=== PATIENT | male | born 1950 | race Caucasian/White ===

== ENCOUNTER 2017-07-16 15:14 | Inpatient (IN) | payer SELFPAY ==
[2017-07-16 15:39] VITALS: BMI 25.5
[2017-07-16] MEDS ORDERED: FOLIC ACID INJECTION - 1 MG, THIAMINE HCL 100 MG, MULTIVIT INJECTION ADULT 10 ML in SOD... IVPB ONE (16:18)
--- NOTE | 2017-07-16 16:27 | PDOC ---
History of Present Illness - General Chief Complaint: Substance Abuse Stated Complaint: INTOX Time Seen by Provider: 07/16/17 15:19 History Source: Patient, EMS Exam Limitations: No Limitations - History of Present Illness Initial Comments: 07/16/17 16:23 66-year-old male who denies past medical history except for alcohol abuse presents to the ED for evaluation of facial and head injury. Patient states has been drinking sleeping in a nearby park when he woke up this morning bleeding from his chin and his left side of his face. Patient states does not recall the incident and states unsure of his last tetanus. Patient states does not take any blood thinners and denies any headache, dizziness nausea, visual changes, or chest pain presently. Timing/Duration: unsure Severity: moderate Associated Symptoms: reports: denies symptoms Past History - Travel Traveled outside of the country in the last 30 days: No Close contact w/someone who was outside of country & ill: No - Past Medical History Allergies/Adverse Reactions: Allergies Allergy/AdvReac Type Severity Reaction Status Date / Time No Known Allergies Allergy Verified 07/16/17 15:34 Home Medications: Ambulatory Orders Unobtainable [Unobtainable] 07/16/17 Cardiac Disorders: Yes (cardiomegaly) HTN: Yes - Psycho/Social/Smoking Cessation Hx Suicidal Ideation: No Smoking History: Former smoker Have you smoked in the past 12 months: No Information on smoking cessation initiated: No Hx Alcohol Use: Yes Drug/Substance Use Hx: Yes (etoh) Substance Use Type: Alcohol Patient Lives Alone: Yes Lives with/in: lives alone Review of Systems - Review of Systems Able to Perform ROS?: Yes Constitutional: No: Symptoms Reported HEENTM: No: Symptoms Reported Respiratory: No: Symptoms reported Cardiac (ROS): No: Symptoms Reported ABD/GI: No: Symptoms Reported : No: Symptoms Reported Musculoskeletal: No: Symptoms Reported Integumentary: Yes: Other (cut to chin) Neurological: No: Symptoms reported Endocrine: No: Symptoms Reported Hematologic/Lymphatic: No: Symptoms Reported *Physical Exam - Vital Signs Last Vital Signs Temp Pulse Resp BP Pulse Ox 97.9 F 95 H 19 157/92 98 07/16/17 15:25 07/16/17 15:25 07/16/17 15:25 07/16/17 15:25 07/16/17 15:25 - Physical Exam General Appearance: Yes: Disheveled, Alcohol on Breath, Intoxicated. No: Apparent Distress HEENT: positive: EOMI, JESSICA, TMs Normal, Pharynx Normal (dry) Neck: positive: Supple Respiratory/Chest: positive: Lungs Clear, Normal Breath Sounds. negative: Respiratory Distress, Accessory Muscle Use Cardiovascular: positive: Regular Rhythm, Regular Rate. negative: Murmur Gastrointestinal/Abdominal: positive: Soft. negative: Tenderness Musculoskeletal: negative: Vertebral Tenderness Extremity: positive: Normal Capillary Refill, Normal Range of Motion. negative : Normal Inspection (abrasion to bilateral knees), Tender Integumentary: positive: Swelling, Ecchymosis (to anterior aspects of bi patellas. no deformity, Lrom, or crepitus), Other (noted 3cm linear laceration under chin. Noted superficial laceration to lateral aspect of left eye. No crepitus or deformity. No entrapment.) Neurologic: positive: Fully Oriented, Alert, Motor Strength 5/5 Deep Tendon Reflexes: Knee (L): 2+, Knee (R): 2+ Procedures - Laceration/Wound Repair Face Wound Length: to 2.5 cm Wound Explored: clean Wound's Depth, Shape: superficial, linear Irrigated w/ Saline: Yes Betadine Prep: Yes Anesthesia: 1% Lidocaine Amount of Anesthetic (ccs): 2 Wound Repaired With: Sutures Suture Size/Type: 4:0 Number of Sutures: 4 (absorbable) Layer Closure: No ED Treatment Course - LABORATORY CBC & Chemistry Diagram: 07/19/17 06:15 07/19/17 06:15 - RADIOLOGY Radiology Studies Ordered: Category Date Time Status CERVICAL SPINE CT W/O CONTR [CT] Stat CT Scan 07/16/17 16:[address] W/O CONTRAST [CT] Stat CT Scan 07/16/17 16:[address] WITHOUT CONTRAST [CT] Stat CT Scan 07/16/17 16:17 Ordered CHEST X-RAY PORTABLE* [RAD] Stat Radiology 07/16/17 16:18 Ordered Medical Decision Making - Medical Decision Making 07/16/17 16:38 Intoxicated patient with no previous visit denies medical history presenting with facial and extremity injury which patient is unable to recall. Patient on exam is disheveled intoxicated and has no neuro changes. Patient was ordered for head, cervical, facial CT along with CBC, comp, magnesium, urinalysis urine drug toxicology, banana bag and tetanus. 07/16/17 18:04 Laboratory Tests 07/16/17 07/16/17 07/16/17 16:22 16:22 16:22 WBC 6.1 Hgb 13.5 Hct 39.3 Plt Count 90 L Neutrophils % 83.6 H Sodium 137 Potassium 4.4 Chloride 101 Carbon Dioxide 26 BUN 5 L Creatinine 0.9 Random Glucose 133 H Calcium 8.2 L AST 67 H ALT 41 Creatine Kinase 202 CK-MB (CK-2) 3.783 H Troponin I < 0.02 Urine Blood 2+ H Ur Leukocyte Esterase Negative Urine RBC <1 Urine WBC 1 Opiates Screen Methadone Screen Barbiturate Screen Phencyclidine Screen Ur Amphetamines Screen MDMA (Ecstasy) Screen Benzodiazepines Screen Cocaine Screen U Marijuana (THC) Screen 07/16/17 16:22 WBC Hgb Hct Plt Count Neutrophils % Sodium Potassium Chloride Carbon Dioxide BUN Creatinine Random Glucose Calcium AST ALT Creatine Kinase CK-MB (CK-2) Troponin I Urine Blood Ur Leukocyte Esterase Urine RBC Urine WBC Opiates Screen Negative Methadone Screen Negative Barbiturate Screen Negative Phencyclidine Screen Negative Ur Amphetamines Screen Negative MDMA (Ecstasy) Screen Negative Benzodiazepines Screen Negative Cocaine Screen Negative U Marijuana (THC) Screen Negative Chest x-ray shows no acute findings. Pt states normally goes to [facility] and was in a rehab for etoh a few months ago. 07/16/17 19:08 Lac repair done with Medical student without difficulty, Steve Navarrete. After completion of repair pt states pain to bilateral rib region. On exam tender from 3-5th ribs suzy anterior of MAL. Pt ordered for rib xray. Pt endorsed to PATTI Schaeffer to review CT reports. *DC/Admit/Observation/Transfer Diagnosis at time of Disposition: Abuse, drug or alcohol, Thrombocytopenia Withdrawal symptoms, alcohol Qualifiers: Complication of substance-induced condition: uncomplicated Qualified Code(s): F10.230 - Alcohol dependence with withdrawal, uncomplicated Head trauma Qualifiers: Encounter type: initial encounter Qualified Code(s): S09.90XA - Unspecified injury of head, initial encounter
[2017-07-16 16:36] LABS: BASOPHIL 0.2 % (0-2.0); EOSINOPHIL 0.1 % (0-4.5); MCHC 34.2 g/dl (32.0-35.9); MEAN CELL VOLUME 93.4 fl (80-96); MEAN PLT VOLUME 6.2 fl (7.5-11.1); NEUTROPHILS 83.6 % (42.8-82.8); PLATELET COUNT 90 K/MM3 (134-434); RDW 15.5 % (11.9-15.9); WHITE BLOOD COUNT 6.1 K/mm3 (4.0-10.0)
[2017-07-16 16:40] LABS: URINE APPEARANCE CLEAR; URINE BILIRUBIN NEGATIVE (NEGATIVE); URINE BLOOD 2+ (NEGATIVE); URINE COLOR STRAW; URINE GLUCOSE (UA) NEGATIVE (NEGATIVE); URINE KETONE NEGATIVE (NEGATIVE); URINE LEUK ESTERASE NEGATIVE (NEGATIVE); URINE NITRITE NEGATIVE (NEGATIVE); URINE PROTEIN NEGATIVE (NEGATIVE); URINE UROBILINOGEN NEGATIVE mg/dL (0.2-1.0)
[2017-07-16 16:59] LABS: URINE MARIJUANA THC NEGATIVE ng/ml (CUTOFF=50)
[2017-07-16 17:11] LABS: ALBUMIN 3.2 g/dl (3.4-5.0); ANION GAP 10 (8-16); CALCIUM 8.2 mg/dL (8.5-10.1); CO2 26 mmol/L (21-32); CREATININE 0.9 mg/dL (0.7-1.3); GLUCOSE,RANDOM 133 mg/dL (74-106); MAGNESIUM 2.2 mg/dL (1.8-2.4); SGOT/AST 67 U/L (15-37); SGPT/ALT 41 U/L (12-78)
[2017-07-16 17:16] LABS: ALK PHOS 66 U/L (45-117); BILIRUBIN,TOTAL 0.6 mg/dL (0.2-1.0); CPK 202 IU/L (39-308); TOT PROT 7.3 g/dl (6.4-8.2); TROPONIN I < 0.02 ng/ml (0.00-0.05)
[2017-07-16 17:56] LABS: URINE MUCUS RARE; URINE RBC <1 /hpf (0-3); URINE WBC 1 /hpf (3-5)
[2017-07-16] MEDS ORDERED: LORazepam 2 MG/ML SDV VIAL ONE (18:40)
[2017-07-16] MEDS ORDERED: chlordiazePOXIDE HCL 25 MG CAPSULE PO ONE (19:56)
[2017-07-16] MEDS ORDERED: chlordiazePOXIDE HCL 25 MG CAPSULE ONE (20:17)
--- NOTE | 2017-07-16 20:28 | PDOC ---
*Physical Exam - Vital Signs Last Vital Signs Temp Pulse Resp BP Pulse Ox 97.9 F 98 H 18 149/87 98 07/16/17 15:25 07/16/17 19:41 07/16/17 19:41 07/16/17 19:41 07/16/17 19:41 - Physical Exam General Appearance: Yes: Other (facial trauma) Respiratory/Chest: positive: Lungs Clear, Normal Breath Sounds Cardiovascular: positive: Regular Rhythm, Regular Rate Extremity: positive: Normal Capillary Refill, Normal Inspection, Normal Range of Motion, Other (abrasion to right knee) Neurologic: positive: Alert, Normal Mood/Affect, Other (breath smelling of alcohol) ED Treatment Course - LABORATORY CBC & Chemistry Diagram: 07/16/17 16:22 07/16/17 16:22 - ADDITIONAL ORDERS Additional order review: Laboratory Results 07/16/17 07/16/17 07/16/17 16:22 16:22 16:22 Sodium 137 Potassium 4.4 Chloride 101 Carbon Dioxide 26 Anion Gap 10 BUN 5 L Creatinine 0.9 Creat Clearance w eGFR > 60 Random Glucose 133 H Calcium 8.2 L Magnesium 2.2 Total Bilirubin 0.6 AST 67 H ALT 41 Alkaline Phosphatase 66 Creatine Kinase 202 Creatine Kinase Index 1.8 CK-MB (CK-2) 3.783 H Troponin I < 0.02 Total Protein 7.3 Albumin 3.2 L Urine Color Straw Urine Appearance Clear Urine pH 5.0 Ur Specific [place] <= 1.005 Urine Protein Negative Urine Glucose (UA) Negative Urine Ketones Negative Urine Blood 2+ H Urine Nitrite Negative Urine Bilirubin Negative Urine Urobilinogen Negative Ur Leukocyte Esterase Negative Urine RBC <1 Urine WBC 1 Urine Mucus Rare Opiates Screen Negative Methadone Screen Negative Barbiturate Screen Negative Phencyclidine Screen Negative Ur Amphetamines Screen Negative MDMA (Ecstasy) Screen Negative Benzodiazepines Screen Negative Cocaine Screen Negative U Marijuana (THC) Screen Negative 07/16/17 16:22 RBC 4.21 MCV 93.4 MCHC 34.2 RDW 15.5 MPV 6.2 L Neutrophils % 83.6 H Lymphocytes % 7.2 L Monocytes % 8.9 Eosinophils % 0.1 Basophils % 0.2 - Medications Given in the ED: ED Medications Discontinued Medications Generic Name Dose Route Start Last Admin Trade Name Freq PRN Reason Stop Dose Admin Chlordiazepoxide HCl 50 mg 07/16/17 19:56 07/16/17 20:20 Librium - PO 07/16/17 19:57 50 mg ONCE ONE Administration Lorazepam 1 mg 07/16/17 19:13 07/16/17 18:41 Ativan Injection - IVPUSH 07/16/17 19:14 1 mg ONCE ONE Administration Progress Note - Progress Note Progress Note: A: ETOH abuse; head trauma, thrombocytopenia P: cbc cmp troponin Medical Decision Making - Medical Decision Making 07/16/17 21:47 CT head : chronic subdural hematoma with midline changes discussed with Dr. Hoff. recommends no acute neurosurgical intervention at this time. 07/16/17 21:49 alcohol: 366: patient with "shakes" given librium 07/16/17 21:51 patient to be admitted for further management of care. 07/16/17 22:46 ribs : multiple left rib fractures 07/17/17 02:47 x- ray findings : fracture left 3rd through 6th ribs . there is a small left pneumothorax with basilar opacity which represent constusion or small effusion. there maybe a nondisplaced *DC/Admit/Observation/Transfer Diagnosis at time of Disposition: Abuse, drug or alcohol, Thrombocytopenia Withdrawal symptoms, alcohol Qualifiers: Complication of substance-induced condition: uncomplicated Qualified Code(s): F10.230 - Alcohol dependence with withdrawal, uncomplicated Head trauma Qualifiers: Encounter type: initial encounter Qualified Code(s): S09.90XA - Unspecified injury of head, initial encounter - Discharge Dispostion Admit: Yes
[2017-07-16] MEDS ORDERED: TETANUS AND DIPHTHERIA TOXOID 0.5 ML DISP.SYRIN IM ONE (22:05)
--- NOTE | 2017-07-16 22:07 | PN ---
Teaching Attending Note Name of Resident: Carlos Arzola ATTENDING PHYSICIAN STATEMENT I saw and evaluated the patient. I reviewed the resident's note and discussed the case with the resident. I agree with the resident's findings and plan as documented. SUBJECTIVE: 66 Yo M with pmhx of ETOH abuse who presents with facial and head injury. He had been asleep in a park overnight, when he woke up bleeding from his chin and L. face. He does not recall what happened. OBJECTIVE: Physical: VS: Vital Signs Period Temp Pulse Resp BP Sys/Jeff Pulse Ox Last 24 Hr 97.9 F 95-98 18-19 149-157/87-92 98-98 GEN:Dishevled male resting in bed, in NAD HEENT: L. Lower chin lac 2cm linear, L. eye sutured,, throat without erythema or exudates CARD: RRR S1, S2 RESP: CTAB, Tender to palpation L. Ribs ABD: BSX4, NTD to palpation EXT: - C/C/E CBCD WBC 6.1 K/mm3 (4.0-10.0) 07/16/17 16:22 RBC 4.21 M/mm3 (4.00-5.60) 07/16/17 16:22 Hgb 13.5 GM/dL (11.7-16.9) 07/16/17 16:22 Hct 39.3 % (35.4-49) 07/16/17 16:22 MCV 93.4 fl (80-96) 07/16/17 16:22 MCHC 34.2 g/dl (32.0-35.9) 07/16/17 16:22 RDW 15.5 % (11.9-15.9) 07/16/17 16:22 Plt Count 90 K/MM3 (134-434) L 07/16/17 16:22 MPV 6.2 fl (7.5-11.1) L 07/16/17 16:22 CMP Sodium 137 mmol/L (136-145) 07/16/17 16:22 Potassium 4.4 mmol/L (3.5-5.1) 07/16/17 16:22 Chloride 101 mmol/L (98-107) 07/16/17 16:22 Carbon Dioxide 26 mmol/L (21-32) 08/29/17 16:22 Anion Gap 10 (8-16) 07/16/17 16:22 BUN 5 mg/dL (7-18) L 07/16/17 16:22 Creatinine 0.9 mg/dL (0.7-1.3) 07/16/17 16:22 Creat Clearance w eGFR > 60 (>60) 07/16/17 16:22 Random Glucose 133 mg/dL (74-106) H 07/16/17 16:22 Calcium 8.2 mg/dL (8.5-10.1) L 07/16/17 16:22 Total Bilirubin 0.6 mg/dL (0.2-1.0) 07/16/17 16:22 AST 67 U/L (15-37) H 07/16/17 16:22 ALT 41 U/L (12-78) 07/16/17 16:22 Alkaline Phosphatase 66 U/L (45-117) 07/16/17 16:22 Total Protein 7.3 g/dl (6.4-8.2) 07/16/17 16:22 Albumin 3.2 g/dl (3.4-5.0) L 07/16/17 16:22 CARDIAC ENZYMES Creatine Kinase 202 IU/L (39-308) 07/16/17 16:22 Troponin I < 0.02 ng/ml (0.00-0.05) 07/16/17 16:22 CT HEAD- Small- Moderate Right Chronic Subdural Hematoma with midline changes C-Spine CT- No definate acute fracture, mild multifocal sinus mucosal thickening is seen more prominently within L. Maxillary Sinus, Facial Bones CT: No Acute Fracture CXR- Multiple L. Rib Fx and small l. pnuemo ASSESSMENT AND PLAN: 66 yo M with hx. of etoh abuse presented with facial lac and head injury, found to be intoxicated and to have chronic subdural hematoma 1.) ETOH Intoxication - Banana Bag - Thiamine/Folic Acid - Librium/CIWA protocol - Replete lytes - Detox Consult 2.) Chronic Subdural Hematoma - No Neurosx. Intervention as per ED discussion with Neurosx. 3.) Thrombocytopenia - Most likely from liver dz. - Trend 4.) Small Pneumothorax - Prelim read, with no shift - 02 and repeat CXR 5.) Dvt Ppx - Low Risk - SCD Place in [facility]
[2017-07-16 22:15] LABS: PLATELET ESTIMATE DECREASED (NORMAL)
[2017-07-16] MEDS ORDERED: DIPHTH,PERTUSS(ACELL),TET 0.5 ML DISP.SYRIN IM ONE (22:31)
[2017-07-16] MEDS ORDERED: HYDROmorphone HCL CARPU-JECT 1 MG/1 ML DISP.SYRIN IVPUSH ONE (23:50)
--- NOTE | 2017-07-17 00:20 | HP ---
CHIEF COMPLAINT: Generalized Pain PCP: Unknown HISTORY OF PRESENT ILLNESS: 66 year old M with PMH of ETOH abuse and HTN presented to the ED with generalized pain s/p facial injury and possible fall. Patient is a poor historian. Patient states he was unsure where he was, but he had been drinking heavily and was brought in to the ED via ambulance. He can not recall any events prior to coming to the ED. ER course was notable for: (1) Cbc- plts of 90, CMP- AST- 67, CK-MB- 3.783 (2) UA- 2+ blood, Utox- Alcohol-366.1 (3) Cervical CT- chronic c7-t1 fx, CT Head- Chronic subdural hematoma and mild midline shift Recent Travel: unsure PAST MEDICAL HISTORY: HTN PAST SURGICAL HISTORY: Eye surgery in 1991 for puncturing eye with screwdriver Social History: Smoking: Former smoker Alcohol: 8 16 oz beers/day Drugs: Denies Allergies No Known Allergies Allergy (Verified 07/16/17 15:34) HOME MEDICATIONS: Home Medications Medication Instructions Recorded Unobtainable [Unobtainable] 07/16/17 REVIEW OF SYSTEMS CONSTITUTIONAL: Absent: fever, chills, diaphoresis, generalized weakness, malaise, loss of appetite, weight change HEENT: Absent: rhinorrhea, nasal congestion, throat pain, throat swelling, difficulty swallowing, mouth swelling, ear pain, eye pain, visual changes CARDIOVASCULAR: Absent: chest pain, syncope, palpitations, irregular heart rate, lightheadedness , peripheral edema RESPIRATORY: Absent: cough, shortness of breath, dyspnea with exertion, orthopnea, wheezing, stridor, hemoptysis GASTROINTESTINAL: Absent: abdominal pain, abdominal distension, nausea, vomiting, diarrhea, constipation, melena, hematochezia GENITOURINARY: Absent: dysuria, frequency, urgency, hesitancy, hematuria, flank pain, genital pain MUSCULOSKELETAL: Absent: myalgia, arthralgia, joint swelling, back pain, neck pain SKIN: Absent: rash, itching, pallor HEMATOLOGIC/IMMUNOLOGIC: Absent: easy bleeding, easy bruising, lymphadenopathy, frequent infections ENDOCRINE: Absent: unexplained weight gain, unexplained weight loss, heat intolerance, cold intolerance NEUROLOGIC: Absent: headache, focal weakness or paresthesias, dizziness, unsteady gait, seizure, mental status changes, bladder or bowel incontinence PSYCHIATRIC: Absent: anxiety, depression, suicidal or homicidal ideation, hallucinations. PHYSICAL EXAMINATION Vital Signs - 24 hr 07/16/17 22:40 Pulse Rate [ 92 H Apical] Respiratory 18 Rate Blood Pressure 136/76 [Right Arm] O2 Sat by Pulse 97 Oximetry (%) GENERAL: Patient appears disheveled, in bed laying uncomfortably. Awake, alert, and oriented x2. HEAD: Normal with abrasions to face and chin EYES: Extraocular movements intact, sclera anicteric, conjunctiva clear. No lid lag. Ecchymosis over left eye EARS, NOSE, THROAT: Ears normal, nares patent, oropharynx clear without exudates. NECK: Normal range of motion, supple without lymphadenopathy, JVD, or masses. LUNGS: Breath sounds equal, clear to auscultation bilaterally. No wheezes, and no crackles. No accessory muscle use. HEART: Regular rate and rhythm, normal S1 and S2 without murmur, rub or gallop. MUSCULOSKELETAL: Normal range of motion at all joints. No bony deformities or tenderness. No CVA tenderness. UPPER EXTREMITIES: 2+ pulses, warm, well-perfused. No cyanosis. No clubbing. No peripheral edema. LOWER EXTREMITIES: 2+ pulses, warm, well-perfused. No calf tenderness. No peripheral edema. right knee abrasion. Feet covered in mud and toenails missing. NEUROLOGICAL: Cranial nerves II-XII intact. Normal speech. Normal gait. PSYCHIATRIC: Cooperative. Good eye contact. Patient's breath smells of alcohol SKIN: Warm, dry, normal turgor, no rashes or lesions noted, normal capillary refill. Laboratory Last Values WBC 6.1 K/mm3 (4.0-10.0) 07/16/17 16:22 RBC 4.21 M/mm3 (4.00-5.60) 07/16/17 16:22 Hgb 13.5 GM/dL (11.7-16.9) 07/16/17 16:22 Hct 39.3 % (35.4-49) 07/16/17 16:22 MCV 93.4 fl (80-96) 07/16/17 16:22 MCH 32.0 pg (25.7-33.7) 07/16/17 16:22 MCHC 34.2 g/dl (32.0-35.9) 07/16/17 16:22 RDW 15.5 % (11.9-15.9) 07/16/17 16:22 Plt Count 90 K/MM3 (134-434) L 07/16/17 16:22 MPV 6.2 fl (7.5-11.1) L 07/16/17 16:22 Neutrophils % 83.6 % (42.8-82.8) H 07/16/17 16:22 Lymphocytes % 7.2 % (8-40) L 07/16/17 16:22 Monocytes % 8.9 % (3.8-10.2) 07/16/17 16:22 Eosinophils % 0.1 % (0-4.5) 07/16/17 16:22 Basophils % 0.2 % (0-2.0) 07/16/17 16:22 Platelet Estimate Decreased (NORMAL) 07/16/17 16:22 RBC Morphology Appears normal 07/16/17 16:22 Sodium 137 mmol/L (136-145) 07/16/17 16:22 Potassium 4.4 mmol/L (3.5-5.1) 07/16/17 16:22 Chloride 101 mmol/L (98-107) 07/16/17 16:22 Carbon Dioxide 26 mmol/L (21-32) 07/16/17 16:22 Anion Gap 10 (8-16) 07/16/17 16:22 BUN 5 mg/dL (7-18) L 07/16/17 16:22 Creatinine 0.9 mg/dL (0.7-1.3) 07/16/17 16:22 Creat Clearance w eGFR > 60 (>60) 07/16/17 16:22 Random Glucose 133 mg/dL (74-106) H 07/16/17 16:22 Calcium 8.2 mg/dL (8.5-10.1) L 07/16/17 16:22 Magnesium 2.2 mg/dL (1.8-2.4) 07/16/17 16:22 Total Bilirubin 0.6 mg/dL (0.2-1.0) 07/16/17 16:22 AST 67 U/L (15-37) H 07/16/17 16:22 ALT 41 U/L (12-78) 07/16/17 16:22 Alkaline Phosphatase 66 U/L (45-117) 07/16/17 16:22 Creatine Kinase 202 IU/L (39-308) 07/16/17 16:22 Creatine Kinase Index 1.8 % (0.0-5.0) 07/16/17 16:22 CK-MB (CK-2) 3.783 ng/mL (0.5-3.6) H 07/16/17 16:22 Troponin I < 0.02 ng/ml (0.00-0.05) 07/16/17 16:22 Total Protein 7.3 g/dl (6.4-8.2) 07/16/17 16:22 Albumin 3.2 g/dl (3.4-5.0) L 07/16/17 16:22 Urine Color Straw 07/16/17 16:22 Urine Appearance Clear 07/16/17 16:22 Urine pH 5.0 (5.0-8.0) 07/16/17 16:22 Ur Specific [place] <= 1.005 (1.005-1.025) 07/16/17 16:22 Urine Protein Negative (NEGATIVE) 07/16/17 16:22 Urine Glucose (UA) Negative (NEGATIVE) 07/16/17 16:22 Urine Ketones Negative (NEGATIVE) 07/16/17 16:22 Urine Blood 2+ (NEGATIVE) H 07/16/17 16:22 Urine Nitrite Negative (NEGATIVE) 07/16/17 16:22 Urine Bilirubin Negative (NEGATIVE) 07/16/17 16:22 Urine Urobilinogen Negative mg/dL (0.2-1.0) 07/16/17 16:22 Ur Leukocyte Esterase Negative (NEGATIVE) 07/16/17 16:22 Urine RBC <1 /hpf (0-3) 07/16/17 16:22 Urine WBC 1 /hpf (3-5) 07/16/17 16:22 Urine Mucus Rare 07/16/17 16:22 Opiates Screen Negative ng/ml (HEUHUF=257) 07/16/17 16:22 Methadone Screen Negative ng/ml (GKDQRP=564) 07/16/17 16:22 Barbiturate Screen Negative ng/ml (UMLYDW=207) 07/16/17 16:22 Phencyclidine Screen Negative ng/ml (CUTOFF=25) 07/16/17 16:22 Ur Amphetamines Screen Negative ng/ml (HCRFUR=747) 07/16/17 16:22 MDMA (Ecstasy) Screen Negative ng/ml (FHNFWH=910) 07/16/17 16:22 Benzodiazepines Screen Negative ng/ml (EXUAXI=066) 07/16/17 16:22 Cocaine Screen Negative ng/ml (VMKXNH=153) 07/16/17 16:22 U Marijuana (THC) Screen Negative ng/ml (CUTOFF=50) 07/16/17 16:22 Alcohol, Quantitative 366.1 mg/dl (0-5) H* 07/16/17 19:14 ASSESSMENT/PLAN: 66 y.o. M with pmh of ETOH abuse and HTN presenting with generalized pain, facial injury, and chest injury admitted for acute alcohol intoxication. #Acute alcohol intoxication -Patient received banana bag -Continue Thiamine/Folic acid from tomorrow -CIWA- 14, Start Librium protocol tomorrow @11:00 -[place] [facility] Consult, Dr. Krzysztof Recio -Monitor electrolytes and glucose #Chronic subdural hematoma with mild midline shift -Found on CT -Neurosurgery consulted, no intervention recommended per ED #Acute Rib Fractures with small pneumothorax -Rib X-ray reveals multiple fx with small pneumothorax -Repeat CXR in the AM -Pain control, 0.5 mg iv dilaudid and IV tylenol 1000 mg -Continue to monitor -2L O2 NC, maintain O2% >92 #FEN/GI -No fluids -wnl -Sodium controlled diet #PPx -Dvt- scds -GI- none Visit type - Emergency Visit Emergency Visit: Yes ED Registration Date: 07/16/17 Care time: The patient presented to the Emergency Department on the above date and was hospitalized for further evaluation of their emergent condition. - New Patient This patient is new to me today: Yes Date on this admission: 07/18/17 - Critical Care Critical Care patient: No
[2017-07-17] MEDS ORDERED: HYDROmorphone HCL CARPU-JECT 1 MG/1 ML DISP.SYRIN ONE (01:15)
[2017-07-17] MEDS ORDERED: ACETAMINOPHEN 1000 MG/100 ML VIAL (NON FORMULARY) IVPB ONE (02:14)
--- NOTE | 2017-07-17 05:42 | MSN ---
Admitting History and Physical - Admission Chief Complaint: Generalized Pain History of Present Illness: Pt is a 66 year old male with a PMH of EtOH abuse and HTN who was brought to the ED by ambulance after being found on the ground. Pt is a poor historian. He endorses chest pain and diffuse abdominal pain, but cannot remember if he fell. Pt was drinking before he was found. History Source: Patient Limitations to Obtaining History: Intoxication, Poor Historian - Past Medical History Cardiovascular: Yes: HTN - Past Surgical History Additional Past Surgical History: Pt states he had eye surgery in 1991 after puncturing his eye with a screwdriver - Smoking History Smoking history: Former smoker Have you smoked in the past 12 months: No - Alcohol/Substance Use Hx Alcohol Use: Yes Number of Drinks Daily: 8 (He states he drinks about 8 16oz drinks per day) - Social History Usual Living Arrangement: Yes: Alone ADL: Independent Home Medications - Allergies Allergies/Adverse Reactions: Allergies Allergy/AdvReac Type Severity Reaction Status Date / Time No Known Allergies Allergy Verified 07/16/17 15:34 - Home Medications Home Medications: Ambulatory Orders Unobtainable [Unobtainable] 07/16/17 Family Disease History - Family Disease History Family History: Unable to Obtain Review of Systems - Review of Systems Constitutional: denies: Chills, Diaphoresis, Fever HENT: denies: Difficult Swallowing Cardiovascular: reports: Chest Pain. denies: Edema Respiratory: denies: Cough, Orthopnea, SOB, SOB on Exertion, Wheezing Gastrointestinal: reports: Abdominal Pain Physical Examination Vital Signs: Vital Signs Temperature 98.5 F 07/17/17 02:38 Pulse Rate 97 H 07/17/17 02:38 Respiratory Rate 18 07/17/17 02:38 Blood Pressure 116/67 07/17/17 02:38 O2 Sat by Pulse Oximetry (%) 98 07/17/17 02:38 Constitutional: Yes: Mild Distress, Poor Hygeine Eyes: Yes: Conjunctiva Clear, EOM Intact. No: Sclera Icterus HENT: Yes: Normocephalic, Other (injuries to the face and chin) Neck: Yes: WNL Cardiovascular: Yes: Regular Rate and Rhythm, S1, S2. No: Gallop, Murmur, Rub Respiratory: Yes: Regular, CTA Bilaterally (Listened to patient anteriorly. Could not have the patient sit up to listen to his lungs posteriorly) Gastrointestinal: Yes: Normal Bowel Sounds, Soft ...Rectal Exam: Yes: Deferred Renal/: No: CVA Tenderness - Left, CVA Tenderness - Right Musculoskeletal: No: Muscle Pain, Muscle Weakness Edema: No Peripheral Pulses WNL: Yes Peripheral Pulses: Left Radial: 2+, Right Radial: 2+, Left Doralis Pedis: 2+, Right Dorsalis Pedis: 2+ Integumentary: Yes: Other (Several lacerations to the face) Neurological: Yes: Alert, Oriented (Oriented to person and place (he knew he was in a hospital but did not know which one), did not know the date.), Tremors (most noticeable in R arm when trying to hold his arms up) ...Motor Strength: WNL Psychiatric: Yes: Alert, Oriented (Oriented to person and place (he knew he was in a hospital but did not know which one), did not know the date.) Labs: Laboratory Last Values WBC 6.1 K/mm3 (4.0-10.0) 07/16/17 16:22 RBC 4.21 M/mm3 (4.00-5.60) 07/16/17 16:22 Hgb 13.5 GM/dL (11.7-16.9) 07/16/17 16:22 Hct 39.3 % (35.4-49) 07/16/17 16:22 MCV 93.4 fl (80-96) 07/16/17 16:22 MCH 32.0 pg (25.7-33.7) 07/16/17 16:22 MCHC 34.2 g/dl (32.0-35.9) 07/16/17 16:22 RDW 15.5 % (11.9-15.9) 07/16/17 16:22 Plt Count 90 K/MM3 (134-434) L 07/16/17 16:22 MPV 6.2 fl (7.5-11.1) L 07/16/17 16:22 Neutrophils % 83.6 % (42.8-82.8) H 07/16/17 16:22 Lymphocytes % 7.2 % (8-40) L 07/16/17 16:22 Monocytes % 8.9 % (3.8-10.2) 07/16/17 16:22 Eosinophils % 0.1 % (0-4.5) 07/16/17 16:22 Basophils % 0.2 % (0-2.0) 07/16/17 16:22 Platelet Estimate Decreased (NORMAL) 07/16/17 16:22 RBC Morphology Appears normal 07/16/17 16:22 Sodium 137 mmol/L (136-145) 07/16/17 16:22 Potassium 4.4 mmol/L (3.5-5.1) 07/16/17 16:22 Chloride 101 mmol/L (98-107) 07/16/17 16:22 Carbon Dioxide 26 mmol/L (21-32) 07/16/17 16:22 Anion Gap 10 (8-16) 07/16/17 16:22 BUN 5 mg/dL (7-18) L 07/16/17 16:22 Creatinine 0.9 mg/dL (0.7-1.3) 07/16/17 16:22 Creat Clearance w eGFR > 60 (>60) 07/16/17 16:22 Random Glucose 133 mg/dL (74-106) H 07/16/17 16:22 Calcium 8.2 mg/dL (8.5-10.1) L 07/16/17 16:22 Magnesium 2.2 mg/dL (1.8-2.4) 07/16/17 16:22 Total Bilirubin 0.6 mg/dL (0.2-1.0) 07/16/17 16:22 AST 67 U/L (15-37) H 07/16/17 16:22 ALT 41 U/L (12-78) 07/16/17 16:22 Alkaline Phosphatase 66 U/L (45-117) 07/16/17 16:22 Creatine Kinase 202 IU/L (39-308) 07/16/17 16:22 Creatine Kinase Index 1.8 % (0.0-5.0) 07/16/17 16:22 CK-MB (CK-2) 3.783 ng/mL (0.5-3.6) H 07/16/17 16:22 Troponin I < 0.02 ng/ml (0.00-0.05) 07/16/17 16:22 Total Protein 7.3 g/dl (6.4-8.2) 07/16/17 16:22 Albumin 3.2 g/dl (3.4-5.0) L 07/16/17 16:22 Urine Color Straw 07/16/17 16:22 Urine Appearance Clear 07/16/17 16:22 Urine pH 5.0 (5.0-8.0) 07/16/17 16:22 Ur Specific [place] <= 1.005 (1.005-1.025) 07/16/17 16:22 Urine Protein Negative (NEGATIVE) 07/16/17 16:22 Urine Glucose (UA) Negative (NEGATIVE) 07/16/17 16:22 Urine Ketones Negative (NEGATIVE) 07/16/17 16:22 Urine Blood 2+ (NEGATIVE) H 07/16/17 16:22 Urine Nitrite Negative (NEGATIVE) 07/16/17 16:22 Urine Bilirubin Negative (NEGATIVE) 07/16/17 16:22 Urine Urobilinogen Negative mg/dL (0.2-1.0) 07/16/17 16:22 Ur Leukocyte Esterase Negative (NEGATIVE) 07/16/17 16:22 Urine RBC <1 /hpf (0-3) 07/16/17 16:22 Urine WBC 1 /hpf (3-5) 07/16/17 16:22 Urine Mucus Rare 07/16/17 16:22 Opiates Screen Negative ng/ml (GEPDYD=868) 07/16/17 16:22 Methadone Screen Negative ng/ml (TGYNUQ=344) 07/16/17 16:22 Barbiturate Screen Negative ng/ml (TAXHOU=849) 07/16/17 16:22 Phencyclidine Screen Negative ng/ml (CUTOFF=25) 07/16/17 16:22 Ur Amphetamines Screen Negative ng/ml (RATUFI=396) 07/16/17 16:22 MDMA (Ecstasy) Screen Negative ng/ml (ICJWDC=934) 07/16/17 16:22 Benzodiazepines Screen Negative ng/ml (PXKYXZ=804) 07/16/17 16:22 Cocaine Screen Negative ng/ml (QYVIZV=728) 07/16/17 16:22 U Marijuana (THC) Screen Negative ng/ml (CUTOFF=50) 07/16/17 16:22 Alcohol, Quantitative 366.1 mg/dl (0-5) H* 07/16/17 19:14 Imaging - Results Chest X-ray: Image Reviewed Cat Scan: Report Reviewed Assessment/Plan Pt is a 66 year old male with a PMH of EtOH abuse and HTN who presented after a night of heavy drinking with facial wounds and generalized pain. 1) Acute EtOH intoxication * CIWA score 14 * Start Thiamin, multivitamin, folate (banana bag) * Start Librium protocol in the morning * Consult Detox * Monitor electrolytes and glucose 2) Multiple acute rib fractures on the left * Pain control with 0.5mg IV diluadid and 1000mg IV tylenol * Repeat CXR in the AM * Continue to monitor * 2L O2 NC, maintain O2%>92 3) Chronic C7-T1 fracture * Found on CT- not symptomatic * Consult neurology 4) Chronic subdural hematoma with mild midline shift * Found on CT- not symptomatic * Consulted neurosurgery, no intervention recommended per ED 5) HTN * Hx self reported * When pts mental status improves will ask about home meds and pharmacy again * Continue to monitor 5) FEN * Fluids: None * Electrolytes: WNL * Nutrition: Sodium controlled diet 6)Prophylaxis * DVT: SCDs * GI: none indicated at this time * Deconditioning: consider PT when no longer intoxicated 7) Dispo * Admit to med-surg * F/u CXR in AM
--- NOTE | 2017-07-17 07:33 | PN ---
Physical Exam: SUBJECTIVE: Patient seen and examined at bed side. He was admitted over night for alcohol intoxication , s/p facial injury possible fall. He is AAO x 3 compare to AA x2 last night. he complains of left chest pain due to rib fracture. he reports sever tremors in his hands. He denies headache,fever, chills, N/V/D/C OBJECTIVE: Vital Signs Period Temp Pulse Resp BP Sys/Jeff Pulse Ox Last 24 Hr 97.9 F-98.5 F 86-97 18-20 107-136/62-76 97-98 GENERAL: The patient is awake, alert, and fully oriented, in mild distress. HEAD: Normal with no signs of trauma. EYES: PERRL, extraocular movements intact, sclera anicteric, conjunctiva clear. No ptosis. Horizontal Nystagmus. ENT: moist mucous membranes. NECK: Trachea midline, full range of motion, supple. LUNGS: Breath sounds equal, clear to auscultation bilaterally, no wheezes, no crackles, no accessory muscle use.very sensitive to palpation on left side due to rib fracture. HEART: Regular rate and rhythm, S1, S2 without murmur, rub or gallop. ABDOMEN: Soft, nontender, nondistended, normoactive bowel sounds, no guarding, no rebound, no hepatosplenomegaly, no masses. EXTREMITIES: 2+ pulses, warm, well-perfused, no edema. NEUROLOGICAL: Cranial nerves II through XII grossly intact. Normal speech, gait not observed. Alcohol withdrawal tremor B/L hands. PSYCH: Normal mood, normal affect. SKIN: Warm, dry, normal turgor, no rashes or lesions noted Active Medications Generic Name Dose Route Start Last Admin Trade Name Freq PRN Reason Stop Dose Admin Chlordiazepoxide HCl 25 mg 07/16/17 23:48 Librium - PO 07/19/17 23:47 Q4H PRN WITHDRAWAL(CONT SUBST) Chlordiazepoxide HCl 50 mg 07/17/17 11:00 Librium - PO 07/18/17 05:01 [id number] KINGS Chlordiazepoxide HCl 25 mg 07/18/17 11:00 Librium - PO 07/19/17 05:01 [id number] KINGS Chlordiazepoxide HCl 15 mg 07/19/17 11:00 Librium - PO 07/20/17 05:01 [id number] KINGS Folic Acid 1 mg 07/17/17 10:00 Folic Acid - PO DAILY KINGS Thiamine HCl 100 mg 07/17/17 10:00 Vitamin B1 - PO DAILY KINGS CT HEAD- Small- Moderate Right Chronic Subdural Hematoma with midline changes C-Spine CT- No definate acute fracture, mild multifocal sinus mucosal thickening is seen more prominently within L. Maxillary Sinus, Facial Bones CT: No Acute Fracture CXR- Multiple L. Rib Fx and small l. pnuemo ASSESSMENT/PLAN: 66 yo M with hx. of Alcohol abuse and HTN presented with facial lac and head injury, chest injury, found to be intoxicated and to have chronic subdural hematoma 1.) ETOH Intoxication * Etoh level 366.1 * Banana Bag * Thiamine 100 mg Po daily/Folic Acid 1mg PO daily * Librium/CIWA 14 protocol * Replete lytes * Detox Consult- rehab ,Dr. Krzysztof Recio * F/U cbc, CMP * * 2.) Chronic Subdural Hematoma with mild midline shift * No Neuro sx. * No Intervention is needed at this time per Neurosx. 3.) Thrombocytopenia liley 2/2 liver disease * Plt 90 * F/U cbc 4.) Small Pneumothorax 2/2 rib fracture * Prelim read, with no shift * 02 NC with o2 sat > 92 % * repeat CXR * Pain control: 10 mg oxycodone IV Q4hr PRN 5) H/O HTN * BP 134/77 * Monitor BP * Verify home meds 6) Dvt Ppx * Low Risk, SCD * GI : Protonix 40 mg Daily 7)FEN * No fluids * WNL * Sodium controlled diet
[2017-07-17] MEDS ORDERED: chlordiazePOXIDE HCL 25 MG CAPSULE PO ONE (07:50)
[2017-07-17 07:52] LABS: BASOPHIL 0.2 % (0-2.0); EOSINOPHIL 0.1 % (0-4.5); MCH 31.9 pg (25.7-33.7); MCHC 34.2 g/dl (32.0-35.9); MEAN CELL VOLUME 93.3 fl (80-96); MEAN PLT VOLUME 6.5 fl (7.5-11.1); NEUTROPHILS 82.5 % (42.8-82.8); PLATELET COUNT 72 K/MM3 (134-434); RDW 15.6 % (11.9-15.9); WHITE BLOOD COUNT 6.3 K/mm3 (4.0-10.0)
[2017-07-17] MEDS ORDERED: ACETAMINOPHEN 325 MG TABLET (FP) PO PRN (08:10)
[2017-07-17] MEDS ORDERED: oxyCODONE HCL 5 MG TABLET PO PRN (08:10)
[2017-07-17] MEDS ORDERED: oxyCODONE HCL 5 MG TABLET PO ONE ×2 (08:15→20:59)
[2017-07-17] MEDS ORDERED: ACETAMINOPHEN 325 MG TABLET (FP) PO ONE (08:15)
[2017-07-17 08:37] LABS: ALBUMIN 2.9 g/dl (3.4-5.0); ALK PHOS 60 U/L (45-117); ANION GAP 13 (8-16); CALCIUM 7.9 mg/dL (8.5-10.1); CO2 22 mmol/L (21-32); CREATININE 0.8 mg/dL (0.7-1.3); GLUCOSE,RANDOM 128 mg/dL (74-106); MAGNESIUM 1.9 mg/dL (1.8-2.4); SGOT/AST 40 U/L (15-37); SGPT/ALT 32 U/L (12-78); TOT PROT 6.5 g/dl (6.4-8.2)
[2017-07-17] MEDS: chlordiazePOXIDE HCL 25 MG CAPSULE PO PRN ×3 (09:38→20:08)
[2017-07-17] MEDS: FOLIC ACID 1 MG TABLET (FP) PO SCH (10:20)
[2017-07-17] MEDS: THIAMINE HCL 100 MG TABLET (FP) PO SCH (10:20)
[2017-07-17] MEDS: chlordiazePOXIDE HCL 25 MG CAPSULE PO SCH ×3 (11:00→22:35)
--- NOTE | 2017-07-17 11:54 | EKG ---
Test Reason : Blood Pressure : / mmHG Vent. Rate : 077 BPM Atrial Rate : 077 BPM P-R Int : 172 ms QRS Dur : 090 ms QT Int : 394 ms P-R-T Axes : 043 -23 -02 degrees QTc Int : 445 ms NORMAL SINUS RHYTHM NORMAL ECG NO PREVIOUS ECGS AVAILABLE Confirmed by JOSUE EMERY, LAISHA ([id number]) on 07/17/2017 11:53:44 AM Referred By: Confirmed By:LAISHA SALAS MD
--- NOTE | 2017-07-17 12:20 | PN ---
Teaching Attending Note Name of Resident: Dominick Kasper ATTENDING PHYSICIAN STATEMENT I saw and evaluated the patient. I reviewed the resident's note and discussed the case with the resident. I agree with the resident's findings and plan as documented. SUBJECTIVE: Patient is tremulous. He complains of left rib pain. OBJECTIVE: Vital Signs Period Temp Pulse Resp BP Sys/Jeff Pulse Ox Last 24 Hr 97.9 F-98.5 F 86-100 18-20 107-157/62-92 96-98 HEART: S1S2, tachycardic LUNGS: Clear ABDOMEN: Soft, non-tender, non-distended, normal BS EXTREMITIES: No edema NEUROLOGICAL: Alert, oriented, tremulous, no focal deficits Current Medications Generic Name Dose Route Start Last Admin Trade Name Freq PRN Reason Stop Dose Admin Chlordiazepoxide HCl 25 mg 07/16/17 23:48 07/17/17 13:42 Librium - PO 07/19/17 23:47 25 mg Q4H PRN Administration WITHDRAWAL(CONT SUBST) Chlordiazepoxide HCl 50 mg 07/17/17 11:00 07/17/17 17:15 Librium - PO 07/18/17 05:01 50 mg [id number] KINGS Administration Chlordiazepoxide HCl 25 mg 07/18/17 11:00 Librium - PO 07/19/17 05:01 [id number] KINGS Chlordiazepoxide HCl 15 mg 07/19/17 11:00 Librium - PO 07/20/17 05:01 [id number] KINGS Folic Acid 1 mg 07/17/17 10:00 07/17/17 10:20 Folic Acid - PO 1 mg DAILY KINGS Administration Oxycodone HCl 5 mg 07/17/17 17:33 Roxicodone - PO Q4H PRN PAIN 6-10 Pantoprazole Sodium 40 mg 07/17/17 13:45 07/17/17 14:48 Protonix - PO 40 mg DAILY KINGS Administration Thiamine HCl 100 mg 07/17/17 10:00 07/17/17 10:20 Vitamin B1 - PO 100 mg DAILY KINGS Administration ASSESSMENT AND PLAN: This is a 66 year old man with a history of alcohol abuse, HTN who presented to the ER with generalized pain. 1. Acute alcohol intoxication 2. Alcohol withdrawal, uncomplicated - Continue Librium detox 3. Continuous alcohol dependence - Continue thiamine, folic acid - Patient interested in rehab 4. Chronic right subdural hematoma - Neurosurgery consult appreciated - No neurosurgical intervention indicated 5. Multiple left rib fractures with small pneumothorax - Pain control - Incentive spirometer - Follow-up CXR 6. HTN - On no medication 7. Facial laceration - Sutured in ER 8. Thrombocytopenia - Secondary to alcohol use
--- NOTE | 2017-07-17 13:48 | CONSULT ---
Consult - text type - Consultation Consultation Note: Asked to see this 66 year old patient who sustained a fall with injuries yesterday. CT head reveals a chronic Right SDH without any suggestion of acute or subacute blood. Patient has mild mass effect, however, has substantial atrophy which mitigates the pressure exerted upon the brain. Patient is awake and interactive and I discussed the nature of this chronic finding and explained that it may become symptomatic in the future. At this point, no acute Neurosurgical intervention is indicated and no routine follow-up is planned.
[2017-07-17] MEDS: PANTOPRAZOLE 40 MG TABLET (FP) PO SCH (14:48)
--- NOTE | 2017-07-17 17:52 | CONSULT ---
Consult Detox [facility] Reason for Current Admission/Consult: pt with longstanding h/o chronic alcoholism requiring detox. - History History of Present Illness: 66 y/o m pt with h/o chronic alcoholism fell and sustained multiple injuries to head, face and left ribs. Pt requiring hospitalization . - History Source History Provided By: Patient Limitations to Obtaining History: No Limitations - Alcohol/Substance Use Hx Alcohol Use: Yes (beer; Tequila ) Hx Substance Use: Yes (cannabis ) [facility] - Current Drug/Alcohol Use Alcohol Route: Oral Frequency: Daily Amount used: beer 8-10 cans /d ;tequila 1/2 pt few times /week Age of first use: 11 Date of Last Use: 07/16/17 - Past Medical History Cardio/Vascular: Yes: HTN Musculoskeletal: Yes: Other (left rib pain ) Additional Medical History: chronic alcoholism with multiple detox and rehabs in the past.most recent at [facility] x 12 months - states he began drinking immediately after d/c . - Significant Medical Findings: 66 y/o m pt lying in bed with nasal cannula in nad , AOX2 , (recalls month year but not date) cooperative . skin anicteric, moist left facial sutures eyes anicteric , perrl, eom intact oral moist , teeth in poor repair mild tremor no hallucinations CIWA Score - CIWA Score Nausea/Vomitin-Mild Nausea/No Vomiting Muscle Tremors: 3 Anxiety: 1-Mildly Anxious Agitation: 1-Slight > Activity Paroxysmal Sweats: 2 Orientation: 0-Oriented Tacttile Disturbances: 2-Mild Itch/Numbness/Burn Auditory Disturbances: 0-None Visual Disturbances: 0-None Headache: 0-None Present CIWA-Ar Total Score: 10 Assessment Plan - Plan Plan: DX: chronic alcoholism requiring detox with librium protocol- alcohol level in ED 366.1 on admission. multiple injuries thrombocytopenia plan: detox with librium protocol prn librium for sign sx's of detox Pt states he will go to [facility] once he is detoxed and d/c'ed continue thiamine 100mg /d continue folic acid 1mg /d - Medication Detox Regimen/Protocol: Librium
[2017-07-17] MEDS: oxyCODONE HCL 5 MG TABLET PO PRN ×2 (18:32→22:34)
[2017-07-18] MEDS: chlordiazePOXIDE HCL 25 MG CAPSULE PO SCH ×4 (06:00→23:54)
[2017-07-18] MEDS: oxyCODONE HCL 5 MG TABLET PO PRN ×4 (06:24→18:58)
--- NOTE | 2017-07-18 08:10 | PN ---
Physical Exam: SUBJECTIVE: Patient seen and examined at bed side. No acute events over night. He had some confusion but he is full oriented today morning. He still complain of left chest pain due to rib fracture but improved compare to yesterday . Hand tremor is better today. He denies Headache , blurry vision, N/V/D/C. OBJECTIVE: Vital Signs Period Temp Pulse Resp BP Sys/Jeff Pulse Ox Last 24 Hr 97.9 F-98.8 F 90-114 16-20 134-157/77-86 96-96 GENERAL: The patient is awake, alert, and fully oriented, in no acute distress. HEAD: Normal with no signs of trauma. EYES: PERRL, extraocular movements intact, sclera anicteric, conjunctiva clear. No ptosis. ENT: Ears normal, nares patent, oropharynx clear without exudates, moist mucous membranes. NECK: Trachea midline, full range of motion, supple. LUNGS: Breath sounds equal, clear to auscultation bilaterally, no wheezes, no crackles, no accessory muscle use. HEART: Regular rate and rhythm, S1, S2 without murmur, rub or gallop. ABDOMEN: Soft, nontender, nondistended, normoactive bowel sounds, no guarding, no rebound, no hepatosplenomegaly, no masses. EXTREMITIES: 2+ pulses, warm, well-perfused, no edema. NEUROLOGICAL: Cranial nerves II through XII grossly intact. Normal speech, gait not observed. PSYCH: Normal mood, normal affect. SKIN: Warm, dry, normal turgor, no rashes or lesions noted Laboratory Results - last 24 hr 07/17/17 07:40 Sodium 139 Potassium 3.9 Chloride 104 Carbon Dioxide 22 Anion Gap 13 BUN 6 L Creatinine 0.8 Creat Clearance w eGFR > 60 Random Glucose 128 H Calcium 7.9 L Phosphorus 3.0 Magnesium 1.9 Total Bilirubin 1.0 D AST 40 H D ALT 32 D Alkaline Phosphatase 60 Total Protein 6.5 Albumin 2.9 L Active Medications Generic Name Dose Route Start Last Admin Trade Name Freq PRN Reason Stop Dose Admin Chlordiazepoxide HCl 25 mg 07/16/17 23:48 07/17/17 20:08 Librium - PO 07/19/17 23:47 25 mg Q4H PRN Administration WITHDRAWAL(CONT SUBST) Chlordiazepoxide HCl 25 mg 07/18/17 11:00 Librium - PO 07/19/17 05:01 [id number] KINGS Chlordiazepoxide HCl 15 mg 07/19/17 11:00 Librium - PO 07/20/17 05:01 [id number] KINGS Chlordiazepoxide HCl 10 mg 07/20/17 11:00 Librium - PO 07/21/17 00:01 [id number] KINGS Folic Acid 1 mg 07/17/17 10:00 07/17/17 10:20 Folic Acid - PO 1 mg DAILY KINGS Administration Oxycodone HCl 5 mg 07/17/17 17:33 07/18/17 06:24 Roxicodone - PO 5 mg Q4H PRN Administration PAIN 6-10 Pantoprazole Sodium 40 mg 07/17/17 13:45 07/17/17 14:48 Protonix - PO 40 mg DAILY KINGS Administration Thiamine HCl 100 mg 07/17/17 10:00 07/17/17 10:20 Vitamin B1 - PO 100 mg DAILY KINGS Administration ASSESSMENT/PLAN: 66 yo M with hx. of Alcohol abuse and HTN presented with facial lac and head injury, chest injury, found to be intoxicated and to have chronic subdural hematoma 1.) ETOH Intoxication, resolved/ Alcohol withdrawal , uncomplicated * Etoh level 366.1 * Banana Bag * continue Thiamine 100 mg Po daily/Folic Acid 1mg PO daily * continue Librium/CIWA 14 protocol * Replete lytes * Detox Consult- rehab ,Dr. Krzysztof Recio * F/U cbc, CMP * 2)Transaminitis * AST/ALT increased significantly from admission from 67 and 41 to 278 and 138 , respectively. TBili up as well. * Trend LFTs. Check lipase. * Check PT/INR. * US Abdomen * 2.) Chronic Subdural Hematoma with mild midline shift * No Neuro sx. * No Intervention is needed at this time per Neurosx. 3.) Thrombocytopenia liley 2/2 liver disease due to Alcohol abuse * Plt 72 * F/U cbc 4.) Small Pneumothorax 2/2 rib fracture * Prelim read, with no shift * 02 NC with o2 sat > 92 % * repeat CXR * Pain control: 5 mg oxycodone IV Q4hr PRN * Incentive spirometer * * 5) H/O HTN * BP 134/77 * Monitor BP * Verify home meds 6) Dvt Ppx * Low Risk, SCD * GI : Protonix 40 mg Daily 7)FEN * No fluids * WNL * Sodium controlled diet 8)Facial laceration * Dressing clean dry and intact. Dominick Kasper MD PGY 1 Visit type - Emergency Visit Emergency Visit: Yes ED Registration Date: 07/16/17 Care time: The patient presented to the Emergency Department on the above date and was hospitalized for further evaluation of their emergent condition. - New Patient This patient is new to me today: No - Critical Care Critical Care patient: No
[2017-07-18] MEDS: FOLIC ACID 1 MG TABLET (FP) PO SCH (09:33)
[2017-07-18] MEDS: PANTOPRAZOLE 40 MG TABLET (FP) PO SCH (09:33)
[2017-07-18] MEDS: THIAMINE HCL 100 MG TABLET (FP) PO SCH (09:33)
[2017-07-18 09:38] LABS: MEAN CELL VOLUME 94.3 fl (80-96); MEAN PLT VOLUME 6.9 fl (7.5-11.1); PLATELET COUNT 58 K/MM3 (134-434); WHITE BLOOD COUNT 6.5 K/mm3 (4.0-10.0)
[2017-07-18 10:37] LABS: ALBUMIN 2.8 g/dl (3.4-5.0); ALK PHOS 101 U/L (45-117); ANION GAP 10 (8-16); BILIRUBIN,TOTAL 2.5 mg/dL (0.2-1.0); CALCIUM 8.8 mg/dL (8.5-10.1); CO2 27 mmol/L (21-32); CREATININE 0.9 mg/dL (0.7-1.3); GLUCOSE,RANDOM 114 mg/dL (74-106); SGOT/AST 278 U/L (15-37); SGPT/ALT 138 U/L (12-78); TOT PROT 6.5 g/dl (6.4-8.2)
--- NOTE | 2017-07-18 13:07 | MSN ---
Progress Note (SOAP) - Subjective Chief Complaint: L sided rib pain History of Present Illness: Overnight, pt had a short episode of confusion. Since then he has not been confused or agitated. He states that he is still experiencing pain of his L chest wall, chin, back, and both knees. He states that he feels anxious but better than yesterday and that he is still tremulous but that has improved as well. He has not experienced any shortness of breath, nausea, vomiting, diarrhea , dizziness, lightheadedness, or any other complaints. - Current Medications Current Medications: Active Medications Chlordiazepoxide HCl (Librium -) 25 mg PO Q4H PRN PRN Reason: WITHDRAWAL(CONT SUBST) Stop: 07/19/17 23:47 Last Admin: 07/17/17 20:08 Dose: 25 mg Chlordiazepoxide HCl (Librium -) 25 mg PO [id number]-WBF [facility] Stop: 07/19/17 05:01 Last Admin: 07/18/17 11:54 Dose: 25 mg Chlordiazepoxide HCl (Librium -) 15 mg PO [id number] [facility] Stop: 07/20/17 05:01 Chlordiazepoxide HCl (Librium -) 10 mg PO Q6HPO KINGS Stop: 07/21/17 00:01 Folic Acid (Folic Acid -) 1 mg PO DAILY [facility] Last Admin: 07/18/17 09:33 Dose: 1 mg Oxycodone HCl (Roxicodone -) 5 mg PO Q4H PRN PRN Reason: PAIN 6-10 Last Admin: 07/18/17 10:58 Dose: 5 mg Pantoprazole Sodium (Protonix -) 40 mg PO DAILY [facility] Last Admin: 07/18/17 09:33 Dose: 40 mg Thiamine HCl (Vitamin B1 -) 100 mg PO DAILY [facility] Last Admin: 07/18/17 09:33 Dose: 100 mg - Objective Vital Signs: Vital Signs Temperature 99.8 F H 07/18/17 10:00 Pulse Rate 96 H 07/18/17 10:00 Respiratory Rate 20 07/18/17 10:00 Blood Pressure 137/85 07/18/17 10:00 O2 Sat by Pulse Oximetry (%) 96 07/17/17 20:46 Constitutional: Yes: Anxious, Mild Distress, Poor Hygeine Eyes: Yes: WNL, Conjunctiva Clear, EOM Intact HENT: Yes: Normocephalic, Other (Chin laceration, healing) Neck: Yes: WNL, Supple, Trachea Midline Cardiovascular: Yes: WNL, Regular Rate and Rhythm Respiratory: Yes: WNL, Regular, CTA Bilaterally Gastrointestinal: Yes: WNL, Normal Bowel Sounds, Soft. No: Ascites, Tenderness , Vomiting ...Rectal Exam: Yes: Deferred Musculoskeletal: Yes: Back Pain, Other (L sided chest wall exquisitely tender) Extremities: Yes: Other (Abrasions on bilateral knees) Peripheral Pulses WNL: Yes Wound/Incision: Yes: Dressing Dry and Intact Neurological: Yes: Alert, Oriented, Tremors. No: Aphasia, Asterixis, Confusion , Facial Droop, Seizure Labs Lab Results: CBC, BMP 07/18/17 09:00 07/18/17 09:00 Imaging - Results Chest X-ray: Report Reviewed, Image Reviewed Cat Scan: Report Reviewed, Image Reviewed Assessment/Plan #Acute alcohol intoxication - Resolved #Alcohol withdrawal, uncomplicated - Symptoms improving, stop librium tomorrow if improvement continues. - Electrolytes repleted, repeat CMP. #Transaminitis - AST/ALT increased significantly from admission from 67 and 41 to 278 and 138, respectively. TBili up as well. - Trend LFTs. Check lipase. Check PT/INR. Consider US RUQ. #Continuous alcohol dependence - Continue thiamine, folic acid - Patient interested in rehab. shared services and outsourcing manager following. #Chronic right subdural hematoma - Neurosurgery consult appreciated - No neurosurgical intervention indicated #Multiple left rib fractures with small pneumothorax - Follow up CXR shows unable to visualize previous pneumothorax. - Pain control. Incentive spirometer #HTN - On no medication. Discharge patient on low-dose thiazide, plan for outpatient follow-up. #Facial laceration - Dressing clean dry and intact. #Thrombocytopenia - Secondary to alcohol use, trend CBC's.
--- NOTE | 2017-07-18 15:03 | PN ---
Teaching Attending Note Name of Resident: Dominick Kasper ATTENDING PHYSICIAN STATEMENT I saw and evaluated the patient. I reviewed the resident's note and discussed the case with the resident. I agree with the resident's findings and plan as documented. SUBJECTIVE: Patient complains of left rib pain. Less tremulous. OBJECTIVE: Vital Signs Period Temp Pulse Resp BP Sys/Jeff Pulse Ox Last 24 Hr 97.9 F-99.8 F 90-114 16-20 137-157/77-85 96-98 HEART: S1S2, tachycardic LUNGS: Clear ABDOMEN: Soft, non-tender, non-distended, normal BS EXTREMITIES: No edema NEUROLOGICAL: Alert, oriented, tremulous, no focal deficits ASSESSMENT AND PLAN: This is a 66 year old man with a history of alcohol abuse, HTN who presented to the ER with generalized pain. 1. Acute alcohol intoxication 2. Alcohol withdrawal, uncomplicated - Continue Librium detox 3. Continuous alcohol dependence - Continue thiamine, folic acid - Patient interested in rehab 4. Chronic right subdural hematoma - No neurosurgical intervention indicated 5. Multiple left rib fractures with small pneumothorax - Pain control - Incentive spirometer 6. HTN - On no medication 7. Chin laceration - Sutured in ER 8. Thrombocytopenia - Secondary to alcohol use
[2017-07-18] MEDS: chlordiazePOXIDE HCL 25 MG CAPSULE PO PRN (20:54)
[2017-07-18] MEDS ORDERED: oxyCODONE HCL 5 MG TABLET PO PRN (21:32)
[2017-07-19] MEDS: oxyCODONE HCL 5 MG TABLET PO PRN ×4 (02:14→20:35)
[2017-07-19] MEDS: chlordiazePOXIDE HCL 25 MG CAPSULE PO SCH (06:12)
[2017-07-19 07:32] LABS: MCH 31.7 pg (25.7-33.7); MCHC 33.6 g/dl (32.0-35.9); MEAN CELL VOLUME 94.4 fl (80-96); MEAN PLT VOLUME 8.1 fl (7.5-11.1); PLATELET COUNT 71 K/MM3 (134-434); RDW 15.5 % (11.9-15.9); WHITE BLOOD COUNT 5.3 K/mm3 (4.0-10.0)
[2017-07-19 07:55] LABS: ALBUMIN 2.7 g/dl (3.4-5.0); ALK PHOS 93 U/L (45-117); ANION GAP 10 (8-16); BILIRUBIN,TOTAL 1.3 mg/dL (0.2-1.0); CALCIUM 8.5 mg/dL (8.5-10.1); CO2 28 mmol/L (21-32); CREATININE 0.9 mg/dL (0.7-1.3); GLUCOSE,RANDOM 106 mg/dL (74-106); SGOT/AST 219 U/L (15-37); SGPT/ALT 161 U/L (12-78); TOT PROT 6.3 g/dl (6.4-8.2)
[2017-07-19 08:00] LABS: INR 1.07 (0.82-1.09); PROTHROMBIN TIME (PATIENT) 11.8 SEC (9.98-11.88)
[2017-07-19] MEDS: THIAMINE HCL 100 MG TABLET (FP) PO SCH (09:42)
[2017-07-19] MEDS: FOLIC ACID 1 MG TABLET (FP) PO SCH (09:42)
[2017-07-19] MEDS: PANTOPRAZOLE 40 MG TABLET (FP) PO SCH (09:42)
[2017-07-19] MEDS: chlordiazePOXIDE 5 MG CAPSULE PO SCH ×3 (12:08→22:41)
--- NOTE | 2017-07-19 12:52 | PN ---
Teaching Attending Note Name of Resident: Dominick Kasper ATTENDING PHYSICIAN STATEMENT I saw and evaluated the patient. I reviewed the resident's note and discussed the case with the resident. I agree with the resident's findings and plan as documented. SUBJECTIVE: Patient complains of left rib pain. OBJECTIVE: Vital Signs Period Temp Pulse Resp BP Sys/Jeff Pulse Ox Last 24 Hr 98.3 F-99.8 F 87-121 18-22 109-132/60-88 96-99 HEART: S1S2, RRR LUNGS: Clear ABDOMEN: Soft, non-tender, non-distended, normal BS EXTREMITIES: No edema NEUROLOGICAL: Alert, oriented, tremulous, no focal deficits ASSESSMENT AND PLAN: This is a 66 year old man with a history of alcohol abuse, HTN who presented to the ER with generalized pain. 1. Acute alcohol intoxication - Resolved 2. Alcohol withdrawal, uncomplicated - Continue Librium detox 3. Continuous alcohol dependence - Continue thiamine, folic acid - Patient interested in rehab - Awaiting detox consult 4. Chronic right subdural hematoma - No neurosurgical intervention indicated 5. Multiple left rib fractures with small pneumothorax - Pain control - Incentive spirometer 6. HTN - On no medication 7. Chin laceration - Sutured in ER 8. Thrombocytopenia - Secondary to alcohol use - Platelets stable 9. Hepatic transaminitis secondary to alcohol - US shows mild hepatomegaly, fatty infiltration vs hepatocelular disease, overdistended gallbladder 10. Physical therapy
--- NOTE | 2017-07-19 15:53 | PN ---
Physical Exam: SUBJECTIVE: Patient seen and examined sat bed side. Hand tremor is better, still complaining of left chest pain. He denies any N/V/D/C. OBJECTIVE: Vital Signs Period Temp Pulse Resp BP Sys/Jeff Pulse Ox Last 24 Hr 98.3 F-99.8 F 87-100 18-20 109-132/60-88 96-99 GENERAL: The patient is awake, alert, and fully oriented, in no acute distress. HEAD: Normal with no signs of trauma. EYES: PERRL, extraocular movements intact, sclera anicteric, conjunctiva clear. No ptosis. ENT: Ears normal, nares patent, oropharynx clear without exudates, moist mucous membranes. NECK: Trachea midline, full range of motion, supple. LUNGS: Breath sounds equal, clear to auscultation bilaterally, no wheezes, no crackles, no accessory muscle use. HEART: Regular rate and rhythm, S1, S2 without murmur, rub or gallop. ABDOMEN: Soft, nontender, nondistended, normoactive bowel sounds, no guarding, no rebound, no hepatosplenomegaly, no masses. EXTREMITIES: 2+ pulses, warm, well-perfused, no edema. NEUROLOGICAL: Cranial nerves II through XII grossly intact. Normal speech, gait not observed. PSYCH: Normal mood, normal affect. SKIN: Warm, dry, normal turgor, no rashes or lesions noted Laboratory Results - last 24 hr 07/18/17 07/19/17 07/19/17 14:45 06:15 06:15 WBC 5.3 RBC 3.54 L Hgb 11.2 L Hct 33.4 L MCV 94.4 MCH 31.7 MCHC 33.6 RDW 15.5 Plt Count 71 L D MPV 8.1 D INR Sodium 137 Potassium 3.6 Chloride 99 Carbon Dioxide 28 Anion Gap 10 BUN 11 D Creatinine 0.9 Creat Clearance w eGFR > 60 Random Glucose 106 Calcium 8.5 Total Bilirubin 1.3 H D AST 219 H D ALT 161 H Alkaline Phosphatase 93 Total Protein 6.3 L Albumin 2.7 L Total Amylase 42 Lipase 173 07/19/17 06:15 WBC RBC Hgb Hct MCV MCH MCHC RDW Plt Count MPV INR 1.07 Sodium Potassium Chloride Carbon Dioxide Anion Gap BUN Creatinine Creat Clearance w eGFR Random Glucose Calcium Total Bilirubin AST ALT Alkaline Phosphatase Total Protein Albumin Total Amylase Lipase Active Medications Generic Name Dose Route Start Last Admin Trade Name Freq PRN Reason Stop Dose Admin Chlordiazepoxide HCl 25 mg 07/16/17 23:48 07/18/17 20:54 Librium - PO 07/19/17 23:47 25 mg Q4H PRN Administration WITHDRAWAL(CONT SUBST) Chlordiazepoxide HCl 15 mg 07/19/17 11:00 07/19/17 12:08 Librium - PO 07/20/17 05:01 15 mg [id number] KINGS Administration Chlordiazepoxide HCl 10 mg 07/20/17 11:00 Librium - PO 07/21/17 00:01 Q6HPO KINGS Folic Acid 1 mg 07/17/17 10:00 07/19/17 09:42 Folic Acid - PO 1 mg DAILY KINGS Administration Oxycodone HCl 5 mg 07/18/17 21:34 07/19/17 15:17 Roxicodone - PO 5 mg Q4H PRN Administration PAIN Pantoprazole Sodium 40 mg 07/17/17 13:45 07/19/17 09:42 Protonix - PO 40 mg DAILY KINGS Administration Thiamine HCl 100 mg 07/17/17 10:00 07/19/17 09:42 Vitamin B1 - PO 100 mg DAILY KINGS Administration ASSESSMENT/PLAN: 66 yo M with hx. of Alcohol abuse and HTN presented with facial lac and head injury, chest injury, found to be intoxicated and to have chronic subdural hematoma 1.) ETOH Intoxication, resolved/ Alcohol withdrawal , uncomplicated * Etoh level 366.1 * Banana Bag * continue Thiamine 100 mg Po daily/Folic Acid 1mg PO daily * continue Librium/CIWA 14 protocol * Replete lytes * Detox Consult- rehab ,Dr. Krzysztof Recio * F/U cbc, CMP * 2)Transaminitis * AST/ALT increased significantly from admission from 67 and 41 to 278 and 138 , respectively. TBili up as well. * Trend LFTs. Check lipase. * Check PT/INR. * US Abdomen * 2.) Chronic Subdural Hematoma with mild midline shift * No Neuro sx. * No Intervention is needed at this time per Neurosx. 3.) Thrombocytopenia liley 2/2 liver disease due to Alcohol abuse * Plt 71 * F/U cbc 4.) Small Pneumothorax 2/2 rib fracture * Prelim read, with no shift * 02 NC with o2 sat > 92 % * repeat CXR * Pain control: 5 mg oxycodone IV Q4hr PRN * Incentive spirometer * * 5) H/O HTN * BP 145/73 * Monitor BP * Verify home meds 6) Dvt Ppx * Low Risk, SCD * GI : Protonix 40 mg Daily 7)FEN * No fluids * WNL * Sodium controlled diet 8)Facial laceration * Dressing clean dry and intact. Dominick Kasper MD PGY 1 Visit type - Emergency Visit Emergency Visit: Yes ED Registration Date: 07/16/17 Care time: The patient presented to the Emergency Department on the above date and was hospitalized for further evaluation of their emergent condition. - New Patient This patient is new to me today: No - Critical Care Critical Care patient: No
[2017-07-20] MEDS: chlordiazePOXIDE 5 MG CAPSULE PO SCH ×4 (05:50→18:31)
[2017-07-20] MEDS: oxyCODONE HCL 5 MG TABLET PO PRN ×3 (05:51→18:31)
[2017-07-20 07:52] LABS: MCH 32.3 pg (25.7-33.7); MCHC 34.3 g/dl (32.0-35.9); MEAN CELL VOLUME 94.4 fl (80-96); MEAN PLT VOLUME 7.2 fl (7.5-11.1); PLATELET COUNT 98 K/MM3 (134-434); RDW 15.5 % (11.9-15.9); WHITE BLOOD COUNT 5.9 K/mm3 (4.0-10.0)
[2017-07-20 08:20] LABS: ALBUMIN 2.6 g/dl (3.4-5.0); ANION GAP 10 (8-16); CALCIUM 8.7 mg/dL (8.5-10.1); CO2 28 mmol/L (21-32); GLUCOSE,RANDOM 113 mg/dL (74-106); SGOT/AST 105 U/L (15-37); SGPT/ALT 117 U/L (12-78)
[2017-07-20 08:24] LABS: ALK PHOS 86 U/L (45-117); CREATININE 0.9 mg/dL (0.7-1.3); TOT PROT 6.2 g/dl (6.4-8.2)
[2017-07-20 08:43] LABS: INR 1.04 (0.82-1.09); PROTHROMBIN TIME (PATIENT) 11.5 SEC (9.98-11.88)
--- NOTE | 2017-07-20 09:50 | PN ---
Physical Exam: SUBJECTIVE: Patient seen and examined at bed side. He is feeling better, tremor is better. he still complains of left side rib pain, will increase his pain meds dose. He denies N/V/D/C. OBJECTIVE: Vital Signs Period Temp Pulse Resp BP Sys/Jeff Pulse Ox Last 24 Hr 98.1 F-98.6 F 89-97 18-20 99-145/62-75 97-99 GENERAL: The patient is awake, alert, and fully oriented, in no acute distress. HEAD: Normal with no signs of trauma. EYES: PERRL, extraocular movements intact, sclera anicteric, conjunctiva clear. No ptosis. ENT: Ears normal, nares patent, oropharynx clear without exudates, moist mucous membranes. NECK: Trachea midline, full range of motion, supple. LUNGS: Breath sounds equal, clear to auscultation bilaterally, no wheezes, no crackles, no accessory muscle use. HEART: Regular rate and rhythm, S1, S2 without murmur, rub or gallop. ABDOMEN: Soft, nontender, nondistended, normoactive bowel sounds, no guarding, no rebound, no hepatosplenomegaly, no masses. EXTREMITIES: 2+ pulses, warm, well-perfused, no edema. NEUROLOGICAL: Cranial nerves II through XII grossly intact. Normal speech, gait not observed. PSYCH: Normal mood, normal affect. SKIN: Warm, dry, normal turgor, no rashes or lesions noted Laboratory Results - last 24 hr 07/20/17 07/20/17 07/20/17 07:00 07:00 07:00 WBC 5.9 RBC 3.41 L Hgb 11.0 L Hct 32.2 L MCV 94.4 MCH 32.3 MCHC 34.3 RDW 15.5 Plt Count 98 L D MPV 7.2 L D INR 1.04 Sodium 137 Potassium 3.7 Chloride 99 Carbon Dioxide 28 Anion Gap 10 BUN 10 Creatinine 0.9 Creat Clearance w eGFR > 60 Random Glucose 113 H Calcium 8.7 Total Bilirubin 1.0 D AST 105 H D ALT 117 H D Alkaline Phosphatase 86 Total Protein 6.2 L Albumin 2.6 L Active Medications Generic Name Dose Route Start Last Admin Trade Name Freq PRN Reason Stop Dose Admin Chlordiazepoxide HCl 10 mg 07/20/17 11:00 Librium - PO 07/21/17 00:01 Q6HPO KINGS Folic Acid 1 mg 07/17/17 10:00 07/19/17 09:42 Folic Acid - PO 1 mg DAILY KINGS Administration Oxycodone HCl 10 mg 07/20/17 09:42 Roxicodone - PO Q6H PRN PAIN Pantoprazole Sodium 40 mg 07/17/17 13:45 07/19/17 09:42 Protonix - PO 40 mg DAILY KINGS Administration Thiamine HCl 100 mg 07/17/17 10:00 07/19/17 09:42 Vitamin B1 - PO 100 mg DAILY KINGS Administration ASSESSMENT/PLAN: 66 yo M with hx. of Alcohol abuse and HTN presented with facial lac and head injury, chest injury, found to be intoxicated and to have chronic subdural hematoma 1.) ETOH Intoxication, resolved/ Alcohol withdrawal , uncomplicated * Etoh level 366.1 * Banana Bag * continue Thiamine 100 mg Po daily/Folic Acid 1mg PO daily * continue Librium/CIWA 14 protocol * Replete lytes * Detox Consult- rehab ,Dr. Krzysztof Recio * F/U cbc, CMP * 2)Transaminitis likely 2/2 Alcohol abuse * AST/ALT increased significantly from admission from 67 and 41 to 278 and 138 , respectively. trending down to 105/117 respectively. * Trend LFTs. * Check PT/INR. * US Abdomen shows mildly enlarged liver with fatty infiltrate likely 2/2 Alcoholic hepatitis * 2.) Chronic Subdural Hematoma with mild midline shift * No Neuro sx. * No Intervention is needed at this time per Neurosx. 3.) Thrombocytopenia liley 2/2 liver disease due to Alcohol abuse * Plt 72 improved today to 98 * F/U cbc 4.) Small Pneumothorax 2/2 rib fracture , improved * Prelim read, with no shift * 02 NC with o2 sat > 92 % * repeat CXR * Pain control: increase to 10 mg oxycodone IV Q6hr PRN * Incentive spirometer * * 5) H/O HTN,controlled * BP 134/77 * Monitor BP * on no meds 6) Dvt Ppx * Low Risk, SCD * GI : Protonix 40 mg Daily 7)FEN * No fluids * WNL * Sodium controlled diet 8)Facial laceration * Dressing clean dry and intact. Dominick Kasper MD PGY 1 Visit type - Emergency Visit Emergency Visit: Yes ED Registration Date: 07/16/17 Care time: The patient presented to the Emergency Department on the above date and was hospitalized for further evaluation of their emergent condition. - New Patient This patient is new to me today: No - Critical Care Critical Care patient: No
[2017-07-20] MEDS: PANTOPRAZOLE 40 MG TABLET (FP) PO SCH (10:00)
[2017-07-20] MEDS: THIAMINE HCL 100 MG TABLET (FP) PO SCH (10:01)
[2017-07-20] MEDS: FOLIC ACID 1 MG TABLET (FP) PO SCH (10:01)
--- NOTE | 2017-07-20 14:27 | PN ---
Teaching Attending Note Name of Resident: Dominick Kasper ATTENDING PHYSICIAN STATEMENT I saw and evaluated the patient. I reviewed the resident's note and discussed the case with the resident. I agree with the resident's findings and plan as documented. SUBJECTIVE: Patient continues to complain of left rib pain. OBJECTIVE: Vital Signs Period Temp Pulse Resp BP Sys/Jeff Pulse Ox Last 24 Hr 98.1 F-98.4 F 89-96 18-18 99-145/62-75 97 Current Medications Generic Name Dose Route Start Last Admin Trade Name Freq PRN Reason Stop Dose Admin Chlordiazepoxide HCl 10 mg 07/20/17 11:00 07/20/17 12:29 Librium - PO 07/21/17 00:01 10 mg Q6HPO KINGS Administration Folic Acid 1 mg 07/17/17 10:00 07/20/17 10:01 Folic Acid - PO 1 mg DAILY KINGS Administration Oxycodone HCl 10 mg 07/20/17 09:42 07/20/17 12:30 Roxicodone - PO 10 mg Q6H PRN Administration PAIN Pantoprazole Sodium 40 mg 07/17/17 13:45 07/20/17 10:00 Protonix - PO 40 mg DAILY KINGS Administration Thiamine HCl 100 mg 07/17/17 10:00 07/20/17 10:01 Vitamin B1 - PO 100 mg DAILY KINGS Administration HEART: S1S2, RRR LUNGS: Clear ABDOMEN: Soft, non-tender, non-distended, normal BS EXTREMITIES: No edema NEUROLOGICAL: Alert, oriented, tremulous, no focal deficits ASSESSMENT AND PLAN: This is a 66 year old man with a history of alcohol abuse, HTN who presented to the ER with generalized pain. 1. Acute alcohol intoxication - Resolved 2. Alcohol withdrawal, uncomplicated - Completes Librium detox tonight 3. Continuous alcohol dependence - Continue thiamine, folic acid - Plan for rehab after detox complete 4. Chronic right subdural hematoma - No neurosurgical intervention indicated 5. Multiple left rib fractures with small pneumothorax - Pain control - Incentive spirometer - CXR 07/19 limited but shows no large pneumothorax 6. HTN - On no medication 7. Chin laceration - Sutured in ER 8. Thrombocytopenia - Secondary to alcohol use - Platelets improving 9. Hepatic transaminitis secondary to alcohol - Improving - US shows mild hepatomegaly, fatty infiltration vs hepatocelular disease, overdistended gallbladder 10. Continue physical therapy
[2017-07-21] MEDS: chlordiazePOXIDE 5 MG CAPSULE PO SCH (00:38)
[2017-07-21] MEDS: oxyCODONE HCL 5 MG TABLET PO PRN ×3 (03:18→21:43)
[2017-07-21 08:27] LABS: MCHC 33.8 g/dl (32.0-35.9); MEAN CELL VOLUME 94.8 fl (80-96); MEAN PLT VOLUME 6.9 fl (7.5-11.1); PLATELET COUNT 128 K/MM3 (134-434); RDW 15.7 % (11.9-15.9); WHITE BLOOD COUNT 6.7 K/mm3 (4.0-10.0)
[2017-07-21 08:47] LABS: ALBUMIN 2.6 g/dl (3.4-5.0); ANION GAP 11 (8-16); CALCIUM 8.5 mg/dL (8.5-10.1); CO2 27 mmol/L (21-32); GLUCOSE,RANDOM 117 mg/dL (74-106)
[2017-07-21 08:50] LABS: ALK PHOS 98 U/L (45-117); BILIRUBIN,DIRECT 0.4 mg/dL (0.0-0.2); BILIRUBIN,TOTAL 0.9 mg/dL (0.2-1.0); CREATININE 1.1 mg/dL (0.7-1.3); SGOT/AST 72 U/L (15-37); SGPT/ALT 93 U/L (12-78); TOT PROT 6.3 g/dl (6.4-8.2)
[2017-07-21] MEDS: PANTOPRAZOLE 40 MG TABLET (FP) PO SCH (09:39)
[2017-07-21] MEDS: THIAMINE HCL 100 MG TABLET (FP) PO SCH (09:39)
[2017-07-21] MEDS: FOLIC ACID 1 MG TABLET (FP) PO SCH (09:39)
--- NOTE | 2017-07-21 11:31 | PN ---
Physical Exam: SUBJECTIVE: Patient seen and examined. Left rib pain is less severe. Ambulated 5 feet with PT yesterday. OBJECTIVE: Vital Signs Period Temp Pulse Resp BP Sys/Jeff Pulse Ox Last 24 Hr 98.2 F-99.4 F 85-93 18-20 105-122/69-80 96 GENERAL: The patient is awake, alert, and fully oriented. Mildly tremulous. LUNGS: Breath sounds equal, clear to auscultation bilaterally, no wheezes, no crackles, no accessory muscle use. HEART: Regular rate and rhythm, S1, S2 without murmur, rub or gallop. ABDOMEN: Soft, nontender, nondistended, normoactive bowel sounds, no guarding, no rebound, no hepatosplenomegaly, no masses. EXTREMITIES: 2+ pulses, warm, well-perfused, no edema. Laboratory Results - last 24 hr 07/21/17 07/21/17 07:38 07:38 WBC 6.7 RBC 3.47 L Hgb 11.1 L Hct 32.9 L MCV 94.8 MCH 32.0 MCHC 33.8 RDW 15.7 Plt Count 128 L D MPV 6.9 L Sodium 137 Potassium 3.6 Chloride 99 Carbon Dioxide 27 Anion Gap 11 BUN 11 Creatinine 1.1 D Random Glucose 117 H Calcium 8.5 Total Bilirubin 0.9 Direct Bilirubin 0.4 H AST 72 H D ALT 93 H D Alkaline Phosphatase 98 Total Protein 6.3 L Albumin 2.6 L Active Medications Generic Name Dose Route Start Last Admin Trade Name Freq PRN Reason Stop Dose Admin Folic Acid 1 mg 07/17/17 10:00 07/21/17 09:39 Folic Acid - PO 1 mg DAILY KINGS Administration Oxycodone HCl 10 mg 07/20/17 09:42 07/21/17 03:18 Roxicodone - PO 10 mg Q6H PRN Administration PAIN Pantoprazole Sodium 40 mg 07/17/17 13:45 07/21/17 09:39 Protonix - PO 40 mg DAILY KINGS Administration Thiamine HCl 100 mg 07/17/17 10:00 07/21/17 09:39 Vitamin B1 - PO 100 mg DAILY KINGS Administration ASSESSMENT/PLAN: This is a 66 year old man with a history of alcohol abuse, HTN who presented to the ER with generalized pain. 1. Acute alcohol intoxication - Resolved 2. Alcohol withdrawal, uncomplicated - Completed Librium detox 3. Continuous alcohol dependence - Continue thiamine, folic acid - Plan for rehab after detox complete 4. Chronic right subdural hematoma - No neurosurgical intervention indicated 5. Multiple left rib fractures with small pneumothorax - Pain control - Incentive spirometer - CXR 07/20 shows multiple left rib fractures, no infiltrates, no pneumothorax 6. HTN - On no medication 7. Chin laceration - Sutured in ER 8. Thrombocytopenia - Secondary to alcohol use - Platelets improving 9. Hepatic transaminitis secondary to alcohol - Improving - US shows mild hepatomegaly, fatty infiltration vs hepatocelular disease, overdistended gallbladder 10. Continue physical therapy. May need subacute rehab. Visit type - Emergency Visit Emergency Visit: Yes ED Registration Date: 07/16/17 Care time: The patient presented to the Emergency Department on the above date and was hospitalized for further evaluation of their emergent condition. - New Patient This patient is new to me today: No - Critical Care Critical Care patient: No - Discharge Referral Referred to [facility] Med P.C.: No
[2017-07-22] MEDS: oxyCODONE HCL 5 MG TABLET PO PRN ×2 (02:00→21:40)
[2017-07-22 08:29] LABS: MCH 31.9 pg (25.7-33.7); MCHC 33.7 g/dl (32.0-35.9); MEAN CELL VOLUME 94.8 fl (80-96); MEAN PLT VOLUME 6.7 fl (7.5-11.1); PLATELET COUNT 141 K/MM3 (134-434); RDW 15.4 % (11.9-15.9)
[2017-07-22 08:54] LABS: ALBUMIN 2.5 g/dl (3.4-5.0); ALK PHOS 108 U/L (45-117); ANION GAP 7 (8-16); BILIRUBIN,DIRECT 0.3 mg/dL (0.0-0.2); CALCIUM 8.3 mg/dL (8.5-10.1); CO2 30 mmol/L (21-32); GLUCOSE,RANDOM 97 mg/dL (74-106); SGOT/AST 52 U/L (15-37); SGPT/ALT 76 U/L (12-78)
[2017-07-22] MEDS: FOLIC ACID 1 MG TABLET (FP) PO SCH (09:10)
[2017-07-22] MEDS: THIAMINE HCL 100 MG TABLET (FP) PO SCH (09:10)
[2017-07-22] MEDS: PANTOPRAZOLE 40 MG TABLET (FP) PO SCH (09:10)
--- NOTE | 2017-07-22 11:18 | PN ---
Physical Exam: SUBJECTIVE: Patient seen and examined. He is sitting at the side of the bed eating breakfast. Rib pain is improving. OBJECTIVE: Vital Signs Period Temp Pulse Resp BP Sys/Jeff Pulse Ox Last 24 Hr 98.5 F-100.4 F 77-101 18-22 106-131/64-78 97-98 GENERAL: The patient is awake, alert, and fully oriented. LUNGS: Breath sounds equal, clear to auscultation bilaterally, no wheezes, no crackles, no accessory muscle use. HEART: Regular rate and rhythm, S1, S2 without murmur, rub or gallop. ABDOMEN: Soft, nontender, nondistended, normoactive bowel sounds, no guarding, no rebound, no hepatosplenomegaly, no masses. EXTREMITIES: 2+ pulses, warm, well-perfused, no edema. Laboratory Results - last 24 hr 07/22/17 07/22/17 07:25 07:25 WBC 6.0 RBC 3.21 L Hgb 10.2 L Hct 30.4 L MCV 94.8 MCH 31.9 MCHC 33.7 RDW 15.4 Plt Count 141 MPV 6.7 L Sodium 136 Potassium 3.7 Chloride 99 Carbon Dioxide 30 Anion Gap 7 L BUN 11 Creatinine 1.0 Random Glucose 97 Calcium 8.3 L Total Bilirubin 1.0 Direct Bilirubin 0.3 H D AST 52 H D ALT 76 Alkaline Phosphatase 108 Total Protein 6.0 L Albumin 2.5 L Active Medications Generic Name Dose Route Start Last Admin Trade Name Freq PRN Reason Stop Dose Admin Folic Acid 1 mg 07/17/17 10:00 07/22/17 09:10 Folic Acid - PO 1 mg DAILY KINGS Administration Oxycodone HCl 10 mg 07/20/17 09:42 07/22/17 02:00 Roxicodone - PO 10 mg Q6H PRN Administration PAIN Pantoprazole Sodium 40 mg 07/17/17 13:45 07/22/17 09:10 Protonix - PO 40 mg DAILY KINGS Administration Thiamine HCl 100 mg 07/17/17 10:00 07/22/17 09:10 Vitamin B1 - PO 100 mg DAILY KINGS Administration ASSESSMENT/PLAN: This is a 66 year old man with a history of alcohol abuse, HTN who presented to the ER with generalized pain. 1. Acute alcohol intoxication - Resolved 2. Alcohol withdrawal, uncomplicated - Completed Librium detox 3. Continuous alcohol dependence - Continue thiamine, folic acid - Interested in alcohol rehab 4. Chronic right subdural hematoma - No neurosurgical intervention indicated 5. Multiple left rib fractures with small pneumothorax - Pain control - Incentive spirometer - CXR 07/20 shows multiple left rib fractures, no infiltrates, no pneumothorax 6. HTN - On no medication 7. Chin laceration - Sutured in ER 8. Anemia, likely secondary to alcohol use and nutritional deficiency - Check iron studies, TSH, B12, folic acid, stool occult blood 9. Thrombocytopenia secondary to alcohol use - Improved 10. Hepatic transaminitis secondary to alcohol - Improving - US shows mild hepatomegaly, fatty infiltration vs hepatocelular disease, overdistended gallbladder 11. Disposition - Continue physical therapy - walked 5 feet on 07/20 - Will likely need subacute rehab Visit type - Emergency Visit Emergency Visit: Yes ED Registration Date: 07/16/17 Care time: The patient presented to the Emergency Department on the above date and was hospitalized for further evaluation of their emergent condition. - New Patient This patient is new to me today: No - Critical Care Critical Care patient: No - Discharge Referral Referred to [facility] Med P.C.: No
[2017-07-23] MEDS: oxyCODONE HCL 5 MG TABLET PO PRN (06:40)
[2017-07-23 08:26] LABS: MCH 32.3 pg (25.7-33.7); PLATELET COUNT 182 K/MM3 (134-434); RDW 14.9 % (11.9-15.9); WHITE BLOOD COUNT 5.8 K/mm3 (4.0-10.0)
[2017-07-23] MEDS: FOLIC ACID 1 MG TABLET (FP) PO SCH (11:30)
[2017-07-23] MEDS: PANTOPRAZOLE 40 MG TABLET (FP) PO SCH (11:31)
[2017-07-23] MEDS: THIAMINE HCL 100 MG TABLET (FP) PO SCH (11:31)
[2017-07-23] MEDS ORDERED: oxyCODONE HCL 5 MG TABLET ONE (14:57)
--- NOTE | 2017-07-23 17:22 | PN ---
Teaching Attending Note Name of Resident: Dominick Kasper ATTENDING PHYSICIAN STATEMENT I saw and evaluated the patient. I reviewed the resident's note and discussed the case with the resident. I agree with the resident's findings and plan as documented. SUBJECTIVE:continues to have L chest wall discomfort worse on deep inspiration. denies CP, SOB,fever, chills, N/V/C/D OBJECTIVE: Last Vital Signs Temp Pulse Resp BP Pulse Ox 97.9 F 88 20 121/69 97 07/23/17 16:15 07/23/17 16:15 07/23/17 16:15 07/23/17 16:15 07/22/17 21:00 General NAD CV S1 S2 RRR no murmur/rub/gallop point tenderness left midxillary line 5-7 ribs lungs CTA B/L poor inspiratory effort ASSESSMENT AND PLAN: 66 yo M with PMH continuous alcohol abuse, HTN who presented to the ER with generalized pain. 1. Multiple rib fracures with small PTX- PTX has now resolved. saturating well on RA. ambulated with PT >50 feet. pt refusing CAREY. will set up for home PT 2. Alcohol ETOH withdrawal- CIWA 0. completed librium detox. counseled on importance of ETOH cessation and detrimental risks assoc with continued drinking. cont thiamine/folate/MVI 3. Chronic right subdural hematoma- stable. no intervention per neurosurgery 4. HTN- diet controlled. not on medications. 5. Anemia- hgb stable. no signs of active bleeding. 6. Thrombocytopenia secondary to alcohol use- stable 7. Hepatic transaminitis secondary to alcohol. improving. 8. d/c home as pt refusing CAERY. will set up home PT.
[2017-07-23 19:49] VITALS: BP 146/57; PULSE 98; TEMP 100
[2017-07-24 06:11] LABS: SERUM IRON 36 ug/dL (38-169); TOTAL IRON BINDING CAPACITY 258 ug/dL (250-450); UIBC 222 ug/dL (111-343)
[2017-07-25 07:45] LABS: FERRITIN 355.548 ng/ml (16.4-293.9); THYROID STIMULATING HORMONE 2.07 uIU/ml (0.358-3.74)
== END 2017-07-23 20:03 | disposition home or self-care (01) | DRG 775 ==
LOC: JER 15:14 → JERBED 22:12 → J5S 07-17 01:57
PROVIDERS: ADMIT Internal Medicine; ATTEND Internal Medicine
PROC: 0HQ1XZZ Repair Face Skin, External Approach (ICD-10-PCS; principal; 2017-07-16)
DX: F10.220 Alcohol dependence with intoxication, uncomplicated (principal); F10.230 Alcohol dependence with withdrawal, uncomplicated; I62.03 Nontraumatic chronic subdural hemorrhage; D69.6 Thrombocytopenia, unspecified; J93.9 Pneumothorax, unspecified; S09.90XA Unspecified injury of head, initial encounter; S22.42XA Multiple fractures of ribs, left side, initial encounter for closed fracture; Z87.891 Personal history of nicotine dependence; S01.81XA Laceration without foreign body of other part of head, initial encounter; R74.0 Nonspecific elevation of levels of transaminase and lactic acid dehydrogenase [LDH]; I10 Essential (primary) hypertension; W18.39XA Other fall on same level, initial encounter; Y99.8 Other external cause status; Y93.89 Activity, other specified; Y92.89 Other specified places as the place of occurrence of the external cause
CPT/HCPCS: 36415; 70450-TC; 70486-TC; 71010-TC; 71111-TC; 72125-TC; 76705-TC; 80048; 80053; 80076; 80307; 81003; 81015; 82150; 82553; 82607; 82728; 82746; 83540; 83550; 83690; 83735; 84100; 84443; 84484; 85025; 85027; 85610; 90715; 93005; 93010; 94010; 97116-GP; 97161-GP; 99285-25

== ENCOUNTER 2017-08-31 12:35 | Inpatient (IN) | payer BC, OTHER ==
--- NOTE | 2017-08-31 12:47 | PDOC ---
History of Present Illness <Luis Avendano - Last Filed: 08/31/17 18:34> <Alessia Stewart - Last Filed: 09/02/17 07:54> - General Chief Complaint: Shortness of Breath Stated Complaint: SOB Time Seen by Provider: 08/31/17 12:46 - History of Present Illness Initial Comments: 08/31/17 17:17 66M with pmh of multiple rib fractures with a small pneumothorax (07/16/17), ETOH abuse, and HTN, who presents to the emergency room BIB complaining of 1 and a half weeks of SOB and left sided rib pain. The patient is not ambulatory. As per EMS the patient was found on the floor amidst vast amounts of feces and empty beer cans everywhere. Patient states that his last alcoholic drink was 2 days ago. In the patient's own words he is "withdrawing" 08/31/17 17:21 (Luis Avendano) Past History - Past Medical History Cardiac Disorders: Yes (cardiomegaly) HTN: Yes - Suicide/Smoking/Psychosocial Hx Smoking History: Former smoker Have you smoked in the past 12 months: No Hx Alcohol Use: Yes Drug/Substance Use Hx: Yes (etoh) Substance Use Type: Alcohol Hx [facility] 4 months [facility]) <Luis Avendano - Last Filed: 08/31/17 18:34> <Alessia Stewart - Last Filed: 09/02/17 07:54> - Past Medical History Allergies/Adverse Reactions: Allergies Allergy/AdvReac Type Severity Reaction Status Date / Time No Known Allergies Allergy Verified 07/16/17 15:34 Home Medications: Ambulatory Orders Unobtainable [Unobtainable] 08/31/17 Review of Systems - Review of Systems Able to Perform ROS?: No (intoxicated) <Luis Avendano - Last Filed: 08/31/17 18:34> *Physical Exam <Luis Avendano - Last Filed: 08/31/17 18:34> <Alessia Stewart - Last Filed: 09/02/17 07:54> - Vital Signs Last Vital Signs Temp Pulse Resp BP Pulse Ox 97.6 F 85 30 H 90/68 100 09/02/17 02:32 09/02/17 05:58 09/02/17 05:59 09/02/17 05:58 09/02/17 03:00 - Physical Exam Comments: 08/31/17 17:44 GENERAL: Awake, alert, and fully oriented. Tachypneic. Appears uncomfortable. Poor hygiene HEAD: No signs of trauma EYES: PERRLA, EOMI, sclera anicteric, conjunctiva clear ENT: Auricles normal inspection, hearing grossly normal, nares patent, oropharynx clear without exudates. Moist mucosa NECK: Normal ROM, supple, no lymphadenopathy, JVD, or masses LUNGS: Breath sounds decreased on L compared to R, however, with air movement B/ L. No wheezes, and no crackles. +Tenderness to L lateral chest wall. HEART: Tachycardic with regular rhythm, normal S1 and S2, no murmurs, rubs or gallops ABDOMEN: Soft, nontender, normoactive bowel sounds. No guarding, no rebound. No masses EXTREMITIES: +Coarse tremors to the hands B/L. Normal range of motion, no edema. No clubbing or cyanosis. No cords, erythema, or tenderness NEUROLOGICAL: Cranial nerves II through XII grossly intact. Normal speech. Motor and sensation intact. SKIN: Warm, Dry, normal turgor, no rashes or lesions noted. (Luis Avendano) ED Treatment Course - LABORATORY CBC & Chemistry Diagram: 08/31/17 13:40 08/31/17 13:40 <Luis Avendano - Last Filed: 08/31/17 18:34> - LABORATORY CBC & Chemistry Diagram: 09/02/17 05:00 09/02/17 05:00 <Alessia Stewart - Last Filed: 09/02/17 07:54> - ADDITIONAL ORDERS Additional order review: 08/31/17 08/31/17 13:40 13:22 RBC 4.32 D MCV 92.4 MCHC 33.7 RDW 14.6 MPV 8.5 D Neutrophils % 83.4 H Lymphocytes % 1.9 L D Monocytes % 14.6 H Eosinophils % 0.0 D Basophils % 0.1 POC Glucometer [id number] - RADIOLOGY Radiology Studies Ordered: Category Date Time Status CHEST X-RAY PORTABLE* [RAD] Stat Radiology 08/31/17 12:59 Completed - Medications Given in the ED: ED Medications Discontinued Medications Generic Name Dose Route Start Last Admin Trade Name Ramo PRN Reason Stop Dose Admin Bacitracin 1 applic 09/01/17 12:30 09/01/17 13:45 Bacitracin - TP 1 applic DAILY KINGS Administration Chlordiazepoxide HCl 50 mg 08/31/17 15:07 08/31/17 15:18 Librium - PO 08/31/17 15:08 50 mg ONCE ONE Administration Chlordiazepoxide HCl 50 mg 09/01/17 11:00 09/02/17 05:56 Librium - PO 09/02/17 05:01 50 mg [id number] KINGS Administration Diazepam 10 mg 08/31/17 23:33 09/01/17 00:40 Valium Injection - IVPUSH 08/31/17 23:34 Not Given ONCE ONE Fentanyl 100 mcg 09/02/17 00:11 09/02/17 00:30 Sublimaze Injection - IVPUSH 09/02/17 00:12 100 mcg ONCE ONE Administration Heparin Sodium (Porcine) 5,000 unit 08/31/17 22:00 09/01/17 09:28 Heparin - SQ 5,000 unit BID KINGS Administration Heparin Sodium (Porcine) 5,000 unit 09/01/17 22:00 09/01/17 22:07 Heparin - SQ 5,000 unit TID KINGS Administration Sodium Chloride 1,000 mls @ 1,000 mls/hr 08/31/17 15:01 08/31/17 15:08 Normal Saline - IV 08/31/17 16:00 1,000 mls/hr ASDIR STA Administration Potassium Chloride 100 mls @ 100 mls/hr 08/31/17 17:30 08/31/17 20:33 Potassium Chloride 10 Meq Premix Ivpb - IVPB 08/31/17 20:29 100 mls/hr Q60M KINGS Administration Folic Acid 1 mg/ Thiamine HCl 1,000 mls @ 125 mls/hr 08/31/17 19:35 08/31/17 21 :28 100 mg/ Multivitamins/Minerals IVPB 09/01/17 03:34 125 mls/hr 10 ml/ Sodium Chloride ONCE ONE Administration Potassium Chloride 100 mls @ 100 mls/hr 08/31/17 22:30 08/31/17 23:02 Potassium Chloride 10 Meq Premix Ivpb - IVPB 08/31/17 23:29 Not Given Q60M KINGS Sodium Chloride 1,000 mls @ 83 mls/hr 08/31/17 22:45 09/01/17 06:31 Normal Saline - IV 83 mls/hr ASDIR KINGS Administration Vancomycin HCl 250 mls @ 166.667 mls/hr 09/01/17 02:00 09/01/17 02:27 Vancomycin (Pre-Docked) IVPB 09/01/17 03:29 166.667 mls/hr ONCE ONE Administration Protocol Potassium Chloride 100 mls @ 100 mls/hr 09/01/17 03:30 09/01/17 06:11 Potassium Chloride 10 Meq Premix Ivpb - IVPB 09/01/17 05:29 100 mls/hr Q60M KINGS Administration Ceftriaxone Sodium 2 gm/ 100 mls @ 200 mls/hr 09/01/17 12:15 09/01/17 15:21 Dextrose IVPB 200 mls/hr DAILY KINGS Administration Vancomycin HCl 1,000 mg/ 250 mls @ 200 mls/hr 09/01/17 15:19 09/01/17 16:50 Dextrose IVPB 09/01/17 16:33 200 mls/hr ONCE ONE Administration Sodium Chloride 1,000 mls @ 1,000 mls/hr 09/01/17 17:52 09/01/17 18:26 Normal Saline - IV 09/01/17 18:51 1,000 mls/hr ASDIR STA Administration Vancomycin HCl 1,250 mg/ 250 mls @ 250 mls/hr 09/01/17 17:59 09/01/17 18:37 Dextrose IVPB 09/01/17 18:58 Not Given ONCE ONE Protocol Sodium Chloride 1,000 mls @ 100 mls/hr 09/01/17 19:08 09/01/17 19:05 Normal Saline - IV 100 mls/hr ASDIR KINGS Administration Phenylephrine HCl 20,000 mcg/ 250 mls @ 75 mls/hr 09/02/17 00:15 09/02/17 02:30 Sodium Chloride IVPB 37.5 mls/hr TITR IKNGS Administration Protocol 100 MCG/MIN Propofol 100 mls @ 5.269 mls/hr 09/02/17 00:15 09/02/17 02:00 Diprivan - IVPUSH 20 mcg/kg/min TITR KINGS Titration Protocol 10 MCG/KG/MIN Ibuprofen 800 mg 08/31/17 23:09 09/01/17 10:32 Caldolor Injection - IVPB 800 mg Q6H PRN Administration FEVER Lorazepam 2 mg 08/31/17 12:54 08/31/17 13:12 Ativan Injection - IVPUSH 08/31/17 12:55 2 mg ONCE ONE Administration Lorazepam 2 mg 08/31/17 14:13 08/31/17 14:25 Ativan Injection - IVPUSH 08/31/17 14:14 2 mg ONCE ONE Administration Lorazepam 2 mg 08/31/17 15:46 08/31/17 16:00 Ativan Injection - IVPUSH 08/31/17 15:47 2 mg ONCE ONE Administration Lorazepam 2 mg 09/01/17 00:27 09/01/17 00:37 Ativan Injection - IVPUSH 09/01/17 00:28 2 mg ONCE ONE Administration Lorazepam 2 mg 09/01/17 06:00 09/01/17 06:37 Ativan Injection - IVPUSH Not Given Q6HPO KINGS Lorazepam 2 mg 09/01/17 06:08 09/01/17 23:43 Ativan Injection - IVPUSH 2 mg Q2H PRN Administration ANXIETY Lorazepam 2 mg 09/01/17 06:09 09/01/17 18:33 Ativan Injection - IVPUSH Not Given Q6HPO KINGS Magnesium Sulfate 2 gm 08/31/17 19:28 08/31/17 20:14 Magnesium Sulfate IVPB 08/31/17 19:29 2 gm ONCE ONE Administration Midazolam HCl 2 mg 09/02/17 00:11 09/02/17 00:30 Versed - IVPUSH 09/02/17 00:12 2 mg ONCE ONE Administration Morphine Sulfate 4 mg 08/31/17 15:00 08/31/17 15:05 Morphine Injection - IVPUSH 08/31/17 15:01 4 mg ONCE ONE Administration Morphine Sulfate 4 mg 08/31/17 16:35 08/31/17 16:52 Morphine Injection - IVPUSH 08/31/17 16:36 4 mg ONCE ONE Administration Piperacillin/Tazobactam/Dextrose 3.375 gm 09/01/17 01:41 09/01/17 02:12 Zosyn 3.375gm Ivpb (Premix) IVPB 09/01/17 01:42 3.375 gm ONCE ONE Administration Potassium Chloride 40 meq 08/31/17 15:00 08/31/17 15:18 K-Dur - PO 08/31/17 15:01 40 meq ONCE ONE Administration Potassium Chloride 40 meq 09/01/17 14:00 09/01/17 13:48 K-Dur - PO 09/01/17 14:01 40 meq ONCE ONE Administration Propofol 40,000 mcg 09/02/17 00:12 09/02/17 00:30 Diprivan - IVPUSH 09/02/17 00:13 40,000 mcg ONCE ONE Administration Rocuronium Celestine 100 mg 09/02/17 00:13 09/02/17 00:50 Zemuron - IV 09/02/17 00:14 50 mg ONCE ONE Administration Sodium Chloride 1,000 ml 09/01/17 02:11 09/01/17 02:19 Normal Saline - IV 09/01/17 02:12 1,000 ml ONCE ONE Administration Medical Decision Making <Luis Avendano - Last Filed: 08/31/17 18:34> - Critical Care Time Total Critical Care Time (minutes): 45 Critical Care Statement: The care of this patient involved high complexity decision making to prevent further life threatening deterioration of the patient 's condition and/or to evaluate & treat vital organ system(s) failure or risk of failure. <Alessia Stewart - Last Filed: 09/02/17 07:54> - Medical Decision Making 08/31/17 18:33 Pt with history of EtOH abuse, recent fractured ribs complicated by ptx. Presenting with SOB, reportedly did not want to call EMS (as per EMS, the landlord called). Patient has been unable to walk around his apartment. He lives in a basement apartment, reportedly with beer cans all over the floor, and with feces everywhere. Patient has not had any drinks in 2 days, actively in withdrawal. I suspect he has not been eating based on lab findings as well. Will treat for withdrawal. CXR suspicious for ptx. Will obtain CTA to evaluate for size. Anticipate admission to hospital. (Luis Avendano) *DC/Admit/Observation/Transfer - Discharge Dispostion Admit: Yes <Luis Avendano - Last Filed: 08/31/17 18:34> <Alessia Stewart Filed: 09/02/17 07:54> Diagnosis at time of Disposition: Hypokalemia, Hyponatremia, Withdrawal symptoms, alcohol
--- NOTE | 2017-08-31 12:56 | PDOC ---
Attending Attestation - HPI HPI: 08/31/17 13:03 66 year old male, with significant past medical history of multiple rib fractures with a small pneumothorax (07/16/17), ETOH abuse, and HTN, who presents to the emergency room [facility] complaining of 1 and a half weeks of SOB and left sided rib pain. As per EMS, the patient did not want to come into the ED, but his landlord was able to convince him. The patient is not ambulatory, and EMS states that the patient was defecating all over his apartment and there were multiple empty beer cans everywhere. Patient states that his last alcoholic drink was 2 days ago. Allergies: NKDA <Shreya Batista - Last Filed: 08/31/17 13:03> - Resident Resident Name: Luis Avendano - ED Attending Attestation I have performed the following: I have examined & evaluated the patient, The case was reviewed & discussed with the resident, I agree w/resident's findings & plan, Exceptions are as noted - Physicial Exam PE: GENERAL: Awake, alert, and fully oriented. Tachypneic. Appears uncomfortable. Poor hygiene HEAD: No signs of trauma EYES: PERRLA, EOMI, sclera anicteric, conjunctiva clear ENT: Auricles normal inspection, hearing grossly normal, nares patent, oropharynx clear without exudates. Moist mucosa NECK: Normal ROM, supple, no lymphadenopathy, JVD, or masses LUNGS: Breath sounds decreased on L compared to R, however, with air movement B/ L. No wheezes, and no crackles. +Tenderness to L lateral chest wall. HEART: Tachycardic with regular rhythm, normal S1 and S2, no murmurs, rubs or gallops ABDOMEN: Soft, nontender, normoactive bowel sounds. No guarding, no rebound. No masses EXTREMITIES: +Coarse tremors to the hands B/L. Normal range of motion, no edema. No clubbing or cyanosis. No cords, erythema, or tenderness NEUROLOGICAL: Cranial nerves II through XII grossly intact. Normal speech. Motor and sensation intact. SKIN: Warm, Dry, normal turgor, no rashes or lesions noted. - Medical Decision Making Pt with history of EtOH abuse, recent fractured ribs complicated by ptx. Presenting with SOB, reportedly did not want to call EMS (as per EMS, the landlord called). Patient has been unable to walk around his apartment. He lives in a basement apartment, reportedly with beer cans all over the floor, and with feces everywhere. Patient has not had any drinks in 2 days, actively in withdrawal. I suspect he has not been eating based on lab findings as well. Will treat for withdrawal. CXR suspicious for ptx. Will obtain CTA to evaluate for size. Anticipate admission to hospital. <Alessia Stewart - Last Filed: 08/31/17 15:25> Heart Score/ECG Review - ECG Impressions Comment:: EKG read 13:00- Sinus tach 111 bpm, no acute ST/T changes. <Alessia Stewart - Last Filed: 08/31/17 15:25>
[2017-08-31] MEDS ORDERED: LORazepam 2 MG/ML SDV VIAL ONE (13:03)
[2017-08-31 13:50] LABS: BASOPHIL 0.1 % (0-2.0); MCH 31.1 pg (25.7-33.7); MCHC 33.7 g/dl (32.0-35.9); MEAN CELL VOLUME 92.4 fl (80-96); MEAN PLT VOLUME 8.5 fl (7.5-11.1); NEUTROPHILS 83.4 % (42.8-82.8); PLATELET COUNT 101 K/MM3 (134-434); RDW 14.6 % (11.9-15.9); WHITE BLOOD COUNT 11.3 K/mm3 (4.0-10.0)
[2017-08-31 14:13] LABS: INR 1.07 (0.82-1.09); PROTHROMBIN TIME (PATIENT) 12.1 SEC (9.98-11.88)
[2017-08-31 14:18] LABS: ALBUMIN 2.5 g/dl (3.4-5.0); ANION GAP 17 (8-16); BILIRUBIN,TOTAL 1.1 mg/dL (0.2-1.0); CALCIUM 8.3 mg/dL (8.5-10.1); CO2 23 mmol/L (21-32); CREATININE 1.4 mg/dL (0.7-1.3); GLUCOSE,RANDOM 121 mg/dL (74-106); SGOT/AST 149 U/L (15-37); SGPT/ALT 164 U/L (12-78); TOT PROT 7.2 g/dl (6.4-8.2)
[2017-08-31 14:21] LABS: ALK PHOS 75 U/L (45-117); CPK 846 IU/L (39-308); TROPONIN I 0.03 ng/ml (0.00-0.05)
[2017-08-31] MEDS ORDERED: morphine CARPU-JECT 4 MG/1 ML DISP.SYRIN IVPUSH ONE ×2 (15:00→16:35)
[2017-08-31] MEDS ORDERED: POTASSIUM CHLORIDE TABS 20 MEQ TABLET.ER (FP) PO ONE ×2 (15:00→15:10)
[2017-08-31] MEDS ORDERED: SODIUM CHLORIDE 1,000 ML IV STA (15:01)
[2017-08-31] MEDS ORDERED: morphine CARPU-JECT 2 MG/1 ML DISP.SYRIN ONE ×2 (15:03→16:37)
[2017-08-31] MEDS ORDERED: chlordiazePOXIDE HCL 25 MG CAPSULE PO ONE (15:07)
[2017-08-31] MEDS ORDERED: chlordiazePOXIDE HCL 25 MG CAPSULE ONE (15:10)
[2017-08-31] MEDS ORDERED: KCL 10 MEQ IVPB 200 ML IVPB ONE (17:41)
[2017-08-31] MEDS: KCL 10 MEQ IVPB 100 ML IVPB SCH ×3 (18:05→20:33)
[2017-08-31] MEDS ORDERED: MAGNESIUM SULF 50% (8.12 MEQ/2 ML-1 GM VIAL) IVPB ONE (19:28)
[2017-08-31] MEDS ORDERED: KCL 10 MEQ IVPB 100 ML IVPB ONE (19:29)
[2017-08-31] MEDS ORDERED: FOLIC ACID INJECTION - 1 MG, THIAMINE HCL 100 MG, MULTIVIT INJECTION ADULT 10 ML in SOD... IVPB ONE (19:35)
[2017-08-31] MEDS ORDERED: MAGNESIUM SULF 50% (8.12 MEQ/2 ML-1 GM VIAL) ONE (20:05)
[2017-08-31 20:28] LABS: MAGNESIUM 1.9 mg/dL (1.8-2.4); PHOSPHOROUS 2.6 mg/dL (2.5-4.9)
[2017-08-31 20:29] LABS: ALBUMIN 2.1 g/dl (3.4-5.0); ANION GAP 10 (8-16); BILIRUBIN,TOTAL 0.8 mg/dL (0.2-1.0); CALCIUM 7.5 mg/dL (8.5-10.1); CO2 26 mmol/L (21-32); CREATININE 1.3 mg/dL (0.7-1.3); GLUCOSE,RANDOM 110 mg/dL (74-106); SGOT/AST 111 U/L (15-37); SGPT/ALT 120 U/L (12-78)
[2017-08-31 20:30] LABS: ALK PHOS 63 U/L (45-117)
[2017-08-31] MEDS ORDERED: KCL 10 MEQ IVPB 100 ML IVPB SCH (22:30)
--- NOTE | 2017-08-31 22:34 | HP ---
CHIEF COMPLAINT: SOB PCP: HISTORY OF PRESENT ILLNESS: History was taken from medical records, the pt is lethargic and doesn't answer questions. He is 66 year old male, with significant past medical history of multiple rib fractures with a small pneumothorax (07/16/17), discharged from [facility] 07/23/17, ETOH abuse, and HTN, who presents to the emergency room [facility] complaining of 1 and a half weeks of SOB and left sided rib pain. As per EMS, the patient did not want to come into the ED, but his landlord was able to convince him. The patient is not ambulatory, and EMS states that the patient was defecating all over his apartment and there were multiple empty beer cans everywhere. Patient states that his last alcoholic drink was 2 days ago. When I assessed the pt he was oriented x3 but not able to answer any questions, very somnolent and lethargic. He was complaining of abdominal pain. ER course was notable for: (1)HR 111, 87/56 RR 32 (2)WBC 11.3 (3)k 2.6 Recent Travel:N/A PAST MEDICAL HISTORY: PAST SURGICAL HISTORY: Social History: Smoking:n/a Alcohol:n/a Drugs: n/a Family History: n/a Allergies No Known Allergies Allergy (Verified 07/16/17 15:34) HOME MEDICATIONS: Home Medications Medication Instructions Recorded Unobtainable [Unobtainable] 08/31/17 REVIEW OF SYSTEMS n/a PHYSICAL EXAMINATION Vital Signs - 24 hr 08/31/17 08/31/17 19:30 21:28 Pulse Rate [ 103 H Apical] Respiratory 24 Rate Blood Pressure 121/72 Blood Pressure 119/79 [Right Arm] O2 Sat by Pulse 100 Oximetry (%) GENERAL: Awake, alert x3, lethargic, on venti mask. HEAD: Normal with no signs of trauma. EYES: Pupils equal, round and reactive to light, extraocular movements intact, sclera anicteric, conjunctiva clear. EARS, NOSE, THROAT: Ears normal, nares patent, oropharynx clear without exudates. Moist mucous membranes, missing teeth. NECK: Normal range of motion, supple without lymphadenopathy, JVD, or masses. LUNGS: Breath sounds equal, clear to auscultation bilaterally. No wheezes, and no crackles. No accessory muscle use. HEART: Regular rate and rhythm, normal S1 and S2 without murmur, rub or gallop. ABDOMEN: Soft, tender on left side, distended, normoactive bowel sounds, no guarding, no rebound, no masses. MUSCULOSKELETAL: Normal range of motion at all joints. No bony deformities or tenderness. No CVA tenderness. UPPER EXTREMITIES: 2+ pulses, warm, well-perfused. No cyanosis. No clubbing. No peripheral edema. LOWER EXTREMITIES: 2+ pulses, warm, well-perfused. No calf tenderness. No peripheral edema. NEUROLOGICAL: Somnolent, following some commands, tremor. PSYCHIATRIC: Cooperative. Good eye contact. Appropriate mood and affect. SKIN: Warm, dry, normal turgor, multiple abrasions in lower extremities. Laboratory Results - last 24 hr 08/31/17 08/31/17 08/31/17 19:50 19:50 21:45 Sodium 128 L Potassium 3.1 L Chloride 92 L Carbon Dioxide 26 Anion Gap 10 BUN 27 H Creatinine 1.3 Creat Clearance w eGFR 55.06 Random Glucose 110 H Lactic Acid 1.1 Calcium 7.5 L Phosphorus 2.6 Magnesium 1.9 Total Bilirubin 0.8 D AST 111 H D ALT 120 H D Alkaline Phosphatase 63 Total Protein 6.0 L Albumin 2.1 L ASSESSMENT/PLAN: He is 66 year old male, with significant past medical history of multiple rib fractures with a small pneumothorax (07/16/17), discharged from [facility] 07/23/17 , ETOH abuse, and HTN, who presents to the emergency room [facility] complaining of 1 and a half weeks of SOB and left sided rib pain. He is admitted for alcohol withdrawal and hypokalemia. Acute alcohol withdrawal: the pt is tachy, fever, tremulous -Ativan 2 mg IVx 5 changed to Ativan 2 mg Q2h PRN and Ativan 2 mg Q6h KINGS -cont fluids NS boluses -banana bag -fall risk and one to one recommended Hypokalemia: -2.6 repleated to 3.1, will follow in Am -no acute ekg changes, old inferior infarct, RBBB, no preet/std, will f/u ECHO -telemetry monitoring -replete potassium and monitor -banana bag ALEXANDRA: -elevated Cr 1.4 and BUN 27, probably due to volume depletion -avoid nephrotoxic substances -cont fluids -urine ema and osmolarity, US Fever 105 rectally: -blood cultures and urine cultures ordered -Vanco plus Zosyn -ID zconsulted -CXR ordered to r/o aspiration Leukocytosis; -WBC 11.3, neur 83 -will follow in AM Transaminitis: -AST 149, ALT 164 -will trend -abdominal US ordered Thrombocytopenia; -101, on last admission low, stable h/o of pneumothorax: -stable, no signs on CT F/E/N; NS/low K,/NPO PPX: DVT-scds and Heparin SQ Disposition: telemetry, possible upgrade to ICU Problem List - Problem (1) Hypokalemia Code(s): E87.6 - HYPOKALEMIA (2) Hyponatremia Code(s): E87.1 - HYPO-OSMOLALITY AND HYPONATREMIA (3) Withdrawal symptoms, alcohol Code(s): F10.239 - ALCOHOL DEPENDENCE WITH WITHDRAWAL, UNSPECIFIED (4) Abuse, drug or alcohol Code(s): F19.10 - OTHER PSYCHOACTIVE SUBSTANCE ABUSE, UNCOMPLICATED (5) Thrombocytopenia Code(s): D69.6 - THROMBOCYTOPENIA, UNSPECIFIED Visit type - Emergency Visit Emergency Visit: Yes ED Registration Date: 08/31/17 Care time: The patient presented to the Emergency Department on the above date and was hospitalized for further evaluation of their emergent condition. - New Patient This patient is new to me today: Yes Date on this admission: 09/01/17 - Critical Care Critical Care patient: No
[2017-08-31] MEDS ORDERED: HEPARIN NA (PORCINE) 5,000 UNITS/ML 1ML VIAL ONE (22:37)
[2017-08-31] MEDS: HEPARIN NA (PORCINE) 5,000 UNITS/ML 1ML VIAL SQ SCH (22:40)
[2017-08-31] MEDS ORDERED: ACETAMINOPHEN INJECTION 100 ML IVPB ONE (23:08)
[2017-08-31] MEDS ORDERED: IBUPROFEN 800 MG/8 ML IJ IVPB ONE (23:10)
[2017-08-31] MEDS: IBUPROFEN 800 MG/8 ML IJ IVPB PRN (23:16)
[2017-08-31 23:30] LABS: URINE APPEARANCE SLCLOUDY; URINE BILIRUBIN NEGATIVE (NEGATIVE); URINE BLOOD 3+ (NEGATIVE); URINE COLOR YELLOW; URINE GLUCOSE (UA) NEGATIVE (NEGATIVE); URINE KETONE NEGATIVE (NEGATIVE); URINE NITRITE NEGATIVE (NEGATIVE); URINE UROBILINOGEN NEGATIVE mg/dL (0.2-1.0)
[2017-08-31 23:31] LABS: URINE PROTEIN 2+ (NEGATIVE)
[2017-08-31 23:33] LABS: URINE HYALINE CAST 6 /lpf; URINE MUCUS RARE; URINE RBC 1 /hpf (0-3); URINE WBC 4 /hpf (3-5)
[2017-08-31] MEDS ORDERED: diazePAM CARPU-JECT 10 MG/2 ML DISP.SYRIN IVPUSH ONE (23:33)
[2017-09-01] MEDS: SODIUM CHLORIDE 1,000 ML IV SCH ×2 (00:14→06:31)
--- NOTE | 2017-09-01 00:14 | PN ---
Teaching Attending Note Name of Resident: Karlee Bradford ATTENDING PHYSICIAN STATEMENT I saw and evaluated the patient. Chart, data, imaging reviewed. I reviewed the resident's note and discussed the case with the resident. I agree with the resident's findings and plan as documented with modifications in note below. SUBJECTIVE: History obtained from EMR as patient is sedated 66 year old male, with significant past medical history of multiple rib fractures with a small pneumothorax (07/16/17), ETOH abuse, and HTN, who presented to the emergency room BIB complaining of 1 and a half weeks of SOB and left sided rib pain. As per EMS, the patient did not want to come into the ED, but his landlord was able to convince him. The patient is not ambulatory, and EMS states that the patient was defecating all over his apartment and there were multiple empty beer cans everywhere. Patient states that his last alcoholic drink was 2 days ago. OBJECTIVE: Last Vital Signs Temp Pulse Resp BP Pulse Ox 105.3 F H 105 H 32 H 91/61 97 08/31/17 23:07 09/01/17 00:09 08/31/17 22:58 09/01/17 00:09 09/01/17 00:09 General -disheveled, malodorous, drowsy HEENT- no sinus tenderness Neck - supple, no masses noted CV -s1+s2+ RRR CHest - CTA b/l Abdomen- soft, nontender, BS+ Ext- no rashes Abnormal Lab Results 08/31/17 08/31/17 08/31/17 13:40 13:40 13:40 WBC 11.3 H D Plt Count 101 L D Neutrophils % 83.4 H Lymphocytes % 1.9 L D Monocytes % 14.6 H PT with INR 12.10 H Sodium 125 L Potassium 2.6 L* D Chloride 85 L D Anion Gap 17 H BUN 27 H D Creatinine 1.4 H D Random Glucose 121 H D Calcium 8.3 L Total Bilirubin 1.1 H AST 149 H D ALT 164 H D Creatine Kinase 846 H CK-MB (CK-2) 4.023 H Total Protein Albumin 2.5 L Urine Protein Urine Blood 08/31/17 08/31/17 19:50 23:22 WBC Plt Count Neutrophils % Lymphocytes % Monocytes % PT with INR Sodium 128 L Potassium 3.1 L Chloride 92 L Anion Gap BUN 27 H Creatinine Random Glucose 110 H Calcium 7.5 L Total Bilirubin AST 111 H D ALT 120 H D Creatine Kinase CK-MB (CK-2) Total Protein 6.0 L Albumin 2.1 L Urine Protein 2+ H Urine Blood 3+ H EKG - no acute ST- T wave changes CT chest seen with report- loss of left lung volume with atelectasis. Emphysema like changes. ASSESSMENT AND PLAN: #Acute alcohol withdrawal -pt is hyperthermic, tachycardic, tachypneic, and tremulous -admit to telemtry -CIWA protocol -IVF hydration with NS -banana bag -lorazepam 2mg IV q6hrs standings -lorazepam 2mg IV 2hrs PRN if agitation -fall precautions -one to one for safety # High fevers (of up to 105F rectally)-likely 2/2 etoh withdrawal. No active source of infection identified -ibuprofen PRN -avoid tylenol because of liver injury -blood cx, urine cx -consider LP if persistent high fevers and AMS #Electrolyes disturbances -hyponatremia, hypokalemia, hypochloremia - may be 2/ 2 to chronic alcoholism- beer potomania. R/o diarrhea, SIADH. No EKG changes found. -send urine lytes -send serum osmolality -send urine osmolalty -urine cr -TSH -replace electrolytes prn -telemtry for hypokalemia #ALEXANDRA - may be prerenal -avoid nephrotoxic meds -repeat UA -renal US -trend renal function #diet -npo #DVT ppx -SCDs
[2017-09-01] MEDS ORDERED: LORazepam 2 MG/ML SDV VIAL ONE (00:35)
[2017-09-01] MEDS ORDERED: PIPERACIL/TAZOB 3.375 GM 3.375 GM/50 ML PREMIX IVPB ONE (01:41)
[2017-09-01] MEDS ORDERED: VANCOMYCIN 1,000 MG in DEXTROSE 5%-WATER - 250 ML IVPB SCH (01:45)
[2017-09-01] MEDS ORDERED: VANCOMYCIN 1 GRAM (PRE-DOCKED) 250 ML IVPB ONE ×2 (02:00→02:21)
[2017-09-01] MEDS ORDERED: PIPERACILLIN/TAZOB 3.375 GM 50 ML IVPB ONE (02:05)
[2017-09-01] MEDS ORDERED: SODIUM CHLORIDE 0.9% 1000 ML INFUS.BAG IV ONE (02:11)
[2017-09-01 02:51] LABS: MCH 31.4 pg (25.7-33.7); MCHC 33.8 g/dl (32.0-35.9); MEAN CELL VOLUME 93.1 fl (80-96); MEAN PLT VOLUME 8.5 fl (7.5-11.1); PLATELET COUNT 79 K/MM3 (134-434); RDW 14.8 % (11.9-15.9); WHITE BLOOD COUNT 8.7 K/mm3 (4.0-10.0)
[2017-09-01 03:08] LABS: INR 1.06 (0.82-1.09)
[2017-09-01 03:10] LABS: ACTIVATED PTT 26.4 SECONDS (26.9-34.4)
[2017-09-01 03:18] LABS: ALBUMIN 1.8 g/dl (3.4-5.0); ANION GAP 11 (8-16); BILIRUBIN,TOTAL 0.8 mg/dL (0.2-1.0); CALCIUM 7.2 mg/dL (8.5-10.1); CO2 22 mmol/L (21-32); CREATININE 1.2 mg/dL (0.7-1.3); GLUCOSE,RANDOM 101 mg/dL (74-106); SGOT/AST 84 U/L (15-37); SGPT/ALT 91 U/L (12-78); TOT PROT 5.1 g/dl (6.4-8.2)
[2017-09-01 03:19] LABS: ALK PHOS 55 U/L (45-117)
[2017-09-01] MEDS: KCL 10 MEQ IVPB 100 ML IVPB SCH ×2 (05:01→06:11)
[2017-09-01 06:01] VITALS: BMI 29.4
[2017-09-01] MEDS: LORazepam 2 MG/ML SDV VIAL IVPUSH SCH ×3 (06:30→18:33)
[2017-09-01 07:08] LABS: PLATELET ESTIMATE MOD DECREASED (NORMAL)
[2017-09-01 07:09] LABS: MYELOCYTE 1 % (0-2); TOTAL CELLS COUNTED 100
[2017-09-01 07:10] LABS: ANISOCYTOSIS 1+; MICROCYTOSIS 1+
[2017-09-01 08:27] LABS: ARTERIAL BLD GAS O2 SATURATION 98.2 % (90-98.9); ARTERIAL BLOOD GAS HCO3 18.8 meq/L (22-26); ARTERIAL BLOOD GAS pH 7.38 (7.35-7.45)
[2017-09-01 08:32] LABS: ALLENS TEST POSITIVE; ART PUNCT SITE RIGHT RADIAL; LPM/O2% 50%; PT. ON O2? YES
[2017-09-01 08:33] LABS: TYPE OF O2 VENTIMASK
[2017-09-01 09:18] LABS: MCH 30.9 pg (25.7-33.7); MCHC 33.6 g/dl (32.0-35.9); MEAN PLT VOLUME 8.4 fl (7.5-11.1); PLATELET COUNT 82 K/MM3 (134-434); RDW 14.6 % (11.9-15.9); WHITE BLOOD COUNT 8.8 K/mm3 (4.0-10.0)
[2017-09-01 09:25] LABS: URINE APPEARANCE CLOUDY; URINE BILIRUBIN NEGATIVE (NEGATIVE); URINE BLOOD 2+ (NEGATIVE); URINE COLOR DKYELLOW; URINE GLUCOSE (UA) NEGATIVE (NEGATIVE); URINE KETONE NEGATIVE (NEGATIVE); URINE NITRITE NEGATIVE (NEGATIVE); URINE UROBILINOGEN NEGATIVE mg/dL (0.2-1.0)
[2017-09-01] MEDS: HEPARIN NA (PORCINE) 5,000 UNITS/ML 1ML VIAL SQ SCH (09:28)
[2017-09-01 09:35] LABS: URINE PROTEIN 2+ (NEGATIVE)
[2017-09-01 09:36] LABS: INR 0.96 (0.82-1.09); PROTHROMBIN TIME (PATIENT) 10.9 SEC (9.98-11.88)
[2017-09-01 09:38] LABS: GRANULAR CASTS 17 /lpf; URINE MUCUS RARE; URINE RBC 3 /hpf (0-3); URINE WBC 7 /hpf (3-5)
[2017-09-01 09:39] LABS: ACTIVATED PTT 27.1 SECONDS (26.9-34.4)
[2017-09-01 09:42] LABS: ANION GAP 11 (8-16); CALCIUM 7.4 mg/dL (8.5-10.1); CHOLESTEROL 90 mg/dL (50-200); CO2 20 mmol/L (21-32); CREATININE 1.1 mg/dL (0.7-1.3); GLUCOSE,RANDOM 88 mg/dL (74-106); MAGNESIUM 2.2 mg/dL (1.8-2.4); PHOSPHOROUS 2.4 mg/dL (2.5-4.9)
[2017-09-01 09:44] LABS: ALBUMIN 1.7 g/dl (3.4-5.0); ALK PHOS 68 U/L (45-117); ANION GAP 10 (8-16); BILIRUBIN,TOTAL 0.9 mg/dL (0.2-1.0); CALCIUM 7.5 mg/dL (8.5-10.1); CO2 20 mmol/L (21-32); CREATININE 1.2 mg/dL (0.7-1.3); GLUCOSE,RANDOM 88 mg/dL (74-106); SGOT/AST 100 U/L (15-37); TOT PROT 5.4 g/dl (6.4-8.2)
[2017-09-01 09:47] LABS: SGPT/ALT 91 U/L (12-78)
[2017-09-01] MEDS ORDERED: LORazepam 1 MG TABLET PO SCH (10:00)
[2017-09-01 10:04] LABS: PLATELET ESTIMATE DECREASED (NORMAL)
[2017-09-01 10:05] LABS: TOTAL CELLS COUNTED 100
[2017-09-01] MEDS: IBUPROFEN 800 MG/8 ML IJ IVPB PRN (10:32)
--- NOTE | 2017-09-01 11:04 | EKG ---
Test Reason : Blood Pressure : / mmHG Vent. Rate : 105 BPM Atrial Rate : 105 BPM P-R Int : 170 ms QRS Dur : 090 ms QT Int : 340 ms P-R-T Axes : 018 -01 -01 degrees QTc Int : 449 ms SINUS TACHYCARDIA INFERIOR INFARCT , AGE UNDETERMINED ABNORMAL ECG WHEN COMPARED WITH ECG OF 31-AUG-2017 12:57, PREMATURE ATRIAL COMPLEXES ARE NO LONGER PRESENT Confirmed by JONNIE ADAM MD ([id number]) on 09/01/2017 11:03:38 AM Referred By: Confirmed By:JONNIE ADAM MD
--- NOTE | 2017-09-01 11:05 | EKG ---
Test Reason : Blood Pressure : / mmHG Vent. Rate : 111 BPM Atrial Rate : 111 BPM P-R Int : 162 ms QRS Dur : 090 ms QT Int : 348 ms P-R-T Axes : 035 009 010 degrees QTc Int : 473 ms SINUS TACHYCARDIA WITH PREMATURE ATRIAL COMPLEXES POSSIBLE ANTERIOR INFARCT , AGE UNDETERMINED ABNORMAL ECG WHEN COMPARED WITH ECG OF 16-JUL-2017 16:41, PREMATURE ATRIAL COMPLEXES ARE NOW PRESENT Confirmed by JONNIE ADAM MD ([id number]) on 09/01/2017 11:05:08 AM Referred By: Confirmed By:JONNIE ADAM MD
[2017-09-01] MEDS ORDERED: FLU VACCINE QUAD 60 MCG/0.5 ML (MDV 17-18) IM ONE (12:00)
[2017-09-01 12:01] LABS: URINE LEUK ESTERASE Negative (NEGATIVE)
[2017-09-01] MEDS ORDERED: chlordiazePOXIDE HCL 25 MG CAPSULE PO PRN (12:12)
[2017-09-01] MEDS ORDERED: CEFTRIAXONE 2 GM in DEXTROSE 5%-WATER - 100 ML IVPB SCH (12:15)
--- NOTE | 2017-09-01 12:18 | PN ---
Progress Note (short form) - Note Progress Note: ID Consult dictated High grade fever in this 66 year old alcoholic male found on floor at home. Fever secondary to ETOH withdrawal v. aspiration Thrombocytopenia ETOH abuse Await c/s Empiric ceftriaxone HIV testing
[2017-09-01] MEDS ORDERED: BACITRACIN 15 GM TUBE TOPICAL OINTMENT TP SCH (12:30)
--- NOTE | 2017-09-01 12:44 | PN ---
Physical Exam: SUBJECTIVE: Patient seen and examined. He denies chills, cough, SOB. OBJECTIVE: Vital Signs Period Temp Pulse Resp BP Sys/Jeff Pulse Ox Last 24 Hr 98.3 F-105.3 F 94-115 24-36 85-121/61-86 97-100 GENERAL: The patient is awake, alert, and fully oriented, tremulous. LUNGS: Breath sounds equal, clear to auscultation bilaterally, no wheezes, no crackles, no accessory muscle use. HEART: Irregularly irregular, tachycardic. ABDOMEN: Soft, nontender, nondistended, normoactive bowel sounds, no guarding, no rebound, no masses. EXTREMITIES: 2+ pulses, warm, well-perfused, no edema. Multiple abrasions to both legs. Laboratory Results - last 24 hr 08/31/17 08/31/17 08/31/17 19:50 19:50 21:45 WBC RBC Hgb Hct MCV MCH MCHC RDW Plt Count MPV Total Counted Neutrophils % Neutrophils % (Manual) Band Neuts % (Manual) Lymphocytes % Lymphocytes % (Manual) Monocytes % Monocytes % (Manual) Eosinophils % (Manual) Myelocytes % (Man) Platelet Estimate Platelet Comment Anisocytosis Microcytosis PT with INR INR PTT (Actin FS) Puncture Site ABG pH ABG pCO2 at Pt Temp ABG pO2 at Pt Temp ABG HCO3 ABG O2 Sat (Measured) ABG O2 Content ABG Base Excess Anoop Test O2 Delivery Device Oxygen Flow Rate PEEP Sodium 128 L Potassium 3.1 L Chloride 92 L Carbon Dioxide 26 Anion Gap 10 BUN 27 H Creatinine 1.3 Creat Clearance w eGFR 55.06 Random Glucose 110 H Lactic Acid 1.1 Calcium 7.5 L Phosphorus 2.6 Magnesium 1.9 Total Bilirubin 0.8 D AST 111 H D ALT 120 H D Alkaline Phosphatase 63 Total Protein 6.0 L Albumin 2.1 L Triglycerides Cholesterol Total LDL Cholesterol HDL Cholesterol Urine Color Urine Appearance Urine pH Ur Specific [place] Urine Protein Urine Glucose (UA) Urine Ketones Urine Blood Urine Nitrite Urine Bilirubin Urine Urobilinogen Ur Leukocyte Esterase Urine RBC Urine WBC Hyaline Casts Granular Casts Urine Mucus Urine Osmolality Ur Random Sodium 08/31/17 09/01/17 09/01/17 23:22 02:11 02:11 WBC 8.7 RBC 3.45 L D Hgb 10.8 L D Hct 32.1 L D MCV 93.1 MCH 31.4 MCHC 33.8 RDW 14.8 Plt Count 79 L D MPV 8.5 Total Counted 100 Neutrophils % 67.0 Neutrophils % (Manual) Band Neuts % (Manual) Lymphocytes % 11.0 D Lymphocytes % (Manual) Monocytes % 21.0 H Monocytes % (Manual) Eosinophils % (Manual) Myelocytes % (Man) 1 Platelet Estimate Mod decreased Platelet Comment No clumping noted Anisocytosis 1+ Microcytosis 1+ PT with INR 12.00 H INR 1.06 PTT (Actin FS) 26.4 L Puncture Site ABG pH ABG pCO2 at Pt Temp ABG pO2 at Pt Temp ABG HCO3 ABG O2 Sat (Measured) ABG O2 Content ABG Base Excess Anoop Test O2 Delivery Device Oxygen Flow Rate PEEP Sodium Potassium Chloride Carbon Dioxide Anion Gap BUN Creatinine Creat Clearance w eGFR Random Glucose Lactic Acid Calcium Phosphorus Magnesium Total Bilirubin AST ALT Alkaline Phosphatase Total Protein Albumin Triglycerides Cholesterol Total LDL Cholesterol HDL Cholesterol Urine Color Yellow Urine Appearance Slcloudy Urine pH 6.0 Ur Specific [place] 1.025 Urine Protein 2+ H Urine Glucose (UA) Negative Urine Ketones Negative Urine Blood 3+ H Urine Nitrite Negative Urine Bilirubin Negative Urine Urobilinogen Negative Ur Leukocyte Esterase Negative Urine RBC 1 Urine WBC 4 Hyaline Casts 6 Granular Casts Urine Mucus Rare Urine Osmolality Ur Random Sodium 09/01/17 09/01/17 09/01/17 02:11 02:11 05:30 WBC RBC Hgb Hct MCV MCH MCHC RDW Plt Count MPV Total Counted Neutrophils % Neutrophils % (Manual) Band Neuts % (Manual) Lymphocytes % Lymphocytes % (Manual) Monocytes % Monocytes % (Manual) Eosinophils % (Manual) Myelocytes % (Man) Platelet Estimate Platelet Comment Anisocytosis Microcytosis PT with INR INR PTT (Actin FS) Puncture Site ABG pH ABG pCO2 at Pt Temp ABG pO2 at Pt Temp ABG HCO3 ABG O2 Sat (Measured) ABG O2 Content ABG Base Excess Anoop Test O2 Delivery Device Oxygen Flow Rate PEEP Sodium 133 L Potassium 2.8 L* Chloride 100 Carbon Dioxide 22 Anion Gap 11 BUN 24 H Creatinine 1.2 Creat Clearance w eGFR > 60 Random Glucose 101 Lactic Acid 1.2 Calcium 7.2 L Phosphorus Magnesium Total Bilirubin 0.8 AST 84 H D ALT 91 H D Alkaline Phosphatase 55 Total Protein 5.1 L Albumin 1.8 L Triglycerides Cholesterol Total LDL Cholesterol HDL Cholesterol Urine Color Urine Appearance Urine pH Ur Specific [place] Urine Protein Urine Glucose (UA) Urine Ketones Urine Blood Urine Nitrite Urine Bilirubin Urine Urobilinogen Ur Leukocyte Esterase Urine RBC Urine WBC Hyaline Casts Granular Casts Urine Mucus Urine Osmolality Ur Random Sodium 7 09/01/17 09/01/17 09/01/17 05:30 08:10 09:05 WBC 8.8 RBC 3.67 L Hgb 11.4 L Hct 33.8 L MCV 92.0 MCH 30.9 MCHC 33.6 RDW 14.6 Plt Count 82 L MPV 8.4 Total Counted 100 Neutrophils % No Result Required. Neutrophils % (Manual) 82 Band Neuts % (Manual) 3 Lymphocytes % No Result Required. Lymphocytes % (Manual) 2 L Monocytes % Monocytes % (Manual) 12 H Eosinophils % (Manual) 1 Myelocytes % (Man) Platelet Estimate Decreased Platelet Comment No clumping noted Anisocytosis Microcytosis PT with INR INR PTT (Actin FS) Puncture Site Right radial ABG pH 7.38 ABG pCO2 at Pt Temp 32.4 L ABG pO2 at Pt Temp 102.0 H ABG HCO3 18.8 L ABG O2 Sat (Measured) 98.2 ABG O2 Content 15.7 ABG Base Excess -5.0 L Anoop Test Positive O2 Delivery Device Ventimask Oxygen Flow Rate 50% PEEP 0.0 Sodium Potassium Chloride Carbon Dioxide Anion Gap BUN Creatinine Creat Clearance w eGFR Random Glucose Lactic Acid Calcium Phosphorus Magnesium Total Bilirubin AST ALT Alkaline Phosphatase Total Protein Albumin Triglycerides Cholesterol Total LDL Cholesterol HDL Cholesterol Urine Color Dkyellow Urine Appearance Cloudy Urine pH 5.0 Ur Specific [place] Urine Protein 2+ H Urine Glucose (UA) Negative Urine Ketones Negative Urine Blood 2+ H Urine Nitrite Negative Urine Bilirubin Negative Urine Urobilinogen Negative Ur Leukocyte Esterase Urine RBC 3 Urine WBC 7 Hyaline Casts Granular Casts 17 Urine Mucus Rare Urine Osmolality Ur Random Sodium 09/01/17 09/01/17 09/01/17 09:05 09:05 09:05 WBC RBC Hgb Hct MCV MCH MCHC RDW Plt Count MPV Total Counted Neutrophils % Neutrophils % (Manual) Band Neuts % (Manual) Lymphocytes % Lymphocytes % (Manual) Monocytes % Monocytes % (Manual) Eosinophils % (Manual) Myelocytes % (Man) Platelet Estimate Platelet Comment Anisocytosis Microcytosis PT with INR 10.90 INR 0.96 PTT (Actin FS) 27.1 Puncture Site ABG pH ABG pCO2 at Pt Temp ABG pO2 at Pt Temp ABG HCO3 ABG O2 Sat (Measured) ABG O2 Content ABG Base Excess Anoop Test O2 Delivery Device Oxygen Flow Rate PEEP Sodium 133 L Potassium 3.4 L D Chloride 102 Carbon Dioxide 20 L Anion Gap 11 BUN 25 H Creatinine 1.1 Creat Clearance w eGFR Random Glucose 88 Lactic Acid 1.4 Calcium 7.4 L Phosphorus 2.4 L Magnesium 2.2 Total Bilirubin AST ALT Alkaline Phosphatase Total Protein Albumin Triglycerides 181 H Cholesterol 90 Total LDL Cholesterol 15 HDL Cholesterol 19 L Urine Color Urine Appearance Urine pH Ur Specific [place] Urine Protein Urine Glucose (UA) Urine Ketones Urine Blood Urine Nitrite Urine Bilirubin Urine Urobilinogen Ur Leukocyte Esterase Urine RBC Urine WBC Hyaline Casts Granular Casts Urine Mucus Urine Osmolality Ur Random Sodium 09/01/17 09/01/17 09:05 12:00 WBC RBC Hgb Hct MCV MCH MCHC RDW Plt Count MPV Total Counted Neutrophils % Neutrophils % (Manual) Band Neuts % (Manual) Lymphocytes % Lymphocytes % (Manual) Monocytes % Monocytes % (Manual) Eosinophils % (Manual) Myelocytes % (Man) Platelet Estimate Platelet Comment Anisocytosis Microcytosis PT with INR INR PTT (Actin FS) Puncture Site ABG pH ABG pCO2 at Pt Temp ABG pO2 at Pt Temp ABG HCO3 ABG O2 Sat (Measured) ABG O2 Content ABG Base Excess Anoop Test O2 Delivery Device Oxygen Flow Rate PEEP Sodium 131 L Potassium 3.4 L Chloride 101 Carbon Dioxide 20 L Anion Gap 10 BUN 24 H Creatinine 1.2 Creat Clearance w eGFR > 60 Random Glucose 88 Lactic Acid Calcium 7.5 L Phosphorus Magnesium Total Bilirubin 0.9 AST 100 H ALT 91 H Alkaline Phosphatase 68 D Total Protein 5.4 L Albumin 1.7 L Triglycerides Cholesterol Total LDL Cholesterol HDL Cholesterol Urine Color Urine Appearance Urine pH Ur Specific [place] Urine Protein Urine Glucose (UA) Urine Ketones Urine Blood Urine Nitrite Urine Bilirubin Urine Urobilinogen Ur Leukocyte Esterase Urine RBC Urine WBC Hyaline Casts Granular Casts Urine Mucus Urine Osmolality 511 Ur Random Sodium Active Medications Generic Name Dose Route Start Last Admin Trade Name Freq PRN Reason Stop Dose Admin Bacitracin 1 applic 09/01/17 12:30 Bacitracin - TP DAILY KINGS Chlordiazepoxide HCl 50 mg 09/01/17 11:00 Librium - PO 09/02/17 05:01 [id number] KINGS Chlordiazepoxide HCl 25 mg 09/01/17 12:12 Librium - PO 09/04/17 12:11 Q4H PRN WITHDRAWAL(CONT SUBST) Chlordiazepoxide HCl 25 mg 09/02/17 11:00 Librium - PO 09/03/17 05:01 [id number] KINGS Chlordiazepoxide HCl 15 mg 09/03/17 11:00 Librium - PO 09/04/17 05:01 [id number] KINGS Heparin Sodium (Porcine) 5,000 unit 08/31/17 22:00 09/01/17 09:28 Heparin - SQ 5,000 unit BID KINGS Administration Sodium Chloride 1,000 mls @ 83 mls/hr 08/31/17 22:45 09/01/17 06:31 Normal Saline - IV 83 mls/hr ASDIR KINGS Administration Ceftriaxone Sodium 2 gm/ 100 mls @ 200 mls/hr 09/01/17 12:15 Dextrose IVPB DAILY KINGS Ibuprofen 800 mg 08/31/17 23:09 09/01/17 10:32 Caldolor Injection - IVPB 800 mg Q6H PRN Administration FEVER Lorazepam 2 mg 09/01/17 06:08 Ativan Injection - IVPUSH Q2H PRN ANXIETY Lorazepam 2 mg 09/01/17 06:09 09/01/17 06:30 Ativan Injection - IVPUSH 2 mg Q6HPO KINGS Administration Potassium Chloride 40 meq 09/01/17 12:13 K-Dur - PO 09/01/17 12:14 ONCE ONE ASSESSMENT/PLAN: This is a 66 year old man with a history of alcohol abuse, HTN who presented to the ER after being found on the floor. 1. SIRS secondary to alcohol withdrawal, possible sepsis secondary to pneumonia - Continue Librium detox - Contiue IV fluid - Continue Rocephin - Follow up blood cultures 2. Hypokalemia - Replete potassium 3. Hyponatremia - Improving with IV fluid 4. Dehydration - Continue IV fluid 5. Hepatic transaminitis - Likely secondary to alcohol - Monitor LFTs - US shows hepatosplenomegaly and fatty infiltration of liver 6. Thrombocytopenia - Secondary to alcohol, splenomegaly - Stable 7. HTN - On no medication 8. Chronic right subdural hematoma 9. Continuous alcohol dependence - Start thiamine, folic acid, multivitamin Visit type - Emergency Visit Emergency Visit: Yes ED Registration Date: 08/31/17 Care time: The patient presented to the Emergency Department on the above date and was hospitalized for further evaluation of their emergent condition. - New Patient This patient is new to me today: Yes Date on this admission: 09/01/17 - Critical Care Critical Care patient: No - Discharge Referral Referred to [facility] No
--- NOTE | 2017-09-01 13:03 | CONS ---
DATE OF CONSULTATION: DATE OF DICTATION: 09/01/2017 HISTORY OF PRESENT ILLNESS: The patient is a 66-year-old alcoholic male who was evaluated for a high-grade fever. History was obtained from the chart. He was found on the floor by EMS at his residence covered in feces and with many empty beer cans around him. He was brought to the emergency room where he complained of shortness of breath and left-sided rib pain for 1 week. His course was complicated by high grade fever, tachycardia, and tremor. He was treated for acute alcohol withdrawal. He was admitted to the telemetry unit where his course has been complicated by persistent fever. He is presently awake and responsive. He complains of left rib pain. He was recently hospitalized at [facility] from July 16, 2017 through July 23, 2017 for alcohol withdrawal syndrome. He is awake and alert. At present he denies any chest pain or shortness of breath. He appears mildly dyspneic on VentiMask. He denies any cough or sputum production, no vomiting, or diarrhea, no dysuria or hematuria. PAST MEDICAL HISTORY: Positive for hypertension and alcohol abuse. ALLERGIES: No known allergies. MEDICATIONS: Folic acid, multivitamins, and thiamine. SOCIAL HISTORY: Former smoker. He is an active alcohol user and has been admitted for detox in the past. SYSTEMS REVIEW: Neurologic: No seizure activity or focal weakness. Cardiac: Negative chest pain or palpitations. Respiratory: As per HPI. Gastrointestinal: Negative vomiting or diarrhea. Genitourinary: Negative for urinary tract infection. LABORATORY DATA: White count 8.8, hematocrit 33.8, and platelet count 82. BUN 24, creatinine 1.2. Alcohol level less than 5. Urinalysis: 7 white cells. Total bilirubin 0.9, alkaline phosphatase 68, AST 100, and ALT 91. Chest x -ray shows no focal infiltrate. PHYSICAL EXAMINATION: General: He is awake and alert. He is in no acute distress. Vital Signs: Temperature 103.4, blood pressure 108/86, pulse 115 and regular, and respirations 30 per minute. HEENT: Sclerae anicteric. Heart: Sounds S1, S2. Tachycardic. Lungs: Clear breath sounds bilaterally. Abdomen: Soft. No tenderness elicited. No masses, rebound or rigidity. Extremities: Negative for edema. Healed abrasions noted in the lower extremities bilaterally. IMPRESSION: 1. High grade fever in a 66-year-old alcoholic male found on the floor at home. 2. Fever secondary to alcohol withdrawal syndrome versus aspiration. 3. History of ethyl alcohol abuse. 4. Thrombocytopenia. 5. Multiple left rib fractures. RECOMMENDATIONS: Await culture results and empiric antibiotic coverage for aspiration with ceftriaxone 2 mg IV piggyback daily. Alcohol withdrawal protocol. HIV testing (the patient gives oral consent). Will follow. Thank you for the kind referral. JONNIE MILLS M.D. [id number]
[2017-09-01] MEDS: chlordiazePOXIDE HCL 25 MG CAPSULE PO SCH ×3 (13:44→22:08)
[2017-09-01] MEDS ORDERED: POTASSIUM CHLORIDE TABS 20 MEQ TABLET.ER (FP) PO ONE (14:00)
[2017-09-01 15:09] LABS: URINE LEUK ESTERASE Negative (NEGATIVE)
[2017-09-01] MEDS ORDERED: VANCOMYCIN 1,000 MG in DEXTROSE 5%-WATER - 250 ML IVPB ONE (15:19)
[2017-09-01] MEDS ORDERED: SODIUM CHLORIDE 1,000 ML IV STA (17:52)
[2017-09-01] MEDS ORDERED: VANCOMYCIN 1,250 MG in DEXTROSE 5%-WATER - 250 ML IVPB ONE (17:59)
[2017-09-01 18:03] LABS: ARTERIAL BLD GAS O2 SATURATION 97.6 % (90-98.9); ARTERIAL BLOOD GAS BASE EXCESS -5.9 meq/l (-2-2); ARTERIAL BLOOD GAS HCO3 17.7 meq/L (22-26); ARTERIAL BLOOD GAS pH 7.38 (7.35-7.45)
[2017-09-01 18:09] LABS: ALLENS TEST POSITIVE; ART PUNCT SITE LEFT RADIAL; LPM/O2% 50%; PT. ON O2? YES; TYPE OF O2 VENT/MASK
[2017-09-01] MEDS: LORazepam 2 MG/ML SDV VIAL IVPUSH PRN ×2 (18:25→23:43)
--- NOTE | 2017-09-01 18:46 | HOSP ---
Subjective - Review of Symptoms Events since last encounter: Was called by nurse because patient's BP wasn't increasing after a bolus of Normal saline. On my arrival patient had labored breathing, O2 sat was 80% on a ventimask 50% fiO2. Stat Chest Xray and ABG was ordered with 2L Bolus of NS. BP was 70/40 and respiratory rate was in the 40's. Patient improved after fluid administration and with venti-mask. Blood cultures positive for gram + cocci with vancomycin added. Physical Examination Vital Signs: Vital Signs Temperature 98 F 09/01/17 15:00 Pulse Rate 98 H 09/01/17 16:59 Respiratory Rate 30 H 09/01/17 16:59 Blood Pressure 80/65 09/01/17 16:59 O2 Sat by Pulse Oximetry (%) 95 09/01/17 09:00 Labs: CBC, BMP 09/01/17 09:05 09/01/17 09:05 Visit type - Emergency Visit Emergency Visit: Yes ED Registration Date: 08/31/17 Care time: The patient presented to the Emergency Department on the above date and was hospitalized for further evaluation of their emergent condition. - New Patient This patient is new to me today: Yes Date on this admission: 09/01/17 - Critical Care Critical Care patient: No
[2017-09-01] MEDS ORDERED: SODIUM CHLORIDE 1,000 ML IV SCH (19:08)
[2017-09-01] MEDS ORDERED: HEPARIN NA (PORCINE) 5,000 UNITS/ML 1ML VIAL SQ SCH (22:00)
--- NOTE | 2017-09-01 23:49 | HOSP ---
Subjective - Review of Symptoms Subjective: Saw pt. at bedside for inc. RR Pt. able to speak fulls sentences in mild distess Physical: VS: Vital Signs Period Temp Pulse Resp BP Sys/Jeff Pulse Ox Last 24 Hr 98 F-103.4 F 94-115 24-36 76-108/50-86 95-98 GEN: Mild distess, Resting in bed, able to speak full sentences CARD: RRR S1, S2 RESP: Coarse breath sounds all merchant CBCD WBC 8.8 K/mm3 (4.0-10.0) 09/01/17 09:05 RBC 3.67 M/mm3 (4.00-5.60) L 09/01/17 09:05 Hgb 11.4 GM/dL (11.7-16.9) L 09/01/17 09:05 Hct 33.8 % (35.4-49) L 09/01/17 09:05 MCV 92.0 fl (80-96) 09/01/17 09:05 MCHC 33.6 g/dl (32.0-35.9) 09/01/17 09:05 RDW 14.6 % (11.9-15.9) 09/01/17 09:05 Plt Count 82 K/MM3 (134-434) L 09/01/17 09:05 MPV 8.4 fl (7.5-11.1) 09/01/17 09:05 CMP Sodium 131 mmol/L (136-145) L 09/01/17 09:05 Potassium 3.4 mmol/L (3.5-5.1) L 09/01/17 09:05 Chloride 101 mmol/L (98-107) 09/01/17 09:05 Carbon Dioxide 20 mmol/L (21-32) L 09/01/17 09:05 Anion Gap 10 (8-16) 09/01/17 09:05 BUN 24 mg/dL (7-18) H 09/01/17 09:05 Creatinine 1.2 mg/dL (0.7-1.3) 09/01/17 09:05 Creat Clearance w eGFR > 60 (>60) 09/01/17 09:05 Random Glucose 88 mg/dL (74-106) 09/01/17 09:05 Calcium 7.5 mg/dL (8.5-10.1) L 09/01/17 09:05 Total Bilirubin 0.9 mg/dL (0.2-1.0) 09/01/17 09:05 AST 100 U/L (15-37) H 09/01/17 09:05 ALT 91 U/L (12-78) H 09/01/17 09:05 Alkaline Phosphatase 68 U/L (45-117) D 09/01/17 09:05 Total Protein 5.4 g/dl (6.4-8.2) L 09/01/17 09:05 Albumin 1.7 g/dl (3.4-5.0) L 09/01/17 09:05 CARDIAC ENZYMES Creatine Kinase 846 IU/L (39-308) H 08/31/17 13:40 Troponin I 0.03 ng/ml (0.00-0.05) D 08/31/17 13:40 SEPSIS due to PNA, (asp),/Withdrawl Ativan administered - ABG if no improvement in RR - Will have LOW threshold for intubation - Repeat CXR CC time: 15 minutes Physical Examination Vital Signs: Vital Signs Temperature 100.0 F H 09/01/17 18:15 Pulse Rate 103 H 09/01/17 18:15 Respiratory Rate 30 H 09/01/17 18:15 Blood Pressure 86/52 09/01/17 18:15 O2 Sat by Pulse Oximetry (%) 95 09/01/17 09:00 Labs: CBC, BMP 09/01/17 09:05 09/01/17 09:05
[2017-09-02] MEDS ORDERED: MIDAZOLAM HCL 2 MG/2 ML SINGLE DOSE VIAL IVPUSH ONE (00:11)
[2017-09-02] MEDS ORDERED: PROPOFOL 200 MG/20 ML VIAL IVPUSH ONE (00:12)
[2017-09-02] MEDS ORDERED: ROCURONIUM BROMIDE 50 MG/5 ML VIAL IV ONE (00:13)
[2017-09-02] MEDS ORDERED: MIDAZOLAM HCL 2 MG/2 ML SINGLE DOSE VIAL ONE (00:14)
[2017-09-02] MEDS ORDERED: PHENYLEPHRINE HCL 20,000 MCG in SODIUM CHLORIDE 248 ML IVPB SCH (00:15)
[2017-09-02] MEDS ORDERED: PROPOFOL 100 ML IVPUSH SCH (00:15)
[2017-09-02] MEDS ORDERED: PHENYLEPHRINE HCL 10 MG/1 ML SINGLE DOSE VIAL ONE ×5 (00:20→22:16)
--- NOTE | 2017-09-02 00:37 | PROC ---
Intubation - Intubation Reason for Intubation: Respiratory Failure Time of Intubation: 00:20 Intubation Method: orotracheal Blade used: Mac (4.0) Tube Size (cm): 8.0 Tube position @ lip (cm): 22 Tube position confirmed by: Direct visualization, CO2 detector, Breath sounds Breath Sounds after Intubation: equal Post Intubation Xray: Yes (pENDING) Remarks: Grade one view easy intubation Meds: versed: 2mg, Fentanyl 100mcg, Propofol 40mg, phenylephrine: 160mcg, Rocuronium 50mg Patient tolerated procedure well w/o complication Boerem ACNP Pulm/CCM
--- NOTE | 2017-09-02 00:42 | CONSULT ---
Consult Consult Specialty:: Pulm/CCM Reason for Consultation:: Resp failure - History of Present Illness Chief Complaint: SOB, dyspnea History of Present Illness: This is a 66yo man with EtOH abuse presented after being found altered by landlord. In ED patient reported last drink 2 days [employer]. Normal EtOH intake 8, 16oz beers per day. He has undergone unsuccessfully detox in past. In ED patient found to have fractured rib and small left sided pneumothorax. Patient with high fevers felt most likely related to withdrawal but also concerning for aspiration pneumonia given hypoxia, increased RR and retrocardiac opacity. Blood cultures positive for GPC x2 sets. ID was consulted and patient staqred on ceftriaxone and vanco. PAtient admitted to telemetry where he cont to have fevers. He was started on librium and ativan for EtOH withdrawal. Patient with progressive hypoxia and increased WOB. I was called to evaluate the patient for RR 40-50, coarse breath sounds with ineffective cough.Patient stated he was having difficulty breathing and was getting tired. Patient was intubated w/o complication. Sputum culture sent (thick pale yellow). - History Source History Provided By: Family Member, Medical Record Limitations to Obtaining History: Poor Historian - Past Medical History Cardio/Vascular: Yes: HTN Musculoskeletal: Yes: Other (left rib pain ) Additional Medical History: chronic alcoholism with multiple detox and rehabs in the past.most recent at [facility] x 12 months - states he began drinking immediately after d/c . - Alcohol/Substance Use Hx Alcohol Use: Yes Number of Drinks Daily: 8 (He states he drinks about 8 16oz drinks per day) - Smoking History Smoking history: Former smoker Have you smoked in the past 12 months: No If you are a former smoker, when did you quit?: 42 years ago - Social History ADL: Independent Home Medications - Allergies Allergies/Adverse Reactions: Allergies Allergy/AdvReac Type Severity Reaction Status Date / Time No Known Allergies Allergy Verified 07/16/17 15:34 - Home Medications Home Medications: Ambulatory Orders Unobtainable [Unobtainable] 08/31/17 Family Disease History - Family Disease History Family History: Unremarkable Review of Systems Unable to obtain ROS, reason: mental status Physical Exam Vital Signs: Vital Signs Temperature 99.8 F H 09/01/17 22:00 Pulse Rate 102 H 09/01/17 22:00 Respiratory Rate 36 H 09/01/17 22:00 Blood Pressure 100/75 09/01/17 22:00 O2 Sat by Pulse Oximetry (%) 95 09/01/17 09:00 Constitutional: Yes: Moderate Distress Eyes: Yes: PERRL Cardiovascular: Yes: Tachycardia, S1, S2 Respiratory: Yes: Rhonchi, SOB Gastrointestinal: Yes: Normal Bowel Sounds, Soft, Abdomen, Obese Edema: No Neurological: Yes: Confusion, Tremors Labs: CBC, BMP 09/01/17 09:05 09/01/17 09:05 Imaging - Results Chest X-ray: Report Reviewed, Image Reviewed Problem List - Problems (1) Respiratory failure with hypoxia Code(s): J96.91 - RESPIRATORY FAILURE, UNSPECIFIED WITH HYPOXIA (2) Pneumonia Code(s): J18.9 - PNEUMONIA, UNSPECIFIED ORGANISM (3) Abuse, drug or alcohol Code(s): F19.10 - OTHER PSYCHOACTIVE SUBSTANCE ABUSE, UNCOMPLICATED Assessment/Plan A/P: 66 yo man active EtOH withdrawal, fx rib c/b pneumothorax, hypoxic respiratory failure likely related to aspiration pneumonia -mechanical ventilation, low tidal volumes -titrate fio2 for Sat >90% -CXR pending, watch pneumothorax -Send sputum cultures -Cont ABX per ID -Propofol for vent synchrony and EtOH withdrawal. -daily awakenings and SBT once stable -feeding tube placement -cont librium to help facilitate propofol wean -GI/DVT prophylaxis Boejason ACNP Pulm/CCM CCT: 45m
[2017-09-02 01:17] LABS: ALLENS TEST POSITIVE; ART PUNCT SITE LEFT RADIAL; ARTERIAL BLD GAS O2 SATURATION 98.8 % (90-98.9); ARTERIAL BLOOD GAS HCO3 18.3 meq/L (22-26); ARTERIAL BLOOD GAS pH 7.31 (7.35-7.45); LPM/O2% 100%; MECH. VENT. Y; PT. ON O2? YES; TYPE OF O2 VENT; VENT RATE 20; VT/PRESS 450
[2017-09-02] MEDS ORDERED: VANCOMYCIN 1,000 MG in DEXTROSE 5%-WATER - 250 ML IVPB SCH (05:00)
[2017-09-02] MEDS ORDERED: chlordiazePOXIDE HCL 25 MG CAPSULE PO PRN (05:17)
[2017-09-02] MEDS ORDERED: LORazepam 2 MG/ML SDV VIAL IVPUSH PRN (05:17)
[2017-09-02] MEDS: chlordiazePOXIDE HCL 25 MG CAPSULE PO SCH ×3 (05:56→18:33)
[2017-09-02] MEDS: PROPOFOL 100 ML IVPUSH SCH ×2 (05:57→22:00)
[2017-09-02] MEDS: PHENYLEPHRINE HCL 20,000 MCG in SODIUM CHLORIDE 248 ML IVPB SCH ×3 (05:58→22:12)
[2017-09-02] MEDS: SODIUM CHLORIDE 1,000 ML IV SCH ×2 (05:59→22:01)
[2017-09-02 06:00] LABS: BASOPHIL 0.3 % (0-2.0); EOSINOPHIL 0.3 % (0-4.5); MCH 31.3 pg (25.7-33.7); MCHC 33.2 g/dl (32.0-35.9); MEAN CELL VOLUME 94.3 fl (80-96); MEAN PLT VOLUME 9.6 fl (7.5-11.1); NEUTROPHILS 85.9 % (42.8-82.8); PLATELET COUNT 164 K/MM3 (134-434); WHITE BLOOD COUNT 16.9 K/mm3 (4.0-10.0)
[2017-09-02] MEDS: HEPARIN NA (PORCINE) 5,000 UNITS/ML 1ML VIAL SQ SCH ×3 (06:00→22:09)
[2017-09-02 06:38] LABS: ALBUMIN 1.6 g/dl (3.4-5.0); ANION GAP 13 (8-16); CALCIUM 7.4 mg/dL (8.5-10.1); CO2 19 mmol/L (21-32); GLUCOSE,RANDOM 98 mg/dL (74-106); MAGNESIUM 2.1 mg/dL (1.8-2.4)
[2017-09-02 06:42] LABS: ALK PHOS 72 U/L (45-117); BILIRUBIN,DIRECT 0.4 mg/dL (0.0-0.2); BILIRUBIN,TOTAL 0.6 mg/dL (0.2-1.0); CREATININE 1.2 mg/dL (0.7-1.3); PHOSPHOROUS 2.5 mg/dL (2.5-4.9); SGOT/AST 102 U/L (15-37); SGPT/ALT 80 U/L (12-78); TOT PROT 5.3 g/dl (6.4-8.2)
[2017-09-02] MEDS ORDERED: VANCOMYCIN 1 GRAM (PRE-DOCKED) 1,000 MG/250 ML BAG IVPB ONE (06:49)
[2017-09-02 07:13] LABS: HIV 1 & 2 AB NEGATIVE; HIV 1 AGp24 NEGATIVE
[2017-09-02 07:26] LABS: ARTERIAL BLD GAS O2 SATURATION 99.9 % (90-98.9); ARTERIAL BLOOD GAS BASE EXCESS -6.3 meq/l (-2-2); ARTERIAL BLOOD GAS HCO3 17.5 meq/L (22-26); ARTERIAL BLOOD GAS pH 7.38 (7.35-7.45)
[2017-09-02 07:28] LABS: ALLENS TEST POSITIVE; ART PUNCT SITE RIGHT RADIAL; LPM/O2% 80; MECH. VENT. YES; PT. ON O2? YES; TYPE OF O2 VENT; VT/PRESS 450
[2017-09-02 07:29] LABS: VENT RATE 25
--- NOTE | 2017-09-02 07:48 | PN ---
Progress Note, Physician Chief Complaint: ID Marcelao Ceftriaxone Intubated - Current Medication List Current Medications: Active Medications Bacitracin (Bacitracin -) 1 applic TP DAILY [facility] Chlordiazepoxide HCl (Librium -) 25 mg PO Q4H PRN PRN Reason: WITHDRAWAL(CONT SUBST) Stop: 09/04/17 12:11 Chlordiazepoxide HCl (Librium -) 25 mg PO [id number] [facility] Stop: 09/03/17 05:01 Chlordiazepoxide HCl (Librium -) 15 mg PO [id number] [facility] Stop: 09/04/17 05:01 Folic Acid (Folic Acid -) 1 mg PO DAILY [facility] Heparin Sodium (Porcine) (Heparin -) 5,000 unit SQ TID [facility] Last Admin: 09/02/17 06:00 Dose: 5,000 unit Ceftriaxone Sodium 2 gm/ (Dextrose) 100 mls @ 200 mls/hr IVPB DAILY [facility] Famotidine/Sodium Chloride (Pepcid 20 Mg Premixed Ivpb -) 50 mls @ 100 mls/hr IVPB BID [facility] Phenylephrine HCl 20,000 mcg/ (Sodium Chloride) 250 mls @ 75 mls/hr IVPB TITR KINGS; 100 MCG/MIN PRN Reason: Protocol Last Admin: 09/02/17 05:58 Dose: 37.5 mls/hr Propofol (Diprivan -) 100 mls @ 5.269 mls/hr IVPUSH TITR KINGS; 10 MCG/KG/MIN PRN Reason: Protocol Last Admin: 09/02/17 05:57 Dose: 10.538 mls/hr Sodium Chloride (Normal Saline -) 1,000 mls @ 100 mls/hr IV ASDIR [facility] Last Admin: 09/02/17 05:59 Dose: 100 mls/hr Vancomycin HCl 1,000 mg/ (Dextrose) 250 mls @ 166.667 mls/hr IVPB BID@0500, 1700 KINGS Ibuprofen (Caldolor Injection -) 800 mg IVPB Q6H PRN PRN Reason: FEVER Lorazepam (Ativan Injection -) 2 mg IVPUSH Q2H PRN PRN Reason: ANXIETY Multivitamins/Minerals (Theragran-M) 1 each PO DAILY [facility] Thiamine HCl (Vitamin B1 -) 100 mg PO DAILY [facility] - Objective Vital Signs: Vital Signs Temperature 97.6 F 09/02/17 02:32 Pulse Rate 85 10/16/17 05:58 Respiratory Rate 30 H 09/02/17 05:59 Blood Pressure 90/68 09/02/17 05:58 O2 Sat by Pulse Oximetry (%) 100 09/02/17 03:00 Constitutional: Yes: Well Nourished Cardiovascular: Yes: Regular Rate and Rhythm, S1, S2. No: Murmur Respiratory: Yes: WNL, Regular, CTA Bilaterally, Rhonchi Gastrointestinal: Yes: Soft. No: Tenderness Edema: No Labs: CBC, BMP 09/02/17 05:00 09/02/17 05:00 INR, PTT INR 0.96 (0.82-1.09) 09/01/17 09:05 Assessment/Plan Microbiology 09/01/17 05:00 Blood - Peripheral Venous Blood Culture - Preliminary Pending Organism 09/01/17 00:01 Blood - Peripheral Venous Blood Culture - Preliminary Pending Organism Laboratory Tests 09/02/17 09/02/17 09/02/17 05:00 05:00 05:00 WBC 16.9 H D Hgb 10.8 L Hct 32.6 L Plt Count 164 D BUN 23 H Creatinine 1.2 AST 102 H ALT 80 H Alkaline Phosphatase 72 HIV 1&2 Antibody Screen Negative HIV P24 Antigen Negative Assessment Sepsis syndrome with gram positive bacteremia ? source Respiratory failure Chronic alcoholism Plan Continue current antibiotics pending final c/s ECHO ESR CRP Repeat blood cultures Vanco trough Sputum c/s Esau EMERY
[2017-09-02] MEDS ORDERED: NAPH,MB-DB/K PH,MBDB POWDER PACKET PO ONE (09:15)
[2017-09-02] MEDS ORDERED: PT OWN MED DRAWER 7, Y5N ONE ×2 (09:57→17:30)
[2017-09-02] MEDS ORDERED: FAMOTIDINE 20 MG/50 ML IVPB 50 ML IVPB SCH (10:00)
[2017-09-02] MEDS ORDERED: THIAMINE HCL 100 MG TABLET (FP) PO SCH (10:00)
[2017-09-02] MEDS ORDERED: FOLIC ACID 1 MG TABLET (FP) PO SCH (10:00)
[2017-09-02] MEDS ORDERED: MULTIVITAMINS THER W-MINERALS COMBO TABLET (FP) PO SCH (10:00)
[2017-09-02] MEDS: FOLIC ACID 1 MG TABLET (FP) PO SCH (10:04)
[2017-09-02] MEDS: FAMOTIDINE 20 MG/50 ML IVPB 50 ML IVPB SCH ×2 (10:04→22:09)
[2017-09-02] MEDS: THIAMINE HCL 100 MG TABLET (FP) PO SCH (10:04)
[2017-09-02] MEDS: MULTIVITAMINS THER W-MINERALS COMBO TABLET (FP) PO SCH (10:04)
[2017-09-02] MEDS: CEFTRIAXONE 2 GM in DEXTROSE 5%-WATER - 100 ML IVPB SCH (10:30)
[2017-09-02] MEDS ORDERED: chlordiazePOXIDE HCL 25 MG CAPSULE PO SCH (11:00)
--- NOTE | 2017-09-02 11:57 | PN ---
Physical Exam: SUBJECTIVE: This is a 66yo man with EtOH abuse presented after being found altered by landlord. 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 Normal EtOH intake 8, 16oz beers per day. He has undergone unsuccessfully detox in past. In ED patient found to have fractured rib and small left sided pneumothorax. Patient with high fevers felt most likely related to withdrawal but also concerning for aspiration pneumonia given hypoxia, increased RR and retrocardiac opacity. Blood cultures positive for GPC x2 sets. ID was consulted and patient staqred on ceftriaxone and vanco. Patient admitted to telemetry where he cont to have fevers. He was started on librium and ativan for EtOH withdrawal. Patient with progressive hypoxia and increased WOB. Pt was transferred to ICU for RR 40-50, coarse breath sounds with ineffective cough.Patient stated he was having difficulty breathing and was getting tired. Patient was intubated w/o complication. Sputum culture sent (thick pale yellow). Patient with progressive hypoxia and increased respiratory effort w/labored breathing on venti mask and respirations of 50's. Intubated (09/02) and transferred to ICU for respiratory failure. Patient remains intubated and sedated. Hemodynamically stable on phenylephrine pressor support. Patient with kussmaul respirations on physical encounter. OBJECTIVE: Vital Signs Period Temp Pulse Resp BP Sys/Jeff Pulse Ox Last 24 Hr 97.6 F-102 F 85-121 16-46 76-138/35-90 100-100 GENERAL: The patient is intubated and sedated, in no acute distress. HEAD: Normal with no signs of trauma. ENT: Ears normal, nares patent, oropharynx clear without exudates, moist mucous membranes. NECK: Trachea midline, full range of motion, supple. LUNGS: Coarse breath sounds bilaterally, + Kussmaul respirations. Endotracheal tube in place. HEART: Regular rate and rhythm, S1, S2 without murmur, rub or gallop. ABDOMEN: Soft, nontender, nondistended, normoactive bowel sounds, no guarding, no rebound, no hepatosplenomegaly, no masses. EXTREMITIES: 2+ pulses, warm, well-perfused, no edema. SKIN: Warm, dry, normal turgor, no rashes or lesions noted Laboratory Results - last 24 hr 08/31/17 09/01/17 09/01/17 23:22 05:30 12:00 WBC RBC Hgb Hct MCV MCH MCHC RDW Plt Count MPV Neutrophils % Lymphocytes % Monocytes % Eosinophils % Basophils % Anticoagulation Therapy Puncture Site ABG pH ABG pCO2 at Pt Temp ABG pO2 at Pt Temp ABG HCO3 ABG O2 Sat (Measured) ABG O2 Content ABG Base Excess Anoop Test O2 Delivery Device Oxygen Flow Rate Vent Mode Vent Rate Mechanical Rate PEEP Pressure Support Vent Sodium Potassium Chloride Carbon Dioxide Anion Gap BUN Creatinine Random Glucose Calcium Phosphorus Magnesium Total Bilirubin Direct Bilirubin AST ALT Alkaline Phosphatase Total Protein Albumin Urine Color Yellow Dkyellow Urine Appearance Slcloudy Cloudy Urine pH 6.0 5.0 Ur Specific [place] 1.025 1.020 Urine Protein 2+ H 2+ H Urine Glucose (UA) Negative Negative Urine Ketones Negative Negative Urine Blood 3+ H 2+ H Urine Nitrite Negative Negative Urine Bilirubin Negative Negative Urine Urobilinogen Negative Negative Ur Leukocyte Esterase Negative Negative Urine RBC 1 3 Urine WBC 4 7 Hyaline Casts 6 Granular Casts 17 Urine Mucus Rare Rare Urine Osmolality 511 HIV 1&2 Antibody Screen HIV P24 Antigen 09/01/17 09/02/17 09/02/17 17:49 01:10 05:00 WBC RBC Hgb Hct MCV MCH MCHC RDW Plt Count MPV Neutrophils % Lymphocytes % Monocytes % Eosinophils % Basophils % Anticoagulation Therapy Y Puncture Site Left radial Left radial ABG pH 7.38 7.31 L ABG pCO2 at Pt Temp 30.4 L 37.8 D ABG pO2 at Pt Temp 95.0 136.0 H D ABG HCO3 17.7 L 18.3 L ABG O2 Sat (Measured) 97.6 98.8 ABG O2 Content 16.3 15.5 ABG Base Excess -5.9 L -7.0 L Anoop Test Positive Positive O2 Delivery Device Vent/mask Vent Oxygen Flow Rate 50% 100% Vent Mode Ac Vent Rate 20 Mechanical Rate Y PEEP 0.0 5.0 Pressure Support Vent 450 Sodium Potassium Chloride Carbon Dioxide Anion Gap BUN Creatinine Random Glucose Calcium Phosphorus Magnesium Total Bilirubin Direct Bilirubin AST ALT Alkaline Phosphatase Total Protein Albumin Urine Color Urine Appearance Urine pH Ur Specific [place] Urine Protein Urine Glucose (UA) Urine Ketones Urine Blood Urine Nitrite Urine Bilirubin Urine Urobilinogen Ur Leukocyte Esterase Urine RBC Urine WBC Hyaline Casts Granular Casts Urine Mucus Urine Osmolality HIV 1&2 Antibody Screen Negative HIV P24 Antigen Negative 09/02/17 09/02/1709/02/17 05:00 05:00 07:10 WBC 16.9 H D RBC 3.46 L Hgb 10.8 L Hct 32.6 L MCV 94.3 MCH 31.3 MCHC 33.2 RDW 15.0 Plt Count 164 D MPV 9.6 D Neutrophils % 85.9 H D Lymphocytes % 2.3 L D Monocytes % 11.2 H Eosinophils % 0.3 D Basophils % 0.3 Anticoagulation Therapy Puncture Site Right radial ABG pH 7.38 ABG pCO2 at Pt Temp 30.6 L ABG pO2 at Pt Temp 225.0 H* ABG HCO3 17.5 L ABG O2 Sat (Measured) 99.9 H* ABG O2 Content 17.4 ABG Base Excess -6.3 L Anoop Test Positive O2 Delivery Device Vent Oxygen Flow Rate 80 Vent Mode A/c Vent Rate 25 Mechanical Rate Yes PEEP 8.0 Pressure Support Vent 450 Sodium 135 L Potassium 3.5 Chloride 103 Carbon Dioxide 19 L Anion Gap 13 BUN 23 H Creatinine 1.2 Random Glucose 98 Calcium 7.4 L Phosphorus 2.5 Magnesium 2.1 Total Bilirubin 0.6 D Direct Bilirubin 0.4 H D AST 102 H ALT 80 H Alkaline Phosphatase 72 Total Protein 5.3 L Albumin 1.6 L Urine Color Urine Appearance Urine pH Ur Specific [place] Urine Protein Urine Glucose (UA) Urine Ketones Urine Blood Urine Nitrite Urine Bilirubin Urine Urobilinogen Ur Leukocyte Esterase Urine RBC Urine WBC Hyaline Casts Granular Casts Urine Mucus Urine Osmolality HIV 1&2 Antibody Screen HIV P24 Antigen Active Medications Generic Name Dose Route Start Last Admin Trade Name Freq PRN Reason Stop Dose Admin Bacitracin 1 applic 09/02/17 10:00 Bacitracin - TP DAILY KINGS Chlordiazepoxide HCl 25 mg 09/02/17 05:17 Librium - PO 09/04/17 12:11 Q4H PRN WITHDRAWAL(CONT SUBST) Chlordiazepoxide HCl 25 mg 09/02/17 11:00 Librium - PO 09/03/17 05:01 [id number] KINGS Chlordiazepoxide HCl 15 mg 09/03/17 11:00 Librium - PO 09/04/17 05:01 [id number] KINGS Folic Acid 1 mg 09/02/17 10:00 09/02/17 10:04 Folic Acid - PO 1 mg DAILY KINGS Administration Heparin Sodium (Porcine) 5,000 unit 09/02/17 06:00 09/02/17 06:00 Heparin - SQ 5,000 unit TID KINGS Administration Ceftriaxone Sodium 2 gm/ 100 mls @ 200 mls/hr 09/02/17 10:00 09/02/17 10:30 Dextrose IVPB 200 mls/hr DAILY KINGS Administration Famotidine/Sodium Chloride 50 mls @ 100 mls/hr 09/02/17 10:00 09/02/17 10:04 Pepcid 20 Mg Premixed Ivpb - IVPB 100 mls/hr BID KINGS Administration Phenylephrine HCl 20,000 mcg/ 250 mls @ 75 mls/hr 09/02/17 05:17 09/02/17 05:58 Sodium Chloride IVPB 37.5 mls/hr TITR KINGS Administration Protocol 100 MCG/MIN Propofol 100 mls @ 5.269 mls/hr 09/02/17 05:17 09/02/17 05:57 Diprivan - IVPUSH 10.538 mls/hr TITR KINGS Administration Protocol 10 MCG/KG/MIN Sodium Chloride 1,000 mls @ 100 mls/hr 09/02/17 05:17 09/02/17 05:59 Normal Saline - IV 100 mls/hr ASDIR KINGS Administration Vancomycin HCl 1,000 mg/ 250 mls @ 166.667 mls/hr 09/02/17 17:00 Dextrose IVPB BID@0500,1700 KINGS Ibuprofen 800 mg 09/02/17 05:17 Caldolor Injection - IVPB Q6H PRN FEVER Lorazepam 2 mg 09/02/17 05:17 Ativan Injection - IVPUSH Q2H PRN ANXIETY Multivitamins/Minerals 1 each 09/02/17 10:00 09/02/17 10:04 Theragran-M PO 1 each DAILY KINGS Administration Thiamine HCl 100 mg 09/02/17 10:00 09/02/17 10:04 Vitamin B1 - PO 100 mg DAILY KINGS Administration CBC, BMP 09/02/17 15:55 09/02/17 05:00 Microbiology 09/02/17 00:00 Sputum - Endotracheal Suction W/O Vent Gram Stain - Final 09/01/17 15:50 Blood - Peripheral Venous Blood Culture - Preliminary Pending Organism 09/01/17 15:55 Blood - Peripheral Venous Blood Culture - Preliminary Pending Organism 08/31/17 23:22 Urine - Urine Clean Catch Urine Culture - Final Contaminated: Please Repeat 09/01/17 00:01 Blood - Peripheral Venous Blood Culture - Preliminary Presumptive Mssa (Pbp2a Neg) 09/01/17 05:00 Blood - Peripheral Venous Blood Culture - Preliminary Presumptive Mssa (Pbp2a Neg) CT Chest : seen with report- loss of left lung volume with atelectasis. Emphysema like changes. ASSESSMENT/PLAN: 66 yo man with h/o EtOH abuse, and HTN who presents to the ICU in respiratory distress 2/2 aspiration pneumonitis and sepsis. Psych: Alcohol Withdrawal Pt. 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 Not on medication - EKG with no acute ST- T wave changes - Echo Pending GI: U/s depicts hepatosplenomegaly and fatty infiltration of liver : ALEXANDRA: Most likely prerenal - Renal U/s - Trend Cr/BUN Pulmonary: Aspiration pneumonitis vs. aspiration pneumonia. Presented to ED (08/31) tachycardic, tachypnic and hyperthermic. CT chest: chronic volume loss of left lung and atelectasis of left lung with no acute cardiopulm pathology. CXR~ atelectasis at left lung base Day 1 s/p intubation following resp. distress Plan: - Wean Propofol gtt Infectious Disease: Aspiration Pneumonia: Presented to ED tachycardic, tachypnic, and hyperthermic. blood cultures +MSSA D/c'd Zosyn Cont IV NS Cont Vanc 1000 mg IV NS Heme/onc: Thrombocytopenia ( stable ) 2/2 to alcohol + Splenomegaly FEN: IVF, Lytes PRN, NG tube PPx: Heparin 5000 U TID Dispo: Cont ICU Monitoring Visit type - Emergency Visit Emergency Visit: Yes ED Registration Date: 08/31/17 Care time: The patient presented to the Emergency Department on the above date and was hospitalized for further evaluation of their emergent condition. - New Patient This patient is new to me today: No - Critical Care Critical Care patient: Yes Total Critical Care Time (in minutes): 40 Critical Care Statement: The care of this patient involved high complexity decision making to prevent further life threatening deterioration of the patient 's condition and/or to evaluate & treat vital organ system(s) failure or risk of failure.
--- NOTE | 2017-09-02 13:57 | PN ---
Physical Exam: SUBJECTIVE: 66 yo man with h/o EtOH abuse, and HTN who initially presented to ED after being found altered and on the floor by landlord in his apartment (08/31) . In ED he reported last drink 2 days prior to arrival. Has h/o unsuccessful detox attempts in past. ED CXR revealed left sided small pneumothorax and L side rib frx. Sepsis protocol initiated in ED as patient had elevated temps, tachypnic, and tachycardic. Blood cultures positive for MSSA x 2. Pt. was started on Ceftriaxone and Vancomycin. Admitted to tele and and started on Ativan and Librium for alcohol withdrawal. Patient with progressive hypoxia and increased respiratory effort w/labored breathing on venti mask and respirations of 50's. Intubated (09/02) and transferred to ICU for respiratory failure. Patient remains intubated and sedated. Hemodynamically stable on phenylephrine pressor support. Patient with kussmaul respirations on physical encounter. OBJECTIVE: Vital Signs Period Temp Pulse Resp BP Sys/Jeff Pulse Ox Last 24 Hr 97.6 F-100.0 F 85-121 16-46 76-138/35-90 100-100 GENERAL: The patient is intubated and sedated, in no acute distress. HEAD: Normal with no signs of trauma. ENT: Ears normal, nares patent, oropharynx clear without exudates, moist mucous membranes. NECK: Trachea midline, full range of motion, supple. LUNGS: Coarse breath sounds bilaterally, + Kussmaul respirations. Endotracheal tube in place. HEART: Regular rate and rhythm, S1, S2 without murmur, rub or gallop. ABDOMEN: Soft, nontender, nondistended, normoactive bowel sounds, no guarding, no rebound, no hepatosplenomegaly, no masses. EXTREMITIES: 2+ pulses, warm, well-perfused, no edema. SKIN: Warm, dry, normal turgor, no rashes or lesions noted Laboratory Results - last 24 hr 09/01/17 09/01/17 09/02/17 05:30 17:49 01:10 WBC RBC Hgb Hct MCV MCH MCHC RDW Plt Count MPV Neutrophils % Lymphocytes % Monocytes % Eosinophils % Basophils % Anticoagulation Therapy Y Puncture Site Left radial Left radial ABG pH 7.38 7.31 L ABG pCO2 at Pt Temp 30.4 L 37.8 D ABG pO2 at Pt Temp 95.0 136.0 H D ABG HCO3 17.7 L 18.3 L ABG O2 Sat (Measured) 97.6 98.8 ABG O2 Content 16.3 15.5 ABG Base Excess -5.9 L -7.0 L Anoop Test Positive Positive O2 Delivery Device Vent/mask Vent Oxygen Flow Rate 50% 100% Vent Mode Ac Vent Rate 20 Mechanical Rate Y PEEP 0.0 5.0 Pressure Support Vent 450 Sodium Potassium Chloride Carbon Dioxide Anion Gap BUN Creatinine Random Glucose Calcium Phosphorus Magnesium Total Bilirubin Direct Bilirubin AST ALT Alkaline Phosphatase Total Protein Albumin Urine Color Dkyellow Urine Appearance Cloudy Urine pH 5.0 Ur Specific [place] 1.020 Urine Protein 2+ H Urine Glucose (UA) Negative Urine Ketones Negative Urine Blood 2+ H Urine Nitrite Negative Urine Bilirubin Negative Urine Urobilinogen Negative Ur Leukocyte Esterase Negative Urine RBC 3 Urine WBC 7 Granular Casts 17 Urine Mucus Rare HIV 1&2 Antibody Screen HIV P24 Antigen 09/02/17 09/02/17 09/02/17 05:00 05:00 05:00 WBC 16.9 H D RBC 3.46 L Hgb 10.8 L Hct 32.6 L MCV 94.3 MCH 31.3 MCHC 33.2 RDW 15.0 Plt Count 164 D MPV 9.6 D Neutrophils % 85.9 H D Lymphocytes % 2.3 L D Monocytes % 11.2 H Eosinophils % 0.3 D Basophils % 0.3 Anticoagulation Therapy Puncture Site ABG pH ABG pCO2 at Pt Temp ABG pO2 at Pt Temp ABG HCO3 ABG O2 Sat (Measured) ABG O2 Content ABG Base Excess Anoop Test O2 Delivery Device Oxygen Flow Rate Vent Mode Vent Rate Mechanical Rate PEEP Pressure Support Vent Sodium 135 L Potassium 3.5 Chloride 103 Carbon Dioxide 19 L Anion Gap 13 BUN 23 H Creatinine 1.2 Random Glucose 98 Calcium 7.4 L Phosphorus 2.5 Magnesium 2.1 Total Bilirubin 0.6 D Direct Bilirubin 0.4 H D AST 102 H ALT 80 H Alkaline Phosphatase 72 Total Protein 5.3 L Albumin 1.6 L Urine Color Urine Appearance Urine pH Ur Specific [place] Urine Protein Urine Glucose (UA) Urine Ketones Urine Blood Urine Nitrite Urine Bilirubin Urine Urobilinogen Ur Leukocyte Esterase Urine RBC Urine WBC Granular Casts Urine Mucus HIV 1&2 Antibody Screen Negative HIV P24 Antigen Negative 09/02/17 07:10 WBC RBC Hgb Hct MCV MCH MCHC RDW Plt Count MPV Neutrophils % Lymphocytes % Monocytes % Eosinophils % Basophils % Anticoagulation Therapy Puncture Site Right radial ABG pH 7.38 ABG pCO2 at Pt Temp 30.6 L ABG pO2 at Pt Temp 225.0 H* ABG HCO3 17.5 L ABG O2 Sat (Measured) 99.9 H* ABG O2 Content 17.4 ABG Base Excess -6.3 L Anoop Test Positive O2 Delivery Device Vent Oxygen Flow Rate 80 Vent Mode A/c Vent Rate 25 Mechanical Rate Yes PEEP 8.0 Pressure Support Vent 450 Sodium Potassium Chloride Carbon Dioxide Anion Gap BUN Creatinine Random Glucose Calcium Phosphorus Magnesium Total Bilirubin Direct Bilirubin AST ALT Alkaline Phosphatase Total Protein Albumin Urine Color Urine Appearance Urine pH Ur Specific [place] Urine Protein Urine Glucose (UA) Urine Ketones Urine Blood Urine Nitrite Urine Bilirubin Urine Urobilinogen Ur Leukocyte Esterase Urine RBC Urine WBC Granular Casts Urine Mucus HIV 1&2 Antibody Screen HIV P24 Antigen Active Medications Generic Name Dose Route Start Last Admin Trade Name Freq PRN Reason Stop Dose Admin Bacitracin 1 applic 09/02/17 10:00 Bacitracin - TP DAILY KINGS Chlordiazepoxide HCl 25 mg 09/02/17 05:17 Librium - PO 09/04/17 12:11 Q4H PRN WITHDRAWAL(CONT SUBST) Chlordiazepoxide HCl 25 mg 09/02/17 11:00 09/02/17 13:00 Librium - PO 09/03/17 05:01 25 mg [id number] KINGS Administration Chlordiazepoxide HCl 15 mg 09/03/17 11:00 Librium - PO 09/04/17 05:01 [id number] KINGS Folic Acid 1 mg 09/02/17 10:00 09/02/17 10:04 Folic Acid - PO 1 mg DAILY KINGS Administration Heparin Sodium (Porcine) 5,000 unit 09/02/17 06:00 09/02/17 06:00 Heparin - SQ 5,000 unit TID KINGS Administration Ceftriaxone Sodium 2 gm/ 100 mls @ 200 mls/hr 09/02/17 10:00 09/02/17 10:30 Dextrose IVPB 200 mls/hr DAILY KINGS Administration Famotidine/Sodium Chloride 50 mls @ 100 mls/hr 09/02/17 10:00 09/02/17 10:04 Pepcid 20 Mg Premixed Ivpb - IVPB 100 mls/hr BID KINGS Administration Phenylephrine HCl 20,000 mcg/ 250 mls @ 75 mls/hr 09/02/17 05:17 09/02/17 05:58 Sodium Chloride IVPB 37.5 mls/hr TITR KINGS Administration Protocol 100 MCG/MIN Propofol 100 mls @ 5.269 mls/hr 09/02/17 05:17 09/02/17 05:57 Diprivan - IVPUSH 10.538 mls/hr TITR KINGS Administration Protocol 10 MCG/KG/MIN Sodium Chloride 1,000 mls @ 100 mls/hr 09/02/17 05:17 09/02/17 05:59 Normal Saline - IV 100 mls/hr ASDIR KINGS Administration Vancomycin HCl 1,000 mg/ 250 mls @ 166.667 mls/hr 09/02/17 17:00 Dextrose IVPB BID@0500,1700 KINGS Ibuprofen 800 mg 09/02/17 05:17 Caldolor Injection - IVPB Q6H PRN FEVER Lorazepam 2 mg 09/02/17 05:17 Ativan Injection - IVPUSH Q2H PRN ANXIETY Multivitamins/Minerals 1 each 09/02/17 10:00 09/02/17 10:04 Theragran-M PO 1 each DAILY KINGS Administration Thiamine HCl 100 mg 09/02/17 10:00 09/02/17 10:04 Vitamin B1 - PO 100 mg DAILY KINGS Administration ASSESSMENT/PLAN: CT chest seen with report- loss of left lung volume with atelectasis. Emphysema like changes. 66 yo man with h/o EtOH abuse, and HTN who presents to the ICU in respiratory distress 2/2 aspiration pneumonitis and sepsis. Psych: Alcohol Withdrawal Pt. 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 Not on medication - EKG with no acute ST- T wave changes - Echo Pending GI: U/s depicts hepatosplenomegaly and fatty infiltration of liver : ALEXANDRA: Most likely prerenal - Renal U/s - Trend Cr/BUN Pulmonary: Aspiration pneumonitis vs. aspiration pneumonia. Presented to ED (08/31) tachycardic, tachypnic and hyperthermic. CT chest~ chronic volume loss of left lung and atelectasis of left lung with no acute cardiopulm pathology. CXR~ atelectasis at left lung base Day 1 s/p intubation following resp. distress Plan: - Wean Propofol gtt Infectious Disease: Aspiration Pneumonia: Presented to ED tachycardic, tachypnic, and hyperthermic. blood cultures +MSSA D/c'd Zosyn Cont IV NS Cont Vanc 1000 mg IV NS Heme/onc: Thrombocytopenia ( stable ) 2/2 to alcohol + Splenomegaly FEN: IVF, Lytes PRN, NG tube PPx: Heparin 5000 U TID Dispo: Cont ICU Monitoring Visit type - Emergency Visit Emergency Visit: Yes ED Registration Date: 08/31/17 Care time: The patient presented to the Emergency Department on the above date and was hospitalized for further evaluation of their emergent condition. - New Patient This patient is new to me today: Yes Date on this admission: 09/02/17 - Critical Care Critical Care patient: Yes Total Critical Care Time (in minutes): 35 Critical Care Statement: The care of this patient involved high complexity decision making to prevent further life threatening deterioration of the patient 's condition and/or to evaluate & treat vital organ system(s) failure or risk of failure.
--- NOTE | 2017-09-02 13:58 | PN ---
Teaching Attending Note Name of Resident: Feliciano Archuleta ATTENDING PHYSICIAN STATEMENT I saw and evaluated the patient. I reviewed the resident's note and discussed the case with the resident. I agree with the resident's findings and plan as documented. SUBJECTIVE: Patient seen and examined in the ICU. Remains intubated and sedated. Low does phenylephrine for hemodynamic support. AC Mode of vent. Intake & Output 08/30/17 08/31/17 09/01/17 09/02/17 23:59 23:59 23:59 23:59 Intake Total 3760 1068.9 Output Total 1125 250 Balance 2635 818.9 Weight 170 lb 193 lb 9.6 oz 197 lb 9.6 oz Last Vital Signs Temp Pulse Resp BP Pulse Ox 98.1 F 111 H 36 H 107/85 100 09/02/17 10:00 09/02/17 13:00 09/02/17 13:17 09/02/17 12:00 09/02/17 09:42 Active Medications Bacitracin (Bacitracin -) 1 applic TP DAILY [facility] Chlordiazepoxide HCl (Librium -) 25 mg PO Q4H PRN PRN Reason: WITHDRAWAL(CONT SUBST) Stop: 09/04/17 12:11 Chlordiazepoxide HCl (Librium -) 25 mg PO [id number] [facility] Stop: 09/03/17 05:01 Last Admin: 09/02/17 13:00 Dose: 25 mg Chlordiazepoxide HCl (Librium -) 15 mg PO [id number] [facility] Stop: 09/04/17 05:01 Folic Acid (Folic Acid -) 1 mg PO DAILY [facility] Last Admin: 09/02/17 10:04 Dose: 1 mg Heparin Sodium (Porcine) (Heparin -) 5,000 unit SQ TID [facility] Last Admin: 09/02/17 06:00 Dose: 5,000 unit Ceftriaxone Sodium 2 gm/ (Dextrose) 100 mls @ 200 mls/hr IVPB DAILY [facility] Last Admin: 09/02/17 10:30 Dose: 200 mls/hr Famotidine/Sodium Chloride (Pepcid 20 Mg Premixed Ivpb -) 50 mls @ 100 mls/hr IVPB BID [facility] Last Admin: 09/02/17 10:04 Dose: 100 mls/hr Phenylephrine HCl 20,000 mcg/ (Sodium Chloride) 250 mls @ 75 mls/hr IVPB TITR IKNGS; 100 MCG/MIN PRN Reason: Protocol Last Admin: 09/02/17 05:58 Dose: 37.5 mls/hr Propofol (Diprivan -) 100 mls @ 5.269 mls/hr IVPUSH TITR KINGS; 10 MCG/KG/MIN PRN Reason: Protocol Last Admin: 09/02/17 05:57 Dose: 10.538 mls/hr Sodium Chloride (Normal Saline -) 1,000 mls @ 100 mls/hr IV ASDIR [facility] Last Admin: 09/02/17 05:59 Dose: 100 mls/hr Vancomycin HCl 1,000 mg/ (Dextrose) 250 mls @ 166.667 mls/hr IVPB BID@0500, 1700 [facility] Ibuprofen (Caldolor Injection -) 800 mg IVPB Q6H PRN PRN Reason: FEVER Lorazepam (Ativan Injection -) 2 mg IVPUSH Q2H PRN PRN Reason: ANXIETY Multivitamins/Minerals (Theragran-M) 1 each PO DAILY [facility] Last Admin: 09/02/17 10:04 Dose: 1 each Thiamine HCl (Vitamin B1 -) 100 mg PO DAILY [facility] Last Admin: 09/02/17 10:04 Dose: 100 mg Constitutional: Yes: Intubated and sedative Eyes: Yes: PERRL Cardiovascular: Yes: S1, S2 Respiratory: Yes: Mechanically intubated, bilateral coarse Rhonchi Gastrointestinal: Yes: Normal Bowel Sounds, Soft, Abdomen, Obese Edema: No Neurological: Yes: Confusion, Tremors Labs: Laboratory Results - last 24 hr 08/31/17 09/01/17 09/01/17 13:22 05:30 17:49 WBC RBC Hgb Hct MCV MCH MCHC RDW Plt Count MPV Neutrophils % Lymphocytes % Monocytes % Eosinophils % Basophils % Anticoagulation Therapy Puncture Site Left radial ABG pH 7.38 ABG pCO2 at Pt Temp 30.4 L ABG pO2 at Pt Temp 95.0 ABG HCO3 17.7 L ABG O2 Sat (Measured) 97.6 ABG O2 Content 16.3 ABG Base Excess -5.9 L Anoop Test Positive O2 Delivery Device Vent/mask Oxygen Flow Rate 50% Vent Mode Vent Rate Mechanical Rate PEEP 0.0 Pressure Support Vent Sodium Potassium Chloride Carbon Dioxide Anion Gap BUN Creatinine POC Glucometer [id number] Random Glucose Calcium Phosphorus Magnesium Total Bilirubin Direct Bilirubin AST ALT Alkaline Phosphatase Total Protein Albumin Urine Color Dkyellow Urine Appearance Cloudy Urine pH 5.0 Ur Specific [place] 1.020 Urine Protein 2+ H Urine Glucose (UA) Negative Urine Ketones Negative Urine Blood 2+ H Urine Nitrite Negative Urine Bilirubin Negative Urine Urobilinogen Negative Ur Leukocyte Esterase Negative Urine RBC 3 Urine WBC 7 Granular Casts 17 Urine Mucus Rare HIV 1&2 Antibody Screen HIV P24 Antigen 09/02/17 09/02/17 09/02/17 01:10 05:00 05:00 WBC 16.9 H D RBC 3.46 L Hgb 10.8 L Hct 32.6 L MCV 94.3 MCH 31.3 MCHC 33.2 RDW 15.0 Plt Count 164 D MPV 9.6 D Neutrophils % 85.9 H D Lymphocytes % 2.3 L D Monocytes % 11.2 H Eosinophils % 0.3 D Basophils % 0.3 Anticoagulation Therapy Y Puncture Site Left radial ABG pH 7.31 L ABG pCO2 at Pt Temp 37.8 D ABG pO2 at Pt Temp 136.0 H D ABG HCO3 18.3 L ABG O2 Sat (Measured) 98.8 ABG O2 Content 15.5 ABG Base Excess -7.0 L Anoop Test Positive O2 Delivery Device Vent Oxygen Flow Rate 100% Vent Mode Ac Vent Rate 20 Mechanical Rate Y PEEP 5.0 Pressure Support Vent 450 Sodium Potassium Chloride Carbon Dioxide Anion Gap BUN Creatinine POC Glucometer Random Glucose Calcium Phosphorus Magnesium Total Bilirubin Direct Bilirubin AST ALT Alkaline Phosphatase Total Protein Albumin Urine Color Urine Appearance Urine pH Ur Specific [place] Urine Protein Urine Glucose (UA) Urine Ketones Urine Blood Urine Nitrite Urine Bilirubin Urine Urobilinogen Ur Leukocyte Esterase Urine RBC Urine WBC Granular Casts Urine Mucus HIV 1&2 Antibody Screen Negative HIV P24 Antigen Negative 09/02/17 09/02/17 05:00 07:10 WBC RBC Hgb Hct MCV MCH MCHC RDW Plt Count MPV Neutrophils % Lymphocytes % Monocytes % Eosinophils % Basophils % Anticoagulation Therapy Puncture Site Right radial ABG pH 7.38 ABG pCO2 at Pt Temp 30.6 L ABG pO2 at Pt Temp 225.0 H* ABG HCO3 17.5 L ABG O2 Sat (Measured) 99.9 H* ABG O2 Content 17.4 ABG Base Excess -6.3 L Anoop Test Positive O2 Delivery Device Vent Oxygen Flow Rate 80 Vent Mode A/c Vent Rate 25 Mechanical Rate Yes PEEP 8.0 Pressure Support Vent 450 Sodium 135 L Potassium 3.5 Chloride 103 Carbon Dioxide 19 L Anion Gap 13 BUN 23 H Creatinine 1.2 POC Glucometer Random Glucose 98 Calcium 7.4 L Phosphorus 2.5 Magnesium 2.1 Total Bilirubin 0.6 D Direct Bilirubin 0.4 H D AST 102 H ALT 80 H Alkaline Phosphatase 72 Total Protein 5.3 L Albumin 1.6 L Urine Color Urine Appearance Urine pH Ur Specific [place] Urine Protein Urine Glucose (UA) Urine Ketones Urine Blood Urine Nitrite Urine Bilirubin Urine Urobilinogen Ur Leukocyte Esterase Urine RBC Urine WBC Granular Casts Urine Mucus HIV 1&2 Antibody Screen HIV P24 Antigen Problem List - Problems (1) Respiratory failure with hypoxia Code(s): J96.91 - RESPIRATORY FAILURE, UNSPECIFIED WITH HYPOXIA (2) Pneumonia Code(s): J18.9 - PNEUMONIA, UNSPECIFIED ORGANISM (3) Abuse, drug or alcohol Code(s): F19.10 - OTHER PSYCHOACTIVE SUBSTANCE ABUSE, UNCOMPLICATED Assessment/Plan AC Mode of vent ABX per ID VTE prophylaxis Follow cultures Sedation vacation BZ as needed Enteral feeds IVF Dr Griffin Critical care time spent in reviewing chart, evaluating patient and formulating plan - 35 minutes
[2017-09-02] MEDS ORDERED: MIDAZOLAM 100 MG in SODIUM CHLORIDE 100 ML IVPB SCH (14:30)
[2017-09-02] MEDS ORDERED: ACETAMINOPHEN 1000 MG/100 ML VIAL (NON FORMULARY) IVPB ONE (14:52)
[2017-09-02 16:33] LABS: MCH 31.8 pg (25.7-33.7); MCHC 34.1 g/dl (32.0-35.9); MEAN CELL VOLUME 93.2 fl (80-96); MEAN PLT VOLUME 9.3 fl (7.5-11.1); PLATELET COUNT 209 K/MM3 (134-434); RDW 15.4 % (11.9-15.9)
[2017-09-02] MEDS: VANCOMYCIN 1,000 MG in DEXTROSE 5%-WATER - 250 ML IVPB SCH (17:30)
--- NOTE | 2017-09-02 18:22 | PN ---
Teaching Attending Note Name of Resident: Dominick Kasper ATTENDING PHYSICIAN STATEMENT I saw and evaluated the patient. I reviewed the resident's note and discussed the case with the resident. I agree with the resident's findings and plan as documented. SUBJECTIVE: OBJECTIVE: Vital Signs Period Temp Pulse Resp BP Sys/Jeff Pulse Ox Last 24 Hr 97.6 F-102.2 F 85-124 16-46 82-138/35-90 100-100 Current Medications Generic Name Dose Route Start Last Admin Trade Name Freq PRN Reason Stop Dose Admin Bacitracin 1 applic 09/02/17 10:00 Bacitracin - TP DAILY [facility] Chlordiazepoxide HCl 25 mg 09/02/17 05:17 Librium - PO 09/04/17 12:11 Q4H PRN WITHDRAWAL(CONT SUBST) Chlordiazepoxide HCl 25 mg 09/02/17 11:00 09/02/17 13:00 Librium - PO 09/03/17 05:01 25 mg [id number] [facility] Administration Chlordiazepoxide HCl 15 mg 09/03/17 11:00 Librium - PO 09/04/17 05:01 [id number] [facility] Folic Acid 1 mg 09/02/17 10:00 09/02/17 10:04 Folic Acid - PO 1 mg DAILY [facility] Administration Heparin Sodium (Porcine) 5,000 unit 09/02/17 06:00 09/02/17 06:00 Heparin - SQ 5,000 unit TID [facility] Administration Ceftriaxone Sodium 2 gm/ 100 mls @ 200 mls/hr 09/02/17 10:00 09/02/17 10:30 Dextrose IVPB 200 mls/hr DAILY [facility] Administration Famotidine/Sodium Chloride 50 mls @ 100 mls/hr 09/02/17 10:00 09/02/17 10:04 Pepcid 20 Mg Premixed Ivpb - IVPB 100 mls/hr BID [facility] Administration Phenylephrine HCl 20,000 mcg/ 250 mls @ 75 mls/hr 09/02/17 05:17 09/02/17 15:41 Sodium Chloride IVPB 37.5 mls/hr TITR [facility] Administration Protocol 100 MCG/MIN Propofol 100 mls @ 5.269 mls/hr 09/02/17 05:17 09/02/17 05:57 Diprivan - IVPUSH 10.538 mls/hr TITR [facility] Administration Protocol 10 MCG/KG/MIN Sodium Chloride 1,000 mls @ 100 mls/hr 09/02/17 05:17 09/02/17 05:59 Normal Saline - IV 100 mls/hr ASDIR [facility] Administration Vancomycin HCl 1,000 mg/ 250 mls @ 166.667 mls/hr 09/02/17 17:00 Dextrose IVPB BID@0500,1700 [facility] Midazolam HCl 100 mg/ Sodium 100 mls @ 1 mls/hr 09/02/17 14:30 09/02/17 15:41 Chloride IVPB 09/03/17 14:29 1 mls/hr TITR [facility] Administration Protocol 1 MG/HR Ibuprofen 800 mg 09/02/17 05:17 Caldolor Injection - IVPB Q6H PRN FEVER Lorazepam 2 mg 09/02/17 05:17 Ativan Injection - IVPUSH Q2H PRN ANXIETY Multivitamins/Minerals 1 each 09/02/17 10:00 09/02/17 10:04 Theragran-M PO 1 each DAILY [facility] Administration Thiamine HCl 100 mg 09/02/17 10:00 09/02/17 10:04 Vitamin B1 - PO 100 mg DAILY [facility] Administration ASSESSMENT AND PLAN:
[2017-09-02 19:36] LABS: PLATELET COMMENT2 NO CLOTTING DETECTED; PLATELET ESTIMATE ADEQUATE (NORMAL)
[2017-09-02 19:37] LABS: TOTAL CELLS COUNTED 100
[2017-09-02] MEDS: IBUPROFEN 800 MG/8 ML IJ IVPB PRN (22:41)
[2017-09-03] MEDS: chlordiazePOXIDE HCL 25 MG CAPSULE PO SCH ×2 (00:21→05:26)
[2017-09-03] MEDS: PROPOFOL 100 ML IVPUSH SCH ×5 (01:23→21:05)
[2017-09-03] MEDS ORDERED: PT OWN MED DRAWER 7, Y5N ONE ×2 (01:37→20:53)
[2017-09-03] MEDS: VANCOMYCIN 1,000 MG in DEXTROSE 5%-WATER - 250 ML IVPB SCH (05:27)
[2017-09-03] MEDS: HEPARIN NA (PORCINE) 5,000 UNITS/ML 1ML VIAL SQ SCH ×3 (06:00→21:04)
--- NOTE | 2017-09-03 06:42 | PN ---
Physical Exam: SUBJECTIVE: Patient seen and examined at bedside. Remains intubated and sedated. on low does phenylephrine for hemodynamic support. OBJECTIVE: Vital Signs Period Temp Pulse Resp BP Sys/Jeff Pulse Ox Last 24 Hr 98.3 F-102.2 F 85-124 22-36 87-120/70-91 100-100 Intake & Output 08/31/17 09/01/17 09/02/17 09/03/17 23:59 23:59 23:59 23:59 Intake Total 3760 5596.9 3815 Output Total 1125 1000 1135 Balance 2635 4596.9 2680 Weight 77.111 kg 87.815 kg 89.63 kg 91.824 kg GENERAL: intubated , sedated HEAD: Normal with no signs of trauma. EYES: PERRL, conjunctiva clear. ENT: dry mucous membranes. LUNGS: Intubated B/L coarse crackles, accessory muscle use. HEART: S1, S2 without murmur, rub or gallop. ABDOMEN: Obese,soft, nontender, nondistended, normoactive bowel sounds, no guarding, no rebound, EXTREMITIES: 1+ pitting edema. NEUROLOGICAL: sedated SKIN: Warm, dry, no rashes or lesions noted Laboratory Results - last 24 hr 09/01/17 09/02/17 09/02/17 09:05 05:00 05:00 WBC RBC Hgb Hct MCV MCH MCHC RDW Plt Count MPV Total Counted Neutrophils % Neutrophils % (Manual) Band Neuts % (Manual) Lymphocytes % Lymphocytes % (Manual) Monocytes % (Manual) Platelet Estimate Platelet Comment Puncture Site ABG pH ABG pCO2 at Pt Temp ABG pO2 at Pt Temp ABG HCO3 ABG O2 Sat (Measured) ABG O2 Content ABG Base Excess Anoop Test O2 Delivery Device Oxygen Flow Rate Vent Mode Vent Rate Mechanical Rate PEEP Pressure Support Vent Sodium 135 L Potassium 3.5 Chloride 103 Carbon Dioxide 19 L Anion Gap 13 BUN 23 H Creatinine 1.2 Random Glucose 98 Calcium 7.4 L Phosphorus 2.5 Magnesium 2.1 Total Bilirubin 0.6 D Direct Bilirubin 0.4 H D AST 102 H ALT 80 H Alkaline Phosphatase 72 C-Reactive Protein Total Protein 5.3 L Albumin 1.6 L Vancomycin Pre-Dose Hepatitis A IgM Ab Negative Hep Bs Antigen Negative Hep B Core IgM Ab Negative Hepatitis C Ab (EIA) <0.1 HIV 1&2 Antibody Screen Negative HIV P24 Antigen Negative 09/02/17 09/02/17 09/02/17 07:10 15:55 15:55 WBC 13.0 H RBC 3.50 L Hgb 11.1 L Hct 32.7 L MCV 93.2 MCH 31.8 MCHC 34.1 RDW 15.4 Plt Count 209 D MPV 9.3 Total Counted 100 Neutrophils % No Result Required. Neutrophils % (Manual) 76 Band Neuts % (Manual) 10 D Lymphocytes % No Result Required. Lymphocytes % (Manual) 5 L D Monocytes % (Manual) 9 Platelet Estimate Adequate Platelet Comment No clotting detected Puncture Site Right radial ABG pH 7.38 ABG pCO2 at Pt Temp 30.6 L ABG pO2 at Pt Temp 225.0 H* ABG HCO3 17.5 L ABG O2 Sat (Measured) 99.9 H* ABG O2 Content 17.4 ABG Base Excess -6.3 L Anoop Test Positive O2 Delivery Device Vent Oxygen Flow Rate 80 Vent Mode A/c Vent Rate 25 Mechanical Rate Yes PEEP 8.0 Pressure Support Vent 450 Sodium Potassium Chloride Carbon Dioxide Anion Gap BUN Creatinine Random Glucose Calcium Phosphorus Magnesium Total Bilirubin Direct Bilirubin AST ALT Alkaline Phosphatase C-Reactive Protein Total Protein Albumin Vancomycin Pre-Dose 15.190 H* Hepatitis A IgM Ab Hep Bs Antigen Hep B Core IgM Ab Hepatitis C Ab (EIA) HIV 1&2 Antibody Screen HIV P24 Antigen 09/03/17 05:00 WBC RBC Hgb Hct MCV MCH MCHC RDW Plt Count MPV Total Counted Neutrophils % Neutrophils % (Manual) Band Neuts % (Manual) Lymphocytes % Lymphocytes % (Manual) Monocytes % (Manual) Platelet Estimate Platelet Comment Puncture Site ABG pH ABG pCO2 at Pt Temp ABG pO2 at Pt Temp ABG HCO3 ABG O2 Sat (Measured) ABG O2 Content ABG Base Excess Anoop Test O2 Delivery Device Oxygen Flow Rate Vent Mode Vent Rate Mechanical Rate PEEP Pressure Support Vent Sodium Potassium Chloride Carbon Dioxide Anion Gap BUN Creatinine Random Glucose Calcium Phosphorus Magnesium Total Bilirubin Direct Bilirubin AST ALT Alkaline Phosphatase C-Reactive Protein 16.9 H Total Protein Albumin Vancomycin Pre-Dose Hepatitis A IgM Ab Hep Bs Antigen Hep B Core IgM Ab Hepatitis C Ab (EIA) HIV 1&2 Antibody Screen HIV P24 Antigen Active Medications Generic Name Dose Route Start Last Admin Trade Name Freq PRN Reason Stop Dose Admin Bacitracin 1 applic 09/02/17 10:00 Bacitracin - TP DAILY [facility] Chlordiazepoxide HCl 25 mg 09/02/17 05:17 Librium - PO 09/04/17 12:11 Q4H PRN WITHDRAWAL(CONT SUBST) Chlordiazepoxide HCl 15 mg 09/03/17 11:00 Librium - PO 09/04/17 05:01 [id number] [facility] Folic Acid 1 mg 09/02/17 10:00 09/02/17 10:04 Folic Acid - PO 1 mg DAILY [facility] Administration Heparin Sodium (Porcine) 5,000 unit 09/02/17 06:00 09/02/17 22:09 Heparin - SQ 5,000 unit TID [facility] Administration Ceftriaxone Sodium 2 gm/ 100 mls @ 200 mls/hr 09/02/17 10:00 09/02/17 10:30 Dextrose IVPB 200 mls/hr DAILY [facility] Administration Famotidine/Sodium Chloride 50 mls @ 100 mls/hr 09/02/17 10:00 09/02/17 22:09 Pepcid 20 Mg Premixed Ivpb - IVPB 100 mls/hr BID [facility] Administration Phenylephrine HCl 20,000 mcg/ 250 mls @ 75 mls/hr 09/02/17 05:17 09/02/17 22:12 Sodium Chloride IVPB 37.5 mls/hr TITR [facility]INGS Administration Protocol 100 MCG/MIN Propofol 100 mls @ 5.269 mls/hr 09/02/17 05:17 09/03/17 01:29 Diprivan - IVPUSH 15.807 mls/hr TITR [facility]INGS Administration Protocol 10 MCG/KG/MIN Sodium Chloride 1,000 mls @ 100 mls/hr 09/02/17 05:17 09/02/17 22:01 Normal Saline - IV 100 mls/hr ASDIR [facility] Administration Vancomycin HCl 1,000 mg/ 250 mls @ 166.667 mls/hr 09/02/17 17:00 09/03/17 05:27 Dextrose IVPB 166.667 mls/hr BID@0500,1700 [facility] Administration Midazolam HCl 100 mg/ Sodium 100 mls @ 1 mls/hr 09/02/17 14:30 09/02/17 16:00 Chloride IVPB 09/03/17 14:29 5 mg/hr TITR KINGS Titration Protocol 1 MG/HR Ibuprofen 800 mg 09/02/17 05:17 09/02/17 22:41 Caldolor Injection - IVPB 800 mg Q6H PRN Administration FEVER Lorazepam 2 mg 09/02/17 05:17 Ativan Injection - IVPUSH Q2H PRN ANXIETY Multivitamins/Minerals 1 each 09/02/17 10:00 09/02/17 10:04 Theragran-M PO 1 each DAILY [facility] Administration Thiamine HCl 100 mg 09/02/17 10:00 09/02/17 10:04 Vitamin B1 - PO 100 mg DAILY [facility] Administration CBC, BMP 09/03/17 08:00 09/03/17 08:00 09/02/17 00:00 Sputum - Endotracheal Suction W/O Vent Gram Stain - Final 09/01/17 15:50 Blood - Peripheral Venous Blood Culture - Preliminary Pending Organism 09/01/17 15:55 Blood - Peripheral Venous Blood Culture - Preliminary Pending Organism 08/31/17 23:22 Urine - Urine Clean Catch Urine Culture - Final Contaminated: Please Repeat 09/01/17 00:01 Blood - Peripheral Venous Blood Culture - Preliminary Presumptive Mssa (Pbp2a Neg) 09/01/17 05:00 Blood - Peripheral Venous Blood Culture - Preliminary Presumptive Mssa (Pbp2a Neg) CT Chest : loss of left lung volume with atelectasis. Emphysema like changes. ASSESSMENT/PLAN: 66 yo man with h/o EtOH abuse, and HTN who presents to the ICU in respiratory distress 2/2 aspiration peritonitis and sepsis. # Sepsis due to aspiration pneumonia vs skin source vs unknown source * Presented to ED tachycardic, tachypnic, and hyperthermic with oral temp 105.3 (08/31) * blood cultures +MSSA bacteremia * Urine Cx pending * Sputum cx contaminated * WBC 11.3 trend to 15.6 * Cont IV NS * D/c'd Zosyn , D/c Vanc 1000 mg , * Switch Nafcillin 2gm q4h per ID * Consider ALISA per ID due to staph bacterimia * Repeat Urine Cx, Blood cx # Acute Etoh withdrawal * Pt. presented to ED with tremors, tachycardic, and tachypneic * H/o failed detox attempts and rehabilitation * Last alcoholic beverage 2 days [employer] * Hold Chlordiazepoxide * Thiamine, Folic acid * CIWA protocol * continue IV NS * Hold Lorazepam * on versed ggt * can bolus versed as needed for worsening tachycardia. # H/o HTN. * Not on medication * EKG with no acute ST- T wave changes * Echo shows preserved LV systolic function,RV systolic function seems diminished,No pericardial effusion,No AR, No MR, No TR * Currently on pressor #Acute transaminitis, improving * likely due to hypotension and ETOH. * Abdominal U/s shows hepatosplenomegaly and fatty infiltration of liver * monitor AST, ALT #ALEXANDRA * Most likely pre-renal * Renal U/s * Trend Cr/BUN * # Aspiration Pneumonia vs aspiration peritonitis * Presented to ED hyperthermic, tachypnic, tachcardic * blood cultures +MSSA bacterimia * D/c'd Zosyn * Cont IV NS * Cont Vanc 1000 mg * IV NS * Wean Propofol gtt # Thrombocytopenia, improved * likely 2/2 to alcohol * + Splenomegaly * Plt 246 today * No signs of active bleeding * repeat CBC # Normocytic Anemia * likely 2/2 Alcohol abuse * H/H 11.5/35.1 * No acute bleeding * transfuse if Hgb< 8 * Monitor CBC # Chronic right subdural hematoma, stable #FEN: * IVF, * Lytes : Hypokalemia- KCl IV, Hyponatremia-resolved * NG tube #PPx: Heparin 5000 U TID, scds #Dispo: Cont ICU Monitoring Visit type - Emergency Visit Emergency Visit: Yes ED Registration Date: 08/31/17 Care time: The patient presented to the Emergency Department on the above date and was hospitalized for further evaluation of their emergent condition. - New Patient This patient is new to me today: No - Critical Care Critical Care patient: Yes Total Critical Care Time (in minutes): 40 Critical Care Statement: The care of this patient involved high complexity decision making to prevent further life threatening deterioration of the patient 's condition and/or to evaluate & treat vital organ system(s) failure or risk of failure.
[2017-09-03 08:23] LABS: BASOPHIL 0.3 % (0-2.0); EOSINOPHIL 0.8 % (0-4.5); MCH 31.1 pg (25.7-33.7); MCHC 32.7 g/dl (32.0-35.9); MEAN CELL VOLUME 95.1 fl (80-96); MEAN PLT VOLUME 9.2 fl (7.5-11.1); NEUTROPHILS 80.9 % (42.8-82.8); PLATELET COUNT 246 K/MM3 (134-434); RDW 15.6 % (11.9-15.9); WHITE BLOOD COUNT 15.6 K/mm3 (4.0-10.0)
[2017-09-03 09:12] LABS: ALBUMIN 1.4 g/dl (3.4-5.0); ANION GAP 11 (8-16); BILIRUBIN,TOTAL 0.7 mg/dL (0.2-1.0); CALCIUM 7.8 mg/dL (8.5-10.1); CO2 20 mmol/L (21-32); GLUCOSE,RANDOM 90 mg/dL (74-106); PHOSPHOROUS 2.4 mg/dL (2.5-4.9); SGOT/AST 127 U/L (15-37); SGPT/ALT 74 U/L (12-78); TOT PROT 5.1 g/dl (6.4-8.2)
[2017-09-03 09:13] LABS: ALK PHOS 96 U/L (45-117)
[2017-09-03] MEDS: CEFTRIAXONE 2 GM in DEXTROSE 5%-WATER - 100 ML IVPB SCH (10:00)
[2017-09-03] MEDS: FOLIC ACID 1 MG TABLET (FP) PO SCH (10:00)
[2017-09-03] MEDS: THIAMINE HCL 100 MG TABLET (FP) PO SCH (10:15)
[2017-09-03] MEDS ORDERED: chlordiazePOXIDE 5 MG CAPSULE PO SCH ×2 (11:00)
[2017-09-03] MEDS: FAMOTIDINE 20 MG/50 ML IVPB 50 ML IVPB SCH ×2 (11:15→21:04)
[2017-09-03] MEDS: BACITRACIN 15 GM TUBE TOPICAL OINTMENT TP SCH ×2 (11:16→19:44)
[2017-09-03] MEDS: MULTIVITAMINS THER W-MINERALS COMBO TABLET (FP) PO SCH (11:39)
[2017-09-03] MEDS ORDERED: PHENYLEPHRINE HCL 10 MG/1 ML SINGLE DOSE VIAL ONE ×2 (13:49→19:30)
--- NOTE | 2017-09-03 13:49 | PN ---
Progress Note, Physician History of Present Illness: Sedated on ventilator Afebrile BC + MSSA - Current Medication List Current Medications: Active Medications Bacitracin (Bacitracin -) 1 applic TP DAILY [facility] Last Admin: 09/03/17 11:16 Dose: 1 applic Chlordiazepoxide HCl (Librium -) 25 mg PO Q4H PRN PRN Reason: WITHDRAWAL(CONT SUBST) Stop: 09/04/17 12:11 Chlordiazepoxide HCl (Librium -) 15 mg PO [id number] [facility] Stop: 09/04/17 05:01 Last Admin: 09/03/17 11:16 Dose: Not Given Folic Acid (Folic Acid -) 1 mg PO DAILY [facility] Last Admin: 09/03/17 10:00 Dose: 1 mg Heparin Sodium (Porcine) (Heparin -) 5,000 unit SQ TID [facility] Last Admin: 09/02/17 22:09 Dose: 5,000 unit Ceftriaxone Sodium 2 gm/ (Dextrose) 100 mls @ 200 mls/hr IVPB DAILY [facility] Last Admin: 09/03/17 10:00 Dose: 200 mls/hr Famotidine/Sodium Chloride (Pepcid 20 Mg Premixed Ivpb -) 50 mls @ 100 mls/hr IVPB BID [facility] Last Admin: 09/03/17 11:15 Dose: 100 mls/hr Phenylephrine HCl 20,000 mcg/ (Sodium Chloride) 250 mls @ 75 mls/hr IVPB TITR KINGS; 100 MCG/MIN PRN Reason: Protocol Last Admin: 09/02/17 22:12 Dose: 37.5 mls/hr Propofol (Diprivan -) 100 mls @ 5.269 mls/hr IVPUSH TITR [facility]INGS; 10 MCG/KG/MIN PRN Reason: Protocol Last Admin: 09/03/17 08:10 Dose: 15.807 mls/hr Sodium Chloride (Normal Saline -) 1,000 mls @ 100 mls/hr IV ASDIR [facility] Last Admin: 09/02/17 22:01 Dose: 100 mls/hr Midazolam HCl 100 mg/ Sodium (Chloride) 100 mls @ 1 mls/hr IVPB TITR KINGS; 1 MG/ HR PRN Reason: Protocol Stop: 09/03/17 14:29 Last Titration: 09/02/17 16:00 Dose: 5 mg/hr Nafcillin Sodium 2 gm/ (Dextrose) 100 mls @ 100 mls/hr IVPB Q4H-IV [facility] PRN Reason: Protocol Ibuprofen (Caldolor Injection -) 800 mg IVPB Q6H PRN PRN Reason: FEVER Last Admin: 09/02/17 22:41 Dose: 800 mg Lorazepam (Ativan Injection -) 2 mg IVPUSH Q2H PRN PRN Reason: ANXIETY Multivitamins/Minerals (Theragran-M) 1 each PO DAILY [facility] Last Admin: 09/03/17 11:39 Dose: 1 each Thiamine HCl (Vitamin B1 -) 100 mg PO DAILY [facility] Last Admin: 09/03/17 10:15 Dose: 100 mg - Objective Vital Signs: Vital Signs Temperature 98.4 F 09/03/17 13:29 Pulse Rate 104 H 09/03/17 13:29 Respiratory Rate 25 H 09/03/17 13:00 Blood Pressure 107/79 09/03/17 13:00 O2 Sat by Pulse Oximetry (%) 99 09/03/17 09:30 Constitutional: Yes: No Distress Cardiovascular: Yes: Regular Rate and Rhythm, S1, S2. No: Murmur Respiratory: Yes: Mechanically Ventilated Gastrointestinal: Yes: Normal Bowel Sounds, Soft. No: Tenderness Edema: Yes Edema: LLE: 1+, RLE: 1+ Integumentary: Yes: Other (abrasions, LE) Labs: CBC, BMP 09/03/17 08:00 09/03/17 08:00 INR, PTT INR 0.96 (0.82-1.09) 09/01/17 09:05 Assessment/Plan MSSA bacteremia, likely skin source Resp failure Possible aspiration pneumonia Hx ETOH abuse Switch to nafcillin 2gm q4h Repeat BC Ventilatory support
[2017-09-03] MEDS: PHENYLEPHRINE HCL 20,000 MCG in SODIUM CHLORIDE 248 ML IVPB SCH ×2 (14:00→23:10)
[2017-09-03] MEDS ORDERED: NAFCILLIN - 2 GM in DEXTROSE 5%-WATER - 100 ML IVPB SCH (14:00)
--- NOTE | 2017-09-03 14:57 | PN ---
Teaching Attending Note Name of Resident: Feliciano Archuleta ATTENDING PHYSICIAN STATEMENT I saw and evaluated the patient. I reviewed the resident's note and discussed the case with the resident. I agree with the resident's findings and plan as documented. SUBJECTIVE: Patient seen and examined in the ICU. Remains intubated and sedated. Low does phenylephrine for hemodynamic support. AC Mode of vent. Intake & Output 08/31/17 09/01/17 09/02/17 09/03/17 23:59 23:59 23:59 23:59 Intake Total 3760 5596.9 1808 Output Total 1125 1000 635 Balance 2635 4596.9 1173 Weight 170 lb 193 lb 9.6 oz 197 lb 9.6 oz 202 lb 7 oz Last Vital Signs Temp Pulse Resp BP Pulse Ox 98.4 F 108 H 25 H 110/73 99 09/03/17 13:29 09/03/17 14:00 09/03/17 14:01 09/03/17 14:00 09/03/17 09:30 Active Medications Bacitracin (Bacitracin -) 1 applic TP DAILY [facility] Last Admin: 09/03/17 11:16 Dose: 1 applic Chlordiazepoxide HCl (Librium -) 25 mg PO Q4H PRN PRN Reason: WITHDRAWAL(CONT SUBST) Stop: 09/04/17 12:11 Chlordiazepoxide HCl (Librium -) 15 mg PO [id number] [facility] Stop: 09/04/17 05:01 Last Admin: 09/03/17 11:16 Dose: Not Given Folic Acid (Folic Acid -) 1 mg PO DAILY [facility] Last Admin: 09/03/17 10:00 Dose: 1 mg Heparin Sodium (Porcine) (Heparin -) 5,000 unit SQ TID [facility] Last Admin: 09/02/17 22:09 Dose: 5,000 unit Ceftriaxone Sodium 2 gm/ (Dextrose) 100 mls @ 200 mls/hr IVPB DAILY [facility] Last Admin: 09/03/17 10:00 Dose: 200 mls/hr Famotidine/Sodium Chloride (Pepcid 20 Mg Premixed Ivpb -) 50 mls @ 100 mls/hr IVPB BID [facility] Last Admin: 09/03/17 11:15 Dose: 100 mls/hr Phenylephrine HCl 20,000 mcg/ (Sodium Chloride) 250 mls @ 75 mls/hr IVPB TITR [facility]INGS; 100 MCG/MIN PRN Reason: Protocol Last Admin: 09/02/17 22:12 Dose: 37.5 mls/hr Propofol (Diprivan -) 100 mls @ 5.269 mls/hr IVPUSH TITR KNIGS; 10 MCG/KG/MIN PRN Reason: Protocol Last Admin: 09/03/17 08:10 Dose: 15.807 mls/hr Sodium Chloride (Normal Saline -) 1,000 mls @ 100 mls/hr IV ASDIR [facility] Last Admin: 09/02/17 22:01 Dose: 100 mls/hr Nafcillin Sodium 2 gm/ (Dextrose) 100 mls @ 100 mls/hr IVPB Q4H-IV [facility] PRN Reason: Protocol Ibuprofen (Caldolor Injection -) 800 mg IVPB Q6H PRN PRN Reason: FEVER Last Admin: 09/02/17 22:41 Dose: 800 mg Lorazepam (Ativan Injection -) 2 mg IVPUSH Q2H PRN PRN Reason: ANXIETY Multivitamins/Minerals (Theragran-M) 1 each PO DAILY [facility] Last Admin: 09/03/17 11:39 Dose: 1 each Thiamine HCl (Vitamin B1 -) 100 mg PO DAILY [facility] Last Admin: 09/03/17 10:15 Dose: 100 mg Constitutional: Yes: Intubated and sedated Eyes: Yes: PERRL Cardiovascular: Yes: S1, S2 Respiratory: Yes: Intubated, bilateral coarse Rhonchi Gastrointestinal: Yes: Normal Bowel Sounds, Soft, Abdomen, Obese Edema: No Neurological: Yes: Sedated Labs: Laboratory Results - last 24 hr 09/02/17 09/02/17 09/03/17 15:55 15:55 05:00 WBC 13.0 H RBC 3.50 L Hgb 11.1 L Hct 32.7 L MCV 93.2 MCH 31.8 MCHC 34.1 RDW 15.4 Plt Count 209 D MPV 9.3 Total Counted 100 Neutrophils % No Result Required. Neutrophils % (Manual) 76 Band Neuts % (Manual) 10 D Lymphocytes % No Result Required. Lymphocytes % (Manual) 5 L D Monocytes % Monocytes % (Manual) 9 Eosinophils % Basophils % Platelet Estimate Adequate Platelet Comment No clotting detected ESR Sodium Potassium Chloride Carbon Dioxide Anion Gap BUN Creatinine Creat Clearance w eGFR Random Glucose Calcium Phosphorus Magnesium Total Bilirubin AST ALT Alkaline Phosphatase C-Reactive Protein 16.9 H Total Protein Albumin Vancomycin Pre-Dose 15.190 H* 09/03/17 09/03/17 09/03/17 05:00 08:00 08:00 WBC 15.6 H RBC 3.69 L Hgb 11.5 L Hct 35.1 L MCV 95.1 MCH 31.1 MCHC 32.7 RDW 15.6 Plt Count 246 MPV 9.2 Total Counted Neutrophils % 80.9 Neutrophils % (Manual) Band Neuts % (Manual) Lymphocytes % 7.0 L D Lymphocytes % (Manual) Monocytes % 11.0 H Monocytes % (Manual) Eosinophils % 0.8 D Basophils % 0.3 Platelet Estimate Platelet Comment ESR 105 H Sodium 139 Potassium 3.3 L Chloride 108 H Carbon Dioxide 20 L Anion Gap 11 BUN 24 H Creatinine 1.0 Creat Clearance w eGFR > 60 Random Glucose 90 Calcium 7.8 L Phosphorus 2.4 L Magnesium 2.0 Total Bilirubin 0.7 AST 127 H D ALT 74 Alkaline Phosphatase 96 D C-Reactive Protein Total Protein 5.1 L Albumin 1.4 L Vancomycin Pre-Dose Problem List - Problems (1) Respiratory failure with hypoxia Code(s): J96.91 - RESPIRATORY FAILURE, UNSPECIFIED WITH HYPOXIA (2) Pneumonia Code(s): J18.9 - PNEUMONIA, UNSPECIFIED ORGANISM (3) Abuse, drug or alcohol Code(s): F19.10 - OTHER PSYCHOACTIVE SUBSTANCE ABUSE, UNCOMPLICATED Assessment/Plan AC Mode of vent ABX per ID VTE prophylaxis Follow cultures Sedation vacation BZ as needed Enteral feeds IVF Dr Griffin Critical care time spent in reviewing chart, evaluating patient and formulating plan - 35 minutes
--- NOTE | 2017-09-03 15:42 | PN ---
Physical Exam: SUBJECTIVE: 66 yo man with h/o EtOH abuse, and HTN who initially presented to ED after being found altered and on the floor by landlord in his apartment (08/31) . In ED he reported last drink 2 days prior to arrival. Has h/o unsuccessful detox attempts in past. ED CXR revealed left sided small pneumothorax and L side rib frx. Sepsis protocol initiated in ED as patient had elevated temps, tachypnic, and tachycardic. Blood cultures positive for MSSA x 2. Pt. was started on Ceftriaxone and Vancomycin. Admitted to tele and and started on Ativan and Librium for alcohol withdrawal. Patient with progressive hypoxia and increased respiratory effort w/labored breathing on venti mask and respirations of 50's. Intubated (09/02) and transferred to ICU for respiratory failure. Overnight no acute events. Patient remains intubated and sedated.On AC vent settings FiO2 50/ PEEP 8 / TV 450 / R 25 Hemodynamically stable on 40 mcg phenylephrine pressor support. Patient with kussmaul respirations on physical encounter. HR and RR improved with Midazolam. OBJECTIVE: Vital Signs Period Temp Pulse Resp BP Sys/Jeff Pulse Ox Last 24 Hr 98.3 F-101.2 F 95-124 22-29 87-120/57-91 99-100 GENERAL: The patient is intubated and sedated, in no acute distress. HEAD: Normal with no signs of trauma. ENT: Ears normal, nares patent, oropharynx clear without exudates, moist mucous membranes. NECK: Trachea midline, full range of motion, supple. LUNGS: Coarse breath sounds bilaterally, + Kussmaul respirations. Endotracheal tube in place. HEART: Regular rate and rhythm, S1, S2 without murmur, rub or gallop. ABDOMEN: Soft, nontender, nondistended, normoactive bowel sounds, no guarding, no rebound, no hepatosplenomegaly, no masses. EXTREMITIES: 2+ pulses, warm, well-perfused, no edema. SCD's in place with no evidence of skin breakdown. SKIN: Warm, dry, normal turgor, no rashes or lesions noted Laboratory Results - last 24 hr 09/02/17 09/02/17 09/03/17 15:55 15:55 05:00 WBC 13.0 H RBC 3.50 L Hgb 11.1 L Hct 32.7 L MCV 93.2 MCH 31.8 MCHC 34.1 RDW 15.4 Plt Count 209 D MPV 9.3 Total Counted 100 Neutrophils % No Result Required. Neutrophils % (Manual) 76 Band Neuts % (Manual) 10 D Lymphocytes % No Result Required. Lymphocytes % (Manual) 5 L D Monocytes % Monocytes % (Manual) 9 Eosinophils % Basophils % Platelet Estimate Adequate Platelet Comment No clotting detected ESR Sodium Potassium Chloride Carbon Dioxide Anion Gap BUN Creatinine Creat Clearance w eGFR Random Glucose Calcium Phosphorus Magnesium Total Bilirubin AST ALT Alkaline Phosphatase C-Reactive Protein 16.9 H Total Protein Albumin Vancomycin Pre-Dose 15.190 H* 09/03/17 09/03/17 09/03/17 05:00 08:00 08:00 WBC 15.6 H RBC 3.69 L Hgb 11.5 L Hct 35.1 L MCV 95.1 MCH 31.1 MCHC 32.7 RDW 15.6 Plt Count 246 MPV 9.2 Total Counted Neutrophils % 80.9 Neutrophils % (Manual) Band Neuts % (Manual) Lymphocytes % 7.0 L D Lymphocytes % (Manual) Monocytes % 11.0 H Monocytes % (Manual) Eosinophils % 0.8 D Basophils % 0.3 Platelet Estimate Platelet Comment ESR 105 H Sodium 139 Potassium 3.3 L Chloride 108 H Carbon Dioxide 20 L Anion Gap 11 BUN 24 H Creatinine 1.0 Creat Clearance w eGFR > 60 Random Glucose 90 Calcium 7.8 L Phosphorus 2.4 L Magnesium 2.0 Total Bilirubin 0.7 AST 127 H D ALT 74 Alkaline Phosphatase 96 D C-Reactive Protein Total Protein 5.1 L Albumin 1.4 L Vancomycin Pre-Dose Active Medications Generic Name Dose Route Start Last Admin Trade Name Freq PRN Reason Stop Dose Admin Bacitracin 1 applic 09/02/17 10:00 09/03/17 11:16 Bacitracin - TP 1 applic DAILY [facility] Administration Chlordiazepoxide HCl 25 mg 09/02/17 05:17 Librium - PO 09/04/17 12:11 Q4H PRN WITHDRAWAL(CONT SUBST) Chlordiazepoxide HCl 15 mg 09/03/17 11:00 09/03/17 11:16 Librium - PO 09/04/17 05:01 Not Given [id number] [facility] Folic Acid 1 mg 09/02/17 10:00 09/03/17 10:00 Folic Acid - PO 1 mg DAILY [facility] Administration Heparin Sodium (Porcine) 5,000 unit 09/02/17 06:00 09/02/17 22:09 Heparin - SQ 5,000 unit TID [facility] Administration Ceftriaxone Sodium 2 gm/ 100 mls @ 200 mls/hr 09/02/17 10:00 09/03/17 10:00 Dextrose IVPB 200 mls/hr DAILY [facility] Administration Famotidine/Sodium Chloride 50 mls @ 100 mls/hr 09/02/17 10:00 09/03/17 11:15 Pepcid 20 Mg Premixed Ivpb - IVPB 100 mls/hr BID [facility] Administration Phenylephrine HCl 20,000 mcg/ 250 mls @ 75 mls/hr 09/02/17 05:17 09/02/17 22:12 Sodium Chloride IVPB 37.5 mls/hr TITR [facility] Administration Protocol 100 MCG/MIN Propofol 100 mls @ 5.269 mls/hr 09/02/17 05:17 09/03/17 08:10 Diprivan - IVPUSH 15.807 mls/hr TITR [facility] Administration Protocol 10 MCG/KG/MIN Sodium Chloride 1,000 mls @ 100 mls/hr 09/02/17 05:17 09/02/17 22:01 Normal Saline - IV 100 mls/hr ASDIR [facility] Administration Nafcillin Sodium 2 gm/ 100 mls @ 100 mls/hr 09/03/17 15:30 Dextrose IVPB Q4H-IV [facility] Protocol Ibuprofen 800 mg 09/02/17 05:17 09/02/17 22:41 Caldolor Injection - IVPB 800 mg Q6H PRN Administration FEVER Lorazepam 2 mg 09/02/17 05:17 Ativan Injection - IVPUSH Q2H PRN ANXIETY Multivitamins/Minerals 1 each 09/02/17 10:00 09/03/17 11:39 Theragran-M PO 1 each DAILY [facility] Administration Thiamine HCl 100 mg 09/02/17 10:00 09/03/17 10:15 Vitamin B1 - PO 100 mg DAILY [facility] Administration ASSESSMENT/PLAN: 66 yo man with h/o EtOH abuse, and HTN who presents to the ICU in respiratory distress 2/2 aspiration pneumonitis and sepsis. Psych: Alcohol Withdrawal Pt. 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 Not on medication EKG with no acute ST- T wave changes CT chest: emphysematous changes and loss of left lung volume with atelectasis. Echo (09/02) mild mitral annular calcification and decreased RV function. Abesnt pericaridal effusion. Exam limited. Plan: - Consider ALISA in setting of limited echo and MSSA bacteremia with unidentified source. Pulmonary: Aspiration pneumonitis vs. aspiration pneumonia. Presented to ED (08/31) tachycardic, tachypnic and hyperthermic. CT chest~ chronic volume loss of left lung and atelectasis of left lung with no acute cardiopulm pathology. CXR~ atelectasis at left lung base Day 1 s/p intubation following resp. distress Plan: - Wean Propofol gtt GI: U/s depicts hepatosplenomegaly and fatty infiltration of liver : ALEXANDRA: Most likely prerenal Renal U/s Cr/BUN 1.4/-->1.0/ Plan: - Trend Cr/BUN Infectious Disease: Sepsis: Source unidentified Presented to ED tachycardic, tachypnic, and hyperthermic with oral temp 105.3 ( 08/31) . blood cultures +MSSA D/c'd Zosyn Urine Cx pending Sputum cx contaminated WBC 11.3--> 15.6 Plan: - Cont IV NS - D/c Vanc 1000 mg - Switch Nafcillin 2gm q4h - Consider ALISA - Repeat Urine Cx Heme/Onc: Thrombocytopenia ( stable ) 2/2 to alcohol + Splenomegaly PLT 79 (09/01) --> 246 Plan: - CBC QD FEN: IVF, Lytes PRN, NG tube enteral feeds PPx: Heparin 5000 U TID Dispo: Cont ICU Monitoring Visit type - Emergency Visit Emergency Visit: Yes ED Registration Date: 08/31/17 Care time: The patient presented to the Emergency Department on the above date and was hospitalized for further evaluation of their emergent condition. - New Patient This patient is new to me today: No - Critical Care Critical Care patient: Yes Total Critical Care Time (in minutes): 35 Critical Care Statement: The care of this patient involved high complexity decision making to prevent further life threatening deterioration of the patient 's condition and/or to evaluate & treat vital organ system(s) failure or risk of failure.
[2017-09-03] MEDS: NAFCILLIN - 2 GM in DEXTROSE 5%-WATER - 100 ML IVPB SCH ×3 (15:55→22:57)
--- NOTE | 2017-09-03 17:26 | PN ---
Teaching Attending Note Name of Resident: Dominick Kasper ATTENDING PHYSICIAN STATEMENT I saw and evaluated the patient. I reviewed the resident's note and discussed the case with the resident. I agree with the resident's findings and plan as documented. SUBJECTIVE:intubated/sedated OBJECTIVE: Last Vital Signs Temp Pulse Resp BP Pulse Ox 98.4 F 114 H 25 H 113/72 99 09/03/17 13:29 09/03/17 16:00 09/03/17 16:00 09/03/17 16:00 09/03/17 09:30 Intake & Output 08/31/17 09/01/17 09/02/17 09/03/17 23:59 23:59 23:59 23:59 Intake Total 3760 5596.9 1808 Output Total 1125 1000 635 Balance 2635 4596.9 1173 Weight 170 lb 193 lb 9.6 oz 197 lb 9.6 oz 202 lb 7 oz General sedated CV S1 S2 RRR no murmur/rub/gallop Lungs coarse breath sounds anteriorly Abdomen soft NT/ND Extremities 1+ pitting edema Neuro PERRL, +gag ASSESSMENT AND PLAN: 66 yo M with PMH of alcohol abuse, HTN who presented to the ER after being found on the floor. 1. Hypotension- due to sepsis due to Bacteremia and possible aspiration PNA-Tm 102.2 and tachycardic. on 40mcg of phenylephrine. cont IVF, on Ceftriaxone/ Vacno day 2. f/u Cx reports. ID on board. echo negative for vegetations. 2. Acute Hypoxic respiratory failure- s/p intubated on 09/02 after admitted due to tachypnea and hypoxic (not documented with low O2 sat but was on steadily increasing oxygen supplementation RA>NC>[id number]) now on full vent support. titrate down support as tolerated. on propofol and versed. vent management per ICU team 3. Acute transaminitis- likely due to hypotension and ETOH. now improving, cont to monitor 4. Acute ETOH withdrawal- remains tachycardic despite sedation. on versed ggt. will d/c librium at this time as on ggt. can bolus versed as needed for worsening tachycardia. on thiamine/folate/MVI 5. Hypokalemia- KCl IV 6. Hyponatremia-resolved 7. Thrombocytopenia- Secondary to alcohol, splenomegaly. now resolved. no signs of active bleeding 8. HTN-currently on pressors 9. Chronic right subdural hematoma 10. DVT ppx- hep sq 11. MICU monoitoring The care of this patient involved high complexity decision making to prevent further life threatening deterioration of the patient's condition and/or to evaluate & treat vital organ system(s) failure or risk of failure. 45 mins
[2017-09-03] MEDS: SODIUM CHLORIDE 1,000 ML IV SCH (21:02)
[2017-09-03] MEDS: IBUPROFEN 800 MG/8 ML IJ IVPB PRN (21:06)
[2017-09-04] MEDS: NAFCILLIN - 2 GM in DEXTROSE 5%-WATER - 100 ML IVPB SCH ×3 (02:09→09:40)
[2017-09-04] MEDS: PROPOFOL 100 ML IVPUSH SCH ×3 (02:15→15:16)
[2017-09-04] MEDS ORDERED: PT OWN MED DRAWER 7, Y5N ONE ×3 (03:56→21:02)
[2017-09-04] MEDS: PHENYLEPHRINE HCL 20,000 MCG in SODIUM CHLORIDE 248 ML IVPB SCH (06:13)
[2017-09-04] MEDS: HEPARIN NA (PORCINE) 5,000 UNITS/ML 1ML VIAL SQ SCH ×3 (06:15→21:47)
[2017-09-04] MEDS: SODIUM CHLORIDE 1,000 ML IV SCH (06:15)
[2017-09-04] MEDS ORDERED: INSULIN (NOVOLOG MIX 70/30) 100 UNITS/ML MDV SQ ONE (06:26)
--- NOTE | 2017-09-04 06:44 | PN ---
Physical Exam: SUBJECTIVE: Patient seen and examined at bedside. itubated and sedated. had a fever 101.3 over night and was given ibuprofen. OBJECTIVE: Vital Signs Period Temp Pulse Resp BP Sys/Jeff Pulse Ox Last 24 Hr 98.3 F-101 F 61-128 22-28 93-120/57-98 99-100 GENERAL: intubated , sedated HEAD: Normal with no signs of trauma. EYES: PERRL, conjunctiva clear. ENT: dry mucous membranes. LUNGS: Intubated B/L coarse crackles, accessory muscle use. HEART: S1, S2 without murmur, rub or gallop. ABDOMEN: Obese,soft, nontender, nondistended, normoactive bowel sounds, no guarding, no rebound, EXTREMITIES: 1+ pitting edema. NEUROLOGICAL: sedated SKIN: Warm, dry, no rashes or lesions noted Laboratory Results - last 24 hr 09/03/17 09/03/17 09/03/17 05:00 08:00 08:00 WBC 15.6 H RBC 3.69 L Hgb 11.5 L Hct 35.1 L MCV 95.1 MCH 31.1 MCHC 32.7 RDW 15.6 Plt Count 246 MPV 9.2 Neutrophils % 80.9 Lymphocytes % 7.0 L D Monocytes % 11.0 H Eosinophils % 0.8 D Basophils % 0.3 ESR 105 H Sodium 139 Potassium 3.3 L Chloride 108 H Carbon Dioxide 20 L Anion Gap 11 BUN 24 H Creatinine 1.0 Creat Clearance w eGFR > 60 Random Glucose 90 Calcium 7.8 L Phosphorus 2.4 L Magnesium 2.0 Total Bilirubin 0.7 AST 127 H D ALT 74 Alkaline Phosphatase 96 D Total Protein 5.1 L Albumin 1.4 L Active Medications Generic Name Dose Route Start Last Admin Trade Name Freq PRN Reason Stop Dose Admin Bacitracin 1 applic 09/02/17 10:00 09/03/17 19:44 Bacitracin - TP Not Given DAILY [facility] Folic Acid 1 mg 09/02/17 10:00 09/03/17 10:00 Folic Acid - PO 1 mg DAILY [facility] Administration Heparin Sodium (Porcine) 5,000 unit 09/02/17 06:00 09/04/17 06:15 Heparin - SQ 5,000 unit TID [facility] Administration Ceftriaxone Sodium 2 gm/ 100 mls @ 200 mls/hr 09/02/17 10:00 09/03/17 10:00 Dextrose IVPB 200 mls/hr DAILY [facility] Administration Famotidine/Sodium Chloride 50 mls @ 100 mls/hr 09/02/17 10:00 09/03/17 21:04 Pepcid 20 Mg Premixed Ivpb - IVPB 100 mls/hr BID [facility] Administration Phenylephrine HCl 20,000 mcg/ 250 mls @ 75 mls/hr 09/02/17 05:17 09/04/17 06:13 Sodium Chloride IVPB 30 mls/hr TITR [facility] Administration Protocol 100 MCG/MIN Propofol 100 mls @ 5.269 mls/hr 09/02/17 05:17 09/04/17 06:13 Diprivan - IVPUSH 15.807 mls/hr TITR [facility] Administration Protocol 10 MCG/KG/MIN Sodium Chloride 1,000 mls @ 100 mls/hr 09/02/17 05:17 09/04/17 06:15 Normal Saline - IV 100 mls/hr ASDIR [facility] Administration Nafcillin Sodium 2 gm/ 100 mls @ 100 mls/hr 09/03/17 15:30 09/04/17 06:16 Dextrose IVPB 100 mls/hr Q4H-IV [facility] Administration Protocol Ibuprofen 800 mg 09/02/17 05:17 09/03/17 21:06 Caldolor Injection - IVPB 800 mg Q6H PRN Administration FEVER Lorazepam 2 mg 09/02/17 05:17 Ativan Injection - IVPUSH Q2H PRN ANXIETY Multivitamins/Minerals 1 each 09/02/17 10:00 09/03/17 11:39 Theragran-M PO 1 each DAILY [facility] Administration Thiamine HCl 100 mg 09/02/17 10:00 09/03/17 10:15 Vitamin B1 - PO 100 mg DAILY [facility] Administration 09/02/17 00:00 Sputum - Endotracheal Suction W/O Vent Gram Stain - Final 09/01/17 15:50 Blood - Peripheral Venous Blood Culture - Preliminary Pending Organism 09/01/17 15:55 Blood - Peripheral Venous Blood Culture - Preliminary Pending Organism 08/31/17 23:22 Urine - Urine Clean Catch Urine Culture - Final Contaminated: Please Repeat 09/01/17 00:01 Blood - Peripheral Venous Blood Culture - Preliminary Presumptive Mssa (Pbp2a Neg) 09/01/17 05:00 Blood - Peripheral Venous Blood Culture - Preliminary Presumptive Mssa (Pbp2a Neg) CT Chest : loss of left lung volume with atelectasis. Emphysema like changes. CBC, BMP 09/04/17 08:00 09/04/17 08:00 ASSESSMENT/PLAN: 66 yo man with h/o EtOH abuse, and HTN who presents to the ICU in respiratory distress 2/2 aspiration peritonitis and sepsis. # Sepsis due to aspiration pneumonia vs skin source vs unknown source * Presented to ED tachycardic, tachypnic, and hyperthermic with oral temp 105.3 (08/31) * blood cultures +MSSA bacteremia * Urine Cx pending * Sputum cx contaminated * WBC 11.3 trend to 15.6 * Cont IV NS * D/c'd Zosyn , D/c Vanc 1000 mg , * Switch Nafcillin 2gm q4h per ID * Consider ALISA per ID due to staph bacterimia * Repeat Urine Cx, Blood cx # Acute Etoh withdrawal * Pt. presented to ED with tremors, tachycardic, and tachypneic * H/o failed detox attempts and rehabilitation * Last alcoholic beverage 2 days [employer] * Hold Chlordiazepoxide * Thiamine, Folic acid * CIWA protocol * continue IV NS * Hold Lorazepam * on versed ggt * can bolus versed as needed for worsening tachycardia. # H/o HTN. * Not on medication * EKG with no acute ST- T wave changes * Echo shows preserved LV systolic function,RV systolic function seems diminished,No pericardial effusion,No AR, No MR, No TR * Currently on pressor #Acute transaminitis, improving * likely due to hypotension and ETOH. * Abdominal U/s shows hepatosplenomegaly and fatty infiltration of liver * monitor AST, ALT #ALEXANDRA * Most likely pre-renal * Renal U/s * Trend Cr/BUN * # Aspiration Pneumonia vs aspiration peritonitis * Presented to ED hyperthermic, tachypnic, tachcardic * blood cultures +MSSA bacterimia * D/c'd Zosyn * Cont IV NS * Cont Vanc 1000 mg * IV NS * Wean Propofol gtt # Thrombocytopenia, improved * likely 2/2 to alcohol * + Splenomegaly * Plt 246 today * No signs of active bleeding * repeat CBC # Normocytic Anemia * likely 2/2 Alcohol abuse * H/H 11.5/35.1 * No acute bleeding * transfuse if Hgb< 8 * Monitor CBC # Chronic right subdural hematoma, stable #FEN: * IVF, * Lytes : Hypokalemia- KCl IV, Hyponatremia-resolved * NG tube #PPx: Heparin 5000 U TID, scds #Dispo: Cont ICU Monitoring Visit type - Emergency Visit Emergency Visit: Yes ED Registration Date: 08/31/17 Care time: The patient presented to the Emergency Department on the above date and was hospitalized for further evaluation of their emergent condition. - New Patient This patient is new to me today: No - Critical Care Critical Care patient: Yes Total Critical Care Time (in minutes): 40 Critical Care Statement: The care of this patient involved high complexity decision making to prevent further life threatening deterioration of the patient 's condition and/or to evaluate & treat vital organ system(s) failure or risk of failure.
--- NOTE | 2017-09-04 07:46 | PN ---
Progress Note, Physician Chief Complaint: ID Temps down today Remains intubated Dr Valadez has pt on Nafcillin - Current Medication List Current Medications: Active Medications Bacitracin (Bacitracin -) 1 applic TP DAILY [facility] Last Admin: 09/03/17 19:44 Dose: Not Given Folic Acid (Folic Acid -) 1 mg PO DAILY [facility] Last Admin: 09/03/17 10:00 Dose: 1 mg Heparin Sodium (Porcine) (Heparin -) 5,000 unit SQ TID [facility] Last Admin: 09/04/17 06:15 Dose: 5,000 unit Ceftriaxone Sodium 2 gm/ (Dextrose) 100 mls @ 200 mls/hr IVPB DAILY [facility] Last Admin: 09/03/17 10:00 Dose: 200 mls/hr Famotidine/Sodium Chloride (Pepcid 20 Mg Premixed Ivpb -) 50 mls @ 100 mls/hr IVPB BID [facility] Last Admin: 09/03/17 21:04 Dose: 100 mls/hr Phenylephrine HCl 20,000 mcg/ (Sodium Chloride) 250 mls @ 75 mls/hr IVPB TITR [facility]; 100 MCG/MIN PRN Reason: Protocol Last Admin: 09/04/17 06:13 Dose: 30 mls/hr Propofol (Diprivan -) 100 mls @ 5.269 mls/hr IVPUSH TITR [facility]; 10 MCG/KG/MIN PRN Reason: Protocol Last Admin: 09/04/17 06:13 Dose: 15.807 mls/hr Sodium Chloride (Normal Saline -) 1,000 mls @ 100 mls/hr IV ASDIR [facility] Last Admin: 09/04/17 06:15 Dose: 100 mls/hr Nafcillin Sodium 2 gm/ (Dextrose) 100 mls @ 100 mls/hr IVPB Q4H-IV [facility] PRN Reason: Protocol Last Admin: 09/04/17 06:16 Dose: 100 mls/hr Ibuprofen (Caldolor Injection -) 800 mg IVPB Q6H PRN PRN Reason: FEVER Last Admin: 09/03/17 21:06 Dose: 800 mg Lorazepam (Ativan Injection -) 2 mg IVPUSH Q2H PRN PRN Reason: ANXIETY Multivitamins/Minerals (Theragran-M) 1 each PO DAILY [facility] Last Admin: 09/03/17 11:39 Dose: 1 each Thiamine HCl (Vitamin B1 -) 100 mg PO DAILY [facility] Last Admin: 09/03/17 10:15 Dose: 100 mg - Objective Vital Signs: Vital Signs Temperature 98.3 F 09/04/17 06:00 Pulse Rate 66 09/04/17 06:59 Respiratory Rate 25 H 09/04/17 07:03 Blood Pressure 103/67 09/04/17 06:59 O2 Sat by Pulse Oximetry (%) 100 09/03/17 22:00 Constitutional: Yes: Other (INtubated) Neck: Yes: WNL, Supple Cardiovascular: Yes: Regular Rate and Rhythm, S1, S2. No: Murmur, Rub Respiratory: Yes: WNL, Regular, CTA Bilaterally, Other (Cource rhonchi bialterally) Gastrointestinal: Yes: WNL, Normal Bowel Sounds, Soft. No: Splenomegaly, Tenderness Edema: No Labs: CBC, BMP 09/03/17 08:00 09/03/17 08:00 INR, PTT INR 0.96 (0.82-1.09) 09/01/17 09:05 Problem List - Problems (1) Pneumonia Code(s): J18.9 - PNEUMONIA, UNSPECIFIED ORGANISM (2) Respiratory failure with hypoxia Code(s): J96.91 - RESPIRATORY FAILURE, UNSPECIFIED WITH HYPOXIA (3) Staphylococcus aureus bacteremia Code(s): R78.81 - BACTEREMIA Assessment/Plan Microbiology 09/02/17 00:00 Sputum - Endotracheal Suction W/O Vent Gram Stain - Final 09/01/17 15:55 Blood - Peripheral Venous Blood Culture - Final Staphylococcus Aureus 09/01/17 15:50 Blood - Peripheral Venous Blood Culture - Final Staphylococcus Aureus 09/01/17 05:00 Blood - Peripheral Venous Blood Culture - Final Staphylococcus Aureus 09/01/17 00:01 Blood - Peripheral Venous Blood Culture - Final Staphylococcus Aureus 08/31/17 23:22 Urine - Urine Clean Catch Urine Culture - Final Contaminated: Please Repeat 09/02/17 00:00 Sputum - Endotracheal Suction W/O Vent Sputum Culture - Preliminary Yeast Like Organism Laboratory Tests 09/02/17 09/03/17 09/03/17 07:10 05:00 05:00 WBC Hgb Hct Plt Count Neutrophils % Lymphocytes % Monocytes % ESR 105 H ABG pH 7.38 ABG pCO2 at Pt Temp 30.6 L ABG pO2 at Pt Temp 225.0 H* BUN Creatinine Creat Clearance w eGFR C-Reactive Protein 16.9 H 09/03/17 09/03/17 08:00 08:00 WBC 15.6 H Hgb 11.5 L Hct 35.1 L Plt Count 246 Neutrophils % 80.9 Lymphocytes % 7.0 L D Monocytes % 11.0 H ESR ABG pH ABG pCO2 at Pt Temp ABG pO2 at Pt Temp BUN 24 H Creatinine 1.0 Creat Clearance w eGFR > 60 C-Reactive Protein Assessment Sepsis syndrome MSSA bacteremia Respiratory failure Chronic alcoholism Pneumonia could all be hematogenous etiology from staph Plan Repeat blood culture ? sterile now If bacteremia persistant favor ALISA ( NO veg seen 2D) Esau EMERY
[2017-09-04 07:58] LABS: ARTERIAL BLD GAS O2 SATURATION 98.5 % (90-98.9); ARTERIAL BLOOD GAS BASE EXCESS -4.5 meq/l (-2-2); ARTERIAL BLOOD GAS HCO3 19.3 meq/L (22-26); ARTERIAL BLOOD GAS pH 7.38 (7.35-7.45)
[2017-09-04 07:59] LABS: ALLENS TEST POSITIVE; ART PUNCT SITE LEFT RADIAL; LPM/O2% 45%; MECH. VENT. YES; PT. ON O2? YES; TYPE OF O2 VENT; VENT RATE 25; VT/PRESS 450
[2017-09-04 08:36] LABS: BASOPHIL 0.3 % (0-2.0); EOSINOPHIL 0.9 % (0-4.5); MCH 31.3 pg (25.7-33.7); MCHC 33.1 g/dl (32.0-35.9); MEAN CELL VOLUME 94.7 fl (80-96); MEAN PLT VOLUME 7.8 fl (7.5-11.1); NEUTROPHILS 82.4 % (42.8-82.8); PLATELET COUNT 326 K/MM3 (134-434); RDW 15.2 % (11.9-15.9)
[2017-09-04 09:15] LABS: ALBUMIN 1.2 g/dl (3.4-5.0); ANION GAP 7 (8-16); BILIRUBIN,TOTAL 3.5 mg/dL (0.2-1.0); CALCIUM 7.6 mg/dL (8.5-10.1); CO2 23 mmol/L (21-32); CREATININE 1.3 mg/dL (0.7-1.3); GLUCOSE,RANDOM 117 mg/dL (74-106); SGOT/AST 100 U/L (15-37); SGPT/ALT 60 U/L (12-78); TOT PROT 5.2 g/dl (6.4-8.2)
[2017-09-04 09:16] LABS: ALK PHOS 186 U/L (45-117)
[2017-09-04 09:29] LABS: PHOSPHOROUS 2.6 mg/dL (2.5-4.9)
[2017-09-04] MEDS: FAMOTIDINE 20 MG/50 ML IVPB 50 ML IVPB SCH ×2 (09:42→21:46)
--- NOTE | 2017-09-04 10:12 | CON.CARD ---
Consult Consult Specialty:: Cardiology Referred by:: Hospitalist Medicine Reason for Consultation:: MSSA Bacteremia, r/o endocarditis - History of Present Illness Chief Complaint: Dyspnea History of Present Illness: This is a 66yo man with EtOH abuse unsuccessful detox in past admitted with altered mental status, fractured rib and small left sided pneumothorax, high fevers felt most likely related to withdrawal but also concerning for aspiration pneumonia given hypoxia, increased RR and retrocardiac opacity, MSSA bacteremia intubated for progressive respiratory failure, currently on Diprivan and Jamie gtt. - History Source History Provided By: Medical Record Limitations to Obtaining History: Poor Historian - Past Medical History Cardio/Vascular: Yes: HTN Musculoskeletal: Yes: Other (left rib pain ) Additional Medical History: chronic alcoholism with multiple detox and rehabs in the past.most recent at [facility] x 12 months - states he began drinking immediately after d/c . - Alcohol/Substance Use Hx Alcohol Use: Yes Number of Drinks Daily: 8 (He states he drinks about 8 16oz drinks per day) - Smoking History Smoking history: Former smoker Have you smoked in the past 12 months: No If you are a former smoker, when did you quit?: 42 years ago - Social History ADL: Independent Home Medications - Allergies Allergies/Adverse Reactions: Allergies Allergy/AdvReac Type Severity Reaction Status Date / Time No Known Allergies Allergy Verified 07/16/17 15:34 - Home Medications Home Medications: Ambulatory Orders Unobtainable [Unobtainable] 08/31/17 Review of Systems Unable to obtain ROS, reason: Intubated Vital Signs: Vital Signs Temperature 99 F 09/04/17 09:00 Pulse Rate 74 09/04/17 09:00 Respiratory Rate 27 H 09/04/17 09:00 Blood Pressure 130/84 09/04/17 09:00 O2 Sat by Pulse Oximetry (%) 100 09/03/17 22:00 Respiratory: Yes: Intubated, Mechanically Ventilated, Rhonchi Gastrointestinal: Yes: Normal Bowel Sounds, Soft Cardiovascular: Yes: Regular Rate and Rhythm JVD: No Carotid Bruit: No Heart Sounds: Yes: S1, S2 Murmur: Yes: Systolic Murmur, Grade 1 Edema: No - Other Data Labs, Other Data: CBC, BMP 09/04/17 08:00 09/04/17 08:00 INR, PTT INR 0.96 (0.82-1.09) 09/01/17 09:05 ST @ 105 inferior Qs Imaging - Results Chest X-ray: Report Reviewed (Bilateral effusions, left retrocardiac ATX) Problem List - Problems (1) Hypokalemia Code(s): E87.6 - HYPOKALEMIA (2) Pneumonia Code(s): J18.9 - PNEUMONIA, UNSPECIFIED ORGANISM Qualifiers: Pneumonia type: aspiration pneumonia (3) Respiratory failure with hypoxia Code(s): J96.91 - RESPIRATORY FAILURE, UNSPECIFIED WITH HYPOXIA Qualifiers: Chronicity: acute Qualified Code(s): J96.01 - Acute respiratory failure with hypoxia; J96.01 - Acute respiratory failure with hypoxia; J96.01 - Acute respiratory failure with hypoxia (4) Staphylococcus aureus bacteremia Code(s): R78.81 - BACTEREMIA (5) Withdrawal symptoms, alcohol Code(s): F10.239 - ALCOHOL DEPENDENCE WITH WITHDRAWAL, UNSPECIFIED Qualifiers : Complication of substance-induced condition: uncomplicated Qualified Code(s): F10.230 - Alcohol dependence with withdrawal, uncomplicated; F10.230 - Alcohol dependence with withdrawal, uncomplicated; F10.230 - Alcohol dependence with withdrawal, uncomplicated Assessment/Plan Echo: 09/02/2017 Technical difficult study, prob preserved LV fxn, but can't r/ o RWMA 1. Acute hypoxic respiratory failure 2. Pneumonia, MSSA bacteremia, septic shock r/o endocarditis 3. Alcohol dependence P:1. Follow surveillance cultures to monitor clearance on appropriate abx coverage. Will consider ALISA if bacteremia persists once hemodynamics stabilize, ideally with vent support 2. Wean phenylephrine gtt for MAP>65 mmHg 3. Enteral feeds, DVT and GI prophylaxis, librium taper, sedation holiday, replete K 4. Thank you for consultative opportunity
[2017-09-04] MEDS: KCL 10 MEQ IVPB 100 ML IVPB SCH ×2 (10:23→11:50)
[2017-09-04 10:32] LABS: URINE APPEARANCE SLCLOUDY; URINE BILIRUBIN NEGATIVE (NEGATIVE); URINE BLOOD 2+ (NEGATIVE); URINE COLOR AMBER; URINE GLUCOSE (UA) NEGATIVE (NEGATIVE); URINE KETONE NEGATIVE (NEGATIVE); URINE NITRITE NEGATIVE (NEGATIVE); URINE PROTEIN NEGATIVE (NEGATIVE)
[2017-09-04 10:52] LABS: GRANULAR CASTS 3 /lpf; URINE BACTERIA RARE /hpf (NONE SEEN); URINE HYALINE CAST 1 /lpf; URINE MUCUS RARE; URINE RBC 40 /hpf (0-3); URINE WBC 16 /hpf (3-5)
--- NOTE | 2017-09-04 11:42 | PN ---
Teaching Attending Note Name of Resident: Radha Sterling ATTENDING PHYSICIAN STATEMENT I saw and evaluated the patient. I reviewed the resident's note and discussed the case with the resident. I agree with the resident's findings and plan as documented. SUBJECTIVE: Pt seen and examined in the ICU. Remains intubated, sedated on phenylephrine gtt. No fevers recorded. Vented on volume assist control with 45% FiO2, PEEP 5. OBJECTIVE: Last Vital Signs Temp Pulse Resp BP Pulse Ox 99 F 71 29 H 108/71 100 09/04/17 10:00 09/04/17 10:35 09/04/17 10:35 09/04/17 10:00 09/04/17 10:35 Intake & Output 09/01/17 09/02/17 09/03/17 09/04/17 23:59 23:59 23:59 23:59 Intake Total 3760 5596.9 3815 2274.6 Output Total 1125 1000 1635 200 Balance 2635 4596.9 2180 2074.6 Weight 193 lb 9.6 oz 197 lb 9.6 oz 202 lb 7 oz 207 lb 8 oz Gen: intubated, sedated Heart: RRR Lung: scattered rhonchi Abd: soft, nontender Ext: + edema CBC, BMP 09/04/17 08:00 09/04/17 08:00 Active Medications Bacitracin (Bacitracin -) 1 applic TP DAILY [facility] Last Admin: 09/03/17 19:44 Dose: Not Given Folic Acid (Folic Acid -) 1 mg PO DAILY [facility] Last Admin: 09/03/17 10:00 Dose: 1 mg Heparin Sodium (Porcine) (Heparin -) 5,000 unit SQ TID [facility] Last Admin: 09/04/17 06:15 Dose: 5,000 unit Ceftriaxone Sodium 2 gm/ (Dextrose) 100 mls @ 200 mls/hr IVPB DAILY [facility] Last Admin: 09/03/17 10:00 Dose: 200 mls/hr Famotidine/Sodium Chloride (Pepcid 20 Mg Premixed Ivpb -) 50 mls @ 100 mls/hr IVPB BID [facility] Last Admin: 09/04/17 09:42 Dose: 100 mls/hr Phenylephrine HCl 20,000 mcg/ (Sodium Chloride) 250 mls @ 75 mls/hr IVPB TITR [facility]; 100 MCG/MIN PRN Reason: Protocol Last Admin: 09/04/17 06:13 Dose: 30 mls/hr Propofol (Diprivan -) 100 mls @ 5.269 mls/hr IVPUSH TITR [facility]; 10 MCG/KG/MIN PRN Reason: Protocol Last Admin: 09/04/17 06:13 Dose: 15.807 mls/hr Sodium Chloride (Normal Saline -) 1,000 mls @ 100 mls/hr IV ASDIR [facility] Last Admin: 09/04/17 06:15 Dose: 100 mls/hr Potassium Chloride (Potassium Chloride 10 Meq Premix Ivpb -) 100 mls @ 100 mls/ hr IVPB Q60M [facility] Stop: 09/04/17 11:59 Last Admin: 09/04/17 10:23 Dose: 100 mls/hr Cefazolin Sodium 2 gm/ (Dextrose) 50 mls @ 100 mls/hr IVPB DAILY [facility] Ibuprofen (Caldolor Injection -) 800 mg IVPB Q6H PRN PRN Reason: FEVER Last Admin: 09/03/17 21:06 Dose: 800 mg Lorazepam (Ativan Injection -) 2 mg IVPUSH Q2H PRN PRN Reason: ANXIETY Multivitamins/Minerals (Theragran-M) 1 each PO DAILY [facility] Last Admin: 09/03/17 11:39 Dose: 1 each Thiamine HCl (Vitamin B1 -) 100 mg PO DAILY [facility] Last Admin: 09/03/17 10:15 Dose: 100 mg ASSESSMENT AND PLAN: Acute Hypoxic Respiratory Failure Pneumonia MSSA Bacteremia Septic Shock Alcohol Dependence - continue antibiotics per ID - f/u repeat blood cultures - if persistently bacteremic, may need ALISA - taper off phenylephrine gtt - taper FiO2 to keep SpO2 >90% - lighten sedation in AM to assess mental status - spontaneous breathing trials as tolerated when mental status improved - enteral feeds if unable to extubate - DVT/GI prophylaxis critical care time spent in reviewing chart, evaluating patient and formulating plan 35 min
[2017-09-04] MEDS: CEFTRIAXONE 2 GM in DEXTROSE 5%-WATER - 100 ML IVPB SCH (11:47)
[2017-09-04] MEDS: MULTIVITAMINS THER W-MINERALS COMBO TABLET (FP) PO SCH (11:55)
[2017-09-04] MEDS: THIAMINE HCL 100 MG TABLET (FP) PO SCH (11:55)
[2017-09-04] MEDS: FOLIC ACID 1 MG TABLET (FP) PO SCH (11:55)
[2017-09-04] MEDS: BACITRACIN 15 GM TUBE TOPICAL OINTMENT TP SCH (11:56)
[2017-09-04] MEDS ORDERED: CEFAZOLIN 2 GM/D5W 50 ML IVPB SCH (12:15)
--- NOTE | 2017-09-04 14:26 | PN ---
Teaching Attending Note Name of Resident: Dominick Kasper ATTENDING PHYSICIAN STATEMENT I saw and evaluated the patient. I reviewed the resident's note and discussed the case with the resident. I agree with the resident's findings and plan as documented. SUBJECTIVE:sedated/intubated OBJECTIVE: Last Vital Signs Temp Pulse Resp BP Pulse Ox 99.1 F 81 26 H 115/72 100 09/04/17 13:30 09/04/17 13:30 09/04/17 13:30 09/04/17 13:30 09/04/17 10:35 Intake & Output 09/01/17 09/02/17 09/03/17 09/04/17 23:59 23:59 23:59 23:59 Intake Total 3760 5596.9 3815 2274.6 Output Total 1125 1000 1635 200 Balance 2635 4596.9 2180 2074.6 Weight 193 lb 9.6 oz 197 lb 9.6 oz 202 lb 7 oz 207 lb 8 oz General sedated CV S1 S2 RRR no murmur/rub/gallop Lungs coarse breath sounds Abdomen soft NT/ND Extremities 1+ pitting edema ASSESSMENT AND PLAN: 66 yo M with PMH of alcohol abuse, HTN who presented to the ER after being found on the floor. 1. Hypotension- due to sepsis due to Bacteremia and possible aspiration PNA-Tm 101. still on phenylephrine. titrate down as tolerated. BCX +MSSA. abx switched to Ceftriaxone and Nafcillin. repeat BCx sent today. if remains persistent bacteremic will need to consider ALISA as TTE was negative but poor study. pt is currently not hemodynamically stable for ALISA and is not emergent. 2. Acute Hypoxic respiratory failure- s/p intubated on 09/02 after admitted due to tachypnea and hypoxic (not documented with low O2 sat but was on steadily increasing oxygen supplementation RA>[id number]>[id number]) now on full vent support. titrate down support as tolerated. on propofol and versed. vent management per ICU team 3. Acute transaminitis- likely due to hypotension and ETOH. now improving, cont to monitor 4. Acute ETOH withdrawal- on versed ggt. on thiamine/folate/MVI 5. Hypokalemia- KCl IV 6. Hyponatremia-resolved 7. Thrombocytopenia- Secondary to alcohol, splenomegaly. now resolved. no signs of active bleeding 8. HTN-currently on pressors 9. Chronic right subdural hematoma 10. DVT ppx- hep sq 11. MICU monoitoring The care of this patient involved high complexity decision making to prevent further life threatening deterioration of the patient's condition and/or to evaluate & treat vital organ system(s) failure or risk of failure. 40 mins
[2017-09-04] MEDS: SODIUM CHLORIDE 0.9%/KCL 1,000 ML IV SCH (14:45)
[2017-09-04] MEDS: CEFAZOLIN 2 GM/D5W 50 ML IVPB SCH ×2 (14:45→19:26)
--- NOTE | 2017-09-04 15:07 | PN ---
Physical Exam: SUBJECTIVE: Patient seen and examined Patient resting in bed NAD, intubated, sedated. Low grade fever 101 last night, now afebrile, hemodynamically stable, still on Neosynephrine @ 40. Vent 25/450/ 45%/03/27 OBJECTIVE: Vital Signs Period Temp Pulse Resp BP Sys/Jeff Pulse Ox Last 24 Hr 98.3 F-101 F 61-128 25-29 93-130/60-98 99-100 ENERAL: intubated and sedated, in no acute distress. HEAD: Normal with no signs of trauma. ENT: moist mucous membranes. NECK: supple. LUNGS: Coarse breath sounds bilaterally, Endotracheal tube in place. HEART: Regular rate and rhythm, S1, S2 without murmur, rub or gallop. ABDOMEN: Soft, nontender, nondistended, normoactive bowel sounds, no guarding, no rebound, no hepatosplenomegaly, no masses. EXTREMITIES: warm, well-perfused, no edema. SCD's in place with no evidence of skin breakdown. SKIN: Warm, dry Laboratory Results - last 24 hr 09/04/17 09/04/17 09/04/17 07:25 08:00 08:00 WBC 14.0 H RBC 3.57 L Hgb 11.2 L Hct 33.9 L MCV 94.7 MCH 31.3 MCHC 33.1 RDW 15.2 Plt Count 326 D MPV 7.8 D Neutrophils % 82.4 Lymphocytes % 7.8 L Monocytes % 8.6 Eosinophils % 0.9 Basophils % 0.3 Puncture Site Left radial ABG pH 7.38 ABG pCO2 at Pt Temp 33.2 L ABG pO2 at Pt Temp 107.0 H D ABG HCO3 19.3 L ABG O2 Sat (Measured) 98.5 ABG O2 Content 14.8 L ABG Base Excess -4.5 L Anoop Test Positive O2 Delivery Device Vent Oxygen Flow Rate 45% Vent Mode A/c Vent Rate 25 Mechanical Rate Yes PEEP 5.0 Pressure Support Vent 450 Sodium Potassium Chloride Carbon Dioxide Anion Gap BUN Creatinine Creat Clearance w eGFR Random Glucose Calcium Phosphorus Magnesium Total Bilirubin AST ALT Alkaline Phosphatase Total Protein Albumin Urine Color Urine Appearance Urine pH Urine Protein Urine Glucose (UA) Urine Ketones Urine Blood Urine Nitrite Urine Bilirubin Urine Urobilinogen Urine RBC Urine WBC Ur Epithelial Cells Urine Bacteria Hyaline Casts Granular Casts Urine Mucus Random Vancomycin 7.530 10/18/17 10/18/17 10/18/17 08:00 08:00 09:00 WBC RBC Hgb Hct MCV MCH MCHC RDW Plt Count MPV Neutrophils % Lymphocytes % Monocytes % Eosinophils % Basophils % Puncture Site ABG pH ABG pCO2 at Pt Temp ABG pO2 at Pt Temp ABG HCO3 ABG O2 Sat (Measured) ABG O2 Content ABG Base Excess Anoop Test O2 Delivery Device Oxygen Flow Rate Vent Mode Vent Rate Mechanical Rate PEEP Pressure Support Vent Sodium 139 Potassium 3.2 L Chloride 109 H Carbon Dioxide 23 Anion Gap 7 L BUN 26 H Creatinine 1.3 D Creat Clearance w eGFR 55.06 Random Glucose 117 H D Calcium 7.6 L Phosphorus 2.6 Cancelled Magnesium 2.0 Cancelled Total Bilirubin 3.5 H D AST 100 H D ALT 60 Alkaline Phosphatase 186 H D Total Protein 5.2 L Albumin 1.2 L Urine Color Brie Urine Appearance Slcloudy Urine pH 5.0 Urine Protein Negative Urine Glucose (UA) Negative Urine Ketones Negative Urine Blood 2+ H Urine Nitrite Negative Urine Bilirubin Negative Urine Urobilinogen 2.0 Urine RBC 40 Urine WBC 16 Ur Epithelial Cells Rare Urine Bacteria Rare Hyaline Casts 1 Granular Casts 3 Urine Mucus Rare Random Vancomycin Active Medications Generic Name Dose Route Start Last Admin Trade Name Freq PRN Reason Stop Dose Admin Bacitracin 1 applic 09/02/17 10:00 09/04/17 11:56 Bacitracin - TP 1 applic DAILY [facility] Administration Folic Acid 1 mg 09/02/17 10:00 09/04/17 11:55 Folic Acid - PO 1 mg DAILY [facility] Administration Heparin Sodium (Porcine) 5,000 unit 09/02/17 06:00 09/04/17 14:45 Heparin - SQ 5,000 unit TID [facility] Administration Famotidine/Sodium Chloride 50 mls @ 100 mls/hr 09/02/17 10:00 09/04/17 09:42 Pepcid 20 Mg Premixed Ivpb - IVPB 100 mls/hr BID [facility] Administration Phenylephrine HCl 20,000 mcg/ 250 mls @ 75 mls/hr 09/02/17 05:17 09/04/17 12:14 Sodium Chloride IVPB 25.06 mcg/min TITR [facility] Titration Protocol 100 MCG/MIN Propofol 100 mls @ 5.269 mls/hr 09/02/17 05:17 09/04/17 12:15 Diprivan - IVPUSH 25.05 mcg/kg/min TITR [facility] Titration Protocol 10 MCG/KG/MIN Cefazolin Sodium/Dextrose 50 mls @ 100 mls/hr 09/04/17 12:30 09/04/17 14:45 Ancef 2 Gm Premixed Ivpb - IVPB 100 mls/hr Q8H-IV [facility] Administration Potassium Chloride/Sodium Chloride 1,000 mls @ 100 mls/hr 09/04/17 14:27 14:45 Ns+20 Meq Kcl - IV 100 mls/hr ASDIR [facility] Administration Ibuprofen 800 mg 09/02/17 05:17 09/03/17 21:06 Caldolor Injection - IVPB 800 mg Q6H PRN Administration FEVER Lorazepam 2 mg 09/02/17 05:17 Ativan Injection - IVPUSH Q2H PRN ANXIETY Multivitamins/Minerals 1 each 09/02/17 10:00 09/04/17 11:55 Theragran-M PO 1 each DAILY [facility] Administration Thiamine HCl 100 mg 09/02/17 10:00 09/04/17 11:55 Vitamin B1 - PO 100 mg DAILY [facility] Administration ASSESSMENT/PLAN: 66 yo man with h/o EtOH abuse, and HTN who presents to the ICU in respiratory distress 2/2 aspiration pneumonitis and sepsis. ID *septic shock -unknown source: pulm vs Cardiac -MSSA blood cultures + x 2; repeat cultures p/d -urine clear -leukocytosis improving -cefazolin Neuro -sedated; daily sedation vacation. *EtOH dependance -rehab consult once stable -librium sedation PRN Pulm *Acute Hypoxic Respiratory Failure -daily weaning trials off vent (day2) -FiO2 SpO2 >90% *Aspiration pneumonitis vs. aspiration pneumonia -possible source of MSSA bacteremia -coverage with cefazolin -Daily cxr *Emphysema/copd -CT chest: emphysematous changes and loss of left lung volume with atelectasis. CV *suspected vegetation as source of MSSA bacteremia not seen on TTE -consider ALISA if bacteremia does not clear on next blood culture *Hypotension due to septic shock -wean off phenylephrine gtt *h/o HTN MSSA Bacteremia Septic Shock Alcohol Dependence GI *hyperbilirubinemia -t bili 3.5 acutely, likley due to abx cholestatis, previous abd us no gb sones or duct pathology; abx switched *ALEXANDRA resolved FEN: IVF, Lytes PRN, NG tube enteral feeds PPx: Heparin 5000 U TID, PPI Dispo: Cont ICU Monitoring Problem List - Problems (1) Abuse, drug or alcohol Code(s): F19.10 - OTHER PSYCHOACTIVE SUBSTANCE ABUSE, UNCOMPLICATED (2) Pneumonia Code(s): J18.9 - PNEUMONIA, UNSPECIFIED ORGANISM Qualifiers: Pneumonia type: aspiration pneumonia (3) Respiratory failure with hypoxia Code(s): J96.91 - RESPIRATORY FAILURE, UNSPECIFIED WITH HYPOXIA Qualifiers: Chronicity: acute Qualified Code(s): J96.01 - Acute respiratory failure with hypoxia; J96.01 - Acute respiratory failure with hypoxia; J96.01 - Acute respiratory failure with hypoxia (4) Staphylococcus aureus bacteremia Code(s): R78.81 - BACTEREMIA (5) Thrombocytopenia Code(s): D69.6 - THROMBOCYTOPENIA, UNSPECIFIED (6) Withdrawal symptoms, alcohol Code(s): F10.239 - ALCOHOL DEPENDENCE WITH WITHDRAWAL, UNSPECIFIED Qualifiers : Complication of substance-induced condition: uncomplicated Qualified Code(s): F10.230 - Alcohol dependence with withdrawal, uncomplicated; F10.230 - Alcohol dependence with withdrawal, uncomplicated; F10.230 - Alcohol dependence with withdrawal, uncomplicated Visit type - Emergency Visit Emergency Visit: Yes ED Registration Date: 08/31/17 Care time: The patient presented to the Emergency Department on the above date and was hospitalized for further evaluation of their emergent condition. - New Patient This patient is new to me today: Yes Date on this admission: 09/04/17 - Critical Care Critical Care patient: Yes Total Critical Care Time (in minutes): 35 Critical Care Statement: The care of this patient involved high complexity decision making to prevent further life threatening deterioration of the patient 's condition and/or to evaluate & treat vital organ system(s) failure or risk of failure. - Discharge Referral Referred to [facility] Med [facility] No
[2017-09-04 16:45] LABS: URINE LEUK ESTERASE Negative (NEGATIVE)
[2017-09-05] MEDS: IBUPROFEN 800 MG/8 ML IJ IVPB PRN ×3 (01:40→21:41)
[2017-09-05] MEDS: PROPOFOL 100 ML IVPUSH SCH ×2 (02:00→21:00)
[2017-09-05 06:25] LABS: MCHC 34.1 g/dl (32.0-35.9); MEAN CELL VOLUME 93.7 fl (80-96); MEAN PLT VOLUME 7.9 fl (7.5-11.1); PLATELET COUNT 349 K/MM3 (134-434); RDW 15.7 % (11.9-15.9); WHITE BLOOD COUNT 8.3 K/mm3 (4.0-10.0)
[2017-09-05] MEDS: HEPARIN NA (PORCINE) 5,000 UNITS/ML 1ML VIAL SQ SCH ×3 (06:48→21:17)
[2017-09-05] MEDS: CEFAZOLIN 2 GM/D5W 50 ML IVPB SCH ×3 (06:50→17:02)
[2017-09-05] MEDS: PHENYLEPHRINE HCL 20,000 MCG in SODIUM CHLORIDE 248 ML IVPB SCH (06:51)
[2017-09-05 06:56] LABS: ALBUMIN 1.1 g/dl (3.4-5.0); ANION GAP 10 (8-16); CO2 20 mmol/L (21-32); GLUCOSE,RANDOM 130 mg/dL (74-106); MAGNESIUM 1.9 mg/dL (1.8-2.4)
--- NOTE | 2017-09-05 06:59 | PN ---
Physical Exam: SUBJECTIVE: Patient seen and examined at bedside. sedated and intubated, no acute events over night. OBJECTIVE: Vital Signs Period Temp Pulse Resp BP Sys/Jeff Pulse Ox Last 24 Hr 98.7 F-101.1 F 66-101 23-30 99-130/67-84 100-100 GENERAL: intubated , sedated HEAD: Normal with no signs of trauma. EYES: PERRL, conjunctiva clear. ENT: dry mucous membranes. LUNGS: Intubated B/L coarse crackles, accessory muscle use. HEART: S1, S2 without murmur, rub or gallop. ABDOMEN: Obese,soft, nontender, nondistended, normoactive bowel sounds, no guarding, no rebound, EXTREMITIES: 1+ pitting edema. NEUROLOGICAL: sedated SKIN: Warm, dry, no rashes or lesions noted Laboratory Results - last 24 hr 09/04/17 09/04/17 09/04/17 07:25 08:00 08:00 WBC 14.0 H RBC 3.57 L Hgb 11.2 L Hct 33.9 L MCV 94.7 MCH 31.3 MCHC 33.1 RDW 15.2 Plt Count 326 D MPV 7.8 D Neutrophils % 82.4 Lymphocytes % 7.8 L Monocytes % 8.6 Eosinophils % 0.9 Basophils % 0.3 Puncture Site Left radial ABG pH 7.38 ABG pCO2 at Pt Temp 33.2 L ABG pO2 at Pt Temp 107.0 H D ABG HCO3 19.3 L ABG O2 Sat (Measured) 98.5 ABG O2 Content 14.8 L ABG Base Excess -4.5 L Anoop Test Positive O2 Delivery Device Vent Oxygen Flow Rate 45% Vent Mode A/c Vent Rate 25 Mechanical Rate Yes PEEP 5.0 Pressure Support Vent 450 Sodium Potassium Chloride Carbon Dioxide Anion Gap BUN Creatinine Creat Clearance w eGFR Random Glucose Calcium Phosphorus Magnesium Total Bilirubin AST ALT Alkaline Phosphatase C-Reactive Protein Total Protein Albumin Urine Color Urine Appearance Urine pH Ur Specific [place] Urine Protein Urine Glucose (UA) Urine Ketones Urine Blood Urine Nitrite Urine Bilirubin Urine Urobilinogen Ur Leukocyte Esterase Urine RBC Urine WBC Ur Epithelial Cells Urine Bacteria Hyaline Casts Granular Casts Urine Mucus Random Vancomycin 7.530 09/04/17 09/04/17 09/04/17 08:00 08:00 08:00 WBC RBC Hgb Hct MCV MCH MCHC RDW Plt Count MPV Neutrophils % Lymphocytes % Monocytes % Eosinophils % Basophils % Puncture Site ABG pH ABG pCO2 at Pt Temp ABG pO2 at Pt Temp ABG HCO3 ABG O2 Sat (Measured) ABG O2 Content ABG Base Excess Anoop Test O2 Delivery Device Oxygen Flow Rate Vent Mode Vent Rate Mechanical Rate PEEP Pressure Support Vent Sodium 139 Potassium 3.2 L Chloride 109 H Carbon Dioxide 23 Anion Gap 7 L BUN 26 H Creatinine 1.3 D Creat Clearance w eGFR 55.06 Random Glucose 117 H D Calcium 7.6 L Phosphorus 2.6 Cancelled Magnesium 2.0 Cancelled Total Bilirubin 3.5 H D AST 100 H D ALT 60 Alkaline Phosphatase 186 H D C-Reactive Protein 15.0 H D Total Protein 5.2 L Albumin 1.2 L Urine Color Urine Appearance Urine pH Ur Specific [place] Urine Protein Urine Glucose (UA) Urine Ketones Urine Blood Urine Nitrite Urine Bilirubin Urine Urobilinogen Ur Leukocyte Esterase Urine RBC Urine WBC Ur Epithelial Cells Urine Bacteria Hyaline Casts Granular Casts Urine Mucus Random Vancomycin 09/04/17 09/05/17 09:00 05:10 WBC 8.3 D RBC 3.14 L Hgb 10.0 L D Hct 29.4 L MCV 93.7 MCH 32.0 MCHC 34.1 RDW 15.7 Plt Count 349 MPV 7.9 Neutrophils % No Result Required. Lymphocytes % No Result Required. Monocytes % Eosinophils % Basophils % Puncture Site ABG pH ABG pCO2 at Pt Temp ABG pO2 at Pt Temp ABG HCO3 ABG O2 Sat (Measured) ABG O2 Content ABG Base Excess Anoop Test O2 Delivery Device Oxygen Flow Rate Vent Mode Vent Rate Mechanical Rate PEEP Pressure Support Vent Sodium Potassium Chloride Carbon Dioxide Anion Gap BUN Creatinine Creat Clearance w eGFR Random Glucose Calcium Phosphorus Magnesium Total Bilirubin AST ALT Alkaline Phosphatase C-Reactive Protein Total Protein Albumin Urine Color [place] Urine Appearance Slcloudy Urine pH 5.0 Ur Specific [place] 1.015 Urine Protein Negative Urine Glucose (UA) Negative Urine Ketones Negative Urine Blood 2+ H Urine Nitrite Negative Urine Bilirubin Negative Urine Urobilinogen 2.0 Ur Leukocyte Esterase Negative Urine RBC 40 Urine WBC 16 Ur Epithelial Cells Rare Urine Bacteria Rare Hyaline Casts 1 Granular Casts 3 Urine Mucus Rare Random Vancomycin Active Medications Generic Name Dose Route Start Last Admin Trade Name Freq PRN Reason Stop Dose Admin Bacitracin 1 applic 09/02/17 10:00 09/04/17 11:56 Bacitracin - TP 1 applic DAILY [facility] Administration Folic Acid 1 mg 09/02/17 10:00 09/04/17 11:55 Folic Acid - PO 1 mg DAILY [facility] Administration Heparin Sodium (Porcine) 5,000 unit 09/02/17 06:00 09/05/17 06:48 Heparin - SQ 5,000 unit TID [facility] Administration Famotidine/Sodium Chloride 50 mls @ 100 mls/hr 09/02/17 10:00 09/04/17 21:46 Pepcid 20 Mg Premixed Ivpb - IVPB 100 mls/hr BID [facility] Administration Phenylephrine HCl 20,000 mcg/ 250 mls @ 75 mls/hr 09/02/17 05:17 09/05/17 06:51 Sodium Chloride IVPB Not Given TITR [facility] Protocol 100 MCG/MIN Propofol 100 mls @ 5.269 mls/hr 09/02/17 05:17 09/05/17 02:00 Diprivan - IVPUSH 18.441 mls/hr TITR [facility] Administration Protocol 10 MCG/KG/MIN Cefazolin Sodium/Dextrose 50 mls @ 100 mls/hr 09/04/17 12:30 09/05/17 06:50 Ancef 2 Gm Premixed Ivpb - IVPB 100 mls/hr Q8H-IV [facility] Administration Potassium Chloride/Sodium Chloride 1,000 mls @ 100 mls/hr 09/04/17 14:27 14:45 Ns+20 Meq Kcl - IV 100 mls/hr ASDIR [facility] Administration Ibuprofen 800 mg 09/02/17 05:17 09/05/17 01:40 Caldolor Injection - IVPB 800 mg Q6H PRN Administration FEVER Lorazepam 2 mg 09/02/17 05:17 Ativan Injection - IVPUSH Q2H PRN ANXIETY Multivitamins/Minerals 1 each 09/02/17 10:00 09/04/17 11:55 Theragran-M PO 1 each DAILY [facility] Administration Thiamine HCl 100 mg 09/02/17 10:00 09/04/17 11:55 Vitamin B1 - PO 100 mg DAILY [facility] Administration ASSESSMENT/PLAN: 66 yo man with h/o EtOH abuse, and HTN who presents to the ICU in respiratory distress 2/2 aspiration peritonitis and sepsis. # Sepsis due to aspiration pneumonia vs skin source vs unknown source * Presented to ED tachycardic, tachypnic, and hyperthermic with oral temp 105.3 (08/31) * blood cultures +MSSA bacteremia * Urine Cx pending * Sputum cx contaminated * WBC 11.3 trend to 15.6 * Cont IV NS * D/c'd Zosyn , D/c Vanc 1000 mg , * Switch Nafcillin 2gm q4h per ID * Consider ALISA per ID due to staph bacterimia * Repeat Urine Cx, Blood cx # Acute Etoh withdrawal * Pt. presented to ED with tremors, tachycardic, and tachypneic * H/o failed detox attempts and rehabilitation * Last alcoholic beverage 2 days [employer] * Hold Chlordiazepoxide * Thiamine, Folic acid * CIWA protocol * continue IV NS * Hold Lorazepam * on versed ggt * can bolus versed as needed for worsening tachycardia. # H/o HTN. * Not on medication * EKG with no acute ST- T wave changes * Echo shows preserved LV systolic function,RV systolic function seems diminished,No pericardial effusion,No AR, No MR, No TR * Currently on pressor #Acute transaminitis, improving * likely due to hypotension and ETOH. * Abdominal U/s shows hepatosplenomegaly and fatty infiltration of liver * monitor AST, ALT #ALEXANDRA * Most likely pre-renal * Renal U/s * Trend Cr/BUN * # Aspiration Pneumonia vs aspiration peritonitis * Presented to ED hyperthermic, tachypnic, tachcardic * blood cultures +MSSA bacterimia * D/c'd Zosyn * Cont IV NS * Cont Vanc 1000 mg * IV NS * Wean Propofol gtt # Thrombocytopenia, improved * likely 2/2 to alcohol * + Splenomegaly * Plt 246 today * No signs of active bleeding * repeat CBC # Normocytic Anemia * likely 2/2 Alcohol abuse * H/H 11.5/35.1 * No acute bleeding * transfuse if Hgb< 8 * Monitor CBC # Chronic right subdural hematoma, stable #FEN: * IVF, * Lytes : Hypokalemia- KCl IV, Hyponatremia-resolved * NG tube #PPx: Heparin 5000 U TID, scds #Dispo: Cont ICU Monitoring Visit type - Emergency Visit Emergency Visit: Yes ED Registration Date: 08/31/17 Care time: The patient presented to the Emergency Department on the above date and was hospitalized for further evaluation of their emergent condition. - New Patient This patient is new to me today: No - Critical Care Critical Care patient: Yes Total Critical Care Time (in minutes): 40 Critical Care Statement: The care of this patient involved high complexity decision making to prevent further life threatening deterioration of the patient 's condition and/or to evaluate & treat vital organ system(s) failure or risk of failure.
[2017-09-05 07:00] LABS: ALK PHOS 133 U/L (45-117); BILIRUBIN,TOTAL 1.1 mg/dL (0.2-1.0); CREATININE 1.1 mg/dL (0.7-1.3); PHOSPHOROUS 2.7 mg/dL (2.5-4.9); SGOT/AST 52 U/L (15-37); SGPT/ALT 34 U/L (12-78); TOT PROT 4.7 g/dl (6.4-8.2)
[2017-09-05 07:10] LABS: BASOPHIL 0.7 % (0-2.0); EOSINOPHIL 0.6 % (0-4.5); NEUTROPHILS 76.9 % (42.8-82.8); PLATELET ESTIMATE ADEQUATE (NORMAL)
--- NOTE | 2017-09-05 07:53 | PN ---
Progress Note, Physician Chief Complaint: ID Currently on Cefazolin for MSSA bacteremia with PNA Source most likely secondary skin - Current Medication List Current Medications: Active Medications Bacitracin (Bacitracin -) 1 applic TP DAILY [facility] Last Admin: 09/04/17 11:56 Dose: 1 applic Folic Acid (Folic Acid -) 1 mg PO DAILY [facility] Last Admin: 09/04/17 11:55 Dose: 1 mg Heparin Sodium (Porcine) (Heparin -) 5,000 unit SQ TID [facility] Last Admin: 09/05/17 06:48 Dose: 5,000 unit Famotidine/Sodium Chloride (Pepcid 20 Mg Premixed Ivpb -) 50 mls @ 100 mls/hr IVPB BID [facility] Last Admin: 09/04/17 21:46 Dose: 100 mls/hr Phenylephrine HCl 20,000 mcg/ (Sodium Chloride) 250 mls @ 75 mls/hr IVPB TITR [facility]; 100 MCG/MIN PRN Reason: Protocol Last Admin: 09/05/17 06:51 Dose: Not Given Propofol (Diprivan -) 100 mls @ 5.269 mls/hr IVPUSH TITR [facility]; 10 MCG/KG/MIN PRN Reason: Protocol Last Admin: 09/05/17 02:00 Dose: 18.441 mls/hr Cefazolin Sodium/Dextrose (Ancef 2 Gm Premixed Ivpb -) 50 mls @ 100 mls/hr IVPB Q8H-IV [facility] Last Admin: 09/05/17 06:50 Dose: 100 mls/hr Potassium Chloride/Sodium Chloride (Ns+20 Meq Kcl -) 1,000 mls @ 100 mls/hr IV ASDIR [facility] Last Admin: 09/04/17 14:45 Dose: 100 mls/hr Ibuprofen (Caldolor Injection -) 800 mg IVPB Q6H PRN PRN Reason: FEVER Last Admin: 09/05/17 01:40 Dose: 800 mg Lorazepam (Ativan Injection -) 2 mg IVPUSH Q2H PRN PRN Reason: ANXIETY Multivitamins/Minerals (Theragran-M) 1 each PO DAILY [facility] Last Admin: 09/04/17 11:55 Dose: 1 each Thiamine HCl (Vitamin B1 -) 100 mg PO DAILY [facility] Last Admin: 09/04/17 11:55 Dose: 100 mg - Objective Vital Signs: Vital Signs Temperature 98.7 F 09/05/17 05:00 Pulse Rate 74 09/05/17 06:51 Respiratory Rate 27 H 09/05/17 06:37 Blood Pressure 113/75 09/05/17 06:51 O2 Sat by Pulse Oximetry (%) 100 09/04/17 20:30 Constitutional: Yes: Well Nourished, Other (INtubated) Cardiovascular: Yes: Regular Rate and Rhythm, S1, S2. No: Murmur Respiratory: Yes: WNL, Regular, CTA Bilaterally. No: Rhonchi Gastrointestinal: Yes: Soft. No: Tenderness Edema: Yes Labs: CBC, BMP 09/05/17 05:10 09/05/17 05:10 INR, PTT INR 0.96 (0.82-1.09) 09/01/17 09:05 Problem List - Problems (1) Pneumonia Code(s): J18.9 - PNEUMONIA, UNSPECIFIED ORGANISM Qualifiers: Pneumonia type: aspiration pneumonia (2) Respiratory failure with hypoxia Code(s): J96.91 - RESPIRATORY FAILURE, UNSPECIFIED WITH HYPOXIA Qualifiers: Chronicity: acute Qualified Code(s): J96.01 - Acute respiratory failure with hypoxia; J96.01 - Acute respiratory failure with hypoxia; J96.01 - Acute respiratory failure with hypoxia (3) Staphylococcus aureus bacteremia Code(s): R78.81 - BACTEREMIA Assessment/Plan Microbiology 09/02/17 00:00 Sputum - Endotracheal Suction W/O Vent Gram Stain - Final 09/02/17 00:00 Sputum - Endotracheal Suction W/O Vent Sputum Culture - Final Yeast Like Organism 09/01/17 15:55 Blood - Peripheral Venous Blood Culture - Final Staphylococcus Aureus 09/01/17 15:50 Blood - Peripheral Venous Blood Culture - Final Staphylococcus Aureus 09/01/17 05:00 Blood - Peripheral Venous Blood Culture - Final Staphylococcus Aureus 09/01/17 00:01 Blood - Peripheral Venous Blood Culture - Final Staphylococcus Aureus Laboratory Tests 09/02/17 09/04/17 09/05/17 05:00 08:00 05:10 WBC 8.3 D Hgb 10.0 L D Hct 29.4 L Plt Count 349 Neutrophils % 76.9 Lymphocytes % 9.8 D Monocytes % 12.0 H BUN Creatinine Creat Clearance w eGFR Total Bilirubin AST ALT Alkaline Phosphatase C-Reactive Protein 15.0 H D HIV 1&2 Antibody Screen Negative HIV P24 Antigen Negative 09/05/17 05:10 WBC Hgb Hct Plt Count Neutrophils % Lymphocytes % Monocytes % BUN 25 H Creatinine 1.1 Creat Clearance w eGFR > 60 Total Bilirubin 1.1 H D AST 52 H D ALT 34 D Alkaline Phosphatase 133 H D C-Reactive Protein HIV 1&2 Antibody Screen HIV P24 Antigen Assessment MSSA bacteremia skin source on Cefazolin as he elevated his LFTs on Nafcillin PNA Endocarditis cannot be rule out Alcohol dependency Plan Continue current antibiotics Would advise ALISA if has persistant bacteremia Follow CRP Sputum c/s Esau EMERY
[2017-09-05 08:07] LABS: QUANT MITOGEN VALUE 0.11 IU/mL (.); QUANTIFERON GOLD Indeterminate (Negative)
[2017-09-05 08:50] LABS: ARTERIAL BLD GAS O2 SATURATION 98.2 % (90-98.9); ARTERIAL BLOOD GAS BASE EXCESS -4.5 meq/l (-2-2); ARTERIAL BLOOD GAS PO2 99.1 mmHg (80-100)
[2017-09-05 08:51] LABS: ALLENS TEST POSITIVE; ART PUNCT SITE RIGHT RADIAL; LPM/O2% 40%; MECH. VENT. YES; PT. ON O2? YES; TYPE OF O2 VENT; VENT RATE 25; VT/PRESS 450
[2017-09-05] MEDS ORDERED: MAGNESIUM SULF 50% (8.12 MEQ/2 ML-1 GM VIAL) IVPB ONE (09:00)
[2017-09-05] MEDS: FAMOTIDINE 20 MG/50 ML IVPB 50 ML IVPB SCH ×2 (09:26→21:17)
--- NOTE | 2017-09-05 09:28 | PN ---
Progress Note, Physician History of Present Illness: Sedated on vent, fever spike earlier in AM, weaned off phenylephrine gtt. - Current Medication List Current Medications: Active Medications Bacitracin (Bacitracin -) 1 applic TP DAILY [facility] Last Admin: 09/04/17 11:56 Dose: 1 applic Folic Acid (Folic Acid -) 1 mg PO DAILY [facility] Last Admin: 09/04/17 11:55 Dose: 1 mg Heparin Sodium (Porcine) (Heparin -) 5,000 unit SQ TID [facility] Last Admin: 09/05/17 06:48 Dose: 5,000 unit Famotidine/Sodium Chloride (Pepcid 20 Mg Premixed Ivpb -) 50 mls @ 100 mls/hr IVPB BID [facility] Last Admin: 09/04/17 21:46 Dose: 100 mls/hr Phenylephrine HCl 20,000 mcg/ (Sodium Chloride) 250 mls @ 75 mls/hr IVPB TITR [facility]; 100 MCG/MIN PRN Reason: Protocol Last Admin: 09/05/17 06:51 Dose: Not Given Propofol (Diprivan -) 100 mls @ 5.269 mls/hr IVPUSH TITR [facility]; 10 MCG/KG/MIN PRN Reason: Protocol Last Admin: 09/05/17 02:00 Dose: 18.441 mls/hr Cefazolin Sodium/Dextrose (Ancef 2 Gm Premixed Ivpb -) 50 mls @ 100 mls/hr IVPB Q8H-IV [facility] Last Admin: 09/05/17 06:50 Dose: 100 mls/hr Potassium Chloride/Sodium Chloride (Ns+20 Meq Kcl -) 1,000 mls @ 100 mls/hr IV ASDIR [facility] Last Admin: 09/04/17 14:45 Dose: 100 mls/hr Potassium Phosphate 30 mm/ (Sodium Chloride) 260 mls @ 52 mls/hr IVPB ONCE ONE Stop: 09/05/17 14:59 Ibuprofen (Caldolor Injection -) 800 mg IVPB Q6H PRN PRN Reason: FEVER Last Admin: 09/05/17 01:40 Dose: 800 mg Lorazepam (Ativan Injection -) 2 mg IVPUSH Q2H PRN PRN Reason: ANXIETY Multivitamins/Minerals (Theragran-M) 1 each PO DAILY [facility] Last Admin: 09/04/17 11:55 Dose: 1 each Thiamine HCl (Vitamin B1 -) 100 mg PO DAILY [facility] Last Admin: 09/04/17 11:55 Dose: 100 mg - Objective Vital Signs: Vital Signs Temperature 98.7 F 09/05/17 05:00 Pulse Rate 74 09/05/17 08:00 Respiratory Rate 24 09/05/17 08:00 Blood Pressure 128/80 09/05/17 08:00 O2 Sat by Pulse Oximetry (%) 100 09/04/17 20:30 Constitutional: Yes: Other (Sedated) Cardiovascular: Yes: Regular Rate and Rhythm Respiratory: Yes: Intubated, Mechanically Ventilated, Rhonchi Gastrointestinal: Yes: Normal Bowel Sounds, Soft Edema: Yes Edema: LLE: Trace, RLE: Trace Labs: CBC, BMP 09/05/17 05:10 09/05/17 05:10 INR, PTT INR 0.96 (0.82-1.09) 09/01/17 09:05 - ....Imaging Chest X-ray: Report Reviewed (Rt base ATX) EKG: Report Reviewed (Tele: NSR) Problem List - Problems (1) Hypokalemia Code(s): E87.6 - HYPOKALEMIA (2) Pneumonia Code(s): J18.9 - PNEUMONIA, UNSPECIFIED ORGANISM Qualifiers: Pneumonia type: aspiration pneumonia (3) Respiratory failure with hypoxia Code(s): J96.91 - RESPIRATORY FAILURE, UNSPECIFIED WITH HYPOXIA Qualifiers: Chronicity: acute Qualified Code(s): J96.01 - Acute respiratory failure with hypoxia; J96.01 - Acute respiratory failure with hypoxia; J96.01 - Acute respiratory failure with hypoxia (4) Staphylococcus aureus bacteremia Code(s): R78.81 - BACTEREMIA (5) Withdrawal symptoms, alcohol Code(s): F10.239 - ALCOHOL DEPENDENCE WITH WITHDRAWAL, UNSPECIFIED Qualifiers : Complication of substance-induced condition: uncomplicated Qualified Code(s): F10.230 - Alcohol dependence with withdrawal, uncomplicated; F10.230 - Alcohol dependence with withdrawal, uncomplicated; F10.230 - Alcohol dependence with withdrawal, uncomplicated Assessment/Plan Echo: 09/02/2017 Technical difficult study, prob preserved LV fxn, but can't r/ o RWMA 1. Acute hypoxic respiratory failure 2. Pneumonia, MSSA bacteremia, septic shock r/o endocarditis 3. Alcohol dependence P:1. Follow surveillance cultures to monitor clearance on appropriate abx coverage, NGTD so far. Will consider ALISA if bacteremia persists once hemodynamics stabilize, ideally with vent support 2. Weaned off phenylephrine gtt 3. Enteral feeds, DVT and GI prophylaxis, librium taper, sedation holiday, replete K
[2017-09-05] MEDS: FOLIC ACID 1 MG TABLET (FP) PO SCH (09:29)
[2017-09-05] MEDS: THIAMINE HCL 100 MG TABLET (FP) PO SCH (09:29)
[2017-09-05] MEDS: MULTIVITAMINS THER W-MINERALS COMBO TABLET (FP) PO SCH (09:30)
[2017-09-05] MEDS ORDERED: POTASSIUM PHOSPHATE 30 MM in SODIUM CHLORIDE 250 ML IVPB ONE (10:00)
[2017-09-05] MEDS: FERROUS SO4 325 MG TABLET (FP) PO SCH (12:11)
[2017-09-05] MEDS: BACITRACIN 15 GM TUBE TOPICAL OINTMENT TP SCH (12:11)
[2017-09-05] MEDS: SODIUM CHLORIDE 0.9%/KCL 1,000 ML IV SCH (14:37)
--- NOTE | 2017-09-05 16:10 | PN ---
Physical Exam: SUBJECTIVE: Overnight no acute events. Patient remains intubated and sedated. On AC vent settings FiO2 40/ PEEP 5 / TV 450 / R 25. Recent D/C phenylephrine pressor support. Patient hemodynamically stable. Patient Afebrile. OBJECTIVE: Vital Signs Period Temp Pulse Resp BP Sys/Jeff Pulse Ox Last 24 Hr 98.7 F-101.1 F 72-101 23-30 99-141/67-81 100-100 GENERAL: The patient is intibated and sedated , in no acute distress. NG tube in place and receiving tube feeds. HEAD: Normal with no signs of trauma. EYES: PERRL, extraocular movements intact, sclera anicteric, conjunctiva clear. No ptosis. ENT: Ears normal, nares patent, oropharynx clear without exudates, moist mucous membranes. NECK: Trachea midline, full range of motion, supple. LUNGS: BL coarse breath sounds, clear to auscultation bilaterally, no wheezes, no crackles, no accessory muscle use. HEART: Regular rate and rhythm, S1, S2 without murmur, rub or gallop. ABDOMEN: Soft, nontender, nondistended, normoactive bowel sounds, no guarding, no rebound, no hepatosplenomegaly, no masses. EXTREMITIES: 2+ pulses, warm, well-perfused, no edema. No lesions noted in lower extremities with no evidence of skin breakdown. Laboratory Results - last 24 hr 09/04/17 09/04/17 09/05/17 08:00 09:00 05:10 WBC 8.3 D RBC 3.14 L Hgb 10.0 L D Hct 29.4 L MCV 93.7 MCH 32.0 MCHC 34.1 RDW 15.7 Plt Count 349 MPV 7.9 Neutrophils % 76.9 Lymphocytes % 9.8 D Monocytes % 12.0 H Eosinophils % 0.6 Basophils % 0.7 Platelet Estimate Adequate Puncture Site ABG pH ABG pCO2 at Pt Temp ABG pO2 at Pt Temp ABG HCO3 ABG O2 Sat (Measured) ABG O2 Content ABG Base Excess Anoop Test O2 Delivery Device Oxygen Flow Rate Vent Mode Vent Rate Mechanical Rate PEEP Pressure Support Vent Sodium Potassium Chloride Carbon Dioxide Anion Gap BUN Creatinine Creat Clearance w eGFR Random Glucose Calcium Phosphorus Magnesium Total Bilirubin AST ALT Alkaline Phosphatase C-Reactive Protein 15.0 H D Total Protein Albumin Urine Color [place] Urine Appearance Slcloudy Urine pH 5.0 Ur Specific [place] 1.015 Urine Protein Negative Urine Glucose (UA) Negative Urine Ketones Negative Urine Blood 2+ H Urine Nitrite Negative Urine Bilirubin Negative Urine Urobilinogen 2.0 Ur Leukocyte Esterase Negative Urine RBC 40 Urine WBC 16 Ur Epithelial Cells Rare Urine Bacteria Rare Hyaline Casts 1 Granular Casts 3 Urine Mucus Rare 09/05/17 09/05/17 05:10 08:40 WBC RBC Hgb Hct MCV MCH MCHC RDW Plt Count MPV Neutrophils % Lymphocytes % Monocytes % Eosinophils % Basophils % Platelet Estimate Puncture Site Right radial ABG pH 7.40 ABG pCO2 at Pt Temp 31.4 L ABG pO2 at Pt Temp 99.1 ABG HCO3 19.0 L ABG O2 Sat (Measured) 98.2 ABG O2 Content 14.0 L ABG Base Excess -4.5 L Anoop Test Positive O2 Delivery Device Vent Oxygen Flow Rate 40% Vent Mode A/c Vent Rate 25 Mechanical Rate Yes PEEP 5.0 Pressure Support Vent 450 Sodium 141 Potassium 3.2 L Chloride 111 H Carbon Dioxide 20 L Anion Gap 10 BUN 25 H Creatinine 1.1 Creat Clearance w eGFR > 60 Random Glucose 130 H Calcium 7.0 L Phosphorus 2.7 Magnesium 1.9 Total Bilirubin 1.1 H D AST 52 H D ALT 34 D Alkaline Phosphatase 133 H D C-Reactive Protein Total Protein 4.7 L Albumin 1.1 L Urine Color Urine Appearance Urine pH Ur Specific [place] Urine Protein Urine Glucose (UA) Urine Ketones Urine Blood Urine Nitrite Urine Bilirubin Urine Urobilinogen Ur Leukocyte Esterase Urine RBC Urine WBC Ur Epithelial Cells Urine Bacteria Hyaline Casts Granular Casts Urine Mucus Active Medications Generic Name Dose Route Start Last Admin Trade Name Ramo PRN Reason Stop Dose Admin Bacitracin 1 applic 09/02/17 10:00 09/05/17 12:11 Bacitracin - TP 1 applic DAILY [facility] Administration Ferrous Sulfate 325 mg 09/05/17 12:00 09/05/17 12:11 Feosol - PO 325 mg DAILY [facility] Administration Folic Acid 1 mg 09/02/17 10:00 09/05/17 09:29 Folic Acid - PO 1 mg DAILY [facility] Administration Heparin Sodium (Porcine) 5,000 unit 09/02/17 06:00 09/05/17 14:18 Heparin - SQ 5,000 unit TID [facility] Administration Famotidine/Sodium Chloride 50 mls @ 100 mls/hr 09/02/17 10:00 09/05/17 09:26 Pepcid 20 Mg Premixed Ivpb - IVPB 100 mls/hr BID [facility] Administration Propofol 100 mls @ 5.269 mls/hr 09/02/17 05:17 09/05/17 02:00 Diprivan - IVPUSH 18.441 mls/hr TITR [facility] Administration Protocol 10 MCG/KG/MIN Cefazolin Sodium/Dextrose 50 mls @ 100 mls/hr 09/04/17 12:30 09/05/17 09:26 Ancef 2 Gm Premixed Ivpb - IVPB 100 mls/hr Q8H-IV [facility] Administration Potassium Chloride/Sodium Chloride 1,000 mls @ 100 mls/hr 09/04/17 14:27 14:37 Ns+20 Meq Kcl - IV 100 mls/hr ASDIR [facility] Administration Ibuprofen 800 mg 09/02/17 05:17 09/05/17 14:36 Caldolor Injection - IVPB 800 mg Q6H PRN Administration FEVER Lorazepam 2 mg 09/02/17 05:17 Ativan Injection - IVPUSH Q2H PRN ANXIETY Multivitamins/Minerals 1 each 09/02/17 10:00 09/05/17 09:30 Theragran-M PO 1 each DAILY [facility] Administration Thiamine HCl 100 mg 09/02/17 10:00 09/05/17 09:29 Vitamin B1 - PO 100 mg DAILY [facility] Administration ASSESSMENT/PLAN: 66 yo man with h/o EtOH abuse, and HTN who presents to the ICU in respiratory distress 2/2 aspiration pneumonitis and sepsis. Psych: Alcohol Withdrawal Pt. 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 Not on medication EKG with no acute ST- T wave changes CT chest: emphysematous changes and loss of left lung volume with atelectasis. Echo (09/02) mild mitral annular calcification and decreased RV function. Abesnt pericaridal effusion. Exam limited. Possible vegetation as source of bacteremia. Plan: - Consider ALISA in setting of limited echo and MSSA bacteremia with unidentified source. Pulmonary: Aspiration pneumonitis vs. aspiration pneumonia. s/p intubation following resp. distress Presented to ED (08/31) tachycardic, tachypnic and hyperthermic. Spo2 over 90% CT chest~ chronic volume loss of left lung and atelectasis of left lung with no acute cardiopulm pathology. CXR~ atelectasis at left lung base Plan: - Wean Propofol gtt - Continue Cefazolin - weaning trial followed by extubation GI: U/s depicts hepatosplenomegaly and fatty infiltration of liver hyperbilirubinemia (3.5) 09/04-->1.1 Switced Naficillin to Cefazolin : ALEXANDRA: Most likely prerenal (Resolved) Renal U/s Cr/BUN 1.03/14-->1.1 Plan: - Trend Cr/BUN Infectious Disease: Sepsis: Source unidentified Presented to ED in septic shock with tachycardic, tachypnic, and hyperthermic with oral temp 105.3 (08/31) . SBP <90. Initial blood cultures x 2 + MSSA. Repeat blood cultures negative. D/c'd Vanc, Zosyn Urine Cx Negative Sputum cx contaminated WBC 11.3--> 15.6-->8.3 Switched Nafcillin 2gm q4h to Cefazolin d/t cholestasis. Plan: - Cont IV NS - Consider ALISA for unknown source of initial bacteremia. Heme/Onc: Thrombocytopenia ( stable ) 2/2 to alcohol + Splenomegaly PLT 79 (09/01) --> 349 Plan: - CBC QD FEN: IVF, Lytes PRN, NG tube enteral feeds PPx: Heparin 5000 U TID Dispo: Cont ICU Monitoring Visit type - Emergency Visit Emergency Visit: Yes ED Registration Date: 08/31/17 Care time: The patient presented to the Emergency Department on the above date and was hospitalized for further evaluation of their emergent condition. - New Patient This patient is new to me today: No - Critical Care Critical Care patient: Yes Total Critical Care Time (in minutes): 35 Critical Care Statement: The care of this patient involved high complexity decision making to prevent further life threatening deterioration of the patient 's condition and/or to evaluate & treat vital organ system(s) failure or risk of failure.
--- NOTE | 2017-09-05 16:17 | PN ---
Teaching Attending Note Name of Resident: Feliciano Archuleta ATTENDING PHYSICIAN STATEMENT I saw and evaluated the patient. I reviewed the resident's note and discussed the case with the resident. I agree with the resident's findings and plan as documented. SUBJECTIVE: Patient seen and examined in the ICU. Remains intubated and sedated. No fever. AC Mode of vent. Intake & Output 09/02/17 09/03/17 09/04/17 09/05/17 23:59 23:59 23:59 23:59 Intake Total 5596.9 3815 4209.6 2008.6 Output Total 1000 3701 343 6219 Balance 4596.9 2180 3659.6 608.6 Weight 197 lb 9.6 oz 202 lb 7 oz 207 lb 8 oz 213 lb 6.519 oz Last Vital Signs Temp Pulse Resp BP Pulse Ox 98.7 F 87 30 H 141/81 100 09/05/17 10:00 09/05/17 13:00 09/05/17 14:37 09/05/17 13:00 09/05/17 10:38 Active Medications Bacitracin (Bacitracin -) 1 applic TP DAILY [facility] Last Admin: 09/05/17 12:11 Dose: 1 applic Ferrous Sulfate (Feosol -) 325 mg PO DAILY [facility] Last Admin: 09/05/17 12:11 Dose: 325 mg Folic Acid (Folic Acid -) 1 mg PO DAILY [facility] Last Admin: 09/05/17 09:29 Dose: 1 mg Heparin Sodium (Porcine) (Heparin -) 5,000 unit SQ TID [facility] Last Admin: 09/05/17 14:18 Dose: 5,000 unit Famotidine/Sodium Chloride (Pepcid 20 Mg Premixed Ivpb -) 50 mls @ 100 mls/hr IVPB BID [facility] Last Admin: 09/05/17 09:26 Dose: 100 mls/hr Propofol (Diprivan -) 100 mls @ 5.269 mls/hr IVPUSH TITR [facility]; 10 MCG/KG/MIN PRN Reason: Protocol Last Admin: 09/05/17 02:00 Dose: 18.441 mls/hr Cefazolin Sodium/Dextrose (Ancef 2 Gm Premixed Ivpb -) 50 mls @ 100 mls/hr IVPB Q8H-IV [facility] Last Admin: 09/05/17 09:26 Dose: 100 mls/hr Potassium Chloride/Sodium Chloride (Ns+20 Meq Kcl -) 1,000 mls @ 100 mls/hr IV [facility] Last Admin: 09/05/17 14:37 Dose: 100 mls/hr Ibuprofen (Caldolor Injection -) 800 mg IVPB Q6H PRN PRN Reason: FEVER Last Admin: 09/05/17 14:36 Dose: 800 mg Lorazepam (Ativan Injection -) 2 mg IVPUSH Q2H PRN PRN Reason: ANXIETY Multivitamins/Minerals (Theragran-M) 1 each PO DAILY [facility] Last Admin: 09/05/17 09:30 Dose: 1 each Thiamine HCl (Vitamin B1 -) 100 mg PO DAILY [facility] Last Admin: 09/05/17 09:29 Dose: 100 mg Gen: Intubated and sedated Heart: RRR Lung: scattered rhonchi Abd: soft, nontender Ext: + edema Laboratory Results - last 24 hr 08/31/17 09/04/17 09/04/17 13:05 08:00 09:00 WBC RBC Hgb Hct MCV MCH MCHC RDW Plt Count MPV Neutrophils % Lymphocytes % Monocytes % Eosinophils % Basophils % Platelet Estimate Puncture Site ABG pH ABG pCO2 at Pt Temp ABG pO2 at Pt Temp ABG HCO3 ABG O2 Sat (Measured) ABG O2 Content ABG Base Excess Anoop Test O2 Delivery Device Oxygen Flow Rate Vent Mode Vent Rate Mechanical Rate PEEP Pressure Support Vent Sodium Potassium Chloride Carbon Dioxide Anion Gap BUN Creatinine Creat Clearance w eGFR Random Glucose Calcium Phosphorus Magnesium Total Bilirubin AST ALT Alkaline Phosphatase C-Reactive Protein 15.0 H D Total Protein Albumin Urine Color Brie Urine Appearance Slcloudy Urine pH 5.0 Ur Specific Kim 1.015 Urine Protein Negative Urine Glucose (UA) Negative Urine Ketones Negative Urine Blood 2+ H Urine Nitrite Negative Urine Bilirubin Negative Urine Urobilinogen 2.0 Ur Leukocyte Esterase Negative Urine RBC 40 Urine WBC 16 Ur Epithelial Cells Rare Urine Bacteria Rare Hyaline Casts 1 Granular Casts 3 Urine Mucus Rare TB Test (QFT) Indeterminate 09/05/17 09/05/17 09/05/17 05:10 05:10 08:40 WBC 8.3 D RBC 3.14 L Hgb 10.0 L D Hct 29.4 L MCV 93.7 MCH 32.0 MCHC 34.1 RDW 15.7 Plt Count 349 MPV 7.9 Neutrophils % 76.9 Lymphocytes % 9.8 D Monocytes % 12.0 H Eosinophils % 0.6 Basophils % 0.7 Platelet Estimate Adequate Puncture Site Right radial ABG pH 7.40 ABG pCO2 at Pt Temp 31.4 L ABG pO2 at Pt Temp 99.1 ABG HCO3 19.0 L ABG O2 Sat (Measured) 98.2 ABG O2 Content 14.0 L ABG Base Excess -4.5 L Anoop Test Positive O2 Delivery Device Vent Oxygen Flow Rate 40% Vent Mode A/c Vent Rate 25 Mechanical Rate Yes PEEP 5.0 Pressure Support Vent 450 Sodium 141 Potassium 3.2 L Chloride 111 H Carbon Dioxide 20 L Anion Gap 10 BUN 25 H Creatinine 1.1 Creat Clearance w eGFR > 60 Random Glucose 130 H Calcium 7.0 L Phosphorus 2.7 Magnesium 1.9 Total Bilirubin 1.1 H D AST 52 H D ALT 34 D Alkaline Phosphatase 133 H D C-Reactive Protein Total Protein 4.7 L Albumin 1.1 L Urine Color Urine Appearance Urine pH Ur Specific Kim Urine Protein Urine Glucose (UA) Urine Ketones Urine Blood Urine Nitrite Urine Bilirubin Urine Urobilinogen Ur Leukocyte Esterase Urine RBC Urine WBC Ur Epithelial Cells Urine Bacteria Hyaline Casts Granular Casts Urine Mucus TB Test (QFT) ASSESSMENT AND PLAN: Acute Hypoxic Respiratory Failure Pneumonia MSSA Bacteremia Septic Shock Alcohol Dependence - continue antibiotics per ID - f/u repeat blood cultures - If persistently bacteremic, may need ALISA - taper FiO2 to keep SpO2 >90% - Sedation vacation - spontaneous breathing trials as tolerated - Enteral feeds - DVT/GI prophylaxis Dr Griffin critical care time spent in reviewing chart, evaluating patient and formulating plan 35 min
--- NOTE | 2017-09-05 16:55 | PN ---
Teaching Attending Note Name of Resident: Dominick Kasper ATTENDING PHYSICIAN STATEMENT I saw and evaluated the patient. I reviewed the resident's note and discussed the case with the resident. I agree with the resident's findings and plan as documented. SUBJECTIVE:minimally responsive OBJECTIVE: Last Vital Signs Temp Pulse Resp BP Pulse Ox 98.7 F 93 H 30 H 135/82 100 09/05/17 10:00 09/05/17 16:00 09/05/17 16:00 09/05/17 16:00 09/05/17 10:38 Intake & Output 09/02/17 09/03/17 09/04/17 09/05/17 23:59 23:59 23:59 23:59 Intake Total 5596.9 3815 4209.6 2008.6 Output Total 1000 5510 726 4383 Balance 4596.9 2180 3659.6 608.6 Weight 197 lb 9.6 oz 202 lb 7 oz 207 lb 8 oz 213 lb 6.519 oz General +gag +PERRL, withdraws to pain, breathing over the vent CV S1 S2 RRR no murmur/rub/gallop Lungs coarse breath sounds Abdomen soft NT/ND Extremities 1+ pitting edema ASSESSMENT AND PLAN: 66 yo M with PMH of alcohol abuse, HTN who presented to the ER after being found on the floor. 1. Hypotension- due to sepsis due to Bacteremia and possible aspiration PNA-Tm 101.1. off pressors since last night. repeat BCx are NGTD. on Cefazolin. ALISA on hold at this time. 2. Acute Hypoxic respiratory failure- s/p intubated on 09/02 after admitted due to tachypnea and hypoxic (not documented with low O2 sat but was on steadily increasing oxygen supplementation RA>NC>NRB) now on full vent support. titrate down support as tolerated. sedation vacation currently with minimal responsiveness\. vent management per ICU team 3. Acute transaminitis- likely due to hypotension and ETOH. now improving, cont to monitor 4. Acute ETOH withdrawal- off versed ggt. ativan prn signs of withdrawal. on thiamine/folate/MVI 5. Hypokalemia- KCl IV added to IVF 6. Hyponatremia-resolved 7. Normocytic anemia- slight trend down. iron studies from last admission is noted. signs of iron def anemia and anemia of chronic disease. will start iron supplementation. no signs of obvious bleeding. trend HgB, txn for Hgb <7 8. Thrombocytopenia- Secondary to alcohol, splenomegaly. now resolved. no signs of active bleeding 9. HTN-currently normotensive off pressors. cont to monitor., 10. Chronic right subdural hematoma 11. DVT ppx- hep sq 12. MICU monitoring The care of this patient involved high complexity decision making to prevent further life threatening deterioration of the patient's condition and/or to evaluate & treat vital organ system(s) failure or risk of failure. 42 mins
[2017-09-05] MEDS ORDERED: SODIUM CHLORIDE 0.9%/KCL 1,000 ML IV SCH (20:16)
[2017-09-05 22:28] LABS: ANION GAP 10 (8-16); CALCIUM 7.5 mg/dL (8.5-10.1); CO2 21 mmol/L (21-32); CREATININE 1.2 mg/dL (0.7-1.3); GLUCOSE,RANDOM 128 mg/dL (74-106); MAGNESIUM 2.2 mg/dL (1.8-2.4); PHOSPHOROUS 4.2 mg/dL (2.5-4.9)
[2017-09-06] MEDS: CEFAZOLIN 2 GM/D5W 50 ML IVPB SCH ×3 (03:00→17:38)
[2017-09-06] MEDS ORDERED: POTASSIUM CHLORIDE ORAL LIQUID 20 MEQ/15 ML NGT ONE (05:45)
[2017-09-06] MEDS ORDERED: FUROSEMIDE 40 MG/4 ML INJECTABLE VIAL IVPUSH ONE ×2 (05:47→12:15)
[2017-09-06 05:58] LABS: BASOPHIL 0.1 % (0-2.0); EOSINOPHIL 0.7 % (0-4.5); MCH 31.7 pg (25.7-33.7); MCHC 33.8 g/dl (32.0-35.9); MEAN CELL VOLUME 93.8 fl (80-96); MEAN PLT VOLUME 7.4 fl (7.5-11.1); NEUTROPHILS 82.7 % (42.8-82.8); PLATELET COUNT 339 K/MM3 (134-434); RDW 15.8 % (11.9-15.9); WHITE BLOOD COUNT 8.7 K/mm3 (4.0-10.0)
[2017-09-06] MEDS: HEPARIN NA (PORCINE) 5,000 UNITS/ML 1ML VIAL SQ SCH ×3 (06:16→22:03)
[2017-09-06] MEDS ORDERED: PT OWN MED DRAWER 7, Y5N ONE (06:26)
[2017-09-06 06:55] LABS: ALBUMIN 1.1 g/dl (3.4-5.0); ALK PHOS 121 U/L (45-117); ANION GAP 10 (8-16); BILIRUBIN,TOTAL 0.8 mg/dL (0.2-1.0); CALCIUM 7.1 mg/dL (8.5-10.1); CO2 20 mmol/L (21-32); CREATININE 1.2 mg/dL (0.7-1.3); GLUCOSE,RANDOM 97 mg/dL (74-106); MAGNESIUM 2.1 mg/dL (1.8-2.4); PHOSPHOROUS 3.8 mg/dL (2.5-4.9); SGOT/AST 40 U/L (15-37); SGPT/ALT 16 U/L (12-78)
[2017-09-06 07:47] LABS: ARTERIAL BLD GAS O2 SATURATION 97.7 % (90-98.9); ARTERIAL BLOOD GAS BASE EXCESS -4.1 meq/l (-2-2); ARTERIAL BLOOD GAS PO2 90.7 mmHg (80-100); ARTERIAL BLOOD GAS pH 7.43 (7.35-7.45)
[2017-09-06 07:48] LABS: ALLENS TEST POSITIVE; ART PUNCT SITE LEFT RADIAL; ARTERIAL BLOOD GAS HCO3 18.9 meq/L (22-26)
[2017-09-06 07:49] LABS: LPM/O2% 40%; MECH. VENT. ESPRIT; PT. ON O2? YES; TYPE OF O2 MEC.VENT
[2017-09-06] MEDS ORDERED: POTASSIUM CHLORIDE ORAL LIQUID 20 MEQ/15 ML PO ONE (07:49)
[2017-09-06 07:50] LABS: VENT RATE 25; VT/PRESS 450
[2017-09-06] MEDS ORDERED: BISACODYL 10 MG SUPP.RECT RC ONE (09:00)
[2017-09-06] MEDS: THIAMINE HCL 100 MG TABLET (FP) PO SCH (09:03)
[2017-09-06] MEDS: MULTIVITAMINS THER W-MINERALS COMBO TABLET (FP) PO SCH (09:03)
[2017-09-06] MEDS: FAMOTIDINE 20 MG/50 ML IVPB 50 ML IVPB SCH ×2 (09:03→22:03)
[2017-09-06] MEDS: FOLIC ACID 1 MG TABLET (FP) PO SCH (09:04)
[2017-09-06] MEDS: FERROUS SO4 325 MG TABLET (FP) PO SCH (09:04)
[2017-09-06] MEDS: BACITRACIN 15 GM TUBE TOPICAL OINTMENT TP SCH (09:04)
--- NOTE | 2017-09-06 09:16 | PN ---
Progress Note (short form) - Note Progress Note: remains intubated and sedated Vital Signs Period Temp Pulse Resp BP Sys/Jeff Pulse Ox Last 24 Hr 98.7 F-101.2 F 76-95 24-30 112-148/66-93 100-100 cor-rrr lungs decreased bs at bases abd soft,nt ext no edema CBC, BMP 09/06/17 05:00 09/06/17 05:00 Microbiology 09/04/17 08:15 Blood - Peripheral Venous Blood Culture - Preliminary NO GROWTH OBTAINED AFTER 48 HOURS, INCUBATION TO CONTINUE FOR 3 DAYS. 09/04/17 08:00 Blood - Peripheral Venous Blood Culture - Preliminary NO GROWTH OBTAINED AFTER 48 HOURS, INCUBATION TO CONTINUE FOR 3 DAYS. 09/02/17 00:00 Sputum - Endotracheal Suction W/O Vent Gram Stain - Final 09/02/17 00:00 Sputum - Endotracheal Suction W/O Vent Sputum Culture - Final Yeast Like Organism 09/03/17 12:15 Urine - Urine - Catheterized Urine Culture - Final NO GROWTH OBTAINED 09/01/17 05:00 Blood - Peripheral Venous Blood Culture - Final Staphylococcus Aureus 09/01/17 00:01 Blood - Peripheral Venous Blood Culture - Final Staphylococcus Aureus 09/01/17 15:50 Blood - Peripheral Venous Blood Culture - Final Staphylococcus Aureus 09/01/17 15:55 Blood - Peripheral Venous Blood Culture - Final Staphylococcus Aureus 08/31/17 23:22 Urine - Urine Clean Catch Urine Culture - Final Contaminated: Please Repeat a/p MSSA bacteremia Pneumonia blood cultures 09/04 negative will repeat continue cefazolin resp failure- weaning per pulmonary/ICU f/u crp
--- NOTE | 2017-09-06 10:50 | PN ---
Progress Note, Physician History of Present Illness: Remains on vent off sedation, low grade fever, hemodynamically stable. - Current Medication List Current Medications: Active Medications Bacitracin (Bacitracin -) 1 applic TP DAILY [facility] Last Admin: 09/06/17 09:04 Dose: 1 applic Ferrous Sulfate (Feosol -) 325 mg PO DAILY [facility] Last Admin: 09/06/17 09:04 Dose: 325 mg Folic Acid (Folic Acid -) 1 mg PO DAILY [facility] Last Admin: 09/06/17 09:04 Dose: 1 mg Heparin Sodium (Porcine) (Heparin -) 5,000 unit SQ TID [facility] Last Admin: 09/06/17 06:16 Dose: 5,000 unit Famotidine/Sodium Chloride (Pepcid 20 Mg Premixed Ivpb -) 50 mls @ 100 mls/hr IVPB BID [facility] Last Admin: 09/06/17 09:03 Dose: 100 mls/hr Propofol (Diprivan -) 100 mls @ 5.269 mls/hr IVPUSH TITR [facility]; 10 MCG/KG/MIN PRN Reason: Protocol Last Admin: 09/05/17 21:00 Dose: 15.807 mls/hr Cefazolin Sodium/Dextrose (Ancef 2 Gm Premixed Ivpb -) 50 mls @ 100 mls/hr IVPB Q8H-IV [facility] Last Admin: 09/06/17 09:03 Dose: 100 mls/hr Ibuprofen (Caldolor Injection -) 800 mg IVPB Q6H PRN PRN Reason: FEVER Last Admin: 09/05/17 21:41 Dose: 800 mg Lorazepam (Ativan Injection -) 2 mg IVPUSH Q2H PRN PRN Reason: ANXIETY Multivitamins/Minerals (Theragran-M) 1 each PO DAILY [facility] Last Admin: 09/06/17 09:03 Dose: 1 each Thiamine HCl (Vitamin B1 -) 100 mg PO DAILY [facility] Last Admin: 09/06/17 09:03 Dose: 100 mg - Objective Vital Signs: Vital Signs Temperature 100.8 F H 09/06/17 06:00 Pulse Rate 104 H 09/06/17 09:25 Respiratory Rate 35 H 09/06/17 09:25 Blood Pressure 137/80 09/06/17 06:00 O2 Sat by Pulse Oximetry (%) 100 09/06/17 10:35 Cardiovascular: Yes: Regular Rate and Rhythm Respiratory: Yes: Intubated, Mechanically Ventilated, Rhonchi Gastrointestinal: Yes: Normal Bowel Sounds, Soft Edema: No Labs: CBC, BMP 09/06/17 05:00 09/06/17 05:00 INR, PTT INR 0.96 (0.82-1.09) 09/01/17 09:05 - ....Imaging Chest X-ray: Report Reviewed (Bilateral effusions, compressive ATX) EKG: Report Reviewed (Tele: SR) Problem List - Problems (1) Hypokalemia Code(s): E87.6 - HYPOKALEMIA (2) Pneumonia Code(s): J18.9 - PNEUMONIA, UNSPECIFIED ORGANISM Qualifiers: Pneumonia type: aspiration pneumonia (3) Respiratory failure with hypoxia Code(s): J96.91 - RESPIRATORY FAILURE, UNSPECIFIED WITH HYPOXIA Qualifiers: Chronicity: acute Qualified Code(s): J96.01 - Acute respiratory failure with hypoxia; J96.01 - Acute respiratory failure with hypoxia; J96.01 - Acute respiratory failure with hypoxia (4) Staphylococcus aureus bacteremia Code(s): R78.81 - BACTEREMIA (5) Withdrawal symptoms, alcohol Code(s): F10.239 - ALCOHOL DEPENDENCE WITH WITHDRAWAL, UNSPECIFIED Qualifiers : Complication of substance-induced condition: uncomplicated Qualified Code(s): F10.230 - Alcohol dependence with withdrawal, uncomplicated; F10.230 - Alcohol dependence with withdrawal, uncomplicated; F10.230 - Alcohol dependence with withdrawal, uncomplicated Assessment/Plan Echo: 09/02/2017 Technical difficult study, prob preserved LV fxn, but can't r/ o RWMA 1. Acute hypoxic respiratory failure 2. Pneumonia, MSSA bacteremia, septic shock r/o endocarditis 3. Alcohol dependence P:1. Surveillance cultures are NGTD thus far. Will consider ALISA if bacteremia persists, ideally with vent support 2. Remains off phenylephrine gtt 3. Enteral feeds, DVT and GI prophylaxis, librium taper, sedation holiday, vent wean as tolerated
--- NOTE | 2017-09-06 11:30 | PN ---
Teaching Attending Note Name of Resident: Feliciano Archuleta ATTENDING PHYSICIAN STATEMENT I saw and evaluated the patient. I reviewed the resident's note and discussed the case with the resident. I agree with the resident's findings and plan as documented. SUBJECTIVE: Patient seen and examined in the ICU. Remains intubated and sedated. Low grade temps persist. Off pressors. AC Mode of vent. Intake & Output 09/03/17 09/04/17 09/05/17 09/06/17 23:59 23:59 23:59 23:59 Intake Total 3815 4209.6 4553.4 1260 Output Total 6599 482 5999 360 Balance 2180 3659.6 3153.4 900 Weight 202 lb 7 oz 207 lb 8 oz 213 lb 6.519 oz 217 lb 9.54 oz Last Vital Signs Temp Pulse Resp BP Pulse Ox 100.8 F H 104 H 35 H 137/80 100 09/06/17 06:00 09/06/17 09:25 09/06/17 09:25 09/06/17 06:00 09/06/17 10:35 Active Medications Bacitracin (Bacitracin -) 1 applic TP DAILY [facility] Last Admin: 09/06/17 09:04 Dose: 1 applic Ferrous Sulfate (Feosol -) 325 mg PO DAILY [facility] Last Admin: 09/06/17 09:04 Dose: 325 mg Folic Acid (Folic Acid -) 1 mg PO DAILY [facility] Last Admin: 09/06/17 09:04 Dose: 1 mg Furosemide (Lasix Injection -) 20 mg IVPUSH ONCE ONE Stop: 09/06/17 11:17 Heparin Sodium (Porcine) (Heparin -) 5,000 unit SQ TID [facility] Last Admin: 09/06/17 06:16 Dose: 5,000 unit Famotidine/Sodium Chloride (Pepcid 20 Mg Premixed Ivpb -) 50 mls @ 100 mls/hr IVPB BID [facility] Last Admin: 09/06/17 09:03 Dose: 100 mls/hr Propofol (Diprivan -) 100 mls @ 5.269 mls/hr IVPUSH TITR [facility]; 10 MCG/KG/MIN PRN Reason: Protocol Last Admin: 09/05/17 21:00 Dose: 15.807 mls/hr Cefazolin Sodium/Dextrose (Ancef 2 Gm Premixed Ivpb -) 50 mls @ 100 mls/hr IVPB Q8H-IV [facility] Last Admin: 09/06/17 09:03 Dose: 100 mls/hr Ibuprofen (Caldolor Injection -) 800 mg IVPB Q6H PRN PRN Reason: FEVER Last Admin: 09/05/17 21:41 Dose: 800 mg Lorazepam (Ativan Injection -) 2 mg IVPUSH Q2H PRN PRN Reason: ANXIETY Multivitamins/Minerals (Theragran-M) 1 each PO DAILY [facility] Last Admin: 09/06/17 09:03 Dose: 1 each Thiamine HCl (Vitamin B1 -) 100 mg PO DAILY [facility] Last Admin: 09/06/17 09:03 Dose: 100 mg Gen: Intubated and sedated Heart: RRR Lung: scattered rhonchi Abd: soft, nontender Ext: + edema Laboratory Results - last 24 hr 08/31/17 09/05/17 09/06/17 13:05 21:30 05:00 WBC 8.7 RBC 3.10 L Hgb 9.8 L Hct 29.1 L MCV 93.8 MCH 31.7 MCHC 33.8 RDW 15.8 Plt Count 339 MPV 7.4 L Neutrophils % 82.7 Lymphocytes % 8.3 Monocytes % 8.2 Eosinophils % 0.7 Basophils % 0.1 Anticoagulation Therapy Puncture Site ABG pH ABG pCO2 at Pt Temp ABG pO2 at Pt Temp ABG HCO3 ABG O2 Sat (Measured) ABG O2 Content ABG Base Excess Anoop Test O2 Delivery Device Oxygen Flow Rate Vent Mode Vent Rate Mechanical Rate PEEP Pressure Support Vent Sodium 141 Potassium 3.5 Chloride 110 H Carbon Dioxide 21 Anion Gap 10 BUN 24 H Creatinine 1.2 Creat Clearance w eGFR Random Glucose 128 H Calcium 7.5 L Phosphorus 4.2 D Magnesium 2.2 Total Bilirubin AST ALT Alkaline Phosphatase Total Protein Albumin TB Test (QFT) Indeterminate 09/06/17 09/06/17 05:00 07:35 WBC RBC Hgb Hct MCV MCH MCHC RDW Plt Count MPV Neutrophils % Lymphocytes % Monocytes % Eosinophils % Basophils % Anticoagulation Therapy Y Puncture Site Left radial ABG pH 7.43 ABG pCO2 at Pt Temp 29.1 L ABG pO2 at Pt Temp 90.7 ABG HCO3 18.9 L ABG O2 Sat (Measured) 97.7 ABG O2 Content 14.1 L ABG Base Excess -4.1 L Anoop Test Positive O2 Delivery Device Mec.vent Oxygen Flow Rate 40% Vent Mode A/c Vent Rate 25 Mechanical Rate Esprit PEEP 5.0 Pressure Support Vent 450 Sodium 143 Potassium 3.6 Chloride 113 H Carbon Dioxide 20 L Anion Gap 10 BUN 23 H Creatinine 1.2 Creat Clearance w eGFR > 60 Random Glucose 97 D Calcium 7.1 L Phosphorus 3.8 Magnesium 2.1 Total Bilirubin 0.8 D AST 40 H D ALT 16 D Alkaline Phosphatase 121 H Total Protein 5.0 L Albumin 1.1 L TB Test (QFT) ASSESSMENT AND PLAN: Acute Hypoxic Respiratory Failure Pneumonia MSSA Bacteremia Septic Shock Alcohol Dependence - ABX per ID - taper FiO2 to keep SpO2 >90% - Sedation vacation - spontaneous breathing trials as tolerated with hopes of extubation today/ tomorrow - Enteral feeds - DVT/GI prophylaxis - D/C IVF - Lasix Dr Griffin Critical care time spent in reviewing chart, evaluating patient and formulating plan 35 min
--- NOTE | 2017-09-06 11:52 | PN ---
Physical Exam: SUBJECTIVE: Patient seen and examined sedated and intubated. had a fever of 102 over night and one episode of diarrhea this morning. OBJECTIVE: Vital Signs Period Temp Pulse Resp BP Sys/Jeff Pulse Ox Last 24 Hr 100.1 F-101.2 F 77-104 24-37 112-148/66-93 100-100 GENERAL: intubated , sedated HEAD: Normal with no signs of trauma. EYES: conjunctiva clear. ENT: dry mucous membranes. LUNGS: Intubated B/L coarse crackles, accessory muscle use. HEART: S1, S2 without murmur, rub or gallop. ABDOMEN: Obese,soft, nontender, nondistended, normoactive bowel sounds, no guarding, no rebound tenderness, EXTREMITIES: 1+ pitting edema. NEUROLOGICAL: sedated SKIN: Warm, dry, no rashes or lesions noted Laboratory Results - last 24 hr 09/05/17 09/06/17 09/06/17 21:30 05:00 05:00 WBC 8.7 RBC 3.10 L Hgb 9.8 L Hct 29.1 L MCV 93.8 MCH 31.7 MCHC 33.8 RDW 15.8 Plt Count 339 MPV 7.4 L Neutrophils % 82.7 Lymphocytes % 8.3 Monocytes % 8.2 Eosinophils % 0.7 Basophils % 0.1 Anticoagulation Therapy Puncture Site ABG pH ABG pCO2 at Pt Temp ABG pO2 at Pt Temp ABG HCO3 ABG O2 Sat (Measured) ABG O2 Content ABG Base Excess Anoop Test O2 Delivery Device Oxygen Flow Rate Vent Mode Vent Rate Mechanical Rate PEEP Pressure Support Vent Sodium 141 143 Potassium 3.5 3.6 Chloride 110 H 113 H Carbon Dioxide 21 20 L Anion Gap 10 10 BUN 24 H 23 H Creatinine 1.2 1.2 Creat Clearance w eGFR > 60 Random Glucose 128 H 97 D Calcium 7.5 L 7.1 L Phosphorus 4.2 D 3.8 Magnesium 2.2 2.1 Total Bilirubin 0.8 D AST 40 H D ALT 16 D Alkaline Phosphatase 121 H Total Protein 5.0 L Albumin 1.1 L 09/06/17 07:35 WBC RBC Hgb Hct MCV MCH MCHC RDW Plt Count MPV Neutrophils % Lymphocytes % Monocytes % Eosinophils % Basophils % Anticoagulation Therapy Y Puncture Site Left radial ABG pH 7.43 ABG pCO2 at Pt Temp 29.1 L ABG pO2 at Pt Temp 90.7 ABG HCO3 18.9 L ABG O2 Sat (Measured) 97.7 ABG O2 Content 14.1 L ABG Base Excess -4.1 L Anoop Test Positive O2 Delivery Device Mec.vent Oxygen Flow Rate 40% Vent Mode A/c Vent Rate 25 Mechanical Rate Esprit PEEP 5.0 Pressure Support Vent 450 Sodium Potassium Chloride Carbon Dioxide Anion Gap BUN Creatinine Creat Clearance w eGFR Random Glucose Calcium Phosphorus Magnesium Total Bilirubin AST ALT Alkaline Phosphatase Total Protein Albumin Active Medications Generic Name Dose Route Start Last Admin Trade Name Freq PRN Reason Stop Dose Admin Bacitracin 1 applic 09/02/17 10:00 09/06/17 09:04 Bacitracin - TP 1 applic DAILY [facility] Administration Ferrous Sulfate 325 mg 09/05/17 12:00 09/06/17 09:04 Feosol - PO 325 mg DAILY [facility] Administration Folic Acid 1 mg 09/02/17 10:00 09/06/17 09:04 Folic Acid - PO 1 mg DAILY [facility] Administration Furosemide 20 mg 09/06/17 12:15 09/06/17 11:45 Lasix Injection - IVPUSH 09/06/17 12:16 20 mg ONCE ONE Administration Heparin Sodium (Porcine) 5,000 unit 09/02/17 06:00 09/06/17 06:16 Heparin - SQ 5,000 unit TID [facility] Administration Famotidine/Sodium Chloride 50 mls @ 100 mls/hr 09/02/17 10:00 09/06/17 09:03 Pepcid 20 Mg Premixed Ivpb - IVPB 100 mls/hr BID [facility] Administration Propofol 100 mls @ 5.269 mls/hr 09/02/17 05:17 09/05/17 21:00 Diprivan - IVPUSH 15.807 mls/hr TITR [facility] Administration Protocol 10 MCG/KG/MIN Cefazolin Sodium/Dextrose 50 mls @ 100 mls/hr 09/04/17 12:30 09/06/17 09:03 Ancef 2 Gm Premixed Ivpb - IVPB 100 mls/hr Q8H-IV [facility] Administration Ibuprofen 800 mg 09/05/17 21:12 09/05/17 21:41 Caldolor Injection - IVPB 800 mg Q6H PRN Administration FEVER Lorazepam 2 mg 09/02/17 05:17 Ativan Injection - IVPUSH Q2H PRN ANXIETY Multivitamins/Minerals 1 each 09/02/17 10:00 09/06/17 09:03 Theragran-M PO 1 each DAILY [facility] Administration Thiamine HCl 100 mg 09/02/17 10:00 09/06/17 09:03 Vitamin B1 - PO 100 mg DAILY [facility] Administration CBC, BMP 09/06/17 05:00 09/06/17 05:00 ASSESSMENT/PLAN: 66 yo man with h/o EtOH abuse, and HTN who presents to the ICU in respiratory distress 2/2 aspiration peritonitis and sepsis. # Sepsis due to MSSA bacterimia * Presented to ED tachycardic, tachypnic, and hyperthermic with oral temp 105.3 (08/31) * blood cultures +MSSA bacteremia * Urine Cx pending * Sputum cx contaminated * WBC 11.3 trend to 15.6 * DC IV NS * D/c'd Zosyn , D/c Vanc 1000 mg , * Switch to Nafcillin 2gm q4h per ID day 3 * Consider ALISA per ID due to staph bacterimia * Repeat Urine Cx, Blood cx * episode of diarrhea and C.diff toxin and assay was sent # Acute Etoh withdrawal * Pt. presented to ED with tremors, tachycardic, and tachypneic * H/o failed detox attempts and rehabilitation * Last alcoholic beverage 2 days [employer] * Hold Chlordiazepoxide * Thiamine, Folic acid * CIWA protocol * continue IV NS * Hold Lorazepam * on versed ggt * can bolus versed as needed for worsening tachycardia. # H/o HTN. * Not on medication * EKG with no acute ST- T wave changes * Echo shows preserved LV systolic function,RV systolic function seems diminished,No pericardial effusion,No AR, No MR, No TR * Currently on pressor #Acute transaminitis, improving * likely due to hypotension and ETOH. * Abdominal U/s shows hepatosplenomegaly and fatty infiltration of liver * monitor AST, ALT #ALEXANDRA * Most likely pre-renal * Renal U/s * Trend Cr/BUN * # Aspiration Pneumonia vs aspiration peritonitis * Presented to ED hyperthermic, tachypnic, tachcardic * blood cultures +MSSA bacterimia * D/c'd Zosyn * Cont IV NS * Cont Vanc 1000 mg * IV NS * Wean Propofol gtt # Thrombocytopenia, improved * likely 2/2 to alcohol * + Splenomegaly * Plt 246 today * No signs of active bleeding * repeat CBC # Normocytic Anemia * likely 2/2 Alcohol abuse * H/H 9.8/29.1 trending down slowly * No signs of acute bleeding * transfuse if Hgb< 8 * Monitor CBC # Chronic right subdural hematoma, stable #FEN: * IVF, * Lytes : Hypokalemia- KCl IV, Hyponatremia-resolved * NG tube #PPx: Heparin 5000 U TID, scds #Dispo: Cont ICU Monitoring Visit type - Emergency Visit Emergency Visit: Yes ED Registration Date: 08/31/17 Care time: The patient presented to the Emergency Department on the above date and was hospitalized for further evaluation of their emergent condition. - New Patient This patient is new to me today: No - Critical Care Critical Care patient: Yes Total Critical Care Time (in minutes): 40 Critical Care Statement: The care of this patient involved high complexity decision making to prevent further life threatening deterioration of the patient 's condition and/or to evaluate & treat vital organ system(s) failure or risk of failure.
--- NOTE | 2017-09-06 12:14 | PN ---
Physical Exam: SUBJECTIVE: Overnight pt. with s/s of fluid overload vs. third spacing. Given 20 mg IV Fureosomide and IVF decreased from 100-75 ml/hr. Patient remains intubated and sedated. On AC vent settings FiO2 40/ PEEP 5 / TV 450 / R 25. . Patient hemodynamically stable. Patient Febrile at 100.8. OBJECTIVE: Vital Signs Period Temp Pulse Resp BP Sys/Jeff Pulse Ox Last 24 Hr 100.1 F-101.2 F 77-113 22-37 112-183/66-93 100-100 GENERAL: The patient is intubated and sedated , in no acute distress. NG tube in place and receiving tube feeds. HEAD: Normal with no signs of trauma. EYES: PERRL, extraocular movements intact, sclera anicteric, conjunctiva clear. No ptosis. ENT: Ears normal, nares patent, oropharynx clear without exudates, moist mucous membranes. NECK: Trachea midline, full range of motion, supple. LUNGS: BL coarse breath sounds, Decreased lung sounds at bases. No wheezes, no crackles, no accessory muscle use. HEART: Regular rate and rhythm, S1, S2 without murmur, rub or gallop. ABDOMEN: Soft, nontender, nondistended, normoactive bowel sounds, no guarding, no rebound, no hepatosplenomegaly, no masses. EXTREMITIES: 2+ pulses, warm, well-perfused, no edema. No lesions noted in lower extremities with no evidence of skin breakdown. Laboratory Results - last 24 hr 09/05/17 09/06/17 09/06/17 21:30 05:00 05:00 WBC 8.7 RBC 3.10 L Hgb 9.8 L Hct 29.1 L MCV 93.8 MCH 31.7 MCHC 33.8 RDW 15.8 Plt Count 339 MPV 7.4 L Neutrophils % 82.7 Lymphocytes % 8.3 Monocytes % 8.2 Eosinophils % 0.7 Basophils % 0.1 Anticoagulation Therapy Puncture Site ABG pH ABG pCO2 at Pt Temp ABG pO2 at Pt Temp ABG HCO3 ABG O2 Sat (Measured) ABG O2 Content ABG Base Excess Anoop Test O2 Delivery Device Oxygen Flow Rate Vent Mode Vent Rate Mechanical Rate PEEP Pressure Support Vent Sodium 141 143 Potassium 3.5 3.6 Chloride 110 H 113 H Carbon Dioxide 21 20 L Anion Gap 10 10 BUN 24 H 23 H Creatinine 1.2 1.2 Creat Clearance w eGFR > 60 Random Glucose 128 H 97 D Calcium 7.5 L 7.1 L Phosphorus 4.2 D 3.8 Magnesium 2.2 2.1 Total Bilirubin 0.8 D AST 40 H D ALT 16 D Alkaline Phosphatase 121 H Total Protein 5.0 L Albumin 1.1 L 09/06/17 07:35 WBC RBC Hgb Hct MCV MCH MCHC RDW Plt Count MPV Neutrophils % Lymphocytes % Monocytes % Eosinophils % Basophils % Anticoagulation Therapy Y Puncture Site Left radial ABG pH 7.43 ABG pCO2 at Pt Temp 29.1 L ABG pO2 at Pt Temp 90.7 ABG HCO3 18.9 L ABG O2 Sat (Measured) 97.7 ABG O2 Content 14.1 L ABG Base Excess -4.1 L Anoop Test Positive O2 Delivery Device Mec.vent Oxygen Flow Rate 40% Vent Mode A/c Vent Rate 25 Mechanical Rate Esprit PEEP 5.0 Pressure Support Vent 450 Sodium Potassium Chloride Carbon Dioxide Anion Gap BUN Creatinine Creat Clearance w eGFR Random Glucose Calcium Phosphorus Magnesium Total Bilirubin AST ALT Alkaline Phosphatase Total Protein Albumin Active Medications Generic Name Dose Route Start Last Admin Trade Name Freq PRN Reason Stop Dose Admin Bacitracin 1 applic 09/02/17 10:00 09/06/17 09:04 Bacitracin - TP 1 applic DAILY KINGS Administration Ferrous Sulfate 325 mg 09/05/17 12:00 09/06/17 09:04 Feosol - PO 325 mg DAILY KINGS Administration Folic Acid 1 mg 09/02/17 10:00 09/06/17 09:04 Folic Acid - PO 1 mg DAILY KINGS Administration Furosemide 20 mg 09/06/17 12:15 09/06/17 11:45 Lasix Injection - IVPUSH 09/06/17 12:16 20 mg ONCE ONE Administration Heparin Sodium (Porcine) 5,000 unit 09/02/17 06:00 09/06/17 06:16 Heparin - SQ 5,000 unit TID KINGS Administration Famotidine/Sodium Chloride 50 mls @ 100 mls/hr 09/02/17 10:00 09/06/17 09:03 Pepcid 20 Mg Premixed Ivpb - IVPB 100 mls/hr BID KINGS Administration Propofol 100 mls @ 5.269 mls/hr 09/02/17 05:17 09/05/17 21:00 Diprivan - IVPUSH 15.807 mls/hr TITR KINGS Administration Protocol 10 MCG/KG/MIN Cefazolin Sodium/Dextrose 50 mls @ 100 mls/hr 09/04/17 12:30 09/06/17 09:03 Ancef 2 Gm Premixed Ivpb - IVPB 100 mls/hr Q8H-IV KINGS Administration Ibuprofen 800 mg 09/05/17 21:12 09/05/17 21:41 Caldolor Injection - IVPB 800 mg Q6H PRN Administration FEVER Lorazepam 2 mg 09/02/17 05:17 Ativan Injection - IVPUSH Q2H PRN ANXIETY Multivitamins/Minerals 1 each 09/02/17 10:00 09/06/17 09:03 Theragran-M PO 1 each DAILY KINGS Administration Thiamine HCl 100 mg 09/02/17 10:00 09/06/17 09:03 Vitamin B1 - PO 100 mg DAILY KINGS Administration ASSESSMENT/PLAN: 66 yo man with h/o EtOH abuse, and HTN who presents to the ICU in respiratory distress 2/2 aspiration pneumonitis and sepsis. Psych: Alcohol Withdrawal Pt. 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 Not on medication EKG with no acute ST- T wave changes CT chest: emphysematous changes and loss of left lung volume with atelectasis. Echo (09/02) mild mitral annular calcification and decreased RV function. Absent pericardial effusion. Exam limited. Possible vegetation as source of bacteremia. Plan: - Consider ALISA in setting of limited echo and MSSA bacteremia with unidentified source. Pulmonary: Aspiration pneumonitis vs. aspiration pneumonia. s/p intubation following resp. distress Presented to ED (08/31) tachycardic, tachypnic and hyperthermic. Spo2 over 90% CT chest~ chronic volume loss of left lung and atelectasis of left lung with no acute cardiopulm pathology. CXR~ atelectasis at left lung base This AM (09/06) Patient presents with s/s of fluid overload vs. third spacing. Plan: - Wean Propofol gtt - weaning trial followed by extubation preferably today or tomorrow - Fureosomide 20 mg IV x 2 - Continue Cefazolin GI: U/s depicts hepatosplenomegaly and fatty infiltration of liver hyperbilirubinemia (3.5) 09/04-->1.1 Switced Naficillin to Cefazolin : ALEXANDRA: Most likely prerenal (Resolved) Renal U/s Cr/BUN 1.4-->1.1 (09/05) -->1.2 Plan: - Trend Cr/BUN Infectious Disease: Sepsis: Source unidentified Presented to ED in septic shock with tachycardic, tachypnic, and hyperthermic with oral temp 105.3 (08/31) . SBP <90. Initial blood cultures x 2 + MSSA. Repeat blood cultures negative. D/c'd Vanc, Zosyn Urine Cx Negative Sputum cx contaminated WBC 11.3--> 15.6-->8.7 Switched Nafcillin 2gm q4h to Cefazolin d/t cholestasis. Plan: - D/c IV NS d/t fluid overload - Consider ALISA for unknown source of initial bacteremia. - C. diff Heme/Onc: Thrombocytopenia ( stable ) 2/2 to alcohol + Splenomegaly PLT 79 (09/01) --> 339 Plan: - CBC QD FEN: IVF, Lytes PRN, NG tube enteral feeds PPx: Heparin 5000 U TID Dispo: Cont ICU Monitoring Visit type - Emergency Visit Emergency Visit: Yes ED Registration Date: 08/31/17 Care time: The patient presented to the Emergency Department on the above date and was hospitalized for further evaluation of their emergent condition. - New Patient This patient is new to me today: No - Critical Care Critical Care patient: Yes Total Critical Care Time (in minutes): 35 Critical Care Statement: The care of this patient involved high complexity decision making to prevent further life threatening deterioration of the patient 's condition and/or to evaluate & treat vital organ system(s) failure or risk of failure.
--- NOTE | 2017-09-06 14:09 | PN ---
Teaching Attending Note Name of Resident: Dominick Kasper ATTENDING PHYSICIAN STATEMENT I saw and evaluated the patient. I reviewed the resident's note and discussed the case with the resident. I agree with the resident's findings and plan as documented. SUBJECTIVE:intubated currently off sedation. OBJECTIVE: Last Vital Signs Temp Pulse Resp BP Pulse Ox 102 F H 104 H 37 H 183/93 100 09/06/17 12:40 09/06/17 12:40 09/06/17 13:59 09/06/17 12:40 09/06/17 10:35 Intake & Output 09/03/17 09/04/17 09/05/17 09/06/17 23:59 23:59 23:59 23:59 Intake Total 3815 4209.6 4553.4 1260 Output Total 1705 073 6044 360 Balance 2180 3659.6 3153.4 900 Weight 202 lb 7 oz 207 lb 8 oz 213 lb 6.519 oz 217 lb 9.54 oz General +gag +PERRL, opens eyes to verbal stimuli, breathing over the vent, no withdraw to pain CV S1 S2 RRR no murmur/rub/gallop Lungs coarse breath sounds Abdomen soft NT/ND Extremities 1+ pitting edema B/L UE ASSESSMENT AND PLAN: 66 yo M with PMH of alcohol abuse, HTN who presented to the ER after being found on the floor. 1. Hypotension- due to sepsis due to Bacteremia and possible aspiration PNA-Tm 101.1. continues to have multiple temp spikes. off pressors >24H. repeat BCx sent. will need to consider alternative source if continues to have temp. cont IVF due to fevers. on Cefazolin. ALISA on hold at this time. 2. Acute Hypoxic respiratory failure- s/p intubated on 09/02 after admitted due to tachypnea and hypoxic (not documented with low O2 sat but was on steadily increasing oxygen supplementation RA>NC>NRB) now on full vent support. titrate down support as tolerated. cont sedation vacation. vent management per ICU team 3. Acute transaminitis- likely due to hypotension and ETOH. now improving, cont to monitor 4. Acute ETOH withdrawal- off versed ggt. ativan prn signs of withdrawal. on thiamine/folate/MVI 5. Hypokalemia- resolved 6. Hyponatremia-resolved 7. Normocytic anemia- slight trend down. iron studies from last admission is noted. signs of iron def anemia and anemia of chronic disease. on iron supplementation. no signs of obvious bleeding. trend HgB, txn for Hgb <7 8. Thrombocytopenia- Secondary to alcohol, splenomegaly. now resolved. no signs of active bleeding 9. HTN-currently normotensive off pressors. cont to monitor., 10. Chronic right subdural hematoma 11. DVT ppx- hep sq 12. MICU monitoring The care of this patient involved high complexity decision making to prevent further life threatening deterioration of the patient's condition and/or to evaluate & treat vital organ system(s) failure or risk of failure. 48 mins
[2017-09-06] MEDS: IBUPROFEN 800 MG/8 ML IJ IVPB PRN (20:22)
[2017-09-06] MEDS: PROPOFOL 100 ML IVPUSH SCH (20:27)
[2017-09-07] MEDS: CEFAZOLIN 2 GM/D5W 50 ML IVPB SCH (01:07)
[2017-09-07] MEDS: PROPOFOL 100 ML IVPUSH SCH ×3 (02:00→07:00)
[2017-09-07] MEDS: HEPARIN NA (PORCINE) 5,000 UNITS/ML 1ML VIAL SQ SCH ×3 (05:56→21:33)
[2017-09-07 05:58] LABS: BASOPHIL 0.4 % (0-2.0); EOSINOPHIL 0.8 % (0-4.5); MCH 31.4 pg (25.7-33.7); MCHC 33.6 g/dl (32.0-35.9); MEAN CELL VOLUME 93.5 fl (80-96); MEAN PLT VOLUME 7.3 fl (7.5-11.1); NEUTROPHILS 80.5 % (42.8-82.8); PLATELET COUNT 315 K/MM3 (134-434); RDW 15.7 % (11.9-15.9); WHITE BLOOD COUNT 9.4 K/mm3 (4.0-10.0)
[2017-09-07] MEDS: ACETAMINOPHEN 325 MG TABLET (FP) NR PRN ×2 (06:19→14:18)
[2017-09-07 06:26] LABS: ALBUMIN 1.1 g/dl (3.4-5.0); ALK PHOS 126 U/L (45-117); ANION GAP 10 (8-16); BILIRUBIN,TOTAL 0.6 mg/dL (0.2-1.0); C-REACTIVE PROTEIN 15.2 MG/DL (0.00-0.3); CALCIUM 7.1 mg/dL (8.5-10.1); CO2 23 mmol/L (21-32); CREATININE 1.2 mg/dL (0.7-1.3); GLUCOSE,RANDOM 132 mg/dL (74-106); PHOSPHOROUS 3.1 mg/dL (2.5-4.9); SGOT/AST 32 U/L (15-37); SGPT/ALT 9 U/L (12-78); TOT PROT 5.3 g/dl (6.4-8.2)
--- NOTE | 2017-09-07 07:11 | PN ---
Progress Note (short form) - Note Progress Note: Chief Compliant: Events noted, notes reviewed, remains intubated and sedated, febrile History of Present Illness: Seen and examined in the ICU. Events noted, notes reviewed, remains intubated and sedated, febrile Echocardiography dated 09/02/2017 revealed probable preserved LV function, but can't R/O regional wall motion abnormality Chest x-ray noted worsening infiltrates, possible volume overload - Current Medication List Current Medications Acetaminophen (Tylenol -) 650 mg NR Q6H PRN PRN Reason: FEVER OR PAIN Last Admin: 09/07/17 06:19 Dose: 650 mg Bacitracin (Bacitracin -) 1 applic TP DAILY KINGS Last Admin: 09/06/17 09:04 Dose: 1 applic Ferrous Sulfate (Feosol -) 325 mg PO DAILY KIGNS Last Admin: 09/06/17 09:04 Dose: 325 mg Folic Acid (Folic Acid -) 1 mg PO DAILY KINGS Last Admin: 09/06/17 09:04 Dose: 1 mg Heparin Sodium (Porcine) (Heparin -) 5,000 unit SQ TID KINGS Last Admin: 09/07/17 05:56 Dose: 5,000 unit Famotidine/Sodium Chloride (Pepcid 20 Mg Premixed Ivpb -) 50 mls @ 100 mls/hr IVPB BID KINGS Last Admin: 09/06/17 22:03 Dose: 100 mls/hr Cefazolin Sodium/Dextrose (Ancef 2 Gm Premixed Ivpb -) 50 mls @ 100 mls/hr IVPB Q8H-IV KINGS Last Admin: 09/07/17 01:07 Dose: 100 mls/hr Propofol (Diprivan -) 100 mls @ 5.898 mls/hr IVPUSH TITR KINGS; 10 MCG/KG/MIN PRN Reason: Protocol Ibuprofen (Caldolor Injection -) 800 mg IVPB Q6H PRN PRN Reason: FEVER Last Admin: 09/06/17 20:22 Dose: 800 mg Lorazepam (Ativan Injection -) 2 mg IVPUSH Q2H PRN PRN Reason: ANXIETY Multivitamins/Minerals (Theragran-M) 1 each PO DAILY KINGS Last Admin: 09/06/17 09:03 Dose: 1 each Thiamine HCl (Vitamin B1 -) 100 mg PO DAILY KINGS Last Admin: 09/06/17 09:03 Dose: 100 mg Review of systems: Unable to obtain - Objective Vital Signs: Last Vital Signs Temp Pulse Resp BP Pulse Ox 101.5 F H 93 H 28 H 156/77 100 09/07/17 06:00 09/07/17 06:00 09/07/17 06:00 09/07/17 06:00 09/06/17 23:21 Intake & Output 09/04/17 09/05/17 09/06/17 09/07/17 23:59 23:59 23:59 23:59 Intake Total 4209.6 4553.4 1560 1068 Output Total 550 1400 360 100 Balance 3659.6 3153.4 1200 968 Weight 207 lb 8 oz 213 lb 6.519 oz 217 lb 9.54 oz 216 lb 11.43 oz Neck: Supple Negative JVD Cardiovascular: S1 S2 Regular Rate and Rhythm No Murmurs Respiratory: Bilateral Scattered Rhonchi Gastrointestinal: Soft Benign Normal Bowel Sounds Ext: No Edema Labs: CBC, BMP 09/07/17 05:45 09/07/17 05:45 Assessment/Plan ASSESSMENT: 1. Acute hypoxic respiratory failure, remains intubated/sedated 2. Pneumonia worsening infiltrates, MSSA bacteremia, post septic shock R/O endocarditis (ALISA on hold) 3. History of alcohol dependence 4. Acute renal insufficiency 5. Anemia PLAN: 1. ALISA to be considered if bacteremia persists, provided that there is no evidence of chronic liver disease with possible varices 2. Ventilator management as per the critical care team 3. Antibiotics as per ID service 4. consider repeat CT of the chest for further evaluation 5. May require diuretics valentin Blackwell M.D.
--- NOTE | 2017-09-07 07:28 | PN ---
Progress Note, Physician Chief Complaint: ID Cefazolin continues for MSSA in the blood culture on admission Has had intermittent fevers since admission 09/01 despite antibiotic for blood culture treatment. 35 % FIO2 - Current Medication List Current Medications: Active Medications Acetaminophen (Tylenol -) 650 mg NR Q6H PRN PRN Reason: FEVER OR PAIN Last Admin: 09/07/17 06:19 Dose: 650 mg Bacitracin (Bacitracin -) 1 applic TP DAILY [facility] Last Admin: 09/06/17 09:04 Dose: 1 applic Ferrous Sulfate (Feosol -) 325 mg PO DAILY KINGS Last Admin: 09/06/17 09:04 Dose: 325 mg Folic Acid (Folic Acid -) 1 mg PO DAILY [facility] Last Admin: 09/06/17 09:04 Dose: 1 mg Heparin Sodium (Porcine) (Heparin -) 5,000 unit SQ TID [facility] Last Admin: 09/07/17 05:56 Dose: 5,000 unit Famotidine/Sodium Chloride (Pepcid 20 Mg Premixed Ivpb -) 50 mls @ 100 mls/hr IVPB BID [facility] Last Admin: 09/06/17 22:03 Dose: 100 mls/hr Cefazolin Sodium/Dextrose (Ancef 2 Gm Premixed Ivpb -) 50 mls @ 100 mls/hr IVPB Q8H-IV KINGS Last Admin: 09/07/17 01:07 Dose: 100 mls/hr Propofol (Diprivan -) 100 mls @ 5.898 mls/hr IVPUSH TITR KINGS; 10 MCG/KG/MIN PRN Reason: Protocol Ibuprofen (Caldolor Injection -) 800 mg IVPB Q6H PRN PRN Reason: FEVER Last Admin: 09/06/17 20:22 Dose: 800 mg Lorazepam (Ativan Injection -) 2 mg IVPUSH Q2H PRN PRN Reason: ANXIETY Multivitamins/Minerals (Theragran-M) 1 each PO DAILY [facility] Last Admin: 09/06/17 09:03 Dose: 1 each Thiamine HCl (Vitamin B1 -) 100 mg PO DAILY [facility] Last Admin: 09/06/17 09:03 Dose: 100 mg - Objective Vital Signs: Vital Signs Temperature 101.5 F H 09/07/17 06:00 Pulse Rate 93 H 09/07/17 06:00 Respiratory Rate 28 H 09/07/17 06:00 Blood Pressure 156/77 10/21/17 06:00 O2 Sat by Pulse Oximetry (%) 100 09/06/17 23:21 Constitutional: Yes: Other (INtubated) Neck: Yes: WNL, Supple Cardiovascular: Yes: Regular Rate and Rhythm, S1, S2. No: Murmur, Rub Respiratory: Yes: WNL, Regular, CTA Bilaterally, Diminished. No: Rales, Rhonchi Gastrointestinal: Yes: WNL, Normal Bowel Sounds, Soft. No: Splenomegaly, Tenderness, Tenderness, Rebound Extremities: No: Cold, Cool, Cyanosis Edema: Yes Labs: CBC, BMP 09/07/17 05:45 09/07/17 05:45 INR, PTT INR 0.96 (0.82-1.09) 09/01/17 09:05 Problem List - Problems (1) Pneumonia Code(s): J18.9 - PNEUMONIA, UNSPECIFIED ORGANISM (2) Respiratory failure with hypoxia Code(s): J96.91 - RESPIRATORY FAILURE, UNSPECIFIED WITH HYPOXIA Qualifiers: Qualified Code(s): J96.01 - Acute respiratory failure with hypoxia; J96.01 - Acute respiratory failure with hypoxia; J96.01 - Acute respiratory failure with hypoxia (3) Staphylococcus aureus bacteremia Code(s): R78.81 - BACTEREMIA Assessment/Plan Microbiology 09/06/17 10:20 Stool Clostridium difficile Antigen (KHRIS) - Final 09/06/17 10:20 Stool Clostridium difficile Toxin Assay - Final 09/05/17 21:00 Sputum - Endotrachea Suction/Ventilator Gram Stain - Final 09/04/17 08:15 Blood - Peripheral Venous Blood Culture - Preliminary NO GROWTH OBTAINED AFTER 48 HOURS, INCUBATION TO CONTINUE FOR 3 DAYS. 09/04/17 08:00 Blood - Peripheral Venous Blood Culture - Preliminary NO GROWTH OBTAINED AFTER 48 HOURS, INCUBATION TO CONTINUE FOR 3 DAYS. Laboratory Tests 09/01/17 09/03/17 09/04/17 09:05 05:00 09:00 WBC Hgb Hct Plt Count Neutrophils % Lymphocytes % Monocytes % Eosinophils % Basophils % ESR 105 H INR 0.96 Creat Clearance w eGFR Total Bilirubin AST ALT Alkaline Phosphatase Albumin Urine RBC 40 Urine WBC 16 09/07/17 09/07/17 05:45 05:45 WBC 9.4 Hgb 9.6 L Hct 28.5 L Plt Count 315 Neutrophils % 80.5 Lymphocytes % 8.0 Monocytes % 10.3 H Eosinophils % 0.8 Basophils % 0.4 D ESR INR Creat Clearance w eGFR > 60 Total Bilirubin 0.6 D AST 32 ALT 9 L D Alkaline Phosphatase 126 H Albumin 1.1 L Urine RBC Urine WBC Assessment Staph aureus bacteremia MSSA assume skin source Persistant fever ? pneumonia related Respiratory failure Chronic alcoholism Possibility of endocarditis considered MSSA Plan In view of persistant fever will have to revisit the possibility that his pneumonia may be unreslted to MSSA and braoden coverage Will get CT scan of the lung for possible cavitations which would suggest Staph related At the same time obtain CT of abd for "fever workup" Moniter CRP levels Check sputum No further blood cultures for now Vancomycin and Zosyn empiric for now Discussed with cardiology re 3rd spacing on chest xray low albumin? Esau EMERY Critical care time spent 38 minutes Esau Cifuentes MD
--- NOTE | 2017-09-07 07:30 | PN ---
Progress Note (short form) - Note Progress Note: intubated/sedated Current Medications Generic Name Dose Route Start Last Admin Trade Name Freq PRN Reason Stop Dose Admin Acetaminophen 650 mg 09/07/17 05:53 09/07/17 06:19 Tylenol - NR 650 mg Q6H PRN Administration FEVER OR PAIN Bacitracin 1 applic 09/02/17 10:00 09/06/17 09:04 Bacitracin - TP 1 applic DAILY KINGS Administration Ferrous Sulfate 325 mg 09/05/17 12:00 09/06/17 09:04 Feosol - PO 325 mg DAILY KINGS Administration Folic Acid 1 mg 09/02/17 10:00 09/06/17 09:04 Folic Acid - PO 1 mg DAILY KINGS Administration Heparin Sodium (Porcine) 5,000 unit 09/02/17 06:00 09/07/17 05:56 Heparin - SQ 5,000 unit TID KINGS Administration Famotidine/Sodium Chloride 50 mls @ 100 mls/hr 09/02/17 10:00 09/06/17 22:03 Pepcid 20 Mg Premixed Ivpb - IVPB 100 mls/hr BID KINGS Administration Cefazolin Sodium/Dextrose 50 mls @ 100 mls/hr 09/04/17 12:30 09/07/17 01:07 Ancef 2 Gm Premixed Ivpb - IVPB 100 mls/hr Q8H-IV KINGS Administration Propofol 100 mls @ 5.898 mls/hr 09/07/17 07:30 Diprivan - IVPUSH TITR KINGS Protocol 10 MCG/KG/MIN Ibuprofen 800 mg 09/05/17 21:12 09/06/17 20:22 Caldolor Injection - IVPB 800 mg Q6H PRN Administration FEVER Lorazepam 2 mg 09/02/17 05:17 Ativan Injection - IVPUSH Q2H PRN ANXIETY Multivitamins/Minerals 1 each 09/02/17 10:00 09/06/17 09:03 Theragran-M PO 1 each DAILY KINGS Administration Thiamine HCl 100 mg 09/02/17 10:00 09/06/17 09:03 Vitamin B1 - PO 100 mg DAILY KINGS Administration Last Vital Signs Temp Pulse Resp BP Pulse Ox 101.5 F H 93 H 28 H 156/77 100 09/07/17 06:00 09/07/17 06:00 09/07/17 06:00 09/07/17 06:00 09/06/17 23:21 Intake & Output 09/04/17 09/05/17 09/06/17 09/07/17 23:59 23:59 23:59 23:59 Intake Total 4209.6 4553.4 1560 1068 Output Total 550 1400 360 100 Balance 3659.6 3153.4 1200 968 Weight 207 lb 8 oz 213 lb 6.519 oz 217 lb 9.54 oz 216 lb 11.43 oz General sedated CV S1 S2 RRR no murmur/rub/gallop Lungs coarse breath sounds anteriorly Abdomen soft NT/ND Extremities 1+ pitting edema B/L UE CBCD WBC 9.4 K/mm3 (4.0-10.0) 09/07/17 05:45 RBC 3.05 M/mm3 (4.00-5.60) L 09/07/17 05:45 Hgb 9.6 GM/dL (11.7-16.9) L 09/07/17 05:45 Hct 28.5 % (35.4-49) L 09/07/17 05:45 MCV 93.5 fl (80-96) 09/07/17 05:45 MCHC 33.6 g/dl (32.0-35.9) 09/07/17 05:45 RDW 15.7 % (11.9-15.9) 09/07/17 05:45 Plt Count 315 K/MM3 (134-434) 09/07/17 05:45 MPV 7.3 fl (7.5-11.1) L 09/07/17 05:45 CMP Sodium 145 mmol/L (136-145) 09/07/17 05:45 Potassium 3.5 mmol/L (3.5-5.1) 09/07/17 05:45 Chloride 112 mmol/L (98-107) H 09/07/17 05:45 Carbon Dioxide 23 mmol/L (21-32) 09/07/17 05:45 Anion Gap 10 (8-16) 09/07/17 05:45 BUN 26 mg/dL (7-18) H 09/07/17 05:45 Creatinine 1.2 mg/dL (0.7-1.3) 09/07/17 05:45 Creat Clearance w eGFR > 60 (>60) 09/07/17 05:45 Calcium 7.1 mg/dL (8.5-10.1) L 09/07/17 05:45 Total Bilirubin 0.6 mg/dL (0.2-1.0) D 09/07/17 05:45 AST 32 U/L (15-37) 09/07/17 05:45 ALT 9 U/L (12-78) L D 09/07/17 05:45 Alkaline Phosphatase 126 U/L (45-117) H 09/07/17 05:45 Total Protein 5.3 g/dl (6.4-8.2) L 09/07/17 05:45 Albumin 1.1 g/dl (3.4-5.0) L 09/07/17 05:45 Microbiology 09/05/17 21:00 Gram Stain - Final Sputum - Endotrachea Suction/Ventilator 09/06/17 10:20 Clostridium difficile Antigen (KHRIS) - Final Stool Clostridium difficile Toxin Assay - Final 09/04/17 08:15 Blood Culture - Preliminary Blood - Peripheral Venous NO GROWTH OBTAINED AFTER 48 HOURS, INCUBATION TO CONTINUE FOR 3 DAYS. 09/04/17 08:00 Blood Culture - Preliminary Blood - Peripheral Venous NO GROWTH OBTAINED AFTER 48 HOURS, INCUBATION TO CONTINUE FOR 3 DAYS. ASSESSMENT AND PLAN: 66 yo M with PMH of alcohol abuse, HTN who presented to the ER after being found on the floor. 1. Hypotension- due to sepsis due to Bacteremia and possible aspiration PNA-Tm 102.1. continues to have multiple temp spikes. off pressors >48H. re-cultured. will need to consider alternative source if continues to have temp. was having multiple loose BM which have now resolved. cdiff negative. cont IVF due to fevers. on Cefazolin. ALISA on hold at this time. 2. Acute Hypoxic respiratory failure- s/p intubated on 09/02 after admitted due to tachypnea and hypoxic (not documented with low O2 sat but was on steadily increasing oxygen supplementation RA>NC>NRB) now on full vent support. titrate down support as tolerated. cont sedation vacation. vent management per ICU team 3. Acute transaminitis- likely due to hypotension and ETOH. now improving, cont to monitor 4. Acute ETOH withdrawal- off versed ggt. ativan prn signs of withdrawal. on thiamine/folate/MVI 5. Hypokalemia- resolved 6. Hyponatremia-resolved 7. Normocytic anemia- slight trend down. iron studies from last admission is noted. signs of iron def anemia and anemia of chronic disease. on iron supplementation. no signs of obvious bleeding. trend HgB, txn for Hgb <7 8. Thrombocytopenia- Secondary to alcohol, splenomegaly. now resolved. no signs of active bleeding 9. HTN-currently normotensive off pressors. cont to monitor., 10. Chronic right subdural hematoma 11. DVT ppx- hep sq 12. MICU monitoring The care of this patient involved high complexity decision making to prevent further life threatening deterioration of the patient's condition and/or to evaluate & treat vital organ system(s) failure or risk of failure. 50 mins Visit type - Emergency Visit Emergency Visit: Yes ED Registration Date: 08/31/17 Care time: The patient presented to the Emergency Department on the above date and was hospitalized for further evaluation of their emergent condition. - New Patient This patient is new to me today: No - Critical Care Critical Care patient: Yes Total Critical Care Time (in minutes): 50 Critical Care Statement: The care of this patient involved high complexity decision making to prevent further life threatening deterioration of the patient 's condition and/or to evaluate & treat vital organ system(s) failure or risk of failure. - Discharge Referral Referred to [facility] No
[2017-09-07] MEDS: FAMOTIDINE 20 MG/50 ML IVPB 50 ML IVPB SCH (09:07)
[2017-09-07] MEDS: FERROUS SO4 325 MG TABLET (FP) PO SCH (09:33)
[2017-09-07] MEDS: THIAMINE HCL 100 MG TABLET (FP) PO SCH (09:33)
[2017-09-07] MEDS: VANCOMYCIN 1,250 MG in DEXTROSE 5%-WATER - 250 ML IVPB SCH ×2 (09:33→21:54)
[2017-09-07] MEDS: MULTIVITAMINS THER W-MINERALS COMBO TABLET (FP) PO SCH (09:33)
[2017-09-07] MEDS: FOLIC ACID 1 MG TABLET (FP) PO SCH (09:33)
--- NOTE | 2017-09-07 09:46 | PN ---
Progress Note (short form) - Note Progress Note: Seen and examined in ICU Remains intubated, failed SBT this AM due to RR >40, Tv <150 Cont fevers Decreased u/o but has no hines Current Medications Acetaminophen (Tylenol -) 650 mg NR Q6H PRN PRN Reason: FEVER OR PAIN Last Admin: 09/07/17 06:19 Dose: 650 mg Bacitracin (Bacitracin -) 1 applic TP DAILY [facility] Last Admin: 09/06/17 09:04 Dose: 1 applic Ferrous Sulfate (Feosol -) 325 mg PO DAILY [facility] Last Admin: 09/07/17 09:33 Dose: 325 mg Folic Acid (Folic Acid -) 1 mg PO DAILY [facility] Last Admin: 09/07/17 09:33 Dose: 1 mg Heparin Sodium (Porcine) (Heparin -) 5,000 unit SQ TID [facility] Last Admin: 09/07/17 05:56 Dose: 5,000 unit Famotidine/Sodium Chloride (Pepcid 20 Mg Premixed Ivpb -) 50 mls @ 100 mls/hr IVPB BID [facility] Last Admin: 09/07/17 09:07 Dose: 100 mls/hr Propofol (Diprivan -) 100 mls @ 5.898 mls/hr IVPUSH TITR [facility]; 10 MCG/KG/MIN PRN Reason: Protocol Vancomycin HCl 1,250 mg/ (Dextrose) 250 mls @ 250 mls/hr IVPB BID [facility] PRN Reason: Protocol Last Admin: 09/07/17 09:33 Dose: 250 mls/hr Piperacillin/Tazobactam/Dextrose (Zosyn 4.5gm Ivpb (Premix)) 100 mls @ 200 mls/ hr IVPB Q8H-IV [facility] PRN Reason: Protocol Ibuprofen (Caldolor Injection -) 800 mg IVPB Q6H PRN PRN Reason: FEVER Last Admin: 09/06/17 20:22 Dose: 800 mg Lorazepam (Ativan Injection -) 2 mg IVPUSH Q2H PRN PRN Reason: ANXIETY Multivitamins/Minerals (Theragran-M) 1 each PO DAILY [facility] Last Admin: 09/07/17 09:33 Dose: 1 each Thiamine HCl (Vitamin B1 -) 100 mg PO DAILY [facility] Last Admin: 09/07/17 09:33 Dose: 100 mg Vital Signs Period Temp Pulse Resp BP Sys/Jeff Pulse Ox Last 24 Hr 100.5 F-102.1 F 81-113 20-37 108-183/68-93 100-100 Intake & Output 09/04/17 09/05/17 09/06/17 09/07/17 23:59 23:59 23:59 23:59 Intake Total 4209.6 4553.4 1560 1068 Output Total 550 1400 360 100 Balance 3659.6 3153.4 1200 968 Weight 94.12 kg 96.8 kg 98.7 kg 98.3 kg Exam: intubated, HEENT: PERRL, no JVD CV: tachy Pulm: crackles, diminished in bases Abd: obese, SNTND, +BS Ext: warm, +2 pulses, +1 edema Neuro: RASS -2/3 CBCD WBC 9.4 K/mm3 (4.0-10.0) 09/07/17 05:45 RBC 3.05 M/mm3 (4.00-5.60) L 09/07/17 05:45 Hgb 9.6 GM/dL (11.7-16.9) L 09/07/17 05:45 Hct 28.5 % (35.4-49) L 09/07/17 05:45 MCV 93.5 fl (80-96) 09/07/17 05:45 MCHC 33.6 g/dl (32.0-35.9) 09/07/17 05:45 RDW 15.7 % (11.9-15.9) 09/07/17 05:45 Plt Count 315 K/MM3 (134-434) 09/07/17 05:45 MPV 7.3 fl (7.5-11.1) L 09/07/17 05:45 CMP Sodium 145 mmol/L (136-145) 09/07/17 05:45 Potassium 3.5 mmol/L (3.5-5.1) 09/07/17 05:45 Chloride 112 mmol/L (98-107) H 09/07/17 05:45 Carbon Dioxide 23 mmol/L (21-32) 09/07/17 05:45 Anion Gap 10 (8-16) 09/07/17 05:45 BUN 26 mg/dL (7-18) H 09/07/17 05:45 Creatinine 1.2 mg/dL (0.7-1.3) 09/07/17 05:45 Creat Clearance w eGFR > 60 (>60) 09/07/17 05:45 Random Glucose 132 mg/dL (74-106) H D 09/07/17 05:45 Calcium 7.1 mg/dL (8.5-10.1) L 09/07/17 05:45 Total Bilirubin 0.6 mg/dL (0.2-1.0) D 09/07/17 05:45 AST 32 U/L (15-37) 09/07/17 05:45 ALT 9 U/L (12-78) L D 09/07/17 05:45 Alkaline Phosphatase 126 U/L (45-117) H 09/07/17 05:45 Total Protein 5.3 g/dl (6.4-8.2) L 09/07/17 05:45 Albumin 1.1 g/dl (3.4-5.0) L 09/07/17 05:45 CARDIAC ENZYMES Creatine Kinase 846 IU/L (39-308) H 08/31/17 13:40 Troponin I 0.03 ng/ml (0.00-0.05) D 08/31/17 13:40 CXR: ETT in good position. bilateral pulm vasc congestion plus effusion vs consolidation Microbiology 09/04/17 08:15 Blood - Peripheral Venous Blood Culture - Preliminary NO GROWTH OBTAINED AFTER 72 HOURS, INCUBATION TO CONTINUE FOR 2 DAYS. 09/04/17 08:00 Blood - Peripheral Venous Blood Culture - Preliminary NO GROWTH OBTAINED AFTER 72 HOURS, INCUBATION TO CONTINUE FOR 2 DAYS. 09/05/17 21:00 Sputum - Endotrachea Suction/Ventilator Gram Stain - Final 09/06/17 10:20 Stool Clostridium difficile Antigen (KHRIS) - Final 09/06/17 10:20 Stool Clostridium difficile Toxin Assay - Final 09/02/17 00:00 Sputum - Endotracheal Suction W/O Vent Gram Stain - Final 09/02/17 00:00 Sputum - Endotracheal Suction W/O Vent Sputum Culture - Final Yeast Like Organism 09/03/17 12:15 Urine - Urine - Catheterized Urine Culture - Final NO GROWTH OBTAINED 09/01/17 05:00 Blood - Peripheral Venous Blood Culture - Final Staphylococcus Aureus 09/01/17 00:01 Blood - Peripheral Venous Blood Culture - Final Staphylococcus Aureus 09/01/17 15:50 Blood - Peripheral Venous Blood Culture - Final Staphylococcus Aureus 09/01/17 15:55 Blood - Peripheral Venous Blood Culture - Final Staphylococcus Aureus 08/31/17 23:22 Urine - Urine Clean Catch Urine Culture - Final Contaminated: Please Repeat ASSESSMENT AND PLAN: Acute Hypoxic Respiratory Failure Pneumonia MSSA Bacteremia Septic Shock Alcohol Dependence - ABX per ID - taper FiO2 to keep SpO2 >90% - Oral care, HOB >30 - Sedation vacation - SBT: failed wean this AM (RR >40, TV <150) - diuresis, place hines for strict I&O's - Enteral feeds - Agree with CT chest, abd/pelvis given cont fevers Boerem ACNP Pulm/CCM CCT: 35m Problem List - Problems (1) Respiratory failure with hypoxia Code(s): J96.91 - RESPIRATORY FAILURE, UNSPECIFIED WITH HYPOXIA Qualifiers: Chronicity: acute Qualified Code(s): J96.01 - Acute respiratory failure with hypoxia; J96.01 - Acute respiratory failure with hypoxia; J96.01 - Acute respiratory failure with hypoxia (2) Pneumonia Code(s): J18.9 - PNEUMONIA, UNSPECIFIED ORGANISM Qualifiers: Pneumonia type: aspiration pneumonia (3) Abuse, drug or alcohol Code(s): F19.10 - OTHER PSYCHOACTIVE SUBSTANCE ABUSE, UNCOMPLICATED
[2017-09-07] MEDS ORDERED: POTASSIUM CHLORIDE ORAL LIQUID 20 MEQ/15 ML PO ONE (10:30)
[2017-09-07] MEDS: BACITRACIN 15 GM TUBE TOPICAL OINTMENT TP SCH (10:36)
[2017-09-07] MEDS: FUROSEMIDE 40 MG/4 ML INJECTABLE VIAL IVPUSH SCH ×2 (10:40→14:18)
[2017-09-07] MEDS: PIPERACILLIN/TAZOB 4.5 GM 100 ML IVPB SCH ×2 (10:46→17:34)
[2017-09-07] MEDS ORDERED: PT OWN MED DRAWER 7, Y5N ONE ×2 (11:50→16:12)
[2017-09-08] MEDS: PIPERACILLIN/TAZOB 4.5 GM 100 ML IVPB SCH (01:15)
[2017-09-08] MEDS: HEPARIN NA (PORCINE) 5,000 UNITS/ML 1ML VIAL SQ SCH ×3 (05:20→21:08)
[2017-09-08] MEDS: FUROSEMIDE 40 MG/4 ML INJECTABLE VIAL IVPUSH SCH ×2 (05:20→13:29)
[2017-09-08 05:58] LABS: MCH 31.6 pg (25.7-33.7); MCHC 34.1 g/dl (32.0-35.9); MEAN CELL VOLUME 92.9 fl (80-96); MEAN PLT VOLUME 7.4 fl (7.5-11.1); PLATELET COUNT 314 K/MM3 (134-434); RDW 16.1 % (11.9-15.9); WHITE BLOOD COUNT 12.2 K/mm3 (4.0-10.0)
[2017-09-08 06:23] LABS: ALBUMIN 1.3 g/dl (3.4-5.0); AMYLASE 41 U/L (25-115); ANION GAP 11 (8-16); CALCIUM 7.6 mg/dL (8.5-10.1); CO2 25 mmol/L (21-32); CREATININE 1.3 mg/dL (0.7-1.3); GLUCOSE,RANDOM 137 mg/dL (74-106); MAGNESIUM 1.9 mg/dL (1.8-2.4); SGOT/AST 54 U/L (15-37); SGPT/ALT 15 U/L (12-78)
[2017-09-08 06:28] LABS: ALK PHOS 164 U/L (45-117); BILIRUBIN,DIRECT 0.7 mg/dL (0.0-0.2); PHOSPHOROUS 3.6 mg/dL (2.5-4.9)
--- NOTE | 2017-09-08 07:17 | PN ---
Progress Note (short form) - Note Progress Note: Chief Compliant: Events noted, notes reviewed, remains intubated and sedated, and remains febrile History of Present Illness: Seen and examined in the ICU. Events noted, notes reviewed, remains intubated and sedated, and remains febrile Echocardiography dated 09/02/2017 revealed probable preserved LV function, but can't R/O regional wall motion abnormality Chest x-ray noted improving infiltrates persistent pleural effusions - Current Medication List Current Medications Acetaminophen (Tylenol -) 650 mg NR Q6H PRN PRN Reason: FEVER OR PAIN Last Admin: 09/07/17 14:18 Dose: 650 mg Bacitracin (Bacitracin -) 1 applic TP DAILY [facility] Last Admin: 09/07/17 10:36 Dose: 1 applic Ferrous Sulfate (Feosol -) 325 mg PO DAILY [facility] Last Admin: 09/07/17 09:33 Dose: 325 mg Folic Acid (Folic Acid -) 1 mg PO DAILY [facility] Last Admin: 09/07/17 09:33 Dose: 1 mg Furosemide (Lasix Injection -) 40 mg IVPUSH BID@0600,1400 [facility] Last Admin: 09/08/17 05:20 Dose: 40 mg Heparin Sodium (Porcine) (Heparin -) 5,000 unit SQ TID [facility] Last Admin: 09/08/17 05:20 Dose: 5,000 unit Propofol (Diprivan -) 100 mls @ 5.898 mls/hr IVPUSH TITR [facility]; 10 MCG/KG/MIN PRN Reason: Protocol Last Titration: 09/08/17 02:00 Dose: 30 mcg/kg/min Vancomycin HCl 1,250 mg/ (Dextrose) 250 mls @ 250 mls/hr IVPB BID [facility] PRN Reason: Protocol Last Admin: 09/07/17 21:54 Dose: 250 mls/hr Piperacillin/Tazobactam/Dextrose (Zosyn 4.5gm Ivpb (Premix)) 100 mls @ 200 mls/ hr IVPB Q8H-IV [facility] PRN Reason: Protocol Last Admin: 09/08/17 01:15 Dose: 200 mls/hr Ibuprofen (Caldolor Injection -) 800 mg IVPB Q6H PRN PRN Reason: FEVER Last Admin: 09/06/17 20:22 Dose: 800 mg Lorazepam (Ativan Injection -) 2 mg IVPUSH Q2H PRN PRN Reason: ANXIETY Multivitamins/Minerals (Theragran-M) 1 each PO DAILY [facility] Last Admin: 09/07/17 09:33 Dose: 1 each Thiamine HCl (Vitamin B1 -) 100 mg PO DAILY [facility] Last Admin: 09/07/17 09:33 Dose: 100 mg Review of systems: Unable to obtain - Objective Vital Signs: Last Vital Signs Temp Pulse Resp BP Pulse Ox 100.7 F H 84 25 H 136/86 99 09/08/17 06:00 09/08/17 06:00 09/08/17 06:30 09/08/17 06:00 09/07/17 20:15 Intake & Output 09/05/17 09/06/17 09/07/17 09/08/17 23:59 23:59 23:59 23:59 Intake Total 4553.4 1560 2468 1304 Output Total 7759 379 4692 1100 Balance 3153.4 1200 -1632 204 Weight 213 lb 6.519 oz 217 lb 9.54 oz 216 lb 11.43 oz 214 lb 6 oz Neck: Supple Negative JVD Cardiovascular: S1 S2 Regular Rate and Rhythm No Murmurs Respiratory: Bilateral Scattered Rhonchi Gastrointestinal: Soft Benign Normal Bowel Sounds Ext: Extensive Edema Labs: CBC, BMP 09/08/17 05:45 09/08/17 05:45 Hepatic Panel Total Bilirubin 1.0 mg/dL (0.2-1.0) D 09/08/17 05:45 Direct Bilirubin 0.7 mg/dL (0.0-0.2) H D 09/08/17 05:45 AST 54 U/L (15-37) H D 09/08/17 05:45 ALT 15 U/L (12-78) D 09/08/17 05:45 Alkaline Phosphatase 164 U/L (45-117) H D 09/08/17 05:45 Albumin 1.3 g/dl (3.4-5.0) L 09/08/17 05:45 INR, PTT INR 0.96 (0.82-1.09) 09/01/17 09:05 Assessment/Plan ASSESSMENT: 1. Acute hypoxic respiratory failure, remains intubated/sedated, pulmonary infiltrates/pulmonary edema improving 2. Pneumonia, MSSA bacteremia, post septic shock R/O endocarditis (ALISA on hold) 3. Probable diastolic LV dysfunction with congestive heart failure, volume overload, resolving 4. History of alcohol dependence 5. Acute renal insufficiency 6. Anemia PLAN: 1. As outlined in prior notes ALISA to be considered if bacteremia persists, provided that there is no evidence of chronic liver disease with possible varices 2. Continue diuretics with close monitoring of renal function 3. Ventilator management as per the critical care team 4. Antibiotics as per ID service 5. Consider repeat CT of the chest for further evaluation as recommended by ID service Chang Blackwell M.D.
--- NOTE | 2017-09-08 07:55 | PN ---
Progress Note (short form) - Note Progress Note: Progress Note (short form) - Note Progress Note: Seen and examined in ICU no acute events overnight blood cxl remain positive still febrile CT chest with possible septic emboli Current Medications Acetaminophen (Tylenol -) 650 mg NR Q6H PRN PRN Reason: FEVER OR PAIN Last Admin: 09/07/17 14:18 Dose: 650 mg Bacitracin (Bacitracin -) 1 applic TP DAILY [facility] Last Admin: 09/07/17 10:36 Dose: 1 applic Ferrous Sulfate (Feosol -) 325 mg PO DAILY [facility] Last Admin: 09/07/17 09:33 Dose: 325 mg Folic Acid (Folic Acid -) 1 mg PO DAILY [facility] Last Admin: 09/07/17 09:33 Dose: 1 mg Furosemide (Lasix Injection -) 40 mg IVPUSH BID@0600,1400 [facility] Last Admin: 09/08/17 05:20 Dose: 40 mg Heparin Sodium (Porcine) (Heparin -) 5,000 unit SQ TID [facility] Last Admin: 09/08/17 05:20 Dose: 5,000 unit Propofol (Diprivan -) 100 mls @ 5.898 mls/hr IVPUSH TITR [facility]; 10 MCG/KG/MIN PRN Reason: Protocol Last Titration: 09/08/17 02:00 Dose: 30 mcg/kg/min Vancomycin HCl 1,250 mg/ (Dextrose) 250 mls @ 250 mls/hr IVPB BID [facility] PRN Reason: Protocol Last Admin: 09/07/17 21:54 Dose: 250 mls/hr Piperacillin/Tazobactam/Dextrose (Zosyn 4.5gm Ivpb (Premix)) 100 mls @ 200 mls/ hr IVPB Q8H-IV [facility] PRN Reason: Protocol Last Admin: 09/08/17 01:15 Dose: 200 mls/hr Ibuprofen (Caldolor Injection -) 800 mg IVPB Q6H PRN PRN Reason: FEVER Last Admin: 09/06/17 20:22 Dose: 800 mg Lorazepam (Ativan Injection -) 2 mg IVPUSH Q2H PRN PRN Reason: ANXIETY Multivitamins/Minerals (Theragran-M) 1 each PO DAILY [facility] Last Admin: 09/07/17 09:33 Dose: 1 each Thiamine HCl (Vitamin B1 -) 100 mg PO DAILY [facility] Last Admin: 09/07/17 09:33 Dose: 100 mg Vital Signs Temp 100.7 F H 09/08/17 06:00 Pulse 84 09/08/17 06:00 Resp 25 H 09/08/17 06:30 BP 136/86 09/08/17 06:00 Pulse Ox 99 09/07/17 20:15 Intake & Output 09/07/17 09/07/17 09/08/17 11:59 23:59 11:59 Intake Total 1068 1400 1304 Output Total 300 3800 1100 Balance 768 -2400 204 Weight 98.3 kg 97.239 kg Intake: IV 216 204 Diprivan - 100 ml @ 10 216 MCG/KG/MIN 5.269 mls/hr IVPUSH TITR [facility] Rx#: [id number] Diprivan - 100 ml @ 10 204 MCG/KG/MIN 5.898 mls/hr IVPUSH TITR [facility] Rx#: [id number] IVPB 500 200 Tube Feeding 540 270 540 Tube Irrigant 312 630 360 Output: Urine 300 3800 1100 Freeman 300 3800 1100 Other: Voiding Method Diaper Indwelling Catheter # Unmeasured Voids Freeman 3 1 Bowel Movement Yes # Bowel Movements 1 Weight Measurement Method Built in [facility] Built in [facility] Exam: intubated, sedated, febrile HEENT: PERRL, no JVD CV: tachy, unable to appreciate m/r/g Pulm: crackles, diminished in bases Abd: obese, SNTND, +BS Ext: warm, +2 pulses, +1 edema Neuro: RASS -2/3, on sedation CBCD WBC 12.2 K/mm3 (4.0-10.0) H 09/08/17 05:45 RBC 3.20 M/mm3 (4.00-5.60) L 09/08/17 05:45 Hgb 10.1 GM/dL (11.7-16.9) L 09/08/17 05:45 Hct 29.7 % (35.4-49) L 09/08/17 05:45 MCV 92.9 fl (80-96) 09/08/17 05:45 MCHC 34.1 g/dl (32.0-35.9) 09/08/17 05:45 RDW 16.1 % (11.9-15.9) H 09/08/17 05:45 Plt Count 314 K/MM3 (134-434) 09/08/17 05:45 MPV 7.4 fl (7.5-11.1) L 09/08/17 05:45 CMP Sodium 141 mmol/L (136-145) 09/08/17 05:45 Potassium 3.5 mmol/L (3.5-5.1) 09/08/17 05:45 Chloride 105 mmol/L (98-107) 09/08/17 05:45 Carbon Dioxide 25 mmol/L (21-32) 09/08/17 05:45 Anion Gap 11 (8-16) 09/08/17 05:45 BUN 30 mg/dL (7-18) H 09/08/17 05:45 Creatinine 1.3 mg/dL (0.7-1.3) 09/08/17 05:45 Creat Clearance w eGFR > 60 (>60) 09/07/17 05:45 Calcium 7.6 mg/dL (8.5-10.1) L 09/08/17 05:45 Total Bilirubin 1.0 mg/dL (0.2-1.0) D 09/08/17 05:45 AST 54 U/L (15-37) H D 09/08/17 05:45 ALT 15 U/L (12-78) D 09/08/17 05:45 Alkaline Phosphatase 164 U/L (45-117) H D 09/08/17 05:45 Total Protein 6.0 g/dl (6.4-8.2) L 09/08/17 05:45 Albumin 1.3 g/dl (3.4-5.0) L 09/08/17 05:45 CXR: ETT in satisfactory position, L effusion remains, slightly improved multifocal infiltrate Microbiology 09/06/17 11:02 Blood - Peripheral Venous Blood Culture - Final Pending Organism 09/05/17 21:00 Sputum - Endotrachea Suction/Ventilator Gram Stain - Final 09/05/17 21:00 Sputum - Endotrachea Suction/Ventilator Sputum Culture - Preliminary Yeast Like Organism 09/06/17 11:02 Blood - Peripheral Venous Blood Culture - Preliminary NO GROWTH OBTAINED AFTER 24 HOURS, INCUBATION TO CONTINUE FOR 4 DAYS. 09/04/17 08:15 Blood - Peripheral Venous Blood Culture - Preliminary NO GROWTH OBTAINED AFTER 72 HOURS, INCUBATION TO CONTINUE FOR 2 DAYS. 09/04/17 08:00 Blood - Peripheral Venous Blood Culture - Preliminary NO GROWTH OBTAINED AFTER 72 HOURS, INCUBATION TO CONTINUE FOR 2 DAYS. 09/06/17 10:20 Stool Clostridium difficile Antigen (KHRIS) - Final 09/06/17 10:20 Stool Clostridium difficile Toxin Assay - Final 09/02/17 00:00 Sputum - Endotracheal Suction W/O Vent Gram Stain - Final 09/02/17 00:00 Sputum - Endotracheal Suction W/O Vent Sputum Culture - Final Yeast Like Organism 09/03/17 12:15 Urine - Urine - Catheterized Urine Culture - Final NO GROWTH OBTAINED 09/01/17 05:00 Blood - Peripheral Venous Blood Culture - Final Staphylococcus Aureus 09/01/17 00:01 Blood - Peripheral Venous Blood Culture - Final Staphylococcus Aureus 09/01/17 15:50 Blood - Peripheral Venous Blood Culture - Final Staphylococcus Aureus 09/01/17 15:55 Blood - Peripheral Venous Blood Culture - Final Staphylococcus Aureus 08/31/17 23:22 Urine - Urine Clean Catch Urine Culture - Final Contaminated: Please Repeat t ASSESSMENT AND PLAN: Acute Hypoxic Respiratory Failure Pneumonia MSSA Bacteremia Septic Shock Alcohol Dependence - ABX per ID, consider P/T to nafcillin given persitent BC, however had increase LFT last challenge - persistent positive blood cxl and appearance of septic emboli c/f endocarditis +/- abcess - discussed timing of EGD---> ALISA with cardiology - taper FiO2 to keep SpO2 >90% - Oral care, HOB >30 - Sedation vacation, if remains altered needs CT head - daily SBT - agresssive diuresis, strict I&O's - Enteral feeds - GI and DVT elmer Silva ACNP Pulm/CCM CCT: 35m Problem List - Problems (1) Respiratory failure with hypoxia Code(s): J96.91 - RESPIRATORY FAILURE, UNSPECIFIED WITH HYPOXIA Qualifiers: Chronicity: acute Qualified Code(s): J96.01 - Acute respiratory failure with hypoxia; J96.01 - Acute respiratory failure with hypoxia; J96.01 - Acute respiratory failure with hypoxia (2) Pneumonia Code(s): J18.9 - PNEUMONIA, UNSPECIFIED ORGANISM Qualifiers: Pneumonia type: aspiration pneumonia (3) Abuse, drug or alcohol Code(s): F19.10 - OTHER PSYCHOACTIVE SUBSTANCE ABUSE, UNCOMPLICATED
[2017-09-08] MEDS: PROPOFOL 100 ML IVPUSH SCH (08:34)
--- NOTE | 2017-09-08 08:38 | PN ---
Progress Note, Physician Chief Complaint: ID Persistant fevers despite antibiotics. We know know he has cavitary lung lesions with large pleural effusions. I suspect all embolic with empyema possible. Blood cultures persistently postive Intubated - Current Medication List Current Medications: Active Medications Acetaminophen (Tylenol -) 650 mg NR Q6H PRN PRN Reason: FEVER OR PAIN Last Admin: 09/07/17 14:18 Dose: 650 mg Bacitracin (Bacitracin -) 1 applic TP DAILY [facility] Last Admin: 09/07/17 10:36 Dose: 1 applic Ferrous Sulfate (Feosol -) 325 mg PO DAILY [facility] Last Admin: 09/07/17 09:33 Dose: 325 mg Folic Acid (Folic Acid -) 1 mg PO DAILY [facility] Last Admin: 09/07/17 09:33 Dose: 1 mg Furosemide (Lasix Injection -) 40 mg IVPUSH BID@0600,1400 [facility] Last Admin: 09/08/17 05:20 Dose: 40 mg Heparin Sodium (Porcine) (Heparin -) 5,000 unit SQ TID [facility] Last Admin: 09/08/17 05:20 Dose: 5,000 unit Propofol (Diprivan -) 100 mls @ 5.898 mls/hr IVPUSH TITR [facility]; 10 MCG/KG/MIN PRN Reason: Protocol Last Titration: 09/08/17 02:00 Dose: 30 mcg/kg/min Vancomycin HCl 1,250 mg/ (Dextrose) 250 mls @ 250 mls/hr IVPB BID [facility] PRN Reason: Protocol Last Admin: 09/07/17 21:54 Dose: 250 mls/hr Piperacillin/Tazobactam/Dextrose (Zosyn 4.5gm Ivpb (Premix)) 100 mls @ 200 mls/ hr IVPB Q8H-IV [facility] PRN Reason: Protocol Last Admin: 09/08/17 01:15 Dose: 200 mls/hr Ibuprofen (Caldolor Injection -) 800 mg IVPB Q6H PRN PRN Reason: FEVER Last Admin: 09/06/17 20:22 Dose: 800 mg Lorazepam (Ativan Injection -) 2 mg IVPUSH Q2H PRN PRN Reason: ANXIETY Multivitamins/Minerals (Theragran-M) 1 each PO DAILY [facility] Last Admin: 09/07/17 09:33 Dose: 1 each Thiamine HCl (Vitamin B1 -) 100 mg PO DAILY [facility] Last Admin: 09/07/17 09:33 Dose: 100 mg - Objective Vital Signs: Vital Signs Temperature 100.7 F H 09/08/17 06:00 Pulse Rate 84 09/08/17 06:00 Respiratory Rate 25 H 09/08/17 06:30 Blood Pressure 136/86 09/08/17 06:00 O2 Sat by Pulse Oximetry (%) 99 09/07/17 20:15 Constitutional: Yes: Other (Intubated) Eyes: No: Conjunctiva Clear, Sclera Icterus HENT: Yes: WNL, Atraumatic Neck: Yes: WNL, Supple Cardiovascular: Yes: Regular Rate and Rhythm, S1, S2. No: Murmur Respiratory: Yes: WNL, Regular, CTA Bilaterally, Mechanically Ventilated. No: Rhonchi Gastrointestinal: Yes: WNL, Normal Bowel Sounds, Soft. No: Palpable Mass, Splenomegaly, Tenderness, Epigastrium Extremities: No: Calf Tenderness, Cold, Cool Edema: No Labs: CBC, BMP 09/08/17 05:45 09/08/17 05:45 INR, PTT INR 0.96 (0.82-1.09) 09/01/17 09:05 Problem List - Problems (1) Pneumonia Code(s): J18.9 - PNEUMONIA, UNSPECIFIED ORGANISM Qualifiers: Pneumonia type: aspiration pneumonia (2) Respiratory failure with hypoxia Code(s): J96.91 - RESPIRATORY FAILURE, UNSPECIFIED WITH HYPOXIA Qualifiers: Chronicity: acute Qualified Code(s): J96.01 - Acute respiratory failure with hypoxia; J96.01 - Acute respiratory failure with hypoxia; J96.01 - Acute respiratory failure with hypoxia (3) Staphylococcus aureus bacteremia Code(s): R78.81 - BACTEREMIA (5) Endocarditis due to Staphylococcus Code(s): I33.0 - ACUTE AND SUBACUTE INFECTIVE ENDOCARDITIS B95.8 - UNSP STAPHYLOCOCCUS THE CAUSE OF DISEASES [facility] Assessment/Plan Microbiology 09/01/17 15:55 Blood - Peripheral Venous Blood Culture - Final Staphylococcus Aureus 09/01/17 15:50 Blood - Peripheral Venous Blood Culture - Final Staphylococcus Aureus 09/01/17 05:00 Blood - Peripheral Venous Blood Culture - Final Staphylococcus Aureus 09/01/17 00:01 Blood - Peripheral Venous Blood Culture - Final Staphylococcus Aureus 08/31/17 23:22 Urine - Urine Clean Catch Urine Culture - Final Contaminated: Please Repeat 09/06/17 11:02 Blood - Peripheral Venous Blood Culture - Preliminary Presumptive Mssa (Pbp2a Neg) Laboratory Tests 09/08/17 09/08/17 05:45 05:45 WBC 12.2 H Hgb 10.1 L Hct 29.7 L Plt Count 314 Anion Gap 11 BUN 30 H Creatinine 1.3 Total Bilirubin 1.0 D Direct Bilirubin 0.7 H D AST 54 H D ALT 15 D Alkaline Phosphatase 164 H D Assessment 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 empyema Reparatory failure Pneumonia with effusions Chronic alcoholism Plan Comfortable now this all staphylococcal disease as originally suspected Attempt thoracentesis ? need for chest tube Substitute Nafcillin and watch LFTs Discussed with ICU staff and cardiology ree possible ALISA and attempt thoracentesis Esau EMERY
--- NOTE | 2017-09-08 09:02 | PN ---
Progress Note (short form) - Note Progress Note: intubated/sedated 1 loose BM yesterday Current Medications Generic Name Dose Route Start Last Admin Trade Name Freq PRN Reason Stop Dose Admin Acetaminophen 650 mg 09/07/17 05:53 09/07/17 14:18 Tylenol - NR 650 mg Q6H PRN Administration FEVER OR PAIN Bacitracin 1 applic 09/02/17 10:00 09/07/17 10:36 Bacitracin - TP 1 applic DAILY KINGS Administration Ferrous Sulfate 325 mg 09/05/17 12:00 09/07/17 09:33 Feosol - PO 325 mg DAILY KINGS Administration Folic Acid 1 mg 09/02/17 10:00 09/07/17 09:33 Folic Acid - PO 1 mg DAILY KINGS Administration Furosemide 40 mg 09/07/17 10:00 09/08/17 05:20 Lasix Injection - IVPUSH 40 mg BID@0600,1400 KINGS Administration Heparin Sodium (Porcine) 5,000 unit 09/02/17 06:00 09/08/17 05:20 Heparin - SQ 5,000 unit TID KINGS Administration Propofol 100 mls @ 5.898 mls/hr 09/07/17 07:30 09/08/17 08:34 Diprivan - IVPUSH Not Given TITR KINGS Protocol 10 MCG/KG/MIN Nafcillin Sodium 2 gm/ 100 mls @ 100 mls/hr 09/08/17 10:00 Dextrose IVPB Q4H-IV KINGS Protocol Ibuprofen 800 mg 09/05/17 21:12 09/06/17 20:22 Caldolor Injection - IVPB 800 mg Q6H PRN Administration FEVER Lorazepam 2 mg 09/02/17 05:17 Ativan Injection - IVPUSH Q2H PRN ANXIETY Multivitamins/Minerals 1 each 09/02/17 10:00 09/07/17 09:33 Theragran-M PO 1 each DAILY KINGS Administration Thiamine HCl 100 mg 09/02/17 10:00 09/07/17 09:33 Vitamin B1 - PO 100 mg DAILY KINGS Administration Last Vital Signs Temp Pulse Resp BP Pulse Ox 100.7 F H 86 25 H 150/88 99 09/08/17 06:00 09/08/17 08:00 09/08/17 08:00 09/08/17 08:00 09/07/17 20:15 General sedated CV S1 S2 RRR no murmur/rub/gallop Lungs coarse breath sounds anteriorly Abdomen soft NT/ND Extremities 1+ pitting edema B/L UE CBCD WBC 12.2 K/mm3 (4.0-10.0) H 09/08/17 05:45 RBC 3.20 M/mm3 (4.00-5.60) L 09/08/17 05:45 Hgb 10.1 GM/dL (11.7-16.9) L 09/08/17 05:45 Hct 29.7 % (35.4-49) L 09/08/17 05:45 MCV 92.9 fl (80-96) 09/08/17 05:45 MCHC 34.1 g/dl (32.0-35.9) 09/08/17 05:45 RDW 16.1 % (11.9-15.9) H 09/08/17 05:45 Plt Count 314 K/MM3 (134-434) 09/08/17 05:45 MPV 7.4 fl (7.5-11.1) L 09/08/17 05:45 CMP Sodium 141 mmol/L (136-145) 09/08/17 05:45 Potassium 3.5 mmol/L (3.5-5.1) 09/08/17 05:45 Chloride 105 mmol/L (98-107) 09/08/17 05:45 Carbon Dioxide 25 mmol/L (21-32) 09/08/17 05:45 Anion Gap 11 (8-16) 09/08/17 05:45 BUN 30 mg/dL (7-18) H 09/08/17 05:45 Creatinine 1.3 mg/dL (0.7-1.3) 09/08/17 05:45 Creat Clearance w eGFR > 60 (>60) 09/07/17 05:45 Calcium 7.6 mg/dL (8.5-10.1) L 09/08/17 05:45 Total Bilirubin 1.0 mg/dL (0.2-1.0) D 09/08/17 05:45 AST 54 U/L (15-37) H D 09/08/17 05:45 ALT 15 U/L (12-78) D 09/08/17 05:45 Alkaline Phosphatase 164 U/L (45-117) H D 09/08/17 05:45 Total Protein 6.0 g/dl (6.4-8.2) L 09/08/17 05:45 Albumin 1.3 g/dl (3.4-5.0) L 09/08/17 05:45 Microbiology 09/04/17 08:15 Blood Culture - Preliminary Blood - Peripheral Venous NO GROWTH OBTAINED AFTER 96 HOURS, INCUBATION TO CONTINUE FOR 1 DAYS. 09/04/17 08:00 Blood Culture - Preliminary Blood - Peripheral Venous NO GROWTH OBTAINED AFTER 96 HOURS, INCUBATION TO CONTINUE FOR 1 DAYS. 09/06/17 11:02 Blood Culture - Preliminary Blood - Peripheral Venous Presumptive Mssa (Pbp2a Neg) 09/05/17 21:00 Gram Stain - Final Sputum - Endotrachea Suction/Ventilator Sputum Culture - Preliminary Yeast Like Organism 09/06/17 11:02 Blood Culture - Preliminary Blood - Peripheral Venous NO GROWTH OBTAINED AFTER 24 HOURS, INCUBATION TO CONTINUE FOR 4 DAYS. ASSESSMENT AND PLAN: 66 yo M with PMH of alcohol abuse, HTN who presented to the ER after being found on the floor. 1. Hypotension- due to sepsis due to Bacteremia and possible aspiration PNA-Tm 102.1. continues to have multiple temp spikes. CT chest and abdomen showing loculated pleural effusion. may need chest tube placement and Cx. BCx now showing GPC in clusters. concern for persistent bactermia. may need to r/o endocarditis. abx switched to vanco and zosyn and now back on Nafcillin. cont abx per ID. 2. Acute Hypoxic respiratory failure- s/p intubated on 09/02 after admitted due to tachypnea and hypoxic (not documented with low O2 sat but was on steadily increasing oxygen supplementation RA>NC>[id number]) now on full vent support. titrate down support as tolerated. did not tolearte cpap trial yesterday due to tachypnea. cont sedation vacation. vent management per ICU team 3. Acute transaminitis- likely due to hypotension and ETOH. now improving, cont to monitor 4. Acute ETOH withdrawal- off versed ggt. ativan prn signs of withdrawal. on thiamine/folate/MVI 5. Hypokalemia- resolved 6. Hyponatremia-resolved 7. Normocytic anemia- slight trend down. iron studies from last admission is noted. signs of iron def anemia and anemia of chronic disease. on iron supplementation. no signs of obvious bleeding. trend HgB, txn for Hgb <7 8. Thrombocytopenia- Secondary to alcohol, splenomegaly. now resolved. no signs of active bleeding 9. HTN-currently normotensive off pressors. cont to monitor., 10. Chronic right subdural hematoma 11. DVT ppx- hep sq 12. MICU monitoring The care of this patient involved high complexity decision making to prevent further life threatening deterioration of the patient's condition and/or to evaluate & treat vital organ system(s) failure or risk of failure. 45 mins Visit type - Emergency Visit Emergency Visit: Yes ED Registration Date: 08/31/17 Care time: The patient presented to the Emergency Department on the above date and was hospitalized for further evaluation of their emergent condition. - New Patient This patient is new to me today: No - Critical Care Critical Care patient: Yes Total Critical Care Time (in minutes): 45 Critical Care Statement: The care of this patient involved high complexity decision making to prevent further life threatening deterioration of the patient 's condition and/or to evaluate & treat vital organ system(s) failure or risk of failure. - Discharge Referral Referred to [facility] Med [facility] No
[2017-09-08 09:31] LABS: ALLENS TEST POSITIVE; ART PUNCT SITE RIGHT RADIAL; ARTERIAL BLD GAS O2 SATURATION 97.5 % (90-98.9); ARTERIAL BLOOD GAS PO2 84.2 mmHg (80-100); ARTERIAL BLOOD GAS pH 7.47 (7.35-7.45); PT. ON O2? YES
[2017-09-08 09:32] LABS: LPM/O2% 35; TYPE OF O2 MECH VENT
[2017-09-08 09:33] LABS: MECH. VENT. YES; VENT RATE 25; VT/PRESS 450
[2017-09-08] MEDS: THIAMINE HCL 100 MG TABLET (FP) PO SCH (10:08)
[2017-09-08] MEDS: FERROUS SO4 325 MG TABLET (FP) PO SCH (10:08)
[2017-09-08] MEDS: MULTIVITAMINS THER W-MINERALS COMBO TABLET (FP) PO SCH (10:08)
[2017-09-08] MEDS: NAFCILLIN - 2 GM in DEXTROSE 5%-WATER - 100 ML IVPB SCH ×4 (10:08→21:16)
[2017-09-08] MEDS: FOLIC ACID 1 MG TABLET (FP) PO SCH (10:08)
[2017-09-08] MEDS: BACITRACIN 15 GM TUBE TOPICAL OINTMENT TP SCH (10:09)
[2017-09-08] MEDS: CHLORHEXIDINE GLUCONATE 0.12% 15ML CUP MM SCH ×2 (13:26→21:08)
[2017-09-08] MEDS ORDERED: SODIUM BICARBONATE 8.4% 50 MEQ/50 ML VIAL IV ONE (17:12)
[2017-09-08] MEDS ORDERED: SUCCINYLCHOLINE CHLORIDE 200 MG/10 ML VIAL IVPUSH ONE (17:14)
[2017-09-08] MEDS ORDERED: MIDAZOLAM HCL 5 MG/1 ML Single Dose Vial IVPUSH ONE ×2 (17:14→17:15)
--- NOTE | 2017-09-08 18:21 | PROC ---
Procedure Note Procedure: Procedure Note: Thoracentesis: Consent from daughter placed in chart. R chest prepped and drapped in sterile fashion local anesthesia with 2% lidocaine 20 ga needle introduced into pleural space, 5th intercostal mid axillary line 40cc of clear yellow fluid removed and sent for analysis no blood loss chest x ray ordered. Shun Silva [id number]
[2017-09-08] MEDS ORDERED: PT OWN MED DRAWER 7, Y5N ONE (18:36)
[2017-09-08 19:23] LABS: PLEURAL FLUID APPEARANCE CLOUDY; PLEURAL FLUID COLOR Y
[2017-09-08 19:35] LABS: TOTAL PROTEIN,PLEURAL FLUID 2.828
[2017-09-08 20:43] LABS: PLEURAL FLUID NEUTROPHIL 45 %
[2017-09-08 20:44] LABS: PLEURAL FLUID MACROPHAGES 39 %
[2017-09-08 21:03] LABS: PLEURAL FLUID SOURCE PLEURAL
[2017-09-08] MEDS: IBUPROFEN 800 MG/8 ML IJ IVPB PRN (22:30)
[2017-09-09] MEDS: NAFCILLIN - 2 GM in DEXTROSE 5%-WATER - 100 ML IVPB SCH ×2 (01:46→06:24)
[2017-09-09 05:53] LABS: MCH 31.8 pg (25.7-33.7); MCHC 34.6 g/dl (32.0-35.9); MEAN PLT VOLUME 7.6 fl (7.5-11.1); PLATELET COUNT 249 K/MM3 (134-434); RDW 15.8 % (11.9-15.9); WHITE BLOOD COUNT 10.6 K/mm3 (4.0-10.0)
[2017-09-09 06:09] LABS: ALBUMIN 1.2 g/dl (3.4-5.0); ANION GAP 14 (8-16); CALCIUM 7.4 mg/dL (8.5-10.1); CO2 24 mmol/L (21-32)
[2017-09-09 06:14] LABS: ALK PHOS 147 U/L (45-117); BILIRUBIN,DIRECT 1.8 mg/dL (0.0-0.2); BILIRUBIN,TOTAL 2.9 mg/dL (0.2-1.0); CREATININE 1.5 mg/dL (0.7-1.3); GLUCOSE,RANDOM 118 mg/dL (74-106); LDH 182 U/L (87-241); PHOSPHOROUS 4.9 mg/dL (2.5-4.9); SGOT/AST 42 U/L (15-37); SGPT/ALT 15 U/L (12-78); TOT PROT 5.7 g/dl (6.4-8.2)
[2017-09-09] MEDS: FUROSEMIDE 40 MG/4 ML INJECTABLE VIAL IVPUSH SCH ×2 (06:24→15:11)
[2017-09-09] MEDS: HEPARIN NA (PORCINE) 5,000 UNITS/ML 1ML VIAL SQ SCH ×3 (06:24→21:11)
--- NOTE | 2017-09-09 07:20 | CONSULT ---
Consultation: REQUESTING PROVIDER: CONSULT REQUEST: We have been asked to medically evaluate this patient for sepsis. HISTORY OF PRESENT ILLNESS: Patient has been examined and evaluated at bedside. he is still intubated and sedated. continue to have fever despite antibiotics. has cavitary lung lesions with large pleural effusions. thoracocentesis was done . REVIEW OF SYSTEMS: CONSTITUTIONAL: Absent: fever, chills, diaphoresis, generalized weakness, malaise, loss of appetite, weight change HEENT: Absent: rhinorrhea, nasal congestion, throat pain, throat swelling, difficulty swallowing, mouth swelling, ear pain, eye pain, visual changes CARDIOVASCULAR: Absent: chest pain, syncope, palpitations, irregular heart rate, lightheadedness , peripheral edema RESPIRATORY: Absent: cough, shortness of breath, dyspnea with exertion, orthopnea, wheezing, stridor, hemoptysis GASTROINTESTINAL: Absent: abdominal pain, abdominal distension, nausea, vomiting, diarrhea, constipation, melena, hematochezia GENITOURINARY: Absent: dysuria, frequency, urgency, hesitancy, hematuria, flank pain, genital pain MUSCULOSKELETAL: Absent: myalgia, arthralgia, joint swelling, back pain, neck pain SKIN: Absent: rash, itching, pallor HEMATOLOGIC/IMMUNOLOGIC: Absent: easy bleeding, easy bruising, lymphadenopathy, frequent infections ENDOCRINE: Absent: unexplained weight gain, unexplained weight loss, heat intolerance, cold intolerance NEUROLOGIC: Absent: headache, focal weakness or paresthesias, dizziness, unsteady gait, seizure, mental status changes, bladder or bowel incontinence PSYCHIATRIC: Absent: anxiety, depression, suicidal or homicidal ideation, hallucinations. PHYSICAL EXAMINATION Vital Signs - 24 hr 09/08/17 09/08/17 09/08/17 08:00 09:40 10:00 Temperature 100.6 F H Pulse Rate 86 100 H 88 Respiratory 25 H 30 H 25 H Rate Blood Pressure 150/88 150/86 O2 Sat by Pulse 100 Oximetry (%) 09/08/17 09/08/17 09/08/17 10:41 11:00 11:44 Temperature Pulse Rate Respiratory 30 H 29 H Rate Blood Pressure O2 Sat by Pulse 100 100 Oximetry (%) 09/08/17 09/08/17 09/08/17 12:00 14:00 14:18 Temperature 100.5 F H Pulse Rate 86 89 Respiratory 25 H 28 H 28 H Rate Blood Pressure 143/90 138/78 O2 Sat by Pulse Oximetry (%) 09/08/17 09/08/17 09/08/17 16:00 17:21 18:00 Temperature 101.5 F H 101.8 F H Pulse Rate 93 H 94 H Respiratory 27 H 25 H Rate Blood Pressure 143/77 119/57 O2 Sat by Pulse Oximetry (%) 09/08/17 09/08/17 09/08/17 19:36 20:00 20:26 Temperature Pulse Rate 98 H Respiratory 26 H 30 H 30 H Rate Blood Pressure 152/83 O2 Sat by Pulse Oximetry (%) 09/08/17 09/08/17 09/08/17 20:38 21:38 22:00 Temperature 101.6 F H Pulse Rate 102 H Respiratory 30 H 30 H 26 H Rate Blood Pressure 152/87 O2 Sat by Pulse 100 Oximetry (%) 09/09/17 09/09/17 09/09/17 00:00 00:11 02:00 Temperature 98.9 F 97.6 F Pulse Rate 79 78 Respiratory 25 H 25 H 25 H Rate Blood Pressure 105/59 134/77 O2 Sat by Pulse Oximetry (%) 09/09/17 09/09/17 09/09/17 03:10 04:00 06:00 Temperature 96 F L 96.6 F L Pulse Rate 65 68 Respiratory 28 H 25 H 25 H Rate Blood Pressure 115/73 137/81 O2 Sat by Pulse Oximetry (%) 09/09/17 06:33 Temperature Pulse Rate Respiratory 25 H Rate Blood Pressure O2 Sat by Pulse Oximetry (%) GENERAL: intubated sedated HEAD: Normal with no signs of trauma. EYES: sclera anicteric, conjunctiva clear. No lid lag. EARS, NOSE, THROAT: dry mucous membranes. LUNGS: Bibasilar crackles HEART: irregular rate and rhythm, normal S1 and S2 without murmur, rub or gallop. ABDOMEN: Soft,obese , nontender, not distended, normoactive bowel sounds, no guarding, UPPER EXTREMITIES: 2+ pulses, warm, well-perfused. No cyanosis.+2 peripheral edema. LOWER EXTREMITIES: 2+ pulses, warm, well-perfused. +2 peripheral edema. NEUROLOGICAL: sedated , responds to verbal stimuli SKIN: Warm, dry, no lesions Laboratory Results - last 24 hr 09/08/17 09/08/17 09/09/17 09:30 18:00 05:00 WBC 10.6 H RBC 2.70 L Hgb 8.6 L D Hct 24.8 L D MCV 92.0 MCH 31.8 MCHC 34.6 RDW 15.8 Plt Count 249 D MPV 7.6 Puncture Site Right radial ABG pH 7.47 H ABG pCO2 at Pt Temp 34.6 L ABG pO2 at Pt Temp 84.2 ABG HCO3 25.0 ABG O2 Sat (Measured) 97.5 ABG O2 Content 13.8 L ABG Base Excess 2.0 Anoop Test Positive O2 Delivery Device Mech vent Oxygen Flow Rate 35 Vent Mode A/c Vent Rate 25 Mechanical Rate Yes PEEP 5.0 Pressure Support Vent 450 Sodium Potassium Chloride Carbon Dioxide Anion Gap BUN Creatinine Random Glucose Calcium Phosphorus Magnesium Total Bilirubin Direct Bilirubin AST ALT Alkaline Phosphatase LD Total Total Protein Albumin Pleural Fluid Source Pleural Pleural Color Y Pleural Appearance Cloudy Pleural WBC 2774 Pleural RBC 3644 Pleural Neutrophils 45 Pleural Eosinophils 4 Pleural Macrophages 39 Pleural Mesothelial 12 Pleural Diff Comment Y Pleural Total Protein 2.828 Pleural LDH 299.335 Pleural Glucose 145.310 09/09/17 05:00 WBC RBC Hgb Hct MCV MCH MCHC RDW Plt Count MPV Puncture Site ABG pH ABG pCO2 at Pt Temp ABG pO2 at Pt Temp ABG HCO3 ABG O2 Sat (Measured) ABG O2 Content ABG Base Excess Anoop Test O2 Delivery Device Oxygen Flow Rate Vent Mode Vent Rate Mechanical Rate PEEP Pressure Support Vent Sodium 141 Potassium 3.0 L Chloride 103 Carbon Dioxide 24 Anion Gap 14 BUN 40 H D Creatinine 1.5 H Random Glucose 118 H Calcium 7.4 L Phosphorus 4.9 D Magnesium 2.0 Total Bilirubin 2.9 H D Direct Bilirubin 1.8 H D AST 42 H D ALT 15 Alkaline Phosphatase 147 H LD Total 182 Total Protein 5.7 L Albumin 1.2 L Pleural Fluid Source Pleural Color Pleural Appearance Pleural WBC Pleural RBC Pleural Neutrophils Pleural Eosinophils Pleural Macrophages Pleural Mesothelial Pleural Diff Comment Pleural Total Protein Pleural LDH Pleural Glucose Active Medications Generic Name Dose Route Start Last Admin Trade Name Freq PRN Reason Stop Dose Admin Acetaminophen 650 mg 09/07/17 05:53 09/07/17 14:18 Tylenol - NR 650 mg Q6H PRN Administration FEVER OR PAIN Bacitracin 1 applic 09/02/17 10:00 09/08/17 10:09 Bacitracin - TP 1 applic DAILY KINGS Administration Chlorhexidine Gluconate 15 ml 09/08/17 12:30 09/08/17 21:08 Peridex - MM 15 ml BID KINGS Administration Ferrous Sulfate 325 mg 09/05/17 12:00 09/08/17 10:08 Feosol - PO 325 mg DAILY KINGS Administration Folic Acid 1 mg 09/02/17 10:00 09/08/17 10:08 Folic Acid - PO 1 mg DAILY KINGS Administration Furosemide 40 mg 09/07/17 10:00 09/09/17 06:24 Lasix Injection - IVPUSH 40 mg BID@0600,1400 KINGS Administration Heparin Sodium (Porcine) 5,000 unit 09/02/17 06:00 09/09/17 06:24 Heparin - SQ 5,000 unit TID KINGS Administration Propofol 100 mls @ 5.898 mls/hr 09/07/17 07:30 09/09/17 06:24 Diprivan - IVPUSH 30 mcg/kg/min TITR KINGS Titration Protocol 10 MCG/KG/MIN Nafcillin Sodium 2 gm/ 100 mls @ 100 mls/hr 09/08/17 10:00 09/09/17 06:24 Dextrose IVPB 100 mls/hr Q4H-IV KINGS Administration Protocol Ibuprofen 800 mg 09/05/17 21:12 09/08/17 22:30 Caldolor Injection - IVPB 800 mg Q6H PRN Administration FEVER Lorazepam 2 mg 09/02/17 05:17 Ativan Injection - IVPUSH Q2H PRN ANXIETY Multivitamins/Minerals 1 each 09/02/17 10:00 09/08/17 10:08 Theragran-M PO 1 each DAILY KINGS Administration Thiamine HCl 100 mg 09/02/17 10:00 09/08/17 10:08 Vitamin B1 - PO 100 mg DAILY KINGS Administration ASSESSMENT/PLAN: On Naficiline for MSSA with possible Right side endocarditis LFTs elevated due to Naficline will switch back to Cefazolin Dispo: We will continue to follow the patient. Thank you for this consultative opportunity. Visit type - Emergency Visit Emergency Visit: No - New Patient This patient is new to me today: No - Critical Care Critical Care patient: No Total Critical Care Time (in minutes): 40 Critical Care Statement: The care of this patient involved high complexity decision making to prevent further life threatening deterioration of the patient 's condition and/or to evaluate & treat vital organ system(s) failure or risk of failure.
--- NOTE | 2017-09-09 07:26 | PN ---
Teaching Attending Note Name of Resident: Dominick Kasper ATTENDING PHYSICIAN STATEMENT I saw and evaluated the patient. I reviewed the resident's note and discussed the case with the resident. I agree with the resident's findings and plan as documented. SUBJECTIVE:Remains intubated Now on Nafcillin OBJECTIVE: ASSESSMENT AND PLAN: Selected Entries 09/09/17 09/09/17 06:00 06:33 Temperature 96.6 F L Pulse Rate 68 Respiratory 25 H Rate Blood Pressure 137/81 Weight 210 lb Microbiology 09/01/17 05:00 Blood - Peripheral Venous Blood Culture - Final Staphylococcus Aureus 09/01/17 00:01 Blood - Peripheral Venous Blood Culture - Final Staphylococcus Aureus 09/06/17 11:02 Blood - Peripheral Venous Blood Culture - Preliminary Presumptive Mssa (Pbp2a Neg) Laboratory Tests 09/08/17 09/09/17 09/09/17 18:00 05:00 05:00 WBC 10.6 H RBC 2.70 L Hgb 8.6 L D Plt Count 249 D Total Bilirubin 2.9 H D Direct Bilirubin 1.8 H D AST 42 H D ALT 15 Alkaline Phosphatase 147 H Pleural WBC 2774 Pleural RBC 3644 Pleural Eosinophils 4 Pleural Mesothelial 12 Pleural Total Protein 2.828 Pleural LDH 299.335 Assessment MSSA bacteremia with cavitary PNA effusions whcih does not look like empyema (Clear yellow) On Nafcillin less then 24 hours and already Bili back up again 2.9 Plan Await yesterdays blood cultures Substitute Cefazolin 2 q 8H ALISA discussed wit cardiology Pleural fluid cultures sent Esau EMERY Problem List - Problems (1) Pneumonia Code(s): J18.9 - PNEUMONIA, UNSPECIFIED ORGANISM Qualifiers: Pneumonia type: aspiration pneumonia (2) Respiratory failure with hypoxia Code(s): J96.91 - RESPIRATORY FAILURE, UNSPECIFIED WITH HYPOXIA Qualifiers: Chronicity: acute Qualified Code(s): J96.01 - Acute respiratory failure with hypoxia; J96.01 - Acute respiratory failure with hypoxia; J96.01 - Acute respiratory failure with hypoxia (3) Staphylococcus aureus bacteremia Code(s): R78.81 - BACTEREMIA (5) Endocarditis due to Staphylococcus Code(s): I33.0 - ACUTE AND SUBACUTE INFECTIVE ENDOCARDITIS B95.8 - UNSP STAPHYLOCOCCUS THE CAUSE OF DISEASES CLASSD ELSR
--- NOTE | 2017-09-09 07:29 | PN ---
Physical Exam: 24H Events: yesterday - thoracentesis drained 40cc clear yellow, pleural fluid labs exudative (elevated LDH), Tmax 101.8 ON - no acute events AM - Nafcillin switched to Ancef due to elevated bilirubin s/p 1xdose, Hgb decreased 10.1 --> 8.6 SUBJECTIVE: Patient seen and examined in ICU. Remains on vent, sedated. Off pressors. OBJECTIVE: Vital Signs Period Temp Pulse Resp BP Sys/Jeff Pulse Ox Last 24 Hr 96 F-101.8 F 65-102 25-30 105-152/57-90 100-100 Intake & Output 09/06/17 09/07/17 09/08/17 09/09/17 23:59 23:59 23:59 23:59 Intake Total 1560 2468 2784 Output Total 360 4100 4300 1100 Balance 1200 -1632 -1516 -1100 Weight 98.7 kg 98.3 kg 97.239 kg 95.254 kg GENERAL: intubated, mildly sedated, following verbal commands ENT: moist mucous membranes, ETT, NGT LUNGS: mechanical breath sounds, B/L scattered rhonchi HEART: RRR, normal S1/S2, without murmur, rub, gallop. ABDOMEN: Soft, ntnd, normoactive bowel sounds EXTREMITIES: wwp, UE/LE 1+ edema : hines CBC, BMP 09/09/17 15:40 09/09/17 05:00 Hepatic Panel Total Bilirubin 2.9 mg/dL (0.2-1.0) H D 09/09/17 05:00 Direct Bilirubin 1.8 mg/dL (0.0-0.2) H D 09/09/17 05:00 AST 42 U/L (15-37) H D 09/09/17 05:00 ALT 15 U/L (12-78) 09/09/17 05:00 Alkaline Phosphatase 147 U/L (45-117) H 09/09/17 05:00 Albumin 1.2 g/dl (3.4-5.0) L 09/09/17 05:00 Ca - 7.4 (corrected 9.6) Phos - 4.9 Mg - 2.0 09/08/17 09/09/17 18:00 05:00 LD Total 182 Pleural Fluid Source Pleural Pleural Color Y Pleural Appearance Cloudy Pleural WBC 2774 Pleural RBC 3644 Pleural Neutrophils 45 Pleural Eosinophils 4 Pleural Macrophages 39 Pleural Mesothelial 12 Pleural Diff Comment Y Pleural Total Protein 2.828 Pleural LDH 299.335 Pleural Glucose 145.310 HIV neg Hep A, B, C neg TB quantiferon --> Indeterminate Microbiology 09/06/17 11:02 Blood - Peripheral Venous Blood Culture - Preliminary Staphylococcus Aureus 09/06/17 11:02 Blood - Peripheral Venous Blood Culture - Preliminary NO GROWTH OBTAINED AFTER 72 HOURS, INCUBATION TO CONTINUE FOR 2 DAYS. 09/08/17 18:00 Pleural Fluid AFB Smear Concentration - Preliminary 09/08/17 18:00 Pleural Fluid Mycobacterial Culture - Preliminary 09/04/17 08:15 Blood - Peripheral Venous Blood Culture - Final NO GROWTH AFTER 5 DAYS INCUBATION 09/04/17 08:00 Blood - Peripheral Venous Blood Culture - Final NO GROWTH AFTER 5 DAYS INCUBATION 09/08/17 05:45 Blood - Peripheral Venous Blood Culture - Preliminary NO GROWTH OBTAINED AFTER 24 HOURS, INCUBATION TO CONTINUE FOR 4 DAYS. 09/08/17 05:45 Blood - Peripheral Venous Blood Culture - Preliminary NO GROWTH OBTAINED AFTER 24 HOURS, INCUBATION TO CONTINUE FOR 4 DAYS. 09/05/17 21:00 Sputum - Endotrachea Suction/Ventilator Gram Stain - Final 09/05/17 21:00 Sputum - Endotrachea Suction/Ventilator Sputum Culture - Final Yeast Like Organism 09/06/17 10:20 Stool Clostridium difficile Antigen (KHRIS) - Final 09/06/17 10:20 Stool Clostridium difficile Toxin Assay - Final 09/02/17 00:00 Sputum - Endotracheal Suction W/O Vent Gram Stain - Final 09/02/17 00:00 Sputum - Endotracheal Suction W/O Vent Sputum Culture - Final Yeast Like Organism 09/03/17 12:15 Urine - Urine - Catheterized Urine Culture - Final NO GROWTH OBTAINED 09/01/17 05:00 Blood - Peripheral Venous Blood Culture - Final Staphylococcus Aureus 09/01/17 00:01 Blood - Peripheral Venous Blood Culture - Final Staphylococcus Aureus 09/01/17 15:50 Blood - Peripheral Venous Blood Culture - Final Staphylococcus Aureus 09/01/17 15:55 Blood - Peripheral Venous Blood Culture - Final Staphylococcus Aureus 08/31/17 23:22 Urine - Urine Clean Catch Urine Culture - Final Contaminated: Please Repeat IMAGING: CXR 09/09/17: ETT, NGT in place. stable LLL consolidation, B/L atelectasis and small pleural effusions Current Medications Acetaminophen (Tylenol -) 650 mg NR Q6H PRN PRN Reason: FEVER OR PAIN Last Admin: 09/07/17 14:18 Dose: 650 mg Bacitracin (Bacitracin -) 1 applic TP DAILY [facility] Last Admin: 09/09/17 09:31 Dose: 1 applic Chlorhexidine Gluconate (Peridex -) 15 ml MM BID [facility] Last Admin: 09/09/17 09:30 Dose: 15 ml Ferrous Sulfate (Feosol -) 325 mg PO DAILY [facility] Last Admin: 09/09/17 09:29 Dose: 325 mg Folic Acid (Folic Acid -) 1 mg PO DAILY [facility] Last Admin: 09/09/17 09:28 Dose: 1 mg Furosemide (Lasix Injection -) 40 mg IVPUSH BID@0600,1400 [facility] Last Admin: 09/09/17 15:11 Dose: 40 mg Heparin Sodium (Porcine) (Heparin -) 5,000 unit SQ TID [facility] Last Admin: 09/09/17 15:11 Dose: 5,000 unit Propofol (Diprivan -) 100 mls @ 5.898 mls/hr IVPUSH TITR KINGS; 10 MCG/KG/MIN PRN Reason: Protocol Last Admin: 09/09/17 17:58 Dose: 23.592 mls/hr Cefazolin Sodium/Dextrose (Ancef 2 Gm Premixed Ivpb -) 50 mls @ 100 mls/hr IVPB Q8H-IV KINGS Last Admin: 09/09/17 17:59 Dose: 100 mls/hr Ibuprofen (Caldolor Injection -) 800 mg IVPB Q6H PRN PRN Reason: FEVER Last Admin: 09/09/17 11:32 Dose: 800 mg Lorazepam (Ativan Injection -) 2 mg IVPUSH Q2H PRN PRN Reason: ANXIETY Multivitamins/Minerals (Theragran-M) 1 each PO DAILY [facility] Last Admin: 09/09/17 09:26 Dose: 1 each Thiamine HCl (Vitamin B1 -) 100 mg PO DAILY [facility] Last Admin: 09/09/17 09:26 Dose: 100 mg ASSESSMENT/PLAN: 66yo man with PMH of EtOH abuse and HTN who is admitted for acute hypoxic respiratory failure requiring mechanical ventilation (09/02) and sepsis 2/2 cavitary PNA and MSSA bacteremia. Pt continues to have fever spikes despite antibiotics. There is suspicion for septic emboli with R sided endocarditis. Cardiology considering ALISA to r/o, however would prefer EGD to be performed prior to exclude esophageal varices. #acute hypoxic respiratory failure -Vent management per ICU -SBTs as tolerated -wean sedation as tolerated #sepsis 2/2 cavitary PNA, MSSA bacteremia, A: off pressors, continues to have fever spikes -Abx per ID -Abx switched from Nafcillin --> Cefazolin 500mg IV daily (day 1) -f/u blood cultures -f/u pleural cultures #r/o endocarditis -Cardiology consulted, considering ALISA -GI consulted for EGD to assess for esophageal varices #normotcytic anemia A: Iron studies neg, likely 2/2 acute blood loss from thoracentesis yesterday -Trend H&H -Cont Ferrous Sulfate 325 mg PO DAILY KINGS -f/u evening CBC -Transfuse hgb<7 #ALEXANDRA -Strict I&Os, hines -Avoid nephrotoxic agents #EtOH abuse -Monitor for signs of EtOH withdrawal -Ativan 2mg IV q2h PRN -MVI, thiamine 100mg PO qd, folic acid 1mg PO daily #FEN -Hold IVF -HypoK repleted KCl 40 mEq, f/u BMP pending, replete as needed -Enteral feeds #PPX -DVT - heparin 5000U SQ TID -GI - Pantoprazole 40mg IV daily #Dispo: continue ICU monitoring FULL code d/w Dr. Zakia Salter MD PGY-1 Visit type - Emergency Visit Emergency Visit: No - New Patient This patient is new to me today: Yes Date on this admission: 09/09/17 - Critical Care Critical Care patient: Yes Total Critical Care Time (in minutes): 40 Critical Care Statement: The care of this patient involved high complexity decision making to prevent further life threatening deterioration of the patient 's condition and/or to evaluate & treat vital organ system(s) failure or risk of failure.
[2017-09-09] MEDS: CEFAZOLIN 2 GM/D5W 50 ML IVPB SCH ×2 (09:25→17:59)
[2017-09-09] MEDS: MULTIVITAMINS THER W-MINERALS COMBO TABLET (FP) PO SCH (09:26)
[2017-09-09] MEDS: THIAMINE HCL 100 MG TABLET (FP) PO SCH (09:26)
[2017-09-09] MEDS: FOLIC ACID 1 MG TABLET (FP) PO SCH (09:28)
[2017-09-09] MEDS: FERROUS SO4 325 MG TABLET (FP) PO SCH (09:29)
[2017-09-09] MEDS: CHLORHEXIDINE GLUCONATE 0.12% 15ML CUP MM SCH ×2 (09:30→21:11)
[2017-09-09] MEDS: BACITRACIN 15 GM TUBE TOPICAL OINTMENT TP SCH (09:31)
[2017-09-09 10:41] LABS: ARTERIAL BLD GAS O2 SATURATION 95.7 % (90-98.9); ARTERIAL BLOOD GAS BASE EXCESS 3.2 meq/l (-2-2); ARTERIAL BLOOD GAS HCO3 25.9 meq/L (22-26); ARTERIAL BLOOD GAS PO2 70.4 mmHg (80-100)
[2017-09-09 10:42] LABS: ALLENS TEST POSITIVE; ART PUNCT SITE RIGHT RADIAL; LPM/O2% 30%; MECH. VENT. Y; PT. ON O2? YES; TYPE OF O2 VENT; VENT RATE 25; VT/PRESS 450
--- NOTE | 2017-09-09 11:19 | PN ---
Progress Note, Physician History of Present Illness: Remains on vent off sedation, low grade fever, hemodynamically stable. - Current Medication List Current Medications: Active Medications Acetaminophen (Tylenol -) 650 mg NR Q6H PRN PRN Reason: FEVER OR PAIN Last Admin: 09/07/17 14:18 Dose: 650 mg Bacitracin (Bacitracin -) 1 applic TP DAILY [facility] Last Admin: 09/09/17 09:31 Dose: 1 applic Chlorhexidine Gluconate (Peridex -) 15 ml MM BID [facility] Last Admin: 09/09/17 09:30 Dose: 15 ml Ferrous Sulfate (Feosol -) 325 mg PO DAILY [facility] Last Admin: 09/09/17 09:29 Dose: 325 mg Folic Acid (Folic Acid -) 1 mg PO DAILY [facility] Last Admin: 09/09/17 09:28 Dose: 1 mg Furosemide (Lasix Injection -) 40 mg IVPUSH BID@0600,1400 [facility] Last Admin: 09/09/17 06:24 Dose: 40 mg Heparin Sodium (Porcine) (Heparin -) 5,000 unit SQ TID [facility] Last Admin: 09/09/17 06:24 Dose: 5,000 unit Propofol (Diprivan -) 100 mls @ 5.898 mls/hr IVPUSH TITR [facility]; 10 MCG/KG/MIN PRN Reason: Protocol Last Titration: 09/09/17 06:24 Dose: 30 mcg/kg/min Cefazolin Sodium/Dextrose (Ancef 2 Gm Premixed Ivpb -) 50 mls @ 100 mls/hr IVPB Q8H-IV [facility] Last Admin: 09/09/17 09:25 Dose: 100 mls/hr Ibuprofen (Caldolor Injection -) 800 mg IVPB Q6H PRN PRN Reason: FEVER Last Admin: 09/08/17 22:30 Dose: 800 mg Lorazepam (Ativan Injection -) 2 mg IVPUSH Q2H PRN PRN Reason: ANXIETY Multivitamins/Minerals (Theragran-M) 1 each PO DAILY [facility] Last Admin: 09/09/17 09:26 Dose: 1 each Thiamine HCl (Vitamin B1 -) 100 mg PO DAILY [facility] Last Admin: 09/09/17 09:26 Dose: 100 mg - Objective Vital Signs: Vital Signs Temperature 96.6 F L 09/09/17 06:00 Pulse Rate 88 09/09/17 09:44 Respiratory Rate 31 H 09/09/17 11:07 Blood Pressure 137/81 09/09/17 06:00 O2 Sat by Pulse Oximetry (%) 99 09/09/17 09:45 Cardiovascular: Yes: Regular Rate and Rhythm Respiratory: Yes: Intubated, Mechanically Ventilated, Rhonchi Gastrointestinal: Yes: Abdomen, Obese, Hypoactive Bowel Sounds Edema: No Labs: CBC, BMP 09/09/17 05:00 09/09/17 05:00 INR, PTT INR 0.96 (0.82-1.09) 09/01/17 09:05 - ....Imaging Chest X-ray: Report Reviewed (Stable) Problem List - Problems (1) Hypokalemia Code(s): E87.6 - HYPOKALEMIA (2) Pneumonia Code(s): J18.9 - PNEUMONIA, UNSPECIFIED ORGANISM Qualifiers: Pneumonia type: aspiration pneumonia (3) Respiratory failure with hypoxia Code(s): J96.91 - RESPIRATORY FAILURE, UNSPECIFIED WITH HYPOXIA Qualifiers: Chronicity: acute Qualified Code(s): J96.01 - Acute respiratory failure with hypoxia; J96.01 - Acute respiratory failure with hypoxia; J96.01 - Acute respiratory failure with hypoxia (4) Staphylococcus aureus bacteremia Code(s): R78.81 - BACTEREMIA (5) Withdrawal symptoms, alcohol Code(s): F10.239 - ALCOHOL DEPENDENCE WITH WITHDRAWAL, UNSPECIFIED Qualifiers : Complication of substance-induced condition: uncomplicated Qualified Code(s): F10.230 - Alcohol dependence with withdrawal, uncomplicated; F10.230 - Alcohol dependence with withdrawal, uncomplicated; F10.230 - Alcohol dependence with withdrawal, uncomplicated Assessment/Plan Echo: 09/02/2017 Technical difficult study, prob preserved LV fxn, but can't r/ o RWMA 1. Acute hypoxic respiratory failure, remains intubated/sedated, pulmonary infiltrates/pulmonary edema improving 2. Cavitary pneumonia, MSSA bacteremia suspect septic emboli, post septic shock R/O endocarditis plan for ALISA after EGD to exclude varices 3. Probable diastolic LV dysfunction with congestive heart failure, volume overload, resolving 4. History of alcohol dependence 5. Acute renal insufficiency 6. Anemia PLAN: 1. As outlined in prior notes ALISA to be considered as bacteremia persists, provided that there is no evidence of chronic liver disease with possible varices 2. Continue Lasix 40 bid with close monitoring of renal function, electrolytes and diuretic response 3. Ventilator management as per the critical care team 4. Antibiotics as per ID service, f/u surveillance cultures for clearance including pleural fluid 5. Enteral feeds, DVT and GI prophylaxis, librium taper, sedation holiday, vent wean as tolerated
[2017-09-09] MEDS: IBUPROFEN 800 MG/8 ML IJ IVPB PRN ×2 (11:32→22:05)
--- NOTE | 2017-09-09 12:36 | PN ---
Teaching Attending Note Name of Resident: Lydia Salter ATTENDING PHYSICIAN STATEMENT I saw and evaluated the patient. I reviewed the resident's note and discussed the case with the resident. I agree with the resident's findings and plan as documented. SUBJECTIVE:intubated. resting comfortable OBJECTIVE: Last Vital Signs Temp Pulse Resp BP Pulse Ox 100.8 F H 96 H 31 H 147/75 99 09/09/17 08:00 09/09/17 10:00 09/09/17 11:07 09/09/17 10:00 09/09/17 09:45 Intake & Output 09/06/17 09/07/17 09/08/17 09/09/17 23:59 23:59 23:59 23:59 Intake Total 1560 2468 2784 Output Total 360 4100 4300 Balance 1200 -1632 -1516 Weight 217 lb 9.54 oz 216 lb 11.43 oz 214 lb 6 oz 210 lb General opens eyes to verbal stimuli CV S1 S2 RRR no murmur/rub/gallop Lungs coarse breath sounds anteriorly Abdomen soft NT/ND +BS Extremities 1+ pitting edema B/L UE ASSESSMENT AND PLAN: 66 yo M with PMH of alcohol abuse, HTN who presented to the ER after being found on the floor. 1. Hypotension- due to sepsis due to Bacteremia and possible aspiration PNA-Tm 101.8. continues to have multiple temp spikes. CT chest and abdomen showing loculated pleural effusion. s/p thoracentesis which appears to be exudative in nature consistent with PNA. intermittent BCx with +staph. can likely be suggestive of endocarditis. GI consult to exclude varices so that can proceed with ALISA. abx switched from Naficillin to Cefazolin due to transaminits. cont abx per ID. 2. Acute Hypoxic respiratory failure- s/p intubated on 09/02 after admitted due to tachypnea and hypoxic (not documented with low O2 sat but was on steadily increasing oxygen supplementation RA>NC>NRB) now on full vent support. titrate down support as tolerated. cont sedation vacation. vent management per ICU team 3. Acute transaminitis- likely due to hypotension and ETOH. slightly worse possible due to abx. cont to monitor 4. Acute ETOH withdrawal- off versed ggt. ativan prn signs of withdrawal. on thiamine/folate/MVI 5. Hypokalemia- resolved 6. Hyponatremia-resolved 7. Normocytic anemia- slight trend down. likely due to procedure, now bleeding noted now on exam. will repeat CBC. on iron supplementation. no signs of obvious bleeding. trend HgB, txn for Hgb <7 8. Thrombocytopenia- Secondary to alcohol, splenomegaly. now resolved. no signs of active bleeding 9. HTN-currently normotensive off pressors. cont to monitor., 10. Chronic right subdural hematoma 11. DVT ppx- hep sq 12. MICU monitoring The care of this patient involved high complexity decision making to prevent further life threatening deterioration of the patient's condition and/or to evaluate & treat vital organ system(s) failure or risk of failure. 48 mins
--- NOTE | 2017-09-09 12:49 | PN ---
Teaching Attending Note Name of Resident: Yonathan Lorenzo ATTENDING PHYSICIAN STATEMENT I saw and evaluated the patient. I reviewed the resident's note and discussed the case with the resident. I agree with the resident's findings and plan as documented. SUBJECTIVE: Patient seen and examined in the ICU. Remains intubated and lightly sedated. Able to follow some simple commands. No pressors. Thoracentesis noted: MIxed picture, likely parapneumonic Intake & Output 09/06/17 09/07/17 09/08/17 09/09/17 23:59 23:59 23:59 23:59 Intake Total 1560 2468 2784 Output Total 360 4100 4300 Balance 1200 -1632 -1516 Weight 217 lb 9.54 oz 216 lb 11.43 oz 214 lb 6 oz 210 lb Last Vital Signs Temp Pulse Resp BP Pulse Ox 100.8 F H 96 H 31 H 147/75 99 09/09/17 08:00 09/09/17 10:00 09/09/17 11:07 09/09/17 10:00 09/09/17 09:45 Active Medications Acetaminophen (Tylenol -) 650 mg NR Q6H PRN PRN Reason: FEVER OR PAIN Last Admin: 09/07/17 14:18 Dose: 650 mg Bacitracin (Bacitracin -) 1 applic TP DAILY [facility] Last Admin: 09/09/17 09:31 Dose: 1 applic Chlorhexidine Gluconate (Peridex -) 15 ml MM BID [facility] Last Admin: 09/09/17 09:30 Dose: 15 ml Ferrous Sulfate (Feosol -) 325 mg PO DAILY [facility] Last Admin: 09/09/17 09:29 Dose: 325 mg Folic Acid (Folic Acid -) 1 mg PO DAILY [facility] Last Admin: 09/09/17 09:28 Dose: 1 mg Furosemide (Lasix Injection -) 40 mg IVPUSH BID@0600,1400 [facility] Last Admin: 09/09/17 06:24 Dose: 40 mg Heparin Sodium (Porcine) (Heparin -) 5,000 unit SQ TID [facility] Last Admin: 09/09/17 06:24 Dose: 5,000 unit Propofol (Diprivan -) 100 mls @ 5.898 mls/hr IVPUSH TITR [facility]; 10 MCG/KG/MIN PRN Reason: Protocol Last Titration: 09/09/17 06:24 Dose: 30 mcg/kg/min Cefazolin Sodium/Dextrose (Ancef 2 Gm Premixed Ivpb -) 50 mls @ 100 mls/hr IVPB Q8H-IV [facility] Last Admin: 09/09/17 09:25 Dose: 100 mls/hr Ibuprofen (Caldolor Injection -) 800 mg IVPB Q6H PRN PRN Reason: FEVER Last Admin: 09/09/17 11:32 Dose: 800 mg Lorazepam (Ativan Injection -) 2 mg IVPUSH Q2H PRN PRN Reason: ANXIETY Multivitamins/Minerals (Theragran-M) 1 each PO DAILY [facility] Last Admin: 09/09/17 09:26 Dose: 1 each Thiamine HCl (Vitamin B1 -) 100 mg PO DAILY [facility] Last Admin: 09/09/17 09:26 Dose: 100 mg Gen: Intubated and lightly sedated, able to follow commands Heart: RRR Lung: scattered rhonchi Abd: soft, nontender Ext: + edema Laboratory Results - last 24 hr 09/08/17 09/09/17 09/09/17 18:00 05:00 05:00 WBC 10.6 H RBC 2.70 L Hgb 8.6 L D Hct 24.8 L D MCV 92.0 MCH 31.8 MCHC 34.6 RDW 15.8 Plt Count 249 D MPV 7.6 Puncture Site ABG pH ABG pCO2 at Pt Temp ABG pO2 at Pt Temp ABG HCO3 ABG O2 Sat (Measured) ABG O2 Content ABG Base Excess Anoop Test O2 Delivery Device Oxygen Flow Rate Vent Mode Vent Rate Mechanical Rate PEEP Pressure Support Vent Sodium 141 Potassium 3.0 L Chloride 103 Carbon Dioxide 24 Anion Gap 14 BUN 40 H D Creatinine 1.5 H Random Glucose 118 H Calcium 7.4 L Phosphorus 4.9 D Magnesium 2.0 Total Bilirubin 2.9 H D Direct Bilirubin 1.8 H D AST 42 H D ALT 15 Alkaline Phosphatase 147 H LD Total 182 Total Protein 5.7 L Albumin 1.2 L Pleural Fluid Source Pleural Pleural Color Y Pleural Appearance Cloudy Pleural WBC 2774 Pleural RBC 3644 Pleural Neutrophils 45 Pleural Eosinophils 4 Pleural Macrophages 39 Pleural Mesothelial 12 Pleural Diff Comment Y Pleural Total Protein 2.828 Pleural LDH 299.335 Pleural Glucose 145.310 09/09/17 10:38 WBC RBC Hgb Hct MCV MCH MCHC RDW Plt Count MPV Puncture Site Right radial ABG pH 7.50 H ABG pCO2 at Pt Temp 33.3 L ABG pO2 at Pt Temp 70.4 L ABG HCO3 25.9 ABG O2 Sat (Measured) 95.7 ABG O2 Content 13.0 L ABG Base Excess 3.2 H Anoop Test Positive O2 Delivery Device Vent Oxygen Flow Rate 30% Vent Mode A/c Vent Rate 25 Mechanical Rate Y PEEP 5.0 Pressure Support Vent 450 Sodium Potassium Chloride Carbon Dioxide Anion Gap BUN Creatinine Random Glucose Calcium Phosphorus Magnesium Total Bilirubin Direct Bilirubin AST ALT Alkaline Phosphatase LD Total Total Protein Albumin Pleural Fluid Source Pleural Color Pleural Appearance Pleural WBC Pleural RBC Pleural Neutrophils Pleural Eosinophils Pleural Macrophages Pleural Mesothelial Pleural Diff Comment Pleural Total Protein Pleural LDH Pleural Glucose ASSESSMENT AND PLAN: Acute Hypoxic Respiratory Failure Pneumonia MSSA Bacteremia Septic Shock Alcohol Dependence - ABX per ID - Will hold on further pleural procedures for now - O2 to keep SpO2 >90% - Full sedation vacation: - Spontaneous breathing trials as tolerated - GI evaluation for possible Endoscopy prior to possible ALISA - Enteral feeds - DVT/GI prophylaxis - Lasix as needed Dr Griffin Critical care time spent in reviewing chart, evaluating patient and formulating plan 35 min
[2017-09-09] MEDS ORDERED: POTASSIUM CHLORIDE ORAL LIQUID 20 MEQ/15 ML PO ONE (13:00)
[2017-09-09] MEDS ORDERED: ACETAMINOPHEN 1000 MG/100 ML VIAL (NON FORMULARY) IVPB ONE (15:42)
[2017-09-09 16:13] LABS: MCH 31.3 pg (25.7-33.7); MCHC 34.4 g/dl (32.0-35.9); MEAN PLT VOLUME 7.3 fl (7.5-11.1); PLATELET COUNT 307 K/MM3 (134-434); RDW 15.6 % (11.9-15.9); WHITE BLOOD COUNT 15.8 K/mm3 (4.0-10.0)
[2017-09-09] MEDS: PROPOFOL 100 ML IVPUSH SCH (17:58)
[2017-09-09 19:28] LABS: ANION GAP 12 (8-16); CALCIUM 7.1 mg/dL (8.5-10.1); CO2 24 mmol/L (21-32); CREATININE 1.8 mg/dL (0.7-1.3); GLUCOSE,RANDOM 131 mg/dL (74-106)
[2017-09-09] MEDS ORDERED: POTASSIUM CHLORIDE ORAL LIQUID 20 MEQ/15 ML NGT ONE (20:04)
[2017-09-09] MEDS: PANTOPRAZOLE SODIUM 40 MG VIAL IVPUSH SCH (20:26)
[2017-09-10] MEDS: CEFAZOLIN 2 GM/D5W 50 ML IVPB SCH ×2 (01:04→09:09)
[2017-09-10] MEDS: IBUPROFEN 800 MG/8 ML IJ IVPB PRN (04:56)
[2017-09-10] MEDS: HEPARIN NA (PORCINE) 5,000 UNITS/ML 1ML VIAL SQ SCH ×3 (05:35→21:49)
[2017-09-10] MEDS: FUROSEMIDE 40 MG/4 ML INJECTABLE VIAL IVPUSH SCH ×2 (05:35→13:25)
[2017-09-10 05:41] LABS: MCH 30.8 pg (25.7-33.7); MCHC 33.9 g/dl (32.0-35.9); MEAN CELL VOLUME 90.9 fl (80-96); MEAN PLT VOLUME 7.2 fl (7.5-11.1); PLATELET COUNT 309 K/MM3 (134-434); RDW 15.7 % (11.9-15.9)
[2017-09-10 06:05] LABS: ALBUMIN 1.2 g/dl (3.4-5.0); ALK PHOS 151 U/L (45-117); ANION GAP 16 (8-16); CO2 22 mmol/L (21-32); CREATININE 1.9 mg/dL (0.7-1.3); GLUCOSE,RANDOM 145 mg/dL (74-106); MAGNESIUM 1.8 mg/dL (1.8-2.4); PHOSPHOROUS 4.3 mg/dL (2.5-4.9); SGOT/AST 31 U/L (15-37); SGPT/ALT 9 U/L (12-78)
--- NOTE | 2017-09-10 06:31 | PN ---
Physical Exam: 24H Events: AM - Episode of rapid Afib, HR in 160's, given Cardizem 5mg IVP, converted back to NSR SUBJECTIVE: Patient seen and examined. Patient seen and examined in ICU. Remains on vent, sedated. Off pressors. OBJECTIVE: Vital Signs Period Temp Pulse Resp BP Sys/Jeff Pulse Ox Last 24 Hr 99.8 F-102.2 F 72-129 15-35 103-164/56-88 96-99 Intake & Output 09/07/17 09/08/17 09/09/17 09/10/17 23:59 23:59 23:59 23:59 Intake Total 2468 2784 1726 Output Total 4100 4300 1700 400 Balance -1632 -1516 -1700 1326 Weight 98.3 kg 97.239 kg 95.254 kg 94.665 kg GENERAL: intubated, mildly sedated, following verbal commands ENT: moist mucous membranes, ETT, NGT LUNGS: mechanical breath sounds, B/L scattered rhonchi HEART: RRR, normal S1/S2, without murmur, rub, gallop. ABDOMEN: Soft, ntnd, normoactive bowel sounds EXTREMITIES: wwp, UE/LE 1+ edema : hines, rectal tube CBC, BMP 09/10/17 05:00 09/10/17 05:00 Hepatic Panel Total Bilirubin 1.0 mg/dL (0.2-1.0) D 09/10/17 05:00 Direct Bilirubin 1.8 mg/dL (0.0-0.2) H D 09/09/17 05:00 AST 31 U/L (15-37) D 09/10/17 05:00 ALT 9 U/L (12-78) L D 09/10/17 05:00 Alkaline Phosphatase 151 U/L (45-117) H 09/10/17 05:00 Albumin 1.2 g/dl (3.4-5.0) L 09/10/17 05:00 Ca- 7 (corrected 9.2) Phos - 4.3 Mg - 1.8 Microbiology 09/08/17 18:00 Pleural Fluid MAGI Preparation - pending 09/08/17 18:00 Pleural Fluid Fungal Culture - pending 09/08/17 18:00 Pleural Fluid AFB Smear Concentration - pending 09/08/17 18:00 Pleural Fluid Mycobacterial Culture - pending 09/08/17 18:07 Pleural Fluid Gram Stain - Final - - NEG 09/08/17 18:07 Pleural Fluid Body Fluid Culture - Preliminary NO AEROBIC GROWTH, 24 HRS 09/08/17 05:45 Blood - Peripheral Venous Blood Culture - Preliminary NO GROWTH OBTAINED AFTER 48 HOURS, INCUBATION TO CONTINUE FOR 3 DAYS. 09/08/17 05:45 Blood - Peripheral Venous Blood Culture - Preliminary NO GROWTH OBTAINED AFTER 48 HOURS, INCUBATION TO CONTINUE FOR 3 DAYS. 09/05/17 21:00 Sputum - Endotrachea Suction/Ventilator Sputum Culture - Final Yeast Like Organism 09/06/17 10:20 Stool Clostridium difficile Antigen (KHRIS) - Final - NEG 09/06/17 10:20 Stool Clostridium difficile Toxin Assay - Final - NEG 09/02/17 00:00 Sputum - Endotracheal Suction W/O Vent Sputum Culture - Yeast Like Organism 09/03/17 12:15 Urine - Urine - Catheterized Urine Culture - Final NO GROWTH OBTAINED 09/01/17 05:00 Blood - Peripheral Venous Blood Culture - Final Staphylococcus Aureus 09/01/17 00:01 Blood - Peripheral Venous Blood Culture - Staphylococcus Aureus IMAGING: CXR 09/10/17: ETT, NGT in place. stable LLL consolidation, B/L atelectasis and small pleural effusions Active Medications Acetaminophen (Tylenol -) 650 mg NR Q6H PRN PRN Reason: FEVER OR PAIN Last Admin: 09/10/17 09:07 Dose: 650 mg Bacitracin (Bacitracin -) 1 applic TP DAILY [facility] Last Admin: 09/10/17 09:08 Dose: 1 applic Chlorhexidine Gluconate (Peridex -) 15 ml MM BID [facility] Last Admin: 09/10/17 09:06 Dose: 15 ml Ferrous Sulfate (Feosol -) 325 mg PO DAILY [facility] Last Admin: 09/10/17 09:08 Dose: 325 mg Folic Acid (Folic Acid -) 1 mg PO DAILY [facility] Last Admin: 09/10/17 09:07 Dose: 1 mg Furosemide (Lasix Injection -) 40 mg IVPUSH BID@0600,1400 [facility] Last Admin: 09/10/17 13:25 Dose: 40 mg Heparin Sodium (Porcine) (Heparin -) 5,000 unit SQ TID [facility] Last Admin: 09/10/17 13:25 Dose: 5,000 unit Propofol (Diprivan -) 100 mls @ 5.898 mls/hr IVPUSH TITR [facility]; 10 MCG/KG/MIN PRN Reason: Protocol Last Admin: 09/10/17 13:25 Dose: 13.565 mls/hr Cefazolin Sodium/Dextrose (Ancef 2 Gm Premixed Ivpb -) 50 mls @ 100 mls/hr IVPB Q8H-IV [facility] Last Admin: 09/10/17 09:09 Dose: 100 mls/hr Lorazepam (Ativan Injection -) 2 mg IVPUSH Q2H PRN PRN Reason: ANXIETY Multivitamins/Minerals (Theragran-M) 1 each PO DAILY [facility] Last Admin: 09/10/17 09:07 Dose: 1 each Pantoprazole Sodium (Protonix Iv) 40 mg IVPUSH DAILY [facility] Last Admin: 09/10/17 09:07 Dose: 40 mg Thiamine HCl (Vitamin B1 -) 100 mg PO DAILY [facility] Last Admin: 09/10/17 09:07 Dose: 100 mg ASSESSMENT/PLAN: 66yo man with PMH of EtOH abuse and HTN who is admitted (08/31) for acute hypoxic respiratory failure requiring mechanical ventilation (09/02) and sepsis 2/2 cavitary PNA and MSSA bacteremia. Pt continues to have fever spikes despite antibiotics. Now with multiple loose stools, C dif pending. ICU team reviewed TTE with Cards, and there is high suspicion for endocarditis. EGD (to exclude esophageal varices) and ALISA planned for tomorrow. #acute hypoxic respiratory failure -Vent management per ICU -Daily SBTs as tolerated -wean sedation as tolerated #sepsis 2/2 cavitary PNA, MSSA bacteremia, A: off pressors, continues to have fever spikes -Abx per ID -Abx switched from Nafcillin --> Cefazolin 500mg IV daily (day 2) -f/u blood cultures ([id number]) -f/u pleural cultures (NGTD x24h), AFB/MAGI pending #r/o endocarditis -Cardiology and GI consulted -Plan for EGD and ALISA tomorrow -NPO after midnight #loose stools -f/u C diff Ag and toxin #normotcytic anemia -Trend H&H -Cont Ferrous Sulfate 325 mg PO DAILY [facility] -Transfuse hgb<7 #ALEXANDRA -Strict I&Os, hines #EtOH abuse -Monitor for signs of EtOH withdrawal -Ativan 2mg IV q2h PRN -MVI, thiamine 100mg PO qd, folic acid 1mg PO daily #FEN -Hold IVF -Replete K and Mg -Cont enteral feeds, NPO at midnight #PPX -DVT - heparin 5000U SQ TID -GI - Pantoprazole 40mg IV daily #Dispo: continue ICU monitoring FULL code d/w Dr. Zakia Salter MD PGY-1 Visit type - Emergency Visit Emergency Visit: No - New Patient This patient is new to me today: No - Critical Care Critical Care patient: Yes Total Critical Care Time (in minutes): 40 Critical Care Statement: The care of this patient involved high complexity decision making to prevent further life threatening deterioration of the patient 's condition and/or to evaluate & treat vital organ system(s) failure or risk of failure.
--- NOTE | 2017-09-10 07:38 | CONSULT ---
Consultation: REQUESTING PROVIDER: CONSULT REQUEST: We have been asked to medically evaluate this patient for possible endocarditis. HISTORY OF PRESENT ILLNESS: Patient seen and examined at bedside. sedated intubated. PHYSICAL EXAMINATION Vital Signs - 24 hr 09/09/17 09/09/17 09/09/17 08:00 09:00 09:44 Temperature 100.8 F H Pulse Rate 72 88 Respiratory 15 31 H 32 H Rate Blood Pressure 141/56 O2 Sat by Pulse 99 Oximetry (%) 09/09/17 09/09/17 09/09/17 09:45 10:00 11:07 Temperature Pulse Rate 96 H Respiratory 35 H 28 H 31 H Rate Blood Pressure 147/75 O2 Sat by Pulse 99 Oximetry (%) 09/09/17 09/09/17 09/09/17 12:00 13:30 14:00 Temperature 101.6 F H Pulse Rate 108 H 120 H Respiratory 27 H 33 H 35 H Rate Blood Pressure 164/85 126/76 O2 Sat by Pulse Oximetry (%) 09/09/17 09/09/17 09/09/17 14:55 16:00 17:50 Temperature Pulse Rate 113 H Respiratory 34 H 35 H 33 H Rate Blood Pressure 122/65 O2 Sat by Pulse Oximetry (%) 09/09/17 09/09/17 09/09/17 18:00 19:16 19:45 Temperature 100.6 F H Pulse Rate 103 H Respiratory 33 H 30 H 34 H Rate Blood Pressure 113/65 O2 Sat by Pulse 96 Oximetry (%) 09/09/17 09/09/17 09/09/17 20:00 20:11 21:00 Temperature 101.2 F H 102.2 F H Pulse Rate 95 H Respiratory 25 H 34 H Rate Blood Pressure 140/77 O2 Sat by Pulse 96 Oximetry (%) 09/09/17 09/09/17 09/09/17 21:30 22:00 23:12 Temperature 99.8 F H 100 F H Pulse Rate 104 H Respiratory 32 H 25 H Rate Blood Pressure 154/88 O2 Sat by Pulse Oximetry (%) 09/10/17 09/10/17 09/10/17 00:00 00:05 02:00 Temperature 100.3 F H Pulse Rate 128 H 117 H Respiratory 26 H 29 H 30 H Rate Blood Pressure 103/57 143/78 O2 Sat by Pulse Oximetry (%) 09/10/17 09/10/17 09/10/17 03:00 04:00 05:00 Temperature 101.5 F H Pulse Rate 127 H Respiratory 32 H 28 H 30 H Rate Blood Pressure 122/67 O2 Sat by Pulse Oximetry (%) 09/10/17 09/10/17 06:00 07:05 Temperature 102 F H Pulse Rate 129 H Respiratory 33 H 32 H Rate Blood Pressure 146/81 O2 Sat by Pulse Oximetry (%) GENERAL: intubated , sedated HEAD: Normal with no signs of trauma. EYES: conjunctiva clear. ENT: mois mucous membranes. LUNGS: Intubated B/L coarse crackles, no accessory muscle use. HEART: S1, S2 without murmur, rub or gallop. ABDOMEN: Obese,soft, nontender, nondistended, normoactive bowel sounds, no guarding, no rebound tenderness, EXTREMITIES: 2+ pitting edema. NEUROLOGICAL: sedated SKIN: Warm, dry, no rashes or lesions noted Laboratory Results - last 24 hr 09/09/17 09/09/17 09/09/17 06:15 10:38 15:40 WBC 15.8 H D RBC 3.12 L Hgb 9.8 L D Hct 28.4 L MCV 91.0 MCH 31.3 MCHC 34.4 RDW 15.6 Plt Count 307 D MPV 7.3 L Puncture Site Right radial ABG pH 7.50 H ABG pCO2 at Pt Temp 33.3 L ABG pO2 at Pt Temp 70.4 L ABG HCO3 25.9 ABG O2 Sat (Measured) 95.7 ABG O2 Content 13.0 L ABG Base Excess 3.2 H Anoop Test Positive O2 Delivery Device Vent Oxygen Flow Rate 30% Vent Mode A/c Vent Rate 25 Mechanical Rate Y PEEP 5.0 Pressure Support Vent 450 Sodium 139 Potassium 3.2 L Chloride 103 Carbon Dioxide 24 Anion Gap 12 BUN 45 H Creatinine 1.8 H Creat Clearance w eGFR Random Glucose 131 H Calcium 7.1 L Phosphorus Magnesium Total Bilirubin AST ALT Alkaline Phosphatase Total Protein Albumin 09/10/17 09/10/17 05:00 05:00 WBC 17.0 H RBC 2.92 L Hgb 9.0 L Hct 26.6 L MCV 90.9 MCH 30.8 MCHC 33.9 RDW 15.7 Plt Count 309 MPV 7.2 L Puncture Site ABG pH ABG pCO2 at Pt Temp ABG pO2 at Pt Temp ABG HCO3 ABG O2 Sat (Measured) ABG O2 Content ABG Base Excess Anoop Test O2 Delivery Device Oxygen Flow Rate Vent Mode Vent Rate Mechanical Rate PEEP Pressure Support Vent Sodium 140 Potassium 3.4 L Chloride 102 Carbon Dioxide 22 Anion Gap 16 BUN 48 H Creatinine 1.9 H Creat Clearance w eGFR 35.54 Random Glucose 145 H Calcium 7.0 L Phosphorus 4.3 Magnesium 1.8 Total Bilirubin 1.0 D AST 31 D ALT 9 L D Alkaline Phosphatase 151 H Total Protein 6.0 L Albumin 1.2 L Active Medications Generic Name Dose Route Start Last Admin Trade Name Freq PRN Reason Stop Dose Admin Acetaminophen 650 mg 09/07/17 05:53 09/07/17 14:18 Tylenol - NR 650 mg Q6H PRN Administration FEVER OR PAIN Bacitracin 1 applic 09/02/17 10:00 09/09/17 09:31 Bacitracin - TP 1 applic DAILY [facility] Administration Chlorhexidine Gluconate 15 ml 09/08/17 12:30 09/09/17 21:11 Peridex - MM 15 ml BID [facility] Administration Ferrous Sulfate 325 mg 09/05/17 12:00 09/09/17 09:29 Feosol - PO 325 mg DAILY [facility] Administration Folic Acid 1 mg 09/02/17 10:00 09/09/17 09:28 Folic Acid - PO 1 mg DAILY [facility] Administration Furosemide 40 mg 09/07/17 10:00 09/10/17 05:35 Lasix Injection - IVPUSH 40 mg BID@0600,1400 [facility] Administration Heparin Sodium (Porcine) 5,000 unit 09/02/17 06:00 09/10/17 05:35 Heparin - SQ 5,000 unit TID [facility] Administration Propofol 100 mls @ 5.898 mls/hr 09/07/17 07:30 09/10/17 05:57 Diprivan - IVPUSH 38.99 mcg/kg/min TITR [facility] Titration Protocol 10 MCG/KG/MIN Cefazolin Sodium/Dextrose 50 mls @ 100 mls/hr 09/09/17 10:00 09/10/17 01:04 Ancef 2 Gm Premixed Ivpb - IVPB 100 mls/hr Q8H-IV [facility] Administration Ibuprofen 800 mg 09/05/17 21:12 09/10/17 04:56 Caldolor Injection - IVPB 800 mg Q6H PRN Administration FEVER Lorazepam 2 mg 09/02/17 05:17 Ativan Injection - IVPUSH Q2H PRN ANXIETY Multivitamins/Minerals 1 each 09/02/17 10:00 09/09/17 09:26 Theragran-M PO 1 each DAILY [facility] Administration Pantoprazole Sodium 40 mg 09/09/17 18:45 09/09/17 20:26 Protonix Iv IVPUSH 40 mg DAILY [facility] Administration Thiamine HCl 100 mg 09/02/17 10:00 09/09/17 09:26 Vitamin B1 - PO 100 mg DAILY [facility] Administration Microbiology 09/08/17 18:07 Pleural Fluid Gram Stain - Final 09/08/17 05:45 Blood - Peripheral Venous Blood Culture - Preliminary NO GROWTH OBTAINED AFTER 48 HOURS, INCUBATION TO CONTINUE FOR 3 DAYS. 09/08/17 05:45 Blood - Peripheral Venous Blood Culture - Preliminary NO GROWTH OBTAINED AFTER 48 HOURS, INCUBATION TO CONTINUE FOR 3 DAYS. 09/06/17 11:02 Blood - Peripheral Venous Blood Culture - Preliminary Staphylococcus Aureus 09/06/17 11:02 Blood - Peripheral Venous Blood Culture - Preliminary NO GROWTH OBTAINED AFTER 72 HOURS, INCUBATION TO CONTINUE FOR 2 DAYS. 09/08/17 18:00 Pleural Fluid AFB Smear Concentration - Preliminary 09/08/17 18:00 Pleural Fluid Mycobacterial Culture - Preliminary 09/04/17 08:15 Blood - Peripheral Venous Blood Culture - Final NO GROWTH AFTER 5 DAYS INCUBATION 09/04/17 08:00 Blood - Peripheral Venous Blood Culture - Final NO GROWTH AFTER 5 DAYS INCUBATION ASSESSMENT AND PLAN: persistent MSSA bacteremia- endocarditis continue cefazolin check stool cdiff f/u cultures will d/w pulmonary-?drain effusions consider thoracic evaluation ALISA repeat blood cultures today Respiratory failure- fiO2 unchanged new Afib history ETOH use Dispo: We will continue to follow the patient. Thank you for this consultative opportunity. Visit type - Emergency Visit Emergency Visit: Yes ED Registration Date: 08/31/17 Care time: The patient presented to the Emergency Department on the above date and was hospitalized for further evaluation of their emergent condition. - New Patient This patient is new to me today: No - Critical Care Critical Care patient: Yes Total Critical Care Time (in minutes): 40 Critical Care Statement: The care of this patient involved high complexity decision making to prevent further life threatening deterioration of the patient 's condition and/or to evaluate & treat vital organ system(s) failure or risk of failure.
[2017-09-10] MEDS ORDERED: METOPROLOL TARTRATE 5 MG/5 ML VIAL IVPUSH ONE (07:53)
[2017-09-10] MEDS ORDERED: dilTIAZem HCL 125 MG/25 ML - 25 ML VIAL ONE (08:29)
[2017-09-10] MEDS: CHLORHEXIDINE GLUCONATE 0.12% 15ML CUP MM SCH ×2 (09:06→21:50)
[2017-09-10] MEDS: PROPOFOL 100 ML IVPUSH SCH ×3 (09:06→18:22)
[2017-09-10] MEDS ORDERED: dilTIAZem HCL 50 MG/10 ML - 10 ML VIAL IVPUSH ONE (09:07)
[2017-09-10] MEDS: MULTIVITAMINS THER W-MINERALS COMBO TABLET (FP) PO SCH (09:07)
[2017-09-10] MEDS: ACETAMINOPHEN 325 MG TABLET (FP) NR PRN ×2 (09:07→21:50)
[2017-09-10] MEDS: FOLIC ACID 1 MG TABLET (FP) PO SCH (09:07)
[2017-09-10] MEDS: THIAMINE HCL 100 MG TABLET (FP) PO SCH (09:07)
[2017-09-10] MEDS: PANTOPRAZOLE SODIUM 40 MG VIAL IVPUSH SCH (09:07)
[2017-09-10] MEDS: FERROUS SO4 325 MG TABLET (FP) PO SCH (09:08)
[2017-09-10] MEDS: BACITRACIN 15 GM TUBE TOPICAL OINTMENT TP SCH (09:08)
--- NOTE | 2017-09-10 09:33 | PN ---
Teaching Attending Note Name of Resident: Dominick Kasper ATTENDING PHYSICIAN STATEMENT I saw and evaluated the patient. I reviewed the resident's note and discussed the case with the resident. I agree with the resident's findings and plan as documented. SUBJECTIVE: nurse reports diarrhea overnight now with rectal tube persistent fevers afib earlier today no central lines no pressors intubated sedated OBJECTIVE: Vital Signs Period Temp Pulse Resp BP Sys/Jeff Pulse Ox Last 24 Hr 99.8 F-102.2 F 88-168 25-35 103-164/57-88 96-99 cor-rrr lungs decreased bs at bases abd soft, decreased bs +scrotal edema no sacral ulcers ext +edema CBC, BMP 09/10/17 05:00 09/10/17 05:00 Microbiology 09/08/17 18:07 Pleural Fluid Gram Stain - Final 09/08/17 05:45 Blood - Peripheral Venous Blood Culture - Preliminary NO GROWTH OBTAINED AFTER 48 HOURS, INCUBATION TO CONTINUE FOR 3 DAYS. 09/08/17 05:45 Blood - Peripheral Venous Blood Culture - Preliminary NO GROWTH OBTAINED AFTER 48 HOURS, INCUBATION TO CONTINUE FOR 3 DAYS. 09/06/17 11:02 Blood - Peripheral Venous Blood Culture - Preliminary Staphylococcus Aureus 09/06/17 11:02 Blood - Peripheral Venous Blood Culture - Preliminary NO GROWTH OBTAINED AFTER 72 HOURS, INCUBATION TO CONTINUE FOR 2 DAYS. 09/08/17 18:00 Pleural Fluid AFB Smear Concentration - Preliminary 09/08/17 18:00 Pleural Fluid Mycobacterial Culture - Preliminary 09/04/17 08:15 Blood - Peripheral Venous Blood Culture - Final NO GROWTH AFTER 5 DAYS INCUBATION 09/04/17 08:00 Blood - Peripheral Venous Blood Culture - Final NO GROWTH AFTER 5 DAYS INCUBATION ASSESSMENT AND PLAN: persistent MSSA bacteremia- endocarditis continue cefazolin check stool cdiff f/u cultures will d/w pulmonary-?drain effusions consider thoracic evaluation ALISA repeat blood cultures today Respiratory failure- fiO2 unchanged new Afib history ETOH use chart reviewd d/w teaching medicine and ICU team overall 40 minutes spent in reviewing the chart/formulating care for this critically ill ICU patient
--- NOTE | 2017-09-10 10:14 | PN ---
Progress Note, Physician Chief Complaint: Events noted Episode of AF with RVR early this am and was given IV Cardizem - now converted to sinus tachycardia, but hypotensive Remains intubated on vent support History of Present Illness: Discussed with Aerodynamics Teacher regarding current critical clinical status Febrile Echocardiography is to be repeated today - Current Medication List Current Medications: Active Medications Acetaminophen (Tylenol -) 650 mg NR Q6H PRN PRN Reason: FEVER OR PAIN Last Admin: 09/10/17 09:07 Dose: 650 mg Bacitracin (Bacitracin -) 1 applic TP DAILY [facility] Last Admin: 09/10/17 09:08 Dose: 1 applic Chlorhexidine Gluconate (Peridex -) 15 ml MM BID [facility] Last Admin: 09/10/17 09:06 Dose: 15 ml Ferrous Sulfate (Feosol -) 325 mg PO DAILY [facility] Last Admin: 09/10/17 09:08 Dose: 325 mg Folic Acid (Folic Acid -) 1 mg PO DAILY [facility] Last Admin: 09/10/17 09:07 Dose: 1 mg Furosemide (Lasix Injection -) 40 mg IVPUSH BID@0600,1400 [facility] Last Admin: 09/10/17 05:35 Dose: 40 mg Heparin Sodium (Porcine) (Heparin -) 5,000 unit SQ TID [facility] Last Admin: 09/10/17 05:35 Dose: 5,000 unit Propofol (Diprivan -) 100 mls @ 5.898 mls/hr IVPUSH TITR [facility]; 10 MCG/KG/MIN PRN Reason: Protocol Last Admin: 09/10/17 09:06 Dose: 13.565 mls/hr Cefazolin Sodium/Dextrose (Ancef 2 Gm Premixed Ivpb -) 50 mls @ 100 mls/hr IVPB Q8H-IV [facility] Last Admin: 09/10/17 09:09 Dose: 100 mls/hr Ibuprofen (Caldolor Injection -) 800 mg IVPB Q6H PRN PRN Reason: FEVER Last Admin: 09/10/17 04:56 Dose: 800 mg Lorazepam (Ativan Injection -) 2 mg IVPUSH Q2H PRN PRN Reason: ANXIETY Multivitamins/Minerals (Theragran-M) 1 each PO DAILY [facility] Last Admin: 09/10/17 09:07 Dose: 1 each Pantoprazole Sodium (Protonix Iv) 40 mg IVPUSH DAILY [facility] Last Admin: 09/10/17 09:07 Dose: 40 mg Thiamine HCl (Vitamin B1 -) 100 mg PO DAILY [facility] Last Admin: 09/10/17 09:07 Dose: 100 mg - Objective Vital Signs: Vital Signs Temperature 102 F H 09/10/17 06:00 Pulse Rate 164 H 09/10/17 08:25 Respiratory Rate 34 H 09/10/17 07:30 Blood Pressure 132/60 09/10/17 07:30 O2 Sat by Pulse Oximetry (%) 96 09/09/17 20:11 Currently heart rate 102 bpm BP 90/56 mmHg to 119/65 mmHg Cardiovascular: Yes: Regular Rate and Rhythm, Tachycardia, S1, S2 Respiratory: Yes: Diminished, Mechanically Ventilated, Rhonchi Gastrointestinal: Yes: Normal Bowel Sounds, Soft. No: Tenderness Edema: No Labs: CBC, BMP 09/10/17 05:00 09/10/17 05:00 Laboratory Results - last 24 hr 09/09/17 09/09/17 09/10/17 06:15 15:40 05:00 WBC 15.8 H D 17.0 H RBC 3.12 L 2.92 L Hgb 9.8 L D 9.0 L Hct 28.4 L 26.6 L MCV 91.0 90.9 MCH 31.3 30.8 MCHC 34.4 33.9 RDW 15.6 15.7 Plt Count 307 D 309 MPV 7.3 L 7.2 L Sodium 139 Potassium 3.2 L Chloride 103 Carbon Dioxide 24 Anion Gap 12 BUN 45 H Creatinine 1.8 H Creat Clearance w eGFR Random Glucose 131 H Calcium 7.1 L Phosphorus Magnesium Total Bilirubin AST ALT Alkaline Phosphatase Total Protein Albumin 09/10/17 05:00 WBC RBC Hgb Hct MCV MCH MCHC RDW Plt Count MPV Sodium 140 Potassium 3.4 L Chloride 102 Carbon Dioxide 22 Anion Gap 16 BUN 48 H Creatinine 1.9 H Creat Clearance w eGFR 35.54 Random Glucose 145 H Calcium 7.0 L Phosphorus 4.3 Magnesium 1.8 Total Bilirubin 1.0 D AST 31 D ALT 9 L D Alkaline Phosphatase 151 H Total Protein 6.0 L Albumin 1.2 L Assessment/Plan 1. Acute hypoxic respiratory failure, remains intubated/sedated, pulmonary infiltrates/pulmonary edema improving 2. Cavitary pneumonia, MSSA bacteremia suspect septic emboli, post septic shock , suspect endocarditis plan for ALISA after EGD to exclude varices 3. Probable diastolic LV dysfunction with congestive heart failure, volume overload, resolving 4. History of alcohol dependence 5. Acute renal insufficiency 6. Anemia PLAN: 1. As outlined in prior notes ALISA to be considered as bacteremia persists. Evidence of chronic liver disease with possible varices is to be ruled out prior to ALISA. IN the interim, transthoracic echocardiography is to be repeated ( previous study was suboptimal and valves could not be adequately visualized) GI evaluation to follow. 2. Continue Lasix 40 bid with close monitoring of renal function and electrolytes 3. Ventilator management as per the critical care team 4. Antibiotics as per ID service 5. Enteral feeds, DVT and GI prophylaxis and librium taper as tolerated Critical Further plans are to follow Jordon Gtz MD
--- NOTE | 2017-09-10 11:55 | PN ---
Teaching Attending Note Name of Resident: Tejal Ortiz ATTENDING PHYSICIAN STATEMENT I saw and evaluated the patient. I reviewed the resident's note and discussed the case with the resident. I agree with the resident's findings and plan as documented. SUBJECTIVE: Patient seen and examined in the ICU. Remains intubated and sedated. 102 fever. No pressors. AC Mode of vent 30% FiO2. Intake & Output 09/07/17 09/08/17 09/09/17 09/10/17 23:59 23:59 23:59 23:59 Intake Total 2468 2784 1726 Output Total 4100 4300 1700 400 Balance -1632 -1516 -1700 1326 Weight 216 lb 11.43 oz 214 lb 6 oz 210 lb 208 lb 11.2 oz Last Vital Signs Temp Pulse Resp BP Pulse Ox 101.2 F H 105 H 34 H 88/52 99 09/10/17 10:00 09/10/17 10:00 09/10/17 10:00 09/10/17 10:00 09/10/17 09:35 Active Medications Acetaminophen (Tylenol -) 650 mg NR Q6H PRN PRN Reason: FEVER OR PAIN Last Admin: 09/10/17 09:07 Dose: 650 mg Bacitracin (Bacitracin -) 1 applic TP DAILY [facility] Last Admin: 09/10/17 09:08 Dose: 1 applic Chlorhexidine Gluconate (Peridex -) 15 ml MM BID [facility] Last Admin: 09/10/17 09:06 Dose: 15 ml Ferrous Sulfate (Feosol -) 325 mg PO DAILY [facility] Last Admin: 09/10/17 09:08 Dose: 325 mg Folic Acid (Folic Acid -) 1 mg PO DAILY [facility] Last Admin: 09/10/17 09:07 Dose: 1 mg Furosemide (Lasix Injection -) 40 mg IVPUSH BID@0600,1400 [facility] Last Admin: 09/10/17 05:35 Dose: 40 mg Heparin Sodium (Porcine) (Heparin -) 5,000 unit SQ TID [facility] Last Admin: 09/10/17 05:35 Dose: 5,000 unit Propofol (Diprivan -) 100 mls @ 5.898 mls/hr IVPUSH TITR [facility]; 10 MCG/KG/MIN PRN Reason: Protocol Last Admin: 09/10/17 09:06 Dose: 13.565 mls/hr Cefazolin Sodium/Dextrose (Ancef 2 Gm Premixed Ivpb -) 50 mls @ 100 mls/hr IVPB Q8H-IV [facility] Last Admin: 09/10/17 09:09 Dose: 100 mls/hr Lorazepam (Ativan Injection -) 2 mg IVPUSH Q2H PRN PRN Reason: ANXIETY Multivitamins/Minerals (Theragran-M) 1 each PO DAILY [facility] Last Admin: 09/10/17 09:07 Dose: 1 each Pantoprazole Sodium (Protonix Iv) 40 mg IVPUSH DAILY [facility] Last Admin: 09/10/17 09:07 Dose: 40 mg Thiamine HCl (Vitamin B1 -) 100 mg PO DAILY [facility] Last Admin: 09/10/17 09:07 Dose: 100 mg Gen: Intubated and sedated Heart: RRR Lung: bilateral scattered rhonchi Abd: soft, nontender Ext: + edema Laboratory Results - last 24 hr 09/09/17 09/09/17 09/10/17 06:15 15:40 05:00 WBC 15.8 H D 17.0 H RBC 3.12 L 2.92 L Hgb 9.8 L D 9.0 L Hct 28.4 L 26.6 L MCV 91.0 90.9 MCH 31.3 30.8 MCHC 34.4 33.9 RDW 15.6 15.7 Plt Count 307 D 309 MPV 7.3 L 7.2 L Sodium 139 Potassium 3.2 L Chloride 103 Carbon Dioxide 24 Anion Gap 12 BUN 45 H Creatinine 1.8 H Creat Clearance w eGFR Random Glucose 131 H Calcium 7.1 L Phosphorus Magnesium Total Bilirubin AST ALT Alkaline Phosphatase Total Protein Albumin 09/10/17 05:00 WBC RBC Hgb Hct MCV MCH MCHC RDW Plt Count MPV Sodium 140 Potassium 3.4 L Chloride 102 Carbon Dioxide 22 Anion Gap 16 BUN 48 H Creatinine 1.9 H Creat Clearance w eGFR 35.54 Random Glucose 145 H Calcium 7.0 L Phosphorus 4.3 Magnesium 1.8 Total Bilirubin 1.0 D AST 31 D ALT 9 L D Alkaline Phosphatase 151 H Total Protein 6.0 L Albumin 1.2 L ASSESSMENT AND PLAN: Acute Hypoxic Respiratory Failure Pneumonia MSSA Bacteremia Septic Shock Alcohol Dependence - ABX per ID - Repeat TTE - O2 to keep SpO2 >90% - Sedation vacations - Spontaneous breathing trials as tolerated when awake - GI evaluation for possible Endoscopy prior to possible ALISA - Enteral feeds - DVT/GI prophylaxis - Lasix as needed - May need to transfer to tertiary care Dr Griffin Critical care time spent in reviewing chart, evaluating patient and formulating plan 35 min
--- NOTE | 2017-09-10 12:05 | HP ---
CHIEF COMPLAINT: PCP: HISTORY OF PRESENT ILLNESS: ER course was notable for: (1) (2) (3) Recent Travel: PAST MEDICAL HISTORY: PAST SURGICAL HISTORY: Social History: Smoking: Alcohol: Drugs: Family History: Allergies No Known Allergies Allergy (Verified 07/16/17 15:34) HOME MEDICATIONS: Home Medications Medication Instructions Recorded Unobtainable [Unobtainable] 08/31/17 REVIEW OF SYSTEMS CONSTITUTIONAL: Absent: fever, chills, diaphoresis, generalized weakness, malaise, loss of appetite, weight change HEENT: Absent: rhinorrhea, nasal congestion, throat pain, throat swelling, difficulty swallowing, mouth swelling, ear pain, eye pain, visual changes CARDIOVASCULAR: Absent: chest pain, syncope, palpitations, irregular heart rate, lightheadedness , peripheral edema RESPIRATORY: Absent: cough, shortness of breath, dyspnea with exertion, orthopnea, wheezing, stridor, hemoptysis GASTROINTESTINAL: Absent: abdominal pain, abdominal distension, nausea, vomiting, diarrhea, constipation, melena, hematochezia GENITOURINARY: Absent: dysuria, frequency, urgency, hesitancy, hematuria, flank pain, genital pain MUSCULOSKELETAL: Absent: myalgia, arthralgia, joint swelling, back pain, neck pain SKIN: Absent: rash, itching, pallor HEMATOLOGIC/IMMUNOLOGIC: Absent: easy bleeding, easy bruising, lymphadenopathy, frequent infections ENDOCRINE: Absent: unexplained weight gain, unexplained weight loss, heat intolerance, cold intolerance NEUROLOGIC: Absent: headache, focal weakness or paresthesias, dizziness, unsteady gait, seizure, mental status changes, bladder or bowel incontinence PSYCHIATRIC: Absent: anxiety, depression, suicidal or homicidal ideation, hallucinations. PHYSICAL EXAMINATION Vital Signs - 24 hr 09/09/17 09/09/17 09/09/17 13:30 14:00 14:55 Temperature 101.6 F H Pulse Rate 120 H Respiratory 33 H 35 H 34 H Rate Blood Pressure 126/76 O2 Sat by Pulse Oximetry (%) 09/09/17 09/09/17 09/09/17 16:00 17:50 18:00 Temperature 100.6 F H Pulse Rate 113 H 103 H Respiratory 35 H 33 H 33 H Rate Blood Pressure 122/65 113/65 O2 Sat by Pulse Oximetry (%) 09/09/17 09/09/17 09/09/17 19:16 19:45 20:00 Temperature 101.2 F H Pulse Rate 95 H Respiratory 30 H 34 H 25 H Rate Blood Pressure 140/77 O2 Sat by Pulse 96 Oximetry (%) 09/09/17 09/09/17 09/09/17 20:11 21:00 21:30 Temperature 102.2 F H Pulse Rate Respiratory 34 H 32 H Rate Blood Pressure O2 Sat by Pulse 96 Oximetry (%) 09/09/17 09/09/17 09/10/17 22:00 23:12 00:00 Temperature 99.8 F H 100 F H Pulse Rate 104 H 128 H Respiratory 25 H 26 H Rate Blood Pressure 154/88 103/57 O2 Sat by Pulse Oximetry (%) 09/10/17 09/10/17 09/10/17 00:05 02:00 03:00 Temperature 100.3 F H Pulse Rate 117 H Respiratory 29 H 30 H 32 H Rate Blood Pressure 143/78 O2 Sat by Pulse Oximetry (%) 09/10/17 09/10/17 09/10/17 04:00 05:00 06:00 Temperature 101.5 F H 102 F H Pulse Rate 127 H 129 H Respiratory 28 H 30 H 33 H Rate Blood Pressure 122/67 146/81 O2 Sat by Pulse Oximetry (%) 09/10/17 09/10/17 09/10/17 07:05 07:30 08:25 Temperature Pulse Rate 168 H 164 H Respiratory 32 H 34 H Rate Blood Pressure 132/60 O2 Sat by Pulse Oximetry (%) 09/10/17 09/10/17 09/10/17 09:00 09:25 09:35 Temperature Pulse Rate Respiratory 36 H Rate Blood Pressure O2 Sat by Pulse 100 99 Oximetry (%) 09/10/17 09/10/17 10:00 11:55 Temperature 101.2 F H Pulse Rate 105 H Respiratory 34 H 28 H Rate Blood Pressure 88/52 O2 Sat by Pulse Oximetry (%) GENERAL: Awake, alert, and fully oriented, in no acute distress. HEAD: Normal with no signs of trauma. EYES: Pupils equal, round and reactive to light, extraocular movements intact, sclera anicteric, conjunctiva clear. No lid lag. EARS, NOSE, THROAT: Ears normal, nares patent, oropharynx clear without exudates. Moist mucous membranes. NECK: Normal range of motion, supple without lymphadenopathy, JVD, or masses. LUNGS: Breath sounds equal, clear to auscultation bilaterally. No wheezes, and no crackles. No accessory muscle use. HEART: Regular rate and rhythm, normal S1 and S2 without murmur, rub or gallop. ABDOMEN: Soft, nontender, not distended, normoactive bowel sounds, no guarding, no rebound, no masses. No hepatomegaly or splenomegaly. MUSCULOSKELETAL: Normal range of motion at all joints. No bony deformities or tenderness. No CVA tenderness. UPPER EXTREMITIES: 2+ pulses, warm, well-perfused. No cyanosis. No clubbing. No peripheral edema. LOWER EXTREMITIES: 2+ pulses, warm, well-perfused. No calf tenderness. No peripheral edema. NEUROLOGICAL: Cranial nerves II-XII intact. Normal speech. Normal gait. PSYCHIATRIC: Cooperative. Good eye contact. Appropriate mood and affect. SKIN: Warm, dry, normal turgor, no rashes or lesions noted, normal capillary refill. Laboratory Results - last 24 hr 09/09/17 09/09/17 09/10/17 06:15 15:40 05:00 WBC 15.8 H D 17.0 H RBC 3.12 L 2.92 L Hgb 9.8 L D 9.0 L Hct 28.4 L 26.6 L MCV 91.0 90.9 MCH 31.3 30.8 MCHC 34.4 33.9 RDW 15.6 15.7 Plt Count 307 D 309 MPV 7.3 L 7.2 L Sodium 139 Potassium 3.2 L Chloride 103 Carbon Dioxide 24 Anion Gap 12 BUN 45 H Creatinine 1.8 H Creat Clearance w eGFR Random Glucose 131 H Calcium 7.1 L Phosphorus Magnesium Total Bilirubin AST ALT Alkaline Phosphatase Total Protein Albumin 09/10/17 05:00 WBC RBC Hgb Hct MCV MCH MCHC RDW Plt Count MPV Sodium 140 Potassium 3.4 L Chloride 102 Carbon Dioxide 22 Anion Gap 16 BUN 48 H Creatinine 1.9 H Creat Clearance w eGFR 35.54 Random Glucose 145 H Calcium 7.0 L Phosphorus 4.3 Magnesium 1.8 Total Bilirubin 1.0 D AST 31 D ALT 9 L D Alkaline Phosphatase 151 H Total Protein 6.0 L Albumin 1.2 L ASSESSMENT/PLAN:
--- NOTE | 2017-09-10 12:08 | CON.GI ---
Consult Consult Specialty:: GI Referred by:: Service Reason for Consultation:: suspected esophageal varices - History of Present Illness History of Present Illness: Chart reviewed. GI was asked to evaluate for possible EV prior to ALISA to r/o bacterial endocarditis in a continuously febrile patient. The patient is on ventilator, sedated and not on vasopressors. Fed via NGT. As per records there is history of alcohol abuse and rehab. A recent CT abdomen and pelvis w/o contrast showed liver and spleen to be an upper limit of normal . Liver chemistry, ALP and bilirubin during this admission have been fluctuating ranging from normal to mild elevation. Platelet count, PT/INR have been normal. - History Source History Provided By: Medical Record Limitations to Obtaining History: Clinical Condition - Past Medical History Cardio/Vascular: Yes: HTN Musculoskeletal: Yes: Other (left rib pain ) Additional Medical History: chronic alcoholism with multiple detox and rehabs in the past.most recent at [facility] x 12 months - states he began drinking immediately after d/c . - Alcohol/Substance Use Hx Alcohol Use: Yes Number of Drinks Daily: 8 (He states he drinks about 8 16oz drinks per day) - Smoking History Smoking history: Former smoker Have you smoked in the past 12 months: No If you are a former smoker, when did you quit?: 42 years ago - Social History ADL: Independent Home Medications - Allergies Allergies/Adverse Reactions: Allergies Allergy/AdvReac Type Severity Reaction Status Date / Time No Known Allergies Allergy Verified 07/16/17 15:34 - Home Medications Home Medications: Ambulatory Orders Unobtainable [Unobtainable] 08/31/17 Review of Systems Unable to obtain ROS, reason: please see H&P. Physical Exam-GI Vital Signs: Vital Signs Temperature 101.2 F H 09/10/17 10:00 Pulse Rate 105 H 09/10/17 10:00 Respiratory Rate 28 H 09/10/17 11:55 Blood Pressure 88/52 09/10/17 10:00 O2 Sat by Pulse Oximetry (%) 99 09/10/17 09:35 Vital Signs (72 hours) 09/07/17 09/07/17 09/07/17 13:56 14:16 16:00 Temperature 101.6 F H Pulse Rate 87 85 Respiratory 30 H 32 H 30 H Rate Blood Pressure 147/87 148/69 O2 Sat by Pulse Oximetry (%) 09/07/17 09/07/17 09/07/17 17:42 18:00 19:25 Temperature 101.2 F H Pulse Rate 89 Respiratory 29 H 30 H 32 H Rate Blood Pressure 160/80 O2 Sat by Pulse Oximetry (%) 09/07/17 09/07/17 09/07/17 20:00 20:09 20:15 Temperature 101.5 F H Pulse Rate 95 H Respiratory 25 H 5 L 26 H Rate Blood Pressure 144/82 O2 Sat by Pulse 99 99 Oximetry (%) 09/07/17 09/07/17 09/08/17 22:00 22:19 00:00 Temperature 102 F H 101.2 F H Pulse Rate 95 H 83 Respiratory 25 H 26 H 27 H Rate Blood Pressure 122/74 130/69 O2 Sat by Pulse Oximetry (%) 09/08/17 09/08/17 09/08/17 00:04 02:00 03:25 Temperature 100.8 F H Pulse Rate 80 Respiratory 25 H 26 H 26 H Rate Blood Pressure 143/80 O2 Sat by Pulse Oximetry (%) 09/08/17 09/08/17 09/08/17 04:00 06:00 06:30 Temperature 101 F H 100.7 F H Pulse Rate 81 84 Respiratory 26 H 25 H 25 H Rate Blood Pressure 151/85 136/86 O2 Sat by Pulse Oximetry (%) 09/08/17 09/08/17 09/08/17 07:00 08:00 09:40 Temperature Pulse Rate 86 100 H Respiratory 30 H 25 H 30 H Rate Blood Pressure 150/88 O2 Sat by Pulse 100 100 Oximetry (%) 09/08/17 09/08/17 09/08/17 10:00 10:41 11:00 Temperature 100.6 F H Pulse Rate 88 Respiratory 25 H 30 H Rate Blood Pressure 150/86 O2 Sat by Pulse 100 100 Oximetry (%) 09/08/17 09/08/17 09/08/17 11:44 12:00 14:00 Temperature 100.5 F H Pulse Rate 86 89 Respiratory 29 H 25 H 28 H Rate Blood Pressure 143/90 138/78 O2 Sat by Pulse Oximetry (%) 09/08/17 09/08/17 09/08/17 14:18 16:00 17:21 Temperature 101.5 F H Pulse Rate 93 H Respiratory 28 H 27 H Rate Blood Pressure 143/77 O2 Sat by Pulse Oximetry (%) 09/08/17 09/08/17 09/08/17 18:00 19:36 20:00 Temperature 101.8 F H Pulse Rate 94 H 98 H Respiratory 25 H 26 H 30 H Rate Blood Pressure 119/57 152/83 O2 Sat by Pulse Oximetry (%) 09/08/17 09/08/17 09/08/17 20:26 20:38 21:38 Temperature Pulse Rate Respiratory 30 H 30 H 30 H Rate Blood Pressure O2 Sat by Pulse 100 Oximetry (%) 09/08/17 09/09/17 09/09/17 22:00 00:00 00:11 Temperature 101.6 F H 98.9 F Pulse Rate 102 H 79 Respiratory 26 H 25 H 25 H Rate Blood Pressure 152/87 105/59 O2 Sat by Pulse Oximetry (%) 09/09/17 09/09/17 09/09/17 02:00 03:10 04:00 Temperature 97.6 F 96 F L Pulse Rate 78 65 Respiratory 25 H 28 H 25 H Rate Blood Pressure 134/77 115/73 O2 Sat by Pulse Oximetry (%) 09/09/17 09/09/17 09/09/17 06:00 06:33 08:00 Temperature 96.6 F L 100.8 F H Pulse Rate 68 72 Respiratory 25 H 25 H 15 Rate Blood Pressure 137/81 141/56 O2 Sat by Pulse Oximetry (%) 09/09/17 09/09/17 09/09/17 09:00 09:44 09:45 Temperature Pulse Rate 88 Respiratory 31 H 32 H 35 H Rate Blood Pressure O2 Sat by Pulse 99 99 Oximetry (%) 09/09/17 09/09/17 09/09/17 10:00 11:07 12:00 Temperature Pulse Rate 96 H 108 H Respiratory 28 H 31 H 27 H Rate Blood Pressure 147/75 164/85 O2 Sat by Pulse Oximetry (%) 09/09/17 09/09/17 09/09/17 13:30 14:00 14:55 Temperature 101.6 F H Pulse Rate 120 H Respiratory 33 H 35 H 34 H Rate Blood Pressure 126/76 O2 Sat by Pulse Oximetry (%) 09/09/17 09/09/17 09/09/17 16:00 17:50 18:00 Temperature 100.6 F H Pulse Rate 113 H 103 H Respiratory 35 H 33 H 33 H Rate Blood Pressure 122/65 113/65 O2 Sat by Pulse Oximetry (%) 09/09/17 09/09/17 09/09/17 19:16 19:45 20:00 Temperature 101.2 F H Pulse Rate 95 H Respiratory 30 H 34 H 25 H Rate Blood Pressure 140/77 O2 Sat by Pulse 96 Oximetry (%) 09/09/17 09/09/17 09/09/17 20:11 21:00 21:30 Temperature 102.2 F H Pulse Rate Respiratory 34 H 32 H Rate Blood Pressure O2 Sat by Pulse 96 Oximetry (%) 09/09/17 09/09/17 09/10/17 22:00 23:12 00:00 Temperature 99.8 F H 100 F H Pulse Rate 104 H 128 H Respiratory 25 H 26 H Rate Blood Pressure 154/88 103/57 O2 Sat by Pulse Oximetry (%) 09/10/17 09/10/17 09/10/17 00:05 02:00 03:00 Temperature 100.3 F H Pulse Rate 117 H Respiratory 29 H 30 H 32 H Rate Blood Pressure 143/78 O2 Sat by Pulse Oximetry (%) 09/10/17 09/10/17 09/10/17 04:00 05:00 06:00 Temperature 101.5 F H 102 F H Pulse Rate 127 H 129 H Respiratory 28 H 30 H 33 H Rate Blood Pressure 122/67 146/81 O2 Sat by Pulse Oximetry (%) 09/10/17 09/10/17 09/10/17 07:05 07:30 08:25 Temperature Pulse Rate 168 H 164 H Respiratory 32 H 34 H Rate Blood Pressure 132/60 O2 Sat by Pulse Oximetry (%) 09/10/17 09/10/17 09/10/17 09:00 09:25 09:35 Temperature Pulse Rate Respiratory 36 H Rate Blood Pressure O2 Sat by Pulse 100 99 Oximetry (%) 09/10/17 09/10/17 10:00 11:55 Temperature 101.2 F H Pulse Rate 105 H Respiratory 34 H 28 H Rate Blood Pressure 88/52 O2 Sat by Pulse Oximetry (%) Gastrointestinal Inspection: Yes: Distention. No: Ascites ...Auscultate: Yes: Hyperactive Bowel Sounds ...Palpate: Yes: Soft. No: Firm/Rigid, Mass, Pulsatile Mass Neurological: Yes: Other (sedated) Labs: CBC, BMP 09/10/17 05:00 09/10/17 05:00 INR, PTT INR 0.96 (0.82-1.09) 09/01/17 09:05 Laboratory Tests 08/31/17 08/31/17 08/31/17 12:59 13:05 13:22 WBC RBC Hgb Hct MCV MCH MCHC RDW Plt Count MPV Total Counted Neutrophils % Neutrophils % (Manual) Band Neuts % (Manual) Lymphocytes % Lymphocytes % (Manual) Monocytes % Monocytes % (Manual) Eosinophils % Eosinophils % (Manual) Basophils % Myelocytes % (Man) Platelet Estimate Platelet Comment Anisocytosis Microcytosis ESR PT with INR INR PTT (Actin FS) Anticoagulation Therapy Puncture Site ABG pH ABG pCO2 at Pt Temp ABG pO2 at Pt Temp ABG HCO3 ABG O2 Sat (Measured) ABG O2 Content ABG Base Excess Anoop Test O2 Delivery Device Oxygen Flow Rate Vent Mode Vent Rate Mechanical Rate PEEP Pressure Support Vent Sodium Potassium Chloride Carbon Dioxide Anion Gap BUN Creatinine Creat Clearance w eGFR POC Glucometer [id number] Random Glucose Lactic Acid Calcium Phosphorus Magnesium Total Bilirubin Direct Bilirubin AST ALT Alkaline Phosphatase LD Total Creatine Kinase Creatine Kinase Index CK-MB (CK-2) Troponin I C-Reactive Protein Total Protein Albumin Triglycerides Cholesterol Total LDL Cholesterol HDL Cholesterol Total Amylase Lipase Urine Color Urine Appearance Urine pH Ur Specific [place] Urine Protein Urine Glucose (UA) Urine Ketones Urine Blood Urine Nitrite Urine Bilirubin Urine Urobilinogen Ur Leukocyte Esterase Urine RBC Urine WBC Ur Epithelial Cells Urine Bacteria Hyaline Casts Granular Casts Urine Mucus Urine Osmolality Ur Random Sodium Pleural Fluid Source Pleural Color Pleural Appearance Pleural WBC Pleural RBC Pleural Neutrophils Pleural Eosinophils Pleural Macrophages Pleural Mesothelial Pleural Diff Comment Pleural Total Protein Pleural LDH Pleural Glucose Random Vancomycin Vancomycin Pre-Dose Alcohol, Quantitative Hepatitis A IgM Ab Hep Bs Antigen Hep B Core IgM Ab Hepatitis C Ab (EIA) HIV 1&2 Antibody Screen HIV P24 Antigen TB Test (QFT) Indeterminate Blood Type O NEGATIVE Antibody Screen Negative 08/31/17 08/31/17 08/31/17 13:40 13:40 13:40 WBC 11.3 H D RBC 4.32 D Hgb 13.5 D Hct 39.9 D MCV 92.4 MCH 31.1 MCHC 33.7 RDW 14.6 Plt Count 101 L D MPV 8.5 D Total Counted Neutrophils % 83.4 H Neutrophils % (Manual) Band Neuts % (Manual) Lymphocytes % 1.9 L D Lymphocytes % (Manual) Monocytes % 14.6 H Monocytes % (Manual) Eosinophils % 0.0 D Eosinophils % (Manual) Basophils % 0.1 Myelocytes % (Man) Platelet Estimate Platelet Comment Anisocytosis Microcytosis ESR PT with INR 12.10 H INR 1.07 PTT (Actin FS) Anticoagulation Therapy Puncture Site ABG pH ABG pCO2 at Pt Temp ABG pO2 at Pt Temp ABG HCO3 ABG O2 Sat (Measured) ABG O2 Content ABG Base Excess Anoop Test O2 Delivery Device Oxygen Flow Rate Vent Mode Vent Rate Mechanical Rate PEEP Pressure Support Vent Sodium 125 L Potassium 2.6 L* D Chloride 85 L D Carbon Dioxide 23 D Anion Gap 17 H BUN 27 H D Creatinine 1.4 H D Creat Clearance w eGFR 50.55 POC Glucometer Random Glucose 121 H D Lactic Acid Calcium 8.3 L Phosphorus Magnesium Total Bilirubin 1.1 H Direct Bilirubin AST 149 H D ALT 164 H D Alkaline Phosphatase 75 D LD Total Creatine Kinase 846 H Creatine Kinase Index 0.4 CK-MB (CK-2) 4.023 H Troponin I 0.03 D C-Reactive Protein Total Protein 7.2 Albumin 2.5 L Triglycerides Cholesterol Total LDL Cholesterol HDL Cholesterol Total Amylase Lipase 200 Urine Color Urine Appearance Urine pH Ur Specific [place] Urine Protein Urine Glucose (UA) Urine Ketones Urine Blood Urine Nitrite Urine Bilirubin Urine Urobilinogen Ur Leukocyte Esterase Urine RBC Urine WBC Ur Epithelial Cells Urine Bacteria Hyaline Casts Granular Casts Urine Mucus Urine Osmolality Ur Random Sodium Pleural Fluid Source Pleural Color Pleural Appearance Pleural WBC Pleural RBC Pleural Neutrophils Pleural Eosinophils Pleural Macrophages Pleural Mesothelial Pleural Diff Comment Pleural Total Protein Pleural LDH Pleural Glucose Random Vancomycin Vancomycin Pre-Dose Alcohol, Quantitative Hepatitis A IgM Ab Hep Bs Antigen Hep B Core IgM Ab Hepatitis C Ab (EIA) HIV 1&2 Antibody Screen HIV P24 Antigen TB Test (QFT) Blood Type Antibody Screen 08/31/17 08/31/17 08/31/17 13:40 19:50 19:50 WBC RBC Hgb Hct MCV MCH MCHC RDW Plt Count MPV Total Counted Neutrophils % Neutrophils % (Manual) Band Neuts % (Manual) Lymphocytes % Lymphocytes % (Manual) Monocytes % Monocytes % (Manual) Eosinophils % Eosinophils % (Manual) Basophils % Myelocytes % (Man) Platelet Estimate Platelet Comment Anisocytosis Microcytosis ESR PT with INR INR PTT (Actin FS) Anticoagulation Therapy Puncture Site ABG pH ABG pCO2 at Pt Temp ABG pO2 at Pt Temp ABG HCO3 ABG O2 Sat (Measured) ABG O2 Content ABG Base Excess Anoop Test O2 Delivery Device Oxygen Flow Rate Vent Mode Vent Rate Mechanical Rate PEEP Pressure Support Vent Sodium 128 L Potassium 3.1 L Chloride 92 L Carbon Dioxide 26 Anion Gap 10 BUN 27 H Creatinine 1.3 Creat Clearance w eGFR 55.06 POC Glucometer Random Glucose 110 H Lactic Acid Calcium 7.5 L Phosphorus 2.6 Magnesium 1.9 Total Bilirubin 0.8 D Direct Bilirubin AST 111 H D ALT 120 H D Alkaline Phosphatase 63 LD Total Creatine Kinase Creatine Kinase Index CK-MB (CK-2) Troponin I C-Reactive Protein Total Protein 6.0 L Albumin 2.1 L Triglycerides Cholesterol Total LDL Cholesterol HDL Cholesterol Total Amylase Lipase Urine Color Urine Appearance Urine pH Ur Specific [place] Urine Protein Urine Glucose (UA) Urine Ketones Urine Blood Urine Nitrite Urine Bilirubin Urine Urobilinogen Ur Leukocyte Esterase Urine RBC Urine WBC Ur Epithelial Cells Urine Bacteria Hyaline Casts Granular Casts Urine Mucus Urine Osmolality Ur Random Sodium Pleural Fluid Source Pleural Color Pleural Appearance Pleural WBC Pleural RBC Pleural Neutrophils Pleural Eosinophils Pleural Macrophages Pleural Mesothelial Pleural Diff Comment Pleural Total Protein Pleural LDH Pleural Glucose Random Vancomycin Vancomycin Pre-Dose Alcohol, Quantitative < 5.0 Hepatitis A IgM Ab Hep Bs Antigen Hep B Core IgM Ab Hepatitis C Ab (EIA) HIV 1&2 Antibody Screen HIV P24 Antigen TB Test (QFT) Blood Type Antibody Screen 08/31/17 08/31/17 09/01/17 21:45 23:22 02:11 WBC 8.7 RBC 3.45 L D Hgb 10.8 L D Hct 32.1 L D MCV 93.1 MCH 31.4 MCHC 33.8 RDW 14.8 Plt Count 79 L D MPV 8.5 Total Counted 100 Neutrophils % 67.0 Neutrophils % (Manual) Band Neuts % (Manual) Lymphocytes % 11.0 D Lymphocytes % (Manual) Monocytes % 21.0 H Monocytes % (Manual) Eosinophils % Eosinophils % (Manual) Basophils % Myelocytes % (Man) 1 Platelet Estimate Mod decreased Platelet Comment No clumping noted Anisocytosis 1+ Microcytosis 1+ ESR PT with INR INR PTT (Actin FS) Anticoagulation Therapy Puncture Site ABG pH ABG pCO2 at Pt Temp ABG pO2 at Pt Temp ABG HCO3 ABG O2 Sat (Measured) ABG O2 Content ABG Base Excess Anoop Test O2 Delivery Device Oxygen Flow Rate Vent Mode Vent Rate Mechanical Rate PEEP Pressure Support Vent Sodium Potassium Chloride Carbon Dioxide Anion Gap BUN Creatinine Creat Clearance w eGFR POC Glucometer Random Glucose Lactic Acid 1.1 Calcium Phosphorus Magnesium Total Bilirubin Direct Bilirubin AST ALT Alkaline Phosphatase LD Total Creatine Kinase Creatine Kinase Index CK-MB (CK-2) Troponin I C-Reactive Protein Total Protein Albumin Triglycerides Cholesterol Total LDL Cholesterol HDL Cholesterol Total Amylase Lipase Urine Color Yellow Urine Appearance Slcloudy Urine pH 6.0 Ur Specific [place] 1.025 Urine Protein 2+ H Urine Glucose (UA) Negative Urine Ketones Negative Urine Blood 3+ H Urine Nitrite Negative Urine Bilirubin Negative Urine Urobilinogen Negative Ur Leukocyte Esterase Negative Urine RBC 1 Urine WBC 4 Ur Epithelial Cells Urine Bacteria Hyaline Casts 6 Granular Casts Urine Mucus Rare Urine Osmolality Ur Random Sodium Pleural Fluid Source Pleural Color Pleural Appearance Pleural WBC Pleural RBC Pleural Neutrophils Pleural Eosinophils Pleural Macrophages Pleural Mesothelial Pleural Diff Comment Pleural Total Protein Pleural LDH Pleural Glucose Random Vancomycin Vancomycin Pre-Dose Alcohol, Quantitative Hepatitis A IgM Ab Hep Bs Antigen Hep B Core IgM Ab Hepatitis C Ab (EIA) HIV 1&2 Antibody Screen HIV P24 Antigen TB Test (QFT) Blood Type Antibody Screen 09/01/17 09/01/17 09/01/17 02:11 02:11 02:11 WBC RBC Hgb Hct MCV MCH MCHC RDW Plt Count MPV Total Counted Neutrophils % Neutrophils % (Manual) Band Neuts % (Manual) Lymphocytes % Lymphocytes % (Manual) Monocytes % Monocytes % (Manual) Eosinophils % Eosinophils % (Manual) Basophils % Myelocytes % (Man) Platelet Estimate Platelet Comment Anisocytosis Microcytosis ESR PT with INR 12.00 H INR 1.06 PTT (Actin FS) 26.4 L Anticoagulation Therapy Puncture Site ABG pH ABG pCO2 at Pt Temp ABG pO2 at Pt Temp ABG HCO3 ABG O2 Sat (Measured) ABG O2 Content ABG Base Excess Anoop Test O2 Delivery Device Oxygen Flow Rate Vent Mode Vent Rate Mechanical Rate PEEP Pressure Support Vent Sodium 133 L Potassium 2.8 L* Chloride 100 Carbon Dioxide 22 Anion Gap 11 BUN 24 H Creatinine 1.2 Creat Clearance w eGFR > 60 POC Glucometer Random Glucose 101 Lactic Acid 1.2 Calcium 7.2 L Phosphorus Magnesium Total Bilirubin 0.8 Direct Bilirubin AST 84 H D ALT 91 H D Alkaline Phosphatase 55 LD Total Creatine Kinase Creatine Kinase Index CK-MB (CK-2) Troponin I C-Reactive Protein Total Protein 5.1 L Albumin 1.8 L Triglycerides Cholesterol Total LDL Cholesterol HDL Cholesterol Total Amylase Lipase Urine Color Urine Appearance Urine pH Ur Specific [place] Urine Protein Urine Glucose (UA) Urine Ketones Urine Blood Urine Nitrite Urine Bilirubin Urine Urobilinogen Ur Leukocyte Esterase Urine RBC Urine WBC Ur Epithelial Cells Urine Bacteria Hyaline Casts Granular Casts Urine Mucus Urine Osmolality Ur Random Sodium Pleural Fluid Source Pleural Color Pleural Appearance Pleural WBC Pleural RBC Pleural Neutrophils Pleural Eosinophils Pleural Macrophages Pleural Mesothelial Pleural Diff Comment Pleural Total Protein Pleural LDH Pleural Glucose Random Vancomycin Vancomycin Pre-Dose Alcohol, Quantitative Hepatitis A IgM Ab Hep Bs Antigen Hep B Core IgM Ab Hepatitis C Ab (EIA) HIV 1&2 Antibody Screen HIV P24 Antigen TB Test (QFT) Blood Type Antibody Screen 09/01/17 09/01/17 09/01/17 05:30 05:30 08:10 WBC RBC Hgb Hct MCV MCH MCHC RDW Plt Count MPV Total Counted Neutrophils % Neutrophils % (Manual) Band Neuts % (Manual) Lymphocytes % Lymphocytes % (Manual) Monocytes % Monocytes % (Manual) Eosinophils % Eosinophils % (Manual) Basophils % Myelocytes % (Man) Platelet Estimate Platelet Comment Anisocytosis Microcytosis ESR PT with INR INR PTT (Actin FS) Anticoagulation Therapy Puncture Site Right radial ABG pH 7.38 ABG pCO2 at Pt Temp 32.4 L ABG pO2 at Pt Temp 102.0 H ABG HCO3 18.8 L ABG O2 Sat (Measured) 98.2 ABG O2 Content 15.7 ABG Base Excess -5.0 L Anoop Test Positive O2 Delivery Device Ventimask Oxygen Flow Rate 50% Vent Mode Vent Rate Mechanical Rate PEEP 0.0 Pressure Support Vent Sodium Potassium Chloride Carbon Dioxide Anion Gap BUN Creatinine Creat Clearance w eGFR POC Glucometer Random Glucose Lactic Acid Calcium Phosphorus Magnesium Total Bilirubin Direct Bilirubin AST ALT Alkaline Phosphatase LD Total Creatine Kinase Creatine Kinase Index CK-MB (CK-2) Troponin I C-Reactive Protein Total Protein Albumin Triglycerides Cholesterol Total LDL Cholesterol HDL Cholesterol Total Amylase Lipase Urine Color Dkyellow Urine Appearance Cloudy Urine pH 5.0 Ur Specific [place] 1.020 Urine Protein 2+ H Urine Glucose (UA) Negative Urine Ketones Negative Urine Blood 2+ H Urine Nitrite Negative Urine Bilirubin Negative Urine Urobilinogen Negative Ur Leukocyte Esterase Negative Urine RBC 3 Urine WBC 7 Ur Epithelial Cells Urine Bacteria Hyaline Casts Granular Casts 17 Urine Mucus Rare Urine Osmolality Ur Random Sodium 7 Pleural Fluid Source Pleural Color Pleural Appearance Pleural WBC Pleural RBC Pleural Neutrophils Pleural Eosinophils Pleural Macrophages Pleural Mesothelial Pleural Diff Comment Pleural Total Protein Pleural LDH Pleural Glucose Random Vancomycin Vancomycin Pre-Dose Alcohol, Quantitative Hepatitis A IgM Ab Hep Bs Antigen Hep B Core IgM Ab Hepatitis C Ab (EIA) HIV 1&2 Antibody Screen HIV P24 Antigen TB Test (QFT) Blood Type Antibody Screen 09/01/17 09/01/17 09/01/17 09:05 09:05 09:05 WBC 8.8 RBC 3.67 L Hgb 11.4 L Hct 33.8 L MCV 92.0 MCH 30.9 MCHC 33.6 RDW 14.6 Plt Count 82 L MPV 8.4 Total Counted 100 Neutrophils % No Result Required. Neutrophils % (Manual) 82 Band Neuts % (Manual) 3 Lymphocytes % No Result Required. Lymphocytes % (Manual) 2 L Monocytes % Monocytes % (Manual) 12 H Eosinophils % Eosinophils % (Manual) 1 Basophils % Myelocytes % (Man) Platelet Estimate Decreased Platelet Comment No clumping noted Anisocytosis Microcytosis ESR PT with INR 10.90 INR 0.96 PTT (Actin FS) 27.1 Anticoagulation Therapy Puncture Site ABG pH ABG pCO2 at Pt Temp ABG pO2 at Pt Temp ABG HCO3 ABG O2 Sat (Measured) ABG O2 Content ABG Base Excess Anoop Test O2 Delivery Device Oxygen Flow Rate Vent Mode Vent Rate Mechanical Rate PEEP Pressure Support Vent Sodium 133 L Potassium 3.4 L D Chloride 102 Carbon Dioxide 20 L Anion Gap 11 BUN 25 H Creatinine 1.1 Creat Clearance w eGFR POC Glucometer Random Glucose 88 Lactic Acid Calcium 7.4 L Phosphorus 2.4 L Magnesium 2.2 Total Bilirubin Direct Bilirubin AST ALT Alkaline Phosphatase LD Total Creatine Kinase Creatine Kinase Index CK-MB (CK-2) Troponin I C-Reactive Protein Total Protein Albumin Triglycerides 181 H Cholesterol 90 Total LDL Cholesterol 15 HDL Cholesterol 19 L Total Amylase Lipase Urine Color Urine Appearance Urine pH Ur Specific [place] Urine Protein Urine Glucose (UA) Urine Ketones Urine Blood Urine Nitrite Urine Bilirubin Urine Urobilinogen Ur Leukocyte Esterase Urine RBC Urine WBC Ur Epithelial Cells Urine Bacteria Hyaline Casts Granular Casts Urine Mucus Urine Osmolality Ur Random Sodium Pleural Fluid Source Pleural Color Pleural Appearance Pleural WBC Pleural RBC Pleural Neutrophils Pleural Eosinophils Pleural Macrophages Pleural Mesothelial Pleural Diff Comment Pleural Total Protein Pleural LDH Pleural Glucose Random Vancomycin Vancomycin Pre-Dose Alcohol, Quantitative Hepatitis A IgM Ab Hep Bs Antigen Hep B Core IgM Ab Hepatitis C Ab (EIA) HIV 1&2 Antibody Screen HIV P24 Antigen TB Test (QFT) Blood Type Antibody Screen 09/01/17 09/01/17 09/01/17 09:05 09:05 09:05 WBC RBC Hgb Hct MCV MCH MCHC RDW Plt Count MPV Total Counted Neutrophils % Neutrophils % (Manual) Band Neuts % (Manual) Lymphocytes % Lymphocytes % (Manual) Monocytes % Monocytes % (Manual) Eosinophils % Eosinophils % (Manual) Basophils % Myelocytes % (Man) Platelet Estimate Platelet Comment Anisocytosis Microcytosis ESR PT with INR INR PTT (Actin FS) Anticoagulation Therapy Puncture Site ABG pH ABG pCO2 at Pt Temp ABG pO2 at Pt Temp ABG HCO3 ABG O2 Sat (Measured) ABG O2 Content ABG Base Excess Anoop Test O2 Delivery Device Oxygen Flow Rate Vent Mode Vent Rate Mechanical Rate PEEP Pressure Support Vent Sodium 131 L Potassium 3.4 L Chloride 101 Carbon Dioxide 20 L Anion Gap 10 BUN 24 H Creatinine 1.2 Creat Clearance w eGFR > 60 POC Glucometer Random Glucose 88 Lactic Acid 1.4 Calcium 7.5 L Phosphorus Magnesium Total Bilirubin 0.9 Direct Bilirubin AST 100 H ALT 91 H Alkaline Phosphatase 68 D LD Total Creatine Kinase Creatine Kinase Index CK-MB (CK-2) Troponin I C-Reactive Protein Total Protein 5.4 L Albumin 1.7 L Triglycerides Cholesterol Total LDL Cholesterol HDL Cholesterol Total Amylase Lipase Urine Color Urine Appearance Urine pH Ur Specific [place] Urine Protein Urine Glucose (UA) Urine Ketones Urine Blood Urine Nitrite Urine Bilirubin Urine Urobilinogen Ur Leukocyte Esterase Urine RBC Urine WBC Ur Epithelial Cells Urine Bacteria Hyaline Casts Granular Casts Urine Mucus Urine Osmolality Ur Random Sodium Pleural Fluid Source Pleural Color Pleural Appearance Pleural WBC Pleural RBC Pleural Neutrophils Pleural Eosinophils Pleural Macrophages Pleural Mesothelial Pleural Diff Comment Pleural Total Protein Pleural LDH Pleural Glucose Random Vancomycin Vancomycin Pre-Dose Alcohol, Quantitative Hepatitis A IgM Ab Negative Hep Bs Antigen Negative Hep B Core IgM Ab Negative Hepatitis C Ab (EIA) <0.1 HIV 1&2 Antibody Screen HIV P24 Antigen TB Test (QFT) Blood Type Antibody Screen 09/01/17 09/01/17 09/02/17 12:00 17:49 01:10 WBC RBC Hgb Hct MCV MCH MCHC RDW Plt Count MPV Total Counted Neutrophils % Neutrophils % (Manual) Band Neuts % (Manual) Lymphocytes % Lymphocytes % (Manual) Monocytes % Monocytes % (Manual) Eosinophils % Eosinophils % (Manual) Basophils % Myelocytes % (Man) Platelet Estimate Platelet Comment Anisocytosis Microcytosis ESR PT with INR INR PTT (Actin FS) Anticoagulation Therapy Y Puncture Site Left radial Left radial ABG pH 7.38 7.31 L ABG pCO2 at Pt Temp 30.4 L 37.8 D ABG pO2 at Pt Temp 95.0 136.0 H D ABG HCO3 17.7 L 18.3 L ABG O2 Sat (Measured) 97.6 98.8 ABG O2 Content 16.3 15.5 ABG Base Excess -5.9 L -7.0 L Anoop Test Positive Positive O2 Delivery Device Vent/mask Vent Oxygen Flow Rate 50% 100% Vent Mode Ac Vent Rate 20 Mechanical Rate Y PEEP 0.0 5.0 Pressure Support Vent 450 Sodium Potassium Chloride Carbon Dioxide Anion Gap BUN Creatinine Creat Clearance w eGFR POC Glucometer Random Glucose Lactic Acid Calcium Phosphorus Magnesium Total Bilirubin Direct Bilirubin AST ALT Alkaline Phosphatase LD Total Creatine Kinase Creatine Kinase Index CK-MB (CK-2) Troponin I C-Reactive Protein Total Protein Albumin Triglycerides Cholesterol Total LDL Cholesterol HDL Cholesterol Total Amylase Lipase Urine Color Urine Appearance Urine pH Ur Specific [place] Urine Protein Urine Glucose (UA) Urine Ketones Urine Blood Urine Nitrite Urine Bilirubin Urine Urobilinogen Ur Leukocyte Esterase Urine RBC Urine WBC Ur Epithelial Cells Urine Bacteria Hyaline Casts Granular Casts Urine Mucus Urine Osmolality 511 Ur Random Sodium Pleural Fluid Source Pleural Color Pleural Appearance Pleural WBC Pleural RBC Pleural Neutrophils Pleural Eosinophils Pleural Macrophages Pleural Mesothelial Pleural Diff Comment Pleural Total Protein Pleural LDH Pleural Glucose Random Vancomycin Vancomycin Pre-Dose Alcohol, Quantitative Hepatitis A IgM Ab Hep Bs Antigen Hep B Core IgM Ab Hepatitis C Ab (EIA) HIV 1&2 Antibody Screen HIV P24 Antigen TB Test (QFT) Blood Type Antibody Screen 09/02/17 09/02/17 09/02/17 05:00 05:00 05:00 WBC 16.9 H D RBC 3.46 L Hgb 10.8 L Hct 32.6 L MCV 94.3 MCH 31.3 MCHC 33.2 RDW 15.0 Plt Count 164 D MPV 9.6 D Total Counted Neutrophils % 85.9 H D Neutrophils % (Manual) Band Neuts % (Manual) Lymphocytes % 2.3 L D Lymphocytes % (Manual) Monocytes % 11.2 H Monocytes % (Manual) Eosinophils % 0.3 D Eosinophils % (Manual) Basophils % 0.3 Myelocytes % (Man) Platelet Estimate Platelet Comment Anisocytosis Microcytosis ESR PT with INR INR PTT (Actin FS) Anticoagulation Therapy Puncture Site ABG pH ABG pCO2 at Pt Temp ABG pO2 at Pt Temp ABG HCO3 ABG O2 Sat (Measured) ABG O2 Content ABG Base Excess Anoop Test O2 Delivery Device Oxygen Flow Rate Vent Mode Vent Rate Mechanical Rate PEEP Pressure Support Vent Sodium 135 L Potassium 3.5 Chloride 103 Carbon Dioxide 19 L Anion Gap 13 BUN 23 H Creatinine 1.2 Creat Clearance w eGFR POC Glucometer Random Glucose 98 Lactic Acid Calcium 7.4 L Phosphorus 2.5 Magnesium 2.1 Total Bilirubin 0.6 D Direct Bilirubin 0.4 H D AST 102 H ALT 80 H Alkaline Phosphatase 72 LD Total Creatine Kinase Creatine Kinase Index CK-MB (CK-2) Troponin I C-Reactive Protein Total Protein 5.3 L Albumin 1.6 L Triglycerides Cholesterol Total LDL Cholesterol HDL Cholesterol Total Amylase Lipase Urine Color Urine Appearance Urine pH Ur Specific [place] Urine Protein Urine Glucose (UA) Urine Ketones Urine Blood Urine Nitrite Urine Bilirubin Urine Urobilinogen Ur Leukocyte Esterase Urine RBC Urine WBC Ur Epithelial Cells Urine Bacteria Hyaline Casts Granular Casts Urine Mucus Urine Osmolality Ur Random Sodium Pleural Fluid Source Pleural Color Pleural Appearance Pleural WBC Pleural RBC Pleural Neutrophils Pleural Eosinophils Pleural Macrophages Pleural Mesothelial Pleural Diff Comment Pleural Total Protein Pleural LDH Pleural Glucose Random Vancomycin Vancomycin Pre-Dose Alcohol, Quantitative Hepatitis A IgM Ab Hep Bs Antigen Hep B Core IgM Ab Hepatitis C Ab (EIA) HIV 1&2 Antibody Screen Negative HIV P24 Antigen Negative TB Test (QFT) Blood Type Antibody Screen 09/02/17 09/02/17 09/02/17 07:10 15:55 15:55 WBC 13.0 H RBC 3.50 L Hgb 11.1 L Hct 32.7 L MCV 93.2 MCH 31.8 MCHC 34.1 RDW 15.4 Plt Count 209 D MPV 9.3 Total Counted 100 Neutrophils % No Result Required. Neutrophils % (Manual) 76 Band Neuts % (Manual) 10 D Lymphocytes % No Result Required. Lymphocytes % (Manual) 5 L D Monocytes % Monocytes % (Manual) 9 Eosinophils % Eosinophils % (Manual) Basophils % Myelocytes % (Man) Platelet Estimate Adequate Platelet Comment No clotting detected Anisocytosis Microcytosis ESR PT with INR INR PTT (Actin FS) Anticoagulation Therapy Puncture Site Right radial ABG pH 7.38 ABG pCO2 at Pt Temp 30.6 L ABG pO2 at Pt Temp 225.0 H* ABG HCO3 17.5 L ABG O2 Sat (Measured) 99.9 H* ABG O2 Content 17.4 ABG Base Excess -6.3 L Anoop Test Positive O2 Delivery Device Vent Oxygen Flow Rate 80 Vent Mode A/c Vent Rate 25 Mechanical Rate Yes PEEP 8.0 Pressure Support Vent 450 Sodium Potassium Chloride Carbon Dioxide Anion Gap BUN Creatinine Creat Clearance w eGFR POC Glucometer Random Glucose Lactic Acid Calcium Phosphorus Magnesium Total Bilirubin Direct Bilirubin AST ALT Alkaline Phosphatase LD Total Creatine Kinase Creatine Kinase Index CK-MB (CK-2) Troponin I C-Reactive Protein Total Protein Albumin Triglycerides Cholesterol Total LDL Cholesterol HDL Cholesterol Total Amylase Lipase Urine Color Urine Appearance Urine pH Ur Specific [place] Urine Protein Urine Glucose (UA) Urine Ketones Urine Blood Urine Nitrite Urine Bilirubin Urine Urobilinogen Ur Leukocyte Esterase Urine RBC Urine WBC Ur Epithelial Cells Urine Bacteria Hyaline Casts Granular Casts Urine Mucus Urine Osmolality Ur Random Sodium Pleural Fluid Source Pleural Color Pleural Appearance Pleural WBC Pleural RBC Pleural Neutrophils Pleural Eosinophils Pleural Macrophages Pleural Mesothelial Pleural Diff Comment Pleural Total Protein Pleural LDH Pleural Glucose Random Vancomycin Vancomycin Pre-Dose 15.190 H* Alcohol, Quantitative Hepatitis A IgM Ab Hep Bs Antigen Hep B Core IgM Ab Hepatitis C Ab (EIA) HIV 1&2 Antibody Screen HIV P24 Antigen TB Test (QFT) Blood Type Antibody Screen 09/03/17 09/03/17 09/03/17 05:00 05:00 08:00 WBC RBC Hgb Hct MCV MCH MCHC RDW Plt Count MPV Total Counted Neutrophils % Neutrophils % (Manual) Band Neuts % (Manual) Lymphocytes % Lymphocytes % (Manual) Monocytes % Monocytes % (Manual) Eosinophils % Eosinophils % (Manual) Basophils % Myelocytes % (Man) Platelet Estimate Platelet Comment Anisocytosis Microcytosis ESR 105 H PT with INR INR PTT (Actin FS) Anticoagulation Therapy Puncture Site ABG pH ABG pCO2 at Pt Temp ABG pO2 at Pt Temp ABG HCO3 ABG O2 Sat (Measured) ABG O2 Content ABG Base Excess Anoop Test O2 Delivery Device Oxygen Flow Rate Vent Mode Vent Rate Mechanical Rate PEEP Pressure Support Vent Sodium 139 Potassium 3.3 L Chloride 108 H Carbon Dioxide 20 L Anion Gap 11 BUN 24 H Creatinine 1.0 Creat Clearance w eGFR > 60 POC Glucometer Random Glucose 90 Lactic Acid Calcium 7.8 L Phosphorus 2.4 L Magnesium 2.0 Total Bilirubin 0.7 Direct Bilirubin AST 127 H D ALT 74 Alkaline Phosphatase 96 D LD Total Creatine Kinase Creatine Kinase Index CK-MB (CK-2) Troponin I C-Reactive Protein 16.9 H Total Protein 5.1 L Albumin 1.4 L Triglycerides Cholesterol Total LDL Cholesterol HDL Cholesterol Total Amylase Lipase Urine Color Urine Appearance Urine pH Ur Specific [place] Urine Protein Urine Glucose (UA) Urine Ketones Urine Blood Urine Nitrite Urine Bilirubin Urine Urobilinogen Ur Leukocyte Esterase Urine RBC Urine WBC Ur Epithelial Cells Urine Bacteria Hyaline Casts Granular Casts Urine Mucus Urine Osmolality Ur Random Sodium Pleural Fluid Source Pleural Color Pleural Appearance Pleural WBC Pleural RBC Pleural Neutrophils Pleural Eosinophils Pleural Macrophages Pleural Mesothelial Pleural Diff Comment Pleural Total Protein Pleural LDH Pleural Glucose Random Vancomycin Vancomycin Pre-Dose Alcohol, Quantitative Hepatitis A IgM Ab Hep Bs Antigen Hep B Core IgM Ab Hepatitis C Ab (EIA) HIV 1&2 Antibody Screen HIV P24 Antigen TB Test (QFT) Blood Type Antibody Screen 09/03/17 09/04/17 09/04/17 08:00 07:25 08:00 WBC 15.6 H RBC 3.69 L Hgb 11.5 L Hct 35.1 L MCV 95.1 MCH 31.1 MCHC 32.7 RDW 15.6 Plt Count 246 MPV 9.2 Total Counted Neutrophils % 80.9 Neutrophils % (Manual) Band Neuts % (Manual) Lymphocytes % 7.0 L D Lymphocytes % (Manual) Monocytes % 11.0 H Monocytes % (Manual) Eosinophils % 0.8 D Eosinophils % (Manual) Basophils % 0.3 Myelocytes % (Man) Platelet Estimate Platelet Comment Anisocytosis Microcytosis ESR PT with INR INR PTT (Actin FS) Anticoagulation Therapy Puncture Site Left radial ABG pH 7.38 ABG pCO2 at Pt Temp 33.2 L ABG pO2 at Pt Temp 107.0 H D ABG HCO3 19.3 L ABG O2 Sat (Measured) 98.5 ABG O2 Content 14.8 L ABG Base Excess -4.5 L Anoop Test Positive O2 Delivery Device Vent Oxygen Flow Rate 45% Vent Mode A/c Vent Rate 25 Mechanical Rate Yes PEEP 5.0 Pressure Support Vent 450 Sodium Potassium Chloride Carbon Dioxide Anion Gap BUN Creatinine Creat Clearance w eGFR POC Glucometer Random Glucose Lactic Acid Calcium Phosphorus Magnesium Total Bilirubin Direct Bilirubin AST ALT Alkaline Phosphatase LD Total Creatine Kinase Creatine Kinase Index CK-MB (CK-2) Troponin I C-Reactive Protein Total Protein Albumin Triglycerides Cholesterol Total LDL Cholesterol HDL Cholesterol Total Amylase Lipase Urine Color Urine Appearance Urine pH Ur Specific [place] Urine Protein Urine Glucose (UA) Urine Ketones Urine Blood Urine Nitrite Urine Bilirubin Urine Urobilinogen Ur Leukocyte Esterase Urine RBC Urine WBC Ur Epithelial Cells Urine Bacteria Hyaline Casts Granular Casts Urine Mucus Urine Osmolality Ur Random Sodium Pleural Fluid Source Pleural Color Pleural Appearance Pleural WBC Pleural RBC Pleural Neutrophils Pleural Eosinophils Pleural Macrophages Pleural Mesothelial Pleural Diff Comment Pleural Total Protein Pleural LDH Pleural Glucose Random Vancomycin 7.530 Vancomycin Pre-Dose Alcohol, Quantitative Hepatitis A IgM Ab Hep Bs Antigen Hep B Core IgM Ab Hepatitis C Ab (EIA) HIV 1&2 Antibody Screen HIV P24 Antigen TB Test (QFT) Blood Type Antibody Screen 09/04/17 09/04/17 09/04/17 08:00 08:00 08:00 WBC 14.0 H RBC 3.57 L Hgb 11.2 L Hct 33.9 L MCV 94.7 MCH 31.3 MCHC 33.1 RDW 15.2 Plt Count 326 D MPV 7.8 D Total Counted Neutrophils % 82.4 Neutrophils % (Manual) Band Neuts % (Manual) Lymphocytes % 7.8 L Lymphocytes % (Manual) Monocytes % 8.6 Monocytes % (Manual) Eosinophils % 0.9 Eosinophils % (Manual) Basophils % 0.3 Myelocytes % (Man) Platelet Estimate Platelet Comment Anisocytosis Microcytosis ESR PT with INR INR PTT (Actin FS) Anticoagulation Therapy Puncture Site ABG pH ABG pCO2 at Pt Temp ABG pO2 at Pt Temp ABG HCO3 ABG O2 Sat (Measured) ABG O2 Content ABG Base Excess Anoop Test O2 Delivery Device Oxygen Flow Rate Vent Mode Vent Rate Mechanical Rate PEEP Pressure Support Vent Sodium 139 Potassium 3.2 L Chloride 109 H Carbon Dioxide 23 Anion Gap 7 L BUN 26 H Creatinine 1.3 D Creat Clearance w eGFR 55.06 POC Glucometer Random Glucose 117 H D Lactic Acid Calcium 7.6 L Phosphorus 2.6 Cancelled Magnesium 2.0 Cancelled Total Bilirubin 3.5 H D Direct Bilirubin AST 100 H D ALT 60 Alkaline Phosphatase 186 H D LD Total Creatine Kinase Creatine Kinase Index CK-MB (CK-2) Troponin I C-Reactive Protein Total Protein 5.2 L Albumin 1.2 L Triglycerides Cholesterol Total LDL Cholesterol HDL Cholesterol Total Amylase Lipase Urine Color Urine Appearance Urine pH Ur Specific [place] Urine Protein Urine Glucose (UA) Urine Ketones Urine Blood Urine Nitrite Urine Bilirubin Urine Urobilinogen Ur Leukocyte Esterase Urine RBC Urine WBC Ur Epithelial Cells Urine Bacteria Hyaline Casts Granular Casts Urine Mucus Urine Osmolality Ur Random Sodium Pleural Fluid Source Pleural Color Pleural Appearance Pleural WBC Pleural RBC Pleural Neutrophils Pleural Eosinophils Pleural Macrophages Pleural Mesothelial Pleural Diff Comment Pleural Total Protein Pleural LDH Pleural Glucose Random Vancomycin Vancomycin Pre-Dose Alcohol, Quantitative Hepatitis A IgM Ab Hep Bs Antigen Hep B Core IgM Ab Hepatitis C Ab (EIA) HIV 1&2 Antibody Screen HIV P24 Antigen TB Test (QFT) Blood Type Antibody Screen 09/04/17 09/04/17 09/05/17 08:00 09:00 05:10 WBC 8.3 D RBC 3.14 L Hgb 10.0 L D Hct 29.4 L MCV 93.7 MCH 32.0 MCHC 34.1 RDW 15.7 Plt Count 349 MPV 7.9 Total Counted Neutrophils % 76.9 Neutrophils % (Manual) Band Neuts % (Manual) Lymphocytes % 9.8 D Lymphocytes % (Manual) Monocytes % 12.0 H Monocytes % (Manual) Eosinophils % 0.6 Eosinophils % (Manual) Basophils % 0.7 Myelocytes % (Man) Platelet Estimate Adequate Platelet Comment Anisocytosis Microcytosis ESR PT with INR INR PTT (Actin FS) Anticoagulation Therapy Puncture Site ABG pH ABG pCO2 at Pt Temp ABG pO2 at Pt Temp ABG HCO3 ABG O2 Sat (Measured) ABG O2 Content ABG Base Excess Anoop Test O2 Delivery Device Oxygen Flow Rate Vent Mode Vent Rate Mechanical Rate PEEP Pressure Support Vent Sodium Potassium Chloride Carbon Dioxide Anion Gap BUN Creatinine Creat Clearance w eGFR POC Glucometer Random Glucose Lactic Acid Calcium Phosphorus Magnesium Total Bilirubin Direct Bilirubin AST ALT Alkaline Phosphatase LD Total Creatine Kinase Creatine Kinase Index CK-MB (CK-2) Troponin I C-Reactive Protein 15.0 H D Total Protein Albumin Triglycerides Cholesterol Total LDL Cholesterol HDL Cholesterol Total Amylase Lipase Urine Color [place] Urine Appearance Slcloudy Urine pH 5.0 Ur Specific [place] 1.015 Urine Protein Negative Urine Glucose (UA) Negative Urine Ketones Negative Urine Blood 2+ H Urine Nitrite Negative Urine Bilirubin Negative Urine Urobilinogen 2.0 Ur Leukocyte Esterase Negative Urine RBC 40 Urine WBC 16 Ur Epithelial Cells Rare Urine Bacteria Rare Hyaline Casts 1 Granular Casts 3 Urine Mucus Rare Urine Osmolality Ur Random Sodium Pleural Fluid Source Pleural Color Pleural Appearance Pleural WBC Pleural RBC Pleural Neutrophils Pleural Eosinophils Pleural Macrophages Pleural Mesothelial Pleural Diff Comment Pleural Total Protein Pleural LDH Pleural Glucose Random Vancomycin Vancomycin Pre-Dose Alcohol, Quantitative Hepatitis A IgM Ab Hep Bs Antigen Hep B Core IgM Ab Hepatitis C Ab (EIA) HIV 1&2 Antibody Screen HIV P24 Antigen TB Test (QFT) Blood Type Antibody Screen 09/05/17 09/05/17 09/05/17 05:10 08:40 21:30 WBC RBC Hgb Hct MCV MCH MCHC RDW Plt Count MPV Total Counted Neutrophils % Neutrophils % (Manual) Band Neuts % (Manual) Lymphocytes % Lymphocytes % (Manual) Monocytes % Monocytes % (Manual) Eosinophils % Eosinophils % (Manual) Basophils % Myelocytes % (Man) Platelet Estimate Platelet Comment Anisocytosis Microcytosis ESR PT with INR INR PTT (Actin FS) Anticoagulation Therapy Puncture Site Right radial ABG pH 7.40 ABG pCO2 at Pt Temp 31.4 L ABG pO2 at Pt Temp 99.1 ABG HCO3 19.0 L ABG O2 Sat (Measured) 98.2 ABG O2 Content 14.0 L ABG Base Excess -4.5 L Anoop Test Positive O2 Delivery Device Vent Oxygen Flow Rate 40% Vent Mode A/c Vent Rate 25 Mechanical Rate Yes PEEP 5.0 Pressure Support Vent 450 Sodium 141 141 Potassium 3.2 L 3.5 Chloride 111 H 110 H Carbon Dioxide 20 L 21 Anion Gap 10 10 BUN 25 H 24 H Creatinine 1.1 1.2 Creat Clearance w eGFR > 60 POC Glucometer Random Glucose 130 H 128 H Lactic Acid Calcium 7.0 L 7.5 L Phosphorus 2.7 4.2 D Magnesium 1.9 2.2 Total Bilirubin 1.1 H D Direct Bilirubin AST 52 H D ALT 34 D Alkaline Phosphatase 133 H D LD Total Creatine Kinase Creatine Kinase Index CK-MB (CK-2) Troponin I C-Reactive Protein Total Protein 4.7 L Albumin 1.1 L Triglycerides Cholesterol Total LDL Cholesterol HDL Cholesterol Total Amylase Lipase Urine Color Urine Appearance Urine pH Ur Specific [place] Urine Protein Urine Glucose (UA) Urine Ketones Urine Blood Urine Nitrite Urine Bilirubin Urine Urobilinogen Ur Leukocyte Esterase Urine RBC Urine WBC Ur Epithelial Cells Urine Bacteria Hyaline Casts Granular Casts Urine Mucus Urine Osmolality Ur Random Sodium Pleural Fluid Source Pleural Color Pleural Appearance Pleural WBC Pleural RBC Pleural Neutrophils Pleural Eosinophils Pleural Macrophages Pleural Mesothelial Pleural Diff Comment Pleural Total Protein Pleural LDH Pleural Glucose Random Vancomycin Vancomycin Pre-Dose Alcohol, Quantitative Hepatitis A IgM Ab Hep Bs Antigen Hep B Core IgM Ab Hepatitis C Ab (EIA) HIV 1&2 Antibody Screen HIV P24 Antigen TB Test (QFT) Blood Type Antibody Screen 09/06/17 09/06/17 09/06/17 05:00 05:00 07:35 WBC 8.7 RBC 3.10 L Hgb 9.8 L Hct 29.1 L MCV 93.8 MCH 31.7 MCHC 33.8 RDW 15.8 Plt Count 339 MPV 7.4 L Total Counted Neutrophils % 82.7 Neutrophils % (Manual) Band Neuts % (Manual) Lymphocytes % 8.3 Lymphocytes % (Manual) Monocytes % 8.2 Monocytes % (Manual) Eosinophils % 0.7 Eosinophils % (Manual) Basophils % 0.1 Myelocytes % (Man) Platelet Estimate Platelet Comment Anisocytosis Microcytosis ESR PT with INR INR PTT (Actin FS) Anticoagulation Therapy Y Puncture Site Left radial ABG pH 7.43 ABG pCO2 at Pt Temp 29.1 L ABG pO2 at Pt Temp 90.7 ABG HCO3 18.9 L ABG O2 Sat (Measured) 97.7 ABG O2 Content 14.1 L ABG Base Excess -4.1 L Anoop Test Positive O2 Delivery Device Mec.vent Oxygen Flow Rate 40% Vent Mode A/c Vent Rate 25 Mechanical Rate Esprit PEEP 5.0 Pressure Support Vent 450 Sodium 143 Potassium 3.6 Chloride 113 H Carbon Dioxide 20 L Anion Gap 10 BUN 23 H Creatinine 1.2 Creat Clearance w eGFR > 60 POC Glucometer Random Glucose 97 D Lactic Acid Calcium 7.1 L Phosphorus 3.8 Magnesium 2.1 Total Bilirubin 0.8 D Direct Bilirubin AST 40 H D ALT 16 D Alkaline Phosphatase 121 H LD Total Creatine Kinase Creatine Kinase Index CK-MB (CK-2) Troponin I C-Reactive Protein Total Protein 5.0 L Albumin 1.1 L Triglycerides Cholesterol Total LDL Cholesterol HDL Cholesterol Total Amylase Lipase Urine Color Urine Appearance Urine pH Ur Specific [place] Urine Protein Urine Glucose (UA) Urine Ketones Urine Blood Urine Nitrite Urine Bilirubin Urine Urobilinogen Ur Leukocyte Esterase Urine RBC Urine WBC Ur Epithelial Cells Urine Bacteria Hyaline Casts Granular Casts Urine Mucus Urine Osmolality Ur Random Sodium Pleural Fluid Source Pleural Color Pleural Appearance Pleural WBC Pleural RBC Pleural Neutrophils Pleural Eosinophils Pleural Macrophages Pleural Mesothelial Pleural Diff Comment Pleural Total Protein Pleural LDH Pleural Glucose Random Vancomycin Vancomycin Pre-Dose Alcohol, Quantitative Hepatitis A IgM Ab Hep Bs Antigen Hep B Core IgM Ab Hepatitis C Ab (EIA) HIV 1&2 Antibody Screen HIV P24 Antigen TB Test (QFT) Blood Type Antibody Screen 09/07/17 09/07/17 09/07/17 05:45 05:45 20:08 WBC 9.4 RBC 3.05 L Hgb 9.6 L Hct 28.5 L MCV 93.5 MCH 31.4 MCHC 33.6 RDW 15.7 Plt Count 315 MPV 7.3 L Total Counted Neutrophils % 80.5 Neutrophils % (Manual) Band Neuts % (Manual) Lymphocytes % 8.0 Lymphocytes % (Manual) Monocytes % 10.3 H Monocytes % (Manual) Eosinophils % 0.8 Eosinophils % (Manual) Basophils % 0.4 D Myelocytes % (Man) Platelet Estimate Platelet Comment Anisocytosis Microcytosis ESR PT with INR INR PTT (Actin FS) Anticoagulation Therapy Puncture Site ABG pH ABG pCO2 at Pt Temp ABG pO2 at Pt Temp ABG HCO3 ABG O2 Sat (Measured) ABG O2 Content ABG Base Excess Anoop Test O2 Delivery Device Oxygen Flow Rate Vent Mode Vent Rate Mechanical Rate PEEP Pressure Support Vent Sodium 145 Potassium 3.5 Chloride 112 H Carbon Dioxide 23 Anion Gap 10 BUN 26 H Creatinine 1.2 Creat Clearance w eGFR > 60 POC Glucometer Random Glucose 132 H D Lactic Acid Calcium 7.1 L Phosphorus 3.1 Magnesium 2.0 Total Bilirubin 0.6 D Direct Bilirubin AST 32 ALT 9 L D Alkaline Phosphatase 126 H LD Total Creatine Kinase Creatine Kinase Index CK-MB (CK-2) Troponin I C-Reactive Protein 15.2 H D Total Protein 5.3 L Albumin 1.1 L Triglycerides Cholesterol Total LDL Cholesterol HDL Cholesterol Total Amylase Lipase Urine Color Urine Appearance Urine pH Ur Specific [place] Urine Protein Urine Glucose (UA) Urine Ketones Urine Blood Urine Nitrite Urine Bilirubin Urine Urobilinogen Ur Leukocyte Esterase Urine RBC Urine WBC Ur Epithelial Cells Urine Bacteria Hyaline Casts Granular Casts Urine Mucus Urine Osmolality Ur Random Sodium Pleural Fluid Source Pleural Color Pleural Appearance Pleural WBC Pleural RBC Pleural Neutrophils Pleural Eosinophils Pleural Macrophages Pleural Mesothelial Pleural Diff Comment Pleural Total Protein Pleural LDH Pleural Glucose Random Vancomycin Vancomycin Pre-Dose 12.025 H D Alcohol, Quantitative Hepatitis A IgM Ab Hep Bs Antigen Hep B Core IgM Ab Hepatitis C Ab (EIA) HIV 1&2 Antibody Screen HIV P24 Antigen TB Test (QFT) Blood Type Antibody Screen 09/08/17 09/08/17 09/08/17 05:45 05:45 05:45 WBC 12.2 H RBC 3.20 L Hgb 10.1 L Hct 29.7 L MCV 92.9 MCH 31.6 MCHC 34.1 RDW 16.1 H Plt Count 314 MPV 7.4 L Total Counted Neutrophils % Neutrophils % (Manual) Band Neuts % (Manual) Lymphocytes % Lymphocytes % (Manual) Monocytes % Monocytes % (Manual) Eosinophils % Eosinophils % (Manual) Basophils % Myelocytes % (Man) Platelet Estimate Platelet Comment Anisocytosis Microcytosis ESR PT with INR INR PTT (Actin FS) 37.0 H D Anticoagulation Therapy Puncture Site ABG pH ABG pCO2 at Pt Temp ABG pO2 at Pt Temp ABG HCO3 ABG O2 Sat (Measured) ABG O2 Content ABG Base Excess Anoop Test O2 Delivery Device Oxygen Flow Rate Vent Mode Vent Rate Mechanical Rate PEEP Pressure Support Vent Sodium 141 Potassium 3.5 Chloride 105 Carbon Dioxide 25 Anion Gap 11 BUN 30 H Creatinine 1.3 Creat Clearance w eGFR POC Glucometer Random Glucose 137 H Lactic Acid Calcium 7.6 L Phosphorus 3.6 Magnesium 1.9 Total Bilirubin 1.0 D Direct Bilirubin 0.7 H D AST 54 H D ALT 15 D Alkaline Phosphatase 164 H D LD Total Creatine Kinase Creatine Kinase Index CK-MB (CK-2) Troponin I C-Reactive Protein Total Protein 6.0 L Albumin 1.3 L Triglycerides Cholesterol Total LDL Cholesterol HDL Cholesterol Total Amylase 41 Lipase Urine Color Urine Appearance Urine pH Ur Specific [place] Urine Protein Urine Glucose (UA) Urine Ketones Urine Blood Urine Nitrite Urine Bilirubin Urine Urobilinogen Ur Leukocyte Esterase Urine RBC Urine WBC Ur Epithelial Cells Urine Bacteria Hyaline Casts Granular Casts Urine Mucus Urine Osmolality Ur Random Sodium Pleural Fluid Source Pleural Color Pleural Appearance Pleural WBC Pleural RBC Pleural Neutrophils Pleural Eosinophils Pleural Macrophages Pleural Mesothelial Pleural Diff Comment Pleural Total Protein Pleural LDH Pleural Glucose Random Vancomycin Vancomycin Pre-Dose Alcohol, Quantitative Hepatitis A IgM Ab Hep Bs Antigen Hep B Core IgM Ab Hepatitis C Ab (EIA) HIV 1&2 Antibody Screen HIV P24 Antigen TB Test (QFT) Blood Type Antibody Screen 09/08/17 09/08/17 09/09/17 09:30 18:00 05:00 WBC 10.6 H RBC 2.70 L Hgb 8.6 L D Hct 24.8 L D MCV 92.0 MCH 31.8 MCHC 34.6 RDW 15.8 Plt Count 249 D MPV 7.6 Total Counted Neutrophils % Neutrophils % (Manual) Band Neuts % (Manual) Lymphocytes % Lymphocytes % (Manual) Monocytes % Monocytes % (Manual) Eosinophils % Eosinophils % (Manual) Basophils % Myelocytes % (Man) Platelet Estimate Platelet Comment Anisocytosis Microcytosis ESR PT with INR INR PTT (Actin FS) Anticoagulation Therapy Puncture Site Right radial ABG pH 7.47 H ABG pCO2 at Pt Temp 34.6 L ABG pO2 at Pt Temp 84.2 ABG HCO3 25.0 ABG O2 Sat (Measured) 97.5 ABG O2 Content 13.8 L ABG Base Excess 2.0 Anoop Test Positive O2 Delivery Device Mech vent Oxygen Flow Rate 35 Vent Mode A/c Vent Rate 25 Mechanical Rate Yes PEEP 5.0 Pressure Support Vent 450 Sodium Potassium Chloride Carbon Dioxide Anion Gap BUN Creatinine Creat Clearance w eGFR POC Glucometer Random Glucose Lactic Acid Calcium Phosphorus Magnesium Total Bilirubin Direct Bilirubin AST ALT Alkaline Phosphatase LD Total Creatine Kinase Creatine Kinase Index CK-MB (CK-2) Troponin I C-Reactive Protein Total Protein Albumin Triglycerides Cholesterol Total LDL Cholesterol HDL Cholesterol Total Amylase Lipase Urine Color Urine Appearance Urine pH Ur Specific [place] Urine Protein Urine Glucose (UA) Urine Ketones Urine Blood Urine Nitrite Urine Bilirubin Urine Urobilinogen Ur Leukocyte Esterase Urine RBC Urine WBC Ur Epithelial Cells Urine Bacteria Hyaline Casts Granular Casts Urine Mucus Urine Osmolality Ur Random Sodium Pleural Fluid Source Pleural Pleural Color Y Pleural Appearance Cloudy Pleural WBC 2774 Pleural RBC 3644 Pleural Neutrophils 45 Pleural Eosinophils 4 Pleural Macrophages 39 Pleural Mesothelial 12 Pleural Diff Comment Y Pleural Total Protein 2.828 Pleural LDH 299.335 Pleural Glucose 145.310 Random Vancomycin Vancomycin Pre-Dose Alcohol, Quantitative Hepatitis A IgM Ab Hep Bs Antigen Hep B Core IgM Ab Hepatitis C Ab (EIA) HIV 1&2 Antibody Screen HIV P24 Antigen TB Test (QFT) Blood Type Antibody Screen 09/09/17 09/09/17 09/09/17 05:00 06:15 10:38 WBC RBC Hgb Hct MCV MCH MCHC RDW Plt Count MPV Total Counted Neutrophils % Neutrophils % (Manual) Band Neuts % (Manual) Lymphocytes % Lymphocytes % (Manual) Monocytes % Monocytes % (Manual) Eosinophils % Eosinophils % (Manual) Basophils % Myelocytes % (Man) Platelet Estimate Platelet Comment Anisocytosis Microcytosis ESR PT with INR INR PTT (Actin FS) Anticoagulation Therapy Puncture Site Right radial ABG pH 7.50 H ABG pCO2 at Pt Temp 33.3 L ABG pO2 at Pt Temp 70.4 L ABG HCO3 25.9 ABG O2 Sat (Measured) 95.7 ABG O2 Content 13.0 L ABG Base Excess 3.2 H Anoop Test Positive O2 Delivery Device Vent Oxygen Flow Rate 30% Vent Mode A/c Vent Rate 25 Mechanical Rate Y PEEP 5.0 Pressure Support Vent 450 Sodium 141 139 Potassium 3.0 L 3.2 L Chloride 103 103 Carbon Dioxide 24 24 Anion Gap 14 12 BUN 40 H D 45 H Creatinine 1.5 H 1.8 H Creat Clearance w eGFR POC Glucometer Random Glucose 118 H 131 H Lactic Acid Calcium 7.4 L 7.1 L Phosphorus 4.9 D Magnesium 2.0 Total Bilirubin 2.9 H D Direct Bilirubin 1.8 H D AST 42 H D ALT 15 Alkaline Phosphatase 147 H LD Total 182 Creatine Kinase Creatine Kinase Index CK-MB (CK-2) Troponin I C-Reactive Protein Total Protein 5.7 L Albumin 1.2 L Triglycerides Cholesterol Total LDL Cholesterol HDL Cholesterol Total Amylase Lipase Urine Color Urine Appearance Urine pH Ur Specific Peever Urine Protein Urine Glucose (UA) Urine Ketones Urine Blood Urine Nitrite Urine Bilirubin Urine Urobilinogen Ur Leukocyte Esterase Urine RBC Urine WBC Ur Epithelial Cells Urine Bacteria Hyaline Casts Granular Casts Urine Mucus Urine Osmolality Ur Random Sodium Pleural Fluid Source Pleural Color Pleural Appearance Pleural WBC Pleural RBC Pleural Neutrophils Pleural Eosinophils Pleural Macrophages Pleural Mesothelial Pleural Diff Comment Pleural Total Protein Pleural LDH Pleural Glucose Random Vancomycin Vancomycin Pre-Dose Alcohol, Quantitative Hepatitis A IgM Ab Hep Bs Antigen Hep B Core IgM Ab Hepatitis C Ab (EIA) HIV 1&2 Antibody Screen HIV P24 Antigen TB Test (QFT) Blood Type Antibody Screen 09/09/17 09/10/17 09/10/17 15:40 05:00 05:00 WBC 15.8 H D 17.0 H RBC 3.12 L 2.92 L Hgb 9.8 L D 9.0 L Hct 28.4 L 26.6 L MCV 91.0 90.9 MCH 31.3 30.8 MCHC 34.4 33.9 RDW 15.6 15.7 Plt Count 307 D 309 MPV 7.3 L 7.2 L Total Counted Neutrophils % Neutrophils % (Manual) Band Neuts % (Manual) Lymphocytes % Lymphocytes % (Manual) Monocytes % Monocytes % (Manual) Eosinophils % Eosinophils % (Manual) Basophils % Myelocytes % (Man) Platelet Estimate Platelet Comment Anisocytosis Microcytosis ESR PT with INR INR PTT (Actin FS) Anticoagulation Therapy Puncture Site ABG pH ABG pCO2 at Pt Temp ABG pO2 at Pt Temp ABG HCO3 ABG O2 Sat (Measured) ABG O2 Content ABG Base Excess Anoop Test O2 Delivery Device Oxygen Flow Rate Vent Mode Vent Rate Mechanical Rate PEEP Pressure Support Vent Sodium 140 Potassium 3.4 L Chloride 102 Carbon Dioxide 22 Anion Gap 16 BUN 48 H Creatinine 1.9 H Creat Clearance w eGFR 35.54 POC Glucometer Random Glucose 145 H Lactic Acid Calcium 7.0 L Phosphorus 4.3 Magnesium 1.8 Total Bilirubin 1.0 D Direct Bilirubin AST 31 D ALT 9 L D Alkaline Phosphatase 151 H LD Total Creatine Kinase Creatine Kinase Index CK-MB (CK-2) Troponin I C-Reactive Protein Total Protein 6.0 L Albumin 1.2 L Triglycerides Cholesterol Total LDL Cholesterol HDL Cholesterol Total Amylase Lipase Urine Color Urine Appearance Urine pH Ur Specific [place] Urine Protein Urine Glucose (UA) Urine Ketones Urine Blood Urine Nitrite Urine Bilirubin Urine Urobilinogen Ur Leukocyte Esterase Urine RBC Urine WBC Ur Epithelial Cells Urine Bacteria Hyaline Casts Granular Casts Urine Mucus Urine Osmolality Ur Random Sodium Pleural Fluid Source Pleural Color Pleural Appearance Pleural WBC Pleural RBC Pleural Neutrophils Pleural Eosinophils Pleural Macrophages Pleural Mesothelial Pleural Diff Comment Pleural Total Protein Pleural LDH Pleural Glucose Random Vancomycin Vancomycin Pre-Dose Alcohol, Quantitative Hepatitis A IgM Ab Hep Bs Antigen Hep B Core IgM Ab Hepatitis C Ab (EIA) HIV 1&2 Antibody Screen HIV P24 Antigen TB Test (QFT) Blood Type Antibody Screen Imaging - Results X-ray: Report Reviewed Cat Scan: Report Reviewed Problem List - Problems (1) History of alcohol abuse Code(s): Z87.898 - PERSONAL HISTORY OF OTHER SPECIFIED CONDITIONS (2) Respiratory failure with hypoxia Code(s): J96.91 - RESPIRATORY FAILURE, UNSPECIFIED WITH HYPOXIA Qualifiers: Chronicity: acute Qualified Code(s): J96.01 - Acute respiratory failure with hypoxia; J96.01 - Acute respiratory failure with hypoxia; J96.01 - Acute respiratory failure with hypoxia (3) Staphylococcus aureus bacteremia Code(s): R78.81 - BACTEREMIA Assessment/Plan The history is significant for alcohol abuse and detox. Laboratory and imaging are not conclusive of advanced liver disease. Plan EGD to evaluate for esophageal varices prior to ALISA NPO after midnight Obtain consent from family
--- NOTE | 2017-09-10 13:51 | PN ---
Physical Exam: SUBJECTIVE: Patient seen and examined intubated and sedated ; off pressers; propofol restarted last night. This morning patient went in to rapid atrial fibrillation; HR 160s; he was given cardizem 5mg IVP, converted to sinus rhythm. Spiked temp 102 this am. Rectal tube placed last night due to loose stools. OBJECTIVE: Vital Signs Period Temp Pulse Resp BP Sys/Jeff Pulse Ox Last 24 Hr 99.6 F-102.2 F 95-168 25-36 88-154/52-88 96-100 GENERAL: The patient intubated, and sedated; HEAD: Normal with no signs of trauma. EYES: PERRL, extraocular movements intact, sclera anicteric, conjunctiva clear. No ptosis. ENT:ET tube in place; NECK: Trachea midline, full range of motion, supple. LUNGS: course breath sounds HEART: irregular rhythm, tachycardic , S1, S2 without murmur, rub or gallop. ABDOMEN: distended, BS + EXTREMITIES: 2+ pulses, warm, well-perfused,Bilateral UE and LE edema NEUROLOGICAL: intubated and sedated; does not follow commands; eye opening;' pupils reactive; SKIN: Warm, dry, normal turgor, no rashes or lesions noted CBC, BMP 09/10/17 05:00 09/10/17 05:00 Active Medications Generic Name Dose Route Start Last Admin Trade Name Freq PRN Reason Stop Dose Admin Acetaminophen 650 mg 09/07/17 05:53 09/10/17 09:07 Tylenol - NR 650 mg Q6H PRN Administration FEVER OR PAIN Bacitracin 1 applic 09/02/17 10:00 09/10/17 09:08 Bacitracin - TP 1 applic DAILY [facility] Administration Chlorhexidine Gluconate 15 ml 09/08/17 12:30 09/10/17 09:06 Peridex - MM 15 ml BID [facility] Administration Ferrous Sulfate 325 mg 09/05/17 12:00 09/10/17 09:08 Feosol - PO 325 mg DAILY [facility] Administration Folic Acid 1 mg 09/02/17 10:00 09/10/17 09:07 Folic Acid - PO 1 mg DAILY [facility] Administration Furosemide 40 mg 09/07/17 10:00 09/10/17 13:25 Lasix Injection - IVPUSH 40 mg BID@0600,1400 [facility] Administration Heparin Sodium (Porcine) 5,000 unit 09/02/17 06:00 09/10/17 13:25 Heparin - SQ 5,000 unit TID [facility] Administration Propofol 100 mls @ 5.898 mls/hr 09/07/17 07:30 09/10/17 13:25 Diprivan - IVPUSH 13.565 mls/hr TITR [facility] Administration Protocol 10 MCG/KG/MIN Cefazolin Sodium/Dextrose 50 mls @ 100 mls/hr 09/09/17 10:00 09/10/17 09:09 Ancef 2 Gm Premixed Ivpb - IVPB 100 mls/hr Q8H-IV [facility] Administration Lorazepam 2 mg 09/02/17 05:17 Ativan Injection - IVPUSH Q2H PRN ANXIETY Multivitamins/Minerals 1 each 09/02/17 10:00 09/10/17 09:07 Theragran-M PO 1 each DAILY [facility] Administration Pantoprazole Sodium 40 mg 09/09/17 18:45 09/10/17 09:07 Protonix Iv IVPUSH 40 mg DAILY [facility] Administration Thiamine HCl 100 mg 09/02/17 10:00 09/10/17 09:07 Vitamin B1 - PO 100 mg DAILY [facility] Administration ASSESSMENT/PLAN: 66 male with a past medical EtOH abuse and HTN who is admitted (08/31) for acute hypoxic respiratory failure requiring mechanical ventilation (09/02) and sepsis 2/2 cavitary PNA and MSSA bacteremia. Pt continues to have fever spikes despite antibiotics. ALISA pending; r/o endocarditis, need EGD prior to rule out esophageal varices. #acute hypoxic respiratory failure secondary to sepsis 2/2 cavitary PNA, MSSA bacteremia, -Vent management per ICU -Daily SBTs as tolerated -wean sedation as tolerate -off pressors, continues to have fever spikes -Abx per ID -Abx switched from Nafcillin --> Cefazolin 500mg IV daily (day 2) -f/u bolivar cultures today -f/u pleural cultures (NGTD x24h), AFB/MAGI pending #paroxysmal atrial fib w rvr -converted to NSR after cardizem IVP #r/o endocarditis -Cardiology and GI consulted -Plan for EGD tomorrow r/o varices -NPO after midnight -hold a/c #loose stools -C diff Ag and toxin negative #normotcytic anemia: stable -Trend H&H -Cont Ferrous Sulfate 325 mg PO DAILY [facility]INGS -Transfuse hgb<7 #ALEXANDRA -Strict I&Os, hines #EtOH abuse -Monitor for signs of EtOH withdrawal -Ativan 2mg IV q2h PRN -MVI, thiamine 100mg PO qd, folic acid 1mg PO daily #hypokalemia: -replace/recl #hypomagnesiemia: -replace/lan #FEN -Hold IVF -Replete K and Mg -Cont enteral feeds, NPO at midnight #PPX -DVT - heparin 5000U SQ TID; hold for procedure -GI - Pantoprazole 40mg IV daily Problem List - Problems (1) Endocarditis due to Staphylococcus Code(s): I33.0 - ACUTE AND SUBACUTE INFECTIVE ENDOCARDITIS B95.8 - UNSP STAPHYLOCOCCUS THE CAUSE OF DISEASES CLASSD ELSWHR (2) History of alcohol abuse Code(s): Z87.898 - PERSONAL HISTORY OF OTHER SPECIFIED CONDITIONS (3) Hypokalemia Code(s): E87.6 - HYPOKALEMIA (4) Hyponatremia Code(s): E87.1 - HYPO-OSMOLALITY AND HYPONATREMIA (5) Pneumonia Code(s): J18.9 - PNEUMONIA, UNSPECIFIED ORGANISM Qualifiers: Pneumonia type: aspiration pneumonia (6) Respiratory failure with hypoxia Code(s): J96.91 - RESPIRATORY FAILURE, UNSPECIFIED WITH HYPOXIA Qualifiers: Chronicity: acute Qualified Code(s): J96.01 - Acute respiratory failure with hypoxia; J96.01 - Acute respiratory failure with hypoxia; J96.01 - Acute respiratory failure with hypoxia (8) Staphylococcus aureus bacteremia Code(s): R78.81 - BACTEREMIA Visit type - Emergency Visit Emergency Visit: Yes ED Registration Date: 08/31/17 Care time: The patient presented to the Emergency Department on the above date and was hospitalized for further evaluation of their emergent condition. - New Patient This patient is new to me today: Yes Date on this admission: 09/10/17 - Critical Care Critical Care patient: Yes Total Critical Care Time (in minutes): 36 Critical Care Statement: The care of this patient involved high complexity decision making to prevent further life threatening deterioration of the patient 's condition and/or to evaluate & treat vital organ system(s) failure or risk of failure.
[2017-09-10] MEDS ORDERED: POTASSIUM CHLORIDE 20 MEQ PREMIX IVPB 100 ML IVPB ONE ×2 (15:39→16:09)
[2017-09-10] MEDS ORDERED: MAGNESIUM SULF 50% (8.12 MEQ/2 ML-1 GM VIAL) IVPB ONE ×2 (15:41→16:09)
--- NOTE | 2017-09-10 16:08 | PN ---
Teaching Attending Note Name of Resident: Lydia Salter ATTENDING PHYSICIAN STATEMENT I saw and evaluated the patient. I reviewed the resident's note and discussed the case with the resident. I agree with the resident's findings and plan as documented. SUBJECTIVE:intubated OBJECTIVE: Last Vital Signs Temp Pulse Resp BP Pulse Ox 100.1 F H 103 H 26 H 87/47 99 09/10/17 14:00 09/10/17 16:00 09/10/17 16:00 09/10/17 16:00 09/10/17 09:35 Intake & Output 09/07/17 09/08/17 09/09/17 09/10/17 23:59 23:59 23:59 23:59 Intake Total 2468 2784 1876 Output Total 4100 4300 1700 700 Balance -1632 -1516 -1700 1176 Weight 216 lb 11.43 oz 214 lb 6 oz 210 lb 208 lb 11.2 oz General opens eyes to verbal stimuli, +gag CV S1 S2 RRR no murmur/rub/gallop Lungs coarse breath sounds anteriorly Abdomen soft NT/ND +BS Extremities 1+ pitting edema B/L UE ASSESSMENT AND PLAN: 66 yo M with PMH of alcohol abuse, HTN who presented to the ER after being found on the floor. 1. Hypotension- due to sepsis due to Bacteremia and possible aspiration PNA-Tm 102. continues to have multiple temp spikes. CT chest and abdomen showing loculated pleural effusion. s/p thoracentesis which appears to be exudative in nature consistent with PNA with likely septic emboli. intermittent BCx with + staph. can likely be suggestive of endocarditis. Plan for EGD then ALISA to r/o endocarditis. on Cefazolin. cont abx per ID. 2. Acute Hypoxic respiratory failure- s/p intubated on 09/02 after admitted due to tachypnea and hypoxic (not documented with low O2 sat but was on steadily increasing oxygen supplementation RA>NC>NRB) now on full vent support. titrate down support as tolerated. cont sedation vacation. vent management per ICU team 3. Acute transaminitis- likely due to hypotension and ETOH. slightly worse possible due to abx. cont to monitor 4. Acute ETOH withdrawal- off versed ggt. ativan prn signs of withdrawal. on thiamine/folate/MVI 5. Hypokalemia- resolved 6. Hyponatremia-resolved 7. Normocytic anemia- slight trend down. likely due to procedure, now Hgb stable. on iron supplementation. no signs of obvious bleeding. trend HgB, txn for Hgb <7 8. Thrombocytopenia- Secondary to alcohol, splenomegaly. now resolved. no signs of active bleeding 9. HTN-currently normotensive off pressors. cont to monitor., 10. Chronic right subdural hematoma 11. DVT ppx- hep sq 12. MICU monitoring. pt may benefit from transfer to tertiary care center if endocarditis diagnosis is confirmed. The care of this patient involved high complexity decision making to prevent further life threatening deterioration of the patient's condition and/or to evaluate & treat vital organ system(s) failure or risk of failure. 50 mins
[2017-09-10] MEDS ORDERED: POTASSIUM CHLORIDE ORAL LIQUID 20 MEQ/15 ML NGT ONE (16:12)
[2017-09-10] MEDS ORDERED: PT OWN MED DRAWER 7, Y5N ONE (16:15)
--- NOTE | 2017-09-10 17:31 | PN ---
Progress Note (short form) - Note Progress Note: remains febrile with low bp, rising WBC cxray with enlarging right hilar process cultures sent-blood, urine, sputum cdiff is negative will broaden antibiotics to cover both MSSA bacteremia and HAP vanco/cefepime
[2017-09-10] MEDS ORDERED: VANCOMYCIN 1,250 MG in DEXTROSE 5%-WATER - 250 ML IVPB ONE (17:33)
[2017-09-10] MEDS ORDERED: CEFEPIME HCL 2 GM VIAL (RESTRICTED TO ID) IVPB SCH (18:00)
[2017-09-10] MEDS: VANCOMYCIN 1,250 MG in DEXTROSE 5%-WATER - 250 ML IVPB SCH (18:00)
--- NOTE | 2017-09-10 20:07 | EKG ---
Test Reason : Blood Pressure : / mmHG Vent. Rate : 138 BPM Atrial Rate : 109 BPM P-R Int : 000 ms QRS Dur : 074 ms QT Int : 312 ms P-R-T Axes : 000 015 017 degrees QTc Int : 472 ms ATRIAL FIBRILLATION WITH RAPID VENTRICULAR RESPONSE NONSPECIFIC ST ABNORMALITY ABNORMAL ECG WHEN COMPARED WITH ECG OF 31-AUG-2017 20:26, ATRIAL FIBRILLATION HAS REPLACED SINUS RHYTHM CRITERIA FOR INFERIOR INFARCT ARE NO LONGER PRESENT NONSPECIFIC T WAVE ABNORMALITY HAS REPLACED INVERTED T WAVES IN INFERIOR LEADS REPEAT EKG IF CLINICALLY INDICATED Confirmed by CONNIE REEVES MD ([id number]) on 09/10/2017 8:07:27 PM Referred By: JAYE STANLEY DR Confirmed By:CONNIE REEVES MD
[2017-09-11] MEDS: PROPOFOL 100 ML IVPUSH SCH ×6 (00:05→22:30)
[2017-09-11] MEDS: CEFEPIME 2 GM/100 ML BAG PRE-DOCKED IVPB SCH (02:07)
[2017-09-11] MEDS ORDERED: PROPOFOL 100 ML ONE (02:11)
[2017-09-11] MEDS: ACETAMINOPHEN 325 MG TABLET (FP) NR PRN (04:55)
[2017-09-11] MEDS: FUROSEMIDE 40 MG/4 ML INJECTABLE VIAL IVPUSH SCH (05:06)
[2017-09-11 06:08] LABS: BASOPHIL 0.7 % (0-2.0); EOSINOPHIL 1.1 % (0-4.5); MCH 31.4 pg (25.7-33.7); MCHC 34.6 g/dl (32.0-35.9); MEAN CELL VOLUME 90.7 fl (80-96); MEAN PLT VOLUME 7.5 fl (7.5-11.1); NEUTROPHILS 83.9 % (42.8-82.8); PLATELET COUNT 258 K/MM3 (134-434); RDW 15.8 % (11.9-15.9); WHITE BLOOD COUNT 13.6 K/mm3 (4.0-10.0)
--- NOTE | 2017-09-11 06:40 | PN ---
Physical Exam: SUBJECTIVE: Patient seen and examined in ICU. Remains on vent, sedated on propofol. Off pressors. OBJECTIVE: Vital Signs Period Temp Pulse Resp BP Sys/Jeff Pulse Ox Last 24 Hr 99.2 F-102.2 F 81-168 24-36 84-132/47-65 99-100 Intake & Output 09/08/17 09/09/17 09/10/17 09/11/17 23:59 23:59 23:59 23:59 Intake Total 2784 3877 1459.5 Output Total 4300 1700 700 800 Balance -1516 -1700 3177 659.5 Weight 97.239 kg 95.254 kg 94.665 kg 96.275 kg GENERAL: intubated, sedated ENT: moist mucous membranes, ETT, NGT LUNGS: mechanical breathe sounds, B/L scattered rhonchi HEART: RRR, normal S1/S2, without murmur, rub, gallop. ABDOMEN: Soft, mildly distended, normoactive bowel sounds EXTREMITIES: wwp, UE/LE 1+ edema : hines, rectal tube CBC, BMP 09/11/17 05:00 09/11/17 05:00 Ca - 7 Phos - 5.7 Mg - 2.5 Hepatic Panel Total Bilirubin 0.7 mg/dL (0.2-1.0) D 09/11/17 05:00 Direct Bilirubin 1.8 mg/dL (0.0-0.2) H D 09/09/17 05:00 AST 27 U/L (15-37) 09/11/17 05:00 ALT < 6 U/L (12-78) L D 09/11/17 05:00 Alkaline Phosphatase 113 U/L (45-117) D 09/11/17 05:00 Albumin 1.1 g/dl (3.4-5.0) L 09/11/17 05:00 Microbiology 09/08/17 18:07 Pleural Fluid Gram Stain - Final 09/08/17 18:07 Pleural Fluid Body Fluid Culture - Final NO GROWTH OF AEROBIC ORGANISMS AFTER 48 HOURS INCUBATION 09/08/17 18:07 Pleural Fluid Anaerobic Culture - Final NO ANAEROBES WERE ISOLATED 09/10/17 09:35 Sputum - Endotrachea Suction/Ventilator Gram Stain - Final 09/10/17 09:35 Sputum - Endotrachea Suction/Ventilator Sputum Culture - Preliminary Yeast Like Organism 09/10/17 09:35 Urine - Urine Hines Urine Culture - Final NO GROWTH OBTAINED 09/06/17 11:02 Blood - Peripheral Venous Blood Culture - Final NO GROWTH AFTER 5 DAYS INCUBATION 09/10/17 10:00 Blood - Peripheral Venous Blood Culture - Preliminary NO GROWTH OBTAINED AFTER 24 HOURS, INCUBATION TO CONTINUE FOR 4 DAYS. 09/10/17 10:00 Blood - Peripheral Venous Blood Culture - Preliminary NO GROWTH OBTAINED AFTER 24 HOURS, INCUBATION TO CONTINUE FOR 4 DAYS. 09/08/17 05:45 Blood - Peripheral Venous Blood Culture - Preliminary NO GROWTH OBTAINED AFTER 72 HOURS, INCUBATION TO CONTINUE FOR 2 DAYS. 09/08/17 05:45 Blood - Peripheral Venous Blood Culture - Preliminary NO GROWTH OBTAINED AFTER 72 HOURS, INCUBATION TO CONTINUE FOR 2 DAYS. 09/10/17 09:05 Stool Clostridium difficile Antigen (KHRIS) - Final 09/10/17 09:05 Stool Clostridium difficile Toxin Assay - Final 09/08/17 18:00 Pleural Fluid AFB Smear Concentration - Final 09/08/17 18:00 Pleural Fluid Mycobacterial Culture - Preliminary 09/06/17 11:02 Blood - Peripheral Venous Blood Culture - Final Staphylococcus Aureus 09/08/17 18:00 Pleural Fluid MAGI Preparation - Preliminary 09/08/17 18:00 Pleural Fluid Fungal Culture - Preliminary Active Medications Acetaminophen (Tylenol -) 650 mg NR Q6H PRN PRN Reason: FEVER OR PAIN Last Admin: 09/11/17 04:55 Dose: 650 mg Bacitracin (Bacitracin -) 1 applic TP DAILY [facility] Last Admin: 09/11/17 10:33 Dose: 1 applic Chlorhexidine Gluconate (Peridex -) 15 ml MM BID [facility] Last Admin: 09/11/17 10:33 Dose: 15 ml Ferrous Sulfate (Feosol -) 325 mg PO DAILY [facility] Last Admin: 09/11/17 15:22 Dose: 325 mg Folic Acid (Folic Acid -) 1 mg PO DAILY [facility] Last Admin: 09/11/17 15:23 Dose: 1 mg Heparin Sodium (Porcine) (Heparin -) 5,000 unit SQ TID [facility] Last Admin: 09/11/17 14:19 Dose: 5,000 unit Propofol (Diprivan -) 100 mls @ 5.898 mls/hr IVPUSH TITR [facility]; 10 MCG/KG/MIN PRN Reason: Protocol Last Admin: 09/11/17 18:18 Dose: 23 mls/hr Cefepime HCl 0.5 gm/ Dextrose 100 mls @ 100 mls/hr IVPB DAILY [facility] Last Admin: 09/11/17 10:33 Dose: 100 mls/hr Vancomycin HCl 1,250 mg/ (Dextrose) 250 mls @ 166.667 mls/hr IVPB ONCE ONE PRN Reason: Protocol Stop: 09/11/17 18:28 Lorazepam (Ativan Injection -) 2 mg IVPUSH Q2H PRN PRN Reason: ANXIETY Multivitamins/Minerals (Theragran-M) 1 each PO DAILY [facility] Last Admin: 09/11/17 15:23 Dose: 1 each Pantoprazole Sodium (Protonix Iv) 40 mg IVPUSH DAILY [facility] Last Admin: 09/11/17 10:33 Dose: 40 mg Thiamine HCl (Vitamin B1 -) 100 mg PO DAILY [facility] Last Admin: 09/11/17 15:24 Dose: 100 mg ASSESSMENT/PLAN: 66yo man with PMH of EtOH abuse and HTN who is admitted (08/31) for acute hypoxic respiratory failure requiring mechanical ventilation (09/02) and sepsis 2/2 cavitary PNA and MSSA bacteremia. Pt continues to have fever spikes despite antibiotics. EGD completed, no e/o esophageal varices, cleared for ALISA by Cardiology. #acute hypoxic respiratory failure -Vent management per ICU -Daily SBTs as tolerated -wean sedation as tolerated #sepsis 2/2 cavitary PNA, MSSA bacteremia A: off pressors, continues to have fever spikes -Abx per ID -Cefepime (D2) and Vanco (D2) (renal dosed) -f/u serial blood cultures -f/u pleural cultures (NGTD x24h), AFB/MAGI pending #r/o endocarditis -Cardiology consulted, planning ALISA tomorrow -NPO after midnight, held Heparin SQ (on SCD's) #loose stools -C diff Ag and toxin neg -rectal tube #normotcytic anemia -Trend H&H -Cont Ferrous Sulfate 325 mg PO DAILY [facility] -Transfuse hgb<7 #ALEXANDRA -Strict I&Os, hines -consider renal consult if worsens -Renal dose for meds #EtOH abuse -Monitor for signs of EtOH withdrawal -Ativan 2mg IV q2h PRN -MVI, thiamine 100mg PO qd, folic acid 1mg PO daily #GI ulcer (1 cm white-based, round ulcer with raised borders) -f/u biopsy pathology -avoid NSAIDs #FEN -Hold IVF -lytes wnl -enteral feeds, NPO at midnight #PPX -DVT - scd's -GI - Pantoprazole 40mg IV daily #Dispo: continue ICU monitoring FULL code d/w Dr. Akbar Salter MD PGY-1 Visit type - Emergency Visit Emergency Visit: No - New Patient This patient is new to me today: No - Critical Care Critical Care patient: Yes Total Critical Care Time (in minutes): 45 Critical Care Statement: The care of this patient involved high complexity decision making to prevent further life threatening deterioration of the patient 's condition and/or to evaluate & treat vital organ system(s) failure or risk of failure.
[2017-09-11 06:52] LABS: ALBUMIN 1.1 g/dl (3.4-5.0); ALK PHOS 113 U/L (45-117); ANION GAP 14 (8-16); BILIRUBIN,TOTAL 0.7 mg/dL (0.2-1.0); CO2 23 mmol/L (21-32); CREATININE 2.8 mg/dL (0.7-1.3); GLUCOSE,RANDOM 101 mg/dL (74-106); MAGNESIUM 2.5 mg/dL (1.8-2.4); PHOSPHOROUS 5.7 mg/dL (2.5-4.9); SGOT/AST 27 U/L (15-37); SGPT/ALT < 6 U/L (12-78); TOT PROT 5.6 g/dl (6.4-8.2)
--- NOTE | 2017-09-11 07:00 | PN ---
Physical Exam: SUBJECTIVE: Patient seen and examined at bedside. He is still sedated and intubated. had a fever of 102 over night on Tylenol q 6 hours. OBJECTIVE: Vital Signs Period Temp Pulse Resp BP Sys/Jeff Pulse Ox Last 24 Hr 99.2 F-102.2 F 81-168 24-36 84-132/47-65 99-100 GENERAL: intubated , sedated HEAD: Normal with no signs of trauma. EYES: conjunctiva clear. ENT: moist mucous membranes. LUNGS: Intubated B/L coarse crackles, no accessory muscle use. HEART: S1, S2 without murmur, rub or gallop. ABDOMEN: Obese,soft, nontender, nondistended, normoactive bowel sounds, no guarding, no rebound tenderness, EXTREMITIES: 2+ pitting edema. NEUROLOGICAL: sedated SKIN: Warm, dry, no rashes or lesions noted Laboratory Results - last 24 hr 09/11/17 05:00 WBC 13.6 H RBC 2.51 L Hgb 7.9 L D Hct 22.8 L MCV 90.7 MCH 31.4 MCHC 34.6 RDW 15.8 Plt Count 258 MPV 7.5 Neutrophils % 83.9 H Lymphocytes % 7.7 L Monocytes % 6.6 Eosinophils % 1.1 Basophils % 0.7 Active Medications Generic Name Dose Route Start Last Admin Trade Name Freq PRN Reason Stop Dose Admin Acetaminophen 650 mg 09/07/17 05:53 09/11/17 04:55 Tylenol - NR 650 mg Q6H PRN Administration FEVER OR PAIN Bacitracin 1 applic 09/02/17 10:00 09/10/17 09:08 Bacitracin - TP 1 applic DAILY [facility] Administration Cefepime HCl 2 gm 09/10/17 18:00 09/11/17 02:07 Maxipime 2gm Ivpb (Pre-Docked) IVPB 2 gm Q8H-IV [facility] Administration Chlorhexidine Gluconate 15 ml 09/08/17 12:30 09/10/17 21:50 Peridex - MM 15 ml BID [facility] Administration Ferrous Sulfate 325 mg 09/05/17 12:00 09/10/17 09:08 Feosol - PO 325 mg DAILY [facility] Administration Folic Acid 1 mg 09/02/17 10:00 09/10/17 09:07 Folic Acid - PO 1 mg DAILY [facility] Administration Furosemide 40 mg 09/07/17 10:00 09/11/17 05:06 Lasix Injection - IVPUSH 40 mg BID@0600,1400 [facility] Administration Heparin Sodium (Porcine) 5,000 unit 09/02/17 06:00 09/10/17 21:49 Heparin - SQ 5,000 unit TID [facility] Administration Propofol 100 mls @ 5.898 mls/hr 09/07/17 07:30 09/11/17 04:54 Diprivan - IVPUSH 23.592 mls/hr TITR [facility] Administration Protocol 10 MCG/KG/MIN Lorazepam 2 mg 09/02/17 05:17 Ativan Injection - IVPUSH Q2H PRN ANXIETY Multivitamins/Minerals 1 each 09/02/17 10:00 09/10/17 09:07 Theragran-M PO 1 each DAILY [facility] Administration Pantoprazole Sodium 40 mg 09/09/17 18:45 09/10/17 09:07 Protonix Iv IVPUSH 40 mg DAILY [facility] Administration Thiamine HCl 100 mg 09/02/17 10:00 09/10/17 09:07 Vitamin B1 - PO 100 mg DAILY [facility] Administration CBC, BMP 09/11/17 05:00 09/11/17 05:00 ASSESSMENT/PLAN: sepsis respiratory failure worsening kidney function plan continue to be febrile despite abx F/U cultures (blood, sputum, urine) Continue vanco/cefepim cefepim has been decreased to 0.5 Q24 hour patient must have occult source of infection EGD today to clear him for ALISA Vanco troph today random Visit type - Emergency Visit Emergency Visit: Yes ED Registration Date: 08/31/17 Care time: The patient presented to the Emergency Department on the above date and was hospitalized for further evaluation of their emergent condition. - New Patient This patient is new to me today: No - Critical Care Critical Care patient: Yes Total Critical Care Time (in minutes): 40 Critical Care Statement: The care of this patient involved high complexity decision making to prevent further life threatening deterioration of the patient 's condition and/or to evaluate & treat vital organ system(s) failure or risk of failure.
--- NOTE | 2017-09-11 07:41 | PN ---
Teaching Attending Note Name of Resident: Dominick Kasper ATTENDING PHYSICIAN STATEMENT I saw and evaluated the patient. I reviewed the resident's note and discussed the case with the resident. I agree with the resident's findings and plan as documented. SUBJECTIVE:Persistant fevers despite antibiotics Suspect this is not secondary infection but all Staph aureus realted OBJECTIVE: ASSESSMENT AND PLAN: Selected Entries 09/11/17 09/11/17 06:00 07:09 Temperature 99.2 F Pulse Rate 81 Respiratory 28 H Rate Blood Pressure 94/55 Laboratory Tests 09/04/17 09/11/17 09/11/17 09:00 05:00 05:00 WBC 13.6 H Hgb 7.9 L D Hct 22.8 L Plt Count 258 Neutrophils % 83.9 H Lymphocytes % 7.7 L Monocytes % 6.6 Eosinophils % 1.1 BUN 64 H D Creatinine 2.8 H D Creat Clearance w eGFR 22.72 Urine RBC 40 Urine WBC 16 Microbiology 09/10/17 09:35 Sputum - Endotrachea Suction/Ventilator Gram Stain - Final 09/10/17 09:05 Stool Clostridium difficile Antigen (KHRIS) - Final 09/10/17 09:05 Stool Clostridium difficile Toxin Assay - Final Assessment MSSA sepsis with cavitary PNA and suspected endocarditis Worsening renal function Respiratory failure Hematuria ( has hines) ? Glomerulonephritis secondary IE Plan Check vanco level this am Cefepime 500mg daily BLood cultures Esau EMERY Decresase Cefepime dose 500mg q24 Problem List - Problems (1) Pneumonia Code(s): J18.9 - PNEUMONIA, UNSPECIFIED ORGANISM Qualifiers: Pneumonia type: aspiration pneumonia (2) Respiratory failure with hypoxia Code(s): J96.91 - RESPIRATORY FAILURE, UNSPECIFIED WITH HYPOXIA Qualifiers: Chronicity: acute Qualified Code(s): J96.01 - Acute respiratory failure with hypoxia; J96.01 - Acute respiratory failure with hypoxia; J96.01 - Acute respiratory failure with hypoxia (3) Staphylococcus aureus bacteremia Code(s): R78.81 - BACTEREMIA (5) Endocarditis due to Staphylococcus Code(s): I33.0 - ACUTE AND SUBACUTE INFECTIVE ENDOCARDITIS B95.8 - UNSP STAPHYLOCOCCUS THE CAUSE OF DISEASES CLASSD ELSWHR
[2017-09-11] MEDS ORDERED: CEFEPIME HCL 2 GM VIAL (RESTRICTED TO ID) IVPB SCH (07:45)
[2017-09-11] MEDS ORDERED: CEFEPIME 0.5 GM in DEXTROSE 5%-WATER - 50 ML IVPB SCH (10:00)
[2017-09-11] MEDS: CEFEPIME 0.5 GM in DEXTROSE 5%-WATER - 100 ML IVPB SCH (10:33)
[2017-09-11] MEDS: BACITRACIN 15 GM TUBE TOPICAL OINTMENT TP SCH (10:33)
[2017-09-11] MEDS: FOLIC ACID 1 MG TABLET (FP) PO SCH ×2 (10:33→15:23)
[2017-09-11] MEDS: FERROUS SO4 325 MG TABLET (FP) PO SCH ×2 (10:33→15:22)
[2017-09-11] MEDS: PANTOPRAZOLE SODIUM 40 MG VIAL IVPUSH SCH (10:33)
[2017-09-11] MEDS: CHLORHEXIDINE GLUCONATE 0.12% 15ML CUP MM SCH ×2 (10:33→22:40)
[2017-09-11] MEDS: THIAMINE HCL 100 MG TABLET (FP) PO SCH ×2 (10:34→15:24)
[2017-09-11] MEDS: MULTIVITAMINS THER W-MINERALS COMBO TABLET (FP) PO SCH ×2 (10:34→15:23)
[2017-09-11] MEDS ORDERED: LIDOCAINE HCL 2% (20ML MULTI-DOSE VIAL) NR ONE (12:12)
[2017-09-11] MEDS ORDERED: PROPOFOL 20 ML ONE ×2 (12:13)
--- NOTE | 2017-09-11 12:22 | PN ---
Progress Note, Physician History of Present Illness: Remains on vent off sedation, low grade fever, hemodynamically stable. - Current Medication List Current Medications: Active Medications Acetaminophen (Tylenol -) 650 mg NR Q6H PRN PRN Reason: FEVER OR PAIN Last Admin: 09/11/17 04:55 Dose: 650 mg Bacitracin (Bacitracin -) 1 applic TP DAILY [facility] Last Admin: 09/11/17 10:33 Dose: 1 applic Chlorhexidine Gluconate (Peridex -) 15 ml MM BID [facility] Last Admin: 09/11/17 10:33 Dose: 15 ml Ferrous Sulfate (Feosol -) 325 mg PO DAILY [facility] Last Admin: 09/11/17 10:33 Dose: Not Given Folic Acid (Folic Acid -) 1 mg PO DAILY [facility] Last Admin: 09/11/17 10:33 Dose: Not Given Heparin Sodium (Porcine) (Heparin -) 5,000 unit SQ TID [facility] Last Admin: 09/10/17 21:49 Dose: 5,000 unit Propofol (Diprivan -) 100 mls @ 5.898 mls/hr IVPUSH TITR [facility]; 10 MCG/KG/MIN PRN Reason: Protocol Last Titration: 09/11/17 09:46 Dose: 38.99 mcg/kg/min Cefepime HCl 0.5 gm/ Dextrose 100 mls @ 100 mls/hr IVPB DAILY [facility] Last Admin: 09/11/17 10:33 Dose: 100 mls/hr Lorazepam (Ativan Injection -) 2 mg IVPUSH Q2H PRN PRN Reason: ANXIETY Multivitamins/Minerals (Theragran-M) 1 each PO DAILY [facility] Last Admin: 09/11/17 10:34 Dose: Not Given Pantoprazole Sodium (Protonix Iv) 40 mg IVPUSH DAILY [facility] Last Admin: 09/11/17 10:33 Dose: 40 mg Thiamine HCl (Vitamin B1 -) 100 mg PO DAILY [facility] Last Admin: 09/11/17 10:34 Dose: Not Given - Objective Vital Signs: Vital Signs Temperature 97.2 F L 09/11/17 12:00 Pulse Rate 78 09/11/17 12:00 Respiratory Rate 25 H 09/11/17 12:00 Blood Pressure 108/63 09/11/17 12:00 O2 Sat by Pulse Oximetry (%) 100 09/11/17 10:00 Cardiovascular: Yes: Regular Rate and Rhythm Respiratory: Yes: Intubated, Mechanically Ventilated, Rhonchi Gastrointestinal: Yes: Normal Bowel Sounds, Soft Edema: Yes Edema: LLE: Trace, RLE: Trace Labs: CBC, BMP 09/11/17 05:00 09/11/17 05:00 INR, PTT INR 0.96 (0.82-1.09) 09/01/17 09:05 Problem List - Problems (1) Pneumonia Code(s): J18.9 - PNEUMONIA, UNSPECIFIED ORGANISM Qualifiers: Pneumonia type: aspiration pneumonia (2) Respiratory failure with hypoxia Code(s): J96.91 - RESPIRATORY FAILURE, UNSPECIFIED WITH HYPOXIA Qualifiers: Chronicity: acute Qualified Code(s): J96.01 - Acute respiratory failure with hypoxia; J96.01 - Acute respiratory failure with hypoxia; J96.01 - Acute respiratory failure with hypoxia (3) Staphylococcus aureus bacteremia Code(s): R78.81 - BACTEREMIA (4) Acute kidney injury Code(s): N17.9 - ACUTE KIDNEY FAILURE, UNSPECIFIED (6) Acute diastolic heart failure Code(s): I50.31 - ACUTE DIASTOLIC (CONGESTIVE) HEART FAILURE (7) History of alcohol abuse Code(s): Z87.898 - PERSONAL HISTORY OF OTHER SPECIFIED CONDITIONS (8) Anemia Code(s): D64.9 - ANEMIA, UNSPECIFIED Qualifiers: Anemia type: unspecified type Qualified Code(s): D64.9 - Anemia, unspecified; D64.9 - Anemia, unspecified Assessment/Plan Echo: 09/02/2017 Technical difficult study, prob preserved LV fxn, but can't r/ o RWMA 1. Acute hypoxic respiratory failure, remains intubated/sedated, pulmonary infiltrates/pulmonary edema 2. Cavitary pneumonia, MSSA bacteremia suspect septic emboli, post septic shock , suspect endocarditis plan for ALISA after EGD to exclude varices 3. Acute LV diastolic failure recurring 4. History of alcohol dependence 5. Acute renal insufficiency 6. Anemia PLAN: 1. As outlined in prior notes ALISA to be considered as bacteremia persists. Evidence of chronic liver disease with possible varices is to be ruled out prior to ALISA. IN the interim, transthoracic echocardiography is to be repeated ( previous study was suboptimal and valves could not be adequately visualized) GI evaluation appreciated 2. Diuretics held pending renal fxn stabilization 3. Ventilator management as per the critical care team 4. Antibiotics as per ID service, surveillance cx to document clearance 5. Enteral feeds, DVT and GI prophylaxis
--- NOTE | 2017-09-11 13:14 | PROC ---
Endoscopy Procedure Endoscopy procedure completed. Please see scanned procedure report. No evidence of esophageal varices. No stigmata of portal hypertension noted on the exam. A 1 cm, white-based, round ulcer with raised borders was found and biopsied. No stigmata of recent, or impending bleeding. Avoid NSAIDs. Continue PPI and monitor for melena, bleeding. Follow biopsies.
--- NOTE | 2017-09-11 13:41 | PN ---
Physical Exam: SUBJECTIVE: Patient seen and examined intubated and sedated on mechanical ventilation. No fever spikes today. WBS count trending down. For EGD today. OBJECTIVE: Vital Signs Period Temp Pulse Resp BP Sys/Jeff Pulse Ox Last 24 Hr 97.2 F-102.2 F 70-106 24-35 84-120/47-68 99-100 GENERAL: intubated and sedated LUNGS: scattered ronchi HEART: Regular rate and rhythm, S1, S2 without murmur, rub or gallop. ABDOMEN: obese Soft, nontender, nondistended, normoactive bowel sounds, EXTREMITIES: 2+ pulses, warm, well-perfused, b/l UE and LE edema NEUROLOGICAL: non responsive to verbal or tactile stimuli or friction rub; intermittently on sedation Laboratory Results - last 24 hr 09/11/17 09/11/17 09/11/17 05:00 05:00 05:00 WBC 13.6 H RBC 2.51 L Hgb 7.9 L D Hct 22.8 L MCV 90.7 MCH 31.4 MCHC 34.6 RDW 15.8 Plt Count 258 MPV 7.5 Neutrophils % 83.9 H Lymphocytes % 7.7 L Monocytes % 6.6 Eosinophils % 1.1 Basophils % 0.7 Sodium 139 Potassium 3.9 Chloride 102 Carbon Dioxide 23 Anion Gap 14 BUN 64 H D Creatinine 2.8 H D Creat Clearance w eGFR 22.72 Random Glucose 101 D Calcium 7.0 L Phosphorus 5.7 H D Magnesium 2.5 H D Total Bilirubin 0.7 D AST 27 ALT < 6 L D Alkaline Phosphatase 113 D Total Protein 5.6 L Albumin 1.1 L Random Vancomycin 22.324 Vancomycin Pre-Dose 09/11/17 09:00 WBC RBC Hgb Hct MCV MCH MCHC RDW Plt Count MPV Neutrophils % Lymphocytes % Monocytes % Eosinophils % Basophils % Sodium Potassium Chloride Carbon Dioxide Anion Gap BUN Creatinine Creat Clearance w eGFR Random Glucose Calcium Phosphorus Magnesium Total Bilirubin AST ALT Alkaline Phosphatase Total Protein Albumin Random Vancomycin Vancomycin Pre-Dose 13.208 H D Active Medications Generic Name Dose Route Start Last Admin Trade Name Freq PRN Reason Stop Dose Admin Acetaminophen 650 mg 09/07/17 05:53 09/11/17 04:55 Tylenol - NR 650 mg Q6H PRN Administration FEVER OR PAIN Bacitracin 1 applic 09/02/17 10:00 09/11/17 10:33 Bacitracin - TP 1 applic DAILY [facility] Administration Chlorhexidine Gluconate 15 ml 09/08/17 12:30 09/11/17 10:33 Peridex - MM 15 ml BID [facility] Administration Ferrous Sulfate 325 mg 09/05/17 12:00 09/11/17 10:33 Feosol - PO Not Given DAILY [facility] Folic Acid 1 mg 09/02/17 10:00 09/11/17 10:33 Folic Acid - PO Not Given DAILY [facility] Heparin Sodium (Porcine) 5,000 unit 09/02/17 06:00 09/10/17 21:49 Heparin - SQ 5,000 unit TID [facility] Administration Propofol 100 mls @ 5.898 mls/hr 09/07/17 07:30 09/11/17 09:46 Diprivan - IVPUSH 38.99 mcg/kg/min TITR [facility] Titration Protocol 10 MCG/KG/MIN Cefepime HCl 0.5 gm/ Dextrose 100 mls @ 100 mls/hr 09/11/17 10:00 09/11/17 10: 33 IVPB 100 mls/hr DAILY [facility] Administration Lorazepam 2 mg 09/02/17 05:17 Ativan Injection - IVPUSH Q2H PRN ANXIETY Multivitamins/Minerals 1 each 09/02/17 10:00 09/11/17 10:34 Theragran-M PO Not Given DAILY [facility] Pantoprazole Sodium 40 mg 09/09/17 18:45 09/11/17 10:33 Protonix Iv IVPUSH 40 mg DAILY [facility] Administration Thiamine HCl 100 mg 09/02/17 10:00 09/11/17 10:34 Vitamin B1 - PO Not Given DAILY [facility] ASSESSMENT/PLAN: 66 male with a past medical EtOH abuse and HTN who is admitted (08/31) for acute hypoxic respiratory failure requiring mechanical ventilation (09/02) and sepsis 2/2 cavitary PNA and MSSA bacteremia. Pt continues to have fever spikes despite antibiotics. ALISA pending; r/o endocarditis, need EGD prior to rule out esophageal varices. #acute hypoxic respiratory failure secondary to sepsis 2/2 cavitary PNA with MSSA bacteremia, -Mech Vent AC -Daily SBTs as tolerated -wean sedation as tolerate -off pressers -cont IV Cefepime; -sputum cx + for yeast like organism -prelim blood cx negative; still f/u -AFB/MAGI pending #paroxysmal atrial fib w rvr ; resolved -converted to NSR after 5mg cardizem IVP #r/o endocarditis -egd done today' no varices -will proceed with TTE tomorrow -hold tube feeds; hold AC for procedure -Cardiology and GI consulted #loose stools-rectal tube -most lieky due to tube ffed; bulk feeds; banana flakes -C diff Ag and toxin negative #normotcytic anemia: stable -Trend H&H -Cont Ferrous Sulfate 325 mg PO DAILY [facility] -Transfuse hgb<7 #ALEXANDRA most likely due to hypotension -Strict I&Os, hines -trend cr -avoid nephrotoxic agents -d/c lasix for now #EtOH abuse -MVI, thiamine 100mg PO qd, folic acid 1mg PO daily #hypokalemia:resolved -replace/recl #hypomagnesiemia: -replace/lan #FEN -Hold IVF -Replete K and Mg -Cont enteral feeds, NPO at midnight #PPX -DVT - heparin 5000U SQ TID; hold for procedure -GI - Pantoprazole 40mg IV daily Disposition: IVC monitoring Problem List - Problems (1) Endocarditis due to Staphylococcus Code(s): I33.0 - ACUTE AND SUBACUTE INFECTIVE ENDOCARDITIS B95.8 - UNSP STAPHYLOCOCCUS THE CAUSE OF DISEASES CLASSD ELSWHR (2) History of alcohol abuse Code(s): Z87.898 - PERSONAL HISTORY OF OTHER SPECIFIED CONDITIONS (3) Hypokalemia Code(s): E87.6 - HYPOKALEMIA (4) Hyponatremia Code(s): E87.1 - HYPO-OSMOLALITY AND HYPONATREMIA (5) Pneumonia Code(s): J18.9 - PNEUMONIA, UNSPECIFIED ORGANISM Qualifiers: Pneumonia type: aspiration pneumonia (6) Respiratory failure with hypoxia Code(s): J96.91 - RESPIRATORY FAILURE, UNSPECIFIED WITH HYPOXIA Qualifiers: Chronicity: acute Qualified Code(s): J96.01 - Acute respiratory failure with hypoxia; J96.01 - Acute respiratory failure with hypoxia; J96.01 - Acute respiratory failure with hypoxia (8) Staphylococcus aureus bacteremia Code(s): R78.81 - BACTEREMIA Visit type - Emergency Visit Emergency Visit: Yes ED Registration Date: 08/31/17 Care time: The patient presented to the Emergency Department on the above date and was hospitalized for further evaluation of their emergent condition. - New Patient This patient is new to me today: Yes Date on this admission: 09/11/17 - Critical Care Critical Care patient: Yes Total Critical Care Time (in minutes): 38 Critical Care Statement: The care of this patient involved high complexity decision making to prevent further life threatening deterioration of the patient 's condition and/or to evaluate & treat vital organ system(s) failure or risk of failure.
[2017-09-11] MEDS: HEPARIN NA (PORCINE) 5,000 UNITS/ML 1ML VIAL SQ SCH ×2 (14:19→22:39)
--- NOTE | 2017-09-11 16:28 | PN ---
Teaching Attending Note Name of Resident: Tejal Ortiz ATTENDING PHYSICIAN STATEMENT I saw and evaluated the patient. I reviewed the resident's note and discussed the case with the resident. I agree with the resident's findings and plan as documented. SUBJECTIVE: Patient seen and examined in the ICU. Remains intubated and sedated. Fever better. For EGD today. No pressors. AC Mode of vent 30% FiO2. Intake & Output 09/08/17 09/09/17 09/10/17 09/11/17 23:59 23:59 23:59 23:59 Intake Total 2784 3877 676 Output Total 4300 1700 700 800 Balance -1516 -1700 3177 -124 Weight 214 lb 6 oz 210 lb 208 lb 11.2 oz 212 lb 4 oz Last Vital Signs Temp Pulse Resp BP Pulse Ox 98.7 F 78 21 123/69 100 09/11/17 16:00 09/11/17 16:00 09/11/17 16:00 09/11/17 16:00 09/11/17 10:00 Active Medications Acetaminophen (Tylenol -) 650 mg NR Q6H PRN PRN Reason: FEVER OR PAIN Last Admin: 09/11/17 04:55 Dose: 650 mg Bacitracin (Bacitracin -) 1 applic TP DAILY [facility] Last Admin: 09/11/17 10:33 Dose: 1 applic Chlorhexidine Gluconate (Peridex -) 15 ml MM BID [facility] Last Admin: 09/11/17 10:33 Dose: 15 ml Ferrous Sulfate (Feosol -) 325 mg PO DAILY [facility] Last Admin: 09/11/17 15:22 Dose: 325 mg Folic Acid (Folic Acid -) 1 mg PO DAILY [facility] Last Admin: 09/11/17 15:23 Dose: 1 mg Heparin Sodium (Porcine) (Heparin -) 5,000 unit SQ TID [facility] Last Admin: 09/11/17 14:19 Dose: 5,000 unit Propofol (Diprivan -) 100 mls @ 5.898 mls/hr IVPUSH TITR [facility]; 10 MCG/KG/MIN PRN Reason: Protocol Last Admin: 09/11/17 14:03 Dose: 23 mls/hr Cefepime HCl 0.5 gm/ Dextrose 100 mls @ 100 mls/hr IVPB DAILY [facility] Last Admin: 09/11/17 10:33 Dose: 100 mls/hr Lorazepam (Ativan Injection -) 2 mg IVPUSH Q2H PRN PRN Reason: ANXIETY Multivitamins/Minerals (Theragran-M) 1 each PO DAILY [facility] Last Admin: 09/11/17 15:23 Dose: 1 each Pantoprazole Sodium (Protonix Iv) 40 mg IVPUSH DAILY [facility] Last Admin: 09/11/17 10:33 Dose: 40 mg Thiamine HCl (Vitamin B1 -) 100 mg PO DAILY [facility] Last Admin: 09/11/17 15:24 Dose: 100 mg Gen: Intubated and sedated Heart: RRR Lung: bilateral scattered rhonchi Abd: soft, nontender Ext: + edema Laboratory Results - last 24 hr 09/11/17 09/11/17 09/11/17 05:00 05:00 05:00 WBC 13.6 H RBC 2.51 L Hgb 7.9 L D Hct 22.8 L MCV 90.7 MCH 31.4 MCHC 34.6 RDW 15.8 Plt Count 258 MPV 7.5 Neutrophils % 83.9 H Lymphocytes % 7.7 L Monocytes % 6.6 Eosinophils % 1.1 Basophils % 0.7 Sodium 139 Potassium 3.9 Chloride 102 Carbon Dioxide 23 Anion Gap 14 BUN 64 H D Creatinine 2.8 H D Creat Clearance w eGFR 22.72 Random Glucose 101 D Calcium 7.0 L Phosphorus 5.7 H D Magnesium 2.5 H D Total Bilirubin 0.7 D AST 27 ALT < 6 L D Alkaline Phosphatase 113 D Total Protein 5.6 L Albumin 1.1 L Random Vancomycin 22.324 Vancomycin Pre-Dose 09/11/17 09:00 WBC RBC Hgb Hct MCV MCH MCHC RDW Plt Count MPV Neutrophils % Lymphocytes % Monocytes % Eosinophils % Basophils % Sodium Potassium Chloride Carbon Dioxide Anion Gap BUN Creatinine Creat Clearance w eGFR Random Glucose Calcium Phosphorus Magnesium Total Bilirubin AST ALT Alkaline Phosphatase Total Protein Albumin Random Vancomycin Vancomycin Pre-Dose 13.208 H D ASSESSMENT AND PLAN: Acute Hypoxic Respiratory Failure Pneumonia MSSA Bacteremia Septic Shock Alcohol Dependence - For EGD - ABX per ID - For possible ALISA - O2 to keep SpO2 >90% - Sedation vacations - Spontaneous breathing trials as tolerated when awake - Enteral feeds - DVT/GI prophylaxis - Hold Lasix - May need to transfer to tertiary care Dr Griffin Critical care time spent in reviewing chart, evaluating patient and formulating plan 35 min
[2017-09-11] MEDS ORDERED: VANCOMYCIN 1,250 MG in DEXTROSE 5%-WATER - 250 ML IVPB ONE (16:59)
--- NOTE | 2017-09-11 18:31 | PN ---
Teaching Attending Note Name of Resident: Lydia aSlter ATTENDING PHYSICIAN STATEMENT I saw and evaluated the patient. I reviewed the resident's note and discussed the case with the resident. I agree with the resident's findings and plan as documented. SUBJECTIVE: patient seen and examined. Intubated, sedated for EGD today, unable to assess for ROS. OBJECTIVE: Vital Signs Period Temp Pulse Resp BP Sys/Jeff Pulse Ox Last 24 Hr 97.2 F-102.2 F 70-106 21-35 84-123/51-69 99-100 general - intubated sedated, in no acute distress CVS-S1s2 regular chest - limited exam, unable to appreciate rales or wheezing on anterior exam abdomen - soft, distended, positive bowel sounds extr - trace edema Neuro sedated, withdraws to pain, no verbal response Current Medications Generic Name Dose Route Start Last Admin Trade Name Freq PRN Reason Stop Dose Admin Acetaminophen 650 mg 09/07/17 05:53 09/11/17 04:55 Tylenol - NR 650 mg Q6H PRN Administration FEVER OR PAIN Bacitracin 1 applic 09/02/17 10:00 09/11/17 10:33 Bacitracin - TP 1 applic DAILY [facility] Administration Chlorhexidine Gluconate 15 ml 09/08/17 12:30 09/11/17 10:33 Peridex - MM 15 ml BID [facility] Administration Ferrous Sulfate 325 mg 09/05/17 12:00 09/11/17 15:22 Feosol - PO 325 mg DAILY [facility] Administration Folic Acid 1 mg 09/02/17 10:00 09/11/17 15:23 Folic Acid - PO 1 mg DAILY [facility] Administration Heparin Sodium (Porcine) 5,000 unit 09/02/17 06:00 09/11/17 14:19 Heparin - SQ 5,000 unit TID [facility] Administration Propofol 100 mls @ 5.898 mls/hr 09/07/17 07:30 09/11/17 18:18 Diprivan - IVPUSH 23 mls/hr TITR [facility] Administration Protocol 10 MCG/KG/MIN Cefepime HCl 0.5 gm/ Dextrose 100 mls @ 100 mls/hr 09/11/17 10:00 09/11/17 10: 33 IVPB 100 mls/hr DAILY [facility] Administration Lorazepam 2 mg 09/02/17 05:17 Ativan Injection - IVPUSH Q2H PRN ANXIETY Multivitamins/Minerals 1 each 09/02/17 10:00 09/11/17 15:23 Theragran-M PO 1 each DAILY [facility] Administration Pantoprazole Sodium 40 mg 09/09/17 18:45 09/11/17 10:33 Protonix Iv IVPUSH 40 mg DAILY [facility] Administration Thiamine HCl 100 mg 09/02/17 10:00 09/11/17 15:24 Vitamin B1 - PO 100 mg DAILY [facility] Administration Laboratory Results - last 24 hr 09/11/17 09/11/17 09/11/17 05:00 05:00 05:00 WBC 13.6 H RBC 2.51 L Hgb 7.9 L D Hct 22.8 L MCV 90.7 MCH 31.4 MCHC 34.6 RDW 15.8 Plt Count 258 MPV 7.5 Neutrophils % 83.9 H Lymphocytes % 7.7 L Monocytes % 6.6 Eosinophils % 1.1 Basophils % 0.7 Sodium 139 Potassium 3.9 Chloride 102 Carbon Dioxide 23 Anion Gap 14 BUN 64 H D Creatinine 2.8 H D Creat Clearance w eGFR 22.72 Random Glucose 101 D Calcium 7.0 L Phosphorus 5.7 H D Magnesium 2.5 H D Total Bilirubin 0.7 D AST 27 ALT < 6 L D Alkaline Phosphatase 113 D Total Protein 5.6 L Albumin 1.1 L Random Vancomycin 22.324 Vancomycin Pre-Dose 09/11/17 09:00 WBC RBC Hgb Hct MCV MCH MCHC RDW Plt Count MPV Neutrophils % Lymphocytes % Monocytes % Eosinophils % Basophils % Sodium Potassium Chloride Carbon Dioxide Anion Gap BUN Creatinine Creat Clearance w eGFR Random Glucose Calcium Phosphorus Magnesium Total Bilirubin AST ALT Alkaline Phosphatase Total Protein Albumin Random Vancomycin Vancomycin Pre-Dose 13.208 H D Echo results noted ASSESSMENT AND PLAN: 66 yo M with PMH of alcohol abuse, HTN who presented to the ER after being found on the floor. 1. Hypotension- due to sepsis due to Bacteremia and possible aspiration PNA-Tm 102. continues to have multiple temp spikes. CT chest and abdomen showing loculated pleural effusion. s/p thoracentesis which appears to be exudative in nature consistent with PNA with likely septic emboli. intermittent BCx with + staph. can likely be suggestive of endocarditis. EGD results noted, Protonix. Echo reviewed, will discuss with cardiology. Worsening berny-hilar infiltrate, antibiotics changed to Cefepime day 2, vanco day 2, vanco renal dosing, monitor levels. 2. Acute Hypoxic respiratory failure- s/p intubated on 09/02 after admitted due to tachypnea and hypoxic (not documented with low O2 sat but was on steadily increasing oxygen supplementation RA>NC>NRB) now on full vent support. titrate down support as tolerated. cont sedation vacation. vent management per ICU team 3. Acute transaminitis- likely due to hypotension and ETOH. slightly worse possible due to abx. cont to monitor 4. Acute ETOH withdrawal- off versed ggt. ativan prn signs of withdrawal. on thiamine/folate/MVI 5. Hypokalemia- resolved 6. Hyponatremia-resolved 7. Normocytic anemia- slight trend down. likely due to procedure, now Hgb stable. on iron supplementation. no signs of obvious bleeding. trend HgB, txn for Hgb <7 8. Thrombocytopenia- Secondary to alcohol, splenomegaly. now resolved. no signs of active bleeding 9. HTN-currently normotensive off pressors. cont to monitor., 10. Chronic right subdural hematoma 11. ARF - worsening renal function, suspect from sepsis/diuresis, monitor I/Os, renal input if fails to improve. Renal dosing of meds. Avoid nephrotoxins. 12. DVT ppx- hep sq 13. MICU monitoring. pt may benefit from transfer to tertiary care center if endocarditis diagnosis is confirmed. The care of this patient involved high complexity decision making to prevent further life threatening deterioration of the patient's condition and/or to evaluate & treat vital organ system(s) failure or risk of failure. 45 mins
[2017-09-12] MEDS: PROPOFOL 100 ML IVPUSH SCH ×5 (02:00→12:58)
[2017-09-12] MEDS ORDERED: PROPOFOL 100 ML ONE (02:06)
--- NOTE | 2017-09-12 06:12 | PN ---
Physical Exam: SUBJECTIVE: Patient seen and examined at bedside. Sedated and intubated. Not febrile over 24 hour, last Tylenol 5 am yesterday.had EGD yesterday, possible ALISA today at bedside.. OBJECTIVE: Vital Signs Period Temp Pulse Resp BP Sys/Jeff Pulse Ox Last 24 Hr 97.2 F-99.4 F 70-88 21-35 104-133/59-71 97-100 GENERAL: intubated , sedated HEAD: Normal with no signs of trauma. EYES: conjunctiva clear. ENT: mois mucous membranes. LUNGS: Intubated B/L coarse crackles, no accessory muscle use. HEART: S1, S2 without murmur, rub or gallop. ABDOMEN: Obese,soft, nontender, nondistended, normoactive bowel sounds, no guarding, no rebound tenderness, EXTREMITIES: 2+ pitting edema. NEUROLOGICAL: sedated SKIN: Warm, dry, no rashes or lesions noted Laboratory Results - last 24 hr 09/11/17 09/11/17 09/11/17 05:00 05:00 05:00 WBC 13.6 H RBC 2.51 L Hgb 7.9 L D Hct 22.8 L MCV 90.7 MCH 31.4 MCHC 34.6 RDW 15.8 Plt Count 258 MPV 7.5 Neutrophils % 83.9 H Lymphocytes % 7.7 L Monocytes % 6.6 Eosinophils % 1.1 Basophils % 0.7 Sodium 139 Potassium 3.9 Chloride 102 Carbon Dioxide 23 Anion Gap 14 BUN 64 H D Creatinine 2.8 H D Creat Clearance w eGFR 22.72 Random Glucose 101 D Calcium 7.0 L Phosphorus 5.7 H D Magnesium 2.5 H D Total Bilirubin 0.7 D AST 27 ALT < 6 L D Alkaline Phosphatase 113 D Total Protein 5.6 L Albumin 1.1 L Random Vancomycin 22.324 Vancomycin Pre-Dose 09/11/17 09:00 WBC RBC Hgb Hct MCV MCH MCHC RDW Plt Count MPV Neutrophils % Lymphocytes % Monocytes % Eosinophils % Basophils % Sodium Potassium Chloride Carbon Dioxide Anion Gap BUN Creatinine Creat Clearance w eGFR Random Glucose Calcium Phosphorus Magnesium Total Bilirubin AST ALT Alkaline Phosphatase Total Protein Albumin Random Vancomycin Vancomycin Pre-Dose 13.208 H D Active Medications Generic Name Dose Route Start Last Admin Trade Name Freq PRN Reason Stop Dose Admin Acetaminophen 650 mg 09/07/17 05:53 09/11/17 04:55 Tylenol - NR 650 mg Q6H PRN Administration FEVER OR PAIN Bacitracin 1 applic 09/02/17 10:00 09/11/17 10:33 Bacitracin - TP 1 applic DAILY KINGS Administration Chlorhexidine Gluconate 15 ml 09/08/17 12:30 09/11/17 22:40 Peridex - MM 15 ml BID KINGS Administration Ferrous Sulfate 325 mg 09/05/17 12:00 09/11/17 15:22 Feosol - PO 325 mg DAILY KINGS Administration Folic Acid 1 mg 09/02/17 10:00 09/11/17 15:23 Folic Acid - PO 1 mg DAILY [facility]INGS Administration Heparin Sodium (Porcine) 5,000 unit 09/02/17 06:00 09/11/17 22:39 Heparin - SQ 5,000 unit TID KINGS Administration Propofol 100 mls @ 5.898 mls/hr 09/07/17 07:30 09/12/17 05:59 Diprivan - IVPUSH 23 mls/hr TITR [facility]INGS Administration Protocol 10 MCG/KG/MIN Cefepime HCl 0.5 gm/ Dextrose 100 mls @ 100 mls/hr 09/11/17 10:00 09/11/17 10: 33 IVPB 100 mls/hr DAILY [facility]INGS Administration Lorazepam 2 mg 09/02/17 05:17 Ativan Injection - IVPUSH Q2H PRN ANXIETY Multivitamins/Minerals 1 each 09/02/17 10:00 09/11/17 15:23 Theragran-M PO 1 each DAILY [facility] Administration Pantoprazole Sodium 40 mg 09/09/17 18:45 09/11/17 10:33 Protonix Iv IVPUSH 40 mg DAILY [facility]INGS Administration Thiamine HCl 100 mg 09/02/17 10:00 09/11/17 15:24 Vitamin B1 - PO 100 mg DAILY [facility]INGS Administration CBC, BMP 09/12/17 05:00 09/12/17 05:00 Microbiology 09/08/17 05:45 Blood - Peripheral Venous Blood Culture - Preliminary NO GROWTH OBTAINED AFTER 96 HOURS, INCUBATION TO CONTINUE FOR 1 DAYS. 09/08/17 05:45 Blood - Peripheral Venous Blood Culture - Preliminary NO GROWTH OBTAINED AFTER 96 HOURS, INCUBATION TO CONTINUE FOR 1 DAYS. 09/08/17 18:07 Pleural Fluid Gram Stain - Final 09/08/17 18:07 Pleural Fluid Body Fluid Culture - Final NO GROWTH OF AEROBIC ORGANISMS AFTER 48 HOURS INCUBATION 09/08/17 18:07 Pleural Fluid Anaerobic Culture - Final NO ANAEROBES WERE ISOLATED 09/10/17 09:35 Sputum - Endotrachea Suction/Ventilator Gram Stain - Final 09/10/17 09:35 Sputum - Endotrachea Suction/Ventilator Sputum Culture - Preliminary Yeast Like Organism 09/10/17 09:35 Urine - Urine Freeman Urine Culture - Final NO GROWTH OBTAINED 09/06/17 11:02 Blood - Peripheral Venous Blood Culture - Final NO GROWTH AFTER 5 DAYS INCUBATION 09/10/17 10:00 Blood - Peripheral Venous Blood Culture - Preliminary NO GROWTH OBTAINED AFTER 24 HOURS, INCUBATION TO CONTINUE FOR 4 DAYS. 09/10/17 10:00 Blood - Peripheral Venous Blood Culture - Preliminary NO GROWTH OBTAINED AFTER 24 HOURS, INCUBATION TO CONTINUE FOR 4 DAYS. 09/10/17 09:05 Stool Clostridium difficile Antigen (KHRIS) - Final 09/10/17 09:05 Stool Clostridium difficile Toxin Assay - Final 09/08/17 18:00 Pleural Fluid AFB Smear Concentration - Final 09/08/17 18:00 Pleural Fluid Mycobacterial Culture - Preliminary 09/06/17 11:02 Blood - Peripheral Venous Blood Culture - Final Staphylococcus Aureus 09/08/17 18:00 Pleural Fluid MAGI Preparation - Preliminary 09/08/17 18:00 Pleural Fluid Fungal Culture - Preliminary 09/04/17 08:15 Blood - Peripheral Venous Blood Culture - Final NO GROWTH AFTER 5 DAYS INCUBATION 09/04/17 08:00 Blood - Peripheral Venous Blood Culture - Final NO GROWTH AFTER 5 DAYS INCUBATION 09/05/17 21:00 Sputum - Endotrachea Suction/Ventilator Gram Stain - Final 09/05/17 21:00 Sputum - Endotrachea Suction/Ventilator Sputum Culture - Final Yeast Like Organism 09/06/17 10:20 Stool Clostridium difficile Antigen (KHRIS) - Final 09/06/17 10:20 Stool Clostridium difficile Toxin Assay - Final 09/02/17 00:00 Sputum - Endotracheal Suction W/O Vent Gram Stain - Final 09/02/17 00:00 Sputum - Endotracheal Suction W/O Vent Sputum Culture - Final Yeast Like Organism 09/03/17 12:15 Urine - Urine - Catheterized Urine Culture - Final NO GROWTH OBTAINED 09/01/17 05:00 Blood - Peripheral Venous Blood Culture - Final Staphylococcus Aureus 09/01/17 00:01 Blood - Peripheral Venous Blood Culture - Final Staphylococcus Aureus 09/01/17 15:50 Blood - Peripheral Venous Blood Culture - Final Staphylococcus Aureus 09/01/17 15:55 Blood - Peripheral Venous Blood Culture - Final Staphylococcus Aureus 08/31/17 23:22 Urine - Urine Clean Catch Urine Culture - Final Contaminated: Please Repeat ASSESSMENT/PLAN: # MSSA bactermia with possible right side endocarditis Sepsis #Respiratory failure #Worsening kidney function ALEXANDRA secondary to sepsis vs medication SE: consult nephrology plan * afebrile over 24 hour, * F/U cultures (blood, sputum, urine) * Continue vanco/cefepim * cefepim has been decreased to 0.5 Q24 hour * patient must have occult source of infection * EGD yesterday ,shows no esophageal varices * possible bed side ALISA today * Vanco troph random yesterday 13.1 , another dose of vanco was given yesterday * repeat vanco troph today , another dose of vanco given. * sputum culture shows yeast like organism * repeat blood culture * Diflucan 400 mg then 100mg daily Critical care time spent today 38 minutes ( See resident attending full note)_ Visit type - Emergency Visit Emergency Visit: Yes ED Registration Date: 08/31/17 Care time: The patient presented to the Emergency Department on the above date and was hospitalized for further evaluation of their emergent condition. - New Patient This patient is new to me today: No - Critical Care Critical Care patient: Yes Total Critical Care Time (in minutes): 40 Critical Care Statement: The care of this patient involved high complexity decision making to prevent further life threatening deterioration of the patient 's condition and/or to evaluate & treat vital organ system(s) failure or risk of failure.
[2017-09-12 06:15] LABS: BASOPHIL 0.6 % (0-2.0); EOSINOPHIL 1.5 % (0-4.5); MCH 31.1 pg (25.7-33.7); MCHC 34.1 g/dl (32.0-35.9); MEAN CELL VOLUME 91.3 fl (80-96); MEAN PLT VOLUME 7.6 fl (7.5-11.1); NEUTROPHILS 83.1 % (42.8-82.8); PLATELET COUNT 339 K/MM3 (134-434); RDW 15.8 % (11.9-15.9); WHITE BLOOD COUNT 12.6 K/mm3 (4.0-10.0)
[2017-09-12 06:35] LABS: ANION GAP 13 (8-16); CALCIUM 7.1 mg/dL (8.5-10.1); CO2 22 mmol/L (21-32); CREATININE 3.1 mg/dL (0.7-1.3); GLUCOSE,RANDOM 103 mg/dL (74-106); MAGNESIUM 2.4 mg/dL (1.8-2.4); PHOSPHOROUS 6.7 mg/dL (2.5-4.9)
--- NOTE | 2017-09-12 07:28 | PN ---
Teaching Attending Note Name of Resident: Dominick Kasper ATTENDING PHYSICIAN STATEMENT I saw and evaluated the patient. I reviewed the resident's note and discussed the case with the resident. I agree with the resident's findings and plan as documented. SUBJECTIVE:Temps down for the moment Vancomycin and Cefepime Also again yeast in the sputum significance ? OBJECTIVE:Remains intubated ASSESSMENT AND PLAN: Selected Entries 09/12/17 06:00 Temperature 99 F Pulse Rate 85 Respiratory 33 H Rate Blood Pressure 128/71 Laboratory Tests 09/11/17 09/12/17 09/12/17 05:00 05:00 05:00 WBC 12.6 H Hgb 7.9 L Hct 23.1 L Plt Count 339 D BUN 75 H Creatinine 3.1 H AST 27 Microbiology 09/10/17 10:00 Blood - Peripheral Venous Blood Culture - Preliminary NO GROWTH OBTAINED AFTER 24 HOURS, INCUBATION TO CONTINUE FOR 4 DAYS. 09/10/17 10:00 Blood - Peripheral Venous Blood Culture - Preliminary NO GROWTH OBTAINED AFTER 24 HOURS, INCUBATION TO CONTINUE FOR 4 DAYS. Laboratory Tests 09/11/17 09:00 Vancomycin Pre-Dose 13.208 H D Assessment MSSA bacteremia with possible right sided endocarditis FEVER ? NO varices seen so ALISA to be done today Yeast in respiratory cultures Ill enough to warrant antifungal therapy. Acute renal failure consider sepsis related ? Glomerulonephritis secondary endocarditis Plan Vanco level today Get nephrology evaluation Repeat blood cultures Diflucan 400 mg then 100mg daily Esau EMERY Critical care time spent today 38 minutes ( See resident attending full note)_ Problem List - Problems (1) Pneumonia Code(s): J18.9 - PNEUMONIA, UNSPECIFIED ORGANISM Qualifiers: Pneumonia type: aspiration pneumonia (2) Respiratory failure with hypoxia Code(s): J96.91 - RESPIRATORY FAILURE, UNSPECIFIED WITH HYPOXIA Qualifiers: Chronicity: acute Qualified Code(s): J96.01 - Acute respiratory failure with hypoxia; J96.01 - Acute respiratory failure with hypoxia; J96.01 - Acute respiratory failure with hypoxia (3) Staphylococcus aureus bacteremia Code(s): R78.81 - BACTEREMIA (5) Endocarditis due to Staphylococcus Code(s): I33.0 - ACUTE AND SUBACUTE INFECTIVE ENDOCARDITIS B95.8 - UNSP STAPHYLOCOCCUS THE CAUSE OF DISEASES CLASSD ELSWHR
--- NOTE | 2017-09-12 07:52 | PN ---
Physical Exam: SUBJECTIVE: Patient seen and examined OBJECTIVE: Vital Signs Period Temp Pulse Resp BP Sys/Jeff Pulse Ox Last 24 Hr 97.2 F-99.4 F 70-88 21-35 104-133/59-71 97-100 Intake & Output 09/09/17 09/10/17 09/11/17 09/12/17 23:59 23:59 23:59 23:59 Intake Total 3877 1851.5 184 Output Total 1603 757 0167 300 Balance -1700 3177 751.5 -116 Weight 95.254 kg 94.665 kg 96.275 kg 96.298 kg GENERAL: The patient is awake, alert, and fully oriented, in no acute distress. HEAD: Normal with no signs of trauma. EYES: PERRL, extraocular movements intact, sclera anicteric, conjunctiva clear. No ptosis. ENT: Ears normal, nares patent, oropharynx clear without exudates, moist mucous membranes. NECK: Trachea midline, full range of motion, supple. LUNGS: Breath sounds equal, clear to auscultation bilaterally, no wheezes, no crackles, no accessory muscle use. HEART: Regular rate and rhythm, S1, S2 without murmur, rub or gallop. ABDOMEN: Soft, nontender, nondistended, normoactive bowel sounds, no guarding, no rebound, no hepatosplenomegaly, no masses. EXTREMITIES: 2+ pulses, warm, well-perfused, no edema. NEUROLOGICAL: Cranial nerves II through XII grossly intact. Normal speech, gait not observed. PSYCH: Normal mood, normal affect. SKIN: Warm, dry, normal turgor, no rashes or lesions noted Laboratory Results - last 24 hr 09/11/17 09/12/17 09/12/17 09:00 05:00 05:00 WBC 12.6 H RBC 2.53 L Hgb 7.9 L Hct 23.1 L MCV 91.3 MCH 31.1 MCHC 34.1 RDW 15.8 Plt Count 339 D MPV 7.6 Neutrophils % 83.1 H Lymphocytes % 8.1 Monocytes % 6.7 Eosinophils % 1.5 Basophils % 0.6 Sodium 136 Potassium 3.5 Chloride 101 Carbon Dioxide 22 Anion Gap 13 BUN 75 H Creatinine 3.1 H Random Glucose 103 Calcium 7.1 L Phosphorus 6.7 H Magnesium 2.4 Vancomycin Pre-Dose 13.208 H D Active Medications Generic Name Dose Route Start Last Admin Trade Name Ramo PRN Reason Stop Dose Admin Acetaminophen 650 mg 09/07/17 05:53 09/11/17 04:55 Tylenol - NR 650 mg Q6H PRN Administration FEVER OR PAIN Bacitracin 1 applic 09/02/17 10:00 09/11/17 10:33 Bacitracin - TP 1 applic DAILY KINGS Administration Chlorhexidine Gluconate 15 ml 09/08/17 12:30 09/11/17 22:40 Peridex - MM 15 ml BID KINGS Administration Ferrous Sulfate 325 mg 09/05/17 12:00 09/11/17 15:22 Feosol - PO 325 mg DAILY KINGS Administration Folic Acid 1 mg 09/02/17 10:00 09/11/17 15:23 Folic Acid - PO 1 mg DAILY KINGS Administration Heparin Sodium (Porcine) 5,000 unit 09/02/17 06:00 09/11/17 22:39 Heparin - SQ 5,000 unit TID KINGS Administration Propofol 100 mls @ 5.898 mls/hr 09/07/17 07:30 09/12/17 05:59 Diprivan - IVPUSH 23 mls/hr TITR KINGS Administration Protocol 10 MCG/KG/MIN Cefepime HCl 0.5 gm/ Dextrose 100 mls @ 100 mls/hr 09/11/17 10:00 09/11/17 10: 33 IVPB 100 mls/hr DAILY KINGS Administration Fluconazole 200 mls @ 200 mls/hr 09/12/17 07:33 Diflucan 400 Mg/Ns Premixed Ivpb - IVPB 09/12/17 08:32 ONCE ONE Multivitamins/Minerals 1 each 09/02/17 10:00 09/11/17 15:23 Theragran-M PO 1 each DAILY KINGS Administration Pantoprazole Sodium 40 mg 09/09/17 18:45 09/11/17 10:33 Protonix Iv IVPUSH 40 mg DAILY KINGS Administration Thiamine HCl 100 mg 09/02/17 10:00 09/11/17 15:24 Vitamin B1 - PO 100 mg DAILY KINGS Administration ASSESSMENT/PLAN:
[2017-09-12] MEDS ORDERED: FLUCONAZOLE 400 MG/NS 200 ML IVPB ONE (09:00)
[2017-09-12] MEDS: BACITRACIN 15 GM TUBE TOPICAL OINTMENT TP SCH (09:27)
[2017-09-12] MEDS: FERROUS SO4 325 MG TABLET (FP) PO SCH ×2 (09:28→17:13)
[2017-09-12] MEDS: PANTOPRAZOLE SODIUM 40 MG VIAL IVPUSH SCH (09:28)
[2017-09-12] MEDS: FOLIC ACID 1 MG TABLET (FP) PO SCH ×2 (09:28→17:13)
[2017-09-12] MEDS: MULTIVITAMINS THER W-MINERALS COMBO TABLET (FP) PO SCH ×2 (09:28→17:13)
[2017-09-12] MEDS: CEFEPIME 0.5 GM in DEXTROSE 5%-WATER - 100 ML IVPB SCH (09:28)
[2017-09-12] MEDS: CHLORHEXIDINE GLUCONATE 0.12% 15ML CUP MM SCH ×2 (09:28→22:28)
[2017-09-12] MEDS: THIAMINE HCL 100 MG TABLET (FP) PO SCH ×2 (09:29→17:13)
--- NOTE | 2017-09-12 10:44 | PN ---
Progress Note, Physician History of Present Illness: s/p EGD at bedside. No events overnight - Current Medication List Current Medications: Active Medications Acetaminophen (Tylenol -) 650 mg NR Q6H PRN PRN Reason: FEVER OR PAIN Last Admin: 09/11/17 04:55 Dose: 650 mg Bacitracin (Bacitracin -) 1 applic TP DAILY [facility] Last Admin: 09/12/17 09:27 Dose: 1 applic Chlorhexidine Gluconate (Peridex -) 15 ml MM BID [facility] Last Admin: 09/12/17 09:28 Dose: 15 ml Ferrous Sulfate (Feosol -) 325 mg PO DAILY [facility] Last Admin: 09/12/17 09:28 Dose: Not Given Folic Acid (Folic Acid -) 1 mg PO DAILY [facility] Last Admin: 09/12/17 09:28 Dose: Not Given Heparin Sodium (Porcine) (Heparin -) 5,000 unit SQ TID [facility] Last Admin: 09/11/17 22:39 Dose: 5,000 unit Propofol (Diprivan -) 100 mls @ 5.898 mls/hr IVPUSH TITR [facility]; 10 MCG/KG/MIN PRN Reason: Protocol Last Admin: 09/12/17 09:59 Dose: 23 mls/hr Cefepime HCl 0.5 gm/ Dextrose 100 mls @ 100 mls/hr IVPB DAILY [facility] Last Admin: 09/12/17 09:28 Dose: 100 mls/hr Multivitamins/Minerals (Theragran-M) 1 each PO DAILY [facility] Last Admin: 09/12/17 09:28 Dose: Not Given Pantoprazole Sodium (Protonix Iv) 40 mg IVPUSH DAILY [facility] Last Admin: 09/12/17 09:28 Dose: 40 mg Thiamine HCl (Vitamin B1 -) 100 mg PO DAILY [facility] Last Admin: 09/12/17 09:29 Dose: Not Given - Objective Vital Signs: Vital Signs Temperature 98.9 F 09/12/17 08:00 Pulse Rate 75 09/12/17 10:05 Respiratory Rate 25 H 09/12/17 10:36 Blood Pressure 124/66 09/12/17 08:00 O2 Sat by Pulse Oximetry (%) 94 L 09/12/17 10:36 Gastrointestinal: Yes: Normal Bowel Sounds, Soft, Distention. No: Hematemesis, Melena, Rectal Bleeding Neurological: Yes: Other (sedated) Labs: CBC, BMP 09/12/17 05:00 09/12/17 05:00 INR, PTT INR 0.96 (0.82-1.09) 09/01/17 09:05 Problem List - Problems (1) Gastric ulcer Code(s): K25.9 - GASTRIC ULCER, UNSP ACUTE OR CHRONIC, W/O HEMOR OR PERF (2) History of alcohol abuse Code(s): Z87.898 - PERSONAL HISTORY OF OTHER SPECIFIED CONDITIONS (3) Respiratory failure with hypoxia Code(s): J96.91 - RESPIRATORY FAILURE, UNSPECIFIED WITH HYPOXIA Qualifiers: Chronicity: acute Qualified Code(s): J96.01 - Acute respiratory failure with hypoxia; J96.01 - Acute respiratory failure with hypoxia; J96.01 - Acute respiratory failure with hypoxia (4) Staphylococcus aureus bacteremia Code(s): R78.81 - BACTEREMIA Assessment/Plan A non-bleeding gastric ulcer was found, otherwise negative EGD. No stigmata of portal hypertension noted. Restart previous tube feeding Continue PPI Avoid NSAIDs Please reconsult if needed. Repeat EGD in 3 months as OP
[2017-09-12] MEDS ORDERED: TETRACAINE/BENZOCAINE/BUTAMBEN 20 GM SPR TP ONE (11:15)
[2017-09-12] MEDS ORDERED: LIDOCAINE VISCOUS 2% ORAL/TOP 100 ML BOTTLE MM ONE (11:15)
--- NOTE | 2017-09-12 11:27 | PN ---
Physical Exam: SUBJECTIVE: Patient seen and examined intubated, mechanically ventilated, off pressers, sedation with propofol, not arousable. No fevers overnight. WBC trending down. Plan for ALISA at bedside today. OBJECTIVE: Vital Signs Period Temp Pulse Resp BP Sys/Jeff Pulse Ox Last 24 Hr 97.2 F-99.4 F 75-88 21-35 106-133/59-71 94-100 GENERAL: Intubated and sedated LUNGS: coarse breath sounds; scattered rhonchi HEART: Regular rate and rhythm, S1, S2 without murmur, rub or gallop. ABDOMEN: Soft, nontender, nondistended, normoactive bowel sounds, no guarding, no rebound, no hepatosplenomegaly, no masses. EXTREMITIES: 2+ pulses, warm, well-perfused,b/l UE and LE edema Laboratory Results - last 24 hr 09/12/17 09/12/17 09/12/17 05:00 05:00 09:15 WBC 12.6 H RBC 2.53 L Hgb 7.9 L Hct 23.1 L MCV 91.3 MCH 31.1 MCHC 34.1 RDW 15.8 Plt Count 339 D MPV 7.6 Neutrophils % 83.1 H Lymphocytes % 8.1 Monocytes % 6.7 Eosinophils % 1.5 Basophils % 0.6 Sodium 136 Potassium 3.5 Chloride 101 Carbon Dioxide 22 Anion Gap 13 BUN 75 H Creatinine 3.1 H Random Glucose 103 Calcium 7.1 L Phosphorus 6.7 H Magnesium 2.4 Vancomycin Pre-Dose 24.903 H* D Active Medications Generic Name Dose Route Start Last Admin Trade Name Freq PRN Reason Stop Dose Admin Acetaminophen 650 mg 09/07/17 05:53 09/11/17 04:55 Tylenol - NR 650 mg Q6H PRN Administration FEVER OR PAIN Bacitracin 1 applic 09/02/17 10:00 09/12/17 09:27 Bacitracin - TP 1 applic DAILY KINGS Administration Chlorhexidine Gluconate 15 ml 09/08/17 12:30 09/12/17 09:28 Peridex - MM 15 ml BID KINGS Administration Ferrous Sulfate 325 mg 09/05/17 12:00 09/12/17 09:28 Feosol - PO Not Given DAILY KINGS Folic Acid 1 mg 09/02/17 10:00 09/12/17 09:28 Folic Acid - PO Not Given DAILY [facility]INGS Heparin Sodium (Porcine) 5,000 unit 09/02/17 06:00 09/11/17 22:39 Heparin - SQ 5,000 unit TID KINGS Administration Propofol 100 mls @ 5.898 mls/hr 09/07/17 07:30 09/12/17 09:59 Diprivan - IVPUSH 23 mls/hr TITR KINGS Administration Protocol 10 MCG/KG/MIN Cefepime HCl 0.5 gm/ Dextrose 100 mls @ 100 mls/hr 09/11/17 10:00 09/12/17 09: 28 IVPB 100 mls/hr DAILY KINGS Administration Multivitamins/Minerals 1 each 09/02/17 10:00 09/12/17 09:28 Theragran-M PO Not Given DAILY KINGS Pantoprazole Sodium 40 mg 09/09/17 18:45 09/12/17 09:28 Protonix Iv IVPUSH 40 mg DAILY KINGS Administration Thiamine HCl 100 mg 09/02/17 10:00 09/12/17 09:29 Vitamin B1 - PO Not Given DAILY [facility] ASSESSMENT/PLAN: 66 male with a past medical EtOH abuse and HTN who is admitted (08/31) for acute hypoxic respiratory failure requiring mechanical ventilation (09/02) and sepsis 2/2 cavitary PNA and MSSA bacteremia. Pt continues to have fever spikes despite antibiotics. ALISA pending; r/o endocarditis, need EGD prior to rule out esophageal varices. #acute hypoxic respiratory failure secondary to sepsis 2/2 cavitary PNA with MSSA bacteremia, -sedation vacation; wean trial -off pressers -cont IV Cefepime; and vanco; dose vanco according to levels -sputum cx + for yeast like organism; diflucan started -prelim blood cx negative; -AFB/MAGI pending -cxr; showing small increased LLL fluid -repeat cxr #paroxysmal atrial fib w rvr ; resolved -converted to NSR after 5mg cardizem IVP #r/o endocarditis; getting ALISA today -egd done today' no varices -hold tube feeds; hold AC for procedure -Cardiology and GI consulted #loose stools-rectal tube -most likely due to tube ffed; bulk feeds; banana flakes -C diff Ag and toxin negative #normotcytic anemia: stable -Trend H&H -Cont Ferrous Sulfate 325 mg PO DAILY KINGS -Transfuse hgb<7 #ALEXANDRA most likely due to hypotension from sepsis; worsening today -Strict I&Os, hines -trend cr -avoid nephrotoxic agents -d/c lasix for now -urine lytes #EtOH abuse -MVI, thiamine 100mg PO qd, folic acid 1mg PO daily #hypokalemia:resolved -replace/recl #hypomagnesiemia: -replace/lan #hyperphosphatemia: most lieky sec to kidney injury -start phoslo' lan #FEN -Hold IVF -Replete K and Mg -hold feeds for ALISA #PPX -DVT - heparin 5000U SQ TID; hold for procedure -GI - Pantoprazole 40mg IV daily Disposition: IVC monitoring Problem List - Problems (1) Endocarditis due to Staphylococcus Code(s): I33.0 - ACUTE AND SUBACUTE INFECTIVE ENDOCARDITIS B95.8 - UNSP STAPHYLOCOCCUS THE CAUSE OF DISEASES CLASSD ELSWHR (2) History of alcohol abuse Code(s): Z87.898 - PERSONAL HISTORY OF OTHER SPECIFIED CONDITIONS (3) Hypokalemia Code(s): E87.6 - HYPOKALEMIA (4) Hyponatremia Code(s): E87.1 - HYPO-OSMOLALITY AND HYPONATREMIA (5) Pneumonia Code(s): J18.9 - PNEUMONIA, UNSPECIFIED ORGANISM Qualifiers: Pneumonia type: aspiration pneumonia (6) Respiratory failure with hypoxia Code(s): J96.91 - RESPIRATORY FAILURE, UNSPECIFIED WITH HYPOXIA Qualifiers: Chronicity: acute Qualified Code(s): J96.01 - Acute respiratory failure with hypoxia; J96.01 - Acute respiratory failure with hypoxia; J96.01 - Acute respiratory failure with hypoxia (8) Staphylococcus aureus bacteremia Code(s): R78.81 - BACTEREMIA Visit type - Emergency Visit Emergency Visit: Yes ED Registration Date: 08/31/17 Care time: The patient presented to the Emergency Department on the above date and was hospitalized for further evaluation of their emergent condition. - New Patient This patient is new to me today: No - Critical Care Critical Care patient: Yes Total Critical Care Time (in minutes): 36 Critical Care Statement: The care of this patient involved high complexity decision making to prevent further life threatening deterioration of the patient 's condition and/or to evaluate & treat vital organ system(s) failure or risk of failure.
[2017-09-12 11:37] LABS: URINE CREATININE 63.2 mg/dL (20-370)
--- NOTE | 2017-09-12 12:22 | PN ---
Physical Exam: SUBJECTIVE: Patient seen and examined in ICU. Remains intubated, sedated on propofol gtt. OBJECTIVE: Vital Signs Period Temp Pulse Resp BP Sys/Jeff Pulse Ox Last 24 Hr 98.7 F-99.4 F 75-88 21-35 106-133/59-71 94-100 Intake & Output 09/09/17 09/10/17 09/11/17 09/12/17 23:59 23:59 23:59 23:59 Intake Total 3877 1851.5 184 Output Total 1928 797 8654 300 Balance -1700 3177 751.5 -116 Weight 95.254 kg 94.665 kg 96.275 kg 96.298 kg GENERAL: intubated, sedated ENT: moist mucous membranes, ETT, NGT LUNGS: mechanical breathe sounds HEART: RRR, normal S1/S2, without murmur, rub, gallop. ABDOMEN: Soft, mildly distended, normoactive bowel sounds EXTREMITIES: anasarca : hines, rectal tube Laboratory Results - last 24 hr CBC, BMP 09/12/17 05:00 09/12/17 05:00 Hepatic Panel Total Bilirubin 0.7 mg/dL (0.2-1.0) D 09/11/17 05:00 Direct Bilirubin 1.8 mg/dL (0.0-0.2) H D 09/09/17 05:00 AST 27 U/L (15-37) 09/11/17 05:00 ALT < 6 U/L (12-78) L D 09/11/17 05:00 Alkaline Phosphatase 113 U/L (45-117) D 09/11/17 05:00 Albumin 1.1 g/dl (3.4-5.0) L 09/11/17 05:00 Ca - 7.1 Phos - 6.7 Mg - 2.4 Microbiology 09/10/17 09:35 Sputum - Endotrachea Suction/Ventilator Sputum Culture - Yeast Like Organism 09/10/17 10:00 Blood - Peripheral Venous Blood Culture - Preliminary NO GROWTH OBTAINED AFTER 48 HOURS, INCUBATION TO CONTINUE FOR 3 DAYS. 09/10/17 10:00 Blood - Peripheral Venous Blood Culture - Preliminary NO GROWTH OBTAINED AFTER 48 HOURS, INCUBATION TO CONTINUE FOR 3 DAYS. 09/08/17 05:45 Blood - Peripheral Venous Blood Culture - Preliminary NO GROWTH OBTAINED AFTER 96 HOURS, INCUBATION TO CONTINUE FOR 1 DAYS. 09/08/17 05:45 Blood - Peripheral Venous Blood Culture - Preliminary NO GROWTH OBTAINED AFTER 96 HOURS, INCUBATION TO CONTINUE FOR 1 DAYS. 09/08/17 18:07 Pleural Fluid Gram Stain - Final 09/08/17 18:07 Pleural Fluid Body Fluid Culture - Final NO GROWTH OF AEROBIC ORGANISMS AFTER 48 HOURS INCUBATION 09/08/17 18:07 Pleural Fluid Anaerobic Culture - Final NO ANAEROBES WERE ISOLATED 09/10/17 09:35 Urine - Urine Hines Urine Culture - Final NO GROWTH OBTAINED 09/06/17 11:02 Blood - Peripheral Venous Blood Culture - Final NO GROWTH AFTER 5 DAYS INCUBATION 09/10/17 09:05 Stool Clostridium difficile Antigen (KHRIS) - Final 09/10/17 09:05 Stool Clostridium difficile Toxin Assay - Final 09/08/17 18:00 Pleural Fluid AFB Smear Concentration - Final 09/08/17 18:00 Pleural Fluid Mycobacterial Culture - Preliminary 09/06/17 11:02 Blood - Peripheral Venous Blood Culture - Final Staphylococcus Aureus 09/08/17 18:00 Pleural Fluid MAGI Preparation - Preliminary 09/08/17 18:00 Pleural Fluid Fungal Culture - Preliminary 09/04/17 08:15 Blood - Peripheral Venous Blood Culture - Final NO GROWTH AFTER 5 DAYS INCUBATION 09/04/17 08:00 Blood - Peripheral Venous Blood Culture - Final NO GROWTH AFTER 5 DAYS INCUBATION 09/05/17 21:00 Sputum - Endotrachea Suction/Ventilator Gram Stain - Final 09/05/17 21:00 Sputum - Endotrachea Suction/Ventilator Sputum Culture - Final Yeast Like Organism Active Medications Acetaminophen (Tylenol -) 650 mg NR Q6H PRN PRN Reason: FEVER OR PAIN Last Admin: 09/11/17 04:55 Dose: 650 mg Bacitracin (Bacitracin -) 1 applic TP DAILY [facility] Last Admin: 09/12/17 09:27 Dose: 1 applic Chlorhexidine Gluconate (Peridex -) 15 ml MM BID [facility] Last Admin: 09/12/17 09:28 Dose: 15 ml Ferrous Sulfate (Feosol -) 325 mg PO DAILY [facility] Last Admin: 09/12/17 09:28 Dose: Not Given Folic Acid (Folic Acid -) 1 mg PO DAILY [facility] Last Admin: 09/12/17 09:28 Dose: Not Given Heparin Sodium (Porcine) (Heparin -) 5,000 unit SQ TID [facility] Last Admin: 09/11/17 22:39 Dose: 5,000 unit Propofol (Diprivan -) 100 mls @ 5.898 mls/hr IVPUSH TITR [facility]; 10 MCG/KG/MIN PRN Reason: Protocol Last Admin: 09/12/17 09:59 Dose: 23 mls/hr Cefepime HCl 0.5 gm/ Dextrose 100 mls @ 100 mls/hr IVPB DAILY [facility] Last Admin: 09/12/17 09:28 Dose: 100 mls/hr Multivitamins/Minerals (Theragran-M) 1 each PO DAILY [facility] Last Admin: 09/12/17 09:28 Dose: Not Given Pantoprazole Sodium (Protonix Iv) 40 mg IVPUSH DAILY [facility] Last Admin: 09/12/17 09:28 Dose: 40 mg Thiamine HCl (Vitamin B1 -) 100 mg PO DAILY [facility] Last Admin: 09/12/17 09:29 Dose: Not Given ASSESSMENT/PLAN: 66yo man with PMH of EtOH abuse and HTN who is admitted (08/31) for acute hypoxic respiratory failure requiring mechanical ventilation (09/02) and sepsis 2/2 cavitary PNA and MSSA bacteremia, and now worsening renal function. Afebrile in the past 24H, however pt has had intermittent fever spikes despite antibiotics. Sputum culture growing yeast-like organism. #acute hypoxic respiratory failure -Vent management per ICU -Daily SBTs as tolerated -wean sedation as tolerated #sepsis 2/2 cavitary PNA, MSSA bacteremia -Abx per ID -Cefepime (D2) and Vanco (D3) (renal dosage) -Diflucan 400mg PO daily intial dose then 100mg daily for yeast in sputum cx -f/u serial blood cultures -f/u pleural cultures (NGTD x48h), no fungus #r/o endocarditis -Cardiology consulted, planning ALISA #ALEXANDRA -Nephrology consulted, input appreciated -f/u Urine studies -Strict I&Os, hines -Renal dose for meds #loose stools -C diff Ag and toxin neg -rectal tube #normotcytic anemia -Trend H&H -Cont Ferrous Sulfate 325 mg PO DAILY [facility] -Transfuse hgb<7 #EtOH abuse -Monitor for signs of EtOH withdrawal -Ativan 2mg IV q2h PRN -MVI, thiamine 100mg PO qd, folic acid 1mg PO daily #GI ulcer (1 cm white-based, round ulcer with raised borders, bx 09/10, Dr. Archie Pablo) -f/u biopsy pathology -avoid NSAIDs #FEN -Hold IVF -hyperphosphatemia noted -Resume enteral feeds after ALISA #PPX -DVT - scd's, resume Hep SQ TID after ALISA -GI - Pantoprazole 40mg IV daily #Dispo: continue ICU monitoring FULL code d/w Dr. Akbar Salter MD PGY-1 Visit type - Emergency Visit Emergency Visit: No - New Patient This patient is new to me today: No - Critical Care Critical Care patient: Yes Total Critical Care Time (in minutes): 40 Critical Care Statement: The care of this patient involved high complexity decision making to prevent further life threatening deterioration of the patient 's condition and/or to evaluate & treat vital organ system(s) failure or risk of failure.
[2017-09-12] MEDS ORDERED: NAPH,MB-DB/K PH,MBDB POWDER PACKET PO SCH (14:00)
--- NOTE | 2017-09-12 14:31 | PN ---
Teaching Attending Note Name of Resident: Lydia Salter ATTENDING PHYSICIAN STATEMENT I saw and evaluated the patient. I reviewed the resident's note and discussed the case with the resident. I agree with the resident's findings and plan as documented. SUBJECTIVE: patient seen and examined, intubated and sedated, unable to do ROS. OBJECTIVE: Vital Signs Period Temp Pulse Resp BP Sys/Jeff Pulse Ox Last 24 Hr 98.6 F-99.4 F 75-88 21-33 106-133/59-77 94-100 Intake & Output 09/09/17 09/10/17 09/11/17 09/12/17 23:59 23:59 23:59 23:59 Intake Total 3877 1851.5 184 Output Total 1234 257 5906 300 Balance -1700 3177 751.5 -116 Weight 210 lb 208 lb 11.2 oz 212 lb 4 oz 212 lb 4.8 oz general intubated sedated, anasarca CVS -S1S2 regular chest - limited exam Abdomen soft, obese Extremities anasarca Current Medications Acetaminophen (Tylenol -) 650 mg NR Q6H PRN PRN Reason: FEVER OR PAIN Last Admin: 09/11/17 04:55 Dose: 650 mg Bacitracin (Bacitracin -) 1 applic TP DAILY [facility] Last Admin: 09/12/17 09:27 Dose: 1 applic Chlorhexidine Gluconate (Peridex -) 15 ml MM BID [facility] Last Admin: 09/12/17 09:28 Dose: 15 ml Ferrous Sulfate (Feosol -) 325 mg PO DAILY [facility] Last Admin: 09/12/17 09:28 Dose: Not Given Folic Acid (Folic Acid -) 1 mg PO DAILY [facility] Last Admin: 09/12/17 09:28 Dose: Not Given Heparin Sodium (Porcine) (Heparin -) 5,000 unit SQ TID [facility] Last Admin: 09/11/17 22:39 Dose: 5,000 unit Propofol (Diprivan -) 100 mls @ 5.898 mls/hr IVPUSH TITR [facility]; 10 MCG/KG/MIN PRN Reason: Protocol Last Admin: 09/12/17 12:58 Dose: 23 mls/hr Cefepime HCl 0.5 gm/ Dextrose 100 mls @ 100 mls/hr IVPB DAILY [facility] Last Admin: 09/12/17 09:28 Dose: 100 mls/hr Multivitamins/Minerals (Theragran-M) 1 each PO DAILY [facility] Last Admin: 09/12/17 09:28 Dose: Not Given Pantoprazole Sodium (Protonix Iv) 40 mg IVPUSH DAILY [facility] Last Admin: 09/12/17 09:28 Dose: 40 mg Potassium Phos/Sodium Phos (Phos-Nak Packet -) 1 packet PO TID [facility] Thiamine HCl (Vitamin B1 -) 100 mg PO DAILY [facility] Last Admin: 09/12/17 09:29 Dose: Not Given Laboratory Results - last 24 hr 09/12/17 09/12/17 09/12/17 05:00 05:00 05:00 WBC 12.6 H RBC 2.53 L Hgb 7.9 L Hct 23.1 L MCV 91.3 MCH 31.1 MCHC 34.1 RDW 15.8 Plt Count 339 D MPV 7.6 Neutrophils % 83.1 H Lymphocytes % 8.1 Monocytes % 6.7 Eosinophils % 1.5 Basophils % 0.6 Sodium 136 Potassium 3.5 Chloride 101 Carbon Dioxide 22 Anion Gap 13 BUN 75 H Creatinine 3.1 H Random Glucose 103 Serum Osmolality 305 Calcium 7.1 L Phosphorus 6.7 H Magnesium 2.4 Urine Osmolality Ur Random Sodium Ur Random Potassium Ur Random Chloride Urine Creatinine Vancomycin Pre-Dose 09/12/17 09/12/17 09/12/17 08:00 08:00 08:00 WBC RBC Hgb Hct MCV MCH MCHC RDW Plt Count MPV Neutrophils % Lymphocytes % Monocytes % Eosinophils % Basophils % Sodium Potassium Chloride Carbon Dioxide Anion Gap BUN Creatinine Random Glucose Serum Osmolality Calcium Phosphorus Magnesium Urine Osmolality 302 D Ur Random Sodium Cancelled 17 Ur Random Potassium 37.0 Ur Random Chloride 10 Urine Creatinine 63.2 Vancomycin Pre-Dose 09/12/17 09:15 WBC RBC Hgb Hct MCV MCH MCHC RDW Plt Count MPV Neutrophils % Lymphocytes % Monocytes % Eosinophils % Basophils % Sodium Potassium Chloride Carbon Dioxide Anion Gap BUN Creatinine Random Glucose Serum Osmolality Calcium Phosphorus Magnesium Urine Osmolality Ur Random Sodium Ur Random Potassium Ur Random Chloride Urine Creatinine Vancomycin Pre-Dose 24.903 H* D Sputum cultures with yeast ALISA pending ASSESSMENT AND PLAN: -Acute hypoxic respiratory failure -Severe sepsis due to cavitary PNA, MSSA bacteremia, possible Infective endocarditis, now with worsening perihilar infiltrate -ARF, from sepsis vs medication related -AFib with RVR resolved -Hypokalemia/hypomagnesemia -Hyperphosphatemia -Alcohol abuse -Normocytic anemia -Acute transaminitis -Chronic right subdural hematoma PLan: For LAISA today, will follow up. Cefepime/vanco. Diflucan added, follow up ID recs. Vent support, daily wean trial per ICU nephrology consulted, renal dosing of meds, replete lytes prn. Trend LFTs. Patient critical with ongoing multiorgan dsyfunction. May need transfer to tertiary care facility pending ALISA findings. total critical care time spent 45 min.
--- NOTE | 2017-09-12 15:13 | CONSULT ---
Consult Consult Specialty:: Nephrology Reason for Consultation:: ALEXANDRA - History of Present Illness Chief Complaint: called to evaluate for ALEXANDRA History of Present Illness: Pt is a 66 year old male who initially came in with shortness of breath and rib pain. He was intubated for respiratory failure. He has history of etoh abuse, htn and pneumothorax. He is intubated and not able to give much history. I was called to evaluate him for alexandra. He has been having fevers and is being worked up for endocarditis. Chart reviewed and case discussed with ICU team. - History Source History Provided By: Medical Record - Past Medical History Cardio/Vascular: Yes: HTN Musculoskeletal: Yes: Other (left rib pain ) Additional Medical History: chronic alcoholism with multiple detox and rehabs in the past.most recent at [facility] x 12 months - states he began drinking immediately after d/c . - Alcohol/Substance Use Hx Alcohol Use: Yes Number of Drinks Daily: 8 (He states he drinks about 8 16oz drinks per day) - Smoking History Smoking history: Former smoker Have you smoked in the past 12 months: No If you are a former smoker, when did you quit?: 42 years ago - Social History ADL: Independent Home Medications - Allergies Allergies/Adverse Reactions: Allergies Allergy/AdvReac Type Severity Reaction Status Date / Time No Known Allergies Allergy Verified 07/16/17 15:34 - Home Medications Home Medications: Ambulatory Orders Unobtainable [Unobtainable] 08/31/17 Family Disease History - Family Disease History Family History: Unable to Obtain Review of Systems Unable to obtain ROS, reason: pt intubated Physical Exam Vital Signs: Vital Signs Temperature 98.1 F 09/12/17 14:00 Pulse Rate 75 09/12/17 14:00 Respiratory Rate 26 H 09/12/17 14:09 Blood Pressure 139/73 09/12/17 14:00 O2 Sat by Pulse Oximetry (%) 96 09/12/17 13:15 Constitutional: Yes: Calm Eyes: Yes: Conjunctiva Clear HENT: Yes: Atraumatic Cardiovascular: Yes: JVD, S1, S2 Respiratory: Yes: Mechanically Ventilated, Rhonchi Gastrointestinal: Yes: Soft Renal/: Yes: Freeman Present Musculoskeletal: Yes: Muscle Weakness Edema: Yes Edema: LLE: 2+, RLE: 2+ Neurological: Yes: Lethargy Labs: CBC, BMP 09/12/17 05:00 10/26/17 05:00 Laboratory Tests 09/01/17 09/02/17 09/09/17 09:05 05:00 05:00 WBC Hgb Sodium Potassium Chloride Carbon Dioxide Anion Gap BUN Creatinine 1.5 H Calcium Hepatitis A IgM Ab Negative Hep Bs Antigen Negative Hep B Core IgM Ab Negative Hepatitis C Ab (EIA) <0.1 HIV 1&2 Antibody Screen Negative HIV P24 Antigen Negative 09/09/17 09/10/17 09/10/17 06:15 05:00 05:00 WBC Hgb 9.0 L Sodium Potassium Chloride Carbon Dioxide Anion Gap BUN Creatinine 1.8 H 1.9 H Calcium Hepatitis A IgM Ab Hep Bs Antigen Hep B Core IgM Ab Hepatitis C Ab (EIA) HIV 1&2 Antibody Screen HIV P24 Antigen 09/11/17 09/11/17 09/12/17 05:00 05:00 05:00 WBC 12.6 H Hgb 7.9 L D 7.9 L Sodium Potassium Chloride Carbon Dioxide Anion Gap BUN 64 H D Creatinine 2.8 H D Calcium Hepatitis A IgM Ab Hep Bs Antigen Hep B Core IgM Ab Hepatitis C Ab (EIA) HIV 1&2 Antibody Screen HIV P24 Antigen 09/12/17 05:00 WBC Hgb Sodium 136 Potassium 3.5 Chloride 101 Carbon Dioxide 22 Anion Gap 13 BUN 75 H Creatinine 3.1 H Calcium 7.1 L Hepatitis A IgM Ab Hep Bs Antigen Hep B Core IgM Ab Hepatitis C Ab (EIA) HIV 1&2 Antibody Screen HIV P24 Antigen Imaging - Results Chest X-ray: Report Reviewed Assessment/Plan Current Medications Generic Name Dose Route Start Last Admin Trade Name Freq PRN Reason Stop Dose Admin Acetaminophen 650 mg 09/07/17 05:53 09/11/17 04:55 Tylenol - NR 650 mg Q6H PRN Administration FEVER OR PAIN Albumin Human 12.5 gm 09/12/17 22:00 Albumin Human 25% IVPB 09/15/17 10:01 BID [facility] Bacitracin 1 applic 09/02/17 10:00 09/12/17 09:27 Bacitracin - TP 1 applic DAILY [facility] Administration Chlorhexidine Gluconate 15 ml 09/08/17 12:30 09/12/17 09:28 Peridex - MM 15 ml BID [facility] Administration Ferrous Sulfate 325 mg 09/05/17 12:00 09/12/17 09:28 Feosol - PO Not Given DAILY [facility] Folic Acid 1 mg 09/02/17 10:00 09/12/17 09:28 Folic Acid - PO Not Given DAILY [facility] Furosemide 40 mg 09/13/17 06:00 Lasix Injection - IVPUSH BID@0600,1400 [facility] Heparin Sodium (Porcine) 5,000 unit 09/02/17 06:00 09/11/17 22:39 Heparin - SQ 5,000 unit TID [facility] Administration Propofol 100 mls @ 5.898 mls/hr 09/07/17 07:30 09/12/17 12:58 Diprivan - IVPUSH 23 mls/hr TITR [facility] Administration Protocol 10 MCG/KG/MIN Cefepime HCl 0.5 gm/ Dextrose 100 mls @ 100 mls/hr 09/11/17 10:00 09/12/17 09: 28 IVPB 100 mls/hr DAILY [facility] Administration Multivitamins/Minerals 1 each 09/02/17 10:00 09/12/17 09:28 Theragran-M PO Not Given DAILY [facility] Pantoprazole Sodium 40 mg 09/09/17 18:45 09/12/17 09:28 Protonix Iv IVPUSH 40 mg DAILY [facility] Administration Sevelamer Carbonate 800 mg 09/12/17 17:30 Renvela - PO TIDCM [facility] Thiamine HCl 100 mg 09/02/17 10:00 09/12/17 09:29 Vitamin B1 - PO Not Given DAILY [facility] Impression 1. ALEXANDRA 2. fluid overload 3. hypoalbuminemia 4. respiratory failure requiring intubation 5. anemia 6. etoh abuse 7. fevers Plan - will order renal workup - pt appears fluid overloaded and will need to be diuresed - will require albumin with lasix - monitor urine output - check ua and prt to [employer] supervisor ratio - check compliment levels - check jeanie - r/o immune involvement - follow up ALISA report - discussed with medical team - vent support - will comment more on etiology of ALEXANDRA after more data is gathered - will follow Dr Peres
--- NOTE | 2017-09-12 15:34 | PN ---
Teaching Attending Note Name of Resident: Tejal Ortiz ATTENDING PHYSICIAN STATEMENT I saw and evaluated the patient. I reviewed the resident's note and discussed the case with the resident. I agree with the resident's findings and plan as documented. SUBJECTIVE: Patient seen and examined in the ICU. Remains intubated and sedated. Fever better. ALISA did not reveal endocarditis. No pressors. AC Mode of vent. CXR : Rotated/minimal change/possible mild improvement in right effusion Intake & Output 09/09/17 09/10/17 09/11/17 09/12/17 23:59 23:59 23:59 23:59 Intake Total 3877 1851.5 184 Output Total 9080 257 0707 300 Balance -1700 3177 751.5 -116 Weight 210 lb 208 lb 11.2 oz 212 lb 4 oz 212 lb 4.8 oz Last Vital Signs Temp Pulse Resp BP Pulse Ox 98.1 F 75 39 H 139/73 96 09/12/17 14:00 09/12/17 14:00 09/12/17 15:31 09/12/17 14:00 09/12/17 13:15 Active Medications Acetaminophen (Tylenol -) 650 mg NR Q6H PRN PRN Reason: FEVER OR PAIN Last Admin: 09/11/17 04:55 Dose: 650 mg Albumin Human (Albumin Human 25%) 25 gm IVPB BID [facility] Stop: 09/14/17 22:01 Bacitracin (Bacitracin -) 1 applic TP DAILY [facility] Last Admin: 09/12/17 09:27 Dose: 1 applic Chlorhexidine Gluconate (Peridex -) 15 ml MM BID [facility] Last Admin: 09/12/17 09:28 Dose: 15 ml Ferrous Sulfate (Feosol -) 325 mg PO DAILY [facility] Last Admin: 09/12/17 09:28 Dose: Not Given Folic Acid (Folic Acid -) 1 mg PO DAILY [facility] Last Admin: 09/12/17 09:28 Dose: Not Given Furosemide (Lasix Injection -) 40 mg IVPUSH BID@0600,1400 [facility] Heparin Sodium (Porcine) (Heparin -) 5,000 unit SQ TID [facility] Last Admin: 09/11/17 22:39 Dose: 5,000 unit Propofol (Diprivan -) 100 mls @ 5.898 mls/hr IVPUSH TITR [facility]; 10 MCG/KG/MIN PRN Reason: Protocol Last Admin: 09/12/17 12:58 Dose: 23 mls/hr Cefepime HCl 0.5 gm/ Dextrose 100 mls @ 100 mls/hr IVPB DAILY [facility] Last Admin: 09/12/17 09:28 Dose: 100 mls/hr Multivitamins/Minerals (Theragran-M) 1 each PO DAILY [facility] Last Admin: 09/12/17 09:28 Dose: Not Given Pantoprazole Sodium (Protonix Iv) 40 mg IVPUSH DAILY [facility] Last Admin: 09/12/17 09:28 Dose: 40 mg Sevelamer Carbonate (Renvela -) 800 mg PO TIDCM [facility] Thiamine HCl (Vitamin B1 -) 100 mg PO DAILY [facility] Last Admin: 09/12/17 09:29 Dose: Not Given Gen: Intubated and sedated Heart: RRR Lung: bilateral scattered rhonchi Abd: soft, nontender Ext: + edema Laboratory Results - last 24 hr 09/12/17 09/12/17 09/12/17 05:00 05:00 05:00 WBC 12.6 H RBC 2.53 L Hgb 7.9 L Hct 23.1 L MCV 91.3 MCH 31.1 MCHC 34.1 RDW 15.8 Plt Count 339 D MPV 7.6 Neutrophils % 83.1 H Lymphocytes % 8.1 Monocytes % 6.7 Eosinophils % 1.5 Basophils % 0.6 Sodium 136 Potassium 3.5 Chloride 101 Carbon Dioxide 22 Anion Gap 13 BUN 75 H Creatinine 3.1 H Random Glucose 103 Serum Osmolality 305 Calcium 7.1 L Phosphorus 6.7 H Magnesium 2.4 Urine Osmolality Ur Random Sodium Ur Random Potassium Ur Random Chloride Urine Creatinine Vancomycin Pre-Dose 09/12/17 09/12/17 09/12/17 08:00 08:00 08:00 WBC RBC Hgb Hct MCV MCH MCHC RDW Plt Count MPV Neutrophils % Lymphocytes % Monocytes % Eosinophils % Basophils % Sodium Potassium Chloride Carbon Dioxide Anion Gap BUN Creatinine Random Glucose Serum Osmolality Calcium Phosphorus Magnesium Urine Osmolality 302 D Ur Random Sodium Cancelled 17 Ur Random Potassium 37.0 Ur Random Chloride 10 Urine Creatinine 63.2 Vancomycin Pre-Dose 09/12/17 09:15 WBC RBC Hgb Hct MCV MCH MCHC RDW Plt Count MPV Neutrophils % Lymphocytes % Monocytes % Eosinophils % Basophils % Sodium Potassium Chloride Carbon Dioxide Anion Gap BUN Creatinine Random Glucose Serum Osmolality Calcium Phosphorus Magnesium Urine Osmolality Ur Random Sodium Ur Random Potassium Ur Random Chloride Urine Creatinine Vancomycin Pre-Dose 24.903 H* D ASSESSMENT AND PLAN: Acute Hypoxic Respiratory Failure Staph Pneumonia MSSA Bacteremia -> Endocarditis ruled out Septic Shock Alcohol Dependence ARF - ABX per ID - O2 to keep SpO2 >90% - Sedation vacation - Spontaneous breathing trials with hopes of extubation in the next 1 to 2 days - Enteral feeds - DVT/GI prophylaxis - Renal evaluation noted Dr Griffin Critical care time spent in reviewing chart, evaluating patient and formulating plan 35 min
[2017-09-12] MEDS: FUROSEMIDE 40 MG/4 ML INJECTABLE VIAL IVPUSH SCH (17:02)
[2017-09-12] MEDS: ALBUMIN HUMAN 25% 12.5 GM/50 ML VIAL IVPB SCH (17:11)
[2017-09-12] MEDS: SEVELAMER CARBONATE 800 MG TAB (FP) PO SCH (17:12)
[2017-09-12 17:29] LABS: URINE CREATININE 39.5 mg/dL (20-370)
--- NOTE | 2017-09-12 19:02 | PN ---
Progress Note, Physician Chief Complaint: Events noted Remains on mechanical ventilation History of Present Illness: For ALISA today Normaotensive and afebrile - Current Medication List Current Medications: Active Medications Acetaminophen (Tylenol -) 650 mg NR Q6H PRN PRN Reason: FEVER OR PAIN Last Admin: 09/11/17 04:55 Dose: 650 mg Albumin Human (Albumin Human 25%) 25 gm IVPB BID@0600,1800 [facility] Stop: 09/15/17 06:01 Last Admin: 09/12/17 17:11 Dose: 25 gm Bacitracin (Bacitracin -) 1 applic TP DAILY [facility] Last Admin: 09/12/17 09:27 Dose: 1 applic Chlorhexidine Gluconate (Peridex -) 15 ml MM BID [facility] Last Admin: 09/12/17 09:28 Dose: 15 ml Ferrous Sulfate (Feosol -) 325 mg PO DAILY [facility] Last Admin: 09/12/17 17:13 Dose: 325 mg Folic Acid (Folic Acid -) 1 mg PO DAILY [facility] Last Admin: 09/12/17 17:13 Dose: 1 mg Furosemide (Lasix Injection -) 40 mg IVPUSH BID@06,18 [facility] Stop: 09/15/17 06:01 Last Admin: 09/12/17 17:02 Dose: 40 mg Heparin Sodium (Porcine) (Heparin -) 5,000 unit SQ TID [facility] Last Admin: 09/11/17 22:39 Dose: 5,000 unit Propofol (Diprivan -) 100 mls @ 5.898 mls/hr IVPUSH TITR [facility]; 10 MCG/KG/MIN PRN Reason: Protocol Last Titration: 09/12/17 13:45 Dose: 0 mcg/kg/min Cefepime HCl 0.5 gm/ Dextrose 100 mls @ 100 mls/hr IVPB DAILY [facility] Last Admin: 09/12/17 09:28 Dose: 100 mls/hr Multivitamins/Minerals (Theragran-M) 1 each PO DAILY [facility] Last Admin: 09/12/17 17:13 Dose: 1 each Pantoprazole Sodium (Protonix Iv) 40 mg IVPUSH DAILY [facility] Last Admin: 09/12/17 09:28 Dose: 40 mg Sevelamer Carbonate (Renvela -) 800 mg PO TIDCM [facility] Last Admin: 09/12/17 17:12 Dose: 800 mg Thiamine HCl (Vitamin B1 -) 100 mg PO DAILY [facility] Last Admin: 09/12/17 17:13 Dose: 100 mg - Objective Vital Signs: Vital Signs Temperature 98.9 F 09/12/17 18:00 Pulse Rate 81 09/12/17 18:00 Respiratory Rate 27 H 09/12/17 18:03 Blood Pressure 114/55 09/12/17 18:00 O2 Sat by Pulse Oximetry (%) 96 09/12/17 13:15 Cardiovascular: Yes: Regular Rate and Rhythm, S1, S2 Respiratory: Yes: Diminished, Mechanically Ventilated, Rhonchi Gastrointestinal: Yes: Normal Bowel Sounds, Soft. No: Tenderness Edema: Yes Edema: LLE: Trace, RLE: Trace Labs: CBC, BMP 09/12/17 05:00 09/12/17 05:00 Problem List - Problems (1) Acute diastolic heart failure Code(s): I50.31 - ACUTE DIASTOLIC (CONGESTIVE) HEART FAILURE (2) Anemia Code(s): D64.9 - ANEMIA, UNSPECIFIED Qualifiers: Anemia type: unspecified type Qualified Code(s): D64.9 - Anemia, unspecified; D64.9 - Anemia, unspecified (3) History of alcohol abuse Code(s): Z87.898 - PERSONAL HISTORY OF OTHER SPECIFIED CONDITIONS (4) Pneumonia Code(s): J18.9 - PNEUMONIA, UNSPECIFIED ORGANISM Qualifiers: Pneumonia type: aspiration pneumonia (5) Respiratory failure with hypoxia Code(s): J96.91 - RESPIRATORY FAILURE, UNSPECIFIED WITH HYPOXIA Qualifiers: Chronicity: acute Qualified Code(s): J96.01 - Acute respiratory failure with hypoxia; J96.01 - Acute respiratory failure with hypoxia; J96.01 - Acute respiratory failure with hypoxia (7) Abuse, drug or alcohol Code(s): F19.10 - OTHER PSYCHOACTIVE SUBSTANCE ABUSE, UNCOMPLICATED Assessment/Plan 1. Acute hypoxic respiratory failure, remains intubated/sedated, pulmonary infiltrates/pulmonary edema improving 2. Cavitary pneumonia, MSSA bacteremia suspect septic emboli, post septic shock , suspect endocarditis plan for ALISA 3. Probable diastolic LV dysfunction with congestive heart failure, volume overload, resolving 4. History of alcohol dependence 5. Acute renal insufficiency 6. Anemia PLAN: 1. ALISA performed today by bedside in ICU. Patient already sedated on Propofol drip. Consent was obtained. Preliminary result reveals no evidence of valvular vegetations. There is a filamentous linear echodensity likely represents strand on aortic valve, but not evidence of vegetations. There is not evidence of abscess. Mild MR, no evidence of thrombus in LA appendage and no intracardiac shunt. No pericardial effusion, but presence of pleural effusion. LV function could not be accurately assessed. Official report is to follow. 2. Continue Lasix 40 3. Ventilator management as per the critical care team 4. Antibiotics as per ID service 5. Enteral feeds, DVT and GI prophylaxis and librium taper as tolerated Critical Further plans are to follow.Notified critical care team Jordon Gtz MD
[2017-09-12] MEDS ORDERED: ALBUMIN HUMAN 25% 12.5 GM/50 ML VIAL IVPB SCH (22:00)
[2017-09-12] MEDS: HEPARIN NA (PORCINE) 5,000 UNITS/ML 1ML VIAL SQ SCH (22:28)
[2017-09-13] MEDS: ALBUMIN HUMAN 25% 12.5 GM/50 ML VIAL IVPB SCH ×2 (05:47→18:10)
[2017-09-13] MEDS: HEPARIN NA (PORCINE) 5,000 UNITS/ML 1ML VIAL SQ SCH ×3 (05:48→21:38)
[2017-09-13] MEDS: FUROSEMIDE 40 MG/4 ML INJECTABLE VIAL IVPUSH SCH ×2 (05:49→18:09)
[2017-09-13] MEDS ORDERED: FUROSEMIDE 40 MG/4 ML INJECTABLE VIAL IVPUSH SCH (06:00)
[2017-09-13 06:49] LABS: BASOPHIL 0.9 % (0-2.0); EOSINOPHIL 1.8 % (0-4.5); MCH 31.7 pg (25.7-33.7); MCHC 34.8 g/dl (32.0-35.9); MEAN CELL VOLUME 90.9 fl (80-96); MEAN PLT VOLUME 7.3 fl (7.5-11.1); NEUTROPHILS 79.2 % (42.8-82.8); PLATELET COUNT 437 K/MM3 (134-434); RDW 15.9 % (11.9-15.9); WHITE BLOOD COUNT 10.4 K/mm3 (4.0-10.0)
[2017-09-13 07:11] LABS: ALBUMIN 1.2 g/dl (3.4-5.0); ANION GAP 14 (8-16); CALCIUM 7.1 mg/dL (8.5-10.1); CO2 20 mmol/L (21-32); GLUCOSE,RANDOM 103 mg/dL (74-106); MAGNESIUM 2.5 mg/dL (1.8-2.4)
[2017-09-13 07:15] LABS: ALK PHOS 123 U/L (45-117); BILIRUBIN,TOTAL 0.7 mg/dL (0.2-1.0); CREATININE 3.3 mg/dL (0.7-1.3); PHOSPHOROUS 7.2 mg/dL (2.5-4.9); SGOT/AST 39 U/L (15-37); SGPT/ALT 7 U/L (12-78)
--- NOTE | 2017-09-13 07:15 | PN ---
Physical Exam: SUBJECTIVE: Patient seen and examined at bedside. h eis still sedated and intubated. No acute events over night , afebrile for 48 hours . open his eyes and follow some commands. OBJECTIVE: Vital Signs Period Temp Pulse Resp BP Sys/Jeff Pulse Ox Last 24 Hr 98.1 F-99.2 F 75-94 24-39 114-154/55-77 94-100 GENERAL: intubated , sedated HEAD: Normal with no signs of trauma. EYES: conjunctiva clear. ENT: mois mucous membranes. LUNGS: Intubated B/L coarse crackles, no accessory muscle use. HEART: S1, S2 without murmur, rub or gallop. ABDOMEN: Obese,soft, nontender, nondistended, normoactive bowel sounds, no guarding, no rebound tenderness, EXTREMITIES: 2+ pitting edema. NEUROLOGICAL: sedated SKIN: Warm, dry, no rashes or lesions noted Laboratory Results - last 24 hr 09/12/17 09/12/17 09/12/17 05:00 08:00 08:00 Serum Osmolality 305 Urine Osmolality 302 D U Random Total Protein Ur Random Sodium Cancelled Ur Random Potassium Ur Random Chloride Urine Creatinine Protein/Creatinin Ratio Vancomycin Pre-Dose 09/12/17 09/12/17 09/12/17 08:00 09:15 15:30 Serum Osmolality Urine Osmolality U Random Total Protein 135 H Ur Random Sodium 17 Ur Random Potassium 37.0 Ur Random Chloride 10 Urine Creatinine 63.2 39.5 Protein/Creatinin Ratio 3.4 Vancomycin Pre-Dose 24.903 H* D Active Medications Generic Name Dose Route Start Last Admin Trade Name Freq PRN Reason Stop Dose Admin Acetaminophen 650 mg 09/07/17 05:53 09/11/17 04:55 Tylenol - NR 650 mg Q6H PRN Administration FEVER OR PAIN Albumin Human 25 gm 09/12/17 18:00 09/13/17 05:47 Albumin Human 25% IVPB 09/15/17 06:01 25 gm BID@0600,1800 [facility] Administration Bacitracin 1 applic 09/02/17 10:00 09/12/17 09:27 Bacitracin - TP 1 applic DAILY [facility] Administration Chlorhexidine Gluconate 15 ml 09/08/17 12:30 09/12/17 22:28 Peridex - MM 15 ml BID [facility] Administration Ferrous Sulfate 325 mg 09/05/17 12:00 09/12/17 17:13 Feosol - PO 325 mg DAILY [facility] Administration Folic Acid 1 mg 09/02/17 10:00 09/12/17 17:13 Folic Acid - PO 1 mg DAILY [facility] Administration Furosemide 40 mg 09/12/17 18:00 09/13/17 05:49 Lasix Injection - IVPUSH 09/15/17 06:01 40 mg BID@06,18 [facility] Administration Heparin Sodium (Porcine) 5,000 unit 09/02/17 06:00 09/13/17 05:48 Heparin - SQ 5,000 unit TID [facility] Administration Propofol 100 mls @ 5.898 mls/hr 09/07/17 07:30 09/12/17 13:45 Diprivan - IVPUSH 0 mcg/kg/min TITR [facility] Titration Protocol 10 MCG/KG/MIN Cefepime HCl 0.5 gm/ Dextrose 100 mls @ 100 mls/hr 09/11/17 10:00 09/12/17 09: 28 IVPB 100 mls/hr DAILY [facility] Administration Multivitamins/Minerals 1 each 09/02/17 10:00 09/12/17 17:13 Theragran-M PO 1 each DAILY [facility] Administration Pantoprazole Sodium 40 mg 09/09/17 18:45 09/12/17 09:28 Protonix Iv IVPUSH 40 mg DAILY [facility] Administration Sevelamer Carbonate 800 mg 09/12/17 17:30 09/12/17 17:12 Renvela - PO 800 mg TIDCM [facility] Administration Thiamine HCl 100 mg 09/02/17 10:00 09/12/17 17:13 Vitamin B1 - PO 100 mg DAILY [facility] Administration Microbiology 09/08/17 05:45 Blood - Peripheral Venous Blood Culture - Final NO GROWTH AFTER 5 DAYS INCUBATION 09/08/17 05:45 Blood - Peripheral Venous Blood Culture - Final NO GROWTH AFTER 5 DAYS INCUBATION 09/10/17 09:35 Sputum - Endotrachea Suction/Ventilator Gram Stain - Final 09/10/17 09:35 Sputum - Endotrachea Suction/Ventilator Sputum Culture - Final Yeast Like Organism 09/10/17 10:00 Blood - Peripheral Venous Blood Culture - Preliminary NO GROWTH OBTAINED AFTER 48 HOURS, INCUBATION TO CONTINUE FOR 3 DAYS. 09/10/17 10:00 Blood - Peripheral Venous Blood Culture - Preliminary NO GROWTH OBTAINED AFTER 48 HOURS, INCUBATION TO CONTINUE FOR 3 DAYS. 09/08/17 18:07 Pleural Fluid Gram Stain - Final 09/08/17 18:07 Pleural Fluid Body Fluid Culture - Final NO GROWTH OF AEROBIC ORGANISMS AFTER 48 HOURS INCUBATION 09/08/17 18:07 Pleural Fluid Anaerobic Culture - Final NO ANAEROBES WERE ISOLATED 09/10/17 09:35 Urine - Urine Freeman Urine Culture - Final NO GROWTH OBTAINED 09/06/17 11:02 Blood - Peripheral Venous Blood Culture - Final NO GROWTH AFTER 5 DAYS INCUBATION 09/10/17 09:05 Stool Clostridium difficile Antigen (KHRIS) - Final 09/10/17 09:05 Stool Clostridium difficile Toxin Assay - Final 09/08/17 18:00 Pleural Fluid AFB Smear Concentration - Final 09/08/17 18:00 Pleural Fluid Mycobacterial Culture - Preliminary 09/06/17 11:02 Blood - Peripheral Venous Blood Culture - Final Staphylococcus Aureus 09/08/17 18:00 Pleural Fluid MAGI Preparation - Preliminary 09/08/17 18:00 Pleural Fluid Fungal Culture - Preliminary 09/04/17 08:15 Blood - Peripheral Venous Blood Culture - Final NO GROWTH AFTER 5 DAYS INCUBATION 09/04/17 08:00 Blood - Peripheral Venous Blood Culture - Final NO GROWTH AFTER 5 DAYS INCUBATION 09/05/17 21:00 Sputum - Endotrachea Suction/Ventilator Gram Stain - Final 09/05/17 21:00 Sputum - Endotrachea Suction/Ventilator Sputum Culture - Final Yeast Like Organism 09/06/17 10:20 Stool Clostridium difficile Antigen (KHRIS) - Final 09/06/17 10:20 Stool Clostridium difficile Toxin Assay - Final 09/02/17 00:00 Sputum - Endotracheal Suction W/O Vent Gram Stain - Final 09/02/17 00:00 Sputum - Endotracheal Suction W/O Vent Sputum Culture - Final Yeast Like Organism 09/03/17 12:15 Urine - Urine - Catheterized Urine Culture - Final NO GROWTH OBTAINED 09/01/17 05:00 Blood - Peripheral Venous Blood Culture - Final Staphylococcus Aureus 09/01/17 00:01 Blood - Peripheral Venous Blood Culture - Final Staphylococcus Aureus 09/01/17 15:50 Blood - Peripheral Venous Blood Culture - Final Staphylococcus Aureus 09/01/17 15:55 Blood - Peripheral Venous Blood Culture - Final Staphylococcus Aureus 08/31/17 23:22 Urine - Urine Clean Catch Urine Culture - Final Contaminated: Please Repeat ASSESSMENT/PLAN: # MSSA bactermia with possible right side endocarditis Sepsis #Respiratory failure #Worsening kidney function ALEXANDRA secondary to sepsis vs medication SE: consult nephrology plan * afebrile over 48 hour, * F/U cultures (blood, sputum, urine) * Continue vanco/cefepim * cefepim has been decreased to 0.5 Q24 hour * patient must have occult source of infection * EGD yesterday ,shows no esophageal varices * bed side ALISA yesterday did show any vegetation * Vanco troph random yesterday 13.1 , another dose of vanco was given yesterday * sputum culture shows yeast like organism * repeat blood culture * Diflucan 400 mg then 100mg daily * vanco troph yesterday 24.9 will hold on vanco for now Critical care time spent today 38 minutes ( See resident attending full note)_ Visit type - Emergency Visit Emergency Visit: Yes ED Registration Date: 08/31/17 Care time: The patient presented to the Emergency Department on the above date and was hospitalized for further evaluation of their emergent condition. - New Patient This patient is new to me today: No - Critical Care Critical Care patient: Yes Total Critical Care Time (in minutes): 40 Critical Care Statement: The care of this patient involved high complexity decision making to prevent further life threatening deterioration of the patient 's condition and/or to evaluate & treat vital organ system(s) failure or risk of failure.
--- NOTE | 2017-09-13 07:26 | PN ---
Teaching Attending Note Name of Resident: Dominick Kasper ATTENDING PHYSICIAN STATEMENT I saw and evaluated the patient. I reviewed the resident's note and discussed the case with the resident. I agree with the resident's findings and plan as documented. SUBJECTIVE:Remains intubated on 30 % FIO2 Vancomycin and Cefepime Fevers have come down ALISA noted OBJECTIVE: ASSESSMENT AND PLAN: Microbiology 09/10/17 09:35 Sputum - Endotrachea Suction/Ventilator Gram Stain - Final 09/10/17 09:35 Sputum - Endotrachea Suction/Ventilator Sputum Culture - Final Yeast Like Organism 09/10/17 10:00 Blood - Peripheral Venous Blood Culture - Preliminary NO GROWTH OBTAINED AFTER 48 HOURS, INCUBATION TO CONTINUE FOR 3 DAYS. 09/10/17 10:00 Blood - Peripheral Venous Blood Culture - Preliminary NO GROWTH OBTAINED AFTER 48 HOURS, INCUBATION TO CONTINUE FOR 3 DAYS. Laboratory Tests 09/12/17 09/12/17 09/13/17 05:00 05:00 06:20 WBC 12.6 H Pending Hgb 7.9 L Pending Hct 23.1 L Pending Plt Count 339 D Pending BUN 75 H Creatinine 3.1 H PROSPER Screen c-ANCA Proteinase 3 (PR3) p-ANCA Atypical p-ANCA Myeloperoxidase Ab Double Strand DNA Ab Glomerular Base Memb Ab 09/13/17 09/13/17 06:20 06:20 WBC Hgb Hct Plt Count BUN Pending Creatinine Pending PROSPER Screen Pending c-ANCA Pending Proteinase 3 (PR3) Pending p-ANCA Pending Atypical p-ANCA Pending Myeloperoxidase Ab Pending Double Strand DNA Ab Pending Glomerular Base Memb Ab Pending Assessment MSSA bacteremia Sepsis syndrome Cavitary staph PNA Fevers persistant now down not sure why ALEXANDRA Fluid overload Plan Vancomycin on hold for today will check level tomorrow Cefepime would continue given possible fever response once started Diflucan 100mg daily 2 sputums yeast Renal work up ALEXANDRA CRP Problem List - Problems (1) Pneumonia Code(s): J18.9 - PNEUMONIA, UNSPECIFIED ORGANISM Qualifiers: Pneumonia type: aspiration pneumonia (2) Respiratory failure with hypoxia Code(s): J96.91 - RESPIRATORY FAILURE, UNSPECIFIED WITH HYPOXIA Qualifiers: Chronicity: acute Qualified Code(s): J96.01 - Acute respiratory failure with hypoxia; J96.01 - Acute respiratory failure with hypoxia; J96.01 - Acute respiratory failure with hypoxia (3) Staphylococcus aureus bacteremia Code(s): R78.81 - BACTEREMIA (5) Endocarditis due to Staphylococcus Code(s): I33.0 - ACUTE AND SUBACUTE INFECTIVE ENDOCARDITIS B95.8 - UNSP STAPHYLOCOCCUS THE CAUSE OF DISEASES CLASSD [id number]
[2017-09-13] MEDS: PROPOFOL 100 ML IVPUSH SCH ×3 (08:38→19:20)
[2017-09-13] MEDS: SEVELAMER CARBONATE 800 MG TAB (FP) PO SCH ×3 (08:39→16:40)
[2017-09-13] MEDS: PANTOPRAZOLE SODIUM 40 MG VIAL IVPUSH SCH (09:34)
[2017-09-13] MEDS: FOLIC ACID 1 MG TABLET (FP) PO SCH (09:34)
[2017-09-13] MEDS: MULTIVITAMINS THER W-MINERALS COMBO TABLET (FP) PO SCH (09:34)
[2017-09-13] MEDS: CHLORHEXIDINE GLUCONATE 0.12% 15ML CUP MM SCH ×2 (09:35→21:38)
[2017-09-13] MEDS: BACITRACIN 15 GM TUBE TOPICAL OINTMENT TP SCH (09:35)
[2017-09-13] MEDS: FERROUS SO4 325 MG TABLET (FP) PO SCH (09:35)
[2017-09-13] MEDS ORDERED: PT OWN MED DRAWER 7, Y5N ONE (09:36)
[2017-09-13] MEDS: THIAMINE HCL 100 MG TABLET (FP) PO SCH (09:36)
[2017-09-13] MEDS: FLUCONAZOLE 100 MG/NS 50 ML IVPB SCH (09:45)
[2017-09-13] MEDS: CEFEPIME 0.5 GM in DEXTROSE 5%-WATER - 100 ML IVPB SCH (09:45)
--- NOTE | 2017-09-13 10:25 | PN ---
Progress Note, Physician History of Present Illness: Awake on vent off sedation, low grade fever, hemodynamically stable. - Current Medication List Current Medications: Active Medications Acetaminophen (Tylenol -) 650 mg NR Q6H PRN PRN Reason: FEVER OR PAIN Last Admin: 09/11/17 04:55 Dose: 650 mg Albumin Human (Albumin Human 25%) 25 gm IVPB BID@0600,1800 [facility] Stop: 09/15/17 06:01 Last Admin: 09/13/17 05:47 Dose: 25 gm Bacitracin (Bacitracin -) 1 applic TP DAILY [facility] Last Admin: 09/13/17 09:35 Dose: 1 applic Chlorhexidine Gluconate (Peridex -) 15 ml MM BID [facility] Last Admin: 09/13/17 09:35 Dose: 15 ml Ferrous Sulfate (Feosol -) 325 mg PO DAILY [facility] Last Admin: 09/13/17 09:35 Dose: 325 mg Folic Acid (Folic Acid -) 1 mg PO DAILY [facility] Last Admin: 09/13/17 09:34 Dose: 1 mg Furosemide (Lasix Injection -) 40 mg IVPUSH BID@06,18 [facility] Stop: 09/15/17 06:01 Last Admin: 09/13/17 05:49 Dose: 40 mg Heparin Sodium (Porcine) (Heparin -) 5,000 unit SQ TID [facility] Last Admin: 09/13/17 05:48 Dose: 5,000 unit Propofol (Diprivan -) 100 mls @ 5.898 mls/hr IVPUSH TITR [facility]; 10 MCG/KG/MIN PRN Reason: Protocol Last Admin: 09/13/17 08:38 Dose: 23 mls/hr Cefepime HCl 0.5 gm/ Dextrose 100 mls @ 100 mls/hr IVPB DAILY [facility] Last Admin: 09/13/17 09:45 Dose: 100 mls/hr Fluconazole (Diflucan 100 Mg/Ns Premixed Ivpb -) 50 mls @ 50 mls/hr IVPB DAILY [facility] Last Admin: 09/13/17 09:45 Dose: 50 mls/hr Multivitamins/Minerals (Theragran-M) 1 each PO DAILY [facility] Last Admin: 09/13/17 09:34 Dose: 1 each Pantoprazole Sodium (Protonix Iv) 40 mg IVPUSH DAILY [facility] Last Admin: 09/13/17 09:34 Dose: 40 mg Sevelamer Carbonate (Renvela -) 800 mg PO TIDCM [facility] Last Admin: 09/13/17 08:39 Dose: 800 mg Thiamine HCl (Vitamin B1 -) 100 mg PO DAILY [facility] Last Admin: 09/13/17 09:36 Dose: 100 mg - Objective Vital Signs: Vital Signs Temperature 99.6 F 09/13/17 08:00 Pulse Rate 84 09/13/17 08:00 Respiratory Rate 27 H 09/13/17 08:00 Blood Pressure 132/66 09/13/17 08:00 O2 Sat by Pulse Oximetry (%) 95 09/12/17 22:00 Constitutional: Yes: No Distress, Calm Neck: Yes: Supple Cardiovascular: Yes: Regular Rate and Rhythm Respiratory: Yes: Intubated, Mechanically Ventilated, Rhonchi Gastrointestinal: Yes: Normal Bowel Sounds, Soft Edema: No Labs: CBC, BMP 09/13/17 06:20 09/13/17 06:20 INR, PTT INR 0.96 (0.82-1.09) 09/01/17 09:05 Problem List - Problems (1) Pneumonia Code(s): J18.9 - PNEUMONIA, UNSPECIFIED ORGANISM Qualifiers: Pneumonia type: aspiration pneumonia (2) Respiratory failure with hypoxia Code(s): J96.91 - RESPIRATORY FAILURE, UNSPECIFIED WITH HYPOXIA Qualifiers: Chronicity: acute Qualified Code(s): J96.01 - Acute respiratory failure with hypoxia; J96.01 - Acute respiratory failure with hypoxia; J96.01 - Acute respiratory failure with hypoxia (3) Staphylococcus aureus bacteremia Code(s): R78.81 - BACTEREMIA (4) Acute kidney injury Code(s): N17.9 - ACUTE KIDNEY FAILURE, UNSPECIFIED (6) Acute diastolic heart failure Code(s): I50.31 - ACUTE DIASTOLIC (CONGESTIVE) HEART FAILURE (7) History of alcohol abuse Code(s): Z87.898 - PERSONAL HISTORY OF OTHER SPECIFIED CONDITIONS (8) Anemia Code(s): D64.9 - ANEMIA, UNSPECIFIED Qualifiers: Anemia type: unspecified type Qualified Code(s): D64.9 - Anemia, unspecified; D64.9 - Anemia, unspecified Assessment/Plan Echo: 09/02/2017 Technical difficult study, prob preserved LV fxn, but can't r/ o RWMA 1. Acute hypoxic respiratory failure, remains intubated/sedated, pulmonary infiltrates/pulmonary edema 2. Cavitary pneumonia, MSSA bacteremia post septic shock, ALISA negative for endocarditis 3. Acute LV diastolic failure recurring 4. History of alcohol dependence 5. Acute kidney injury 6. Anemia PLAN: 1. Abx and antifungal course per ID, surveillance cx to document clearance 2. IV diuretics with f/u renal fxn, electrolyte and diuretic response, renal input appreciated 3. SBT per critical care team, transfuse to maintain Hgb>8.0 4. Enteral feeds, DVT and GI prophylaxis
--- NOTE | 2017-09-13 11:25 | PN ---
Physical Exam: SUBJECTIVE: Patient seen and examined; off pressers; intubated; turned off sedation this am. Afebrile, white count trending down. Repeat blood cultures pending. Wean trial this am, off sedation patient got tachypneic RR 40s; and hypoxic. OBJECTIVE: Vital Signs Period Temp Pulse Resp BP Sys/Jeff Pulse Ox Last 24 Hr 98.1 F-99.6 F 75-94 24-39 114-154/55-77 94-97 GENERAL: The intubated and sedated, eye opening LUNGS: coarse breath sounds HEART: Regular rate and rhythm, S1, S2 without murmur, rub or gallop. ABDOMEN: Soft, nontender, nondistended, normoactive bowel sounds, no guarding, no rebound, no hepatosplenomegaly, no masses. EXTREMITIES: 2+ pulses, warm, well-perfused, b/l UE edema NEUROLOGICAL: sedated; pupils reactive; eye opening; unable to follow commands Active Medications Generic Name Dose Route Start Last Admin Trade Name Freq PRN Reason Stop Dose Admin Acetaminophen 650 mg 09/07/17 05:53 09/11/17 04:55 Tylenol - NR 650 mg Q6H PRN Administration FEVER OR PAIN Albumin Human 25 gm 09/12/17 18:00 09/13/17 05:47 Albumin Human 25% IVPB 09/15/17 06:01 25 gm BID@0600,1800 [facility] Administration Bacitracin 1 applic 09/02/17 10:00 09/13/17 09:35 Bacitracin - TP 1 applic DAILY [facility] Administration Chlorhexidine Gluconate 15 ml 09/08/17 12:30 09/13/17 09:35 Peridex - MM 15 ml BID [facility] Administration Ferrous Sulfate 325 mg 09/05/17 12:00 09/13/17 09:35 Feosol - PO 325 mg DAILY [facility] Administration Folic Acid 1 mg 09/02/17 10:00 09/13/17 09:34 Folic Acid - PO 1 mg DAILY [facility] Administration Furosemide 40 mg 09/12/17 18:00 09/13/17 05:49 Lasix Injection - IVPUSH 09/15/17 06:01 40 mg BID@06,18 [facility] Administration Heparin Sodium (Porcine) 5,000 unit 09/02/17 06:00 09/13/17 05:48 Heparin - SQ 5,000 unit TID [facility] Administration Propofol 100 mls @ 5.898 mls/hr 09/07/17 07:30 09/13/17 08:38 Diprivan - IVPUSH 23 mls/hr TITR [facility] Administration Protocol 10 MCG/KG/MIN Cefepime HCl 0.5 gm/ Dextrose 100 mls @ 100 mls/hr 09/11/17 10:00 09/13/17 09: 45 IVPB 100 mls/hr DAILY [facility] Administration Fluconazole 50 mls @ 50 mls/hr 09/13/17 10:00 09/13/17 09:45 Diflucan 100 Mg/Ns Premixed Ivpb - IVPB 50 mls/hr DAILY [facility] Administration Multivitamins/Minerals 1 each 09/02/17 10:00 09/13/17 09:34 Theragran-M PO 1 each DAILY [facility] Administration Pantoprazole Sodium 40 mg 09/09/17 18:45 09/13/17 09:34 Protonix Iv IVPUSH 40 mg DAILY [facility] Administration Sevelamer Carbonate 800 mg 09/12/17 17:30 09/13/17 08:39 Renvela - PO 800 mg TIDCM [facility] Administration Thiamine HCl 100 mg 09/02/17 10:00 09/13/17 09:36 Vitamin B1 - PO 100 mg DAILY [facility] Administration ASSESSMENT/PLAN: 66 male with a past medical EtOH abuse and HTN who is admitted (08/31) for acute hypoxic respiratory failure requiring mechanical ventilation (09/02) and sepsis 2/2 cavitary PNA and MSSA bacteremia. Pt continues to have fever spikes despite antibiotics. ALISA pending; r/o endocarditis, need EGD prior to rule out esophageal varices. #acute hypoxic respiratory failure secondary to sepsis 2/2 cavitary PNA with MSSA bacteremia, -sedation vacation; wean trial -off pressers -cont IV Cefepime; and vanco; dose vanco according to levels -sputum cx + for yeast like organism; diflucan started -prelim blood cx negative; repeat cultures pending -AFB/MAGI pending -cxr;no gross changes -cont lasix 40mg bid -repeat cxr -ID consulted #paroxysmal atrial fib w rvr ; resolved -converted to NSR after 5mg cardizem IVP #r/o endocarditis; ALISA negative #Gastric ulcer found on EGD -non bleeding -path pending #loose stools-rectal tube -most likely due to tube feed; bulk feeds; banana flakes -C diff Ag and toxin negative #normotcytic anemia: stable -Trend H&H -Cont Ferrous Sulfate 325 mg PO DAILY [facility] -Transfuse hgb<7 #ALEXANDRA possibly from initial hypotension from sepsis, although is not improving -Strict I&Os, hines -trend cr -renal work up; -urine lytes -renal consult #EtOH abuse -MVI, thiamine 100mg PO qd, folic acid 1mg PO daily #hypokalemia:resolved #hypomagnesiemia:resolved #hyperphosphatemia: most likely sec to kidney injury -sevelemir TIB -change tube feeds to nepro #FEN -Hold IVF -Replete K and Mg -hold feeds for ALISA #PPX -DVT - heparin 5000U SQ TID; hold for procedure -GI - Pantoprazole 40mg IV daily Problem List - Problems (1) Endocarditis due to Staphylococcus Code(s): I33.0 - ACUTE AND SUBACUTE INFECTIVE ENDOCARDITIS B95.8 - UNSP STAPHYLOCOCCUS THE CAUSE OF DISEASES CLASSD ELSWHR (2) History of alcohol abuse Code(s): Z87.898 - PERSONAL HISTORY OF OTHER SPECIFIED CONDITIONS (3) Hypokalemia Code(s): E87.6 - HYPOKALEMIA (4) Hyponatremia Code(s): E87.1 - HYPO-OSMOLALITY AND HYPONATREMIA (5) Pneumonia Code(s): J18.9 - PNEUMONIA, UNSPECIFIED ORGANISM Qualifiers: Pneumonia type: aspiration pneumonia (6) Respiratory failure with hypoxia Code(s): J96.91 - RESPIRATORY FAILURE, UNSPECIFIED WITH HYPOXIA Qualifiers: Chronicity: acute Qualified Code(s): J96.01 - Acute respiratory failure with hypoxia; J96.01 - Acute respiratory failure with hypoxia; J96.01 - Acute respiratory failure with hypoxia (8) Staphylococcus aureus bacteremia Code(s): R78.81 - BACTEREMIA Visit type - Emergency Visit Emergency Visit: Yes ED Registration Date: 08/31/17 Care time: The patient presented to the Emergency Department on the above date and was hospitalized for further evaluation of their emergent condition. - New Patient This patient is new to me today: Yes Date on this admission: 09/13/17 - Critical Care Critical Care patient: Yes Total Critical Care Time (in minutes): 36 Critical Care Statement: The care of this patient involved high complexity decision making to prevent further life threatening deterioration of the patient 's condition and/or to evaluate & treat vital organ system(s) failure or risk of failure.
[2017-09-13 12:04] LABS: URINE APPEARANCE SLCLOUDY; URINE BILIRUBIN NEGATIVE (NEGATIVE); URINE BLOOD 2+ (NEGATIVE); URINE COLOR YELLOW; URINE GLUCOSE (UA) NEGATIVE (NEGATIVE); URINE KETONE NEGATIVE (NEGATIVE); URINE NITRITE NEGATIVE (NEGATIVE); URINE UROBILINOGEN NEGATIVE mg/dL (0.2-1.0)
--- NOTE | 2017-09-13 12:05 | PN ---
Teaching Attending Note Name of Resident: Tejal Ortiz ATTENDING PHYSICIAN STATEMENT I saw and evaluated the patient. I reviewed the resident's note and discussed the case with the resident. I agree with the resident's findings and plan as documented. SUBJECTIVE: Patient seen and examined in the ICU. Became very tachypneic to the 40's with desaturation to the low 90's while on wean trial with high pressure support. Changed back to AC mode of vent. No pressors. CXR: No gross change. Intake & Output 09/10/17 09/11/17 09/12/17 09/13/17 23:59 23:59 23:59 23:59 Intake Total 3877 1851.5 918 684 Output Total 700 1100 1700 450 Balance 3177 751.5 -782 234 Weight 208 lb 11.2 oz 212 lb 4 oz 212 lb 4.8 oz 210 lb 9.6 oz Last Vital Signs Temp Pulse Resp BP Pulse Ox 99.6 F 93 H 30 H 136/72 97 09/13/17 08:00 09/13/17 11:01 09/13/17 11:01 09/13/17 11:01 09/13/17 10:45 Active Medications Acetaminophen (Tylenol -) 650 mg NR Q6H PRN PRN Reason: FEVER OR PAIN Last Admin: 09/11/17 04:55 Dose: 650 mg Albumin Human (Albumin Human 25%) 25 gm IVPB BID@0600,1800 [facility] Stop: 09/15/17 06:01 Last Admin: 09/13/17 05:47 Dose: 25 gm Bacitracin (Bacitracin -) 1 applic TP DAILY [facility] Last Admin: 09/13/17 09:35 Dose: 1 applic Chlorhexidine Gluconate (Peridex -) 15 ml MM BID [facility] Last Admin: 09/13/17 09:35 Dose: 15 ml Ferrous Sulfate (Feosol -) 325 mg PO DAILY [facility] Last Admin: 09/13/17 09:35 Dose: 325 mg Folic Acid (Folic Acid -) 1 mg PO DAILY [facility] Last Admin: 09/13/17 09:34 Dose: 1 mg Furosemide (Lasix Injection -) 40 mg IVPUSH BID@06,18 [facility] Stop: 09/15/17 06:01 Last Admin: 09/13/17 05:49 Dose: 40 mg Heparin Sodium (Porcine) (Heparin -) 5,000 unit SQ TID [facility] Last Admin: 09/13/17 05:48 Dose: 5,000 unit Propofol (Diprivan -) 100 mls @ 5.898 mls/hr IVPUSH TITR [facility]; 10 MCG/KG/MIN PRN Reason: Protocol Last Admin: 09/13/17 08:38 Dose: 23 mls/hr Cefepime HCl 0.5 gm/ Dextrose 100 mls @ 100 mls/hr IVPB DAILY [facility] Last Admin: 09/13/17 09:45 Dose: 100 mls/hr Fluconazole (Diflucan 100 Mg/Ns Premixed Ivpb -) 50 mls @ 50 mls/hr IVPB DAILY [facility] Last Admin: 09/13/17 09:45 Dose: 50 mls/hr Multivitamins/Minerals (Theragran-M) 1 each PO DAILY [facility] Last Admin: 09/13/17 09:34 Dose: 1 each Pantoprazole Sodium (Protonix Iv) 40 mg IVPUSH DAILY [facility] Last Admin: 09/13/17 09:34 Dose: 40 mg Sevelamer Carbonate (Renvela -) 800 mg PO TIDCM [facility] Last Admin: 09/13/17 08:39 Dose: 800 mg Thiamine HCl (Vitamin B1 -) 100 mg PO DAILY [facility] Last Admin: 09/13/17 09:36 Dose: 100 mg Gen: Intubated and sedated Heart: RRR Lung: bilateral coarse rhonchi Abd: soft, nontender Ext: + edema Laboratory Results - last 24 hr 09/12/17 09/12/17 09/12/17 05:00 08:00 15:30 WBC RBC Hgb Hct MCV MCH MCHC RDW Plt Count MPV Neutrophils % Lymphocytes % Monocytes % Eosinophils % Basophils % Sodium Potassium Chloride Carbon Dioxide Anion Gap BUN Creatinine Creat Clearance w eGFR Random Glucose Serum Osmolality 305 Calcium Phosphorus Magnesium Total Bilirubin AST ALT Alkaline Phosphatase C-Reactive Protein Total Protein Albumin Urine Osmolality 302 D U Random Total Protein 135 H Urine Creatinine 39.5 Protein/Creatinin Ratio 3.4 09/13/17 09/13/17 09/13/17 06:20 06:20 06:20 WBC 10.4 H RBC 2.25 L Hgb 7.1 L D Hct 20.5 L MCV 90.9 MCH 31.7 MCHC 34.8 RDW 15.9 Plt Count 437 H D MPV 7.3 L Neutrophils % 79.2 Lymphocytes % 10.1 D Monocytes % 8.0 Eosinophils % 1.8 Basophils % 0.9 Sodium 135 L Potassium 3.5 Chloride 101 Carbon Dioxide 20 L Anion Gap 14 BUN 80 H Creatinine 3.3 H Creat Clearance w eGFR 18.79 Random Glucose 103 Serum Osmolality Calcium 7.1 L Phosphorus 7.2 H Magnesium 2.5 H Total Bilirubin 0.7 AST 39 H D ALT 7 L Alkaline Phosphatase 123 H C-Reactive Protein Cancelled Total Protein 6.0 L Albumin 1.2 L Urine Osmolality U Random Total Protein Urine Creatinine Protein/Creatinin Ratio ASSESSMENT AND PLAN: Acute Hypoxic Respiratory Failure Staph Pneumonia MSSA Bacteremia -> Endocarditis ruled out Septic Shock Alcohol Dependence ARF - Continue diuresis - Will attempt SBTs again later today - ABX per ID - O2 to keep SpO2 >90% - Sedation vacation - Enteral feeds - DVT/GI prophylaxis Dr Griffin Critical care time spent in reviewing chart, evaluating patient and formulating plan 35 min
[2017-09-13 12:06] LABS: URINE PROTEIN 1+ (NEGATIVE)
[2017-09-13 12:42] LABS: GRANULAR CASTS 5 /lpf; URINE BACTERIA RARE /hpf (NONE SEEN); URINE HYALINE CAST 1 /lpf; URINE MUCUS RARE; URINE RBC 16 /hpf (0-3); URINE WBC 5 /hpf (3-5)
[2017-09-13 12:49] LABS: C-REACTIVE PROTEIN 13.2 MG/DL (0.00-0.3)
--- NOTE | 2017-09-13 15:20 | PATH ---
Surgical Pathology Report Patient Name: KELLI ROBERTSON [facility]. Rec. 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 Specimen(s) Received A: BX GASTRIC ULCER B: BX ANTRUM AND BODY Clinical History Rule out varices Gastric ulcer Final Diagnosis A. STOMACH, GASTRIC ULCER, BIOPSY: GASTRIC BODY MUCOSA WITH MODERATE ACUTE AND CHRONIC INFLAMMATION, CONGESTION, AND REACTIVE CHANGES. IMMUNOHISTOCHEMICAL STAIN FOR H. PYLORI IS NEGATIVE. B. STOMACH, ANTRUM AND BODY, BIOPSY: GASTRIC BODY MUCOSA WITH MILD CHRONIC ACTIVE GASTRITIS. IMMUNOHISTOCHEMICAL STAIN FOR H. PYLORI IS NEGATIVE. Electronically Signed Katie Mitchell M.D. Gross Description A. Received in formalin, labeled "biopsy gastric ulcer" are 2 herrera, irregular portions of soft tissue measuring 0.1 and 0.2 cm. in greatest dimension. The specimens are submitted in toto in one cassette. B. Received in formalin, labeled "biopsy antrum and body" are 4 herrera, irregular portions of soft tissue ranging from 0.1-0.4 cm. in greatest dimension. The specimens are submitted in toto in one cassette. 09/12/2017 saudi09/12/2017
--- NOTE | 2017-09-13 15:53 | PN ---
Progress Note, Physician History of Present Illness: Pt seen and examined at bedside. He remains in the ICU intubated. - Current Medication List Current Medications: Active Medications Acetaminophen (Tylenol -) 650 mg NR Q6H PRN PRN Reason: FEVER OR PAIN Last Admin: 09/11/17 04:55 Dose: 650 mg Albumin Human (Albumin Human 25%) 25 gm IVPB BID@0600,1800 [facility] Stop: 09/15/17 06:01 Last Admin: 09/13/17 05:47 Dose: 25 gm Bacitracin (Bacitracin -) 1 applic TP DAILY [facility] Last Admin: 09/13/17 09:35 Dose: 1 applic Chlorhexidine Gluconate (Peridex -) 15 ml MM BID [facility] Last Admin: 09/13/17 09:35 Dose: 15 ml Ferrous Sulfate (Feosol -) 325 mg PO DAILY [facility] Last Admin: 09/13/17 09:35 Dose: 325 mg Folic Acid (Folic Acid -) 1 mg PO DAILY [facility] Last Admin: 09/13/17 09:34 Dose: 1 mg Furosemide (Lasix Injection -) 40 mg IVPUSH BID@06,18 [facility] Stop: 09/15/17 06:01 Last Admin: 09/13/17 05:49 Dose: 40 mg Heparin Sodium (Porcine) (Heparin -) 5,000 unit SQ TID [facility] Last Admin: 09/13/17 13:22 Dose: 5,000 unit Propofol (Diprivan -) 100 mls @ 5.898 mls/hr IVPUSH TITR [facility]; 10 MCG/KG/MIN PRN Reason: Protocol Last Admin: 09/13/17 08:38 Dose: 23 mls/hr Cefepime HCl 0.5 gm/ Dextrose 100 mls @ 100 mls/hr IVPB DAILY [facility] Last Admin: 09/13/17 09:45 Dose: 100 mls/hr Fluconazole (Diflucan 100 Mg/Ns Premixed Ivpb -) 50 mls @ 50 mls/hr IVPB DAILY [facility] Last Admin: 09/13/17 09:45 Dose: 50 mls/hr Multivitamins/Minerals (Theragran-M) 1 each PO DAILY [facility] Last Admin: 09/13/17 09:34 Dose: 1 each Pantoprazole Sodium (Protonix Iv) 40 mg IVPUSH DAILY [facility] Last Admin: 09/13/17 09:34 Dose: 40 mg Sevelamer Carbonate (Renvela -) 800 mg PO TIDCM [facility] Last Admin: 09/13/17 13:22 Dose: 800 mg Thiamine HCl (Vitamin B1 -) 100 mg PO DAILY [facility] Last Admin: 09/13/17 09:36 Dose: 100 mg - Objective Vital Signs: Vital Signs Temperature 100.6 F H 09/13/17 14:52 Pulse Rate 96 H 09/13/17 14:52 Respiratory Rate 20 09/13/17 14:52 Blood Pressure 120/73 09/13/17 14:52 O2 Sat by Pulse Oximetry (%) 97 09/13/17 12:16 Constitutional: Yes: Calm Eyes: Yes: Conjunctiva Clear HENT: Yes: Atraumatic Neck: Yes: Supple Cardiovascular: Yes: S1, S2 Respiratory: Yes: Mechanically Ventilated Gastrointestinal: Yes: Soft Genitourinary: Yes: Freeman Present Musculoskeletal: Yes: Muscle Weakness Edema: Yes Edema: LLE: 1+, RLE: 1+ Neurological: Yes: Lethargy Labs: CBC, BMP 09/13/17 06:20 09/13/17 06:20 INR, PTT INR 0.96 (0.82-1.09) 09/01/17 09:05 - ....Imaging Chest X-ray: Report Reviewed Problem List - Problems (1) Acute kidney injury Code(s): N17.9 - ACUTE KIDNEY FAILURE, UNSPECIFIED (2) Anemia Code(s): D64.9 - ANEMIA, UNSPECIFIED Qualifiers: Anemia type: unspecified type Qualified Code(s): D64.9 - Anemia, unspecified; D64.9 - Anemia, unspecified (3) Hyponatremia Code(s): E87.1 - HYPO-OSMOLALITY AND HYPONATREMIA (4) Respiratory failure with hypoxia Code(s): J96.91 - RESPIRATORY FAILURE, UNSPECIFIED WITH HYPOXIA Qualifiers: Chronicity: acute Qualified Code(s): J96.01 - Acute respiratory failure with hypoxia; J96.01 - Acute respiratory failure with hypoxia; J96.01 - Acute respiratory failure with hypoxia (5) Staphylococcus aureus bacteremia Code(s): R78.81 - BACTEREMIA (6) Withdrawal symptoms, alcohol Code(s): F10.239 - ALCOHOL DEPENDENCE WITH WITHDRAWAL, UNSPECIFIED Qualifiers : Complication of substance-induced condition: uncomplicated Qualified Code(s): F10.230 - Alcohol dependence with withdrawal, uncomplicated; F10.230 - Alcohol dependence with withdrawal, uncomplicated; F10.230 - Alcohol dependence with withdrawal, uncomplicated (7) Abuse, drug or alcohol Code(s): F19.10 - OTHER PSYCHOACTIVE SUBSTANCE ABUSE, UNCOMPLICATED Assessment/Plan Current Medications Generic Name Dose Route Start Last Admin Trade Name Freq PRN Reason Stop Dose Admin Acetaminophen 650 mg 09/07/17 05:53 09/11/17 04:55 Tylenol - NR 650 mg Q6H PRN Administration FEVER OR PAIN Albumin Human 25 gm 09/12/17 18:00 09/13/17 05:47 Albumin Human 25% IVPB 09/15/17 06:01 25 gm BID@0600,1800 [facility] Administration Bacitracin 1 applic 09/02/17 10:00 09/13/17 09:35 Bacitracin - TP 1 applic DAILY [facility] Administration Chlorhexidine Gluconate 15 ml 09/08/17 12:30 09/13/17 09:35 Peridex - MM 15 ml BID [facility] Administration Ferrous Sulfate 325 mg 09/05/17 12:00 09/13/17 09:35 Feosol - PO 325 mg DAILY [facility] Administration Folic Acid 1 mg 09/02/17 10:00 09/13/17 09:34 Folic Acid - PO 1 mg DAILY [facility] Administration Furosemide 40 mg 09/12/17 18:00 09/13/17 05:49 Lasix Injection - IVPUSH 09/15/17 06:01 40 mg BID@06,18 [facility] Administration Heparin Sodium (Porcine) 5,000 unit 09/02/17 06:00 09/13/17 13:22 Heparin - SQ 5,000 unit TID [facility] Administration Propofol 100 mls @ 5.898 mls/hr 09/07/17 07:30 09/13/17 08:38 Diprivan - IVPUSH 23 mls/hr TITR [facility] Administration Protocol 10 MCG/KG/MIN Cefepime HCl 0.5 gm/ Dextrose 100 mls @ 100 mls/hr 09/11/17 10:00 09/13/17 09: 45 IVPB 100 mls/hr DAILY [facility] Administration Fluconazole 50 mls @ 50 mls/hr 09/13/17 10:00 09/13/17 09:45 Diflucan 100 Mg/Ns Premixed Ivpb - IVPB 50 mls/hr DAILY [facility] Administration Multivitamins/Minerals 1 each 09/02/17 10:00 09/13/17 09:34 Theragran-M PO 1 each DAILY [facility] Administration Pantoprazole Sodium 40 mg 09/09/17 18:45 09/13/17 09:34 Protonix Iv IVPUSH 40 mg DAILY [facility] Administration Sevelamer Carbonate 800 mg 09/12/17 17:30 09/13/17 13:22 Renvela - PO 800 mg TIDCM [facility] Administration Thiamine HCl 100 mg 09/02/17 10:00 09/13/17 09:36 Vitamin B1 - PO 100 mg DAILY [facility] Administration Laboratory Tests 09/13/17 06:20 PROSPER Screen Pending c-ANCA Pending Proteinase 3 (PR3) Pending p-ANCA Pending Atypical p-ANCA Pending Myeloperoxidase Ab Pending Double Strand DNA Ab Pending Glomerular Base Memb Ab Pending Laboratory Tests 09/12/17 09/13/17 15:30 11:39 Urine Protein 1+ H Urine Blood 2+ H Protein/Creatinin Ratio 3.4 Impression 1. ALEXANDRA 2. fluid overload 3. hypoalbuminemia 4. respiratory failure requiring intubation 5. anemia 6. etoh abuse 7. fevers Plan - renal workup is in progress - pt responded to lasix this morning, he put out about 900 cc after the dose - volume status is improving - will redose lasix in am - renal workup is in progress, serologic workup is pending - check c3 and c4 levels, spoke to medical team - pt does have an active sediment - r/o immune involvement - discussed with medical team - vent support - will follow Dr Peres
[2017-09-13] MEDS: ACETAMINOPHEN 325 MG TABLET (FP) NR PRN (16:40)
[2017-09-13 16:54] LABS: URINE LEUK ESTERASE Negative (NEGATIVE)
--- NOTE | 2017-09-13 17:19 | PN ---
Teaching Attending Note Name of Resident: Lydia Salter ATTENDING PHYSICIAN STATEMENT I saw and evaluated the patient. I reviewed the resident's note and discussed the case with the resident. I agree with the resident's findings and plan as documented. SUBJECTIVE: Patient seen and examined. intubated, opens eyes, follows simple commands. Unable to assess for ROS. OBJECTIVE: Vital Signs Period Temp Pulse Resp BP Sys/Jeff Pulse Ox Last 24 Hr 98.9 F-100.6 F 80-96 20-36 114-139/55-75 94-97 Intake & Output 09/10/17 09/11/17 09/12/17 09/13/17 23:59 23:59 23:59 23:59 Intake Total 3877 1851.5 918 684 Output Total 700 1100 1700 1750 Balance 3177 751.5 -782 -1066 Weight 208 lb 11.2 oz 212 lb 4 oz 212 lb 4.8 oz 210 lb 9.6 oz General: intubated, opens eyes when called CVS -S1s2 regular Chest limited exam, positive air entry Abdomen soft, obese, Non tender, positive bowel sounds extremities - anasarca Neuro Opens eyes to name, follows simple command as 'wiggling toes' and grasping with hands Current Medications Acetaminophen (Tylenol -) 650 mg NR Q6H PRN PRN Reason: FEVER OR PAIN Last Admin: 09/13/17 16:40 Dose: 650 mg Albumin Human (Albumin Human 25%) 25 gm IVPB BID@0600,1800 [facility] Stop: 09/15/17 06:01 Last Admin: 09/13/17 05:47 Dose: 25 gm Bacitracin (Bacitracin -) 1 applic TP DAILY [facility] Last Admin: 09/13/17 09:35 Dose: 1 applic Chlorhexidine Gluconate (Peridex -) 15 ml MM BID [facility] Last Admin: 09/13/17 09:35 Dose: 15 ml Ferrous Sulfate (Feosol -) 325 mg PO DAILY [facility] Last Admin: 09/13/17 09:35 Dose: 325 mg Folic Acid (Folic Acid -) 1 mg PO DAILY [facility] Last Admin: 09/13/17 09:34 Dose: 1 mg Furosemide (Lasix Injection -) 40 mg IVPUSH BID@06,18 [facility] Stop: 09/15/17 06:01 Last Admin: 09/13/17 05:49 Dose: 40 mg Heparin Sodium (Porcine) (Heparin -) 5,000 unit SQ TID [facility] Last Admin: 09/13/17 13:22 Dose: 5,000 unit Propofol (Diprivan -) 100 mls @ 5.898 mls/hr IVPUSH TITR [facility]; 10 MCG/KG/MIN PRN Reason: Protocol Last Admin: 09/13/17 16:41 Dose: 17.694 mls/hr Cefepime HCl 0.5 gm/ Dextrose 100 mls @ 100 mls/hr IVPB DAILY [facility] Last Admin: 09/13/17 09:45 Dose: 100 mls/hr Fluconazole (Diflucan 100 Mg/Ns Premixed Ivpb -) 50 mls @ 50 mls/hr IVPB DAILY [facility] Last Admin: 09/13/17 09:45 Dose: 50 mls/hr Multivitamins/Minerals (Theragran-M) 1 each PO DAILY [facility] Last Admin: 09/13/17 09:34 Dose: 1 each Pantoprazole Sodium (Protonix Iv) 40 mg IVPUSH DAILY [facility] Last Admin: 09/13/17 09:34 Dose: 40 mg Sevelamer Carbonate (Renvela -) 800 mg PO TIDCM [facility] Last Admin: 09/13/17 16:40 Dose: 800 mg Thiamine HCl (Vitamin B1 -) 100 mg PO DAILY [facility] Last Admin: 09/13/17 09:36 Dose: 100 mg Laboratory Results - last 24 hr 09/12/17 09/13/17 09/13/17 15:30 06:20 06:20 WBC 10.4 H RBC 2.25 L Hgb 7.1 L D Hct 20.5 L MCV 90.9 MCH 31.7 MCHC 34.8 RDW 15.9 Plt Count 437 H D MPV 7.3 L Neutrophils % 79.2 Lymphocytes % 10.1 D Monocytes % 8.0 Eosinophils % 1.8 Basophils % 0.9 Sodium 135 L Potassium 3.5 Chloride 101 Carbon Dioxide 20 L Anion Gap 14 BUN 80 H Creatinine 3.3 H Creat Clearance w eGFR 18.79 Random Glucose 103 Calcium 7.1 L Phosphorus 7.2 H Magnesium 2.5 H Total Bilirubin 0.7 AST 39 H D ALT 7 L Alkaline Phosphatase 123 H C-Reactive Protein 13.2 H D Total Protein 6.0 L Albumin 1.2 L Urine Color Urine Appearance Urine pH Ur Specific Joaquin Urine Protein Urine Glucose (UA) Urine Ketones Urine Blood Urine Nitrite Urine Bilirubin Urine Urobilinogen Ur Leukocyte Esterase Urine RBC Urine WBC Ur Epithelial Cells Urine Bacteria Hyaline Casts Granular Casts Urine Mucus U Random Total Protein 135 H Urine Creatinine 39.5 Protein/Creatinin Ratio 3.4 09/13/17 09/13/17 06:20 11:39 WBC RBC Hgb Hct MCV MCH MCHC RDW Plt Count MPV Neutrophils % Lymphocytes % Monocytes % Eosinophils % Basophils % Sodium Potassium Chloride Carbon Dioxide Anion Gap BUN Creatinine Creat Clearance w eGFR Random Glucose Calcium Phosphorus Magnesium Total Bilirubin AST ALT Alkaline Phosphatase C-Reactive Protein Cancelled Total Protein Albumin Urine Color Yellow Urine Appearance Slcloudy Urine pH 5.0 Ur Specific Joaquin 1.010 Urine Protein 1+ H Urine Glucose (UA) Negative Urine Ketones Negative Urine Blood 2+ H Urine Nitrite Negative Urine Bilirubin Negative Urine Urobilinogen Negative Ur Leukocyte Esterase Negative Urine RBC 16 Urine WBC 5 Ur Epithelial Cells Rare Urine Bacteria Rare Hyaline Casts 1 Granular Casts 5 Urine Mucus Rare U Random Total Protein Urine Creatinine Protein/Creatinin Ratio ASSESSMENT AND PLAN: -Acute hypoxic respiratory failure -Severe sepsis due to cavitary PNA, MSSA bacteremia, ALISA neg for vegetation -ARF, from sepsis vs medication related -AFib with RVR resolved -Hypokalemia/hypomagnesemia -Hyperphosphatemia -Alcohol abuse -Normocytic anemia -Acute transaminitis -Chronic right subdural hematoma PLan: ALISA negative for vegetation. Presentation likely from sepsis from cavitary PNA/ MSSA bacteremia. Cefepime/vanco/Diflucan, follow up ID recs. Vent support, daily wean trial per ICU, failed yesterday, anticipate needs improvement in infectious process and volume status beforehand. Nephrology input noted, albumin with lasix, responding well, daily labs, follow up serology/complement function. replete lytes prn. Trend LFTs. Patient critical with ongoing multiorgan dsyfunction. total critical care time spent 45 min.
--- NOTE | 2017-09-13 17:22 | PN ---
Physical Exam: 24H Events: yesterday - endocarditis r/o by ALISA ON - no events AM - failed SBT 2/2 to tachypnea to 40's and desaturation to low 90's. SUBJECTIVE: Patient seen and examined in ICU. Ventilated, mildly sedated on propofol gtt OBJECTIVE: Vital Signs Period Temp Pulse Resp BP Sys/Jeff Pulse Ox Last 24 Hr 98.9 F-100.6 F 80-96 20-36 114-139/55-75 94-97 Intake & Output 09/10/17 09/11/17 09/12/17 09/13/17 23:59 23:59 23:59 23:59 Intake Total 3877 1851.5 918 684 Output Total 700 1100 1700 1750 Balance 3177 751.5 -782 -1066 Weight 94.665 kg 96.275 kg 96.298 kg 95.527 kg GENERAL: vented, mildly sedated, responsive to verbal commands ENT: moist mucous membranes, ETT, NGT LUNGS: mechanical breathe sounds HEART: RRR, normal S1/S2, without murmur, rub, gallop. ABDOMEN: Soft, mildly distended, normoactive bowel sounds EXTREMITIES: anasarca : hines, rectal tube CBC, BMP 09/13/17 06:20 09/13/17 06:20 Hepatic Panel Total Bilirubin 0.7 mg/dL (0.2-1.0) 09/13/17 06:20 Direct Bilirubin 1.8 mg/dL (0.0-0.2) H D 09/09/17 05:00 AST 39 U/L (15-37) H D 09/13/17 06:20 ALT 7 U/L (12-78) L 09/13/17 06:20 Alkaline Phosphatase 123 U/L (45-117) H 09/13/17 06:20 Albumin 1.2 g/dl (3.4-5.0) L 09/13/17 06:20 Ca - 7.1 Phos - 7.2 Mg - 2.5 Microbiology 09/10/17 10:00 Blood - Peripheral Venous Blood Culture - Preliminary NO GROWTH OBTAINED AFTER 72 HOURS, INCUBATION TO CONTINUE FOR 2 DAYS. 09/10/17 10:00 Blood - Peripheral Venous Blood Culture - Preliminary NO GROWTH OBTAINED AFTER 72 HOURS, INCUBATION TO CONTINUE FOR 2 DAYS. 09/12/17 09:20 Blood - Peripheral Venous Blood Culture - Preliminary NO GROWTH OBTAINED AFTER 24 HOURS, INCUBATION TO CONTINUE FOR 4 DAYS. 09/12/17 09:15 Blood - Peripheral Venous Blood Culture - Preliminary NO GROWTH OBTAINED AFTER 24 HOURS, INCUBATION TO CONTINUE FOR 4 DAYS. 09/08/17 05:45 Blood - Peripheral Venous Blood Culture - Final NO GROWTH AFTER 5 DAYS INCUBATION 09/08/17 05:45 Blood - Peripheral Venous Blood Culture - Final NO GROWTH AFTER 5 DAYS INCUBATION 09/10/17 09:35 Sputum - Endotrachea Suction/Ventilator Gram Stain - Final 09/10/17 09:35 Sputum - Endotrachea Suction/Ventilator Sputum Culture - Final Yeast Like Organism 09/08/17 18:07 Pleural Fluid Gram Stain - Final 09/08/17 18:07 Pleural Fluid Body Fluid Culture - Final NO GROWTH OF AEROBIC ORGANISMS AFTER 48 HOURS INCUBATION 09/08/17 18:07 Pleural Fluid Anaerobic Culture - Final NO ANAEROBES WERE ISOLATED 09/10/17 09:35 Urine - Urine Hines Urine Culture - Final NO GROWTH OBTAINED 09/06/17 11:02 Blood - Peripheral Venous Blood Culture - Final NO GROWTH AFTER 5 DAYS INCUBATION 09/10/17 09:05 Stool Clostridium difficile Antigen (KHRIS) - Final 09/10/17 09:05 Stool Clostridium difficile Toxin Assay - Final 09/08/17 18:00 Pleural Fluid AFB Smear Concentration - Final 09/08/17 18:00 Pleural Fluid Mycobacterial Culture - Preliminary 09/06/17 11:02 Blood - Peripheral Venous Blood Culture - Final Staphylococcus Aureus Active Medications Acetaminophen (Tylenol -) 650 mg NR Q6H PRN PRN Reason: FEVER OR PAIN Last Admin: 09/13/17 16:40 Dose: 650 mg Albumin Human (Albumin Human 25%) 25 gm IVPB BID@0600,1800 [facility] Stop: 09/15/17 06:01 Last Admin: 09/13/17 05:47 Dose: 25 gm Bacitracin (Bacitracin -) 1 applic TP DAILY [facility] Last Admin: 09/13/17 09:35 Dose: 1 applic Chlorhexidine Gluconate (Peridex -) 15 ml MM BID [facility] Last Admin: 09/13/17 09:35 Dose: 15 ml Ferrous Sulfate (Feosol -) 325 mg PO DAILY [facility] Last Admin: 09/13/17 09:35 Dose: 325 mg Folic Acid (Folic Acid -) 1 mg PO DAILY [facility] Last Admin: 09/13/17 09:34 Dose: 1 mg Furosemide (Lasix Injection -) 40 mg IVPUSH BID@,18 [facility] Stop: 09/15/17 06:01 Last Admin: 09/13/17 05:49 Dose: 40 mg Heparin Sodium (Porcine) (Heparin -) 5,000 unit SQ TID [facility] Last Admin: 09/13/17 13:22 Dose: 5,000 unit Propofol (Diprivan -) 100 mls @ 5.898 mls/hr IVPUSH TITR [facility]; 10 MCG/KG/MIN PRN Reason: Protocol Last Admin: 09/13/17 16:41 Dose: 17.694 mls/hr Cefepime HCl 0.5 gm/ Dextrose 100 mls @ 100 mls/hr IVPB DAILY [facility] Last Admin: 09/13/17 09:45 Dose: 100 mls/hr Fluconazole (Diflucan 100 Mg/Ns Premixed Ivpb -) 50 mls @ 50 mls/hr IVPB DAILY [facility] Last Admin: 09/13/17 09:45 Dose: 50 mls/hr Multivitamins/Minerals (Theragran-M) 1 each PO DAILY [facility] Last Admin: 09/13/17 09:34 Dose: 1 each Pantoprazole Sodium (Protonix Iv) 40 mg IVPUSH DAILY [facility] Last Admin: 09/13/17 09:34 Dose: 40 mg Sevelamer Carbonate (Renvela -) 800 mg PO TIDCM [facility] Last Admin: 09/13/17 16:40 Dose: 800 mg Thiamine HCl (Vitamin B1 -) 100 mg PO DAILY [facility] Last Admin: 09/13/17 09:36 Dose: 100 mg ASSESSMENT/PLAN: 66yo man with PMH of EtOH abuse and HTN who is admitted (08/31) for acute hypoxic respiratory failure requiring mechanical ventilation (09/02) and sepsis 2/2 cavitary PNA and MSSA bacteremia. ALISA (09/13) r/o endocarditis. Afebrile in the past 48H, however, pt has had intermittent fever spikes despite antibiotics. Serial blood cultures (09/10 and 09/12) NGTD, although sputum culture growing yeast-like organism. Renal function is worsening; nephrology following. #acute hypoxic respiratory failure -Vent management per ICU -Daily SBTs as tolerated -sedation holidays #sepsis 2/2 cavitary PNA, MSSA bacteremia -Abx per ID: continue Cefepime (D3) and Vanco (D3), and diflucan (D2) -f/u serial blood cultures #ALEXANDRA -Nephrology consulted -f/u serology and c3/c4 levels -Strict I&Os, hines -Renal dose for meds #loose stools -C diff Ag and toxin neg -rectal tube #normotcytic anemia -Trend H&H -Cont Ferrous Sulfate 325 mg PO DAILY [facility] -Transfuse hgb<7 #EtOH abuse -Monitor for signs of EtOH withdrawal -Ativan 2mg IV q2h PRN -MVI, thiamine 100mg PO qd, folic acid 1mg PO daily #GI ulcer (1 cm white-based, round ulcer with raised borders, bx 09/10, Dr. Archie Pablo) -f/u biopsy pathology -avoid NSAIDs #FEN -Hold IVF -hyperphosphatemia noted -Enteral feeds #PPX -DVT - Hep SQ TID -GI - Pantoprazole 40mg IV daily #Dispo: continue ICU monitoring FULL code d/w Dr. Akbar Salter MD PGY-1 Visit type - Emergency Visit Emergency Visit: No - New Patient This patient is new to me today: No - Critical Care Critical Care patient: Yes Total Critical Care Time (in minutes): 45 Critical Care Statement: The care of this patient involved high complexity decision making to prevent further life threatening deterioration of the patient 's condition and/or to evaluate & treat vital organ system(s) failure or risk of failure.
[2017-09-13] MEDS ORDERED: PROPOFOL 100 ML ONE (19:17)
[2017-09-13] MEDS: CEFEPIME 2 GM/100 ML BAG PRE-DOCKED IVPB SCH (19:39)
[2017-09-14] MEDS ORDERED: PROPOFOL 100 ML ONE (05:18)
[2017-09-14] MEDS: ALBUMIN HUMAN 25% 12.5 GM/50 ML VIAL IVPB SCH ×2 (05:23→17:26)
[2017-09-14] MEDS: PROPOFOL 100 ML IVPUSH SCH ×5 (05:24→22:57)
[2017-09-14] MEDS: HEPARIN NA (PORCINE) 5,000 UNITS/ML 1ML VIAL SQ SCH ×3 (05:25→22:47)
[2017-09-14] MEDS: FUROSEMIDE 40 MG/4 ML INJECTABLE VIAL IVPUSH SCH ×2 (05:25→17:00)
[2017-09-14 06:17] LABS: BASOPHIL 0.7 % (0-2.0); EOSINOPHIL 2.4 % (0-4.5); MCH 30.6 pg (25.7-33.7); MCHC 34.3 g/dl (32.0-35.9); MEAN CELL VOLUME 89.4 fl (80-96); MEAN PLT VOLUME 6.7 fl (7.5-11.1); NEUTROPHILS 76.2 % (42.8-82.8); PLATELET COUNT 442 K/MM3 (134-434); RDW 15.6 % (11.9-15.9); WHITE BLOOD COUNT 8.2 K/mm3 (4.0-10.0)
[2017-09-14 06:32] LABS: ALBUMIN 1.8 g/dl (3.4-5.0); ALK PHOS 121 U/L (45-117); ANION GAP 14 (8-16); BILIRUBIN,TOTAL 0.5 mg/dL (0.2-1.0); CALCIUM 7.6 mg/dL (8.5-10.1); CO2 21 mmol/L (21-32); CREATININE 3.2 mg/dL (0.7-1.3); GLUCOSE,RANDOM 118 mg/dL (74-106); MAGNESIUM 2.5 mg/dL (1.8-2.4); PHOSPHOROUS 6.5 mg/dL (2.5-4.9); SGOT/AST 33 U/L (15-37); SGPT/ALT 7 U/L (12-78); TOT PROT 6.3 g/dl (6.4-8.2)
[2017-09-14] MEDS ORDERED: POTASSIUM CHLORIDE ORAL LIQUID 20 MEQ/15 ML PO ONE (06:47)
[2017-09-14] MEDS ORDERED: PT OWN MED DRAWER 7, Y5N ONE ×2 (08:14→13:23)
[2017-09-14] MEDS: KCL 10 MEQ IVPB 100 ML IVPB SCH ×2 (08:17→09:40)
[2017-09-14] MEDS: SEVELAMER CARBONATE 800 MG TAB (FP) PO SCH ×3 (08:27→16:30)
[2017-09-14] MEDS: ACETAMINOPHEN 325 MG TABLET (FP) NR PRN ×2 (09:16→22:48)
[2017-09-14] MEDS: FERROUS SO4 325 MG TABLET (FP) PO SCH (09:45)
[2017-09-14] MEDS: CHLORHEXIDINE GLUCONATE 0.12% 15ML CUP MM SCH ×2 (09:46→22:47)
[2017-09-14] MEDS: FOLIC ACID 1 MG TABLET (FP) PO SCH (09:46)
[2017-09-14] MEDS: CEFEPIME 0.5 GM in DEXTROSE 5%-WATER - 100 ML IVPB SCH (09:47)
[2017-09-14] MEDS: FLUCONAZOLE 100 MG/NS 50 ML IVPB SCH (09:47)
[2017-09-14] MEDS: PANTOPRAZOLE SODIUM 40 MG VIAL IVPUSH SCH (09:47)
[2017-09-14] MEDS: THIAMINE HCL 100 MG TABLET (FP) PO SCH (09:48)
[2017-09-14] MEDS: MULTIVITAMINS THER W-MINERALS COMBO TABLET (FP) PO SCH (09:48)
[2017-09-14] MEDS: BACITRACIN 15 GM TUBE TOPICAL OINTMENT TP SCH (09:50)
--- NOTE | 2017-09-14 09:59 | PN ---
Progress Note (short form) - Note Progress Note: Patient seen and examined in the ICU. Low grade temps. No pressors. Remains on AC Mode of vent 30% FiO2. Fall in H&H noted. No occult bleeding noted. CXR: No gross change in bilateral infiltrates Right > Left. Intake & Output 09/11/17 09/12/17 09/13/17 09/14/17 23:59 23:59 23:59 23:59 Intake Total 1851.5 918 1634 Output Total 1100 1700 3300 350 Balance 751.5 -782 -1666 -350 Weight 212 lb 4 oz 212 lb 4.8 oz 210 lb 9.6 oz 206 lb 9.6 oz Last Vital Signs Temp Pulse Resp BP Pulse Ox 100.4 F H 106 H 35 H 165/86 98 09/14/17 09:39 09/14/17 09:39 09/14/17 09:39 09/14/17 09:39 09/14/17 08:03 Active Medications Acetaminophen (Tylenol -) 650 mg NR Q6H PRN PRN Reason: FEVER OR PAIN Last Admin: 09/14/17 09:16 Dose: 650 mg Albumin Human (Albumin Human 25%) 25 gm IVPB BID@0600,1800 [facility] Stop: 09/15/17 06:01 Last Admin: 09/14/17 05:23 Dose: 25 gm Bacitracin (Bacitracin -) 1 applic TP DAILY [facility] Last Admin: 09/14/17 09:50 Dose: 1 applic Chlorhexidine Gluconate (Peridex -) 15 ml MM BID [facility] Last Admin: 09/14/17 09:46 Dose: 15 ml Ferrous Sulfate (Feosol -) 325 mg PO DAILY [facility] Last Admin: 09/14/17 09:45 Dose: 325 mg Folic Acid (Folic Acid -) 1 mg PO DAILY [facility] Last Admin: 09/14/17 09:46 Dose: 1 mg Furosemide (Lasix Injection -) 40 mg IVPUSH BID@06,18 [facility] Stop: 09/15/17 06:01 Last Admin: 09/14/17 05:25 Dose: 40 mg Heparin Sodium (Porcine) (Heparin -) 5,000 unit SQ TID [facility] Last Admin: 09/14/17 05:25 Dose: 5,000 unit Propofol (Diprivan -) 100 mls @ 5.898 mls/hr IVPUSH TITR [facility]; 10 MCG/KG/MIN PRN Reason: Protocol Last Admin: 09/14/17 09:20 Dose: 23.592 mls/hr Cefepime HCl 0.5 gm/ Dextrose 100 mls @ 100 mls/hr IVPB DAILY [facility] Last Admin: 09/14/17 09:47 Dose: 100 mls/hr Fluconazole (Diflucan 100 Mg/Ns Premixed Ivpb -) 50 mls @ 50 mls/hr IVPB DAILY [facility] Last Admin: 09/14/17 09:47 Dose: 50 mls/hr Potassium Chloride (Potassium Chloride 10 Meq Premix Ivpb -) 100 mls @ 100 mls/ hr IVPB Q60M [facility] Stop: 09/14/17 09:59 Last Admin: 09/14/17 09:40 Dose: 100 mls/hr Multivitamins/Minerals (Theragran-M) 1 each PO DAILY [facility] Last Admin: 09/14/17 09:48 Dose: 1 each Pantoprazole Sodium (Protonix Iv) 40 mg IVPUSH DAILY [facility] Last Admin: 09/14/17 09:47 Dose: 40 mg Sevelamer Carbonate (Renvela -) 800 mg PO TIDCM [facility] Last Admin: 09/14/17 08:27 Dose: 800 mg Thiamine HCl (Vitamin B1 -) 100 mg PO DAILY [facility] Last Admin: 09/14/17 09:48 Dose: 100 mg Gen: Intubated and sedated Heart: RRR Lung: bilateral coarse rhonchi Abd: soft, nontender Ext: + edema Laboratory Results - last 24 hr 09/13/17 09/13/17 09/14/17 06:20 11:39 05:40 WBC RBC Hgb Hct MCV MCH MCHC RDW Plt Count MPV Neutrophils % Lymphocytes % Monocytes % Eosinophils % Basophils % Sodium 135 L Potassium 3.5 Chloride 101 Carbon Dioxide 20 L Anion Gap 14 BUN 80 H Creatinine 3.3 H Creat Clearance w eGFR 18.79 Random Glucose 103 Calcium 7.1 L Phosphorus 7.2 H Magnesium 2.5 H Total Bilirubin 0.7 AST 39 H D ALT 7 L Alkaline Phosphatase 123 H C-Reactive Protein 13.2 H D Total Protein 6.0 L Albumin 1.2 L Urine Color Yellow Urine Appearance Slcloudy Urine pH 5.0 Ur Specific [place] 1.010 Urine Protein 1+ H Urine Glucose (UA) Negative Urine Ketones Negative Urine Blood 2+ H Urine Nitrite Negative Urine Bilirubin Negative Urine Urobilinogen Negative Ur Leukocyte Esterase Negative Urine RBC 16 Urine WBC 5 Ur Epithelial Cells Rare Urine Bacteria Rare Hyaline Casts 1 Granular Casts 5 Urine Mucus Rare Random Vancomycin 19.384 Blood Type Antibody Screen Crossmatch 09/14/17 09/14/17 09/14/17 05:40 05:40 08:00 WBC 8.2 RBC 2.05 L Hgb 6.3 L* D Hct 18.4 L MCV 89.4 MCH 30.6 MCHC 34.3 RDW 15.6 Plt Count 442 H MPV 6.7 L Neutrophils % 76.2 Lymphocytes % 11.7 Monocytes % 9.0 Eosinophils % 2.4 Basophils % 0.7 Sodium 139 Potassium 2.8 L* Chloride 104 Carbon Dioxide 21 Anion Gap 14 BUN 80 H Creatinine 3.2 H Creat Clearance w eGFR 19.47 Random Glucose 118 H Calcium 7.6 L Phosphorus 6.5 H Magnesium 2.5 H Total Bilirubin 0.5 D AST 33 ALT 7 L Alkaline Phosphatase 121 H C-Reactive Protein Total Protein 6.3 L Albumin 1.8 L D Urine Color Urine Appearance Urine pH Ur Specific [place] Urine Protein Urine Glucose (UA) Urine Ketones Urine Blood Urine Nitrite Urine Bilirubin Urine Urobilinogen Ur Leukocyte Esterase Urine RBC Urine WBC Ur Epithelial Cells Urine Bacteria Hyaline Casts Granular Casts Urine Mucus Random Vancomycin Blood Type O NEGATIVE Antibody Screen Negative Crossmatch See Detail ASSESSMENT AND PLAN: Acute Hypoxic Respiratory Failure / component of ARDS physiology likely Staph Pneumonia MSSA Bacteremia -> Endocarditis ruled out Septic Shock Alcohol Dependence ARF - Cautious diuresis - Will attempt SBTs again later today - ABX per ID - O2 to keep SpO2 >90% - Sedation vacation - Enteral feeds - DVT/GI prophylaxis - If fevers worsens may need additional imaging Dr Griffin Critical care time spent in reviewing chart, evaluating patient and formulating plan 35 min
--- NOTE | 2017-09-14 11:45 | PN ---
Progress Note (short form) - Note Progress Note: awake on the vent following commands no pain fi02 30% no pressors receiving blood transfusion Vital Signs Period Temp Pulse Resp BP Sys/Jeff Pulse Ox Last 24 Hr 99.2 F-101 F 83-106 16-36 110-167/61-87 97-99 cor-rrr lungs decreased bs abd soft,nt ext +edema hines clear urine CBC, BMP 09/14/17 05:40 09/14/17 05:40 Laboratory Tests 09/14/17 05:40 Random Vancomycin 19.384 Microbiology 09/10/17 10:00 Blood - Peripheral Venous Blood Culture - Preliminary NO GROWTH OBTAINED AFTER 96 HOURS, INCUBATION TO CONTINUE FOR 1 DAYS. 09/10/17 10:00 Blood - Peripheral Venous Blood Culture - Preliminary NO GROWTH OBTAINED AFTER 96 HOURS, INCUBATION TO CONTINUE FOR 1 DAYS. 09/12/17 09:20 Blood - Peripheral Venous Blood Culture - Preliminary NO GROWTH OBTAINED AFTER 48 HOURS, INCUBATION TO CONTINUE FOR 3 DAYS. 09/12/17 09:15 Blood - Peripheral Venous Blood Culture - Preliminary NO GROWTH OBTAINED AFTER 48 HOURS, INCUBATION TO CONTINUE FOR 3 DAYS. cxray unchanged meds reviewed a/p MSSA sepsis ?nosocomial pneumonia continue vanco by levels cefepime diflucan just added ARF anemia- transfusion today ALISA negative
--- NOTE | 2017-09-14 13:43 | PN ---
Teaching Attending Note Name of Resident: Sadaf Webber SUBJECTIVE: Patient seen and examined. Intubated and sedated. unable to perform review of systems. OBJECTIVE: Vital Signs Period Temp Pulse Resp BP Sys/Jeff Pulse Ox Last 24 Hr 99.2 F-101 F 83-106 16-35 110-167/61-87 96-99 Intake & Output 09/11/17 09/12/17 09/13/17 09/14/17 23:59 23:59 23:59 23:59 Intake Total 1851.5 918 1634 1920 Output Total 1100 1700 3300 1350 Balance 751.5 -769 -2711 570 Weight 212 lb 4 oz 212 lb 4.8 oz 210 lb 9.6 oz 206 lb 9.6 oz General: intubated, sedated in bed, CVS S1S2 regular Chest limited exam Abdomen soft, obese, no grimacing on deep palpation Extremities anasarca Current Medications Acetaminophen (Tylenol -) 650 mg NR Q6H PRN PRN Reason: FEVER OR PAIN Last Admin: 09/14/17 09:16 Dose: 650 mg Albumin Human (Albumin Human 25%) 25 gm IVPB BID@0600,1800 [facility] Stop: 09/15/17 06:01 Last Admin: 09/14/17 05:23 Dose: 25 gm Bacitracin (Bacitracin -) 1 applic TP DAILY [facility] Last Admin: 09/14/17 09:50 Dose: 1 applic Chlorhexidine Gluconate (Peridex -) 15 ml MM BID [facility] Last Admin: 09/14/17 09:46 Dose: 15 ml Ferrous Sulfate (Feosol -) 325 mg PO DAILY [facility] Last Admin: 09/14/17 09:45 Dose: 325 mg Folic Acid (Folic Acid -) 1 mg PO DAILY [facility] Last Admin: 09/14/17 09:46 Dose: 1 mg Furosemide (Lasix Injection -) 40 mg IVPUSH BID@06,18 [facility] Stop: 09/15/17 06:01 Last Admin: 09/14/17 05:25 Dose: 40 mg Heparin Sodium (Porcine) (Heparin -) 5,000 unit SQ TID [facility] Last Admin: 09/14/17 05:25 Dose: 5,000 unit Propofol (Diprivan -) 100 mls @ 5.898 mls/hr IVPUSH TITR [facility]; 10 MCG/KG/MIN PRN Reason: Protocol Last Admin: 09/14/17 09:20 Dose: 23.592 mls/hr Cefepime HCl 0.5 gm/ Dextrose 100 mls @ 100 mls/hr IVPB DAILY [facility] Last Admin: 09/14/17 09:47 Dose: 100 mls/hr Fluconazole (Diflucan 100 Mg/Ns Premixed Ivpb -) 50 mls @ 50 mls/hr IVPB DAILY [facility] Last Admin: 09/14/17 09:47 Dose: 50 mls/hr Multivitamins/Minerals (Theragran-M) 1 each PO DAILY [facility] Last Admin: 09/14/17 09:48 Dose: 1 each Pantoprazole Sodium (Protonix Iv) 40 mg IVPUSH DAILY [facility] Last Admin: 09/14/17 09:47 Dose: 40 mg Sevelamer Carbonate (Renvela -) 800 mg PO TIDCM [facility] Last Admin: 09/14/17 12:05 Dose: 800 mg Thiamine HCl (Vitamin B1 -) 100 mg PO DAILY [facility] Last Admin: 09/14/17 09:48 Dose: 100 mg Laboratory Results - last 24 hr 09/13/17 09/14/17 09/14/17 11:39 05:40 05:40 WBC 8.2 RBC 2.05 L Hgb 6.3 L* D Hct 18.4 L MCV 89.4 MCH 30.6 MCHC 34.3 RDW 15.6 Plt Count 442 H MPV 6.7 L Neutrophils % 76.2 Lymphocytes % 11.7 Monocytes % 9.0 Eosinophils % 2.4 Basophils % 0.7 Sodium Potassium Chloride Carbon Dioxide Anion Gap BUN Creatinine Creat Clearance w eGFR Random Glucose Calcium Phosphorus Magnesium Total Bilirubin AST ALT Alkaline Phosphatase Total Protein Albumin Urine Color Yellow Urine Appearance Slcloudy Urine pH 5.0 Ur Specific [place] 1.010 Urine Protein 1+ H Urine Glucose (UA) Negative Urine Ketones Negative Urine Blood 2+ H Urine Nitrite Negative Urine Bilirubin Negative Urine Urobilinogen Negative Ur Leukocyte Esterase Negative Urine RBC 16 Urine WBC 5 Ur Epithelial Cells Rare Urine Bacteria Rare Hyaline Casts 1 Granular Casts 5 Urine Mucus Rare Random Vancomycin 19.384 Blood Type Antibody Screen Crossmatch 09/14/17 09/14/17 05:40 08:00 WBC RBC Hgb Hct MCV MCH MCHC RDW Plt Count MPV Neutrophils % Lymphocytes % Monocytes % Eosinophils % Basophils % Sodium 139 Potassium 2.8 L* Chloride 104 Carbon Dioxide 21 Anion Gap 14 BUN 80 H Creatinine 3.2 H Creat Clearance w eGFR 19.47 Random Glucose 118 H Calcium 7.6 L Phosphorus 6.5 H Magnesium 2.5 H Total Bilirubin 0.5 D AST 33 ALT 7 L Alkaline Phosphatase 121 H Total Protein 6.3 L Albumin 1.8 L D Urine Color Urine Appearance Urine pH Ur Specific [place] Urine Protein Urine Glucose (UA) Urine Ketones Urine Blood Urine Nitrite Urine Bilirubin Urine Urobilinogen Ur Leukocyte Esterase Urine RBC Urine WBC Ur Epithelial Cells Urine Bacteria Hyaline Casts Granular Casts Urine Mucus Random Vancomycin Blood Type O NEGATIVE Antibody Screen Negative Crossmatch See Detail ASSESSMENT AND PLAN: -Acute hypoxic respiratory failure -Severe sepsis due to cavitary PNA, MSSA bacteremia, ALISA neg for vegetation -ARF, from sepsis vs medication related -Acute on chronic anemia, -AFib with RVR resolved -Hypokalemia/hypomagnesemia -Hyperphosphatemia -Alcohol abuse -Normocytic anemia -Acute transaminitis -Chronic right subdural hematoma PLan: ALISA negative for vegetation. Presentation likely from sepsis from cavitary PNA/ MSSA bacteremia. Cefepime/vanco/Diflucan, Recurrent fevers follow up ID recs. Transfuse 1 unit PRBC, follow up H/h, monitor for bleed, no gross evidence, recent EGD. Continue protonix. Stool occult. Vent support, daily wean trial per ICU, failed yesterday, anticipate needs improvement in infectious process and volume status beforehand. Nephrology input noted, albumin with lasix, responding well, daily labs, follow up serology/complement function. replete lytes prn. Trend LFTs. Patient critical with ongoing multiorgan dsyfunction. total critical care time spent 45 min.
--- NOTE | 2017-09-14 14:13 | PN ---
Progress Note (short form) - Note Progress Note: nephrology f/u in icu situation reviewed 1. ALEXANDRA 2. fluid overload 3. hypoalbuminemia 4. respiratory failure requiring intubation 5. anemia 6. etoh abuse 7. fevers Current Medications Acetaminophen (Tylenol -) 650 mg NR Q6H PRN PRN Reason: FEVER OR PAIN Last Admin: 09/14/17 22:48 Dose: 650 mg Albumin Human (Albumin Human 25%) 25 gm IVPB BID@0600,1800 [facility] Stop: 09/15/17 06:01 Last Admin: 09/14/17 17:26 Dose: 25 gm Bacitracin (Bacitracin -) 1 applic TP DAILY [facility] Last Admin: 09/14/17 09:50 Dose: 1 applic Chlorhexidine Gluconate (Peridex -) 15 ml MM BID [facility] Last Admin: 09/14/17 22:47 Dose: 15 ml Ferrous Sulfate (Feosol -) 325 mg PO DAILY [facility] Last Admin: 09/14/17 09:45 Dose: 325 mg Folic Acid (Folic Acid -) 1 mg PO DAILY [facility] Last Admin: 09/14/17 09:46 Dose: 1 mg Furosemide (Lasix Injection -) 40 mg IVPUSH BID@06,18 [facility] Stop: 09/15/17 06:01 Last Admin: 09/14/17 17:00 Dose: 40 mg Heparin Sodium (Porcine) (Heparin -) 5,000 unit SQ TID [facility] Last Admin: 09/14/17 22:47 Dose: 5,000 unit Propofol (Diprivan -) 100 mls @ 5.898 mls/hr IVPUSH TITR [facility]; 10 MCG/KG/MIN PRN Reason: Protocol Last Admin: 09/14/17 18:50 Dose: 23.592 mls/hr Cefepime HCl 0.5 gm/ Dextrose 100 mls @ 100 mls/hr IVPB DAILY [facility] Last Admin: 09/14/17 09:47 Dose: 100 mls/hr Fluconazole (Diflucan 100 Mg/Ns Premixed Ivpb -) 50 mls @ 50 mls/hr IVPB DAILY [facility] Last Admin: 09/14/17 09:47 Dose: 50 mls/hr Multivitamins/Minerals (Theragran-M) 1 each PO DAILY [facility] Last Admin: 09/14/17 09:48 Dose: 1 each Pantoprazole Sodium (Protonix Iv) 40 mg IVPUSH DAILY [facility] Last Admin: 09/14/17 09:47 Dose: 40 mg Sevelamer Carbonate (Renvela -) 800 mg PO TIDCM [facility] Last Admin: 09/14/17 16:30 Dose: 800 mg Thiamine HCl (Vitamin B1 -) 100 mg PO DAILY [facility] Last Admin: 09/14/17 09:48 Dose: 100 mg Last Vital Signs Temp Pulse Resp BP Pulse Ox 100.1 F H 97 H 33 H 145/83 96 09/14/17 20:00 09/14/17 20:00 09/14/17 21:13 09/14/17 20:00 09/14/17 12:00 unresponsive on vent sedated with propofol Lungs clear vented sounds, Heart soft sounds Abd edematous abd wall ext edema CBC, BMP 09/14/17 18:50 09/14/17 18:50 renal function relatively same non oliguric being diuresed severe anemia prbc ordered hypokalemia may be partly corrected with transfusion of prbcs continue k replacements
[2017-09-14 19:26] LABS: BASOPHIL 0.9 % (0-2.0); EOSINOPHIL 2.3 % (0-4.5); MCHC 34.2 g/dl (32.0-35.9); MEAN CELL VOLUME 87.8 fl (80-96); MEAN PLT VOLUME 6.2 fl (7.5-11.1); NEUTROPHILS 79.1 % (42.8-82.8); PLATELET COUNT 466 K/MM3 (134-434); RDW 17.4 % (11.9-15.9); WHITE BLOOD COUNT 10.3 K/mm3 (4.0-10.0)
[2017-09-14 19:46] LABS: ANION GAP 12 (8-16); CO2 22 mmol/L (21-32); CREATININE 3.3 mg/dL (0.7-1.3); GLUCOSE,RANDOM 127 mg/dL (74-106)
--- NOTE | 2017-09-14 20:19 | PN ---
Progress Note, Physician History of Present Illness: Remains on vent after failing SBT earlier, low grade fever, hemodynamically stable. - Current Medication List Current Medications: Active Medications Acetaminophen (Tylenol -) 650 mg NR Q6H PRN PRN Reason: FEVER OR PAIN Last Admin: 09/14/17 09:16 Dose: 650 mg Albumin Human (Albumin Human 25%) 25 gm IVPB BID@0600,1800 [facility] Stop: 09/15/17 06:01 Last Admin: 09/14/17 17:26 Dose: 25 gm Bacitracin (Bacitracin -) 1 applic TP DAILY [facility] Last Admin: 09/14/17 09:50 Dose: 1 applic Chlorhexidine Gluconate (Peridex -) 15 ml MM BID [facility] Last Admin: 09/14/17 09:46 Dose: 15 ml Ferrous Sulfate (Feosol -) 325 mg PO DAILY [facility] Last Admin: 09/14/17 09:45 Dose: 325 mg Folic Acid (Folic Acid -) 1 mg PO DAILY [facility] Last Admin: 09/14/17 09:46 Dose: 1 mg Furosemide (Lasix Injection -) 40 mg IVPUSH BID@06,18 [facility] Stop: 09/15/17 06:01 Last Admin: 09/14/17 17:00 Dose: 40 mg Heparin Sodium (Porcine) (Heparin -) 5,000 unit SQ TID [facility] Last Admin: 09/14/17 14:27 Dose: 5,000 unit Propofol (Diprivan -) 100 mls @ 5.898 mls/hr IVPUSH TITR [facility]; 10 MCG/KG/MIN PRN Reason: Protocol Last Admin: 09/14/17 18:50 Dose: 23.592 mls/hr Cefepime HCl 0.5 gm/ Dextrose 100 mls @ 100 mls/hr IVPB DAILY [facility] Last Admin: 09/14/17 09:47 Dose: 100 mls/hr Fluconazole (Diflucan 100 Mg/Ns Premixed Ivpb -) 50 mls @ 50 mls/hr IVPB DAILY [facility] Last Admin: 09/14/17 09:47 Dose: 50 mls/hr Multivitamins/Minerals (Theragran-M) 1 each PO DAILY [facility] Last Admin: 09/14/17 09:48 Dose: 1 each Pantoprazole Sodium (Protonix Iv) 40 mg IVPUSH DAILY [facility] Last Admin: 09/14/17 09:47 Dose: 40 mg Sevelamer Carbonate (Renvela -) 800 mg PO TIDCM [facility] Last Admin: 09/14/17 16:30 Dose: 800 mg Thiamine HCl (Vitamin B1 -) 100 mg PO DAILY [facility] Last Admin: 09/14/17 09:48 Dose: 100 mg - Objective Vital Signs: Vital Signs Temperature 99.6 F 09/14/17 17:03 Pulse Rate 90 09/14/17 18:00 Respiratory Rate 30 H 09/14/17 18:00 Blood Pressure 148/78 09/14/17 18:00 O2 Sat by Pulse Oximetry (%) 96 09/14/17 12:00 Constitutional: Yes: No Distress, Calm Neck: Yes: Supple Cardiovascular: Yes: Regular Rate and Rhythm Respiratory: Yes: Intubated, Mechanically Ventilated, Rhonchi Gastrointestinal: Yes: Normal Bowel Sounds, Soft Edema: Yes Edema: LLE: Trace, RLE: Trace Labs: CBC, BMP 09/14/17 18:50 09/14/17 18:50 INR, PTT INR 0.96 (0.82-1.09) 09/01/17 09:05 - ....Imaging Chest X-ray: Report Reviewed (Stable changes) Problem List - Problems (1) Pneumonia Code(s): J18.9 - PNEUMONIA, UNSPECIFIED ORGANISM Qualifiers: Pneumonia type: aspiration pneumonia (2) Respiratory failure with hypoxia Code(s): J96.91 - RESPIRATORY FAILURE, UNSPECIFIED WITH HYPOXIA Qualifiers: Chronicity: acute Qualified Code(s): J96.01 - Acute respiratory failure with hypoxia; J96.01 - Acute respiratory failure with hypoxia; J96.01 - Acute respiratory failure with hypoxia (3) Staphylococcus aureus bacteremia Code(s): R78.81 - BACTEREMIA (4) Acute kidney injury Code(s): N17.9 - ACUTE KIDNEY FAILURE, UNSPECIFIED (6) Acute diastolic heart failure Code(s): I50.31 - ACUTE DIASTOLIC (CONGESTIVE) HEART FAILURE (7) History of alcohol abuse Code(s): Z87.898 - PERSONAL HISTORY OF OTHER SPECIFIED CONDITIONS (8) Anemia Code(s): D64.9 - ANEMIA, UNSPECIFIED Qualifiers: Anemia type: unspecified type Qualified Code(s): D64.9 - Anemia, unspecified; D64.9 - Anemia, unspecified Assessment/Plan Echo: 09/02/2017 Technical difficult study, prob preserved LV fxn, but can't r/ o RWMA 1. Acute hypoxic respiratory failure, remains intubated/sedated, pulmonary infiltrates/pulmonary edema 2. Cavitary pneumonia, MSSA bacteremia post septic shock, ALISA negative for endocarditis 3. Acute LV diastolic failure recurring 4. History of alcohol dependence 5. Acute kidney injury 6. Anemia PLAN: 1. Abx and antifungal course per ID, surveillance cx to document clearance 2. IV diuretics with f/u renal fxn, electrolyte and diuretic response, renal input appreciated 3. SBT per critical care team, transfuse to maintain Hgb>8.0 4. Enteral feeds, DVT and GI prophylaxis
[2017-09-15] MEDS: PROPOFOL 100 ML IVPUSH SCH ×4 (02:30→21:00)
[2017-09-15] MEDS: FUROSEMIDE 40 MG/4 ML INJECTABLE VIAL IVPUSH SCH (05:42)
[2017-09-15] MEDS: ALBUMIN HUMAN 25% 12.5 GM/50 ML VIAL IVPB SCH (05:42)
[2017-09-15] MEDS: HEPARIN NA (PORCINE) 5,000 UNITS/ML 1ML VIAL SQ SCH ×3 (05:42→21:28)
[2017-09-15 06:29] LABS: BASOPHIL 0.8 % (0-2.0); EOSINOPHIL 2.9 % (0-4.5); MCH 30.4 pg (25.7-33.7); MCHC 34.5 g/dl (32.0-35.9); MEAN CELL VOLUME 88.1 fl (80-96); MEAN PLT VOLUME 6.6 fl (7.5-11.1); NEUTROPHILS 78.3 % (42.8-82.8); PLATELET COUNT 507 K/MM3 (134-434); RDW 18.1 % (11.9-15.9); WHITE BLOOD COUNT 10.3 K/mm3 (4.0-10.0)
[2017-09-15 08:06] LABS: COMPLEMENT C3 142 mg/dL (82-167); COMPLEMENT C4 14 mg/dL (14-44)
[2017-09-15] MEDS ORDERED: PT OWN MED DRAWER 7, Y5N ONE (08:38)
[2017-09-15] MEDS: BACITRACIN 15 GM TUBE TOPICAL OINTMENT TP SCH (09:05)
[2017-09-15] MEDS: SEVELAMER CARBONATE 800 MG TAB (FP) PO SCH ×3 (09:05→16:49)
[2017-09-15] MEDS: CHLORHEXIDINE GLUCONATE 0.12% 15ML CUP MM SCH ×2 (09:06→21:28)
[2017-09-15] MEDS: FOLIC ACID 1 MG TABLET (FP) PO SCH (09:06)
[2017-09-15] MEDS: FERROUS SO4 325 MG TABLET (FP) PO SCH (09:06)
[2017-09-15] MEDS: MULTIVITAMINS THER W-MINERALS COMBO TABLET (FP) PO SCH (09:07)
[2017-09-15] MEDS: ACETAMINOPHEN 325 MG TABLET (FP) NR PRN (09:07)
[2017-09-15] MEDS: THIAMINE HCL 100 MG TABLET (FP) PO SCH (09:07)
[2017-09-15] MEDS: PANTOPRAZOLE SODIUM 40 MG VIAL IVPUSH SCH (09:07)
[2017-09-15 09:20] LABS: ALK PHOS 137 U/L (45-117); ANION GAP 12 (8-16); BILIRUBIN,TOTAL 0.5 mg/dL (0.2-1.0); CALCIUM 8.1 mg/dL (8.5-10.1); CO2 22 mmol/L (21-32); CREATININE 3.4 mg/dL (0.7-1.3); GLUCOSE,RANDOM 120 mg/dL (74-106); SGOT/AST 29 U/L (15-37); SGPT/ALT 13 U/L (12-78); TOT PROT 6.5 g/dl (6.4-8.2)
[2017-09-15] MEDS: FLUCONAZOLE 100 MG/NS 50 ML IVPB SCH (09:53)
[2017-09-15] MEDS: CEFEPIME 0.5 GM in DEXTROSE 5%-WATER - 100 ML IVPB SCH (09:53)
--- NOTE | 2017-09-15 10:06 | PN ---
Progress Note (short form) - Note Progress Note: Patient seen and examined in the ICU. Low grade temps. Remains on AC Mode of vent 30% FiO2. Slow fall in H&H noted. No occult bleeding noted. pRBCs infusing. CXR: Pending Intake & Output 09/12/17 09/13/17 09/14/17 09/15/17 23:59 23:59 23:59 23:59 Intake Total 918 1634 2426 1300 Output Total 1700 3300 2850 900 Balance -782 -1666 -424 400 Weight 212 lb 4.8 oz 210 lb 9.6 oz 206 lb 9.6 oz 204 lb 8 oz Last Vital Signs Temp Pulse Resp BP Pulse Ox 99.4 F 86 28 H 147/85 96 09/15/17 10:03 09/15/17 10:03 09/15/17 10:03 09/15/17 10:03 09/15/17 07:32 Active Medications Acetaminophen (Tylenol -) 650 mg NR Q6H PRN PRN Reason: FEVER OR PAIN Last Admin: 09/15/17 09:07 Dose: 650 mg Bacitracin (Bacitracin -) 1 applic TP DAILY [facility] Last Admin: 09/15/17 09:05 Dose: 1 applic Chlorhexidine Gluconate (Peridex -) 15 ml MM BID [facility] Last Admin: 09/15/17 09:06 Dose: 15 ml Ferrous Sulfate (Feosol -) 325 mg PO DAILY [facility] Last Admin: 09/15/17 09:06 Dose: 325 mg Folic Acid (Folic Acid -) 1 mg PO DAILY [facility] Last Admin: 09/15/17 09:06 Dose: 1 mg Heparin Sodium (Porcine) (Heparin -) 5,000 unit SQ TID [facility] Last Admin: 09/15/17 05:42 Dose: 5,000 unit Propofol (Diprivan -) 100 mls @ 5.898 mls/hr IVPUSH [facility]; 10 MCG/KG/MIN PRN Reason: Protocol Last Admin: 09/15/17 09:11 Dose: 28 mls/hr Cefepime HCl 0.5 gm/ Dextrose 100 mls @ 100 mls/hr IVPB DAILY [facility] Last Admin: 09/15/17 09:53 Dose: 100 mls/hr Fluconazole (Diflucan 100 Mg/Ns Premixed Ivpb -) 50 mls @ 50 mls/hr IVPB DAILY [facility] Last Admin: 09/15/17 09:53 Dose: 50 mls/hr Multivitamins/Minerals (Theragran-M) 1 each PO DAILY [facility] Last Admin: 09/15/17 09:07 Dose: 1 each Pantoprazole Sodium (Protonix Iv) 40 mg IVPUSH DAILY [facility] Last Admin: 09/15/17 09:07 Dose: 40 mg Sevelamer Carbonate (Renvela -) 800 mg PO T[facility]CM [facility] Last Admin: 09/15/17 09:05 Dose: 800 mg Thiamine HCl (Vitamin B1 -) 100 mg PO DAILY [facility] Last Admin: 09/15/17 09:07 Dose: 100 mg Gen: Intubated and sedated Heart: RRR Lung: bilateral coarse rhonchi Abd: soft, nontender Ext: + edema Laboratory Results - last 24 hr 09/13/17 09/13/17 09/14/17 06:20 18:30 08:00 WBC RBC Hgb Hct MCV MCH MCHC RDW Plt Count MPV Neutrophils % Lymphocytes % Monocytes % Eosinophils % Basophils % Sodium Potassium Chloride Carbon Dioxide Anion Gap BUN Creatinine Creat Clearance w eGFR Random Glucose Calcium Total Bilirubin AST ALT Alkaline Phosphatase Total Protein Albumin Random Vancomycin PROSPER Screen Positive H PROSPER Homogeneous Pattern TNP PROSPER Nucleolar Pattern 1:80 PROSPER Speckled Pattern TNP PROSPER Centromere Pattern TNP Double Strand DNA Ab 1 Complement C3 142 Complement C4 14 Blood Type O NEGATIVE Antibody Screen Negative Crossmatch See Detail 09/14/17 09/14/17 09/15/17 18:50 18:50 05:05 WBC 10.3 H RBC 2.40 L Hgb 7.2 L D Hct 21.1 L MCV 87.8 MCH 30.0 MCHC 34.2 RDW 17.4 H D Plt Count 466 H MPV 6.2 L Neutrophils % 79.1 Lymphocytes % 10.0 Monocytes % 7.7 Eosinophils % 2.3 Basophils % 0.9 Sodium 138 Potassium 3.3 L Chloride 104 Carbon Dioxide 22 Anion Gap 12 BUN 76 H Creatinine 3.3 H Creat Clearance w eGFR Random Glucose 127 H Calcium 8.0 L Total Bilirubin AST ALT Alkaline Phosphatase Total Protein Albumin Random Vancomycin 16.479 PROSPER Screen PROSPER Homogeneous Pattern PROSPER Nucleolar Pattern PROSPER Speckled Pattern PROSPER Centromere Pattern Double Strand DNA Ab Complement C3 Complement C4 Blood Type Antibody Screen Crossmatch 09/15/17 09/15/17 05:05 05:05 WBC 10.3 H RBC 2.24 L Hgb 6.8 L* Hct 19.8 L MCV 88.1 MCH 30.4 MCHC 34.5 RDW 18.1 H Plt Count 507 H MPV 6.6 L Neutrophils % 78.3 Lymphocytes % 10.4 Monocytes % 7.6 Eosinophils % 2.9 Basophils % 0.8 Sodium 139 Potassium 3.2 L Chloride 105 Carbon Dioxide 22 Anion Gap 12 BUN 77 H Creatinine 3.4 H Creat Clearance w eGFR 18.16 Random Glucose 120 H Calcium 8.1 L Total Bilirubin 0.5 AST 29 ALT 13 D Alkaline Phosphatase 137 H Total Protein 6.5 Albumin 2.0 L Random Vancomycin PROSPER Screen PROSPER Homogeneous Pattern PROSPER Nucleolar Pattern PROSPER Speckled Pattern PROSPER Centromere Pattern Double Strand DNA Ab Complement C3 Complement C4 Blood Type Antibody Screen Crossmatch ASSESSMENT AND PLAN: Acute Hypoxic Respiratory Failure / component of ARDS physiology likely Staph Pneumonia MSSA Bacteremia -> Endocarditis ruled out Septic Shock Alcohol Dependence ARF - pRBCs - Will attempt SBTs again later today - ABX per ID - O2 to keep SpO2 >90% - Sedation vacation - Enteral feeds - DVT/GI prophylaxis - If fevers worsens may need additional imaging - Replete pita Griffin Critical care time spent in reviewing chart, evaluating patient and formulating plan 35 min
[2017-09-15] MEDS ORDERED: POTASSIUM CHLORIDE ORAL LIQUID 20 MEQ/15 ML PO ONE (11:00)
--- NOTE | 2017-09-15 11:47 | PN ---
Progress Note (short form) - Note Progress Note: awake on the vent fi02 30% no pressors Vital Signs Period Temp Pulse Resp BP Sys/Jeff Pulse Ox Last 24 Hr 98.6 F-100.6 F 82-97 18-35 123-148/72-87 96-96 cor-rrr lungs decreased bs at bases abd soft,nt ext +edema CBC, BMP 09/15/17 05:05 09/15/17 05:05 Microbiology 09/10/17 10:00 Blood Culture - Final Blood - Peripheral Venous NO GROWTH AFTER 5 DAYS INCUBATION 09/10/17 10:00 Blood Culture - Final Blood - Peripheral Venous NO GROWTH AFTER 5 DAYS INCUBATION 09/12/17 09:20 Blood Culture - Preliminary Blood - Peripheral Venous NO GROWTH OBTAINED AFTER 72 HOURS, INCUBATION TO CONTINUE FOR 2 DAYS. 09/12/17 09:15 Blood Culture - Preliminary Blood - Peripheral Venous NO GROWTH OBTAINED AFTER 72 HOURS, INCUBATION TO CONTINUE FOR 2 DAYS. Laboratory Tests 09/14/17 09/15/17 05:40 05:05 Random Vancomycin 19.384 16.479 cxray unchanged a/p MSSA sepsis ?nosocomial pneumonia continue vanco by levels cefepime diflucan just added ARF anemia- transfusion today ALISA negative d/w ICU attending
[2017-09-15 13:31] LABS: ANION GAP 15 (8-16); CALCIUM 7.9 mg/dL (8.5-10.1); CO2 20 mmol/L (21-32); CREATININE 3.2 mg/dL (0.7-1.3); GLUCOSE,RANDOM 110 mg/dL (74-106)
[2017-09-15] MEDS ORDERED: PROPOFOL 100 ML ONE (15:32)
--- NOTE | 2017-09-15 17:49 | PN ---
Teaching Attending Note Name of Resident: Sadaf Webber ATTENDING PHYSICIAN STATEMENT Time of evaluation 9:00 AM SUBJECTIVE: patient seen and examined, intubated and sedated, unable to assess for ROS. OBJECTIVE: Vital Signs Period Temp Pulse Resp BP Sys/Jeff Pulse Ox Last 24 Hr 98.6 F-100.6 F 82-98 18-45 112-162/14-87 96 Intake & Output 09/12/17 09/13/17 09/14/17 09/15/17 23:59 23:59 23:59 23:59 Intake Total 918 1634 2426 2720 Output Total 1700 3300 2850 2100 Balance -711 -1666 -648 620 Weight 212 lb 4.8 oz 210 lb 9.6 oz 206 lb 9.6 oz 204 lb 8 oz General: intubated, sedated in bed, CVS S1S2 regular Chest limited exam Abdomen soft, obese, no grimacing on deep palpation Extremities anasarca with some improvement Current Medications Acetaminophen (Tylenol -) 650 mg NR Q6H PRN PRN Reason: FEVER OR PAIN Last Admin: 09/15/17 09:07 Dose: 650 mg Bacitracin (Bacitracin -) 1 applic TP DAILY [facility] Last Admin: 09/15/17 09:05 Dose: 1 applic Chlorhexidine Gluconate (Peridex -) 15 ml MM BID [facility] Last Admin: 09/15/17 09:06 Dose: 15 ml Ferrous Sulfate (Feosol -) 325 mg PO DAILY [facility] Last Admin: 09/15/17 09:06 Dose: 325 mg Folic Acid (Folic Acid -) 1 mg PO DAILY [facility] Last Admin: 09/15/17 09:06 Dose: 1 mg Heparin Sodium (Porcine) (Heparin -) 5,000 unit SQ TID [facility] Last Admin: 09/15/17 14:21 Dose: 5,000 unit Propofol (Diprivan -) 100 mls @ 5.898 mls/hr IVPUSH [facility]; 10 MCG/KG/MIN PRN Reason: Protocol Last Admin: 09/15/17 15:37 Dose: 23 mls/hr Cefepime HCl 0.5 gm/ Dextrose 100 mls @ 100 mls/hr IVPB DAILY [facility] Last Admin: 09/15/17 09:53 Dose: 100 mls/hr Fluconazole (Diflucan 100 Mg/Ns Premixed Ivpb -) 50 mls @ 50 mls/hr IVPB DAILY [facility] Last Admin: 09/15/17 09:53 Dose: 50 mls/hr Multivitamins/Minerals (Theragran-M) 1 each PO DAILY [facility] Last Admin: 09/15/17 09:07 Dose: 1 each Pantoprazole Sodium (Protonix Iv) 40 mg IVPUSH DAILY [facility] Last Admin: 09/15/17 09:07 Dose: 40 mg Sevelamer Carbonate (Renvela -) 800 mg PO [facility] Last Admin: 09/15/17 16:49 Dose: 800 mg Thiamine HCl (Vitamin B1 -) 100 mg PO DAILY [facility] Last Admin: 09/15/17 09:07 Dose: 100 mg Laboratory Results - last 24 hr 09/13/17 09/13/17 09/14/17 06:20 18:30 08:00 WBC RBC Hgb Hct MCV MCH MCHC RDW Plt Count MPV Neutrophils % Lymphocytes % Monocytes % Eosinophils % Basophils % Sodium Potassium Chloride Carbon Dioxide Anion Gap BUN Creatinine Creat Clearance w eGFR Random Glucose Calcium Total Bilirubin AST ALT Alkaline Phosphatase Total Protein Albumin Random Vancomycin PROSPER Screen Positive H PROSPER Homogeneous Pattern TNP PROSPER Nucleolar Pattern 1:80 PROSPER Speckled Pattern TNP PROSPER Centromere Pattern TNP Double Strand DNA Ab 1 Complement C3 142 Complement C4 14 Blood Type O NEGATIVE Antibody Screen Negative Crossmatch See Detail 09/14/17 09/14/17 09/15/17 18:50 18:50 05:05 WBC 10.3 H RBC 2.40 L Hgb 7.2 L D Hct 21.1 L MCV 87.8 MCH 30.0 MCHC 34.2 RDW 17.4 H D Plt Count 466 H MPV 6.2 L Neutrophils % 79.1 Lymphocytes % 10.0 Monocytes % 7.7 Eosinophils % 2.3 Basophils % 0.9 Sodium 138 Potassium 3.3 L Chloride 104 Carbon Dioxide 22 Anion Gap 12 BUN 76 H Creatinine 3.3 H Creat Clearance w eGFR Random Glucose 127 H Calcium 8.0 L Total Bilirubin AST ALT Alkaline Phosphatase Total Protein Albumin Random Vancomycin 16.479 PROSPER Screen PROSPER Homogeneous Pattern PROSPER Nucleolar Pattern PROSPER Speckled Pattern PROSPER Centromere Pattern Double Strand DNA Ab Complement C3 Complement C4 Blood Type Antibody Screen Crossmatch 09/15/17 09/15/17 09/15/17 05:05 05:05 12:50 WBC 10.3 H RBC 2.24 L Hgb 6.8 L* Hct 19.8 L MCV 88.1 MCH 30.4 MCHC 34.5 RDW 18.1 H Plt Count 507 H MPV 6.6 L Neutrophils % 78.3 Lymphocytes % 10.4 Monocytes % 7.6 Eosinophils % 2.9 Basophils % 0.8 Sodium 139 138 Potassium 3.2 L 4.2 D Chloride 105 103 Carbon Dioxide 22 20 L Anion Gap 12 15 BUN 77 H 80 H Creatinine 3.4 H 3.2 H Creat Clearance w eGFR 18.16 Random Glucose 120 H 110 H Calcium 8.1 L 7.9 L Total Bilirubin 0.5 AST 29 ALT 13 D Alkaline Phosphatase 137 H Total Protein 6.5 Albumin 2.0 L Random Vancomycin PROSPER Screen PROSPER Homogeneous Pattern PROSPER Nucleolar Pattern PROSPER Speckled Pattern PROSPER Centromere Pattern Double Strand DNA Ab Complement C3 Complement C4 Blood Type Antibody Screen Crossmatch ASSESSMENT AND PLAN: -Acute hypoxic respiratory failure -Severe sepsis due to cavitary PNA, MSSA bacteremia, ALISA neg for vegetation -ARF, from sepsis vs medication related -Acute on chronic anemia, suspect from renal dysfunction, no clinical evidence of bleed -AFib with RVR resolved -Hypokalemia/hypomagnesemia -Hyperphosphatemia -Alcohol abuse -Normocytic anemia -Acute transaminitis -Chronic right subdural hematoma PLan: ALISA negative for vegetation. Presentation likely from sepsis from cavitary PNA/ MSSA bacteremia. Cefepime/vanco/Diflucan, Recurrent fevers follow up ID recs. s/p 1 unit PRBC on 09/14, additional 1 unit today, trend H/H, monitor for bleed , no gross evidence, recent EGD. Continue protonix. Stool occult. Vent support, daily wean trial per ICU, failed yesterday, anticipate needs improvement in infectious process and volume status beforehand. Nephrology input noted, off albumin/lasix, daily labs, follow up serology/ complement function. replete lytes prn. Trend LFTs. Patient critical with ongoing multiorgan dsyfunction. total critical care time spent 40 min.
--- NOTE | 2017-09-15 18:16 | PN ---
Progress Note (short form) - Note Progress Note: nephrology f/u in icu situation reviewed 1. ALEXANDRA 2. fluid overload 3. hypoalbuminemia 4. respiratory failure requiring intubation 5. anemia 6. etoh abuse 7. fevers Current Medications Acetaminophen (Tylenol -) 650 mg NR Q6H PRN PRN Reason: FEVER OR PAIN Last Admin: 09/15/17 09:07 Dose: 650 mg Bacitracin (Bacitracin -) 1 applic TP DAILY [facility] Last Admin: 09/15/17 09:05 Dose: 1 applic Chlorhexidine Gluconate (Peridex -) 15 ml MM BID [facility] Last Admin: 09/15/17 09:06 Dose: 15 ml Ferrous Sulfate (Feosol -) 325 mg PO DAILY [facility] Last Admin: 09/15/17 09:06 Dose: 325 mg Folic Acid (Folic Acid -) 1 mg PO DAILY [facility] Last Admin: 09/15/17 09:06 Dose: 1 mg Heparin Sodium (Porcine) (Heparin -) 5,000 unit SQ TID [facility] Last Admin: 09/15/17 14:21 Dose: 5,000 unit Propofol (Diprivan -) 100 mls @ 5.898 mls/hr IVPUSH [facility]R [facility]; 10 MCG/KG/MIN PRN Reason: Protocol Last Admin: 09/15/17 15:37 Dose: 23 mls/hr Cefepime HCl 0.5 gm/ Dextrose 100 mls @ 100 mls/hr IVPB DAILY [facility] Last Admin: 09/15/17 09:53 Dose: 100 mls/hr Fluconazole (Diflucan 100 Mg/Ns Premixed Ivpb -) 50 mls @ 50 mls/hr IVPB DAILY [facility] Last Admin: 09/15/17 09:53 Dose: 50 mls/hr Multivitamins/Minerals (Theragran-M) 1 each PO DAILY [facility] Last Admin: 09/15/17 09:07 Dose: 1 each Pantoprazole Sodium (Protonix Iv) 40 mg IVPUSH DAILY [facility] Last Admin: 09/15/17 09:07 Dose: 40 mg Sevelamer Carbonate (Renvela -) 800 mg PO TIDCM [facility] Last Admin: 09/15/17 16:49 Dose: 800 mg Thiamine HCl (Vitamin B1 -) 100 mg PO DAILY [facility] Last Admin: 09/15/17 09:07 Dose: 100 mg Last Vital Signs Temp Pulse Resp BP Pulse Ox 99.6 F 88 28 H 139/81 96 09/15/17 16:00 09/15/17 16:00 09/15/17 16:00 09/15/17 16:00 09/15/17 07:32 unresponsive on vent sedated with propofol Lungs clear vented sounds, Heart soft sounds Abd soft, no guarding ext edema CBC, BMP 09/15/17 05:05 09/15/17 12:50 renal function relatively same non oliguric being diuresed severe anemia s/p prbc s/p hypokalemia resolved consider transfusion prbc
[2017-09-16] MEDS: ACETAMINOPHEN 325 MG TABLET (FP) NR PRN ×2 (03:26→18:27)
[2017-09-16] MEDS: PROPOFOL 100 ML IVPUSH SCH ×3 (03:27→09:47)
[2017-09-16] MEDS: HEPARIN NA (PORCINE) 5,000 UNITS/ML 1ML VIAL SQ SCH ×3 (05:14→22:30)
[2017-09-16 06:15] LABS: BASOPHIL 0.8 % (0-2.0); EOSINOPHIL 3.6 % (0-4.5); MCH 29.7 pg (25.7-33.7); MCHC 34.1 g/dl (32.0-35.9); MEAN PLT VOLUME 6.4 fl (7.5-11.1); NEUTROPHILS 78.9 % (42.8-82.8); PLATELET COUNT 478 K/MM3 (134-434); RDW 17.4 % (11.9-15.9); WHITE BLOOD COUNT 11.8 K/mm3 (4.0-10.0)
[2017-09-16 06:44] LABS: ALBUMIN 1.6 g/dl (3.4-5.0); ALK PHOS 139 U/L (45-117); ANION GAP 13 (8-16); BILIRUBIN,TOTAL 0.6 mg/dL (0.2-1.0); CALCIUM 8.1 mg/dL (8.5-10.1); CO2 21 mmol/L (21-32); CREATININE 3.3 mg/dL (0.7-1.3); GLUCOSE,RANDOM 103 mg/dL (74-106); MAGNESIUM 2.1 mg/dL (1.8-2.4); PHOSPHOROUS 5.3 mg/dL (2.5-4.9); SGOT/AST 24 U/L (15-37); SGPT/ALT 7 U/L (12-78); TOT PROT 6.5 g/dl (6.4-8.2)
--- NOTE | 2017-09-16 07:26 | PN ---
Teaching Attending Note Name of Resident: Dominick Kasper ATTENDING PHYSICIAN STATEMENT I saw and evaluated the patient. I reviewed the resident's note and discussed the case with the resident. I agree with the resident's findings and plan as documented. SUBJECTIVE:Low grade temps/ Remains intubated/ On Cefepime OBJECTIVE:Intubated ASSESSMENT AND PLAN: Selected Entries 09/16/17 06:00 Temperature 99.6 F Pulse Rate 81 Respiratory 25 H Rate Blood Pressure 132/75 Microbiology 09/10/17 10:00 Blood - Peripheral Venous Blood Culture - Final NO GROWTH AFTER 5 DAYS INCUBATION 09/10/17 10:00 Blood - Peripheral Venous Blood Culture - Final NO GROWTH AFTER 5 DAYS INCUBATION 09/12/17 09:20 Blood - Peripheral Venous Blood Culture - Preliminary NO GROWTH OBTAINED AFTER 72 HOURS, INCUBATION TO CONTINUE FOR 2 DAYS. 09/12/17 09:15 Blood - Peripheral Venous Blood Culture - Preliminary NO GROWTH OBTAINED AFTER 72 HOURS, INCUBATION TO CONTINUE FOR 2 DAYS. Laboratory Tests 09/16/17 09/16/17 05:00 05:00 WBC 11.8 H Hgb 7.4 L Hct 21.7 L Plt Count 478 H Potassium 3.2 L D Assessment MSSA bacteremia Respiratory failure Cavitary PNA Acute renal failure ? Sepsis related Fever CRP still high ? focus of infection elsewhere ) spine psoas ? Plan Substitute Cefazolin Re further imaging could get CT lumbar spine area Esau EMERY Plan Problem List - Problems (1) Pneumonia Code(s): J18.9 - PNEUMONIA, UNSPECIFIED ORGANISM Qualifiers: Pneumonia type: aspiration pneumonia (2) Respiratory failure with hypoxia Code(s): J96.91 - RESPIRATORY FAILURE, UNSPECIFIED WITH HYPOXIA Qualifiers: Chronicity: acute Qualified Code(s): J96.01 - Acute respiratory failure with hypoxia; J96.01 - Acute respiratory failure with hypoxia; J96.01 - Acute respiratory failure with hypoxia (3) Staphylococcus aureus bacteremia Code(s): R78.81 - BACTEREMIA (5) Endocarditis due to Staphylococcus Code(s): I33.0 - ACUTE AND SUBACUTE INFECTIVE ENDOCARDITIS B95.8 - UNSP STAPHYLOCOCCUS THE CAUSE OF DISEASES CLASSD [id number]
--- NOTE | 2017-09-16 08:07 | PN ---
Physical Exam: SUBJECTIVE: Patient seen and examined in ICU. Remained vented on AC mode FiO2 30 %, light sedation on propofol gtt. OBJECTIVE: Vital Signs Period Temp Pulse Resp BP Sys/Jeff Pulse Ox Last 24 Hr 99.4 F-100.7 F 81-98 25-60 112-162/14-87 98-99 Intake & Output 09/13/17 09/14/17 09/15/17 09/16/17 23:59 23:59 23:59 23:59 Intake Total 1634 2426 2720 276 Output Total 3300 2850 3000 1500 Balance -0064 -998 -776 -3430 Weight 95.527 kg 93.712 kg 92.76 kg 92.646 kg GENERAL: vented, mildly sedated, responsive to verbal commands ENT: moist mucous membranes, ETT, NGT LUNGS: mechanical breathe sounds HEART: RRR, normal S1/S2, without murmur, rub, gallop. ABDOMEN: Soft, mildly distended EXTREMITIES: UE 3+ edema, LE 1+ edema : hines, rectal tube CBC, BMP 09/16/17 05:00 09/16/17 05:00 Hepatic Panel Total Bilirubin 0.6 mg/dL (0.2-1.0) 09/16/17 05:00 Direct Bilirubin 1.8 mg/dL (0.0-0.2) H D 09/09/17 05:00 AST 24 U/L (15-37) 09/16/17 05:00 ALT 7 U/L (12-78) L D 09/16/17 05:00 Alkaline Phosphatase 139 U/L (45-117) H 09/16/17 05:00 Albumin 1.6 g/dl (3.4-5.0) L 09/16/17 05:00 Ca - 8.1 Phos - 5.3 Mg - 2.1 Microbiology 09/12/17 09:20 Blood - Peripheral Venous Blood Culture - Preliminary NO GROWTH OBTAINED AFTER 96 HOURS, INCUBATION TO CONTINUE FOR 1 DAYS. 09/12/17 09:15 Blood - Peripheral Venous Blood Culture - Preliminary NO GROWTH OBTAINED AFTER 96 HOURS, INCUBATION TO CONTINUE FOR 1 DAYS. 09/10/17 10:00 Blood - Peripheral Venous Blood Culture - Final NO GROWTH AFTER 5 DAYS INCUBATION 09/10/17 10:00 Blood - Peripheral Venous Blood Culture - Final NO GROWTH AFTER 5 DAYS INCUBATION 09/08/17 05:45 Blood - Peripheral Venous Blood Culture - Final NO GROWTH AFTER 5 DAYS INCUBATION 09/08/17 05:45 Blood - Peripheral Venous Blood Culture - Final NO GROWTH AFTER 5 DAYS INCUBATION 09/10/17 09:35 Sputum - Endotrachea Suction/Ventilator Gram Stain - Final 09/10/17 09:35 Sputum - Endotrachea Suction/Ventilator Sputum Culture - Final Yeast Like Organism 09/08/17 18:07 Pleural Fluid Gram Stain - Final 09/08/17 18:07 Pleural Fluid Body Fluid Culture - Final NO GROWTH OF AEROBIC ORGANISMS AFTER 48 HOURS INCUBATION 09/08/17 18:07 Pleural Fluid Anaerobic Culture - Final NO ANAEROBES WERE ISOLATED 09/10/17 09:35 Urine - Urine Hines Urine Culture - Final NO GROWTH OBTAINED 09/06/17 11:02 Blood - Peripheral Venous Blood Culture - Final NO GROWTH AFTER 5 DAYS INCUBATION 09/10/17 09:05 Stool Clostridium difficile Antigen (KHRIS) - Final 09/10/17 09:05 Stool Clostridium difficile Toxin Assay - Final 09/08/17 18:00 Pleural Fluid AFB Smear Concentration - Final 09/08/17 18:00 Pleural Fluid Mycobacterial Culture - Preliminary Active Medications Acetaminophen (Tylenol -) 650 mg NR Q6H PRN PRN Reason: FEVER OR PAIN Last Admin: 09/16/17 03:26 Dose: 650 mg Bacitracin (Bacitracin -) 1 applic TP DAILY [facility] Last Admin: 09/16/17 09:36 Dose: 1 applic Chlorhexidine Gluconate (Peridex -) 15 ml MM BID [facility] Last Admin: 09/16/17 10:10 Dose: 15 ml Ferrous Sulfate (Feosol -) 325 mg PO DAILY [facility] Last Admin: 09/16/17 09:36 Dose: 325 mg Folic Acid (Folic Acid -) 1 mg PO DAILY [facility] Last Admin: 09/16/17 09:36 Dose: 1 mg Heparin Sodium (Porcine) (Heparin -) 5,000 unit SQ TID [facility] Last Admin: 09/16/17 13:20 Dose: 5,000 unit Propofol (Diprivan -) 100 mls @ 5.898 mls/hr IVPUSH TITR [facility]; 10 MCG/KG/MIN PRN Reason: Protocol Last Titration: 09/16/17 17:13 Dose: 30 mcg/kg/min Fluconazole (Diflucan 100 Mg/Ns Premixed Ivpb -) 50 mls @ 50 mls/hr IVPB DAILY [facility] Last Admin: 09/16/17 09:35 Dose: 50 mls/hr Cefazolin Sodium (Ancef 1gm Ivpb (Pre-Docked)) 50 mls @ 100 mls/hr IVPB Q8H-IV [facility] Last Admin: 09/16/17 09:35 Dose: 100 mls/hr Multivitamins/Minerals (Theragran-M) 1 each PO DAILY [facility] Last Admin: 09/16/17 09:36 Dose: 1 each Pantoprazole Sodium (Protonix Iv) 40 mg IVPUSH DAILY [facility] Last Admin: 09/16/17 09:36 Dose: 40 mg Sevelamer Carbonate (Renvela -) 800 mg PO TIDCM [facility] Last Admin: 09/16/17 17:10 Dose: 800 mg Thiamine HCl (Vitamin B1 -) 100 mg PO DAILY [facility] Last Admin: 09/16/17 09:36 Dose: 100 mg ASSESSMENT/PLAN: 66yo man with PMH of EtOH abuse and HTN who is admitted (08/31) for acute hypoxic respiratory failure requiring mechanical ventilation (09/02) and sepsis 2/2 cavitary PNA and MSSA bacteremia. ALISA (09/13) r/o endocarditis. Patient continues to fevers (24H Tmax 100.7). Serial blood cultures NGTD, although sputum culture growing yeast-like organism. Received 2Ux PRBCs for hemoglobin drop, which has now stabilized and patient is hemodynamically stable. #acute hypoxic respiratory failure -Vent management per ICU -Daily SBTs as tolerated -sedation holidays #sepsis 2/2 cavitary PNA, MSSA bacteremia -Abx per ID: Cefepime --> Cefazolin, continue diflucan and vanco (renally dosed) -f/u serial blood cultures -CT Chest and lumbar spine to r/o additional infectious source #ALEXANDRA -Nephrology consulted -c3/c4 complement level wnl; PROSPER positive -Strict I&Os, hines -Renal dose for meds #anemia s/p 2U PRBCs -Trend H&H -Cont Ferrous Sulfate 325 mg PO DAILY [facility] -Transfuse hgb<7 -f/u FOBT #EtOH abuse -Monitor for signs of EtOH withdrawal -Ativan 2mg IV q2h PRN -MVI, thiamine 100mg PO qd, folic acid 1mg PO daily #FEN -Hold IVF -hypokalemia repleted with 40mEq KCl PO -Enteral feeds #PPX -DVT - Hep SQ TID -GI - Pantoprazole 40mg IV daily #Dispo: continue ICU monitoring FULL code d/w Dr. Akbar Salter MD PGY-1 Visit type - Emergency Visit Emergency Visit: No - New Patient This patient is new to me today: No - Critical Care Critical Care patient: Yes Total Critical Care Time (in minutes): 40 Critical Care Statement: The care of this patient involved high complexity decision making to prevent further life threatening deterioration of the patient 's condition and/or to evaluate & treat vital organ system(s) failure or risk of failure.
--- NOTE | 2017-09-16 08:21 | PN ---
Physical Exam: SUBJECTIVE: Patient seen and examined at bedside. h eis still sedated and intubated. No acute events over night , afebrile for 48 hours . open his eyes and follow some commands. OBJECTIVE: Vital Signs Period Temp Pulse Resp BP Sys/Jeff Pulse Ox Last 24 Hr 99.4 F-100.7 F 81-98 25-60 112-162/14-87 97-99 GENERAL: intubated , sedated HEAD: Normal with no signs of trauma. EYES: conjunctiva clear. ENT: mois mucous membranes. LUNGS: Intubated B/L coarse crackles, no accessory muscle use. HEART: S1, S2 without murmur, rub or gallop. ABDOMEN: Obese,soft, nontender, nondistended, normoactive bowel sounds, no guarding, no rebound tenderness, EXTREMITIES: 2+ pitting edema. NEUROLOGICAL: sedated SKIN: Warm, dry, no rashes or lesions noted Laboratory Results - last 24 hr 09/13/17 09/15/17 09/15/17 11:39 05:05 12:50 WBC RBC Hgb Hct MCV MCH MCHC RDW Plt Count MPV Neutrophils % Lymphocytes % Monocytes % Eosinophils % Basophils % Sodium 139 138 Potassium 3.2 L 4.2 D Chloride 105 103 Carbon Dioxide 22 20 L Anion Gap 12 15 BUN 77 H 80 H Creatinine 3.4 H 3.2 H Creat Clearance w eGFR 18.16 Random Glucose 120 H 110 H Calcium 8.1 L 7.9 L Phosphorus Magnesium Total Bilirubin 0.5 AST 29 ALT 13 D Alkaline Phosphatase 137 H Total Protein 6.5 Albumin 2.0 L Urine Eosinophils None seen Random Vancomycin 09/16/17 09/16/17 09/16/17 05:00 05:00 05:00 WBC 11.8 H RBC 2.49 L Hgb 7.4 L Hct 21.7 L MCV 87.0 MCH 29.7 MCHC 34.1 RDW 17.4 H Plt Count 478 H MPV 6.4 L Neutrophils % 78.9 Lymphocytes % 10.2 Monocytes % 6.5 Eosinophils % 3.6 Basophils % 0.8 Sodium 139 Potassium 3.2 L D Chloride 105 Carbon Dioxide 21 Anion Gap 13 BUN 76 H Creatinine 3.3 H Creat Clearance w eGFR 18.79 Random Glucose 103 Calcium 8.1 L Phosphorus 5.3 H Magnesium 2.1 Total Bilirubin 0.6 AST 24 ALT 7 L D Alkaline Phosphatase 139 H Total Protein 6.5 Albumin 1.6 L Urine Eosinophils Random Vancomycin 13.976 Active Medications Generic Name Dose Route Start Last Admin Trade Name Ramo PRN Reason Stop Dose Admin Acetaminophen 650 mg 09/07/17 05:53 09/16/17 03:26 Tylenol - NR 650 mg Q6H PRN Administration FEVER OR PAIN Bacitracin 1 applic 09/02/17 10:00 09/15/17 09:05 Bacitracin - TP 1 applic DAILY [facility] Administration Chlorhexidine Gluconate 15 ml 09/08/17 12:30 09/15/17 21:28 Peridex - MM 15 ml BID [facility] Administration Ferrous Sulfate 325 mg 09/05/17 12:00 09/15/17 09:06 Feosol - PO 325 mg DAILY [facility] Administration Folic Acid 1 mg 09/02/17 10:00 09/15/17 09:06 Folic Acid - PO 1 mg DAILY [facility] Administration Heparin Sodium (Porcine) 5,000 unit 09/02/17 06:00 09/16/17 05:14 Heparin - SQ 5,000 unit TID [facility] Administration Propofol 100 mls @ 5.898 mls/hr 09/07/17 07:30 09/16/17 05:14 Diprivan - IVPUSH 23.592 mls/hr TITR [facility] Administration Protocol 10 MCG/KG/MIN Fluconazole 50 mls @ 50 mls/hr 09/13/17 10:00 09/15/17 09:53 Diflucan 100 Mg/Ns Premixed Ivpb - IVPB 50 mls/hr DAILY [facility] Administration Cefazolin Sodium 1 gm/ 50 mls @ 100 mls/hr 09/16/17 10:00 Dextrose IVPB Q8H-IV [facility] Multivitamins/Minerals 1 each 09/02/17 10:00 09/15/17 09:07 Theragran-M PO 1 each DAILY [facility] Administration Pantoprazole Sodium 40 mg 09/09/17 18:45 09/15/17 09:07 Protonix Iv IVPUSH 40 mg DAILY [facility] Administration Sevelamer Carbonate 800 mg 09/12/17 17:30 09/15/17 16:49 Renvela - PO 800 mg TIDCM [facility] Administration Thiamine HCl 100 mg 09/02/17 10:00 09/15/17 09:07 Vitamin B1 - PO 100 mg DAILY [facility] Administration CBC, BMP 09/16/17 05:00 09/16/17 05:00 Microbiology 09/10/17 10:00 Blood - Peripheral Venous Blood Culture - Final NO GROWTH AFTER 5 DAYS INCUBATION 09/10/17 10:00 Blood - Peripheral Venous Blood Culture - Final NO GROWTH AFTER 5 DAYS INCUBATION 09/12/17 09:20 Blood - Peripheral Venous Blood Culture - Preliminary NO GROWTH OBTAINED AFTER 72 HOURS, INCUBATION TO CONTINUE FOR 2 DAYS. 09/12/17 09:15 Blood - Peripheral Venous Blood Culture - Preliminary NO GROWTH OBTAINED AFTER 72 HOURS, INCUBATION TO CONTINUE FOR 2 DAYS. 09/08/17 05:45 Blood - Peripheral Venous Blood Culture - Final NO GROWTH AFTER 5 DAYS INCUBATION 09/08/17 05:45 Blood - Peripheral Venous Blood Culture - Final NO GROWTH AFTER 5 DAYS INCUBATION 09/10/17 09:35 Sputum - Endotrachea Suction/Ventilator Gram Stain - Final 09/10/17 09:35 Sputum - Endotrachea Suction/Ventilator Sputum Culture - Final Yeast Like Organism 09/08/17 18:07 Pleural Fluid Gram Stain - Final 09/08/17 18:07 Pleural Fluid Body Fluid Culture - Final NO GROWTH OF AEROBIC ORGANISMS AFTER 48 HOURS INCUBATION 09/08/17 18:07 Pleural Fluid Anaerobic Culture - Final NO ANAEROBES WERE ISOLATED 09/10/17 09:35 Urine - Urine Freeman Urine Culture - Final NO GROWTH OBTAINED 09/06/17 11:02 Blood - Peripheral Venous Blood Culture - Final NO GROWTH AFTER 5 DAYS INCUBATION 09/10/17 09:05 Stool Clostridium difficile Antigen (KHRIS) - Final 09/10/17 09:05 Stool Clostridium difficile Toxin Assay - Final 09/08/17 18:00 Pleural Fluid AFB Smear Concentration - Final 09/08/17 18:00 Pleural Fluid Mycobacterial Culture - Preliminary 09/06/17 11:02 Blood - Peripheral Venous Blood Culture - Final Staphylococcus Aureus 09/08/17 18:00 Pleural Fluid MAGI Preparation - Preliminary 09/08/17 18:00 Pleural Fluid Fungal Culture - Preliminary 09/04/17 08:15 Blood - Peripheral Venous Blood Culture - Final NO GROWTH AFTER 5 DAYS INCUBATION 09/04/17 08:00 Blood - Peripheral Venous Blood Culture - Final NO GROWTH AFTER 5 DAYS INCUBATION 09/05/17 21:00 Sputum - Endotrachea Suction/Ventilator Gram Stain - Final 09/05/17 21:00 Sputum - Endotrachea Suction/Ventilator Sputum Culture - Final Yeast Like Organism 09/06/17 10:20 Stool Clostridium difficile Antigen (KHRIS) - Final 09/06/17 10:20 Stool Clostridium difficile Toxin Assay - Final 09/02/17 00:00 Sputum - Endotracheal Suction W/O Vent Gram Stain - Final 09/02/17 00:00 Sputum - Endotracheal Suction W/O Vent Sputum Culture - Final Yeast Like Organism 09/03/17 12:15 Urine - Urine - Catheterized Urine Culture - Final NO GROWTH OBTAINED 09/01/17 05:00 Blood - Peripheral Venous Blood Culture - Final Staphylococcus Aureus 09/01/17 00:01 Blood - Peripheral Venous Blood Culture - Final Staphylococcus Aureus 09/01/17 15:50 Blood - Peripheral Venous Blood Culture - Final Staphylococcus Aureus 09/01/17 15:55 Blood - Peripheral Venous Blood Culture - Final Staphylococcus Aureus 08/31/17 23:22 Urine - Urine Clean Catch Urine Culture - Final Contaminated: Please Repeat ASSESSMENT/PLAN: # MSSA bactermia with possible Pneumonia #Respiratory failure #Worsening kidney function ALEXANDRA secondary to sepsis vs medication SE: consult nephrology plan * had a fever of 100.7, CRP still elevated. * F/U cultures (blood, sputum, urine) * Continue vanco/cefepim * cefepim has been decreased to 0.5 Q24 hour * patient must have occult source of infection * EGD ,shows no esophageal varices * bed side ALISA did show any vegetation * sputum culture shows yeast like organism * repeat blood culture * Diflucan 400 mg then 100mg daily * vanco troph yesterday 24.9 will hold on vanco for now * add cefazoline 1 g Q 8 hr * CT pelvic to R/O psoas collection or any osteomylitis Visit type - Emergency Visit Emergency Visit: Yes ED Registration Date: 08/31/17 Care time: The patient presented to the Emergency Department on the above date and was hospitalized for further evaluation of their emergent condition. - New Patient This patient is new to me today: No - Critical Care Critical Care patient: Yes Total Critical Care Time (in minutes): 40 Critical Care Statement: The care of this patient involved high complexity decision making to prevent further life threatening deterioration of the patient 's condition and/or to evaluate & treat vital organ system(s) failure or risk of failure.
[2017-09-16] MEDS ORDERED: PT OWN MED DRAWER 7, Y5N ONE (09:33)
[2017-09-16] MEDS: CEFAZOLIN (PRE-DOCKED) 50 ML IVPB SCH ×2 (09:35→18:27)
[2017-09-16] MEDS: SEVELAMER CARBONATE 800 MG TAB (FP) PO SCH ×3 (09:35→17:10)
[2017-09-16] MEDS: FLUCONAZOLE 100 MG/NS 50 ML IVPB SCH (09:35)
[2017-09-16] MEDS: FOLIC ACID 1 MG TABLET (FP) PO SCH (09:36)
[2017-09-16] MEDS: MULTIVITAMINS THER W-MINERALS COMBO TABLET (FP) PO SCH (09:36)
[2017-09-16] MEDS: PANTOPRAZOLE SODIUM 40 MG VIAL IVPUSH SCH (09:36)
[2017-09-16] MEDS: BACITRACIN 15 GM TUBE TOPICAL OINTMENT TP SCH (09:36)
[2017-09-16] MEDS: FERROUS SO4 325 MG TABLET (FP) PO SCH (09:36)
[2017-09-16] MEDS: THIAMINE HCL 100 MG TABLET (FP) PO SCH (09:36)
[2017-09-16] MEDS: CHLORHEXIDINE GLUCONATE 0.12% 15ML CUP MM SCH ×2 (10:10→22:30)
--- NOTE | 2017-09-16 11:55 | PN ---
Progress Note, Physician Chief Complaint: Events noted Remains on mechanical ventilation History of Present Illness: Patient was seen and examined in ICU. On mechanical ventilation Low grade temp - Current Medication List Current Medications: Active Medications Acetaminophen (Tylenol -) 650 mg NR Q6H PRN PRN Reason: FEVER OR PAIN Last Admin: 09/16/17 03:26 Dose: 650 mg Bacitracin (Bacitracin -) 1 applic TP DAILY [facility] Last Admin: 09/16/17 09:36 Dose: 1 applic Chlorhexidine Gluconate (Peridex -) 15 ml MM BID [facility] Last Admin: 09/16/17 10:10 Dose: 15 ml Ferrous Sulfate (Feosol -) 325 mg PO DAILY [facility] Last Admin: 09/16/17 09:36 Dose: 325 mg Folic Acid (Folic Acid -) 1 mg PO DAILY [facility] Last Admin: 09/16/17 09:36 Dose: 1 mg Heparin Sodium (Porcine) (Heparin -) 5,000 unit SQ TID [facility] Last Admin: 09/16/17 05:14 Dose: 5,000 unit Propofol (Diprivan -) 100 mls @ 5.898 mls/hr IVPUSH TITR [facility]; 10 MCG/KG/MIN PRN Reason: Protocol Last Admin: 09/16/17 09:47 Dose: 23.592 mls/hr Fluconazole (Diflucan 100 Mg/Ns Premixed Ivpb -) 50 mls @ 50 mls/hr IVPB DAILY [facility] Last Admin: 09/16/17 09:35 Dose: 50 mls/hr Cefazolin Sodium (Ancef 1gm Ivpb (Pre-Docked)) 50 mls @ 100 mls/hr IVPB Q8H-IV [facility] Last Admin: 09/16/17 09:35 Dose: 100 mls/hr Multivitamins/Minerals (Theragran-M) 1 each PO DAILY [facility] Last Admin: 09/16/17 09:36 Dose: 1 each Pantoprazole Sodium (Protonix Iv) 40 mg IVPUSH DAILY [facility] Last Admin: 09/16/17 09:36 Dose: 40 mg Potassium Chloride (Potassium Chloride Oral Liquid) 40 meq PO ONCE ONE Stop: 09/16/17 11:55 Sevelamer Carbonate (Renvela -) 800 mg PO TIDCM [facility] Last Admin: 09/16/17 09:35 Dose: 800 mg Thiamine HCl (Vitamin B1 -) 100 mg PO DAILY [facility] Last Admin: 09/16/17 09:36 Dose: 100 mg - Objective Vital Signs: Vital Signs Temperature 100 F H 09/16/17 10:38 Pulse Rate 80 09/16/17 10:00 Respiratory Rate 28 H 09/16/17 11:26 Blood Pressure 132/82 09/16/17 10:00 O2 Sat by Pulse Oximetry (%) 98 09/16/17 10:00 Cardiovascular: Yes: Regular Rate and Rhythm, S1, S2 Respiratory: Yes: Mechanically Ventilated, Rhonchi Gastrointestinal: Yes: Normal Bowel Sounds, Soft. No: Tenderness Edema: No Labs: CBC, BMP 09/16/17 05:00 09/16/17 05:00 Problem List - Problems (1) Acute diastolic heart failure Code(s): I50.31 - ACUTE DIASTOLIC (CONGESTIVE) HEART FAILURE (2) Anemia Code(s): D64.9 - ANEMIA, UNSPECIFIED Qualifiers: Anemia type: unspecified type Qualified Code(s): D64.9 - Anemia, unspecified; D64.9 - Anemia, unspecified (3) History of alcohol abuse Code(s): Z87.898 - PERSONAL HISTORY OF OTHER SPECIFIED CONDITIONS (4) Pneumonia Code(s): J18.9 - PNEUMONIA, UNSPECIFIED ORGANISM Qualifiers: Pneumonia type: aspiration pneumonia (5) Respiratory failure with hypoxia Code(s): J96.91 - RESPIRATORY FAILURE, UNSPECIFIED WITH HYPOXIA Qualifiers: Chronicity: acute Qualified Code(s): J96.01 - Acute respiratory failure with hypoxia; J96.01 - Acute respiratory failure with hypoxia; J96.01 - Acute respiratory failure with hypoxia (7) Abuse, drug or alcohol Code(s): F19.10 - OTHER PSYCHOACTIVE SUBSTANCE ABUSE, UNCOMPLICATED Assessment/Plan 1. Acute hypoxic respiratory failure, remains intubated/sedated, pulmonary infiltrates/pulmonary edema improving 2. Cavitary pneumonia, MSSA bacteremia suspect septic emboli, post septic shock, negative for endocarditis on ALISA 3. Probable diastolic LV dysfunction with congestive heart failure, volume overload, resolving 4. History of alcohol dependence 5. Acute renal insufficiency 6. Anemia PLAN: 1. Ventilator management as per the critical care team 2. Antibiotics and antifungal as per ID service 3. Enteral feeds, DVT and GI prophylaxis and librium taper as tolerated 4. Sedation Supportive care Jordon Gtz MD
--- NOTE | 2017-09-16 12:36 | PN ---
Teaching Attending Note Name of Resident: Lydia Salter ATTENDING PHYSICIAN STATEMENT I saw and evaluated the patient. I reviewed the resident's note and discussed the case with the resident. I agree with the resident's findings and plan as documented. SUBJECTIVE: patient seen and examined. Intubated, but opens eyes, follows simple commands. Unable to assess for ROS. OBJECTIVE: Vital Signs Period Temp Pulse Resp BP Sys/Jeff Pulse Ox Last 24 Hr 99.4 F-100.7 F 80-98 25-60 112-144/66-87 97-99 Intake & Output 09/13/17 09/14/17 09/15/17 09/16/17 23:59 23:59 23:59 23:59 Intake Total 1634 2426 2720 276 Output Total 3300 2850 3000 700 Balance -1666 -424 -280 -424 Weight 210 lb 9.6 oz 206 lb 9.6 oz 204 lb 8 oz 204 lb 4 oz General: intubated, off sedation currently, opens eyes when called CVS: S1S2 regular Chest limited exam, poor effort, no rales or wheezing appreciated Abdomen: soft, obese, No wincing on full abdominal exam with superficial and deep palpation. Extremities improved anasarca Neuro Opens eyes to commands, able to moves toes and fingers on command, no gross focal deficit noted, further exam limited Current Medications Acetaminophen (Tylenol -) 650 mg NR Q6H PRN PRN Reason: FEVER OR PAIN Last Admin: 09/16/17 03:26 Dose: 650 mg Bacitracin (Bacitracin -) 1 applic TP DAILY [facility] Last Admin: 09/16/17 09:36 Dose: 1 applic Chlorhexidine Gluconate (Peridex -) 15 ml MM BID [facility] Last Admin: 09/16/17 10:10 Dose: 15 ml Ferrous Sulfate (Feosol -) 325 mg PO DAILY [facility] Last Admin: 09/16/17 09:36 Dose: 325 mg Folic Acid (Folic Acid -) 1 mg PO DAILY [facility] Last Admin: 09/16/17 09:36 Dose: 1 mg Heparin Sodium (Porcine) (Heparin -) 5,000 unit SQ TID [facility] Last Admin: 09/16/17 05:14 Dose: 5,000 unit Propofol (Diprivan -) 100 mls @ 5.898 mls/hr IVPUSH TITR [facility]; 10 MCG/KG/MIN PRN Reason: Protocol Last Admin: 09/16/17 09:47 Dose: 23.592 mls/hr Fluconazole (Diflucan 100 Mg/Ns Premixed Ivpb -) 50 mls @ 50 mls/hr IVPB DAILY [facility] Last Admin: 09/16/17 09:35 Dose: 50 mls/hr Cefazolin Sodium (Ancef 1gm Ivpb (Pre-Docked)) 50 mls @ 100 mls/hr IVPB Q8H-IV [facility] Last Admin: 09/16/17 09:35 Dose: 100 mls/hr Multivitamins/Minerals (Theragran-M) 1 each PO DAILY [facility] Last Admin: 09/16/17 09:36 Dose: 1 each Pantoprazole Sodium (Protonix Iv) 40 mg IVPUSH DAILY [facility] Last Admin: 09/16/17 09:36 Dose: 40 mg Potassium Chloride (Potassium Chloride Oral Liquid) 40 meq PO ONCE ONE Stop: 09/16/17 13:01 Sevelamer Carbonate (Renvela -) 800 mg PO TIDCM [facility] Last Admin: 09/16/17 09:35 Dose: 800 mg Thiamine HCl (Vitamin B1 -) 100 mg PO DAILY [facility] Last Admin: 09/16/17 09:36 Dose: 100 mg Laboratory Results - last 24 hr 09/13/17 09/15/17 09/16/17 11:39 12:50 05:00 WBC RBC Hgb Hct MCV MCH MCHC RDW Plt Count MPV Neutrophils % Lymphocytes % Monocytes % Eosinophils % Basophils % Sodium 138 Potassium 4.2 D Chloride 103 Carbon Dioxide 20 L Anion Gap 15 BUN 80 H Creatinine 3.2 H Creat Clearance w eGFR Random Glucose 110 H Calcium 7.9 L Phosphorus Magnesium Total Bilirubin AST ALT Alkaline Phosphatase Total Protein Albumin Urine Eosinophils None seen Random Vancomycin 13.976 09/16/17 09/16/17 05:00 05:00 WBC 11.8 H RBC 2.49 L Hgb 7.4 L Hct 21.7 L MCV 87.0 MCH 29.7 MCHC 34.1 RDW 17.4 H Plt Count 478 H MPV 6.4 L Neutrophils % 78.9 Lymphocytes % 10.2 Monocytes % 6.5 Eosinophils % 3.6 Basophils % 0.8 Sodium 139 Potassium 3.2 L D Chloride 105 Carbon Dioxide 21 Anion Gap 13 BUN 76 H Creatinine 3.3 H Creat Clearance w eGFR 18.79 Random Glucose 103 Calcium 8.1 L Phosphorus 5.3 H Magnesium 2.1 Total Bilirubin 0.6 AST 24 ALT 7 L D Alkaline Phosphatase 139 H Total Protein 6.5 Albumin 1.6 L Urine Eosinophils Random Vancomycin ASSESSMENT AND PLAN: -Acute hypoxic respiratory failure -Severe sepsis due to cavitary PNA, MSSA bacteremia, ALISA neg for vegetation -ARF, from sepsis vs medication related -Acute on chronic anemia, suspect from renal dysfunction, no clinical evidence of bleed -AFib with RVR resolved -Hypokalemia/hypomagnesemia -Hyperphosphatemia -Alcohol abuse -Normocytic anemia -Acute transaminitis -Chronic right subdural hematoma PLan: ALISA negative for vegetation. Presentation likely from sepsis from cavitary PNA/ MSSA bacteremia. Cefepime/vanco/Diflucan, Recurrent fevers with elevated CRP, plan for CT chest and CT LS spine/pelvis to assess for psoas abscess or additional occult source. s/p 2 units PRBC, Hb stable today, transfuse prn for Hb<7, currently no concerns for active bleed, recent EGD. Continue protonix. Stool occult. Vent support, daily wean trial per ICU, failed yesterday, anticipate needs improvement in infectious process and volume status beforehand. Discuss with ICU about trach. Nephrology input noted, off albumin/lasix, daily labs, follow up serology/ complement function. Renal function plateaued, non oliguric. Replete lytes prn. Trend LFTs. Patient critical with ongoing multiorgan dsyfunction. total critical care time spent 40 min.
[2017-09-16] MEDS ORDERED: POTASSIUM CHLORIDE ORAL LIQUID 20 MEQ/15 ML PO ONE (13:00)
--- NOTE | 2017-09-16 13:24 | PN ---
Progress Note, Physician History of Present Illness: Pt seen and examined at bedside. He remains in the ICU. He remains intubated. Reviewed weekend notes. Pt is sedated. - Current Medication List Current Medications: Active Medications Acetaminophen (Tylenol -) 650 mg NR Q6H PRN PRN Reason: FEVER OR PAIN Last Admin: 09/16/17 03:26 Dose: 650 mg Bacitracin (Bacitracin -) 1 applic TP DAILY [facility] Last Admin: 09/16/17 09:36 Dose: 1 applic Chlorhexidine Gluconate (Peridex -) 15 ml MM BID [facility] Last Admin: 09/16/17 10:10 Dose: 15 ml Ferrous Sulfate (Feosol -) 325 mg PO DAILY [facility] Last Admin: 09/16/17 09:36 Dose: 325 mg Folic Acid (Folic Acid -) 1 mg PO DAILY [facility] Last Admin: 09/16/17 09:36 Dose: 1 mg Heparin Sodium (Porcine) (Heparin -) 5,000 unit SQ TID [facility] Last Admin: 09/16/17 05:14 Dose: 5,000 unit Propofol (Diprivan -) 100 mls @ 5.898 mls/hr IVPUSH TITR [facility]; 10 MCG/KG/MIN PRN Reason: Protocol Last Admin: 09/16/17 09:47 Dose: 23.592 mls/hr Fluconazole (Diflucan 100 Mg/Ns Premixed Ivpb -) 50 mls @ 50 mls/hr IVPB DAILY [facility] Last Admin: 09/16/17 09:35 Dose: 50 mls/hr Cefazolin Sodium (Ancef 1gm Ivpb (Pre-Docked)) 50 mls @ 100 mls/hr IVPB Q8H-IV [facility] Last Admin: 09/16/17 09:35 Dose: 100 mls/hr Multivitamins/Minerals (Theragran-M) 1 each PO DAILY [facility] Last Admin: 09/16/17 09:36 Dose: 1 each Pantoprazole Sodium (Protonix Iv) 40 mg IVPUSH DAILY [facility] Last Admin: 09/16/17 09:36 Dose: 40 mg Sevelamer Carbonate (Renvela -) 800 mg PO TIDCM [facility] Last Admin: 09/16/17 09:35 Dose: 800 mg Thiamine HCl (Vitamin B1 -) 100 mg PO DAILY [facility] Last Admin: 09/16/17 09:36 Dose: 100 mg - Objective Vital Signs: Vital Signs Temperature 100 F H 09/16/17 10:38 Pulse Rate 80 09/16/17 12:00 Respiratory Rate 26 H 09/16/17 12:00 Blood Pressure 143/82 09/16/17 12:00 O2 Sat by Pulse Oximetry (%) 98 09/16/17 10:00 Constitutional: Yes: Calm Eyes: Yes: Conjunctiva Clear HENT: Yes: Atraumatic Cardiovascular: Yes: S1, S2 Respiratory: Yes: Mechanically Ventilated Gastrointestinal: Yes: Soft Genitourinary: Yes: Freeman Present Musculoskeletal: Yes: Muscle Weakness Edema: Yes Edema: LLE: Trace, RLE: Trace Neurological: Yes: Other (sedated) Labs: CBC, BMP 09/16/17 05:00 09/16/17 05:00 INR, PTT INR 0.96 (0.82-1.09) 09/01/17 09:05 - ....Imaging Chest X-ray: Report Reviewed Problem List - Problems (1) Acute kidney injury Code(s): N17.9 - ACUTE KIDNEY FAILURE, UNSPECIFIED (2) Anemia Code(s): D64.9 - ANEMIA, UNSPECIFIED Qualifiers: Anemia type: unspecified type Qualified Code(s): D64.9 - Anemia, unspecified; D64.9 - Anemia, unspecified (3) Hyponatremia Code(s): E87.1 - HYPO-OSMOLALITY AND HYPONATREMIA (4) Respiratory failure with hypoxia Code(s): J96.91 - RESPIRATORY FAILURE, UNSPECIFIED WITH HYPOXIA Qualifiers: Chronicity: acute Qualified Code(s): J96.01 - Acute respiratory failure with hypoxia; J96.01 - Acute respiratory failure with hypoxia; J96.01 - Acute respiratory failure with hypoxia (5) Staphylococcus aureus bacteremia Code(s): R78.81 - BACTEREMIA (6) Withdrawal symptoms, alcohol Code(s): F10.239 - ALCOHOL DEPENDENCE WITH WITHDRAWAL, UNSPECIFIED Qualifiers : Complication of substance-induced condition: uncomplicated Qualified Code(s): F10.230 - Alcohol dependence with withdrawal, uncomplicated; F10.230 - Alcohol dependence with withdrawal, uncomplicated; F10.230 - Alcohol dependence with withdrawal, uncomplicated (7) Abuse, drug or alcohol Code(s): F19.10 - OTHER PSYCHOACTIVE SUBSTANCE ABUSE, UNCOMPLICATED Assessment/Plan Current Medications Generic Name Dose Route Start Last Admin Trade Name Ramo PRN Reason Stop Dose Admin Acetaminophen 650 mg 09/07/17 05:53 09/16/17 03:26 Tylenol - NR 650 mg Q6H PRN Administration FEVER OR PAIN Bacitracin 1 applic 09/02/17 10:00 09/16/17 09:36 Bacitracin - TP 1 applic DAILY [facility] Administration Chlorhexidine Gluconate 15 ml 09/08/17 12:30 09/16/17 10:10 Peridex - MM 15 ml BID [facility] Administration Ferrous Sulfate 325 mg 09/05/17 12:00 09/16/17 09:36 Feosol - PO 325 mg DAILY [facility] Administration Folic Acid 1 mg 09/02/17 10:00 09/16/17 09:36 Folic Acid - PO 1 mg DAILY [facility] Administration Heparin Sodium (Porcine) 5,000 unit 09/02/17 06:00 09/16/17 05:14 Heparin - SQ 5,000 unit TID [facility] Administration Propofol 100 mls @ 5.898 mls/hr 09/07/17 07:30 09/16/17 09:47 Diprivan - IVPUSH 23.592 mls/hr TITR [facility] Administration Protocol 10 MCG/KG/MIN Fluconazole 50 mls @ 50 mls/hr 09/13/17 10:00 09/16/17 09:35 Diflucan 100 Mg/Ns Premixed Ivpb - IVPB 50 mls/hr DAILY [facility] Administration Cefazolin Sodium 50 mls @ 100 mls/hr 09/16/17 10:00 09/16/17 09:35 Ancef 1gm Ivpb (Pre-Docked) IVPB 100 mls/hr Q8H-IV [facility] Administration Multivitamins/Minerals 1 each 09/02/17 10:00 09/16/17 09:36 Theragran-M PO 1 each DAILY [facility] Administration Pantoprazole Sodium 40 mg 09/09/17 18:45 09/16/17 09:36 Protonix Iv IVPUSH 40 mg DAILY [facility] Administration Sevelamer Carbonate 800 mg 09/12/17 17:30 09/16/17 09:35 Renvela - PO 800 mg TIDCM [facility] Administration Thiamine HCl 100 mg 09/02/17 10:00 09/16/17 09:36 Vitamin B1 - PO 100 mg DAILY [facility] Administration Laboratory Tests 09/01/17 09/02/17 09/13/17 09:05 05:00 06:20 Urine Eosinophils JEANIE Screen Positive H JEANIE Homogeneous Pattern TNP JEANIE Nucleolar Pattern 1:80 JEANIE Speckled Pattern TNP c-ANCA Pending Proteinase 3 (PR3) Pending p-ANCA Pending Atypical p-ANCA Pending Myeloperoxidase Ab Pending Double Strand DNA Ab 1 Glomerular Base Memb Ab Pending Complement C3 Complement C4 Hepatitis A IgM Ab Negative Hep Bs Antigen Negative Hep B Core IgM Ab Negative HIV 1&2 Antibody Screen Negative HIV P24 Antigen Negative 09/13/17 09/13/17 11:39 18:30 Urine Eosinophils None seen JEANIE Screen JEANIE Homogeneous Pattern JEANIE Nucleolar Pattern JEANIE Speckled Pattern c-ANCA Proteinase 3 (PR3) p-ANCA Atypical p-ANCA Myeloperoxidase Ab Double Strand DNA Ab Glomerular Base Memb Ab Complement C3 142 Complement C4 14 Hepatitis A IgM Ab Hep Bs Antigen Hep B Core IgM Ab HIV 1&2 Antibody Screen HIV P24 Antigen Impression 1. ALEXANDRA 2. fluid overload 3. hypoalbuminemia 4. respiratory failure requiring intubation 5. anemia 6. etoh abuse 7. fevers 8. hypokalemia Plan - will continue to monitor renal function - renal function noted - replace potassium - monitor potassium levels - c3 and c4 levels are normal - daily cxr - vent support - jeanie is positive, consider rheum eval - will repeat ua and lytes - will follow Dr Peres
--- NOTE | 2017-09-16 14:55 | PN ---
Physical Exam: SUBJECTIVE: Patient seen and examined patient sedated and intubated had one episode of 100.7F temp. OBJECTIVE: Vital Signs Period Temp Pulse Resp BP Sys/Jeff Pulse Ox Last 24 Hr 99.4 F-100.7 F 80-98 25-60 128-144/75-83 97-99 GENERAL: vented, mildly sedated, responsive to verbal commands ENT: moist mucous membranes, ETT, NGT LUNGS: b/l air entry present. HEART: RRR, normal S1/S2, without murmur, rub, gallop. ABDOMEN: Soft, mildly distended, normoactive bowel sounds : hines, rectal tube Laboratory Results - last 24 hr 09/13/17 09/13/17 09/16/17 06:20 11:39 05:00 WBC RBC Hgb Hct MCV MCH MCHC RDW Plt Count MPV Neutrophils % Lymphocytes % Monocytes % Eosinophils % Basophils % Sodium Potassium Chloride Carbon Dioxide Anion Gap BUN Creatinine Creat Clearance w eGFR Random Glucose Calcium Phosphorus Magnesium Total Bilirubin AST ALT Alkaline Phosphatase Total Protein Albumin Urine Eosinophils None seen Random Vancomycin 13.976 PROSPER Screen Positive H PROSPER Homogeneous Pattern TNP PROSPER Nucleolar Pattern 1:80 PROSPER Speckled Pattern TNP PROSPER Centromere Pattern TNP Double Strand DNA Ab 1 Glomerular Base Memb Ab 5 09/16/17 09/16/17 05:00 05:00 WBC 11.8 H RBC 2.49 L Hgb 7.4 L Hct 21.7 L MCV 87.0 MCH 29.7 MCHC 34.1 RDW 17.4 H Plt Count 478 H MPV 6.4 L Neutrophils % 78.9 Lymphocytes % 10.2 Monocytes % 6.5 Eosinophils % 3.6 Basophils % 0.8 Sodium 139 Potassium 3.2 L D Chloride 105 Carbon Dioxide 21 Anion Gap 13 BUN 76 H Creatinine 3.3 H Creat Clearance w eGFR 18.79 Random Glucose 103 Calcium 8.1 L Phosphorus 5.3 H Magnesium 2.1 Total Bilirubin 0.6 AST 24 ALT 7 L D Alkaline Phosphatase 139 H Total Protein 6.5 Albumin 1.6 L Urine Eosinophils Random Vancomycin PROSPER Screen PROSPER Homogeneous Pattern PROSPER Nucleolar Pattern PROSPER Speckled Pattern PROSPER Centromere Pattern Double Strand DNA Ab Glomerular Base Memb Ab Active Medications Generic Name Dose Route Start Last Admin Trade Name Freq PRN Reason Stop Dose Admin Acetaminophen 650 mg 09/07/17 05:53 09/16/17 03:26 Tylenol - NR 650 mg Q6H PRN Administration FEVER OR PAIN Bacitracin 1 applic 09/02/17 10:00 09/16/17 09:36 Bacitracin - TP 1 applic DAILY [facility] Administration Chlorhexidine Gluconate 15 ml 09/08/17 12:30 09/16/17 10:10 Peridex - MM 15 ml BID [facility] Administration Ferrous Sulfate 325 mg 09/05/17 12:00 09/16/17 09:36 Feosol - PO 325 mg DAILY [facility] Administration Folic Acid 1 mg 09/02/17 10:00 09/16/17 09:36 Folic Acid - PO 1 mg DAILY [facility] Administration Heparin Sodium (Porcine) 5,000 unit 09/02/17 06:00 09/16/17 05:14 Heparin - SQ 5,000 unit TID [facility] Administration Propofol 100 mls @ 5.898 mls/hr 09/07/17 07:30 09/16/17 09:47 Diprivan - IVPUSH 23.592 mls/hr TITR [facility] Administration Protocol 10 MCG/KG/MIN Fluconazole 50 mls @ 50 mls/hr 09/13/17 10:00 09/16/17 09:35 Diflucan 100 Mg/Ns Premixed Ivpb - IVPB 50 mls/hr DAILY [facility] Administration Cefazolin Sodium 50 mls @ 100 mls/hr 09/16/17 10:00 09/16/17 09:35 Ancef 1gm Ivpb (Pre-Docked) IVPB 100 mls/hr Q8H-IV [facility] Administration Multivitamins/Minerals 1 each 09/02/17 10:00 09/16/17 09:36 Theragran-M PO 1 each DAILY [facility] Administration Pantoprazole Sodium 40 mg 09/09/17 18:45 09/16/17 09:36 Protonix Iv IVPUSH 40 mg DAILY [facility] Administration Sevelamer Carbonate 800 mg 09/12/17 17:30 09/16/17 09:35 Renvela - PO 800 mg TIDCM [facility] Administration Thiamine HCl 100 mg 09/02/17 10:00 09/16/17 09:36 Vitamin B1 - PO 100 mg DAILY [facility] Administration ASSESSMENT/PLAN: -Acute hypoxic respiratory failure -Severe sepsis due to cavitary PNA, MSSA bacteremia, ALISA neg for vegetation -ARF, from sepsis vs medication related -Acute on chronic anemia, suspect from renal dysfunction, no clinical evidence of bleed -AFib with RVR resolved -Hypokalemia/hypomagnesemia -Hyperphosphatemia -Alcohol abuse -Normocytic anemia -Acute transaminitis -Chronic right subdural hematoma PLan: ALISA negative for vegetation. Presentation likely from sepsis from cavitary PNA/ MSSA bacteremia. Antibiotic as pe ID: cefazolin, fluconazole. Get cT cest and lumbar spine. s/p 2 units PRBC, Hb stable today, transfuse prn for Hb<7, get stool for occult. Ventilator support, wean trial. Monitor electrolytes: replace K , 40 po given. continue with thiamine. Monitor intake/output dvt pro heparin gi pro protonix dispo in icu Visit type - Emergency Visit Emergency Visit: Yes ED Registration Date: 08/31/17 Care time: The patient presented to the Emergency Department on the above date and was hospitalized for further evaluation of their emergent condition. - New Patient This patient is new to me today: No - Critical Care Critical Care patient: Yes Total Critical Care Time (in minutes): 45 Critical Care Statement: The care of this patient involved high complexity decision making to prevent further life threatening deterioration of the patient 's condition and/or to evaluate & treat vital organ system(s) failure or risk of failure.
--- NOTE | 2017-09-16 15:23 | PN ---
Teaching Attending Note Name of Resident: Anton Zamora ATTENDING PHYSICIAN STATEMENT I saw and evaluated the patient. I reviewed the resident's note and discussed the case with the resident. I agree with the resident's findings and plan as documented. SUBJECTIVE: Patient seen and examined in the ICU. Low grade temps persist. Remains on AC Mode of vent 30% FiO2. No occult bleeding noted. CXR: No gross change Intake & Output 09/13/17 09/14/17 09/15/17 09/16/17 23:59 23:59 23:59 23:59 Intake Total 1634 2426 2720 276 Output Total 3300 2850 3000 700 Balance -1666 -424 -280 -424 Weight 210 lb 9.6 oz 206 lb 9.6 oz 204 lb 8 oz 204 lb 4 oz Last Vital Signs Temp Pulse Resp BP Pulse Ox 100 F H 95 H 32 H 143/82 97 09/16/17 10:38 09/16/17 14:22 09/16/17 14:22 09/16/17 12:00 09/16/17 14:22 Active Medications Acetaminophen (Tylenol -) 650 mg NR Q6H PRN PRN Reason: FEVER OR PAIN Last Admin: 09/16/17 03:26 Dose: 650 mg Bacitracin (Bacitracin -) 1 applic TP DAILY [facility] Last Admin: 09/16/17 09:36 Dose: 1 applic Chlorhexidine Gluconate (Peridex -) 15 ml MM BID [facility] Last Admin: 09/16/17 10:10 Dose: 15 ml Ferrous Sulfate (Feosol -) 325 mg PO DAILY [facility] Last Admin: 09/16/17 09:36 Dose: 325 mg Folic Acid (Folic Acid -) 1 mg PO DAILY [facility] Last Admin: 09/16/17 09:36 Dose: 1 mg Heparin Sodium (Porcine) (Heparin -) 5,000 unit SQ TID [facility] Last Admin: 09/16/17 05:14 Dose: 5,000 unit Propofol (Diprivan -) 100 mls @ 5.898 mls/hr IVPUSH TITR [facility]; 10 MCG/KG/MIN PRN Reason: Protocol Last Admin: 09/16/17 09:47 Dose: 23.592 mls/hr Fluconazole (Diflucan 100 Mg/Ns Premixed Ivpb -) 50 mls @ 50 mls/hr IVPB DAILY [facility] Last Admin: 09/16/17 09:35 Dose: 50 mls/hr Cefazolin Sodium (Ancef 1gm Ivpb (Pre-Docked)) 50 mls @ 100 mls/hr IVPB Q8H-IV [facility] Last Admin: 09/16/17 09:35 Dose: 100 mls/hr Multivitamins/Minerals (Theragran-M) 1 each PO DAILY [facility] Last Admin: 09/16/17 09:36 Dose: 1 each Pantoprazole Sodium (Protonix Iv) 40 mg IVPUSH DAILY [facility] Last Admin: 09/16/17 09:36 Dose: 40 mg Sevelamer Carbonate (Renvela -) 800 mg PO TIDCM [facility] Last Admin: 09/16/17 09:35 Dose: 800 mg Thiamine HCl (Vitamin B1 -) 100 mg PO DAILY [facility] Last Admin: 09/16/17 09:36 Dose: 100 mg Gen: Intubated and sedated Heart: RRR Lung: bilateral coarse rhonchi Abd: soft, nontender Ext: + edema Laboratory Results - last 24 hr 09/13/17 09/13/17 09/16/17 06:20 11:39 05:00 WBC RBC Hgb Hct MCV MCH MCHC RDW Plt Count MPV Neutrophils % Lymphocytes % Monocytes % Eosinophils % Basophils % Sodium Potassium Chloride Carbon Dioxide Anion Gap BUN Creatinine Creat Clearance w eGFR Random Glucose Calcium Phosphorus Magnesium Total Bilirubin AST ALT Alkaline Phosphatase Total Protein Albumin Urine Eosinophils None seen Random Vancomycin 13.976 PROSPER Screen Positive H PROSPER Homogeneous Pattern TNP PROSPER Nucleolar Pattern 1:80 PROSPER Speckled Pattern TNP PROSPER Centromere Pattern TNP Double Strand DNA Ab 1 Glomerular Base Memb Ab 5 09/16/17 09/16/17 05:00 05:00 WBC 11.8 H RBC 2.49 L Hgb 7.4 L Hct 21.7 L MCV 87.0 MCH 29.7 MCHC 34.1 RDW 17.4 H Plt Count 478 H MPV 6.4 L Neutrophils % 78.9 Lymphocytes % 10.2 Monocytes % 6.5 Eosinophils % 3.6 Basophils % 0.8 Sodium 139 Potassium 3.2 L D Chloride 105 Carbon Dioxide 21 Anion Gap 13 BUN 76 H Creatinine 3.3 H Creat Clearance w eGFR 18.79 Random Glucose 103 Calcium 8.1 L Phosphorus 5.3 H Magnesium 2.1 Total Bilirubin 0.6 AST 24 ALT 7 L D Alkaline Phosphatase 139 H Total Protein 6.5 Albumin 1.6 L Urine Eosinophils Random Vancomycin PROSPER Screen PROSPER Homogeneous Pattern PROSPER Nucleolar Pattern PROSPER Speckled Pattern PROSPER Centromere Pattern Double Strand DNA Ab Glomerular Base Memb Ab ASSESSMENT AND PLAN: Acute Hypoxic Respiratory Failure / component of ARDS physiology likely Staph Pneumonia MSSA Bacteremia -> Endocarditis ruled out Septic Shock Alcohol Dependence ARF - CT imaging - SBTs attempts as tolerated - ABX per ID - O2 to keep SpO2 >90% - Sedation vacation - Enteral feeds - DVT/GI prophylaxis - Replete pita Griffin Critical care time spent in reviewing chart, evaluating patient and formulating plan 35 min
[2017-09-16 17:07] LABS: URINE APPEARANCE SLCLOUDY; URINE BILIRUBIN NEGATIVE (NEGATIVE); URINE BLOOD 1+ (NEGATIVE); URINE COLOR YELLOW; URINE GLUCOSE (UA) NEGATIVE (NEGATIVE); URINE KETONE NEGATIVE (NEGATIVE); URINE NITRITE NEGATIVE (NEGATIVE); URINE UROBILINOGEN NEGATIVE mg/dL (0.2-1.0)
[2017-09-16 17:14] LABS: URINE PROTEIN 2+ (NEGATIVE)
[2017-09-16 17:15] LABS: URINE BACTERIA RARE /hpf (NONE SEEN); URINE HYALINE CAST 1 /lpf; URINE MUCUS RARE; URINE RBC 7 /hpf (0-3); URINE WBC 3 /hpf (3-5)
[2017-09-16 20:01] LABS: URINE LEUK ESTERASE Negative (NEGATIVE)
[2017-09-16] MEDS ORDERED: PROPOFOL 200 ML ONE (21:06)
[2017-09-16] MEDS: BACITRACIN/POLYMYXIN B SULFATE 15 GM TUBE TP SCH (22:20)
[2017-09-17] MEDS: PROPOFOL 100 ML IVPUSH SCH ×3 (01:00→21:28)
[2017-09-17] MEDS: CEFAZOLIN (PRE-DOCKED) 50 ML IVPB SCH ×3 (01:01→17:05)
[2017-09-17] MEDS: HEPARIN NA (PORCINE) 5,000 UNITS/ML 1ML VIAL SQ SCH ×3 (05:55→21:29)
[2017-09-17 06:20] LABS: BASOPHIL 0.5 % (0-2.0); EOSINOPHIL 3.7 % (0-4.5); MCH 29.9 pg (25.7-33.7); MCHC 34.3 g/dl (32.0-35.9); MEAN CELL VOLUME 87.1 fl (80-96); MEAN PLT VOLUME 6.3 fl (7.5-11.1); NEUTROPHILS 79.9 % (42.8-82.8); PLATELET COUNT 493 K/MM3 (134-434); RDW 16.8 % (11.9-15.9); WHITE BLOOD COUNT 12.2 K/mm3 (4.0-10.0)
--- NOTE | 2017-09-17 06:39 | PN ---
Progress Note (short form) - Note Progress Note: Chief Compliant: Events noted, notes reviewed, remains intubated and sedated, and remains febrile, low grade History of Present Illness: Seen and examined in the ICU. Events noted, notes reviewed, remains intubated and sedated, and remains febrile, low grade Was informed by the nurse that his daughter has expressed wishes for terminal weaning considering his advanced co-morbidities Echocardiography dated 09/02/2017 revealed probable preserved LV function, but can't R/O regional wall motion abnormality Chest x-ray noted improving infiltrates persistent pleural effusions - Current Medication List Current Medications Acetaminophen (Tylenol -) 650 mg NR Q6H PRN PRN Reason: FEVER OR PAIN Last Admin: 09/16/17 18:27 Dose: 650 mg Bacitracin (Bacitracin -) 1 applic TP DAILY [facility] Last Admin: 09/16/17 09:36 Dose: 1 applic Bacitracin/Polymyxin B Sulfate (Polysporin Ointment -) 1 applic TP DAILY [facility] Last Admin: 09/16/17 22:20 Dose: 1 applic Chlorhexidine Gluconate (Peridex -) 15 ml MM BID [facility] Last Admin: 09/16/17 22:30 Dose: 15 ml Ferrous Sulfate (Feosol -) 325 mg PO DAILY [facility] Last Admin: 09/16/17 09:36 Dose: 325 mg Folic Acid (Folic Acid -) 1 mg PO DAILY [facility] Last Admin: 09/16/17 09:36 Dose: 1 mg Heparin Sodium (Porcine) (Heparin -) 5,000 unit SQ TID [facility] Last Admin: 09/17/17 05:55 Dose: 5,000 unit Propofol (Diprivan -) 100 mls @ 5.898 mls/hr IVPUSH TITR [facility]; 10 MCG/KG/MIN PRN Reason: Protocol Last Admin: 09/17/17 06:48 Dose: 23.592 mls/hr Fluconazole (Diflucan 100 Mg/Ns Premixed Ivpb -) 50 mls @ 50 mls/hr IVPB DAILY [facility] Last Admin: 09/16/17 09:35 Dose: 50 mls/hr Cefazolin Sodium (Ancef 1gm Ivpb (Pre-Docked)) 50 mls @ 100 mls/hr IVPB Q8H-IV [facility] Last Admin: 09/17/17 01:01 Dose: 100 mls/hr Multivitamins/Minerals (Theragran-M) 1 each PO DAILY [facility] Last Admin: 09/16/17 09:36 Dose: 1 each Pantoprazole Sodium (Protonix Iv) 40 mg IVPUSH DAILY [facility] Last Admin: 09/16/17 09:36 Dose: 40 mg Sevelamer Carbonate (Renvela -) 800 mg PO TIDCM [facility] Last Admin: 09/16/17 17:10 Dose: 800 mg Thiamine HCl (Vitamin B1 -) 100 mg PO DAILY [facility] Last Admin: 09/16/17 09:36 Dose: 100 mg Review of systems: Unable to obtain - Objective Vital Signs: Last Vital Signs Temp Pulse Resp BP Pulse Ox 99.8 F H 92 H 25 H 140/87 98 09/17/17 06:00 09/17/17 06:00 09/17/17 06:00 09/17/17 06:00 09/16/17 20:27 Intake & Output 09/14/17 09/15/17 09/16/17 09/17/17 23:59 23:59 23:59 23:59 Intake Total 2426 2720 610 841 Output Total 2850 3000 1850 1000 Balance -424 -280 -1240 -159 Weight 206 lb 9.6 oz 204 lb 8 oz 204 lb 4 oz 203 lb 1 oz Neck: Supple Negative JVD Cardiovascular: S1 S2 Regular Rate and Rhythm No Murmurs Respiratory: Bilateral Scattered Rhonchi Gastrointestinal: Soft Benign Normal Bowel Sounds Ext: Edema Labs: CBC, BMP 09/17/17 05:00 BMP from this AM pending Assessment/Plan ASSESSMENT: 1. Acute hypoxic respiratory failure, remains intubated/sedated, pulmonary infiltrates/pulmonary edema improving 2. Cavitating pneumonia, MSSA bacteremia, post septic shock no evidence of endocarditis by ALISA criteria 3. Diastolic LV dysfunction with class II NYHA congestive heart failure, volume overload, resolving 4. History of alcohol dependence 5. Acute renal insufficiency 6. Anemia PLAN: 1. Continue prn diuretics with close monitoring of renal function 2. Ventilator management as per the critical care team 3. Antibiotics as per ID service 4. As outlined above in reference to terminal weaning Chang Blackwell M.D.
[2017-09-17 06:44] LABS: ALBUMIN 1.8 g/dl (3.4-5.0); ANION GAP 13 (8-16); CALCIUM 8.1 mg/dL (8.5-10.1); CO2 22 mmol/L (21-32); GLUCOSE,RANDOM 104 mg/dL (74-106); MAGNESIUM 2.4 mg/dL (1.8-2.4)
[2017-09-17 06:46] LABS: ALK PHOS 145 U/L (45-117); BILIRUBIN,TOTAL 0.6 mg/dL (0.2-1.0); PHOSPHOROUS 6.5 mg/dL (2.5-4.9); SGOT/AST 27 U/L (15-37); SGPT/ALT 6 U/L (12-78)
--- NOTE | 2017-09-17 08:17 | PN ---
Progress Note (short form) - Note Progress Note: sedated on vent fi02 30% no pressors Vital Signs Period Temp Pulse Resp BP Sys/Jeff Pulse Ox Last 24 Hr 99.4 F-100 F 80-96 22-32 132-156/79-92 97-98 cor-rrr lungs decreased bs at bases abd soft, nt ext cxray unchanged CBC, BMP 09/17/17 05:00 09/17/17 05:00 Microbiology 09/12/17 09:20 Blood Culture - Preliminary Blood - Peripheral Venous NO GROWTH OBTAINED AFTER 96 HOURS, INCUBATION TO CONTINUE FOR 1 DAYS. 09/12/17 09:15 Blood Culture - Preliminary Blood - Peripheral Venous NO GROWTH OBTAINED AFTER 96 HOURS, INCUBATION TO CONTINUE FOR 1 DAYS. Current Medications Acetaminophen (Tylenol -) 650 mg NR Q6H PRN PRN Reason: FEVER OR PAIN Last Admin: 09/16/17 18:27 Dose: 650 mg Bacitracin (Bacitracin -) 1 applic TP DAILY [facility] Last Admin: 09/16/17 09:36 Dose: 1 applic Bacitracin/Polymyxin B Sulfate (Polysporin Ointment -) 1 applic TP DAILY [facility] Last Admin: 09/16/17 22:20 Dose: 1 applic Chlorhexidine Gluconate (Peridex -) 15 ml MM BID [facility] Last Admin: 09/16/17 22:30 Dose: 15 ml Ferrous Sulfate (Feosol -) 325 mg PO DAILY [facility] Last Admin: 09/16/17 09:36 Dose: 325 mg Folic Acid (Folic Acid -) 1 mg PO DAILY [facility] Last Admin: 09/16/17 09:36 Dose: 1 mg Heparin Sodium (Porcine) (Heparin -) 5,000 unit SQ TID [facility] Last Admin: 09/17/17 05:55 Dose: 5,000 unit Propofol (Diprivan -) 100 mls @ 5.898 mls/hr IVPUSH TITR [facility]; 10 MCG/KG/MIN PRN Reason: Protocol Last Admin: 09/17/17 06:48 Dose: 23.592 mls/hr Fluconazole (Diflucan 100 Mg/Ns Premixed Ivpb -) 50 mls @ 50 mls/hr IVPB DAILY [facility] Last Admin: 09/16/17 09:35 Dose: 50 mls/hr Cefazolin Sodium (Ancef 1gm Ivpb (Pre-Docked)) 50 mls @ 100 mls/hr IVPB Q8H-IV [facility] Last Admin: 09/17/17 01:01 Dose: 100 mls/hr Multivitamins/Minerals (Theragran-M) 1 each PO DAILY [facility] Last Admin: 09/16/17 09:36 Dose: 1 each Pantoprazole Sodium (Protonix Iv) 40 mg IVPUSH DAILY [facility] Last Admin: 09/16/17 09:36 Dose: 40 mg Sevelamer Carbonate (Renvela -) 800 mg PO TIDCM [facility] Last Admin: 09/16/17 17:10 Dose: 800 mg Thiamine HCl (Vitamin B1 -) 100 mg PO DAILY [facility] Last Admin: 09/16/17 09:36 Dose: 100 mg a/p MSSA sepsis ?nosocomial pneumonia ARF anemia- ALISA negative continue cefazolin ct scans ordered and pending
[2017-09-17] MEDS ORDERED: PT OWN MED DRAWER 7, Y5N ONE (09:17)
[2017-09-17] MEDS: CHLORHEXIDINE GLUCONATE 0.12% 15ML CUP MM SCH ×2 (10:09→21:29)
[2017-09-17] MEDS: FLUCONAZOLE 100 MG/NS 50 ML IVPB SCH (10:09)
[2017-09-17] MEDS: PANTOPRAZOLE SODIUM 40 MG VIAL IVPUSH SCH (10:09)
[2017-09-17] MEDS: THIAMINE HCL 100 MG TABLET (FP) PO SCH (10:10)
[2017-09-17] MEDS: FERROUS SO4 325 MG TABLET (FP) PO SCH (10:10)
[2017-09-17] MEDS: MULTIVITAMINS THER W-MINERALS COMBO TABLET (FP) PO SCH (10:10)
[2017-09-17] MEDS: FOLIC ACID 1 MG TABLET (FP) PO SCH (10:10)
[2017-09-17] MEDS: SEVELAMER CARBONATE 800 MG TAB (FP) PO SCH ×3 (10:12→17:50)
[2017-09-17] MEDS: BACITRACIN 15 GM TUBE TOPICAL OINTMENT TP SCH (10:20)
[2017-09-17] MEDS: BACITRACIN/POLYMYXIN B SULFATE 15 GM TUBE TP SCH (10:20)
--- NOTE | 2017-09-17 13:20 | PN ---
Teaching Attending Note Name of Resident: Anton Zamora ATTENDING PHYSICIAN STATEMENT I saw and evaluated the patient. I reviewed the resident's note and discussed the case with the resident. I agree with the resident's findings and plan as documented. SUBJECTIVE: Patient seen and examined in the ICU. Low grade temps persist. Remains on AC Mode of vent 30% FiO2. Awake and responsive and following commands. CT pending. Intake & Output 09/14/17 09/15/17 09/16/17 09/17/17 23:59 23:59 23:59 23:59 Intake Total 2426 2720 610 841 Output Total 2850 3000 1850 1000 Balance -424 -280 -1240 -159 Weight 206 lb 9.6 oz 204 lb 8 oz 204 lb 4 oz 203 lb 1 oz Last Vital Signs Temp Pulse Resp BP Pulse Ox 100 F H 96 H 25 H 134/84 98 09/17/17 10:00 09/17/17 12:00 09/17/17 12:00 09/17/17 12:00 09/16/17 20:27 Active Medications Acetaminophen (Tylenol -) 650 mg NR Q6H PRN PRN Reason: FEVER OR PAIN Last Admin: 09/16/17 18:27 Dose: 650 mg Bacitracin (Bacitracin -) 1 applic TP DAILY [facility] Last Admin: 09/17/17 10:20 Dose: 1 applic Bacitracin/Polymyxin B Sulfate (Polysporin Ointment -) 1 applic TP DAILY [facility] Last Admin: 09/17/17 10:20 Dose: 1 applic Chlorhexidine Gluconate (Peridex -) 15 ml MM BID [facility] Last Admin: 09/17/17 10:09 Dose: 15 ml Ferrous Sulfate (Feosol -) 325 mg PO DAILY [facility] Last Admin: 09/17/17 10:10 Dose: 325 mg Folic Acid (Folic Acid -) 1 mg PO DAILY [facility] Last Admin: 09/17/17 10:10 Dose: 1 mg Heparin Sodium (Porcine) (Heparin -) 5,000 unit SQ TID [facility] Last Admin: 09/17/17 05:55 Dose: 5,000 unit Propofol (Diprivan -) 100 mls @ 5.898 mls/hr IVPUSH TITR [facility]; 10 MCG/KG/MIN PRN Reason: Protocol Last Admin: 09/17/17 06:48 Dose: 23.592 mls/hr Fluconazole (Diflucan 100 Mg/Ns Premixed Ivpb -) 50 mls @ 50 mls/hr IVPB DAILY [facility] Last Admin: 09/17/17 10:09 Dose: 50 mls/hr Cefazolin Sodium (Ancef 1gm Ivpb (Pre-Docked)) 50 mls @ 100 mls/hr IVPB Q8H-IV [facility] Last Admin: 09/17/17 10:09 Dose: 100 mls/hr Multivitamins/Minerals (Theragran-M) 1 each PO DAILY [facility] Last Admin: 09/17/17 10:10 Dose: 1 each Pantoprazole Sodium (Protonix Iv) 40 mg IVPUSH DAILY [facility] Last Admin: 09/17/17 10:09 Dose: 40 mg Sevelamer Carbonate (Renvela -) 800 mg PO TIDCM [facility] Last Admin: 09/17/17 10:12 Dose: 800 mg Thiamine HCl (Vitamin B1 -) 100 mg PO DAILY [facility] Last Admin: 09/17/17 10:10 Dose: 100 mg Gen: Intubated and awake Heart: RRR Lung: bilateral coarse rhonchi Abd: soft, nontender Ext: + edema Laboratory Results - last 24 hr 09/13/17 09/14/17 09/16/17 06:20 08:00 16:30 WBC RBC Hgb Hct MCV MCH MCHC RDW Plt Count MPV Neutrophils % Lymphocytes % Monocytes % Eosinophils % Basophils % Sodium Potassium Chloride Carbon Dioxide Anion Gap BUN Creatinine Creat Clearance w eGFR Random Glucose Calcium Phosphorus Magnesium Total Bilirubin AST ALT Alkaline Phosphatase Total Protein Albumin Urine Color Urine Appearance Urine pH Ur Specific [place] Urine Protein Urine Glucose (UA) Urine Ketones Urine Blood Urine Nitrite Urine Bilirubin Urine Urobilinogen Ur Leukocyte Esterase Urine RBC Urine WBC Urine Bacteria Hyaline Casts Urine Mucus Ur Random Sodium 32 Ur Random Potassium 19.0 Ur Random Chloride 24 Urine Creatinine PROSPER Screen Positive H PROSPER Homogeneous Pattern TNP PROSPER Nucleolar Pattern 1:80 PROSPER Speckled Pattern TNP PROSPER Centromere Pattern TNP Double Strand DNA Ab 1 Glomerular Base Memb Ab 5 Blood Type O NEGATIVE Antibody Screen Negative Crossmatch See Detail 09/16/17 09/16/17 09/17/17 16:30 16:30 05:00 WBC 12.2 H RBC 2.67 L Hgb 8.0 L Hct 23.2 L MCV 87.1 MCH 29.9 MCHC 34.3 RDW 16.8 H Plt Count 493 H MPV 6.3 L Neutrophils % 79.9 Lymphocytes % 8.7 Monocytes % 7.2 Eosinophils % 3.7 Basophils % 0.5 Sodium Potassium Chloride Carbon Dioxide Anion Gap BUN Creatinine Creat Clearance w eGFR Random Glucose Calcium Phosphorus Magnesium Total Bilirubin AST ALT Alkaline Phosphatase Total Protein Albumin Urine Color Yellow Urine Appearance Slcloudy Urine pH 5.0 Ur Specific [place] 1.012 Urine Protein 2+ H Urine Glucose (UA) Negative Urine Ketones Negative Urine Blood 1+ H Urine Nitrite Negative Urine Bilirubin Negative Urine Urobilinogen Negative Ur Leukocyte Esterase Negative Urine RBC 7 Urine WBC 3 Urine Bacteria Rare Hyaline Casts 1 Urine Mucus Rare Ur Random Sodium Ur Random Potassium Ur Random Chloride Urine Creatinine 36.6 PROSPER Screen PROSPER Homogeneous Pattern PROSPER Nucleolar Pattern PROSPER Speckled Pattern PROSPER Centromere Pattern Double Strand DNA Ab Glomerular Base Memb Ab Blood Type Antibody Screen Crossmatch 09/17/17 05:00 WBC RBC Hgb Hct MCV MCH MCHC RDW Plt Count MPV Neutrophils % Lymphocytes % Monocytes % Eosinophils % Basophils % Sodium 141 Potassium 3.7 Chloride 106 Carbon Dioxide 22 Anion Gap 13 BUN 81 H Creatinine 3.0 H Creat Clearance w eGFR 20.98 Random Glucose 104 Calcium 8.1 L Phosphorus 6.5 H D Magnesium 2.4 Total Bilirubin 0.6 AST 27 ALT 6 L Alkaline Phosphatase 145 H Total Protein 7.0 Albumin 1.8 L Urine Color Urine Appearance Urine pH Ur Specific [place] Urine Protein Urine Glucose (UA) Urine Ketones Urine Blood Urine Nitrite Urine Bilirubin Urine Urobilinogen Ur Leukocyte Esterase Urine RBC Urine WBC Urine Bacteria Hyaline Casts Urine Mucus Ur Random Sodium Ur Random Potassium Ur Random Chloride Urine Creatinine PROSPER Screen PROSPER Homogeneous Pattern PROSPER Nucleolar Pattern PROSPER Speckled Pattern PROSPER Centromere Pattern Double Strand DNA Ab Glomerular Base Memb Ab Blood Type Antibody Screen Crossmatch ASSESSMENT AND PLAN: Acute Hypoxic Respiratory Failure / component of ARDS physiology likely Staph Pneumonia MSSA Bacteremia -> Endocarditis ruled out Septic Shock Alcohol Dependence ARF - CT imaging pending - SBTs attempts as tolerated - ABX per ID - O2 to keep SpO2 >90% - Sedation vacation - Enteral feeds - DVT/GI prophylaxis - Replete lytes - May need pigtail/chest tube Dr Griffin Critical care time spent in reviewing chart, evaluating patient and formulating plan 40 min
--- NOTE | 2017-09-17 14:29 | PN ---
Progress Note, Physician History of Present Illness: Pt seen and examined at bedside. He remains in the ICU. Pt remains intubated. - Current Medication List Current Medications: Active Medications Acetaminophen (Tylenol -) 650 mg NR Q6H PRN PRN Reason: FEVER OR PAIN Last Admin: 09/16/17 18:27 Dose: 650 mg Bacitracin (Bacitracin -) 1 applic TP DAILY [facility] Last Admin: 09/17/17 10:20 Dose: 1 applic Bacitracin/Polymyxin B Sulfate (Polysporin Ointment -) 1 applic TP DAILY [facility] Last Admin: 09/17/17 10:20 Dose: 1 applic Chlorhexidine Gluconate (Peridex -) 15 ml MM BID [facility] Last Admin: 09/17/17 10:09 Dose: 15 ml Ferrous Sulfate (Feosol -) 325 mg PO DAILY [facility] Last Admin: 09/17/17 10:10 Dose: 325 mg Folic Acid (Folic Acid -) 1 mg PO DAILY [facility] Last Admin: 09/17/17 10:10 Dose: 1 mg Heparin Sodium (Porcine) (Heparin -) 5,000 unit SQ TID [facility] Last Admin: 09/17/17 05:55 Dose: 5,000 unit Propofol (Diprivan -) 100 mls @ 5.898 mls/hr IVPUSH TITR [facility]; 10 MCG/KG/MIN PRN Reason: Protocol Last Admin: 09/17/17 06:48 Dose: 23.592 mls/hr Fluconazole (Diflucan 100 Mg/Ns Premixed Ivpb -) 50 mls @ 50 mls/hr IVPB DAILY [facility] Last Admin: 09/17/17 10:09 Dose: 50 mls/hr Cefazolin Sodium (Ancef 1gm Ivpb (Pre-Docked)) 50 mls @ 100 mls/hr IVPB Q8H-IV [facility] Last Admin: 09/17/17 10:09 Dose: 100 mls/hr Multivitamins/Minerals (Theragran-M) 1 each PO DAILY [facility] Last Admin: 09/17/17 10:10 Dose: 1 each Pantoprazole Sodium (Protonix Iv) 40 mg IVPUSH DAILY [facility] Last Admin: 09/17/17 10:09 Dose: 40 mg Sevelamer Carbonate (Renvela -) 800 mg PO TIDCM [facility] Last Admin: 10/31/17 10:12 Dose: 800 mg Thiamine HCl (Vitamin B1 -) 100 mg PO DAILY [facility] Last Admin: 09/17/17 10:10 Dose: 100 mg - Objective Vital Signs: Vital Signs Temperature 100.3 F H 09/17/17 13:27 Pulse Rate 101 H 09/17/17 13:27 Respiratory Rate 28 H 09/17/17 13:27 Blood Pressure 132/92 09/17/17 13:27 O2 Sat by Pulse Oximetry (%) 98 09/16/17 20:27 Constitutional: Yes: Calm Eyes: Yes: Conjunctiva Clear HENT: Yes: Atraumatic Neck: Yes: Supple Cardiovascular: Yes: S1, S2 Respiratory: Yes: CTA Bilaterally Gastrointestinal: Yes: Normal Bowel Sounds, Soft Genitourinary: Yes: [place] Present Musculoskeletal: Yes: Muscle Weakness Edema: Yes Edema: LUE: 1+, RUE: 1+, LLE: 1+, RLE: 1+ Neurological: Yes: Lethargy Labs: CBC, BMP 09/17/17 05:00 09/17/17 05:00 INR, PTT INR 0.96 (0.82-1.09) 09/01/17 09:05 - ....Imaging Cat Scan: Report Reviewed Problem List - Problems (1) Acute kidney injury Code(s): N17.9 - ACUTE KIDNEY FAILURE, UNSPECIFIED (2) Anemia Code(s): D64.9 - ANEMIA, UNSPECIFIED Qualifiers: Anemia type: unspecified type Qualified Code(s): D64.9 - Anemia, unspecified; D64.9 - Anemia, unspecified (3) Hyponatremia Code(s): E87.1 - HYPO-OSMOLALITY AND HYPONATREMIA (4) Respiratory failure with hypoxia Code(s): J96.91 - RESPIRATORY FAILURE, UNSPECIFIED WITH HYPOXIA Qualifiers: Chronicity: acute Qualified Code(s): J96.01 - Acute respiratory failure with hypoxia; J96.01 - Acute respiratory failure with hypoxia; J96.01 - Acute respiratory failure with hypoxia (5) Staphylococcus aureus bacteremia Code(s): R78.81 - BACTEREMIA (6) Withdrawal symptoms, alcohol Code(s): F10.239 - ALCOHOL DEPENDENCE WITH WITHDRAWAL, UNSPECIFIED Qualifiers : Complication of substance-induced condition: uncomplicated Qualified Code(s): F10.230 - Alcohol dependence with withdrawal, uncomplicated; F10.230 - Alcohol dependence with withdrawal, uncomplicated; F10.230 - Alcohol dependence with withdrawal, uncomplicated (7) Abuse, drug or alcohol Code(s): F19.10 - OTHER PSYCHOACTIVE SUBSTANCE ABUSE, UNCOMPLICATED Assessment/Plan Current Medications Generic Name Dose Route Start Last Admin Trade Name Freq PRN Reason Stop Dose Admin Acetaminophen 650 mg 09/07/17 05:53 09/16/17 18:27 Tylenol - NR 650 mg Q6H PRN Administration FEVER OR PAIN Bacitracin 1 applic 09/02/17 10:00 09/17/17 10:20 Bacitracin - TP 1 applic DAILY [facility] Administration Bacitracin/Polymyxin B Sulfate 1 applic 09/16/17 20:45 09/17/17 10:20 Polysporin Ointment - TP 1 applic DAILY [facility] Administration Chlorhexidine Gluconate 15 ml 09/08/17 12:30 09/17/17 10:09 Peridex - MM 15 ml BID [facility] Administration Ferrous Sulfate 325 mg 09/05/17 12:00 09/17/17 10:10 Feosol - PO 325 mg DAILY [facility] Administration Folic Acid 1 mg 09/02/17 10:00 09/17/17 10:10 Folic Acid - PO 1 mg DAILY [facility] Administration Heparin Sodium (Porcine) 5,000 unit 09/02/17 06:00 09/17/17 05:55 Heparin - SQ 5,000 unit TID [facility] Administration Propofol 100 mls @ 5.898 mls/hr 09/07/17 07:30 09/17/17 06:48 Diprivan - IVPUSH 23.592 mls/hr TITR [facility] Administration Protocol 10 MCG/KG/MIN Fluconazole 50 mls @ 50 mls/hr 09/13/17 10:00 09/17/17 10:09 Diflucan 100 Mg/Ns Premixed Ivpb - IVPB 50 mls/hr DAILY [facility] Administration Cefazolin Sodium 50 mls @ 100 mls/hr 09/16/17 10:00 09/17/17 10:09 Ancef 1gm Ivpb (Pre-Docked) IVPB 100 mls/hr Q8H-IV [facility] Administration Multivitamins/Minerals 1 each 09/02/17 10:00 09/17/17 10:10 Theragran-M PO 1 each DAILY [facility] Administration Pantoprazole Sodium 40 mg 09/09/17 18:45 09/17/17 10:09 Protonix Iv IVPUSH 40 mg DAILY [facility] Administration Sevelamer Carbonate 800 mg 09/12/17 17:30 09/17/17 10:12 Renvela - PO 800 mg TIDCM [facility] Administration Thiamine HCl 100 mg 09/02/17 10:00 09/17/17 10:10 Vitamin B1 - PO 100 mg DAILY [facility] Administration Impression 1. ALEXANDRA 2. fluid overload 3. hypoalbuminemia 4. respiratory failure requiring intubation 5. anemia 6. etoh abuse 7. fevers 8. hypokalemia Plan - creatinine is improved mildly today - potassium is improved - will continue to monitor renal function - reviewed ct scan - lasix prn - vent support - will follow Dr Peres
--- NOTE | 2017-09-17 14:58 | PN ---
Physical Exam: SUBJECTIVE: Patient seen and examined AT BEDSIDE. He is still sedated and intubated. still febrile despite antibiotics. OBJECTIVE: Vital Signs Period Temp Pulse Resp BP Sys/Jeff Pulse Ox Last 24 Hr 99.4 F-100.3 F 88-101 22-31 132-162/79-94 98-98 GENERAL: intubated , sedated HEAD: Normal with no signs of trauma. EYES: conjunctiva clear. ENT: mois mucous membranes. LUNGS: Intubated B/L coarse crackles, no accessory muscle use. HEART: S1, S2 without murmur, rub or gallop. ABDOMEN: Obese,soft, nontender, nondistended, normoactive bowel sounds, no guarding, no rebound tenderness, EXTREMITIES: 2+ pitting edema. NEUROLOGICAL: sedated SKIN: Warm, dry, no rashes or lesions noted Laboratory Results - last 24 hr 09/14/17 09/16/17 09/16/17 08:00 16:30 16:30 WBC RBC Hgb Hct MCV MCH MCHC RDW Plt Count MPV Neutrophils % Lymphocytes % Monocytes % Eosinophils % Basophils % Sodium Potassium Chloride Carbon Dioxide Anion Gap BUN Creatinine Creat Clearance w eGFR Random Glucose Calcium Phosphorus Magnesium Total Bilirubin AST ALT Alkaline Phosphatase Total Protein Albumin Urine Color Yellow Urine Appearance Slcloudy Urine pH 5.0 Ur Specific [place] 1.012 Urine Protein 2+ H Urine Glucose (UA) Negative Urine Ketones Negative Urine Blood 1+ H Urine Nitrite Negative Urine Bilirubin Negative Urine Urobilinogen Negative Ur Leukocyte Esterase Negative Urine RBC 7 Urine WBC 3 Urine Bacteria Rare Hyaline Casts 1 Urine Mucus Rare Ur Random Sodium 32 Ur Random Potassium 19.0 Ur Random Chloride 24 Urine Creatinine Stool Occult Blood Blood Type O NEGATIVE Antibody Screen Negative Crossmatch See Detail 09/16/17 09/17/17 09/17/17 16:30 05:00 05:00 WBC 12.2 H RBC 2.67 L Hgb 8.0 L Hct 23.2 L MCV 87.1 MCH 29.9 MCHC 34.3 RDW 16.8 H Plt Count 493 H MPV 6.3 L Neutrophils % 79.9 Lymphocytes % 8.7 Monocytes % 7.2 Eosinophils % 3.7 Basophils % 0.5 Sodium 141 Potassium 3.7 Chloride 106 Carbon Dioxide 22 Anion Gap 13 BUN 81 H Creatinine 3.0 H Creat Clearance w eGFR 20.98 Random Glucose 104 Calcium 8.1 L Phosphorus 6.5 H D Magnesium 2.4 Total Bilirubin 0.6 AST 27 ALT 6 L Alkaline Phosphatase 145 H Total Protein 7.0 Albumin 1.8 L Urine Color Urine Appearance Urine pH Ur Specific [place] Urine Protein Urine Glucose (UA) Urine Ketones Urine Blood Urine Nitrite Urine Bilirubin Urine Urobilinogen Ur Leukocyte Esterase Urine RBC Urine WBC Urine Bacteria Hyaline Casts Urine Mucus Ur Random Sodium Ur Random Potassium Ur Random Chloride Urine Creatinine 36.6 Stool Occult Blood Blood Type Antibody Screen Crossmatch 09/17/17 06:00 WBC RBC Hgb Hct MCV MCH MCHC RDW Plt Count MPV Neutrophils % Lymphocytes % Monocytes % Eosinophils % Basophils % Sodium Potassium Chloride Carbon Dioxide Anion Gap BUN Creatinine Creat Clearance w eGFR Random Glucose Calcium Phosphorus Magnesium Total Bilirubin AST ALT Alkaline Phosphatase Total Protein Albumin Urine Color Urine Appearance Urine pH Ur Specific [place] Urine Protein Urine Glucose (UA) Urine Ketones Urine Blood Urine Nitrite Urine Bilirubin Urine Urobilinogen Ur Leukocyte Esterase Urine RBC Urine WBC Urine Bacteria Hyaline Casts Urine Mucus Ur Random Sodium Ur Random Potassium Ur Random Chloride Urine Creatinine Stool Occult Blood Negative Blood Type Antibody Screen Crossmatch Active Medications Generic Name Dose Route Start Last Admin Trade Name Freq PRN Reason Stop Dose Admin Acetaminophen 650 mg 09/07/17 05:53 09/16/17 18:27 Tylenol - NR 650 mg Q6H PRN Administration FEVER OR PAIN Bacitracin 1 applic 09/02/17 10:00 09/17/17 10:20 Bacitracin - TP 1 applic DAILY [facility] Administration Bacitracin/Polymyxin B Sulfate 1 applic 09/16/17 20:45 09/17/17 10:20 Polysporin Ointment - TP 1 applic DAILY [facility] Administration Chlorhexidine Gluconate 15 ml 09/08/17 12:30 09/17/17 10:09 Peridex - MM 15 ml BID [facility] Administration Ferrous Sulfate 325 mg 09/05/17 12:00 09/17/17 10:10 Feosol - PO 325 mg DAILY [facility] Administration Folic Acid 1 mg 09/02/17 10:00 09/17/17 10:10 Folic Acid - PO 1 mg DAILY [facility] Administration Heparin Sodium (Porcine) 5,000 unit 09/02/17 06:00 09/17/17 05:55 Heparin - SQ 5,000 unit TID [facility] Administration Propofol 100 mls @ 5.898 mls/hr 09/07/17 07:30 09/17/17 06:48 Diprivan - IVPUSH 23.592 mls/hr TITR [facility] Administration Protocol 10 MCG/KG/MIN Fluconazole 50 mls @ 50 mls/hr 09/13/17 10:00 09/17/17 10:09 Diflucan 100 Mg/Ns Premixed Ivpb - IVPB 50 mls/hr DAILY [facility] Administration Cefazolin Sodium 50 mls @ 100 mls/hr 09/16/17 10:00 09/17/17 10:09 Ancef 1gm Ivpb (Pre-Docked) IVPB 100 mls/hr Q8H-IV [facility] Administration Multivitamins/Minerals 1 each 09/02/17 10:00 09/17/17 10:10 Theragran-M PO 1 each DAILY [facility] Administration Pantoprazole Sodium 40 mg 09/09/17 18:45 09/17/17 10:09 Protonix Iv IVPUSH 40 mg DAILY [facility] Administration Sevelamer Carbonate 800 mg 09/12/17 17:30 09/17/17 10:12 Renvela - PO 800 mg TIDCM [facility] Administration Thiamine HCl 100 mg 09/02/17 10:00 09/17/17 10:10 Vitamin B1 - PO 100 mg DAILY [facility] Administration ASSESSMENT/PLAN: # MSSA bactermia with possible Pneumonia #Respiratory failure #Worsening kidney function ALEXANDRA secondary to sepsis vs medication SE: consult nephrology plan * had a fever of 100.7, CRP still elevated. * F/U cultures (blood, sputum, urine) * Continue vanco/cefepim * cefepim has been decreased to 0.5 Q24 hour * patient must have occult source of infection * EGD ,shows no esophageal varices * bed side ALISA did show any vegetation * sputum culture shows yeast like organism * repeat blood culture * Diflucan 400 mg then 100mg daily * vanco troph yesterday 24.9 will hold on vanco for now * add cefazoline 1 g Q 8 hr * CT pelvic to R/O psoas collection or any osteomylitis Visit type - Emergency Visit Emergency Visit: Yes ED Registration Date: 08/31/17 Care time: The patient presented to the Emergency Department on the above date and was hospitalized for further evaluation of their emergent condition. - New Patient This patient is new to me today: No - Critical Care Critical Care patient: Yes Total Critical Care Time (in minutes): 40 Critical Care Statement: The care of this patient involved high complexity decision making to prevent further life threatening deterioration of the patient 's condition and/or to evaluate & treat vital organ system(s) failure or risk of failure.
[2017-09-17] MEDS ORDERED: PROPOFOL 100 ML ONE (15:55)
[2017-09-17 16:30] LABS: C-ANCA <1:20 titer (Neg:<1:20); MYELOPEROXIDASE ANTIBODY <9.0 U/mL (0.0-9.0); P-ANCA <1:20 titer (Neg:<1:20); PROTEINASE-3 ANTIBODY <3.5 U/mL (0.0-3.5)
[2017-09-17 17:11] LABS: GLUCOSE,PLEURAL FLUID 38.251; TOTAL PROTEIN,PLEURAL FLUID 4.687
--- NOTE | 2017-09-17 18:13 | PN ---
Teaching Attending Note Name of Resident: Lydia Salter ATTENDING PHYSICIAN STATEMENT I saw and evaluated the patient. I reviewed the resident's note and discussed the case with the resident. I agree with the resident's findings and plan as documented. SUBJECTIVE: Patient is awake on vent. He appears comfortable. OBJECTIVE: Vital Signs Period Temp Pulse Resp BP Sys/Jeff Pulse Ox Last 24 Hr 99.4 F-100.3 F 88-101 25-33 132-162/79-94 88-98 HEART: S1S2, RRR LUNGS: Scattered rhonchi ABDOMEN: Obese, soft, non-distended, normal BS EXTREMITIES: Trace edema Current Medications Generic Name Dose Route Start Last Admin Trade Name Freq PRN Reason Stop Dose Admin Acetaminophen 650 mg 09/07/17 05:53 09/16/17 18:27 Tylenol - NR 650 mg Q6H PRN Administration FEVER OR PAIN Bacitracin 1 applic 09/02/17 10:00 09/17/17 10:20 Bacitracin - TP 1 applic DAILY [facility] Administration Bacitracin/Polymyxin B Sulfate 1 applic 09/16/17 20:45 09/17/17 10:20 Polysporin Ointment - TP 1 applic DAILY [facility] Administration Chlorhexidine Gluconate 15 ml 09/08/17 12:30 09/17/17 10:09 Peridex - MM 15 ml BID [facility] Administration Ferrous Sulfate 325 mg 09/05/17 12:00 09/17/17 10:10 Feosol - PO 325 mg DAILY [facility] Administration Folic Acid 1 mg 09/02/17 10:00 09/17/17 10:10 Folic Acid - PO 1 mg DAILY [facility] Administration Heparin Sodium (Porcine) 5,000 unit 09/02/17 06:00 09/17/17 16:46 Heparin - SQ 5,000 unit TID [facility] Administration Propofol 100 mls @ 5.898 mls/hr 09/07/17 07:30 09/17/17 06:48 Diprivan - IVPUSH 23.592 mls/hr TITR [facility] Administration Protocol 10 MCG/KG/MIN Fluconazole 50 mls @ 50 mls/hr 09/13/17 10:00 09/17/17 10:09 Diflucan 100 Mg/Ns Premixed Ivpb - IVPB 50 mls/hr DAILY [facility] Administration Cefazolin Sodium 50 mls @ 100 mls/hr 09/16/17 10:00 09/17/17 17:05 Ancef 1gm Ivpb (Pre-Docked) IVPB 100 mls/hr Q8H-IV [facility] Administration Multivitamins/Minerals 1 each 09/02/17 10:00 09/17/17 10:10 Theragran-M PO 1 each DAILY [facility] Administration Pantoprazole Sodium 40 mg 09/09/17 18:45 09/17/17 10:09 Protonix Iv IVPUSH 40 mg DAILY [facility] Administration Sevelamer Carbonate 800 mg 09/12/17 17:30 09/17/17 17:50 Renvela - PO 800 mg TIDCM [facility] Administration Thiamine HCl 100 mg 09/02/17 10:00 09/17/17 10:10 Vitamin B1 - PO 100 mg DAILY [facility] Administration ASSESSMENT AND PLAN: This is a 66 year old man with a history of alcohol abuse, HTN who presented to the ER after being found on the floor. 1. Acute hypoxic respiratory failure - Remains on vent - Continue to wean as per critical care team 2. Sepsis secondary to cavitary healthcare-associated pneumonia, MSSA bacteremia - Continue Ancef, Vancomycin, Diflucan - Chest CT shows bilateral pleural effusions with lower lobe atelectasis, anterior RUL mass/consolidation/atelectasis new since 08/31 - CT L-spine shows no definite osteomyelitis, no psoas collection - Blood cultures from 09/08, 09/10, 09/11 all negative 3. Acute kidney injury with hyperphosphatemia - Creatinine stabilized - Continue Renvela 4. Anemia - Transfused 2 units PRBCs - Hemoglobin stable - Continue ferrous sulfate, folic acid 5. Continue alcohol dependence - Continue thiamine, folic acid, multivitamin 6. Hepatic transaminitis - Resolved - Likely secondary to alcohol - US shows hepatosplenomegaly and fatty infiltration of liver 7. Thrombocytopenia - Resolved - Secondary to alcohol, splenomegaly 8. HTN 9. Chronic right subdural hematoma 10. DVT prophylaxis - Continue heparin subq 11. Stress ulcer prophylaxis - Continue Protonix IV
--- NOTE | 2017-09-17 18:17 | PN ---
Physical Exam: SUBJECTIVE: Patient seen and examined in ICU. Remained vented on AC mode FiO2 30 %, awake with light sedation on propofol gtt. OBJECTIVE: Vital Signs Period Temp Pulse Resp BP Sys/Jeff Pulse Ox Last 24 Hr 99.4 F-100.3 F 88-101 25-33 132-162/79-94 88-98 Intake & Output 09/14/17 09/15/17 09/16/17 09/17/17 23:59 23:59 23:59 23:59 Intake Total 2426 2720 610 1391 Output Total 2850 3000 1850 1600 Balance -424 280 -5220 -209 Weight 93.712 kg 92.76 kg 92.646 kg 92.108 kg GENERAL: vented, awake, responsive to verbal commands ENT: ETT, NGT LUNGS: mechanical breathe sounds HEART: RRR, normal S1/S2, without murmur, rub, gallop. ABDOMEN: Soft, mildly distended EXTREMITIES: anasarca improved, UE 3+ edema, LE 1+ edema : hines, rectal tube Neuro: more awake today, increased movement of toes to verbal command CBC, BMP 09/17/17 05:00 09/17/17 05:00 Hepatic Panel Total Bilirubin 0.6 mg/dL (0.2-1.0) 09/17/17 05:00 Direct Bilirubin 1.8 mg/dL (0.0-0.2) H D 09/09/17 05:00 AST 27 U/L (15-37) 09/17/17 05:00 ALT 6 U/L (12-78) L 09/17/17 05:00 Alkaline Phosphatase 145 U/L (45-117) H 09/17/17 05:00 Albumin 1.8 g/dl (3.4-5.0) L 09/17/17 05:00 Ca - 8.1 Phos - 6.5 Mg - 2.4 Microbiology 09/12/17 09:20 Blood - Peripheral Venous Blood Culture - Final NO GROWTH AFTER 5 DAYS INCUBATION 09/12/17 09:15 Blood - Peripheral Venous Blood Culture - Final NO GROWTH AFTER 5 DAYS INCUBATION 09/10/17 10:00 Blood - Peripheral Venous Blood Culture - Final NO GROWTH AFTER 5 DAYS INCUBATION 09/10/17 10:00 Blood - Peripheral Venous Blood Culture - Final NO GROWTH AFTER 5 DAYS INCUBATION 09/08/17 05:45 Blood - Peripheral Venous Blood Culture - Final NO GROWTH AFTER 5 DAYS INCUBATION 09/08/17 05:45 Blood - Peripheral Venous Blood Culture - Final NO GROWTH AFTER 5 DAYS INCUBATION 09/10/17 09:35 Sputum - Endotrachea Suction/Ventilator Gram Stain - Final 09/10/17 09:35 Sputum - Endotrachea Suction/Ventilator Sputum Culture - Final Yeast Like Organism 09/08/17 18:07 Pleural Fluid Gram Stain - Final 09/08/17 18:07 Pleural Fluid Body Fluid Culture - Final NO GROWTH OF AEROBIC ORGANISMS AFTER 48 HOURS INCUBATION 09/08/17 18:07 Pleural Fluid Anaerobic Culture - Final NO ANAEROBES WERE ISOLATED Active Medications Acetaminophen (Tylenol -) 650 mg NR Q6H PRN PRN Reason: FEVER OR PAIN Last Admin: 09/16/17 18:27 Dose: 650 mg Bacitracin (Bacitracin -) 1 applic TP DAILY [facility] Last Admin: 09/17/17 10:20 Dose: 1 applic Bacitracin/Polymyxin B Sulfate (Polysporin Ointment -) 1 applic TP DAILY [facility] Last Admin: 09/17/17 10:20 Dose: 1 applic Chlorhexidine Gluconate (Peridex -) 15 ml MM BID [facility] Last Admin: 09/17/17 10:09 Dose: 15 ml Ferrous Sulfate (Feosol -) 325 mg PO DAILY [facility] Last Admin: 09/17/17 10:10 Dose: 325 mg Folic Acid (Folic Acid -) 1 mg PO DAILY [facility] Last Admin: 09/17/17 10:10 Dose: 1 mg Heparin Sodium (Porcine) (Heparin -) 5,000 unit SQ TID [facility] Last Admin: 09/17/17 16:46 Dose: 5,000 unit Propofol (Diprivan -) 100 mls @ 5.898 mls/hr IVPUSH TITR [facility]; 10 MCG/KG/MIN PRN Reason: Protocol Last Admin: 09/17/17 06:48 Dose: 23.592 mls/hr Fluconazole (Diflucan 100 Mg/Ns Premixed Ivpb -) 50 mls @ 50 mls/hr IVPB DAILY [facility] Last Admin: 09/17/17 10:09 Dose: 50 mls/hr Cefazolin Sodium (Ancef 1gm Ivpb (Pre-Docked)) 50 mls @ 100 mls/hr IVPB Q8H-IV [facility] Last Admin: 09/17/17 17:05 Dose: 100 mls/hr Multivitamins/Minerals (Theragran-M) 1 each PO DAILY [facility] Last Admin: 09/17/17 10:10 Dose: 1 each Pantoprazole Sodium (Protonix Iv) 40 mg IVPUSH DAILY [facility] Last Admin: 09/17/17 10:09 Dose: 40 mg Sevelamer Carbonate (Renvela -) 800 mg PO TIDCM [facility] Last Admin: 09/17/17 17:50 Dose: 800 mg Thiamine HCl (Vitamin B1 -) 100 mg PO DAILY [facility] Last Admin: 09/17/17 10:10 Dose: 100 mg ASSESSMENT/PLAN: 66yo man with PMH of EtOH abuse and HTN who is admitted (08/31) for acute hypoxic respiratory failure requiring mechanical ventilation (09/02) and sepsis 2/2 cavitary PNA and MSSA bacteremia. ALISA (09/13) r/o endocarditis. Patient continues to fevers. Serial blood cultures NGTD, although sputum culture growing yeast-like organism. #acute hypoxic respiratory failure -Vent management per ICU -Daily SBTs as tolerated -sedation holidays #sepsis 2/2 cavitary PNA, MSSA bacteremia -Abx per ID: Cefazolin (09/16), diflucan (09/12) and vanco (09/10) (renally dosed) -Chest CT (09/17) bilateral pleural effusions with lower lobe atelectasis, anterior RUL mass/consolidation/atelectasis new since 08/31 -CT L-spine (09/17) no definite osteomyelitis, no psoas collection -f/u serial blood cultures #ALEXANDRA -Nephrology consulted -c3/c4 complement level wnl; PROSPER positive -Strict I&Os, hines -Renal dose for meds #anemia s/p 2U PRBCs, FOBT neg -Trend H&H -Cont Ferrous Sulfate 325 mg PO DAILY [facility] -Transfuse hgb<7 #EtOH abuse -Monitor for signs of EtOH withdrawal -Ativan 2mg IV q2h PRN -MVI, thiamine 100mg PO qd, folic acid 1mg PO daily #FEN -Hold IVF -hyperphosphotemia noted, monitor lytesO -Enteral feeds #PPX -DVT - Hep SQ TID -GI - Pantoprazole 40mg IV daily #Dispo: continue ICU monitoring FULL code d/w Dr. Navya Salter MD PGY-1 Visit type - Emergency Visit Emergency Visit: No - New Patient This patient is new to me today: No - Critical Care Critical Care patient: Yes Total Critical Care Time (in minutes): 40 Critical Care Statement: The care of this patient involved high complexity decision making to prevent further life threatening deterioration of the patient 's condition and/or to evaluate & treat vital organ system(s) failure or risk of failure.
[2017-09-17 19:07] LABS: PLEURAL FLUID APPEARANCE TURBID; PLEURAL FLUID COLOR RED; PLEURAL FLUID SOURCE PLEURAL
[2017-09-17 22:28] LABS: PLEURAL FLUID LYMPHOCYTES 4 %; PLEURAL FLUID NEUTROPHIL 94 %
[2017-09-18] MEDS: CEFAZOLIN (PRE-DOCKED) 50 ML IVPB SCH ×3 (01:10→17:37)
[2017-09-18] MEDS: PROPOFOL 100 ML IVPUSH SCH ×4 (01:14→22:26)
[2017-09-18] MEDS: HEPARIN NA (PORCINE) 5,000 UNITS/ML 1ML VIAL SQ SCH ×3 (05:28→22:24)
[2017-09-18] MEDS ORDERED: METOPROLOL TARTRATE 5 MG/5 ML VIAL ONE (05:45)
[2017-09-18] MEDS ORDERED: AMIODARONE HCL 150 MG/3 ML VIAL ONE (05:49)
[2017-09-18] MEDS ORDERED: AMIODARONE HCL INJECTION 150 MG in DEXTROSE 5%-WATER - 97 ML IVPB ONE (05:58)
[2017-09-18] MEDS ORDERED: METOPROLOL TARTRATE 5 MG/5 ML VIAL IVPUSH ONE (05:58)
[2017-09-18 06:08] LABS: BASOPHIL 0.5 % (0-2.0); EOSINOPHIL 4.6 % (0-4.5); MCH 30.3 pg (25.7-33.7); MCHC 34.3 g/dl (32.0-35.9); MEAN CELL VOLUME 88.2 fl (80-96); MEAN PLT VOLUME 6.5 fl (7.5-11.1); NEUTROPHILS 78.1 % (42.8-82.8); PLATELET COUNT 404 K/MM3 (134-434); RDW 16.9 % (11.9-15.9); WHITE BLOOD COUNT 11.5 K/mm3 (4.0-10.0)
--- NOTE | 2017-09-18 06:16 | PN ---
Progress Note (short form) - Note Progress Note: Chief Compliant: Events noted, notes reviewed, remains intubated and sedated, post chest tube insertion for management of pleural effusion, developed atrial fibrillation this AM with rapid ventricular response, remains febrile, low grade History of Present Illness: Seen and examined in the ICU. Events noted, notes reviewed, remains intubated and sedated, post chest tube insertion for management of pleural effusion, developed atrial fibrillation this AM with rapid ventricular response, remains febrile, low grade Echocardiography dated 09/02/2017 revealed probable preserved LV function, but can't R/O regional wall motion abnormality Chest x-ray noted from this AM - Current Medication List Current Medications Acetaminophen (Tylenol -) 650 mg NR Q6H PRN PRN Reason: FEVER OR PAIN Last Admin: 09/16/17 18:27 Dose: 650 mg Bacitracin (Bacitracin -) 1 applic TP DAILY [facility] Last Admin: 09/17/17 10:20 Dose: 1 applic Bacitracin/Polymyxin B Sulfate (Polysporin Ointment -) 1 applic TP DAILY [facility] Last Admin: 09/17/17 10:20 Dose: 1 applic Chlorhexidine Gluconate (Peridex -) 15 ml MM BID [facility] Last Admin: 09/17/17 21:29 Dose: 15 ml Ferrous Sulfate (Feosol -) 325 mg PO DAILY [facility] Last Admin: 09/17/17 10:10 Dose: 325 mg Folic Acid (Folic Acid -) 1 mg PO DAILY [facility] Last Admin: 09/17/17 10:10 Dose: 1 mg Heparin Sodium (Porcine) (Heparin -) 5,000 unit SQ TID [facility] Last Admin: 09/18/17 05:28 Dose: 5,000 unit Propofol (Diprivan -) 100 mls @ 5.898 mls/hr IVPUSH TITR [facility]; 10 MCG/KG/MIN PRN Reason: Protocol Last Admin: 09/18/17 04:23 Dose: 23.592 mls/hr Fluconazole (Diflucan 100 Mg/Ns Premixed Ivpb -) 50 mls @ 50 mls/hr IVPB DAILY [facility] Last Admin: 09/17/17 10:09 Dose: 50 mls/hr Cefazolin Sodium (Ancef 1gm Ivpb (Pre-Docked)) 50 mls @ 100 mls/hr IVPB Q8H-IV [facility] Last Admin: 09/18/17 01:10 Dose: 100 mls/hr Amiodarone HCl 150 mg/ (Dextrose) 100 mls @ 618 mls/hr IVPB ONCE ONE PRN Reason: Protocol Stop: 09/18/17 06:07 Last Admin: 09/18/17 06:12 Dose: 618 mls/hr Metoprolol Tartrate (Lopressor Injection -) 5 mg IVPUSH ONCE ONE Stop: 09/18/17 05:59 Last Admin: 09/18/17 06:13 Dose: 5 mg Multivitamins/Minerals (Theragran-M) 1 each PO DAILY [facility] Last Admin: 09/17/17 10:10 Dose: 1 each Pantoprazole Sodium (Protonix Iv) 40 mg IVPUSH DAILY [facility] Last Admin: 09/17/17 10:09 Dose: 40 mg Sevelamer Carbonate (Renvela -) 800 mg PO TIDCM [facility] Last Admin: 09/17/17 17:50 Dose: 800 mg Thiamine HCl (Vitamin B1 -) 100 mg PO DAILY [facility] Last Admin: 09/17/17 10:10 Dose: 100 mg Review of systems: Unable to obtain - Objective Vital Signs: Last Vital Signs Temp Pulse Resp BP Pulse Ox 99 F 85 32 H 143/86 98 09/18/17 02:00 09/18/17 02:00 09/18/17 05:40 09/18/17 02:00 09/17/17 20:53 Intake & Output 09/15/17 09/16/17 09/17/17 09/18/17 23:59 23:59 23:59 23:59 Intake Total 2720 610 1987.4 Output Total 3000 1850 2450 Balance -280 -1240 -462.6 Weight 204 lb 8 oz 204 lb 4 oz 203 lb 1 oz Neck: Supple Negative JVD Cardiovascular: S1 S2 Irregularly Irregular No Murmurs Respiratory: Bilateral Scattered Rhonchi Gastrointestinal: Soft Benign Normal Bowel Sounds Ext: Edema Labs: CBC and BMP from this AM pending Assessment/Plan ASSESSMENT: 1. Paroxysmal atrial fibrillation [id number] score of 2, with rapid ventricular response 2. Acute hypoxic respiratory failure, remains intubated/sedated, pulmonary infiltrates/pulmonary edema improving 3. Cavitating pneumonia, MSSA bacteremia, post septic shock no evidence of endocarditis by ALISA criteria 4. 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 History of alcohol dependence 6. Acute renal insufficiency 6. Anemia PLAN: 1. Initiate A/C unless it is absolutely contraindicated with Heparin 2. Initiate Amiodarone 3. B-Blockers hemodynamics permitting 4. Continue prn diuretics with close monitoring of renal function 5. Ventilator management as per the critical care team 6. Antibiotics as per ID service Chang Blackwell M.D.
[2017-09-18] MEDS ORDERED: AMIODARONE HCL 150 MG/3 ML VIAL IVPUSH ONE (06:23)
[2017-09-18] MEDS ORDERED: AMIODARONE HCL INJECTION 450 MG in DEXTROSE 5%-WATER - 241 ML IVPB SCH ×2 (06:30→12:30)
[2017-09-18 06:32] LABS: ALBUMIN 1.6 g/dl (3.4-5.0); ANION GAP 11 (8-16); BILIRUBIN,TOTAL 0.6 mg/dL (0.2-1.0); CALCIUM 7.9 mg/dL (8.5-10.1); CO2 22 mmol/L (21-32); CREATININE 3.2 mg/dL (0.7-1.3); GLUCOSE,RANDOM 99 mg/dL (74-106); SGOT/AST 29 U/L (15-37); SGPT/ALT 6 U/L (12-78); TOT PROT 7.2 g/dl (6.4-8.2)
[2017-09-18 06:33] LABS: ALK PHOS 159 U/L (45-117)
--- NOTE | 2017-09-18 06:42 | PN ---
Physical Exam: SUBJECTIVE: Patient seen and examinedat bedside. he has a run of Afib with RVR this morning and he was put on Amiodarone drip. still febrile despite abx. still sedated and intubated. OBJECTIVE: Vital Signs Period Temp Pulse Resp BP Sys/Jeff Pulse Ox Last 24 Hr 99 F-100.3 F 85-158 25-33 126-162/57-94 88-98 GENERAL: intubated , sedated HEAD: Normal with no signs of trauma.no jvd EYES: conjunctiva clear. ENT: mois mucous membranes. LUNGS: Intubated B/L coarse crackles, no accessory muscle use. HEART:Irregularly irregular, S1, S2 without murmur, rub or gallop. ABDOMEN: Obese,soft, nontender, nondistended, normoactive bowel sounds, no guarding, no rebound tenderness, EXTREMITIES: 2+ pitting edema. NEUROLOGICAL: sedated SKIN: Warm, dry, no rashes or lesions noted Laboratory Results - last 24 hr 09/13/17 09/14/17 09/17/17 06:20 08:00 05:00 WBC RBC Hgb Hct MCV MCH MCHC RDW Plt Count MPV Neutrophils % Lymphocytes % Monocytes % Eosinophils % Basophils % Sodium 141 Potassium 3.7 Chloride 106 Carbon Dioxide 22 Anion Gap 13 BUN 81 H Creatinine 3.0 H Creat Clearance w eGFR 20.98 Random Glucose 104 Calcium 8.1 L Phosphorus 6.5 H D Magnesium 2.4 Total Bilirubin 0.6 AST 27 ALT 6 L Alkaline Phosphatase 145 H Total Protein 7.0 Albumin 1.8 L Fluid Other Cells Pleural Fluid Source Pleural Color Pleural Appearance Pleural WBC Pleural RBC Pleural Neutrophils Pleural Lymphocytes Pleural Monocytes Pleural Diff Comment Pleural Total Protein Pleural Albumin Pleural LDH Pleural Glucose Pleural Amylase Pleural Triglycerides Stool Occult Blood PROSPER Screen Positive H PROSPER Homogeneous Pattern TNP PROSPER Nucleolar Pattern 1:80 PROSPER Speckled Pattern TNP PROSPER Centromere Pattern TNP c-ANCA <1:20 Proteinase 3 (PR3) <3.5 p-ANCA <1:20 Atypical p-ANCA <1:20 Myeloperoxidase Ab <9.0 Double Strand DNA Ab 1 Glomerular Base Memb Ab 5 Blood Type O NEGATIVE Antibody Screen Negative Crossmatch See Detail 09/17/17 09/17/17 09/18/17 06:00 16:14 05:50 WBC 11.5 H RBC 2.56 L Hgb 7.7 L Hct 22.5 L MCV 88.2 MCH 30.3 MCHC 34.3 RDW 16.9 H Plt Count 404 MPV 6.5 L Neutrophils % 78.1 Lymphocytes % 9.4 Monocytes % 7.4 Eosinophils % 4.6 H Basophils % 0.5 Sodium Potassium Chloride Carbon Dioxide Anion Gap BUN Creatinine Creat Clearance w eGFR Random Glucose Calcium Phosphorus Magnesium Total Bilirubin AST ALT Alkaline Phosphatase Total Protein Albumin Fluid Other Cells 1 Pleural Fluid Source Pleural Pleural Color Red Pleural Appearance Turbid Pleural WBC 2,733 Pleural RBC 440,840 Pleural Neutrophils 94 Pleural Lymphocytes 4 Pleural Monocytes 1 Pleural Diff Comment Pleural Total Protein 4.687 Pleural Albumin 1 Pleural LDH 806 Pleural Glucose 38.251 Pleural Amylase 42.537 Pleural Triglycerides 213 Stool Occult Blood Negative PROSPER Screen PROSPER Homogeneous Pattern PROSPER Nucleolar Pattern PROSPER Speckled Pattern PROSPER Centromere Pattern c-ANCA Proteinase 3 (PR3) p-ANCA Atypical p-ANCA Myeloperoxidase Ab Double Strand DNA Ab Glomerular Base Memb Ab Blood Type Antibody Screen Crossmatch 09/18/17 05:50 WBC RBC Hgb Hct MCV MCH MCHC RDW Plt Count MPV Neutrophils % Lymphocytes % Monocytes % Eosinophils % Basophils % Sodium 140 Potassium 4.1 Chloride 107 Carbon Dioxide 22 Anion Gap 11 BUN 81 H Creatinine 3.2 H Creat Clearance w eGFR 19.47 Random Glucose 99 Calcium 7.9 L Phosphorus Magnesium Total Bilirubin 0.6 AST 29 ALT 6 L Alkaline Phosphatase 159 H Total Protein 7.2 Albumin 1.6 L Fluid Other Cells Pleural Fluid Source Pleural Color Pleural Appearance Pleural WBC Pleural RBC Pleural Neutrophils Pleural Lymphocytes Pleural Monocytes Pleural Diff Comment Pleural Total Protein Pleural Albumin Pleural LDH Pleural Glucose Pleural Amylase Pleural Triglycerides Stool Occult Blood PROSPER Screen PROSPER Homogeneous Pattern PROSPER Nucleolar Pattern PROSPER Speckled Pattern PROSPER Centromere Pattern c-ANCA Proteinase 3 (PR3) p-ANCA Atypical p-ANCA Myeloperoxidase Ab Double Strand DNA Ab Glomerular Base Memb Ab Blood Type Antibody Screen Crossmatch Active Medications Generic Name Dose Route Start Last Admin Trade Name Freq PRN Reason Stop Dose Admin Acetaminophen 650 mg 09/07/17 05:53 09/16/17 18:27 Tylenol - NR 650 mg Q6H PRN Administration FEVER OR PAIN Bacitracin 1 applic 09/02/17 10:00 09/17/17 10:20 Bacitracin - TP 1 applic DAILY [facility] Administration Bacitracin/Polymyxin B Sulfate 1 applic 09/16/17 20:45 09/17/17 10:20 Polysporin Ointment - TP 1 applic DAILY [facility] Administration Chlorhexidine Gluconate 15 ml 09/08/17 12:30 09/17/17 21:29 Peridex - MM 15 ml BID [facility] Administration Ferrous Sulfate 325 mg 09/05/17 12:00 09/17/17 10:10 Feosol - PO 325 mg DAILY [facility] Administration Folic Acid 1 mg 09/02/17 10:00 09/17/17 10:10 Folic Acid - PO 1 mg DAILY [facility] Administration Heparin Sodium (Porcine) 5,000 unit 09/02/17 06:00 09/18/17 05:28 Heparin - SQ 5,000 unit TID [facility] Administration Propofol 100 mls @ 5.898 mls/hr 09/07/17 07:30 09/18/17 04:23 Diprivan - IVPUSH 23.592 mls/hr TITR [facility] Administration Protocol 10 MCG/KG/MIN Fluconazole 50 mls @ 50 mls/hr 09/13/17 10:00 09/17/17 10:09 Diflucan 100 Mg/Ns Premixed Ivpb - IVPB 50 mls/hr DAILY [facility] Administration Cefazolin Sodium 50 mls @ 100 mls/hr 09/16/17 10:00 09/18/17 01:10 Ancef 1gm Ivpb (Pre-Docked) IVPB 100 mls/hr Q8H-IV [facility] Administration Amiodarone HCl 450 mg/ 250 mls @ 16.66 mls/hr 09/18/17 06:30 Dextrose IVPB TITR [facility] Protocol 0.5 MG/MIN Metoprolol Tartrate 25 mg 09/18/17 06:30 Lopressor - NGT BID [facility] Multivitamins/Minerals 1 each 09/02/17 10:00 09/17/17 10:10 Theragran-M PO 1 each DAILY [facility] Administration Pantoprazole Sodium 40 mg 09/09/17 18:45 09/17/17 10:09 Protonix Iv IVPUSH 40 mg DAILY [facility] Administration Sevelamer Carbonate 800 mg 09/12/17 17:30 09/17/17 17:50 Renvela - PO 800 mg TIDCM [facility] Administration Thiamine HCl 100 mg 09/02/17 10:00 09/17/17 10:10 Vitamin B1 - PO 100 mg DAILY [facility] Administration CBC, BMP 09/18/17 05:50 09/18/17 05:50 Microbiology Microbiology 09/12/17 09:20 Blood Culture - Final Blood - Peripheral Venous NO GROWTH AFTER 5 DAYS INCUBATION 09/12/17 09:15 Blood Culture - Final Blood - Peripheral Venous NO GROWTH AFTER 5 DAYS INCUBATION ASSESSMENT/PLAN: # MSSA bactermia with possible Pneumonia #Respiratory failure #Worsening kidney function ALEXANDRA secondary to sepsis vs medication SE: nephrology on board plan * had a fever of 100.3, CRP still elevated. * F/U cultures (blood, sputum, urine * cefepim has been decreased to 0.5 Q24 hour * patient must have occult source of infection * EGD ,shows no esophageal varices * bed side ALISA did show any vegetation * sputum culture shows yeast like organism * repeat blood culture * DC Diflucan * continue cefazolin 1 g Q 8 hr * CT pelvic to R/O psoas collection or any osteomylitis Visit type - Emergency Visit Emergency Visit: Yes ED Registration Date: 08/31/17 Care time: The patient presented to the Emergency Department on the above date and was hospitalized for further evaluation of their emergent condition. - New Patient This patient is new to me today: No - Critical Care Critical Care patient: Yes Total Critical Care Time (in minutes): 40 Critical Care Statement: The care of this patient involved high complexity decision making to prevent further life threatening deterioration of the patient 's condition and/or to evaluate & treat vital organ system(s) failure or risk of failure. - Discharge Referral Referred to [facility] No
--- NOTE | 2017-09-18 07:39 | PN ---
Physical Exam: 24H Events: yesterday - CT chest b/l lower lobe effusions, R thoracentesis and CT placed drained serosanginous, exudative (high LDH) fluid. AM - rapid Afib (150's), given 5mg Lopressor IVP, 150mg amiodarone IVP, and started on amiodarone gtt SUBJECTIVE: Patient seen and examined in ICU. Remains vented, sedated on propofol gtt. OBJECTIVE: Vital Signs Period Temp Pulse Resp BP Sys/Jeff Pulse Ox Last 24 Hr 99 F-100.3 F 85-158 25-33 126-162/57-94 88-98 Intake & Output 09/15/17 09/16/17 09/17/17 09/18/17 23:59 23:59 23:59 23:59 Intake Total 2720 610 1987.4 1006.4 Output Total 3000 1850 2450 870 Balance -280 -1240 -462.6 136.4 Weight 92.76 kg 92.646 kg 92.108 kg 91.9 kg GENERAL: vented, sedated ENT: ETT, NGT LUNGS: mechanical breathe sounds HEART: RRR, normal S1/S2, without murmur, rub, gallop. ABDOMEN: Soft, mildly distended EXTREMITIES: anasarca improved, UE 3+ edema, LE 1+ edema : hines, rectal tube CBC, BMP 09/18/17 05:50 09/18/17 05:50 Hepatic Panel Total Bilirubin 0.6 mg/dL (0.2-1.0) 09/18/17 05:50 Direct Bilirubin 1.8 mg/dL (0.0-0.2) H D 09/09/17 05:00 AST 29 U/L (15-37) 09/18/17 05:50 ALT 6 U/L (12-78) L 09/18/17 05:50 Alkaline Phosphatase 159 U/L (45-117) H 09/18/17 05:50 Albumin 1.6 g/dl (3.4-5.0) L 09/18/17 05:50 Ca - 7.9 (corrected 9.8) Pleural Fluid 09/17/17 16:14 Fluid Other Cells 1 Pleural Fluid Source Pleural Pleural Color Red Pleural Appearance Turbid Pleural WBC 2,733 Pleural RBC 440,840 Pleural Neutrophils 94 Pleural Lymphocytes 4 Pleural Monocytes 1 Pleural Eosinophils Pleural Macrophages Pleural Mesothelial Pleural Diff Comment Pleural Total Protein 4.687 Pleural Albumin 1 Pleural LDH 806 Pleural Glucose 38.251 Pleural Amylase 42.537 Pleural Triglycerides 213 Microbiology 09/17/17 16:14 Pleural Fluid AFB Smear Concentration - Preliminary 09/17/17 16:14 Pleural Fluid Mycobacterial Culture - Preliminary 09/12/17 09:20 Blood - Peripheral Venous Blood Culture - Final NO GROWTH AFTER 5 DAYS INCUBATION 09/12/17 09:15 Blood - Peripheral Venous Blood Culture - Final NO GROWTH AFTER 5 DAYS INCUBATION 09/10/17 10:00 Blood - Peripheral Venous Blood Culture - Final NO GROWTH AFTER 5 DAYS INCUBATION 09/10/17 10:00 Blood - Peripheral Venous Blood Culture - Final NO GROWTH AFTER 5 DAYS INCUBATION 09/08/17 05:45 Blood - Peripheral Venous Blood Culture - Final NO GROWTH AFTER 5 DAYS INCUBATION 09/08/17 05:45 Blood - Peripheral Venous Blood Culture - Final NO GROWTH AFTER 5 DAYS INCUBATION Imaging: Chest CT (09/17) bilateral pleural effusions with lower lobe atelectasis, anterior RUL mass/consolidation/atelectasis new since 08/31 -CT L-spine (09/17) no definite osteomyelitis, no psoas collection Active Medications Acetaminophen (Tylenol -) 650 mg NR Q6H PRN PRN Reason: FEVER OR PAIN Last Admin: 09/16/17 18:27 Dose: 650 mg Bacitracin (Bacitracin -) 1 applic TP DAILY [facility] Last Admin: 09/17/17 10:20 Dose: 1 applic Bacitracin/Polymyxin B Sulfate (Polysporin Ointment -) 1 applic TP DAILY [facility] Last Admin: 09/17/17 10:20 Dose: 1 applic Chlorhexidine Gluconate (Peridex -) 15 ml MM BID [facility] Last Admin: 09/17/17 21:29 Dose: 15 ml Ferrous Sulfate (Feosol -) 325 mg PO DAILY [facility] Last Admin: 09/17/17 10:10 Dose: 325 mg Folic Acid (Folic Acid -) 1 mg PO DAILY [facility] Last Admin: 09/17/17 10:10 Dose: 1 mg Heparin Sodium (Porcine) (Heparin -) 5,000 unit SQ TID [facility] Last Admin: 09/18/17 05:28 Dose: 5,000 unit Propofol (Diprivan -) 100 mls @ 5.898 mls/hr IVPUSH TITR [facility]; 10 MCG/KG/MIN PRN Reason: Protocol Last Admin: 09/18/17 04:23 Dose: 23.592 mls/hr Fluconazole (Diflucan 100 Mg/Ns Premixed Ivpb -) 50 mls @ 50 mls/hr IVPB DAILY [facility] Last Admin: 09/17/17 10:09 Dose: 50 mls/hr Cefazolin Sodium (Ancef 1gm Ivpb (Pre-Docked)) 50 mls @ 100 mls/hr IVPB Q8H-IV [facility] Last Admin: 09/18/17 01:10 Dose: 100 mls/hr Amiodarone HCl 450 mg/ (Dextrose) 250 mls @ 16.66 mls/hr IVPB TITR [facility]; 0.5 MG/ MIN PRN Reason: Protocol Last Admin: 09/18/17 06:49 Dose: 16.66 mls/hr Metoprolol Tartrate (Lopressor -) 25 mg NGT BID [facility] Multivitamins/Minerals (Theragran-M) 1 each PO DAILY [facility] Last Admin: 09/17/17 10:10 Dose: 1 each Pantoprazole Sodium (Protonix Iv) 40 mg IVPUSH DAILY [facility] Last Admin: 09/17/17 10:09 Dose: 40 mg Sevelamer Carbonate (Renvela -) 800 mg PO TIDCM [facility] Last Admin: 09/17/17 17:50 Dose: 800 mg Thiamine HCl (Vitamin B1 -) 100 mg PO DAILY [facility] Last Admin: 09/17/17 10:10 Dose: 100 mg ASSESSMENT/PLAN: 66yo man with PMH of EtOH abuse and HTN who is admitted (08/31) for acute hypoxic respiratory failure requiring mechanical ventilation (09/02) and sepsis 2/2 cavitary PNA and MSSA bacteremia. ALISA (09/13) r/o endocarditis. Patient continues to have low grade fevers. Serial blood cultures collected 09/08, 09/10 , 09/12 NGTD, sputum cultures grew yeast-like organism and patient treated with days of Diflucan. #acute hypoxic respiratory failure -Vent management per ICU -Daily SBTs as tolerated -sedation holidays #sepsis 2/2 cavitary PNA, MSSA bacteremia -Abx per ID: Continue Cefazolin 1gm q8h (started 09/16), d/c diflucan today (-09/18) -f/u pleural fluid culture (09/17) #Afib - on amiodarone gtt, CHADVASC score of 2 indicating AC -Cardiology following -Consider start AC when hemodynamically stable, no further procedures planned #chronic diastolic heart failure (NYHA class II) - ECHO 09/02/2017 rprobable preserved LV function, but can't R/O regional wall motion abnormality -start metoprolol 25mg NGT BID #ALEXANDRA -Nephrology consulted -c3/c4 complement level wnl; PROSPER positive -Strict I&Os, hines -Renal dose for meds #anemia s/p 2U PRBCs, FOBT neg, pleural fluid bloody -Cont Ferrous Sulfate 325 mg PO DAILY [facility] -Cont Sevelamer Carbonate (Renvela) 800 mg PO TID -Transfuse hgb<7 #EtOH abuse -Monitor for signs of EtOH withdrawal -Ativan 2mg IV q2h PRN -MVI, thiamine 100mg PO qd, folic acid 1mg PO daily #FEN -Hold IVF -lytes winl -Enteral feeds #PPX -DVT - Hep SQ TID -GI - Pantoprazole 40mg IV daily #Dispo: continue ICU monitoring FULL code d/w Dr. Zakia Salter MD PGY-1 Visit type - Emergency Visit Emergency Visit: No - New Patient This patient is new to me today: No - Critical Care Critical Care patient: Yes Total Critical Care Time (in minutes): 45 Critical Care Statement: The care of this patient involved high complexity decision making to prevent further life threatening deterioration of the patient 's condition and/or to evaluate & treat vital organ system(s) failure or risk of failure.
--- NOTE | 2017-09-18 07:41 | PN ---
Teaching Attending Note Name of Resident: Dominick Kasper ATTENDING PHYSICIAN STATEMENT I saw and evaluated the patient. I reviewed the resident's note and discussed the case with the resident. I agree with the resident's findings and plan as documented. SUBJECTIVE:Remains intubated New onset of atrial fibrillation hemodynamically unstable Cefazolin for MSSA in blood OBJECTIVE: ASSESSMENT AND PLAN: Selected Entries 09/18/17 09/18/17 02:00 05:00 Temperature 99 F Pulse Rate 136 H Respiratory 25 H Rate Blood Pressure 154/85 Microbiology Laboratory Tests 09/13/17 09/17/17 09/18/17 18:30 16:14 05:50 WBC 11.5 H Hgb 7.7 L Hct 22.5 L Plt Count 404 BUN Creat Clearance w eGFR AST ALT Alkaline Phosphatase Pleural Fluid Source Pleural Pleural Color Red Pleural Appearance Turbid Pleural WBC 2,733 Pleural RBC 440,840 Pleural Neutrophils 94 Pleural Total Protein 4.687 Pleural LDH 806 Pleural Glucose 38.251 Complement C3 142 Complement C4 14 09/18/17 05:50 WBC Hgb Hct Plt Count BUN 81 H Creat Clearance w eGFR 19.47 AST 29 ALT 6 L Alkaline Phosphatase 159 H Pleural Fluid Source Pleural Color Pleural Appearance Pleural WBC Pleural RBC Pleural Neutrophils Pleural Total Protein Pleural LDH Pleural Glucose Complement C3 Complement C4 Assessment MSSA bacteremia Respiratory failure Bilateral effusions exudative bloody Acute renal failure Atrial fibrillation Plan Continue Cefazolin as ordered Pleural culture sent but most probably sterile ? need for chest tube raised Critical care time spent 35 minutes Esau Cifuentes MD Problem List - Problems (1) Pneumonia Code(s): J18.9 - PNEUMONIA, UNSPECIFIED ORGANISM Qualifiers: Pneumonia type: aspiration pneumonia (2) Respiratory failure with hypoxia Code(s): J96.91 - RESPIRATORY FAILURE, UNSPECIFIED WITH HYPOXIA Qualifiers: Chronicity: acute Qualified Code(s): J96.01 - Acute respiratory failure with hypoxia; J96.01 - Acute respiratory failure with hypoxia; J96.01 - Acute respiratory failure with hypoxia (3) Staphylococcus aureus bacteremia Code(s): R78.81 - BACTEREMIA (5) Endocarditis due to Staphylococcus Code(s): I33.0 - ACUTE AND SUBACUTE INFECTIVE ENDOCARDITIS B95.8 - UNSP STAPHYLOCOCCUS THE CAUSE OF DISEASES CLASSD ELSWHR
[2017-09-18] MEDS ORDERED: PROPOFOL 100 ML ONE ×3 (07:51→13:43)
[2017-09-18] MEDS: SEVELAMER CARBONATE 800 MG TAB (FP) PO SCH ×3 (08:00→17:37)
[2017-09-18] MEDS: METOPROLOL TARTRATE 25 MG TABLET (FP) NGT SCH ×3 (08:06→22:24)
[2017-09-18] MEDS: CHLORHEXIDINE GLUCONATE 0.12% 15ML CUP MM SCH ×2 (09:33→22:24)
[2017-09-18] MEDS: PANTOPRAZOLE SODIUM 40 MG VIAL IVPUSH SCH (09:33)
[2017-09-18] MEDS: FOLIC ACID 1 MG TABLET (FP) PO SCH (09:35)
[2017-09-18] MEDS: THIAMINE HCL 100 MG TABLET (FP) PO SCH (09:35)
[2017-09-18] MEDS: MULTIVITAMINS THER W-MINERALS COMBO TABLET (FP) PO SCH (09:35)
[2017-09-18] MEDS: FERROUS SO4 325 MG TABLET (FP) PO SCH (09:35)
[2017-09-18] MEDS: BACITRACIN/POLYMYXIN B SULFATE 15 GM TUBE TP SCH (10:37)
[2017-09-18] MEDS: BACITRACIN 15 GM TUBE TOPICAL OINTMENT TP SCH (10:37)
--- NOTE | 2017-09-18 12:34 | EKG ---
Test Reason : Blood Pressure : / mmHG Vent. Rate : 150 BPM Atrial Rate : 357 BPM P-R Int : 000 ms QRS Dur : 070 ms QT Int : 284 ms P-R-T Axes : 000 013 010 degrees QTc Int : 448 ms ATRIAL FIBRILLATION WITH RAPID VENTRICULAR RESPONSE ABNORMAL ECG WHEN COMPARED WITH ECG OF 10-SEP-2017 08:12, NO SIGNIFICANT CHANGE WAS FOUND Confirmed by LAISHA SALAS MD ([id number]) on 09/18/2017 12:34:18 PM Referred By: Confirmed By:LAISHA SALAS MD
--- NOTE | 2017-09-18 13:12 | PN ---
Progress Note, Physician History of Present Illness: Pt seen and examined at bedside. He remain in the ICU. Pt remains intubated. - Current Medication List Current Medications: Active Medications Acetaminophen (Tylenol -) 650 mg NR Q6H PRN PRN Reason: FEVER OR PAIN Last Admin: 09/16/17 18:27 Dose: 650 mg Bacitracin (Bacitracin -) 1 applic TP DAILY [facility] Last Admin: 09/18/17 10:37 Dose: 1 applic Bacitracin/Polymyxin B Sulfate (Polysporin Ointment -) 1 applic TP DAILY [facility] Last Admin: 09/18/17 10:37 Dose: 1 applic Chlorhexidine Gluconate (Peridex -) 15 ml MM BID [facility] Last Admin: 09/18/17 09:33 Dose: 15 ml Ferrous Sulfate (Feosol -) 325 mg PO DAILY [facility] Last Admin: 09/18/17 09:35 Dose: 325 mg Folic Acid (Folic Acid -) 1 mg PO DAILY [facility] Last Admin: 09/18/17 09:35 Dose: 1 mg Heparin Sodium (Porcine) (Heparin -) 5,000 unit SQ TID [facility] Last Admin: 09/18/17 05:28 Dose: 5,000 unit Propofol (Diprivan -) 100 mls @ 5.898 mls/hr IVPUSH TITR [facility]; 10 MCG/KG/MIN PRN Reason: Protocol Last Admin: 09/18/17 08:30 Dose: 23.592 mls/hr Cefazolin Sodium (Ancef 1gm Ivpb (Pre-Docked)) 50 mls @ 100 mls/hr IVPB Q8H-IV [facility] Last Admin: 09/18/17 09:35 Dose: 100 mls/hr Amiodarone HCl 450 mg/ (Dextrose) 250 mls @ 16.66 mls/hr IVPB TITR [facility]; 0.5 MG/ MIN PRN Reason: Protocol Stop: 09/19/17 06:29 Metoprolol Tartrate (Lopressor -) 25 mg NGT BID [facility] Last Admin: 09/18/17 09:36 Dose: 25 mg Multivitamins/Minerals (Theragran-M) 1 each PO DAILY [facility] Last Admin: 09/18/17 09:35 Dose: 1 each Pantoprazole Sodium (Protonix Iv) 40 mg IVPUSH DAILY [facility] Last Admin: 09/18/17 09:33 Dose: 40 mg Sevelamer Carbonate (Renvela -) 800 mg PO TIDCM [facility] Last Admin: 09/18/17 12:22 Dose: 800 mg Thiamine HCl (Vitamin B1 -) 100 mg PO DAILY [facility] Last Admin: 09/18/17 09:35 Dose: 100 mg - Objective Vital Signs: Vital Signs Temperature 99.6 F 09/18/17 10:00 Pulse Rate 77 09/18/17 12:00 Respiratory Rate 26 H 09/18/17 12:00 Blood Pressure 129/78 09/18/17 12:00 O2 Sat by Pulse Oximetry (%) 98 09/17/17 20:53 Constitutional: Yes: Calm Eyes: Yes: Conjunctiva Clear Cardiovascular: Yes: S1, S2 Respiratory: Yes: Mechanically Ventilated Gastrointestinal: Yes: Soft Genitourinary: Yes: Freeman Present Musculoskeletal: Yes: Muscle Weakness Edema: Yes Edema: LLE: 1+, RLE: 1+ Neurological: Yes: Lethargy Labs: CBC, BMP 09/18/17 05:50 09/18/17 05:50 INR, PTT INR 0.96 (0.82-1.09) 09/01/17 09:05 Problem List - Problems (1) Acute kidney injury Code(s): N17.9 - ACUTE KIDNEY FAILURE, UNSPECIFIED (2) Anemia Code(s): D64.9 - ANEMIA, UNSPECIFIED Qualifiers: Anemia type: unspecified type Qualified Code(s): D64.9 - Anemia, unspecified; D64.9 - Anemia, unspecified (3) Hyponatremia Code(s): E87.1 - HYPO-OSMOLALITY AND HYPONATREMIA (4) Respiratory failure with hypoxia Code(s): J96.91 - RESPIRATORY FAILURE, UNSPECIFIED WITH HYPOXIA Qualifiers: Chronicity: acute Qualified Code(s): J96.01 - Acute respiratory failure with hypoxia; J96.01 - Acute respiratory failure with hypoxia; J96.01 - Acute respiratory failure with hypoxia (5) Staphylococcus aureus bacteremia Code(s): R78.81 - BACTEREMIA (6) Withdrawal symptoms, alcohol Code(s): F10.239 - ALCOHOL DEPENDENCE WITH WITHDRAWAL, UNSPECIFIED Qualifiers : Complication of substance-induced condition: uncomplicated Qualified Code(s): F10.230 - Alcohol dependence with withdrawal, uncomplicated; F10.230 - Alcohol dependence with withdrawal, uncomplicated; F10.230 - Alcohol dependence with withdrawal, uncomplicated (7) Abuse, drug or alcohol Code(s): F19.10 - OTHER PSYCHOACTIVE SUBSTANCE ABUSE, UNCOMPLICATED Assessment/Plan Current Medications Generic Name Dose Route Start Last Admin Trade Name Freq PRN Reason Stop Dose Admin Acetaminophen 650 mg 09/07/17 05:53 09/16/17 18:27 Tylenol - NR 650 mg Q6H PRN Administration FEVER OR PAIN Bacitracin 1 applic 09/02/17 10:00 09/18/17 10:37 Bacitracin - TP 1 applic DAILY [facility] Administration Bacitracin/Polymyxin B Sulfate 1 applic 09/16/17 20:45 09/18/17 10:37 Polysporin Ointment - TP 1 applic DAILY [facility] Administration Chlorhexidine Gluconate 15 ml 09/08/17 12:30 09/18/17 09:33 Peridex - MM 15 ml BID [facility] Administration Ferrous Sulfate 325 mg 09/05/17 12:00 09/18/17 09:35 Feosol - PO 325 mg DAILY [facility] Administration Folic Acid 1 mg 09/02/17 10:00 09/18/17 09:35 Folic Acid - PO 1 mg DAILY [facility] Administration Heparin Sodium (Porcine) 5,000 unit 09/02/17 06:00 09/18/17 05:28 Heparin - SQ 5,000 unit TID [facility] Administration Propofol 100 mls @ 5.898 mls/hr 09/07/17 07:30 09/18/17 08:30 Diprivan - IVPUSH 23.592 mls/hr TITR [facility] Administration Protocol 10 MCG/KG/MIN Cefazolin Sodium 50 mls @ 100 mls/hr 09/16/17 10:00 09/18/17 09:35 Ancef 1gm Ivpb (Pre-Docked) IVPB 100 mls/hr Q8H-IV [facility] Administration Amiodarone HCl 450 mg/ 250 mls @ 16.66 mls/hr 09/18/17 12:30 Dextrose IVPB 09/19/17 06:29 TITR [facility] Protocol 0.5 MG/MIN Metoprolol Tartrate 25 mg 09/18/17 06:30 09/18/17 09:36 Lopressor - NGT 25 mg BID [facility] Administration Multivitamins/Minerals 1 each 09/02/17 10:00 09/18/17 09:35 Theragran-M PO 1 each DAILY [facility] Administration Pantoprazole Sodium 40 mg 09/09/17 18:45 09/18/17 09:33 Protonix Iv IVPUSH 40 mg DAILY [facility] Administration Sevelamer Carbonate 800 mg 09/12/17 17:30 09/18/17 12:22 Renvela - PO 800 mg TIDCM [facility] Administration Thiamine HCl 100 mg 09/02/17 10:00 09/18/17 09:35 Vitamin B1 - PO 100 mg DAILY [facility] Administration Impression 1. ALEXANDRA 2. fluid overload 3. hypoalbuminemia 4. respiratory failure requiring intubation 5. anemia 6. etoh abuse 7. fevers 8. hypokalemia Plan - cont to monitor renal function - will check spep - chest tube care - lasix prn - vent support - will follow Dr Peres
--- NOTE | 2017-09-18 15:31 | PN ---
Physical Exam: SUBJECTIVE: Patient seen and examined. daughter called to tell that we can give the information to her friend angeline, Daughter will come tomorrow or on saturday to disuss about his father condition and t tube. Yesterday patient have afib. he is on amio and metoprolol. OBJECTIVE: Vital Signs Period Temp Pulse Resp BP Sys/Jeff Pulse Ox Last 24 Hr 99 F-99.6 F 77-158 25-33 105-154/57-93 97-98 GENERAL: vented, mildly sedated, responsive to verbal commands ENT: moist mucous membranes, ETT, NGT LUNGS: b/l air entry present. HEART: RRR, normal S1/S2, without murmur, rub, gallop. ABDOMEN: Soft, mildly distended, normoactive bowel sounds : hines, rectal tube Laboratory Results - last 24 hr 09/13/17 09/14/17 09/17/17 06:20 08:00 16:14 WBC RBC Hgb Hct MCV MCH MCHC RDW Plt Count MPV Neutrophils % Lymphocytes % Monocytes % Eosinophils % Basophils % Sodium Potassium Chloride Carbon Dioxide Anion Gap BUN Creatinine Creat Clearance w eGFR Random Glucose Calcium Total Bilirubin AST ALT Alkaline Phosphatase Total Protein Albumin Fluid Other Cells 1 Pleural Fluid Source Pleural Pleural Color Red Pleural Appearance Turbid Pleural WBC 2,733 Pleural RBC 440,840 Pleural Neutrophils 94 Pleural Lymphocytes 4 Pleural Monocytes 1 Pleural Diff Comment Pleural Total Protein 4.687 Pleural Albumin 1 Pleural LDH 806 Pleural Glucose 38.251 Pleural Amylase 42.537 Pleural Triglycerides 213 PROSPER Screen Positive H PROSPER Homogeneous Pattern TNP PROSPER Nucleolar Pattern 1:80 PROSPER Speckled Pattern TNP PROSPER Centromere Pattern TNP c-ANCA <1:20 Proteinase 3 (PR3) <3.5 p-ANCA <1:20 Atypical p-ANCA <1:20 Myeloperoxidase Ab <9.0 Double Strand DNA Ab 1 Glomerular Base Memb Ab 5 Blood Type O NEGATIVE Antibody Screen Negative Crossmatch See Detail 09/18/17 09/18/17 05:50 05:50 WBC 11.5 H RBC 2.56 L Hgb 7.7 L Hct 22.5 L MCV 88.2 MCH 30.3 MCHC 34.3 RDW 16.9 H Plt Count 404 MPV 6.5 L Neutrophils % 78.1 Lymphocytes % 9.4 Monocytes % 7.4 Eosinophils % 4.6 H Basophils % 0.5 Sodium 140 Potassium 4.1 Chloride 107 Carbon Dioxide 22 Anion Gap 11 BUN 81 H Creatinine 3.2 H Creat Clearance w eGFR 19.47 Random Glucose 99 Calcium 7.9 L Total Bilirubin 0.6 AST 29 ALT 6 L Alkaline Phosphatase 159 H Total Protein 7.2 Albumin 1.6 L Fluid Other Cells Pleural Fluid Source Pleural Color Pleural Appearance Pleural WBC Pleural RBC Pleural Neutrophils Pleural Lymphocytes Pleural Monocytes Pleural Diff Comment Pleural Total Protein Pleural Albumin Pleural LDH Pleural Glucose Pleural Amylase Pleural Triglycerides PROSPER Screen PROSPER Homogeneous Pattern PROSPER Nucleolar Pattern PROSPER Speckled Pattern PROSPER Centromere Pattern c-ANCA Proteinase 3 (PR3) p-ANCA Atypical p-ANCA Myeloperoxidase Ab Double Strand DNA Ab Glomerular Base Memb Ab Blood Type Antibody Screen Crossmatch Active Medications Generic Name Dose Route Start Last Admin Trade Name Freq PRN Reason Stop Dose Admin Acetaminophen 650 mg 09/07/17 05:53 09/16/17 18:27 Tylenol - NR 650 mg Q6H PRN Administration FEVER OR PAIN Bacitracin 1 applic 09/02/17 10:00 09/18/17 10:37 Bacitracin - TP 1 applic DAILY [facility] Administration Bacitracin/Polymyxin B Sulfate 1 applic 09/16/17 20:45 09/18/17 10:37 Polysporin Ointment - TP 1 applic DAILY [facility] Administration Chlorhexidine Gluconate 15 ml 09/08/17 12:30 09/18/17 09:33 Peridex - MM 15 ml BID [facility] Administration Ferrous Sulfate 325 mg 09/05/17 12:00 09/18/17 09:35 Feosol - PO 325 mg DAILY [facility] Administration Folic Acid 1 mg 09/02/17 10:00 09/18/17 09:35 Folic Acid - PO 1 mg DAILY [facility] Administration Heparin Sodium (Porcine) 5,000 unit 09/02/17 06:00 09/18/17 13:45 Heparin - SQ 5,000 unit TID [facility] Administration Propofol 100 mls @ 5.898 mls/hr 09/07/17 07:30 09/18/17 08:30 Diprivan - IVPUSH 23.592 mls/hr TITR [facility] Administration Protocol 10 MCG/KG/MIN Cefazolin Sodium 50 mls @ 100 mls/hr 09/16/17 10:00 09/18/17 09:35 Ancef 1gm Ivpb (Pre-Docked) IVPB 100 mls/hr Q8H-IV [facility] Administration Amiodarone HCl 450 mg/ 250 mls @ 16.66 mls/hr 09/18/17 12:30 09/18/17 12:30 Dextrose IVPB 09/19/17 06:29 16.66 mls/hr TITR [facility] Administration Protocol 0.5 MG/MIN Metoprolol Tartrate 25 mg 09/18/17 06:30 09/18/17 09:36 Lopressor - NGT 25 mg BID [facility] Administration Multivitamins/Minerals 1 each 09/02/17 10:00 09/18/17 09:35 Theragran-M PO 1 each DAILY [facility] Administration Pantoprazole Sodium 40 mg 09/09/17 18:45 09/18/17 09:33 Protonix Iv IVPUSH 40 mg DAILY [facility] Administration Sevelamer Carbonate 800 mg 09/12/17 17:30 09/18/17 12:22 Renvela - PO 800 mg TIDCM [facility] Administration Thiamine HCl 100 mg 09/02/17 10:00 09/18/17 09:35 Vitamin B1 - PO 100 mg DAILY [facility] Administration ASSESSMENT/PLAN: #acute hypoxic respiratory failure -on ventilator support. - chest tube in situ, drains about 70ml haemorrhagic fluid. - will give weaning trial tomorrow. #sepsis 2/2 cavitary PNA, MSSA bacteremia -Abx per ID: Continue Cefazolin 1gm q8h (started 09/16), d/c diflucan today (-09/18) -f/u pleural fluid culture (09/17) - cytology exudative. #Afib - on amiodarone gtt, CHADVASC score of 2 -Cardiology following -start AC when hemodynamically stable #chronic diastolic heart failure (NYHA class II) - ECHO 09/02/2017 rprobable preserved LV function, but can't R/O regional wall motion abnormality -start metoprolol 25mg NGT BID #ALEXANDRA -Nephrology on case -Strict I&Os, hines #anemia s/p 2U PRBCs, FOBT neg, pleural fluid bloody -Cont Ferrous Sulfate 325 mg PO DAILY [facility] -Cont Sevelamer Carbonate (Renvela) 800 mg PO TID -Transfuse hgb<7 #EtOH abuse -Monitor for signs of EtOH withdrawal -Ativan 2mg IV q2h PRN -MVI, thiamine 100mg PO qd, folic acid 1mg PO daily #FEN -Hold IVF -lytes winl -Enteral feeds #PPX -DVT - Hep SQ TID -GI - Pantoprazole 40mg IV daily #Dispo: continue ICU monitoring FULL code Visit type - Emergency Visit Emergency Visit: Yes ED Registration Date: 08/31/17 Care time: The patient presented to the Emergency Department on the above date and was hospitalized for further evaluation of their emergent condition. - New Patient This patient is new to me today: No - Critical Care Critical Care patient: Yes Total Critical Care Time (in minutes): 45 Critical Care Statement: The care of this patient involved high complexity decision making to prevent further life threatening deterioration of the patient 's condition and/or to evaluate & treat vital organ system(s) failure or risk of failure.
--- NOTE | 2017-09-18 16:00 | PN ---
Teaching Attending Note Name of Resident: Anton Zamora ATTENDING PHYSICIAN STATEMENT I saw and evaluated the patient. I reviewed the resident's note and discussed the case with the resident. I agree with the resident's findings and plan as documented. SUBJECTIVE: Pt seen and examined in the ICU. Remains intubated, sedated. Started on amiodarone gtt overnight. OBJECTIVE: Last Vital Signs Temp Pulse Resp BP Pulse Ox 99.4 F 83 30 H 132/80 98 09/18/17 13:41 09/18/17 13:41 09/18/17 14:30 09/18/17 13:41 09/17/17 20:53 Intake & Output 09/15/17 09/16/17 09/17/17 09/18/17 23:59 23:59 23:59 23:59 Intake Total 2720 610 1987.4 1006.4 Output Total 3000 1850 2450 1620 Balance -280 -1240 -462.6 -613.6 Weight 204 lb 8 oz 204 lb 4 oz 203 lb 1 oz 202 lb 9.677 oz Gen: intubated, sedated Heart: RRR Lung: scattered rhonchi Abd: soft, obese, nontender Ext: + edema Chest tube: minimal drainage CBC, BMP 09/18/17 05:50 09/18/17 05:50 Active Medications Acetaminophen (Tylenol -) 650 mg NR Q6H PRN PRN Reason: FEVER OR PAIN Last Admin: 09/16/17 18:27 Dose: 650 mg Bacitracin (Bacitracin -) 1 applic TP DAILY [facility] Last Admin: 09/18/17 10:37 Dose: 1 applic Bacitracin/Polymyxin B Sulfate (Polysporin Ointment -) 1 applic TP DAILY [facility] Last Admin: 09/18/17 10:37 Dose: 1 applic Chlorhexidine Gluconate (Peridex -) 15 ml MM BID [facility] Last Admin: 09/18/17 09:33 Dose: 15 ml Ferrous Sulfate (Feosol -) 325 mg PO DAILY [facility] Last Admin: 09/18/17 09:35 Dose: 325 mg Folic Acid (Folic Acid -) 1 mg PO DAILY [facility] Last Admin: 09/18/17 09:35 Dose: 1 mg Heparin Sodium (Porcine) (Heparin -) 5,000 unit SQ TID [facility] Last Admin: 09/18/17 13:45 Dose: 5,000 unit Propofol (Diprivan -) 100 mls @ 5.898 mls/hr IVPUSH TITR [facility]; 10 MCG/KG/MIN PRN Reason: Protocol Last Admin: 09/18/17 08:30 Dose: 23.592 mls/hr Cefazolin Sodium (Ancef 1gm Ivpb (Pre-Docked)) 50 mls @ 100 mls/hr IVPB Q8H-IV [facility] Last Admin: 09/18/17 09:35 Dose: 100 mls/hr Amiodarone HCl 450 mg/ (Dextrose) 250 mls @ 16.66 mls/hr IVPB TITR [facility]; 0.5 MG/ MIN PRN Reason: Protocol Stop: 09/19/17 06:29 Last Admin: 09/18/17 12:30 Dose: 16.66 mls/hr Metoprolol Tartrate (Lopressor -) 25 mg NGT BID [facility] Last Admin: 09/18/17 09:36 Dose: 25 mg Multivitamins/Minerals (Theragran-M) 1 each PO DAILY [facility] Last Admin: 09/18/17 09:35 Dose: 1 each Pantoprazole Sodium (Protonix Iv) 40 mg IVPUSH DAILY [facility] Last Admin: 09/18/17 09:33 Dose: 40 mg Sevelamer Carbonate (Renvela -) 800 mg PO TIDCM [facility] Last Admin: 09/18/17 12:22 Dose: 800 mg Thiamine HCl (Vitamin B1 -) 100 mg PO DAILY [facility] Last Admin: 09/18/17 09:35 Dose: 100 mg ASSESSMENT AND PLAN: Acute Hypoxic Respiratory Failure Pneumonia Loculated Pleural Effusion s/p Pigtail catheter placement Anemia Acute Kidney Injury Paroxysmal Atrial fibrillation Alcohol Abuse - continue antibiotics - consider intrapleural tPA if minimal drainage - rate control - lighten sedation to assess mental status - spontaneous breathing trials when mental status improves - enteral feeds - DVT/GI prophylaxis - will likely need tracheostomy for prolonged intubation and failure to wean - continue ICU monitoring critical care time spent in reviewing chart, evaluating patient and formulating plan 35 min
--- NOTE | 2017-09-18 16:43 | PN ---
Teaching Attending Note Name of Resident: Lydia Salter ATTENDING PHYSICIAN STATEMENT I saw and evaluated the patient. I reviewed the resident's note and discussed the case with the resident. I agree with the resident's findings and plan as documented. SUBJECTIVE: resting comfortable OBJECTIVE: Last Vital Signs Temp Pulse Resp BP Pulse Ox 99.4 F 83 30 H 132/80 98 09/18/17 13:41 09/18/17 13:41 09/18/17 14:30 09/18/17 13:41 09/17/17 20:53 Intake & Output 09/15/17 09/16/17 09/17/17 09/18/17 23:59 23:59 23:59 23:59 Intake Total 2720 610 1987.4 1006.4 Output Total 3000 1850 2450 1620 Balance -280 -1240 -462.6 -613.6 Weight 204 lb 8 oz 204 lb 4 oz 203 lb 1 oz 202 lb 9.677 oz General resting comfortable. responds to verbal stimuli, follow some simple commands CV S1 S2 RRR no murmur/rub/gallop Lungs course breath sounds diffusely abdomen soft NT/ND Extremities trace pitting edema ASSESSMENT AND PLAN: 66 yo M with PMH alcohol abuse, HTN who presented to the ER after being found on the floor. 1. Acute hypoxic respiratory failure- likely due to cavitary PNA. unweanable at this time. continues to fail spontaneous breathing trials due to tachypnea. may need to consider trach at this time given repeated weaning trials. crit care on board. 2. Sepsis secondary to cavitary healthcare-associated pneumonia, MSSA bacteremia - afebrile. now off 4 pressors. currently on Cefazolin. BCx now clear. ALISA negative for endocarditis. s/p chest tube placement on 09/17 for worsening pulmonary effusion and suggestive of exudative process. was treated for 7 days for fungal infection in the sputum. ID on board. 3. New onset afib- developed afib overnight. now on amio ggt. echo on this admission done and showing preserved EF without signs of WMA. high [id number] indicating anticoagulation. will need to confirm no other procedures indicated at this time and will start heparin ggt. 4. Acute kidney injury with hyperphosphatemia- Cr now stable. no indication for BELLOWS TESTER at this time. nephrology on board. 5. Anemia- s/p 2 units PRBC this admission. on iron supplementations. likely some due to traumatic placement of chest tube yesterday. will monitor closely. no indication for txn at this time. if develops significant sangenous discharge into chest tube will txn. 6. Hepatic transaminitis- stable. will need to monitor closely as now on amio. US shows hepatosplenomegaly and fatty infiltration of liver 7. Thrombocytopenia- Secondary to alcohol, splenomegaly. now stable 8. HTN- initially hypotensive. now off pressors. cont medicaitons 9. 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 DVT prophylaxis- heparin subq 12. Stress ulcer prophylaxis- Protonix IV The care of this patient involved high complexity decision making to prevent further life threatening deterioration of the patient's condition and/or to evaluate & treat vital organ system(s) failure or risk of failure. 50 mins
[2017-09-18] MEDS ORDERED: PT OWN MED DRAWER 7, Y5N ONE (22:16)
[2017-09-19] MEDS: CEFAZOLIN (PRE-DOCKED) 50 ML IVPB SCH ×3 (01:31→17:56)
[2017-09-19] MEDS: PROPOFOL 100 ML IVPUSH SCH ×3 (01:32→09:43)
[2017-09-19] MEDS: HEPARIN NA (PORCINE) 5,000 UNITS/ML 1ML VIAL SQ SCH ×2 (05:23→14:54)
[2017-09-19] MEDS ORDERED: HEMOQUE CONTROL SOLUTION ONE (06:05)
[2017-09-19 07:06] LABS: BASOPHIL 0.3 % (0-2.0); MCH 29.3 pg (25.7-33.7); MCHC 32.9 g/dl (32.0-35.9); MEAN CELL VOLUME 88.8 fl (80-96); MEAN PLT VOLUME 6.7 fl (7.5-11.1); NEUTROPHILS 80.4 % (42.8-82.8); RDW 16.8 % (11.9-15.9); WHITE BLOOD COUNT 15.4 K/mm3 (4.0-10.0)
[2017-09-19 07:50] LABS: ALBUMIN 1.6 g/dl (3.4-5.0); ANION GAP 13 (8-16); BILIRUBIN,TOTAL 0.6 mg/dL (0.2-1.0); CALCIUM 8.2 mg/dL (8.5-10.1); CO2 20 mmol/L (21-32); CREATININE 3.4 mg/dL (0.7-1.3); GLUCOSE,RANDOM 104 mg/dL (74-106); PHOSPHOROUS 6.3 mg/dL (2.5-4.9); SGOT/AST 43 U/L (15-37); SGPT/ALT 6 U/L (12-78); TOT PROT 7.4 g/dl (6.4-8.2)
[2017-09-19 07:51] LABS: ALK PHOS 208 U/L (45-117)
--- NOTE | 2017-09-19 08:08 | PN ---
Progress Note, Physician Chief Complaint: ID Remains intubated Cefazolin continue MSSA bacteremia Last positive blood culture 09/06 ! - Current Medication List Current Medications: Active Medications Acetaminophen (Tylenol -) 650 mg NR Q6H PRN PRN Reason: FEVER OR PAIN Last Admin: 09/16/17 18:27 Dose: 650 mg Bacitracin (Bacitracin -) 1 applic TP DAILY [facility] Last Admin: 09/18/17 10:37 Dose: 1 applic Bacitracin/Polymyxin B Sulfate (Polysporin Ointment -) 1 applic TP DAILY [facility] Last Admin: 09/18/17 10:37 Dose: 1 applic Chlorhexidine Gluconate (Peridex -) 15 ml MM BID [facility] Last Admin: 09/18/17 22:24 Dose: 15 ml Ferrous Sulfate (Feosol -) 325 mg PO DAILY [facility] Last Admin: 09/18/17 09:35 Dose: 325 mg Folic Acid (Folic Acid -) 1 mg PO DAILY [facility] Last Admin: 09/18/17 09:35 Dose: 1 mg Heparin Sodium (Porcine) (Heparin -) 5,000 unit SQ TID [facility] Last Admin: 09/19/17 05:23 Dose: 5,000 unit Propofol (Diprivan -) 100 mls @ 5.898 mls/hr IVPUSH TITR [facility]; 10 MCG/KG/MIN PRN Reason: Protocol Last Admin: 09/19/17 05:23 Dose: 26.541 mls/hr Cefazolin Sodium (Ancef 1gm Ivpb (Pre-Docked)) 50 mls @ 100 mls/hr IVPB Q8H-IV [facility] Last Admin: 09/19/17 01:31 Dose: 100 mls/hr Metoprolol Tartrate (Lopressor -) 25 mg NGT BID [facility] Last Admin: 09/18/17 22:24 Dose: 25 mg Multivitamins/Minerals (Theragran-M) 1 each PO DAILY [facility] Last Admin: 09/18/17 09:35 Dose: 1 each Pantoprazole Sodium (Protonix Iv) 40 mg IVPUSH DAILY [facility] Last Admin: 09/18/17 09:33 Dose: 40 mg Sevelamer Carbonate (Renvela -) 800 mg PO TIDCM [facility] Last Admin: 09/18/17 17:37 Dose: 800 mg Thiamine HCl (Vitamin B1 -) 100 mg PO DAILY [facility] Last Admin: 09/18/17 09:35 Dose: 100 mg - Objective Vital Signs: Vital Signs Temperature 100.4 F H 09/19/17 02:00 Pulse Rate 91 H 09/19/17 04:00 Respiratory Rate 34 H 09/19/17 07:43 Blood Pressure 156/91 09/19/17 04:00 O2 Sat by Pulse Oximetry (%) 99 09/18/17 22:00 Constitutional: Yes: Other (Intubated) HENT: Yes: WNL, Atraumatic Neck: Yes: WNL, Supple Cardiovascular: Yes: Regular Rate and Rhythm, S1, S2. No: Murmur Respiratory: Yes: WNL, Regular, CTA Bilaterally Gastrointestinal: Yes: Soft. No: Tenderness Extremities: No: Cold, Cool, Cyanosis Integumentary: Yes: Other (Pustular dermatitis RLE ( while on antibiotics)) Labs: CBC, BMP 09/19/17 05:28 INR, PTT INR 0.96 (0.82-1.09) 09/01/17 09:05 Problem List - Problems (1) Pneumonia Code(s): J18.9 - PNEUMONIA, UNSPECIFIED ORGANISM Qualifiers: Pneumonia type: aspiration pneumonia (2) Respiratory failure with hypoxia Code(s): J96.91 - RESPIRATORY FAILURE, UNSPECIFIED WITH HYPOXIA Qualifiers: Chronicity: acute Qualified Code(s): J96.01 - Acute respiratory failure with hypoxia; J96.01 - Acute respiratory failure with hypoxia; J96.01 - Acute respiratory failure with hypoxia (3) Staphylococcus aureus bacteremia Code(s): R78.81 - BACTEREMIA (5) Endocarditis due to Staphylococcus Code(s): I33.0 - ACUTE AND SUBACUTE INFECTIVE ENDOCARDITIS B95.8 - UNSP STAPHYLOCOCCUS THE CAUSE OF DISEASES [facility]SD [facility] Assessment/Plan Microbiology 09/17/17 16:14 Pleural Fluid Gram Stain - Final 09/12/17 09:20 Blood - Peripheral Venous Blood Culture - Final NO GROWTH AFTER 5 DAYS INCUBATION 09/12/17 09:15 Blood - Peripheral Venous Blood Culture - Final NO GROWTH AFTER 5 DAYS INCUBATION 09/10/17 10:00 Blood - Peripheral Venous Blood Culture - Final NO GROWTH AFTER 5 DAYS INCUBATION 09/17/17 16:14 Pleural Fluid MAGI Preparation - Preliminary 09/17/17 16:14 Pleural Fluid Fungal Culture - Preliminary 09/17/17 16:14 Pleural Fluid AFB Smear Concentration - Preliminary 09/17/17 16:14 Pleural Fluid Mycobacterial Culture - Preliminary Laboratory Tests 09/18/17 09/19/17 05:50 05:28 WBC 15.4 H D RBC 2.59 L Hct 23.0 L Plt Count Pending BUN 81 H Creatinine 3.2 H Creat Clearance w eGFR 19.47 AST 29 Alkaline Phosphatase 159 H Assessment Respiratory failure Loculated effusions ? cause of fever and leukocytosis MSSA bacteremia Cavitary PNA Acute renal failure Pustular dermatitis unilateral on the lower leg This could be embolic lesions from ? endocarditis ( ALISA ) vs Shingles Plan Discussed with pulmonary re need for VAT Contact isolation Blood cutlure Wound c/s Add Zovirax for ? HVZ reduce dose for renal failure Thoracic consult Esau EMERY
[2017-09-19] MEDS ORDERED: PT OWN MED DRAWER 7, Y5N ONE ×2 (08:46→22:02)
[2017-09-19 08:57] LABS: PLATELET COUNT 383 K/MM3 (134-434); PLATELET ESTIMATE ADEQUATE (NORMAL)
[2017-09-19 08:58] LABS: PLATELET COMMENT2 NO CLOTTING DETECTED
[2017-09-19] MEDS: SEVELAMER CARBONATE 800 MG TAB (FP) PO SCH ×3 (09:23→16:33)
[2017-09-19] MEDS: BACITRACIN 15 GM TUBE TOPICAL OINTMENT TP SCH (09:28)
[2017-09-19] MEDS: PANTOPRAZOLE SODIUM 40 MG VIAL IVPUSH SCH (09:28)
[2017-09-19] MEDS: FERROUS SO4 325 MG TABLET (FP) PO SCH (09:29)
[2017-09-19] MEDS: FOLIC ACID 1 MG TABLET (FP) PO SCH (09:30)
[2017-09-19] MEDS: CHLORHEXIDINE GLUCONATE 0.12% 15ML CUP MM SCH ×2 (09:30→21:58)
[2017-09-19] MEDS: METOPROLOL TARTRATE 25 MG TABLET (FP) NGT SCH ×2 (09:30→21:58)
[2017-09-19] MEDS: THIAMINE HCL 100 MG TABLET (FP) PO SCH (09:44)
[2017-09-19] MEDS: MULTIVITAMINS THER W-MINERALS COMBO TABLET (FP) PO SCH (09:44)
[2017-09-19] MEDS: BACITRACIN/POLYMYXIN B SULFATE 15 GM TUBE TP SCH (09:44)
[2017-09-19] MEDS: ACYCLOVIR INJECTION 900 MG in DEXTROSE 5%-WATER - 250 ML IVPB SCH ×2 (10:28→22:05)
[2017-09-19] MEDS ORDERED: SODIUM CHLORIDE 1,000 ML IV SCH ×3 (11:45→20:30)
[2017-09-19] MEDS ORDERED: ALBUTEROL SO4 2.5/IPRATROPIUM 0.5 INH SOL 3 ML VIAL.NEB. NEB ONE (12:00)
--- NOTE | 2017-09-19 12:51 | PN ---
Teaching Attending Note Name of Resident: Anton Zamora ATTENDING PHYSICIAN STATEMENT I saw and evaluated the patient. I reviewed the resident's note and discussed the case with the resident. I agree with the resident's findings and plan as documented. SUBJECTIVE: Patient seen and examined in the ICU. Low grade temps persist. Remains on AC Mode of vent 30% FiO2. Awake and responsive and following commands. Intake & Output 09/16/17 09/17/17 09/18/17 09/19/17 23:59 23:59 23:59 23:59 Intake Total 610 1987.4 2660.8 766.2 Output Total 1850 2450 2145 429 Balance -1240 -462.6 515.8 337.2 Weight 204 lb 4 oz 203 lb 1 oz 202 lb 9.677 oz 204 lb 11.2 oz Last Vital Signs Temp Pulse Resp BP Pulse Ox 99.9 F H 82 28 H 151/90 99 09/19/17 10:00 09/19/17 11:17 09/19/17 11:17 09/19/17 11:17 09/18/17 22:00 Active Medications Acetaminophen (Tylenol -) 650 mg NR Q6H PRN PRN Reason: FEVER OR PAIN Last Admin: 09/16/17 18:27 Dose: 650 mg Bacitracin (Bacitracin -) 1 applic TP DAILY [facility] Last Admin: 09/19/17 09:28 Dose: 1 applic Bacitracin/Polymyxin B Sulfate (Polysporin Ointment -) 1 applic TP DAILY [facility] Last Admin: 09/19/17 09:44 Dose: 1 applic Chlorhexidine Gluconate (Peridex -) 15 ml MM BID [facility] Last Admin: 09/19/17 09:30 Dose: 15 ml Fentanyl (Sublimaze Injection -) 50 mcg IVPUSH Q6H PRN PRN Reason: PAIN Stop: 09/20/17 11:59 Last Admin: 09/19/17 12:05 Dose: 50 mcg Ferrous Sulfate (Feosol -) 325 mg PO DAILY [facility] Last Admin: 09/19/17 09:29 Dose: 325 mg Folic Acid (Folic Acid -) 1 mg PO DAILY [facility] Last Admin: 09/19/17 09:30 Dose: 1 mg Heparin Sodium (Porcine) (Heparin -) 5,000 unit SQ TID [facility] Last Admin: 11/02/17 05:23 Dose: 5,000 unit Propofol (Diprivan -) 100 mls @ 5.898 mls/hr IVPUSH TITR [facility]; 10 MCG/KG/MIN PRN Reason: Protocol Last Admin: 09/19/17 09:43 Dose: 26.541 mls/hr Cefazolin Sodium (Ancef 1gm Ivpb (Pre-Docked)) 50 mls @ 100 mls/hr IVPB Q8H-IV [facility] Last Admin: 09/19/17 09:26 Dose: 100 mls/hr Acyclovir 900 mg/ Dextrose 268 mls @ 178.667 mls/hr IVPB BID [facility] Last Admin: 09/19/17 10:28 Dose: 178.667 mls/hr Sodium Chloride (Normal Saline -) 1,000 mls @ 75 mls/hr IV ASDIR [facility] Last Admin: 09/19/17 12:06 Dose: 75 mls/hr Metoprolol Tartrate (Lopressor -) 25 mg NGT BID [facility] Last Admin: 09/19/17 09:30 Dose: 25 mg Multivitamins/Minerals (Theragran-M) 1 each PO DAILY [facility] Last Admin: 09/19/17 09:44 Dose: 1 each Pantoprazole Sodium (Protonix Iv) 40 mg IVPUSH DAILY [facility] Last Admin: 09/19/17 09:28 Dose: 40 mg Sevelamer Carbonate (Renvela -) 800 mg PO TIDCM [facility] Last Admin: 09/19/17 11:02 Dose: Not Given Thiamine HCl (Vitamin B1 -) 100 mg PO DAILY [facility] Last Admin: 09/19/17 09:44 Dose: 100 mg Gen: Intubated and awake Heart: RRR Lung: bilateral coarse rhonchi Abd: soft, nontender Ext: + edema Laboratory Results - last 24 hr 09/19/17 09/19/17 05:28 05:28 WBC 15.4 H D RBC 2.59 L Hgb 7.6 L Hct 23.0 L MCV 88.8 MCH 29.3 MCHC 32.9 RDW 16.8 H Plt Count 383 MPV 6.7 L Neutrophils % 80.4 Lymphocytes % 6.8 L D Monocytes % 6.5 Eosinophils % 6.0 H Basophils % 0.3 Platelet Estimate Adequate Platelet Comment No clotting detected Sodium 139 Potassium 4.0 Chloride 106 Carbon Dioxide 20 L Anion Gap 13 BUN 85 H Creatinine 3.4 H Creat Clearance w eGFR 18.16 Random Glucose 104 Calcium 8.2 L Phosphorus 6.3 H Total Bilirubin 0.6 AST 43 H D ALT 6 L Alkaline Phosphatase 208 H D Total Protein 7.4 Albumin 1.6 L ASSESSMENT AND PLAN: Acute Hypoxic Respiratory Failure / component of ARDS physiology likely Staph Pneumonia MSSA Bacteremia -> Endocarditis ruled out Septic Shock Alcohol Dependence ARF AFib - SBTs attempts with hopes of extubation - ABX per ID - O2 to keep SpO2 >90% - Enteral feeds - DVT/GI prophylaxis - Replete pita Griffin Critical care time spent in reviewing chart, evaluating patient and formulating plan 40 min
--- NOTE | 2017-09-19 12:56 | PN ---
Progress Note, Physician History of Present Illness: Pt seen and examined at bedside. He was just extubated. - Current Medication List Current Medications: Active Medications Acetaminophen (Tylenol -) 650 mg NR Q6H PRN PRN Reason: FEVER OR PAIN Last Admin: 09/16/17 18:27 Dose: 650 mg Bacitracin (Bacitracin -) 1 applic TP DAILY [facility] Last Admin: 09/19/17 09:28 Dose: 1 applic Bacitracin/Polymyxin B Sulfate (Polysporin Ointment -) 1 applic TP DAILY [facility] Last Admin: 09/19/17 09:44 Dose: 1 applic Chlorhexidine Gluconate (Peridex -) 15 ml MM BID [facility] Last Admin: 09/19/17 09:30 Dose: 15 ml Fentanyl (Sublimaze Injection -) 50 mcg IVPUSH Q6H PRN PRN Reason: PAIN Stop: 09/20/17 11:59 Last Admin: 09/19/17 12:05 Dose: 50 mcg Ferrous Sulfate (Feosol -) 325 mg PO DAILY [facility] Last Admin: 09/19/17 09:29 Dose: 325 mg Folic Acid (Folic Acid -) 1 mg PO DAILY [facility] Last Admin: 09/19/17 09:30 Dose: 1 mg Heparin Sodium (Porcine) (Heparin -) 5,000 unit SQ TID [facility] Last Admin: 09/19/17 05:23 Dose: 5,000 unit Propofol (Diprivan -) 100 mls @ 5.898 mls/hr IVPUSH TITR [facility]; 10 MCG/KG/MIN PRN Reason: Protocol Last Admin: 09/19/17 09:43 Dose: 26.541 mls/hr Cefazolin Sodium (Ancef 1gm Ivpb (Pre-Docked)) 50 mls @ 100 mls/hr IVPB Q8H-IV [facility] Last Admin: 09/19/17 09:26 Dose: 100 mls/hr Acyclovir 900 mg/ Dextrose 268 mls @ 178.667 mls/hr IVPB BID [facility] Last Admin: 09/19/17 10:28 Dose: 178.667 mls/hr Sodium Chloride (Normal Saline -) 1,000 mls @ 75 mls/hr IV ASDIR [facility] Last Admin: 09/19/17 12:06 Dose: 75 mls/hr Metoprolol Tartrate (Lopressor -) 25 mg NGT BID [facility] Last Admin: 09/19/17 09:30 Dose: 25 mg Multivitamins/Minerals (Theragran-M) 1 each PO DAILY [facility] Last Admin: 09/19/17 09:44 Dose: 1 each Pantoprazole Sodium (Protonix Iv) 40 mg IVPUSH DAILY [facility] Last Admin: 09/19/17 09:28 Dose: 40 mg Sevelamer Carbonate (Renvela -) 800 mg PO TIDCM [facility] Last Admin: 09/19/17 11:02 Dose: Not Given Thiamine HCl (Vitamin B1 -) 100 mg PO DAILY [facility] Last Admin: 09/19/17 09:44 Dose: 100 mg - Objective Vital Signs: Vital Signs Temperature 99.9 F H 09/19/17 10:00 Pulse Rate 82 09/19/17 11:17 Respiratory Rate 28 H 09/19/17 11:17 Blood Pressure 151/90 09/19/17 11:17 O2 Sat by Pulse Oximetry (%) 99 09/18/17 22:00 Constitutional: Yes: Calm Eyes: Yes: Conjunctiva Clear HENT: Yes: Atraumatic Cardiovascular: Yes: S1, S2 Respiratory: Yes: On Venti-Mask, Other (chest tube) Gastrointestinal: Yes: Soft Genitourinary: Yes: Freeman Present Musculoskeletal: Yes: Muscle Weakness Edema: LUE: Trace, RUE: Trace, LLE: Trace, RLE: Trace Neurological: Yes: Other (pt just extubated, awake) Labs: CBC, BMP 09/19/17 05:28 09/19/17 05:28 INR, PTT INR 0.96 (0.82-1.09) 09/01/17 09:05 - ....Imaging Chest X-ray: Report Reviewed Problem List - Problems (1) Acute kidney injury Code(s): N17.9 - ACUTE KIDNEY FAILURE, UNSPECIFIED (2) Anemia Code(s): D64.9 - ANEMIA, UNSPECIFIED Qualifiers: Anemia type: unspecified type Qualified Code(s): D64.9 - Anemia, unspecified; D64.9 - Anemia, unspecified (3) Hyponatremia Code(s): E87.1 - HYPO-OSMOLALITY AND HYPONATREMIA (4) Respiratory failure with hypoxia Code(s): J96.91 - RESPIRATORY FAILURE, UNSPECIFIED WITH HYPOXIA Qualifiers: Chronicity: acute Qualified Code(s): J96.01 - Acute respiratory failure with hypoxia; J96.01 - Acute respiratory failure with hypoxia; J96.01 - Acute respiratory failure with hypoxia (5) Staphylococcus aureus bacteremia Code(s): R78.81 - BACTEREMIA (6) Withdrawal symptoms, alcohol Code(s): F10.239 - ALCOHOL DEPENDENCE WITH WITHDRAWAL, UNSPECIFIED Qualifiers : Complication of substance-induced condition: uncomplicated Qualified Code(s): F10.230 - Alcohol dependence with withdrawal, uncomplicated; F10.230 - Alcohol dependence with withdrawal, uncomplicated; F10.230 - Alcohol dependence with withdrawal, uncomplicated (7) Abuse, drug or alcohol Code(s): F19.10 - OTHER PSYCHOACTIVE SUBSTANCE ABUSE, UNCOMPLICATED Assessment/Plan Current Medications Generic Name Dose Route Start Last Admin Trade Name Freq PRN Reason Stop Dose Admin Acetaminophen 650 mg 09/07/17 05:53 09/16/17 18:27 Tylenol - NR 650 mg Q6H PRN Administration FEVER OR PAIN Bacitracin 1 applic 09/02/17 10:00 09/19/17 09:28 Bacitracin - TP 1 applic DAILY [facility] Administration Bacitracin/Polymyxin B Sulfate 1 applic 09/16/17 20:45 09/19/17 09:44 Polysporin Ointment - TP 1 applic DAILY [facility] Administration Chlorhexidine Gluconate 15 ml 09/08/17 12:30 09/19/17 09:30 Peridex - MM 15 ml BID [facility] Administration Fentanyl 50 mcg 09/19/17 11:58 09/19/17 12:05 Sublimaze Injection - IVPUSH 09/20/17 11:59 50 mcg Q6H PRN Administration PAIN Ferrous Sulfate 325 mg 09/05/17 12:00 09/19/17 09:29 Feosol - PO 325 mg DAILY [facility] Administration Folic Acid 1 mg 09/02/17 10:00 09/19/17 09:30 Folic Acid - PO 1 mg DAILY [facility] Administration Heparin Sodium (Porcine) 5,000 unit 09/02/17 06:00 09/19/17 05:23 Heparin - SQ 5,000 unit TID [facility] Administration Propofol 100 mls @ 5.898 mls/hr 09/07/17 07:30 09/19/17 09:43 Diprivan - IVPUSH 26.541 mls/hr TITR [facility] Administration Protocol 10 MCG/KG/MIN Cefazolin Sodium 50 mls @ 100 mls/hr 09/16/17 10:00 09/19/17 09:26 Ancef 1gm Ivpb (Pre-Docked) IVPB 100 mls/hr Q8H-IV [facility] Administration Acyclovir 900 mg/ Dextrose 268 mls @ 178.667 mls/hr 09/19/17 10:00 09/19/17 10: 28 IVPB 178.667 mls/hr BID [facility] Administration Sodium Chloride 1,000 mls @ 75 mls/hr 09/19/17 11:45 09/19/17 12:06 Normal Saline - IV 75 mls/hr ASDIR [facility] Administration Metoprolol Tartrate 25 mg 09/18/17 06:30 09/19/17 09:30 Lopressor - NGT 25 mg BID [facility] Administration Multivitamins/Minerals 1 each 09/02/17 10:00 09/19/17 09:44 Theragran-M PO 1 each DAILY [facility] Administration Pantoprazole Sodium 40 mg 09/09/17 18:45 09/19/17 09:28 Protonix Iv IVPUSH 40 mg DAILY [facility] Administration Sevelamer Carbonate 800 mg 09/12/17 17:30 09/19/17 11:02 Renvela - PO Not Given TIDCM [facility] Thiamine HCl 100 mg 09/02/17 10:00 09/19/17 09:44 Vitamin B1 - PO 100 mg DAILY [facility] Administration Impression 1. ALEXANDRA 2. fluid overload 3. hypoalbuminemia 4. respiratory failure requiring intubation 5. anemia 6. etoh abuse 7. fevers 8. hypokalemia Plan - will continue to monitor renal function - workup in progress - can decrease rate of fluids - will continue to monitor volume status - cont oxygen and monitor pulse ox - will follow Dr Peres
--- NOTE | 2017-09-19 14:40 | PN ---
Physical Exam: SUBJECTIVE: Patient seen and examined patient sedation was stopped, taken on cpap and later on extubated. Nasal trumpet was inserted. do suction from nasal trumpet. started on fentanyl prn for pain. OBJECTIVE: Vital Signs Period Temp Pulse Resp BP Sys/Jeff Pulse Ox Last 24 Hr 99.8 F-100.4 F 80-94 25-37 109-156/80-91 99-99 GENERAL: The patient is awake, off from sedation, alert . HEAD: Normal with no signs of trauma. EYES: PERRL, No ptosis. ENT: moist mucous membranes. NECK: Trachea midline, full range of motion, supple. LUNGS: decrease breath sound on right side. mild crackles on right side, HEART: regular, tachy, s1s2 normal ABDOMEN: Soft, nontender, nondistended, normoactive bowel sounds, no guarding, no rebound, . SKIN: Warm, dry, Laboratory Results - last 24 hr 09/19/17 09/19/17 05:28 05:28 WBC 15.4 H D RBC 2.59 L Hgb 7.6 L Hct 23.0 L MCV 88.8 MCH 29.3 MCHC 32.9 RDW 16.8 H Plt Count 383 MPV 6.7 L Neutrophils % 80.4 Lymphocytes % 6.8 L D Monocytes % 6.5 Eosinophils % 6.0 H Basophils % 0.3 Platelet Estimate Adequate Platelet Comment No clotting detected Sodium 139 Potassium 4.0 Chloride 106 Carbon Dioxide 20 L Anion Gap 13 BUN 85 H Creatinine 3.4 H Creat Clearance w eGFR 18.16 Random Glucose 104 Calcium 8.2 L Phosphorus 6.3 H Total Bilirubin 0.6 AST 43 H D ALT 6 L Alkaline Phosphatase 208 H D Total Protein 7.4 Albumin 1.6 L Active Medications Generic Name Dose Route Start Last Admin Trade Name Freq PRN Reason Stop Dose Admin Acetaminophen 650 mg 09/07/17 05:53 09/16/17 18:27 Tylenol - NR 650 mg Q6H PRN Administration FEVER OR PAIN Bacitracin 1 applic 09/02/17 10:00 09/19/17 09:28 Bacitracin - TP 1 applic DAILY KINGS Administration Bacitracin/Polymyxin B Sulfate 1 applic 09/16/17 20:45 09/19/17 09:44 Polysporin Ointment - TP 1 applic DAILY KINGS Administration Chlorhexidine Gluconate 15 ml 09/08/17 12:30 09/19/17 09:30 Peridex - MM 15 ml BID KINGS Administration Fentanyl 50 mcg 09/19/17 11:58 09/19/17 12:05 Sublimaze Injection - IVPUSH 09/20/17 11:59 50 mcg Q6H PRN Administration PAIN Ferrous Sulfate 325 mg 09/05/17 12:00 09/19/17 09:29 Feosol - PO 325 mg DAILY KINGS Administration Folic Acid 1 mg 09/02/17 10:00 09/19/17 09:30 Folic Acid - PO 1 mg DAILY KINGS Administration Heparin Sodium (Porcine) 5,000 unit 09/02/17 06:00 09/19/17 05:23 Heparin - SQ 5,000 unit TID KINGS Administration Propofol 100 mls @ 5.898 mls/hr 09/07/17 07:30 09/19/17 09:43 Diprivan - IVPUSH 26.541 mls/hr TITR KINGS Administration Protocol 10 MCG/KG/MIN Cefazolin Sodium 50 mls @ 100 mls/hr 09/16/17 10:00 09/19/17 09:26 Ancef 1gm Ivpb (Pre-Docked) IVPB 100 mls/hr Q8H-IV KINGS Administration Acyclovir 900 mg/ Dextrose 268 mls @ 178.667 mls/hr 09/19/17 10:00 09/19/17 10: 28 IVPB 178.667 mls/hr BID KINGS Administration Sodium Chloride 1,000 mls @ 75 mls/hr 09/19/17 11:45 09/19/17 12:06 Normal Saline - IV 75 mls/hr ASDIR KINGS Administration Metoprolol Tartrate 25 mg 09/18/17 06:30 09/19/17 09:30 Lopressor - NGT 25 mg BID KINGS Administration Multivitamins/Minerals 1 each 09/02/17 10:00 09/19/17 09:44 Theragran-M PO 1 each DAILY KINGS Administration Pantoprazole Sodium 40 mg 09/09/17 18:45 09/19/17 09:28 Protonix Iv IVPUSH 40 mg DAILY KINGS Administration Sevelamer Carbonate 800 mg 09/12/17 17:30 09/19/17 11:02 Renvela - PO Not Given TIDCM KINGS Thiamine HCl 100 mg 09/02/17 10:00 09/19/17 09:44 Vitamin B1 - PO 100 mg DAILY KINGS Administration Microbiology 09/17/17 16:14 Gram Stain - Final Pleural Fluid Body Fluid Culture - Preliminary NO AEROBIC GROWTH, 24 HRS 09/17/17 16:14 AFB Smear Concentration - Preliminary Pleural Fluid Mycobacterial Culture - Preliminary 09/17/17 16:14 MAGI Preparation - Preliminary Pleural Fluid Fungal Culture - Preliminary ASSESSMENT/PLAN: #acute hypoxic respiratory failure extubated on veturim spo2 100. keep spo2. 90 keep head end elevated take aspiration precaution on duoneb continue with chest physio incentive spirometry. fetanyl prn for pain. #sepsis 2/2 cavitary PNA, MSSA bacteremia -Abx per ID: Continue Cefazolin 1gm q8h (started 09/16), - chest tube in situ, hemorrhagic - cytology exudative follow culture report of chest fluid. #Afib - on amiodarone gtt, CHADVASC score of 2 -Cardiology following - on rate control with metoprolol #chronic diastolic heart failure (NYHA class II) - ECHO 09/02/2017 rprobable preserved LV function, but can't R/O regional wall motion abnormality -start metoprolol 25mg NGT BID #ALEXANDRA -Nephrology on case -Strict I&Os, hines - monitor creatnine - work up in progress. #anemia s/p 2U PRBCs, FOBT neg, pleural fluid bloody -Cont Ferrous Sulfate 325 mg PO DAILY KINGS -Cont Sevelamer Carbonate (Renvela) 800 mg PO TID -Transfuse hgb<7 #EtOH abuse -Monitor for signs of EtOH withdrawal -Ativan 2mg IV q2h PRN -MVI, thiamine 100mg PO qd, folic acid 1mg PO daily #FEN -on low dose IV fluid 42ml/hr. -lytes winl -Enteral feeds #PPX -DVT - Hep SQ TID -GI - Pantoprazole 40mg IV daily
[2017-09-19] MEDS ORDERED: ALBUTEROL SO4 2.5/IPRATROPIUM 0.5 INH SOL 3 ML VIAL.NEB. NEB PRN (14:55)
--- NOTE | 2017-09-19 16:27 | PN ---
Teaching Attending Note Name of Resident: Lydia Salter ATTENDING PHYSICIAN STATEMENT I saw and evaluated the patient. I reviewed the resident's note and discussed the case with the resident. I agree with the resident's findings and plan as documented. SUBJECTIVE:intubated/sedated OBJECTIVE: Last Vital Signs Temp Pulse Resp BP Pulse Ox 99.8 F H 99 H 21 157/94 99 09/19/17 14:00 09/19/17 16:00 09/19/17 16:00 09/19/17 16:00 09/18/17 22:00 Intake & Output 09/16/17 09/17/17 09/18/17 09/19/17 23:59 23:59 23:59 23:59 Intake Total 610 1987.4 2660.8 766.2 Output Total 1850 2450 2145 1129 Balance -1240 -462.6 515.8 -362.8 Weight 204 lb 4 oz 203 lb 1 oz 202 lb 9.677 oz 204 lb 11.2 oz General intubated/sedated CV S1 S2 RRR no murmur/rub/gallop Lungs course breath sounds diffusely abdomen soft NT/ND Extremities trace pitting edema pustular rash on anterior norris of RLE ASSESSMENT AND PLAN: 66 yo M with PMH alcohol abuse, HTN who presented to the ER after being found on the floor. 1. Acute hypoxic respiratory failure- likely due to cavitary PNA. not tolerating weaning trials. spoke with ID and agree that pt may need VATS if does not improve as he continues to have multiple temp spikes. pulmonary to attempt weaning trial today. if does not do well will need to consider trach. crit care on board. 2. Sepsis secondary to cavitary healthcare-associated pneumonia, MSSA bacteremia - multiple low grade fevers. off pressors. negative for endocarditis. +chest tube with sangenous drainage. on Cefazolin. pustular lesion noted on RLE. could be due to staph infection however still concern for shingles given dermatome distribution. will be started on acylcovir. will need to monitor renal fx. ID on board. 3. New onset afib- rate controlled on amio ggt. will transition to po and titrate off ggt. will start heparin ggt if no procedures are planned 4. Acute kidney injury with hyperphosphatemia- Cr now stable. monitor closely while on acyclovir. no indication for FIRST AID NURSE at this time. nephrology on board. 5. Anemia- s/p 2 units PRBC this admission. on iron supplementations. likely some due to traumatic placement of chest tube with sangenous drainage. will monitor closely. no indication for txn at this time. 6. Hepatic transaminitis- stable. will need to monitor closely as now on amio. US shows hepatosplenomegaly and fatty infiltration of liver 7. Thrombocytopenia- Secondary to alcohol, splenomegaly. now stable 8. HTN- initially hypotensive. now off pressors. cont medicaitons 9. 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 DVT prophylaxis- heparin subq 12. Stress ulcer prophylaxis- Protonix IV The care of this patient involved high complexity decision making to prevent further life threatening deterioration of the patient's condition and/or to evaluate & treat vital organ system(s) failure or risk of failure. 45 mins
--- NOTE | 2017-09-19 16:48 | PATH ---
Cytology Non-Gynecological Report Patient Name: KELLI ROBERTSON [facility]. Rec. #: [id number] /Age/Gender: 1950 (Age: 66) / M Account: [id number] Location: ICU CLINICAL INFORMATICS SPEC Taken: 09/17/2017 Received: 09/18/2017 Reported: 09/19/2017 Physicians: Angelo Raymundo M.D. Specimen(s) Received PLEURAL FLUID Clinical History Pneumonia Final Diagnosis PLEURAL FLUID FOR CYTOLOGY: SATISFACTORY FOR EVALUATION NO MALIGNANT CELLS IDENTIFIED. RARE MESOTHELIAL CELLS, SCATTERED NEUTROPHILS, AND FEW LYMPHOCYTES PRESENT. Electronically Signed Katie Mitchell M.D. Gross Description Approximately 50 cc of bloody fluid received fixed in 50% alcohol. Two cytofunnels and one cellblock prepared.
--- NOTE | 2017-09-19 17:23 | PN ---
Physical Exam: 24H Events: -continues to have low grade temperatures, pleural cultures sterile, acyclovir added by ID for zosters -NSR overnight --> amio gtt d/c -tolerated CPAP in AM, extubated to venti 100% SUBJECTIVE: Patient seen and examined in ICU. awake, on fentanyl gtt for pain OBJECTIVE: Vital Signs Period Temp Pulse Resp BP Sys/Jeff Pulse Ox Last 24 Hr 99.8 F-100.4 F 80-99 21-37 109-157/80-94 99-99 Intake & Output 09/16/17 09/17/17 09/18/17 09/19/17 23:59 23:59 23:59 23:59 Intake Total 610 1987.4 2660.8 766.2 Output Total 1850 2450 2145 1129 Balance -1240 -462.6 515.8 -362.8 Weight 92.646 kg 92.108 kg 91.9 kg 92.85 kg GENERAL: awake, alert, on venti mask EYES: sclera anicteric, conjunctiva clear ENT: moist mucous membranes LUNGS: b/l scattered rhonchi HEART: rrr, normal s1/s2 without murmur, rub or gallop. ABDOMEN: Soft, nontender, mildly distended EXTREMITIES: UE 3+ edema, LE 1+ edema, dermatitis pustules R anterior norris CBC, BMP 09/19/17 05:28 09/19/17 05:28 Hepatic Panel Total Bilirubin 0.6 mg/dL (0.2-1.0) 09/19/17 05:28 Direct Bilirubin 1.8 mg/dL (0.0-0.2) H D 09/09/17 05:00 AST 43 U/L (15-37) H D 09/19/17 05:28 ALT 6 U/L (12-78) L 09/19/17 05:28 Alkaline Phosphatase 208 U/L (45-117) H D 09/19/17 05:28 Albumin 1.6 g/dl (3.4-5.0) L 09/19/17 05:28 Ca - 8.2 Phos - 6.3 Microbiology 09/19/17 10:00 Leg - Right Lower Gram Stain - Final 09/17/17 16:14 Pleural Fluid Gram Stain - Final 09/17/17 16:14 Pleural Fluid Body Fluid Culture - Preliminary NO AEROBIC GROWTH, 24 HRS 09/17/17 16:14 Pleural Fluid AFB Smear Concentration - Preliminary 09/17/17 16:14 Pleural Fluid Mycobacterial Culture - Preliminary 09/17/17 16:14 Pleural Fluid MAGI Preparation - Preliminary 09/17/17 16:14 Pleural Fluid Fungal Culture - Preliminary 09/12/17 09:20 Blood - Peripheral Venous Blood Culture - Final NO GROWTH AFTER 5 DAYS INCUBATION 09/12/17 09:15 Blood - Peripheral Venous Blood Culture - Final NO GROWTH AFTER 5 DAYS INCUBATION 09/10/17 10:00 Blood - Peripheral Venous Blood Culture - Final NO GROWTH AFTER 5 DAYS INCUBATION 09/10/17 10:00 Blood - Peripheral Venous Blood Culture - Final NO GROWTH AFTER 5 DAYS INCUBATION 09/08/17 05:45 Blood - Peripheral Venous Blood Culture - Final NO GROWTH AFTER 5 DAYS INCUBATION 09/08/17 05:45 Blood - Peripheral Venous Blood Culture - Final NO GROWTH AFTER 5 DAYS INCUBATION 09/10/17 09:35 Sputum - Endotrachea Suction/Ventilator Gram Stain - Final 09/10/17 09:35 Sputum - Endotrachea Suction/Ventilator Sputum Culture - Final Yeast Like Organism 09/08/17 18:07 Pleural Fluid Gram Stain - Final 09/08/17 18:07 Pleural Fluid Body Fluid Culture - Final NO GROWTH OF AEROBIC ORGANISMS AFTER 48 HOURS INCUBATION 09/08/17 18:07 Pleural Fluid Anaerobic Culture - Final NO ANAEROBES WERE ISOLATED 09/10/17 09:35 Urine - Urine Hines Urine Culture - Final IMAGING: CXR (09/19/17): no significant change from prior Active Medications Acetaminophen (Tylenol -) 650 mg NR Q6H PRN PRN Reason: FEVER OR PAIN Last Admin: 09/16/17 18:27 Dose: 650 mg Albuterol/Ipratropium (Duoneb -) 1 amp NEB Q6H PRN PRN Reason: SHORTNESS OF BREATH Bacitracin (Bacitracin -) 1 applic TP DAILY [facility] Last Admin: 09/19/17 09:28 Dose: 1 applic Bacitracin/Polymyxin B Sulfate (Polysporin Ointment -) 1 applic TP DAILY [facility] Last Admin: 09/19/17 09:44 Dose: 1 applic Chlorhexidine Gluconate (Peridex -) 15 ml MM BID KINGS Last Admin: 09/19/17 09:30 Dose: 15 ml Fentanyl (Sublimaze Injection -) 50 mcg IVPUSH Q6H PRN PRN Reason: PAIN Stop: 09/20/17 11:59 Last Admin: 09/19/17 12:05 Dose: 50 mcg Ferrous Sulfate (Feosol -) 325 mg PO DAILY [facility] Last Admin: 09/19/17 09:29 Dose: 325 mg Folic Acid (Folic Acid -) 1 mg PO DAILY [facility] Last Admin: 09/19/17 09:30 Dose: 1 mg Propofol (Diprivan -) 100 mls @ 5.898 mls/hr IVPUSH TITR KINGS; 10 MCG/KG/MIN PRN Reason: Protocol Last Admin: 09/19/17 09:43 Dose: 26.541 mls/hr Cefazolin Sodium (Ancef 1gm Ivpb (Pre-Docked)) 50 mls @ 100 mls/hr IVPB Q8H-IV [facility] Last Admin: 09/19/17 17:56 Dose: 100 mls/hr Acyclovir 900 mg/ Dextrose 268 mls @ 178.667 mls/hr IVPB BID [facility] Last Admin: 09/19/17 10:28 Dose: 178.667 mls/hr Sodium Chloride (Normal Saline -) 1,000 mls @ 42 mls/hr IV ASDIR [facility] Metoprolol Tartrate (Lopressor -) 25 mg NGT BID [facility] Last Admin: 09/19/17 09:30 Dose: 25 mg Multivitamins/Minerals (Theragran-M) 1 each PO DAILY [facility] Last Admin: 09/19/17 09:44 Dose: 1 each Pantoprazole Sodium (Protonix Iv) 40 mg IVPUSH DAILY [facility] Last Admin: 09/19/17 09:28 Dose: 40 mg Sevelamer Carbonate (Renvela -) 800 mg PO TIDCM [facility] Last Admin: 09/19/17 16:33 Dose: Not Given Thiamine HCl (Vitamin B1 -) 100 mg PO DAILY [facility] Last Admin: 09/19/17 09:44 Dose: 100 mg ASSESSMENT/PLAN: 66yo man with PMH of EtOH abuse and HTN who is admitted (08/31) for acute hypoxic respiratory failure requiring mechanical ventilation (09/02 - 09/19) and sepsis 2/2 cavitary PNA and MSSA bacteremia. ALISA (09/13) r/o endocarditis. Patient continues to have low grade fevers. Serial blood cultures collected , 09/10, 09/12 NGTD, sputum cultures grew yeast-like organism and patient treated with Diflucan. RLE pustules noted on anterior norris, ID started acyclovir for possible suspicion of zoster. #acute hypoxic respiratory failure -O2 as needed to maintain SpaO2>90% -suctioning via nasal trumpet prn -duo nebs, chest physiotherapy, incentive spirometer -fentanyl gtt for pain #sepsis 2/2 cavitary PNA, MSSA bacteremia -Started on Acyclovir (09/19) renally dosed, isolation, f/u wound cultures -Abx per ID: Continue Cefazolin 1gm q8h (started 09/16), d/c diflucan (09/12-09/18) -f/u pleural fluid culture (09/17), NGTD #Afib - CHADVASC score of 2 indicating AC -Cardiology following: d/c amio gtt, consider amio PO -Consider starting heparin gtt if further procedures planned #suspected chronic diastolic heart failure - ECHO 09/02/2017 rprobable preserved LV function, but can't R/O regional wall motion abnormality -metoprolol 25mg po BID #ALEXANDRA -Nephrology consulted -c3/c4 complement level wnl; PROSPER positive -Strict I&Os, hines -Renal dose for meds #anemia s/p 2U PRBCs, FOBT neg, pleural fluid bloody -Cont Ferrous Sulfate 325 mg PO DAILY KINGS -Cont Sevelamer Carbonate (Renvela) 800 mg PO TID -Transfuse hgb<7 #EtOH abuse -Monitor for signs of EtOH withdrawal -Ativan 2mg IV q2h PRN -MVI, thiamine 100mg PO qd, folic acid 1mg PO daily #FEN -IVF at 42cc/hr -hyperphosphatemia noted -Enteral feeds #PPX -DVT - Hep SQ TID -GI - Pantoprazole 40mg IV daily #Dispo: continue ICU monitoring FULL code d/w Dr. Zakia Salter MD PGY-1 Visit type - Emergency Visit Emergency Visit: No - New Patient This patient is new to me today: No - Critical Care Critical Care patient: Yes Total Critical Care Time (in minutes): 45 Critical Care Statement: The care of this patient involved high complexity decision making to prevent further life threatening deterioration of the patient 's condition and/or to evaluate & treat vital organ system(s) failure or risk of failure.
--- NOTE | 2017-09-19 17:37 | PN ---
Progress Note, Physician Chief Complaint: Events noted Remains on mechanical ventilation, but awake while sedation has been turned off History of Present Illness: Patient was seen and examined in ICU. On mechanical ventilation Concerns for shingles - Current Medication List Current Medications: Active Medications Acetaminophen (Tylenol -) 650 mg NR Q6H PRN PRN Reason: FEVER OR PAIN Last Admin: 09/16/17 18:27 Dose: 650 mg Albuterol/Ipratropium (Duoneb -) 1 amp NEB Q6H PRN PRN Reason: SHORTNESS OF BREATH Bacitracin (Bacitracin -) 1 applic TP DAILY [facility] Last Admin: 09/19/17 09:28 Dose: 1 applic Bacitracin/Polymyxin B Sulfate (Polysporin Ointment -) 1 applic TP DAILY [facility] Last Admin: 09/19/17 09:44 Dose: 1 applic Chlorhexidine Gluconate (Peridex -) 15 ml MM BID [facility] Last Admin: 09/19/17 09:30 Dose: 15 ml Fentanyl (Sublimaze Injection -) 50 mcg IVPUSH Q6H PRN PRN Reason: PAIN Stop: 09/20/17 11:59 Last Admin: 09/19/17 12:05 Dose: 50 mcg Ferrous Sulfate (Feosol -) 325 mg PO DAILY [facility] Last Admin: 09/19/17 09:29 Dose: 325 mg Folic Acid (Folic Acid -) 1 mg PO DAILY [facility] Last Admin: 09/19/17 09:30 Dose: 1 mg Heparin Sodium (Porcine) (Heparin -) 5,000 unit SQ TID [facility] Last Admin: 09/19/17 14:54 Dose: 5,000 unit Propofol (Diprivan -) 100 mls @ 5.898 mls/hr IVPUSH TITR KINGS; 10 MCG/KG/MIN PRN Reason: Protocol Last Admin: 09/19/17 09:43 Dose: 26.541 mls/hr Cefazolin Sodium (Ancef 1gm Ivpb (Pre-Docked)) 50 mls @ 100 mls/hr IVPB Q8H-IV [facility] Last Admin: 09/19/17 09:26 Dose: 100 mls/hr Acyclovir 900 mg/ Dextrose 268 mls @ 178.667 mls/hr IVPB BID [facility] Last Admin: 09/19/17 10:28 Dose: 178.667 mls/hr Metoprolol Tartrate (Lopressor -) 25 mg NGT BID [facility] Last Admin: 09/19/17 09:30 Dose: 25 mg Multivitamins/Minerals (Theragran-M) 1 each PO DAILY [facility] Last Admin: 09/19/17 09:44 Dose: 1 each Pantoprazole Sodium (Protonix Iv) 40 mg IVPUSH DAILY [facility] Last Admin: 09/19/17 09:28 Dose: 40 mg Sevelamer Carbonate (Renvela -) 800 mg PO TIDCM [facility] Last Admin: 09/19/17 16:33 Dose: Not Given Thiamine HCl (Vitamin B1 -) 100 mg PO DAILY [facility] Last Admin: 09/19/17 09:44 Dose: 100 mg - Objective Vital Signs: Vital Signs Temperature 99.8 F H 09/19/17 14:00 Pulse Rate 99 H 09/19/17 16:00 Respiratory Rate 21 09/19/17 16:00 Blood Pressure 157/94 09/19/17 16:00 O2 Sat by Pulse Oximetry (%) 99 09/18/17 22:00 Cardiovascular: Yes: Regular Rate and Rhythm, S1, S2 Respiratory: Yes: Mechanically Ventilated, Rhonchi Gastrointestinal: Yes: Normal Bowel Sounds, Soft. No: Tenderness Edema: No Labs: CBC, BMP 09/19/17 05:28 09/19/17 05:28 - ....Imaging Chest X-ray: Report Reviewed (No signficant changes) Problem List - Problems (1) Acute diastolic heart failure Code(s): I50.31 - ACUTE DIASTOLIC (CONGESTIVE) HEART FAILURE (2) Anemia Code(s): D64.9 - ANEMIA, UNSPECIFIED Qualifiers: Anemia type: unspecified type Qualified Code(s): D64.9 - Anemia, unspecified; D64.9 - Anemia, unspecified (3) History of alcohol abuse Code(s): Z87.898 - PERSONAL HISTORY OF OTHER SPECIFIED CONDITIONS (4) Pneumonia Code(s): J18.9 - PNEUMONIA, UNSPECIFIED ORGANISM Qualifiers: Pneumonia type: aspiration pneumonia (5) Respiratory failure with hypoxia Code(s): J96.91 - RESPIRATORY FAILURE, UNSPECIFIED WITH HYPOXIA Qualifiers: Chronicity: acute Qualified Code(s): J96.01 - Acute respiratory failure with hypoxia; J96.01 - Acute respiratory failure with hypoxia; J96.01 - Acute respiratory failure with hypoxia (7) Abuse, drug or alcohol Code(s): F19.10 - OTHER PSYCHOACTIVE SUBSTANCE ABUSE, UNCOMPLICATED Assessment/Plan 1. Acute hypoxic respiratory failure, remains intubated/sedated, pulmonary infiltrates/pulmonary edema improving 2. Cavitary pneumonia, MSSA bacteremia suspect septic emboli, post septic shock , negative for endocarditis on ALISA 3. Probable diastolic LV dysfunction with congestive heart failure, volume overload, resolving 4. History of alcohol dependence 5. Acute renal insufficiency 6. Anemia PLAN: 1. Ventilator management as per the critical care team - weaning process 2. Antibiotics as per ID service. Also on Acyclovir for possible shingles 3. Enteral feeds, DVT and GI prophylaxis and librium taper as tolerated 4. Sedation turned off in preparation for extubation 5. Metoprolol as tolerated. Discontinue Amiodarone drip. May consider PO Amiodarone once extubated granted LFTs are normal. 6. Anticoagulation is also to be considered including Heparin drip if not contraindicated for now and then keno terminal operator use such as Warfarin or NOAC is to be decided Supportive care Jordon Gtz MD
[2017-09-19] MEDS ORDERED: AMIODARONE HCL INJECTION 450 MG in DEXTROSE 5%-WATER - 241 ML IVPB SCH (21:00)
[2017-09-19] MEDS ORDERED: METOPROLOL TARTRATE 5 MG/5 ML VIAL IVPUSH PRN (21:49)
[2017-09-19] MEDS ORDERED: FUROSEMIDE 40 MG/4 ML INJECTABLE VIAL IVPUSH ONE (22:15)
[2017-09-19] MEDS ORDERED: FUROSEMIDE INJECTION 100 MG in DEXTROSE 5%-WATER - 90 ML IVPB SCH (22:30)
[2017-09-19] MEDS ORDERED: FUROSEMIDE 40 MG/4 ML INJECTABLE VIAL ONE (22:42)
[2017-09-20] MEDS: CEFAZOLIN (PRE-DOCKED) 50 ML IVPB SCH ×3 (01:57→17:03)
[2017-09-20 06:06] LABS: BASOPHIL 0.5 % (0-2.0); EOSINOPHIL 4.9 % (0-4.5); MCH 29.5 pg (25.7-33.7); MCHC 33.8 g/dl (32.0-35.9); MEAN CELL VOLUME 87.4 fl (80-96); MEAN PLT VOLUME 6.6 fl (7.5-11.1); NEUTROPHILS 80.2 % (42.8-82.8); PLATELET COUNT 319 K/MM3 (134-434); RDW 16.7 % (11.9-15.9); WHITE BLOOD COUNT 13.3 K/mm3 (4.0-10.0)
[2017-09-20 07:07] LABS: ALBUMIN 1.8 g/dl (3.4-5.0); ALK PHOS 208 U/L (45-117); ANION GAP 13 (8-16); CALCIUM 8.5 mg/dL (8.5-10.1); CO2 22 mmol/L (21-32); CREATININE 3.6 mg/dL (0.7-1.3); GLUCOSE,RANDOM 101 mg/dL (74-106); SGOT/AST 41 U/L (15-37); SGPT/ALT < 6 U/L (12-78); TOT PROT 7.7 g/dl (6.4-8.2)
--- NOTE | 2017-09-20 07:55 | PN ---
Progress Note, Physician Chief Complaint: ID Dyspneic on BIPAP mask Cefazoolin & Acyclovir IV ( day 1 ) - Current Medication List Current Medications: Active Medications Acetaminophen (Tylenol -) 650 mg NR Q6H PRN PRN Reason: FEVER OR PAIN Last Admin: 09/16/17 18:27 Dose: 650 mg Albuterol/Ipratropium (Duoneb -) 1 amp NEB Q6H PRN PRN Reason: SHORTNESS OF BREATH Bacitracin (Bacitracin -) 1 applic TP DAILY [facility] Last Admin: 09/19/17 09:28 Dose: 1 applic Bacitracin/Polymyxin B Sulfate (Polysporin Ointment -) 1 applic TP DAILY [facility] Last Admin: 09/19/17 09:44 Dose: 1 applic Chlorhexidine Gluconate (Peridex -) 15 ml MM BID [facility] Last Admin: 09/19/17 21:58 Dose: Not Given Fentanyl (Sublimaze Injection -) 50 mcg IVPUSH Q6H PRN PRN Reason: PAIN Stop: 09/20/17 11:59 Last Admin: 09/19/17 12:05 Dose: 50 mcg Ferrous Sulfate (Feosol -) 325 mg PO DAILY [facility] Last Admin: 09/19/17 09:29 Dose: 325 mg Folic Acid (Folic Acid -) 1 mg PO DAILY [facility] Last Admin: 09/19/17 09:30 Dose: 1 mg Cefazolin Sodium (Ancef 1gm Ivpb (Pre-Docked)) 50 mls @ 100 mls/hr IVPB Q8H-IV [facility] Last Admin: 09/20/17 01:57 Dose: 100 mls/hr Acyclovir 900 mg/ Dextrose 268 mls @ 178.667 mls/hr IVPB BID [facility] Last Admin: 09/19/17 22:05 Dose: 178.667 mls/hr Sodium Chloride (Normal Saline -) 1,000 mls @ 42 mls/hr IV ASDIR [facility] Last Admin: 09/19/17 20:40 Dose: 42 mls/hr Furosemide 100 mg/ Dextrose 100 mls @ 5 mls/hr IVPB TITR [facility] PRN Reason: 5 MG/HR Last Admin: 09/19/17 22:49 Dose: 5 mls/hr Metoprolol Tartrate (Lopressor -) 25 mg NGT BID [facility] Last Admin: 09/19/17 21:58 Dose: Not Given Metoprolol Tartrate (Lopressor Injection -) 5 mg IVPUSH Q4H PRN PRN Reason: HYPERTENSION Last Admin: 09/19/17 22:07 Dose: 5 mg Multivitamins/Minerals (Theragran-M) 1 each PO DAILY [facility] Last Admin: 09/19/17 09:44 Dose: 1 each Pantoprazole Sodium (Protonix Iv) 40 mg IVPUSH DAILY [facility] Last Admin: 09/19/17 09:28 Dose: 40 mg Sevelamer Carbonate (Renvela -) 800 mg PO TIDCM [facility] Last Admin: 09/19/17 16:33 Dose: Not Given Thiamine HCl (Vitamin B1 -) 100 mg PO DAILY [facility] Last Admin: 09/19/17 09:44 Dose: 100 mg - Objective Vital Signs: Vital Signs Temperature 99.6 F 09/20/17 06:00 Pulse Rate 100 H 09/20/17 06:00 Respiratory Rate 27 H 09/20/17 06:00 Blood Pressure 153/93 09/20/17 06:00 O2 Sat by Pulse Oximetry (%) 97 09/20/17 04:12 Constitutional: Yes: Moderate Distress Neck: Yes: WNL, Supple Cardiovascular: Yes: Regular Rate and Rhythm, S1, S2. No: Murmur Respiratory: Yes: WNL, Regular, CTA Bilaterally Gastrointestinal: Yes: WNL, Normal Bowel Sounds, Soft. No: Tenderness, Tenderness, Rebound Extremities: No: Cold, Cool, Cyanosis Edema: Yes Integumentary: Yes: Other (Pustular dermatitis RLE) Labs: CBC, BMP 09/20/17 05:50 09/20/17 05:50 INR, PTT INR 0.96 (0.82-1.09) 09/01/17 09:05 Problem List - Problems (1) Pneumonia Code(s): J18.9 - PNEUMONIA, UNSPECIFIED ORGANISM Qualifiers: Pneumonia type: aspiration pneumonia (2) Respiratory failure with hypoxia Code(s): J96.91 - RESPIRATORY FAILURE, UNSPECIFIED WITH HYPOXIA Qualifiers: Chronicity: acute Qualified Code(s): J96.01 - Acute respiratory failure with hypoxia; J96.01 - Acute respiratory failure with hypoxia; J96.01 - Acute respiratory failure with hypoxia (3) Staphylococcus aureus bacteremia Code(s): R78.81 - BACTEREMIA (5) Endocarditis due to Staphylococcus Code(s): I33.0 - ACUTE AND SUBACUTE INFECTIVE ENDOCARDITIS B95.8 - UNSP STAPHYLOCOCCUS THE CAUSE OF DISEASES CLASSD ELSWHR Assessment/Plan Microbiology 09/19/17 10:00 Leg - Right Lower Gram Stain - Final Laboratory Tests 09/20/17 09/20/17 05:50 05:50 WBC 13.3 H Hgb 8.3 L Hct 24.5 L Plt Count 319 Neutrophils % 80.2 Lymphocytes % 7.2 L Monocytes % 7.2 Eosinophils % 4.9 H BUN 86 H Creatinine 3.6 H Creat Clearance w eGFR 17.00 AST 41 H ALT < 6 L Alkaline Phosphatase 208 H Assessment MSSA bacteremia Cavitary PNA> MSSA Acute renal failure (?exacerbated by Acyclovir) Pleural effusions ? loculated Pustular dermatitis ? shingles LE ( gram stain no polys or organisms but a swab) Plan Lower the dose of Zovirax for ACUTE RENAL FAILURE Contact isolation Cefazolin Giving zovirax without IVF going to be problematic from renal failure standpoint Consider thoracic evaluation Critical care time spent 35 minutes including discussion with pharmacy re dosing gretchen Cifuentes MD
[2017-09-20] MEDS: SEVELAMER CARBONATE 800 MG TAB (FP) PO SCH ×3 (08:09→16:42)
--- NOTE | 2017-09-20 08:48 | PN ---
Physical Exam: 24H Events: yesterday - extubated to venti mask, started on acyclovir for possible herpes zoster ON - desatting so started on lasix gtt and placed on BiPAP SUBJECTIVE: Patient seen and examined in ICU. On bipap, difficult speaking OBJECTIVE: Vital Signs Period Temp Pulse Resp BP Sys/Jeff Pulse Ox Last 24 Hr 99.6 F-100.1 F 80-102 17-32 140-162/84-100 97-100 Intake & Output 09/17/17 09/18/17 09/19/17 09/20/17 23:59 23:59 23:59 23:59 Intake Total 1987.4 2660.8 766.2 715 Output Total 2450 2145 1929 2951 Balance -462.6 515.8 -1162.8 -2236 Weight 92.108 kg 91.9 kg 92.85 kg 91.1 kg GENERAL: awake, alert, on bipap EYES: sclera anicteric, conjunctiva clear ENT: moist mucous membranes, R nasal trumpet for suctioning LUNGS: b/l scattered rhonchi HEART: rrr, normal s1/s2 without murmur, rub or gallop. ABDOMEN: Soft, nontender, mildly distended EXTREMITIES: UE 3+ edema, LE 1+ edema, dermatitis pustules R anterior norris CBC, BMP 09/20/17 05:50 09/20/17 05:50 Hepatic Panel Total Bilirubin 1.0 mg/dL (0.2-1.0) D 09/20/17 05:50 Direct Bilirubin 1.8 mg/dL (0.0-0.2) H D 09/09/17 05:00 AST 41 U/L (15-37) H 09/20/17 05:50 ALT < 6 U/L (12-78) L 09/20/17 05:50 Alkaline Phosphatase 208 U/L (45-117) H 09/20/17 05:50 Albumin 1.8 g/dl (3.4-5.0) L 09/20/17 05:50 Microbiology 09/17/17 16:14 Pleural Fluid Gram Stain - Final 09/17/17 16:14 Pleural Fluid Body Fluid Culture - Final NO GROWTH OF AEROBIC ORGANISMS AFTER 48 HOURS INCUBATION 09/17/17 16:14 Pleural Fluid Anaerobic Culture - Final NO ANAEROBES WERE ISOLATED 09/19/17 10:00 Leg - Right Lower Gram Stain - Final 09/19/17 10:00 Leg - Right Lower Wound Culture - Preliminary Diphtheroid/Corynebacterium Staphylococcus Coagulase Neg 09/19/17 10:23 Blood - Peripheral Venous Blood Culture - Preliminary NO GROWTH OBTAINED AFTER 24 HOURS, INCUBATION TO CONTINUE FOR 4 DAYS. 09/19/17 10:23 Blood - Peripheral Venous Blood Culture - Preliminary NO GROWTH OBTAINED AFTER 24 HOURS, INCUBATION TO CONTINUE FOR 4 DAYS. 09/17/17 16:14 Pleural Fluid AFB Smear Concentration - Preliminary 09/17/17 16:14 Pleural Fluid Mycobacterial Culture - Preliminary 09/17/17 16:14 Pleural Fluid MAGI Preparation - Preliminary 09/17/17 16:14 Pleural Fluid Fungal Culture - Preliminary 09/12/17 09:20 Blood - Peripheral Venous Blood Culture - Final NO GROWTH AFTER 5 DAYS INCUBATION 09/12/17 09:15 Blood - Peripheral Venous Blood Culture - Final NO GROWTH AFTER 5 DAYS INCUBATION 09/10/17 10:00 Blood - Peripheral Venous Blood Culture - Final NO GROWTH AFTER 5 DAYS INCUBATION 09/10/17 10:00 Blood - Peripheral Venous Blood Culture - Final NO GROWTH AFTER 5 DAYS INCUBATION 09/08/17 05:45 Blood - Peripheral Venous Blood Culture - Final NO GROWTH AFTER 5 DAYS INCUBATION 09/08/17 05:45 Blood - Peripheral Venous Blood Culture - Final NO GROWTH AFTER 5 DAYS INCUBATION 09/10/17 09:35 Sputum - Endotrachea Suction/Ventilator Gram Stain - Final 09/10/17 09:35 Sputum - Endotrachea Suction/Ventilator Sputum Culture - Final Yeast Like Organism 09/08/17 18:07 Pleural Fluid Gram Stain - Final 09/08/17 18:07 Pleural Fluid Body Fluid Culture - Final NO GROWTH OF AEROBIC ORGANISMS AFTER 48 HOURS INCUBATION 09/08/17 18:07 Pleural Fluid Anaerobic Culture - Final NO ANAEROBES WERE ISOLATED IMAGING: CXR (09/20/17): no significant change from prior Active Medications Acetaminophen (Tylenol -) 650 mg NR Q6H PRN PRN Reason: FEVER OR PAIN Last Admin: 09/16/17 18:27 Dose: 650 mg Albuterol/Ipratropium (Duoneb -) 1 amp NEB Q6H PRN PRN Reason: SHORTNESS OF BREATH Bacitracin (Bacitracin -) 1 applic TP DAILY [facility] Last Admin: 09/20/17 11:32 Dose: 1 applic Bacitracin/Polymyxin B Sulfate (Polysporin Ointment -) 1 applic TP DAILY [facility] Last Admin: 09/20/17 11:34 Dose: 1 applic Chlorhexidine Gluconate (Peridex -) 15 ml MM BID [facility] Last Admin: 09/20/17 21:25 Dose: Not Given Ferrous Sulfate (Feosol -) 325 mg PO DAILY [facility] Last Admin: 09/20/17 10:00 Dose: Not Given Folic Acid (Folic Acid -) 1 mg PO DAILY [facility] Last Admin: 09/20/17 10:00 Dose: Not Given Heparin Sodium (Porcine) (Heparin -) 1,000 unit IVPUSH PRN PRN PRN Reason: Heparin Heparin Sodium (Porcine) (Heparin -) 5,000 unit IVPUSH PRN PRN PRN Reason: Heparin Cefazolin Sodium (Ancef 1gm Ivpb (Pre-Docked)) 50 mls @ 100 mls/hr IVPB Q8H-IV [facility] Last Admin: 09/20/17 17:03 Dose: 100 mls/hr Acyclovir 900 mg/ Dextrose 268 mls @ 178.667 mls/hr IVPB DAILY [facility] Last Admin: 09/20/17 11:36 Dose: 178.667 mls/hr Heparin Sodium (Porcine) 25, (000 unit/ Sodium Chloride) 500 mls @ 20 mls/hr IV TITR [facility]; 1,000 UNIT/HR PRN Reason: Protocol Last Admin: 09/20/17 19:18 Dose: 20 mls/hr Sodium Chloride (1/2 Normal Saline) 1,000 mls @ 42 mls/hr IV ASDIR [facility] Last Admin: 09/20/17 19:44 Dose: 42 mls/hr Metoprolol Tartrate (Lopressor Injection -) 5 mg IVPUSH Q6H-IV [facility] Last Admin: 09/20/17 21:25 Dose: 5 mg Multivitamins/Minerals (Theragran-M) 1 each PO DAILY [facility] Last Admin: 09/20/17 10:00 Dose: Not Given Sevelamer Carbonate (Renvela -) 800 mg PO TIDCM [facility] Last Admin: 09/20/17 16:42 Dose: Not Given Thiamine HCl (Vitamin B1 -) 100 mg PO DAILY [facility] Last Admin: 09/20/17 10:00 Dose: Not Given ASSESSMENT/PLAN: 66yo man with PMH of EtOH abuse and HTN who is admitted (08/31) for acute hypoxic respiratory failure requiring mechanical ventilation (09/02 - 09/19) and sepsis 2/2 cavitary PNA. MSSA bacteremia cleared. ALISA (09/13) r/o endocarditis. Patient continues to have low grade fevers. Serial blood cultures collected , 09/10, 09/12 NGTD. Sputum cultures grew yeast-like organism and patient treated with Diflucan. RLE pustules noted on anterior norris, ID started acyclovir for possible suspicion of zoster; wound cultures showed only PMNS, no organisms #acute hypoxic respiratory failure -O2 as needed to maintain SpaO2>90% -suctioning via nasal trumpet prn -duo nebs, chest physiotherapy, incentive spirometer -fentanyl gtt for pain #sepsis 2/2 cavitary PNA -R chest tube draining to gracity -Started on Acyclovir (09/19) renally dosed, isolation -Abx per ID: Continue Cefazolin 1gm q8h (started 09/16) #Afib - CHADVASC score of 2 indicating AC -Cardiology following -consider PO amio for rate control (currently in NSR) -started heparin gtt, will do serial CBC with aPTT checks while CT in place #suspected chronic diastolic heart failure - ECHO 09/02/2017 rprobable preserved LV function, but can't R/O regional wall motion abnormality -metoprolol 25mg po BID #ALEXANDRA -Nephrology consulted -c3/c4 complement level wnl; PROSPER positive -Strict I&Os, hinse -Renal dose for meds #anemia s/p 2U PRBCs, FOBT neg, pleural fluid bloody -Cont Ferrous Sulfate 325 mg PO DAILY [facility] -Cont Sevelamer Carbonate (Renvela) 800 mg PO TID -Transfuse hgb<7 #EtOH abuse -Monitor for signs of EtOH withdrawal -Ativan 2mg IV q2h PRN -MVI, thiamine 100mg PO qd, folic acid 1mg PO daily #FEN -IVF at 42cc/hr -hyperphosphatemia noted -PO diet pending [employer]ELOPER eval #PPX -DVT - Hep gtt -GI - Pantoprazole 40mg IV daily #Dispo: continue ICU monitoring FULL code d/w Dr. Zakia Salter MD PGY-1 Visit type - Emergency Visit Emergency Visit: No - New Patient This patient is new to me today: No - Critical Care Critical Care patient: Yes Total Critical Care Time (in minutes): 45 Critical Care Statement: The care of this patient involved high complexity decision making to prevent further life threatening deterioration of the patient 's condition and/or to evaluate & treat vital organ system(s) failure or risk of failure.
[2017-09-20] MEDS ORDERED: PT OWN MED DRAWER 7, Y5N ONE (09:38)
[2017-09-20] MEDS: FERROUS SO4 325 MG TABLET (FP) PO SCH (10:00)
[2017-09-20] MEDS: FOLIC ACID 1 MG TABLET (FP) PO SCH (10:00)
[2017-09-20] MEDS: CHLORHEXIDINE GLUCONATE 0.12% 15ML CUP MM SCH ×2 (10:00→21:25)
[2017-09-20] MEDS: MULTIVITAMINS THER W-MINERALS COMBO TABLET (FP) PO SCH (10:00)
[2017-09-20] MEDS: THIAMINE HCL 100 MG TABLET (FP) PO SCH (10:00)
[2017-09-20] MEDS: METOPROLOL TARTRATE 25 MG TABLET (FP) NGT SCH (10:00)
[2017-09-20] MEDS: BACITRACIN 15 GM TUBE TOPICAL OINTMENT TP SCH (11:32)
[2017-09-20] MEDS: PANTOPRAZOLE SODIUM 40 MG VIAL IVPUSH SCH (11:34)
[2017-09-20] MEDS: BACITRACIN/POLYMYXIN B SULFATE 15 GM TUBE TP SCH (11:34)
[2017-09-20] MEDS: ACYCLOVIR INJECTION 900 MG in DEXTROSE 5%-WATER - 250 ML IVPB SCH (11:36)
--- NOTE | 2017-09-20 11:42 | PN ---
Teaching Attending Note Name of Resident: Anton Zamora ATTENDING PHYSICIAN STATEMENT I saw and evaluated the patient. I reviewed the resident's note and discussed the case with the resident. I agree with the resident's findings and plan as documented. SUBJECTIVE: Patient seen and examined in the ICU. Remains extubated but now on NIPPV. Awake and responsive and following commands. Pigtail intact with less drainage. No pressors. Congested cough. CXR: Some improvement Intake & Output 09/17/17 09/18/17 09/19/17 09/20/17 23:59 23:59 23:59 23:59 Intake Total 1987.4 2660.8 766.2 715 Output Total 2450 2145 1929 1941 Balance -462.6 515.8 -1162.8 -1226 Weight 203 lb 1 oz 202 lb 9.677 oz 204 lb 11.2 oz 200 lb 13.458 oz Last Vital Signs Temp Pulse Resp BP Pulse Ox 99 F 101 H 25 H 153/96 99 09/20/17 08:00 09/20/17 10:32 09/20/17 08:47 09/20/17 08:00 09/20/17 10:32 Active Medications Acetaminophen (Tylenol -) 650 mg NR Q6H PRN PRN Reason: FEVER OR PAIN Last Admin: 09/16/17 18:27 Dose: 650 mg Albuterol/Ipratropium (Duoneb -) 1 amp NEB Q6H PRN PRN Reason: SHORTNESS OF BREATH Bacitracin (Bacitracin -) 1 applic TP DAILY [facility] Last Admin: 09/20/17 11:32 Dose: 1 applic Bacitracin/Polymyxin B Sulfate (Polysporin Ointment -) 1 applic TP DAILY [facility] Last Admin: 09/20/17 11:34 Dose: 1 applic Chlorhexidine Gluconate (Peridex -) 15 ml MM BID [facility] Last Admin: 09/20/17 10:00 Dose: Not Given Fentanyl (Sublimaze Injection -) 50 mcg IVPUSH Q6H PRN PRN Reason: PAIN Stop: 09/20/17 11:59 Last Admin: 09/19/17 12:05 Dose: 50 mcg Ferrous Sulfate (Feosol -) 325 mg PO DAILY [facility] Last Admin: 09/20/17 10:00 Dose: Not Given Folic Acid (Folic Acid -) 1 mg PO DAILY [facility] Last Admin: 09/20/17 10:00 Dose: Not Given Cefazolin Sodium (Ancef 1gm Ivpb (Pre-Docked)) 50 mls @ 100 mls/hr IVPB Q8H-IV [facility] Last Admin: 09/20/17 11:32 Dose: 100 mls/hr Sodium Chloride (Normal Saline -) 1,000 mls @ 42 mls/hr IV ASDIR [facility] Last Admin: 09/19/17 20:40 Dose: 42 mls/hr Acyclovir 900 mg/ Dextrose 268 mls @ 178.667 mls/hr IVPB DAILY [facility] Last Admin: 09/20/17 11:36 Dose: 178.667 mls/hr Metoprolol Tartrate (Lopressor -) 25 mg NGT BID [facility] Last Admin: 09/20/17 10:00 Dose: Not Given Metoprolol Tartrate (Lopressor Injection -) 5 mg IVPUSH Q4H PRN PRN Reason: HYPERTENSION Last Admin: 09/19/17 22:07 Dose: 5 mg Multivitamins/Minerals (Theragran-M) 1 each PO DAILY [facility] Last Admin: 09/20/17 10:00 Dose: Not Given Pantoprazole Sodium (Protonix Iv) 40 mg IVPUSH DAILY [facility] Last Admin: 09/20/17 11:34 Dose: 40 mg Sevelamer Carbonate (Renvela -) 800 mg PO TIDCM [facility] Last Admin: 09/20/17 11:35 Dose: Not Given Thiamine HCl (Vitamin B1 -) 100 mg PO DAILY [facility] Last Admin: 09/20/17 10:00 Dose: Not Given Gen: Extubated and awake on NIPPV Heart: RRR Lung: bilateral coarse rhonchi, Right chest pigtail Abd: soft, nontender Ext: + edema Laboratory Results - last 24 hr 09/20/17 09/20/17 05:50 05:50 WBC 13.3 H RBC 2.81 L Hgb 8.3 L Hct 24.5 L MCV 87.4 MCH 29.5 MCHC 33.8 RDW 16.7 H Plt Count 319 MPV 6.6 L Neutrophils % 80.2 Lymphocytes % 7.2 L Monocytes % 7.2 Eosinophils % 4.9 H Basophils % 0.5 Sodium 139 Potassium 3.9 Chloride 104 Carbon Dioxide 22 Anion Gap 13 BUN 86 H Creatinine 3.6 H Creat Clearance w eGFR 17.00 Random Glucose 101 Calcium 8.5 Total Bilirubin 1.0 D AST 41 H ALT < 6 L Alkaline Phosphatase 208 H Total Protein 7.7 Albumin 1.8 L ASSESSMENT AND PLAN: Acute Hypoxic Respiratory Failure / component of ARDS physiology likely Staph Pneumonia MSSA Bacteremia -> Endocarditis ruled out Septic Shock Alcohol Dependence ARF AFib - Hold Lasix drip for now due to worsening renal function and patient is on Acyclovir - NIPPV as needed - ABX per ID - PO if safe to tolerate - DVT/GI prophylaxis - Follow renal function - Aspiration precautions - Follow CXR - Follow outputs from horace Griffin Critical care time spent in reviewing chart, evaluating patient and formulating plan 40 min
--- NOTE | 2017-09-20 13:21 | PN ---
Physical Exam: SUBJECTIVE: Patient seen and examined on bipap, changed tp vanturimask suction done through nasal trumpet, lot of secretions came out continue doing intermittent suctioning through nasal trumpet. OBJECTIVE: Vital Signs Period Temp Pulse Resp BP Sys/Jeff Pulse Ox Last 24 Hr 99 F-100.1 F 80-105 17-27 140-162/84-100 97-100 GENERAL: The patient is awake, alert, on venturi mask maintaing saturation of 100 on 50% o2. HEAD: Normal with no signs of trauma. EYES: PERRL, No ptosis. ENT: moist mucous membranes. NECK: Trachea midline, full range of motion, supple. LUNGS: decrease breath sound on right side. mild crackles on right side, HEART: regular, tachy, s1s2 normal ABDOMEN: Soft, nontender, nondistended, normoactive bowel sounds, no guarding, no rebound, . SKIN: Warm, dry, Laboratory Results - last 24 hr 09/20/17 09/20/17 05:50 05:50 WBC 13.3 H RBC 2.81 L Hgb 8.3 L Hct 24.5 L MCV 87.4 MCH 29.5 MCHC 33.8 RDW 16.7 H Plt Count 319 MPV 6.6 L Neutrophils % 80.2 Lymphocytes % 7.2 L Monocytes % 7.2 Eosinophils % 4.9 H Basophils % 0.5 Sodium 139 Potassium 3.9 Chloride 104 Carbon Dioxide 22 Anion Gap 13 BUN 86 H Creatinine 3.6 H Creat Clearance w eGFR 17.00 Random Glucose 101 Calcium 8.5 Total Bilirubin 1.0 D AST 41 H ALT < 6 L Alkaline Phosphatase 208 H Total Protein 7.7 Albumin 1.8 L Active Medications Generic Name Dose Route Start Last Admin Trade Name Freq PRN Reason Stop Dose Admin Acetaminophen 650 mg 09/07/17 05:53 09/16/17 18:27 Tylenol - NR 650 mg Q6H PRN Administration FEVER OR PAIN Albuterol/Ipratropium 1 amp 09/19/17 14:55 Duoneb - NEB Q6H PRN SHORTNESS OF BREATH Bacitracin 1 applic 09/02/17 10:00 09/20/17 11:32 Bacitracin - TP 1 applic DAILY [facility] Administration Bacitracin/Polymyxin B Sulfate 1 applic 09/16/17 20:45 09/20/17 11:34 Polysporin Ointment - TP 1 applic DAILY [facility] Administration Chlorhexidine Gluconate 15 ml 09/08/17 12:30 09/20/17 10:00 Peridex - MM Not Given BID [facility] Ferrous Sulfate 325 mg 09/05/17 12:00 09/20/17 10:00 Feosol - PO Not Given DAILY [facility] Folic Acid 1 mg 09/02/17 10:00 09/20/17 10:00 Folic Acid - PO Not Given DAILY [facility] Cefazolin Sodium 50 mls @ 100 mls/hr 09/16/17 10:00 09/20/17 11:32 Ancef 1gm Ivpb (Pre-Docked) IVPB 100 mls/hr Q8H-IV [facility] Administration Sodium Chloride 1,000 mls @ 42 mls/hr 09/19/17 20:30 09/19/17 20:40 Normal Saline - IV 42 mls/hr [facility] Administration Acyclovir 900 mg/ Dextrose 268 mls @ 178.667 mls/hr 09/20/17 10:00 09/20/17 11: 36 IVPB 178.667 mls/hr DAILY [facility] Administration Metoprolol Tartrate 25 mg 09/18/17 06:30 09/20/17 10:00 Lopressor - NGT Not Given BID [facility] Metoprolol Tartrate 5 mg 09/19/17 21:49 09/19/17 22:07 Lopressor Injection - IVPUSH 5 mg Q4H PRN Administration HYPERTENSION Multivitamins/Minerals 1 each 09/02/17 10:00 09/20/17 10:00 Theragran-M PO Not Given DAILY [facility] Pantoprazole Sodium 40 mg 09/09/17 18:45 09/20/17 11:34 Protonix Iv IVPUSH 40 mg DAILY [facility] Administration Sevelamer Carbonate 800 mg 09/12/17 17:30 09/20/17 11:35 Renvela - PO Not Given TIDCM [facility] Thiamine HCl 100 mg 09/02/17 10:00 09/20/17 10:00 Vitamin B1 - PO Not Given DAILY [facility] ASSESSMENT/PLAN: #acute hypoxic respiratory failure extubated on veturim spo2 100. keep spo2. 90 keep head end elevated take aspiration precaution on duoneb continue with chest physio incentive spirometry. fetanyl prn for pain. do intermittent suctioning from nasal trumpet. #sepsis 2/2 cavitary PNA, MSSA bacteremia -Abx per ID: Continue Cefazolin 1gm q8h (started 09/16), - chest tube in situ, hemorrhagic - cytology exudative follow culture report of chest fluid. #Afib - on amiodarone gtt, CHADVASC score of 2 -Cardiology following - on rate control with metoprolol #chronic diastolic heart failure (NYHA class II) - ECHO 09/02/2017 rprobable preserved LV function, but can't R/O regional wall motion abnormality -start metoprolol 25mg NGT BID #ALEXANDRA -Nephrology on case -Strict I&Os, hines - monitor creatnine - work up in progress. #anemia s/p 2U PRBCs, FOBT neg, pleural fluid bloody -Cont Ferrous Sulfate 325 mg PO DAILY [facility] -Cont Sevelamer Carbonate (Renvela) 800 mg PO TID -Transfuse hgb<7 #EtOH abuse -Monitor for signs of EtOH withdrawal -Ativan 2mg IV q2h PRN -MVI, thiamine 100mg PO qd, folic acid 1mg PO daily #FEN -avoid iv fluid, -repeat in am. - speech and swallow. Npo for now. #PPX -DVT - Hep SQ TID -GI - Pantoprazole 40mg IV daily Visit type - Emergency Visit Emergency Visit: Yes ED Registration Date: 08/31/17 Care time: The patient presented to the Emergency Department on the above date and was hospitalized for further evaluation of their emergent condition. - New Patient This patient is new to me today: No - Critical Care Critical Care patient: Yes Total Critical Care Time (in minutes): 45 Critical Care Statement: The care of this patient involved high complexity decision making to prevent further life threatening deterioration of the patient 's condition and/or to evaluate & treat vital organ system(s) failure or risk of failure.
--- NOTE | 2017-09-20 14:29 | CONSULT ---
Admitting History and Physical - Primary Care Physician PCP: Angela Koehler - Admission History of Present Illness: Pt is a 66 year old male who initially came in with shortness of breath and rib pain and was intubated for respiratory failure. He has history of etoh abuse, htn and pneumothorax. acyclovir added by ID for zosters Pt extubated yesterday. Selected Entries 09/18/17 09/18/17 09/18/17 02:00 10:00 13:41 Lunch Temperature 99 F 99.6 F 99.4 F 09/18/17 09/18/17 09/19/17 20:00 22:00 02:00 Lunch Temperature 100.4 F H 100.2 F H 100.4 F H 09/19/17 09/19/17 09/19/17 10:00 14:00 22:00 Lunch Temperature 99.9 F H 99.8 F H 99.9 F H 09/20/17 09/20/17 09/20/17 00:14 02:00 06:00 Lunch Temperature 100 F H 100.1 F H 99.6 F 09/20/17 09/20/17 08:00 08:52 Lunch NPO Temperature 99 F Laboratory Tests 09/18/17 09/19/17 09/20/17 05:50 05:28 05:50 WBC 11.5 H 15.4 H D 13.3 H History Source: Medical Record Limitations to Obtaining History: Clinical Condition - Past Medical History Cardiovascular: Yes: HTN Musculoskeletal: Yes: Other (left rib pain ) - Smoking History Smoking history: Former smoker Have you smoked in the past 12 months: No If you are a former smoker, when did you quit?: 42 years ago - Alcohol/Substance Use Hx Alcohol Use: Yes Number of Drinks Daily: 8 (He states he drinks about 8 16oz drinks per day) - Social History ADL: Independent History - Admission Reason For Visit: ALCOHOL WITHDRAWAL SYSDRONE, HYPONATREMIA - Diagnostics X-ray: Report Reviewed - General Mental Status: Awake and Alert, Confused, Flat Affect Attention: Distractible, Moderate Impairment Ability to Follow Directions: Poor Head/Neck Control: Poor - Hearing Hearing: Functional Speech Evaluation - Communication Primary Language: THAI Communication: Yes: Non-Communicable - Speech Production Able to Make Needs Known: Yes: Severely Impaired Intelligibility: Yes: Severely Impaired - Speech Characteristics Voice Loudness: Severely Soft/Quiet Voice Phonatory-based Quality: Yes: Weak, Vocal Wetness Voice, Other Observations: Yes: Throat Clearing - Language/Verbal Expression Functional Communication Status: Yes: Severely Impaired - Swallow Evaluation/Bedside Assessment Current Nutritional Intake: NPO Tracheostomy Present: No Patient on Ventilator: No Laryngeal Movement: Reduced Excursion, Labored,delay initiation, Reduced Velocity Oral Prep Time: Increased A-P Transit: Impaired Timing of Swallow: Absent (rare attempt with limited laryngeal elevation and vocal wetness with weak, unprotective cough.) Coughing/Throat Clear: Yes (on secretions) Recommendations - Speech Evaluation, Impression/Plan Impression: Rare swallow attempt with limited laryngeal elevation and vocal wetness with weak, unprotective cough. Likely aspirating on secretions and trial of tiny amount of puree. Aphonic/vocal wetness. Non verbal. Confused. - Dysphagia Impressions/Plan Swallowing Skills: Impaired Dysphagia Impressions: Severe Impairment, Ongoing Evaluation *Silent aspiration: cannot be R/O at bedside - Recommendations Diet Consistency: NPO (including medication), Other (NGT for medication/ nutrition until improved?) Liquids: NPO
--- NOTE | 2017-09-20 15:01 | PN ---
Teaching Attending Note Name of Resident: Lydia Salter ATTENDING PHYSICIAN STATEMENT I saw and evaluated the patient. I reviewed the resident's note and discussed the case with the resident. I agree with the resident's findings and plan as documented. SUBJECTIVE:resting comfortable. follows some commands. shakes head no to questions regarding pain OBJECTIVE: Last Vital Signs Temp Pulse Resp BP Pulse Ox 99 F 101 H 25 H 153/96 98 09/20/17 08:00 09/20/17 10:32 09/20/17 08:47 09/20/17 08:00 09/20/17 14:20 Intake & Output 09/17/17 09/18/17 09/19/17 09/20/17 23:59 23:59 23:59 23:59 Intake Total 1987.4 2660.8 766.2 715 Output Total 2450 2145 1929 1941 Balance -462.6 515.8 -1162.8 -1226 Weight 203 lb 1 oz 202 lb 9.677 oz 204 lb 11.2 oz 200 lb 13.458 oz General resting comfortable CV S1 S2 RRR no murmur/rub/gallop Lungs course breath sounds diffusely abdomen soft NT/ND Extremities trace pitting edema pustular rash on anterior norris of RLE ASSESSMENT AND PLAN: 66 yo M with PMH alcohol abuse, HTN who presented to the ER after being found on the floor. 1. Acute hypoxic respiratory failure- likely due to cavitary PNA. s/p extubated 09/19. several episodes of hypoxia. currently saturating 96% on 50% face mask. . crit care on board. 2. Sepsis secondary to cavitary healthcare-associated pneumonia, MSSA bacteremia - multiple low grade fevers. off pressors. negative for endocarditis. +chest tube with sangenous drainage with minimal output. chest tube either requires TPA to ensure that the line is patent. if not likely loculated indicating may need VATS. will consider CT surgery eval. on Cefazolin. pustular lesion noted on RLE. could be due to staph infection however still concern for shingles given dermatome distribution. on acylcovir, renal dosed. will need to monitor renal fx. ID on board. 3. New onset afib- rate controlled. off amio ggt. HR is controlled. cont betablocker for now. start hep ggt as no immediate indication for surgery. will convert to NOAC vs coumadin once medically optimized. 4. Acute kidney injury with hyperphosphatemia- Cr conitnuing to trend up. was started on lasix ggt. agree with lasix ggt d/c. renal dose medications. no indication for [employer] at this time. nephrology on board. 5. Anemia- s/p 2 units PRBC this admission. on iron supplementations. likely some due to traumatic placement of chest tube with sangenous drainage. will monitor closely. no indication for txn at this time. 6. Hepatic transaminitis- stable. will need to monitor closely as now on amio. US shows hepatosplenomegaly and fatty infiltration of liver 7. Thrombocytopenia- Secondary to alcohol, splenomegaly. now stable 8. HTN- initially hypotensive. now off pressors. cont medications 9. 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 DVT prophylaxis- heparin ggt 12. Stress ulcer prophylaxis- d/c protonix as extubated 13. MICU monitoring as breathing very labile The care of this patient involved high complexity decision making to prevent further life threatening deterioration of the patient's condition and/or to evaluate & treat vital organ system(s) failure or risk of failure. 40 mins
[2017-09-20] MEDS: METOPROLOL TARTRATE 5 MG/5 ML VIAL IVPUSH SCH ×2 (17:04→21:25)
--- NOTE | 2017-09-20 18:04 | PN ---
Progress Note, Physician History of Present Illness: Post extubation on 40% VM. - Current Medication List Current Medications: Active Medications Acetaminophen (Tylenol -) 650 mg NR Q6H PRN PRN Reason: FEVER OR PAIN Last Admin: 09/16/17 18:27 Dose: 650 mg Albuterol/Ipratropium (Duoneb -) 1 amp NEB Q6H PRN PRN Reason: SHORTNESS OF BREATH Bacitracin (Bacitracin -) 1 applic TP DAILY [facility] Last Admin: 09/20/17 11:32 Dose: 1 applic Bacitracin/Polymyxin B Sulfate (Polysporin Ointment -) 1 applic TP DAILY [facility] Last Admin: 09/20/17 11:34 Dose: 1 applic Chlorhexidine Gluconate (Peridex -) 15 ml MM BID [facility] Last Admin: 09/20/17 10:00 Dose: Not Given Ferrous Sulfate (Feosol -) 325 mg PO DAILY [facility] Last Admin: 09/20/17 10:00 Dose: Not Given Folic Acid (Folic Acid -) 1 mg PO DAILY [facility] Last Admin: 09/20/17 10:00 Dose: Not Given Heparin Sodium (Porcine) (Heparin -) 1,000 unit IVPUSH PRN PRN PRN Reason: Heparin Heparin Sodium (Porcine) (Heparin -) 5,000 unit IVPUSH PRN PRN PRN Reason: Heparin Cefazolin Sodium (Ancef 1gm Ivpb (Pre-Docked)) 50 mls @ 100 mls/hr IVPB Q8H-IV [facility] Last Admin: 09/20/17 17:03 Dose: 100 mls/hr Sodium Chloride (Normal Saline -) 1,000 mls @ 42 mls/hr IV ASDIR [facility] Last Admin: 09/19/17 20:40 Dose: 42 mls/hr Acyclovir 900 mg/ Dextrose 268 mls @ 178.667 mls/hr IVPB DAILY [facility] Last Admin: 09/20/17 11:36 Dose: 178.667 mls/hr Heparin Sodium (Porcine) 25, (000 unit/ Sodium Chloride) 500 mls @ 20 mls/hr IV TITR [facility]; 1,000 UNIT/HR PRN Reason: Protocol Metoprolol Tartrate (Lopressor Injection -) 5 mg IVPUSH Q6H-IV [facility] Last Admin: 09/20/17 17:04 Dose: 5 mg Multivitamins/Minerals (Theragran-M) 1 each PO DAILY [facility] Last Admin: 09/20/17 10:00 Dose: Not Given Sevelamer Carbonate (Renvela -) 800 mg PO TIDCM [facility] Last Admin: 09/20/17 16:42 Dose: Not Given Thiamine HCl (Vitamin B1 -) 100 mg PO DAILY [facility] Last Admin: 09/20/17 10:00 Dose: Not Given - Objective Vital Signs: Vital Signs Temperature 99.5 F 09/20/17 12:00 Pulse Rate 105 H 09/20/17 17:04 Respiratory Rate 22 09/20/17 14:00 Blood Pressure 149/69 09/20/17 17:04 O2 Sat by Pulse Oximetry (%) 98 09/20/17 14:20 Constitutional: Yes: No Distress, Calm Neck: Yes: Supple Cardiovascular: Yes: Regular Rate and Rhythm Respiratory: Yes: Regular, Diminished, On Venti-Mask, Other (Right chest pigtail ) Gastrointestinal: Yes: Normal Bowel Sounds, Soft, Abdomen, Obese Edema: No Labs: CBC, BMP 09/20/17 05:50 09/20/17 05:50 INR, PTT INR 0.96 (0.82-1.09) 09/01/17 09:05 - ....Imaging EKG: Report Reviewed (Tele: NSR) Problem List - Problems (1) Pneumonia Code(s): J18.9 - PNEUMONIA, UNSPECIFIED ORGANISM Qualifiers: Pneumonia type: aspiration pneumonia (2) Respiratory failure with hypoxia Code(s): J96.91 - RESPIRATORY FAILURE, UNSPECIFIED WITH HYPOXIA Qualifiers: Chronicity: acute Qualified Code(s): J96.01 - Acute respiratory failure with hypoxia; J96.01 - Acute respiratory failure with hypoxia; J96.01 - Acute respiratory failure with hypoxia (3) Staphylococcus aureus bacteremia Code(s): R78.81 - BACTEREMIA (4) Acute kidney injury Code(s): N17.9 - ACUTE KIDNEY FAILURE, UNSPECIFIED (6) Acute diastolic heart failure Code(s): I50.31 - ACUTE DIASTOLIC (CONGESTIVE) HEART FAILURE (7) History of alcohol abuse Code(s): Z87.898 - PERSONAL HISTORY OF OTHER SPECIFIED CONDITIONS (8) Anemia Code(s): D64.9 - ANEMIA, UNSPECIFIED Qualifiers: Anemia type: unspecified type Qualified Code(s): D64.9 - Anemia, unspecified; D64.9 - Anemia, unspecified Assessment/Plan 1. Acute hypoxic respiratory failure, remains intubated/sedated, pulmonary infiltrates/pulmonary edema improving 2. Cavitary pneumonia, MSSA bacteremia suspect septic emboli, post septic shock , negative for endocarditis on ALISA 3. Probable diastolic LV dysfunction with congestive heart failure, volume overload, resolving 4. History of alcohol dependence 5. Acute renal insufficiency 6. Anemia 7. Paroxysmal afib [id number] PLAN: 1. Wean FIO2 as tolerated, monitor CXR, BD as needed 2. Antibiotics as per ID service. Also on Acyclovir for possible shingles 3. Oral feeds as tolerated, DVT and GI prophylaxis 4. Metoprolol IV pending re-initiation of oral intake. 5. Heparin drip for now and then buttermaker continuous churn use such as Warfarin or NOAC is to be decided
--- NOTE | 2017-09-20 18:43 | PN ---
Progress Note, Physician History of Present Illness: Pt seen and examined at bedside. He was extubated yesterday. He is awake abut not answering questions. - Current Medication List Current Medications: Active Medications Acetaminophen (Tylenol -) 650 mg NR Q6H PRN PRN Reason: FEVER OR PAIN Last Admin: 09/16/17 18:27 Dose: 650 mg Albuterol/Ipratropium (Duoneb -) 1 amp NEB Q6H PRN PRN Reason: SHORTNESS OF BREATH Bacitracin (Bacitracin -) 1 applic TP DAILY [facility] Last Admin: 09/20/17 11:32 Dose: 1 applic Bacitracin/Polymyxin B Sulfate (Polysporin Ointment -) 1 applic TP DAILY [facility] Last Admin: 09/20/17 11:34 Dose: 1 applic Chlorhexidine Gluconate (Peridex -) 15 ml MM BID [facility] Last Admin: 09/20/17 10:00 Dose: Not Given Ferrous Sulfate (Feosol -) 325 mg PO DAILY [facility] Last Admin: 09/20/17 10:00 Dose: Not Given Folic Acid (Folic Acid -) 1 mg PO DAILY [facility] Last Admin: 09/20/17 10:00 Dose: Not Given Heparin Sodium (Porcine) (Heparin -) 1,000 unit IVPUSH PRN PRN PRN Reason: Heparin Heparin Sodium (Porcine) (Heparin -) 5,000 unit IVPUSH PRN PRN PRN Reason: Heparin Cefazolin Sodium (Ancef 1gm Ivpb (Pre-Docked)) 50 mls @ 100 mls/hr IVPB Q8H-IV [facility] Last Admin: 09/20/17 17:03 Dose: 100 mls/hr Sodium Chloride (Normal Saline -) 1,000 mls @ 42 mls/hr IV ASDIR [facility] Last Admin: 09/19/17 20:40 Dose: 42 mls/hr Acyclovir 900 mg/ Dextrose 268 mls @ 178.667 mls/hr IVPB DAILY [facility] Last Admin: 09/20/17 11:36 Dose: 178.667 mls/hr Heparin Sodium (Porcine) 25, (000 unit/ Sodium Chloride) 500 mls @ 20 mls/hr IV TITR [facility]; 1,000 UNIT/HR PRN Reason: Protocol Metoprolol Tartrate (Lopressor Injection -) 5 mg IVPUSH Q6H-IV [facility] Last Admin: 09/20/17 17:04 Dose: 5 mg Multivitamins/Minerals (Theragran-M) 1 each PO DAILY [facility] Last Admin: 09/20/17 10:00 Dose: Not Given Sevelamer Carbonate (Renvela -) 800 mg PO TIDCM [facility] Last Admin: 09/20/17 16:42 Dose: Not Given Thiamine HCl (Vitamin B1 -) 100 mg PO DAILY [facility] Last Admin: 09/20/17 10:00 Dose: Not Given - Objective Vital Signs: Vital Signs Temperature 99.5 F 09/20/17 12:00 Pulse Rate 105 H 09/20/17 17:04 Respiratory Rate 22 09/20/17 14:00 Blood Pressure 149/69 09/20/17 17:04 O2 Sat by Pulse Oximetry (%) 98 09/20/17 14:20 Constitutional: Yes: Calm Eyes: Yes: Conjunctiva Clear Cardiovascular: Yes: S1, S2 Respiratory: Yes: On Venti-Mask Gastrointestinal: Yes: Soft Genitourinary: Yes: Freeman Present Musculoskeletal: Yes: Muscle Weakness Edema: Yes Edema: LLE: Trace, RLE: Trace Neurological: Yes: Other (awake) Labs: CBC, BMP 09/20/17 05:50 09/20/17 05:50 INR, PTT INR 0.96 (0.82-1.09) 09/01/17 09:05 - ....Imaging Chest X-ray: Report Reviewed Problem List - Problems (1) Acute kidney injury Code(s): N17.9 - ACUTE KIDNEY FAILURE, UNSPECIFIED (2) Anemia Code(s): D64.9 - ANEMIA, UNSPECIFIED Qualifiers: Anemia type: unspecified type Qualified Code(s): D64.9 - Anemia, unspecified; D64.9 - Anemia, unspecified (3) Hyponatremia Code(s): E87.1 - HYPO-OSMOLALITY AND HYPONATREMIA (4) Respiratory failure with hypoxia Code(s): J96.91 - RESPIRATORY FAILURE, UNSPECIFIED WITH HYPOXIA Qualifiers: Chronicity: acute Qualified Code(s): J96.01 - Acute respiratory failure with hypoxia; J96.01 - Acute respiratory failure with hypoxia; J96.01 - Acute respiratory failure with hypoxia (5) Staphylococcus aureus bacteremia Code(s): R78.81 - BACTEREMIA (6) Withdrawal symptoms, alcohol Code(s): F10.239 - ALCOHOL DEPENDENCE WITH WITHDRAWAL, UNSPECIFIED Qualifiers : Complication of substance-induced condition: uncomplicated Qualified Code(s): F10.230 - Alcohol dependence with withdrawal, uncomplicated; F10.230 - Alcohol dependence with withdrawal, uncomplicated; F10.230 - Alcohol dependence with withdrawal, uncomplicated (7) Abuse, drug or alcohol Code(s): F19.10 - OTHER PSYCHOACTIVE SUBSTANCE ABUSE, UNCOMPLICATED Assessment/Plan Current Medications Generic Name Dose Route Start Last Admin Trade Name Freq PRN Reason Stop Dose Admin Acetaminophen 650 mg 09/07/17 05:53 09/16/17 18:27 Tylenol - NR 650 mg Q6H PRN Administration FEVER OR PAIN Albuterol/Ipratropium 1 amp 09/19/17 14:55 Duoneb - NEB Q6H PRN SHORTNESS OF BREATH Bacitracin 1 applic 09/02/17 10:00 09/20/17 11:32 Bacitracin - TP 1 applic DAILY [facility] Administration Bacitracin/Polymyxin B Sulfate 1 applic 09/16/17 20:45 09/20/17 11:34 Polysporin Ointment - TP 1 applic DAILY [facility] Administration Chlorhexidine Gluconate 15 ml 09/08/17 12:30 09/20/17 10:00 Peridex - MM Not Given BID [facility] Ferrous Sulfate 325 mg 09/05/17 12:00 09/20/17 10:00 Feosol - PO Not Given DAILY [facility] Folic Acid 1 mg 09/02/17 10:00 09/20/17 10:00 Folic Acid - PO Not Given DAILY [facility] Heparin Sodium (Porcine) 1,000 unit 09/20/17 17:42 Heparin - IVPUSH PRN PRN Heparin Heparin Sodium (Porcine) 5,000 unit 09/20/17 17:42 Heparin - IVPUSH PRN PRN Heparin Cefazolin Sodium 50 mls @ 100 mls/hr 09/16/17 10:00 09/20/17 17:03 Ancef 1gm Ivpb (Pre-Docked) IVPB 100 mls/hr Q8H-IV [facility] Administration Sodium Chloride 1,000 mls @ 42 mls/hr 09/19/17 20:30 09/19/17 20:40 Normal Saline - IV 42 mls/hr ASDIR [facility] Administration Acyclovir 900 mg/ Dextrose 268 mls @ 178.667 mls/hr 09/20/17 10:00 09/20/17 11: 36 IVPB 178.667 mls/hr DAILY [facility] Administration Heparin Sodium (Porcine) 25, 500 mls @ 20 mls/hr 09/20/17 17:45 000 unit/ Sodium Chloride IV TITR [facility] Protocol 1,000 UNIT/HR Metoprolol Tartrate 5 mg 09/20/17 16:31 09/20/17 17:04 Lopressor Injection - IVPUSH 5 mg Q6H-IV [facility] Administration Multivitamins/Minerals 1 each 09/02/17 10:00 09/20/17 10:00 Theragran-M PO Not Given DAILY [facility] Sevelamer Carbonate 800 mg 09/12/17 17:30 09/20/17 16:42 Renvela - PO Not Given TIDCM [facility] Thiamine HCl 100 mg 09/02/17 10:00 09/20/17 10:00 Vitamin B1 - PO Not Given DAILY [facility] Impression 1. ALEXANDRA 2. fluid overload 3. hypoalbuminemia 4. respiratory failure requiring intubation 5. anemia 6. etoh abuse 7. fevers 8. hypokalemia Plan - renal function is worsening - will repeat ua and lytes - repeat labs in am - will hold fluids for tonight - will continue to monitor volume status - cont oxygen and monitor pulse ox - will follow Dr Peres
[2017-09-20] MEDS: HEPARIN - 25,000 UNIT in SODIUM CHLORIDE 495 ML IV SCH (19:18)
[2017-09-20] MEDS: SODIUM CHLORIDE 0.45% 1,000 ML IV SCH (19:44)
[2017-09-21] MEDS: CEFAZOLIN (PRE-DOCKED) 50 ML IVPB SCH ×3 (01:09→17:05)
[2017-09-21 01:34] LABS: BASOPHIL 0.7 % (0-2.0); EOSINOPHIL 3.9 % (0-4.5); MCH 29.6 pg (25.7-33.7); MCHC 33.8 g/dl (32.0-35.9); MEAN CELL VOLUME 87.4 fl (80-96); MEAN PLT VOLUME 6.5 fl (7.5-11.1); NEUTROPHILS 79.5 % (42.8-82.8); PLATELET COUNT 263 K/MM3 (134-434); RDW 16.2 % (11.9-15.9); WHITE BLOOD COUNT 13.8 K/mm3 (4.0-10.0)
[2017-09-21] MEDS: METOPROLOL TARTRATE 5 MG/5 ML VIAL IVPUSH SCH ×4 (02:15→21:17)
[2017-09-21] MEDS: HEPARIN NA (PORCINE) 5,000 UNITS/ML 1ML VIAL IVPUSH PRN ×4 (02:15→23:00)
[2017-09-21 06:28] LABS: BASOPHIL 0.5 % (0-2.0); EOSINOPHIL 3.7 % (0-4.5); MCH 29.7 pg (25.7-33.7); MCHC 33.9 g/dl (32.0-35.9); MEAN CELL VOLUME 87.6 fl (80-96); MEAN PLT VOLUME 6.6 fl (7.5-11.1); NEUTROPHILS 79.7 % (42.8-82.8); PLATELET COUNT 257 K/MM3 (134-434); RDW 16.2 % (11.9-15.9); WHITE BLOOD COUNT 13.4 K/mm3 (4.0-10.0)
[2017-09-21 06:40] LABS: INR 1.14 (0.82-1.09); PROTHROMBIN TIME (PATIENT) 12.9 SEC (9.98-11.88)
[2017-09-21 07:07] LABS: ALBUMIN 1.7 g/dl (3.4-5.0); ANION GAP 12 (8-16); BILIRUBIN,TOTAL 0.6 mg/dL (0.2-1.0); CALCIUM 8.1 mg/dL (8.5-10.1); CO2 22 mmol/L (21-32); CREATININE 3.8 mg/dL (0.7-1.3); GLUCOSE,RANDOM 97 mg/dL (74-106); SGOT/AST 37 U/L (15-37); SGPT/ALT 6 U/L (12-78); TOT PROT 7.4 g/dl (6.4-8.2)
[2017-09-21 07:08] LABS: ALK PHOS 184 U/L (45-117)
--- NOTE | 2017-09-21 07:17 | PN ---
Progress Note, Physician Chief Complaint: ID Appears more comfortable today Cefazolin continues bacteremia MSSA - Current Medication List Current Medications: Active Medications Acetaminophen (Tylenol -) 650 mg NR Q6H PRN PRN Reason: FEVER OR PAIN Last Admin: 09/16/17 18:27 Dose: 650 mg Albuterol/Ipratropium (Duoneb -) 1 amp NEB Q6H PRN PRN Reason: SHORTNESS OF BREATH Bacitracin (Bacitracin -) 1 applic TP DAILY [facility] Last Admin: 09/20/17 11:32 Dose: 1 applic Bacitracin/Polymyxin B Sulfate (Polysporin Ointment -) 1 applic TP DAILY [facility] Last Admin: 09/20/17 11:34 Dose: 1 applic Chlorhexidine Gluconate (Peridex -) 15 ml MM BID [facility] Last Admin: 09/20/17 21:25 Dose: Not Given Ferrous Sulfate (Feosol -) 325 mg PO DAILY [facility] Last Admin: 09/20/17 10:00 Dose: Not Given Folic Acid (Folic Acid -) 1 mg PO DAILY [facility] Last Admin: 09/20/17 10:00 Dose: Not Given Heparin Sodium (Porcine) (Heparin -) 1,000 unit IVPUSH PRN PRN PRN Reason: Heparin Heparin Sodium (Porcine) (Heparin -) 5,000 unit IVPUSH PRN PRN PRN Reason: Heparin Last Admin: 09/21/17 02:15 Dose: 5,000 unit Cefazolin Sodium (Ancef 1gm Ivpb (Pre-Docked)) 50 mls @ 100 mls/hr IVPB Q8H-IV [facility] Last Admin: 09/21/17 01:09 Dose: 100 mls/hr Acyclovir 900 mg/ Dextrose 268 mls @ 178.667 mls/hr IVPB DAILY [facility] Last Admin: 09/20/17 11:36 Dose: 178.667 mls/hr Heparin Sodium (Porcine) 25, (000 unit/ Sodium Chloride) 500 mls @ 20 mls/hr IV TITR [facility]; 1,000 UNIT/HR PRN Reason: Protocol Last Titration: 09/21/17 02:15 Dose: 1,150 unit/hr Sodium Chloride (1/2 Normal Saline) 1,000 mls @ 42 mls/hr IV ASDIR [facility] Last Admin: 09/20/17 19:44 Dose: 42 mls/hr Metoprolol Tartrate (Lopressor Injection -) 5 mg IVPUSH Q6H-IV [facility] Last Admin: 09/21/17 02:15 Dose: 5 mg Multivitamins/Minerals (Theragran-M) 1 each PO DAILY [facility] Last Admin: 09/20/17 10:00 Dose: Not Given Sevelamer Carbonate (Renvela -) 800 mg PO TIDCM [facility] Last Admin: 09/20/17 16:42 Dose: Not Given Thiamine HCl (Vitamin B1 -) 100 mg PO DAILY [facility] Last Admin: 09/20/17 10:00 Dose: Not Given - Objective Vital Signs: Vital Signs Temperature 99.5 F 09/21/17 06:00 Pulse Rate 100 H 09/21/17 06:00 Respiratory Rate 25 H 09/21/17 06:00 Blood Pressure 154/86 09/21/17 06:00 O2 Sat by Pulse Oximetry (%) 100 09/20/17 21:00 Constitutional: Yes: Well Nourished, No Distress Neck: Yes: WNL, Supple Cardiovascular: Yes: Tachycardia, S1, S2. No: Murmur Respiratory: Yes: WNL, Regular, CTA Bilaterally, Rhonchi, Other (Pigtail catheter) Gastrointestinal: Yes: Soft. No: Tenderness Integumentary: Yes: Other (Pustular rash) Labs: CBC, BMP 09/21/17 06:10 INR, PTT INR 0.96 (0.82-1.09) 09/01/17 09:05 Problem List - Problems (1) Pneumonia Code(s): J18.9 - PNEUMONIA, UNSPECIFIED ORGANISM Qualifiers: Pneumonia type: aspiration pneumonia (2) Respiratory failure with hypoxia Code(s): J96.91 - RESPIRATORY FAILURE, UNSPECIFIED WITH HYPOXIA Qualifiers: Chronicity: acute Qualified Code(s): J96.01 - Acute respiratory failure with hypoxia; J96.01 - Acute respiratory failure with hypoxia; J96.01 - Acute respiratory failure with hypoxia (3) Staphylococcus aureus bacteremia Code(s): R78.81 - BACTEREMIA (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 09/19/17 10:23 Blood - Peripheral Venous Blood Culture - Preliminary NO GROWTH OBTAINED AFTER 24 HOURS, INCUBATION TO CONTINUE FOR 4 DAYS. 09/19/17 10:00 Leg - Right Lower Wound Culture - Preliminary Diphtheroid/Corynebacterium Staphylococcus Coagulase Neg 09/17/17 16:14 Pleural Fluid MAGI Preparation - Preliminary 09/17/17 16:14 Pleural Fluid Fungal Culture - Preliminary 09/17/17 16:14 Pleural Fluid AFB Smear Concentration - Preliminary 09/17/17 16:14 Pleural Fluid Mycobacterial Culture - Preliminary Laboratory Tests 08/31/17 09/02/17 09/21/17 13:05 05:00 06:10 WBC 13.4 H Hct 23.8 L Plt Count 257 BUN Creatinine Creat Clearance w eGFR AST ALT Alkaline Phosphatase HIV 1&2 Antibody Screen Negative HIV P24 Antigen Negative TB Test (QFT) Indeterminate 09/21/17 06:10 WBC Hct Plt Count BUN 91 H Creatinine 3.8 H Creat Clearance w eGFR 15.97 AST 37 ALT 6 L Alkaline Phosphatase 184 H HIV 1&2 Antibody Screen HIV P24 Antigen TB Test (QFT) Assessment S/P respiratory failure Now extubated MSSA with cavitary pneumonia Bilateral pleural effusions Pig tail catheter right side Pustular lesions ? shingles ( culture skin north) not MSSA Acute renal failure worsened by acyclovir Elevated alk phos likely fatty liver Plan Continue Cefazolin Chest tube drainage minimal Moniter low grade temp WBC also low grade Renal f/u ( for now need acyclovir will try to stop soon) Esau EMERY Critical care time spent 38 mins Esau EMERY
--- NOTE | 2017-09-21 08:21 | PN ---
Progress Note (short form) - Note Progress Note: shakes head no to questions of pain. Current Medications Generic Name Dose Route Start Last Admin Trade Name Freq PRN Reason Stop Dose Admin Acetaminophen 650 mg 09/07/17 05:53 09/16/17 18:27 Tylenol - NR 650 mg Q6H PRN Administration FEVER OR PAIN Albuterol/Ipratropium 1 amp 09/19/17 14:55 Duoneb - NEB Q6H PRN SHORTNESS OF BREATH Bacitracin 1 applic 09/02/17 10:00 09/20/17 11:32 Bacitracin - TP 1 applic DAILY [facility] Administration Bacitracin/Polymyxin B Sulfate 1 applic 09/16/17 20:45 09/20/17 11:34 Polysporin Ointment - TP 1 applic DAILY [facility] Administration Chlorhexidine Gluconate 15 ml 09/08/17 12:30 09/20/17 21:25 Peridex - MM Not Given BID [facility] Ferrous Sulfate 325 mg 09/05/17 12:00 09/20/17 10:00 Feosol - PO Not Given DAILY [facility] Folic Acid 1 mg 09/02/17 10:00 09/20/17 10:00 Folic Acid - PO Not Given DAILY [facility] Heparin Sodium (Porcine) 1,000 unit 09/20/17 17:42 Heparin - IVPUSH PRN PRN Heparin Heparin Sodium (Porcine) 5,000 unit 09/20/17 17:42 09/21/17 02:15 Heparin - IVPUSH 5,000 unit PRN PRN Administration Heparin Cefazolin Sodium 50 mls @ 100 mls/hr 09/16/17 10:00 09/21/17 01:09 Ancef 1gm Ivpb (Pre-Docked) IVPB 100 mls/hr Q8H-IV [facility] Administration Acyclovir 900 mg/ Dextrose 268 mls @ 178.667 mls/hr 09/20/17 10:00 09/20/17 11: 36 IVPB 178.667 mls/hr DAILY [facility] Administration Heparin Sodium (Porcine) 25, 500 mls @ 20 mls/hr 09/20/17 17:45 09/21/17 02:15 000 unit/ Sodium Chloride IV 1,150 unit/hr TITR [facility] Titration Protocol 1,000 UNIT/HR Sodium Chloride 1,000 mls @ 42 mls/hr 09/20/17 19:15 09/20/17 19:44 1/2 Normal Saline IV 42 mls/hr ASDIR [facility] Administration Metoprolol Tartrate 5 mg 09/20/17 16:31 09/21/17 02:15 Lopressor Injection - IVPUSH 5 mg Q6H-IV [facility] Administration Multivitamins/Minerals 1 each 09/02/17 10:00 09/20/17 10:00 Theragran-M PO Not Given DAILY [facility] Sevelamer Carbonate 800 mg 09/12/17 17:30 09/20/17 16:42 Renvela - PO Not Given TIDCM [facility] Thiamine HCl 100 mg 09/02/17 10:00 09/20/17 10:00 Vitamin B1 - PO Not Given DAILY [facility] Last Vital Signs Temp Pulse Resp BP Pulse Ox 99.5 F 100 H 32 H 149/90 100 09/21/17 08:00 09/21/17 08:00 09/21/17 08:00 09/21/17 08:00 09/20/17 21:00 Intake & Output 09/18/17 09/19/17 09/20/17 09/21/17 23:59 23:59 23:59 23:59 Intake Total 2660.8 766.2 715 815 Output Total 2145 1929 3351 948 Balance 515.8 -1162.8 -2636 -133 Weight 202 lb 9.677 oz 204 lb 11.2 oz 200 lb 13.458 oz 193 lb 4.8 oz General resting comfortable, follow simple commands CV S1 S2 RRR no murmur/rub/gallop Lungs course breath sounds diffusely decreased breath sounds at bases abdomen soft NT/ND Extremities trace pitting edema pustular rash on anterior norris of RLE, moves all 4 extremities strength L >R CBCD WBC 13.4 K/mm3 (4.0-10.0) H 09/21/17 06:10 RBC 2.71 M/mm3 (4.00-5.60) L 09/21/17 06:10 Hgb 8.1 GM/dL (11.7-16.9) L 09/21/17 06:10 Hct 23.8 % (35.4-49) L 09/21/17 06:10 MCV 87.6 fl (80-96) 09/21/17 06:10 MCHC 33.9 g/dl (32.0-35.9) 09/21/17 06:10 RDW 16.2 % (11.9-15.9) H 09/21/17 06:10 Plt Count 257 K/MM3 (134-434) 09/21/17 06:10 MPV 6.6 fl (7.5-11.1) L 09/21/17 06:10 CMP Sodium 142 mmol/L (136-145) 09/21/17 06:10 Potassium 3.8 mmol/L (3.5-5.1) 09/21/17 06:10 Chloride 108 mmol/L (98-107) H 09/21/17 06:10 Carbon Dioxide 22 mmol/L (21-32) 09/21/17 06:10 Anion Gap 12 (8-16) 09/21/17 06:10 BUN 91 mg/dL (7-18) H 09/21/17 06:10 Creatinine 3.8 mg/dL (0.7-1.3) H 09/21/17 06:10 Creat Clearance w eGFR 15.97 (>60) 09/21/17 06:10 Calcium 8.1 mg/dL (8.5-10.1) L 09/21/17 06:10 Total Bilirubin 0.6 mg/dL (0.2-1.0) D 09/21/17 06:10 AST 37 U/L (15-37) 09/21/17 06:10 ALT 6 U/L (12-78) L 09/21/17 06:10 Alkaline Phosphatase 184 U/L (45-117) H 09/21/17 06:10 Total Protein 7.4 g/dl (6.4-8.2) 09/21/17 06:10 Albumin 1.7 g/dl (3.4-5.0) L 09/21/17 06:10 ASSESSMENT AND PLAN: 66 yo M with PMH alcohol abuse, HTN who presented to the ER after being found on the floor. 1. Acute hypoxic respiratory failure- likely due to cavitary PNA. s/p extubated 09/19. on face mask over night. currently 100% on 4L NC. crit care on board. 2. Sepsis secondary to cavitary healthcare-associated pneumonia, MSSA bacteremia - multiple low grade fevers. Tm 100.8. pig tail draining minimal sangenous from R chest. no significant improvement on CXR. effusion is likely loculated and may require more aggressive management. will monitor for now as clinically improving. on Cefazolin. also questionable pustular lesions on RLE. on acyclovir. all cx negative. ID on board. 3. New onset afib- rate controlled. metoprolol IVP prn. on hep ggt. will convert to NOAC vs coumadin once medically optimized. 4. Acute kidney injury with hyperphosphatemia- Cr conitnuing to trend up. on lasix ggt <24H and continuing to rise. also on acyclovir. if continues to worsen may need to stop antiviral therapy. good UOP. nephrology on board. 5. Anemia- s/p 2 units PRBC this admission. on iron supplementations. no indication for txn at this time. 6. Hepatic transaminitis- stable. US shows hepatosplenomegaly and fatty infiltration of liver 7. Thrombocytopenia- Secondary to alcohol, splenomegaly. now stable 8. HTN- initially hypotensive. now off pressors. cont medications 9. 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 DVT prophylaxis- heparin ggt 12. Dysphagia-likely due to weakness. maintain NPO including medications. on TF. nutrition on board 13. MICU monitoring as breathing very labile The care of this patient involved high complexity decision making to prevent further life threatening deterioration of the patient's condition and/or to evaluate & treat vital organ system(s) failure or risk of failure. 35 mins Visit type - Emergency Visit Emergency Visit: Yes ED Registration Date: 08/31/17 Care time: The patient presented to the Emergency Department on the above date and was hospitalized for further evaluation of their emergent condition. - New Patient This patient is new to me today: No - Critical Care Critical Care patient: Yes Total Critical Care Time (in minutes): 35 Critical Care Statement: The care of this patient involved high complexity decision making to prevent further life threatening deterioration of the patient 's condition and/or to evaluate & treat vital organ system(s) failure or risk of failure. - Discharge Referral Referred to [facility] No
[2017-09-21] MEDS: SEVELAMER CARBONATE 800 MG TAB (FP) PO SCH ×3 (08:24→17:06)
[2017-09-21] MEDS: ACYCLOVIR INJECTION 900 MG in DEXTROSE 5%-WATER - 250 ML IVPB SCH (09:09)
[2017-09-21] MEDS: BACITRACIN 15 GM TUBE TOPICAL OINTMENT TP SCH (09:12)
[2017-09-21] MEDS: BACITRACIN/POLYMYXIN B SULFATE 15 GM TUBE TP SCH (09:13)
[2017-09-21] MEDS: FERROUS SO4 325 MG TABLET (FP) PO SCH (09:13)
[2017-09-21] MEDS: CHLORHEXIDINE GLUCONATE 0.12% 15ML CUP MM SCH ×2 (09:13→23:07)
[2017-09-21] MEDS: FOLIC ACID 1 MG TABLET (FP) PO SCH (09:13)
[2017-09-21] MEDS: THIAMINE HCL 100 MG TABLET (FP) PO SCH (09:14)
[2017-09-21] MEDS: MULTIVITAMINS THER W-MINERALS COMBO TABLET (FP) PO SCH (09:14)
--- NOTE | 2017-09-21 12:38 | PN ---
Progress Note (short form) - Note Progress Note: Progress Note (short form) - Note Progress Note: Seen and examined in ICU 24HR -remains extubated -weak cough but oxygenating ok -low grade temp Vital Signs Temp 99.2 F 09/21/17 12:00 Pulse 104 H 09/21/17 12:00 Resp 24 09/21/17 12:00 BP 129/83 09/21/17 12:00 Pulse Ox 100 09/21/17 10:05 Intake & Output 09/20/17 09/21/17 09/21/17 23:59 11:59 23:59 Intake Total 815 318 Output Total 1400 948 Balance -1400 -133 318 Weight 87.679 kg Intake: IV 765 Heparin - 25,000 Unit In 261 Normal Saline - 495 ml @ 1,000 UNIT/HR 20 mls/hr IV TITR [facility] Rx#: [id number] 1/2 Normal Saline 1,000 504 ml @ 42 mls/hr IV ASDIR [facility] Rx#:[id number] IVPB 50 318 Output: Chest Tube Drainage 48 Right Lateral Chest 48 Urine 1400 900 [facility] 1400 900 Other: Voiding Method Indwelling Catheter Indwelling Catheter Bowel Movement Yes Weight Measurement Method Built in [facility] Exam: extubated, HEENT: PERRL, no JVD CV: tachy, unable to appreciate m/r/g Pulm: crackles, diminished in bases, R CT with dark fluid, not tidaling Abd: obese, SNTND, +BS Ext: warm, +2 pulses, +1 edema Neuro: WILKINSON x 4 Current Medications Acetaminophen (Tylenol -) 650 mg NR Q6H PRN PRN Reason: FEVER OR PAIN Last Admin: 09/16/17 18:27 Dose: 650 mg Albuterol/Ipratropium (Duoneb -) 1 amp NEB Q6H PRN PRN Reason: SHORTNESS OF BREATH Bacitracin (Bacitracin -) 1 applic TP DAILY [facility] Last Admin: 09/21/17 09:12 Dose: 1 applic Bacitracin/Polymyxin B Sulfate (Polysporin Ointment -) 1 applic TP DAILY [facility] Last Admin: 09/21/17 09:13 Dose: 1 applic Chlorhexidine Gluconate (Peridex -) 15 ml MM BID [facility] Last Admin: 09/21/17 09:13 Dose: Not Given Ferrous Sulfate (Feosol -) 325 mg PO DAILY [facility] Last Admin: 09/21/17 09:13 Dose: Not Given Folic Acid (Folic Acid -) 1 mg PO DAILY [facility] Last Admin: 09/21/17 09:13 Dose: Not Given Heparin Sodium (Porcine) (Heparin -) 1,000 unit IVPUSH PRN PRN PRN Reason: Heparin Last Admin: 09/21/17 08:40 Dose: 1,000 unit Heparin Sodium (Porcine) (Heparin -) 5,000 unit IVPUSH PRN PRN PRN Reason: Heparin Last Admin: 09/21/17 02:15 Dose: 5,000 unit Cefazolin Sodium (Ancef 1gm Ivpb (Pre-Docked)) 50 mls @ 100 mls/hr IVPB Q8H-IV [facility] Last Admin: 09/21/17 09:11 Dose: 100 mls/hr Acyclovir 900 mg/ Dextrose 268 mls @ 178.667 mls/hr IVPB DAILY [facility] Last Admin: 09/21/17 09:09 Dose: 178.667 mls/hr Heparin Sodium (Porcine) 25, (000 unit/ Sodium Chloride) 500 mls @ 20 mls/hr IV TITR KINGS; 1,000 UNIT/HR PRN Reason: Protocol Last Titration: 09/21/17 08:40 Dose: 1,250 unit/hr Sodium Chloride (1/2 Normal Saline) 1,000 mls @ 42 mls/hr IV ASDIR [facility] Last Admin: 09/20/17 19:44 Dose: 42 mls/hr Metoprolol Tartrate (Lopressor Injection -) 5 mg IVPUSH Q6H-IV [facility] Last Admin: 09/21/17 09:19 Dose: 5 mg Multivitamins/Minerals (Theragran-M) 1 each PO DAILY [facility] Last Admin: 09/21/17 09:14 Dose: Not Given Sevelamer Carbonate (Renvela -) 800 mg PO TIDCM [facility] Last Admin: 09/21/17 12:08 Dose: Not Given Thiamine HCl (Vitamin B1 -) 100 mg PO DAILY [facility] Last Admin: 09/21/17 09:14 Dose: Not Given CXR: reviewed, CT in place Microbiology 09/19/17 10:23 Blood - Peripheral Venous Blood Culture - Preliminary NO GROWTH OBTAINED AFTER 48 HOURS, INCUBATION TO CONTINUE FOR 3 DAYS. 09/19/17 10:23 Blood - Peripheral Venous Blood Culture - Preliminary NO GROWTH OBTAINED AFTER 48 HOURS, INCUBATION TO CONTINUE FOR 3 DAYS. 09/17/17 16:14 Pleural Fluid Gram Stain - Final 09/17/17 16:14 Pleural Fluid Body Fluid Culture - Final NO GROWTH OF AEROBIC ORGANISMS AFTER 48 HOURS INCUBATION 09/17/17 16:14 Pleural Fluid Anaerobic Culture - Final NO ANAEROBES WERE ISOLATED 09/19/17 10:00 Leg - Right Lower Gram Stain - Final 09/19/17 10:00 Leg - Right Lower Wound Culture - Preliminary Diphtheroid/Corynebacterium Staphylococcus Coagulase Neg 09/17/17 16:14 Pleural Fluid AFB Smear Concentration - Preliminary 09/17/17 16:14 Pleural Fluid Mycobacterial Culture - Preliminary 09/17/17 16:14 Pleural Fluid MAGI Preparation - Preliminary 09/17/17 16:14 Pleural Fluid Fungal Culture - Preliminary 09/12/17 09:20 Blood - Peripheral Venous Blood Culture - Final NO GROWTH AFTER 5 DAYS INCUBATION 09/12/17 09:15 Blood - Peripheral Venous Blood Culture - Final NO GROWTH AFTER 5 DAYS INCUBATION 09/10/17 10:00 Blood - Peripheral Venous Blood Culture - Final NO GROWTH AFTER 5 DAYS INCUBATION 09/10/17 10:00 Blood - Peripheral Venous Blood Culture - Final NO GROWTH AFTER 5 DAYS INCUBATION 09/08/17 05:45 Blood - Peripheral Venous Blood Culture - Final NO GROWTH AFTER 5 DAYS INCUBATION 09/08/17 05:45 Blood - Peripheral Venous Blood Culture - Final NO GROWTH AFTER 5 DAYS INCUBATION 09/10/17 09:35 Sputum - Endotrachea Suction/Ventilator Gram Stain - Final 09/10/17 09:35 Sputum - Endotrachea Suction/Ventilator Sputum Culture - Final Yeast Like Organism 09/08/17 18:07 Pleural Fluid Gram Stain - Final 09/08/17 18:07 Pleural Fluid Body Fluid Culture - Final NO GROWTH OF AEROBIC ORGANISMS AFTER 48 HOURS INCUBATION 09/08/17 18:07 Pleural Fluid Anaerobic Culture - Final NO ANAEROBES WERE ISOLATED 09/10/17 09:35 Urine - Urine [facility] Urine Culture - Final NO GROWTH OBTAINED 09/06/17 11:02 Blood - Peripheral Venous Blood Culture - Final NO GROWTH AFTER 5 DAYS INCUBATION 09/10/17 09:05 Stool Clostridium difficile Antigen (KHRIS) - Final 09/10/17 09:05 Stool Clostridium difficile Toxin Assay - Final 09/08/17 18:00 Pleural Fluid AFB Smear Concentration - Final 09/08/17 18:00 Pleural Fluid Mycobacterial Culture - Preliminary 09/06/17 11:02 Blood - Peripheral Venous Blood Culture - Final Staphylococcus Aureus 09/08/17 18:00 Pleural Fluid MAGI Preparation - Preliminary 09/08/17 18:00 Pleural Fluid Fungal Culture - Preliminary 09/04/17 08:15 Blood - Peripheral Venous Blood Culture - Final NO GROWTH AFTER 5 DAYS INCUBATION 09/04/17 08:00 Blood - Peripheral Venous Blood Culture - Final NO GROWTH AFTER 5 DAYS INCUBATION 09/05/17 21:00 Sputum - Endotrachea Suction/Ventilator Gram Stain - Final 09/05/17 21:00 Sputum - Endotrachea Suction/Ventilator Sputum Culture - Final Yeast Like Organism 09/06/17 10:20 Stool Clostridium difficile Antigen (KHRIS) - Final 09/06/17 10:20 Stool Clostridium difficile Toxin Assay - Final 09/02/17 00:00 Sputum - Endotracheal Suction W/O Vent Gram Stain - Final 09/02/17 00:00 Sputum - Endotracheal Suction W/O Vent Sputum Culture - Final Yeast Like Organism 09/03/17 12:15 Urine - Urine - Catheterized Urine Culture - Final NO GROWTH OBTAINED 09/01/17 05:00 Blood - Peripheral Venous Blood Culture - Final Staphylococcus Aureus 09/01/17 00:01 Blood - Peripheral Venous Blood Culture - Final Staphylococcus Aureus 09/01/17 15:50 Blood - Peripheral Venous Blood Culture - Final Staphylococcus Aureus 09/01/17 15:55 Blood - Peripheral Venous Blood Culture - Final Staphylococcus Aureus 08/31/17 23:22 Urine - Urine Clean Catch Urine Culture - Final Contaminated: Please Repeat ASSESSMENT AND PLAN: Acute Hypoxic Respiratory Failure / component of ARDS physiology likely Staph Pneumonia MSSA Bacteremia -> Endocarditis ruled out Septic Shock Alcohol Dependence ARF AFib - hold diuresis - NIPPV as needed at night and when sleeping - ABX per ID - speech and swallow eval - DVT/GI prophylaxis - No acute indication for renal replacement, Nephrology following - Aspiration precautions - PRN cxr - Follow outputs from horace--->hiram Silva ACNP Pulm/CCM CCT: 35m Problem List - Problems (1) Respiratory failure with hypoxia Code(s): J96.91 - RESPIRATORY FAILURE, UNSPECIFIED WITH HYPOXIA Qualifiers: Chronicity: acute Qualified Code(s): J96.01 - Acute respiratory failure with hypoxia; J96.01 - Acute respiratory failure with hypoxia; J96.01 - Acute respiratory failure with hypoxia (2) Pneumonia Code(s): J18.9 - PNEUMONIA, UNSPECIFIED ORGANISM Qualifiers: Pneumonia type: aspiration pneumonia (3) Abuse, drug or alcohol Code(s): F19.10 - OTHER PSYCHOACTIVE SUBSTANCE ABUSE, UNCOMPLICATED
--- NOTE | 2017-09-21 14:30 | PN ---
Progress Note, Physician Chief Complaint: Events noted Extubated on O2 History of Present Illness: Patient was seen and examined in ICU. Awake Periods of tachycardia - Current Medication List Current Medications: Active Medications Acetaminophen (Tylenol -) 650 mg NR Q6H PRN PRN Reason: FEVER OR PAIN Last Admin: 09/16/17 18:27 Dose: 650 mg Albuterol/Ipratropium (Duoneb -) 1 amp NEB Q6H PRN PRN Reason: SHORTNESS OF BREATH Bacitracin (Bacitracin -) 1 applic TP DAILY [facility] Last Admin: 09/21/17 09:12 Dose: 1 applic Bacitracin/Polymyxin B Sulfate (Polysporin Ointment -) 1 applic TP DAILY [facility] Last Admin: 09/21/17 09:13 Dose: 1 applic Chlorhexidine Gluconate (Peridex -) 15 ml MM BID [facility] Last Admin: 09/21/17 09:13 Dose: Not Given Ferrous Sulfate (Feosol -) 325 mg PO DAILY [facility] Last Admin: 09/21/17 09:13 Dose: Not Given Folic Acid (Folic Acid -) 1 mg PO DAILY [facility] Last Admin: 09/21/17 09:13 Dose: Not Given Heparin Sodium (Porcine) (Heparin -) 1,000 unit IVPUSH PRN PRN PRN Reason: Heparin Last Admin: 09/21/17 08:40 Dose: 1,000 unit Heparin Sodium (Porcine) (Heparin -) 5,000 unit IVPUSH PRN PRN PRN Reason: Heparin Last Admin: 09/21/17 02:15 Dose: 5,000 unit Cefazolin Sodium (Ancef 1gm Ivpb (Pre-Docked)) 50 mls @ 100 mls/hr IVPB Q8H-IV [facility] Last Admin: 09/21/17 09:11 Dose: 100 mls/hr Acyclovir 900 mg/ Dextrose 268 mls @ 178.667 mls/hr IVPB DAILY [facility] Last Admin: 09/21/17 09:09 Dose: 178.667 mls/hr Heparin Sodium (Porcine) 25, (000 unit/ Sodium Chloride) 500 mls @ 20 mls/hr IV TITR KINGS; 1,000 UNIT/HR PRN Reason: Protocol Last Titration: 09/21/17 08:40 Dose: 1,250 unit/hr Sodium Chloride (1/2 Normal Saline) 1,000 mls @ 42 mls/hr IV ASDIR [facility] Last Admin: 09/20/17 19:44 Dose: 42 mls/hr Metoprolol Tartrate (Lopressor Injection -) 5 mg IVPUSH Q6H-IV [facility] Last Admin: 09/21/17 09:19 Dose: 5 mg Multivitamins/Minerals (Theragran-M) 1 each PO DAILY [facility] Last Admin: 09/21/17 09:14 Dose: Not Given Sevelamer Carbonate (Renvela -) 800 mg PO TIDCM [facility] Last Admin: 09/21/17 12:08 Dose: Not Given Thiamine HCl (Vitamin B1 -) 100 mg PO DAILY [facility] Last Admin: 09/21/17 09:14 Dose: Not Given - Objective Vital Signs: Vital Signs Temperature 99.4 F 09/21/17 14:00 Pulse Rate 103 H 09/21/17 14:00 Respiratory Rate 26 H 09/21/17 14:00 Blood Pressure 146/73 09/21/17 14:00 O2 Sat by Pulse Oximetry (%) 98 09/21/17 12:24 Cardiovascular: Yes: Regular Rate and Rhythm, Tachycardia, S1, S2 Respiratory: Yes: Diminished Gastrointestinal: Yes: Normal Bowel Sounds, Soft, Abdomen, Obese. No: Tenderness Edema: No Labs: CBC, BMP 09/21/17 06:10 09/21/17 06:10 INR, PTT INR 1.14 (0.82-1.09) 09/21/17 06:10 Problem List - Problems (1) Acute diastolic heart failure Code(s): I50.31 - ACUTE DIASTOLIC (CONGESTIVE) HEART FAILURE (2) Anemia Code(s): D64.9 - ANEMIA, UNSPECIFIED Qualifiers: Anemia type: unspecified type Qualified Code(s): D64.9 - Anemia, unspecified; D64.9 - Anemia, unspecified (3) History of alcohol abuse Code(s): Z87.898 - PERSONAL HISTORY OF OTHER SPECIFIED CONDITIONS (4) Pneumonia Code(s): J18.9 - PNEUMONIA, UNSPECIFIED ORGANISM Qualifiers: Pneumonia type: aspiration pneumonia (5) Respiratory failure with hypoxia Code(s): J96.91 - RESPIRATORY FAILURE, UNSPECIFIED WITH HYPOXIA Qualifiers: Chronicity: acute Qualified Code(s): J96.01 - Acute respiratory failure with hypoxia; J96.01 - Acute respiratory failure with hypoxia; J96.01 - Acute respiratory failure with hypoxia (7) Abuse, drug or alcohol Code(s): F19.10 - OTHER PSYCHOACTIVE SUBSTANCE ABUSE, UNCOMPLICATED Assessment/Plan 1. Acute hypoxic respiratory failure, extubated, pulmonary infiltrates/ pulmonary edema improving 2. Cavitary pneumonia, MSSA bacteremia suspect septic emboli, post septic shock , negative for endocarditis on ALISA 3. Probable diastolic LV dysfunction with congestive heart failure, volume overload, resolving 4. History of alcohol dependence 5. Acute renal insufficiency 6. Anemia 7. Paroxysmal afib [id number] PLAN: 1. Monitor CXR, BD as needed 2. Antibiotics as per ID service. Also on Acyclovir for possible shingles 3. Oral feeds as tolerated, DVT and GI prophylaxis 4. Metoprolol IV pending re-initiation of oral intake. 5. Heparin drip for now and then jail use such as Warfarin or NOAC is to be decided 6. Continue management as per critical care team. Chest tube management Supportive care Jordon Gtz MD
[2017-09-21] MEDS: SODIUM CHLORIDE 0.45% 1,000 ML IV SCH (14:41)
[2017-09-21 15:33] LABS: MCH 28.6 pg (25.7-33.7); MCHC 32.8 g/dl (32.0-35.9); MEAN CELL VOLUME 87.2 fl (80-96); MEAN PLT VOLUME 6.1 fl (7.5-11.1); PLATELET COUNT 252 K/MM3 (134-434); RDW 16.7 % (11.9-15.9); WHITE BLOOD COUNT 15.6 K/mm3 (4.0-10.0)
--- NOTE | 2017-09-21 15:53 | PN ---
Progress Note, Physician History of Present Illness: Pt seen and examined at bedside. He is awake. He did have congestion this morning but did respond to chest therapy. - Current Medication List Current Medications: Active Medications Acetaminophen (Tylenol -) 650 mg NR Q6H PRN PRN Reason: FEVER OR PAIN Last Admin: 09/16/17 18:27 Dose: 650 mg Albuterol/Ipratropium (Duoneb -) 1 amp NEB Q6H PRN PRN Reason: SHORTNESS OF BREATH Bacitracin (Bacitracin -) 1 applic TP DAILY [facility] Last Admin: 09/21/17 09:12 Dose: 1 applic Bacitracin/Polymyxin B Sulfate (Polysporin Ointment -) 1 applic TP DAILY [facility] Last Admin: 09/21/17 09:13 Dose: 1 applic Chlorhexidine Gluconate (Peridex -) 15 ml MM BID [facility] Last Admin: 09/21/17 09:13 Dose: Not Given Ferrous Sulfate (Feosol -) 325 mg PO DAILY [facility] Last Admin: 09/21/17 09:13 Dose: Not Given Folic Acid (Folic Acid -) 1 mg PO DAILY [facility] Last Admin: 09/21/17 09:13 Dose: Not Given Heparin Sodium (Porcine) (Heparin -) 1,000 unit IVPUSH PRN PRN PRN Reason: Heparin Last Admin: 09/21/17 08:40 Dose: 1,000 unit Heparin Sodium (Porcine) (Heparin -) 5,000 unit IVPUSH PRN PRN PRN Reason: Heparin Last Admin: 09/21/17 02:15 Dose: 5,000 unit Cefazolin Sodium (Ancef 1gm Ivpb (Pre-Docked)) 50 mls @ 100 mls/hr IVPB Q8H-IV [facility] Last Admin: 09/21/17 09:11 Dose: 100 mls/hr Acyclovir 900 mg/ Dextrose 268 mls @ 178.667 mls/hr IVPB DAILY [facility] Last Admin: 09/21/17 09:09 Dose: 178.667 mls/hr Heparin Sodium (Porcine) 25, (000 unit/ Sodium Chloride) 500 mls @ 20 mls/hr IV TITR [facility]; 1,000 UNIT/HR PRN Reason: Protocol Last Titration: 09/21/17 08:40 Dose: 1,250 unit/hr Sodium Chloride (1/2 Normal Saline) 1,000 mls @ 42 mls/hr IV ASDIR [facility] Last Admin: 09/21/17 14:41 Dose: 42 mls/hr Metoprolol Tartrate (Lopressor Injection -) 5 mg IVPUSH Q6H-IV [facility] Last Admin: 09/21/17 14:34 Dose: 5 mg Multivitamins/Minerals (Theragran-M) 1 each PO DAILY [facility] Last Admin: 09/21/17 09:14 Dose: Not Given Sevelamer Carbonate (Renvela -) 800 mg PO TIDCM [facility] Last Admin: 09/21/17 12:08 Dose: Not Given Thiamine HCl (Vitamin B1 -) 100 mg PO DAILY [facility] Last Admin: 09/21/17 09:14 Dose: Not Given - Objective Vital Signs: Vital Signs Temperature 99.4 F 09/21/17 14:00 Pulse Rate 93 H 09/21/17 15:00 Respiratory Rate 26 H 09/21/17 15:00 Blood Pressure 117/77 09/21/17 15:00 O2 Sat by Pulse Oximetry (%) 100 09/21/17 15:05 Constitutional: Yes: Calm Eyes: Yes: Conjunctiva Clear HENT: Yes: Atraumatic Neck: Yes: Supple Cardiovascular: Yes: S1, S2 Respiratory: Yes: On Nasal O2, Other (chest tube) Genitourinary: Yes: Freeman Present Musculoskeletal: Yes: Muscle Weakness Edema: Yes Edema: LLE: Trace, RLE: Trace Wound/Incision: Yes: Dressing Dry and Intact Neurological: Yes: Other (awake) Labs: CBC, BMP 09/21/17 15:20 09/21/17 06:10 INR, PTT INR 1.14 (0.82-1.09) 09/21/17 06:10 Problem List - Problems (1) Acute kidney injury Code(s): N17.9 - ACUTE KIDNEY FAILURE, UNSPECIFIED (2) Anemia Code(s): D64.9 - ANEMIA, UNSPECIFIED Qualifiers: Anemia type: unspecified type Qualified Code(s): D64.9 - Anemia, unspecified; D64.9 - Anemia, unspecified (3) Hyponatremia Code(s): E87.1 - HYPO-OSMOLALITY AND HYPONATREMIA (4) Respiratory failure with hypoxia Code(s): J96.91 - RESPIRATORY FAILURE, UNSPECIFIED WITH HYPOXIA Qualifiers: Chronicity: acute Qualified Code(s): J96.01 - Acute respiratory failure with hypoxia; J96.01 - Acute respiratory failure with hypoxia; J96.01 - Acute respiratory failure with hypoxia (5) Staphylococcus aureus bacteremia Code(s): R78.81 - BACTEREMIA (6) Withdrawal symptoms, alcohol Code(s): F10.239 - ALCOHOL DEPENDENCE WITH WITHDRAWAL, UNSPECIFIED Qualifiers : Complication of substance-induced condition: uncomplicated Qualified Code(s): F10.230 - Alcohol dependence with withdrawal, uncomplicated; F10.230 - Alcohol dependence with withdrawal, uncomplicated; F10.230 - Alcohol dependence with withdrawal, uncomplicated (7) Abuse, drug or alcohol Code(s): F19.10 - OTHER PSYCHOACTIVE SUBSTANCE ABUSE, UNCOMPLICATED Assessment/Plan Current Medications Generic Name Dose Route Start Last Admin Trade Name Freq PRN Reason Stop Dose Admin Acetaminophen 650 mg 09/07/17 05:53 09/16/17 18:27 Tylenol - NR 650 mg Q6H PRN Administration FEVER OR PAIN Albuterol/Ipratropium 1 amp 09/19/17 14:55 Duoneb - NEB Q6H PRN SHORTNESS OF BREATH Bacitracin 1 applic 09/02/17 10:00 09/21/17 09:12 Bacitracin - TP 1 applic DAILY [facility] Administration Bacitracin/Polymyxin B Sulfate 1 applic 09/16/17 20:45 09/21/17 09:13 Polysporin Ointment - TP 1 applic DAILY [facility] Administration Chlorhexidine Gluconate 15 ml 09/08/17 12:30 09/21/17 09:13 Peridex - MM Not Given BID [facility] Ferrous Sulfate 325 mg 09/05/17 12:00 09/21/17 09:13 Feosol - PO Not Given DAILY [facility] Folic Acid 1 mg 09/02/17 10:00 09/21/17 09:13 Folic Acid - PO Not Given DAILY [facility] Heparin Sodium (Porcine) 1,000 unit 09/20/17 17:42 09/21/17 08:40 Heparin - IVPUSH 1,000 unit PRN PRN Administration Heparin Heparin Sodium (Porcine) 5,000 unit 09/20/17 17:42 09/21/17 02:15 Heparin - IVPUSH 5,000 unit PRN PRN Administration Heparin Cefazolin Sodium 50 mls @ 100 mls/hr 09/16/17 10:00 09/21/17 09:11 Ancef 1gm Ivpb (Pre-Docked) IVPB 100 mls/hr Q8H-IV [facility] Administration Acyclovir 900 mg/ Dextrose 268 mls @ 178.667 mls/hr 09/20/17 10:00 09/21/17 09: 09 IVPB 178.667 mls/hr DAILY [facility] Administration Heparin Sodium (Porcine) 25, 500 mls @ 20 mls/hr 09/20/17 17:45 09/21/17 08:40 000 unit/ Sodium Chloride IV 1,250 unit/hr TITR [facility] Titration Protocol 1,000 UNIT/HR Sodium Chloride 1,000 mls @ 42 mls/hr 09/20/17 19:15 09/21/17 14:41 1/2 Normal Saline IV 42 mls/hr ASDIR [facility] Administration Metoprolol Tartrate 5 mg 09/20/17 16:31 09/21/17 14:34 Lopressor Injection - IVPUSH 5 mg Q6H-IV [facility] Administration Multivitamins/Minerals 1 each 09/02/17 10:00 09/21/17 09:14 Theragran-M PO Not Given DAILY [facility] Sevelamer Carbonate 800 mg 09/12/17 17:30 09/21/17 12:08 Renvela - PO Not Given TIDCM [facility] Thiamine HCl 100 mg 09/02/17 10:00 09/21/17 09:14 Vitamin B1 - PO Not Given DAILY [facility] Impression 1. ALEXANDRA 2. fluid overload 3. hypoalbuminemia 4. respiratory failure requiring intubation 5. anemia 6. etoh abuse 7. fevers 8. hypokalemia Plan - would cont d51/2 as pt is npo - diuretics on hold - run acyclovir over 4 hours instead of 2 - repeat labs in am - follow up urine studies - will continue to monitor volume status - cont oxygen and monitor pulse ox - will follow Dr Peres
[2017-09-21] MEDS: DEXTROSE 5%-0.45% SALINE 1,000 ML IV SCH (16:00)
[2017-09-21] MEDS: HEPARIN - 25,000 UNIT in SODIUM CHLORIDE 495 ML IV SCH (20:00)
[2017-09-22] MEDS: CEFAZOLIN (PRE-DOCKED) 50 ML IVPB SCH ×3 (02:00→17:41)
[2017-09-22] MEDS: METOPROLOL TARTRATE 5 MG/5 ML VIAL IVPUSH SCH ×4 (03:24→21:04)
[2017-09-22 06:19] LABS: MCH 28.7 pg (25.7-33.7); MCHC 32.5 g/dl (32.0-35.9); MEAN CELL VOLUME 88.3 fl (80-96); MEAN PLT VOLUME 6.8 fl (7.5-11.1); PLATELET COUNT 236 K/MM3 (134-434); RDW 16.3 % (11.9-15.9); WHITE BLOOD COUNT 13.8 K/mm3 (4.0-10.0)
[2017-09-22 06:56] LABS: ALBUMIN 1.7 g/dl (3.4-5.0); ANION GAP 11 (8-16); CALCIUM 7.8 mg/dL (8.5-10.1); CO2 22 mmol/L (21-32); CREATININE 3.8 mg/dL (0.7-1.3); GLUCOSE,RANDOM 114 mg/dL (74-106); SGOT/AST 38 U/L (15-37); SGPT/ALT < 6 U/L (12-78); TOT PROT 7.2 g/dl (6.4-8.2)
[2017-09-22 06:58] LABS: ALK PHOS 195 U/L (45-117); BILIRUBIN,TOTAL 0.7 mg/dL (0.2-1.0)
[2017-09-22] MEDS ORDERED: SCOPOLAMINE HYDROBROMIDE 1 PATCH PATCH.TD72 TD SCH (08:00)
[2017-09-22] MEDS: DEXTROSE 5%-0.45% SALINE 1,000 ML IV SCH (08:36)
[2017-09-22] MEDS: HEPARIN NA (PORCINE) 5,000 UNITS/ML 1ML VIAL IVPUSH PRN ×2 (08:37→15:43)
[2017-09-22] MEDS: SEVELAMER CARBONATE 800 MG TAB (FP) PO SCH ×3 (08:40→17:12)
--- NOTE | 2017-09-22 09:30 | PN ---
Progress Note, Physician Chief Complaint: Cefazolin continues IV Zovirax - Current Medication List Current Medications: Active Medications Acetaminophen (Tylenol -) 650 mg NR Q6H PRN PRN Reason: FEVER OR PAIN Last Admin: 09/16/17 18:27 Dose: 650 mg Albuterol/Ipratropium (Duoneb -) 1 amp NEB Q6H PRN PRN Reason: SHORTNESS OF BREATH Bacitracin (Bacitracin -) 1 applic TP DAILY [facility] Last Admin: 09/21/17 09:12 Dose: 1 applic Bacitracin/Polymyxin B Sulfate (Polysporin Ointment -) 1 applic TP DAILY [facility] Last Admin: 09/21/17 09:13 Dose: 1 applic Chlorhexidine Gluconate (Peridex -) 15 ml MM BID [facility] Last Admin: 09/21/17 23:07 Dose: Not Given Ferrous Sulfate (Feosol -) 325 mg PO DAILY [facility] Last Admin: 09/21/17 09:13 Dose: Not Given Folic Acid (Folic Acid -) 1 mg PO DAILY [facility] Last Admin: 09/21/17 09:13 Dose: Not Given Heparin Sodium (Porcine) (Heparin -) 1,000 unit IVPUSH PRN PRN PRN Reason: Heparin Last Admin: 09/22/17 08:37 Dose: 1,000 unit Heparin Sodium (Porcine) (Heparin -) 5,000 unit IVPUSH PRN PRN PRN Reason: Heparin Last Admin: 09/21/17 23:00 Dose: 5,000 unit Cefazolin Sodium (Ancef 1gm Ivpb (Pre-Docked)) 50 mls @ 100 mls/hr IVPB Q8H-IV [facility] Last Admin: 09/22/17 02:00 Dose: 100 mls/hr Acyclovir 900 mg/ Dextrose 268 mls @ 178.667 mls/hr IVPB DAILY [facility] Last Admin: 09/21/17 09:09 Dose: 178.667 mls/hr Heparin Sodium (Porcine) 25, (000 unit/ Sodium Chloride) 500 mls @ 20 mls/hr IV TITR [facility]; 1,000 UNIT/HR PRN Reason: Protocol Last Titration: 09/22/17 08:30 Dose: 1,650 unit/hr Dextrose/Sodium Chloride (D5-1/2ns -) 1,000 mls @ 65 mls/hr IV ASDIR [facility] Last Admin: 09/22/17 08:36 Dose: 65 mls/hr Metoprolol Tartrate (Lopressor Injection -) 5 mg IVPUSH Q6H-IV [facility] Last Admin: 09/22/17 08:29 Dose: 5 mg Multivitamins/Minerals (Theragran-M) 1 each PO DAILY [facility] Last Admin: 09/21/17 09:14 Dose: Not Given Scopolamine HBr (Transderm-Scop -) 1 patch TD Q72H [facility] Last Admin: 09/22/17 08:28 Dose: 1 patch Sevelamer Carbonate (Renvela -) 800 mg PO TIDCM [facility] Last Admin: 09/22/17 08:40 Dose: Not Given Thiamine HCl (Vitamin B1 -) 100 mg PO DAILY [facility] Last Admin: 09/21/17 09:14 Dose: Not Given - Objective Vital Signs: Vital Signs Temperature 99.8 F H 09/22/17 06:00 Pulse Rate 104 H 09/22/17 08:29 Respiratory Rate 15 09/22/17 06:00 Blood Pressure 168/92 09/22/17 08:29 O2 Sat by Pulse Oximetry (%) 96 09/22/17 01:14 EST Cardiovascular: Yes: S1, S2. No: Murmur Respiratory: Yes: Rhonchi Gastrointestinal: Yes: Soft Edema: Yes Wound/Incision: Yes: Other (Rash right norris) Labs: CBC, BMP 09/22/17 06:00 09/22/17 06:00 INR, PTT INR 1.14 (0.82-1.09) 09/21/17 06:10 Problem List - Problems (1) Pneumonia Code(s): J18.9 - PNEUMONIA, UNSPECIFIED ORGANISM Qualifiers: Pneumonia type: aspiration pneumonia (2) Respiratory failure with hypoxia Code(s): J96.91 - RESPIRATORY FAILURE, UNSPECIFIED WITH HYPOXIA Qualifiers: Chronicity: acute Qualified Code(s): J96.01 - Acute respiratory failure with hypoxia; J96.01 - Acute respiratory failure with hypoxia; J96.01 - Acute respiratory failure with hypoxia (3) Staphylococcus aureus bacteremia Code(s): R78.81 - BACTEREMIA (5) Endocarditis due to Staphylococcus Code(s): I33.0 - ACUTE AND SUBACUTE INFECTIVE ENDOCARDITIS B95.8 - UNSP STAPHYLOCOCCUS THE CAUSE OF DISEASES CLASSD [id number] Assessment/Plan Microbiology 09/19/17 10:00 Leg - Right Lower Gram Stain - Final 09/19/17 10:00 Leg - Right Lower Wound Culture - Final Diphtheroid/Corynebacterium Staphylococcus Coagulase Neg 09/19/17 10:23 Blood - Peripheral Venous Blood Culture - Preliminary NO GROWTH OBTAINED AFTER 48 HOURS, INCUBATION TO CONTINUE FOR 3 DAYS. 09/19/17 10:23 Blood - Peripheral Venous Blood Culture - Preliminary NO GROWTH OBTAINED AFTER 48 HOURS, INCUBATION TO CONTINUE FOR 3 DAYS. Laboratory Tests 09/22/17 09/22/17 06:00 06:00 WBC 13.8 H Hgb 7.4 L Hct 22.9 L Plt Count 236 BUN 86 H Creatinine 3.8 H Creat Clearance w eGFR 15.97 Assessment MSSA bacteremia PNA Pustular dermatitis unclear etiology Plan Stop zovirax as renal function worsening Cefazolin renew Monitering low grade temps and WBC for now Esau EMERY
[2017-09-22] MEDS: BACITRACIN 15 GM TUBE TOPICAL OINTMENT TP SCH (09:49)
[2017-09-22] MEDS: FERROUS SO4 325 MG TABLET (FP) PO SCH (09:49)
[2017-09-22] MEDS: THIAMINE HCL 100 MG TABLET (FP) PO SCH (09:50)
[2017-09-22] MEDS: FOLIC ACID 1 MG TABLET (FP) PO SCH (09:50)
[2017-09-22] MEDS: BACITRACIN/POLYMYXIN B SULFATE 15 GM TUBE TP SCH (09:50)
[2017-09-22] MEDS: CHLORHEXIDINE GLUCONATE 0.12% 15ML CUP MM SCH ×2 (09:50→21:05)
[2017-09-22] MEDS: MULTIVITAMINS THER W-MINERALS COMBO TABLET (FP) PO SCH (09:50)
--- NOTE | 2017-09-22 10:06 | PN ---
Progress Note (short form) - Note Progress Note: PULM/CCM Pt Seen & examined in the ICU. Remains extubated but w/ persistent resp insufficiency: Tachypneic --> 30's, ronchi, weak cough, R pigtial--->waterseal w / scanty sero-sanguenous drainage, smoldering fever. ACTIVE MEDS Acetaminophen (Tylenol -) 650 mg NR Q6H PRN PRN Reason: FEVER OR PAIN Last Admin: 09/16/17 18:27 Dose: 650 mg Albuterol/Ipratropium (Duoneb -) 1 amp NEB Q6H PRN PRN Reason: SHORTNESS OF BREATH Bacitracin (Bacitracin -) 1 applic TP DAILY [facility] Last Admin: 09/22/17 09:49 Dose: 1 applic Bacitracin/Polymyxin B Sulfate (Polysporin Ointment -) 1 applic TP DAILY [facility] Last Admin: 09/22/17 09:50 Dose: 1 applic Chlorhexidine Gluconate (Peridex -) 15 ml MM BID [facility] Last Admin: 09/22/17 09:50 Dose: 15 ml Ferrous Sulfate (Feosol -) 325 mg PO DAILY [facility] Last Admin: 09/22/17 09:49 Dose: Not Given Folic Acid (Folic Acid -) 1 mg PO DAILY [facility] Last Admin: 09/22/17 09:50 Dose: Not Given Heparin Sodium (Porcine) (Heparin -) 1,000 unit IVPUSH PRN PRN PRN Reason: Heparin Last Admin: 09/22/17 08:37 Dose: 1,000 unit Heparin Sodium (Porcine) (Heparin -) 5,000 unit IVPUSH PRN PRN PRN Reason: Heparin Last Admin: 09/21/17 23:00 Dose: 5,000 unit Cefazolin Sodium (Ancef 1gm Ivpb (Pre-Docked)) 50 mls @ 100 mls/hr IVPB Q8H-IV [facility] Last Admin: 09/22/17 09:49 Dose: 100 mls/hr Acyclovir 900 mg/ Dextrose 268 mls @ 178.667 mls/hr IVPB DAILY [facility] Last Admin: 09/21/17 09:09 Dose: 178.667 mls/hr Heparin Sodium (Porcine) 25, (000 unit/ Sodium Chloride) 500 mls @ 20 mls/hr IV TITR [facility]; 1,000 UNIT/HR PRN Reason: Protocol Last Titration: 09/22/17 08:30 Dose: 1,650 unit/hr Dextrose/Sodium Chloride (D5-1/2ns -) 1,000 mls @ 65 mls/hr IV ASDIR [facility] Last Admin: 09/22/17 08:36 Dose: 65 mls/hr Metoprolol Tartrate (Lopressor Injection -) 5 mg IVPUSH Q6H-IV [facility] Last Admin: 09/22/17 08:29 Dose: 5 mg Multivitamins/Minerals (Theragran-M) 1 each PO DAILY [facility] Last Admin: 09/22/17 09:50 Dose: Not Given Scopolamine HBr (Transderm-Scop -) 1 patch TD Q72H [facility] Last Admin: 09/22/17 08:28 Dose: 1 patch Sevelamer Carbonate (Renvela -) 800 mg PO TIDCM [facility] Last Admin: 09/22/17 08:40 Dose: Not Given Thiamine HCl (Vitamin B1 -) 100 mg PO DAILY [facility] Last Admin: 09/22/17 09:50 Dose: Not Given V/S Period Temp Pulse Resp BP Sys/Jeff Pulse Ox Last 24 Hr 99.2 F-100.9 F 93-119 15-32 117-168/70-93 96-100 Intake & Output 09/19/17 09/20/17 09/21/17 09/22/17 23:59 23:59 23:59 22:59 Intake Total 766.2 715 2061 1152 Output Total 1929 3351 1468 915 Balance -1162.8 -2636 593 237 Weight 92.85 kg 91.1 kg 87.679 kg 88.224 kg GEN: Washed out, weak, ill appearing HEENT: PERRL, an-icteric, MMM, no JVD CV: tachy, unable to appreciate m/r/g PULM: crackles, diminished in bases, R pigtail w/ scanty dark fluid, not tidaling ABD: obese, SNTND, +BS EXT: warm, +2 pulses, +1 edema Neuro: WILKINSON x 4, (-) focal deficit CBC, BMP 09/22/17 06:00 09/22/17 06:00 MICRO 09/19/17 10:00 Leg - Right Lower Gram Stain - Final 09/19/17 10:00 Leg - Right Lower Wound Culture - Final Diphtheroid/Corynebacterium Staphylococcus Coagulase Neg 09/19/17 10:23 Blood - Peripheral Venous Blood Culture - Preliminary NO GROWTH OBTAINED AFTER 48 HOURS, INCUBATION TO CONTINUE FOR 3 DAYS. 09/19/17 10:23 Blood - Peripheral Venous Blood Culture - Preliminary NO GROWTH OBTAINED AFTER 48 HOURS, INCUBATION TO CONTINUE FOR 3 DAYS. 09/17/17 16:14 Pleural Fluid Gram Stain - Final 09/17/17 16:14 Pleural Fluid Body Fluid Culture - Final NO GROWTH OF AEROBIC ORGANISMS AFTER 48 HOURS INCUBATION 09/17/17 16:14 Pleural Fluid Anaerobic Culture - Final NO ANAEROBES WERE ISOLATED 09/17/17 16:14 Pleural Fluid AFB Smear Concentration - Preliminary 09/17/17 16:14 Pleural Fluid Mycobacterial Culture - Preliminary 09/17/17 16:14 Pleural Fluid MAGI Preparation - Preliminary 09/17/17 16:14 Pleural Fluid Fungal Culture - Preliminary 09/12/17 09:20 Blood - Peripheral Venous Blood Culture - Final NO GROWTH AFTER 5 DAYS INCUBATION 09/12/17 09:15 Blood - Peripheral Venous Blood Culture - Final NO GROWTH AFTER 5 DAYS INCUBATION 09/10/17 10:00 Blood - Peripheral Venous Blood Culture - Final NO GROWTH AFTER 5 DAYS INCUBATION 09/10/17 10:00 Blood - Peripheral Venous Blood Culture - Final NO GROWTH AFTER 5 DAYS INCUBATION 09/08/17 05:45 Blood - Peripheral Venous Blood Culture - Final NO GROWTH AFTER 5 DAYS INCUBATION 09/08/17 05:45 Blood - Peripheral Venous Blood Culture - Final NO GROWTH AFTER 5 DAYS INCUBATION 09/10/17 09:35 Sputum - Endotrachea Suction/Ventilator Gram Stain - Final 09/10/17 09:35 Sputum - Endotrachea Suction/Ventilator Sputum Culture - Final Yeast Like Organism 09/08/17 18:07 Pleural Fluid Gram Stain - Final 09/08/17 18:07 Pleural Fluid Body Fluid Culture - Final NO GROWTH OF AEROBIC ORGANISMS AFTER 48 HOURS INCUBATION 09/08/17 18:07 Pleural Fluid Anaerobic Culture - Final NO ANAEROBES WERE ISOLATED 09/10/17 09:35 Urine - Urine Freeman Urine Culture - Final NO GROWTH OBTAINED 09/06/17 11:02 Blood - Peripheral Venous Blood Culture - Final NO GROWTH AFTER 5 DAYS INCUBATION 09/10/17 09:05 Stool Clostridium difficile Antigen (KHRIS) - Final 09/10/17 09:05 Stool Clostridium difficile Toxin Assay - Final 09/08/17 18:00 Pleural Fluid AFB Smear Concentration - Final 09/08/17 18:00 Pleural Fluid Mycobacterial Culture - Preliminary 09/06/17 11:02 Blood - Peripheral Venous Blood Culture - Final Staphylococcus Aureus 09/08/17 18:00 Pleural Fluid MAGI Preparation - Preliminary 09/08/17 18:00 Pleural Fluid Fungal Culture - Preliminary 09/04/17 08:15 Blood - Peripheral Venous Blood Culture - Final NO GROWTH AFTER 5 DAYS INCUBATION 09/04/17 08:00 Blood - Peripheral Venous Blood Culture - Final NO GROWTH AFTER 5 DAYS INCUBATION 09/05/17 21:00 Sputum - Endotrachea Suction/Ventilator Gram Stain - Final 09/05/17 21:00 Sputum - Endotrachea Suction/Ventilator Sputum Culture - Final Yeast Like Organism 09/06/17 10:20 Stool Clostridium difficile Antigen (KHRIS) - Final 09/06/17 10:20 Stool Clostridium difficile Toxin Assay - Final 09/02/17 00:00 Sputum - Endotracheal Suction W/O Vent Gram Stain - Final 09/02/17 00:00 Sputum - Endotracheal Suction W/O Vent Sputum Culture - Final Yeast Like Organism 09/03/17 12:15 Urine - Urine - Catheterized Urine Culture - Final NO GROWTH OBTAINED 09/01/17 05:00 Blood - Peripheral Venous Blood Culture - Final Staphylococcus Aureus 09/01/17 00:01 Blood - Peripheral Venous Blood Culture - Final Staphylococcus Aureus 09/01/17 15:50 Blood - Peripheral Venous Blood Culture - Final Staphylococcus Aureus 09/01/17 15:55 Blood - Peripheral Venous Blood Culture - Final Staphylococcus Aureus 08/31/17 23:22 Urine - Urine Clean Catch Urine Culture - Final Contaminated: Please Repeat CXR: 09/22: PENDING ASSESS & PLAN: Respiratory Isufficiency in setting of complicated loculated R pleural effusion Staph Pna MSSA Bacteremia -> Endocarditis ruled out Septic Shock ALEXANDRA Alcohol Dependence ARF AFib - D/c Zovirax - D/c IVFs - hold diuresis - CPT - CXR - Thoracic RE: proper CT vs VATS for organizing effusion by numbers - If Thoracic says no --> initiate TPA/Dornase via Pigtail regimen - Nocturnal NIPPV - ABX per ID - speech and swallow eval - DVT/GI prophylaxis - No acute indication for renal replacement, Nephrology following - Aspiration precautions - On Systemic Heparin - PPI (ARF) ARJUN VALVERDE [facility] ICU [id number] PULM / CCM
--- NOTE | 2017-09-22 10:19 | PN ---
Progress Note (short form) - Note Progress Note: indicate that he is having difficulty breathing. shakes head no to questions of pain. Current Medications Generic Name Dose Route Start Last Admin Trade Name Freq PRN Reason Stop Dose Admin Acetaminophen 650 mg 09/07/17 05:53 09/16/17 18:27 Tylenol - NR 650 mg Q6H PRN Administration FEVER OR PAIN Albuterol/Ipratropium 1 amp 09/19/17 14:55 Duoneb - NEB Q6H PRN SHORTNESS OF BREATH Bacitracin 1 applic 09/02/17 10:00 09/22/17 09:49 Bacitracin - TP 1 applic DAILY [facility] Administration Bacitracin/Polymyxin B Sulfate 1 applic 09/16/17 20:45 09/22/17 09:50 Polysporin Ointment - TP 1 applic DAILY [facility] Administration Chlorhexidine Gluconate 15 ml 09/08/17 12:30 09/22/17 09:50 Peridex - MM 15 ml BID [facility] Administration Ferrous Sulfate 325 mg 09/05/17 12:00 09/22/17 09:49 Feosol - PO Not Given DAILY [facility] Folic Acid 1 mg 09/02/17 10:00 09/22/17 09:50 Folic Acid - PO Not Given DAILY [facility] Heparin Sodium (Porcine) 1,000 unit 09/20/17 17:42 09/22/17 08:37 Heparin - IVPUSH 1,000 unit PRN PRN Administration Heparin Heparin Sodium (Porcine) 5,000 unit 09/20/17 17:42 09/21/17 23:00 Heparin - IVPUSH 5,000 unit PRN PRN Administration Heparin Cefazolin Sodium 50 mls @ 100 mls/hr 09/16/17 10:00 09/22/17 09:49 Ancef 1gm Ivpb (Pre-Docked) IVPB 100 mls/hr Q8H-IV [facility] Administration Acyclovir 900 mg/ Dextrose 268 mls @ 178.667 mls/hr 09/20/17 10:00 09/21/17 09: 09 IVPB 178.667 mls/hr DAILY [facility] Administration Heparin Sodium (Porcine) 25, 500 mls @ 20 mls/hr 09/20/17 17:45 09/22/17 08:30 000 unit/ Sodium Chloride IV 1,650 unit/hr TITR [facility] Titration Protocol 1,000 UNIT/HR Dextrose/Sodium Chloride 1,000 mls @ 65 mls/hr 09/21/17 16:00 09/22/17 08:36 D5-1/2ns - IV 65 mls/hr ASDIR [facility] Administration Metoprolol Tartrate 5 mg 09/20/17 16:31 09/22/17 08:29 Lopressor Injection - IVPUSH 5 mg Q6H-IV [facility] Administration Multivitamins/Minerals 1 each 09/02/17 10:00 09/22/17 09:50 Theragran-M PO Not Given DAILY [facility] Scopolamine HBr 1 patch 09/22/17 08:00 09/22/17 08:28 Transderm-Scop - TD 1 patch Q72H [facility] Administration Sevelamer Carbonate 800 mg 09/12/17 17:30 09/22/17 08:40 Renvela - PO Not Given TIDCM [facility] Thiamine HCl 100 mg 09/02/17 10:00 09/22/17 09:50 Vitamin B1 - PO Not Given DAILY [facility] Last Vital Signs Temp Pulse Resp BP Pulse Ox 99.8 F H 104 H 18 168/92 96 09/22/17 06:00 09/22/17 08:29 09/22/17 08:00 09/22/17 08:29 09/22/17 01:14 EST Intake & Output 09/19/17 09/20/17 09/21/17 09/22/17 23:59 23:59 23:59 22:59 Intake Total 766.2 715 2061 1152 Output Total 1929 3351 1468 915 Balance -1162.8 -2636 593 237 Weight 204 lb 11.2 oz 200 lb 13.458 oz 193 lb 4.8 oz 194 lb 8 oz General mild distress due to tachypnea. copious secretions suctioned from mouth and nose CV S1 S2 RRR no murmur/rub/gallop Lungs course breath sounds diffusely decreased breath sounds at bases abdomen soft NT/ND Extremities trace pitting edema pustular rash on anterior norris of RLE, moves all 4 extremities strength L >R CBCD WBC 13.8 K/mm3 (4.0-10.0) H 09/22/17 06:00 RBC 2.59 M/mm3 (4.00-5.60) L 09/22/17 06:00 Hgb 7.4 GM/dL (11.7-16.9) L 09/22/17 06:00 Hct 22.9 % (35.4-49) L 09/22/17 06:00 MCV 88.3 fl (80-96) 09/22/17 06:00 MCHC 32.5 g/dl (32.0-35.9) 09/22/17 06:00 RDW 16.3 % (11.9-15.9) H 09/22/17 06:00 Plt Count 236 K/MM3 (134-434) 09/22/17 06:00 MPV 6.8 fl (7.5-11.1) L D 09/22/17 06:00 CMP Sodium 144 mmol/L (136-145) 09/22/17 06:00 Potassium 3.5 mmol/L (3.5-5.1) 09/22/17 06:00 Chloride 111 mmol/L (98-107) H 09/22/17 06:00 Carbon Dioxide 22 mmol/L (21-32) 09/22/17 06:00 Anion Gap 11 (8-16) 09/22/17 06:00 BUN 86 mg/dL (7-18) H 09/22/17 06:00 Creatinine 3.8 mg/dL (0.7-1.3) H 09/22/17 06:00 Creat Clearance w eGFR 15.97 (>60) 09/22/17 06:00 Random Glucose 114 mg/dL (74-106) H 09/22/17 06:00 Calcium 7.8 mg/dL (8.5-10.1) L 09/22/17 06:00 Total Bilirubin 0.7 mg/dL (0.2-1.0) 09/22/17 06:00 AST 38 U/L (15-37) H 09/22/17 06:00 ALT < 6 U/L (12-78) L 09/22/17 06:00 Alkaline Phosphatase 195 U/L (45-117) H 09/22/17 06:00 Total Protein 7.2 g/dl (6.4-8.2) 09/22/17 06:00 Albumin 1.7 g/dl (3.4-5.0) L 09/22/17 06:00 CARDIAC ENZYMES Creatine Kinase 846 IU/L (39-308) H 08/31/17 13:40 Troponin I 0.03 ng/ml (0.00-0.05) D 08/31/17 13:40 Microbiology 09/19/17 10:00 Gram Stain - Final Leg - Right Lower Wound Culture - Final Diphtheroid/Corynebacterium Staphylococcus Coagulase Neg 09/19/17 10:23 Blood Culture - Preliminary Blood - Peripheral Venous NO GROWTH OBTAINED AFTER 48 HOURS, INCUBATION TO CONTINUE FOR 3 DAYS. 09/19/17 10:23 Blood Culture - Preliminary Blood - Peripheral Venous NO GROWTH OBTAINED AFTER 48 HOURS, INCUBATION TO CONTINUE FOR 3 DAYS. ASSESSMENT AND PLAN: 66 yo M with PMH alcohol abuse, HTN who presented to the ER after being found on the floor. 1. Acute hypoxic respiratory failure- likely due to cavitary PNA. s/p extubated 09/19. currently 100% on 4L NC. will need frequent suctioning, chest PT. improved after deep suctioning. low threshold for re-intubation. crit care on board. 2. Sepsis secondary to cavitary healthcare-associated pneumonia, MSSA bacteremia - multiple low grade fevers. Tm 100.9. pig tail draining minimal sangenous from R chest. re-evalauted pleural fluid and apperaing complicated with low glucose and worsening LDH. call placed to CT surgery to evaluate. should probably upgrade tube to chest tube and monitor for improvement. if not can attempt putting TPA in the tube and clamping for several hours to monitor for improvement. 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 acyclovir d/c due to worsening kidney function. on Cefazolin. ID on board. 3. New onset afib- rate controlled. metoprolol IVP prn. on hep ggt. will convert to NOAC vs coumadin once medically optimized. 4. Acute kidney injury with hyperphosphatemia- Cr stabilized. acyclovir d/c. if improves can consider lasix ggt. will hold for now. goal net neg. good UOP. nephrology on board. 5. Anemia- s/p 2 units PRBC this admission. on iron supplementations. no indication for txn at this time. 6. Hepatic transaminitis- stable. US shows hepatosplenomegaly and fatty infiltration of liver 7. Thrombocytopenia- Secondary to alcohol, splenomegaly. now stable 8. HTN- initially hypotensive. now off pressors. cont medications 9. 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 DVT prophylaxis- heparin ggt 12. Dysphagia-likely due to weakness. maintain NPO including medications. on TF. nutrition on board 13. MICU monitoring as breathing very labile The care of this patient involved high complexity decision making to prevent further life threatening deterioration of the patient's condition and/or to evaluate & treat vital organ system(s) failure or risk of failure. 45 mins Visit type - Emergency Visit Emergency Visit: Yes ED Registration Date: 08/31/17 Care time: The patient presented to the Emergency Department on the above date and was hospitalized for further evaluation of their emergent condition. - New Patient This patient is new to me today: No - Critical Care Critical Care patient: Yes Total Critical Care Time (in minutes): 45 Critical Care Statement: The care of this patient involved high complexity decision making to prevent further life threatening deterioration of the patient 's condition and/or to evaluate & treat vital organ system(s) failure or risk of failure. - Discharge Referral Referred to [facility] No
[2017-09-22] MEDS ORDERED: PT OWN MED DRAWER 7, Y5N ONE ×2 (10:23→21:11)
--- NOTE | 2017-09-22 10:43 | PN ---
Progress Note, Physician Chief Complaint: Events noted Remains extubated on O2, but tachypneic as noted History of Present Illness: Patient was seen and examined in ICU. Awake Periods of tachycardia Chest tube management and further plans to follow - Current Medication List Current Medications: Active Medications Acetaminophen (Tylenol -) 650 mg NR Q6H PRN PRN Reason: FEVER OR PAIN Last Admin: 09/16/17 18:27 Dose: 650 mg Albuterol/Ipratropium (Duoneb -) 1 amp NEB Q6H PRN PRN Reason: SHORTNESS OF BREATH Bacitracin (Bacitracin -) 1 applic TP DAILY [facility] Last Admin: 09/22/17 09:49 Dose: 1 applic Bacitracin/Polymyxin B Sulfate (Polysporin Ointment -) 1 applic TP DAILY [facility] Last Admin: 09/22/17 09:50 Dose: 1 applic Chlorhexidine Gluconate (Peridex -) 15 ml MM BID [facility] Last Admin: 09/22/17 09:50 Dose: 15 ml Ferrous Sulfate (Feosol -) 325 mg PO DAILY [facility] Last Admin: 09/22/17 09:49 Dose: Not Given Folic Acid (Folic Acid -) 1 mg PO DAILY [facility] Last Admin: 09/22/17 09:50 Dose: Not Given Heparin Sodium (Porcine) (Heparin -) 1,000 unit IVPUSH PRN PRN PRN Reason: Heparin Last Admin: 09/22/17 08:37 Dose: 1,000 unit Heparin Sodium (Porcine) (Heparin -) 5,000 unit IVPUSH PRN PRN PRN Reason: Heparin Last Admin: 09/21/17 23:00 Dose: 5,000 unit Cefazolin Sodium (Ancef 1gm Ivpb (Pre-Docked)) 50 mls @ 100 mls/hr IVPB Q8H-IV [facility] Last Admin: 09/22/17 09:49 Dose: 100 mls/hr Acyclovir 900 mg/ Dextrose 268 mls @ 178.667 mls/hr IVPB DAILY [facility] Last Admin: 09/21/17 09:09 Dose: 178.667 mls/hr Heparin Sodium (Porcine) 25, (000 unit/ Sodium Chloride) 500 mls @ 20 mls/hr IV TITR KINGS; 1,000 UNIT/HR PRN Reason: Protocol Last Titration: 09/22/17 08:30 Dose: 1,650 unit/hr Dextrose/Sodium Chloride (D5-1/2ns -) 1,000 mls @ 65 mls/hr IV ASDIR [facility] Last Admin: 09/22/17 08:36 Dose: 65 mls/hr Metoprolol Tartrate (Lopressor Injection -) 5 mg IVPUSH Q6H-IV [facility] Last Admin: 09/22/17 08:29 Dose: 5 mg Multivitamins/Minerals (Theragran-M) 1 each PO DAILY [facility] Last Admin: 09/22/17 09:50 Dose: Not Given Scopolamine HBr (Transderm-Scop -) 1 patch TD Q72H [facility] Last Admin: 09/22/17 08:28 Dose: 1 patch Sevelamer Carbonate (Renvela -) 800 mg PO TIDCM [facility] Last Admin: 09/22/17 08:40 Dose: Not Given Thiamine HCl (Vitamin B1 -) 100 mg PO DAILY [facility] Last Admin: 09/22/17 09:50 Dose: Not Given - Objective Vital Signs: Vital Signs Temperature 99.7 F H 09/22/17 10:00 Pulse Rate 94 H 09/22/17 10:00 Respiratory Rate 20 09/22/17 10:00 Blood Pressure 158/93 09/22/17 10:00 O2 Sat by Pulse Oximetry (%) 96 09/22/17 01:14 EST Cardiovascular: Yes: Regular Rate and Rhythm, S1, S2 Respiratory: Yes: Diminished, Rhonchi Gastrointestinal: Yes: Normal Bowel Sounds, Soft, Abdomen, Obese. No: Tenderness Edema: No Labs: CBC, BMP 09/22/17 06:00 09/22/17 06:00 INR, PTT INR 1.14 (0.82-1.09) 09/21/17 06:10 Problem List - Problems (1) Acute diastolic heart failure Code(s): I50.31 - ACUTE DIASTOLIC (CONGESTIVE) HEART FAILURE (2) Anemia Code(s): D64.9 - ANEMIA, UNSPECIFIED Qualifiers: Anemia type: unspecified type Qualified Code(s): D64.9 - Anemia, unspecified; D64.9 - Anemia, unspecified (3) History of alcohol abuse Code(s): Z87.898 - PERSONAL HISTORY OF OTHER SPECIFIED CONDITIONS (4) Pneumonia Code(s): J18.9 - PNEUMONIA, UNSPECIFIED ORGANISM Qualifiers: Pneumonia type: aspiration pneumonia (5) Respiratory failure with hypoxia Code(s): J96.91 - RESPIRATORY FAILURE, UNSPECIFIED WITH HYPOXIA Qualifiers: Chronicity: acute Qualified Code(s): J96.01 - Acute respiratory failure with hypoxia; J96.01 - Acute respiratory failure with hypoxia; J96.01 - Acute respiratory failure with hypoxia (7) Abuse, drug or alcohol Code(s): F19.10 - OTHER PSYCHOACTIVE SUBSTANCE ABUSE, UNCOMPLICATED Assessment/Plan 1. Acute hypoxic respiratory failure, extubated, pulmonary infiltrates/ pulmonary edema 2. Cavitary pneumonia, MSSA bacteremia suspect septic emboli, post septic shock , negative for endocarditis on ALISA 3. Probable diastolic LV dysfunction with congestive heart failure, volume overload, resolving 4. History of alcohol dependence 5. Acute renal insufficiency 6. Anemia 7. Paroxysmal afib [id number] PLAN: 1. Monitor CXR, BD as needed 2. Antibiotics as per ID service. Also on Acyclovir for possible shingles 3. DVT and GI prophylaxis 4. Metoprolol IV pending re-initiation of oral intake. 5. Heparin drip for now and then shoemaker custom use such as Warfarin or NOAC is to be decided 6. Continue management as per critical care team. Chest tube management. Await CTS re-evaluation and further plans to follow Supportive care Jordon Gtz MD
--- NOTE | 2017-09-22 13:05 | PN ---
Progress Note (short form) - Note Progress Note: Thoracic Surgery: CT reviewed. B/L loculated effusions. Culture on right negative. Pt's respiratory status improved. Recommend TPA to drain. This will likely be less insult to him than VATS as fluid is sterile and he is no longer septic and is improving.
--- NOTE | 2017-09-22 13:31 | PN ---
Progress Note, Physician History of Present Illness: Pt seen and examined at bedside. He is awake. He does not respond to questions. He remains in the ICU. - Current Medication List Current Medications: Active Medications Acetaminophen (Tylenol -) 650 mg NR Q6H PRN PRN Reason: FEVER OR PAIN Last Admin: 09/16/17 18:27 Dose: 650 mg Albuterol/Ipratropium (Duoneb -) 1 amp NEB Q6H PRN PRN Reason: SHORTNESS OF BREATH Bacitracin (Bacitracin -) 1 applic TP DAILY [facility] Last Admin: 09/22/17 09:49 Dose: 1 applic Bacitracin/Polymyxin B Sulfate (Polysporin Ointment -) 1 applic TP DAILY [facility] Last Admin: 09/22/17 09:50 Dose: 1 applic Chlorhexidine Gluconate (Peridex -) 15 ml MM BID [facility] Last Admin: 09/22/17 09:50 Dose: 15 ml Ferrous Sulfate (Feosol -) 325 mg PO DAILY [facility] Last Admin: 09/22/17 09:49 Dose: Not Given Folic Acid (Folic Acid -) 1 mg PO DAILY [facility] Last Admin: 09/22/17 09:50 Dose: Not Given Heparin Sodium (Porcine) (Heparin -) 1,000 unit IVPUSH PRN PRN PRN Reason: Heparin Last Admin: 09/22/17 08:37 Dose: 1,000 unit Heparin Sodium (Porcine) (Heparin -) 5,000 unit IVPUSH PRN PRN PRN Reason: Heparin Last Admin: 09/21/17 23:00 Dose: 5,000 unit Cefazolin Sodium (Ancef 1gm Ivpb (Pre-Docked)) 50 mls @ 100 mls/hr IVPB Q8H-IV [facility] Last Admin: 09/22/17 09:49 Dose: 100 mls/hr Heparin Sodium (Porcine) 25, (000 unit/ Sodium Chloride) 500 mls @ 20 mls/hr IV TITR [facility]; 1,000 UNIT/HR PRN Reason: Protocol Last Titration: 09/22/17 08:30 Dose: 1,650 unit/hr Dextrose/Sodium Chloride (D5-1/2ns -) 1,000 mls @ 65 mls/hr IV ASDIR [facility] Last Admin: 09/22/17 08:36 Dose: 65 mls/hr Metoprolol Tartrate (Lopressor Injection -) 5 mg IVPUSH Q6H-IV [facility] Last Admin: 09/22/17 08:29 Dose: 5 mg Multivitamins/Minerals (Theragran-M) 1 each PO DAILY [facility] Last Admin: 09/22/17 09:50 Dose: Not Given Scopolamine HBr (Transderm-Scop -) 1 patch TD Q72H [facility] Last Admin: 09/22/17 08:28 Dose: 1 patch Sevelamer Carbonate (Renvela -) 800 mg PO TIDCM [facility] Last Admin: 09/22/17 13:04 Dose: Not Given Thiamine HCl (Vitamin B1 -) 100 mg PO DAILY [facility] Last Admin: 09/22/17 09:50 Dose: Not Given - Objective Vital Signs: Vital Signs Temperature 99.3 F 09/22/17 12:00 Pulse Rate 96 H 09/22/17 12:00 Respiratory Rate 15 09/22/17 12:00 Blood Pressure 154/95 09/22/17 12:00 O2 Sat by Pulse Oximetry (%) 100 09/22/17 13:03 Constitutional: Yes: Calm Eyes: Yes: Conjunctiva Clear HENT: Yes: Atraumatic Neck: Yes: Supple Cardiovascular: Yes: S1, S2 Respiratory: Yes: On Nasal O2, Other (chest tube) Gastrointestinal: Yes: Soft Genitourinary: Yes: Freeman Present Musculoskeletal: Yes: Muscle Weakness Edema: Yes Edema: LLE: Trace, RLE: Trace Wound/Incision: Yes: Dressing Dry and Intact Neurological: Yes: Confusion Labs: CBC, BMP 09/22/17 06:00 09/22/17 06:00 INR, PTT INR 1.14 (0.82-1.09) 09/21/17 06:10 - ....Imaging Cat Scan: Report Reviewed Problem List - Problems (1) Acute kidney injury Code(s): N17.9 - ACUTE KIDNEY FAILURE, UNSPECIFIED (2) Anemia Code(s): D64.9 - ANEMIA, UNSPECIFIED Qualifiers: Anemia type: unspecified type Qualified Code(s): D64.9 - Anemia, unspecified; D64.9 - Anemia, unspecified (3) Hyponatremia Code(s): E87.1 - HYPO-OSMOLALITY AND HYPONATREMIA (4) Respiratory failure with hypoxia Code(s): J96.91 - RESPIRATORY FAILURE, UNSPECIFIED WITH HYPOXIA Qualifiers: Chronicity: acute Qualified Code(s): J96.01 - Acute respiratory failure with hypoxia; J96.01 - Acute respiratory failure with hypoxia; J96.01 - Acute respiratory failure with hypoxia (5) Staphylococcus aureus bacteremia Code(s): R78.81 - BACTEREMIA (6) Withdrawal symptoms, alcohol Code(s): F10.239 - ALCOHOL DEPENDENCE WITH WITHDRAWAL, UNSPECIFIED Qualifiers : Complication of substance-induced condition: uncomplicated Qualified Code(s): F10.230 - Alcohol dependence with withdrawal, uncomplicated; F10.230 - Alcohol dependence with withdrawal, uncomplicated; F10.230 - Alcohol dependence with withdrawal, uncomplicated (7) Abuse, drug or alcohol Code(s): F19.10 - OTHER PSYCHOACTIVE SUBSTANCE ABUSE, UNCOMPLICATED Assessment/Plan Current Medications Generic Name Dose Route Start Last Admin Trade Name Freq PRN Reason Stop Dose Admin Acetaminophen 650 mg 09/07/17 05:53 09/16/17 18:27 Tylenol - NR 650 mg Q6H PRN Administration FEVER OR PAIN Albuterol/Ipratropium 1 amp 09/19/17 14:55 Duoneb - NEB Q6H PRN SHORTNESS OF BREATH Bacitracin 1 applic 09/02/17 10:00 09/22/17 09:49 Bacitracin - TP 1 applic DAILY [facility] Administration Bacitracin/Polymyxin B Sulfate 1 applic 09/16/17 20:45 09/22/17 09:50 Polysporin Ointment - TP 1 applic DAILY [facility] Administration Chlorhexidine Gluconate 15 ml 09/08/17 12:30 09/22/17 09:50 Peridex - MM 15 ml BID [facility] Administration Ferrous Sulfate 325 mg 09/05/17 12:00 09/22/17 09:49 Feosol - PO Not Given DAILY [facility] Folic Acid 1 mg 09/02/17 10:00 09/22/17 09:50 Folic Acid - PO Not Given DAILY [facility] Heparin Sodium (Porcine) 1,000 unit 09/20/17 17:42 09/22/17 08:37 Heparin - IVPUSH 1,000 unit PRN PRN Administration Heparin Heparin Sodium (Porcine) 5,000 unit 09/20/17 17:42 09/21/17 23:00 Heparin - IVPUSH 5,000 unit PRN PRN Administration Heparin Cefazolin Sodium 50 mls @ 100 mls/hr 09/16/17 10:00 09/22/17 09:49 Ancef 1gm Ivpb (Pre-Docked) IVPB 100 mls/hr Q8H-IV [facility] Administration Heparin Sodium (Porcine) 25, 500 mls @ 20 mls/hr 09/20/17 17:45 09/22/17 08:30 000 unit/ Sodium Chloride IV 1,650 unit/hr TITR [facility] Titration Protocol 1,000 UNIT/HR Dextrose/Sodium Chloride 1,000 mls @ 65 mls/hr 09/21/17 16:00 09/22/17 08:36 D5-1/2ns - IV 65 mls/hr ASDIR [facility] Administration Metoprolol Tartrate 5 mg 09/20/17 16:31 09/22/17 08:29 Lopressor Injection - IVPUSH 5 mg Q6H-IV [facility] Administration Multivitamins/Minerals 1 each 09/02/17 10:00 09/22/17 09:50 Theragran-M PO Not Given DAILY [facility] Scopolamine HBr 1 patch 09/22/17 08:00 09/22/17 08:28 Transderm-Scop - TD 1 patch Q72H [facility] Administration Sevelamer Carbonate 800 mg 09/12/17 17:30 09/22/17 13:04 Renvela - PO Not Given TIDCM [facility] Thiamine HCl 100 mg 09/02/17 10:00 09/22/17 09:50 Vitamin B1 - PO Not Given DAILY [facility] Impression 1. ALEXANDRA 2. fluid overload 3. hypoalbuminemia 4. respiratory failure requiring intubation 5. anemia 6. etoh abuse 7. fevers 8. hypokalemia 9. pleural effusion Plan - will continue with fluids - ct scan reviewed - cts input appreciated - acyclovir stopped today - repeat labs in am - monitor urine output - chest tube care - monitor pulse ox - discussed with ICU team - hold diuretics for now - monitor volume status daily - will re-order UA - discussed with ID - will follow Dr Peres
[2017-09-22 15:37] LABS: URINE APPEARANCE SLCLOUDY; URINE BILIRUBIN NEGATIVE (NEGATIVE); URINE BLOOD 2+ (NEGATIVE); URINE COLOR LTYELLOW; URINE GLUCOSE (UA) NEGATIVE (NEGATIVE); URINE KETONE NEGATIVE (NEGATIVE); URINE NITRITE NEGATIVE (NEGATIVE); URINE UROBILINOGEN NEGATIVE mg/dL (0.2-1.0)
[2017-09-22] MEDS: ACYCLOVIR INJECTION 900 MG in DEXTROSE 5%-WATER - 250 ML IVPB SCH (15:43)
[2017-09-22 15:51] LABS: GRANULAR CASTS 34 /lpf; URINE BACTERIA RARE /hpf (NONE SEEN); URINE MUCUS RARE; URINE PROTEIN 2+ (NEGATIVE); URINE RBC 50; URINE WBC 14
[2017-09-22] MEDS ORDERED: ALTEPLASE 50 MG VIAL IVPB SCH (16:00)
[2017-09-22] MEDS: HEPARIN - 25,000 UNIT in SODIUM CHLORIDE 495 ML IV SCH ×2 (17:44→21:13)
[2017-09-22 19:47] LABS: URINE LEUK ESTERASE Negative (NEGATIVE)
[2017-09-23] MEDS: HEPARIN NA (PORCINE) 5,000 UNITS/ML 1ML VIAL IVPUSH PRN ×2 (00:12→08:00)
[2017-09-23] MEDS: CEFAZOLIN (PRE-DOCKED) 50 ML IVPB SCH ×3 (01:17→18:49)
[2017-09-23] MEDS: METOPROLOL TARTRATE 5 MG/5 ML VIAL IVPUSH SCH ×4 (02:24→21:15)
[2017-09-23] MEDS ORDERED: HEMOQUE CONTROL SOLUTION ONE ×2 (02:35→02:50)
[2017-09-23 06:20] LABS: MCH 29.2 pg (25.7-33.7); MEAN CELL VOLUME 88.4 fl (80-96); MEAN PLT VOLUME 6.8 fl (7.5-11.1); PLATELET COUNT 199 K/MM3 (134-434); RDW 16.8 % (11.9-15.9); WHITE BLOOD COUNT 14.6 K/mm3 (4.0-10.0)
--- NOTE | 2017-09-23 06:32 | PN ---
Physical Exam: 24H events: yesterday - CT chest showed persistent multi-loculated R sided pleural effusion ; small - mod multiloculated L pleural effusion; T9-10 small cortical erosions c /w acute spondylodiscitis/osteomyelitis, no gross paraspinal asbcess identified O/N: low grade fever, tachy's to 110's, NSR AM: BRB noted in rectal tube/bag with Hgb drop 7.4 --> 6.8; heparin gtt d/c and GI consulted SUBJECTIVE: Patient seen and examined in ICU. Shakes head no that he is not in pain; occasionally attempts to mouth words, unable to produce speech OBJECTIVE: Vital Signs Period Temp Pulse Resp BP Sys/Jeff Pulse Ox Last 24 Hr 99 F-100 F 92-111 14-30 148-168/77-107 98-100 Intake & Output 09/21/17 09/22/17 09/22/17 09/23/17 00:59 00:59 23:59 23:59 Intake Total 1091 Output Total 935 Balance 156 Weight 87.5 kg GENERAL: awake, alert, mildly tachypneic EYES: sclera anicteric, conjunctiva clear ENT: L nasal trumpet, moist mucous membranes LUNGS: anterior congestion, scattered rhonchi, R chest tube with minimal serosanginous drainage HEART: tachycardiac, regular rate, normal S1/S2 ABDOMEN: Soft, non-distended, non-tender, normoactive bowel sounds EXTREMITIES: 2+ UE edema, 1+ LE edema, R anterior norris pustular dermatitis improving Neuro: spontaneous moves all 4 extremities, muscle strength 3/5 in all 4 extremities : hines CBC, BMP 09/23/17 13:45 09/23/17 07:15 Laboratory Results - last 24 hr 09/22/17 09/22/17 09/22/17 06:00 06:00 06:00 WBC 13.8 H RBC 2.59 L Hgb 7.4 L Hct 22.9 L MCV 88.3 MCH 28.7 MCHC 32.5 RDW 16.3 H Plt Count 236 MPV 6.8 L D PTT (Actin FS) 43.0 H Sodium 144 Potassium 3.5 Chloride 111 H Carbon Dioxide 22 Anion Gap 11 BUN 86 H Creatinine 3.8 H Creat Clearance w eGFR 15.97 Random Glucose 114 H Calcium 7.8 L Total Bilirubin 0.7 AST 38 H ALT < 6 L Alkaline Phosphatase 195 H Total Protein 7.2 Albumin 1.7 L Urine Color Urine Appearance Urine pH Ur Specific [place] Urine Protein Urine Glucose (UA) Urine Ketones Urine Blood Urine Nitrite Urine Bilirubin Urine Urobilinogen Ur Leukocyte Esterase Urine RBC Urine WBC Ur Epithelial Cells Urine Bacteria Granular Casts Urine Mucus 09/22/17 09/22/17 09/22/17 13:45 14:30 21:10 WBC RBC Hgb Hct MCV MCH MCHC RDW Plt Count MPV PTT (Actin FS) 42.1 H 43.4 H Sodium Potassium Chloride Carbon Dioxide Anion Gap BUN Creatinine Creat Clearance w eGFR Random Glucose Calcium Total Bilirubin AST ALT Alkaline Phosphatase Total Protein Albumin Urine Color Ltyellow Urine Appearance Slcloudy Urine pH 5.0 Ur Specific [place] 1.012 Urine Protein 2+ H Urine Glucose (UA) Negative Urine Ketones Negative Urine Blood 2+ H Urine Nitrite Negative Urine Bilirubin Negative Urine Urobilinogen Negative Ur Leukocyte Esterase Negative Urine RBC 50 Urine WBC 14 Ur Epithelial Cells Rare Urine Bacteria Rare Granular Casts 34 Urine Mucus Rare Microbiology 09/22/17 13:45 Blood - Peripheral Venous Blood Culture - Preliminary NO GROWTH OBTAINED AFTER 24 HOURS, INCUBATION TO CONTINUE FOR 4 DAYS. 09/22/17 13:45 Blood - Peripheral Venous Blood Culture - Preliminary NO GROWTH OBTAINED AFTER 24 HOURS, INCUBATION TO CONTINUE FOR 4 DAYS. 09/19/17 10:23 Blood - Peripheral Venous Blood Culture - Preliminary NO GROWTH OBTAINED AFTER 96 HOURS, INCUBATION TO CONTINUE FOR 1 DAYS. 09/19/17 10:23 Blood - Peripheral Venous Blood Culture - Preliminary NO GROWTH OBTAINED AFTER 96 HOURS, INCUBATION TO CONTINUE FOR 1 DAYS. 09/19/17 10:00 Leg - Right Lower Gram Stain - Final 09/19/17 10:00 Leg - Right Lower Wound Culture - Final Diphtheroid/Corynebacterium Staphylococcus Coagulase Neg 09/17/17 16:14 Pleural Fluid Gram Stain - Final 09/17/17 16:14 Pleural Fluid Body Fluid Culture - Final NO GROWTH OF AEROBIC ORGANISMS AFTER 48 HOURS INCUBATION 09/17/17 16:14 Pleural Fluid Anaerobic Culture - Final NO ANAEROBES WERE ISOLATED 09/17/17 16:14 Pleural Fluid AFB Smear Concentration - Preliminary 09/17/17 16:14 Pleural Fluid Mycobacterial Culture - Preliminary 09/17/17 16:14 Pleural Fluid MAGI Preparation - Preliminary 09/17/17 16:14 Pleural Fluid Fungal Culture - Preliminary 09/12/17 09:20 Blood - Peripheral Venous Blood Culture - Final NO GROWTH AFTER 5 DAYS INCUBATION 09/12/17 09:15 Blood - Peripheral Venous Blood Culture - Final NO GROWTH AFTER 5 DAYS INCUBATION 09/10/17 10:00 Blood - Peripheral Venous Blood Culture - Final NO GROWTH AFTER 5 DAYS INCUBATION 09/10/17 10:00 Blood - Peripheral Venous Blood Culture - Final NO GROWTH AFTER 5 DAYS INCUBATION 09/08/17 05:45 Blood - Peripheral Venous Blood Culture - Final NO GROWTH AFTER 5 DAYS INCUBATION 09/08/17 05:45 Blood - Peripheral Venous Blood Culture - Final NO GROWTH AFTER 5 DAYS INCUBATION Active Medications Acetaminophen (Tylenol -) 650 mg NR Q6H PRN PRN Reason: FEVER OR PAIN Last Admin: 09/16/17 18:27 Dose: 650 mg Albuterol/Ipratropium (Duoneb -) 1 amp NEB Q6H PRN PRN Reason: SHORTNESS OF BREATH Last Admin: 09/23/17 19:39 Dose: 1 amp Chlorhexidine Gluconate (Peridex -) 15 ml MM BID [facility] Last Admin: 09/23/17 09:11 Dose: Not Given Ferrous Sulfate (Feosol -) 325 mg PO DAILY [facility] Last Admin: 09/23/17 09:11 Dose: Not Given Folic Acid (Folic Acid -) 1 mg PO DAILY [facility] Last Admin: 09/23/17 09:11 Dose: Not Given Cefazolin Sodium (Ancef 1gm Ivpb (Pre-Docked)) 50 mls @ 100 mls/hr IVPB Q8H-IV [facility] Last Admin: 09/23/17 18:49 Dose: 100 mls/hr Pantoprazole Sodium 80 mg/ (Sodium Chloride) 100 mls @ 10 mls/hr IVPB Q10H [facility] PRN Reason: 8 MG/HR Last Admin: 09/23/17 15:00 Dose: 10 mls/hr Metoprolol Tartrate (Lopressor Injection -) 5 mg IVPUSH Q6H-IV [facility] Last Admin: 09/23/17 14:12 Dose: 5 mg Multivitamins/Minerals (Theragran-M) 1 each PO DAILY [facility] Last Admin: 09/23/17 09:13 Dose: Not Given Mupirocin (Bactroban 2% Cream -) 1 applic TP BID [facility] Last Admin: 09/23/17 10:10 Dose: 1 applic Scopolamine HBr (Transderm-Scop -) 1 patch TD Q72H [facility] Last Admin: 09/22/17 08:28 Dose: 1 patch Sevelamer Carbonate (Renvela -) 800 mg PO TIDCM [facility] Last Admin: 09/23/17 17:23 Dose: Not Given Thiamine HCl (Vitamin B1 -) 100 mg PO DAILY [facility] Last Admin: 09/23/17 09:13 Dose: Not Given ASSESSMENT/PLAN: 66yo man with PMH of EtOH abuse and HTN who is admitted (08/31) for acute hypoxic respiratory failure requiring mechanical ventilation (09/02 - 09/19) and sepsis, now resolved and off pressors. Persistent pulmonary infectious source of loculated PNA, and now with acute thoracic osteomyletitis (T9-T10), currently being treated with Cefazolin. Now with acute blood loss anemia from GI bleed. Infectious source loculated PNA 2/2 cavitary PNA and MSSA bacteremia, now resolved cleared. ALISA (09/13) r/o endocarditis. Patient continues to have low grade fevers. Serial blood cultures collected 09/08, 09/10, 09/12 NGTD. Sputum cultures grew yeast-like organism and patient treated with Diflucan. RLE pustules noted on anterior norris, ID started acyclovir for possible suspicion of zoster; wound cultures showed only PMNS, no organisms #acute hypoxic respiratory failure -O2 as needed to maintain SpaO2>90% -suctioning via nasal trumpet prn -duo nebs q6h PRN, scopolamine patch for secretions, chest physiotherapy, incentive spirometer -considering TPA through CT to improve drainage; CT surgery following #GI bleed, likely 2/2 rectal tube ulcer and on heparin gtt -GI consulted -d/c heparin gtt, d/c rectal tube, started protonix gtt, transfusing 2Ux PRBCs -Trend H&H, transfuse Hgb<7 #sepsis 2/2 cavitary PNA, acute osteomylitis -R chest tube draining to water seal -Continue Cefazolin 1gm Q8H (started 09/16), will need prolonged course due to acute osteomyelitis -Acyclovir d/c over weekend (09/19-09/21) #Afib - CHADVASC score of 2 indicating AC -Cardiology following -consider PO amio for rate control (currently in NSR) -hold AC for now given acute GI bleed, long-term goal to convert to NOAC vs coumadin once medically stable #suspected chronic diastolic heart failure - ECHO 09/02/2017 rprobable preserved LV function, but can't R/O regional wall motion abnormality -metoprolol 25mg po BID --> switched to Lopressor 5mg IV Q6H while NPO #ALEXANDRA -Nephrology consulted -c3/c4 complement level wnl; PROSPER positive -Strict I&Os, hines -Renal dose for meds -Cont Ferrous Sulfate 325 mg PO DAILY [facility] -Cont Sevelamer Carbonate (Renvela) 800 mg PO TID #EtOH abuse -Monitor for signs of EtOH withdrawal -MVI, thiamine 100mg PO qd, folic acid 1mg PO daily #FEN -IVF held -monitor lytes -NPO, 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 Zakia Salter MD PGY-1 Visit type - Emergency Visit Emergency Visit: No - New Patient This patient is new to me today: No - Critical Care Critical Care patient: Yes Total Critical Care Time (in minutes): 45 Critical Care Statement: The care of this patient involved high complexity decision making to prevent further life threatening deterioration of the patient 's condition and/or to evaluate & treat vital organ system(s) failure or risk of failure.
--- NOTE | 2017-09-23 07:42 | PN ---
Progress Note, Physician Chief Complaint: ID Appears comfortable Yesterday I stopped Zovirax Risk benefit to putting him into worsening renal function along with fact that I am not sure of the origin of his RLE pustules ( resolving now) - Current Medication List Current Medications: Active Medications Acetaminophen (Tylenol -) 650 mg NR Q6H PRN PRN Reason: FEVER OR PAIN Last Admin: 09/16/17 18:27 Dose: 650 mg Albuterol/Ipratropium (Duoneb -) 1 amp NEB Q6H PRN PRN Reason: SHORTNESS OF BREATH Bacitracin (Bacitracin -) 1 applic TP DAILY [facility] Last Admin: 09/22/17 09:49 Dose: 1 applic Bacitracin/Polymyxin B Sulfate (Polysporin Ointment -) 1 applic TP DAILY [facility] Last Admin: 09/22/17 09:50 Dose: 1 applic Chlorhexidine Gluconate (Peridex -) 15 ml MM BID [facility] Last Admin: 09/22/17 21:05 Dose: Not Given Ferrous Sulfate (Feosol -) 325 mg PO DAILY [facility] Last Admin: 09/22/17 09:49 Dose: Not Given Folic Acid (Folic Acid -) 1 mg PO DAILY [facility] Last Admin: 09/22/17 09:50 Dose: Not Given Heparin Sodium (Porcine) (Heparin -) 1,000 unit IVPUSH PRN PRN PRN Reason: Heparin Last Admin: 09/23/17 00:12 Dose: 1,000 unit Heparin Sodium (Porcine) (Heparin -) 5,000 unit IVPUSH PRN PRN PRN Reason: Heparin Last Admin: 09/21/17 23:00 Dose: 5,000 unit Cefazolin Sodium (Ancef 1gm Ivpb (Pre-Docked)) 50 mls @ 100 mls/hr IVPB Q8H-IV [facility] Last Admin: 09/23/17 01:17 Dose: 100 mls/hr Heparin Sodium (Porcine) 25, (000 unit/ Sodium Chloride) 500 mls @ 20 mls/hr IV TITR [facility]; 1,000 UNIT/HR PRN Reason: Protocol Last Titration: 09/23/17 00:13 Dose: 1,850 unit/hr Metoprolol Tartrate (Lopressor Injection -) 5 mg IVPUSH Q6H-IV [facility] Last Admin: 09/23/17 02:24 Dose: 5 mg Multivitamins/Minerals (Theragran-M) 1 each PO DAILY [facility] Last Admin: 09/22/17 09:50 Dose: Not Given Scopolamine HBr (Transderm-Scop -) 1 patch TD Q72H [facility] Last Admin: 09/22/17 08:28 Dose: 1 patch Sevelamer Carbonate (Renvela -) 800 mg PO TIDCM [facility] Last Admin: 09/22/17 17:12 Dose: Not Given Thiamine HCl (Vitamin B1 -) 100 mg PO DAILY [facility] Last Admin: 09/22/17 09:50 Dose: Not Given - Objective Vital Signs: Vital Signs Temperature 99.9 F H 09/23/17 06:00 Pulse Rate 113 H 09/23/17 06:00 Respiratory Rate 27 H 09/23/17 06:00 Blood Pressure 151/97 09/23/17 06:00 O2 Sat by Pulse Oximetry (%) 98 09/22/17 22:00 Constitutional: Yes: No Distress HENT: Yes: WNL, Atraumatic Neck: Yes: WNL, Supple Cardiovascular: Yes: S1, S2 Respiratory: Yes: WNL, Regular, CTA Bilaterally, Other (chest tube). No: Rhonchi Gastrointestinal: Yes: Soft. No: Tenderness Edema: Yes Integumentary: Yes: Other (pustules resolving) Labs: CBC, BMP 09/23/17 06:10 09/22/17 06:00 INR, PTT INR 1.14 (0.82-1.09) 09/21/17 06:10 Problem List - Problems (1) Pneumonia Code(s): J18.9 - PNEUMONIA, UNSPECIFIED ORGANISM Qualifiers: Pneumonia type: aspiration pneumonia (2) Respiratory failure with hypoxia Code(s): J96.91 - RESPIRATORY FAILURE, UNSPECIFIED WITH HYPOXIA Qualifiers: Chronicity: acute Qualified Code(s): J96.01 - Acute respiratory failure with hypoxia; J96.01 - Acute respiratory failure with hypoxia; J96.01 - Acute respiratory failure with hypoxia (3) Staphylococcus aureus bacteremia Code(s): R78.81 - BACTEREMIA (5) Endocarditis due to Staphylococcus Code(s): I33.0 - ACUTE AND SUBACUTE INFECTIVE ENDOCARDITIS B95.8 - UNSP STAPHYLOCOCCUS THE CAUSE OF DISEASES CLASSD [facility] Assessment/Plan Microbiology 09/19/17 10:23 Blood - Peripheral Venous Blood Culture - Preliminary NO GROWTH OBTAINED AFTER 72 HOURS, INCUBATION TO CONTINUE FOR 2 DAYS. 09/19/17 10:23 Blood - Peripheral Venous Blood Culture - Preliminary NO GROWTH OBTAINED AFTER 72 HOURS, INCUBATION TO CONTINUE FOR 2 DAYS. Laboratory Tests 09/22/17 09/23/17 09/23/17 06:00 06:10 07:15 WBC 14.6 H Hgb 7.4 L Hct 22.2 L Plt Count 199 BUN 86 H Pending Creatinine 3.8 H Pending AST 38 H ALT < 6 L Alkaline Phosphatase 195 H Assessment Pustular dermatitis RLE ? bacterial MSSA bacteremia Last positive blood 09/06 MSSA cavitary pneumonia Loculated effusions Fever -I believe related to the pleural effusions Acute renal failure unclear etiology Atrial fibrillation Fatty liver Plan Continue Cefazolin TPA into lung to drain as opposed to VAT Send urine c/s Bactroban to right leg Stop Contact isolation Critical care time spent today 35 minutes Esau EMERY
[2017-09-23 07:49] LABS: ALBUMIN 1.8 g/dl (3.4-5.0); ANION GAP 15 (8-16); BILIRUBIN,TOTAL 0.7 mg/dL (0.2-1.0); CALCIUM 8.1 mg/dL (8.5-10.1); CO2 19 mmol/L (21-32); CREATININE 3.7 mg/dL (0.7-1.3); GLUCOSE,RANDOM 94 mg/dL (74-106); SGOT/AST 43 U/L (15-37); SGPT/ALT 7 U/L (12-78)
[2017-09-23 07:50] LABS: ALK PHOS 203 U/L (45-117); TOT PROT 7.3 g/dl (6.4-8.2)
[2017-09-23] MEDS: SEVELAMER CARBONATE 800 MG TAB (FP) PO SCH ×3 (08:00→17:23)
[2017-09-23] MEDS: BACITRACIN 15 GM TUBE TOPICAL OINTMENT TP SCH (09:09)
[2017-09-23] MEDS: FERROUS SO4 325 MG TABLET (FP) PO SCH (09:11)
[2017-09-23] MEDS: CHLORHEXIDINE GLUCONATE 0.12% 15ML CUP MM SCH ×2 (09:11→22:00)
[2017-09-23] MEDS: FOLIC ACID 1 MG TABLET (FP) PO SCH (09:11)
[2017-09-23] MEDS: BACITRACIN/POLYMYXIN B SULFATE 15 GM TUBE TP SCH (09:12)
[2017-09-23] MEDS: MULTIVITAMINS THER W-MINERALS COMBO TABLET (FP) PO SCH (09:13)
[2017-09-23] MEDS: THIAMINE HCL 100 MG TABLET (FP) PO SCH (09:13)
[2017-09-23] MEDS: MUPIROCIN CA 2% TOPICAL CREAM 15 GM TUBE TP SCH ×2 (10:10→21:30)
--- NOTE | 2017-09-23 10:32 | PN ---
Progress Note, Physician History of Present Illness: Comfortable on NC, telemetry shows sinus tachycardia. - Current Medication List Current Medications: Active Medications Acetaminophen (Tylenol -) 650 mg NR Q6H PRN PRN Reason: FEVER OR PAIN Last Admin: 09/16/17 18:27 Dose: 650 mg Albuterol/Ipratropium (Duoneb -) 1 amp NEB Q6H PRN PRN Reason: SHORTNESS OF BREATH Chlorhexidine Gluconate (Peridex -) 15 ml MM BID [facility] Last Admin: 09/23/17 09:11 Dose: Not Given Ferrous Sulfate (Feosol -) 325 mg PO DAILY [facility] Last Admin: 09/23/17 09:11 Dose: Not Given Folic Acid (Folic Acid -) 1 mg PO DAILY [facility] Last Admin: 09/23/17 09:11 Dose: Not Given Heparin Sodium (Porcine) (Heparin -) 1,000 unit IVPUSH PRN PRN PRN Reason: Heparin Last Admin: 09/23/17 08:00 Dose: 1,000 unit Heparin Sodium (Porcine) (Heparin -) 5,000 unit IVPUSH PRN PRN PRN Reason: Heparin Last Admin: 09/21/17 23:00 Dose: 5,000 unit Cefazolin Sodium (Ancef 1gm Ivpb (Pre-Docked)) 50 mls @ 100 mls/hr IVPB Q8H-IV [facility] Last Admin: 09/23/17 09:09 Dose: 100 mls/hr Heparin Sodium (Porcine) 25, (000 unit/ Sodium Chloride) 500 mls @ 20 mls/hr IV TITR [facility]; 1,000 UNIT/HR PRN Reason: Protocol Last Titration: 09/23/17 08:00 Dose: 1,950 unit/hr Metoprolol Tartrate (Lopressor Injection -) 5 mg IVPUSH Q6H-IV [facility] Last Admin: 09/23/17 09:14 Dose: 5 mg Multivitamins/Minerals (Theragran-M) 1 each PO DAILY [facility] Last Admin: 09/23/17 09:13 Dose: Not Given Mupirocin (Bactroban 2% Cream -) 1 applic TP BID [facility] Last Admin: 09/23/17 10:10 Dose: 1 applic Scopolamine HBr (Transderm-Scop -) 1 patch TD Q72H [facility] Last Admin: 09/22/17 08:28 Dose: 1 patch Sevelamer Carbonate (Renvela -) 800 mg PO TIDCM [facility] Last Admin: 09/23/17 08:00 Dose: Not Given Thiamine HCl (Vitamin B1 -) 100 mg PO DAILY [facility] Last Admin: 09/23/17 09:13 Dose: Not Given - Objective Vital Signs: Vital Signs Temperature 98.7 F 09/23/17 10:00 Pulse Rate 116 H 09/23/17 10:22 Respiratory Rate 27 H 09/23/17 10:00 Blood Pressure 139/120 09/23/17 10:00 O2 Sat by Pulse Oximetry (%) 99 09/23/17 10:22 Constitutional: Yes: No Distress, Calm Neck: Yes: Supple Cardiovascular: Yes: Tachycardia Respiratory: Yes: Regular, Diminished, On Nasal O2 Gastrointestinal: Yes: Soft, Hypoactive Bowel Sounds Edema: Yes Edema: LLE: Trace, RLE: Trace Labs: CBC, BMP 09/23/17 06:10 09/23/17 07:15 INR, PTT INR 1.14 (0.82-1.09) 09/21/17 06:10 Problem List - Problems (1) Pneumonia Code(s): J18.9 - PNEUMONIA, UNSPECIFIED ORGANISM Qualifiers: Pneumonia type: aspiration pneumonia (2) Respiratory failure with hypoxia Code(s): J96.91 - RESPIRATORY FAILURE, UNSPECIFIED WITH HYPOXIA Qualifiers: Chronicity: acute Qualified Code(s): J96.01 - Acute respiratory failure with hypoxia; J96.01 - Acute respiratory failure with hypoxia; J96.01 - Acute respiratory failure with hypoxia (3) Staphylococcus aureus bacteremia Code(s): R78.81 - BACTEREMIA (4) Acute kidney injury Code(s): N17.9 - ACUTE KIDNEY FAILURE, UNSPECIFIED (6) Acute diastolic heart failure Code(s): I50.31 - ACUTE DIASTOLIC (CONGESTIVE) HEART FAILURE (7) History of alcohol abuse Code(s): Z87.898 - PERSONAL HISTORY OF OTHER SPECIFIED CONDITIONS (8) Anemia Code(s): D64.9 - ANEMIA, UNSPECIFIED Qualifiers: Anemia type: unspecified type Qualified Code(s): D64.9 - Anemia, unspecified; D64.9 - Anemia, unspecified (9) Discitis of cervicothoracic region Code(s): M46.43 - DISCITIS, UNSPECIFIED, CERVICOTHORACIC REGION Assessment/Plan 1. Acute hypoxic respiratory failure, extubated, pulmonary infiltrates/ pulmonary edema 2. Cavitary pneumonia, MSSA bacteremia suspect septic emboli, post septic shock , negative for endocarditis on ALISA 3. Probable diastolic LV dysfunction with congestive heart failure, volume overload, resolving 4. History of alcohol dependence 5. Acute renal insufficiency 6. Anemia 7. Paroxysmal afib [id number] 8. T9-T10 discitis, osteo 9. Loculated effusion post chest tube, planned for tPA PLAN: 1. BD as needed, wean FIO2 as tolerated 2. Complete abx course per ID service, acyclovir d/diandra 3. DVT and GI prophylaxis 4. Metoprolol IV pending re-initiation of oral intake. 5. Heparin drip for now and then chcf use such as Warfarin or NOAC is to be decided 6. Continue management as per critical care team. Chest tube management.
--- NOTE | 2017-09-23 11:55 | PN ---
Teaching Attending Note Name of Resident: Lydia Salter ATTENDING PHYSICIAN STATEMENT I saw and evaluated the patient. I reviewed the resident's note and discussed the case with the resident. I agree with the resident's findings and plan as documented. SUBJECTIVE:mildly tachypnic OBJECTIVE: Last Vital Signs Temp Pulse Resp BP Pulse Ox 98.7 F 116 H 27 H 139/120 99 09/23/17 10:00 09/23/17 10:22 09/23/17 10:00 09/23/17 10:00 09/23/17 10:22 Intake & Output 09/21/17 09/22/17 09/22/17 09/23/17 00:59 00:59 23:59 23:59 Intake Total 447 Output Total 410 Balance 37 Weight 192 lb 14.472 oz General mild tachypnic. minimal secretions CV S1 S2 RRR no murmur/rub/gallop Lungs course breath sounds diffusely decreased breath sounds at bases abdomen soft NT/ND Extremities trace pitting edema pustular rash on anterior norris of RLE, moves all 4 extremities strength L >R ASSESSMENT AND PLAN: 66 yo M with PMH alcohol abuse, HTN who presented to the ER after being found on the floor. 1. Acute hypoxic respiratory failure- likely due to cavitary PNA. s/p extubated 09/19. currently 100% on 4L NC. will need frequent suctioning, chest PT. improved after deep suctioning. low threshold for re-intubation. crit care on board. 2. Sepsis secondary to cavitary healthcare-associated pneumonia, MSSA bacteremia - multiple low grade fevers. Tm 100.7. CT chest showing persistent loculated effusions R>L. also showed discitis/OM of T9-T10. spoke with ID and no change in management at this time. will cont Cefazolin at this time. 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 TPA to be placed through chest tube to break up loculated effusions. CT surgery consulted. 3. New onset afib- rate controlled. metoprolol IVP prn. on hep ggt. will convert to NOAC vs coumadin once medically optimized. 4. Acute kidney injury with hyperphosphatemia- Cr stabilized. goal for net negative daily. good UOP. nephrology on board. 5. Anemia- s/p 2 units PRBC this admission. on iron supplementations. no indication for txn at this time. 6. Hepatic transaminitis- stable. US shows hepatosplenomegaly and fatty infiltration of liver 7. Thrombocytopenia- Secondary to alcohol, splenomegaly. now stable 8. HTN- initially hypotensive. now off pressors. cont medications 9. 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 DVT prophylaxis- heparin ggt 12. Dysphagia-likely due to weakness. repeat swallow evaluations. maintain NPO including medications. on TF. nutrition on board 13. MICU monitoring as breathing very labile The care of this patient involved high complexity decision making to prevent further life threatening deterioration of the patient's condition and/or to evaluate & treat vital organ system(s) failure or risk of failure. 40 mins
[2017-09-23 14:04] LABS: MCH 28.1 pg (25.7-33.7); MCHC 31.5 g/dl (32.0-35.9); MEAN PLT VOLUME 6.4 fl (7.5-11.1); PLATELET COUNT 191 K/MM3 (134-434); RDW 16.8 % (11.9-15.9)
--- NOTE | 2017-09-23 14:20 | PN ---
Physical Exam: SUBJECTIVE: Patient seen and examined, remains extubated although nonverbal, with accessory muscle use during respiration. OBJECTIVE: Vital Signs Period Temp Pulse Resp BP Sys/Jeff Pulse Ox Last 24 Hr 98.7 F-100.7 F 94-121 14-30 139-165/77-120 98-100 GENERAL: The patient is awake, alert, non verbal LUNGS: diminished breath sounds; scattered rhonchi HEART: Regular rate and rhythm, S1, S2 without murmur, rub or gallop. ABDOMEN: Soft, nontender, nondistended, normoactive bowel sounds, EXTREMITIES: 2+ pulses, warm, well-perfused, no edema. RLE pustules; Laboratory Results - last 24 hr 09/22/17 09/22/17 09/22/17 13:45 14:30 21:10 WBC RBC Hgb Hct MCV MCH MCHC RDW Plt Count MPV PTT (Actin FS) 42.1 H 43.4 H Sodium Potassium Chloride Carbon Dioxide Anion Gap BUN Creatinine Creat Clearance w eGFR Random Glucose Calcium Total Bilirubin AST ALT Alkaline Phosphatase Total Protein Albumin Urine Color Ltyellow Urine Appearance Slcloudy Urine pH 5.0 Ur Specific [place] 1.012 Urine Protein 2+ H Urine Glucose (UA) Negative Urine Ketones Negative Urine Blood 2+ H Urine Nitrite Negative Urine Bilirubin Negative Urine Urobilinogen Negative Ur Leukocyte Esterase Negative Urine RBC 50 Urine WBC 14 Ur Epithelial Cells Rare Urine Bacteria Rare Granular Casts 34 Urine Mucus Rare 09/23/17 09/23/17 09/23/17 06:00 06:10 07:15 WBC 14.6 H RBC 2.52 L Hgb 7.4 L Hct 22.2 L MCV 88.4 MCH 29.2 MCHC 33.0 RDW 16.8 H Plt Count 199 MPV 6.8 L PTT (Actin FS) 45.3 H Sodium 149 H Potassium 3.8 Chloride 115 H Carbon Dioxide 19 L Anion Gap 15 BUN 81 H Creatinine 3.7 H Creat Clearance w eGFR 16.47 Random Glucose 94 Calcium 8.1 L Total Bilirubin 0.7 AST 43 H ALT 7 L Alkaline Phosphatase 203 H Total Protein 7.3 Albumin 1.8 L Urine Color Urine Appearance Urine pH Ur Specific [place] Urine Protein Urine Glucose (UA) Urine Ketones Urine Blood Urine Nitrite Urine Bilirubin Urine Urobilinogen Ur Leukocyte Esterase Urine RBC Urine WBC Ur Epithelial Cells Urine Bacteria Granular Casts Urine Mucus 09/23/17 13:45 WBC 15.0 H RBC 2.41 L Hgb 6.8 L* Hct 21.5 L MCV 89.0 MCH 28.1 MCHC 31.5 L RDW 16.8 H Plt Count 191 MPV 6.4 L PTT (Actin FS) Sodium Potassium Chloride Carbon Dioxide Anion Gap BUN Creatinine Creat Clearance w eGFR Random Glucose Calcium Total Bilirubin AST ALT Alkaline Phosphatase Total Protein Albumin Urine Color Urine Appearance Urine pH Ur Specific [place] Urine Protein Urine Glucose (UA) Urine Ketones Urine Blood Urine Nitrite Urine Bilirubin Urine Urobilinogen Ur Leukocyte Esterase Urine RBC Urine WBC Ur Epithelial Cells Urine Bacteria Granular Casts Urine Mucus Active Medications Generic Name Dose Route Start Last Admin Trade Name Freq PRN Reason Stop Dose Admin Acetaminophen 650 mg 09/07/17 05:53 09/16/17 18:27 Tylenol - NR 650 mg Q6H PRN Administration FEVER OR PAIN Albuterol/Ipratropium 1 amp 09/19/17 14:55 Duoneb - NEB Q6H PRN SHORTNESS OF BREATH Chlorhexidine Gluconate 15 ml 09/08/17 12:30 09/23/17 09:11 Peridex - MM Not Given BID [facility] Ferrous Sulfate 325 mg 09/05/17 12:00 09/23/17 09:11 Feosol - PO Not Given DAILY [facility] Folic Acid 1 mg 09/02/17 10:00 09/23/17 09:11 Folic Acid - PO Not Given DAILY [facility] Cefazolin Sodium 50 mls @ 100 mls/hr 09/16/17 10:00 09/23/17 09:09 Ancef 1gm Ivpb (Pre-Docked) IVPB 100 mls/hr Q8H-IV [facility] Administration Pantoprazole Sodium 80 mg/ 100 mls @ 10 mls/hr 09/23/17 14:30 Sodium Chloride IVPB Q10H [facility] 8 MG/HR Metoprolol Tartrate 5 mg 09/20/17 16:31 09/23/17 14:12 Lopressor Injection - IVPUSH 5 mg Q6H-IV [facility] Administration Multivitamins/Minerals 1 each 09/02/17 10:00 09/23/17 09:13 Theragran-M PO Not Given DAILY [facility] Mupirocin 1 applic 09/23/17 10:00 09/23/17 10:10 Bactroban 2% Cream - TP 1 applic BID [facility] Administration Scopolamine HBr 1 patch 09/22/17 08:00 09/22/17 08:28 Transderm-Scop - TD 1 patch Q72H [facility] Administration Sevelamer Carbonate 800 mg 09/12/17 17:30 09/23/17 12:00 Renvela - PO Not Given TIDCM [facility] Thiamine HCl 100 mg 09/02/17 10:00 09/23/17 09:13 Vitamin B1 - PO Not Given DAILY [facility] ASSESSMENT/PLAN: 66 year old male with a past medical history of alcohol dependance found unresponsive on the floor; s/p acute hypoxic respiratory failure complicated by MSSA bacteremia with loculated pleural effusions. #neuro -awake; alert; non verbal ; baseline unknown ; may be due to prolonged intubation #respiratory: -acute hypoxic respiratory failure: s/p extubation; on NC sating .90% o2 -HOB elevated -aspiration precautions -may need trach due to intermittent respiratory difficulty -loculated pleural effusions; with chest tube; currently not draining ; question was to use tpa to dissolve possible clot; although had rectal bleeding today; therefore will not give tpa at this time -cont IV antibiotics; as per ID for PNA/mssa bactermia #cardiovascular: -LV diastolic failure; hold Lasix for now due to samra -paroxysmal atrial fibrillation; hold heparin for now due to rectal bleed -cont lopressor sched #renal -samra most likey sec to sepsis -renal on board #GI -acute GI bleed -blood coming from rectal tube -viviane d/c heparin ggt; -re consult GI -transfuse 2 U PRBD; repeat cbcb to monitor response -start protonix drip #ID -PNA: cont IV antibiotics -id appreciated FEN fluids ; currently held electrolytes; wnl deit: npo due to bleed VTE; scds GI on protonix drip Disposition: ICU monitoring Problem List - Problems (1) Endocarditis due to Staphylococcus Code(s): I33.0 - ACUTE AND SUBACUTE INFECTIVE ENDOCARDITIS B95.8 - UNSP STAPHYLOCOCCUS THE CAUSE OF DISEASES CLASSD ELSWHR (2) History of alcohol abuse Code(s): Z87.898 - PERSONAL HISTORY OF OTHER SPECIFIED CONDITIONS (3) Hypokalemia Code(s): E87.6 - HYPOKALEMIA (4) Hyponatremia Code(s): E87.1 - HYPO-OSMOLALITY AND HYPONATREMIA (5) Pneumonia Code(s): J18.9 - PNEUMONIA, UNSPECIFIED ORGANISM Qualifiers: Pneumonia type: aspiration pneumonia (6) Respiratory failure with hypoxia Code(s): J96.91 - RESPIRATORY FAILURE, UNSPECIFIED WITH HYPOXIA Qualifiers: Chronicity: acute Qualified Code(s): J96.01 - Acute respiratory failure with hypoxia; J96.01 - Acute respiratory failure with hypoxia; J96.01 - Acute respiratory failure with hypoxia (8) Staphylococcus aureus bacteremia Code(s): R78.81 - BACTEREMIA Visit type - Emergency Visit Emergency Visit: Yes ED Registration Date: 08/31/17 Care time: The patient presented to the Emergency Department on the above date and was hospitalized for further evaluation of their emergent condition. - New Patient This patient is new to me today: Yes Date on this admission: 09/23/17 - Critical Care Critical Care patient: Yes Total Critical Care Time (in minutes): 35 Critical Care Statement: The care of this patient involved high complexity decision making to prevent further life threatening deterioration of the patient 's condition and/or to evaluate & treat vital organ system(s) failure or risk of failure.
--- NOTE | 2017-09-23 14:46 | PN ---
Teaching Attending Note Name of Resident: Tejal Ortiz ATTENDING PHYSICIAN STATEMENT I saw and evaluated the patient. I reviewed the resident's note and discussed the case with the resident. I agree with the resident's findings and plan as documented. SUBJECTIVE: Pt seen and examined in the ICU. Not speaking, low graade fever this AM. Episode of melena. OBJECTIVE: Last Vital Signs Temp Pulse Resp BP Pulse Ox 98.7 F 113 H 27 H 162/95 99 09/23/17 10:00 09/23/17 14:12 09/23/17 14:00 09/23/17 14:12 09/23/17 10:22 Intake & Output 09/21/17 09/22/17 09/22/17 09/23/17 00:59 00:59 23:59 23:59 Intake Total 447 Output Total 410 Balance 37 Weight 192 lb 14.472 oz Gen: mildly tachypneic at rest Heart: tachycardic, regular Lung: scattered rhonchi Abd: soft, nontender Ext: no edema Chest tube: no air leak, minimal drainage CBC, BMP 09/23/17 13:45 09/23/17 07:15 Active Medications Acetaminophen (Tylenol -) 650 mg NR Q6H PRN PRN Reason: FEVER OR PAIN Last Admin: 09/16/17 18:27 Dose: 650 mg Albuterol/Ipratropium (Duoneb -) 1 amp NEB Q6H PRN PRN Reason: SHORTNESS OF BREATH Chlorhexidine Gluconate (Peridex -) 15 ml MM BID [facility] Last Admin: 09/23/17 09:11 Dose: Not Given Ferrous Sulfate (Feosol -) 325 mg PO DAILY [facility] Last Admin: 09/23/17 09:11 Dose: Not Given Folic Acid (Folic Acid -) 1 mg PO DAILY [facility] Last Admin: 09/23/17 09:11 Dose: Not Given Cefazolin Sodium (Ancef 1gm Ivpb (Pre-Docked)) 50 mls @ 100 mls/hr IVPB Q8H-IV [facility] Last Admin: 09/23/17 09:09 Dose: 100 mls/hr Pantoprazole Sodium 80 mg/ (Sodium Chloride) 100 mls @ 10 mls/hr IVPB Q10H [facility] PRN Reason: 8 MG/HR Metoprolol Tartrate (Lopressor Injection -) 5 mg IVPUSH Q6H-IV [facility] Last Admin: 09/23/17 14:12 Dose: 5 mg Multivitamins/Minerals (Theragran-M) 1 each PO DAILY [facility] Last Admin: 09/23/17 09:13 Dose: Not Given Mupirocin (Bactroban 2% Cream -) 1 applic TP BID [facility] Last Admin: 09/23/17 10:10 Dose: 1 applic Scopolamine HBr (Transderm-Scop -) 1 patch TD Q72H [facility] Last Admin: 09/22/17 08:28 Dose: 1 patch Sevelamer Carbonate (Renvela -) 800 mg PO TIDCM [facility] Last Admin: 09/23/17 12:00 Dose: Not Given Thiamine HCl (Vitamin B1 -) 100 mg PO DAILY [facility] Last Admin: 09/23/17 09:13 Dose: Not Given ASSESSMENT AND PLAN: s/p Acute Hypoxic Respiratory Failure Pneumonia MSSA Bacteremia Loculated Pleural Effusions LV Diastolic Dysfunction Paroxysmal Atrial Fibrillation Acute Kidney Injury GI Bleed Acute Blood Loss Anemia - continue antibiotics - hold heparin gtt - start protonix gtt - GI evaluation - monitor H/H, coags - was planning on intra-pleural tPA but will hold off until GI bleed resolved - O2 to keep SpO2 >90% - aspiration precautions - free water replacement - DVT prophylaxis - continue ICU monitoring critical care time spent in reviewing chart, evaluating patient and formulating plan 40 min
[2017-09-23] MEDS: PANTOPRAZOLE SODIUM 80 MG in SODIUM CHLORIDE 100 ML IVPB SCH (15:00)
--- NOTE | 2017-09-23 15:08 | PN ---
Progress Note, Physician History of Present Illness: Called for BRBPR since this am, small amounts, oozing, in rectal tube/bag. Rectal tube has been in place for few days. Stools are not liquid. The patient is anticoagulated with heparin, which has been stopped today. No melena, hematemesis, vomiting reported. Hgb 6.8 g/dl today. Hgb has been fluctuating between 8-7 g/dl for the last 7+ days. - Current Medication List Current Medications: Active Medications Acetaminophen (Tylenol -) 650 mg NR Q6H PRN PRN Reason: FEVER OR PAIN Last Admin: 09/16/17 18:27 Dose: 650 mg Albuterol/Ipratropium (Duoneb -) 1 amp NEB Q6H PRN PRN Reason: SHORTNESS OF BREATH Chlorhexidine Gluconate (Peridex -) 15 ml MM BID [facility] Last Admin: 09/23/17 09:11 Dose: Not Given Ferrous Sulfate (Feosol -) 325 mg PO DAILY [facility] Last Admin: 09/23/17 09:11 Dose: Not Given Folic Acid (Folic Acid -) 1 mg PO DAILY [facility] Last Admin: 09/23/17 09:11 Dose: Not Given Cefazolin Sodium (Ancef 1gm Ivpb (Pre-Docked)) 50 mls @ 100 mls/hr IVPB Q8H-IV [facility] Last Admin: 09/23/17 09:09 Dose: 100 mls/hr Pantoprazole Sodium 80 mg/ (Sodium Chloride) 100 mls @ 10 mls/hr IVPB Q10H [facility] PRN Reason: 8 MG/HR Last Admin: 09/23/17 15:00 Dose: 10 mls/hr Metoprolol Tartrate (Lopressor Injection -) 5 mg IVPUSH Q6H-IV [facility] Last Admin: 09/23/17 14:12 Dose: 5 mg Multivitamins/Minerals (Theragran-M) 1 each PO DAILY [facility] Last Admin: 09/23/17 09:13 Dose: Not Given Mupirocin (Bactroban 2% Cream -) 1 applic TP BID [facility] Last Admin: 09/23/17 10:10 Dose: 1 applic Scopolamine HBr (Transderm-Scop -) 1 patch TD Q72H [facility] Last Admin: 09/22/17 08:28 Dose: 1 patch Sevelamer Carbonate (Renvela -) 800 mg PO TIDCM [facility] Last Admin: 09/23/17 12:00 Dose: Not Given Thiamine HCl (Vitamin B1 -) 100 mg PO DAILY [facility] Last Admin: 09/23/17 09:13 Dose: Not Given - Objective Vital Signs: Vital Signs Temperature 99.7 F H 09/23/17 14:45 Pulse Rate 98 H 09/23/17 14:45 Respiratory Rate 27 H 09/23/17 14:45 Blood Pressure 164/93 09/23/17 14:45 O2 Sat by Pulse Oximetry (%) 99 09/23/17 10:22 Constitutional: Yes: Calm Respiratory: Yes: Other (has naso-oral airway, O2 NC) Gastrointestinal: Yes: Soft. No: Tenderness, Vomiting Neurological: Yes: Alert Labs: CBC, BMP 09/23/17 13:45 09/23/17 07:15 INR, PTT INR 1.14 (0.82-1.09) 09/21/17 06:10 PTT 45 CBCD WBC 15.0 K/mm3 (4.0-10.0) H 09/23/17 13:45 RBC 2.41 M/mm3 (4.00-5.60) L 09/23/17 13:45 Hgb 6.8 GM/dL (11.7-16.9) L* 09/23/17 13:45 Hct 21.5 % (35.4-49) L 09/23/17 13:45 MCV 89.0 fl (80-96) 09/23/17 13:45 MCHC 31.5 g/dl (32.0-35.9) L 09/23/17 13:45 RDW 16.8 % (11.9-15.9) H 09/23/17 13:45 Plt Count 191 K/MM3 (134-434) 09/23/17 13:45 MPV 6.4 fl (7.5-11.1) L 09/23/17 13:45 CMP Sodium 149 mmol/L (136-145) H 09/23/17 07:15 Potassium 3.8 mmol/L (3.5-5.1) 09/23/17 07:15 Chloride 115 mmol/L (98-107) H 09/23/17 07:15 Carbon Dioxide 19 mmol/L (21-32) L 09/23/17 07:15 Anion Gap 15 (8-16) 09/23/17 07:15 BUN 81 mg/dL (7-18) H 09/23/17 07:15 Creatinine 3.7 mg/dL (0.7-1.3) H 09/23/17 07:15 Creat Clearance w eGFR 16.47 (>60) 09/23/17 07:15 Calcium 8.1 mg/dL (8.5-10.1) L 09/23/17 07:15 Total Bilirubin 0.7 mg/dL (0.2-1.0) 09/23/17 07:15 AST 43 U/L (15-37) H 09/23/17 07:15 ALT 7 U/L (12-78) L 09/23/17 07:15 Alkaline Phosphatase 203 U/L (45-117) H 09/23/17 07:15 Total Protein 7.3 g/dl (6.4-8.2) 09/23/17 07:15 Albumin 1.8 g/dl (3.4-5.0) L 09/23/17 07:15 Problem List - Problems (1) Rectal bleeding Code(s): K62.5 - HEMORRHAGE OF ANUS AND RECTUM (2) Gastric ulcer Code(s): K25.9 - GASTRIC ULCER, UNSP ACUTE OR CHRONIC, W/O HEMOR OR PERF (3) History of alcohol abuse Code(s): Z87.898 - PERSONAL HISTORY OF OTHER SPECIFIED CONDITIONS (4) Respiratory failure with hypoxia Code(s): J96.91 - RESPIRATORY FAILURE, UNSPECIFIED WITH HYPOXIA Qualifiers: Chronicity: acute Qualified Code(s): J96.01 - Acute respiratory failure with hypoxia; J96.01 - Acute respiratory failure with hypoxia; J96.01 - Acute respiratory failure with hypoxia (5) Staphylococcus aureus bacteremia Code(s): R78.81 - BACTEREMIA Assessment/Plan likely rectal tube-related ulcer bleeding in anticoagulated patinet. Agree with stopping aniticoagulation Remove rectal tube Transfuse above 7 g/dl Hgb after transfusion and in AM Close monitoring as per ICU protocols. Urgent flex-sig, or colonoscopy if continues to bleed. Otherwise would avoid procedures requiring sedation until pulmonary status improves. Discussed with covering nurse and residents.
--- NOTE | 2017-09-23 15:25 | CONSULT ---
Consult - text type - Consultation Consultation Note: Thoracic Surgery Consult: Pt seen/examined. Briefly 66M admitted with respiratory distress in early August and left sided chest pain. CT showed no large effusions or PNA but old rib fractures. CT 1 week later showed increasing effusions R>L. Presumably aspirated at some point and with Staph PNA. Pigtail placed. Did not grow bacteria. He was intubated and is now extubated but tenuous respiratory agrawal. Also having GI bleed. Respiratory status is unstable but do not see VATS as having large impact on him. I believe he will likely need tracheostomy if does not improve in next few days. If GI bleed stable, consider TPA to right side. He has an extremely high risk of complications and/or mortality due to his comorbidities including alcohol abuse. I have spent >40 minutes on this consultation with >50% in coordination of care with the ICU PA, Dr. Mims, Dr. Koehler and reviewing images, history, and labs.
--- NOTE | 2017-09-23 15:36 | PN ---
Progress Note, Physician History of Present Illness: Pt seen and examined at bedside. He remains in the ICU. He had melena today. - Current Medication List Current Medications: Active Medications Acetaminophen (Tylenol -) 650 mg NR Q6H PRN PRN Reason: FEVER OR PAIN Last Admin: 09/16/17 18:27 Dose: 650 mg Albuterol/Ipratropium (Duoneb -) 1 amp NEB Q6H PRN PRN Reason: SHORTNESS OF BREATH Chlorhexidine Gluconate (Peridex -) 15 ml MM BID [facility] Last Admin: 09/23/17 09:11 Dose: Not Given Ferrous Sulfate (Feosol -) 325 mg PO DAILY [facility] Last Admin: 09/23/17 09:11 Dose: Not Given Folic Acid (Folic Acid -) 1 mg PO DAILY [facility] Last Admin: 09/23/17 09:11 Dose: Not Given Cefazolin Sodium (Ancef 1gm Ivpb (Pre-Docked)) 50 mls @ 100 mls/hr IVPB Q8H-IV [facility] Last Admin: 09/23/17 09:09 Dose: 100 mls/hr Pantoprazole Sodium 80 mg/ (Sodium Chloride) 100 mls @ 10 mls/hr IVPB Q10H [facility] PRN Reason: 8 MG/HR Last Admin: 09/23/17 15:00 Dose: 10 mls/hr Metoprolol Tartrate (Lopressor Injection -) 5 mg IVPUSH Q6H-IV [facility] Last Admin: 09/23/17 14:12 Dose: 5 mg Multivitamins/Minerals (Theragran-M) 1 each PO DAILY [facility] Last Admin: 09/23/17 09:13 Dose: Not Given Mupirocin (Bactroban 2% Cream -) 1 applic TP BID [facility] Last Admin: 09/23/17 10:10 Dose: 1 applic Scopolamine HBr (Transderm-Scop -) 1 patch TD Q72H [facility] Last Admin: 09/22/17 08:28 Dose: 1 patch Sevelamer Carbonate (Renvela -) 800 mg PO TIDCM [facility] Last Admin: 09/23/17 12:00 Dose: Not Given Thiamine HCl (Vitamin B1 -) 100 mg PO DAILY [facility] Last Admin: 09/23/17 09:13 Dose: Not Given - Objective Vital Signs: Vital Signs Temperature 99.7 F H 09/23/17 14:45 Pulse Rate 98 H 09/23/17 14:45 Respiratory Rate 27 H 09/23/17 14:45 Blood Pressure 164/93 09/23/17 14:45 O2 Sat by Pulse Oximetry (%) 99 09/23/17 10:22 Constitutional: Yes: Calm HENT: Yes: Atraumatic Cardiovascular: Yes: S1, S2 Respiratory: Yes: On Nasal O2, Rhonchi Gastrointestinal: Yes: Soft, Melena Genitourinary: Yes: Freeman Present Musculoskeletal: Yes: Muscle Weakness Edema: Yes Neurological: Yes: Confusion Labs: CBC, BMP 09/23/17 13:45 09/23/17 07:15 INR, PTT INR 1.14 (0.82-1.09) 09/21/17 06:10 Problem List - Problems (1) Acute kidney injury Code(s): N17.9 - ACUTE KIDNEY FAILURE, UNSPECIFIED (2) Anemia Code(s): D64.9 - ANEMIA, UNSPECIFIED Qualifiers: Anemia type: unspecified type Qualified Code(s): D64.9 - Anemia, unspecified; D64.9 - Anemia, unspecified (3) Hyponatremia Code(s): E87.1 - HYPO-OSMOLALITY AND HYPONATREMIA (4) Respiratory failure with hypoxia Code(s): J96.91 - RESPIRATORY FAILURE, UNSPECIFIED WITH HYPOXIA Qualifiers: Chronicity: acute Qualified Code(s): J96.01 - Acute respiratory failure with hypoxia; J96.01 - Acute respiratory failure with hypoxia; J96.01 - Acute respiratory failure with hypoxia (5) Staphylococcus aureus bacteremia Code(s): R78.81 - BACTEREMIA (6) Withdrawal symptoms, alcohol Code(s): F10.239 - ALCOHOL DEPENDENCE WITH WITHDRAWAL, UNSPECIFIED Qualifiers : Complication of substance-induced condition: uncomplicated Qualified Code(s): F10.230 - Alcohol dependence with withdrawal, uncomplicated; F10.230 - Alcohol dependence with withdrawal, uncomplicated; F10.230 - Alcohol dependence with withdrawal, uncomplicated (7) Abuse, drug or alcohol Code(s): F19.10 - OTHER PSYCHOACTIVE SUBSTANCE ABUSE, UNCOMPLICATED Assessment/Plan Current Medications Generic Name Dose Route Start Last Admin Trade Name Freq PRN Reason Stop Dose Admin Acetaminophen 650 mg 09/07/17 05:53 09/16/17 18:27 Tylenol - NR 650 mg Q6H PRN Administration FEVER OR PAIN Albuterol/Ipratropium 1 amp 09/19/17 14:55 Duoneb - NEB Q6H PRN SHORTNESS OF BREATH Chlorhexidine Gluconate 15 ml 09/08/17 12:30 09/23/17 09:11 Peridex - MM Not Given BID [facility] Ferrous Sulfate 325 mg 09/05/17 12:00 09/23/17 09:11 Feosol - PO Not Given DAILY [facility] Folic Acid 1 mg 09/02/17 10:00 09/23/17 09:11 Folic Acid - PO Not Given DAILY [facility] Cefazolin Sodium 50 mls @ 100 mls/hr 09/16/17 10:00 09/23/17 09:09 Ancef 1gm Ivpb (Pre-Docked) IVPB 100 mls/hr Q8H-IV [facility] Administration Pantoprazole Sodium 80 mg/ 100 mls @ 10 mls/hr 09/23/17 14:30 09/23/17 15:00 Sodium Chloride IVPB 10 mls/hr Q10H [facility] Administration 8 MG/HR Dextrose 1,000 mls @ 42 mls/hr 09/23/17 15:45 D5w - IV .[id number] [facility] Metoprolol Tartrate 5 mg 09/20/17 16:31 09/23/17 14:12 Lopressor Injection - IVPUSH 5 mg Q6H-IV [facility] Administration Multivitamins/Minerals 1 each 09/02/17 10:00 09/23/17 09:13 Theragran-M PO Not Given DAILY [facility] Mupirocin 1 applic 09/23/17 10:00 09/23/17 10:10 Bactroban 2% Cream - TP 1 applic BID [facility] Administration Scopolamine HBr 1 patch 09/22/17 08:00 09/22/17 08:28 Transderm-Scop - TD 1 patch Q72H [facility] Administration Sevelamer Carbonate 800 mg 09/12/17 17:30 09/23/17 12:00 Renvela - PO Not Given TIDCM [facility] Thiamine HCl 100 mg 09/02/17 10:00 09/23/17 09:13 Vitamin B1 - PO Not Given DAILY [facility] Impression 1. ALEXANDRA 2. fluid overload 3. hypoalbuminemia 4. respiratory failure requiring intubation 5. anemia 6. etoh abuse 7. fevers 8. hypokalemia 9. pleural effusion 10. hypernatremia 11. GI bleed Plan - pt will get PRBC transfusions - monitor for signs of overload - can change fluids to d5w - GI eval - pt has been NPO, if feeds are not to be started then consider clinimix - discussed with ICU team - monitor renal function - monitor urine output - chest tube care - monitor pulse ox - hold diuretics for now, may need to give a dose between blood transfusions - keep pt in ICU - will follow Dr Peres
[2017-09-23] MEDS ORDERED: DEXTROSE 5%-WATER - 1,000 ML IV SCH (15:45)
[2017-09-23] MEDS ORDERED: FUROSEMIDE 40 MG/4 ML INJECTABLE VIAL IVPUSH ONE (15:52)
[2017-09-23] MEDS ORDERED: FUROSEMIDE 40 MG/4 ML INJECTABLE VIAL ONE (19:14)
[2017-09-23] MEDS ORDERED: DEXAMETHASONE SOD PHOSPHATE 10 MG/1 ML VIAL IVPUSH ONE (19:17)
[2017-09-23] MEDS ORDERED: RACEPINEPHRINE IH SOL 2.25% 11.25 MG/0.5 ML VIAL IH ONE (19:18)
--- NOTE | 2017-09-23 19:25 | PN ---
Progress Note (short form) - Note Progress Note: Pt was receiving IV PRBCs and went into respiratory distress. Went to see pt. RR was in 38s. Chest auscultation revealed decreased air entry bilaterally. Pt was using accessory muscles. Pt was tachycardic at 116. BP 160/100. Nasal suction was performed. Minimal mucus was extracted. Duonebs were ordered. Resp team was called. Pt was started on NIPPV. Lasix was given.
[2017-09-24 01:16] LABS: EOSINOPHIL 2.3 % (0-4.5); MCH 29.2 pg (25.7-33.7); MCHC 33.5 g/dl (32.0-35.9); MEAN CELL VOLUME 87.1 fl (80-96); MEAN PLT VOLUME 6.7 fl (7.5-11.1); NEUTROPHILS 79.7 % (42.8-82.8); PLATELET COUNT 262 K/MM3 (134-434); RDW 16.6 % (11.9-15.9)
[2017-09-24] MEDS: CEFAZOLIN (PRE-DOCKED) 50 ML IVPB SCH ×3 (02:50→18:45)
[2017-09-24] MEDS: PANTOPRAZOLE SODIUM 80 MG in SODIUM CHLORIDE 100 ML IVPB SCH ×2 (03:10→13:08)
[2017-09-24] MEDS: METOPROLOL TARTRATE 5 MG/5 ML VIAL IVPUSH SCH ×4 (04:00→21:36)
[2017-09-24] MEDS ORDERED: HEMOQUE CONTROL SOLUTION ONE (05:17)
--- NOTE | 2017-09-24 07:37 | PN ---
Progress Note (short form) - Note Progress Note: Chief Compliant: Events noted, notes reviewed, remains on BiPAP, lower GI bleed yesterday, Heparin drip D/C, sinus rhythm is maintained History of Present Illness: Seen and examined in the ICU. Events noted, notes reviewed, remains on BiPAP, lower GI bleed yesterday, Heparin drip D/C, sinus rhythm is maintained Echocardiography dated 09/02/2017 revealed probable preserved LV function, but can't R/O regional wall motion abnormality - Current Medication List Current Medications Acetaminophen (Tylenol -) 650 mg NR Q6H PRN PRN Reason: FEVER OR PAIN Last Admin: 09/16/17 18:27 Dose: 650 mg Albuterol/Ipratropium (Duoneb -) 1 amp NEB Q6H PRN PRN Reason: SHORTNESS OF BREATH Last Admin: 09/23/17 19:39 Dose: 1 amp Chlorhexidine Gluconate (Peridex -) 15 ml MM BID [facility] Last Admin: 09/23/17 22:00 Dose: Not Given Ferrous Sulfate (Feosol -) 325 mg PO DAILY [facility] Last Admin: 09/23/17 09:11 Dose: Not Given Folic Acid (Folic Acid -) 1 mg PO DAILY [facility] Last Admin: 09/23/17 09:11 Dose: Not Given Cefazolin Sodium (Ancef 1gm Ivpb (Pre-Docked)) 50 mls @ 100 mls/hr IVPB Q8H-IV [facility] Last Admin: 09/24/17 02:50 Dose: 100 mls/hr Pantoprazole Sodium 80 mg/ (Sodium Chloride) 100 mls @ 10 mls/hr IVPB Q10H [facility] PRN Reason: 8 MG/HR Last Admin: 09/24/17 03:10 Dose: 10 mls/hr Metoprolol Tartrate (Lopressor Injection -) 5 mg IVPUSH Q6H-IV [facility] Last Admin: 09/24/17 04:00 Dose: 5 mg Multivitamins/Minerals (Theragran-M) 1 each PO DAILY [facility] Last Admin: 09/23/17 09:13 Dose: Not Given Mupirocin (Bactroban 2% Cream -) 1 applic TP BID [facility] Last Admin: 09/23/17 21:30 Dose: 1 applic Scopolamine HBr (Transderm-Scop -) 1 patch TD Q72H [facility] Last Admin: 09/22/17 08:28 Dose: 1 patch Sevelamer Carbonate (Renvela -) 800 mg PO TIDCM [facility] Last Admin: 09/23/17 17:23 Dose: Not Given Thiamine HCl (Vitamin B1 -) 100 mg PO DAILY [facility] Last Admin: 09/23/17 09:13 Dose: Not Given Review of systems: Unable to obtain - Objective Vital Signs: Last Vital Signs Temp Pulse Resp BP Pulse Ox 99 F 95 H 26 H 150/91 99 09/24/17 06:00 09/24/17 06:00 09/24/17 06:00 09/24/17 06:00 09/24/17 06:30 Intake & Output 09/22/17 09/22/17 09/23/17 09/24/17 00:59 23:59 23:59 23:59 Intake Total 1091 170 Output Total 2035 5 Balance -944 165 Weight 192 lb 14.472 oz 190 lb 6 oz Neck: Supple Negative JVD Cardiovascular: S1 S2 Irregularly Irregular No Murmurs Respiratory: Bilateral Scattered Rhonchi Gastrointestinal: Soft Benign Normal Bowel Sounds Ext: Edema Labs: CBC, BMP 09/23/17 07:15 CBC and BMP from this AM pending Assessment/Plan ASSESSMENT: 1. Paroxysmal atrial fibrillation [id number] score of 2, currently in sinus rhythm off of Heparin drip 2. Acute hypoxic respiratory failure, on BiPAP, pulmonary infiltrates/pulmonary edema improving 3. Cavitating pneumonia, MSSA bacteremia, post septic shock no evidence of endocarditis by ALISA criteria 4. Diastolic LV dysfunction with class I-II NYHA congestive heart failure, volume overload, resolved 5. Osteomyelitis T9-T10 discitis 6. Loculated effusion post chest tube, tube chest tube obstruction 7. History of alcohol dependence 8. Acute renal insufficiency 9. Hypernatremia 10. Anemia PLAN: 1. As outlined above off of Heparin drip and will defer terminal system operator A/C considering his presentation and co-morbidities 2. IV B-Blockers, till PO intake, hemodynamics permitting 3. Hold diuretics considering the above noted Hypernatremia 4. Antibiotics as per ID service Chang Blackwell M.D.
[2017-09-24 07:44] LABS: MCH 29.4 pg (25.7-33.7); MCHC 33.8 g/dl (32.0-35.9); MEAN CELL VOLUME 86.9 fl (80-96); MEAN PLT VOLUME 6.6 fl (7.5-11.1); PLATELET COUNT 273 K/MM3 (134-434); RDW 16.6 % (11.9-15.9); WHITE BLOOD COUNT 16.1 K/mm3 (4.0-10.0)
--- NOTE | 2017-09-24 07:50 | PN ---
Physical Exam: 24H Events: yesterday - Lower GIB 2/2 rectal tube trauma while on heparin gtt, s/p 2U PRBCs , O/N - volume overload and respiratory distress (tachypneic 30-40's) following transfusion, given lasix 20 ivp and epi inhaler, placed on BiPAP overnight, tachycardiac in NSR (110's) AM - tachypneic in 30's, increased work of breathing with accessory muscle use SUBJECTIVE: Patient seen and examined in ICU. OBJECTIVE: Vital Signs Period Temp Pulse Resp BP Sys/Jeff Pulse Ox Last 24 Hr 98.7 F-100.7 F 95-121 26-28 127-165/80-120 99-100 Intake & Output 09/22/17 09/22/17 09/23/17 09/24/17 00:59 23:59 23:59 23:59 Intake Total 1091 170 Output Total 2035 5 Balance -944 165 Weight 87.5 kg 86.353 kg GENERAL: awake, alert, tachypneic EYES: sclera anicteric, conjunctiva clear ENT: L nasal trumpet, moist mucous membranes LUNGS: anterior congestion, scattered rhonchi, R chest tube with minimal serosanginous drainage HEART: tachycardiac, regular rate, normal S1/S2 ABDOMEN: Soft, non-distended, non-tender, normoactive bowel sounds EXTREMITIES: 2+ UE edema, 1+ LE edema, R anterior norris pustular dermatitis improving Neuro: spontaneous moves all 4 extremities, muscle strength 3/5 in all 4 extremities : donny CBC, BMP 09/24/17 05:28 09/24/17 05:28 Ca - Phos - Mg - Total Bilirubin 0.8 mg/dL (0.2-1.0) 09/24/17 05:28 Direct Bilirubin 1.8 mg/dL (0.0-0.2) H D 09/09/17 05:00 AST 47 U/L (15-37) H 09/24/17 05:28 ALT 6 U/L (12-78) L 09/24/17 05:28 Alkaline Phosphatase 193 U/L (45-117) H 09/24/17 05:28 Albumin 1.8 g/dl (3.4-5.0) L 09/24/17 05:28 Microbiology 09/22/17 13:45 Blood - Peripheral Venous Blood Culture - Preliminary NO GROWTH OBTAINED AFTER 48 HOURS, INCUBATION TO CONTINUE FOR 3 DAYS. 09/22/17 13:45 Blood - Peripheral Venous Blood Culture - Preliminary NO GROWTH OBTAINED AFTER 48 HOURS, INCUBATION TO CONTINUE FOR 3 DAYS. 09/19/17 10:23 Blood - Peripheral Venous Blood Culture - Final NO GROWTH AFTER 5 DAYS INCUBATION 09/19/17 10:23 Blood - Peripheral Venous Blood Culture - Final NO GROWTH AFTER 5 DAYS INCUBATION 09/19/17 10:00 Leg - Right Lower Gram Stain - Final 09/19/17 10:00 Leg - Right Lower Wound Culture - Final Diphtheroid/Corynebacterium Staphylococcus Coagulase Neg Active Medications Acetaminophen (Tylenol -) 650 mg NR Q6H PRN PRN Reason: FEVER OR PAIN Last Admin: 09/16/17 18:27 Dose: 650 mg Albuterol/Ipratropium (Duoneb -) 1 amp NEB Q6H PRN PRN Reason: SHORTNESS OF BREATH Last Admin: 09/23/17 19:39 Dose: 1 amp Chlorhexidine Gluconate (Peridex -) 15 ml MM BID [facility] Last Admin: 09/24/17 11:42 Dose: Not Given Ferrous Sulfate (Feosol -) 325 mg PO DAILY [facility] Last Admin: 09/24/17 11:42 Dose: Not Given Folic Acid (Folic Acid -) 1 mg PO DAILY [facility] Last Admin: 09/24/17 11:42 Dose: Not Given Heparin Sodium (Porcine) (Heparin -) 5,000 unit SQ TID [facility] Cefazolin Sodium (Ancef 1gm Ivpb (Pre-Docked)) 50 mls @ 100 mls/hr IVPB Q8H-IV [facility] Last Admin: 09/24/17 11:41 Dose: 100 mls/hr Propofol (Diprivan -) 100 mls @ 5.181 mls/hr IVPB TITR [facility]; 10 MCG/KG/MIN PRN Reason: Protocol Metoprolol Tartrate (Lopressor Injection -) 5 mg IVPUSH Q6H-IV [facility] Last Admin: 09/24/17 11:41 Dose: 5 mg Multivitamins/Minerals (Theragran-M) 1 each PO DAILY [facility] Last Admin: 09/24/17 11:32 Dose: Not Given Mupirocin (Bactroban 2% Cream -) 1 applic TP BID [facility] Last Admin: 09/24/17 11:00 Dose: 1 applic Pantoprazole Sodium (Protonix -) 40 mg PO BID [facility] Scopolamine HBr (Transderm-Scop -) 1 patch TD Q72H [facility] Last Admin: 09/22/17 08:28 Dose: 1 patch Sevelamer Carbonate (Renvela -) 800 mg PO TIDCM [facility] Last Admin: 09/24/17 13:09 Dose: Not Given Thiamine HCl (Vitamin B1 -) 100 mg PO DAILY [facility] Last Admin: 09/24/17 11:32 Dose: Not Given ASSESSMENT/PLAN: 66yo man with PMH of EtOH abuse and HTN who is admitted (08/31) for acute hypoxic respiratory failure requiring mechanical ventilation (09/02 - 09/19) and sepsis, now resolving and off pressors. Persistent pulmonary infectious source of bilateral loculated PNA, and now with acute thoracic osteomyletitis (T9-T10) . Patient continues to have low grade fevers. Currently being treated with Cefazolin (started 09/16). MSSA bacteremia, now resolved cleared; ALISA (09/13) r/ o endocarditis. Serial blood cultures collected 09/08, 09/10, 09/12, 09/19, 09/22 NGTD. Sputum cultures grew yeast-like organism and patient treated with Diflucan. RLE pustules noted on anterior norris, now resolving, wound cultures normal skin north/no PMNs and s/p 3days acylovir for possible zoster (09/19-). #acute hypoxic respiratory failure -O2 as needed to maintain SpaO2>90% -suctioning via nasal trumpet prn -duo nebs q6h PRN, scopolamine patch for secretions, chest physiotherapy -considering TPA through CT to improve drainage; CT surgery following #GI bleed, likely 2/2 trauma from rectal tube, s/p 2Ux PRBCs, Hgb stable, no further bleeds -hold AC, avoid rectal tube -d/c protonix gtt --> PO daily -Trend H&H, transfuse Hgb<7 #sepsis 2/2 cavitary PNA, acute osteomylitis -R chest tube draining to water seal -Continue Cefazolin 1gm Q8H (started 09/16), will need prolonged course due to acute osteomyelitis (6 wks) #Afib - CHADVASC score of 2 indicating AC -Cardiology following -consider PO amio for rate control (currently in NSR) -hold AC for now given acute GI bleed, long-term goal to convert to NOAC vs coumadin once medically stable #suspected chronic diastolic heart failure - ECHO 09/02/2017 rprobable preserved LV function, but can't R/O regional wall motion abnormality -Increase opressor 5mg IV Q6H to Q4H #ALEXANDRA -Nephrology consulted -c3/c4 complement level wnl; PROSPER positive -Strict I&Os, hines -Renal dose for meds -Cont Ferrous Sulfate 325 mg PO DAILY [facility] -Cont Sevelamer Carbonate (Renvela) 800 mg PO TID #EtOH abuse -Monitor for signs of EtOH withdrawal -MVI, thiamine 100mg PO qd, folic acid 1mg PO daily #FEN -IVF held -monitor lytes -NPO #PPX -DVT - scd's -GI - Pantoprazole 40mg IV daily #Dispo: continue ICU monitoring FULL code d/w Dr. Akbar Salter MD PGY-1 Visit type - Emergency Visit Emergency Visit: No - New Patient This patient is new to me today: No - Critical Care Critical Care patient: Yes Total Critical Care Time (in minutes): 45 Critical Care Statement: The care of this patient involved high complexity decision making to prevent further life threatening deterioration of the patient 's condition and/or to evaluate & treat vital organ system(s) failure or risk of failure.
[2017-09-24 08:12] LABS: ALBUMIN 1.8 g/dl (3.4-5.0); ALK PHOS 193 U/L (45-117); ANION GAP 16 (8-16); BILIRUBIN,TOTAL 0.8 mg/dL (0.2-1.0); CALCIUM 8.3 mg/dL (8.5-10.1); CO2 19 mmol/L (21-32); GLUCOSE,RANDOM 99 mg/dL (74-106); MAGNESIUM 2.1 mg/dL (1.8-2.4); PHOSPHOROUS 6.1 mg/dL (2.5-4.9); SGOT/AST 47 U/L (15-37); SGPT/ALT 6 U/L (12-78); TOT PROT 7.4 g/dl (6.4-8.2)
[2017-09-24] MEDS: MUPIROCIN CA 2% TOPICAL CREAM 15 GM TUBE TP SCH ×2 (11:00→21:48)
--- NOTE | 2017-09-24 11:17 | PN ---
Progress Note (short form) - Note Progress Note: heparin off no further gi bleed s/p 2 units prbc yesterday awake on bipap Vital Signs Period Temp Pulse Resp BP Sys/Jeff Pulse Ox Last 24 Hr 99 F-99.7 F 95-115 26-28 127-165/80-110 99-100 cor-rrr lungs decreased bs at bases right chest tube abd firm, nt ext no edema CBC, BMP 09/24/17 05:28 09/24/17 05:28 Microbiology 09/19/17 10:23 Blood Culture - Final Blood - Peripheral Venous NO GROWTH AFTER 5 DAYS INCUBATION 09/19/17 10:23 Blood Culture - Final Blood - Peripheral Venous NO GROWTH AFTER 5 DAYS INCUBATION 09/22/17 13:45 Blood Culture - Preliminary Blood - Peripheral Venous NO GROWTH OBTAINED AFTER 24 HOURS, INCUBATION TO CONTINUE FOR 4 DAYS. 09/22/17 13:45 Blood Culture - Preliminary Blood - Peripheral Venous NO GROWTH OBTAINED AFTER 24 HOURS, INCUBATION TO CONTINUE FOR [address]- effusions, t9/10 discitis a/p MSSA sepsis T9/10 discitis ARF anemia- gi bleed ALISA negative continue cefazolin as ordered will require fdc treatment
[2017-09-24] MEDS: MULTIVITAMINS THER W-MINERALS COMBO TABLET (FP) PO SCH (11:32)
[2017-09-24] MEDS: SEVELAMER CARBONATE 800 MG TAB (FP) PO SCH ×3 (11:32→18:29)
[2017-09-24] MEDS: THIAMINE HCL 100 MG TABLET (FP) PO SCH (11:32)
[2017-09-24] MEDS: FERROUS SO4 325 MG TABLET (FP) PO SCH (11:42)
[2017-09-24] MEDS: CHLORHEXIDINE GLUCONATE 0.12% 15ML CUP MM SCH ×2 (11:42→21:48)
[2017-09-24] MEDS: FOLIC ACID 1 MG TABLET (FP) PO SCH (11:42)
[2017-09-24] MEDS: BACITRACIN 15 GM TUBE TOPICAL OINTMENT TP SCH (11:47)
[2017-09-24 11:51] LABS: ARTERIAL BLOOD GAS BASE EXCESS -5.6 meq/l (-2-2); ARTERIAL BLOOD GAS HCO3 19.2 meq/L (22-26); ARTERIAL BLOOD GAS pH 7.33 (7.35-7.45)
[2017-09-24 11:52] LABS: ALLENS TEST POSITIVE; ART PUNCT SITE RIGHT RADIAL
[2017-09-24 11:53] LABS: LPM/O2% 40%; PT. ON O2? YES
--- NOTE | 2017-09-24 12:17 | PN ---
Teaching Attending Note Name of Resident: Lydia Salter ATTENDING PHYSICIAN STATEMENT Time of evaluation: 9:02 AM I saw and evaluated the patient. I reviewed the resident's note and discussed the case with the resident. I agree with the resident's findings and plan as documented. SUBJECTIVE: Patient seen and examined, currently on Bipap, occsionally nods and responds. Limited ROS. OBJECTIVE: Vital Signs Period Temp Pulse Resp BP Sys/Jeff Pulse Ox Last 24 Hr 99 F-99.7 F 92-117 26-28 127-165/80-110 99-100 Intake & Output 09/22/17 09/22/17 09/23/17 09/24/17 00:59 23:59 23:59 23:59 Intake Total 1091 170 Output Total 2035 5 Balance -944 165 Weight 192 lb 14.472 oz 190 lb 6 oz General: on bipap in bed, tachypneic CVS S1S2 regular, rapid\ Chest occasional bilateral scattered rales, positive air entry Abdomen soft, obese, NT, positive bowel sounds Extremties RLE - 2 3-4 cm oval areas with induration/warmth/erythema with minimal dried pustular discharge on Right norris, positive pulses bilaterally Neuro Awake, occasionally responds to nodding, unable to speak given bipap, able to squeeze with fingers and wiggle toes, further exam limited Home Medication List Medication Instructions Recorded Confirmed Type Unobtainable [Unobtainable] 08/31/17 08/31/17 History Active Medications Generic Name Dose Route Start Last Admin Trade Name Freq PRN Reason Stop Dose Admin Acetaminophen 650 mg 09/07/17 05:53 09/16/17 18:27 Tylenol - NR 650 mg Q6H PRN Administration FEVER OR PAIN Albuterol/Ipratropium 1 amp 09/19/17 14:55 09/23/17 19:39 Duoneb - NEB 1 amp Q6H PRN Administration SHORTNESS OF BREATH Chlorhexidine Gluconate 15 ml 09/08/17 12:30 09/24/17 11:42 Peridex - MM Not Given BID [facility] Ferrous Sulfate 325 mg 09/05/17 12:00 09/24/17 11:42 Feosol - PO Not Given DAILY [facility] Folic Acid 1 mg 09/02/17 10:00 09/24/17 11:42 Folic Acid - PO Not Given DAILY [facility] Cefazolin Sodium 50 mls @ 100 mls/hr 09/16/17 10:00 09/24/17 11:41 Ancef 1gm Ivpb (Pre-Docked) IVPB 100 mls/hr Q8H-IV [facility] Administration Pantoprazole Sodium 80 mg/ 100 mls @ 10 mls/hr 09/23/17 14:30 09/24/17 03:10 Sodium Chloride IVPB 10 mls/hr Q10H [facility] Administration 8 MG/HR Metoprolol Tartrate 5 mg 09/20/17 16:31 09/24/17 11:41 Lopressor Injection - IVPUSH 5 mg Q6H-IV [facility] Administration Multivitamins/Minerals 1 each 09/02/17 10:00 09/24/17 11:32 Theragran-M PO Not Given DAILY [facility] Mupirocin 1 applic 09/23/17 10:00 09/23/17 21:30 Bactroban 2% Cream - TP 1 applic BID [facility] Administration Scopolamine HBr 1 patch 09/22/17 08:00 09/22/17 08:28 Transderm-Scop - TD 1 patch Q72H [facility] Administration Sevelamer Carbonate 800 mg 09/12/17 17:30 09/24/17 11:32 Renvela - PO Not Given TIDCM [facility] Thiamine HCl 100 mg 09/02/17 10:00 09/24/17 11:32 Vitamin B1 - PO Not Given DAILY [facility] Laboratory Results - last 24 hr 09/23/17 09/23/17 09/24/17 13:45 15:00 01:00 WBC 15.0 H 17.0 H RBC 2.41 L 2.90 L D Hgb 6.8 L* 8.5 L D Hct 21.5 L 25.3 L D MCV 89.0 87.1 MCH 28.1 29.2 MCHC 31.5 L 33.5 RDW 16.8 H 16.6 H Plt Count 191 262 D MPV 6.4 L 6.7 L Neutrophils % 79.7 Lymphocytes % 7.2 L Monocytes % 9.8 Eosinophils % 2.3 Basophils % 1.0 PTT (Actin FS) Puncture Site ABG pH ABG pCO2 at Pt Temp ABG pO2 at Pt Temp ABG HCO3 ABG O2 Sat (Measured) ABG O2 Content ABG Base Excess Anoop Test O2 Delivery Device Oxygen Flow Rate Sodium Potassium Chloride Carbon Dioxide Anion Gap BUN Creatinine Creat Clearance w eGFR Random Glucose Calcium Phosphorus Magnesium Total Bilirubin AST ALT Alkaline Phosphatase Total Protein Albumin Blood Type O NEGATIVE Antibody Screen Negative Crossmatch See Detail 09/24/17 09/24/17 09/24/17 05:28 05:28 05:28 WBC 16.1 H RBC 2.88 L Hgb 8.5 L Hct 25.0 L MCV 86.9 MCH 29.4 MCHC 33.8 RDW 16.6 H Plt Count 273 MPV 6.6 L Neutrophils % Lymphocytes % Monocytes % Eosinophils % Basophils % PTT (Actin FS) 31.6 D Puncture Site ABG pH ABG pCO2 at Pt Temp ABG pO2 at Pt Temp ABG HCO3 ABG O2 Sat (Measured) ABG O2 Content ABG Base Excess Anoop Test O2 Delivery Device Oxygen Flow Rate Sodium 151 H Potassium 4.0 Chloride 116 H Carbon Dioxide 19 L Anion Gap 16 BUN 89 H Creatinine 4.0 H Creat Clearance w eGFR 15.05 Random Glucose 99 Calcium 8.3 L Phosphorus 6.1 H Magnesium 2.1 Total Bilirubin 0.8 AST 47 H ALT 6 L Alkaline Phosphatase 193 H Total Protein 7.4 Albumin 1.8 L Blood Type Antibody Screen Crossmatch 09/24/17 11:37 WBC RBC Hgb Hct MCV MCH MCHC RDW Plt Count MPV Neutrophils % Lymphocytes % Monocytes % Eosinophils % Basophils % PTT (Actin FS) Puncture Site Right radial ABG pH 7.33 L D ABG pCO2 at Pt Temp 37.2 ABG pO2 at Pt Temp 131.0 H D ABG HCO3 19.2 L ABG O2 Sat (Measured) 99.0 H ABG O2 Content 11.4 L ABG Base Excess -5.6 L Anoop Test Positive O2 Delivery Device Bipap 12/(12) Oxygen Flow Rate 40% Sodium Potassium Chloride Carbon Dioxide Anion Gap BUN Creatinine Creat Clearance w eGFR Random Glucose Calcium Phosphorus Magnesium Total Bilirubin AST ALT Alkaline Phosphatase Total Protein Albumin Blood Type Antibody Screen Crossmatch ASSESSMENT AND PLAN: -Acute hypoxic respiratory failure -Severe sepsis due to cavitary PNA, MSSA bacteremia, ALISA neg for vegetation -large right loculoated pleural effusion, s/p chest tube (needs tpa but on hold given recent hematochezia) -Acute T9-T10 discitis/osteomyelitis -Hematochezia -ARF, from sepsis vs medication related -Acute on chronic anemia, suspect from renal dysfunction, episode of hematochezia suspected from rectal tube/heparin, resolved for now -AFib with RVR recurrent -Hypokalemia/hypomagnesemia -Hyperphosphatemia -Hypovolumic hypernatremia -Alcohol abuse -Normocytic anemia -Acute transaminitis -Chronic right subdural hematoma PLan: On bipap, suspect ongoing pulmonary process and volume overload from PRBC contributory. Lasix prn. Cefazolin, ID input appreciated, atleast 6 weeks antibiotics with likely repeat imaging then, repeat blood cultures sent 09/22, follow up. No further hematochezia, off heparin drip, discuss with GI/ICU for possible TPA in chest tube today as off heparin and no further bleed events noted with stable h/h post transfusion. Renal function gradually worsening, but no oliguric, renal input appreciated. Discuss with ICU as needs repeat NG tube with feeds and free water flushes given hypernatremia. Off heparin drip, increase metoprolol to 5mg IV q4h prn. Will need to revisit anti-coagulation once active concerns have improved. Risks of anticoagulation high currently given above, monitor neurological status. Replete lytes as needed. Trend LFTs Patient critical with ongoing multiorgan dsyfunction. total critical care time spent 40 min.
--- NOTE | 2017-09-24 12:24 | PN ---
Progress Note, Physician History of Present Illness: No bleeding, per nurse. No events. - Current Medication List Current Medications: Active Medications Acetaminophen (Tylenol -) 650 mg NR Q6H PRN PRN Reason: FEVER OR PAIN Last Admin: 09/16/17 18:27 Dose: 650 mg Albuterol/Ipratropium (Duoneb -) 1 amp NEB Q6H PRN PRN Reason: SHORTNESS OF BREATH Last Admin: 09/23/17 19:39 Dose: 1 amp Chlorhexidine Gluconate (Peridex -) 15 ml MM BID [facility] Last Admin: 09/24/17 11:42 Dose: Not Given Ferrous Sulfate (Feosol -) 325 mg PO DAILY [facility] Last Admin: 09/24/17 11:42 Dose: Not Given Folic Acid (Folic Acid -) 1 mg PO DAILY [facility] Last Admin: 09/24/17 11:42 Dose: Not Given Cefazolin Sodium (Ancef 1gm Ivpb (Pre-Docked)) 50 mls @ 100 mls/hr IVPB Q8H-IV [facility] Last Admin: 09/24/17 11:41 Dose: 100 mls/hr Pantoprazole Sodium 80 mg/ (Sodium Chloride) 100 mls @ 10 mls/hr IVPB Q10H [facility] PRN Reason: 8 MG/HR Last Admin: 09/24/17 03:10 Dose: 10 mls/hr Metoprolol Tartrate (Lopressor Injection -) 5 mg IVPUSH Q6H-IV [facility] Last Admin: 09/24/17 11:41 Dose: 5 mg Multivitamins/Minerals (Theragran-M) 1 each PO DAILY [facility] Last Admin: 09/24/17 11:32 Dose: Not Given Mupirocin (Bactroban 2% Cream -) 1 applic TP BID [facility] Last Admin: 09/23/17 21:30 Dose: 1 applic Scopolamine HBr (Transderm-Scop -) 1 patch TD Q72H [facility] Last Admin: 09/22/17 08:28 Dose: 1 patch Sevelamer Carbonate (Renvela -) 800 mg PO TIDCM [facility] Last Admin: 09/24/17 11:32 Dose: Not Given Thiamine HCl (Vitamin B1 -) 100 mg PO DAILY [facility] Last Admin: 09/24/17 11:32 Dose: Not Given - Objective Vital Signs: Vital Signs Temperature 99 F 09/24/17 06:00 Pulse Rate 92 H 09/24/17 12:04 Respiratory Rate 26 H 09/24/17 12:04 Blood Pressure 151/99 09/24/17 12:04 O2 Sat by Pulse Oximetry (%) 100 09/24/17 09:52 Labs: CBC, BMP 09/24/17 05:28 09/24/17 05:28 INR, PTT INR 1.14 (0.82-1.09) 09/21/17 06:10 CBCD WBC 16.1 K/mm3 (4.0-10.0) H 09/24/17 05:28 RBC 2.88 M/mm3 (4.00-5.60) L 09/24/17 05:28 Hgb 8.5 GM/dL (11.7-16.9) L 09/24/17 05:28 Hct 25.0 % (35.4-49) L 09/24/17 05:28 MCV 86.9 fl (80-96) 09/24/17 05:28 MCHC 33.8 g/dl (32.0-35.9) 09/24/17 05:28 RDW 16.6 % (11.9-15.9) H 09/24/17 05:28 Plt Count 273 K/MM3 (134-434) 09/24/17 05:28 MPV 6.6 fl (7.5-11.1) L 09/24/17 05:28 CMP Sodium 151 mmol/L (136-145) H 09/24/17 05:28 Potassium 4.0 mmol/L (3.5-5.1) 09/24/17 05:28 Chloride 116 mmol/L (98-107) H 09/24/17 05:28 Carbon Dioxide 19 mmol/L (21-32) L 09/24/17 05:28 Anion Gap 16 (8-16) 09/24/17 05:28 BUN 89 mg/dL (7-18) H 09/24/17 05:28 Creatinine 4.0 mg/dL (0.7-1.3) H 09/24/17 05:28 Creat Clearance w eGFR 15.05 (>60) 09/24/17 05:28 Calcium 8.3 mg/dL (8.5-10.1) L 09/24/17 05:28 Total Bilirubin 0.8 mg/dL (0.2-1.0) 09/24/17 05:28 AST 47 U/L (15-37) H 09/24/17 05:28 ALT 6 U/L (12-78) L 09/24/17 05:28 Alkaline Phosphatase 193 U/L (45-117) H 09/24/17 05:28 Total Protein 7.4 g/dl (6.4-8.2) 09/24/17 05:28 Albumin 1.8 g/dl (3.4-5.0) L 09/24/17 05:28 Problem List - Problems (1) Rectal bleeding Code(s): K62.5 - HEMORRHAGE OF ANUS AND RECTUM (2) Gastric ulcer Code(s): K25.9 - GASTRIC ULCER, UNSP ACUTE OR CHRONIC, W/O HEMOR OR PERF (3) History of alcohol abuse Code(s): Z87.898 - PERSONAL HISTORY OF OTHER SPECIFIED CONDITIONS (4) Respiratory failure with hypoxia Code(s): J96.91 - RESPIRATORY FAILURE, UNSPECIFIED WITH HYPOXIA Qualifiers: Qualified Code(s): J96.01 - Acute respiratory failure with hypoxia; J96.01 - Acute respiratory failure with hypoxia; J96.01 - Acute respiratory failure with hypoxia (5) Staphylococcus aureus bacteremia Code(s): R78.81 - BACTEREMIA Assessment/Plan likely rectal tube-related ulcer bleeding in anticoagulated patinet. Appears to resolve after rectal tube was removed. Close monitoring as per ICU protocols. Urgent flex-sig, or colonoscopy if continues to bleed. Otherwise would avoid procedures requiring sedation until pulmonary status improves. Discussed with covering nurse
--- NOTE | 2017-09-24 13:14 | PN ---
Teaching Attending Note Name of Resident: Tejal Ortiz ATTENDING PHYSICIAN STATEMENT I saw and evaluated the patient. I reviewed the resident's note and discussed the case with the resident. I agree with the resident's findings and plan as documented. SUBJECTIVE: Pt seen and examined in the ICU. Placed on BiPAP overnight for respiratory distress. Remains tachypneic on BiPAP. OBJECTIVE: Last Vital Signs Temp Pulse Resp BP Pulse Ox 99 F 92 H 26 H 151/99 100 09/24/17 06:00 09/24/17 12:04 09/24/17 12:04 09/24/17 12:04 09/24/17 12:30 Intake & Output 09/22/17 09/22/17 09/23/17 09/24/17 00:59 23:59 23:59 23:59 Intake Total 1091 170 Output Total 2035 5 Balance -944 165 Weight 192 lb 14.472 oz 190 lb 6 oz Gen: tachypneic on BiPAP Heart: RRR Lung: bilateral rhonchi Abd: soft, nontender Ext: + edema CBC, BMP 09/24/17 05:28 09/24/17 05:28 Active Medications Acetaminophen (Tylenol -) 650 mg NR Q6H PRN PRN Reason: FEVER OR PAIN Last Admin: 09/16/17 18:27 Dose: 650 mg Albuterol/Ipratropium (Duoneb -) 1 amp NEB Q6H PRN PRN Reason: SHORTNESS OF BREATH Last Admin: 09/23/17 19:39 Dose: 1 amp Chlorhexidine Gluconate (Peridex -) 15 ml MM BID [facility] Last Admin: 09/24/17 11:42 Dose: Not Given Ferrous Sulfate (Feosol -) 325 mg PO DAILY [facility] Last Admin: 09/24/17 11:42 Dose: Not Given Folic Acid (Folic Acid -) 1 mg PO DAILY [facility] Last Admin: 09/24/17 11:42 Dose: Not Given Cefazolin Sodium (Ancef 1gm Ivpb (Pre-Docked)) 50 mls @ 100 mls/hr IVPB Q8H-IV [facility] Last Admin: 09/24/17 11:41 Dose: 100 mls/hr Pantoprazole Sodium 80 mg/ (Sodium Chloride) 100 mls @ 10 mls/hr IVPB Q10H [facility] PRN Reason: 8 MG/HR Last Admin: 09/24/17 13:08 Dose: 10 mls/hr Metoprolol Tartrate (Lopressor Injection -) 5 mg IVPUSH Q6H-IV [facility] Last Admin: 09/24/17 11:41 Dose: 5 mg Multivitamins/Minerals (Theragran-M) 1 each PO DAILY [facility] Last Admin: 09/24/17 11:32 Dose: Not Given Mupirocin (Bactroban 2% Cream -) 1 applic TP BID [facility] Last Admin: 09/24/17 11:00 Dose: 1 applic Scopolamine HBr (Transderm-Scop -) 1 patch TD Q72H [facility] Last Admin: 09/22/17 08:28 Dose: 1 patch Sevelamer Carbonate (Renvela -) 800 mg PO TIDCM [facility] Last Admin: 09/24/17 13:09 Dose: Not Given Thiamine HCl (Vitamin B1 -) 100 mg PO DAILY [facility] Last Admin: 09/24/17 11:32 Dose: Not Given ASSESSMENT AND PLAN: Acute Hypoxic Respiratory Failure Pneumonia MSSA Bacteremia Loculated Pleural Effusions LV Diastolic Dysfunction Paroxysmal Atrial Fibrillation Acute Kidney Injury GI Bleed Acute Blood Loss Anemia - may need to be reintubated - continue antibiotics - hold heparin gtt - can change protonix to BID - monitor H/H, coags - was planning on intra-pleural tPA but will hold off until stabilized - O2 to keep SpO2 >90% - aspiration precautions - free water replacement - DVT prophylaxis - continue ICU monitoring critical care time spent in reviewing chart, evaluating patient and formulating plan 40 min
[2017-09-24] MEDS ORDERED: PROPOFOL 100 ML ONE (13:20)
--- NOTE | 2017-09-24 13:24 | PN ---
Physical Exam: SUBJECTIVE: Patient seen and examined, on BiPAP, still with labored breathing and accessory muscle use. Put on bipap last night became became sob while getting blood transfusion. OBJECTIVE: Vital Signs Period Temp Pulse Resp BP Sys/Jeff Pulse Ox Last 24 Hr 99 F-99.7 F 92-117 26-28 127-165/80-110 99-100 GENERAL: The patient is awake, alert, on bipap. LUNGS: very coarse breath sounds HEART: Regular rate and rhythm, S1, S2 without murmur, rub or gallop. ABDOMEN:obese, Soft, nontender, nondistended, normoactive bowel sounds, no guarding, no rebound, no hepatosplenomegaly, no masses. EXTREMITIES: 2+ pulses, warm, well-perfused, no edema. 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; 2/5 b/l SKIN: RLE pustules CBC, BMP 09/24/17 05:28 09/24/17 05:28 Active Medications Generic Name Dose Route Start Last Admin Trade Name Freq PRN Reason Stop Dose Admin Acetaminophen 650 mg 09/07/17 05:53 09/16/17 18:27 Tylenol - NR 650 mg Q6H PRN Administration FEVER OR PAIN Albuterol/Ipratropium 1 amp 09/19/17 14:55 09/23/17 19:39 Duoneb - NEB 1 amp Q6H PRN Administration SHORTNESS OF BREATH Chlorhexidine Gluconate 15 ml 09/08/17 12:30 09/24/17 11:42 Peridex - MM Not Given BID [facility] Ferrous Sulfate 325 mg 09/05/17 12:00 09/24/17 11:42 Feosol - PO Not Given DAILY [facility] Folic Acid 1 mg 09/02/17 10:00 09/24/17 11:42 Folic Acid - PO Not Given DAILY [facility] Cefazolin Sodium 50 mls @ 100 mls/hr 09/16/17 10:00 09/24/17 11:41 Ancef 1gm Ivpb (Pre-Docked) IVPB 100 mls/hr Q8H-IV [facility] Administration Pantoprazole Sodium 80 mg/ 100 mls @ 10 mls/hr 09/23/17 14:30 09/24/17 13:08 Sodium Chloride IVPB 10 mls/hr Q10H [facility] Administration 8 MG/HR Metoprolol Tartrate 5 mg 09/20/17 16:31 09/24/17 11:41 Lopressor Injection - IVPUSH 5 mg Q6H-IV [facility] Administration Multivitamins/Minerals 1 each 09/02/17 10:00 09/24/17 11:32 Theragran-M PO Not Given DAILY [facility] Mupirocin 1 applic 09/23/17 10:00 09/24/17 11:00 Bactroban 2% Cream - TP 1 applic BID [facility] Administration Scopolamine HBr 1 patch 09/22/17 08:00 09/22/17 08:28 Transderm-Scop - TD 1 patch Q72H [facility] Administration Sevelamer Carbonate 800 mg 09/12/17 17:30 09/24/17 13:09 Renvela - PO Not Given TIDCM [facility] Thiamine HCl 100 mg 09/02/17 10:00 09/24/17 11:32 Vitamin B1 - PO Not Given DAILY [facility] ASSESSMENT/PLAN: 66 year old male with a past medical history of alcohol dependance found unresponsive on the floor; s/p acute hypoxic respiratory failure complicated by MSSA bacteremia with loculated pleural effusions. #neuro -awake; alert; able to follow minor commands #respiratory: labored breathing on BiPAP -acute hypoxic respiratory failure: s/p extubation; on NC sating .90% o2 -HOB elevated -aspiration precautions -low threshold to reintubate -loculated pleural effusions; with chest tube; currently not draining ; question was to use tpa to dissolve possible clot; although had rectal bleeding today; therefore will not give tpa at this time -cont IV antibiotics; as per ID for PNA/mssa bactermia #cardiovascular: -LV diastolic failure; hold Lasix for now due to samra -paroxysmal atrial fibrillation; hold heparin for now due to rectal bleed -cont lopressor sched #renal -full renal workup -likely related to sepsis -trend Cr. -renal on board #GI -acute GI bleed most likely related to ulcer created by rectal tube -transfused 2 U PRBD; with adequate response -cont protonix 40mg bid #ID -PNA: cont IV antibiotics -cont trumpet suctioning -id appreciated #hypernatremia: -replace free water deficit; -start feeds for more absorption FEN fluids electrolytes; wnl diet: discuss with GI feeds VTE; restart heparin sq GI on protonix bid Disposition: ICU monitoring ; Problem List - Problems (1) Endocarditis due to Staphylococcus Code(s): I33.0 - ACUTE AND SUBACUTE INFECTIVE ENDOCARDITIS B95.8 - UNSP STAPHYLOCOCCUS THE CAUSE OF DISEASES CLASSD ELSWHR (2) History of alcohol abuse Code(s): Z87.898 - PERSONAL HISTORY OF OTHER SPECIFIED CONDITIONS (3) Hypokalemia Code(s): E87.6 - HYPOKALEMIA (4) Hyponatremia Code(s): E87.1 - HYPO-OSMOLALITY AND HYPONATREMIA (5) Pneumonia Code(s): J18.9 - PNEUMONIA, UNSPECIFIED ORGANISM Qualifiers: Pneumonia type: aspiration pneumonia (6) Respiratory failure with hypoxia Code(s): J96.91 - RESPIRATORY FAILURE, UNSPECIFIED WITH HYPOXIA Qualifiers: Chronicity: acute Qualified Code(s): J96.01 - Acute respiratory failure with hypoxia; J96.01 - Acute respiratory failure with hypoxia; J96.01 - Acute respiratory failure with hypoxia (8) Staphylococcus aureus bacteremia Code(s): R78.81 - BACTEREMIA Visit type - Emergency Visit Emergency Visit: Yes ED Registration Date: 08/31/17 Care time: The patient presented to the Emergency Department on the above date and was hospitalized for further evaluation of their emergent condition. - New Patient This patient is new to me today: No - Critical Care Critical Care patient: Yes Total Critical Care Time (in minutes): 35 Critical Care Statement: The care of this patient involved high complexity decision making to prevent further life threatening deterioration of the patient 's condition and/or to evaluate & treat vital organ system(s) failure or risk of failure.
[2017-09-24] MEDS ORDERED: BENZOIN/ALOE VERA/STORAX/TOLU 58 ML BOTTLE ONE (13:48)
--- NOTE | 2017-09-24 14:17 | PROC ---
<Tejal Ortiz - Last Filed: 09/24/17 14:16> Intubation - Intubation Reason for Intubation: Respiratory Insufficiency Intubation Method: orotracheal Blade used: Mac Tube Size (cm): 8.0 Tube position @ lip (cm): 23 Tube position confirmed by: Direct visualization, CO2 detector, Chest x-ray, Breath sounds Breath Sounds after Intubation: equal Post Intubation Xray: Yes <Mariano Mims MD - Last Filed: 09/24/17 14:30> Procedure Note Procedure: I supervised and was present during the entire procedure. Mariano Mims MD
[2017-09-24] MEDS: PROPOFOL 100 ML IVPB SCH ×2 (14:55→20:00)
--- NOTE | 2017-09-24 15:44 | PN ---
Progress Note, Physician History of Present Illness: Pt seen and examined at bedside. He appears to be having difficulty breathing and will likely get intubated. - Current Medication List Current Medications: Active Medications Acetaminophen (Tylenol -) 650 mg NR Q6H PRN PRN Reason: FEVER OR PAIN Last Admin: 09/16/17 18:27 Dose: 650 mg Albuterol/Ipratropium (Duoneb -) 1 amp NEB Q6H PRN PRN Reason: SHORTNESS OF BREATH Last Admin: 09/23/17 19:39 Dose: 1 amp Chlorhexidine Gluconate (Peridex -) 15 ml MM BID [facility] Last Admin: 09/24/17 11:42 Dose: Not Given Ferrous Sulfate (Feosol -) 325 mg PO DAILY [facility] Last Admin: 09/24/17 11:42 Dose: Not Given Folic Acid (Folic Acid -) 1 mg PO DAILY [facility] Last Admin: 09/24/17 11:42 Dose: Not Given Heparin Sodium (Porcine) (Heparin -) 5,000 unit SQ TID [facility] Cefazolin Sodium (Ancef 1gm Ivpb (Pre-Docked)) 50 mls @ 100 mls/hr IVPB Q8H-IV [facility] Last Admin: 09/24/17 11:41 Dose: 100 mls/hr Propofol (Diprivan -) 100 mls @ 5.181 mls/hr IVPB TITR [facility]; 10 MCG/KG/MIN PRN Reason: Protocol Last Admin: 09/24/17 14:55 Dose: 5.181 mls/hr Metoprolol Tartrate (Lopressor Injection -) 5 mg IVPUSH Q4H-IV [facility] Multivitamins/Minerals (Theragran-M) 1 each PO DAILY [facility] Last Admin: 09/24/17 11:32 Dose: Not Given Mupirocin (Bactroban 2% Cream -) 1 applic TP BID [facility] Last Admin: 09/24/17 11:00 Dose: 1 applic Pantoprazole Sodium (Protonix -) 40 mg PO BID [facility] Scopolamine HBr (Transderm-Scop -) 1 patch TD Q72H [facility] Last Admin: 09/22/17 08:28 Dose: 1 patch Sevelamer Carbonate (Renvela -) 800 mg PO TIDCM [facility] Last Admin: 09/24/17 13:09 Dose: Not Given Thiamine HCl (Vitamin B1 -) 100 mg PO DAILY [facility] Last Admin: 09/24/17 11:32 Dose: Not Given - Objective Vital Signs: Vital Signs Temperature 98.6 F 09/24/17 14:35 Pulse Rate 103 H 09/24/17 14:56 Respiratory Rate 22 09/24/17 14:56 Blood Pressure 98/75 09/24/17 14:56 O2 Sat by Pulse Oximetry (%) 100 09/24/17 12:30 Constitutional: Yes: Moderate Distress Eyes: Yes: Conjunctiva Clear Cardiovascular: Yes: S1, S2 Respiratory: Yes: On Venti-Mask, Rhonchi Gastrointestinal: Yes: Soft Genitourinary: Yes: Freeman Present Musculoskeletal: Yes: Muscle Weakness Edema: Yes Edema: LLE: 1+, RLE: 1+ Neurological: Yes: Confusion Labs: CBC, BMP 09/24/17 05:28 09/24/17 05:28 INR, PTT INR 1.14 (0.82-1.09) 09/21/17 06:10 - ....Imaging Chest X-ray: Report Reviewed Problem List - Problems (1) Acute kidney injury Code(s): N17.9 - ACUTE KIDNEY FAILURE, UNSPECIFIED (2) Anemia Code(s): D64.9 - ANEMIA, UNSPECIFIED Qualifiers: Anemia type: unspecified type Qualified Code(s): D64.9 - Anemia, unspecified; D64.9 - Anemia, unspecified (3) Hyponatremia Code(s): E87.1 - HYPO-OSMOLALITY AND HYPONATREMIA (4) Respiratory failure with hypoxia Code(s): J96.91 - RESPIRATORY FAILURE, UNSPECIFIED WITH HYPOXIA Qualifiers: Chronicity: acute Qualified Code(s): J96.01 - Acute respiratory failure with hypoxia; J96.01 - Acute respiratory failure with hypoxia; J96.01 - Acute respiratory failure with hypoxia (5) Staphylococcus aureus bacteremia Code(s): R78.81 - BACTEREMIA (6) Withdrawal symptoms, alcohol Code(s): F10.239 - ALCOHOL DEPENDENCE WITH WITHDRAWAL, UNSPECIFIED Qualifiers : Complication of substance-induced condition: uncomplicated Qualified Code(s): F10.230 - Alcohol dependence with withdrawal, uncomplicated; F10.230 - Alcohol dependence with withdrawal, uncomplicated; F10.230 - Alcohol dependence with withdrawal, uncomplicated (7) Abuse, drug or alcohol Code(s): F19.10 - OTHER PSYCHOACTIVE SUBSTANCE ABUSE, UNCOMPLICATED Assessment/Plan Current Medications Generic Name Dose Route Start Last Admin Trade Name Freq PRN Reason Stop Dose Admin Acetaminophen 650 mg 09/07/17 05:53 09/16/17 18:27 Tylenol - NR 650 mg Q6H PRN Administration FEVER OR PAIN Albuterol/Ipratropium 1 amp 09/19/17 14:55 09/23/17 19:39 Duoneb - NEB 1 amp Q6H PRN Administration SHORTNESS OF BREATH Chlorhexidine Gluconate 15 ml 09/08/17 12:30 09/24/17 11:42 Peridex - MM Not Given BID [facility] Ferrous Sulfate 325 mg 09/05/17 12:00 09/24/17 11:42 Feosol - PO Not Given DAILY [facility] Folic Acid 1 mg 09/02/17 10:00 09/24/17 11:42 Folic Acid - PO Not Given DAILY [facility] Heparin Sodium (Porcine) 5,000 unit 09/24/17 14:30 Heparin - SQ TID [facility] Cefazolin Sodium 50 mls @ 100 mls/hr 09/16/17 10:00 09/24/17 11:41 Ancef 1gm Ivpb (Pre-Docked) IVPB 100 mls/hr Q8H-IV [facility] Administration Propofol 100 mls @ 5.181 mls/hr 09/24/17 14:30 09/24/17 14:55 Diprivan - IVPB 5.181 mls/hr TITR [facility] Administration Protocol 10 MCG/KG/MIN Metoprolol Tartrate 5 mg 09/24/17 18:00 Lopressor Injection - IVPUSH Q4H-IV [facility] Multivitamins/Minerals 1 each 09/02/17 10:00 09/24/17 11:32 Theragran-M PO Not Given DAILY [facility] Mupirocin 1 applic 09/23/17 10:00 09/24/17 11:00 Bactroban 2% Cream - TP 1 applic BID [facility] Administration Pantoprazole Sodium 40 mg 09/24/17 22:00 Protonix - PO BID [facility] Scopolamine HBr 1 patch 09/22/17 08:00 09/22/17 08:28 Transderm-Scop - TD 1 patch Q72H [facility] Administration Sevelamer Carbonate 800 mg 09/12/17 17:30 09/24/17 13:09 Renvela - PO Not Given TIDCM [facility] Thiamine HCl 100 mg 09/02/17 10:00 09/24/17 11:32 Vitamin B1 - PO Not Given DAILY [facility] Impression 1. ALEXANDRA 2. fluid overload 3. hypoalbuminemia 4. respiratory failure requiring intubation 5. anemia 6. etoh abuse 7. fevers 8. hypokalemia 9. pleural effusion 10. hypernatremia 11. GI bleed Plan - lasix given for congestion - may need intubation - hypernatremia can be corrected with NG tube and free water - can stop d5w - pulmonary status is declining - pts renal function is worsening - monitor urine output - chest tube care - monitor pulse ox - keep pt in ICU - will follow Dr Peres
[2017-09-24] MEDS: HEPARIN NA (PORCINE) 5,000 UNITS/ML 1ML VIAL SQ SCH ×2 (18:29→21:35)
[2017-09-24] MEDS: PANTOPRAZOLE 40 MG TABLET (FP) PO SCH (21:37)
[2017-09-25] MEDS: CEFAZOLIN (PRE-DOCKED) 50 ML IVPB SCH ×3 (01:46→17:11)
[2017-09-25] MEDS: METOPROLOL TARTRATE 5 MG/5 ML VIAL IVPUSH SCH ×3 (01:46→10:37)
[2017-09-25] MEDS: PROPOFOL 100 ML IVPB SCH ×2 (03:00→15:55)
[2017-09-25] MEDS ORDERED: HEMOQUE CONTROL SOLUTION ONE (05:51)
[2017-09-25] MEDS: HEPARIN NA (PORCINE) 5,000 UNITS/ML 1ML VIAL SQ SCH ×2 (06:00→13:38)
[2017-09-25 07:28] LABS: ALBUMIN 1.7 g/dl (3.4-5.0); ALK PHOS 210 U/L (45-117); ANION GAP 11 (8-16); BILIRUBIN,TOTAL 0.6 mg/dL (0.2-1.0); CALCIUM 7.5 mg/dL (8.5-10.1); CO2 21 mmol/L (21-32); CREATININE 4.2 mg/dL (0.7-1.3); GLUCOSE,RANDOM 141 mg/dL (74-106); PHOSPHOROUS 5.1 mg/dL (2.5-4.9); SGPT/ALT 15 U/L (12-78); TOT PROT 7.1 g/dl (6.4-8.2)
[2017-09-25 07:36] LABS: MAGNESIUM 2.1 mg/dL (1.8-2.4); SGOT/AST 93 U/L (15-37)
--- NOTE | 2017-09-25 07:41 | PN ---
Physical Exam: 24H Events: yesterday - reintubated, OGT placed and enteral feeds started with free water washes SUBJECTIVE: Patient seen and examined in ICU. Ventilated on AC mode FiO2 40%, sedated on propofol gtt OBJECTIVE: Vital Signs Period Temp Pulse Resp BP Sys/Jeff Pulse Ox Last 24 Hr 98.4 F-99.9 F 88-117 19-30 90-165/60-99 100-100 Intake & Output 09/22/17 09/23/17 09/24/17 09/25/17 23:59 23:59 23:59 23:59 Intake Total 1091 170 900 Output Total 2035 805 610 Balance -944 -635 290 Weight 87.5 kg 86.353 kg 81.42 kg GENERAL: intubated, sedated on propofol gtt ENT: OGT, moist mucous membranes LUNGS: mechanical breath sounds, abdominal breathing HEART: tachycardiac, regular rate, normal S1/S2 ABDOMEN: Soft, non-distended, non-tender, normoactive bowel sounds EXTREMITIES: 2+ UE edema, 1+ LE edema, R anterior norris pustular dermatitis unchanged : hines CBC, BMP 09/25/17 07:20 09/25/17 06:00 Hepatic Panel Total Bilirubin 0.6 mg/dL (0.2-1.0) D 09/25/17 06:00 Direct Bilirubin 1.8 mg/dL (0.0-0.2) H D 09/09/17 05:00 AST 93 U/L (15-37) H D 09/25/17 06:00 ALT 15 U/L (12-78) D 09/25/17 06:00 Alkaline Phosphatase 210 U/L (45-117) H 09/25/17 06:00 Albumin 1.7 g/dl (3.4-5.0) L 09/25/17 06:00 CXR 09/25/17: ETT and NGT in place, R effusion stable Active Medications Acetaminophen (Tylenol -) 650 mg NR Q6H PRN PRN Reason: FEVER OR PAIN Last Admin: 09/16/17 18:27 Dose: 650 mg Albuterol/Ipratropium (Duoneb -) 1 amp NEB Q6H PRN PRN Reason: SHORTNESS OF BREATH Last Admin: 09/23/17 19:39 Dose: 1 amp Apixaban (Eliquis -) 2.5 mg GT BID [facility] Chlorhexidine Gluconate (Peridex -) 15 ml MM BID [facility] Last Admin: 09/25/17 10:48 Dose: 15 ml Ferrous Sulfate (Feosol -) 325 mg PO DAILY [facility] Last Admin: 09/25/17 10:35 Dose: 325 mg Folic Acid (Folic Acid -) 1 mg PO DAILY [facility] Last Admin: 09/25/17 10:35 Dose: 1 mg Cefazolin Sodium (Ancef 1gm Ivpb (Pre-Docked)) 50 mls @ 100 mls/hr IVPB Q8H-IV [facility] Last Admin: 09/25/17 17:11 Dose: 100 mls/hr Propofol (Diprivan -) 100 mls @ 5.181 mls/hr IVPB TITR [facility]; 10 MCG/KG/MIN PRN Reason: Protocol Last Admin: 09/25/17 15:55 Dose: 40 mcg/kg/min, 20.725 mls/hr Metoprolol Tartrate (Lopressor -) 25 mg NGT BID [facility] Last Admin: 09/25/17 16:03 Dose: 25 mg Multivitamins/Minerals (Theragran-M) 1 each PO DAILY [facility] Last Admin: 09/25/17 10:35 Dose: 1 each Mupirocin (Bactroban 2% Cream -) 1 applic TP BID [facility] Last Admin: 09/25/17 10:55 Dose: 1 applic Pantoprazole Sodium (Protonix -) 40 mg PO BID [facility] Last Admin: 09/25/17 10:35 Dose: 40 mg Sevelamer Carbonate (Renvela -) 800 mg PO TIDCM [facility] Last Admin: 09/25/17 17:12 Dose: 800 mg Thiamine HCl (Vitamin B1 -) 100 mg PO DAILY [facility] Last Admin: 09/25/17 10:35 Dose: 100 mg ASSESSMENT/PLAN: 66yo man with PMH of EtOH abuse and HTN who is admitted (08/31) for acute hypoxic respiratory failure requiring mechanical ventilation (09/02 - 09/19) and sepsis, now resolving and off pressors. Persistent pulmonary infectious source of bilateral loculated PNA, and now with acute thoracic osteomyletitis (T9-T10) . Patient continues to have low grade fevers. Currently being treated with Cefazolin (started 09/16). MSSA bacteremia, now resolved cleared; ALISA (09/13) r/ o endocarditis. Serial blood cultures collected 09/08, 09/10, 09/12, 09/19, 09/22 NGTD. Sputum cultures grew yeast-like organism and patient treated with Diflucan. RLE pustules noted on anterior norris, now resolving, wound cultures normal skin north/no PMNs and s/p 3days acylovir for possible zoster (09/19-). #acute hypoxic respiratory failure -Vent mgmt per ICU tube -sedation holiday and SBT as tolerated -considering TPA through CT to improve drainage #sepsis 2/2 cavitary PNA, acute osteomyelitis -R chest tube draining to water seal -Continue Cefazolin 1gm Q8H (started 09/16), will need prolonged course due to acute osteomyelitis (6 wks) #GI bleed, likely 2/2 trauma from rectal tube, s/p 2Ux PRBCs, Hgb stable, no further bleeds -protonix 40mg NGT BID -Trend H&H, transfuse Hgb<7 #Afib - CHADVASC score of 2 indicating AC -Cardiology following -consider PO amio for rate control (currently in NSR) -Started Eliquis 2.5mg NGT BID #suspected chronic diastolic heart failure - ECHO 09/02/2017 rprobable preserved LV function, but can't R/O regional wall motion abnormality -Metoprol 25mg NGT BID #ALEXANDRA -Nephrology consulted -c3/c4 complement level wnl; PROSPER positive -Strict I&Os, hines -Renal dose for meds -Cont Ferrous Sulfate 325 mg PO DAILY [facility] -Cont Sevelamer Carbonate (Renvela) 800 mg PO TID #EtOH abuse -Monitor for signs of EtOH withdrawal -MVI, thiamine 100mg PO qd, folic acid 1mg PO daily #FEN -NS 500cc bolus -hyperPhos noted -Enteral feeds #PPX -Eliquis -GI - Pantoprazole 40mg NGT BID #Dispo: continue ICU monitoring FULL code d/w Dr. Akbar Salter MD PGY-1 Visit type - Emergency Visit Emergency Visit: No - New Patient This patient is new to me today: No - Critical Care Critical Care patient: Yes Total Critical Care Time (in minutes): 35 Critical Care Statement: The care of this patient involved high complexity decision making to prevent further life threatening deterioration of the patient 's condition and/or to evaluate & treat vital organ system(s) failure or risk of failure.
[2017-09-25 08:24] LABS: MCHC 34.1 g/dl (32.0-35.9); MEAN CELL VOLUME 88.1 fl (80-96); MEAN PLT VOLUME 7.5 fl (7.5-11.1); PLATELET COUNT 239 K/MM3 (134-434); WHITE BLOOD COUNT 12.3 K/mm3 (4.0-10.0)
--- NOTE | 2017-09-25 08:38 | PN ---
Progress Note, Physician History of Present Illness: No bleeding per rectum overnight. Hbg stable. Intubated - Current Medication List Current Medications: Active Medications Acetaminophen (Tylenol -) 650 mg NR Q6H PRN PRN Reason: FEVER OR PAIN Last Admin: 09/16/17 18:27 Dose: 650 mg Albuterol/Ipratropium (Duoneb -) 1 amp NEB Q6H PRN PRN Reason: SHORTNESS OF BREATH Last Admin: 09/23/17 19:39 Dose: 1 amp Chlorhexidine Gluconate (Peridex -) 15 ml MM BID [facility] Last Admin: 09/24/17 21:48 Dose: 15 ml Ferrous Sulfate (Feosol -) 325 mg PO DAILY [facility] Last Admin: 09/24/17 11:42 Dose: Not Given Folic Acid (Folic Acid -) 1 mg PO DAILY [facility] Last Admin: 09/24/17 11:42 Dose: Not Given Heparin Sodium (Porcine) (Heparin -) 5,000 unit SQ TID [facility] Last Admin: 09/24/17 21:35 Dose: 5,000 unit Cefazolin Sodium (Ancef 1gm Ivpb (Pre-Docked)) 50 mls @ 100 mls/hr IVPB Q8H-IV [facility] Last Admin: 09/25/17 01:46 Dose: 100 mls/hr Propofol (Diprivan -) 100 mls @ 5.181 mls/hr IVPB TITR [facility]; 10 MCG/KG/MIN PRN Reason: Protocol Last Admin: 09/25/17 03:00 Dose: 10 mcg/kg/min, 5.181 mls/hr Metoprolol Tartrate (Lopressor Injection -) 5 mg IVPUSH Q4H-IV [facility] Last Admin: 09/25/17 06:00 Dose: 5 mg Multivitamins/Minerals (Theragran-M) 1 each PO DAILY [facility] Last Admin: 09/24/17 11:32 Dose: Not Given Mupirocin (Bactroban 2% Cream -) 1 applic TP BID [facility] Last Admin: 09/24/17 21:48 Dose: 1 applic Pantoprazole Sodium (Protonix -) 40 mg PO BID [facility] Last Admin: 09/24/17 21:37 Dose: 40 mg Scopolamine HBr (Transderm-Scop -) 1 patch TD Q72H [facility] Last Admin: 09/22/17 08:28 Dose: 1 patch Sevelamer Carbonate (Renvela -) 800 mg PO TIDCM [facility] Last Admin: 09/24/17 18:29 Dose: Not Given Thiamine HCl (Vitamin B1 -) 100 mg PO DAILY [facility] Last Admin: 09/24/17 11:32 Dose: Not Given - Objective Vital Signs: Vital Signs Temperature 98.4 F 09/25/17 06:00 Pulse Rate 114 H 09/25/17 07:28 Respiratory Rate 26 H 09/25/17 07:28 Blood Pressure 110/68 09/25/17 07:28 O2 Sat by Pulse Oximetry (%) 100 09/24/17 23:50 Labs: CBC, BMP 09/25/17 06:00 INR, PTT INR 1.14 (0.82-1.09) 09/21/17 06:10 Problem List - Problems (1) Respiratory failure with hypoxia Code(s): J96.91 - RESPIRATORY FAILURE, UNSPECIFIED WITH HYPOXIA Qualifiers: Chronicity: acute Qualified Code(s): J96.01 - Acute respiratory failure with hypoxia (2) Staphylococcus aureus bacteremia Code(s): R78.81 - BACTEREMIA (3) History of alcohol abuse Code(s): Z87.898 - PERSONAL HISTORY OF OTHER SPECIFIED CONDITIONS (4) Gastric ulcer Code(s): K25.9 - GASTRIC ULCER, UNSP ACUTE OR CHRONIC, W/O HEMOR OR PERF (5) Rectal bleeding Code(s): K62.5 - HEMORRHAGE OF ANUS AND RECTUM Assessment/Plan BRBPR resolved. Hgb stable. Close monitoring as per ICU protocols. Will follow PRN
[2017-09-25] MEDS: SEVELAMER CARBONATE 800 MG TAB (FP) PO SCH ×3 (09:00→17:12)
[2017-09-25] MEDS: PANTOPRAZOLE 40 MG TABLET (FP) PO SCH ×2 (10:35→21:34)
[2017-09-25] MEDS: MULTIVITAMINS THER W-MINERALS COMBO TABLET (FP) PO SCH (10:35)
[2017-09-25] MEDS: FOLIC ACID 1 MG TABLET (FP) PO SCH (10:35)
[2017-09-25] MEDS: FERROUS SO4 325 MG TABLET (FP) PO SCH (10:35)
[2017-09-25] MEDS: THIAMINE HCL 100 MG TABLET (FP) PO SCH (10:35)
[2017-09-25] MEDS: CHLORHEXIDINE GLUCONATE 0.12% 15ML CUP MM SCH ×2 (10:48→21:34)
[2017-09-25] MEDS: MUPIROCIN CA 2% TOPICAL CREAM 15 GM TUBE TP SCH ×2 (10:55→21:36)
--- NOTE | 2017-09-25 11:14 | PN ---
Physical Exam: SUBJECTIVE: Patient seen and examined sedation vacation this morning, did not attempt wean trial due to HR in 130s, sinus rhythm. Mech vent AC, off pressers. Tube feeds re started, h/h stabilized, lower GI bleed resolved. Cr continue to rise. Chest tube drain 10cc in 24hrs. OBJECTIVE: Vital Signs Period Temp Pulse Resp BP Sys/Jeff Pulse Ox Last 24 Hr 98.4 F-99.9 F 88-134 19-30 90-161/60-99 100-100 GENERAL: The patient is intubated and sedated, arousable off sedation HEAD: Normal with no signs of trauma. EYES:pupils reactive LUNGS: coarse breath sounds; HEART: tachycardic reg rhythm, S1, S2 without murmur, rub or gallop. ABDOMEN: obese Soft, nontender, nondistended, normoactive bowel sounds, no guarding, no rebound, no hepatosplenomegaly, no masses. EXTREMITIES: 2+ pulses, warm, well-perfused, no edema. NEUROLOGICAL: sedated SKIN: RLE anterior pustular skin rash; Laboratory Results - last 24 hr 09/24/17 09/25/17 09/25/17 11:37 06:00 07:20 WBC 12.3 H RBC 2.73 L Hgb 8.2 L Hct 24.0 L MCV 88.1 MCH 30.0 MCHC 34.1 RDW 17.0 H Plt Count 239 MPV 7.5 D PTT (Actin FS) Puncture Site Right radial ABG pH 7.33 L D ABG pCO2 at Pt Temp 37.2 ABG pO2 at Pt Temp 131.0 H D ABG HCO3 19.2 L ABG O2 Sat (Measured) 99.0 H ABG O2 Content 11.4 L ABG Base Excess -5.6 L Anoop Test Positive O2 Delivery Device Bipap 12/6(12) Oxygen Flow Rate 40% Sodium 151 H Potassium 3.9 Chloride 119 H Carbon Dioxide 21 Anion Gap 11 BUN 94 H Creatinine 4.2 H Creat Clearance w eGFR 14.18 Random Glucose 141 H D Calcium 7.5 L Phosphorus 5.1 H Magnesium 2.1 Total Bilirubin 0.6 D AST 93 H D ALT 15 D Alkaline Phosphatase 210 H Total Protein 7.1 Albumin 1.7 L 09/25/17 07:20 WBC RBC Hgb Hct MCV MCH MCHC RDW Plt Count MPV PTT (Actin FS) 32.3 Puncture Site ABG pH ABG pCO2 at Pt Temp ABG pO2 at Pt Temp ABG HCO3 ABG O2 Sat (Measured) ABG O2 Content ABG Base Excess Anoop Test O2 Delivery Device Oxygen Flow Rate Sodium Potassium Chloride Carbon Dioxide Anion Gap BUN Creatinine Creat Clearance w eGFR Random Glucose Calcium Phosphorus Magnesium Total Bilirubin AST ALT Alkaline Phosphatase Total Protein Albumin Active Medications Generic Name Dose Route Start Last Admin Trade Name Freq PRN Reason Stop Dose Admin Acetaminophen 650 mg 09/07/17 05:53 09/16/17 18:27 Tylenol - NR 650 mg Q6H PRN Administration FEVER OR PAIN Albuterol/Ipratropium 1 amp 09/19/17 14:55 09/23/17 19:39 Duoneb - NEB 1 amp Q6H PRN Administration SHORTNESS OF BREATH Chlorhexidine Gluconate 15 ml 09/08/17 12:30 09/25/17 10:48 Peridex - MM 15 ml BID KINGS Administration Ferrous Sulfate 325 mg 09/05/17 12:00 09/25/17 10:35 Feosol - PO 325 mg DAILY KINGS Administration Folic Acid 1 mg 09/02/17 10:00 09/25/17 10:35 Folic Acid - PO 1 mg DAILY KINGS Administration Heparin Sodium (Porcine) 5,000 unit 09/24/17 14:30 09/24/17 21:35 Heparin - SQ 5,000 unit TID KINGS Administration Cefazolin Sodium 50 mls @ 100 mls/hr 09/16/17 10:00 09/25/17 10:48 Ancef 1gm Ivpb (Pre-Docked) IVPB 100 mls/hr Q8H-IV KINGS Administration Propofol 100 mls @ 5.181 mls/hr 09/24/17 14:30 09/25/17 03:00 Diprivan - IVPB 10 mcg/kg/min TITR KINGS 5.181 mls/hr Protocol Administration 10 MCG/KG/MIN Metoprolol Tartrate 5 mg 09/24/17 18:00 09/25/17 10:37 Lopressor Injection - IVPUSH 5 mg Q4H-IV KINGS Administration Multivitamins/Minerals 1 each 09/02/17 10:00 09/25/17 10:35 Theragran-M PO 1 each DAILY [facility]INGS Administration Mupirocin 1 applic 09/23/17 10:00 09/25/17 10:55 Bactroban 2% Cream - TP 1 applic BID [facility]INGS Administration Pantoprazole Sodium 40 mg 09/24/17 22:00 09/25/17 10:35 Protonix - PO 40 mg BID [facility]INGS Administration Sevelamer Carbonate 800 mg 09/12/17 17:30 09/25/17 09:00 Renvela - PO 800 mg TIDCM KINGS Administration Thiamine HCl 100 mg 09/02/17 10:00 09/25/17 10:35 Vitamin B1 - PO 100 mg DAILY KINGS Administration A66 year old male with a past medical history of alcohol dependance found unresponsive on the floor; s/p acute hypoxic respiratory failure complicated by MSSA bacteremia with loculated pleural effusions. #neuro -sedated on propfol #respiratory: -reintubated 09/24 [facility] vent AC -acute hypoxic respiratory failure: -HOB elevated -loculated pleural effusions; with chest tube; currently not draining ; tpa clot when stable ; spoke with pharmacy; they do not have both medicaitons for protocol; -cont IV cefazolin; as per ID for PNA/mssa bactermia/osteo #cardiovascular: -LV diastolic failure; hold Lasix for now due to samra -paroxysmal atrial fibrillation; [id number] score; 2 -start eliquis 2.5mg po bid -cont Lopressor sched #renal -full renal workup negative ; would need renal biopsy when stable -likely related to sepsis -trend Cr. -appreciate renal #GI -acute GI bleed seconday to rectal tube; resolved -cont protonix 40mg bid -appreciate GI #ID -PNA: cont IV antibiotics -cont trumpet suctioning -id appreciated #hypernatremia: -replace free water deficit; -start feeds for more absorption #ID -sepsis; sec pna -osteomyelitis; disc t 07/28; antibiotic regimen 6w #electrolytes -hypernatremia; replace free water #diet: -tube feeds; nepro; vol VTE; on eliquis GI on protonix bid Disposition : cont ICU monitoring Problem List - Problems (1) Hyponatremia Code(s): E87.1 - HYPO-OSMOLALITY AND HYPONATREMIA (2) Hypokalemia Code(s): E87.6 - HYPOKALEMIA (3) Respiratory failure with hypoxia Code(s): J96.91 - RESPIRATORY FAILURE, UNSPECIFIED WITH HYPOXIA Qualifiers: Chronicity: acute Qualified Code(s): J96.01 - Acute respiratory failure with hypoxia (4) Pneumonia Code(s): J18.9 - PNEUMONIA, UNSPECIFIED ORGANISM Qualifiers: Pneumonia type: aspiration pneumonia (5) Staphylococcus aureus bacteremia Code(s): R78.81 - BACTEREMIA (7) Endocarditis due to Staphylococcus Code(s): I33.0 - ACUTE AND SUBACUTE INFECTIVE ENDOCARDITIS; B95.8 - UNSP STAPHYLOCOCCUS THE CAUSE OF DISEASES CLASSD ELSWHR (8) History of alcohol abuse Code(s): Z87.898 - PERSONAL HISTORY OF OTHER SPECIFIED CONDITIONS Visit type - Emergency Visit Emergency Visit: Yes ED Registration Date: 08/31/17 Care time: The patient presented to the Emergency Department on the above date and was hospitalized for further evaluation of their emergent condition. - New Patient This patient is new to me today: Yes Date on this admission: 09/25/17 - Critical Care Critical Care patient: Yes Total Critical Care Time (in minutes): 35 Critical Care Statement: The care of this patient involved high complexity decision making to prevent further life threatening deterioration of the patient 's condition and/or to evaluate & treat vital organ system(s) failure or risk of failure.
--- NOTE | 2017-09-25 13:33 | PN ---
Progress Note, Physician History of Present Illness: Reintubated for recurrent respiratory failure, mucous plugging noted, telemetry shows sinus tachycardia. No further hematochezia once rectal tube d/diadnra. - Current Medication List Current Medications: Active Medications Acetaminophen (Tylenol -) 650 mg NR Q6H PRN PRN Reason: FEVER OR PAIN Last Admin: 09/16/17 18:27 Dose: 650 mg Albuterol/Ipratropium (Duoneb -) 1 amp NEB Q6H PRN PRN Reason: SHORTNESS OF BREATH Last Admin: 09/23/17 19:39 Dose: 1 amp Chlorhexidine Gluconate (Peridex -) 15 ml MM BID [facility] Last Admin: 09/25/17 10:48 Dose: 15 ml Ferrous Sulfate (Feosol -) 325 mg PO DAILY [facility] Last Admin: 09/25/17 10:35 Dose: 325 mg Folic Acid (Folic Acid -) 1 mg PO DAILY [facility] Last Admin: 09/25/17 10:35 Dose: 1 mg Heparin Sodium (Porcine) (Heparin -) 5,000 unit SQ TID [facility] Last Admin: 09/24/17 21:35 Dose: 5,000 unit Cefazolin Sodium (Ancef 1gm Ivpb (Pre-Docked)) 50 mls @ 100 mls/hr IVPB Q8H-IV [facility] Last Admin: 09/25/17 10:48 Dose: 100 mls/hr Propofol (Diprivan -) 100 mls @ 5.181 mls/hr IVPB TITR KINGS; 10 MCG/KG/MIN PRN Reason: Protocol Last Admin: 09/25/17 03:00 Dose: 10 mcg/kg/min, 5.181 mls/hr Metoprolol Tartrate (Lopressor Injection -) 5 mg IVPUSH Q4H-IV [facility] Last Admin: 09/25/17 10:37 Dose: 5 mg Multivitamins/Minerals (Theragran-M) 1 each PO DAILY [facility] Last Admin: 09/25/17 10:35 Dose: 1 each Mupirocin (Bactroban 2% Cream -) 1 applic TP BID [facility] Last Admin: 09/25/17 10:55 Dose: 1 applic Pantoprazole Sodium (Protonix -) 40 mg PO BID [facility] Last Admin: 09/25/17 10:35 Dose: 40 mg Sevelamer Carbonate (Renvela -) 800 mg PO TIDCM [facility] Last Admin: 09/25/17 09:00 Dose: 800 mg Thiamine HCl (Vitamin B1 -) 100 mg PO DAILY [facility] Last Admin: 09/25/17 10:35 Dose: 100 mg - Objective Vital Signs: Vital Signs Temperature 98.8 F 09/25/17 12:51 Pulse Rate 119 H 09/25/17 12:51 Respiratory Rate 21 09/25/17 12:51 Blood Pressure 130/74 09/25/17 12:51 O2 Sat by Pulse Oximetry (%) 100 09/24/17 23:50 Constitutional: Yes: Thin Neck: Yes: Supple Cardiovascular: Yes: Tachycardia Respiratory: Yes: Intubated, Mechanically Ventilated, Rhonchi, Other (Right chest tube in place) Gastrointestinal: Yes: Soft, Hypoactive Bowel Sounds Edema: No Labs: CBC, BMP 09/25/17 07:20 09/25/17 06:00 INR, PTT INR 1.14 (0.82-1.09) 09/21/17 06:10 Problem List - Problems (1) Respiratory failure with hypoxia Code(s): J96.91 - RESPIRATORY FAILURE, UNSPECIFIED WITH HYPOXIA Qualifiers: Chronicity: acute Qualified Code(s): J96.01 - Acute respiratory failure with hypoxia (2) Pneumonia Code(s): J18.9 - PNEUMONIA, UNSPECIFIED ORGANISM Qualifiers: Pneumonia type: aspiration pneumonia (3) Staphylococcus aureus bacteremia Code(s): R78.81 - BACTEREMIA (5) History of alcohol abuse Code(s): Z87.898 - PERSONAL HISTORY OF OTHER SPECIFIED CONDITIONS (6) Acute kidney injury Code(s): N17.9 - ACUTE KIDNEY FAILURE, UNSPECIFIED (7) Acute diastolic heart failure Code(s): I50.31 - ACUTE DIASTOLIC (CONGESTIVE) HEART FAILURE (8) Anemia Code(s): D64.9 - ANEMIA, UNSPECIFIED Qualifiers: Anemia type: unspecified type Qualified Code(s): D64.9 - Anemia, unspecified (9) Discitis of cervicothoracic region Code(s): M46.43 - DISCITIS, UNSPECIFIED, CERVICOTHORACIC REGION (10) Paroxysmal atrial fibrillation Code(s): I48.0 - PAROXYSMAL ATRIAL FIBRILLATION (11) Hypernatremia Code(s): E87.0 - HYPEROSMOLALITY AND HYPERNATREMIA (12) Rectal ulcer Code(s): K62.6 - ULCER OF ANUS AND RECTUM Assessment/Plan 1. Paroxysmal atrial fibrillation [id number] score of 2, currently in sinus rhythm off of Heparin drip 2. Acute hypoxic respiratory failure, on BiPAP, pulmonary infiltrates/pulmonary edema improving 3. Cavitating pneumonia, MSSA bacteremia, post septic shock no evidence of endocarditis by ALISA criteria 4. Diastolic LV dysfunction with class I-II NYHA congestive heart failure, volume overload, resolved 5. Osteomyelitis T9-T10 discitis 6. Loculated effusion post chest tube, tube chest tube obstruction 7. History of alcohol dependence 8. Acute renal insufficiency 9. Hypernatremia 10. Anemia PLAN: 1. BD as needed, wean FIO2 as tolerated, enteral feeds with free water repletion 2. Complete abx course per ID service 3. DVT and GI prophylaxis 4. Change Metoprolol IV to Lopressor 25 bid 5. Change sq heparin to Eliquis 2.5 bid (Cr 4.2) as hematochezia was due to rectal tube trauma 6. Continue management as per critical care team. Chest tube management.
--- NOTE | 2017-09-25 14:59 | PN ---
Teaching Attending Note Name of Resident: Tejal Ortiz ATTENDING PHYSICIAN STATEMENT I saw and evaluated the patient. I reviewed the resident's note and discussed the case with the resident. I agree with the resident's findings and plan as documented. SUBJECTIVE: Pt seen and examined in the ICU. Remains intubated, sedated. Vented on volume assist control with 40% FiO2. No fevers recorded. OBJECTIVE: Last Vital Signs Temp Pulse Resp BP Pulse Ox 98.8 F 119 H 21 121/72 100 09/25/17 12:51 09/25/17 13:54 09/25/17 12:51 09/25/17 13:54 09/24/17 23:50 Intake & Output 09/22/17 09/23/17 09/24/17 09/25/17 23:59 23:59 23:59 23:59 Intake Total 1091 170 900 Output Total 2035 805 610 Balance -944 -635 290 Weight 192 lb 14.472 oz 190 lb 6 oz 179 lb 8 oz Gen: intubated, sedated Heart: tachycardic, regular Lung: distant breath sounds Abd: soft, nontender Ext: no edema CBC, BMP 09/25/17 07:20 09/25/17 06:00 Active Medications Acetaminophen (Tylenol -) 650 mg NR Q6H PRN PRN Reason: FEVER OR PAIN Last Admin: 09/16/17 18:27 Dose: 650 mg Albuterol/Ipratropium (Duoneb -) 1 amp NEB Q6H PRN PRN Reason: SHORTNESS OF BREATH Last Admin: 09/23/17 19:39 Dose: 1 amp Apixaban (Eliquis -) 2.5 mg GT BID KINGS Chlorhexidine Gluconate (Peridex -) 15 ml MM BID [facility]INGS Last Admin: 09/25/17 10:48 Dose: 15 ml Ferrous Sulfate (Feosol -) 325 mg PO DAILY [facility]INGS Last Admin: 09/25/17 10:35 Dose: 325 mg Folic Acid (Folic Acid -) 1 mg PO DAILY [facility]INGS Last Admin: 09/25/17 10:35 Dose: 1 mg Cefazolin Sodium (Ancef 1gm Ivpb (Pre-Docked)) 50 mls @ 100 mls/hr IVPB Q8H-IV [facility] Last Admin: 09/25/17 10:48 Dose: 100 mls/hr Propofol (Diprivan -) 100 mls @ 5.181 mls/hr IVPB TITR KINGS; 10 MCG/KG/MIN PRN Reason: Protocol Last Admin: 09/25/17 03:00 Dose: 10 mcg/kg/min, 5.181 mls/hr Metoprolol Tartrate (Lopressor -) 25 mg NGT BID [facility] Multivitamins/Minerals (Theragran-M) 1 each PO DAILY [facility] Last Admin: 09/25/17 10:35 Dose: 1 each Mupirocin (Bactroban 2% Cream -) 1 applic TP BID [facility] Last Admin: 09/25/17 10:55 Dose: 1 applic Pantoprazole Sodium (Protonix -) 40 mg PO BID [facility] Last Admin: 09/25/17 10:35 Dose: 40 mg Sevelamer Carbonate (Renvela -) 800 mg PO TIDCM [facility] Last Admin: 09/25/17 13:38 Dose: 800 mg Thiamine HCl (Vitamin B1 -) 100 mg PO DAILY [facility] Last Admin: 09/25/17 10:35 Dose: 100 mg ASSESSMENT AND PLAN: Acute Hypoxic Respiratory Failure Pneumonia MSSA Bacteremia Loculated Pleural Effusions LV Diastolic Dysfunction Paroxysmal Atrial Fibrillation Acute Kidney Injury GI Bleed likely from rectal tube/ulcer Acute Blood Loss Anemia - continue antibiotics - hold heparin gtt - protonix - monitor H/H, coags - planning on intra-pleural tPA but will hold off until stabilized - O2 to keep SpO2 >90% - aspiration precautions - free water replacement - DVT prophylaxis - continue ICU monitoring critical care time spent in reviewing chart, evaluating patient and formulating plan 40 min
[2017-09-25] MEDS ORDERED: SODIUM CHLORIDE 500 ML IV STA (15:08)
--- NOTE | 2017-09-25 15:25 | PN ---
Progress Note (short form) - Note Progress Note: intubated yesterday pm, suctioned large quantities of dry secretions Vital Signs Period Temp Pulse Resp BP Sys/Jeff Pulse Ox Last 24 Hr 98.4 F-99.9 F 88-134 20-31 90-161/63-98 100-100 cor-rrr lungs decreased bs at bases +chest tube abd soft,nt ext +edema CBC, BMP 09/25/17 07:20 09/25/17 06:00 Microbiology 09/22/17 13:45 Blood Culture - Preliminary Blood - Peripheral Venous NO GROWTH OBTAINED AFTER 72 HOURS, INCUBATION TO CONTINUE FOR 2 DAYS. 09/22/17 13:45 Blood Culture - Preliminary Blood - Peripheral Venous NO GROWTH OBTAINED AFTER 72 HOURS, INCUBATION TO CONTINUE FOR 2 DAYS. 09/19/17 10:23 Blood Culture - Final Blood - Peripheral Venous NO GROWTH AFTER 5 DAYS INCUBATION 09/19/17 10:23 Blood Culture - Final Blood - Peripheral Venous NO GROWTH AFTER [address]- effusions, t9/10 discitis chest xray unchanged a/p MSSA sepsis T9/10 discitis respiratory failure ARF anemia- gi bleed ALISA negative continue cefazolin as ordered will require residential treatment
[2017-09-25] MEDS: METOPROLOL TARTRATE 25 MG TABLET (FP) NGT SCH ×2 (16:03→21:34)
--- NOTE | 2017-09-25 17:22 | PN ---
Teaching Attending Note Name of Resident: Lydia Salter ATTENDING PHYSICIAN STATEMENT Time of evaluation: 10:00 AM I saw and evaluated the patient. I reviewed the resident's note and discussed the case with the resident. I agree with the resident's findings and plan as documented. SUBJECTIVE: Patient seen and examined. intubated sedated, unable to do ROS. OBJECTIVE: Vital Signs Period Temp Pulse Resp BP Sys/Jeff Pulse Ox Last 24 Hr 98.4 F-99.9 F 92-134 20-31 90-161/63-98 100-100 Intake & Output 09/22/17 09/23/17 09/24/17 09/25/17 23:59 23:59 23:59 23:59 Intake Total 1091 170 900 Output Total 2035 805 610 Balance -944 -635 290 Weight 192 lb 14.472 oz 190 lb 6 oz 179 lb 8 oz General; intubated sedated in bed CVS S1S2 regular rapid Chest occasional rales, limited exam Abdomen soft, obese, positive bowel sounds extremities anasarca improved, RLE wounds unchanged Neuro Intubated sedated, moves extremities spontaneously occasionally, facial symmetry, limited exam Home Medication List Medication Instructions Recorded Confirmed Type Unobtainable [Unobtainable] 08/31/17 08/31/17 History Active Medications Generic Name Dose Route Start Last Admin Trade Name Freq PRN Reason Stop Dose Admin Acetaminophen 650 mg 09/07/17 05:53 09/16/17 18:27 Tylenol - NR 650 mg Q6H PRN Administration FEVER OR PAIN Albuterol/Ipratropium 1 amp 09/19/17 14:55 09/23/17 19:39 Duoneb - NEB 1 amp Q6H PRN Administration SHORTNESS OF BREATH Apixaban 2.5 mg 09/25/17 22:00 Eliquis - GT BID KINGS Chlorhexidine Gluconate 15 ml 09/08/17 12:30 09/25/17 10:48 Peridex - MM 15 ml BID KINGS Administration Ferrous Sulfate 325 mg 09/05/17 12:00 09/25/17 10:35 Feosol - PO 325 mg DAILY [facility]INGS Administration Folic Acid 1 mg 09/02/17 10:00 09/25/17 10:35 Folic Acid - PO 1 mg DAILY [facility] Administration Cefazolin Sodium 50 mls @ 100 mls/hr 09/16/17 10:00 11/08/17 17:11 Ancef 1gm Ivpb (Pre-Docked) IVPB 100 mls/hr Q8H-IV KINGS Administration Propofol 100 mls @ 5.181 mls/hr 09/24/17 14:30 09/25/17 15:55 Diprivan - IVPB 40 mcg/kg/min TITR KINGS 20.725 mls/hr Protocol Administration 10 MCG/KG/MIN Metoprolol Tartrate 25 mg 09/25/17 13:45 09/25/17 16:03 Lopressor - NGT 25 mg BID KINGS Administration Multivitamins/Minerals 1 each 09/02/17 10:00 09/25/17 10:35 Theragran-M PO 1 each DAILY [facility] Administration Mupirocin 1 applic 09/23/17 10:00 09/25/17 10:55 Bactroban 2% Cream - TP 1 applic BID KINGS Administration Pantoprazole Sodium 40 mg 09/24/17 22:00 09/25/17 10:35 Protonix - PO 40 mg BID KINGS Administration Sevelamer Carbonate 800 mg 09/12/17 17:30 09/25/17 17:12 Renvela - PO 800 mg TIDCM KINGS Administration Thiamine HCl 100 mg 09/02/17 10:00 09/25/17 10:35 Vitamin B1 - PO 100 mg DAILY KINGS Administration Laboratory Results - last 24 hr 09/25/17 09/25/17 09/25/17 06:00 07:20 07:20 WBC 12.3 H RBC 2.73 L Hgb 8.2 L Hct 24.0 L MCV 88.1 MCH 30.0 MCHC 34.1 RDW 17.0 H Plt Count 239 MPV 7.5 D PTT (Actin FS) 32.3 Sodium 151 H Potassium 3.9 Chloride 119 H Carbon Dioxide 21 Anion Gap 11 BUN 94 H Creatinine 4.2 H Creat Clearance w eGFR 14.18 Random Glucose 141 H D Calcium 7.5 L Phosphorus 5.1 H Magnesium 2.1 Total Bilirubin 0.6 D AST 93 H D ALT 15 D Alkaline Phosphatase 210 H Total Protein 7.1 Albumin 1.7 L ASSESSMENT AND PLAN: -Acute hypoxic respiratory failure -Severe sepsis due to cavitary PNA, MSSA bacteremia, ALISA neg for vegetation -Large right loculated pleural effusion, s/p chest tube -Acute T9-T10 discitis/osteomyelitis -Hematochezia -ARF, from sepsis vs medication related -Acute on chronic anemia, suspect from renal dysfunction, episode of hematochezia suspected from rectal tube/heparin, resolved for now -AFib with RVR recurrent -Hypokalemia/hypomagnesemia -Hyperphosphatemia -Hypovolumic hypernatremia -Alcohol abuse -Normocytic anemia -Acute transaminitis -Chronic right subdural hematoma Plan: Reintubated over last 24 hours PLan for tpa in chest tube as stablizes. Cefazolin, ID input appreciated, atleast 6 weeks antibiotics with likely repeat imaging then, repeat blood cultures sent 09/22, follow up. No further hematochezia, off heparin drip, placed on low dose eliquis, discussed with ICU/DR. Cazares, will continue with monitoring fo rnow. Renal function gradually worsening,creatinine rising, gentle fluid challenge, follow up with renal. Lasix prn. NG tube feeds resumed with free water flushes, monitor Na levels. OFf iv lopressor, on PO metoprolol. Currently with sinus tach, not afib. Replete lytes as needed. Trend LFTs Patient critical with ongoing multiorgan dsyfunction. total critical care time spent 35 min.
--- NOTE | 2017-09-25 18:39 | PN ---
Progress Note, Physician History of Present Illness: Pt seen and examined at bedside. He remains in the ICU. Pt is intubated. - Current Medication List Current Medications: Active Medications Acetaminophen (Tylenol -) 650 mg NR Q6H PRN PRN Reason: FEVER OR PAIN Last Admin: 09/16/17 18:27 Dose: 650 mg Albuterol/Ipratropium (Duoneb -) 1 amp NEB Q6H PRN PRN Reason: SHORTNESS OF BREATH Last Admin: 09/23/17 19:39 Dose: 1 amp Apixaban (Eliquis -) 2.5 mg GT BID [facility] Chlorhexidine Gluconate (Peridex -) 15 ml MM BID [facility] Last Admin: 09/25/17 10:48 Dose: 15 ml Ferrous Sulfate (Feosol -) 325 mg PO DAILY [facility] Last Admin: 09/25/17 10:35 Dose: 325 mg Folic Acid (Folic Acid -) 1 mg PO DAILY [facility] Last Admin: 09/25/17 10:35 Dose: 1 mg Cefazolin Sodium (Ancef 1gm Ivpb (Pre-Docked)) 50 mls @ 100 mls/hr IVPB Q8H-IV [facility] Last Admin: 09/25/17 17:11 Dose: 100 mls/hr Propofol (Diprivan -) 100 mls @ 5.181 mls/hr IVPB TITR [facility]; 10 MCG/KG/MIN PRN Reason: Protocol Last Admin: 09/25/17 15:55 Dose: 40 mcg/kg/min, 20.725 mls/hr Metoprolol Tartrate (Lopressor -) 25 mg NGT BID [facility] Last Admin: 09/25/17 16:03 Dose: 25 mg Multivitamins/Minerals (Theragran-M) 1 each PO DAILY [facility] Last Admin: 09/25/17 10:35 Dose: 1 each Mupirocin (Bactroban 2% Cream -) 1 applic TP BID [facility] Last Admin: 09/25/17 10:55 Dose: 1 applic Pantoprazole Sodium (Protonix -) 40 mg PO BID [facility] Last Admin: 09/25/17 10:35 Dose: 40 mg Sevelamer Carbonate (Renvela -) 800 mg PO TIDCM [facility] Last Admin: 09/25/17 17:12 Dose: 800 mg Thiamine HCl (Vitamin B1 -) 100 mg PO DAILY [facility] Last Admin: 09/25/17 10:35 Dose: 100 mg - Objective Vital Signs: Vital Signs Temperature 98.8 F 09/25/17 14:00 Pulse Rate 109 H 09/25/17 17:00 Respiratory Rate 26 H 09/25/17 17:00 Blood Pressure 113/75 09/25/17 17:00 O2 Sat by Pulse Oximetry (%) 100 09/24/17 23:50 Constitutional: Yes: Calm Eyes: Yes: Conjunctiva Clear Cardiovascular: Yes: S1, S2 Respiratory: Yes: Mechanically Ventilated, Other (chest tube) Gastrointestinal: Yes: Soft Genitourinary: Yes: Freeman Present Musculoskeletal: Yes: Muscle Weakness Edema: Yes Neurological: Yes: Lethargy Labs: CBC, BMP 09/25/17 07:20 09/25/17 06:00 INR, PTT INR 1.14 (0.82-1.09) 09/21/17 06:10 - ....Imaging Chest X-ray: Report Reviewed Problem List - Problems (1) Abuse, drug or alcohol Code(s): F19.10 - OTHER PSYCHOACTIVE SUBSTANCE ABUSE, UNCOMPLICATED (2) Withdrawal symptoms, alcohol Code(s): F10.239 - ALCOHOL DEPENDENCE WITH WITHDRAWAL, UNSPECIFIED Qualifiers: Qualified Code(s): F10.230 - Alcohol dependence with withdrawal, uncomplicated (3) Hyponatremia Code(s): E87.1 - HYPO-OSMOLALITY AND HYPONATREMIA (4) Respiratory failure with hypoxia Code(s): J96.91 - RESPIRATORY FAILURE, UNSPECIFIED WITH HYPOXIA Qualifiers: Qualified Code(s): J96.01 - Acute respiratory failure with hypoxia (5) Staphylococcus aureus bacteremia Code(s): R78.81 - BACTEREMIA (6) Acute kidney injury Code(s): N17.9 - ACUTE KIDNEY FAILURE, UNSPECIFIED (7) Anemia Code(s): D64.9 - ANEMIA, UNSPECIFIED Qualifiers: Qualified Code(s): D64.9 - Anemia, unspecified Assessment/Plan Current Medications Generic Name Dose Route Start Last Admin Trade Name Freq PRN Reason Stop Dose Admin Acetaminophen 650 mg 09/07/17 05:53 09/16/17 18:27 Tylenol - NR 650 mg Q6H PRN Administration FEVER OR PAIN Albuterol/Ipratropium 1 amp 09/19/17 14:55 09/23/17 19:39 Duoneb - NEB 1 amp Q6H PRN Administration SHORTNESS OF BREATH Apixaban 2.5 mg 09/25/17 22:00 Eliquis - GT BID [facility] Chlorhexidine Gluconate 15 ml 09/08/17 12:30 09/25/17 10:48 Peridex - MM 15 ml BID [facility] Administration Ferrous Sulfate 325 mg 09/05/17 12:00 09/25/17 10:35 Feosol - PO 325 mg DAILY [facility] Administration Folic Acid 1 mg 09/02/17 10:00 09/25/17 10:35 Folic Acid - PO 1 mg DAILY [facility] Administration Cefazolin Sodium 50 mls @ 100 mls/hr 09/16/17 10:00 09/25/17 17:11 Ancef 1gm Ivpb (Pre-Docked) IVPB 100 mls/hr Q8H-IV [facility] Administration Propofol 100 mls @ 5.181 mls/hr 09/24/17 14:30 09/25/17 15:55 Diprivan - IVPB 40 mcg/kg/min TITR [facility] 20.725 mls/hr Protocol Administration 10 MCG/KG/MIN Metoprolol Tartrate 25 mg 09/25/17 13:45 09/25/17 16:03 Lopressor - NGT 25 mg BID [facility] Administration Multivitamins/Minerals 1 each 09/02/17 10:00 09/25/17 10:35 Theragran-M PO 1 each DAILY [facility] Administration Mupirocin 1 applic 09/23/17 10:00 09/25/17 10:55 Bactroban 2% Cream - TP 1 applic BID [facility] Administration Pantoprazole Sodium 40 mg 09/24/17 22:00 09/25/17 10:35 Protonix - PO 40 mg BID [facility] Administration Sevelamer Carbonate 800 mg 09/12/17 17:30 09/25/17 17:12 Renvela - PO 800 mg TIDCM [facility] Administration Thiamine HCl 100 mg 09/02/17 10:00 09/25/17 10:35 Vitamin B1 - PO 100 mg DAILY [facility] Administration Impression 1. ALEXANDRA 2. fluid overload 3. hypoalbuminemia 4. respiratory failure requiring intubation 5. anemia 6. etoh abuse 7. fevers 8. hypokalemia 9. pleural effusion 10. hypernatremia 11. GI bleed Plan - renal function continues to worsen - cont vent support - may need HD if he does not improve - ngt with free water to correct hypernatremia - monitor urine output - chest tube care - monitor pulse ox - keep pt in ICU - will follow Dr Peres
[2017-09-25] MEDS: APIXABAN 2.5 MG TABLET GT SCH (21:34)
[2017-09-26] MEDS: CEFAZOLIN (PRE-DOCKED) 50 ML IVPB SCH ×3 (01:24→18:21)
[2017-09-26 06:42] LABS: BASOPHIL 0.7 % (0-2.0); EOSINOPHIL 5.1 % (0-4.5); MEAN CELL VOLUME 88.3 fl (80-96); MEAN PLT VOLUME 7.6 fl (7.5-11.1); NEUTROPHILS 72.5 % (42.8-82.8); PLATELET COUNT 211 K/MM3 (134-434); RDW 16.8 % (11.9-15.9)
[2017-09-26 06:52] LABS: INR 1.12 (0.82-1.09); PROTHROMBIN TIME (PATIENT) 12.6 SEC (9.98-11.88)
[2017-09-26 07:20] LABS: ALBUMIN 1.7 g/dl (3.4-5.0); ANION GAP 15 (8-16); CALCIUM 7.7 mg/dL (8.5-10.1); CO2 20 mmol/L (21-32); GLUCOSE,RANDOM 118 mg/dL (74-106); MAGNESIUM 1.9 mg/dL (1.8-2.4)
[2017-09-26 07:25] LABS: ALK PHOS 220 U/L (45-117); BILIRUBIN,TOTAL 0.5 mg/dL (0.2-1.0); CREATININE 4.8 mg/dL (0.7-1.3); SGOT/AST 93 U/L (15-37); SGPT/ALT 9 U/L (12-78); TOT PROT 7.1 g/dl (6.4-8.2)
--- NOTE | 2017-09-26 08:09 | PN ---
Physical Exam: 24H events: yesterday - started on Eliquis SUBJECTIVE: Patient seen and examined in ICU. Ventilated on AC mode FiO2 40%, sedated on propofol gtt. OBJECTIVE: Vital Signs Period Temp Pulse Resp BP Sys/Jeff Pulse Ox Last 24 Hr 98.6 F-100.2 F 93-134 16-31 87-149/57-84 100-100 Intake & Output 09/23/17 09/24/17 09/25/17 09/26/17 23:59 23:59 23:59 23:59 Intake Total 1541 149 0216 1642.8 Output Total 2035 805 910 870 Balance -944 -635 990 772.8 Weight 87.5 kg 86.353 kg 81.42 kg 81.556 kg ENERAL: intubated, awake, following verbal commands ENT: OGT, moist mucous membranes LUNGS: mechanical breath sounds, abdominal breathing HEART: tachycardiac, regular rate, normal S1/S2 ABDOMEN: Soft, non-distended, non-tender, normoactive bowel sounds EXTREMITIES: 2+ UE edema, 2+ LE edema, R anterior norris pustular dermatitis unchanged : hines CBC, BMP 09/26/17 14:15 09/26/17 06:10 Hepatic Panel Direct Bilirubin 1.8 mg/dL (0.0-0.2) H D 09/09/17 05:00 Total Bilirubin 0.5 mg/dL (0.2-1.0) 09/26/17 06:10 AST 93 U/L (15-37) H 09/26/17 06:10 ALT 9 U/L (12-78) L D 09/26/17 06:10 Alkaline Phosphatase 220 U/L (45-117) H 09/26/17 06:10 Albumin 1.7 g/dl (3.4-5.0) L 09/26/17 06:10 Ca- 7.7 Phos -5 Mg - 1.9 Active Medications Acetaminophen (Tylenol -) 650 mg NR Q6H PRN PRN Reason: FEVER OR PAIN Last Admin: 09/16/17 18:27 Dose: 650 mg Albuterol/Ipratropium (Duoneb -) 1 amp NEB Q6H PRN PRN Reason: SHORTNESS OF BREATH Last Admin: 09/23/17 19:39 Dose: 1 amp Apixaban (Eliquis -) 2.5 mg GT BID [facility] Last Admin: 09/26/17 11:02 Dose: 2.5 mg Chlorhexidine Gluconate (Peridex -) 15 ml MM BID [facility] [place] Last Admin: 09/26/17 11:01 Dose: 15 ml Ferrous Sulfate (Feosol -) 325 mg PO DAILY [facility] Last Admin: 09/26/17 11:24 Dose: 325 mg Folic Acid (Folic Acid -) 1 mg PO DAILY [facility] [place] Last Admin: 09/26/17 11:01 Dose: 1 mg Cefazolin Sodium (Ancef 1gm Ivpb (Pre-Docked)) 50 mls @ 100 mls/hr IVPB Q8H-IV [facility] [place] Last Admin: 09/26/17 11:00 Dose: 100 mls/hr Propofol (Diprivan -) 100 mls @ 5.181 mls/hr IVPB TITR [facility]; 10 MCG/KG/MIN PRN Reason: Protocol Last Titration: 09/26/17 10:00 Dose: 0 mcg/kg/min, 0 mls/hr Metoprolol Tartrate (Lopressor -) 25 mg NGT BID [facility] [place] Last Admin: 09/26/17 11:01 Dose: 25 mg Multivitamins/Minerals (Theragran-M) 1 each PO DAILY [facility] [place] Last Admin: 09/26/17 10:59 Dose: 1 each Mupirocin (Bactroban 2% Cream -) 1 applic TP BID [facility] [place] Last Admin: 09/26/17 11:00 Dose: 1 applic Pantoprazole Sodium (Protonix -) 40 mg PO DAILY [facility] [place] Sevelamer Carbonate (Renvela -) 800 mg PO TIDCM [facility] [place] Last Admin: 09/26/17 10:00 Dose: 800 mg Thiamine HCl (Vitamin B1 -) 100 mg PO DAILY [facility] [place] Last Admin: 09/26/17 11:01 Dose: 100 mg ASSESSMENT/PLAN: 66yo man with PMH of EtOH abuse and HTN who is admitted (08/31) for acute hypoxic respiratory failure requiring mechanical ventilation (09/02 - 09/19) and sepsis, now resolving and off pressors. Persistent pulmonary infectious source of bilateral loculated PNA, and now with acute thoracic osteomyletitis (T9-T10) . Patient continues to have low grade fevers. Currently being treated with Cefazolin (started 09/16). MSSA bacteremia, now resolved cleared; ALISA (09/13) r/ o endocarditis. Serial blood cultures collected 09/08, 09/10, 09/12, 09/19, 09/22 NGTD. Sputum cultures grew yeast-like organism and patient treated with Diflucan. RLE pustules noted on anterior norris, now resolving, wound cultures normal skin north/no PMNs and s/p 3days acylovir for possible zoster (09/19-). #acute hypoxic respiratory failure -Vent mgmt per ICU tube -sedation holiday and SBT as tolerated -considering TPA through CT to improve drainage #sepsis 2/2 cavitary PNA, acute osteomyelitis -R chest tube draining to water seal -Continue Cefazolin 1gm Q8H (started 09/16), will need prolonged course due to acute osteomyelitis (6 wks) #GI bleed, likely 2/2 trauma from rectal tube, s/p 2Ux PRBCs, Hgb stable, no further bleeds -protonix 40mg NGT BID -Trend H&H, transfuse Hgb<7 #Afib - CHADVASC score of 2 indicating AC -Cardiology following -can consider PO amio for rate control (currently in NSR) -Eliquis 2.5mg NGT BID #suspected chronic diastolic heart failure - ECHO 09/02/2017 rprobable preserved LV function, but can't R/O regional wall motion abnormality -Metoprol 25mg NGT BID #ARF -Nephrology consulted -c3/c4 complement level wnl; PROSPER positive -Strict I&Os, hines -Renal dose for meds -Cont Ferrous Sulfate 325 mg PO DAILY [facility] -Cont Sevelamer Carbonate (Renvela) 800 mg PO TID #EtOH abuse -Monitor for signs of EtOH withdrawal -MVI, thiamine 100mg PO qd, folic acid 1mg PO daily #FEN -NGT 400cc free water flushes q4h -hyperPhos noted -Enteral feeds #PPX -Eliquis -GI - Pantoprazole 40mg NGT BID #Dispo: continue ICU monitoring FULL code d/w Dr. Akbar Salter MD PGY-1 Visit type - Emergency Visit Emergency Visit: No - New Patient This patient is new to me today: No - Critical Care Critical Care patient: Yes Total Critical Care Time (in minutes): 40 Critical Care Statement: The care of this patient involved high complexity decision making to prevent further life threatening deterioration of the patient 's condition and/or to evaluate & treat vital organ system(s) failure or risk of failure.
[2017-09-26] MEDS ORDERED: MAGNESIUM OXIDE 400 MG TABLET (FP) PO ONE ×2 (08:45→12:30)
[2017-09-26] MEDS: PROPOFOL 100 ML IVPB SCH (09:00)
[2017-09-26] MEDS: SEVELAMER CARBONATE 800 MG TAB (FP) PO SCH ×3 (10:00→18:22)
--- NOTE | 2017-09-26 10:02 | PN ---
Progress Note, Physician History of Present Illness: Awake on vent, tele shows SR with PAC. - Current Medication List Current Medications: Active Medications Acetaminophen (Tylenol -) 650 mg NR Q6H PRN PRN Reason: FEVER OR PAIN Last Admin: 09/16/17 18:27 Dose: 650 mg Albuterol/Ipratropium (Duoneb -) 1 amp NEB Q6H PRN PRN Reason: SHORTNESS OF BREATH Last Admin: 09/23/17 19:39 Dose: 1 amp Apixaban (Eliquis -) 2.5 mg GT BID [facility] Last Admin: 09/25/17 21:34 Dose: 2.5 mg Chlorhexidine Gluconate (Peridex -) 15 ml MM BID [facility] Last Admin: 09/25/17 21:34 Dose: 15 ml Ferrous Sulfate (Feosol -) 325 mg PO DAILY [facility] Last Admin: 09/25/17 10:35 Dose: 325 mg Folic Acid (Folic Acid -) 1 mg PO DAILY [facility] Last Admin: 09/25/17 10:35 Dose: 1 mg Cefazolin Sodium (Ancef 1gm Ivpb (Pre-Docked)) 50 mls @ 100 mls/hr IVPB Q8H-IV [facility] Last Admin: 09/26/17 01:24 Dose: 100 mls/hr Propofol (Diprivan -) 100 mls @ 5.181 mls/hr IVPB TITR [facility]; 10 MCG/KG/MIN PRN Reason: Protocol Last Admin: 09/25/17 15:55 Dose: 40 mcg/kg/min, 20.725 mls/hr Metoprolol Tartrate (Lopressor -) 25 mg NGT BID [facility] Last Admin: 09/25/17 21:34 Dose: 25 mg Multivitamins/Minerals (Theragran-M) 1 each PO DAILY [facility] Last Admin: 09/25/17 10:35 Dose: 1 each Mupirocin (Bactroban 2% Cream -) 1 applic TP BID [facility] Last Admin: 09/25/17 21:36 Dose: 1 applic Pantoprazole Sodium (Protonix -) 40 mg PO BID [facility] Last Admin: 09/25/17 21:34 Dose: 40 mg Sevelamer Carbonate (Renvela -) 800 mg PO TIDCM [facility] Last Admin: 09/25/17 17:12 Dose: 800 mg Thiamine HCl (Vitamin B1 -) 100 mg PO DAILY [facility] Last Admin: 09/25/17 10:35 Dose: 100 mg - Objective Vital Signs: Vital Signs Temperature 98.8 F 09/26/17 06:00 Pulse Rate 98 H 09/26/17 08:00 Respiratory Rate 22 09/26/17 08:07 Blood Pressure 87/57 09/26/17 08:00 O2 Sat by Pulse Oximetry (%) 100 09/26/17 08:07 Constitutional: Yes: No Distress, Calm Neck: Yes: Supple Cardiovascular: Yes: Regular Rate and Rhythm Respiratory: Yes: Regular, Diminished, Intubated, Mechanically Ventilated, Other (Chest tube in situ) Gastrointestinal: Yes: Normal Bowel Sounds, Soft Edema: Yes Edema: LLE: Trace, RLE: Trace Labs: CBC, BMP 09/26/17 06:10 09/26/17 06:10 INR, PTT INR 1.12 (0.82-1.09) 09/26/17 06:10 - ....Imaging Chest X-ray: Report Reviewed (Right loculated effusion) EKG: Report Reviewed (Tele: SR with PAC) Problem List - Problems (1) Respiratory failure with hypoxia Code(s): J96.91 - RESPIRATORY FAILURE, UNSPECIFIED WITH HYPOXIA Qualifiers: Chronicity: acute Qualified Code(s): J96.01 - Acute respiratory failure with hypoxia (2) Pneumonia Code(s): J18.9 - PNEUMONIA, UNSPECIFIED ORGANISM Qualifiers: Pneumonia type: aspiration pneumonia (3) Staphylococcus aureus bacteremia Code(s): R78.81 - BACTEREMIA (5) History of alcohol abuse Code(s): Z87.898 - PERSONAL HISTORY OF OTHER SPECIFIED CONDITIONS (6) Acute kidney injury Code(s): N17.9 - ACUTE KIDNEY FAILURE, UNSPECIFIED (7) Acute diastolic heart failure Code(s): I50.31 - ACUTE DIASTOLIC (CONGESTIVE) HEART FAILURE (8) Anemia Code(s): D64.9 - ANEMIA, UNSPECIFIED Qualifiers: Anemia type: unspecified type Qualified Code(s): D64.9 - Anemia, unspecified (9) Discitis of cervicothoracic region Code(s): M46.43 - DISCITIS, UNSPECIFIED, CERVICOTHORACIC REGION (10) Paroxysmal atrial fibrillation Code(s): I48.0 - PAROXYSMAL ATRIAL FIBRILLATION (11) Hypernatremia Code(s): E87.0 - HYPEROSMOLALITY AND HYPERNATREMIA (12) Rectal ulcer Code(s): K62.6 - ULCER OF ANUS AND RECTUM Assessment/Plan 1. Paroxysmal atrial fibrillation [id number] score of 2, currently in sinus rhythm off of Heparin drip 2. Acute hypoxic respiratory failure, on BiPAP, pulmonary infiltrates/pulmonary edema improving 3. Cavitating pneumonia, MSSA bacteremia, post septic shock no evidence of endocarditis by ALISA criteria 4. Diastolic LV dysfunction with class I-II NYHA congestive heart failure, volume overload, resolved 5. Osteomyelitis T9-T10 discitis 6. Loculated effusion post chest tube, tube chest tube obstruction 7. History of alcohol dependence 8. Acute renal insufficiency 9. Hypernatremia 10. Anemia PLAN: 1. BD as needed, wean FIO2 as tolerated, enteral feeds with free water repletion 2. Complete abx course per ID service 3. DVT and GI prophylaxis 4. Continue Lopressor 25 bid 5. Remains on Eliquis 2.5 bid (Cr 4.2) as hematochezia was due to rectal tube trauma, transfuse to maintain Hgb>8.0 6. Continue management as per critical care team. Thrombolytics through chest tube.
--- NOTE | 2017-09-26 10:43 | PN ---
Progress Note, Physician History of Present Illness: Intubated in ICU Awake and alert Afebrile WBC 11 - Current Medication List Current Medications: Active Medications Acetaminophen (Tylenol -) 650 mg NR Q6H PRN PRN Reason: FEVER OR PAIN Last Admin: 09/16/17 18:27 Dose: 650 mg Albuterol/Ipratropium (Duoneb -) 1 amp NEB Q6H PRN PRN Reason: SHORTNESS OF BREATH Last Admin: 09/23/17 19:39 Dose: 1 amp Apixaban (Eliquis -) 2.5 mg GT BID [facility] Last Admin: 09/25/17 21:34 Dose: 2.5 mg Chlorhexidine Gluconate (Peridex -) 15 ml MM BID [facility] Last Admin: 09/25/17 21:34 Dose: 15 ml Ferrous Sulfate (Feosol -) 325 mg PO DAILY [facility] Last Admin: 09/25/17 10:35 Dose: 325 mg Folic Acid (Folic Acid -) 1 mg PO DAILY [facility] Last Admin: 09/25/17 10:35 Dose: 1 mg Cefazolin Sodium (Ancef 1gm Ivpb (Pre-Docked)) 50 mls @ 100 mls/hr IVPB Q8H-IV [facility] Last Admin: 09/26/17 01:24 Dose: 100 mls/hr Propofol (Diprivan -) 100 mls @ 5.181 mls/hr IVPB TITR [facility]; 10 MCG/KG/MIN PRN Reason: Protocol Last Admin: 09/25/17 15:55 Dose: 40 mcg/kg/min, 20.725 mls/hr Metoprolol Tartrate (Lopressor -) 25 mg NGT BID [facility] Last Admin: 09/25/17 21:34 Dose: 25 mg Multivitamins/Minerals (Theragran-M) 1 each PO DAILY [facility] Last Admin: 09/25/17 10:35 Dose: 1 each Mupirocin (Bactroban 2% Cream -) 1 applic TP BID [facility] Last Admin: 09/25/17 21:36 Dose: 1 applic Pantoprazole Sodium (Protonix -) 40 mg PO BID [facility] Last Admin: 09/25/17 21:34 Dose: 40 mg Sevelamer Carbonate (Renvela -) 800 mg PO TIDCM [facility] Last Admin: 09/25/17 17:12 Dose: 800 mg Thiamine HCl (Vitamin B1 -) 100 mg PO DAILY [facility] Last Admin: 09/25/17 10:35 Dose: 100 mg - Objective Vital Signs: Vital Signs Temperature 98.8 F 09/26/17 06:00 Pulse Rate 98 H 09/26/17 08:00 Respiratory Rate 22 09/26/17 08:07 Blood Pressure 87/57 09/26/17 08:00 O2 Sat by Pulse Oximetry (%) 100 09/26/17 08:07 Constitutional: Yes: Other (intubated) Eyes: Yes: Conjunctiva Clear Cardiovascular: Yes: Regular Rate and Rhythm, S1, S2 Respiratory: Yes: Mechanically Ventilated Gastrointestinal: Yes: Normal Bowel Sounds, Soft. No: Tenderness Edema: Yes Edema: LUE: 1+, RUE: 1+, LLE: 1+, RLE: 1+ Labs: CBC, BMP 09/26/17 06:10 09/26/17 06:10 INR, PTT INR 1.12 (0.82-1.09) 09/26/17 06:10 Assessment/Plan MSSA bacteremia, likely skin source Vertebral osteo T9T10 Resp failure Possible aspiration pneumonia Hx ETOH abuse Continue cefazolin Ventilatory support Will need care home (6-8w) anti- staph treatment
[2017-09-26] MEDS: MULTIVITAMINS THER W-MINERALS COMBO TABLET (FP) PO SCH (10:59)
[2017-09-26] MEDS: MUPIROCIN CA 2% TOPICAL CREAM 15 GM TUBE TP SCH ×2 (11:00→21:10)
[2017-09-26] MEDS: CHLORHEXIDINE GLUCONATE 0.12% 15ML CUP MM SCH ×2 (11:01→21:09)
[2017-09-26] MEDS: PANTOPRAZOLE 40 MG TABLET (FP) PO SCH (11:01)
[2017-09-26] MEDS: THIAMINE HCL 100 MG TABLET (FP) PO SCH (11:01)
[2017-09-26] MEDS: METOPROLOL TARTRATE 25 MG TABLET (FP) NGT SCH ×2 (11:01→21:08)
[2017-09-26] MEDS: FOLIC ACID 1 MG TABLET (FP) PO SCH (11:01)
[2017-09-26] MEDS: APIXABAN 2.5 MG TABLET GT SCH ×2 (11:02→21:08)
[2017-09-26] MEDS: FERROUS SO4 325 MG TABLET (FP) PO SCH (11:24)
--- NOTE | 2017-09-26 11:50 | PN ---
Progress Note, Physician History of Present Illness: No external signs of bleeding. Hbg 7.1. Extubated. Awake and alert - Current Medication List Current Medications: Active Medications Acetaminophen (Tylenol -) 650 mg NR Q6H PRN PRN Reason: FEVER OR PAIN Last Admin: 09/16/17 18:27 Dose: 650 mg Albuterol/Ipratropium (Duoneb -) 1 amp NEB Q6H PRN PRN Reason: SHORTNESS OF BREATH Last Admin: 09/23/17 19:39 Dose: 1 amp Apixaban (Eliquis -) 2.5 mg GT BID [facility] Last Admin: 09/26/17 11:02 Dose: 2.5 mg Chlorhexidine Gluconate (Peridex -) 15 ml MM BID [facility] Last Admin: 09/26/17 11:01 Dose: 15 ml Ferrous Sulfate (Feosol -) 325 mg PO DAILY [facility] Last Admin: 09/26/17 11:24 Dose: 325 mg Folic Acid (Folic Acid -) 1 mg PO DAILY [facility] Last Admin: 09/26/17 11:01 Dose: 1 mg Cefazolin Sodium (Ancef 1gm Ivpb (Pre-Docked)) 50 mls @ 100 mls/hr IVPB Q8H-IV [facility] Last Admin: 09/26/17 11:00 Dose: 100 mls/hr Propofol (Diprivan -) 100 mls @ 5.181 mls/hr IVPB TITR [facility]; 10 MCG/KG/MIN PRN Reason: Protocol Last Admin: 09/25/17 15:55 Dose: 40 mcg/kg/min, 20.725 mls/hr Magnesium Oxide (Mag-Ox -) 400 mg PO ONCE ONE Stop: 09/26/17 12:31 Metoprolol Tartrate (Lopressor -) 25 mg NGT BID [facility] Last Admin: 09/26/17 11:01 Dose: 25 mg Multivitamins/Minerals (Theragran-M) 1 each PO DAILY [facility] Last Admin: 09/26/17 10:59 Dose: 1 each Mupirocin (Bactroban 2% Cream -) 1 applic TP BID [facility] Last Admin: 09/26/17 11:00 Dose: 1 applic Pantoprazole Sodium (Protonix -) 40 mg PO BID [facility] Last Admin: 09/26/17 11:01 Dose: 40 mg Sevelamer Carbonate (Renvela -) 800 mg PO TIDCM [facility] Last Admin: 09/26/17 10:00 Dose: 800 mg Thiamine HCl (Vitamin B1 -) 100 mg PO DAILY [facility] Last Admin: 09/26/17 11:01 Dose: 100 mg - Objective Vital Signs: Vital Signs Temperature 98.2 F 09/26/17 10:00 Pulse Rate 102 H 09/26/17 10:00 Respiratory Rate 18 09/26/17 11:40 Blood Pressure 150/50 09/26/17 10:00 O2 Sat by Pulse Oximetry (%) 100 09/26/17 09:00 Constitutional: Yes: No Distress, Calm Gastrointestinal: Yes: Soft. No: Rectal Bleeding, Tenderness Labs: CBC, BMP 09/26/17 06:10 09/26/17 06:10 INR, PTT INR 1.12 (0.82-1.09) 09/26/17 06:10 Problem List - Problems (1) Respiratory failure with hypoxia Code(s): J96.91 - RESPIRATORY FAILURE, UNSPECIFIED WITH HYPOXIA Qualifiers: Chronicity: acute Qualified Code(s): J96.01 - Acute respiratory failure with hypoxia (2) Staphylococcus aureus bacteremia Code(s): R78.81 - BACTEREMIA (3) History of alcohol abuse Code(s): Z87.898 - PERSONAL HISTORY OF OTHER SPECIFIED CONDITIONS (4) Gastric ulcer Code(s): K25.9 - GASTRIC ULCER, UNSP ACUTE OR CHRONIC, W/O HEMOR OR PERF (5) Rectal bleeding Code(s): K62.5 - HEMORRHAGE OF ANUS AND RECTUM Assessment/Plan BRBPR resolved. Hgb fluctuating between 8-7 g/dl for the last 7+ days Monitor Hgb Close monitoring as per ICU protocols. Will follow PRN
--- NOTE | 2017-09-26 13:20 | PN ---
Teaching Attending Note Name of Resident: Lydia Salter ATTENDING PHYSICIAN STATEMENT Time of evaluation: 9:00 AM I saw and evaluated the patient. I reviewed the resident's note and discussed the case with the resident. I agree with the resident's findings and plan as documented. SUBJECTIVE: patient seen and examined. intubated but awake, unable to do ROS. OBJECTIVE: Vital Signs Period Temp Pulse Resp BP Sys/Jeff Pulse Ox Last 24 Hr 98.2 F-100.2 F 93-119 13-28 87-150/50-84 100-100 Intake & Output 09/23/17 09/24/17 09/25/17 09/26/17 23:59 23:59 23:59 23:59 Intake Total 9856 517 6460 1642.8 Output Total 2035 805 910 420 Balance -944 -712 846 9886.8 Weight 192 lb 14.472 oz 190 lb 6 oz 179 lb 8 oz 179 lb 12.8 oz General: intubated, awake in bed, looks more comfortable today CVS: S1S2 regular rapid Chest occasional rhonchi, limited exam Abdomen soft, obese, Non tender, positive bowel sounds extremities - anasarca mildly worse today than yesterday, RLE lesions with some improvement Neuro Awake, follows simple commands, facial symmetry, further exam limited Home Medication List Medication Instructions Recorded Confirmed Type Unobtainable [Unobtainable] 08/31/17 08/31/17 History Active Medications Generic Name Dose Route Start Last Admin Trade Name Freq PRN Reason Stop Dose Admin Acetaminophen 650 mg 09/07/17 05:53 09/16/17 18:27 Tylenol - NR 650 mg Q6H PRN Administration FEVER OR PAIN Albuterol/Ipratropium 1 amp 09/19/17 14:55 09/23/17 19:39 Duoneb - NEB 1 amp Q6H PRN Administration SHORTNESS OF BREATH Apixaban 2.5 mg 09/25/17 22:00 09/26/17 11:02 Eliquis - GT 2.5 mg BID [facility] Administration Chlorhexidine Gluconate 15 ml 09/08/17 12:30 09/26/17 11:01 Peridex - MM 15 ml BID [facility] Administration Ferrous Sulfate 325 mg 09/05/17 12:00 09/26/17 11:24 Feosol - PO 325 mg DAILY [facility] Administration Folic Acid 1 mg 09/02/17 10:00 09/26/17 11:01 Folic Acid - PO 1 mg DAILY [facility] Administration Cefazolin Sodium 50 mls @ 100 mls/hr 09/16/17 10:00 09/26/17 11:00 Ancef 1gm Ivpb (Pre-Docked) IVPB 100 mls/hr Q8H-IV [facility] Administration Propofol 100 mls @ 5.181 mls/hr 09/24/17 14:30 09/26/17 10:00 Diprivan - IVPB 0 mcg/kg/min TITR [facility] 0 mls/hr Protocol Titration 10 MCG/KG/MIN Metoprolol Tartrate 25 mg 09/25/17 13:45 09/26/17 11:01 Lopressor - NGT 25 mg BID [facility] Administration Multivitamins/Minerals 1 each 09/02/17 10:00 09/26/17 10:59 Theragran-M PO 1 each DAILY [facility] Administration Mupirocin 1 applic 09/23/17 10:00 09/26/17 11:00 Bactroban 2% Cream - TP 1 applic BID [facility] Administration Pantoprazole Sodium 40 mg 09/24/17 22:00 09/26/17 11:01 Protonix - PO 40 mg BID [facility] Administration Sevelamer Carbonate 800 mg 09/12/17 17:30 09/26/17 10:00 Renvela - PO 800 mg TIDCM [facility] Administration Thiamine HCl 100 mg 09/02/17 10:00 09/26/17 11:01 Vitamin B1 - PO 100 mg DAILY [facility] Administration Laboratory Results - last 24 hr 09/26/17 09/26/17 09/26/17 06:10 06:10 06:10 WBC 11.0 H RBC 2.36 L Hgb 7.1 L D Hct 20.8 L MCV 88.3 MCH 30.0 MCHC 34.0 RDW 16.8 H Plt Count 211 MPV 7.6 Neutrophils % 72.5 Lymphocytes % 11.2 D Monocytes % 10.5 H Eosinophils % 5.1 H D Basophils % 0.7 PT with INR INR PTT (Actin FS) 30.3 Sodium 150 H Potassium 3.6 Chloride 115 H Carbon Dioxide 20 L Anion Gap 15 BUN 102 H Creatinine 4.8 H Creat Clearance w eGFR 12.16 Random Glucose 118 H Calcium 7.7 L Phosphorus 5.0 H Magnesium 1.9 Total Bilirubin 0.5 AST 93 H ALT 9 L D Alkaline Phosphatase 220 H Total Protein 7.1 Albumin 1.7 L 09/26/17 06:10 WBC RBC Hgb Hct MCV MCH MCHC RDW Plt Count MPV Neutrophils % Lymphocytes % Monocytes % Eosinophils % Basophils % PT with INR 12.60 H INR 1.12 PTT (Actin FS) Sodium Potassium Chloride Carbon Dioxide Anion Gap BUN Creatinine Creat Clearance w eGFR Random Glucose Calcium Phosphorus Magnesium Total Bilirubin AST ALT Alkaline Phosphatase Total Protein Albumin ASSESSMENT AND PLAN: -Acute hypoxic respiratory failure -Severe sepsis due to cavitary PNA, MSSA bacteremia, ALISA neg for vegetation -Large right loculated pleural effusion, s/p chest tube -Acute T9-T10 discitis/osteomyelitis -Hematochezia -ARF, from sepsis vs medication related -Acute on chronic anemia, suspect from renal dysfunction, episode of hematochezia suspected from rectal tube/heparin, resolved for now -AFib with RVR recurrent -Hypokalemia/hypomagnesemia -Hyperphosphatemia -Hypovolumic hypernatremia -Alcohol abuse -Normocytic anemia -Acute transaminitis -Chronic right subdural hematoma Plan: Vent support with SBT trials. Plan for tpa in chest tube, follow up with ICU. Cefazolin, ID input appreciated, atleast 6 weeks antibiotics with likely repeat imaging then, repeat blood cultures sent 09/22, follow up. No further hematochezia, off heparin drip, placed on low dose eliquis, discussed with ICU/DR. Cazares, will continue with monitoring for now. Hb ranging 7-8, suspect worsening renal function contributory as well, no further evidence of ongoing bleed. Discuss with renal and ICU addiitonal 1 unit PRBC to keep Hb > 8 Renal function gradually worsening,creatinine rising, failed fluid challenge. Na overall unchanged on NG feeds and free water flushes. May need HD, follow up with renal. On PO metoprolol. Currently with sinus tach, not afib. Replete lytes as needed. Trend LFTs Patient critical with ongoing multiorgan dsyfunction. total critical care time spent 40 min.
--- NOTE | 2017-09-26 14:16 | PN ---
Teaching Attending Note Name of Resident: Tejal Ortiz ATTENDING PHYSICIAN STATEMENT I saw and evaluated the patient. I reviewed the resident's note and discussed the case with the resident. I agree with the resident's findings and plan as documented. SUBJECTIVE: Pt seen and examined in the ICU. Remains intubated, awake. Tolerating CPAP/PS . Low grade temp overnight. OBJECTIVE: Last Vital Signs Temp Pulse Resp BP Pulse Ox 98.2 F 102 H 18 150/50 100 09/26/17 10:00 09/26/17 10:00 09/26/17 11:40 09/26/17 10:00 09/26/17 11:51 Intake & Output 09/23/17 09/24/17 09/25/17 09/26/17 23:59 23:59 23:59 23:59 Intake Total 2149 260 2903 1642.8 Output Total 2035 805 910 420 Balance -944 -552 248 5773.8 Weight 192 lb 14.472 oz 190 lb 6 oz 179 lb 8 oz 179 lb 12.8 oz Gen: intubated, awake Heart: tachycardic, regular Lung: scattered rhonchi right Abd: soft, nontender Ext: no edema Chest tube: minimal drainage, no air leak CBC, BMP 09/26/17 06:10 09/26/17 06:10 Active Medications Acetaminophen (Tylenol -) 650 mg NR Q6H PRN PRN Reason: FEVER OR PAIN Last Admin: 09/16/17 18:27 Dose: 650 mg Albuterol/Ipratropium (Duoneb -) 1 amp NEB Q6H PRN PRN Reason: SHORTNESS OF BREATH Last Admin: 09/23/17 19:39 Dose: 1 amp Apixaban (Eliquis -) 2.5 mg GT BID [facility] Last Admin: 09/26/17 11:02 Dose: 2.5 mg Chlorhexidine Gluconate (Peridex -) 15 ml MM BID [facility] Last Admin: 09/26/17 11:01 Dose: 15 ml Ferrous Sulfate (Feosol -) 325 mg PO DAILY [facility] Last Admin: 09/26/17 11:24 Dose: 325 mg Folic Acid (Folic Acid -) [address] [facility] Last Admin: 09/26/17 11:01 Dose: 1 mg Cefazolin Sodium (Ancef 1gm Ivpb (Pre-Docked)) 50 mls @ 100 mls/hr IVPB Q8H-IV [facility] Last Admin: 09/26/17 11:00 Dose: 100 mls/hr Propofol (Diprivan -) 100 mls @ 5.181 mls/hr IVPB TITR [facility]; 10 MCG/KG/MIN PRN Reason: Protocol Last Titration: 09/26/17 10:00 Dose: 0 mcg/kg/min, 0 mls/hr Metoprolol Tartrate (Lopressor -) [address] [facility] Last Admin: 09/26/17 11:01 Dose: 25 mg Multivitamins/Minerals (Theragran-M) [address] [facility] Last Admin: 09/26/17 10:59 Dose: 1 each Mupirocin (Bactroban 2% Cream -) [address] [facility] Last Admin: 09/26/17 11:00 Dose: 1 applic Pantoprazole Sodium (Protonix -) [address] [facility] Last Admin: 09/26/17 11:01 Dose: 40 mg Sevelamer Carbonate (Renvela -) [address] [facility] Last Admin: 09/26/17 10:00 Dose: 800 mg Thiamine HCl (Vitamin B1 -) [address] [facility] Last Admin: 09/26/17 11:01 Dose: 100 mg ASSESSMENT AND PLAN: Acute Hypoxic Respiratory Failure Pneumonia MSSA Bacteremia Loculated Pleural Effusions LV Diastolic Dysfunction Paroxysmal Atrial Fibrillation Acute Kidney Injury GI Bleed likely from rectal tube/ulcer Acute Blood Loss Anemia - continue antibiotics - hold heparin gtt - protonix - monitor H/H, coags - DNase not formulary, likely would not benefit from intrapleural tPA alone - will get thoracic surgery back on case - O2 to keep SpO2 >90% - enteral feeds - spontaneous breathing trials as tolerated - free water replacement - DVT prophylaxis - continue ICU monitoring critical care time spent in reviewing chart, evaluating patient and formulating plan 35 min
[2017-09-26 14:19] LABS: MCH 29.1 pg (25.7-33.7); MCHC 32.9 g/dl (32.0-35.9); MEAN CELL VOLUME 88.4 fl (80-96); PLATELET COUNT 211 K/MM3 (134-434); RDW 16.6 % (11.9-15.9); WHITE BLOOD COUNT 12.4 K/mm3 (4.0-10.0)
--- NOTE | 2017-09-26 16:52 | PN ---
Progress Note, Physician History of Present Illness: Pt seen and examined at bedside. He remains in the ICU. Pt remains intubated. - Current Medication List Current Medications: Active Medications Acetaminophen (Tylenol -) 650 mg NR Q6H PRN PRN Reason: FEVER OR PAIN Last Admin: 09/16/17 18:27 Dose: 650 mg Albuterol/Ipratropium (Duoneb -) 1 amp NEB Q6H PRN PRN Reason: SHORTNESS OF BREATH Last Admin: 09/23/17 19:39 Dose: 1 amp Apixaban (Eliquis -) 2.5 mg GT BID [facility] Last Admin: 09/26/17 11:02 Dose: 2.5 mg Chlorhexidine Gluconate (Peridex -) 15 ml MM BID [facility] Last Admin: 09/26/17 11:01 Dose: 15 ml Ferrous Sulfate (Feosol -) 325 mg PO DAILY [facility] Last Admin: 09/26/17 11:24 Dose: 325 mg Folic Acid (Folic Acid -) 1 mg PO DAILY [facility] Last Admin: 09/26/17 11:01 Dose: 1 mg Cefazolin Sodium (Ancef 1gm Ivpb (Pre-Docked)) 50 mls @ 100 mls/hr IVPB Q8H-IV [facility] Last Admin: 09/26/17 11:00 Dose: 100 mls/hr Propofol (Diprivan -) 100 mls @ 5.181 mls/hr IVPB TITR [facility]; 10 MCG/KG/MIN PRN Reason: Protocol Last Titration: 09/26/17 10:00 Dose: 0 mcg/kg/min, 0 mls/hr Metoprolol Tartrate (Lopressor -) 25 mg NGT BID [facility] Last Admin: 09/26/17 11:01 Dose: 25 mg Multivitamins/Minerals (Theragran-M) 1 each PO DAILY [facility] Last Admin: 09/26/17 10:59 Dose: 1 each Mupirocin (Bactroban 2% Cream -) 1 applic TP BID [facility] Last Admin: 09/26/17 11:00 Dose: 1 applic Pantoprazole Sodium (Protonix -) 40 mg PO BID [facility] Last Admin: 09/26/17 11:01 Dose: 40 mg Sevelamer Carbonate (Renvela -) 800 mg PO TIDCM [facility] Last Admin: 09/26/17 10:00 Dose: 800 mg Thiamine HCl (Vitamin B1 -) 100 mg PO DAILY [facility] Last Admin: 09/26/17 11:01 Dose: 100 mg - Objective Vital Signs: Vital Signs Temperature 98.6 F 09/26/17 15:29 Pulse Rate 102 H 09/26/17 10:00 Respiratory Rate 22 09/26/17 15:29 Blood Pressure 161/97 09/26/17 15:29 O2 Sat by Pulse Oximetry (%) 100 09/26/17 11:51 Constitutional: Yes: Calm Eyes: Yes: Conjunctiva Clear HENT: Yes: Atraumatic Cardiovascular: Yes: S1, S2 Respiratory: Yes: Mechanically Ventilated, Rhonchi, Other (chest tube) Gastrointestinal: Yes: Soft Genitourinary: Yes: Freeman Present Musculoskeletal: Yes: Muscle Weakness Edema: Yes Edema: LUE: 1+, RUE: 1+, LLE: 1+, RLE: 1+ Neurological: Yes: Other (awake) Labs: CBC, BMP 09/26/17 14:15 09/26/17 06:10 INR, PTT INR 1.12 (0.82-1.09) 09/26/17 06:10 - ....Imaging Chest X-ray: Report Reviewed Problem List - Problems (1) Abuse, drug or alcohol Code(s): F19.10 - OTHER PSYCHOACTIVE SUBSTANCE ABUSE, UNCOMPLICATED (2) Withdrawal symptoms, alcohol Code(s): F10.239 - ALCOHOL DEPENDENCE WITH WITHDRAWAL, UNSPECIFIED Qualifiers: Complication of substance-induced condition: uncomplicated Qualified Code(s ): F10.230 - Alcohol dependence with withdrawal, uncomplicated (3) Hyponatremia Code(s): E87.1 - HYPO-OSMOLALITY AND HYPONATREMIA (4) Respiratory failure with hypoxia Code(s): J96.91 - RESPIRATORY FAILURE, UNSPECIFIED WITH HYPOXIA Qualifiers: Chronicity: acute Qualified Code(s): J96.01 - Acute respiratory failure with hypoxia (5) Staphylococcus aureus bacteremia Code(s): R78.81 - BACTEREMIA (6) Acute kidney injury Code(s): N17.9 - ACUTE KIDNEY FAILURE, UNSPECIFIED (7) Anemia Code(s): D64.9 - ANEMIA, UNSPECIFIED Qualifiers: Anemia type: unspecified type Qualified Code(s): D64.9 - Anemia, unspecified Assessment/Plan Current Medications Generic Name Dose Route Start Last Admin Trade Name Ramo PRN Reason Stop Dose Admin Acetaminophen 650 mg 09/07/17 05:53 09/16/17 18:27 Tylenol - NR 650 mg Q6H PRN Administration FEVER OR PAIN Albuterol/Ipratropium 1 amp 09/19/17 14:55 09/23/17 19:39 Duoneb - NEB 1 amp Q6H PRN Administration SHORTNESS OF BREATH Apixaban 2.5 mg 09/25/17 22:00 09/26/17 11:02 Eliquis - GT 2.5 mg BID [facility] Administration Chlorhexidine Gluconate 15 ml 09/08/17 12:30 09/26/17 11:01 Peridex - MM 15 ml BID [facility] Administration Ferrous Sulfate 325 mg 09/05/17 12:00 09/26/17 11:24 Feosol - PO 325 mg DAILY [facility] Administration Folic Acid 1 mg 09/02/17 10:00 09/26/17 11:01 Folic Acid - PO 1 mg DAILY [facility] Administration Cefazolin Sodium 50 mls @ 100 mls/hr 09/16/17 10:00 09/26/17 11:00 Ancef 1gm Ivpb (Pre-Docked) IVPB 100 mls/hr Q8H-IV [facility] Administration Propofol 100 mls @ 5.181 mls/hr 09/24/17 14:30 09/26/17 10:00 Diprivan - IVPB 0 mcg/kg/min TITR [facility] 0 mls/hr Protocol Titration 10 MCG/KG/MIN Metoprolol Tartrate 25 mg 09/25/17 13:45 09/26/17 11:01 Lopressor - NGT 25 mg BID [facility] Administration Multivitamins/Minerals 1 each 09/02/17 10:00 09/26/17 10:59 Theragran-M PO 1 each DAILY [facility] Administration Mupirocin 1 applic 09/23/17 10:00 09/26/17 11:00 Bactroban 2% Cream - TP 1 applic BID [facility] Administration Pantoprazole Sodium 40 mg 09/24/17 22:00 09/26/17 11:01 Protonix - PO 40 mg BID [facility] Administration Sevelamer Carbonate 800 mg 09/12/17 17:30 09/26/17 10:00 Renvela - PO 800 mg TIDCM [facility] Administration Thiamine HCl 100 mg 09/02/17 10:00 09/26/17 11:01 Vitamin B1 - PO 100 mg DAILY [facility] Administration Laboratory Tests 09/13/17 09/22/17 11:39 14:30 Urine Protein 2+ H Urine Blood 2+ H Urine Eosinophils None seen Impression 1. ALEXANDRA 2. fluid overload 3. hypoalbuminemia 4. respiratory failure requiring intubation 5. anemia 6. etoh abuse 7. fevers 8. hypokalemia 9. pleural effusion 10. hypernatremia 11. GI bleed Plan - renal functio is worsening, will cont to monitor urine output - will follow and evaluate daily for HD - no objection to PRBC transfusion - can give lasix if he becomes hypoxic - cxr reviewed, repeat in am - cont feeds with free water - monitor sodium level - urine neg for eos - likely etiology of ALEXANDRA is ATN - chest tube care - monitor pulse ox - keep pt in ICU - will follow Dr Peres
--- NOTE | 2017-09-26 18:11 | PN ---
Physical Exam: SUBJECTIVE: Patient seen and examined remains intubated; on mech vent AC; FIO2 30%; PEEP 5; failed wean trial today. Drop in H/H, no obvious bleed. NA remains around 150. Creatinine continues to rise. Tube feeds. When off sedation patient seems to be oriented, able to moth his name and point to what he wants. OBJECTIVE: Vital Signs Period Temp Pulse Resp BP Sys/Jeff Pulse Ox Last 24 Hr 98.2 F-100.2 F 93-107 13-34 87-161/50-97 100-100 GENERAL: The patient is awake, alert, intubated. LUNGS: coarse breath sounds, scattered rhonchi HEART: Regular rate and rhythm, S1, S2 without murmur, rub or gallop. ABDOMEN: obese, Soft, nontender, nondistended, normoactive bowel sounds, no guarding, no rebound, no hepatosplenomegaly, no masses. EXTREMITIES: 2+ pulses, warm, well-perfused, no edema. 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, SKIN: RLE pustules on anterior aspect below the knee, area of about 2x3 cm ; no surrounding swelling or erythema, Laboratory Results - last 24 hr 09/23/17 09/26/17 09/26/17 15:00 06:10 06:10 WBC 11.0 H RBC 2.36 L Hgb 7.1 L D Hct 20.8 L MCV 88.3 MCH 30.0 MCHC 34.0 RDW 16.8 H Plt Count 211 MPV 7.6 Neutrophils % 72.5 Lymphocytes % 11.2 D Monocytes % 10.5 H Eosinophils % 5.1 H D Basophils % 0.7 PT with INR INR PTT (Actin FS) 30.3 Sodium Potassium Chloride Carbon Dioxide Anion Gap BUN Creatinine Creat Clearance w eGFR Random Glucose Calcium Phosphorus Magnesium Total Bilirubin AST ALT Alkaline Phosphatase Total Protein Albumin Blood Type O NEGATIVE Antibody Screen Negative Crossmatch See Detail 09/26/17 09/26/17 09/26/17 06:10 06:10 14:15 WBC 12.4 H RBC 2.72 L Hgb 7.9 L D Hct 24.1 L D MCV 88.4 MCH 29.1 MCHC 32.9 RDW 16.6 H Plt Count 211 MPV 7.0 L Neutrophils % Lymphocytes % Monocytes % Eosinophils % Basophils % PT with INR 12.60 H INR 1.12 PTT (Actin FS) Sodium 150 H Potassium 3.6 Chloride 115 H Carbon Dioxide 20 L Anion Gap 15 BUN 102 H Creatinine 4.8 H Creat Clearance w eGFR 12.16 Random Glucose 118 H Calcium 7.7 L Phosphorus 5.0 H Magnesium 1.9 Total Bilirubin 0.5 AST 93 H ALT 9 L D Alkaline Phosphatase 220 H Total Protein 7.1 Albumin 1.7 L Blood Type Antibody Screen Crossmatch 09/26/17 14:18 WBC RBC Hgb Hct MCV MCH MCHC RDW Plt Count MPV Neutrophils % Lymphocytes % Monocytes % Eosinophils % Basophils % PT with INR INR PTT (Actin FS) Sodium Potassium Chloride Carbon Dioxide Anion Gap BUN Creatinine Creat Clearance w eGFR Random Glucose Calcium Phosphorus Magnesium Total Bilirubin AST ALT Alkaline Phosphatase Total Protein Albumin Blood Type O NEGATIVE Antibody Screen Negative Crossmatch Active Medications Generic Name Dose Route Start Last Admin Trade Name Freq PRN Reason Stop Dose Admin Acetaminophen 650 mg 09/07/17 05:53 09/16/17 18:27 Tylenol - NR 650 mg Q6H PRN Administration FEVER OR PAIN Albuterol/Ipratropium 1 amp 09/19/17 14:55 09/23/17 19:39 Duoneb - NEB 1 amp Q6H PRN Administration SHORTNESS OF BREATH Apixaban 2.5 mg 09/25/17 22:00 09/26/17 11:02 Eliquis - GT 2.5 mg BID [facility] Administration Chlorhexidine Gluconate 15 ml 09/08/17 12:30 09/26/17 11:01 Peridex - MM 15 ml BID [facility] Administration Ferrous Sulfate 325 mg 09/05/17 12:00 09/26/17 11:24 Feosol - PO 325 mg DAILY [facility] Administration Folic Acid 1 mg 09/02/17 10:00 09/26/17 11:01 Folic Acid - PO 1 mg DAILY [facility] Administration Cefazolin Sodium 50 mls @ 100 mls/hr 09/16/17 10:00 09/26/17 11:00 Ancef 1gm Ivpb (Pre-Docked) IVPB 100 mls/hr Q8H-IV [facility] Administration Propofol 100 mls @ 5.181 mls/hr 09/24/17 14:30 09/26/17 10:00 Diprivan - IVPB 0 mcg/kg/min TITR [facility] 0 mls/hr Protocol Titration 10 MCG/KG/MIN Metoprolol Tartrate 25 mg 09/25/17 13:45 09/26/17 11:01 Lopressor - NGT 25 mg BID [facility] Administration Multivitamins/Minerals 1 each 09/02/17 10:00 09/26/17 10:59 Theragran-M PO 1 each DAILY [facility] Administration Mupirocin 1 applic 09/23/17 10:00 09/26/17 11:00 Bactroban 2% Cream - TP 1 applic BID [facility] Administration Pantoprazole Sodium 40 mg 09/27/17 10:00 Protonix - PO DAILY [facility] Sevelamer Carbonate 800 mg 09/12/17 17:30 09/26/17 10:00 Renvela - PO 800 mg TIDCM [facility] Administration Thiamine HCl 100 mg 09/02/17 10:00 09/26/17 11:01 Vitamin B1 - PO 100 mg DAILY [facility] Administration ASSESSMENT/PLAN: This is a 67 year old male with a past medical history of alcohol dependance, hypertension, admitted for acute hypoxic respiratory failure, found to be septic shock secondary to bilateral loculated PNA. Initially with +MSSA bacteremia, treated with cefazolin, now blood cultures negative. Also found to have T9-10 osteomyletis. #nuero: awake when off sedation; mental capacity not fully able to assess; can say name ; follow simple commands #pulmonary: -acute hypoxic respiratory failure sec to loculated pleural effusion -with chest tube; not draining; tpa considered , although dnase is not available in pharmacy; will reconsult thoracic surgery for [facility] as tolerated; failed today -Chest PT -duonebs prn -tpa #cardiovascular: - Diastolic LV dysfunction with class I-II NYHA congestive heart failure, volume overload, resolved; prn lasix -paroxysmal atrail fibrillation started on eliquis 2.5 mg po bid; chadsvasc2 score 2 #renal: -Acute kidney injury;initially from septic shock; -full renal work up negative -not on IVF -monitor creatinine for possible HD -appreciate renal #gastro: -GI bleed sec to rectal tube ulceration; stable -drop in h/h this am; repeat cbc heme improved -GI prophylaxis daily #ID: -sepsis sec to cavitary PNA -osteomyelitis -cont IV antibiotics; 6-8wks -appreciate ID #hypernatremia: -free water replacement -monitor bmp #hyperphoshatemia: -sec to renal insuff -cont sevelamir #Diet: tube feeds #DVT/GI prph: on eliquis and protonix Disposition: icu monitoring Problem List - Problems (1) Hyponatremia Code(s): E87.1 - HYPO-OSMOLALITY AND HYPONATREMIA (2) Hypokalemia Code(s): E87.6 - HYPOKALEMIA (3) Respiratory failure with hypoxia Code(s): J96.91 - RESPIRATORY FAILURE, UNSPECIFIED WITH HYPOXIA Qualifiers: Chronicity: acute Qualified Code(s): J96.01 - Acute respiratory failure with hypoxia (4) Pneumonia Code(s): J18.9 - PNEUMONIA, UNSPECIFIED ORGANISM Qualifiers: Pneumonia type: aspiration pneumonia (5) Staphylococcus aureus bacteremia Code(s): R78.81 - BACTEREMIA (7) Endocarditis due to Staphylococcus Code(s): I33.0 - ACUTE AND SUBACUTE INFECTIVE ENDOCARDITIS; B95.8 - UNSP STAPHYLOCOCCUS THE CAUSE OF DISEASES CLASSD [id number] (8) History of alcohol abuse Code(s): Z87.898 - PERSONAL HISTORY OF OTHER SPECIFIED CONDITIONS Visit type - Emergency Visit Emergency Visit: Yes ED Registration Date: 08/31/17 Care time: The patient presented to the Emergency Department on the above date and was hospitalized for further evaluation of their emergent condition. - New Patient This patient is new to me today: No - Critical Care Critical Care patient: Yes Total Critical Care Time (in minutes): 35 Critical Care Statement: The care of this patient involved high complexity decision making to prevent further life threatening deterioration of the patient 's condition and/or to evaluate & treat vital organ system(s) failure or risk of failure.
[2017-09-27] MEDS: CEFAZOLIN (PRE-DOCKED) 50 ML IVPB SCH ×3 (01:30→18:14)
[2017-09-27 06:07] LABS: MCH 29.9 pg (25.7-33.7); MCHC 34.4 g/dl (32.0-35.9); MEAN CELL VOLUME 86.9 fl (80-96); MEAN PLT VOLUME 7.5 fl (7.5-11.1); PLATELET COUNT 206 K/MM3 (134-434); RDW 16.6 % (11.9-15.9); WHITE BLOOD COUNT 12.3 K/mm3 (4.0-10.0)
[2017-09-27 06:30] LABS: ALBUMIN 1.6 g/dl (3.4-5.0); ANION GAP 11 (8-16); CALCIUM 7.5 mg/dL (8.5-10.1); CO2 21 mmol/L (21-32); GLUCOSE,RANDOM 119 mg/dL (74-106); PHOSPHOROUS 4.3 mg/dL (2.5-4.9); SGOT/AST 57 U/L (15-37); SGPT/ALT 8 U/L (12-78)
[2017-09-27 06:31] LABS: ALK PHOS 175 U/L (45-117); BILIRUBIN,TOTAL 0.5 mg/dL (0.2-1.0)
--- NOTE | 2017-09-27 07:54 | PN ---
Physical Exam: 24H Events: yesterday - transfused 1U PRBC AM - sedation turned off for SBT SUBJECTIVE: Patient seen and examined in ICU. Intubated, awake, shakes head no when asked if in pain OBJECTIVE: Vital Signs Period Temp Pulse Resp BP Sys/Jeff Pulse Ox Last 24 Hr 98.2 F-100.3 F 84-110 13-34 87-169/50-98 100-100 Intake & Output 09/24/17 09/25/17 09/26/17 09/27/17 23:59 23:59 23:59 23:59 Intake Total 170 1900 2104.8 1580 Output Total 263 337 3785 675 Balance -635 990 834.8 905 Weight 86.353 kg 81.42 kg 81.556 kg 85.548 kg GENERAL: intubated, awake, following verbal commands ENT: OGT, moist mucous membranes LUNGS: mechanical breath sounds, abdominal breathing HEART: tachycardiac, regular rate, normal S1/S2 ABDOMEN: Soft, non-distended, non-tender, normoactive bowel sounds EXTREMITIES: 2+ UE edema, 2+ LE edema, R anterior norris pustular dermatitis unchanged : hines CBC, BMP 09/27/17 05:45 09/27/17 05:45 Hepatic Panel Direct Bilirubin 1.8 mg/dL (0.0-0.2) H D 09/09/17 05:00 Total Bilirubin 0.5 mg/dL (0.2-1.0) 09/27/17 05:45 AST 57 U/L (15-37) H D 09/27/17 05:45 ALT 8 U/L (12-78) L 09/27/17 05:45 Alkaline Phosphatase 175 U/L (45-117) H D 09/27/17 05:45 Albumin 1.6 g/dl (3.4-5.0) L 09/27/17 05:45 Ca - 7.5 Phos - 4.3 Mg - 2 Active Medications Acetaminophen (Tylenol -) 650 mg NR Q6H PRN PRN Reason: FEVER OR PAIN Last Admin: 09/16/17 18:27 Dose: 650 mg Albuterol/Ipratropium (Duoneb -) 1 amp NEB Q6H PRN PRN Reason: SHORTNESS OF BREATH Last Admin: 09/23/17 19:39 Dose: 1 amp Apixaban (Eliquis -) 2.5 mg GT BID [facility] Last Admin: 09/27/17 10:40 Dose: 2.5 mg Chlorhexidine Gluconate (Peridex -) 15 ml MM BID [facility] Last Admin: 09/27/17 10:41 Dose: 15 ml Ferrous Sulfate (Feosol -) 325 mg PO DAILY [facility] Last Admin: 09/27/17 10:40 Dose: 325 mg Folic Acid (Folic Acid -) 1 mg PO DAILY [facility] Last Admin: 09/27/17 10:40 Dose: 1 mg Cefazolin Sodium (Ancef 1gm Ivpb (Pre-Docked)) 50 mls @ 100 mls/hr IVPB Q8H-IV [facility] Last Admin: 09/27/17 18:14 Dose: 100 mls/hr Metoprolol Tartrate (Lopressor -) 25 mg NGT BID [facility] Last Admin: 09/27/17 10:40 Dose: 25 mg Multivitamins/Minerals (Theragran-M) 1 each PO DAILY [facility] Last Admin: 09/27/17 10:42 Dose: 1 each Mupirocin (Bactroban 2% Cream -) 1 applic TP BID [facility] Last Admin: 09/27/17 10:00 Dose: 1 applic Pantoprazole Sodium (Protonix -) 40 mg PO DAILY [facility] Last Admin: 09/27/17 10:40 Dose: 40 mg Sevelamer Carbonate (Renvela -) 800 mg PO TIDCM [facility] Last Admin: 09/27/17 18:14 Dose: Not Given Thiamine HCl (Vitamin B1 -) 100 mg PO DAILY [facility] Last Admin: 09/27/17 10:40 Dose: 100 mg ASSESSMENT/PLAN: 66yo man with PMH of EtOH abuse and HTN who is admitted (08/31) for acute hypoxic respiratory failure requiring mechanical ventilation (09/02 - 09/19) and sepsis, now resolving and off pressors. Persistent cavitary PNA with loculated effusions bilaterally, R pigtail CT with minimal drainage, and acute thoracic osteomyletitis (T9-T10). MSSA bacteremia, now resolved cleared; ALISA (09/13) r/o endocarditis. Serial blood cultures collected 09/08, 09/10, 09/12, 09/19, 09/22 NGTD. Sputum cultures grew yeast-like organism and patient treated with Diflucan. RLE pustules noted on anterior norris, now resolving, wound cultures normal skin north/no PMNs and s/p 3 days acylovir for possible zoster (09/19-). #acute hypoxic respiratory failure -Vent mgmt per ICU tube -sedation holiday and SBT as tolerated -Dnase not on formulary, and no clear benefit with TPA treatment alone -CT surgery consulted to re-evaluate for VATS #sepsis 2/2 cavitary PNA, acute osteomyelitis -R chest tube draining to water seal -Continue Cefazolin 1gm Q8H (started 09/16), will need prolonged course due to acute osteomyelitis (6 wks) #GI bleed, likely 2/2 trauma from rectal tube, s/p 3Ux PRBCs, Hgb stable, no further bleeds -protonix 40mg NGT BID -Trend H&H, transfuse Hgb<7 #Afib - CHADVASC score of 2 indicating AC -Cardiology following -can consider PO amio for rate control (currently in NSR) -Eliquis 2.5mg NGT BID #suspected chronic diastolic heart failure - ECHO 09/02/2017 rprobable preserved LV function, but can't R/O regional wall motion abnormality -Metoprol 25mg NGT BID #ARF -Nephrology consulted, -May need HD -Strict I&Os, hines -Renal dose for meds -Cont Ferrous Sulfate 325 mg PO DAILY [facility] -Cont Sevelamer Carbonate (Renvela) 800 mg PO TID #EtOH abuse -Monitor for signs of EtOH withdrawal -MVI, thiamine 100mg PO qd, folic acid 1mg PO daily #FEN -NGT 400cc free water flushes q4h -hyperPhos noted -Enteral feeds #PPX -Eliquis -GI - Pantoprazole 40mg NGT BID #Dispo: continue ICU monitoring FULL code d/w Dr. Akbar Salter MD PGY-1 Visit type - Emergency Visit Emergency Visit: No - New Patient This patient is new to me today: No - Critical Care Critical Care patient: Yes Total Critical Care Time (in minutes): 35 Critical Care Statement: The care of this patient involved high complexity decision making to prevent further life threatening deterioration of the patient 's condition and/or to evaluate & treat vital organ system(s) failure or risk of failure.
[2017-09-27] MEDS ORDERED: PT OWN MED DRAWER 7, Y5N ONE (09:32)
[2017-09-27] MEDS ORDERED: PANTOPRAZOLE 40 MG TABLET (FP) PO SCH (10:00)
[2017-09-27] MEDS: MUPIROCIN CA 2% TOPICAL CREAM 15 GM TUBE TP SCH ×2 (10:00→21:55)
[2017-09-27] MEDS: METOPROLOL TARTRATE 25 MG TABLET (FP) NGT SCH ×2 (10:40→21:54)
[2017-09-27] MEDS: FOLIC ACID 1 MG TABLET (FP) PO SCH (10:40)
[2017-09-27] MEDS: APIXABAN 2.5 MG TABLET GT SCH ×2 (10:40→21:54)
[2017-09-27] MEDS: THIAMINE HCL 100 MG TABLET (FP) PO SCH (10:40)
[2017-09-27] MEDS: FERROUS SO4 325 MG TABLET (FP) PO SCH (10:40)
[2017-09-27] MEDS: CHLORHEXIDINE GLUCONATE 0.12% 15ML CUP MM SCH ×2 (10:41→21:55)
[2017-09-27] MEDS: SEVELAMER CARBONATE 800 MG TAB (FP) PO SCH ×3 (10:41→18:14)
[2017-09-27] MEDS: MULTIVITAMINS THER W-MINERALS COMBO TABLET (FP) PO SCH (10:42)
--- NOTE | 2017-09-27 13:44 | PN ---
Teaching Attending Note Name of Resident: Anton Zamora ATTENDING PHYSICIAN STATEMENT I saw and evaluated the patient. I reviewed the resident's note and discussed the case with the resident. I agree with the resident's findings and plan as documented. SUBJECTIVE: Patient seen and examined remains intubated. Awake on AC Mode of vent. No pressors. Able to follow commands. Intake & Output 09/24/17 09/25/17 09/26/17 09/27/17 23:59 23:59 23:59 23:59 Intake Total 170 1900 2104.8 1530 Output Total 269 980 6156 325 Balance -635 990 834.8 1205 Weight 190 lb 6 oz 179 lb 8 oz 179 lb 12.8 oz 188 lb 9.6 oz Last Vital Signs Temp Pulse Resp BP Pulse Ox 99.8 F H 102 H 22 160/96 99 09/27/17 06:00 09/27/17 12:00 09/27/17 12:00 09/27/17 12:00 09/27/17 10:25 Active Medications Acetaminophen (Tylenol -) 650 mg NR Q6H PRN PRN Reason: FEVER OR PAIN Last Admin: 09/16/17 18:27 Dose: 650 mg Albuterol/Ipratropium (Duoneb -) 1 amp NEB Q6H PRN PRN Reason: SHORTNESS OF BREATH Last Admin: 09/23/17 19:39 Dose: 1 amp Apixaban (Eliquis -) 2.5 mg GT BID [facility] Last Admin: 09/27/17 10:40 Dose: 2.5 mg Chlorhexidine Gluconate (Peridex -) 15 ml MM BID [facility] Last Admin: 09/27/17 10:41 Dose: 15 ml Ferrous Sulfate (Feosol -) 325 mg PO DAILY [facility] Last Admin: 09/27/17 10:40 Dose: 325 mg Folic Acid (Folic Acid -) 1 mg PO DAILY [facility] Last Admin: 09/27/17 10:40 Dose: 1 mg Cefazolin Sodium (Ancef 1gm Ivpb (Pre-Docked)) 50 mls @ 100 mls/hr IVPB Q8H-IV [facility] Last Admin: 09/27/17 10:40 Dose: 100 mls/hr Metoprolol Tartrate (Lopressor -) 25 mg NGT BID [facility] Last Admin: 09/27/17 10:40 Dose: 25 mg Multivitamins/Minerals (Theragran-M) 1 each PO DAILY [facility] Last Admin: 09/27/17 10:42 Dose: 1 each Mupirocin (Bactroban 2% Cream -) 1 applic TP BID [facility] Last Admin: 09/26/17 21:10 Dose: 1 applic Pantoprazole Sodium (Protonix -) 40 mg PO DAILY [facility] Last Admin: 09/27/17 10:40 Dose: 40 mg Sevelamer Carbonate (Renvela -) 800 mg PO TIDCM [facility] Last Admin: 09/27/17 10:41 Dose: Not Given Thiamine HCl (Vitamin B1 -) 100 mg PO DAILY [facility] Last Admin: 09/27/17 10:40 Dose: 100 mg GENERAL: The patient is awake, alert, intubated. LUNGS: coarse breath sounds, scattered rhonchi HEART: Regular rate and rhythm, S1, S2 without murmur, rub or gallop. ABDOMEN: obese, Soft, nontender, nondistended, normoactive bowel sounds, no guarding, no rebound, no hepatosplenomegaly, no masses. EXTREMITIES: 2+ pulses, warm, well-perfused, no edema. NEUROLOGICAL: Non-focal, moving all extremities SKIN: RLE pustules on anterior aspect below the knee, area of about 2x3 cm ; no surrounding swelling or erythema, Laboratory Results - last 24 hr 09/23/17 09/26/17 09/26/17 15:00 14:15 14:18 WBC 12.4 H RBC 2.72 L Hgb 7.9 L D Hct 24.1 L D MCV 88.4 MCH 29.1 MCHC 32.9 RDW 16.6 H Plt Count 211 MPV 7.0 L Sodium Potassium Chloride Carbon Dioxide Anion Gap BUN Creatinine Creat Clearance w eGFR Random Glucose Calcium Phosphorus Magnesium Total Bilirubin AST ALT Alkaline Phosphatase Total Protein Albumin Blood Type O NEGATIVE O NEGATIVE Antibody Screen Negative Negative Crossmatch See Detail See Detail 09/27/17 09/27/17 05:45 05:45 WBC 12.3 H RBC 2.77 L Hgb 8.3 L Hct 24.0 L MCV 86.9 MCH 29.9 MCHC 34.4 RDW 16.6 H Plt Count 206 MPV 7.5 Sodium 145 Potassium 3.5 Chloride 113 H Carbon Dioxide 21 Anion Gap 11 BUN 105 H* Creatinine 5.0 H Creat Clearance w eGFR 11.60 Random Glucose 119 H Calcium 7.5 L Phosphorus 4.3 Magnesium 2.0 Total Bilirubin 0.5 AST 57 H D ALT 8 L Alkaline Phosphatase 175 H D Total Protein 7.0 Albumin 1.6 L Blood Type Antibody Screen Crossmatch Problem List - Problems (1) Hyponatremia Code(s): E87.1 - HYPO-OSMOLALITY AND HYPONATREMIA (2) Hypokalemia Code(s): E87.6 - HYPOKALEMIA (3) Respiratory failure with hypoxia Code(s): J96.91 - RESPIRATORY FAILURE, UNSPECIFIED WITH HYPOXIA Qualifiers: Chronicity: acute Qualified Code(s): J96.01 - Acute respiratory failure with hypoxia (4) Pneumonia Code(s): J18.9 - PNEUMONIA, UNSPECIFIED ORGANISM Qualifiers: Pneumonia type: aspiration pneumonia (5) Staphylococcus aureus bacteremia Code(s): R78.81 - BACTEREMIA (7) Endocarditis due to Staphylococcus Code(s): I33.0 - ACUTE AND SUBACUTE INFECTIVE ENDOCARDITIS; B95.8 - UNSP STAPHYLOCOCCUS THE CAUSE OF DISEASES CLASSD ELSWHR (8) History of alcohol abuse Code(s): Z87.898 - PERSONAL HISTORY OF OTHER SPECIFIED CONDITIONS PLAN: Wean to extubate ABX per ID Will D/W CTS further management VTE prophylaxis AC PPI Enteral feeds Free water replacement Dr Griffin Critical care time spent in reviewing chart, evaluating patient and formulating plan - 36 minutes.
--- NOTE | 2017-09-27 13:45 | PN ---
Progress Note, Physician History of Present Illness: Pt seen and examined at bedside. He was just extubated. He is awake and on oxygen. - Current Medication List Current Medications: Active Medications Acetaminophen (Tylenol -) 650 mg NR Q6H PRN PRN Reason: FEVER OR PAIN Last Admin: 09/16/17 18:27 Dose: 650 mg Albuterol/Ipratropium (Duoneb -) 1 amp NEB Q6H PRN PRN Reason: SHORTNESS OF BREATH Last Admin: 09/23/17 19:39 Dose: 1 amp Apixaban (Eliquis -) 2.5 mg GT BID [facility] Last Admin: 09/27/17 10:40 Dose: 2.5 mg Chlorhexidine Gluconate (Peridex -) 15 ml MM BID [facility] Last Admin: 09/27/17 10:41 Dose: 15 ml Ferrous Sulfate (Feosol -) 325 mg PO DAILY [facility] Last Admin: 09/27/17 10:40 Dose: 325 mg Folic Acid (Folic Acid -) 1 mg PO DAILY [facility] Last Admin: 09/27/17 10:40 Dose: 1 mg Cefazolin Sodium (Ancef 1gm Ivpb (Pre-Docked)) 50 mls @ 100 mls/hr IVPB Q8H-IV [facility] Last Admin: 09/27/17 10:40 Dose: 100 mls/hr Metoprolol Tartrate (Lopressor -) 25 mg NGT BID [facility] Last Admin: 09/27/17 10:40 Dose: 25 mg Multivitamins/Minerals (Theragran-M) 1 each PO DAILY [facility] Last Admin: 09/27/17 10:42 Dose: 1 each Mupirocin (Bactroban 2% Cream -) 1 applic TP BID [facility] Last Admin: 09/26/17 21:10 Dose: 1 applic Pantoprazole Sodium (Protonix -) 40 mg PO DAILY [facility] Last Admin: 09/27/17 10:40 Dose: 40 mg Sevelamer Carbonate (Renvela -) 800 mg PO TIDCM [facility] Last Admin: 09/27/17 10:41 Dose: Not Given Thiamine HCl (Vitamin B1 -) 100 mg PO DAILY [facility] Last Admin: 09/27/17 10:40 Dose: 100 mg - Objective Vital Signs: Vital Signs Temperature 99.8 F H 09/27/17 06:00 Pulse Rate 102 H 09/27/17 12:00 Respiratory Rate 22 11/10/17 12:00 Blood Pressure 160/96 09/27/17 12:00 O2 Sat by Pulse Oximetry (%) 99 09/27/17 10:25 Constitutional: Yes: Calm Eyes: Yes: Conjunctiva Clear HENT: Yes: Atraumatic Cardiovascular: Yes: S1, S2 Respiratory: Yes: On Venti-Mask, Other (chest tube) Gastrointestinal: Yes: Soft Genitourinary: Yes: Freeman Present Musculoskeletal: Yes: Muscle Weakness Edema: Yes Edema: LUE: 1+, RUE: 1+, LLE: 1+, RLE: 1+ Neurological: Yes: Other (pt just extubated, moving all extremities) Labs: CBC, BMP 09/27/17 05:45 09/27/17 05:45 INR, PTT INR 1.12 (0.82-1.09) 09/26/17 06:10 - ....Imaging Chest X-ray: Report Reviewed Problem List - Problems (1) Abuse, drug or alcohol Code(s): F19.10 - OTHER PSYCHOACTIVE SUBSTANCE ABUSE, UNCOMPLICATED (2) Withdrawal symptoms, alcohol Code(s): F10.239 - ALCOHOL DEPENDENCE WITH WITHDRAWAL, UNSPECIFIED Qualifiers: Qualified Code(s): F10.230 - Alcohol dependence with withdrawal, uncomplicated (3) Hyponatremia Code(s): E87.1 - HYPO-OSMOLALITY AND HYPONATREMIA (4) Respiratory failure with hypoxia Code(s): J96.91 - RESPIRATORY FAILURE, UNSPECIFIED WITH HYPOXIA Qualifiers: Qualified Code(s): J96.01 - Acute respiratory failure with hypoxia (5) Staphylococcus aureus bacteremia Code(s): R78.81 - BACTEREMIA (6) Acute kidney injury Code(s): N17.9 - ACUTE KIDNEY FAILURE, UNSPECIFIED (7) Anemia Code(s): D64.9 - ANEMIA, UNSPECIFIED Qualifiers: Qualified Code(s): D64.9 - Anemia, unspecified Assessment/Plan Current Medications Generic Name Dose Route Start Last Admin Trade Name Freq PRN Reason Stop Dose Admin Acetaminophen 650 mg 09/07/17 05:53 09/16/17 18:27 Tylenol - NR 650 mg Q6H PRN Administration FEVER OR PAIN Albuterol/Ipratropium 1 amp 09/19/17 14:55 09/23/17 19:39 Duoneb - NEB 1 amp Q6H PRN Administration SHORTNESS OF BREATH Apixaban 2.5 mg 09/25/17 22:00 09/27/17 10:40 Eliquis - GT 2.5 mg BID [facility] Administration Chlorhexidine Gluconate 15 ml 09/08/17 12:30 09/27/17 10:41 Peridex - MM 15 ml BID [facility] Administration Ferrous Sulfate 325 mg 09/05/17 12:00 09/27/17 10:40 Feosol - PO 325 mg DAILY [facility] Administration Folic Acid 1 mg 09/02/17 10:00 09/27/17 10:40 Folic Acid - PO 1 mg DAILY [facility] Administration Cefazolin Sodium 50 mls @ 100 mls/hr 09/16/17 10:00 09/27/17 10:40 Ancef 1gm Ivpb (Pre-Docked) IVPB 100 mls/hr Q8H-IV [facility] Administration Metoprolol Tartrate 25 mg 09/25/17 13:45 09/27/17 10:40 Lopressor - NGT 25 mg BID [facility] Administration Multivitamins/Minerals 1 each 09/02/17 10:00 09/27/17 10:42 Theragran-M PO 1 each DAILY [facility] Administration Mupirocin 1 applic 09/23/17 10:00 09/26/17 21:10 Bactroban 2% Cream - TP 1 applic BID [facility] Administration Pantoprazole Sodium 40 mg 09/27/17 10:00 09/27/17 10:40 Protonix - PO 40 mg DAILY [facility] Administration Sevelamer Carbonate 800 mg 09/12/17 17:30 09/27/17 10:41 Renvela - PO Not Given TIDCM [facility] Thiamine HCl 100 mg 09/02/17 10:00 09/27/17 10:40 Vitamin B1 - PO 100 mg DAILY [facility] Administration Impression 1. ALEXANDRA 2. fluid overload 3. hypoalbuminemia 4. respiratory failure requiring intubation 5. anemia 6. etoh abuse 7. fevers 8. hypokalemia 9. pleural effusion 10. hypernatremia 11. GI bleed Plan - pt now extubated - repeat bmp in am - renal function continues to worsen, ALEXANDRA multifactorial - will repeat ua and urine lytes today - monitor hg - monitor urine output - cont chest tube care - monitor pulse ox - pt now off of feeds as ng tube removed, will need speech and swallow - lasix prn, would give albumin with lasix as needed - repeat cxr in am - discussed with ICU team - keep pt in ICU - will follow Dr Peres
--- NOTE | 2017-09-27 14:24 | PN ---
Teaching Attending Note Name of Resident: Lydia Salter ATTENDING PHYSICIAN STATEMENT Time of evaluation: 9:30 AM I saw and evaluated the patient. I reviewed the resident's note and discussed the case with the resident. I agree with the resident's findings and plan as documented. SUBJECTIVE: Patient seen and examined. intubated but awake, denies pain, unable to do further ROS. OBJECTIVE: Vital Signs Period Temp Pulse Resp BP Sys/Jeff Pulse Ox Last 24 Hr 98.6 F-100.3 F 84-110 18-34 129-169/80-98 99-100 Intake & Output 09/24/17 09/25/17 09/26/17 09/27/17 23:59 23:59 23:59 23:59 Intake Total 170 1900 2104.8 1530 Output Total 677 907 8299 325 Balance -635 990 834.8 1205 Weight 190 lb 6 oz 179 lb 8 oz 179 lb 12.8 oz 188 lb 9.6 oz General: lying in bed, looks comfortable, awake in no acute distress CVS S1S2 regular Chest limited exam, positive air entry abdomen soft, obese, NT Extremities improved edema and RLE lesions Neuro Awake, responds to name, attempting to speak, follows simple commands Home Medication List Medication Instructions Recorded Confirmed Type Unobtainable [Unobtainable] 08/31/17 08/31/17 History Active Medications Generic Name Dose Route Start Last Admin Trade Name Freq PRN Reason Stop Dose Admin Acetaminophen 650 mg 09/07/17 05:53 09/16/17 18:27 Tylenol - NR 650 mg Q6H PRN Administration FEVER OR PAIN Albuterol/Ipratropium 1 amp 09/19/17 14:55 09/23/17 19:39 Duoneb - NEB 1 amp Q6H PRN Administration SHORTNESS OF BREATH Apixaban 2.5 mg 09/25/17 22:00 09/27/17 10:40 Eliquis - GT 2.5 mg BID [facility] Administration Chlorhexidine Gluconate 15 ml 09/08/17 12:30 09/27/17 10:41 Peridex - MM 15 ml BID [facility] Administration Ferrous Sulfate 325 mg 09/05/17 12:00 09/27/17 10:40 Feosol - PO 325 mg DAILY [facility] Administration Folic Acid 1 mg 09/02/17 10:00 09/27/17 10:40 Folic Acid - PO 1 mg DAILY [facility] Administration Cefazolin Sodium 50 mls @ 100 mls/hr 09/16/17 10:00 09/27/17 10:40 Ancef 1gm Ivpb (Pre-Docked) IVPB 100 mls/hr Q8H-IV [facility] Administration Metoprolol Tartrate 25 mg 09/25/17 13:45 09/27/17 10:40 Lopressor - NGT 25 mg BID [facility] Administration Multivitamins/Minerals 1 each 09/02/17 10:00 09/27/17 10:42 Theragran-M PO 1 each DAILY [facility] Administration Mupirocin 1 applic 09/23/17 10:00 09/26/17 21:10 Bactroban 2% Cream - TP 1 applic BID [facility] Administration Pantoprazole Sodium 40 mg 09/27/17 10:00 09/27/17 10:40 Protonix - PO 40 mg DAILY [facility] Administration Sevelamer Carbonate 800 mg 09/12/17 17:30 09/27/17 10:41 Renvela - PO Not Given TIDCM [facility] Thiamine HCl 100 mg 09/02/17 10:00 09/27/17 10:40 Vitamin B1 - PO 100 mg DAILY [facility] Administration Laboratory Results - last 24 hr 09/23/17 09/26/17 09/26/17 15:00 14:15 14:18 WBC 12.4 H RBC 2.72 L Hgb 7.9 L D Hct 24.1 L D MCV 88.4 MCH 29.1 MCHC 32.9 RDW 16.6 H Plt Count 211 MPV 7.0 L Sodium Potassium Chloride Carbon Dioxide Anion Gap BUN Creatinine Creat Clearance w eGFR Random Glucose Calcium Phosphorus Magnesium Total Bilirubin AST ALT Alkaline Phosphatase Total Protein Albumin Blood Type O NEGATIVE O NEGATIVE Antibody Screen Negative Negative Crossmatch See Detail See Detail 09/27/17 09/27/17 05:45 05:45 WBC 12.3 H RBC 2.77 L Hgb 8.3 L Hct 24.0 L MCV 86.9 MCH 29.9 MCHC 34.4 RDW 16.6 H Plt Count 206 MPV 7.5 Sodium 145 Potassium 3.5 Chloride 113 H Carbon Dioxide 21 Anion Gap 11 BUN 105 H* Creatinine 5.0 H Creat Clearance w eGFR 11.60 Random Glucose 119 H Calcium 7.5 L Phosphorus 4.3 Magnesium 2.0 Total Bilirubin 0.5 AST 57 H D ALT 8 L Alkaline Phosphatase 175 H D Total Protein 7.0 Albumin 1.6 L Blood Type Antibody Screen Crossmatch ASSESSMENT AND PLAN: -Acute hypoxic respiratory failure -Severe sepsis due to cavitary PNA, MSSA bacteremia, ALISA neg for vegetation -Large right loculated pleural effusion, s/p chest tube -Acute T9-T10 discitis/osteomyelitis -Hematochezia -ARF, from sepsis vs medication related -Acute on chronic anemia, suspect from renal dysfunction, episode of hematochezia suspected from rectal tube/heparin, resolved for now -AFib with RVR recurrent -Hypokalemia/hypomagnesemia -Hyperphosphatemia -Hypovolumic hypernatremia -Alcohol abuse -Normocytic anemia -Acute transaminitis -Chronic right subdural hematoma Plan: Extubated today, doing well, continue to monitor. Follow up CT surgery input. Cefazolin, ID input appreciated, atleast 6 weeks antibiotics with likely repeat imaging then, repeat blood cultures sent 09/22, follow up. No further hematochezia, off heparin drip, placed on low dose eliquis, discussed with ICU/DR. Cazares, will continue with monitoring for now. Hb ranging 7-8, suspect worsening renal function contributory as well, no further evidence of ongoing bleed. s/p 1unit PRBC 09/26, trend for now. Renal function gradually worsening,creatinine rising, failed fluid challenge. Hypernatremia improved on NG feeds and free water flushes. May need HD, follow up with renal. On PO metoprolol. Currently with sinus tach, not afib. Replete lytes as needed. Trend LFTs Off NG tube, resume diet as tolerated. Palliative care input noted. Continue to monitor and address goals of care. Patient critical with ongoing multiorgan dsyfunction. total critical care time spent 40 min.
--- NOTE | 2017-09-27 15:23 | PN ---
Progress Note, Physician History of Present Illness: Extubated Breathing non-labored Low grade temp Worsening renal function noted - Current Medication List Current Medications: Active Medications Acetaminophen (Tylenol -) 650 mg NR Q6H PRN PRN Reason: FEVER OR PAIN Last Admin: 09/16/17 18:27 Dose: 650 mg Albuterol/Ipratropium (Duoneb -) 1 amp NEB Q6H PRN PRN Reason: SHORTNESS OF BREATH Last Admin: 09/23/17 19:39 Dose: 1 amp Apixaban (Eliquis -) 2.5 mg GT BID [facility] Last Admin: 09/27/17 10:40 Dose: 2.5 mg Chlorhexidine Gluconate (Peridex -) 15 ml MM BID [facility] Last Admin: 09/27/17 10:41 Dose: 15 ml Ferrous Sulfate (Feosol -) 325 mg PO DAILY [facility] Last Admin: 09/27/17 10:40 Dose: 325 mg Folic Acid (Folic Acid -) 1 mg PO DAILY [facility] Last Admin: 09/27/17 10:40 Dose: 1 mg Cefazolin Sodium (Ancef 1gm Ivpb (Pre-Docked)) 50 mls @ 100 mls/hr IVPB Q8H-IV [facility] Last Admin: 09/27/17 10:40 Dose: 100 mls/hr Metoprolol Tartrate (Lopressor -) 25 mg NGT BID [facility] Last Admin: 09/27/17 10:40 Dose: 25 mg Multivitamins/Minerals (Theragran-M) 1 each PO DAILY [facility] Last Admin: 09/27/17 10:42 Dose: 1 each Mupirocin (Bactroban 2% Cream -) 1 applic TP BID [facility] Last Admin: 09/26/17 21:10 Dose: 1 applic Pantoprazole Sodium (Protonix -) 40 mg PO DAILY [facility] Last Admin: 09/27/17 10:40 Dose: 40 mg Sevelamer Carbonate (Renvela -) 800 mg PO TIDCM [facility] Last Admin: 09/27/17 14:53 Dose: Not Given Thiamine HCl (Vitamin B1 -) 100 mg PO DAILY [facility] Last Admin: 09/27/17 10:40 Dose: 100 mg - Objective Vital Signs: Vital Signs Temperature 99 F 09/27/17 14:00 Pulse Rate 98 H 09/27/17 14:00 Respiratory Rate 20 09/27/17 14:00 Blood Pressure 144/87 09/27/17 14:00 O2 Sat by Pulse Oximetry (%) 99 09/27/17 10:25 Constitutional: Yes: No Distress Eyes: Yes: Conjunctiva Clear Cardiovascular: Yes: Regular Rate and Rhythm, S1, S2 Respiratory: Yes: Diminished Gastrointestinal: Yes: Normal Bowel Sounds, Soft. No: Tenderness Edema: Yes Labs: CBC, BMP 09/27/17 05:45 09/27/17 05:45 INR, PTT INR 1.12 (0.82-1.09) 09/26/17 06:10 Assessment/Plan MSSA bacteremia, likely skin source Vertebral osteo T9T10 Resp failure Possible aspiration pneumonia Hx ETOH abuse Continue cefazolin; adjust for worsening renal function Ventilatory support Will need terminal supervisor (6-8w) anti- staph treatment
--- NOTE | 2017-09-27 15:28 | PN ---
Physical Exam: SUBJECTIVE: Patient seen and examined. extubated today awake, alert will get speech and swallow. OBJECTIVE: Vital Signs Period Temp Pulse Resp BP Sys/Jeff Pulse Ox Last 24 Hr 98.6 F-100.3 F 84-110 18-31 129-169/80-98 99-100 GENERAL: The patient is awake, HEAD: Normal with no signs of trauma. EYES: PERRL, No ptosis. ENT: Ears normal, nares patent, moist mucous membranes. NECK: Trachea midline, full range of motion, supple. LUNGS: decrease breath sound b/l crackels at base, chest tube in situ on right side. HEART: s1s2 chris.. ABDOMEN: Soft, nontender, nondistended, normoactive bowel sounds, no guarding, no rebound, EXTREMITIES: edema++ SKIN: Warm, dry, Laboratory Results - last 24 hr 09/23/17 09/26/17 09/27/17 15:00 14:18 05:45 WBC 12.3 H RBC 2.77 L Hgb 8.3 L Hct 24.0 L MCV 86.9 MCH 29.9 MCHC 34.4 RDW 16.6 H Plt Count 206 MPV 7.5 Sodium Potassium Chloride Carbon Dioxide Anion Gap BUN Creatinine Creat Clearance w eGFR Random Glucose Calcium Phosphorus Magnesium Total Bilirubin AST ALT Alkaline Phosphatase Total Protein Albumin Blood Type O NEGATIVE O NEGATIVE Antibody Screen Negative Negative Crossmatch See Detail See Detail 09/27/17 05:45 WBC RBC Hgb Hct MCV MCH MCHC RDW Plt Count MPV Sodium 145 Potassium 3.5 Chloride 113 H Carbon Dioxide 21 Anion Gap 11 BUN 105 H* Creatinine 5.0 H Creat Clearance w eGFR 11.60 Random Glucose 119 H Calcium 7.5 L Phosphorus 4.3 Magnesium 2.0 Total Bilirubin 0.5 AST 57 H D ALT 8 L Alkaline Phosphatase 175 H D Total Protein 7.0 Albumin 1.6 L Blood Type Antibody Screen Crossmatch Active Medications Generic Name Dose Route Start Last Admin Trade Name Freq PRN Reason Stop Dose Admin Acetaminophen 650 mg 09/07/17 05:53 09/16/17 18:27 Tylenol - NR 650 mg Q6H PRN Administration FEVER OR PAIN Albuterol/Ipratropium 1 amp 09/19/17 14:55 09/23/17 19:39 Duoneb - NEB 1 amp Q6H PRN Administration SHORTNESS OF BREATH Apixaban 2.5 mg 09/25/17 22:00 09/27/17 10:40 Eliquis - GT 2.5 mg BID [facility] Administration Chlorhexidine Gluconate 15 ml 09/08/17 12:30 09/27/17 10:41 Peridex - MM 15 ml BID [facility] Administration Ferrous Sulfate 325 mg 09/05/17 12:00 09/27/17 10:40 Feosol - PO 325 mg DAILY [facility] Administration Folic Acid 1 mg 09/02/17 10:00 09/27/17 10:40 Folic Acid - PO 1 mg DAILY [facility] Administration Cefazolin Sodium 50 mls @ 100 mls/hr 09/16/17 10:00 09/27/17 10:40 Ancef 1gm Ivpb (Pre-Docked) IVPB 100 mls/hr Q8H-IV [facility] Administration Metoprolol Tartrate 25 mg 09/25/17 13:45 09/27/17 10:40 Lopressor - NGT 25 mg BID [facility] Administration Multivitamins/Minerals 1 each 09/02/17 10:00 09/27/17 10:42 Theragran-M PO 1 each DAILY [facility] Administration Mupirocin 1 applic 09/23/17 10:00 09/26/17 21:10 Bactroban 2% Cream - TP 1 applic BID [facility] Administration Pantoprazole Sodium 40 mg 09/27/17 10:00 09/27/17 10:40 Protonix - PO 40 mg DAILY [facility] Administration Sevelamer Carbonate 800 mg 09/12/17 17:30 09/27/17 14:53 Renvela - PO Not Given TIDCM [facility] Thiamine HCl 100 mg 09/02/17 10:00 09/27/17 10:40 Vitamin B1 - PO 100 mg DAILY [facility] Administration Intake & Output 09/24/17 09/25/17 09/26/17 09/27/17 23:59 23:59 23:59 23:59 Intake Total 170 1900 2104.8 1530 Output Total 268 587 2798 325 Balance -635 990 834.8 1205 Weight 190 lb 6 oz 179 lb 8 oz 179 lb 12.8 oz 188 lb 9.6 oz ASSESSMENT/PLAN: #acute hypoxic respiratory failure - extubated - on venturi mask maintaing spo2 96-98% - keep head end elevated. - aspiration precautions. #sepsis 2/2 cavitary PNA, acute vertebral osteomyelitis t9-t10 -R chest tube draining to water seal -Continue Cefazolin 1gm Q8H (started 09/16), will need prolonged course due to acute osteomyelitis (6 wks) #GI bleed, likely 2/2 trauma from rectal tube, s/p 3Ux PRBCs, Hgb stable, no further bleeds -protonix 40mg NGT daily -Trend H&H, transfuse Hgb<7 - on ferrous sulphate. #Afib - CHADVASC score of 2 indicating AC -Cardiology following - on metoprolol 25mg bid for rate control -Eliquis 2.5mg NGT BID #ARF -Nephrology on case - renal function worsen. -c3/c4 complement level wnl; PROSPER positive -Strict I&Os, hines -Renal dose for meds -Cont Ferrous Sulfate 325 mg PO DAILY [facility] -Cont Sevelamer Carbonate (Renvela) 800 mg PO TID #EtOH abuse -Monitor for signs of EtOH withdrawal -MVI, thiamine 100mg PO qd, folic acid 1mg PO daily #FEN -NPO, get speech and swallow evaluation. -hyperPhos noted -Enteral feeds #PPX -Eliquis #Dispo: continue ICU monitoring Visit type - Emergency Visit Emergency Visit: Yes ED Registration Date: 08/31/17 Care time: The patient presented to the Emergency Department on the above date and was hospitalized for further evaluation of their emergent condition. - New Patient This patient is new to me today: No - Critical Care Critical Care patient: Yes Total Critical Care Time (in minutes): 45 Critical Care Statement: The care of this patient involved high complexity decision making to prevent further life threatening deterioration of the patient 's condition and/or to evaluate & treat vital organ system(s) failure or risk of failure.
[2017-09-27 17:31] LABS: URINE APPEARANCE CLOUDY; URINE BILIRUBIN NEGATIVE (NEGATIVE); URINE BLOOD 1+ (NEGATIVE); URINE COLOR YELLOW; URINE GLUCOSE (UA) NEGATIVE (NEGATIVE); URINE KETONE NEGATIVE (NEGATIVE); URINE NITRITE NEGATIVE (NEGATIVE); URINE UROBILINOGEN NEGATIVE mg/dL (0.2-1.0)
[2017-09-27 17:32] LABS: URINE PROTEIN 2+ (NEGATIVE)
[2017-09-27 17:33] LABS: URINE HYALINE CAST 3 /lpf; URINE MUCUS RARE; URINE RBC 18; URINE WBC 16; YEAST FEW
--- NOTE | 2017-09-27 18:40 | PN ---
Progress Note, Physician History of Present Illness: Extubated on 40% VM, tele shows SR with PAC. - Current Medication List Current Medications: Active Medications Acetaminophen (Tylenol -) 650 mg NR Q6H PRN PRN Reason: FEVER OR PAIN Last Admin: 09/16/17 18:27 Dose: 650 mg Albuterol/Ipratropium (Duoneb -) 1 amp NEB Q6H PRN PRN Reason: SHORTNESS OF BREATH Last Admin: 09/23/17 19:39 Dose: 1 amp Apixaban (Eliquis -) 2.5 mg GT BID [facility] Last Admin: 09/27/17 10:40 Dose: 2.5 mg Chlorhexidine Gluconate (Peridex -) 15 ml MM BID [facility] Last Admin: 09/27/17 10:41 Dose: 15 ml Ferrous Sulfate (Feosol -) 325 mg PO DAILY [facility] Last Admin: 09/27/17 10:40 Dose: 325 mg Folic Acid (Folic Acid -) 1 mg PO DAILY [facility] Last Admin: 09/27/17 10:40 Dose: 1 mg Cefazolin Sodium (Ancef 1gm Ivpb (Pre-Docked)) 50 mls @ 100 mls/hr IVPB Q8H-IV [facility] Last Admin: 09/27/17 18:14 Dose: 100 mls/hr Metoprolol Tartrate (Lopressor -) 25 mg NGT BID [facility] Last Admin: 09/27/17 10:40 Dose: 25 mg Multivitamins/Minerals (Theragran-M) 1 each PO DAILY [facility] Last Admin: 09/27/17 10:42 Dose: 1 each Mupirocin (Bactroban 2% Cream -) 1 applic TP BID [facility] Last Admin: 09/27/17 10:00 Dose: 1 applic Pantoprazole Sodium (Protonix -) 40 mg PO DAILY [facility] Last Admin: 09/27/17 10:40 Dose: 40 mg Sevelamer Carbonate (Renvela -) 800 mg PO TIDCM [facility] Last Admin: 09/27/17 18:14 Dose: Not Given Thiamine HCl (Vitamin B1 -) 100 mg PO DAILY [facility] Last Admin: 09/27/17 10:40 Dose: 100 mg - Objective Vital Signs: Vital Signs Temperature 98 F 09/27/17 16:00 Pulse Rate 100 H 09/27/17 18:00 Respiratory Rate 18 09/27/17 18:00 Blood Pressure 156/90 09/27/17 18:00 O2 Sat by Pulse Oximetry (%) 99 09/27/17 10:25 Constitutional: Yes: No Distress, Calm Neck: Yes: Supple Cardiovascular: Yes: Regular Rate and Rhythm Respiratory: Yes: Regular, Diminished, On Venti-Mask Gastrointestinal: Yes: Soft, Hypoactive Bowel Sounds Edema: Yes Edema: LLE: Trace, RLE: Trace Labs: CBC, BMP 09/27/17 05:45 09/27/17 05:45 INR, PTT INR 1.12 (0.82-1.09) 09/26/17 06:10 - ....Imaging Chest X-ray: Report Reviewed (Left pleural effusion, right pigtail) Problem List - Problems (1) Respiratory failure with hypoxia Code(s): J96.91 - RESPIRATORY FAILURE, UNSPECIFIED WITH HYPOXIA Qualifiers: Chronicity: acute Qualified Code(s): J96.01 - Acute respiratory failure with hypoxia (2) Pneumonia Code(s): J18.9 - PNEUMONIA, UNSPECIFIED ORGANISM Qualifiers: Pneumonia type: aspiration pneumonia (3) Staphylococcus aureus bacteremia Code(s): R78.81 - BACTEREMIA (5) History of alcohol abuse Code(s): Z87.898 - PERSONAL HISTORY OF OTHER SPECIFIED CONDITIONS (6) Acute kidney injury Code(s): N17.9 - ACUTE KIDNEY FAILURE, UNSPECIFIED (7) Acute diastolic heart failure Code(s): I50.31 - ACUTE DIASTOLIC (CONGESTIVE) HEART FAILURE (8) Anemia Code(s): D64.9 - ANEMIA, UNSPECIFIED Qualifiers: Anemia type: unspecified type Qualified Code(s): D64.9 - Anemia, unspecified (9) Discitis of cervicothoracic region Code(s): M46.43 - DISCITIS, UNSPECIFIED, CERVICOTHORACIC REGION (10) Paroxysmal atrial fibrillation Code(s): I48.0 - PAROXYSMAL ATRIAL FIBRILLATION (11) Hypernatremia Code(s): E87.0 - HYPEROSMOLALITY AND HYPERNATREMIA (12) Rectal ulcer Code(s): K62.6 - ULCER OF ANUS AND RECTUM Assessment/Plan 1. Paroxysmal atrial fibrillation [id number] score of 2, currently in sinus rhythm 2. Post hypoxic respiratory failure, on BiPAP, pulmonary infiltrates/pulmonary edema improving 3. Cavitating pneumonia, MSSA bacteremia, post septic shock no evidence of endocarditis by ALISA criteria 4. Diastolic LV dysfunction with class I-II NYHA congestive heart failure, volume overload, resolved 5. Osteomyelitis T9-T10 discitis 6. Loculated effusion post chest tube, tube chest tube obstruction 7. History of alcohol dependence 8. Acute renal insufficiency 9. Hypernatremia 10. Anemia PLAN: 1. BD as needed, wean FIO2 as tolerated, enteral feeds with free water repletion 2. Complete abx course per ID service 3. DVT and GI prophylaxis 4. Continue Lopressor 25 bid 5. Remains on Eliquis 2.5 bid (Cr 4.2) as hematochezia was due to rectal tube trauma, transfuse to maintain Hgb>8.0 6. Continue management as per critical care team. Post thrombolytics through chest tube.
[2017-09-27 21:07] LABS: URINE LEUK ESTERASE Negative (NEGATIVE)
[2017-09-27] MEDS ORDERED: methylPREDNISolone NA SUCC 125 MG/2 ML VIAL IVPUSH ONE (23:06)
[2017-09-28] MEDS: CEFAZOLIN (PRE-DOCKED) 50 ML IVPB SCH ×2 (01:04→10:10)
[2017-09-28] MEDS ORDERED: METOPROLOL TARTRATE 5 MG/5 ML VIAL IVPUSH PRN (05:45)
[2017-09-28 06:32] LABS: BASOPHIL 0.3 % (0-2.0); EOSINOPHIL 0.3 % (0-4.5); MCH 29.4 pg (25.7-33.7); MCHC 33.8 g/dl (32.0-35.9); MEAN PLT VOLUME 7.5 fl (7.5-11.1); NEUTROPHILS 94.5 % (42.8-82.8); PLATELET COUNT 166 K/MM3 (134-434); RDW 16.6 % (11.9-15.9); WHITE BLOOD COUNT 11.9 K/mm3 (4.0-10.0)
[2017-09-28 06:59] LABS: ALBUMIN 1.8 g/dl (3.4-5.0); ALK PHOS 160 U/L (45-117); ANION GAP 13 (8-16); BILIRUBIN,TOTAL 0.5 mg/dL (0.2-1.0); CALCIUM 8.5 mg/dL (8.5-10.1); CO2 19 mmol/L (21-32); CREATININE 5.4 mg/dL (0.7-1.3); GLUCOSE,RANDOM 131 mg/dL (74-106); SGOT/AST 41 U/L (15-37); SGPT/ALT < 6 U/L (12-78); TOT PROT 7.6 g/dl (6.4-8.2)
--- NOTE | 2017-09-28 07:32 | PN ---
Progress Note (short form) - Note Progress Note: Chief Compliant: Events noted, notes reviewed, extubated, confused and disoriented, sinus rhythm is maintained History of Present Illness: Seen and examined in the ICU. Events noted, notes reviewed, extubated, confused and disoriented, sinus rhythm is maintained Eliquis dose is sub-therapeutic and ideally Coumadin is the drug of choice but considering his clinical presentation and co-morbidities including history of alcoholism I do not feel the patient is an appropriate candidate for long term care social worker A /C, D/C Eliquis Echocardiography dated 09/02/2017 revealed probable preserved LV function, but can't R/O regional wall motion abnormality - Current Medication List Current Medications Acetaminophen (Tylenol -) 650 mg NR Q6H PRN PRN Reason: FEVER OR PAIN Last Admin: 09/16/17 18:27 Dose: 650 mg Albuterol/Ipratropium (Duoneb -) 1 amp NEB Q6H PRN PRN Reason: SHORTNESS OF BREATH Last Admin: 09/23/17 19:39 Dose: 1 amp Apixaban (Eliquis -) 2.5 mg GT BID [facility] Last Admin: 09/27/17 21:54 Dose: Not Given Chlorhexidine Gluconate (Peridex -) 15 ml MM BID [facility] Last Admin: 09/27/17 21:55 Dose: Not Given Ferrous Sulfate (Feosol -) 325 mg PO DAILY [facility] Last Admin: 09/27/17 10:40 Dose: 325 mg Folic Acid (Folic Acid -) 1 mg PO DAILY [facility] Last Admin: 09/27/17 10:40 Dose: 1 mg Cefazolin Sodium (Ancef 1gm Ivpb (Pre-Docked)) 50 mls @ 100 mls/hr IVPB Q8H-IV [facility] Last Admin: 09/28/17 01:04 Dose: 100 mls/hr Famotidine/Sodium Chloride (Pepcid 20 Mg Premixed Ivpb -) 20 mg in 50 mls @ 100 mls/hr IVPB BID [facility] Metoprolol Tartrate (Lopressor -) 25 mg NGT BID [facility] Last Admin: 09/27/17 21:54 Dose: Not Given Metoprolol Tartrate (Lopressor Injection -) 5 mg IVPUSH Q4H PRN PRN Reason: HYPERTENSION Multivitamins/Minerals (Theragran-M) 1 each PO DAILY [facility] Last Admin: 09/27/17 10:42 Dose: 1 each Mupirocin (Bactroban 2% Cream -) 1 applic TP BID [facility] Last Admin: 09/27/17 21:55 Dose: 1 applic Sevelamer Carbonate (Renvela -) 800 mg PO TIDCM [facility] Last Admin: 09/27/17 18:14 Dose: Not Given Thiamine HCl (Vitamin B1 -) 100 mg PO DAILY [facility] Last Admin: 09/27/17 10:40 Dose: 100 mg Review of systems: Unable to obtain - Objective Vital Signs: Last Vital Signs Temp Pulse Resp BP Pulse Ox 99.5 F 91 H 19 161/99 100 09/28/17 06:00 09/28/17 06:00 09/28/17 06:00 09/28/17 06:00 09/27/17 20:44 Intake & Output 09/25/17 09/26/17 09/27/17 09/28/17 23:59 23:59 23:59 23:59 Intake Total 1900 2104.8 1580 50 Output Total 910 1270 1175 300 Balance 990 834.8 405 -250 Weight 179 lb 8 oz 179 lb 12.8 oz 188 lb 9.6 oz 191 lb 3.2 oz Neck: Supple Negative JVD Cardiovascular: S1 S2 Irregularly Irregular No Murmurs Respiratory: Bilateral Scattered Rhonchi Gastrointestinal: Soft Benign Normal Bowel Sounds Ext: Edema Labs: CBC, BMP 09/28/17 05:38 09/28/17 05:38 Assessment/Plan ASSESSMENT: 1. Paroxysmal atrial fibrillation [id number] score of 2, currently in sinus rhythm plan to D/C Eliquis as outlined above 2. Acute hypoxic respiratory failure, post extubation, pulmonary infiltrates/ pulmonary edema improving 3. Cavitating pneumonia, MSSA bacteremia, post septic shock no evidence of endocarditis by ALISA criteria 4. Diastolic LV dysfunction with class I-II NYHA congestive heart failure, volume overload, resolved 5. Osteomyelitis T9-T10 discitis 6. Loculated effusion post chest tube insertion, remains in situ 7. History of alcohol dependence 8. Acute renal insufficiency 9. Hypernatremia 10. Anemia PLAN: 1. As outlined above defer intermediate A/C considering his presentation and co- morbidities, and ideal choice would be Coumadin given his renal function 2. Continue PO Lopressor, hemodynamics permitting 3. Continue to hold diuretics considering the above noted Hypernatremia 4. Antibiotics as per ID service Chang Blackwell M.D.
--- NOTE | 2017-09-28 07:38 | PN ---
Physical Exam: 24H Events: yesterday - extubated to venti mask ON- afebrile AM - satting 95-96% on 3L NC; confluent, blanching macular rash on flanks bilaterally despite benadryl, Solu-Medrol 125mg IVP SUBJECTIVE: Patient seen and examined in ICU. Awake, alert, and speaking. No complaints. Asking for ice chips. OBJECTIVE: Vital Signs Period Temp Pulse Resp BP Sys/Jeff Pulse Ox Last 24 Hr 98 F-99.5 F 88-102 18-28 129-163/80-99 99-100 Intake & Output 09/25/17 09/26/17 09/27/17 09/28/17 23:59 23:59 23:59 23:59 Intake Total 1900 2104.8 1580 50 Output Total 910 1270 1175 300 Balance 990 834.8 405 -250 Weight 81.42 kg 81.556 kg 85.548 kg 86.727 kg GENERAL: awake, alert, some dyspnea while speaking EYES: sclera anicteric, conjunctiva clear ENT: oropharynx clear without exudates, moist mucous membranes LUNGS: anterior course breath sounds, L>R rhonchi, R pigtail CT draining minimal serosanginous fluid HEART: rrrr, normal S1/S2 ABDOMEN: Soft, ntnd, no guarding, no rebound : hines EXTREMITIES: 2+ pulses, wwp, 1+ edema in all 4 extremities SKIN: blanching, confluent macular rash on flanks bilaterally; R anterior norris dermatitis CBC, BMP 09/28/17 05:38 09/28/17 05:38 Hepatic Panel Direct Bilirubin 1.8 mg/dL (0.0-0.2) H D 09/09/17 05:00 Total Bilirubin 0.5 mg/dL (0.2-1.0) 09/28/17 05:38 AST 41 U/L (15-37) H D 09/28/17 05:38 ALT < 6 U/L (12-78) L D 09/28/17 05:38 Alkaline Phosphatase 160 U/L (45-117) H 09/28/17 05:38 Albumin 1.8 g/dl (3.4-5.0) L 09/28/17 05:38 Ca - 8.5 Active Medications Acetaminophen (Tylenol -) 650 mg NR Q6H PRN PRN Reason: FEVER OR PAIN Last Admin: 09/16/17 18:27 Dose: 650 mg Albuterol/Ipratropium (Duoneb -) 1 amp NEB Q6H PRN PRN Reason: SHORTNESS OF BREATH Last Admin: 09/23/17 19:39 Dose: 1 amp Apixaban (Eliquis -) 2.5 mg GT BID [facility] Last Admin: 09/27/17 21:54 Dose: Not Given Chlorhexidine Gluconate (Peridex -) 15 ml MM BID [facility] Last Admin: 09/27/17 21:55 Dose: Not Given Ferrous Sulfate (Feosol -) 325 mg PO DAILY [facility] Last Admin: 09/27/17 10:40 Dose: 325 mg Folic Acid (Folic Acid -) 1 mg PO DAILY [facility] Last Admin: 09/27/17 10:40 Dose: 1 mg Cefazolin Sodium (Ancef 1gm Ivpb (Pre-Docked)) 50 mls @ 100 mls/hr IVPB Q8H-IV [facility] Last Admin: 09/28/17 01:04 Dose: 100 mls/hr Famotidine/Sodium Chloride (Pepcid 20 Mg Premixed Ivpb -) 20 mg in 50 mls @ 100 mls/hr IVPB BID [facility] Metoprolol Tartrate (Lopressor -) 25 mg NGT BID [facility] Last Admin: 09/27/17 21:54 Dose: Not Given Metoprolol Tartrate (Lopressor Injection -) 5 mg IVPUSH Q4H PRN PRN Reason: HYPERTENSION Multivitamins/Minerals (Theragran-M) 1 each PO DAILY [facility] Last Admin: 09/27/17 10:42 Dose: 1 each Mupirocin (Bactroban 2% Cream -) 1 applic TP BID [facility] Last Admin: 09/27/17 21:55 Dose: 1 applic Sevelamer Carbonate (Renvela -) 800 mg PO TIDCM [facility] Last Admin: 09/27/17 18:14 Dose: Not Given Thiamine HCl (Vitamin B1 -) 100 mg PO DAILY [facility] Last Admin: 09/27/17 10:40 Dose: 100 mg ASSESSMENT/PLAN: 66yo man with PMH of EtOH abuse and HTN who is admitted (08/31) for acute hypoxic respiratory failure requiring mechanical ventilation, extubated yesterday. Persistent cavitary PNA with loculated effusions bilaterally, R pigtail CT with minimal drainage, and acute thoracic osteomyletitis (T9-T10). Renal functioning worsening (BUN/Cr 105/5.4) despite maintaining good UOP. New bilataral flank rash noted, could be due to medications vs worsening kidney function. #ARF, 09/27 FeNa 3.6% c/w intrinsic process (AIN vs ATN) -Renal following, considering HD tomorrow if worsens -f/u Urine eos given new rash (09/01 was negative) -Continue Ferrous Sulfate 325 mg PO DAILY and Sevelamer Carbonate (Renvela) 800 mg PO TID -Strict I&Os, hines, Renal dose for meds #acute hypoxic respiratory failure -O2 therapy as needed to maintain spO2>90% -R chest tube draining to water seal #sepsis 2/2 cavitary PNA, acute osteomyelitis -ID following, long-term abx needed for acute osteomyelitis (at least 6 wks) -Cefazolin 1gm Q8H (started 09/16) #GI bleed, likely 2/2 trauma from rectal tube, s/p 3Ux PRBCs, Hgb stable, no further bleeds -Trend H&H, transfuse Hgb<7 #Afib - CHADVASC score of 2 indicating AC -Cardiology following, can add PO amio for rate control PRN (currently in NSR) -D/c Eliquis given current co-morbidities #suspected chronic diastolic heart failure - ECHO 09/02/2017 probable preserved LV function, but can't R/O regional wall motion abnormality -Metoprol 25mg PO BID #EtOH abuse -Monitor for signs of EtOH withdrawal -MVI, thiamine 100mg PO qd, folic acid 1mg PO daily #FEN -Hold IVFs -lyte abnormalities noted, Renal considering HD -NPO except for meds pending bedside swallow eval #PPX -Heparin 5000U SQ TID -GI - pepcid 20mg IV BID #Dispo: continue ICU monitoring FULL code d/w Dr. Akbar Salter MD PGY-1 Visit type - Emergency Visit Emergency Visit: No - New Patient This patient is new to me today: No - Critical Care Critical Care patient: Yes Total Critical Care Time (in minutes): 35 Critical Care Statement: The care of this patient involved high complexity decision making to prevent further life threatening deterioration of the patient 's condition and/or to evaluate & treat vital organ system(s) failure or risk of failure.
--- NOTE | 2017-09-28 09:23 | PN ---
Progress Note, Physician History of Present Illness: Remains extubated Breathing non-labored No complaints offerred Afebrile Worsening renal function noted - Current Medication List Current Medications: Active Medications Acetaminophen (Tylenol -) 650 mg NR Q6H PRN PRN Reason: FEVER OR PAIN Last Admin: 09/16/17 18:27 Dose: 650 mg Albuterol/Ipratropium (Duoneb -) 1 amp NEB Q6H PRN PRN Reason: SHORTNESS OF BREATH Last Admin: 09/23/17 19:39 Dose: 1 amp Chlorhexidine Gluconate (Peridex -) 15 ml MM BID [facility] Last Admin: 09/27/17 21:55 Dose: Not Given Ferrous Sulfate (Feosol -) 325 mg PO DAILY [facility] Last Admin: 09/27/17 10:40 Dose: 325 mg Folic Acid (Folic Acid -) 1 mg PO DAILY [facility] Last Admin: 09/27/17 10:40 Dose: 1 mg Cefazolin Sodium (Ancef 1gm Ivpb (Pre-Docked)) 50 mls @ 100 mls/hr IVPB Q8H-IV [facility] Last Admin: 09/28/17 01:04 Dose: 100 mls/hr Famotidine/Sodium Chloride (Pepcid 20 Mg Premixed Ivpb -) 20 mg in 50 mls @ 100 mls/hr IVPB BID [facility] Metoprolol Tartrate (Lopressor -) 25 mg NGT BID [facility] Last Admin: 09/27/17 21:54 Dose: Not Given Metoprolol Tartrate (Lopressor Injection -) 5 mg IVPUSH Q4H PRN PRN Reason: HYPERTENSION Multivitamins/Minerals (Theragran-M) 1 each PO DAILY [facility] Last Admin: 09/27/17 10:42 Dose: 1 each Mupirocin (Bactroban 2% Cream -) 1 applic TP BID [facility] Last Admin: 09/27/17 21:55 Dose: 1 applic Sevelamer Carbonate (Renvela -) 800 mg PO TIDCM [facility] Last Admin: 09/27/17 18:14 Dose: Not Given Thiamine HCl (Vitamin B1 -) 100 mg PO DAILY [facility] Last Admin: 09/27/17 10:40 Dose: 100 mg - Objective Vital Signs: Vital Signs Temperature 99.5 F 09/28/17 06:00 Pulse Rate 88 09/28/17 08:00 Respiratory Rate 18 09/28/17 08:00 Blood Pressure 146/70 09/28/17 08:00 O2 Sat by Pulse Oximetry (%) 100 09/27/17 20:44 Constitutional: Yes: No Distress Eyes: Yes: Conjunctiva Clear Cardiovascular: Yes: Regular Rate and Rhythm, S1, S2 Respiratory: Yes: Diminished Gastrointestinal: Yes: Normal Bowel Sounds, Soft. No: Tenderness Edema: Yes Labs: CBC, BMP 09/28/17 05:38 09/28/17 05:38 INR, PTT INR 1.12 (0.82-1.09) 09/26/17 06:10 Assessment/Plan MSSA bacteremia, likely skin source Vertebral osteo T9T10 Resp failure Possible aspiration pneumonia Hx ETOH abuse Continue cefazolin; adjust for worsening renal function Ventilatory support Will need skilled nursing (6-8w) anti- staph treatment
[2017-09-28] MEDS: SEVELAMER CARBONATE 800 MG TAB (FP) PO SCH ×3 (09:29→17:49)
[2017-09-28] MEDS: FAMOTIDINE 20 MG/50 ML IVPB 20 MG/50 ML MG IVPB SCH ×2 (09:29→22:48)
[2017-09-28] MEDS: THIAMINE HCL 100 MG TABLET (FP) PO SCH (09:30)
[2017-09-28] MEDS: FOLIC ACID 1 MG TABLET (FP) PO SCH (09:30)
[2017-09-28] MEDS: MULTIVITAMINS THER W-MINERALS COMBO TABLET (FP) PO SCH (09:30)
[2017-09-28] MEDS: CHLORHEXIDINE GLUCONATE 0.12% 15ML CUP MM SCH ×2 (09:30→22:54)
[2017-09-28] MEDS: FERROUS SO4 325 MG TABLET (FP) PO SCH (09:30)
[2017-09-28] MEDS: METOPROLOL TARTRATE 25 MG TABLET (FP) NGT SCH ×2 (09:30→22:48)
[2017-09-28] MEDS: MUPIROCIN CA 2% TOPICAL CREAM 15 GM TUBE TP SCH ×2 (09:31→22:54)
--- NOTE | 2017-09-28 09:53 | PN ---
Progress Note (short form) - Note Progress Note: Renal Pt is awake was extubated, appears comfortable Last Vital Signs Temp Pulse Resp BP Pulse Ox 99.5 F 88 18 146/70 100 09/28/17 06:00 09/28/17 08:00 09/28/17 08:00 09/28/17 08:00 09/27/17 20:44 heent has a rash around neck lungs rhonchi on left cvs s1s2 rr abd soft, ext +edema neuro appears somewhat encephalopathic making urine CBC, BMP 09/28/17 05:38 09/28/17 05:38 Current Medications Generic Name Dose Route Start Last Admin Trade Name Freq PRN Reason Stop Dose Admin Acetaminophen 650 mg 09/07/17 05:53 09/16/17 18:27 Tylenol - NR 650 mg Q6H PRN Administration FEVER OR PAIN Albuterol/Ipratropium 1 amp 09/19/17 14:55 09/23/17 19:39 Duoneb - NEB 1 amp Q6H PRN Administration SHORTNESS OF BREATH Chlorhexidine Gluconate 15 ml 09/08/17 12:30 09/28/17 09:30 Peridex - MM 15 ml BID [facility] Administration Ferrous Sulfate 325 mg 09/05/17 12:00 09/28/17 09:30 Feosol - PO 325 mg DAILY [facility]INGS Administration Folic Acid 1 mg 09/02/17 10:00 09/28/17 09:30 Folic Acid - PO 1 mg DAILY [facility] Administration Heparin Sodium (Porcine) 5,000 unit 09/28/17 09:45 Heparin - SQ TID [facility] Cefazolin Sodium 50 mls @ 100 mls/hr 09/16/17 10:00 09/28/17 01:04 Ancef 1gm Ivpb (Pre-Docked) IVPB 100 mls/hr Q8H-IV [facility] Administration Famotidine/Sodium Chloride 20 mg in 50 mls @ 100 mls/hr 09/28/17 10:00 09:29 Pepcid 20 Mg Premixed Ivpb - IVPB 100 mls/hr BID [facility] Administration Metoprolol Tartrate 25 mg 09/25/17 13:45 09/28/17 09:30 Lopressor - NGT 25 mg BID [facility] Administration Metoprolol Tartrate 5 mg 09/28/17 05:45 Lopressor Injection - IVPUSH Q4H PRN HYPERTENSION Multivitamins/Minerals 1 each 09/02/17 10:00 09/28/17 09:30 Theragran-M PO 1 each DAILY [facility] Administration Mupirocin 1 applic 09/23/17 10:00 09/28/17 09:31 Bactroban 2% Cream - TP 1 applic BID [facility] Administration Sevelamer Carbonate 800 mg 09/12/17 17:30 09/28/17 09:29 Renvela - PO 800 mg TIDCM [facility] Administration Thiamine HCl 100 mg 09/02/17 10:00 09/28/17 09:30 Vitamin B1 - PO 100 mg DAILY [facility] Administration Impression 1. ALEXANDRA- unclear as to etiology, perhaps due to AIN given appearance of rash and slowly progressive nature of alexandra 2. fluid overload 3. hypoalbuminemia 4. respiratory failure requiring intubation 5. anemia 6. etoh abuse 7. fevers 8. hypokalemia 9. pleural effusion 10. hypernatremia 11. GI bleed Plan -would consider discontinuation of ancef - renal sono -will monitor today, if worsened will consider HD tomorrow - monitor urine output MV
[2017-09-28] MEDS: CEFAZOLIN 1 GM in DEXTROSE 5%-WATER - 50 ML IVPB SCH (10:00)
[2017-09-28] MEDS: HEPARIN NA (PORCINE) 5,000 UNITS/ML 1ML VIAL SQ SCH ×3 (10:00→22:48)
--- NOTE | 2017-09-28 11:20 | PN ---
Progress Note (short form) - Note Progress Note: PULMONARY/CCM Pt seen and examined in the ICU. Extubated yesterday, now on nasal cannula. No fevers recorded. Last Vital Signs Temp Pulse Resp BP Pulse Ox 98.9 F 72 22 141/100 100 09/28/17 10:00 09/28/17 10:00 09/28/17 10:00 09/28/17 10:00 09/28/17 10:00 Intake & Output 09/25/17 09/26/17 09/27/17 09/28/17 23:59 23:59 23:59 23:59 Intake Total 1900 2104.8 1580 50 Output Total 910 1270 1175 300 Balance 990 834.8 405 -250 Weight 179 lb 8 oz 179 lb 12.8 oz 188 lb 9.6 oz 191 lb 3.2 oz Gen: mildly tachypneic at rest Heart: RRR Lung: scattered rhonchi Abd: soft, nontender Ext: + edema CBC, BMP 09/28/17 05:38 09/28/17 05:38 Active Medications Acetaminophen (Tylenol -) 650 mg NR Q6H PRN PRN Reason: FEVER OR PAIN Last Admin: 09/16/17 18:27 Dose: 650 mg Albuterol/Ipratropium (Duoneb -) 1 amp NEB Q6H PRN PRN Reason: SHORTNESS OF BREATH Last Admin: 09/23/17 19:39 Dose: 1 amp Chlorhexidine Gluconate (Peridex -) 15 ml MM BID [facility] Last Admin: 09/28/17 09:30 Dose: 15 ml Ferrous Sulfate (Feosol -) 325 mg PO DAILY [facility] Last Admin: 09/28/17 09:30 Dose: 325 mg Folic Acid (Folic Acid -) 1 mg PO DAILY [facility] Last Admin: 09/28/17 09:30 Dose: 1 mg Heparin Sodium (Porcine) (Heparin -) 5,000 unit SQ TID [facility] Famotidine/Sodium Chloride (Pepcid 20 Mg Premixed Ivpb -) 20 mg in 50 mls @ 100 mls/hr IVPB BID [facility] Last Admin: 09/28/17 09:29 Dose: 100 mls/hr Cefazolin Sodium 1 gm/ (Dextrose) 50 mls @ 100 mls/hr IVPB Q24H [facility] Metoprolol Tartrate (Lopressor -) 25 mg NGT BID [facility] Last Admin: 09/28/17 09:30 Dose: 25 mg Metoprolol Tartrate (Lopressor Injection -) 5 mg IVPUSH Q4H PRN PRN Reason: HYPERTENSION Multivitamins/Minerals (Theragran-M) 1 each PO DAILY [facility] Last Admin: 09/28/17 09:30 Dose: 1 each Mupirocin (Bactroban 2% Cream -) 1 applic TP BID [facility] Last Admin: 09/28/17 09:31 Dose: 1 applic Sevelamer Carbonate (Renvela -) 800 mg PO TIDCM [facility] Last Admin: 09/28/17 09:29 Dose: 800 mg Thiamine HCl (Vitamin B1 -) 100 mg PO DAILY [facility] Last Admin: 09/28/17 09:30 Dose: 100 mg A/P Acute Hypoxic Respiratory Failure Pneumonia MSSA Bacteremia Loculated Pleural Effusions LV Diastolic Dysfunction Paroxysmal Atrial Fibrillation Acute Kidney Injury GI Bleed likely from rectal tube/ulcer Acute Blood Loss Anemia - continue antibiotics - hold heparin gtt - protonix - monitor H/H, coags - DNase not formulary, likely would not benefit from intrapleural tPA alone - thoracic surgery f/u - O2 to keep SpO2 >90% - aspiration precautions - DVT prophylaxis - continue ICU monitoring critical care time spent in reviewing chart, evaluating patient and formulating plan 35 min
--- NOTE | 2017-09-28 12:03 | PN ---
Teaching Attending Note Name of Resident: Lydia Salter ATTENDING PHYSICIAN STATEMENT Time of evaluation: 8:35 AM I saw and evaluated the patient. I reviewed the resident's note and discussed the case with the resident. I agree with the resident's findings and plan as documented. SUBJECTIVE: Patient seen and examined, awake and conversant, no pain, asking for ice chips. OBJECTIVE: Vital Signs Period Temp Pulse Resp BP Sys/Jeff Pulse Ox Last 24 Hr 98 F-99.5 F 72-101 18-24 141-163/70-100 100-100 Intake & Output 09/25/17 09/26/17 09/27/17 09/28/17 23:59 23:59 23:59 23:59 Intake Total 1900 2104.8 1580 50 Output Total 910 1270 1175 300 Balance 990 834.8 405 -250 Weight 179 lb 8 oz 179 lb 12.8 oz 188 lb 9.6 oz 191 lb 3.2 oz General; extubated, sitting in bed, slightly tachypneic at rest CVS:S1S2 irregular Chest: limited exam, no rales or wheezing abdomen: soft, NT, ND, positive bowel sounds extremities: anasarca, unchanged from yesterday, RLE lesions improving Skin confulent rash over bilateral chest area Home Medication List Medication Instructions Recorded Confirmed Type Unobtainable [Unobtainable] 08/31/17 08/31/17 History Active Medications Generic Name Dose Route Start Last Admin Trade Name Freq PRN Reason Stop Dose Admin Acetaminophen 650 mg 09/07/17 05:53 09/16/17 18:27 Tylenol - NR 650 mg Q6H PRN Administration FEVER OR PAIN Albuterol/Ipratropium 1 amp 09/19/17 14:55 09/23/17 19:39 Duoneb - NEB 1 amp Q6H PRN Administration SHORTNESS OF BREATH Chlorhexidine Gluconate 15 ml 09/08/17 12:30 09/28/17 09:30 Peridex - MM 15 ml BID [facility] Administration Ferrous Sulfate 325 mg 09/05/17 12:00 09/28/17 09:30 Feosol - PO 325 mg DAILY [facility] Administration Folic Acid 1 mg 09/02/17 10:00 09/28/17 09:30 Folic Acid - PO 1 mg DAILY [facility] Administration Heparin Sodium (Porcine) 5,000 unit 09/28/17 09:45 Heparin - SQ TID [facility] Famotidine/Sodium Chloride 20 mg in 50 mls @ 100 mls/hr 09/28/17 10:00 09:29 Pepcid 20 Mg Premixed Ivpb - IVPB 100 mls/hr BID [facility] Administration Cefazolin Sodium 1 gm/ 50 mls @ 100 mls/hr 09/28/17 10:15 Dextrose IVPB Q24H [facility] Metoprolol Tartrate 25 mg 09/25/17 13:45 09/28/17 09:30 Lopressor - NGT 25 mg BID [facility] Administration Metoprolol Tartrate 5 mg 09/28/17 05:45 Lopressor Injection - IVPUSH Q4H PRN HYPERTENSION Multivitamins/Minerals 1 each 09/02/17 10:00 09/28/17 09:30 Theragran-M PO 1 each DAILY [facility] Administration Mupirocin 1 applic 09/23/17 10:00 09/28/17 09:31 Bactroban 2% Cream - TP 1 applic BID [facility] Administration Sevelamer Carbonate 800 mg 09/12/17 17:30 09/28/17 09:29 Renvela - PO 800 mg TIDCM [facility] Administration Thiamine HCl 100 mg 09/02/17 10:00 09/28/17 09:30 Vitamin B1 - PO 100 mg DAILY [facility] Administration Laboratory Results - last 24 hr 09/27/17 09/27/17 09/27/17 13:46 13:46 17:00 WBC RBC Hgb Hct MCV MCH MCHC RDW Plt Count MPV Neutrophils % Lymphocytes % Monocytes % Eosinophils % Basophils % Sodium Potassium Chloride Carbon Dioxide Anion Gap BUN Creatinine Creat Clearance w eGFR Random Glucose Calcium Total Bilirubin AST ALT Alkaline Phosphatase Total Protein Albumin Urine Color Yellow Urine Appearance Cloudy Urine pH 5.0 Ur Specific [place] 1.013 Urine Protein 2+ H Urine Glucose (UA) Negative Urine Ketones Negative Urine Blood 1+ H Urine Nitrite Negative Urine Bilirubin Negative Urine Urobilinogen Negative Ur Leukocyte Esterase Negative Urine WBC (Auto) 16 Urine RBC (Auto) 18 Ur Epithelial Cells Rare Hyaline Casts 3 Urine Mucus Rare Urine Yeast Few Ur Random Sodium 49 Ur Random Potassium 11.1 Ur Random Chloride 33 Urine Creatinine 50.3 09/28/17 09/28/17 05:38 05:38 WBC 11.9 H RBC 3.11 L Hgb 9.1 L Hct 27.0 L MCV 87.0 MCH 29.4 MCHC 33.8 RDW 16.6 H Plt Count 166 MPV 7.5 Neutrophils % 94.5 H D Lymphocytes % 3.6 L D Monocytes % 1.3 L D Eosinophils % 0.3 D Basophils % 0.3 Sodium 146 H Potassium 4.4 D Chloride 114 H Carbon Dioxide 19 L Anion Gap 13 BUN 111 H* Creatinine 5.4 H Creat Clearance w eGFR 10.61 Random Glucose 131 H Calcium 8.5 Total Bilirubin 0.5 AST 41 H D ALT < 6 L D Alkaline Phosphatase 160 H Total Protein 7.6 Albumin 1.8 L Urine Color Urine Appearance Urine pH Ur Specific [place] Urine Protein Urine Glucose (UA) Urine Ketones Urine Blood Urine Nitrite Urine Bilirubin Urine Urobilinogen Ur Leukocyte Esterase Urine WBC (Auto) Urine RBC (Auto) Ur Epithelial Cells Hyaline Casts Urine Mucus Urine Yeast Ur Random Sodium Ur Random Potassium Ur Random Chloride Urine Creatinine ASSESSMENT AND PLAN: -Acute hypoxic respiratory failure -Severe sepsis due to cavitary PNA, MSSA bacteremia, ALISA neg for vegetation -Large right loculated pleural effusion, s/p chest tube -Acute T9-T10 discitis/osteomyelitis -Hematochezia -ARF, from sepsis vs medication related -Acute on chronic anemia, suspect from renal dysfunction, episode of hematochezia suspected from rectal tube/heparin, resolved for now -AFib with RVR recurrent -Rash -Hypokalemia/hypomagnesemia -Hyperphosphatemia -Hypovolumic hypernatremia -Alcohol abuse -Normocytic anemia -Acute transaminitis -Chronic right subdural hematoma Plan: Extubated 09/27, doing well, continue to monitor. NO plan for VATS, Chest tube unclogged, but no drainage noted. Cefazolin, ID input appreciated, atleast 6 weeks antibiotics with likely repeat imaging then, repeat blood cultures sent 09/22, follow up. However now with new rash and ongoing renal dysfunction, unclear if cefazolin contributory, discuss with ID about alternative treatment regimen. No further hematochezia, off heparin drip, eliquis d/diandra by cardiology given ongoing renal dysfunction. Hb ranging 7-8, suspect worsening renal function contributory as well, no further evidence of ongoing bleed. s/p 1unit PRBC 09/26, trend for now. Renal function gradually worsening,creatinine rising, failed fluid challenge. Hypernatremia improved on NG feeds and free water flushes. HD in 24-48 hours per renal, will follow up. Given new rash, check urine eosinophils. On PO metoprolol. Currently with sinus tach, not afib. Replete lytes as needed. Trend LFTs Off NG tube, bedside speech/swallow and resume diet/meds as tolerated. Palliative care input noted. Continue to monitor and address goals of care. Patient able to converse today, confirms full code and ok with dialysis if needed. Patient critical with ongoing multiorgan dsyfunction. total critical care time spent 40 min.
[2017-09-29 06:43] LABS: BASOPHIL 0.7 % (0-2.0); EOSINOPHIL 3.3 % (0-4.5); MCH 28.7 pg (25.7-33.7); MCHC 33.1 g/dl (32.0-35.9); MEAN CELL VOLUME 86.7 fl (80-96); MEAN PLT VOLUME 7.4 fl (7.5-11.1); NEUTROPHILS 76.2 % (42.8-82.8); PLATELET COUNT 193 K/MM3 (134-434)
[2017-09-29] MEDS: HEPARIN NA (PORCINE) 5,000 UNITS/ML 1ML VIAL SQ SCH ×3 (06:44→21:58)
--- NOTE | 2017-09-29 07:13 | PN ---
Progress Note (short form) - Note Progress Note: Chief Compliant: Events noted, notes reviewed, remains extubated, confused and disoriented, sinus rhythm is maintained, HTN noted History of Present Illness: Seen and examined in the ICU. Events noted, notes reviewed, remains extubated, confused and disoriented, sinus rhythm is maintained, HTN noted As outlined in yesterday's note Oumar was D/C and ideally Coumadin is the drug of choice but considering his clinical presentation and co-morbidities including history of alcoholism I do not feel the patient is an appropriate candidate for penitentiary A/C Echocardiography dated 09/02/2017 revealed probable preserved LV function, but can't R/O regional wall motion abnormality - Current Medication List Current Medications Acetaminophen (Tylenol -) 650 mg NR Q6H PRN PRN Reason: FEVER OR PAIN Last Admin: 09/16/17 18:27 Dose: 650 mg Chlorhexidine Gluconate (Peridex -) 15 ml MM BID [facility] Last Admin: 09/28/17 22:54 Dose: 15 ml Ferrous Sulfate (Feosol -) 325 mg PO DAILY [facility] Last Admin: 09/28/17 09:30 Dose: 325 mg Folic Acid (Folic Acid -) 1 mg PO DAILY [facility] Last Admin: 09/28/17 09:30 Dose: 1 mg Heparin Sodium (Porcine) (Heparin -) 5,000 unit SQ TID [facility] Last Admin: 09/29/17 06:44 Dose: 5,000 unit Famotidine/Sodium Chloride (Pepcid 20 Mg Premixed Ivpb -) 20 mg in 50 mls @ 100 mls/hr IVPB BID [facility] Last Admin: 09/28/17 22:48 Dose: 100 mls/hr Cefazolin Sodium 1 gm/ (Dextrose) 50 mls @ 100 mls/hr IVPB Q24H [facility] Last Admin: 09/28/17 10:00 Dose: 100 mls/hr Metoprolol Tartrate (Lopressor -) 25 mg NGT BID [facility] Last Admin: 09/28/17 22:48 Dose: 25 mg Metoprolol Tartrate (Lopressor Injection -) 5 mg IVPUSH Q4H PRN PRN Reason: HYPERTENSION Multivitamins/Minerals (Theragran-M) 1 each PO DAILY [facility] Last Admin: 09/28/17 09:30 Dose: 1 each Mupirocin (Bactroban 2% Cream -) 1 applic TP BID [facility] Last Admin: 09/28/17 22:54 Dose: 1 applic Sevelamer Carbonate (Renvela -) 800 mg PO TIDCM [facility] Last Admin: 09/28/17 17:49 Dose: 800 mg Thiamine HCl (Vitamin B1 -) 100 mg PO DAILY [facility] Last Admin: 09/28/17 09:30 Dose: 100 mg Review of systems: Unable to obtain - Objective Vital Signs: Last Vital Signs Temp Pulse Resp BP Pulse Ox 98.5 F 78 18 154/98 100 09/29/17 06:00 09/29/17 06:00 09/29/17 06:00 09/29/17 06:00 09/28/17 22:00 Intake & Output 09/26/17 09/27/17 09/28/17 09/29/17 23:59 23:59 23:59 23:59 Intake Total 2104.8 1580 270 0 Output Total 1270 8783 275 8200 Balance 834.8 405 -460 -1200 Weight 179 lb 12.8 oz 188 lb 9.6 oz 191 lb 3.2 oz 181 lb 8 oz Neck: Supple Negative JVD Cardiovascular: S1 S2 Regular Rate and Rhythm No Murmurs Respiratory: Bilateral Scattered Rhonchi Gastrointestinal: Soft Benign Normal Bowel Sounds Ext: Edema Labs: CBC, BMP 09/28/17 05:38 09/28/17 05:38 CBC, BMP 09/29/17 05:30 BMP from this AM pending Assessment/Plan ASSESSMENT: 1. Paroxysmal atrial fibrillation [id number] score of 2, currently in sinus rhythm off of Eliquis therapy as outlined above 2. Acute hypoxic respiratory failure, post extubation, pulmonary infiltrates/ pulmonary edema improving 3. Cavitating pneumonia, MSSA bacteremia, post septic shock no evidence of endocarditis by ALISA criteria 4. Diastolic LV dysfunction with class I-II NYHA congestive heart failure, volume overload, resolved 5. Osteomyelitis T9-T10 discitis 6. Loculated effusion post chest tube insertion, remains in situ 7. History of alcohol dependence 8. Acute renal insufficiency 9. Hypernatremia 10. Anemia PLAN: 1. 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 Continue PO Lopressor and titrate as tolerated, hemodynamics permitting 3. Continue to hold diuretics considering the above noted Hypernatremia 4. If BP remains elevated recommend the addition of Norvasc 5. Antibiotics as per ID service Chang Blackwell M.D.
[2017-09-29 07:23] LABS: ALBUMIN 1.9 g/dl (3.4-5.0); ALK PHOS 127 U/L (45-117); ANION GAP 14 (8-16); BILIRUBIN,TOTAL 0.4 mg/dL (0.2-1.0); CALCIUM 7.8 mg/dL (8.5-10.1); CO2 20 mmol/L (21-32); CREATININE 5.5 mg/dL (0.7-1.3); GLUCOSE,RANDOM 105 mg/dL (74-106); MAGNESIUM 2.3 mg/dL (1.8-2.4); PHOSPHOROUS 5.2 mg/dL (2.5-4.9); SGOT/AST 30 U/L (15-37); SGPT/ALT < 6 U/L (12-78); TOT PROT 7.4 g/dl (6.4-8.2)
[2017-09-29] MEDS ORDERED: PT OWN MED DRAWER 7, Y5N ONE (07:40)
[2017-09-29] MEDS: SEVELAMER CARBONATE 800 MG TAB (FP) PO SCH ×3 (09:17→18:44)
[2017-09-29] MEDS: FAMOTIDINE 20 MG/50 ML IVPB 20 MG/50 ML MG IVPB SCH ×2 (09:17→21:57)
[2017-09-29] MEDS: FERROUS SO4 325 MG TABLET (FP) PO SCH (09:17)
[2017-09-29] MEDS: FOLIC ACID 1 MG TABLET (FP) PO SCH (09:17)
[2017-09-29] MEDS: MULTIVITAMINS THER W-MINERALS COMBO TABLET (FP) PO SCH (09:18)
[2017-09-29] MEDS: CEFAZOLIN 1 GM in DEXTROSE 5%-WATER - 50 ML IVPB SCH (09:18)
[2017-09-29] MEDS: CHLORHEXIDINE GLUCONATE 0.12% 15ML CUP MM SCH ×2 (09:18→21:59)
[2017-09-29] MEDS: THIAMINE HCL 100 MG TABLET (FP) PO SCH (09:18)
[2017-09-29] MEDS: METOPROLOL TARTRATE 25 MG TABLET (FP) NGT SCH ×2 (09:21→22:00)
[2017-09-29] MEDS: MUPIROCIN CA 2% TOPICAL CREAM 15 GM TUBE TP SCH ×2 (09:28→21:59)
[2017-09-29] MEDS ORDERED: VANCOMYCIN 1,000 MG in DEXTROSE 5%-WATER - 250 ML IVPB ONE (10:00)
--- NOTE | 2017-09-29 10:00 | PN ---
Progress Note, Physician History of Present Illness: Remains extubated Awake, alert Breathing non-labored on nasal cannula No complaints offerred Afebrile Worsening renal function noted - Current Medication List Current Medications: Active Medications Acetaminophen (Tylenol -) 650 mg NR Q6H PRN PRN Reason: FEVER OR PAIN Last Admin: 09/16/17 18:27 Dose: 650 mg Chlorhexidine Gluconate (Peridex -) 15 ml MM BID [facility] Last Admin: 09/29/17 09:18 Dose: 15 ml Ferrous Sulfate (Feosol -) 325 mg PO DAILY [facility] Last Admin: 09/29/17 09:17 Dose: 325 mg Folic Acid (Folic Acid -) 1 mg PO DAILY [facility] Last Admin: 09/29/17 09:17 Dose: 1 mg Heparin Sodium (Porcine) (Heparin -) 5,000 unit SQ TID [facility] Last Admin: 09/29/17 06:44 Dose: 5,000 unit Famotidine/Sodium Chloride (Pepcid 20 Mg Premixed Ivpb -) 20 mg in 50 mls @ 100 mls/hr IVPB BID [facility] Last Admin: 09/29/17 09:17 Dose: 100 mls/hr Cefazolin Sodium 1 gm/ (Dextrose) 50 mls @ 100 mls/hr IVPB Q24H [facility] Last Admin: 09/29/17 09:18 Dose: 100 mls/hr Metoprolol Tartrate (Lopressor -) 25 mg NGT BID [facility] Last Admin: 09/29/17 09:21 Dose: 25 mg Metoprolol Tartrate (Lopressor Injection -) 5 mg IVPUSH Q4H PRN PRN Reason: HYPERTENSION Multivitamins/Minerals (Theragran-M) 1 each PO DAILY [facility] Last Admin: 09/29/17 09:18 Dose: 1 each Mupirocin (Bactroban 2% Cream -) 1 applic TP BID [facility] Last Admin: 09/29/17 09:28 Dose: Not Given Sevelamer Carbonate (Renvela -) 800 mg PO TIDCM [facility] Last Admin: 09/29/17 09:17 Dose: 800 mg Thiamine HCl (Vitamin B1 -) 100 mg PO DAILY [facility] Last Admin: 09/29/17 09:18 Dose: 100 mg - Objective Vital Signs: Vital Signs Temperature 98.5 F 09/29/17 06:00 Pulse Rate 78 09/29/17 07:36 Respiratory Rate 18 11/12/17 07:36 Blood Pressure 154/92 09/29/17 07:36 O2 Sat by Pulse Oximetry (%) 100 09/29/17 09:00 Constitutional: Yes: No Distress, Obese Cardiovascular: Yes: Regular Rate and Rhythm, S1, S2 Respiratory: Yes: Diminished Gastrointestinal: Yes: Normal Bowel Sounds, Soft, Abdomen, Obese. No: Tenderness Edema: Yes Labs: CBC, BMP 09/29/17 05:30 09/29/17 05:30 INR, PTT INR 1.12 (0.82-1.09) 09/26/17 06:10 Assessment/Plan MSSA bacteremia, likely skin source Vertebral osteo T9T10 S/P Resp failure Possible aspiration pneumonia Hx ETOH abuse Azotemia Work up for AIN in progress (? secondary to B-lactam) Will substitute vancomycin for now, adjusted for renal failure Will need senior care (6-8w) anti- staph treatment
--- NOTE | 2017-09-29 10:24 | PN ---
Progress Note (short form) - Note Progress Note: Renal Pt is awake appears comfortable Last Vital Signs Temp Pulse Resp BP Pulse Ox 98.5 F 78 18 154/92 100 09/29/17 06:00 09/29/17 07:36 09/29/17 07:36 09/29/17 07:36 09/29/17 09:00 heent has a rash around neck lungs rhonchi on left cvs s1s2 rr abd soft, ext + trace edema neuro a+o, making urine CBC, BMP 09/29/17 05:30 09/29/17 05:30 Current Medications Generic Name Dose Route Start Last Admin Trade Name Freq PRN Reason Stop Dose Admin Acetaminophen 650 mg 09/07/17 05:53 09/16/17 18:27 Tylenol - NR 650 mg Q6H PRN Administration FEVER OR PAIN Chlorhexidine Gluconate 15 ml 09/08/17 12:30 09/29/17 09:18 Peridex - MM 15 ml BID [facility] Administration Ferrous Sulfate 325 mg 09/05/17 12:00 09/29/17 09:17 Feosol - PO 325 mg DAILY [facility] Administration Folic Acid 1 mg 09/02/17 10:00 09/29/17 09:17 Folic Acid - PO 1 mg DAILY [facility] Administration Heparin Sodium (Porcine) 5,000 unit 09/28/17 09:45 09/29/17 06:44 Heparin - SQ 5,000 unit TID [facility] Administration Famotidine/Sodium Chloride 20 mg in 50 mls @ 100 mls/hr 09/28/17 10:00 09:17 Pepcid 20 Mg Premixed Ivpb - IVPB 100 mls/hr BID [facility] Administration Vancomycin HCl 1,000 mg/ 250 mls @ 250 mls/hr 09/29/17 10:00 Dextrose IVPB 09/29/17 10:59 ONCE ONE Protocol Metoprolol Tartrate 25 mg 09/25/17 13:45 09/29/17 09:21 Lopressor - NGT 25 mg BID [facility] Administration Metoprolol Tartrate 5 mg 09/28/17 05:45 Lopressor Injection - IVPUSH Q4H PRN HYPERTENSION Multivitamins/Minerals 1 each 09/02/17 10:00 09/29/17 09:18 Theragran-M PO 1 each DAILY [facility] Administration Mupirocin 1 applic 09/23/17 10:00 09/29/17 09:28 Bactroban 2% Cream - TP Not Given BID [facility] Sevelamer Carbonate 800 mg 09/12/17 17:30 09/29/17 09:17 Renvela - PO 800 mg TIDCM [facility] Administration Thiamine HCl 100 mg 09/02/17 10:00 09/29/17 09:18 Vitamin B1 - PO 100 mg DAILY [facility] Administration Impression 1. ALEXANDRA- unclear as to etiology, perhaps due to AIN given appearance of rash and slowly progressive nature of alexandra 2. fluid overload 3. hypoalbuminemia 4. respiratory failure requiring intubation 5. anemia 6. etoh abuse 7. fevers 8. hypokalemia 9. pleural effusion 10. hypernatremia 11. GI bleed 12. pleural effusions Plan renal; sono reviewed- no hydro, normal size kidneys vanco started and ancef held will order some fluid to see if renal function improves. Note hypernatremia and high BUN to creat ratio MV
[2017-09-29] MEDS: SODIUM CHLORIDE 0.45% 1,000 ML IV SCH (10:34)
--- NOTE | 2017-09-29 11:26 | PN ---
Teaching Attending Note Name of Resident: Lydia Salter ATTENDING PHYSICIAN STATEMENT Time of evaluation: 9:00 AM I saw and evaluated the patient. I reviewed the resident's note and discussed the case with the resident. I agree with the resident's findings and plan as documented. SUBJECTIVE: Patient seen and examined. mildly tachypneic but overall comfortable. Asking to eat an apple. No other complaints. OBJECTIVE: Vital Signs Period Temp Pulse Resp BP Sys/Jeff Pulse Ox Last 24 Hr 98 F-98.7 F 76-82 18-24 136-154/76-98 100-100 Intake & Output 09/26/17 09/27/17 09/28/17 09/29/17 23:59 23:59 23:59 23:59 Intake Total 2104.8 1580 270 0 Output Total 1270 3365 376 6413 Balance 834.8 405 -460 -1200 Weight 179 lb 12.8 oz 188 lb 9.6 oz 191 lb 3.2 oz 181 lb 8 oz General: sitting in bed on nasal cannula, talking in whispers, mildly tachypneic but more comfortable than yesterday CVS: S1S2 irregular Chest: scattered coarse rales Abdomen: soft, NT, ND, positive bowel sounds extremities: unchanged edema, Right leg lesions stable Skin: blanching confluent macula rash flanks bilaterally Home Medication List Medication Instructions Recorded Confirmed Type Unobtainable [Unobtainable] 08/31/17 08/31/17 History Active Medications Generic Name Dose Route Start Last Admin Trade Name Freq PRN Reason Stop Dose Admin Acetaminophen 650 mg 09/07/17 05:53 09/16/17 18:27 Tylenol - NR 650 mg Q6H PRN Administration FEVER OR PAIN Chlorhexidine Gluconate 15 ml 09/08/17 12:30 09/29/17 09:18 Peridex - MM 15 ml BID [facility] Administration Ferrous Sulfate 325 mg 09/05/17 12:00 09/29/17 09:17 Feosol - PO 325 mg DAILY [facility] Administration Folic Acid 1 mg 09/02/17 10:00 09/29/17 09:17 Folic Acid - PO 1 mg DAILY [facility] Administration Heparin Sodium (Porcine) 5,000 unit 09/28/17 09:45 09/29/17 06:44 Heparin - SQ 5,000 unit TID [facility] Administration Famotidine/Sodium Chloride 20 mg in 50 mls @ 100 mls/hr 09/28/17 10:00 09:17 Pepcid 20 Mg Premixed Ivpb - IVPB 100 mls/hr BID [facility] Administration Sodium Chloride 1,000 mls @ 75 mls/hr 09/29/17 10:30 09/29/17 10:34 1/2 Normal Saline IV 75 mls/hr ASDIR [facility] Administration Metoprolol Tartrate 25 mg 09/25/17 13:45 09/29/17 09:21 Lopressor - NGT 25 mg BID [facility] Administration Metoprolol Tartrate 5 mg 09/28/17 05:45 Lopressor Injection - IVPUSH Q4H PRN HYPERTENSION Multivitamins/Minerals 1 each 09/02/17 10:00 09/29/17 09:18 Theragran-M PO 1 each DAILY [facility] Administration Mupirocin 1 applic 09/23/17 10:00 09/29/17 09:28 Bactroban 2% Cream - TP Not Given BID [facility] Sevelamer Carbonate 800 mg 09/12/17 17:30 09/29/17 09:17 Renvela - PO 800 mg TIDCM [facility] Administration Thiamine HCl 100 mg 09/02/17 10:00 09/29/17 09:18 Vitamin B1 - PO 100 mg DAILY [facility] Administration Laboratory Results - last 24 hr 09/29/17 09/29/17 05:30 05:30 WBC 13.0 H RBC 2.79 L Hgb 8.0 L D Hct 24.2 L MCV 86.7 MCH 28.7 MCHC 33.1 RDW 16.0 H Plt Count 193 MPV 7.4 L Neutrophils % 76.2 Lymphocytes % 9.8 D Monocytes % 10.0 D Eosinophils % 3.3 D Basophils % 0.7 Sodium 149 H Potassium 3.3 L D Chloride 115 H Carbon Dioxide 20 L Anion Gap 14 BUN 135 H* D Creatinine 5.5 H Creat Clearance w eGFR 10.39 Random Glucose 105 Calcium 7.8 L Phosphorus 5.2 H D Magnesium 2.3 Total Bilirubin 0.4 AST 30 D ALT < 6 L Alkaline Phosphatase 127 H D Total Protein 7.4 Albumin 1.9 L ASSESSMENT AND PLAN: -Acute hypoxic respiratory failure -Severe sepsis due to cavitary PNA, MSSA bacteremia, ALISA neg for vegetation -Large right loculated pleural effusion, s/p chest tube -Aspiration risk -Acute T9-T10 discitis/osteomyelitis -Hematochezia -ARF, from sepsis related ATN vs medication related, ?AIN -Acute on chronic anemia, suspect from renal dysfunction, episode of hematochezia suspected from rectal tube/heparin, resolved -AFib with RVR recurrent -Rash, ?medication induced from Cefazolin -Hypokalemia/hypomagnesemia -Hyperphosphatemia -Hypovolumic hypernatremia -Alcohol abuse -Normocytic anemia -Acute transaminitis -Chronic right subdural hematoma Plan: Extubated 09/27, doing well, continue to monitor. NO plan for VATS, Chest tube unclogged, but no drainage noted. Coughing/choking concerns with pO intake, NPO for now, Speech/swallow eval/MBS. Aspiration precautions. Cefazolin changed to vanco renal dosing today by ID given rash and concerns for AIN, atleast 6 weeks antibiotics with likely repeat imaging then, repeat blood cultures sent 09/22, follow up. Renal function gradually worsening,creatinine rising, failed fluid challenge. Hypernatremia recurrent now with minimal PO intake, Renal input noted. Placed on 1/2NS at 75 by renal. Follow up for HD plans. Follow up urine eosinophils No further hematochezia, off heparin drip, eliquis d/diandra by cardiology given ongoing renal dysfunction. Hb ranging 7-8, suspect worsening renal function contributory as well, no further evidence of ongoing bleed. s/p 1 unit PRBC 09/26, trend for now. On PO metoprolol. Currently with sinus tach, not afib. Replete lytes as needed. Trend LFTs Aspiration precautions. Palliative care input noted. Continue to monitor and address goals of care. Patient confirmed full code and ok with dialysis if needed. Patient critical with ongoing multiorgan dsyfunction. Total critical care time spent 40 min.
--- NOTE | 2017-09-29 12:35 | PN ---
Progress Note (short form) - Note Progress Note: PULMONARY/CCM Pt seen and examined in the ICU. More alert, awake today. No fevers recorded. Last Vital Signs Temp Pulse Resp BP Pulse Ox 98.4 F 80 18 157/93 100 09/29/17 10:53 09/29/17 12:00 09/29/17 10:53 09/29/17 12:00 09/29/17 09:00 Intake & Output 09/26/17 09/27/17 09/28/17 09/29/17 23:59 23:59 23:59 23:59 Intake Total 2104.8 1580 270 0 Output Total 1270 5720 232 3476 Balance 834.8 405 -460 -1200 Weight 179 lb 12.8 oz 188 lb 9.6 oz 191 lb 3.2 oz 181 lb 8 oz Gen: mildly tachypneic at rest Heart: RRR Lung: scattered rhonchi Abd: soft, nontender Ext: + edema CBC, BMP 09/29/17 05:30 09/29/17 05:30 Active Medications Acetaminophen (Tylenol -) 650 mg NR Q6H PRN PRN Reason: FEVER OR PAIN Last Admin: 09/16/17 18:27 Dose: 650 mg Chlorhexidine Gluconate (Peridex -) 15 ml MM BID [facility] Last Admin: 09/29/17 09:18 Dose: 15 ml Ferrous Sulfate (Feosol -) 325 mg PO DAILY [facility] Last Admin: 09/29/17 09:17 Dose: 325 mg Folic Acid (Folic Acid -) 1 mg PO DAILY [facility] Last Admin: 09/29/17 09:17 Dose: 1 mg Heparin Sodium (Porcine) (Heparin -) 5,000 unit SQ TID [facility] Last Admin: 09/29/17 06:44 Dose: 5,000 unit Famotidine/Sodium Chloride (Pepcid 20 Mg Premixed Ivpb -) 20 mg in 50 mls @ 100 mls/hr IVPB BID [facility] Last Admin: 09/29/17 09:17 Dose: 100 mls/hr Sodium Chloride (1/2 Normal Saline) 1,000 mls @ 75 mls/hr IV ASDIR [facility] Last Admin: 09/29/17 10:34 Dose: 75 mls/hr Metoprolol Tartrate (Lopressor -) 25 mg NGT BID [facility] Last Admin: 09/29/17 09:21 Dose: 25 mg Metoprolol Tartrate (Lopressor Injection -) 5 mg IVPUSH Q4H PRN PRN Reason: HYPERTENSION Multivitamins/Minerals (Theragran-M) 1 each PO DAILY [facility] Last Admin: 09/29/17 09:18 Dose: 1 each Mupirocin (Bactroban 2% Cream -) 1 applic TP BID [facility] Last Admin: 09/29/17 09:28 Dose: Not Given Sevelamer Carbonate (Renvela -) 800 mg PO TIDCM [facility] Last Admin: 09/29/17 09:17 Dose: 800 mg Thiamine HCl (Vitamin B1 -) 100 mg PO DAILY [facility] Last Admin: 09/29/17 09:18 Dose: 100 mg A/P Acute Hypoxic Respiratory Failure Pneumonia MSSA Bacteremia Loculated Pleural Effusions LV Diastolic Dysfunction Paroxysmal Atrial Fibrillation Acute Kidney Injury GI Bleed likely from rectal tube/ulcer Acute Blood Loss Anemia - IVF - monitor urine output, creatinine - may need HD - continue antibiotics - holding heparin gtt - protonix - monitor H/H, coags - DNase not formulary, likely would not benefit from intrapleural tPA alone - thoracic surgery f/u - O2 to keep SpO2 >90% - aspiration precautions - DVT prophylaxis - continue ICU monitoring critical care time spent in reviewing chart, evaluating patient and formulating plan 35 min
[2017-09-30] MEDS: SODIUM CHLORIDE 0.45% 1,000 ML IV SCH (04:06)
[2017-09-30] MEDS: HEPARIN NA (PORCINE) 5,000 UNITS/ML 1ML VIAL SQ SCH ×2 (05:38→13:19)
[2017-09-30 06:18] LABS: BASOPHIL 0.6 % (0-2.0); EOSINOPHIL 5.6 % (0-4.5); MCHC 33.1 g/dl (32.0-35.9); MEAN CELL VOLUME 87.5 fl (80-96); MEAN PLT VOLUME 7.1 fl (7.5-11.1); NEUTROPHILS 76.1 % (42.8-82.8); PLATELET COUNT 162 K/MM3 (134-434); RDW 16.7 % (11.9-15.9); WHITE BLOOD COUNT 10.8 K/mm3 (4.0-10.0)
--- NOTE | 2017-09-30 06:23 | PN ---
Physical Exam: 24H events: yesterday - coughing with thickened liquids, made NPO ON - afebrile, maintaining UOP AM - failed INVESTMENTS MANAGER SUBJECTIVE: Patient seen and examined. Offers no complaints; He is hungry, and wants to eat. alert and oriented, mental status waxing and waning OBJECTIVE: Vital Signs Period Temp Pulse Resp BP Sys/Jeff Pulse Ox Last 24 Hr 97.5 F-98.6 F 77-100 18-26 152-167/91-98 100-100 GENERAL: awake, alert, conversant EYES: sclera anicteric, conjunctiva clear ENT: oropharynx clear without exudates, moist mucous membranes LUNGS: anterior course breath sounds, L>R rhonchi, R pigtail CT draining minimal serosanginous fluid HEART: rrrr, normal S1/S2 ABDOMEN: Soft, ntnd, no guarding, no rebound : hines EXTREMITIES: 2+ pulses, wwp, 1+ edema in all 4 extremities SKIN: non-pruritic, blanching confluent macular rash on bilateral flanks; R anterior norris dermatitis continues to improve CBC, BMP 09/30/17 06:00 09/30/17 06:00 Hepatic Panel Direct Bilirubin 1.8 mg/dL (0.0-0.2) H D 09/09/17 05:00 Total Bilirubin 0.5 mg/dL (0.2-1.0) D 09/30/17 06:00 AST 30 U/L (15-37) 09/30/17 06:00 ALT 17 U/L (12-78) D 09/30/17 06:00 Alkaline Phosphatase 130 U/L (45-117) H 09/30/17 06:00 Albumin 2.2 g/dl (3.4-5.0) L 09/30/17 06:00 IMAGING: Renal ultrasound (09/28/17) - "Normal size kidneys, but with increased renal cortical echogenicity suggestive of chronic medical renal disease." No hydronephronis, nephrolithiasis, or cysts bilaterally. Active Medications Acetaminophen (Tylenol -) 650 mg NR Q6H PRN PRN Reason: FEVER OR PAIN Last Admin: 09/16/17 18:27 Dose: 650 mg Chlorhexidine Gluconate (Peridex -) 15 ml MM BID [facility] Last Admin: 09/29/17 21:59 Dose: 15 ml Ferrous Sulfate (Feosol -) 325 mg PO DAILY [facility] Last Admin: 09/29/17 09:17 Dose: 325 mg Folic Acid (Folic Acid -) 1 mg PO DAILY [facility] Last Admin: 09/29/17 09:17 Dose: 1 mg Heparin Sodium (Porcine) (Heparin -) 5,000 unit SQ TID [facility] Last Admin: 09/30/17 05:38 Dose: 5,000 unit Famotidine/Sodium Chloride (Pepcid 20 Mg Premixed Ivpb -) 20 mg in 50 mls @ 100 mls/hr IVPB BID [facility] Last Admin: 09/29/17 21:57 Dose: 100 mls/hr Sodium Chloride (1/2 Normal Saline) 1,000 mls @ 75 mls/hr IV ASDIR [facility] Last Admin: 09/30/17 04:06 Dose: 75 mls/hr Metoprolol Tartrate (Lopressor -) 25 mg NGT BID [facility] Last Admin: 09/29/17 22:00 Dose: Not Given Metoprolol Tartrate (Lopressor Injection -) 5 mg IVPUSH Q4H PRN PRN Reason: HYPERTENSION Last Admin: 09/30/17 04:05 Dose: 5 mg Multivitamins/Minerals (Theragran-M) 1 each PO DAILY [facility] Last Admin: 09/29/17 09:18 Dose: 1 each Mupirocin (Bactroban 2% Cream -) 1 applic TP BID [facility] Last Admin: 09/29/17 21:59 Dose: 1 applic Sevelamer Carbonate (Renvela -) 800 mg PO TIDCM [facility] Last Admin: 09/29/17 18:44 Dose: Not Given Thiamine HCl (Vitamin B1 -) 100 mg PO DAILY [facility] Last Admin: 09/29/17 09:18 Dose: 100 mg ASSESSMENT/PLAN: 66yo man with PMH of EtOH abuse and HTN who is admitted (08/31) for acute hypoxic respiratory failure requiring mechanical ventilation (09/02-09/19, 09/24- ), now satting well on TN. Continues to have cavitary PNA with loculated effusions bilaterally, R pigtail CT with minimal drainage, and acute thoracic osteomyletitis (T9-T10). Antibiotic changed from Cefazolin (09/16-09/28) to Vancomycin on 09/29 (renally dosed) given possible allergic reaction (bilateral flank rash). Renal function continues to worsen (130/5.5), however he is still maintaining good UOP. Renal considering HD. #Dysphagia, severe impairment -Strict NPO including meds -Failed NGT placement x1 -GI consulted for PEG, consent obtained from daughter -Aspiration precautions: mouth care, elevate HOB, suction prn #ARF, 09/27 FeNa 3.6% c/w intrinsic process (AIN vs ATN) -Renal following, considering HD -Ferrous Sulfate 325 mg PO DAILY and Sevelamer Carbonate (Renvela) 800 mg PO TID -Strict I&Os, hines, Renal dose for meds #acute hypoxic respiratory failure -O2 therapy as needed to maintain spO2>90%, Chest physiotherapy BID, suctioning -R chest tube draining to water seal #sepsis 2/2 cavitary PNA, acute osteomyelitis -ID following, long-term abx needed for acute osteomyelitis (at least 6 wks) -Vancomycin IV, dosed renally, check Random Vanc level daily #GI bleed, likely 2/2 trauma from rectal tube, s/p 3Ux PRBCs, Hgb stable, no further bleeds -Trend H&H, transfuse Hgb<7 #Afib - CHADVASC score of 2 indicating AC -Cardiology following, can add PO amio for rate control PRN (currently in NSR), hold AC now given co-morbidities #suspected chronic diastolic heart failure - ECHO 09/02/2017 probable preserved LV function, but can't R/O regional wall motion abnormality -Metoprolol 25mg PO BID -> Metoprolol 5mg IV Q4H KINGS while NPO -consider hydralazine prn #EtOH abuse -Monitor for signs of EtOH withdrawal -MVI, thiamine 100mg PO qd, folic acid 1mg PO daily #FEN -D51/2NS @ 42 for hypernatremia and while NPO -lyte abnormalities noted, Renal considering HD -Strict NPO; failed INVESTMENTS MANAGER today #PPX -Heparin 5000U SQ TID -GI - pepcid 20mg IV BID #Dispo: continue ICU monitoring FULL code d/w Dr. Akbar Salter MD PGY-1 Visit type - Emergency Visit Emergency Visit: No - New Patient This patient is new to me today: No - Critical Care Critical Care patient: Yes Total Critical Care Time (in minutes): 40 Critical Care Statement: The care of this patient involved high complexity decision making to prevent further life threatening deterioration of the patient 's condition and/or to evaluate & treat vital organ system(s) failure or risk of failure.
--- NOTE | 2017-09-30 08:04 | PN ---
Teaching Attending Note Name of Resident: Lydia Salter ATTENDING PHYSICIAN STATEMENT Time of evalution: 9:15 AM I saw and evaluated the patient. I reviewed the resident's note and discussed the case with the resident. I agree with the resident's findings and plan as documented. SUBJECTIVE: Patient seen and examined. awake conversant, oriented to self and place. Wants to eat, no other complaints. OBJECTIVE: Vital Signs Period Temp Pulse Resp BP Sys/Jeff Pulse Ox Last 24 Hr 97.5 F-98.6 F 77-100 18-26 152-167/91-98 100-100 Intake & Output 09/27/17 09/28/17 09/29/17 09/30/17 23:59 23:59 23:59 23:59 Intake Total 5840 720 4755 900 Output Total 5217 492 8325 720 Balance 405 -460 -900 180 Weight 188 lb 9.6 oz 191 lb 3.2 oz 181 lb 8 oz 185 lb 9 oz General: sitting in bed on nasal cannula in no acute distress CVS: S1S2 regular, rapid Chest: Poor effort, scattered coarse rales Abdomen: soft, NT, ND, positive bowel sounds extremities: improved anasarca, Skin: confluent blanching rash bilateral flanks, RLE lesions improving Home Medication List Medication Instructions Recorded Confirmed Type Unobtainable [Unobtainable] 08/31/17 08/31/17 History Active Medications Generic Name Dose Route Start Last Admin Trade Name Freq PRN Reason Stop Dose Admin Acetaminophen 650 mg 09/07/17 05:53 09/16/17 18:27 Tylenol - NR 650 mg Q6H PRN Administration FEVER OR PAIN Chlorhexidine Gluconate 15 ml 09/08/17 12:30 09/29/17 21:59 Peridex - MM 15 ml BID [facility] Administration Ferrous Sulfate 325 mg 09/05/17 12:00 09/29/17 09:17 Feosol - PO 325 mg DAILY [facility] Administration Folic Acid 1 mg 09/02/17 10:00 09/29/17 09:17 Folic Acid - PO 1 mg DAILY [facility] Administration Heparin Sodium (Porcine) 5,000 unit 09/28/17 09:45 09/30/17 05:38 Heparin - SQ 5,000 unit TID [facility] Administration Famotidine/Sodium Chloride 20 mg in 50 mls @ 100 mls/hr 09/28/17 10:00 21:57 Pepcid 20 Mg Premixed Ivpb - IVPB 100 mls/hr BID [facility] Administration Sodium Chloride 1,000 mls @ 75 mls/hr 09/29/17 10:30 09/30/17 04:06 1/2 Normal Saline IV 75 mls/hr ASDIR [facility] Administration Metoprolol Tartrate 25 mg 09/25/17 13:45 09/29/17 22:00 Lopressor - NGT Not Given BID [facility] Metoprolol Tartrate 5 mg 09/28/17 05:45 09/30/17 04:05 Lopressor Injection - IVPUSH 5 mg Q4H PRN Administration HYPERTENSION Multivitamins/Minerals 1 each 09/02/17 10:00 09/29/17 09:18 Theragran-M PO 1 each DAILY [facility] Administration Mupirocin 1 applic 09/23/17 10:00 09/29/17 21:59 Bactroban 2% Cream - TP 1 applic BID [facility] Administration Sevelamer Carbonate 800 mg 09/12/17 17:30 09/29/17 18:44 Renvela - PO Not Given TIDCM [facility] Thiamine HCl 100 mg 09/02/17 10:00 09/29/17 09:18 Vitamin B1 - PO 100 mg DAILY [facility] Administration Laboratory Results - last 24 hr 09/26/17 09/30/17 09/30/17 14:18 06:00 06:00 WBC 10.8 H RBC 2.77 L Hgb 8.0 L Hct 24.2 L MCV 87.5 MCH 29.0 MCHC 33.1 RDW 16.7 H Plt Count 162 MPV 7.1 L Neutrophils % 76.1 Lymphocytes % 9.1 Monocytes % 8.6 Eosinophils % 5.6 H Basophils % 0.6 Sodium Potassium Chloride Carbon Dioxide Anion Gap BUN Creatinine Creat Clearance w eGFR Random Glucose Calcium Phosphorus Magnesium Total Bilirubin AST ALT Alkaline Phosphatase Total Protein Albumin Random Vancomycin 14.893 Blood Type O NEGATIVE Antibody Screen Negative Crossmatch See Detail 09/30/17 06:00 WBC RBC Hgb Hct MCV MCH MCHC RDW Plt Count MPV Neutrophils % Lymphocytes % Monocytes % Eosinophils % Basophils % Sodium 150 H Potassium 3.7 Chloride 118 H Carbon Dioxide 16 L Anion Gap 16 BUN 130 H* Creatinine 5.5 H Creat Clearance w eGFR 10.39 Random Glucose 93 Calcium 7.8 L Phosphorus 5.7 H Magnesium 2.3 Total Bilirubin 0.5 D AST 30 ALT 17 D Alkaline Phosphatase 130 H Total Protein 7.8 Albumin 2.2 L Random Vancomycin Blood Type Antibody Screen Crossmatch ASSESSMENT AND PLAN: -Acute hypoxic respiratory failure -Severe sepsis due to cavitary PNA, MSSA bacteremia, ALISA neg for vegetation -Large right loculated pleural effusion, s/p chest tube -Aspiration risk -Acute T9-T10 discitis/osteomyelitis -Hematochezia -ARF, from sepsis related ATN vs medication related, ?AIN -Acute on chronic anemia, suspect from renal dysfunction, episode of hematochezia suspected from rectal tube/heparin, resolved -AFib with RVR recurrent -Rash, ?medication induced from Cefazolin -Hypokalemia/hypomagnesemia -Hyperphosphatemia -Hypovolumic hypernatremia -Alcohol abuse -Normocytic anemia -Acute transaminitis -Chronic right subdural hematoma Plan: Extubated 09/27, doing well, continue to monitor. NO plan for VATS, Chest tube unclogged, but not much drainage. Coughing/choking concerns with pO intake, Speech/swallow input noted. Strict NPO for now. Will discuss with renal to change IVF to D5W at 75 ml/hr, re-insert NG tube if patient agreable and co-operative and resume feeds and free water flushes for now. ENT consult to assess vocal cords. Cefazolin changed to vanco renal dosing 09/29 by ID given rash and concerns for AIN. Will need atleast 6 weeks antibiotics with likely repeat imaging then, repeat blood cultures sent 09/22, follow up. Follow up vancomycin levels today. Renal function seems to have plateaued, urine output increased, ?diuretic phase of ATN. Follow up with renal for HD. IVF as above. Follow up urine eosinophils No further hematochezia, off heparin drip, eliquis d/diandra by cardiology given ongoing renal dysfunction. Hb ranging 7-8, suspect worsening renal function contributory as well, no further evidence of ongoing bleed. s/p 1 unit PRBC 09/26, trend for now. Change to IV lopressor. Add hydralazine prn if persistently hypertensive. Currently with sinus tach, not afib. Replete lytes as needed. Trend LFTs Aspiration precautions. Palliative care input noted. Continue to monitor and address goals of care. Patient confirmed full code and ok with dialysis if needed. Patient critical with ongoing multiorgan dsyfunction. Total critical care time spent 40 min.
[2017-09-30 09:22] LABS: ALBUMIN 2.2 g/dl (3.4-5.0); ANION GAP 16 (8-16); CALCIUM 7.8 mg/dL (8.5-10.1); CO2 16 mmol/L (21-32); GLUCOSE,RANDOM 93 mg/dL (74-106); MAGNESIUM 2.3 mg/dL (1.8-2.4); PHOSPHOROUS 5.7 mg/dL (2.5-4.9)
[2017-09-30 09:25] LABS: ALK PHOS 130 U/L (45-117); BILIRUBIN,TOTAL 0.5 mg/dL (0.2-1.0); CREATININE 5.5 mg/dL (0.7-1.3); SGOT/AST 30 U/L (15-37); SGPT/ALT 17 U/L (12-78); TOT PROT 7.8 g/dl (6.4-8.2)
[2017-09-30] MEDS: METOPROLOL TARTRATE 25 MG TABLET (FP) NGT SCH (09:25)
[2017-09-30] MEDS: FAMOTIDINE 20 MG/50 ML IVPB 20 MG/50 ML MG IVPB SCH (09:25)
[2017-09-30] MEDS: SEVELAMER CARBONATE 800 MG TAB (FP) PO SCH ×3 (09:27→17:21)
[2017-09-30] MEDS: FOLIC ACID 1 MG TABLET (FP) PO SCH (09:28)
[2017-09-30] MEDS: FERROUS SO4 325 MG TABLET (FP) PO SCH (09:28)
[2017-09-30] MEDS: THIAMINE HCL 100 MG TABLET (FP) PO SCH (09:28)
[2017-09-30] MEDS: MULTIVITAMINS THER W-MINERALS COMBO TABLET (FP) PO SCH (09:28)
[2017-09-30] MEDS: CHLORHEXIDINE GLUCONATE 0.12% 15ML CUP MM SCH (09:28)
[2017-09-30] MEDS ORDERED: VANCOMYCIN 1,000 MG in DEXTROSE 5%-WATER - 250 ML IVPB ONE (10:06)
--- NOTE | 2017-09-30 10:14 | PN ---
Progress Note, Physician History of Present Illness: Remains extubated Much more awake, alert. Conversant. Offers no complaints. Breathing non-labored on nasal cannula Afebrile WBC 10.8 5.6% eos Vancom T 14.8 - Current Medication List Current Medications: Active Medications Acetaminophen (Tylenol -) 650 mg NR Q6H PRN PRN Reason: FEVER OR PAIN Last Admin: 09/16/17 18:27 Dose: 650 mg Chlorhexidine Gluconate (Peridex -) 15 ml MM BID [facility] Last Admin: 09/30/17 09:28 Dose: Not Given Ferrous Sulfate (Feosol -) 325 mg PO DAILY [facility] Last Admin: 09/30/17 09:28 Dose: Not Given Folic Acid (Folic Acid -) 1 mg PO DAILY [facility] Last Admin: 09/30/17 09:28 Dose: Not Given Heparin Sodium (Porcine) (Heparin -) 5,000 unit SQ TID [facility] Last Admin: 09/30/17 05:38 Dose: 5,000 unit Famotidine/Sodium Chloride (Pepcid 20 Mg Premixed Ivpb -) 20 mg in 50 mls @ 100 mls/hr IVPB BID [facility] Last Admin: 09/30/17 09:25 Dose: 100 mls/hr Sodium Chloride (1/2 Normal Saline) 1,000 mls @ 75 mls/hr IV ASDIR [facility] Last Admin: 09/30/17 04:06 Dose: 75 mls/hr Vancomycin HCl 1,000 mg/ (Dextrose) 250 mls @ 200 mls/hr IVPB ONCE ONE Stop: 09/30/17 11:20 Metoprolol Tartrate (Lopressor -) 25 mg NGT BID [facility] Last Admin: 09/30/17 09:25 Dose: 25 mg Metoprolol Tartrate (Lopressor Injection -) 5 mg IVPUSH Q4H PRN PRN Reason: HYPERTENSION Last Admin: 09/30/17 04:05 Dose: 5 mg Multivitamins/Minerals (Theragran-M) 1 each PO DAILY [facility] Last Admin: 09/30/17 09:28 Dose: Not Given Mupirocin (Bactroban 2% Cream -) 1 applic TP BID [facility] Last Admin: 09/29/17 21:59 Dose: 1 applic Sevelamer Carbonate (Renvela -) 800 mg PO TIDCM [facility] Last Admin: 09/30/17 09:27 Dose: Not Given Thiamine HCl (Vitamin B1 -) 100 mg PO DAILY [facility] Last Admin: 09/30/17 09:28 Dose: Not Given - Objective Vital Signs: Vital Signs Temperature 98.6 F 09/30/17 09:59 Pulse Rate 98 H 09/30/17 08:00 Respiratory Rate 22 09/30/17 09:59 Blood Pressure 121/95 09/30/17 09:59 O2 Sat by Pulse Oximetry (%) 100 09/30/17 09:00 Constitutional: Yes: No Distress Eyes: Yes: Conjunctiva Clear Cardiovascular: Yes: Regular Rate and Rhythm, S1, S2 Respiratory: Yes: CTA Bilaterally, Diminished, Other (decreased BS R R chest tube in place) Gastrointestinal: Yes: Normal Bowel Sounds, Soft. No: Tenderness Genitourinary: Yes: Freeman Present Edema: Yes Integumentary: Yes: Other (? mild exanthem, neck/chest) Labs: CBC, BMP 09/30/17 06:00 09/30/17 06:00 INR, PTT INR 1.12 (0.82-1.09) 09/26/17 06:10 Assessment/Plan MSSA bacteremia, likely skin source Vertebral osteo T9T10 S/P Resp failure remains extubated Possible aspiration pneumonia Hx ETOH abuse Azotemia ? AIN Work up for AIN in progress (? secondary to B-lactam) Continue vancomycin for now, adjusted for renal failure Will need assisted (6-8w) anti- staph treatment
--- NOTE | 2017-09-30 10:25 | PN ---
Progress Note, LABOR RELATIONS CONSULTANT - Note Progress Note: Seen by me on 09/20/17- Recommendations - Speech Evaluation, Impression/Plan Impression: Rare swallow attempt with limited laryngeal elevation and vocal wetness with weak, unprotective cough. Likely aspirating on secretions and trial of tiny amount of puree. Aphonic/vocal wetness. Non verbal. Confused. - Dysphagia Impressions/Plan Swallowing Skills: Impaired Dysphagia Impressions: Severe Impairment, Ongoing Evaluation *Silent aspiration: cannot be R/O at bedside - Recommendations Diet Consistency: NPO (including medication), Other (NGT for medication/ nutrition until improved?) Liquids: NPO Medical events noted since, including intubation 09/24-extubated 09/28. 09/28 puree and nectar thick liquid ordered. Per nursing note, pt was coughing after breakfast and po meds given with thickened liquid on 09/29. PO held except for meds in tiny amount of applesauce. Selected Entries 09/29/17 09/29/17 09/29/17 02:00 06:00 09:12 Breakfast 25% Lunch Temperature 98.2 F 98.5 F 09/29/17 09/29/17 09/29/17 10:53 14:43 16:39 Breakfast Lunch NPO Temperature 98.4 F 98.4 F 98.6 F 09/29/17 09/30/17 09/30/17 22:00 02:00 05:59 Breakfast Lunch Temperature 98.2 F 98 F 97.5 F L 09/30/17 09/30/17 09:59 10:00 Breakfast NPO Lunch Temperature 98.6 F Laboratory Tests 09/27/17 09/30/17 05:45 06:00 WBC 12.3 H 10.8 H Pt is alert, confused, severe dysphonia with vocal wetness, cough intermittently on his secretions. Trial of 1/4 tsp applesauce, resulted in delayed swallow, eye opening with multiple re[peat swallows, with delayed cough and vocal wetness High suspicion for aspiration on secretions and applesauce secondary to vocal cord dysfunction/dysphonia/severe dysphagia. MBS ordered, but not indicated at this time. Suggest: strict NPO including medication. Consider alternate means of nutritional intake and for meds: temporary vs LT. May benefit from ENT consult? assess structure/function of vocal cords,. Mouth care, Elevate HOB, suction prn.
--- NOTE | 2017-09-30 13:12 | PN ---
Progress Note, Physician Chief Complaint: Remains in ICU and extubated History of Present Illness: Patient was seen and examined in ICU. Awake, but confused. Chart was reviewed Denies chest pain, shortness of breath or palpitations - Current Medication List Current Medications: Active Medications Acetaminophen (Tylenol -) 650 mg NR Q6H PRN PRN Reason: FEVER OR PAIN Last Admin: 09/16/17 18:27 Dose: 650 mg Chlorhexidine Gluconate (Peridex -) 15 ml MM BID [facility] Last Admin: 09/30/17 09:28 Dose: Not Given Ferrous Sulfate (Feosol -) 325 mg PO DAILY [facility] Last Admin: 09/30/17 09:28 Dose: Not Given Folic Acid (Folic Acid -) 1 mg PO DAILY [facility] Last Admin: 09/30/17 09:28 Dose: Not Given Heparin Sodium (Porcine) (Heparin -) 5,000 unit SQ TID [facility] Last Admin: 09/30/17 05:38 Dose: 5,000 unit Famotidine/Sodium Chloride (Pepcid 20 Mg Premixed Ivpb -) 20 mg in 50 mls @ 100 mls/hr IVPB BID [facility] Last Admin: 09/30/17 09:25 Dose: 100 mls/hr Sodium Chloride (1/2 Normal Saline) 1,000 mls @ 75 mls/hr IV ASDIR [facility] Last Admin: 09/30/17 04:06 Dose: 75 mls/hr Metoprolol Tartrate (Lopressor -) 25 mg NGT BID [facility] Last Admin: 09/30/17 09:25 Dose: 25 mg Metoprolol Tartrate (Lopressor Injection -) 5 mg IVPUSH Q4H PRN PRN Reason: HYPERTENSION Last Admin: 09/30/17 04:05 Dose: 5 mg Multivitamins/Minerals (Theragran-M) 1 each PO DAILY [facility] Last Admin: 09/30/17 09:28 Dose: Not Given Mupirocin (Bactroban 2% Cream -) 1 applic TP BID [facility] Last Admin: 09/29/17 21:59 Dose: 1 applic Sevelamer Carbonate (Renvela -) 800 mg PO TIDCM [facility] Last Admin: 09/30/17 09:27 Dose: Not Given Thiamine HCl (Vitamin B1 -) 100 mg PO DAILY [facility] Last Admin: 09/30/17 09:28 Dose: Not Given - Objective Vital Signs: Vital Signs Temperature 98.6 F 09/30/17 09:59 Pulse Rate 96 H 09/30/17 12:20 Respiratory Rate 20 09/30/17 12:20 Blood Pressure 154/94 09/30/17 12:20 O2 Sat by Pulse Oximetry (%) 100 09/30/17 11:43 Cardiovascular: Yes: Regular Rate and Rhythm, S1, S2 Respiratory: Yes: Diminished Gastrointestinal: Yes: Normal Bowel Sounds, Soft. No: Tenderness Edema: No Labs: CBC, BMP 09/30/17 06:00 09/30/17 06:00 INR, PTT INR 1.12 (0.82-1.09) 09/26/17 06:10 Problem List - Problems (1) Abuse, drug or alcohol Code(s): F19.10 - OTHER PSYCHOACTIVE SUBSTANCE ABUSE, UNCOMPLICATED (2) Respiratory failure with hypoxia Code(s): J96.91 - RESPIRATORY FAILURE, UNSPECIFIED WITH HYPOXIA Qualifiers: Chronicity: acute Qualified Code(s): J96.01 - Acute respiratory failure with hypoxia (3) Pneumonia Code(s): J18.9 - PNEUMONIA, UNSPECIFIED ORGANISM Qualifiers: Pneumonia type: aspiration pneumonia (5) History of alcohol abuse Code(s): Z87.898 - PERSONAL HISTORY OF OTHER SPECIFIED CONDITIONS (6) Acute diastolic heart failure Code(s): I50.31 - ACUTE DIASTOLIC (CONGESTIVE) HEART FAILURE (7) Anemia Code(s): D64.9 - ANEMIA, UNSPECIFIED Qualifiers: Anemia type: unspecified type Qualified Code(s): D64.9 - Anemia, unspecified Assessment/Plan 1. Paroxysmal atrial fibrillation [id number] score of 2, currently in sinus rhythm not on Eliquis in view of above noted renal insufficiency 2. Acute hypoxic respiratory failure, post extubation, pulmonary infiltrates/ pulmonary edema improving 3. Cavitating pneumonia, MSSA bacteremia, post septic shock no evidence of endocarditis by ALISA criteria 4. Diastolic LV dysfunction with class I-II NYHA congestive heart failure, volume overload, resolved 5. 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 Loculated effusion post chest tube insertion 7. History of alcohol dependence 8. Acute renal insufficiency 9. Hypernatremia 10. Anemia PLAN: 1. As outlined regarding anticoagulation - in view of renal insufficiency would use Coumadin if deemed possible, but currently it is not clear whether he would be an ideal candidate for terminal make up operator use 2. Continue PO Lopressor and titrate as tolerated, hemodynamics permitting 3. Diuretic held, but may be used as needed 4. Monitor BP and use additional medication if needed 5. Antibiotics as per ID service Further plans are to follow Jordon Gtz MD
[2017-09-30] MEDS: MUPIROCIN CA 2% TOPICAL CREAM 15 GM TUBE TP SCH (13:22)
--- NOTE | 2017-09-30 14:20 | PN ---
Progress Note, Physician History of Present Illness: Pt seen and examined at bedside. He remains in the ICU. Pt is still extubated. He dose aspirate his own secretions. He is awake however his mental status waxes and wanes. He denies shortness of breath. I discussed HD with pt however I do not feel that he fully understands. - Current Medication List Current Medications: Active Medications Acetaminophen (Tylenol -) 650 mg NR Q6H PRN PRN Reason: FEVER OR PAIN Last Admin: 09/16/17 18:27 Dose: 650 mg Chlorhexidine Gluconate (Peridex -) 15 ml MM BID [facility] Last Admin: 09/30/17 09:28 Dose: Not Given Ferrous Sulfate (Feosol -) 325 mg PO DAILY [facility] Last Admin: 09/30/17 09:28 Dose: Not Given Folic Acid (Folic Acid -) 1 mg PO DAILY [facility] Last Admin: 09/30/17 09:28 Dose: Not Given Heparin Sodium (Porcine) (Heparin -) 5,000 unit SQ TID [facility] Last Admin: 09/30/17 13:19 Dose: 5,000 unit Famotidine/Sodium Chloride (Pepcid 20 Mg Premixed Ivpb -) 20 mg in 50 mls @ 100 mls/hr IVPB BID [facility] Last Admin: 09/30/17 09:25 Dose: 100 mls/hr Dextrose/Sodium Chloride (D5-1/2ns -) 1,000 mls @ 42 mls/hr IV ASDIR [facility] Metoprolol Tartrate (Lopressor -) 25 mg NGT BID [facility] Last Admin: 09/30/17 09:25 Dose: 25 mg Metoprolol Tartrate (Lopressor Injection -) 5 mg IVPUSH Q4H PRN PRN Reason: HYPERTENSION Last Admin: 09/30/17 04:05 Dose: 5 mg Multivitamins/Minerals (Theragran-M) 1 each PO DAILY [facility] Last Admin: 09/30/17 09:28 Dose: Not Given Mupirocin (Bactroban 2% Cream -) 1 applic TP BID [facility] Last Admin: 09/30/17 13:22 Dose: 1 applic Sevelamer Carbonate (Renvela -) 800 mg PO TIDCM [facility] Last Admin: 09/30/17 13:21 Dose: Not Given Thiamine HCl (Vitamin B1 -) 100 mg PO DAILY [facility] Last Admin: 09/30/17 09:28 Dose: Not Given - Objective Vital Signs: Vital Signs Temperature 98.4 F 09/30/17 13:46 Pulse Rate 97 H 09/30/17 13:46 Respiratory Rate 22 09/30/17 13:46 Blood Pressure 173/101 09/30/17 13:46 O2 Sat by Pulse Oximetry (%) 100 09/30/17 11:43 Constitutional: Yes: Calm Eyes: Yes: WNL HENT: Yes: Other (poor dental hygeine) Neck: Yes: Supple Cardiovascular: Yes: S1, S2 Respiratory: Yes: Cough, On Nasal O2, Rhonchi, Other (chest tube) Gastrointestinal: Yes: Soft Genitourinary: Yes: Freeman Present Musculoskeletal: Yes: Muscle Weakness Edema: Yes Edema: LLE: 1+, RLE: 1+ Wound/Incision: Yes: Dressing Dry and Intact Neurological: Yes: Confusion Labs: CBC, BMP 09/30/17 06:00 09/30/17 06:00 INR, PTT INR 1.12 (0.82-1.09) 09/26/17 06:10 - ....Imaging Chest X-ray: Report Reviewed Ultrasound: Report Reviewed Problem List - Problems (1) Abuse, drug or alcohol Code(s): F19.10 - OTHER PSYCHOACTIVE SUBSTANCE ABUSE, UNCOMPLICATED (2) Withdrawal symptoms, alcohol Code(s): F10.239 - ALCOHOL DEPENDENCE WITH WITHDRAWAL, UNSPECIFIED Qualifiers: Complication of substance-induced condition: uncomplicated Qualified Code(s ): F10.230 - Alcohol dependence with withdrawal, uncomplicated (3) Hyponatremia Code(s): E87.1 - HYPO-OSMOLALITY AND HYPONATREMIA (4) Respiratory failure with hypoxia Code(s): J96.91 - RESPIRATORY FAILURE, UNSPECIFIED WITH HYPOXIA Qualifiers: Chronicity: acute Qualified Code(s): J96.01 - Acute respiratory failure with hypoxia (5) Staphylococcus aureus bacteremia Code(s): R78.81 - BACTEREMIA (6) Acute kidney injury Code(s): N17.9 - ACUTE KIDNEY FAILURE, UNSPECIFIED (7) Anemia Code(s): D64.9 - ANEMIA, UNSPECIFIED Qualifiers: Anemia type: unspecified type Qualified Code(s): D64.9 - Anemia, unspecified Assessment/Plan Current Medications Generic Name Dose Route Start Last Admin Trade Name Freq PRN Reason Stop Dose Admin Acetaminophen 650 mg 09/07/17 05:53 09/16/17 18:27 Tylenol - NR 650 mg Q6H PRN Administration FEVER OR PAIN Chlorhexidine Gluconate 15 ml 09/08/17 12:30 09/30/17 09:28 Peridex - MM Not Given BID [facility] Ferrous Sulfate 325 mg 09/05/17 12:00 09/30/17 09:28 Feosol - PO Not Given DAILY [facility] Folic Acid 1 mg 09/02/17 10:00 09/30/17 09:28 Folic Acid - PO Not Given DAILY [facility] Heparin Sodium (Porcine) 5,000 unit 09/28/17 09:45 09/30/17 13:19 Heparin - SQ 5,000 unit TID [facility] Administration Famotidine/Sodium Chloride 20 mg in 50 mls @ 100 mls/hr 09/28/17 10:00 09:25 Pepcid 20 Mg Premixed Ivpb - IVPB 100 mls/hr BID [facility] Administration Dextrose/Sodium Chloride 1,000 mls @ 42 mls/hr 09/30/17 13:30 D5-1/2ns - IV ASDIR [facility] Metoprolol Tartrate 25 mg 09/25/17 13:45 09/30/17 09:25 Lopressor - NGT 25 mg BID [facility] Administration Metoprolol Tartrate 5 mg 09/28/17 05:45 09/30/17 04:05 Lopressor Injection - IVPUSH 5 mg Q4H PRN Administration HYPERTENSION Multivitamins/Minerals 1 each 09/02/17 10:00 09/30/17 09:28 Theragran-M PO Not Given DAILY [facility] Mupirocin 1 applic 09/23/17 10:00 09/30/17 13:22 Bactroban 2% Cream - TP 1 applic BID [facility] Administration Sevelamer Carbonate 800 mg 09/12/17 17:30 09/30/17 13:21 Renvela - PO Not Given TIDCM [facility] Thiamine HCl 100 mg 09/02/17 10:00 09/30/17 09:28 Vitamin B1 - PO Not Given DAILY [facility] Impression 1. ALEXANDRA 2. fluid overload 3. hypoalbuminemia 4. respiratory failure requiring intubation 5. anemia 6. etoh abuse 7. fevers 8. hypokalemia 9. pleural effusion 10. hypernatremia 11. GI bleed Plan - renal ultrasound reviewed - renal function appears to have plateaued, repeat labs in am - called daughter Emelina [phone] to discuss care and to discuss HD however she was not available and her mailbox was full and could not leave message - monitor urine ouput - speech and swallow eval appreciated. pt will need alternate means of eating - consider starting clinimix instead of fluids - ALEXANDRA is multifactorial - monitor hg - cont chest tube care - monitor pulse ox - repeat cxr in am - discussed with ICU team - keep pt in ICU - will follow Dr Peres
[2017-09-30] MEDS: DEXTROSE 5%-0.45% SALINE 1,000 ML IV SCH (14:40)
--- NOTE | 2017-09-30 14:51 | PN ---
Physical Exam: SUBJECTIVE: Patient seen and examined. patient sitting in bed. speech and swallow consult recommends NPO. Patient didn't allow to put NG tube. Nurse states that patient is confused in compare to yesterday. Patient daughter was called to discuss peg tube possibility, She states that her father wants every thing to be done. She gave the consent for peg tube. also discussed with patient, patient also agreed for peg tube but was unable to sign. OBJECTIVE: Vital Signs Period Temp Pulse Resp BP Sys/Jeff Pulse Ox Last 24 Hr 97.5 F-98.6 F 82-100 18-26 121-173/92-106 100-100 GENERAL: The patient is awake, oriented place, person, remember his , name. HEAD: Normal with no signs of trauma. EYES: PERRL, No ptosis. ENT: Ears normal, nares patent, moist mucous membranes. NECK: Trachea midline, full range of motion, supple. LUNGS: decrease breath sound b/l crackels at base, chest tube in situ on right side. HEART: s1s2 chris.. ABDOMEN: Soft, nontender, nondistended, normoactive bowel sounds, no guarding, no rebound, EXTREMITIES: edema++ SKIN: Warm, dry, Laboratory Results - last 24 hr 09/26/17 09/30/17 09/30/17 14:18 06:00 06:00 WBC 10.8 H RBC 2.77 L Hgb 8.0 L Hct 24.2 L MCV 87.5 MCH 29.0 MCHC 33.1 RDW 16.7 H Plt Count 162 MPV 7.1 L Neutrophils % 76.1 Lymphocytes % 9.1 Monocytes % 8.6 Eosinophils % 5.6 H Basophils % 0.6 Sodium Potassium Chloride Carbon Dioxide Anion Gap BUN Creatinine Creat Clearance w eGFR Random Glucose Calcium Phosphorus Magnesium Total Bilirubin AST ALT Alkaline Phosphatase Total Protein Albumin Random Vancomycin 14.893 Blood Type O NEGATIVE Antibody Screen Negative Crossmatch See Detail 09/30/17 06:00 WBC RBC Hgb Hct MCV MCH MCHC RDW Plt Count MPV Neutrophils % Lymphocytes % Monocytes % Eosinophils % Basophils % Sodium 150 H Potassium 3.7 Chloride 118 H Carbon Dioxide 16 L Anion Gap 16 BUN 130 H* Creatinine 5.5 H Creat Clearance w eGFR 10.39 Random Glucose 93 Calcium 7.8 L Phosphorus 5.7 H Magnesium 2.3 Total Bilirubin 0.5 D AST 30 ALT 17 D Alkaline Phosphatase 130 H Total Protein 7.8 Albumin 2.2 L Random Vancomycin Blood Type Antibody Screen Crossmatch Active Medications Generic Name Dose Route Start Last Admin Trade Name Ramo PRN Reason Stop Dose Admin Acetaminophen 650 mg 09/07/17 05:53 09/16/17 18:27 Tylenol - NR 650 mg Q6H PRN Administration FEVER OR PAIN Chlorhexidine Gluconate 15 ml 09/08/17 12:30 09/30/17 09:28 Peridex - MM Not Given BID [facility] Ferrous Sulfate 325 mg 09/05/17 12:00 09/30/17 09:28 Feosol - PO Not Given DAILY [facility] Folic Acid 1 mg 09/02/17 10:00 09/30/17 09:28 Folic Acid - PO Not Given DAILY [facility] Heparin Sodium (Porcine) 5,000 unit 09/28/17 09:45 09/30/17 13:19 Heparin - SQ 5,000 unit TID [facility] Administration Famotidine/Sodium Chloride 20 mg in 50 mls @ 100 mls/hr 09/28/17 10:00 09:25 Pepcid 20 Mg Premixed Ivpb - IVPB 100 mls/hr BID [facility] Administration Dextrose/Sodium Chloride 1,000 mls @ 42 mls/hr 09/30/17 13:30 09/30/17 14:40 D5-1/2ns - IV 42 mls/hr ASDIR [facility] Administration Metoprolol Tartrate 25 mg 09/25/17 13:45 09/30/17 09:25 Lopressor - NGT 25 mg BID [facility] Administration Metoprolol Tartrate 5 mg 09/28/17 05:45 09/30/17 04:05 Lopressor Injection - IVPUSH 5 mg Q4H PRN Administration HYPERTENSION Multivitamins/Minerals 1 each 09/02/17 10:00 09/30/17 09:28 Theragran-M PO Not Given [facility]ILY [facility] Mupirocin 1 applic 09/23/17 10:00 09/30/17 13:22 Bactroban 2% Cream - TP 1 applic BID [facility] Administration Sevelamer Carbonate 800 mg 09/12/17 17:30 09/30/17 13:21 Renvela - PO Not Given TIDCM [facility] Thiamine HCl 100 mg 09/02/17 10:00 09/30/17 09:28 Vitamin B1 - PO Not Given DAILY [facility] ASSESSMENT/PLAN: Acute Hypoxic Respiratory Failure Pneumonia MSSA Bacteremia Loculated Pleural Effusions LV Diastolic Dysfunction Paroxysmal Atrial Fibrillation Acute Kidney Injury GI Bleed likely from rectal tube/ulcer Acute Blood Loss Anemia afib - Plan - keep head end elevated - take aspiration precautions. - On d51/2 ns for hypernatremia., tried putting NG tube but patient refused. Patinet agred for peg tube. - monitor elctrolyte, i/o , vitals. - chest physical therapy. - antibiotics as per ID, need prison antibiotics for osteo - Nephro on case, may need HD - continue with protonix - monitor H/H, coags - thoracic surgery f/u - O2 to keep SpO2 >90% - rate control with metoprolol - DVT prophylaxis - continue ICU monitoring Visit type - Emergency Visit Emergency Visit: Yes ED Registration Date: 08/31/17 Care time: The patient presented to the Emergency Department on the above date and was hospitalized for further evaluation of their emergent condition. - New Patient This patient is new to me today: Yes Date on this admission: 09/30/17 - Critical Care Critical Care patient: No
--- NOTE | 2017-09-30 15:00 | PN ---
Teaching Attending Note Name of Resident: Anton Zamora ATTENDING PHYSICIAN STATEMENT I saw and evaluated the patient. I reviewed the resident's note and discussed the case with the resident. I agree with the resident's findings and plan as documented. SUBJECTIVE: Pt seen and examined in the ICU. Failed swallow study. Refusing NGT. Increased urine output with fluid challenge. OBJECTIVE: Last Vital Signs Temp Pulse Resp BP Pulse Ox 98.4 F 97 H 22 173/101 100 09/30/17 13:46 09/30/17 13:46 09/30/17 13:46 09/30/17 13:46 09/30/17 11:43 Intake & Output 09/27/17 09/28/17 09/29/17 09/30/17 23:59 23:59 23:59 23:59 Intake Total 7754 455 2632 900 Output Total 5001 953 5422 720 Balance 405 -460 -900 180 Weight 188 lb 9.6 oz 191 lb 3.2 oz 181 lb 8 oz 185 lb 9 oz Gen: NAD, more alert, awake Heart: RRR Lung: decreased breath sounds at the bases Abd: soft, nontender Ext: + edema CBC, BMP 09/30/17 06:00 09/30/17 06:00 Active Medications Acetaminophen (Tylenol -) 650 mg NR Q6H PRN PRN Reason: FEVER OR PAIN Last Admin: 09/16/17 18:27 Dose: 650 mg Chlorhexidine Gluconate (Peridex -) 15 ml MM BID [facility] Last Admin: 09/30/17 09:28 Dose: Not Given Ferrous Sulfate (Feosol -) 325 mg PO DAILY [facility] Last Admin: 09/30/17 09:28 Dose: Not Given Folic Acid (Folic Acid -) 1 mg PO DAILY [facility] Last Admin: 09/30/17 09:28 Dose: Not Given Heparin Sodium (Porcine) (Heparin -) 5,000 unit SQ TID [facility] Last Admin: 09/30/17 13:19 Dose: 5,000 unit Famotidine/Sodium Chloride (Pepcid 20 Mg Premixed Ivpb -) 20 mg in 50 mls @ 100 mls/hr IVPB BID [facility] Last Admin: 09/30/17 09:25 Dose: 100 mls/hr Dextrose/Sodium Chloride (D5-1/2ns -) 1,000 mls @ 42 mls/hr IV ASDIR [facility] Last Admin: 09/30/17 14:40 Dose: 42 mls/hr Metoprolol Tartrate (Lopressor -) 25 mg NGT BID [facility] Last Admin: 09/30/17 09:25 Dose: 25 mg Metoprolol Tartrate (Lopressor Injection -) 5 mg IVPUSH Q4H PRN PRN Reason: HYPERTENSION Last Admin: 09/30/17 04:05 Dose: 5 mg Multivitamins/Minerals (Theragran-M) 1 each PO DAILY [facility] Last Admin: 09/30/17 09:28 Dose: Not Given Mupirocin (Bactroban 2% Cream -) 1 applic TP BID [facility] Last Admin: 09/30/17 13:22 Dose: 1 applic Sevelamer Carbonate (Renvela -) 800 mg PO TIDCM [facility] Last Admin: 09/30/17 13:21 Dose: Not Given Thiamine HCl (Vitamin B1 -) 100 mg PO DAILY [facility] Last Admin: 09/30/17 09:28 Dose: Not Given ASSESSMENT AND PLAN: Acute Hypoxic Respiratory Failure Pneumonia MSSA Bacteremia Loculated Pleural Effusions LV Diastolic Dysfunction Paroxysmal Atrial Fibrillation Acute Kidney Injury GI Bleed likely from rectal tube/ulcer Acute Blood Loss Anemia - IVF - will need PEG placement - monitor urine output, creatinine - may need HD - continue antibiotics - holding heparin gtt - protonix - monitor H/H, coags - DNase not formulary, likely would not benefit from intrapleural tPA alone - thoracic surgery f/u - O2 to keep SpO2 >90% - aspiration precautions - DVT prophylaxis - continue ICU monitoring critical care time spent in reviewing chart, evaluating patient and formulating plan 35 min
[2017-09-30] MEDS: METOPROLOL TARTRATE 5 MG/5 ML VIAL IVPUSH SCH (17:15)
[2017-09-30] MEDS ORDERED: METOPROLOL TARTRATE 5 MG/5 ML VIAL IVPUSH ONE ×2 (19:27→19:58)
--- NOTE | 2017-09-30 19:53 | PN ---
Progress Note (short form) - Note Progress Note: At ~7:30pm, pt became tachycardic into 150-160's. BP was elevated ~170/111 mmHg. Lopressor 5mg IVP given. Respiratory called and BiPAP ordered for standby. Bel Pelayo MD PGY-1 [facility] team
[2017-09-30] MEDS ORDERED: HEMOQUE TEST 1 EACH EACH ONE (19:54)
[2017-09-30] MEDS ORDERED: dilTIAZem HCL 50 MG/10 ML - 10 ML VIAL IVPUSH ONE (20:36)
[2017-09-30] MEDS ORDERED: dilTIAZem HCL 125 MG/25 ML - 5 ML VIAL ONE (20:43)
[2017-09-30] MEDS ORDERED: DILTIAZEM INJECTION 125 MG in DEXTROSE 5%-WATER - 100 ML IVPB SCH (20:45)
[2017-09-30] MEDS ORDERED: AMIODARONE HCL 150 MG/3 ML VIAL IVPUSH ONE (22:40)
[2017-09-30] MEDS ORDERED: AMIODARONE HCL INJECTION 150 MG in DEXTROSE 5%-WATER - 97 ML IVPB ONE (22:40)
[2017-09-30] MEDS ORDERED: AMIODARONE HCL INJECTION 450 MG in DEXTROSE 5%-WATER - 241 ML IVPB SCH (23:00)
[2017-09-30] MEDS ORDERED: AMIODARONE HCL 150 MG/3 ML VIAL ONE (23:45)
[2017-10-01] MEDS: FAMOTIDINE 20 MG/50 ML IVPB 20 MG/50 ML MG IVPB SCH ×3 (00:20→21:00)
[2017-10-01] MEDS: MUPIROCIN CA 2% TOPICAL CREAM 15 GM TUBE TP SCH ×3 (00:21→21:03)
[2017-10-01] MEDS: CHLORHEXIDINE GLUCONATE 0.12% 15ML CUP MM SCH ×3 (00:21→21:01)
[2017-10-01] MEDS: HEPARIN NA (PORCINE) 5,000 UNITS/ML 1ML VIAL SQ SCH ×2 (00:21→07:03)
[2017-10-01] MEDS: METOPROLOL TARTRATE 5 MG/5 ML VIAL IVPUSH SCH ×6 (02:20→18:20)
[2017-10-01] MEDS ORDERED: AMIODARONE HCL INJECTION 450 MG in DEXTROSE 5%-WATER - 241 ML IVPB SCH (06:00)
[2017-10-01 06:37] LABS: BASOPHIL 0.6 % (0-2.0); MCHC 33.4 g/dl (32.0-35.9); MEAN CELL VOLUME 86.8 fl (80-96); MEAN PLT VOLUME 7.3 fl (7.5-11.1); PLATELET COUNT 129 K/MM3 (134-434); RDW 16.8 % (11.9-15.9)
[2017-10-01 06:54] LABS: ANION GAP 17 (8-16); CALCIUM 7.8 mg/dL (8.5-10.1); CO2 15 mmol/L (21-32); GLUCOSE,RANDOM 172 mg/dL (74-106)
--- NOTE | 2017-10-01 06:55 | PN ---
Progress Note (short form) - Note Progress Note: Chief Compliant: Events noted, notes reviewed, remains confused and disoriented , recurrent atrial fibrillation converted to sinus rhythm on IV Amiodarone, HTN noted History of Present Illness: Seen and examined in the ICU. Events noted, notes reviewed, remains confused and disoriented, recurrent atrial fibrillation converted to sinus rhythm on IV Amiodarone, HTN noted As outlined in prior notes Eliquis was D/C and ideally Coumadin is the drug of choice but considering his clinical presentation and co-morbidities including history of alcoholism I do not feel the patient is an appropriate candidate for halfway A/C Echocardiography dated 09/02/2017 revealed probable preserved LV function, but can't R/O regional wall motion abnormality - Current Medication List Current Medications Acetaminophen (Tylenol -) 650 mg NR Q6H PRN PRN Reason: FEVER OR PAIN Last Admin: 09/16/17 18:27 Dose: 650 mg Chlorhexidine Gluconate (Peridex -) 15 ml MM BID [facility] Last Admin: 10/01/17 00:21 Dose: Not Given Ferrous Sulfate (Feosol -) 325 mg PO DAILY [facility] Last Admin: 09/30/17 09:28 Dose: Not Given Folic Acid (Folic Acid -) 1 mg PO DAILY [facility] Last Admin: 09/30/17 09:28 Dose: Not Given Heparin Sodium (Porcine) (Heparin -) 5,000 unit SQ TID [facility] Last Admin: 10/01/17 00:21 Dose: 5,000 unit Famotidine/Sodium Chloride (Pepcid 20 Mg Premixed Ivpb -) 20 mg in 50 mls @ 100 mls/hr IVPB BID [facility] Last Admin: 10/01/17 00:20 Dose: 100 mls/hr Dextrose/Sodium Chloride (D5-1/2ns -) 1,000 mls @ 42 mls/hr IV ASDIR [facility] Last Admin: 09/30/17 14:40 Dose: 42 mls/hr Amiodarone HCl 450 mg/ (Dextrose) 250 mls @ 16.66 mls/hr IVPB TITR [facility]; 0.5 MG/ MIN PRN Reason: Protocol Stop: 10/01/17 23:59 Metoprolol Tartrate (Lopressor Injection -) 5 mg IVPUSH Q4H [facility] Last Admin: 10/01/17 02:21 Dose: Not Given Multivitamins/Minerals (Theragran-M) 1 each PO DAILY [facility] Last Admin: 09/30/17 09:28 Dose: Not Given Mupirocin (Bactroban 2% Cream -) 1 applic TP BID [facility] Last Admin: 10/01/17 00:21 Dose: 1 applic Sevelamer Carbonate (Renvela -) 800 mg PO TIDCM [facility] Last Admin: 09/30/17 17:21 Dose: Not Given Thiamine HCl (Vitamin B1 -) 100 mg PO DAILY [facility] Last Admin: 09/30/17 09:28 Dose: Not Given Review of systems: Unable to obtain - Objective Vital Signs: Last Vital Signs Temp Pulse Resp BP Pulse Ox 98.4 F 96 H 26 H 158/99 100 10/01/17 06:00 10/01/17 06:00 10/01/17 06:00 10/01/17 06:00 10/01/17 00:39 Intake & Output 09/28/17 09/29/17 09/30/17 10/01/17 23:59 23:59 23:59 23:59 Intake Total 270 1150 2000 624 Output Total 730 2050 2120 600 Balance -460 -900 -120 24 Weight 191 lb 3.2 oz 181 lb 8 oz 185 lb 9 oz 183 lb 3.266 oz Neck: Supple Negative JVD Cardiovascular: S1 S2 Regular Rate and Rhythm No Murmurs Respiratory: Bilateral Scattered Rhonchi Gastrointestinal: Soft Benign Normal Bowel Sounds Ext: Edema Labs: CBC, BMP 10/01/17 06:15 BMP from this AM pending Assessment/Plan ASSESSMENT: 1. Paroxysmal atrial fibrillation [id number] score of 2, currently in sinus rhythm off of Eliquis therapy as outlined above, on IV Amiodarone 2. Acute hypoxic respiratory failure, post extubation, pulmonary infiltrates/ pulmonary edema improved 3. Cavitating pneumonia, MSSA bacteremia, post septic shock no evidence of endocarditis by ALISA criteria 4. Diastolic LV dysfunction with class I-II NYHA congestive heart failure, volume overload, resolved 5. Osteomyelitis T9-T10 discitis 6. Loculated effusion post chest tube insertion, remains in situ 7. History of alcohol dependence 8. Acute renal insufficiency 9. Hypernatremia 10. Anemia, dropping H/H PLAN: 1. As outlined above defer halfway A/C considering his presentation and co- morbidities, and ideal choice would be Coumadin given his renal function 2. Continue IV Lopressor pending PO intake change to Q6h, hemodynamics permitting 3. Continue IV Amiodarone pending PO intake 4. Consider transfusion to maintain Hg equal or > 8.0 5. Follow BMP from this AM 6. Chest tube management as per the ICU team Overall poor prognosis Chnag Blackwell M.D.
[2017-10-01 06:58] LABS: ALK PHOS 125 U/L (45-117); CREATININE 5.5 mg/dL (0.7-1.3); PHOSPHOROUS 5.8 mg/dL (2.5-4.9); SGOT/AST 29 U/L (15-37); SGPT/ALT < 6 U/L (12-78); TOT PROT 7.5 g/dl (6.4-8.2)
--- NOTE | 2017-10-01 07:36 | PN ---
Physical Exam: 24H Events: -strict NPO, traumatic NGT, daughter consented to PEG -rapid Afib with RVR, started on amio gtt --> NSR in AM -Hgb 6.8, transfused 1U -Reintubated, OGT placed SUBJECTIVE: Patient seen and examined in ICU. Awake, alert, confused. Audible gurgling in upper airway OBJECTIVE: Vital Signs Period Temp Pulse Resp BP Sys/Jeff Pulse Ox Last 24 Hr 98.4 F-98.8 F 92-160 20-38 120-177/78-111 99-100 Intake & Output 09/28/17 09/29/17 09/30/17 10/01/17 23:59 23:59 23:59 23:59 Intake Total 270 1150 2000 2430 Output Total 730 2050 2120 1600 Balance -460 -900 -120 830 Weight 86.727 kg 82.327 kg 84.17 kg 83.1 kg GENERAL: awake, alert, tachypneic, confused EYES: sclera anicteric, conjunctiva clear ENT: crusted/clotted blood in oropharynx LUNGS: b/l rhonchi HEART: rrr, normal s1/s2 ABDOMEN: Soft, ntnd EXTREMITIES: 2+ pulses, wwp, 1+ pitting edema bilaterally SKIN: bilateral flank confluent rash resolved, R anterior norris lesions improving CBC, BMP 10/01/17 06:15 10/01/17 06:15 Hepatic Panel Direct Bilirubin 1.8 mg/dL (0.0-0.2) H D 09/09/17 05:00 Total Bilirubin 1.0 mg/dL (0.2-1.0) D 10/01/17 06:15 AST 29 U/L (15-37) 10/01/17 06:15 ALT < 6 U/L (12-78) L D 10/01/17 06:15 Alkaline Phosphatase 125 U/L (45-117) H 10/01/17 06:15 Albumin 2.0 g/dl (3.4-5.0) L 10/01/17 06:15 Microbiology 09/22/17 13:45 Blood - Peripheral Venous Blood Culture - Final NO GROWTH AFTER 5 DAYS INCUBATION 09/22/17 13:45 Blood - Peripheral Venous Blood Culture - Final NO GROWTH AFTER 5 DAYS INCUBATION Active Medications Acetaminophen (Tylenol -) 650 mg NR Q6H PRN PRN Reason: FEVER OR PAIN Last Admin: 09/16/17 18:27 Dose: 650 mg Chlorhexidine Gluconate (Peridex -) 15 ml MM BID [facility] Last Admin: 10/01/17 09:12 Dose: Not Given Ferrous Sulfate (Feosol -) 325 mg PO DAILY [facility] Last Admin: 10/01/17 09:12 Dose: Not Given Folic Acid (Folic Acid -) 1 mg PO DAILY [facility] Last Admin: 10/01/17 09:12 Dose: Not Given Famotidine/Sodium Chloride (Pepcid 20 Mg Premixed Ivpb -) 20 mg in 50 mls @ 100 mls/hr IVPB BID [facility] Last Admin: 10/01/17 09:18 Dose: 100 mls/hr Dextrose/Sodium Chloride (D5-1/2ns -) 1,000 mls @ 42 mls/hr IV ASDIR [facility] Last Admin: 10/01/17 14:01 Dose: 42 mls/hr Amiodarone HCl 450 mg/ (Dextrose) 250 mls @ 16.66 mls/hr IVPB TITR [facility]; 0.5 MG/ MIN PRN Reason: Protocol Stop: 10/01/17 23:59 Last Admin: 10/01/17 06:00 Dose: 0.5 mg/min, 16.66 mls/hr Propofol (Diprivan -) 1,000,000 mcg in 100 mls @ 2.493 mls/hr IVPB TITR [facility]; 5 MCG/KG/MIN PRN Reason: Protocol Last Admin: 10/01/17 14:40 Dose: 25 mcg/kg/min, 12.465 mls/hr Metoprolol Tartrate (Lopressor Injection -) 5 mg IVPUSH Q6H [facility] Last Admin: 10/01/17 15:44 Dose: 5 mg Multivitamins/Minerals (Theragran-M) 1 each PO DAILY [facility] Last Admin: 10/01/17 09:12 Dose: Not Given Mupirocin (Bactroban 2% Cream -) 1 applic TP BID [facility] Last Admin: 10/01/17 14:41 Dose: 1 applic Sevelamer Carbonate (Renvela -) 800 mg PO TIDCM [facility] Last Admin: 10/01/17 17:26 Dose: Not Given Thiamine HCl (Vitamin B1 -) 100 mg PO DAILY [facility] Last Admin: 10/01/17 09:13 Dose: Not Given ASSESSMENT/PLAN: 66yo man with PMH of EtOH abuse and HTN who is admitted (08/31) for acute hypoxic respiratory failure requiring mechanical ventilation (09/02-09/19, 09/24- ). Reintubated today. Continues to have cavitary PNA with loculated effusions bilaterally, R pigtail CT with minimal drainage, and acute thoracic osteomyletitis (T9-T10). Antibiotic changed from Cefazolin (09/16-09/28) to Vancomycin on 09/29 (renally dosed) given possible allergic reaction (bilateral flank rash now resolving). Renal function continues to worsen (129/5.5), however he is still maintaining good UOP. Renal considering HD, attempting to get consent from daughter. #acute hypoxic respiratory failure -Vent mgmt per ICU team, daily SBT and sedation as tolerated -ICU team to d/c R chest tube #ARF, Renal following, considering HD, unable to reach daughter Natasha for consent today, will try again tomorrow -Ferrous Sulfate 325 mg PO DAILY and Sevelamer Carbonate (Renvela) 800 mg PO TID -Strict I&Os, hines, Renal dose for meds #Acute blood loss anemia, possible from NGT, no further signs of bleeding -ENT consulted, packing oropharynx -transfuse 1U PRBCs #sepsis 2/2 cavitary PNA, acute osteomyelitis -ID following, long-term abx needed for acute osteomyelitis (at least 6 wks) -Vancomycin IV, dosed renally, check Random Vanc level daily #GI bleed, likely 2/2 trauma from rectal tube, s/p 3Ux PRBCs, Hgb stable, no further bleeds -Trend H&H, transfuse Hgb<7 #Afib - recurrent episode last night, started on amio gtt -Cardiology following -Switch amio gtt to PO amio for rate control -hold AC now given co-morbidities (CHADVASC 2) #suspected chronic diastolic heart failure - ECHO 09/02/2017 probable preserved LV function, but can't R/O regional wall motion abnormality -Metoprolol 5mg IV Q6H [facility] -consider hydralazine prn #Dysphagia, if extubated will need [employer] re-eval #EtOH abuse -Monitor for signs of EtOH withdrawal -MVI, thiamine 100mg PO qd, folic acid 1mg PO daily #FEN -Free water flushes -lyte abnormalities noted, Renal considering HD -Start enteral feeds via OGT #PPX -Heparin 5000U SQ TID -GI - pepcid 20mg IV BID #Dispo: continue ICU monitoring FULL code d/w Dr. Zakia Salter MD PGY-1 Visit type - Emergency Visit Emergency Visit: No - New Patient This patient is new to me today: No - Critical Care Critical Care patient: Yes Total Critical Care Time (in minutes): 40 Critical Care Statement: The care of this patient involved high complexity decision making to prevent further life threatening deterioration of the patient 's condition and/or to evaluate & treat vital organ system(s) failure or risk of failure.
[2017-10-01] MEDS: SEVELAMER CARBONATE 800 MG TAB (FP) PO SCH ×3 (08:54→17:26)
[2017-10-01] MEDS ORDERED: METOPROLOL TARTRATE 5 MG/5 ML VIAL ONE (08:56)
[2017-10-01] MEDS: FOLIC ACID 1 MG TABLET (FP) PO SCH (09:12)
[2017-10-01] MEDS: MULTIVITAMINS THER W-MINERALS COMBO TABLET (FP) PO SCH (09:12)
[2017-10-01] MEDS: FERROUS SO4 325 MG TABLET (FP) PO SCH (09:12)
[2017-10-01] MEDS: THIAMINE HCL 100 MG TABLET (FP) PO SCH (09:13)
--- NOTE | 2017-10-01 10:35 | EKG ---
Test Reason : Blood Pressure : / mmHG Vent. Rate : 090 BPM Atrial Rate : 090 BPM P-R Int : 162 ms QRS Dur : 086 ms QT Int : 394 ms P-R-T Axes : 046 007 063 degrees QTc Int : 481 ms SINUS RHYTHM WITH OCCASIONAL PREMATURE VENTRICULAR COMPLEXES PROLONGED QT ABNORMAL ECG WHEN COMPARED WITH ECG OF 30-SEP-2017 20:49, SINUS RHYTHM HAS REPLACED ATRIAL FIBRILLATION VENT. RATE HAS DECREASED BY 56 BPM NONSPECIFIC T WAVE ABNORMALITY, IMPROVED IN LATERAL LEADS REPEAT EKG IF CLINICALLY INDICATED Confirmed by CONNIE REEVES MD ([id number]) on 10/01/2017 10:35:42 AM Referred By: Nash RACHEL Confirmed By:CONNIE REEVES MD
--- NOTE | 2017-10-01 10:46 | PN ---
Progress Note, Physician History of Present Illness: Awake, alert. Tachypneic. Gurgling upper airway sounds. Offers no complaints Afebrile WBC remains elevated 4% eos plt decreased 129 Vancomycin T 21. Cr stable @ 5.5 - Current Medication List Current Medications: Active Medications Acetaminophen (Tylenol -) 650 mg NR Q6H PRN PRN Reason: FEVER OR PAIN Last Admin: 09/16/17 18:27 Dose: 650 mg Chlorhexidine Gluconate (Peridex -) 15 ml MM BID [facility] Last Admin: 10/01/17 09:12 Dose: Not Given Ferrous Sulfate (Feosol -) 325 mg PO DAILY [facility] Last Admin: 10/01/17 09:12 Dose: Not Given Folic Acid (Folic Acid -) 1 mg PO DAILY [facility] Last Admin: 10/01/17 09:12 Dose: Not Given Heparin Sodium (Porcine) (Heparin -) 5,000 unit SQ TID [facility] Last Admin: 10/01/17 07:03 Dose: Not Given Famotidine/Sodium Chloride (Pepcid 20 Mg Premixed Ivpb -) 20 mg in 50 mls @ 100 mls/hr IVPB BID [facility] Last Admin: 10/01/17 09:18 Dose: 100 mls/hr Dextrose/Sodium Chloride (D5-1/2ns -) 1,000 mls @ 42 mls/hr IV ASDIR [facility] Last Admin: 09/30/17 14:40 Dose: 42 mls/hr Amiodarone HCl 450 mg/ (Dextrose) 250 mls @ 16.66 mls/hr IVPB TITR [facility]; 0.5 MG/ MIN PRN Reason: Protocol Stop: 10/01/17 23:59 Last Admin: 10/01/17 06:00 Dose: 0.5 mg/min, 16.66 mls/hr Metoprolol Tartrate (Lopressor Injection -) 5 mg IVPUSH Q6H [facility] Last Admin: 10/01/17 08:57 Dose: 5 mg Multivitamins/Minerals (Theragran-M) 1 each PO DAILY [facility] Last Admin: 10/01/17 09:12 Dose: Not Given Mupirocin (Bactroban 2% Cream -) 1 applic TP BID [facility] Last Admin: 10/01/17 00:21 Dose: 1 applic Sevelamer Carbonate (Renvela -) 800 mg PO TIDCM [facility] Last Admin: 10/01/17 08:54 Dose: Not Given Thiamine HCl (Vitamin B1 -) 100 mg PO DAILY [facility] Last Admin: 10/01/17 09:13 Dose: Not Given - Objective Vital Signs: Vital Signs Temperature 98.4 F 10/01/17 06:00 Pulse Rate 92 H 10/01/17 08:57 Respiratory Rate 18 10/01/17 08:00 Blood Pressure 160/110 10/01/17 08:57 O2 Sat by Pulse Oximetry (%) 100 10/01/17 02:40 Constitutional: Yes: Mild Distress Eyes: Yes: Conjunctiva Clear Cardiovascular: Yes: S1, S2 Respiratory: Yes: Rhonchi Gastrointestinal: Yes: Normal Bowel Sounds, Soft, Abdomen, Obese. No: Tenderness Edema: Yes Labs: CBC, BMP 10/01/17 06:15 10/01/17 06:15 INR, PTT INR 1.12 (0.82-1.09) 09/26/17 06:10 Assessment/Plan MSSA bacteremia, likely skin source Vertebral osteo T9T10 S/P Resp failure Possible aspiration pneumonia Hx ETOH abuse Azotemia ? AIN Work up for AIN in progress (? secondary to B-lactam) Continue vancomycin for now, adjusted for renal failure Will hold today's dose ( trough 21) Will need technician terminal and repeater (6-8w) anti- staph treatment
[2017-10-01] MEDS ORDERED: RAPID SEQUENCE INTUBATION KIT NR ONE (11:37)
[2017-10-01] MEDS ORDERED: PROPOFOL 1,000,000 MCG/100 ML VIAL ONE (11:37)
--- NOTE | 2017-10-01 12:09 | PN ---
Progress Note, Physician History of Present Illness: Transfused PRBC. No melena, hematochezia, or hematemesis. Oropharyngeal bleeding overnight Awake, confused - Current Medication List Current Medications: Active Medications Acetaminophen (Tylenol -) 650 mg NR Q6H PRN PRN Reason: FEVER OR PAIN Last Admin: 09/16/17 18:27 Dose: 650 mg Chlorhexidine Gluconate (Peridex -) 15 ml MM BID [facility] Last Admin: 10/01/17 09:12 Dose: Not Given Ferrous Sulfate (Feosol -) 325 mg PO DAILY [facility] Last Admin: 10/01/17 09:12 Dose: Not Given Folic Acid (Folic Acid -) 1 mg PO DAILY [facility] Last Admin: 10/01/17 09:12 Dose: Not Given Heparin Sodium (Porcine) (Heparin -) 5,000 unit SQ TID [facility] Last Admin: 10/01/17 07:03 Dose: Not Given Famotidine/Sodium Chloride (Pepcid 20 Mg Premixed Ivpb -) 20 mg in 50 mls @ 100 mls/hr IVPB BID [facility] Last Admin: 10/01/17 09:18 Dose: 100 mls/hr Dextrose/Sodium Chloride (D5-1/2ns -) 1,000 mls @ 42 mls/hr IV ASDIR [facility] Last Admin: 09/30/17 14:40 Dose: 42 mls/hr Amiodarone HCl 450 mg/ (Dextrose) 250 mls @ 16.66 mls/hr IVPB TITR [facility]; 0.5 MG/ MIN PRN Reason: Protocol Stop: 10/01/17 23:59 Last Admin: 10/01/17 06:00 Dose: 0.5 mg/min, 16.66 mls/hr Metoprolol Tartrate (Lopressor Injection -) 5 mg IVPUSH Q6H [facility] Last Admin: 10/01/17 08:57 Dose: 5 mg Multivitamins/Minerals (Theragran-M) 1 each PO DAILY [facility] Last Admin: 10/01/17 09:12 Dose: Not Given Mupirocin (Bactroban 2% Cream -) 1 applic TP BID [facility] Last Admin: 10/01/17 00:21 Dose: 1 applic Sevelamer Carbonate (Renvela -) 800 mg PO TIDCM [facility] Last Admin: 10/01/17 08:54 Dose: Not Given Thiamine HCl (Vitamin B1 -) 100 mg PO DAILY [facility] Last Admin: 10/01/17 09:13 Dose: Not Given - Objective Vital Signs: Vital Signs Temperature 98.4 F 10/01/17 06:00 Pulse Rate 93 H 10/01/17 10:05 Respiratory Rate 18 10/01/17 08:00 Blood Pressure 160/110 10/01/17 08:57 O2 Sat by Pulse Oximetry (%) 96 10/01/17 10:05 Constitutional: Yes: Calm Gastrointestinal: Yes: Soft. No: Melena, Rectal Bleeding, Tenderness Neurological: Yes: Alert Psychiatric: Yes: Alert Labs: CBC, BMP 10/01/17 06:15 10/01/17 06:15 INR, PTT INR 1.12 (0.82-1.09) 09/26/17 06:10 CBCD WBC 15.0 K/mm3 (4.0-10.0) H D 10/01/17 06:15 RBC 2.34 M/mm3 (4.00-5.60) L 10/01/17 06:15 Hgb 6.8 GM/dL (11.7-16.9) L* D 10/01/17 06:15 Hct 20.3 % (35.4-49) L D 10/01/17 06:15 MCV 86.8 fl (80-96) 10/01/17 06:15 MCHC 33.4 g/dl (32.0-35.9) 10/01/17 06:15 RDW 16.8 % (11.9-15.9) H 10/01/17 06:15 Plt Count 129 K/MM3 (134-434) L D 10/01/17 06:15 MPV 7.3 fl (7.5-11.1) L 10/01/17 06:15 CMP Sodium 152 mmol/L (136-145) H 10/01/17 06:15 Potassium 3.8 mmol/L (3.5-5.1) 10/01/17 06:15 Chloride 120 mmol/L (98-107) H 10/01/17 06:15 Carbon Dioxide 15 mmol/L (21-32) L 10/01/17 06:15 Anion Gap 17 (8-16) H 10/01/17 06:15 BUN 129 mg/dL (7-18) H* 10/01/17 06:15 Creatinine 5.5 mg/dL (0.7-1.3) H 10/01/17 06:15 Creat Clearance w eGFR 10.39 (>60) 10/01/17 06:15 Calcium 7.8 mg/dL (8.5-10.1) L 10/01/17 06:15 Total Bilirubin 1.0 mg/dL (0.2-1.0) D 10/01/17 06:15 AST 29 U/L (15-37) 10/01/17 06:15 ALT < 6 U/L (12-78) L D 10/01/17 06:15 Alkaline Phosphatase 125 U/L (45-117) H 10/01/17 06:15 Total Protein 7.5 g/dl (6.4-8.2) 10/01/17 06:15 Albumin 2.0 g/dl (3.4-5.0) L 10/01/17 06:15 Problem List - Problems (1) Respiratory failure with hypoxia Code(s): J96.91 - RESPIRATORY FAILURE, UNSPECIFIED WITH HYPOXIA Qualifiers: Chronicity: acute Qualified Code(s): J96.01 - Acute respiratory failure with hypoxia (2) Staphylococcus aureus bacteremia Code(s): R78.81 - BACTEREMIA (3) History of alcohol abuse Code(s): Z87.898 - PERSONAL HISTORY OF OTHER SPECIFIED CONDITIONS (4) Gastric ulcer Code(s): K25.9 - GASTRIC ULCER, UNSP ACUTE OR CHRONIC, W/O HEMOR OR PERF (5) Rectal bleeding Code(s): K62.5 - HEMORRHAGE OF ANUS AND RECTUM Assessment/Plan Aspirating. Cannot tolerate PO. There is a concern NGT will not be tolerated and moreover, he may need nutritional support for more than 7 days. Plan PEG. Discuss with family
[2017-10-01] MEDS ORDERED: PROPOFOL 200 MG/20 ML VIAL IVPUSH ONE (12:21)
[2017-10-01] MEDS ORDERED: DESMOPRESSIN ACETATE 4 MCG/ML AMP IVPB ONE (13:01)
--- NOTE | 2017-10-01 13:21 | PROC ---
Intubation - Intubation Reason for Intubation: Respiratory Failure Time of Intubation: 12:20 Intubation Method: orotracheal Blade used: Mac (4) Tube Size (cm): 8.0 Tube position @ lip (cm): 23 Tube position confirmed by: Direct visualization, CO2 detector, Chest x-ray, Breath sounds Breath Sounds after Intubation: equal Post Intubation Xray: Yes
--- NOTE | 2017-10-01 13:26 | PN ---
Teaching Attending Note Name of Resident: Anton Zamora ATTENDING PHYSICIAN STATEMENT I saw and evaluated the patient. I reviewed the resident's note and discussed the case with the resident. I agree with the resident's findings and plan as documented. SUBJECTIVE: Pt seen and examined in the ICU. Intubated during rounds this AM, noted to have copious bleeding from oropharynx which likely pooled endotracheally causing respiratory failure. OBJECTIVE: Last Vital Signs Temp Pulse Resp BP Pulse Ox 98.4 F 90 18 163/98 96 10/01/17 06:00 10/01/17 12:00 10/01/17 12:00 10/01/17 12:00 10/01/17 10:05 Intake & Output 09/28/17 09/29/17 09/30/17 10/01/17 23:59 23:59 23:59 23:59 Intake Total 270 1150 2000 624 Output Total 730 2050 2120 600 Balance -460 -900 -120 24 Weight 191 lb 3.2 oz 181 lb 8 oz 185 lb 9 oz 183 lb 3.266 oz Gen: intubated, sedated Heart: RRR Lung: bilateral rhonchi Abd: soft, nontender Ext: no edema CBC, BMP 10/01/17 06:15 10/01/17 06:15 Active Medications Acetaminophen (Tylenol -) 650 mg NR Q6H PRN PRN Reason: FEVER OR PAIN Last Admin: 09/16/17 18:27 Dose: 650 mg Chlorhexidine Gluconate (Peridex -) 15 ml MM BID [facility] Last Admin: 10/01/17 09:12 Dose: Not Given Desmopressin Acetate (Ddavp Injection -) 25 mcg IVPB ONCE ONE Stop: 10/01/17 13:02 Ferrous Sulfate (Feosol -) 325 mg PO DAILY [facility] Last Admin: 10/01/17 09:12 Dose: Not Given Folic Acid (Folic Acid -) 1 mg PO DAILY [facility] Last Admin: 10/01/17 09:12 Dose: Not Given Heparin Sodium (Porcine) (Heparin -) 5,000 unit SQ TID [facility] Last Admin: 10/01/17 07:03 Dose: Not Given Famotidine/Sodium Chloride (Pepcid 20 Mg Premixed Ivpb -) 20 mg in 50 mls @ 100 mls/hr IVPB BID [facility] Last Admin: 10/01/17 09:18 Dose: 100 mls/hr Dextrose/Sodium Chloride (D5-1/2ns -) 1,000 mls @ 42 mls/hr IV ASDIR [facility] Last Admin: 09/30/17 14:40 Dose: 42 mls/hr Amiodarone HCl 450 mg/ (Dextrose) 250 mls @ 16.66 mls/hr IVPB TITR [facility]; 0.5 MG/ MIN PRN Reason: Protocol Stop: 10/01/17 23:59 Last Admin: 10/01/17 06:00 Dose: 0.5 mg/min, 16.66 mls/hr Propofol (Diprivan -) 1,000,000 mcg in 100 mls @ 2.493 mls/hr IVPB TITR [facility]; 5 MCG/KG/MIN PRN Reason: Protocol Metoprolol Tartrate (Lopressor Injection -) 5 mg IVPUSH Q6H [facility] Last Admin: 10/01/17 08:57 Dose: 5 mg Multivitamins/Minerals (Theragran-M) 1 each PO DAILY [facility] Last Admin: 10/01/17 09:12 Dose: Not Given Mupirocin (Bactroban 2% Cream -) 1 applic TP BID [facility] Last Admin: 10/01/17 00:21 Dose: 1 applic Sevelamer Carbonate (Renvela -) 800 mg PO TIDCM [facility] Last Admin: 10/01/17 08:54 Dose: Not Given Thiamine HCl (Vitamin B1 -) 100 mg PO DAILY [facility] Last Admin: 10/01/17 09:13 Dose: Not Given ASSESSMENT AND PLAN: Acute Hypoxic Respiratory Failure Pneumonia MSSA Bacteremia Loculated Pleural Effusions LV Diastolic Dysfunction Paroxysmal Atrial Fibrillation Acute Kidney Injury GI Bleed likely from rectal tube/ulcer Acute Blood Loss Anemia - ENT eval - monitor H/H, coags - transfuse PRBC, platelets - dDAVP - monitor urine output, creatinine - continue antibiotics - holding heparin gtt - protonix - DNase not formulary, likely would not benefit from intrapleural tPA alone - will d/c pigtail catherer - O2 to keep SpO2 >90% - will likely need tracheostomy as this is his 3rd intubation this admission likely from aspiration - DVT prophylaxis - continue ICU monitoring critical care time spent in reviewing chart, evaluating patient and formulating plan 40 min
[2017-10-01] MEDS ORDERED: DESMOPRESSIN ACETATE IVPB ONE (13:30)
[2017-10-01] MEDS ORDERED: SODIUM CHLORIDE IVPB ONE (13:30)
--- NOTE | 2017-10-01 13:33 | EKG ---
Test Reason : Blood Pressure : / mmHG Vent. Rate : 146 BPM Atrial Rate : 050 BPM P-R Int : 000 ms QRS Dur : 072 ms QT Int : 296 ms P-R-T Axes : 000 -01 -15 degrees QTc Int : 461 ms ATRIAL FIBRILLATION WITH RAPID VENTRICULAR RESPONSE WITH PREMATURE VENTRICULAR OR ABERRANTLY CONDUCTED COMPLEXES NONSPECIFIC T WAVE ABNORMALITY ABNORMAL ECG WHEN COMPARED WITH ECG OF 18-SEP-2017 05:40, NONSPECIFIC T WAVE ABNORMALITY NOW EVIDENT IN INFERIOR LEADS NONSPECIFIC T WAVE ABNORMALITY NOW EVIDENT IN LATERAL LEADS Confirmed by CONNIE REEVES MD ([id number]) on 10/01/2017 1:32:52 PM Referred By: Confirmed By:CONNIE REEVES MD
[2017-10-01] MEDS: DEXTROSE 5%-0.45% SALINE 1,000 ML IV SCH ×2 (14:01→20:08)
[2017-10-01] MEDS: PROPOFOL 1,000,000 MCG/100 ML VIAL IVPB SCH ×2 (14:40→18:09)
--- NOTE | 2017-10-01 16:18 | PN ---
Teaching Attending Note Name of Resident: Lydia Salter ATTENDING PHYSICIAN STATEMENT I saw and evaluated the patient. I reviewed the resident's note and discussed the case with the resident. I agree with the resident's findings and plan as documented. pt evaluated at 0900 this AM SUBJECTIVE:c/o difficulty breathing. denies pain, N/V/C/D OBJECTIVE: Last Vital Signs Temp Pulse Resp BP Pulse Ox 98.4 F 96 H 26 H 163/103 96 10/01/17 06:00 10/01/17 15:44 10/01/17 14:00 10/01/17 15:44 10/01/17 10:05 Intake & Output 09/28/17 09/29/17 09/30/17 10/01/17 23:59 23:59 23:59 23:59 Intake Total 270 1150 2000 624 Output Total 730 2050 2120 600 Balance -460 -900 -120 24 Weight 191 lb 3.2 oz 181 lb 8 oz 185 lb 9 oz 183 lb 3.266 oz General mild tachypnic. minimal secretions CV S1 S2 RRR no murmur/rub/gallop Lungs course breath sounds diffusely decreased breath sounds at bases abdomen soft NT/ND Extremities trace pitting edema ASSESSMENT AND PLAN: 66 yo M with PMH alcohol abuse, HTN who presented to the ER after being found on the floor. 1. Acute hypoxic respiratory failure- likely due to cavitary PNA. s/p extubated 09/19 and reintubated and extubated 09/27. currently 100% on 4L NC. will need frequent suctioning, chest PT. improved after deep suctioning. low threshold for re-intubation. crit care on board. 2. Sepsis secondary to cavitary healthcare-associated pneumonia, MSSA bacteremia and vertebral OM- with complicated loculated effusion. minimal output from chest tube. s/p TPA placed through tube with no improvement. on vanco by level. CT surgery and ID on board 3. New onset afib-burst of RVR last night. now on amio ggt. anticoagulation on hold due to medical problems. should ideally be on coumadin once improved. 4. Acute kidney injury with hyperphosphatemia-progressively worsening uremia with some uremic encephalopathy. pt agreed to HD however now confused. multiple attempts to reach daughter for consent. will attempt again. if not may need to emergently dialyize if continues to worsen.Nephrology on board. 5. Anemia- s/p 2 units PRBC this admission. acute drop possible due to trauma of NGT placement. will txn 1 unit. check post cbc. on iron supplementations. 6. Hepatic transaminitis- stable. US shows hepatosplenomegaly and fatty infiltration of liver 7. Thrombocytopenia- Secondary to alcohol, splenomegaly. now stable 8. HTN- initially hypotensive. now off pressors. cont medications 9. 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 DVT prophylaxis- heparin ggt 12. Dysphagia-likely due to weakness. NPO. unable to place NGT yesterday. significant bleeding. ENT consulted for packing. GI consulted for PEG placement. 13. MICU monitoring as breathing very labile The care of this patient involved high complexity decision making to prevent further life threatening deterioration of the patient's condition and/or to evaluate & treat vital organ system(s) failure or risk of failure. 50 mins
--- NOTE | 2017-10-01 16:57 | PN ---
Progress Note, Physician History of Present Illness: Pt seen and examined at bedside. He was intubated today. He remains in the ICU. - Current Medication List Current Medications: Active Medications Acetaminophen (Tylenol -) 650 mg NR Q6H PRN PRN Reason: FEVER OR PAIN Last Admin: 09/16/17 18:27 Dose: 650 mg Chlorhexidine Gluconate (Peridex -) 15 ml MM BID [facility] Last Admin: 10/01/17 09:12 Dose: Not Given Ferrous Sulfate (Feosol -) 325 mg PO DAILY [facility] Last Admin: 10/01/17 09:12 Dose: Not Given Folic Acid (Folic Acid -) 1 mg PO DAILY [facility] Last Admin: 10/01/17 09:12 Dose: Not Given Famotidine/Sodium Chloride (Pepcid 20 Mg Premixed Ivpb -) 20 mg in 50 mls @ 100 mls/hr IVPB BID [facility] Last Admin: 10/01/17 09:18 Dose: 100 mls/hr Dextrose/Sodium Chloride (D5-1/2ns -) 1,000 mls @ 42 mls/hr IV ASDIR [facility] Last Admin: 10/01/17 14:01 Dose: 42 mls/hr Amiodarone HCl 450 mg/ (Dextrose) 250 mls @ 16.66 mls/hr IVPB TITR [facility]; 0.5 MG/ MIN PRN Reason: Protocol Stop: 10/01/17 23:59 Last Admin: 10/01/17 06:00 Dose: 0.5 mg/min, 16.66 mls/hr Propofol (Diprivan -) 1,000,000 mcg in 100 mls @ 2.493 mls/hr IVPB TITR [facility]; 5 MCG/KG/MIN PRN Reason: Protocol Last Admin: 10/01/17 14:40 Dose: 25 mcg/kg/min, 12.465 mls/hr Metoprolol Tartrate (Lopressor Injection -) 5 mg IVPUSH Q6H [facility] Last Admin: 10/01/17 15:44 Dose: 5 mg Multivitamins/Minerals (Theragran-M) 1 each PO DAILY [facility] Last Admin: 10/01/17 09:12 Dose: Not Given Mupirocin (Bactroban 2% Cream -) 1 applic TP BID [facility] Last Admin: 10/01/17 14:41 Dose: 1 applic Sevelamer Carbonate (Renvela -) 800 mg PO TIDCM [facility] Last Admin: 10/01/17 14:01 Dose: Not Given Thiamine HCl (Vitamin B1 -) 100 mg PO DAILY [facility] Last Admin: 10/01/17 09:13 Dose: Not Given - Objective Vital Signs: Vital Signs Temperature 98.4 F 10/01/17 06:00 Pulse Rate 96 H 10/01/17 15:44 Respiratory Rate 26 H 10/01/17 14:00 Blood Pressure 163/103 10/01/17 15:44 O2 Sat by Pulse Oximetry (%) 96 10/01/17 10:05 Constitutional: Yes: Calm Eyes: Yes: Conjunctiva Clear Cardiovascular: Yes: S1, S2 Respiratory: Yes: Mechanically Ventilated, Other (chest tube) Gastrointestinal: Yes: Soft Genitourinary: Yes: Freeman Present Musculoskeletal: Yes: Muscle Weakness Edema: Yes Edema: LLE: Trace, RLE: Trace Neurological: Yes: Lethargy Labs: CBC, BMP 10/01/17 06:15 10/01/17 06:15 INR, PTT INR 1.12 (0.82-1.09) 09/26/17 06:10 - ....Imaging Chest X-ray: Report Reviewed Problem List - Problems (1) Abuse, drug or alcohol Code(s): F19.10 - OTHER PSYCHOACTIVE SUBSTANCE ABUSE, UNCOMPLICATED (2) Withdrawal symptoms, alcohol Code(s): F10.239 - ALCOHOL DEPENDENCE WITH WITHDRAWAL, UNSPECIFIED Qualifiers: Complication of substance-induced condition: uncomplicated Qualified Code(s ): F10.230 - Alcohol dependence with withdrawal, uncomplicated (3) Hyponatremia Code(s): E87.1 - HYPO-OSMOLALITY AND HYPONATREMIA (4) Respiratory failure with hypoxia Code(s): J96.91 - RESPIRATORY FAILURE, UNSPECIFIED WITH HYPOXIA Qualifiers: Chronicity: acute Qualified Code(s): J96.01 - Acute respiratory failure with hypoxia (5) Staphylococcus aureus bacteremia Code(s): R78.81 - BACTEREMIA (6) Acute kidney injury Code(s): N17.9 - ACUTE KIDNEY FAILURE, UNSPECIFIED (7) Anemia Code(s): D64.9 - ANEMIA, UNSPECIFIED Qualifiers: Anemia type: unspecified type Qualified Code(s): D64.9 - Anemia, unspecified Assessment/Plan Current Medications Generic Name Dose Route Start Last Admin Trade Name Ramo PRN Reason Stop Dose Admin Acetaminophen 650 mg 09/07/17 05:53 09/16/17 18:27 Tylenol - NR 650 mg Q6H PRN Administration FEVER OR PAIN Chlorhexidine Gluconate 15 ml 09/08/17 12:30 10/01/17 09:12 Peridex - MM Not Given BID [facility] Ferrous Sulfate 325 mg 09/05/17 12:00 10/01/17 09:12 Feosol - PO Not Given DAILY [facility] Folic Acid 1 mg 09/02/17 10:00 10/01/17 09:12 Folic Acid - PO Not Given DAILY [facility] Famotidine/Sodium Chloride 20 mg in 50 mls @ 100 mls/hr 09/28/17 10:00 09:18 Pepcid 20 Mg Premixed Ivpb - IVPB 100 mls/hr BID [facility] Administration Dextrose/Sodium Chloride 1,000 mls @ 42 mls/hr 09/30/17 13:30 10/01/17 14:01 D5-1/2ns - IV 42 mls/hr ASDIR [facility] Administration Amiodarone HCl 450 mg/ 250 mls @ 16.66 mls/hr 10/01/17 06:00 10/01/17 06:00 Dextrose IVPB 10/01/17 23:59 0.5 mg/min TITR [facility] 16.66 mls/hr Protocol Administration 0.5 MG/MIN Propofol 1,000,000 mcg in 100 mls @ 2.493 mls/hr 10/01/17 12:30 10/01/17 14: 40 Diprivan - IVPB 25 mcg/kg/min TITR [facility] 12.465 mls/hr Protocol Administration 5 MCG/KG/MIN Metoprolol Tartrate 5 mg 10/01/17 07:15 10/01/17 15:44 Lopressor Injection - IVPUSH 5 mg Q6H [facility] Administration Multivitamins/Minerals 1 each 09/02/17 10:00 10/01/17 09:12 Theragran-M PO Not Given DAILY [facility] Mupirocin 1 applic 09/23/17 10:00 10/01/17 14:41 Bactroban 2% Cream - TP 1 applic BID [facility] Administration Sevelamer Carbonate 800 mg 09/12/17 17:30 10/01/17 14:01 Renvela - PO Not Given TIDCM [facility] Thiamine HCl 100 mg 09/02/17 10:00 10/01/17 09:13 Vitamin B1 - PO Not Given DAILY [facility] Impression 1. ALEXANDRA 2. fluid overload 3. hypoalbuminemia 4. respiratory failure requiring intubation 5. anemia 6. etoh abuse 7. fevers 8. hypokalemia 9. pleural effusion 10. hypernatremia 11. GI bleed Plan - unable to reach his daughter for consent for HD, Emelina [phone]. - monitor urine ouput - cont vent support, pt intubated again - start free water with ng tube feeds after placement - discussed with ICU team, pt will need trache - ALEXANDRA is multifactorial - monitor hg - cont chest tube care - monitor pulse ox - repeat cxr in am - keep pt in ICU - will follow Dr Peres
[2017-10-01 18:42] LABS: BASOPHIL 0.5 % (0-2.0); EOSINOPHIL 4.9 % (0-4.5); MCHC 33.6 g/dl (32.0-35.9); MEAN CELL VOLUME 86.3 fl (80-96); MEAN PLT VOLUME 7.1 fl (7.5-11.1); NEUTROPHILS 77.2 % (42.8-82.8); PLATELET COUNT 141 K/MM3 (134-434); RDW 16.9 % (11.9-15.9); WHITE BLOOD COUNT 16.2 K/mm3 (4.0-10.0)
[2017-10-01 18:53] LABS: INR 1.77 (0.82-1.09)
[2017-10-01 18:56] LABS: ACTIVATED PTT 32.5 SECONDS (26.9-34.4)
--- NOTE | 2017-10-01 19:12 | CON.ENT ---
Consult Consult Specialty:: ENT Reason for Consultation:: Oral bleeding - History of Present Illness Chief Complaint: Oral bleeding History of Present Illness: 67 yo male with heavy oral bleeding after attempt of NGT placement yesterday. Pt needed to be intubated this AM to secure his airway given he was unable to tolerate his secretions. Pt has since been given blood products with seems to have stopped the bleeding. He also had an oral pack placed as well. No nasal bleeding noted - History Source History Provided By: Caregiver Limitations to Obtaining History: Clinical Condition - Past Medical History Cardio/Vascular: Yes: HTN Musculoskeletal: Yes: Other (left rib pain ) Additional Medical History: chronic alcoholism with multiple detox and rehabs in the past.most recent at [facility] x 12 months - states he began drinking immediately after d/c . - Alcohol/Substance Use Hx Alcohol Use: Yes Number of Drinks Daily: 8 (He states he drinks about 8 16oz drinks per day) - Smoking History Smoking history: Former smoker Have you smoked in the past 12 months: No If you are a former smoker, when did you quit?: 42 years ago - Social History ADL: Independent Home Medications - Allergies Allergies/Adverse Reactions: Allergies Allergy/AdvReac Type Severity Reaction Status Date / Time No Known Allergies Allergy Verified 07/16/17 15:34 - Home Medications Home Medications: Ambulatory Orders Unobtainable [Unobtainable] 08/31/17 Review of Systems - Review of Systems HENT: reports: Other (oral bleeding) Physical Exam-ENT Vital Signs: Vital Signs Temperature 98.4 F 10/01/17 06:00 Pulse Rate 98 H 10/01/17 18:20 Respiratory Rate 27 H 10/01/17 17:43 Blood Pressure 159/90 10/01/17 18:20 O2 Sat by Pulse Oximetry (%) 96 10/01/17 10:05 Constitutional: Yes: Other (Sedated and intubated) Nose: Yes: Other (dry bloody crusts right nostril, no active bleeding) Oral/Pharynx: Yes: Other (ET in place and secure, kerlix packing in oral cavity , dry, no active bleeding) Problem List - Problems (1) Oral bleeding Assessment/Plan: PT with oral bleeding after attempt of NGT placement which has stopped since intubated, packed and hematologically stabilized. Would remove oral pack tomorrow and treat as needed. Code(s): K13.79 - OTHER LESIONS OF ORAL MUCOSA
[2017-10-01 22:37] LABS: MCH 28.5 pg (25.7-33.7); MCHC 32.9 g/dl (32.0-35.9); MEAN CELL VOLUME 86.6 fl (80-96); MEAN PLT VOLUME 7.3 fl (7.5-11.1); PLATELET COUNT 143 K/MM3 (134-434); RDW 16.8 % (11.9-15.9); WHITE BLOOD COUNT 14.4 K/mm3 (4.0-10.0)
[2017-10-02] MEDS: METOPROLOL TARTRATE 5 MG/5 ML VIAL IVPUSH SCH ×2 (02:41→07:15)
[2017-10-02] MEDS: PROPOFOL 1,000,000 MCG/100 ML VIAL IVPB SCH ×2 (05:44→11:32)
[2017-10-02 06:19] LABS: BASOPHIL 0.9 % (0-2.0); EOSINOPHIL 9.4 % (0-4.5); MCH 29.2 pg (25.7-33.7); MCHC 33.8 g/dl (32.0-35.9); MEAN CELL VOLUME 86.5 fl (80-96); MEAN PLT VOLUME 7.4 fl (7.5-11.1); PLATELET COUNT 149 K/MM3 (134-434); RDW 17.1 % (11.9-15.9); WHITE BLOOD COUNT 11.9 K/mm3 (4.0-10.0)
--- NOTE | 2017-10-02 06:36 | PN ---
Progress Note (short form) - Note Progress Note: Chief Compliant: Events noted, notes reviewed, re-intubated related respiratory failure, currently in sinus rhythm off of IV Amiodarone History of Present Illness: Seen and examined in the ICU. Events noted, notes reviewed, re-intubated related respiratory failure, currently in sinus rhythm off of IV Amiodarone As outlined in prior notes Eliquis was D/C and ideally Coumadin is the drug of choice but considering his clinical presentation and co-morbidities including history of alcoholism I do not feel the patient is an appropriate candidate for shelter A/C Echocardiography dated 09/02/2017 revealed probable preserved LV function, but can't R/O regional wall motion abnormality - Current Medication List Current Medications Acetaminophen (Tylenol -) 650 mg NR Q6H PRN PRN Reason: FEVER OR PAIN Last Admin: 09/16/17 18:27 Dose: 650 mg Chlorhexidine Gluconate (Peridex -) 15 ml MM BID [facility] Last Admin: 10/01/17 21:01 Dose: 15 ml Ferrous Sulfate (Feosol -) 325 mg PO DAILY [facility] Last Admin: 10/01/17 09:12 Dose: Not Given Folic Acid (Folic Acid -) 1 mg PO DAILY [facility] Last Admin: 10/01/17 09:12 Dose: Not Given Famotidine/Sodium Chloride (Pepcid 20 Mg Premixed Ivpb -) 20 mg in 50 mls @ 100 mls/hr IVPB BID [facility] Last Admin: 10/01/17 21:00 Dose: 100 mls/hr Dextrose/Sodium Chloride (D5-1/2ns -) 1,000 mls @ 42 mls/hr IV ASDIR [facility] Last Admin: 10/01/17 20:08 Dose: 42 mls/hr Propofol (Diprivan -) 1,000,000 mcg in 100 mls @ 2.493 mls/hr IVPB TITR [facility]; 5 MCG/KG/MIN PRN Reason: Protocol Last Admin: 10/02/17 05:44 Dose: 35 mcg/kg/min, 17.451 mls/hr Metoprolol Tartrate (Lopressor Injection -) 5 mg IVPUSH Q6H [facility] Last Admin: 10/02/17 02:41 Dose: 5 mg Multivitamins/Minerals (Theragran-M) 1 each PO DAILY [facility] Last Admin: 10/01/17 09:12 Dose: Not Given Mupirocin (Bactroban 2% Cream -) 1 applic TP BID [facility] Last Admin: 10/01/17 21:03 Dose: 1 applic Sevelamer Carbonate (Renvela -) 800 mg PO TIDCM [facility]PL[facility] Last Admin: 10/01/17 17:26 Dose: Not Given Thiamine HCl (Vitamin B1 -) 100 mg PO DAILY [facility] Last Admin: 10/01/17 09:13 Dose: Not Given Review of systems: Unable to obtain - Objective Vital Signs: Last Vital Signs Temp Pulse Resp BP Pulse Ox 98.9 F 88 25 H 147/97 100 10/02/17 05:43 10/02/17 05:43 10/02/17 05:43 10/02/17 05:44 10/01/17 20:49 Intake & Output 09/29/17 09/30/17 10/01/17 10/02/17 23:59 23:59 23:59 23:59 Intake Total 1150 1999 2430 841 Output Total 20490 1600 1000 Balance -900 -120 830 -159 Weight 181 lb 8 oz 185 lb 9 oz 183 lb 3.266 oz 185 lb 3.013 oz Neck: Supple Negative JVD Cardiovascular: S1 S2 Regular Rate and Rhythm No Murmurs Respiratory: Bilateral Scattered Rhonchi Gastrointestinal: Soft Benign Normal Bowel Sounds Ext: Edema Labs: CBC, BMP 10/02/17 06:00 BMP pending from this AM Assessment/Plan ASSESSMENT: 1. Paroxysmal atrial fibrillation [id number] score of 2, currently in sinus rhythm off of Eliquis therapy as outlined above, off of IV Amiodarone 2. Acute hypoxic respiratory failure, post re-intubation, pulmonary infiltrates/ pulmonary edema 3. Cavitating pneumonia, MSSA bacteremia, post septic shock no evidence of endocarditis by ALISA criteria 4. Diastolic LV dysfunction with class I-II NYHA congestive heart failure, volume overload 5. Osteomyelitis T9-T10 discitis 6. Loculated effusion post chest tube insertion, remains in situ 7. History of alcohol dependence 8. Acute renal insufficiency 9. Hypernatremia 10. Anemia PLAN: 1. 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 Continue Lopressor via NGT, hemodynamics permitting 3. Resume Amiodarone via NGT 4. Consider transfusion to maintain Hg equal or > 8.0 5. May require prn Lasix, pending AM blood test 6. Follow BMP from this AM 7. Ventilator and chest tube management as per the ICU team Overall poor prognosis Chang Blackwell M.D.
[2017-10-02 07:00] LABS: ALBUMIN 2.1 g/dl (3.4-5.0); ANION GAP 13 (8-16); CALCIUM 7.8 mg/dL (8.5-10.1); CO2 19 mmol/L (21-32); CREATININE 5.2 mg/dL (0.7-1.3); GLUCOSE,RANDOM 126 mg/dL (74-106); SGOT/AST 30 U/L (15-37); SGPT/ALT 7 U/L (12-78)
[2017-10-02 07:03] LABS: ALK PHOS 127 U/L (45-117); TOT PROT 7.2 g/dl (6.4-8.2)
[2017-10-02] MEDS: SEVELAMER CARBONATE 800 MG TAB (FP) PO SCH (08:00)
[2017-10-02] MEDS ORDERED: METOPROLOL TARTRATE 5 MG/5 ML VIAL IVPUSH PRN (08:26)
[2017-10-02] MEDS: FAMOTIDINE 20 MG/50 ML IVPB 20 MG/50 ML MG IVPB SCH ×2 (09:21→21:19)
[2017-10-02] MEDS: FERROUS SO4 325 MG TABLET (FP) PO SCH (09:23)
[2017-10-02] MEDS: AMIODARONE HCL 200 MG TABLET (FP) NGT SCH ×2 (09:23→10:00)
[2017-10-02] MEDS: FOLIC ACID 1 MG TABLET (FP) PO SCH (09:23)
[2017-10-02] MEDS: MULTIVITAMINS THER W-MINERALS COMBO TABLET (FP) PO SCH (09:23)
[2017-10-02] MEDS: THIAMINE HCL 100 MG TABLET (FP) PO SCH (09:23)
[2017-10-02] MEDS: METOPROLOL TARTRATE 25 MG TABLET (FP) NGT SCH ×3 (09:23→21:20)
[2017-10-02] MEDS: CHLORHEXIDINE GLUCONATE 0.12% 15ML CUP MM SCH ×2 (09:24→21:20)
[2017-10-02] MEDS: MUPIROCIN CA 2% TOPICAL CREAM 15 GM TUBE TP SCH ×2 (09:25→21:21)
--- NOTE | 2017-10-02 09:56 | PN ---
Progress Note, Physician History of Present Illness: Reintubated. Awake. OG tube in place PEG consent, by his daughter, is in chart. - Current Medication List Current Medications: Active Medications Acetaminophen (Tylenol -) 650 mg NR Q6H PRN PRN Reason: FEVER OR PAIN Last Admin: 09/16/17 18:27 Dose: 650 mg Amiodarone HCl (Cordarone -) 200 mg NGT DAILY [facility] Last Admin: 10/02/17 09:23 Dose: 200 mg Chlorhexidine Gluconate (Peridex -) 15 ml MM BID [facility] Last Admin: 10/02/17 09:24 Dose: 15 ml Ferrous Sulfate (Feosol -) 325 mg PO DAILY [facility] Last Admin: 10/02/17 09:23 Dose: 325 mg Folic Acid (Folic Acid -) 1 mg PO DAILY [facility] Last Admin: 10/02/17 09:23 Dose: 1 mg Famotidine/Sodium Chloride (Pepcid 20 Mg Premixed Ivpb -) 20 mg in 50 mls @ 100 mls/hr IVPB BID [facility] Last Admin: 10/02/17 09:21 Dose: 100 mls/hr Dextrose/Sodium Chloride (D5-1/2ns -) 1,000 mls @ 42 mls/hr IV ASDIR [facility] Last Admin: 10/01/17 20:08 Dose: 42 mls/hr Propofol (Diprivan -) 1,000,000 mcg in 100 mls @ 2.493 mls/hr IVPB TITR [facility]; 5 MCG/KG/MIN PRN Reason: Protocol Last Admin: 10/02/17 05:44 Dose: 35 mcg/kg/min, 17.451 mls/hr Metoprolol Tartrate (Lopressor -) 25 mg NGT BID [facility] Last Admin: 10/02/17 09:23 Dose: 25 mg Metoprolol Tartrate (Lopressor Injection -) 5 mg IVPUSH Q6H PRN Multivitamins/Minerals (Theragran-M) 1 each PO DAILY [facility] Last Admin: 10/02/17 09:23 Dose: 1 each Mupirocin (Bactroban 2% Cream -) 1 applic TP BID [facility] Last Admin: 10/02/17 09:25 Dose: 1 applic Sevelamer Carbonate (Renvela -) 800 mg PO TIDCM [facility] Last Admin: 10/01/17 17:26 Dose: Not Given Thiamine HCl (Vitamin B1 -) 100 mg PO DAILY [facility] Last Admin: 10/02/17 09:23 Dose: 100 mg - Objective Vital Signs: Vital Signs Temperature 98.9 F 10/02/17 05:43 Pulse Rate 88 10/02/17 05:43 Respiratory Rate 27 H 10/02/17 06:25 Blood Pressure 147/97 10/02/17 05:44 O2 Sat by Pulse Oximetry (%) 100 10/01/17 20:49 Labs: CBC, BMP 10/02/17 06:00 10/02/17 06:00 INR, PTT INR 1.77 (0.82-1.09) H D 10/01/17 18:35 Problem List - Problems (1) Failure to thrive in adult Code(s): R62.7 - ADULT FAILURE TO THRIVE (2) Respiratory failure with hypoxia Code(s): J96.91 - RESPIRATORY FAILURE, UNSPECIFIED WITH HYPOXIA Qualifiers: Chronicity: acute Qualified Code(s): J96.01 - Acute respiratory failure with hypoxia (3) Staphylococcus aureus bacteremia Code(s): R78.81 - BACTEREMIA (4) History of alcohol abuse Code(s): Z87.898 - PERSONAL HISTORY OF OTHER SPECIFIED CONDITIONS (5) Gastric ulcer Code(s): K25.9 - GASTRIC ULCER, UNSP ACUTE OR CHRONIC, W/O HEMOR OR PERF (6) Rectal bleeding Code(s): K62.5 - HEMORRHAGE OF ANUS AND RECTUM Assessment/Plan Plan for PEG tomorrow. D/c with ICU team
[2017-10-02] MEDS ORDERED: SEVELAMER CARBONATE 800 MG TAB (FP) PO SCH (11:07)
[2017-10-02] MEDS ORDERED: SEVELAMER CARBONATE 0.8 GM POWDER PACKET PO SCH (11:15)
--- NOTE | 2017-10-02 11:42 | PN ---
Teaching Attending Note Name of Resident: Anton Zamora ATTENDING PHYSICIAN STATEMENT I saw and evaluated the patient. I reviewed the resident's note and discussed the case with the resident. I agree with the resident's findings and plan as documented. SUBJECTIVE: Pt seen and examined in the ICU. Remains intubated, sedated. Vented on volume assist control with 40% FiO2. Bleeding appears to have stopped. OBJECTIVE: Last Vital Signs Temp Pulse Resp BP Pulse Ox 98.6 F 82 22 152/93 100 10/02/17 10:00 10/02/17 10:00 10/02/17 10:00 10/02/17 10:00 10/02/17 10:00 Intake & Output 09/29/17 09/30/17 10/01/17 10/02/17 23:59 23:59 23:59 23:59 Intake Total 1150 2000 2430 841 Output Total 2050 2120 1600 1000 Balance -900 -120 830 -159 Weight 181 lb 8 oz 185 lb 9 oz 183 lb 3.266 oz 185 lb 3.013 oz Gen: intubated, sedated Heart: RRR Lung: scattered rhonchi Abd: soft, nontender Ext: + edema CBC, BMP 10/02/17 06:00 10/02/17 06:00 Active Medications Acetaminophen (Tylenol -) 650 mg NR Q6H PRN PRN Reason: FEVER OR PAIN Last Admin: 09/16/17 18:27 Dose: 650 mg Amiodarone HCl (Cordarone -) 200 mg NGT DAILY [facility] Last Admin: 10/02/17 10:00 Dose: Not Given Chlorhexidine Gluconate (Peridex -) 15 ml MM BID [facility] Last Admin: 10/02/17 09:24 Dose: 15 ml Ferrous Sulfate (Feosol -) 325 mg PO DAILY [facility] Last Admin: 10/02/17 09:23 Dose: 325 mg Folic Acid (Folic Acid -) 1 mg PO DAILY [facility] Last Admin: 10/02/17 09:23 Dose: 1 mg Famotidine/Sodium Chloride (Pepcid 20 Mg Premixed Ivpb -) 20 mg in 50 mls @ 100 mls/hr IVPB BID [facility] Last Admin: 10/02/17 09:21 Dose: 100 mls/hr Dextrose/Sodium Chloride (D5-1/2ns -) 1,000 mls @ 42 mls/hr IV ASDIR [facility] Last Admin: 10/01/17 20:08 Dose: 42 mls/hr Propofol (Diprivan -) 1,000,000 mcg in 100 mls @ 2.493 mls/hr IVPB TITR [facility]; 5 MCG/KG/MIN PRN Reason: Protocol Last Admin: 10/02/17 11:32 Dose: 35 mcg/kg/min, 17.451 mls/hr Metoprolol Tartrate (Lopressor -) 25 mg NGT BID [facility] Last Admin: 10/02/17 10:00 Dose: Not Given Metoprolol Tartrate (Lopressor Injection -) 5 mg IVPUSH Q6H PRN Multivitamins/Minerals (Theragran-M) 1 each PO DAILY [facility] Last Admin: 10/02/17 09:23 Dose: 1 each Mupirocin (Bactroban 2% Cream -) 1 applic TP BID [facility] Last Admin: 10/02/17 09:25 Dose: 1 applic Sevelamer Carbonate (Renvela Powder Packet -) 0.8 gm NGT TIDCM [facility] Thiamine HCl (Vitamin B1 -) 100 mg PO DAILY [facility] Last Admin: 10/02/17 09:23 Dose: 100 mg ASSESSMENT AND PLAN: Acute Hypoxic Respiratory Failure Pneumonia MSSA Bacteremia Loculated Pleural Effusions LV Diastolic Dysfunction Paroxysmal Atrial Fibrillation Acute Kidney Injury GI Bleed likely from rectal tube/ulcer Acute Blood Loss Anemia - monitor H/H, coags - monitor urine output, creatinine - continue antibiotics - holding heparin gtt - protonix - DNase not formulary, likely would not benefit from intrapleural tPA alone - will d/c pigtail catherer - O2 to keep SpO2 >90% - will likely need tracheostomy as this is his 3rd intubation this admission likely from aspiration - for PEG tomorrow - DVT prophylaxis - continue ICU monitoring critical care time spent in reviewing chart, evaluating patient and formulating plan 35 min
[2017-10-02] MEDS: SEVELAMER CARBONATE 0.8 GM POWDER PACKET NGT SCH ×3 (12:00→18:13)
[2017-10-02] MEDS ORDERED: VANCOMYCIN 500 MG in DEXTROSE 5%-WATER - 100 ML IVPB ONE (12:32)
--- NOTE | 2017-10-02 12:35 | PN ---
Progress Note, Physician History of Present Illness: Intubated Sedated on ventilator WBC remains elevated 9% eos - Current Medication List Current Medications: Active Medications Acetaminophen (Tylenol -) 650 mg NR Q6H PRN PRN Reason: FEVER OR PAIN Last Admin: 09/16/17 18:27 Dose: 650 mg Amiodarone HCl (Cordarone -) 200 mg NGT DAILY [facility] Last Admin: 10/02/17 10:00 Dose: Not Given Chlorhexidine Gluconate (Peridex -) 15 ml MM BID [facility] Last Admin: 10/02/17 09:24 Dose: 15 ml Ferrous Sulfate (Feosol -) 325 mg PO DAILY [facility] Last Admin: 10/02/17 09:23 Dose: 325 mg Folic Acid (Folic Acid -) 1 mg PO DAILY [facility] Last Admin: 10/02/17 09:23 Dose: 1 mg Famotidine/Sodium Chloride (Pepcid 20 Mg Premixed Ivpb -) 20 mg in 50 mls @ 100 mls/hr IVPB BID [facility] Last Admin: 10/02/17 09:21 Dose: 100 mls/hr Dextrose/Sodium Chloride (D5-1/2ns -) 1,000 mls @ 42 mls/hr IV ASDIR [facility] Last Admin: 10/01/17 20:08 Dose: 42 mls/hr Propofol (Diprivan -) 1,000,000 mcg in 100 mls @ 2.493 mls/hr IVPB TITR [facility]; 5 MCG/KG/MIN PRN Reason: Protocol Last Admin: 10/02/17 11:32 Dose: 35 mcg/kg/min, 17.451 mls/hr Vancomycin HCl 500 mg/ (Dextrose) 250 mls @ 200 mls/hr IVPB ONCE ONE Stop: 10/02/17 13:46 Metoprolol Tartrate (Lopressor -) 25 mg NGT BID [facility] Last Admin: 10/02/17 10:00 Dose: Not Given Metoprolol Tartrate (Lopressor Injection -) 5 mg IVPUSH Q6H PRN Multivitamins/Minerals (Theragran-M) 1 each PO DAILY [facility] Last Admin: 10/02/17 09:23 Dose: 1 each Mupirocin (Bactroban 2% Cream -) 1 applic TP BID [facility] Last Admin: 10/02/17 09:25 Dose: 1 applic Sevelamer Carbonate (Renvela Powder Packet -) 0.8 gm NGT TIDCM [facility] Thiamine HCl (Vitamin B1 -) 100 mg PO DAILY [facility] Last Admin: 10/02/17 09:23 Dose: 100 mg - Objective Vital Signs: Vital Signs Temperature 98.6 F 10/02/17 10:00 Pulse Rate 81 10/02/17 10:25 Respiratory Rate 25 H 10/02/17 10:25 Blood Pressure 152/93 10/02/17 10:00 O2 Sat by Pulse Oximetry (%) 100 10/02/17 10:25 Constitutional: Yes: No Distress Eyes: Yes: Conjunctiva Clear Cardiovascular: Yes: Regular Rate and Rhythm, S1, S2 Respiratory: Yes: Mechanically Ventilated Gastrointestinal: Yes: Normal Bowel Sounds, Soft. No: Tenderness Edema: Yes Integumentary: Yes: Other (fine exanthem noted in groin areas, upper thighs) Labs: CBC, BMP 10/02/17 06:00 10/02/17 06:00 INR, PTT INR 1.77 (0.82-1.09) H D 10/01/17 18:35 Assessment/Plan MSSA bacteremia, likely skin source Vertebral osteo T9T10 Resp failure Possible aspiration pneumonia Hx ETOH abuse Azotemia ? AIN Work up for AIN in progress (? secondary to B-lactam) Continue vancomycin for now, adjusted for renal failure Will give 500mg today; repeat vanco trough am Will need long term care administrator (6-8w) anti- staph treatment
--- NOTE | 2017-10-02 12:36 | PN ---
Progress Note, Physician History of Present Illness: Pt seen and examined at bedside. He remains intubated. He was starting on tube feeds and is tolerating so far. - Current Medication List Current Medications: Active Medications Acetaminophen (Tylenol -) 650 mg NR Q6H PRN PRN Reason: FEVER OR PAIN Last Admin: 09/16/17 18:27 Dose: 650 mg Amiodarone HCl (Cordarone -) 200 mg NGT DAILY [facility] Last Admin: 10/02/17 10:00 Dose: Not Given Chlorhexidine Gluconate (Peridex -) 15 ml MM BID [facility] Last Admin: 10/02/17 09:24 Dose: 15 ml Ferrous Sulfate (Feosol -) 325 mg PO DAILY [facility] Last Admin: 10/02/17 09:23 Dose: 325 mg Folic Acid (Folic Acid -) 1 mg PO DAILY [facility] Last Admin: 10/02/17 09:23 Dose: 1 mg Famotidine/Sodium Chloride (Pepcid 20 Mg Premixed Ivpb -) 20 mg in 50 mls @ 100 mls/hr IVPB BID [facility] Last Admin: 10/02/17 09:21 Dose: 100 mls/hr Dextrose/Sodium Chloride (D5-1/2ns -) 1,000 mls @ 42 mls/hr IV ASDIR [facility] Last Admin: 10/01/17 20:08 Dose: 42 mls/hr Propofol (Diprivan -) 1,000,000 mcg in 100 mls @ 2.493 mls/hr IVPB TITR [facility]; 5 MCG/KG/MIN PRN Reason: Protocol Last Admin: 10/02/17 11:32 Dose: 35 mcg/kg/min, 17.451 mls/hr Metoprolol Tartrate (Lopressor -) 25 mg NGT BID [facility] Last Admin: 10/02/17 10:00 Dose: Not Given Metoprolol Tartrate (Lopressor Injection -) 5 mg IVPUSH Q6H PRN Multivitamins/Minerals (Theragran-M) 1 each PO DAILY [facility] Last Admin: 10/02/17 09:23 Dose: 1 each Mupirocin (Bactroban 2% Cream -) 1 applic TP BID [facility] Last Admin: 10/02/17 09:25 Dose: 1 applic Sevelamer Carbonate (Renvela Powder Packet -) 0.8 gm NGT TIDCM [facility] Thiamine HCl (Vitamin B1 -) 100 mg PO DAILY [facility] Last Admin: 10/02/17 09:23 Dose: 100 mg - Objective Vital Signs: Vital Signs Temperature 98.6 F 10/02/17 10:00 Pulse Rate 81 10/02/17 10:25 Respiratory Rate 25 H 10/02/17 10:25 Blood Pressure 152/93 10/02/17 10:00 O2 Sat by Pulse Oximetry (%) 100 10/02/17 10:25 Constitutional: Yes: Calm Eyes: Yes: Conjunctiva Clear Cardiovascular: Yes: S1, S2 Respiratory: Yes: Mechanically Ventilated, Other (chest tube) Gastrointestinal: Yes: Soft Genitourinary: Yes: Freeman Present Musculoskeletal: Yes: Muscle Weakness Edema: Yes Edema: LLE: Trace, RLE: Trace Wound/Incision: Yes: Dressing Dry and Intact Neurological: Yes: Lethargy Labs: CBC, BMP 10/02/17 06:00 10/02/17 06:00 INR, PTT INR 1.77 (0.82-1.09) H D 10/01/17 18:35 - ....Imaging Chest X-ray: Report Reviewed Problem List - Problems (1) Abuse, drug or alcohol Code(s): F19.10 - OTHER PSYCHOACTIVE SUBSTANCE ABUSE, UNCOMPLICATED (2) Withdrawal symptoms, alcohol Code(s): F10.239 - ALCOHOL DEPENDENCE WITH WITHDRAWAL, UNSPECIFIED Qualifiers: Complication of substance-induced condition: uncomplicated Qualified Code(s ): F10.230 - Alcohol dependence with withdrawal, uncomplicated (3) Hyponatremia Code(s): E87.1 - HYPO-OSMOLALITY AND HYPONATREMIA (4) Respiratory failure with hypoxia Code(s): J96.91 - RESPIRATORY FAILURE, UNSPECIFIED WITH HYPOXIA Qualifiers: Chronicity: acute Qualified Code(s): J96.01 - Acute respiratory failure with hypoxia (5) Staphylococcus aureus bacteremia Code(s): R78.81 - BACTEREMIA (6) Acute kidney injury Code(s): N17.9 - ACUTE KIDNEY FAILURE, UNSPECIFIED (7) Anemia Code(s): D64.9 - ANEMIA, UNSPECIFIED Qualifiers: Anemia type: unspecified type Qualified Code(s): D64.9 - Anemia, unspecified Assessment/Plan Current Medications Generic Name Dose Route Start Last Admin Trade Name Freq PRN Reason Stop Dose Admin Acetaminophen 650 mg 09/07/17 05:53 10/30/17 18:27 Tylenol - NR 650 mg Q6H PRN Administration FEVER OR PAIN Amiodarone HCl 200 mg 10/02/17 08:00 10/02/17 10:00 Cordarone - NGT Not Given DAILY [facility] Chlorhexidine Gluconate 15 ml 09/08/17 12:30 10/02/17 09:24 Peridex - MM 15 ml BID [facility] Administration Ferrous Sulfate 325 mg 09/05/17 12:00 10/02/17 09:23 Feosol - PO 325 mg DAILY [facility] Administration Folic Acid 1 mg 09/02/17 10:00 10/02/17 09:23 Folic Acid - PO 1 mg DAILY [facility] Administration Famotidine/Sodium Chloride 20 mg in 50 mls @ 100 mls/hr 09/28/17 10:00 09:21 Pepcid 20 Mg Premixed Ivpb - IVPB 100 mls/hr BID [facility] Administration Dextrose/Sodium Chloride 1,000 mls @ 42 mls/hr 09/30/17 13:30 10/01/17 20:08 D5-1/2ns - IV 42 mls/hr ASDIR [facility] Administration Propofol 1,000,000 mcg in 100 mls @ 2.493 mls/hr 10/01/17 12:30 10/02/17 11: 32 Diprivan - IVPB 35 mcg/kg/min TITR [facility] 17.451 mls/hr Protocol Administration 5 MCG/KG/MIN Vancomycin HCl 500 mg/ 250 mls @ 200 mls/hr 10/02/17 12:32 Dextrose IVPB 10/02/17 13:46 ONCE ONE Metoprolol Tartrate 25 mg 10/02/17 07:45 10/02/17 10:00 Lopressor - NGT Not Given BID [facility] Metoprolol Tartrate 5 mg 10/02/17 08:26 Lopressor Injection - IVPUSH Q6H PRN Multivitamins/Minerals 1 each 09/02/17 10:00 10/02/17 09:23 Theragran-M PO 1 each DAILY [facility] Administration Mupirocin 1 applic 09/23/17 10:00 10/02/17 09:25 Bactroban 2% Cream - TP 1 applic BID [facility] Administration Sevelamer Carbonate 0.8 gm 10/02/17 12:00 Renvela Powder Packet - NGT TIDCM [facility] Thiamine HCl 100 mg 09/02/17 10:00 10/02/17 09:23 Vitamin B1 - PO 100 mg DAILY [facility] Administration Impression 1. ALEXANDRA 2. fluid overload 3. hypoalbuminemia 4. respiratory failure requiring intubation 5. anemia 6. etoh abuse 7. fevers 8. hypokalemia 9. pleural effusion 10. hypernatremia 11. GI bleed Plan - cont with tube feeds - cont with free water with feeds - titrate down fluids - vent support - renal function starting to improve - pt for trache - repeat labs in am - he is making urine - awaiting renal recovery - will still consider HD therapy if he worsens - daughter's number: Emelina [phone]. - monitor urine ouput - ALEXANDRA is multifactorial - monitor hg - cont chest tube care - monitor pulse ox - repeat cxr in am - keep pt in ICU - will follow Dr Peres
[2017-10-02 13:30] LABS: MAGNESIUM 2.1 mg/dL (1.8-2.4); PHOSPHOROUS 5.1 mg/dL (2.5-4.9)
--- NOTE | 2017-10-02 13:41 | PN ---
Teaching Attending Note Name of Resident: Lydia Salter ATTENDING PHYSICIAN STATEMENT I saw and evaluated the patient. I reviewed the resident's note and discussed the case with the resident. I agree with the resident's findings and plan as documented. SUBJECTIVE:intubated/sedated OBJECTIVE: Last Vital Signs Temp Pulse Resp BP Pulse Ox 98.6 F 81 25 H 152/93 100 10/02/17 10:00 10/02/17 10:25 10/02/17 10:25 10/02/17 10:00 10/02/17 10:25 Intake & Output 09/29/17 09/30/17 10/01/17 10/02/17 23:59 23:59 23:59 23:59 Intake Total 1150 1999 2430 841 Output Total 20490 1600 1000 Balance -900 -120 830 -159 Weight 181 lb 8 oz 185 lb 9 oz 183 lb 3.266 oz 185 lb 3.013 oz General sedated CV S1 S2 RRR no murmur/rub/gallop Lungs course breath sounds diffusely decreased breath sounds at bases abdomen soft NT/ND Extremities trace pitting edema all 4 extremities ASSESSMENT AND PLAN: 66 yo M with PMH alcohol abuse, HTN who presented to the ER after being found on the floor. 1. Acute hypoxic respiratory failure- likely due to cavitary PNA. s/p extubated 09/19 and reintubated and extubated 09/27. re-intubated yesterday due to tacypnea and hypoxia. full vent support. will likley require trach at this time. crit care on board. 2. Sepsis secondary to cavitary healthcare-associated pneumonia, MSSA bacteremia and vertebral OM- with complicated loculated effusion. minimal output from chest tube. s/p TPA placed through tube with no improvement. tube to be removed today by ICU team. on vanco by level. CT surgery and ID on board 3. New onset afib-burst of RVR last night. now on amio ggt. anticoagulation on hold due to medical problems. should ideally be on coumadin once improved. 4. Acute kidney injury with hyperphosphatemia-progressively worsening uremia with some uremic encephalopathy. pt agreed to HD however now confused. multiple attempts to reach daughter for consent. will attempt again. if not may need to emergently dialyize if continues to worsen.Nephrology on board. 5. Anemia- s/p 2 units PRBC this admission. acute drop possible due to trauma of NGT placement. will txn 1 unit. check post cbc. on iron supplementations. 6. Hepatic transaminitis- stable. US shows hepatosplenomegaly and fatty infiltration of liver 7. Thrombocytopenia- Secondary to alcohol, splenomegaly. now stable 8. HTN- initially hypotensive. now off pressors. cont medications 9. 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 DVT prophylaxis- heparin ggt 12. Dysphagia-likely due to weakness. NPO. plan for PEG in the AM. GI on board 13. MICU monitoring The care of this patient involved high complexity decision making to prevent further life threatening deterioration of the patient's condition and/or to evaluate & treat vital organ system(s) failure or risk of failure. 48 mins ASSESSMENT AND PLAN:
--- NOTE | 2017-10-02 13:54 | PN ---
Physical Exam: SUBJECTIVE: Patient seen and examined. intubated sedated on ventilator support. no active bleed seen. OBJECTIVE: Vital Signs Period Temp Pulse Resp BP Sys/Jeff Pulse Ox Last 24 Hr 98.0 F-98.9 F 79-98 22-28 138-163/80-103 100-100 GENERAL: sedated intubated. HEAD: Normal with no signs of trauma. EYES: PERRL, No ptosis. ENT: Ears normal, nares patent, moist mucous membranes. NECK: Trachea midline, LUNGS: decrease breath sound b/l crackels at base, chest tube in situ on right side. HEART: s1s2 chris.. ABDOMEN: Soft, nontender, nondistended, normoactive bowel sounds, no guarding, no rebound, EXTREMITIES: edema++ SKIN: Warm, dry, Laboratory Results - last 24 hr 10/01/17 10/01/17 10/01/17 01:15 06:59 16:34 WBC RBC Hgb Hct MCV MCH MCHC RDW Plt Count MPV Neutrophils % Lymphocytes % Monocytes % Eosinophils % Basophils % PT with INR INR PTT (Actin FS) Sodium Potassium Chloride Carbon Dioxide Anion Gap BUN Creatinine Creat Clearance w eGFR POC Glucometer [id number] 157.73253 153.90008 Random Glucose Calcium Phosphorus Magnesium Total Bilirubin AST ALT Alkaline Phosphatase Total Protein Albumin Random Vancomycin 10/01/17 10/01/17 10/01/17 18:35 18:35 21:30 WBC 16.2 H 14.4 H RBC 2.60 L 2.63 L Hgb 7.6 L D 7.5 L Hct 22.5 L 22.7 L MCV 86.3 86.6 MCH 29.0 28.5 MCHC 33.6 32.9 RDW 16.9 H 16.8 H Plt Count 141 143 MPV 7.1 L 7.3 L Neutrophils % 77.2 Lymphocytes % 7.2 L Monocytes % 10.2 Eosinophils % 4.9 H Basophils % 0.5 PT with INR 20.00 H INR 1.77 H D PTT (Actin FS) 32.5 Sodium Potassium Chloride Carbon Dioxide Anion Gap BUN Creatinine Creat Clearance w eGFR POC Glucometer Random Glucose Calcium Phosphorus Magnesium Total Bilirubin AST ALT Alkaline Phosphatase Total Protein Albumin Random Vancomycin 10/01/17 10/02/17 10/02/17 23:50 06:00 06:00 WBC 11.9 H RBC 2.54 L Hgb 7.4 L Hct 22.0 L MCV 86.5 MCH 29.2 MCHC 33.8 RDW 17.1 H Plt Count 149 MPV 7.4 L Neutrophils % 70.0 Lymphocytes % 8.9 D Monocytes % 10.8 H Eosinophils % 9.4 H D Basophils % 0.9 PT with INR INR PTT (Actin FS) Sodium Potassium Chloride Carbon Dioxide Anion Gap BUN Creatinine Creat Clearance w eGFR POC Glucometer [phone] Random Glucose Calcium Phosphorus Magnesium Total Bilirubin AST ALT Alkaline Phosphatase Total Protein Albumin Random Vancomycin 18.612 10/02/17 10/02/17 10/02/17 06:00 10:55 11:27 WBC RBC Hgb Hct MCV MCH MCHC RDW Plt Count MPV Neutrophils % Lymphocytes % Monocytes % Eosinophils % Basophils % PT with INR INR PTT (Actin FS) Sodium 153 H Potassium 3.8 Chloride 121 H Carbon Dioxide 19 L D Anion Gap 13 BUN 127 H* Creatinine 5.2 H Creat Clearance w eGFR 11.09 POC Glucometer 115.34142 Random Glucose 126 H D Calcium 7.8 L Phosphorus 5.1 H Cancelled Magnesium 2.1 Cancelled Total Bilirubin 1.0 AST 30 ALT 7 L Alkaline Phosphatase 127 H Total Protein 7.2 Albumin 2.1 L Random Vancomycin Active Medications Generic Name Dose Route Start Last Admin Trade Name Freq PRN Reason Stop Dose Admin Acetaminophen 650 mg 09/07/17 05:53 09/16/17 18:27 Tylenol - NR 650 mg Q6H PRN Administration FEVER OR PAIN Amiodarone HCl 200 mg 10/02/17 08:00 10/02/17 10:00 Cordarone - NGT Not Given DAILY [facility] Chlorhexidine Gluconate 15 ml 09/08/17 12:30 10/02/17 09:24 Peridex - MM 15 ml BID [facility] Administration Ferrous Sulfate 325 mg 09/05/17 12:00 10/02/17 09:23 Feosol - PO 325 mg DAILY [facility] Administration Folic Acid 1 mg 09/02/17 10:00 10/02/17 09:23 Folic Acid - PO 1 mg DAILY [facility] Administration Famotidine/Sodium Chloride 20 mg in 50 mls @ 100 mls/hr 09/28/17 10:00 09:21 Pepcid 20 Mg Premixed Ivpb - IVPB 100 mls/hr BID [facility] Administration Dextrose/Sodium Chloride 1,000 mls @ 42 mls/hr 09/30/17 13:30 10/01/17 20:08 D5-1/2ns - IV 42 mls/hr ASDIR [facility] Administration Propofol 1,000,000 mcg in 100 mls @ 2.493 mls/hr 10/01/17 12:30 10/02/17 11: 32 Diprivan - IVPB 35 mcg/kg/min TITR [facility] 17.451 mls/hr Protocol Administration 5 MCG/KG/MIN Metoprolol Tartrate 25 mg 10/02/17 07:45 10/02/17 10:00 Lopressor - NGT Not Given BID [facility] Metoprolol Tartrate 5 mg 10/02/17 08:26 Lopressor Injection - IVPUSH Q6H PRN Multivitamins/Minerals 1 each 09/02/17 10:00 10/02/17 09:23 Theragran-M PO 1 each DAILY [facility] Administration Mupirocin 1 applic 09/23/17 10:00 10/02/17 09:25 Bactroban 2% Cream - TP 1 applic BID [facility] Administration Sevelamer Carbonate 0.8 gm 10/02/17 12:00 Renvela Powder Packet - NGT TIDCM [facility] Thiamine HCl 100 mg 09/02/17 10:00 10/02/17 09:23 Vitamin B1 - PO 100 mg DAILY [facility] Administration ASSESSMENT/PLAN: Acute Hypoxic Respiratory Failure Pneumonia MSSA Bacteremia Loculated Pleural Effusions LV Diastolic Dysfunction Paroxysmal Atrial Fibrillation Acute Kidney Injury GI Bleed likely from rectal tube/ulcer Acute Blood Loss Anemia afib - Plan -intubated sedated, will plan tracheostomy, unable to maintain airway - On d51/2 ns for hypernatremia., stated in og feed with free water through og tube - monitor elctrolyte, i/o , vitals. - chest physical therapy. - antibiotics as per ID, need senior living antibiotics for osteo - Nephro on case, may need HD - continue with protonix - monitor H/H, coags - thoracic surgery f/u - O2 to keep SpO2 >90% - rate control with metoprolol - DVT prophylaxis scd, hold heparin due to bleed. - started on lopressor and amiodarone through og tube for afib - PEG for tomorrow. - continue ICU monitoring Visit type - Emergency Visit Emergency Visit: Yes ED Registration Date: 08/31/17 Care time: The patient presented to the Emergency Department on the above date and was hospitalized for further evaluation of their emergent condition. - New Patient This patient is new to me today: No - Critical Care Critical Care patient: Yes Total Critical Care Time (in minutes): 45 Critical Care Statement: The care of this patient involved high complexity decision making to prevent further life threatening deterioration of the patient 's condition and/or to evaluate & treat vital organ system(s) failure or risk of failure.
[2017-10-02] MEDS: DEXTROSE 5%-0.45% SALINE 1,000 ML IV SCH (14:16)
--- NOTE | 2017-10-02 14:18 | PN ---
Physical Exam: 24H Events: yesterday -s/p 1U PRBCs, H&H stable Reintubated, +OGT AM - planning for PEG and trach tomorrow SUBJECTIVE: Patient seen and examined in ICU. Ventilated AC mode FiO2 40% OBJECTIVE: Vital Signs Period Temp Pulse Resp BP Sys/Jeff Pulse Ox Last 24 Hr 98.0 F-98.9 F 79-98 22-28 138-163/80-103 100-100 Intake & Output 09/29/17 09/30/17 10/01/17 10/02/17 23:59 23:59 23:59 23:59 Intake Total 1150 1999 2430 841 Output Total 20490 1600 1000 Balance -900 -120 830 -159 Weight 82.327 kg 84.17 kg 83.1 kg 84 kg GENERAL: Intubated, awake, following verbal commands EYES: PERRL, extraocular movements intact, sclera anicteric, conjunctiva clear. No ptosis. ENT: crusted/clotted blood in oropharynx LUNGS: mechanical breath sounds, b/l rhonchi HEART: rrr, normal s1/s2 ABDOMEN: Soft, ntnd EXTREMITIES: 2+ pulses, wwp, 1+ pitting edema bilaterally SKIN: confluent hive-like rash noted on LUE, R anterior norris lesions improving CBC, BMP 10/02/17 06:00 10/02/17 06:00 Hepatic Panel Direct Bilirubin 1.8 mg/dL (0.0-0.2) H D 09/09/17 05:00 Total Bilirubin 1.0 mg/dL (0.2-1.0) 10/02/17 06:00 AST 30 U/L (15-37) 10/02/17 06:00 ALT 7 U/L (12-78) L 10/02/17 06:00 Alkaline Phosphatase 127 U/L (45-117) H 10/02/17 06:00 Albumin 2.1 g/dl (3.4-5.0) L 10/02/17 06:00 Active Medications Acetaminophen (Tylenol -) 650 mg NR Q6H PRN PRN Reason: FEVER OR PAIN Last Admin: 09/16/17 18:27 Dose: 650 mg Amiodarone HCl (Cordarone -) 200 mg NGT DAILY [facility] Last Admin: 10/02/17 10:00 Dose: Not Given Chlorhexidine Gluconate (Peridex -) 15 ml MM BID [facility] Last Admin: 10/02/17 09:24 Dose: 15 ml Ferrous Sulfate (Feosol -) 325 mg PO DAILY [facility] Last Admin: 10/02/17 09:23 Dose: 325 mg Folic Acid (Folic Acid -) 1 mg PO DAILY [facility] Last Admin: 10/02/17 09:23 Dose: 1 mg Famotidine/Sodium Chloride (Pepcid 20 Mg Premixed Ivpb -) 20 mg in 50 mls @ 100 mls/hr IVPB BID [facility] Last Admin: 10/02/17 09:21 Dose: 100 mls/hr Dextrose/Sodium Chloride (D5-1/2ns -) 1,000 mls @ 42 mls/hr IV ASDIR [facility] Last Admin: 10/01/17 20:08 Dose: 42 mls/hr Propofol (Diprivan -) 1,000,000 mcg in 100 mls @ 2.493 mls/hr IVPB TITR [facility]; 5 MCG/KG/MIN PRN Reason: Protocol Last Admin: 10/02/17 11:32 Dose: 35 mcg/kg/min, 17.451 mls/hr Metoprolol Tartrate (Lopressor -) 25 mg NGT BID [facility] Last Admin: 10/02/17 10:00 Dose: Not Given Metoprolol Tartrate (Lopressor Injection -) 5 mg IVPUSH Q6H PRN Multivitamins/Minerals (Theragran-M) 1 each PO DAILY [facility] Last Admin: 10/02/17 09:23 Dose: 1 each Mupirocin (Bactroban 2% Cream -) 1 applic TP BID [facility] Last Admin: 10/02/17 09:25 Dose: 1 applic Sevelamer Carbonate (Renvela Powder Packet -) 0.8 gm NGT TIDCM [facility] Thiamine HCl (Vitamin B1 -) 100 mg PO DAILY [facility] Last Admin: 10/02/17 09:23 Dose: 100 mg ASSESSMENT/PLAN: 66yo man with PMH of EtOH abuse and HTN who is admitted (08/31) for acute hypoxic respiratory failure requiring mechanical ventilation (09/02-09/19, 09/24- ). Reintubated today. Continues to have cavitary PNA with loculated effusions bilaterally, R pigtail CT with minimal drainage, and acute thoracic osteomyletitis (T9-T10). Antibiotic changed from Cefazolin (09/16-09/28) to Vancomycin on 09/29 (renally dosed) given possible allergic reaction (bilateral flank rash now resolving). Renal function slight improvement today (127/5.2), and he is maintaining UOP. Planning for PEG and tracheostomy placement tomorrow. #acute hypoxic respiratory failure -Vent mgmt per ICU team, planning for tracheostomy -d/c R chest tube today #ARF, Renal following, still considering HD, renal function slight improvement today -Ferrous Sulfate 325 mg PO DAILY and Sevelamer Carbonate (Renvela) 800 mg PO TID -Strict I&Os, hines, Renal dose for meds #Acute blood loss anemia, possible from NGT, no further signs of bleeding -ENT consulted, packing oropharynx -transfuse 1U PRBCs #sepsis 2/2 cavitary PNA, acute osteomyelitis -ID following, long-term abx needed for acute osteomyelitis (6-8 wks) -Vancomycin IV, dosed renally, check Random Vanc level daily -Vanc level today 23.5; 500mg today; repeat vanco trough am #GI bleed, likely 2/2 trauma from rectal tube, s/p 3Ux PRBCs, Hgb stable, no further bleeds -Trend H&H, transfuse Hgb<7 #Afib - recurrent episode last night, started on amio gtt -Cardiology following -Amiodarone 200mg OGT qd for rate control -hold AC now given co-morbidities (CHADVASC 2) #suspected chronic diastolic heart failure - ECHO 09/02/2017 probable preserved LV function, but can't R/O regional wall motion abnormality -Metoprolol 25mg BID and 5mg IV Q6H PRN -consider hydralazine prn #EtOH abuse -Monitor for signs of EtOH withdrawal -MVI, thiamine 100mg PO qd, folic acid 1mg PO daily #FEN -D51/2NS @ 42cc/hr -lyte abnormalities noted, Renal considering HD -OGT feeds with free water flushes, NPO at midnight for PEG tomorrow #PPX -Heparin 5000U SQ TID -GI - pepcid 20mg IV BID #Dispo: continue ICU monitoring FULL code d/w Dr. Zakia Salter MD PGY-1 Visit type - Emergency Visit Emergency Visit: No - New Patient This patient is new to me today: No - Critical Care Critical Care patient: Yes Total Critical Care Time (in minutes): 40 Critical Care Statement: The care of this patient involved high complexity decision making to prevent further life threatening deterioration of the patient 's condition and/or to evaluate & treat vital organ system(s) failure or risk of failure.
[2017-10-02] MEDS: METOPROLOL TARTRATE 5 MG/5 ML VIAL IVPUSH PRN (17:30)
[2017-10-03 07:00] LABS: BASOPHIL 0.5 % (0-2.0); EOSINOPHIL 13.5 % (0-4.5); MCH 28.9 pg (25.7-33.7); MCHC 33.3 g/dl (32.0-35.9); MEAN CELL VOLUME 86.9 fl (80-96); MEAN PLT VOLUME 7.6 fl (7.5-11.1); NEUTROPHILS 67.8 % (42.8-82.8); PLATELET COUNT 163 K/MM3 (134-434); RDW 17.2 % (11.9-15.9)
[2017-10-03 07:02] LABS: INR 1.14 (0.82-1.09); PROTHROMBIN TIME (PATIENT) 12.9 SEC (9.98-11.88)
[2017-10-03 07:27] LABS: ARTERIAL BLOOD GAS BASE EXCESS -5.3 meq/l (-2-2); ARTERIAL BLOOD GAS HCO3 18.6 meq/L (22-26); ARTERIAL BLOOD GAS pH 7.38 (7.35-7.45)
[2017-10-03 07:32] LABS: ALK PHOS 143 U/L (45-117); ANION GAP 15 (8-16); BILIRUBIN,TOTAL 0.8 mg/dL (0.2-1.0); CALCIUM 7.7 mg/dL (8.5-10.1); CO2 17 mmol/L (21-32); CREATININE 5.1 mg/dL (0.7-1.3); GLUCOSE,RANDOM 91 mg/dL (74-106); PHOSPHOROUS 4.8 mg/dL (2.5-4.9); SGOT/AST 35 U/L (15-37); SGPT/ALT < 6 U/L (12-78); TOT PROT 7.2 g/dl (6.4-8.2)
[2017-10-03 07:37] LABS: ALLENS TEST POSITIVE; ART PUNCT SITE LEFT RADIAL; LPM/O2% 40; PT. ON O2? YES
[2017-10-03 07:38] LABS: MECH. VENT. YES; VENT RATE 14; VT/PRESS 450
[2017-10-03] MEDS: SEVELAMER CARBONATE 0.8 GM POWDER PACKET NGT SCH ×3 (08:00→16:52)
[2017-10-03] MEDS: PROPOFOL 1,000,000 MCG/100 ML VIAL IVPB SCH ×3 (08:39→14:11)
[2017-10-03] MEDS: METOPROLOL TARTRATE 5 MG/5 ML VIAL IVPUSH PRN ×2 (08:46→16:56)
[2017-10-03] MEDS: FERROUS SO4 325 MG TABLET (FP) PO SCH (09:07)
[2017-10-03] MEDS: AMIODARONE HCL 200 MG TABLET (FP) NGT SCH (09:07)
[2017-10-03] MEDS: FAMOTIDINE 20 MG/50 ML IVPB 20 MG/50 ML MG IVPB SCH ×2 (09:07→21:15)
[2017-10-03] MEDS: METOPROLOL TARTRATE 25 MG TABLET (FP) NGT SCH ×2 (09:07→21:15)
[2017-10-03] MEDS: FOLIC ACID 1 MG TABLET (FP) PO SCH (09:07)
[2017-10-03] MEDS: CHLORHEXIDINE GLUCONATE 0.12% 15ML CUP MM SCH ×2 (09:07→21:16)
[2017-10-03] MEDS: MULTIVITAMINS THER W-MINERALS COMBO TABLET (FP) PO SCH (09:08)
[2017-10-03] MEDS: MUPIROCIN CA 2% TOPICAL CREAM 15 GM TUBE TP SCH ×2 (09:08→21:16)
[2017-10-03] MEDS: THIAMINE HCL 100 MG TABLET (FP) PO SCH (09:08)
--- NOTE | 2017-10-03 10:53 | PN ---
Progress Note, Physician History of Present Illness: Intubated Sedated on ventilator Low grade twmp WBC remains elevated 13% eos Day # 27 anti- stapylococcal therapy ( last + BC MSSA 09/06) - Current Medication List Current Medications: Active Medications Acetaminophen (Tylenol -) 650 mg NR Q6H PRN PRN Reason: FEVER OR PAIN Last Admin: 09/16/17 18:27 Dose: 650 mg Amiodarone HCl (Cordarone -) 200 mg NGT DAILY [facility] Last Admin: 10/03/17 09:07 Dose: Not Given Chlorhexidine Gluconate (Peridex -) 15 ml MM BID [facility] Last Admin: 10/03/17 09:07 Dose: 15 ml Ferrous Sulfate (Feosol -) 325 mg PO DAILY [facility] Last Admin: 10/03/17 09:07 Dose: Not Given Folic Acid (Folic Acid -) 1 mg PO DAILY [facility] Last Admin: 10/03/17 09:07 Dose: Not Given Famotidine/Sodium Chloride (Pepcid 20 Mg Premixed Ivpb -) 20 mg in 50 mls @ 100 mls/hr IVPB BID [facility] Last Admin: 10/03/17 09:07 Dose: 100 mls/hr Propofol (Diprivan -) 1,000,000 mcg in 100 mls @ 2.493 mls/hr IVPB TITR [facility]; 5 MCG/KG/MIN PRN Reason: Protocol Last Admin: 10/03/17 08:39 Dose: 35 mcg/kg/min, 17.451 mls/hr Metoprolol Tartrate (Lopressor -) 25 mg NGT BID [facility] Last Admin: 10/03/17 09:07 Dose: Not Given Metoprolol Tartrate (Lopressor Injection -) 5 mg IVPUSH Q6H PRN PRN Reason: HYPERTENSION Last Admin: 10/03/17 08:46 Dose: 5 mg Multivitamins/Minerals (Theragran-M) 1 each PO DAILY [facility] Last Admin: 10/03/17 09:08 Dose: Not Given Mupirocin (Bactroban 2% Cream -) 1 applic TP BID [facility] Last Admin: 10/03/17 09:08 Dose: 1 applic Sevelamer Carbonate (Renvela Powder Packet -) 0.8 gm NGT TIDCM [facility] Last Admin: 10/03/17 08:00 Dose: Not Given Thiamine HCl (Vitamin B1 -) 100 mg PO DAILY [facility] Last Admin: 10/03/17 09:08 Dose: Not Given - Objective Vital Signs: Vital Signs Temperature 98.2 F 10/03/17 08:00 Pulse Rate 95 H 10/03/17 08:46 Respiratory Rate 20 10/03/17 10:35 Blood Pressure 152/94 10/03/17 08:46 O2 Sat by Pulse Oximetry (%) 100 10/02/17 22:03 Constitutional: Yes: No Distress Cardiovascular: Yes: Regular Rate and Rhythm, S1, S2 Respiratory: Yes: Mechanically Ventilated Gastrointestinal: Yes: Normal Bowel Sounds, Soft. No: Tenderness Edema: Yes Labs: CBC, BMP 10/03/17 05:22 10/03/17 05:22 INR, PTT INR 1.14 (0.82-1.09) D 10/03/17 05:22 Assessment/Plan MSSA bacteremia, likely skin source Day #27 antibiotics Vertebral osteo T9T10 Resp failure Possible aspiration pneumonia Hx ETOH abuse Azotemia ? AIN secondary to B-lactam Continue vancomycin for now, adjusted for renal failure Will give 500mg today; repeat vanco trough am Will need [facility] ([facility]) anti- staph treatment
[2017-10-03] MEDS ORDERED: VANCOMYCIN 500 MG in DEXTROSE 5%-WATER - 100 ML IVPB ONE (11:45)
--- NOTE | 2017-10-03 12:17 | PN ---
Teaching Attending Note Name of Resident: Anton Zamora ATTENDING PHYSICIAN STATEMENT I saw and evaluated the patient. I reviewed the resident's note and discussed the case with the resident. I agree with the resident's findings and plan as documented. SUBJECTIVE: Patient seen and examined in the ICU. Remains intubated and sedated. AC Mode of vent. No pressors. Intake & Output 09/30/17 10/01/17 10/02/17 10/03/17 23:59 23:59 23:59 23:59 Intake Total 1999 2430 3333.4 139.2 Output Total 2120 1600 2100 720 Balance -085 964 8406.4 -580.8 Weight 185 lb 9 oz 183 lb 3.266 oz 185 lb 186 lb 1.6 oz Last Vital Signs Temp Pulse Resp BP Pulse Ox 98.3 F 78 20 151/84 100 10/03/17 10:00 10/03/17 10:00 10/03/17 12:20 10/03/17 10:00 10/03/17 10:00 Active Medications Acetaminophen (Tylenol -) 650 mg NR Q6H PRN PRN Reason: FEVER OR PAIN Last Admin: 09/16/17 18:27 Dose: 650 mg Amiodarone HCl (Cordarone -) 200 mg NGT DAILY [facility] Last Admin: 10/03/17 09:07 Dose: Not Given Chlorhexidine Gluconate (Peridex -) 15 ml MM BID [facility] Last Admin: 10/03/17 09:07 Dose: 15 ml Ferrous Sulfate (Feosol -) 325 mg PO DAILY [facility] Last Admin: 10/03/17 09:07 Dose: Not Given Folic Acid (Folic Acid -) 1 mg PO DAILY [facility] Last Admin: 10/03/17 09:07 Dose: Not Given Famotidine/Sodium Chloride (Pepcid 20 Mg Premixed Ivpb -) 20 mg in 50 mls @ 100 mls/hr IVPB BID [facility] Last Admin: 10/03/17 09:07 Dose: 100 mls/hr Propofol (Diprivan -) 1,000,000 mcg in 100 mls @ 2.493 mls/hr IVPB TITR [facility]; 5 MCG/KG/MIN PRN Reason: Protocol Last Admin: 10/03/17 08:39 Dose: 35 mcg/kg/min, 17.451 mls/hr Vancomycin HCl 500 mg/ (Dextrose) 100 mls @ 100 mls/hr IVPB ONCE ONE Stop: 10/03/17 12:44 Metoprolol Tartrate (Lopressor -) 25 mg NGT BID [facility] Last Admin: 10/03/17 09:07 Dose: Not Given Metoprolol Tartrate (Lopressor Injection -) 5 mg IVPUSH Q6H PRN PRN Reason: HYPERTENSION Last Admin: 10/03/17 08:46 Dose: 5 mg Multivitamins/Minerals (Theragran-M) 1 each PO DAILY [facility] Last Admin: 10/03/17 09:08 Dose: Not Given Mupirocin (Bactroban 2% Cream -) 1 applic TP BID [facility] Last Admin: 10/03/17 09:08 Dose: 1 applic Sevelamer Carbonate (Renvela Powder Packet -) 0.8 gm NGT TIDCM [facility] Last Admin: 10/03/17 08:00 Dose: Not Given Thiamine HCl (Vitamin B1 -) 100 mg PO DAILY [facility] Last Admin: 10/03/17 09:08 Dose: Not Given GENERAL: Intubated and awake. HEAD: Normal with no signs of trauma. EYES: (-) Pallor ENT: Ears normal, nares patent, moist mucous membranes. NECK: Trachea midline, LUNGS: Bilateral coarse rhonchi, No wheeze HEART: s1s2 chris.. ABDOMEN: Soft, nontender, nondistended, normoactive bowel sounds, no guarding, no rebound, EXTREMITIES: edema++ SKIN: Warm, dry, Laboratory Results - last 24 hr 10/02/17 10/02/17 10/02/17 04:15 06:00 10:55 WBC RBC Hgb Hct MCV MCH MCHC RDW Plt Count MPV Neutrophils % Lymphocytes % Monocytes % Eosinophils % Basophils % PT with INR INR Puncture Site ABG pH ABG pCO2 at Pt Temp ABG pO2 at Pt Temp ABG HCO3 ABG O2 Sat (Measured) ABG O2 Content ABG Base Excess Anoop Test Oxygen Flow Rate Vent Mode Vent Rate Mechanical Rate PEEP Pressure Support Vent Sodium 153 H Potassium 3.8 Chloride 121 H Carbon Dioxide 19 L D Anion Gap 13 BUN 127 H* Creatinine 5.2 H Creat Clearance w eGFR 11.09 POC Glucometer 129.89268 Random Glucose 126 H D Calcium 7.8 L Phosphorus 5.1 H Cancelled Magnesium 2.1 Cancelled Total Bilirubin 1.0 AST 30 ALT 7 L Alkaline Phosphatase 127 H Total Protein 7.2 Albumin 2.1 L 10/02/17 10/02/17 10/03/17 11:27 21:35 05:22 WBC RBC Hgb Hct MCV MCH MCHC RDW Plt Count MPV Neutrophils % Lymphocytes % Monocytes % Eosinophils % Basophils % PT with INR 12.90 H INR 1.14 D Puncture Site ABG pH ABG pCO2 at Pt Temp ABG pO2 at Pt Temp ABG HCO3 ABG O2 Sat (Measured) ABG O2 Content ABG Base Excess Anoop Test Oxygen Flow Rate Vent Mode Vent Rate Mechanical Rate PEEP Pressure Support Vent Sodium Potassium Chloride Carbon Dioxide Anion Gap BUN Creatinine Creat Clearance w eGFR POC Glucometer 115.37400 120.62776 Random Glucose Calcium Phosphorus Magnesium Total Bilirubin AST ALT Alkaline Phosphatase Total Protein Albumin 10/03/17 10/03/17 10/03/17 05:22 05:22 06:39 WBC 12.0 H RBC 2.57 L Hgb 7.4 L Hct 22.3 L MCV 86.9 MCH 28.9 MCHC 33.3 RDW 17.2 H Plt Count 163 MPV 7.6 Neutrophils % 67.8 Lymphocytes % 9.3 Monocytes % 8.9 Eosinophils % 13.5 H Basophils % 0.5 PT with INR INR Puncture Site ABG pH ABG pCO2 at Pt Temp ABG pO2 at Pt Temp ABG HCO3 ABG O2 Sat (Measured) ABG O2 Content ABG Base Excess Anoop Test Oxygen Flow Rate Vent Mode Vent Rate Mechanical Rate PEEP Pressure Support Vent Sodium 150 H Potassium 3.7 Chloride 118 H Carbon Dioxide 17 L Anion Gap 15 BUN 116 H* Creatinine 5.1 H Creat Clearance w eGFR 11.34 POC Glucometer 108.62887 Random Glucose 91 D Calcium 7.7 L Phosphorus 4.8 Magnesium 2.0 Total Bilirubin 0.8 AST 35 ALT < 6 L Alkaline Phosphatase 143 H Total Protein 7.2 Albumin 2.0 L 10/03/17 07:12 WBC RBC Hgb Hct MCV MCH MCHC RDW Plt Count MPV Neutrophils % Lymphocytes % Monocytes % Eosinophils % Basophils % PT with INR INR Puncture Site Left radial ABG pH 7.38 ABG pCO2 at Pt Temp 32.2 L ABG pO2 at Pt Temp 125.0 H ABG HCO3 18.6 L ABG O2 Sat (Measured) 99.0 H ABG O2 Content 11.3 L ABG Base Excess -5.3 L Anoop Test Positive Oxygen Flow Rate 40 Vent Mode A/c Vent Rate 14 Mechanical Rate Yes PEEP 5.0 Pressure Support Vent 450 Sodium Potassium Chloride Carbon Dioxide Anion Gap BUN Creatinine Creat Clearance w eGFR POC Glucometer Random Glucose Calcium Phosphorus Magnesium Total Bilirubin AST ALT Alkaline Phosphatase Total Protein Albumin ASSESSMENT/PLAN: Acute Hypoxic Respiratory Failure Pneumonia MSSA Bacteremia Loculated Pleural Effusions LV Diastolic Dysfunction Paroxysmal Atrial Fibrillation Acute Kidney Injury GI Bleed likely from rectal tube/ulcer Acute Blood Loss Anemia AFib Will need Tracheostomy ABX per ID VTE prophylaxis IVF PPI Rate control with metoprolol VTE prophylaxis For PEG Dr Griffin Critical care time spent in reviewing chart, evaluating patient and formulating plan - 40 minutes.
--- NOTE | 2017-10-03 13:36 | PN ---
Physical Exam: SUBJECTIVE: Patient seen and examined OBJECTIVE: Vital Signs Period Temp Pulse Resp BP Sys/Jeff Pulse Ox Last 24 Hr 98.2 F-99.8 F 78-98 19-26 138-158/84-101 98-100 GENERAL: sedated intubated. HEAD: Normal with no signs of trauma. EYES: PERRL, No ptosis. ENT: Ears normal, nares patent, moist mucous membranes. NECK: Trachea midline, LUNGS: decrease breath sound b/l crackels at base, chest tube in situ on right side. HEART: s1s2 chris.. ABDOMEN: Soft, nontender, nondistended, normoactive bowel sounds, no guarding, no rebound, EXTREMITIES: edema+ SKIN: Warm, dry, Laboratory Results - last 24 hr 10/02/17 10/02/17 10/03/17 04:15 21:35 05:22 WBC RBC Hgb Hct MCV MCH MCHC RDW Plt Count MPV Neutrophils % Lymphocytes % Monocytes % Eosinophils % Basophils % PT with INR 12.90 H INR 1.14 D Puncture Site ABG pH ABG pCO2 at Pt Temp ABG pO2 at Pt Temp ABG HCO3 ABG O2 Sat (Measured) ABG O2 Content ABG Base Excess Anoop Test Oxygen Flow Rate Vent Mode Vent Rate Mechanical Rate PEEP Pressure Support Vent Sodium Potassium Chloride Carbon Dioxide Anion Gap BUN Creatinine Creat Clearance w eGFR POC Glucometer 129.95827 120.63068 Random Glucose Calcium Phosphorus Magnesium Total Bilirubin AST ALT Alkaline Phosphatase Total Protein Albumin 10/03/17 10/03/17 10/03/17 05:22 05:22 06:39 WBC 12.0 H RBC 2.57 L Hgb 7.4 L Hct 22.3 L MCV 86.9 MCH 28.9 MCHC 33.3 RDW 17.2 H Plt Count 163 MPV 7.6 Neutrophils % 67.8 Lymphocytes % 9.3 Monocytes % 8.9 Eosinophils % 13.5 H Basophils % 0.5 PT with INR INR Puncture Site ABG pH ABG pCO2 at Pt Temp ABG pO2 at Pt Temp ABG HCO3 ABG O2 Sat (Measured) ABG O2 Content ABG Base Excess Anoop Test Oxygen Flow Rate Vent Mode Vent Rate Mechanical Rate PEEP Pressure Support Vent Sodium 150 H Potassium 3.7 Chloride 118 H Carbon Dioxide 17 L Anion Gap 15 BUN 116 H* Creatinine 5.1 H Creat Clearance w eGFR 11.34 POC Glucometer 108.88697 Random Glucose 91 D Calcium 7.7 L Phosphorus 4.8 Magnesium 2.0 Total Bilirubin 0.8 AST 35 ALT < 6 L Alkaline Phosphatase 143 H Total Protein 7.2 Albumin 2.0 L 10/03/17 07:12 WBC RBC Hgb Hct MCV MCH MCHC RDW Plt Count MPV Neutrophils % Lymphocytes % Monocytes % Eosinophils % Basophils % PT with INR INR Puncture Site Left radial ABG pH 7.38 ABG pCO2 at Pt Temp 32.2 L ABG pO2 at Pt Temp 125.0 H ABG HCO3 18.6 L ABG O2 Sat (Measured) 99.0 H ABG O2 Content 11.3 L ABG Base Excess -5.3 L Anoop Test Positive Oxygen Flow Rate 40 Vent Mode A/c Vent Rate 14 Mechanical Rate Yes PEEP 5.0 Pressure Support Vent 450 Sodium Potassium Chloride Carbon Dioxide Anion Gap BUN Creatinine Creat Clearance w eGFR POC Glucometer Random Glucose Calcium Phosphorus Magnesium Total Bilirubin AST ALT Alkaline Phosphatase Total Protein Albumin Active Medications Generic Name Dose Route Start Last Admin Trade Name Freq PRN Reason Stop Dose Admin Acetaminophen 650 mg 09/07/17 05:53 09/16/17 18:27 Tylenol - NR 650 mg Q6H PRN Administration FEVER OR PAIN Amiodarone HCl 200 mg 10/02/17 08:00 10/03/17 09:07 Cordarone - NGT Not Given DAILY [facility] Chlorhexidine Gluconate 15 ml 09/08/17 12:30 10/03/17 09:07 Peridex - MM 15 ml BID [facility] Administration Ferrous Sulfate 325 mg 09/05/17 12:00 10/03/17 09:07 Feosol - PO Not Given DAILY [facility] Folic Acid 1 mg 09/02/17 10:00 10/03/17 09:07 Folic Acid - PO Not Given DAILY [facility] Famotidine/Sodium Chloride 20 mg in 50 mls @ 100 mls/hr 09/28/17 10:00 09:07 Pepcid 20 Mg Premixed Ivpb - IVPB 100 mls/hr BID [facility] Administration Propofol 1,000,000 mcg in 100 mls @ 2.493 mls/hr 10/01/17 12:30 10/03/17 08: 39 Diprivan - IVPB 35 mcg/kg/min TITR [facility] 17.451 mls/hr Protocol Administration 5 MCG/KG/MIN Metoprolol Tartrate 25 mg 10/02/17 07:45 10/03/17 09:07 Lopressor - NGT Not Given BID [facility] Metoprolol Tartrate 5 mg 10/02/17 16:47 10/03/17 08:46 Lopressor Injection - IVPUSH 5 mg Q6H PRN Administration HYPERTENSION Multivitamins/Minerals 1 each 09/02/17 10:00 10/03/17 09:08 Theragran-M PO Not Given DAILY [facility] Mupirocin 1 applic 09/23/17 10:00 10/03/17 09:08 Bactroban 2% Cream - TP 1 applic BID [facility] Administration Sevelamer Carbonate 0.8 gm 10/02/17 12:00 10/03/17 08:00 Renvela Powder Packet - NGT Not Given TIDCM [facility] Thiamine HCl 100 mg 09/02/17 10:00 10/03/17 09:08 Vitamin B1 - PO Not Given DAILY [facility] ASSESSMENT/PLAN: Acute Hypoxic Respiratory Failure Pneumonia MSSA Bacteremia Loculated Pleural Effusions LV Diastolic Dysfunction Paroxysmal Atrial Fibrillation Acute Kidney Injury GI Bleed likely from rectal tube/ulcer Acute Blood Loss Anemia afib - Plan - intubated sedated, will plan tracheostomy, called his daughter for consent but no one answered the phone. - start on d51/2 ns, will start tube feed after gi clearance - monitor elctrolyte, i/o , vitals. - chest physical therapy. - antibiotics as per ID, need rodent exterminator antibiotics for osteo - Nephro on case, may need HD - continue with famotidine - O2 to keep SpO2 >90% - rate control with metoprolol IV 5mg prn - DVT prophylaxis scd, hold heparin due to bleed. - got PEG - continue ICU monitoring Visit type - Emergency Visit Emergency Visit: Yes ED Registration Date: 08/31/17 Care time: The patient presented to the Emergency Department on the above date and was hospitalized for further evaluation of their emergent condition. - New Patient This patient is new to me today: No - Critical Care Critical Care patient: Yes Total Critical Care Time (in minutes): 45 Critical Care Statement: The care of this patient involved high complexity decision making to prevent further life threatening deterioration of the patient 's condition and/or to evaluate & treat vital organ system(s) failure or risk of failure.
--- NOTE | 2017-10-03 13:41 | PN ---
Progress Note, Physician History of Present Illness: Pt seen and examined at bedside. He remains in the ICU. He is going for a PEG today. Feels were held last night after midnight for the procedure. - Current Medication List Current Medications: Active Medications Acetaminophen (Tylenol -) 650 mg NR Q6H PRN PRN Reason: FEVER OR PAIN Last Admin: 09/16/17 18:27 Dose: 650 mg Amiodarone HCl (Cordarone -) 200 mg NGT DAILY [facility] Last Admin: 10/03/17 09:07 Dose: Not Given Chlorhexidine Gluconate (Peridex -) 15 ml MM BID [facility] Last Admin: 10/03/17 09:07 Dose: 15 ml Ferrous Sulfate (Feosol -) 325 mg PO DAILY [facility] Last Admin: 10/03/17 09:07 Dose: Not Given Folic Acid (Folic Acid -) 1 mg PO DAILY [facility] Last Admin: 10/03/17 09:07 Dose: Not Given Famotidine/Sodium Chloride (Pepcid 20 Mg Premixed Ivpb -) 20 mg in 50 mls @ 100 mls/hr IVPB BID [facility] Last Admin: 10/03/17 09:07 Dose: 100 mls/hr Propofol (Diprivan -) 1,000,000 mcg in 100 mls @ 2.493 mls/hr IVPB TITR [facility]; 5 MCG/KG/MIN PRN Reason: Protocol Last Admin: 10/03/17 12:30 Dose: Not Given Metoprolol Tartrate (Lopressor -) 25 mg NGT BID [facility] Last Admin: 10/03/17 09:07 Dose: Not Given Metoprolol Tartrate (Lopressor Injection -) 5 mg IVPUSH Q6H PRN PRN Reason: HYPERTENSION Last Admin: 10/03/17 08:46 Dose: 5 mg Multivitamins/Minerals (Theragran-M) 1 each PO DAILY [facility] Last Admin: 10/03/17 09:08 Dose: Not Given Mupirocin (Bactroban 2% Cream -) 1 applic TP BID [facility] Last Admin: 10/03/17 09:08 Dose: 1 applic Sevelamer Carbonate (Renvela Powder Packet -) 0.8 gm NGT TIDCM [facility] Last Admin: 10/03/17 12:00 Dose: Not Given Thiamine HCl (Vitamin B1 -) 100 mg PO DAILY [facility] Last Admin: 10/03/17 09:08 Dose: Not Given - Objective Vital Signs: Vital Signs Temperature 98.3 F 10/03/17 13:15 Pulse Rate 83 10/03/17 13:15 Respiratory Rate 21 10/03/17 13:15 Blood Pressure 151/92 10/03/17 13:15 O2 Sat by Pulse Oximetry (%) 100 10/03/17 13:00 Constitutional: Yes: Calm Eyes: Yes: Conjunctiva Clear HENT: Yes: Atraumatic Neck: Yes: Supple Cardiovascular: Yes: S1, S2 Respiratory: Yes: Mechanically Ventilated, Other (chest tube) Gastrointestinal: Yes: Soft Genitourinary: Yes: Freeman Present Musculoskeletal: Yes: Muscle Weakness Edema: Yes Neurological: Yes: Lethargy Labs: CBC, BMP 10/03/17 05:22 10/03/17 05:22 INR, PTT INR 1.14 (0.82-1.09) D 10/03/17 05:22 - ....Imaging Chest X-ray: Report Reviewed Problem List - Problems (1) Abuse, drug or alcohol Code(s): F19.10 - OTHER PSYCHOACTIVE SUBSTANCE ABUSE, UNCOMPLICATED (2) Withdrawal symptoms, alcohol Code(s): F10.239 - ALCOHOL DEPENDENCE WITH WITHDRAWAL, UNSPECIFIED Qualifiers: Complication of substance-induced condition: uncomplicated Qualified Code(s ): F10.230 - Alcohol dependence with withdrawal, uncomplicated (3) Hyponatremia Code(s): E87.1 - HYPO-OSMOLALITY AND HYPONATREMIA (4) Respiratory failure with hypoxia Code(s): J96.91 - RESPIRATORY FAILURE, UNSPECIFIED WITH HYPOXIA Qualifiers: Chronicity: acute Qualified Code(s): J96.01 - Acute respiratory failure with hypoxia (5) Staphylococcus aureus bacteremia Code(s): R78.81 - BACTEREMIA (6) Acute kidney injury Code(s): N17.9 - ACUTE KIDNEY FAILURE, UNSPECIFIED (7) Anemia Code(s): D64.9 - ANEMIA, UNSPECIFIED Qualifiers: Anemia type: unspecified type Qualified Code(s): D64.9 - Anemia, unspecified Assessment/Plan Current Medications Generic Name Dose Route Start Last Admin Trade Name Freq PRN Reason Stop Dose Admin Acetaminophen 650 mg 09/07/17 05:53 09/16/17 18:27 Tylenol - NR 650 mg Q6H PRN Administration FEVER OR PAIN Amiodarone HCl 200 mg 10/02/17 08:00 10/03/17 09:07 Cordarone - NGT Not Given DAILY [facility] Chlorhexidine Gluconate 15 ml 09/08/17 12:30 10/03/17 09:07 Peridex - MM 15 ml BID [facility] Administration Ferrous Sulfate 325 mg 09/05/17 12:00 10/03/17 09:07 Feosol - PO Not Given DAILY [facility] Folic Acid 1 mg 09/02/17 10:00 10/03/17 09:07 Folic Acid - PO Not Given DAILY [facility] Famotidine/Sodium Chloride 20 mg in 50 mls @ 100 mls/hr 09/28/17 10:00 09:07 Pepcid 20 Mg Premixed Ivpb - IVPB 100 mls/hr BID [facility] Administration Propofol 1,000,000 mcg in 100 mls @ 2.493 mls/hr 10/01/17 12:30 10/03/17 12: 30 Diprivan - IVPB Not Given TITR [facility] Protocol 5 MCG/KG/MIN Metoprolol Tartrate 25 mg 10/02/17 07:45 10/03/17 09:07 Lopressor - NGT Not Given BID [facility] Metoprolol Tartrate 5 mg 10/02/17 16:47 10/03/17 08:46 Lopressor Injection - IVPUSH 5 mg Q6H PRN Administration HYPERTENSION Multivitamins/Minerals 1 each 09/02/17 10:00 10/03/17 09:08 Theragran-M PO Not Given DAILY [facility] Mupirocin 1 applic 09/23/17 10:00 10/03/17 09:08 Bactroban 2% Cream - TP 1 applic BID [facility] Administration Sevelamer Carbonate 0.8 gm 10/02/17 12:00 10/03/17 12:00 Renvela Powder Packet - NGT Not Given TIDCM [facility] Thiamine HCl 100 mg 09/02/17 10:00 10/03/17 09:08 Vitamin B1 - PO Not Given DAILY [facility] Impression 1. ALEXANDRA 2. fluid overload 3. hypoalbuminemia 4. respiratory failure requiring intubation 5. anemia 6. etoh abuse 7. fevers 8. hypokalemia 9. pleural effusion 10. hypernatremia 11. GI bleed 12. rash Plan - renal function is starting to improve - resume tube feeds after peg placed and cleared by GI - hypotonic fluids while NPO - repeat labs in am - monitor renal function - cont vent support - he is making urine - awaiting renal recovery - will still consider HD therapy if he worsens - daughter's number: Emelina [phone]. - ALEXANDRA is multifactorial - cont chest tube care - monitor pulse ox - keep pt in ICU - will follow Dr Peres
--- NOTE | 2017-10-03 13:41 | PROC ---
Endoscopy Procedure Endoscopy procedure completed. Please see scanned procedure report. Endoscopic PEG placement in ICU Do not use PEG until cleared by GI Call GI if bleeding, fever >104, hypotension, tachycardia, melena. will follow
[2017-10-03] MEDS ORDERED: METOPROLOL TARTRATE 5 MG/5 ML VIAL IVPUSH ONE (13:51)
[2017-10-03] MEDS ORDERED: DEXTROSE 5%-0.45% SALINE 1,000 ML IV SCH (14:00)
--- NOTE | 2017-10-03 14:57 | PN ---
Progress Note, Physician Chief Complaint: Remains in ICU and re-intubated and sedated History of Present Illness: Patient was seen and examined in ICU. Remains on mechanical ventilation. Chart was reviewed Sedated - Current Medication List Current Medications: Active Medications Acetaminophen (Tylenol -) 650 mg NR Q6H PRN PRN Reason: FEVER OR PAIN Last Admin: 09/16/17 18:27 Dose: 650 mg Amiodarone HCl (Cordarone -) 200 mg NGT DAILY [facility] Last Admin: 10/03/17 09:07 Dose: Not Given Chlorhexidine Gluconate (Peridex -) 15 ml MM BID [facility] Last Admin: 10/03/17 09:07 Dose: 15 ml Ferrous Sulfate (Feosol -) 325 mg PO DAILY [facility] Last Admin: 10/03/17 09:07 Dose: Not Given Folic Acid (Folic Acid -) 1 mg PO DAILY [facility] Last Admin: 10/03/17 09:07 Dose: Not Given Famotidine/Sodium Chloride (Pepcid 20 Mg Premixed Ivpb -) 20 mg in 50 mls @ 100 mls/hr IVPB BID [facility] Last Admin: 10/03/17 09:07 Dose: 100 mls/hr Propofol (Diprivan -) 1,000,000 mcg in 100 mls @ 2.493 mls/hr IVPB TITR [facility]; 5 MCG/KG/MIN PRN Reason: Protocol Last Admin: 10/03/17 14:11 Dose: 35 mcg/kg/min, 17.451 mls/hr Dextrose/Sodium Chloride (D5-1/2ns -) 1,000 mls @ 75 mls/hr IV ASDIR [facility] Last Admin: 10/03/17 14:00 Dose: 75 mls/hr Metoprolol Tartrate (Lopressor -) 25 mg NGT BID [facility] Last Admin: 10/03/17 09:07 Dose: Not Given Metoprolol Tartrate (Lopressor Injection -) 5 mg IVPUSH Q6H PRN PRN Reason: HYPERTENSION Last Admin: 10/03/17 08:46 Dose: 5 mg Multivitamins/Minerals (Theragran-M) 1 each PO DAILY [facility] Last Admin: 10/03/17 09:08 Dose: Not Given Mupirocin (Bactroban 2% Cream -) 1 applic TP BID [facility] Last Admin: 10/03/17 09:08 Dose: 1 applic Sevelamer Carbonate (Renvela Powder Packet -) 0.8 gm NGT TIDCM [facility] Last Admin: 10/03/17 12:00 Dose: Not Given Thiamine HCl (Vitamin B1 -) 100 mg PO DAILY [facility] Last Admin: 10/03/17 09:08 Dose: Not Given - Objective Vital Signs: Vital Signs Temperature 98.2 F 10/03/17 14:00 Pulse Rate 75 10/03/17 14:00 Respiratory Rate 20 10/03/17 14:12 Blood Pressure 152/93 10/03/17 14:00 O2 Sat by Pulse Oximetry (%) 100 10/03/17 13:00 HENT: Yes: Atraumatic Cardiovascular: Yes: Regular Rate and Rhythm, S1, S2. No: Bruit Respiratory: Yes: Diminished Gastrointestinal: Yes: Normal Bowel Sounds, Soft, Other (Post PEG). No: Tenderness Edema: No Labs: CBC, BMP 10/03/17 05:22 10/03/17 05:22 INR, PTT INR 1.14 (0.82-1.09) D 10/03/17 05:22 Problem List - Problems (1) Abuse, drug or alcohol Code(s): F19.10 - OTHER PSYCHOACTIVE SUBSTANCE ABUSE, UNCOMPLICATED (2) Respiratory failure with hypoxia Code(s): J96.91 - RESPIRATORY FAILURE, UNSPECIFIED WITH HYPOXIA Qualifiers: Chronicity: acute Qualified Code(s): J96.01 - Acute respiratory failure with hypoxia (3) Pneumonia Code(s): J18.9 - PNEUMONIA, UNSPECIFIED ORGANISM Qualifiers: Pneumonia type: aspiration pneumonia (5) History of alcohol abuse Code(s): Z87.898 - PERSONAL HISTORY OF OTHER SPECIFIED CONDITIONS (6) Acute diastolic heart failure Code(s): I50.31 - ACUTE DIASTOLIC (CONGESTIVE) HEART FAILURE (7) Anemia Code(s): D64.9 - ANEMIA, UNSPECIFIED Qualifiers: Anemia type: unspecified type Qualified Code(s): D64.9 - Anemia, unspecified Assessment/Plan 1. Paroxysmal atrial fibrillation [id number] score of 2, currently in sinus rhythm not on Eliquis in view of above noted renal insufficiency 2. Acute hypoxic respiratory failure, post re-intubated, pulmonary infiltrates/ pulmonary edema improving 3. Cavitating pneumonia, MSSA bacteremia, post septic shock no evidence of endocarditis by ALISA criteria 4. Diastolic LV dysfunction with class I-II NYHA congestive heart failure, volume overload, resolved 5. 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 Loculated effusion post chest tube insertion 7. History of alcohol dependence 8. Acute renal insufficiency 9. Hypernatremia 10. Anemia PLAN: 1. Vent support 2. Continue beta amairani - IV Lopressor as needed 3. Amiodarone 4. Antibiotics as per ID service Further plans are to follow Jordon Gtz MD
--- NOTE | 2017-10-03 15:58 | PN ---
Teaching Attending Note Name of Resident: Lydia Salter ATTENDING PHYSICIAN STATEMENT I saw and evaluated the patient. I reviewed the resident's note and discussed the case with the resident. I agree with the resident's findings and plan as documented. SUBJECTIVE:intubated, alert OBJECTIVE: Last Vital Signs Temp Pulse Resp BP Pulse Ox 98.2 F 75 20 152/93 100 10/03/17 14:00 10/03/17 14:00 10/03/17 14:12 10/03/17 14:00 10/03/17 13:00 Intake & Output 09/30/17 10/01/17 10/02/17 10/03/17 23:59 23:59 23:59 23:59 Intake Total 1999 2430 3333.4 139.2 Output Total 0 1600 2100 720 Balance -363 974 2446.4 -580.8 Weight 185 lb 9 oz 183 lb 3.266 oz 185 lb 186 lb 1.6 oz General alert, follows simple commands CV S1 S2 RRR no murmur/rub/gallop Lungs course breath sounds diffusely decreased breath sounds at bases abdomen soft NT/ND Extremities trace pitting edema all 4 extremities skin diffuse macular rash on upper chest and B/L UE ASSESSMENT AND PLAN: 66 yo M with PMH alcohol abuse, HTN who presented to the ER after being found on the floor. 1. Acute hypoxic respiratory failure- likely due to cavitary PNA. s/p extubated 09/19 and reintubated and extubated 09/27. re-intubated 10/01. due to tacypnea and hypoxia. full vent support. will cristina require trach at this time, awaiting to reach daughter for consent. crit care on board. 2. Sepsis secondary to cavitary healthcare-associated pneumonia, MSSA bacteremia and vertebral OM- with complicated loculated effusion. s/p chest tube removed yesterday. on vanco by level. CT surgery and ID on board 3. New onset afib-rate controlled. on amio po. anticoagulation on hold due to medical problems. should ideally be on coumadin once improved. 4. Acute kidney injury with hyperphosphatemia- slight improvement in uremia. no indication for emergent HD, may require if does not improve. Nephrology on board. 5. Anemia- s/p 3 units PRBC this admission. acute drop possible due to trauma of NGT placement.bleeding now stopped. nasal packing removed. on iron supplementations. 6. Hepatic transaminitis- stable. US shows hepatosplenomegaly and fatty infiltration of liver 7. Thrombocytopenia- Secondary to alcohol, splenomegaly. now stable 8. HTN- initially hypotensive. now off pressors. cont medications 9. 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 DVT prophylaxis- heparin sq 12. Dysphagia-likely due to weakness. NPO. plan for PEG today. GI on board 13. MICU monitoring The care of this patient involved high complexity decision making to prevent further life threatening deterioration of the patient's condition and/or to evaluate & treat vital organ system(s) failure or risk of failure. 40 mins
[2017-10-03] MEDS ORDERED: BENZOIN/ALOE VERA/STORAX/TOLU 58 ML BOTTLE ONE (17:23)
--- NOTE | 2017-10-03 18:29 | PN ---
Physical Exam: 24H Events: yesterday - tube feeds via OGT with free water flushes AM - PEG tube placed SUBJECTIVE: Patient seen and examined. Ventilated AC mode, FiO2 40%, with mild sedation OBJECTIVE: Vital Signs Period Temp Pulse Resp BP Sys/Jeff Pulse Ox Last 24 Hr 98.2 F-99.8 F 75-95 19-28 138-163/84-101 98-100 Intake & Output 09/30/17 10/01/17 10/02/17 10/03/17 23:59 23:59 23:59 23:59 Intake Total 1999 2430 3333.4 139.2 Output Total 2120 1600 2100 1620 Balance -321 189 5078.4 -1480.8 Weight 84.17 kg 83.1 kg 83.915 kg 84.414 kg GENERAL: Intubated, awake, following verbal commands EYES: PERRL, extraocular movements intact, sclera anicteric, conjunctiva clear. No ptosis. ENT: crusted/clotted blood in oropharynx LUNGS: mechanical breath sounds, b/l rhonchi HEART: rrr, normal s1/s2 ABDOMEN: Soft, ntnd EXTREMITIES: 2+ pulses, wwp, 1+ pitting edema bilaterally SKIN: confluent hive-like rash on anterior chest and R/L UE, R anterior norris lesions improving Laboratory Results - last 24 hr CBC, BMP 10/03/17 05:22 10/03/17 05:22 Hepatic Panel Direct Bilirubin 1.8 mg/dL (0.0-0.2) H D 09/09/17 05:00 Total Bilirubin 0.8 mg/dL (0.2-1.0) 10/03/17 05:22 AST 35 U/L (15-37) 10/03/17 05:22 ALT < 6 U/L (12-78) L 10/03/17 05:22 Alkaline Phosphatase 143 U/L (45-117) H 10/03/17 05:22 Albumin 2.0 g/dl (3.4-5.0) L 10/03/17 05:22 Active Medications Acetaminophen (Tylenol -) 650 mg NR Q6H PRN PRN Reason: FEVER OR PAIN Last Admin: 09/16/17 18:27 Dose: 650 mg Amiodarone HCl (Cordarone -) 200 mg NGT DAILY [facility] Last Admin: 10/03/17 09:07 Dose: Not Given Chlorhexidine Gluconate (Peridex -) 15 ml MM BID [facility] Last Admin: 10/03/17 09:07 Dose: 15 ml Ferrous Sulfate (Feosol -) 325 mg PO DAILY [facility] Last Admin: 10/03/17 09:07 Dose: Not Given Folic Acid (Folic Acid -) 1 mg PO DAILY [facility] Last Admin: 10/03/17 09:07 Dose: Not Given Famotidine/Sodium Chloride (Pepcid 20 Mg Premixed Ivpb -) 20 mg in 50 mls @ 100 mls/hr IVPB BID [facility] Last Admin: 10/03/17 09:07 Dose: 100 mls/hr Propofol (Diprivan -) 1,000,000 mcg in 100 mls @ 2.493 mls/hr IVPB TITR [facility]; 5 MCG/KG/MIN PRN Reason: Protocol Last Admin: 10/03/17 14:11 Dose: 35 mcg/kg/min, 17.451 mls/hr Dextrose/Sodium Chloride (D5-1/2ns -) 1,000 mls @ 75 mls/hr IV ASDIR [facility] Last Admin: 10/03/17 14:00 Dose: 75 mls/hr Metoprolol Tartrate (Lopressor -) 25 mg NGT BID [facility] Last Admin: 10/03/17 09:07 Dose: Not Given Metoprolol Tartrate (Lopressor Injection -) 5 mg IVPUSH Q6H PRN PRN Reason: HYPERTENSION Last Admin: 10/03/17 16:56 Dose: 5 mg Multivitamins/Minerals (Theragran-M) 1 each PO DAILY [facility] Last Admin: 10/03/17 09:08 Dose: Not Given Mupirocin (Bactroban 2% Cream -) 1 applic TP BID [facility] Last Admin: 10/03/17 09:08 Dose: 1 applic Sevelamer Carbonate (Renvela Powder Packet -) 0.8 gm NGT TIDCM REPL[facility] Last Admin: 10/03/17 16:52 Dose: Not Given Thiamine HCl (Vitamin B1 -) 100 mg PO DAILY [facility] Last Admin: 10/03/17 09:08 Dose: Not Given ASSESSMENT/PLAN: 66yo man with PMH of EtOH abuse and HTN who is admitted (08/31) for acute hypoxic respiratory failure requiring mechanical ventilation (09/02-09/19, 09/24- ). Reintubated today. Continues to have cavitary PNA with loculated effusions bilaterally, R pigtail CT with minimal drainage, and acute thoracic osteomyletitis (T9-T10). Antibiotic changed from Cefazolin (09/16-09/28) to Vancomycin on 09/29 (renally dosed) given possible allergic reaction. Renal function improving, and he is maintaining UOP. Planning for possible tracheostomy as this is 3rd intubation. #sepsis 2/2 cavitary PNA, acute osteomyelitis -ID following, long-term abx needed for acute osteomyelitis (6-8 wks), day#27 -Vancomycin 500mg IV, dosed renally, check Random Vanc level daily #acute hypoxic respiratory failure -Vent mgmt per ICU team, planning for tracheostomy #ARF, Renal following, still considering HD, renal function slight improvement today -Ferrous Sulfate 325 mg PO DAILY and Sevelamer Carbonate (Renvela) 800 mg PO TID -Strict I&Os, hines, Renal dose for meds #Acute blood loss anemia, s/p 3Ux PRBCs, Hgb stable, no further bleeds -Trend H&H, transfuse Hgb<7 #Afib - recurrent episode last night, started on amio gtt -Cardiology following -Amiodarone 200mg OGT qd for rate control -hold AC now given co-morbidities (CHADVASC 2) #suspected chronic diastolic heart failure - ECHO 09/02/2017 probable preserved LV function, but can't R/O regional wall motion abnormality -Metoprolol 25mg BID and 5mg IV Q6H PRN -consider hydralazine prn #EtOH abuse -Monitor for signs of EtOH withdrawal -MVI, thiamine 100mg PO qd, folic acid 1mg PO daily #FEN -IVF held -lyte abnormalities noted, Renal considering HD -NPO, await GI approval to use PEG #PPX -Heparin 5000U SQ TID -GI - pepcid 20mg IV BID #Dispo: continue ICU monitoring FULL code d/w Dr. Zakia Salter MD PGY-1 Visit type - Emergency Visit Emergency Visit: No - New Patient This patient is new to me today: No - Critical Care Critical Care patient: Yes Total Critical Care Time (in minutes): 40 Critical Care Statement: The care of this patient involved high complexity decision making to prevent further life threatening deterioration of the patient 's condition and/or to evaluate & treat vital organ system(s) failure or risk of failure.
[2017-10-04 06:42] LABS: BASOPHIL 0.5 % (0-2.0); EOSINOPHIL 12.8 % (0-4.5); MCH 29.1 pg (25.7-33.7); MCHC 33.5 g/dl (32.0-35.9); MEAN CELL VOLUME 86.9 fl (80-96); MEAN PLT VOLUME 7.2 fl (7.5-11.1); NEUTROPHILS 70.4 % (42.8-82.8); PLATELET COUNT 176 K/MM3 (134-434); RDW 17.4 % (11.9-15.9); WHITE BLOOD COUNT 13.5 K/mm3 (4.0-10.0)
[2017-10-04] MEDS ORDERED: HEMOQUE TEST 1 EACH EACH ONE ×2 (06:45→07:04)
[2017-10-04 06:58] LABS: ALBUMIN 1.9 g/dl (3.4-5.0); ALK PHOS 127 U/L (45-117); ANION GAP 14 (8-16); BILIRUBIN,TOTAL 0.6 mg/dL (0.2-1.0); CALCIUM 7.7 mg/dL (8.5-10.1); CO2 19 mmol/L (21-32); CREATININE 4.6 mg/dL (0.7-1.3); GLUCOSE,RANDOM 134 mg/dL (74-106); SGOT/AST 29 U/L (15-37); SGPT/ALT < 6 U/L (12-78)
[2017-10-04] MEDS ORDERED: DEXTROSE 5%-WATER - 1,000 ML IV SCH (08:15)
[2017-10-04] MEDS: MULTIVITAMINS THER W-MINERALS COMBO TABLET (FP) PO SCH (09:00)
[2017-10-04] MEDS: PROPOFOL 1,000,000 MCG/100 ML VIAL IVPB SCH (09:00)
[2017-10-04] MEDS: FAMOTIDINE 20 MG/50 ML IVPB 20 MG/50 ML MG IVPB SCH ×2 (09:24→21:42)
[2017-10-04] MEDS: MUPIROCIN CA 2% TOPICAL CREAM 15 GM TUBE TP SCH ×2 (09:25→21:42)
--- NOTE | 2017-10-04 10:30 | PN ---
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 Pt orally intubated, awake, attempting to communicate with staff using communication board. Reassessed writing ability with UE/hand weakness, with illegible letters. Created larger letter board, and a few word/phrases on clip board. With right restraint removed, and UE, elbow supported, pt was able to easily move his arm and spell out "WATER". Educated staff on using hand written letter/word board which may be simpler and more effective. Pt would benefit from LTACH.
--- NOTE | 2017-10-04 11:28 | PN ---
Progress Note, Physician History of Present Illness: WBC 12 -> 13.5, afebrile. tmax 99.2. On Vanco. No events. PEG intact, no bleeding. - Current Medication List Current Medications: Active Medications Acetaminophen (Tylenol -) 650 mg NR Q6H PRN PRN Reason: FEVER OR PAIN Last Admin: 09/16/17 18:27 Dose: 650 mg Amiodarone HCl (Cordarone -) 200 mg NGT DAILY [facility] Last Admin: 10/03/17 09:07 Dose: Not Given Chlorhexidine Gluconate (Peridex -) 15 ml MM BID [facility] Last Admin: 10/03/17 21:16 Dose: 15 ml Ferrous Sulfate (Feosol -) 325 mg PO DAILY [facility] Last Admin: 10/03/17 09:07 Dose: Not Given Folic Acid (Folic Acid -) 1 mg PO DAILY [facility] Last Admin: 10/03/17 09:07 Dose: Not Given Famotidine/Sodium Chloride (Pepcid 20 Mg Premixed Ivpb -) 20 mg in 50 mls @ 100 mls/hr IVPB BID [facility] Last Admin: 10/04/17 09:24 Dose: 100 mls/hr Propofol (Diprivan -) 1,000,000 mcg in 100 mls @ 2.493 mls/hr IVPB TITR [facility]; 5 MCG/KG/MIN PRN Reason: Protocol Last Admin: 10/03/17 14:11 Dose: 35 mcg/kg/min, 17.451 mls/hr Dextrose (D5w -) 1,000 mls @ 83 mls/hr IV .Q12H3M COUNTS INCLUDE 234 BEDS AT [facility] Metoprolol Tartrate (Lopressor -) 25 mg NGT BID [facility] Last Admin: 10/03/17 21:15 Dose: Not Given Metoprolol Tartrate (Lopressor Injection -) 5 mg IVPUSH Q6H PRN PRN Reason: HYPERTENSION Last Admin: 10/03/17 16:56 Dose: 5 mg Multivitamins/Minerals (Theragran-M) 1 each PO DAILY [facility] Last Admin: 10/03/17 09:08 Dose: Not Given Mupirocin (Bactroban 2% Cream -) 1 applic TP BID [facility] 234 B[facility]S [facility] Last Admin: 10/04/17 09:25 Dose: 1 applic Sevelamer Carbonate (Renvela Powder Packet -) 0.8 gm NGT TIDCM [facility] 234 BEDS [facility] Last Admin: 10/03/17 16:52 Dose: Not Given Thiamine HCl (Vitamin B1 -) 100 mg PO DAILY [facility] 234 [facility]S [facility] Last Admin: 10/03/17 09:08 Dose: Not Given - Objective Vital Signs: Vital Signs Temperature 98.3 F 10/04/17 08:00 Pulse Rate 90 10/04/17 10:00 Respiratory Rate 21 10/04/17 11:21 Blood Pressure 180/100 10/04/17 10:00 O2 Sat by Pulse Oximetry (%) 100 10/04/17 10:31 Constitutional: Yes: No Distress, Calm Eyes: Yes: Conjunctiva Clear Gastrointestinal: Yes: Normal Bowel Sounds. No: Distention, Melena, Palpable Mass, Rectal Bleeding, Vomiting Neurological: Yes: Alert Labs: CBC, BMP 10/04/17 06:05 10/04/17 06:05 INR, PTT INR 1.14 (0.82-1.09) D 10/03/17 05:22 Laboratory Last Values WBC 13.5 K/mm3 (4.0-10.0) H 10/04/17 06:05 RBC 2.44 M/mm3 (4.00-5.60) L 10/04/17 06:05 Hgb 7.1 GM/dL (11.7-16.9) L 10/04/17 06:05 Hct 21.2 % (35.4-49) L 10/04/17 06:05 MCV 86.9 fl (80-96) 10/04/17 06:05 MCH 29.1 pg (25.7-33.7) 10/04/17 06:05 MCHC 33.5 g/dl (32.0-35.9) 10/04/17 06:05 RDW 17.4 % (11.9-15.9) H 10/04/17 06:05 Plt Count 176 K/MM3 (134-434) 10/04/17 06:05 MPV 7.2 fl (7.5-11.1) L 10/04/17 06:05 Total Counted 100 09/02/17 15:55 Neutrophils % (Manual) 76 % (42.8-82.8) 09/02/17 15:55 Band Neuts % (Manual) 10 % (0-10) D 09/02/17 15:55 Lymphocytes % (Manual) 5 % (8-40) L D 09/02/17 15:55 Neutrophils % 70.4 % (42.8-82.8) 10/04/17 06:05 Monocytes % (Manual) 9 % (3.8-10.2) 09/02/17 15:55 Lymphocytes % 8.6 % (8-40) 10/04/17 06:05 Eosinophils % (Manual) 1 % (0-4.5) 09/01/17 09:05 Myelocytes % (Man) 1 % (0-2) 09/01/17 02:11 Monocytes % 7.7 % (3.8-10.2) 10/04/17 06:05 Eosinophils % 12.8 % (0-4.5) H 10/04/17 06:05 Basophils % 0.5 % (0-2.0) 10/04/17 06:05 Platelet Estimate Adequate (NORMAL) 09/19/17 05:28 Platelet Comment No clumping noted 09/19/17 05:28 Platelet Comment No clotting detected 09/19/17 05:28 Anisocytosis 1+ 09/01/17 02:11 Microcytosis 1+ 09/01/17 02:11 ESR 105 mm/hr (0-20) H 09/03/17 05:00 PT with INR 12.90 SEC (9.98-11.88) H 10/03/17 05:22 INR 1.14 (0.82-1.09) D 10/03/17 05:22 PTT (Actin FS) 32.5 SECONDS (26.9-34.4) 10/01/17 18:35 Anticoagulation Therapy Y 09/06/17 07:35 Puncture Site Left radial 10/03/17 07:12 ABG pH 7.38 (7.35-7.45) 10/03/17 07:12 ABG pCO2 at Pt Temp 32.2 mmHg (35-45) L 10/03/17 07:12 ABG pO2 at Pt Temp 125.0 mmHg (80-100) H 10/03/17 07:12 ABG HCO3 18.6 meq/L (22-26) L 10/03/17 07:12 ABG O2 Sat (Measured) 99.0 % (90-98.9) H 10/03/17 07:12 ABG O2 Content 11.3 % vol (15-22) L 10/03/17 07:12 ABG Base Excess -5.3 meq/l (-2-2) L 10/03/17 07:12 Anoop Test Positive 10/03/17 07:12 O2 Delivery Device Bipap 12/6(12) 09/24/17 11:37 Oxygen Flow Rate 40 10/03/17 07:12 Vent Mode A/c 10/03/17 07:12 Vent Rate 14 10/03/17 07:12 Mechanical Rate Yes 10/03/17 07:12 PEEP 5.0 cmH2O 10/03/17 07:12 Pressure Support Vent 450 10/03/17 07:12 Sodium 152 mmol/L (136-145) H 10/04/17 06:05 Potassium 3.5 mmol/L (3.5-5.1) 10/04/17 06:05 Chloride 119 mmol/L (98-107) H 10/04/17 06:05 Carbon Dioxide 19 mmol/L (21-32) L 10/04/17 06:05 Anion Gap 14 (8-16) 10/04/17 06:05 BUN 112 mg/dL (7-18) H* 10/04/17 06:05 Creatinine 4.6 mg/dL (0.7-1.3) H 10/04/17 06:05 Creat Clearance w eGFR 12.77 (>60) 10/04/17 06:05 POC Glucometer 111.44439 UNITS (80-120) 10/03/17 21:29 Random Glucose 134 mg/dL (74-106) H D 10/04/17 06:05 Serum Osmolality 305 mosm/kg (278-305) 09/12/17 05:00 Lactic Acid 1.4 mmol/L (0.4-2.0) 09/01/17 09:05 Calcium 7.7 mg/dL (8.5-10.1) L 10/04/17 06:05 Phosphorus 4.8 mg/dL (2.5-4.9) 10/03/17 05:22 Magnesium 2.0 mg/dL (1.8-2.4) 10/03/17 05:22 Direct Bilirubin 1.8 mg/dL (0.0-0.2) H D 09/09/17 05:00 Total Bilirubin 0.6 mg/dL (0.2-1.0) D 10/04/17 06:05 AST 29 U/L (15-37) 10/04/17 06:05 ALT < 6 U/L (12-78) L 10/04/17 06:05 Alkaline Phosphatase 127 U/L (45-117) H 10/04/17 06:05 LD Total 182 U/L (87-241) 09/09/17 05:00 Creatine Kinase 846 IU/L (39-308) H 08/31/17 13:40 Creatine Kinase Index 0.4 % (0.0-5.0) 08/31/17 13:40 CK-MB (CK-2) 4.023 ng/mL (0.5-3.6) H 08/31/17 13:40 C-Reactive Protein 13.2 MG/DL (0.00-0.3) H D 09/13/17 06:20 Troponin I 0.05 ng/ml (0.00-0.05) D 09/30/17 20:30 Total Protein 7.0 g/dl (6.4-8.2) 10/04/17 06:05 Albumin 1.9 g/dl (3.4-5.0) L 10/04/17 06:05 Triglycerides 181 mg/dL (35-160) H 09/01/17 09:05 Cholesterol 90 mg/dL (50-200) 09/01/17 09:05 Total LDL Cholesterol 15 mg/dL (5-100) 09/01/17 09:05 HDL Cholesterol 19 mg/dL (40-60) L 09/01/17 09:05 Total Amylase 41 U/L (25-115) 09/08/17 05:45 Lipase 200 U/L (73-393) 08/31/17 13:40 Urine Color Yellow 09/27/17 17:00 Urine Appearance Cloudy 09/27/17 17:00 Urine pH 5.0 (5.0-8.0) 09/27/17 17:00 Ur Specific Limon 1.013 (1.001-1.035) 09/27/17 17:00 Urine Protein 2+ (NEGATIVE) H 09/27/17 17:00 Urine Glucose (UA) Negative (NEGATIVE) 09/27/17 17:00 Urine Ketones Negative (NEGATIVE) 09/27/17 17:00 Urine Blood 1+ (NEGATIVE) H 09/27/17 17:00 Urine Nitrite Negative (NEGATIVE) 09/27/17 17:00 Urine Bilirubin Negative (NEGATIVE) 09/27/17 17:00 Urine Urobilinogen Negative mg/dL (0.2-1.0) 09/27/17 17:00 Ur Leukocyte Esterase Negative (NEGATIVE) 09/27/17 17:00 Urine RBC 50 09/22/17 14:30 Urine WBC (Auto) 16 09/27/17 17:00 Urine RBC (Auto) 18 09/27/17 17:00 Urine WBC 14 09/22/17 14:30 Ur Epithelial Cells Rare /hpf (FEW) 09/27/17 17:00 Urine Bacteria Rare /hpf (NONE SEEN) 09/22/17 14:30 Granular Casts 34 /lpf 09/22/17 14:30 Hyaline Casts 3 /lpf 09/27/17 17:00 Urine Mucus Rare 09/27/17 17:00 Urine Yeast Few 09/27/17 17:00 Urine Eosinophils None seen % (.) 09/13/17 11:39 Urine Osmolality 302 mosm/kg (300-900) D 09/12/17 08:00 U Random Total Protein 135 mg/dl (5-11.9) H 09/12/17 15:30 Ur Random Sodium 49 MMOL/L 09/27/17 13:46 Ur Random Potassium 11.1 MMOL/L 09/27/17 13:46 Ur Random Chloride 33 MMOL/L 09/27/17 13:46 Urine Creatinine 50.3 mg/dL (20-370) 09/27/17 13:46 Protein/Creatinin Ratio 3.4 MG/DL 09/12/17 15:30 Fluid Other Cells 1 % 09/17/17 16:14 Pleural Fluid Source Pleural 09/17/17 16:14 Pleural Color Red 09/17/17 16:14 Pleural Appearance Turbid 09/17/17 16:14 Pleural WBC 2,733 /mm3 09/17/17 16:14 Pleural RBC 440,840 /mm3 09/17/17 16:14 Pleural Neutrophils 94 % 09/17/17 16:14 Pleural Lymphocytes 4 % 09/17/17 16:14 Pleural Monocytes 1 % 09/17/17 16:14 Pleural Eosinophils 4 % 09/08/17 18:00 Pleural Macrophages 39 % 09/08/17 18:00 Pleural Mesothelial 12 % 09/08/17 18:00 Pleural Diff Comment 09/17/17 16:14 Pleural Total Protein 4.687 09/17/17 16:14 Pleural Albumin 1 g/dL 09/17/17 16:14 Pleural LDH 806 09/17/17 16:14 Pleural Glucose 38.251 09/17/17 16:14 Pleural Amylase 42.537 09/17/17 16:14 Pleural Triglycerides 213 MG.DL 09/17/17 16:14 Stool Occult Blood Negative (NEGATIVE) 09/17/17 06:00 Vancomycin Pre-Dose 24.903 ug/ml (5.0-10.0) H* D 09/12/17 09:15 Random Vancomycin 22.887 ug/ml 10/04/17 06:05 Alcohol, Quantitative < 5.0 mg/dl (0-5) 08/31/17 13:40 PROSPER Screen Positive (.) H 09/13/17 06:20 PROSPER Homogeneous Pattern TNP 09/13/17 06:20 PROSPER Nucleolar Pattern 1:80 (.) 09/13/17 06:20 PROSPER Speckled Pattern TNP 09/13/17 06:20 PROSPER Centromere Pattern TNP 09/13/17 06:20 c-ANCA <1:20 titer (Neg:<1:20) 09/13/17 06:20 Proteinase 3 (PR3) <3.5 U/mL (0.0-3.5) 09/13/17 06:20 p-ANCA <1:20 titer (Neg:<1:20) 09/13/17 06:20 Atypical p-ANCA <1:20 titer (Neg:<1:20) 09/13/17 06:20 Myeloperoxidase Ab <9.0 U/mL (0.0-9.0) 09/13/17 06:20 Double Strand DNA Ab 1 IU/mL (0-9) 09/13/17 06:20 Glomerular Base Memb Ab 5 units (0-20) 09/13/17 06:20 Complement C3 142 mg/dL (82-167) 09/13/17 18:30 Complement C4 14 mg/dL (14-44) 09/13/17 18:30 Hepatitis A IgM Ab Negative (Negative) 09/01/17 09:05 Hep Bs Antigen Negative (Negative) 09/01/17 09:05 Hep B Core IgM Ab Negative (Negative) 09/01/17 09:05 Hepatitis C Ab (EIA) <0.1 s/co ratio (0.0-0.9) 09/01/17 09:05 HIV 1&2 Antibody Screen Negative 09/02/17 05:00 HIV P24 Antigen Negative 09/02/17 05:00 TB Test (QFT) Indeterminate (Negative) 08/31/17 13:05 Blood Type O NEGATIVE 10/01/17 07:40 Antibody Screen Negative 10/01/17 07:40 Crossmatch See Detail 10/01/17 07:40 - ....Imaging X-ray: Report Reviewed Problem List - Problems (1) Failure to thrive in adult Code(s): R62.7 - ADULT FAILURE TO THRIVE (2) Respiratory failure with hypoxia Code(s): J96.91 - RESPIRATORY FAILURE, UNSPECIFIED WITH HYPOXIA Qualifiers: Chronicity: acute Qualified Code(s): J96.01 - Acute respiratory failure with hypoxia (3) Staphylococcus aureus bacteremia Code(s): R78.81 - BACTEREMIA (4) History of alcohol abuse Code(s): Z87.898 - PERSONAL HISTORY OF OTHER SPECIFIED CONDITIONS (5) Gastric ulcer Code(s): K25.9 - GASTRIC ULCER, UNSP ACUTE OR CHRONIC, W/O HEMOR OR PERF (6) Rectal bleeding Code(s): K62.5 - HEMORRHAGE OF ANUS AND RECTUM Assessment/Plan OK to use PEG as intended for medications, hydration, nutrition. Flash with free water after each use. Aspiration precautions.
[2017-10-04] MEDS: FOLIC ACID 1 MG TABLET (FP) PO SCH (11:43)
[2017-10-04] MEDS: THIAMINE HCL 100 MG TABLET (FP) PO SCH (11:43)
[2017-10-04] MEDS: FERROUS SO4 325 MG TABLET (FP) PO SCH (11:43)
[2017-10-04] MEDS: METOPROLOL TARTRATE 25 MG TABLET (FP) NGT SCH ×2 (11:43→21:42)
[2017-10-04] MEDS: AMIODARONE HCL 200 MG TABLET (FP) NGT SCH (11:43)
[2017-10-04] MEDS: SEVELAMER CARBONATE 0.8 GM POWDER PACKET NGT SCH ×3 (11:44→16:41)
[2017-10-04] MEDS ORDERED: PT OWN MED DRAWER 7, Y5N ONE ×2 (12:11→16:38)
--- NOTE | 2017-10-04 12:45 | PN ---
Teaching Attending Note Name of Resident: Michael Zhao ATTENDING PHYSICIAN STATEMENT I saw and evaluated the patient. I reviewed the resident's note and discussed the case with the resident. I agree with the resident's findings and plan as documented. SUBJECTIVE: Patient seen and examined in the ICU. Remains intubated. Awake and able to interact with us. When questioned about whether he would want a Trach, is shrugged his shoulders. I do not get a clear sense that he is understanding the need and benefit of a Trach. AC Mode of vent. No pressors. Intake & Output 10/01/17 10/02/17 10/03/17 10/04/17 23:59 23:59 23:59 23:59 Intake Total 2430 3333.4 1448.0 1108.8 Output Total 1600 2100 2120 500 Balance 830 1233.4 -672.0 608.8 Weight 183 lb 3.266 oz 185 lb 186 lb 1.6 oz 183 lb Last Vital Signs Temp Pulse Resp BP Pulse Ox 98.3 F 92 H 21 168/93 100 10/04/17 08:00 10/04/17 12:00 10/04/17 12:21 10/04/17 12:00 10/04/17 12:21 Active Medications Acetaminophen (Tylenol -) 650 mg NR Q6H PRN PRN Reason: FEVER OR PAIN Last Admin: 09/16/17 18:27 Dose: 650 mg Amiodarone HCl (Cordarone -) 200 mg NGT DAILY [facility] Last Admin: 10/04/17 11:43 Dose: 200 mg Chlorhexidine Gluconate (Peridex -) 15 ml MM BID [facility] Last Admin: 10/03/17 21:16 Dose: 15 ml Ferrous Sulfate (Feosol -) 325 mg PO DAILY [facility] Last Admin: 10/04/17 11:43 Dose: 325 mg Folic Acid (Folic Acid -) 1 mg PO DAILY [facility] Last Admin: 10/04/17 11:43 Dose: 1 mg Famotidine/Sodium Chloride (Pepcid 20 Mg Premixed Ivpb -) 20 mg in 50 mls @ 100 mls/hr IVPB BID [facility] Last Admin: 10/04/17 09:24 Dose: 100 mls/hr Propofol (Diprivan -) 1,000,000 mcg in 100 mls @ 2.493 mls/hr IVPB TITR [facility]; 5 MCG/KG/MIN PRN Reason: Protocol Last Admin: 10/03/17 14:11 Dose: 35 mcg/kg/min, 17.451 mls/hr Dextrose (D5w -) 1,000 mls @ 83 mls/hr IV .Q12H3M [facility] Metoprolol Tartrate (Lopressor -) 25 mg NGT BID [facility] Last Admin: 10/04/17 11:43 Dose: 25 mg Metoprolol Tartrate (Lopressor Injection -) 5 mg IVPUSH Q6H PRN PRN Reason: HYPERTENSION Last Admin: 10/03/17 16:56 Dose: 5 mg Multivitamins/Minerals (Theragran-M) 1 each PO DAILY [facility] Last Admin: 10/04/17 09:00 Dose: Not Given Mupirocin (Bactroban 2% Cream -) 1 applic TP BID [facility] Last Admin: 10/04/17 09:25 Dose: 1 applic Sevelamer Carbonate (Renvela Powder Packet -) 0.8 gm NGT TIDCM [facility] Last Admin: 10/04/17 12:11 Dose: 0.8 gm Thiamine HCl (Vitamin B1 -) 100 mg PO DAILY [facility] Last Admin: 10/04/17 11:43 Dose: 100 mg GENERAL: Intubated and awake. HEAD: Normal with no signs of trauma. EYES: (-) Pallor ENT: Ears normal, nares patent, moist mucous membranes. NECK: Trachea midline, LUNGS: Bilateral coarse rhonchi, No wheeze HEART: s1s2 chris.. ABDOMEN: Soft, nontender, nondistended, normoactive bowel sounds, no guarding, no rebound, EXTREMITIES: edema++ SKIN: Warm, dry, Laboratory Results - last 24 hr 10/01/17 10/03/17 10/03/17 07:40 11:06 21:29 WBC RBC Hgb Hct MCV MCH MCHC RDW Plt Count MPV Neutrophils % Lymphocytes % Monocytes % Eosinophils % Basophils % Sodium Potassium Chloride Carbon Dioxide Anion Gap BUN Creatinine Creat Clearance w eGFR POC Glucometer 99.85984 111.92745 Random Glucose Calcium Total Bilirubin AST ALT Alkaline Phosphatase Total Protein Albumin Random Vancomycin Blood Type O NEGATIVE Antibody Screen Negative Crossmatch See Detail 10/04/17 10/04/17 10/04/17 06:05 06:05 06:05 WBC 13.5 H RBC 2.44 L Hgb 7.1 L Hct 21.2 L MCV 86.9 MCH 29.1 MCHC 33.5 RDW 17.4 H Plt Count 176 MPV 7.2 L Neutrophils % 70.4 Lymphocytes % 8.6 Monocytes % 7.7 Eosinophils % 12.8 H Basophils % 0.5 Sodium 152 H Potassium 3.5 Chloride 119 H Carbon Dioxide 19 L Anion Gap 14 BUN 112 H* Creatinine 4.6 H Creat Clearance w eGFR 12.77 POC Glucometer Random Glucose 134 H D Calcium 7.7 L Total Bilirubin 0.6 D AST 29 ALT < 6 L Alkaline Phosphatase 127 H Total Protein 7.0 Albumin 1.9 L Random Vancomycin 22.887 Blood Type Antibody Screen Crossmatch ASSESSMENT/PLAN: Acute Hypoxic Respiratory Failure Pneumonia MSSA Bacteremia Loculated Pleural Effusions LV Diastolic Dysfunction Paroxysmal Atrial Fibrillation Acute Kidney Injury GI Bleed likely from rectal tube/ulcer Acute Blood Loss Anemia AFib Will likely benefit/need Tracheostomy. We will show the patient the device and further explain to him the risk and the benefits. ABX per ID VTE prophylaxis IVF PPI Rate control with metoprolol VTE prophylaxis For PEG Dr Griffin Critical care time spent in reviewing chart, evaluating patient and formulating plan - 40 minutes.
--- NOTE | 2017-10-04 13:08 | PN ---
Teaching Attending Note Name of Resident: Lydia Salter ATTENDING PHYSICIAN STATEMENT I saw and evaluated the patient. I reviewed the resident's note and discussed the case with the resident. I agree with the resident's findings and plan as documented. SUBJECTIVE:resting comfortable OBJECTIVE: Last Vital Signs Temp Pulse Resp BP Pulse Ox 98.3 F 92 H 21 168/93 100 10/04/17 08:00 10/04/17 12:00 10/04/17 12:21 10/04/17 12:00 10/04/17 12:21 Intake & Output 10/01/17 10/02/17 10/03/17 10/04/17 23:59 23:59 23:59 23:59 Intake Total 2430 3333.4 1448.0 1108.8 Output Total 1600 2100 2120 500 Balance 830 1233.4 -672.0 608.8 Weight 183 lb 3.266 oz 185 lb 186 lb 1.6 oz 183 lb General alert, follows simple commands CV S1 S2 RRR no murmur/rub/gallop Lungs course breath sounds diffusely decreased breath sounds at bases abdomen soft NT/ND +LUQ PEG no active drainage. no surrounding erythema Extremities trace pitting edema all 4 extremities skin diffuse macular rash on upper chest and B/L UE ASSESSMENT AND PLAN: 66 yo M with PMH alcohol abuse, HTN who presented to the ER after being found on the floor. 1. Acute hypoxic respiratory failure- likely due to cavitary PNA. s/p extubated 09/19 and re-intubated and extubated 09/27. re-intubated 10/01. due to tacypnea and hypoxia. full vent support. will cristina require trach at this time, crit care on board. 2. Sepsis secondary to cavitary healthcare-associated pneumonia, MSSA bacteremia and vertebral OM- with complicated loculated effusion. s/p chest tube removed yesterday. on vanco by level. CT surgery and ID on board 3. New onset afib-rate controlled. on amio po. anticoagulation on hold due to medical problems. should ideally be on coumadin once improved. 4. Acute kidney injury with hyperphosphatemia- slight improvement in uremia. no indication for emergent HD, may require if does not improve. Nephrology on board. 5. Anemia- s/p 3 units PRBC this admission. acute drop possible due to trauma of NGT placement. bleeding now stopped. nasal packing removed. on iron supplementations. 6. Hypernatremia- dehydration. switch IVF to D5w at 80cc/h 7. Hepatic transaminitis- stable. US shows hepatosplenomegaly and fatty infiltration of liver 8. Thrombocytopenia- Secondary to alcohol, splenomegaly. now stable 9. HTN- initially hypotensive. now off pressors. cont medications 10. Continue alcohol dependence- Continue thiamine, folic acid, multivitamin 11. Chronic right subdural hematoma 12. DVT prophylaxis- heparin sq 13. Dysphagia-likely due to weakness. s/p PEG placement 10/03. awaiting clearance from GI to initiate feeds. GI on board 14. MICU monitoring. daughter who is HCP has been unavailable for many days now. unable to discuss interventions and goals of care. pt is more alert now and may be able to make medical decisions regarding his care. crit care team to d/w him about trach. The care of this patient involved high complexity decision making to prevent further life threatening deterioration of the patient's condition and/or to evaluate & treat vital organ system(s) failure or risk of failure. 42 mins
--- NOTE | 2017-10-04 13:18 | PN ---
Physical Exam: 24H Events: yesterday - PEG placed SUBJECTIVE: Patient seen and examined in ICU. Ventilated AC mode, FiO2 40%, mild sedation on propofol gtt OBJECTIVE: Vital Signs Period Temp Pulse Resp BP Sys/Jeff Pulse Ox Last 24 Hr 98.2 F-99.2 F 75-97 16-34 136-180/84-101 97-100 Intake & Output 10/01/17 10/02/17 10/03/17 10/04/17 23:59 23:59 23:59 23:59 Intake Total 2430 3333.4 1448.0 1108.8 Output Total 1600 2100 2120 500 Balance 830 1233.4 -672.0 608.8 Weight 83.1 kg 83.915 kg 84.414 kg 83.007 kg GENERAL: Intubated, awake, following verbal commands EYES: PERRL, extraocular movements intact, sclera anicteric, conjunctiva clear. No ptosis. ENT: ETT, OGT, nares patent without signs of bleeding LUNGS: mechanical breath sounds, b/l rhonchi HEART: rrr, normal s1/s2 ABDOMEN: Soft, ntnd EXTREMITIES: 2+ pulses, wwp, 1+ pitting edema Lower>Upper SKIN: confluent hive-like rash on anterior chest and R/L UE, improving CBC, BMP 10/04/17 06:05 10/04/17 06:05 Hepatic Panel Direct Bilirubin 1.8 mg/dL (0.0-0.2) H D 09/09/17 05:00 Total Bilirubin 0.6 mg/dL (0.2-1.0) D 10/04/17 06:05 AST 29 U/L (15-37) 10/04/17 06:05 ALT < 6 U/L (12-78) L 10/04/17 06:05 Alkaline Phosphatase 127 U/L (45-117) H 10/04/17 06:05 Albumin 1.9 g/dl (3.4-5.0) L 10/04/17 06:05 IMAGING: CXR 09/30/17: bilateral consolidations and pleural effusions R>L, no significant change from yesterday Active Medications Acetaminophen (Tylenol -) 650 mg NR Q6H PRN PRN Reason: FEVER OR PAIN Last Admin: 10/30/17 18:27 Dose: 650 mg Amiodarone HCl (Cordarone -) 200 mg NGT DAILY [facility] Last Admin: 10/04/17 11:43 Dose: 200 mg Chlorhexidine Gluconate (Peridex -) 15 ml MM BID [facility] Last Admin: 10/03/17 21:16 Dose: 15 ml Ferrous Sulfate (Feosol -) 325 mg PO DAILY [facility] Last Admin: 10/04/17 11:43 Dose: 325 mg Folic Acid (Folic Acid -) 1 mg PO DAILY [facility] Last Admin: 10/04/17 11:43 Dose: 1 mg Famotidine/Sodium Chloride (Pepcid 20 Mg Premixed Ivpb -) 20 mg in 50 mls @ 100 mls/hr IVPB BID [facility] Last Admin: 10/04/17 09:24 Dose: 100 mls/hr Propofol (Diprivan -) 1,000,000 mcg in 100 mls @ 2.493 mls/hr IVPB TITR [facility]; 5 MCG/KG/MIN PRN Reason: Protocol Last Admin: 10/03/17 14:11 Dose: 35 mcg/kg/min, 17.451 mls/hr Dextrose (D5w -) 1,000 mls @ 83 mls/hr IV .Q12H3M [facility] Metoprolol Tartrate (Lopressor -) 25 mg NGT BID [facility] Last Admin: 10/04/17 11:43 Dose: 25 mg Metoprolol Tartrate (Lopressor Injection -) 5 mg IVPUSH Q6H PRN PRN Reason: HYPERTENSION Last Admin: 10/03/17 16:56 Dose: 5 mg Multivitamins/Minerals (Theragran-M) 1 each PO DAILY [facility] Last Admin: 10/04/17 09:00 Dose: Not Given Mupirocin (Bactroban 2% Cream -) 1 applic TP BID [facility] Last Admin: 10/04/17 09:25 Dose: 1 applic Sevelamer Carbonate (Renvela Powder Packet -) 0.8 gm NGT TIDCM [facility] Last Admin: 10/04/17 12:11 Dose: 0.8 gm Thiamine HCl (Vitamin B1 -) 100 mg PO DAILY [facility] Last Admin: 10/04/17 11:43 Dose: 100 mg ASSESSMENT/PLAN: 66yo man with PMH of EtOH abuse and HTN who is admitted (08/31) for acute hypoxic respiratory failure requiring mechanical ventilation (09/02-09/19, 09/24- , 10/01-). Continues to have cavitary PNA with loculated effusions bilaterally and acute thoracic osteomyletitis (T9-T10), currently on Vancomycin (renally dosed). Renal function improving, and maintaining UOP. ICU team discussing with patient need for tracheostomy as this is 3rd intubation. s/p PEG yesterday, which GI has cleared for use today. #sepsis 2/2 cavitary PNA, acute osteomyelitis -ID following, long-term abx needed for acute osteomyelitis (6-8 wks), day#28 -Vancomycin 500mg IV (dosed renally), check Random Vanc level daily (22 today) #acute hypoxic respiratory failure -Vent mgmt per ICU team, planning for tracheostomy #ARF, Renal following, still considering HD, renal function slight improvement today -Ferrous Sulfate 325 mg PO DAILY and Sevelamer Carbonate (Renvela) 800 mg PO TID -Strict I&Os, hines, Renal dose for meds #Acute blood loss anemia, s/p 3Ux PRBCs, Hgb stable, no further bleeds -Trend H&H, transfuse Hgb<7 #Afib - recurrent episode last night, started on amio gtt -Cardiology following -Amiodarone 200mg OGT qd for rate control -hold AC now given co-morbidities (CHADVASC 2) #suspected chronic diastolic heart failure - ECHO 09/02/2017 probable preserved LV function, but can't R/O regional wall motion abnormality -Metoprolol 25mg BID and 5mg IV Q6H PRN -consider hydralazine prn #EtOH abuse -Monitor for signs of EtOH withdrawal -MVI, thiamine 100mg PO qd, folic acid 1mg PO daily #FEN -IVF held -hyperNa -> started free water flushes via PEG -start feeds via PEG with free water flushes #PPX -Heparin 5000U SQ TID -GI - pepcid 20mg IV BID #Dispo: continue ICU monitoring FULL code d/w Dr. Zakia Salter MD PGY-1 - Internal Medicine Visit type - Emergency Visit Emergency Visit: No - New Patient This patient is new to me today: No - Critical Care Critical Care patient: Yes Total Critical Care Time (in minutes): 40 Critical Care Statement: The care of this patient involved high complexity decision making to prevent further life threatening deterioration of the patient 's condition and/or to evaluate & treat vital organ system(s) failure or risk of failure.
[2017-10-04] MEDS: CHLORHEXIDINE GLUCONATE 0.12% 15ML CUP MM SCH ×2 (14:06→21:42)
--- NOTE | 2017-10-04 14:39 | PN ---
Progress Note, Physician History of Present Illness: Reintubated, for recurrent respiratory failure, post PEG placement, interactive on vent. - Current Medication List Current Medications: Active Medications Acetaminophen (Tylenol -) 650 mg NR Q6H PRN PRN Reason: FEVER OR PAIN Last Admin: 09/16/17 18:27 Dose: 650 mg Amiodarone HCl (Cordarone -) 200 mg NGT DAILY [facility] Last Admin: 10/04/17 11:43 Dose: 200 mg Chlorhexidine Gluconate (Peridex -) 15 ml MM BID [facility] Last Admin: 10/04/17 14:06 Dose: 15 ml Ferrous Sulfate (Feosol -) 325 mg PO DAILY [facility] Last Admin: 10/04/17 11:43 Dose: 325 mg Folic Acid (Folic Acid -) 1 mg PO DAILY [facility] Last Admin: 10/04/17 11:43 Dose: 1 mg Famotidine/Sodium Chloride (Pepcid 20 Mg Premixed Ivpb -) 20 mg in 50 mls @ 100 mls/hr IVPB BID [facility] Last Admin: 10/04/17 09:24 Dose: 100 mls/hr Propofol (Diprivan -) 1,000,000 mcg in 100 mls @ 2.493 mls/hr IVPB TITR [facility]; 5 MCG/KG/MIN PRN Reason: Protocol Last Admin: 10/03/17 14:11 Dose: 35 mcg/kg/min, 17.451 mls/hr Dextrose (D5w -) 1,000 mls @ 83 mls/hr IV .Q12H3M [facility] Metoprolol Tartrate (Lopressor -) 25 mg NGT BID [facility] Last Admin: 10/04/17 11:43 Dose: 25 mg Metoprolol Tartrate (Lopressor Injection -) 5 mg IVPUSH Q6H PRN PRN Reason: HYPERTENSION Last Admin: 10/03/17 16:56 Dose: 5 mg Multivitamins/Minerals (Theragran-M) 1 each PO DAILY [facility] Last Admin: 10/04/17 09:00 Dose: Not Given Mupirocin (Bactroban 2% Cream -) 1 applic TP BID [facility] Last Admin: 10/04/17 09:25 Dose: 1 applic Sevelamer Carbonate (Renvela Powder Packet -) 0.8 gm NGT TIDCM [facility] Last Admin: 10/04/17 12:11 Dose: 0.8 gm Thiamine HCl (Vitamin B1 -) 100 mg PO DAILY [facility] Last Admin: 10/04/17 11:43 Dose: 100 mg - Objective Vital Signs: Vital Signs Temperature 98 F 10/04/17 14:00 Pulse Rate 95 H 10/04/17 14:00 Respiratory Rate 19 10/04/17 14:04 Blood Pressure 164/88 10/04/17 14:00 O2 Sat by Pulse Oximetry (%) 100 10/04/17 12:21 Cardiovascular: Yes: Regular Rate and Rhythm Respiratory: Yes: Intubated, Mechanically Ventilated Gastrointestinal: Yes: Normal Bowel Sounds, Soft, Other Edema: No Labs: CBC, BMP 10/04/17 06:05 10/04/17 06:05 INR, PTT INR 1.14 (0.82-1.09) D 10/03/17 05:22 - ....Imaging Chest X-ray: Report Reviewed (NAD) Problem List - Problems (1) Respiratory failure with hypoxia Code(s): J96.91 - RESPIRATORY FAILURE, UNSPECIFIED WITH HYPOXIA Qualifiers: Chronicity: acute Qualified Code(s): J96.01 - Acute respiratory failure with hypoxia (2) Pneumonia Code(s): J18.9 - PNEUMONIA, UNSPECIFIED ORGANISM Qualifiers: Pneumonia type: aspiration pneumonia (3) Staphylococcus aureus bacteremia Code(s): R78.81 - BACTEREMIA (5) History of alcohol abuse Code(s): Z87.898 - PERSONAL HISTORY OF OTHER SPECIFIED CONDITIONS (6) Acute kidney injury Code(s): N17.9 - ACUTE KIDNEY FAILURE, UNSPECIFIED (7) Acute diastolic heart failure Code(s): I50.31 - ACUTE DIASTOLIC (CONGESTIVE) HEART FAILURE (8) Anemia Code(s): D64.9 - ANEMIA, UNSPECIFIED Qualifiers: Anemia type: unspecified type Qualified Code(s): D64.9 - Anemia, unspecified (9) Discitis of cervicothoracic region Code(s): M46.43 - DISCITIS, UNSPECIFIED, CERVICOTHORACIC REGION (10) Paroxysmal atrial fibrillation Code(s): I48.0 - PAROXYSMAL ATRIAL FIBRILLATION (11) Hypernatremia Code(s): E87.0 - HYPEROSMOLALITY AND HYPERNATREMIA (12) Rectal ulcer Code(s): K62.6 - ULCER OF ANUS AND RECTUM Assessment/Plan 1. Paroxysmal atrial fibrillation [id number] score of 2, currently in sinus rhythm not on Eliquis in view of above noted renal insufficiency 2. Acute hypoxic respiratory failure, post re-intubation, pulmonary infiltrates/ pulmonary edema improved 3. Cavitating pneumonia, MSSA bacteremia, post septic shock no evidence of endocarditis by ALISA criteria 4. Diastolic LV dysfunction with class I-II NYHA congestive heart failure, volume overload, resolved 5. 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 Loculated effusion post chest tube insertion 7. History of alcohol dependence 8. Acute renal insufficiency imroving 9. Hypernatremia 10. Anemia 11. GI Bleed likely from rectal tube/ulcer PLAN: 1. Vent support, post PEG, enteral feeds with free water repletion, planned for trach if patient consents 2. Continue Lopressor 25 bid with IV Lopressor as needed 3. Amiodarone 200 qd 4. Antibiotic recs per ID service
--- NOTE | 2017-10-04 15:25 | PN ---
Physical Exam: SUBJECTIVE: Patient seen and examined OBJECTIVE: Vital Signs Period Temp Pulse Resp BP Sys/Jeff Pulse Ox Last 24 Hr 98 F-99.2 F 77-97 16-34 136-180/87-101 97-100 GENERAL: The patient is awake, alert, and fully oriented, in no acute distress. HEAD: Normal with no signs of trauma. EYES: PERRL, extraocular movements intact, sclera anicteric, conjunctiva clear. No ptosis. ENT: Ears normal, nares patent, oropharynx clear without exudates, moist mucous membranes. NECK: Trachea midline, full range of motion, supple. LUNGS: Breath sounds equal, clear to auscultation bilaterally, no wheezes, no crackles, no accessory muscle use. HEART: Regular rate and rhythm, S1, S2 without murmur, rub or gallop. ABDOMEN: Soft, nontender, nondistended, normoactive bowel sounds, no guarding, no rebound, no hepatosplenomegaly, no masses. EXTREMITIES: 2+ pulses, warm, well-perfused, no edema. NEUROLOGICAL: Cranial nerves II through XII grossly intact. Normal speech, gait not observed. PSYCH: Normal mood, normal affect. SKIN: Warm, dry, normal turgor, no rashes or lesions noted Laboratory Results - last 24 hr 10/01/17 10/03/17 10/03/17 07:40 11:06 21:29 WBC RBC Hgb Hct MCV MCH MCHC RDW Plt Count MPV Neutrophils % Lymphocytes % Monocytes % Eosinophils % Basophils % Sodium Potassium Chloride Carbon Dioxide Anion Gap BUN Creatinine Creat Clearance w eGFR POC Glucometer 99.05789 111.49248 Random Glucose Calcium Total Bilirubin AST ALT Alkaline Phosphatase Total Protein Albumin Random Vancomycin Blood Type O NEGATIVE Antibody Screen Negative Crossmatch See Detail 10/04/17 10/04/17 10/04/17 06:05 06:05 06:05 WBC 13.5 H RBC 2.44 L Hgb 7.1 L Hct 21.2 L MCV 86.9 MCH 29.1 MCHC 33.5 RDW 17.4 H Plt Count 176 MPV 7.2 L Neutrophils % 70.4 Lymphocytes % 8.6 Monocytes % 7.7 Eosinophils % 12.8 H Basophils % 0.5 Sodium 152 H Potassium 3.5 Chloride 119 H Carbon Dioxide 19 L Anion Gap 14 BUN 112 H* Creatinine 4.6 H Creat Clearance w eGFR 12.77 POC Glucometer Random Glucose 134 H D Calcium 7.7 L Total Bilirubin 0.6 D AST 29 ALT < 6 L Alkaline Phosphatase 127 H Total Protein 7.0 Albumin 1.9 L Random Vancomycin 22.887 Blood Type Antibody Screen Crossmatch Active Medications Generic Name Dose Route Start Last Admin Trade Name Freq PRN Reason Stop Dose Admin Acetaminophen 650 mg 09/07/17 05:53 09/16/17 18:27 Tylenol - NR 650 mg Q6H PRN Administration FEVER OR PAIN Amiodarone HCl 200 mg 10/02/17 08:00 10/04/17 11:43 Cordarone - NGT 200 mg DAILY [facility] Administration Chlorhexidine Gluconate 15 ml 09/08/17 12:30 10/04/17 14:06 Peridex - MM 15 ml BID [facility] Administration Ferrous Sulfate 325 mg 09/05/17 12:00 10/04/17 11:43 Feosol - PO 325 mg DAILY [facility] Administration Folic Acid 1 mg 09/02/17 10:00 10/04/17 11:43 Folic Acid - PO 1 mg DAILY [facility] Administration Famotidine/Sodium Chloride 20 mg in 50 mls @ 100 mls/hr 09/28/17 10:00 09:24 Pepcid 20 Mg Premixed Ivpb - IVPB 100 mls/hr BID [facility] Administration Propofol 1,000,000 mcg in 100 mls @ 2.493 mls/hr 10/01/17 12:30 10/03/17 14: 11 Diprivan - IVPB 35 mcg/kg/min TITR [facility] 17.451 mls/hr Protocol Administration 5 MCG/KG/MIN Dextrose 1,000 mls @ 83 mls/hr 10/04/17 08:15 D5w - IV .Q12H3M [facility] Metoprolol Tartrate 25 mg 10/02/17 07:45 10/04/17 11:43 Lopressor - NGT 25 mg BID [facility] Administration Metoprolol Tartrate 5 mg 10/02/17 16:47 10/03/17 16:56 Lopressor Injection - IVPUSH 5 mg Q6H PRN Administration HYPERTENSION Multivitamins/Minerals 1 each 09/02/17 10:00 10/04/17 09:00 Theragran-M PO Not Given DAILY [facility] Mupirocin 1 applic 09/23/17 10:00 11/17/17 09:25 Bactroban 2% Cream - TP 1 applic BID [facility] Administration Sevelamer Carbonate 0.8 gm 10/02/17 12:00 10/04/17 12:11 Renvela Powder Packet - NGT 0.8 gm TIDCM [facility] Administration Thiamine HCl 100 mg 09/02/17 10:00 10/04/17 11:43 Vitamin B1 - PO 100 mg DAILY [facility] Administration ASSESSMENT/PLAN: Problem List - Problems (1) Hyponatremia Code(s): E87.1 - HYPO-OSMOLALITY AND HYPONATREMIA (2) Hypokalemia Code(s): E87.6 - HYPOKALEMIA (3) Respiratory failure with hypoxia Code(s): J96.91 - RESPIRATORY FAILURE, UNSPECIFIED WITH HYPOXIA Qualifiers: Chronicity: acute Qualified Code(s): J96.01 - Acute respiratory failure with hypoxia (4) Pneumonia Code(s): J18.9 - PNEUMONIA, UNSPECIFIED ORGANISM Qualifiers: Pneumonia type: aspiration pneumonia (5) Staphylococcus aureus bacteremia Code(s): R78.81 - BACTEREMIA (7) Endocarditis due to Staphylococcus Code(s): I33.0 - ACUTE AND SUBACUTE INFECTIVE ENDOCARDITIS; B95.8 - UNSP STAPHYLOCOCCUS THE CAUSE OF DISEASES CLASSD ELSWHR (8) History of alcohol abuse Code(s): Z87.898 - PERSONAL HISTORY OF OTHER SPECIFIED CONDITIONS
--- NOTE | 2017-10-04 16:18 | PN ---
Progress Note, Physician History of Present Illness: Intubated Awake on ventilator Afebrile WBC remains elevated 13% eos Day # 28 anti- staphylococcal therapy ( last + BC MSSA 09/06) Renal function improving - Current Medication List Current Medications: Active Medications Acetaminophen (Tylenol -) 650 mg NR Q6H PRN PRN Reason: FEVER OR PAIN Last Admin: 09/16/17 18:27 Dose: 650 mg Amiodarone HCl (Cordarone -) 200 mg NGT DAILY [facility] Last Admin: 10/04/17 11:43 Dose: 200 mg Chlorhexidine Gluconate (Peridex -) 15 ml MM BID [facility] Last Admin: 10/04/17 14:06 Dose: 15 ml Ferrous Sulfate (Feosol -) 325 mg PO DAILY [facility] Last Admin: 10/04/17 11:43 Dose: 325 mg Folic Acid (Folic Acid -) 1 mg PO DAILY [facility] Last Admin: 10/04/17 11:43 Dose: 1 mg Famotidine/Sodium Chloride (Pepcid 20 Mg Premixed Ivpb -) 20 mg in 50 mls @ 100 mls/hr IVPB BID [facility] Last Admin: 10/04/17 09:24 Dose: 100 mls/hr Propofol (Diprivan -) 1,000,000 mcg in 100 mls @ 2.493 mls/hr IVPB TITR [facility]; 5 MCG/KG/MIN PRN Reason: Protocol Last Admin: 10/03/17 14:11 Dose: 35 mcg/kg/min, 17.451 mls/hr Dextrose (D5w -) 1,000 mls @ 83 mls/hr IV .Q12H3M [facility] Metoprolol Tartrate (Lopressor -) 25 mg NGT BID [facility] Last Admin: 10/04/17 11:43 Dose: 25 mg Metoprolol Tartrate (Lopressor Injection -) 5 mg IVPUSH Q6H PRN PRN Reason: HYPERTENSION Last Admin: 10/03/17 16:56 Dose: 5 mg Multivitamins/Minerals (Theragran-M) 1 each PO DAILY [facility] Last Admin: 10/04/17 09:00 Dose: Not Given Mupirocin (Bactroban 2% Cream -) 1 applic TP BID [facility] Last Admin: 10/04/17 09:25 Dose: 1 applic Sevelamer Carbonate (Renvela Powder Packet -) 0.8 gm NGT TIDCM [facility] Last Admin: 10/04/17 12:11 Dose: 0.8 gm Thiamine HCl (Vitamin B1 -) 100 mg PO DAILY [facility] Last Admin: 10/04/17 11:43 Dose: 100 mg - Objective Vital Signs: Vital Signs Temperature 98 F 10/04/17 14:00 Pulse Rate 90 10/04/17 16:00 Respiratory Rate 24 10/04/17 16:00 Blood Pressure 157/72 10/04/17 16:00 O2 Sat by Pulse Oximetry (%) 100 10/04/17 12:21 Constitutional: Yes: No Distress, Obese HENT: Yes: Other (intubated) Cardiovascular: Yes: Regular Rate and Rhythm, S1, S2 Respiratory: Yes: Mechanically Ventilated Gastrointestinal: Yes: Normal Bowel Sounds, Soft. No: Tenderness Edema: Yes Integumentary: Yes: Other (fine exanthem thighs, upper chest) Labs: CBC, BMP 10/04/17 06:05 10/04/17 06:05 INR, PTT INR 1.14 (0.82-1.09) D 10/03/17 05:22 Assessment/Plan MSSA bacteremia, likely skin source Day #28 antibiotics Vertebral osteo T9T10 Resp failure Possible aspiration pneumonia Hx ETOH abuse Azotemia ? AIN secondary to B-lactam Continue vancomycin for now, adjusted for renal failure No dose today. Check trough am Will need terminologist (6-8w) anti- staph treatment
--- NOTE | 2017-10-04 16:34 | PN ---
Progress Note, Physician History of Present Illness: Pt seen and examined at bedside. He remains in the ICU. He remain on vent. - Current Medication List Current Medications: Active Medications Acetaminophen (Tylenol -) 650 mg NR Q6H PRN PRN Reason: FEVER OR PAIN Last Admin: 09/16/17 18:27 Dose: 650 mg Amiodarone HCl (Cordarone -) 200 mg NGT DAILY [facility] Last Admin: 10/04/17 11:43 Dose: 200 mg Chlorhexidine Gluconate (Peridex -) 15 ml MM BID [facility] Last Admin: 10/04/17 14:06 Dose: 15 ml Ferrous Sulfate (Feosol -) 325 mg PO DAILY [facility] Last Admin: 10/04/17 11:43 Dose: 325 mg Folic Acid (Folic Acid -) 1 mg PO DAILY [facility] Last Admin: 10/04/17 11:43 Dose: 1 mg Famotidine/Sodium Chloride (Pepcid 20 Mg Premixed Ivpb -) 20 mg in 50 mls @ 100 mls/hr IVPB BID [facility] Last Admin: 10/04/17 09:24 Dose: 100 mls/hr Propofol (Diprivan -) 1,000,000 mcg in 100 mls @ 2.493 mls/hr IVPB [facility]; 5 MCG/KG/MIN PRN Reason: Protocol Last Admin: 10/03/17 14:11 Dose: 35 mcg/kg/min, 17.451 mls/hr Dextrose (D5w -) 1,000 mls @ 83 mls/hr IV .Q12H3M [facility] Metoprolol Tartrate (Lopressor -) 25 mg NGT BID [facility] Last Admin: 10/04/17 11:43 Dose: 25 mg Metoprolol Tartrate (Lopressor Injection -) 5 mg IVPUSH Q6H PRN PRN Reason: HYPERTENSION Last Admin: 10/03/17 16:56 Dose: 5 mg Multivitamins/Minerals (Theragran-M) 1 each PO DAILY [facility] Last Admin: 10/04/17 09:00 Dose: Not Given Mupirocin (Bactroban 2% Cream -) 1 applic TP BID [facility] Last Admin: 10/04/17 09:25 Dose: 1 applic Sevelamer Carbonate (Renvela Powder Packet -) 0.8 gm NGT TIDCM [facility] Last Admin: 10/04/17 12:11 Dose: 0.8 gm Thiamine HCl (Vitamin B1 -) 100 mg PO DAILY [facility] Last Admin: 10/04/17 11:43 Dose: 100 mg - Objective Vital Signs: Vital Signs Temperature 98 F 10/04/17 14:00 Pulse Rate 90 10/04/17 16:00 Respiratory Rate 24 10/04/17 16:00 Blood Pressure 157/72 10/04/17 16:00 O2 Sat by Pulse Oximetry (%) 100 10/04/17 12:21 Constitutional: Yes: Calm Eyes: Yes: Conjunctiva Clear Cardiovascular: Yes: S1, S2 Respiratory: Yes: Mechanically Ventilated Gastrointestinal: Yes: Soft, Other (peg) Genitourinary: Yes: Freeman Present Musculoskeletal: Yes: Muscle Weakness Edema: Yes Wound/Incision: Yes: Dressing Dry and Intact Neurological: Yes: Lethargy Labs: CBC, BMP 10/04/17 06:05 10/04/17 06:05 INR, PTT INR 1.14 (0.82-1.09) D 10/03/17 05:22 - ....Imaging Chest X-ray: Report Reviewed Problem List - Problems (1) Abuse, drug or alcohol Code(s): F19.10 - OTHER PSYCHOACTIVE SUBSTANCE ABUSE, UNCOMPLICATED (2) Withdrawal symptoms, alcohol Code(s): F10.239 - ALCOHOL DEPENDENCE WITH WITHDRAWAL, UNSPECIFIED Qualifiers: Complication of substance-induced condition: uncomplicated Qualified Code(s ): F10.230 - Alcohol dependence with withdrawal, uncomplicated (3) Hyponatremia Code(s): E87.1 - HYPO-OSMOLALITY AND HYPONATREMIA (4) Respiratory failure with hypoxia Code(s): J96.91 - RESPIRATORY FAILURE, UNSPECIFIED WITH HYPOXIA Qualifiers: Chronicity: acute Qualified Code(s): J96.01 - Acute respiratory failure with hypoxia (5) Staphylococcus aureus bacteremia Code(s): R78.81 - BACTEREMIA (6) Acute kidney injury Code(s): N17.9 - ACUTE KIDNEY FAILURE, UNSPECIFIED (7) Anemia Code(s): D64.9 - ANEMIA, UNSPECIFIED Qualifiers: Anemia type: unspecified type Qualified Code(s): D64.9 - Anemia, unspecified Assessment/Plan Current Medications Generic Name Dose Route Start Last Admin Trade Name Freq PRN Reason Stop Dose Admin Acetaminophen 650 mg 09/07/17 05:53 09/16/17 18:27 Tylenol - NR 650 mg Q6H PRN Administration FEVER OR PAIN Amiodarone HCl 200 mg 10/02/17 08:00 10/04/17 11:43 Cordarone - NGT 200 mg DAILY [facility] Administration Chlorhexidine Gluconate 15 ml 09/08/17 12:30 10/04/17 14:06 Peridex - MM 15 ml BID [facility] Administration Ferrous Sulfate 325 mg 09/05/17 12:00 10/04/17 11:43 Feosol - PO 325 mg DAILY [facility] Administration Folic Acid 1 mg 09/02/17 10:00 10/04/17 11:43 Folic Acid - PO 1 mg DAILY [facility] Administration Famotidine/Sodium Chloride 20 mg in 50 mls @ 100 mls/hr 09/28/17 10:00 09:24 Pepcid 20 Mg Premixed Ivpb - IVPB 100 mls/hr BID [facility] Administration Propofol 1,000,000 mcg in 100 mls @ 2.493 mls/hr 10/01/17 12:30 10/03/17 14: 11 Diprivan - IVPB 35 mcg/kg/min T[facility] 17.451 mls/hr Protocol Administration 5 MCG/KG/MIN Dextrose 1,000 mls @ 83 mls/hr 10/04/17 08:15 D5w - IV .Q12H3M [facility] Metoprolol Tartrate 25 mg 10/02/17 07:45 10/04/17 11:43 Lopressor - NGT 25 mg BID [facility] Administration Metoprolol Tartrate 5 mg 10/02/17 16:47 10/03/17 16:56 Lopressor Injection - IVPUSH 5 mg Q6H PRN Administration HYPERTENSION Multivitamins/Minerals 1 each 09/02/17 10:00 10/04/17 09:00 Theragran-M PO Not Given DAILY [facility] Mupirocin 1 applic 09/23/17 10:00 10/04/17 09:25 Bactroban 2% Cream - TP 1 applic BID [facility] Administration Sevelamer Carbonate 0.8 gm 10/02/17 12:00 10/04/17 12:11 Renvela Powder Packet - NGT 0.8 gm TIDCM [facility] Administration Thiamine HCl 100 mg 09/02/17 10:00 10/04/17 11:43 Vitamin B1 - PO 100 mg DAILY [facility] Administration Impression 1. ALEXANDRA 2. fluid overload 3. hypoalbuminemia 4. respiratory failure requiring intubation 5. anemia 6. etoh abuse 7. fevers 8. hypokalemia 9. pleural effusion 10. hypernatremia 11. GI bleed 12. rash Plan - renal continues to improve - monitor urine output - pt was just started on feeds. Cont fluids until he reaches goals with tube feeds - recommend nepro for peg feeds - based on a sodium od 152 and weight of 183 pounds, pt has a total free water deficit of about 3.56 liters. In order to get sodium down to 142 in a 24 hours time period, he would need about 2.9 liters of free water. He is getting 20 cc water flushes with the feeds (480 cc in 24 hrs along with d5w at 83 cc). Will increase free water if he tolerated feeds. - can start to decrease d5w - monitor sodium - monitor renal function - cont vent support - he is making urine - awaiting renal recovery - daughter's number: Emelina [phone]. - ALEXANDRA is multifactorial - monitor pulse ox - keep pt in ICU - will follow Dr Peres
[2017-10-04] MEDS: DEXTROSE 5%-WATER - 1,000 ML IV SCH (19:00)
[2017-10-04] MEDS: METOPROLOL TARTRATE 5 MG/5 ML VIAL IVPUSH PRN (19:30)
--- NOTE | 2017-10-04 21:51 | PN ---
Physical Exam: SUBJECTIVE: Patient seen and examined, off sedation, mechanically ventilated. FiO2 40%; PEEP 5. Patient with mental capacity to make medical decisions. He was explained tracheostomy and was asked for consent. He is still deciding is that is something he would want. Denies fever, chills, chest pain, abdominal pain. OBJECTIVE: Vital Signs Period Temp Pulse Resp BP Sys/Jeff Pulse Ox Last 24 Hr 98 F-99.2 F 77-97 16-34 136-180/72-100 98-100 GENERAL: The patient is awake, alert, intubated. LUNGS:b/l crackles ; scattered rhonchi HEART: Regular rate and rhythm, S1, S2 without murmur, rub or gallop. ABDOMEN: Soft, nontender, nondistended, normoactive bowel sounds, no guarding, no rebound, no hepatosplenomegaly, no masses. EXTREMITIES: 2+ pulses, warm, well-perfused, edema. NEUROLOGICAL: awake ; respond to commands and questioning; can point to chart at what he wants PSYCH: Normal mood, normal affect. SKIN: maculopopular rash on left anterior chest Laboratory Results - last 24 hr 10/01/17 10/03/17 10/04/17 07:40 21:29 06:05 WBC RBC Hgb Hct MCV MCH MCHC RDW Plt Count MPV Neutrophils % Lymphocytes % Monocytes % Eosinophils % Basophils % Sodium Potassium Chloride Carbon Dioxide Anion Gap BUN Creatinine Creat Clearance w eGFR POC Glucometer [phone] Random Glucose Calcium Total Bilirubin AST ALT Alkaline Phosphatase Total Protein Albumin Random Vancomycin 22.887 Blood Type O NEGATIVE Antibody Screen Negative Crossmatch See Detail 10/04/17 10/04/17 06:05 06:05 WBC 13.5 H RBC 2.44 L Hgb 7.1 L Hct 21.2 L MCV 86.9 MCH 29.1 MCHC 33.5 RDW 17.4 H Plt Count 176 MPV 7.2 L Neutrophils % 70.4 Lymphocytes % 8.6 Monocytes % 7.7 Eosinophils % 12.8 H Basophils % 0.5 Sodium 152 H Potassium 3.5 Chloride 119 H Carbon Dioxide 19 L Anion Gap 14 BUN 112 H* Creatinine 4.6 H Creat Clearance w eGFR 12.77 POC Glucometer Random Glucose 134 H D Calcium 7.7 L Total Bilirubin 0.6 D AST 29 ALT < 6 L Alkaline Phosphatase 127 H Total Protein 7.0 Albumin 1.9 L Random Vancomycin Blood Type Antibody Screen Crossmatch Active Medications Generic Name Dose Route Start Last Admin Trade Name Freq PRN Reason Stop Dose Admin Acetaminophen 650 mg 09/07/17 05:53 09/16/17 18:27 Tylenol - NR 650 mg Q6H PRN Administration FEVER OR PAIN Amiodarone HCl 200 mg 10/04/17 16:45 Cordarone - PEG DAILY [facility] Chlorhexidine Gluconate 15 ml 09/08/17 12:30 10/04/17 14:06 Peridex - MM 15 ml BID [facility] Administration Ferrous Sulfate 325 mg 09/05/17 12:00 10/04/17 11:43 Feosol - PO 325 mg DAILY [facility] Administration Folic Acid 1 mg 09/02/17 10:00 10/04/17 11:43 Folic Acid - PO 1 mg DAILY [facility] Administration Famotidine/Sodium Chloride 20 mg in 50 mls @ 100 mls/hr 09/28/17 10:00 09:24 Pepcid 20 Mg Premixed Ivpb - IVPB 100 mls/hr BID [facility] Administration Propofol 1,000,000 mcg in 100 mls @ 2.493 mls/hr 10/01/17 12:30 10/04/17 09: 00 Diprivan - IVPB 20 mcg/kg/min TITR [facility] 9.972 mls/hr Protocol Administration 5 MCG/KG/MIN Dextrose 1,000 mls @ 83 mls/hr 10/04/17 17:30 D5w - IV ASDIR [facility] Metoprolol Tartrate 25 mg 10/02/17 07:45 10/04/17 11:43 Lopressor - NGT 25 mg BID [facility] Administration Metoprolol Tartrate 5 mg 10/02/17 16:47 10/03/17 16:56 Lopressor Injection - IVPUSH 5 mg Q6H PRN Administration HYPERTENSION Multivitamins/Minerals 1 each 09/02/17 10:00 10/04/17 09:00 Theragran-M PO Not Given DAILY [facility] Mupirocin 1 applic 09/23/17 10:00 10/04/17 09:25 Bactroban 2% Cream - TP 1 applic BID [facility] Administration Sevelamer Carbonate 0.8 gm 10/02/17 12:00 10/04/17 16:41 Renvela Powder Packet - NGT 0.8 gm TIDCM [facility] Administration Thiamine HCl 100 mg 09/02/17 10:00 10/04/17 11:43 Vitamin B1 - PO 100 mg DAILY [facility] Administration ASSESSMENT/PLAN: 67 year old male with a history alcohol abuse admitted for sepsis secondary to MSSA bacteremia. Due to loculated effusions, has repeated intubations. Acute Hypoxic Respiratory Failure Pneumonia MSSA Bacteremia Loculated Pleural Effusions LV Diastolic Dysfunction Paroxysmal Atrial Fibrillation Acute Kidney Injury GI Bleed likely from rectal tube/ulcer Acute Blood Loss Anemia AFib hypernatremia -educated patient about tracheostomy; he is currently undecided -cont IV antibiotic ; renal dose vanco; cont vanco levels -cont amiodarone for atrial fib -lopresser for rate control -hypernatremia ; free water deficit calculated; correct with increased free water flushes -samra improving slightly, cont to monitor -anemia originally sec to lower GI bleed from rectal tube; currently no obvious signs of bleed; may be secondary to renal failure -transfuse if hemoglobin<7.0 -peg tube placement -GI/dvt prophylaxis Problem List - Problems (1) Hyponatremia Code(s): E87.1 - HYPO-OSMOLALITY AND HYPONATREMIA (2) Hypokalemia Code(s): E87.6 - HYPOKALEMIA (3) Respiratory failure with hypoxia Code(s): J96.91 - RESPIRATORY FAILURE, UNSPECIFIED WITH HYPOXIA Qualifiers: Chronicity: acute Qualified Code(s): J96.01 - Acute respiratory failure with hypoxia (4) Pneumonia Code(s): J18.9 - PNEUMONIA, UNSPECIFIED ORGANISM Qualifiers: Pneumonia type: aspiration pneumonia (5) Staphylococcus aureus bacteremia Code(s): R78.81 - BACTEREMIA (7) History of alcohol abuse Code(s): Z87.898 - PERSONAL HISTORY OF OTHER SPECIFIED CONDITIONS (8) Acute diastolic heart failure Code(s): I50.31 - ACUTE DIASTOLIC (CONGESTIVE) HEART FAILURE (9) Acute kidney injury Code(s): N17.9 - ACUTE KIDNEY FAILURE, UNSPECIFIED (10) Hypernatremia Code(s): E87.0 - HYPEROSMOLALITY AND HYPERNATREMIA (11) Paroxysmal atrial fibrillation Code(s): I48.0 - PAROXYSMAL ATRIAL FIBRILLATION Visit type - Emergency Visit Emergency Visit: Yes ED Registration Date: 08/31/17 Care time: The patient presented to the Emergency Department on the above date and was hospitalized for further evaluation of their emergent condition. - New Patient This patient is new to me today: No - Critical Care Critical Care patient: Yes Total Critical Care Time (in minutes): 40 Critical Care Statement: The care of this patient involved high complexity decision making to prevent further life threatening deterioration of the patient 's condition and/or to evaluate & treat vital organ system(s) failure or risk of failure.
[2017-10-04] MEDS: HEPARIN NA (PORCINE) 5,000 UNITS/ML 1ML VIAL SQ SCH (23:11)
[2017-10-05] MEDS: METOPROLOL TARTRATE 5 MG/5 ML VIAL IVPUSH PRN ×2 (02:00→22:00)
[2017-10-05 06:32] LABS: ALK PHOS 130 U/L (45-117); ANION GAP 14 (8-16); BILIRUBIN,TOTAL 0.6 mg/dL (0.2-1.0); CALCIUM 8.2 mg/dL (8.5-10.1); CO2 18 mmol/L (21-32); CREATININE 4.3 mg/dL (0.7-1.3); GLUCOSE,RANDOM 120 mg/dL (74-106); MAGNESIUM 1.7 mg/dL (1.8-2.4); PHOSPHOROUS 5.1 mg/dL (2.5-4.9); SGOT/AST 26 U/L (15-37); SGPT/ALT 7 U/L (12-78); TOT PROT 7.2 g/dl (6.4-8.2)
--- NOTE | 2017-10-05 07:47 | PN ---
Progress Note (short form) - Note Progress Note: intubated Current Medications Generic Name Dose Route Start Last Admin Trade Name Mohitq PRN Reason Stop Dose Admin Acetaminophen 650 mg 09/07/17 05:53 09/16/17 18:27 Tylenol - NR 650 mg Q6H PRN Administration FEVER OR PAIN Amiodarone HCl 200 mg 10/04/17 16:45 Cordarone - PEG DAILY [facility] Chlorhexidine Gluconate 15 ml 09/08/17 12:30 10/04/17 21:42 Peridex - MM 15 ml BID [facility] Administration Ferrous Sulfate 325 mg 09/05/17 12:00 10/04/17 11:43 Feosol - PO 325 mg DAILY [facility] Administration Folic Acid 1 mg 09/02/17 10:00 10/04/17 11:43 Folic Acid - PO 1 mg DAILY [facility] Administration Heparin Sodium (Porcine) 5,000 unit 10/04/17 22:00 10/04/17 23:11 Heparin - SQ 5,000 unit BID [facility] Administration Famotidine/Sodium Chloride 20 mg in 50 mls @ 100 mls/hr 09/28/17 10:00 21:42 Pepcid 20 Mg Premixed Ivpb - IVPB 100 mls/hr BID [facility] Administration Propofol 1,000,000 mcg in 100 mls @ 2.493 mls/hr 10/01/17 12:30 10/05/17 06: 27 Diprivan - IVPB 50 mcg/kg/min TITR [facility] 24.93 mls/hr Protocol Titration 5 MCG/KG/MIN Dextrose 1,000 mls @ 83 mls/hr 10/04/17 17:30 10/04/17 19:00 D5w - IV 83 mls/hr [facility] Administration Metoprolol Tartrate 25 mg 10/02/17 07:45 10/04/17 21:42 Lopressor - NGT 25 mg BID [facility] Administration Metoprolol Tartrate 5 mg 10/02/17 16:47 10/05/17 02:00 Lopressor Injection - IVPUSH 5 mg Q6H PRN Administration HYPERTENSION Multivitamins/Minerals 1 each 09/02/17 10:00 10/04/17 09:00 Theragran-M PO Not Given DAILY [facility] Mupirocin 1 applic 09/23/17 10:00 10/04/17 21:42 Bactroban 2% Cream - TP 1 applic BID [facility] Administration Sevelamer Carbonate 0.8 gm 10/02/17 12:00 10/04/17 16:41 Renvela Powder Packet - NGT 0.8 gm TIDCM [facility] Administration Thiamine HCl 100 mg 09/02/17 10:00 10/04/17 11:43 Vitamin B1 - PO 100 mg DAILY [facility] Administration Last Vital Signs Temp Pulse Resp BP Pulse Ox 98.7 F 84 20 161/94 100 10/05/17 06:00 10/05/17 06:00 10/05/17 07:22 10/05/17 06:00 10/04/17 20:46 Intake & Output 10/02/17 10/03/17 10/04/17 10/05/17 23:59 23:59 23:59 23:59 Intake Total 3333.4 1448.0 2500.8 885 Output Total 2100 2120 1900 900 Balance 1233.4 -672.0 600.8 -15 Weight 185 lb 186 lb 1.6 oz 183 lb 181 lb 14.102 oz General alert, follows simple commands CV S1 S2 RRR no murmur/rub/gallop Lungs course breath sounds diffusely abdomen soft NT/ND +LUQ PEG no active drainage. no surrounding erythema Extremities trace pitting edema all 4 extremities CBCD WBC 13.5 K/mm3 (4.0-10.0) H 10/04/17 06:05 RBC 2.44 M/mm3 (4.00-5.60) L 10/04/17 06:05 Hgb 7.1 GM/dL (11.7-16.9) L 10/04/17 06:05 Hct 21.2 % (35.4-49) L 10/04/17 06:05 MCV 86.9 fl (80-96) 10/04/17 06:05 MCHC 33.5 g/dl (32.0-35.9) 10/04/17 06:05 RDW 17.4 % (11.9-15.9) H 10/04/17 06:05 Plt Count 176 K/MM3 (134-434) 10/04/17 06:05 MPV 7.2 fl (7.5-11.1) L 10/04/17 06:05 CMP Sodium 148 mmol/L (136-145) H 10/05/17 05:45 Potassium 3.4 mmol/L (3.5-5.1) L 10/05/17 05:45 Chloride 116 mmol/L (98-107) H 10/05/17 05:45 Carbon Dioxide 18 mmol/L (21-32) L 10/05/17 05:45 Anion Gap 14 (8-16) 10/05/17 05:45 BUN 97 mg/dL (7-18) H 10/05/17 05:45 Creatinine 4.3 mg/dL (0.7-1.3) H 10/05/17 05:45 Creat Clearance w eGFR 13.80 (>60) 10/05/17 05:45 Calcium 8.2 mg/dL (8.5-10.1) L 10/05/17 05:45 Total Bilirubin 0.6 mg/dL (0.2-1.0) 10/05/17 05:45 AST 26 U/L (15-37) 10/05/17 05:45 ALT 7 U/L (12-78) L 10/05/17 05:45 Alkaline Phosphatase 130 U/L (45-117) H 10/05/17 05:45 Total Protein 7.2 g/dl (6.4-8.2) 10/05/17 05:45 Albumin 2.0 g/dl (3.4-5.0) L 10/05/17 05:45 ASSESSMENT AND PLAN: 66 yo M with H alcohol abuse, HTN who presented to the ER after being found on the floor. 1. Acute hypoxic respiratory failure- likely due to cavitary PNA. s/p extubated 09/19 and re-intubated and extubated 09/27. re-intubated 10/01. due to tacypnea and hypoxia. full vent support. will likely require trach at this time, crit care on board. 2. Sepsis secondary to cavitary healthcare-associated pneumonia, MSSA bacteremia and vertebral OM- with complicated loculated effusion. s/p chest tube removed. on vanco by level. will need 6-8w abx for OM. CT surgery and ID on board 3. New onset afib-rate controlled. on amio po. anticoagulation on hold due to medical problems. should ideally be on coumadin once improved. 4. Acute kidney injury with hyperphosphatemia- slight improvement in uremia. no indication for emergent HD, may require if does not improve. Nephrology on board. 5. Anemia- s/p 3 units PRBC this admission. acute drop possible due to trauma of NGT placement. bleeding now stopped. nasal packing removed. on iron supplementations. 6. Hypernatremia- dehydration. improved. free water deficit 2.8L. on D5w 83cc. will increase free water flushes to 40cc/H. repeat in evening 7. Hypokalemia-Kcl peg 8. Hypomagnesemia- Mg 1g 9. Hepatic transaminitis- stable. US shows hepatosplenomegaly and fatty infiltration of liver 10. Thrombocytopenia- Secondary to alcohol, splenomegaly. now stable 11. HTN- initially hypotensive. now off pressors. cont medications 12. Continue alcohol dependence- Continue thiamine, folic acid, multivitamin 13. Chronic right subdural hematoma 14. DVT prophylaxis- heparin sq 15. Dysphagia-likely due to weakness. s/p PEG placement 10/03. tolerating feeds. GI on board 16. MICU monitoring. poor overall prognosis. will need trach placement. HCP ( daughter) has been unreachable. will see if pt is able to make his own decisions as he is more alert The care of this patient involved high complexity decision making to prevent further life threatening deterioration of the patient's condition and/or to evaluate & treat vital organ system(s) failure or risk of failure. 40 mins Visit type - Emergency Visit Emergency Visit: Yes ED Registration Date: 08/31/17 Care time: The patient presented to the Emergency Department on the above date and was hospitalized for further evaluation of their emergent condition. - New Patient This patient is new to me today: No - Critical Care Critical Care patient: Yes Total Critical Care Time (in minutes): 42 Critical Care Statement: The care of this patient involved high complexity decision making to prevent further life threatening deterioration of the patient 's condition and/or to evaluate & treat vital organ system(s) failure or risk of failure. - Discharge Referral Referred to [facility] No
[2017-10-05] MEDS ORDERED: MAGNESIUM SULF 50% (8.12 MEQ/2 ML-1 GM VIAL) IVPB ONE (08:45)
--- NOTE | 2017-10-05 08:48 | PN ---
Progress Note (short form) - Note Progress Note: intubated NAD Vital Signs Period Temp Pulse Resp BP Sys/Jeff Pulse Ox Last 24 Hr 98 F-98.7 F 78-97 18-34 143-180/72-100 98-100 cor-rrr lungs clear, decreased bs at bases abd soft,nt ext no edema CBC, BMP 10/04/17 06:05 10/05/17 05:45 vanco trough 18 a/p MSSA sepsis-day #29, now on vanco by levels ?interstitial nephritis, plan 6 to 8 weeks of treatment T9/10 discitis respiratory failure ARF anemia- gi bleed ALISA negative vancomycin trough in am
[2017-10-05] MEDS ORDERED: POTASSIUM CHLORIDE ORAL LIQUID 20 MEQ/15 ML PEG ONE (09:00)
[2017-10-05] MEDS ORDERED: PT OWN MED DRAWER 7, Y5N ONE ×2 (09:28→16:40)
[2017-10-05] MEDS: HEPARIN NA (PORCINE) 5,000 UNITS/ML 1ML VIAL SQ SCH ×2 (09:30→21:30)
[2017-10-05] MEDS: FOLIC ACID 1 MG TABLET (FP) PO SCH (09:30)
[2017-10-05] MEDS: AMIODARONE HCL 200 MG TABLET (FP) PEG SCH (09:31)
[2017-10-05] MEDS: METOPROLOL TARTRATE 25 MG TABLET (FP) PEG SCH ×2 (09:31→21:30)
[2017-10-05] MEDS: MULTIVITAMINS THER W-MINERALS COMBO TABLET (FP) PO SCH (09:31)
[2017-10-05] MEDS: FAMOTIDINE 20 MG/50 ML IVPB 20 MG/50 ML MG IVPB SCH ×2 (09:31→21:30)
[2017-10-05] MEDS: SEVELAMER CARBONATE 0.8 GM POWDER PACKET NGT SCH (09:32)
--- NOTE | 2017-10-05 09:32 | PN ---
Progress Note (short form) - Note Progress Note: Pulm/CCM SUBJECTIVE: Patient seen and examined in the ICU. -no acute events overnight -agreed to trach today -placed on high PS of 20 for comfort -sodium downtrending with free water -weaning off propofol Vital Signs Temp 98.7 F 10/05/17 06:00 Pulse 84 10/05/17 06:00 Resp 20 10/05/17 07:22 BP 161/94 10/05/17 06:00 Pulse Ox 100 10/04/17 20:46 Intake & Output 10/04/17 10/04/17 10/05/17 11:59 23:59 11:59 Intake Total 1108.8 1392 885 Output Total 500 1400 900 Balance 608.8 -8 -15 Weight 83.007 kg 82.5 kg Intake: IV 1108.8 992 535 D5-1/2Ns - 1,000 ml @ 75 900 150 mls/hr IV ASDIR [facility] Rx#: [id number] D5w - 1,000 ml @ 83 mls/ 747 332 hr IV ASDIR [facility] Rx#: [id number] DIPRIVAN - 1,000,000 mcg 208.8 95 203 In 100 ml @ 5 MCG/KG/MIN 2.493 mls/hr IVPB TITR [facility] Rx#:[id number] IVPB 150 Tube Feeding 150 Packed Cells 350 Tube Irrigant 100 Output: Urine 500 1400 900 Freeman 500 1400 900 Other: Voiding Method Indwelling Catheter Indwelling Catheter Bowel Movement No No Weight Measurement Method [facility] Active Medications Acetaminophen (Tylenol -) 650 mg NR Q6H PRN PRN Reason: FEVER OR PAIN Last Admin: 09/16/17 18:27 Dose: 650 mg Amiodarone HCl (Cordarone -) 200 mg PEG DAILY [facility] Chlorhexidine Gluconate (Peridex -) 15 ml MM BID [facility] Last Admin: 10/04/17 21:42 Dose: 15 ml Ferrous Sulfate (Feosol -) 325 mg PO DAILY [facility] Last Admin: 10/04/17 11:43 Dose: 325 mg Folic Acid (Folic Acid -) 1 mg PO DAILY [facility] Last Admin: 10/04/17 11:43 Dose: 1 mg Heparin Sodium (Porcine) (Heparin -) 5,000 unit SQ BID [facility] Last Admin: 10/04/17 23:11 Dose: 5,000 unit Famotidine/Sodium Chloride (Pepcid 20 Mg Premixed Ivpb -) 20 mg in 50 mls @ 100 mls/hr IVPB BID [facility] Last Admin: 10/04/17 21:42 Dose: 100 mls/hr Propofol (Diprivan -) 1,000,000 mcg in 100 mls @ 2.493 mls/hr IVPB TITR [facility]; 5 MCG/KG/MIN PRN Reason: Protocol Last Titration: 10/05/17 06:27 Dose: 50 mcg/kg/min, 24.93 mls/hr Dextrose (D5w -) 1,000 mls @ 83 mls/hr IV [facility]IR [facility] Last Admin: 10/04/17 19:00 Dose: 83 mls/hr Metoprolol Tartrate (Lopressor Injection -) 5 mg IVPUSH Q6H PRN PRN Reason: HYPERTENSION Last Admin: 10/05/17 02:00 Dose: 5 mg Metoprolol Tartrate (Lopressor -) 25 mg PEG BID [facility] Multivitamins/Minerals (Theragran-M) 1 each PO DAILY [facility] Last Admin: 10/04/17 09:00 Dose: Not Given Mupirocin (Bactroban 2% Cream -) 1 applic TP BID [facility] Last Admin: 10/04/17 21:42 Dose: 1 applic Sevelamer Carbonate (Renvela Powder Packet -) 0.8 gm PEG TIDCM [facility] Thiamine HCl (Vitamin B1 -) 100 mg PO DAILY [facility] Last Admin: 10/04/17 11:43 Dose: 100 mg GENERAL: Intubated and awake. HEAD: Normal with no signs of trauma. EYES: (-) Pallor ENT: Ears normal, nares patent, moist mucous membranes. NECK: Trachea midline, LUNGS: Bilateral coarse rhonchi, No wheeze, thick yellow secretions HEART: s1s2 chris.. ABDOMEN:PEG CDI EXTREMITIES: edema++ SKIN: Warm, dry, CBCD WBC 13.5 K/mm3 (4.0-10.0) H 10/04/17 06:05 RBC 2.44 M/mm3 (4.00-5.60) L 10/04/17 06:05 Hgb 7.1 GM/dL (11.7-16.9) L 10/04/17 06:05 Hct 21.2 % (35.4-49) L 10/04/17 06:05 MCV 86.9 fl (80-96) 10/04/17 06:05 MCHC 33.5 g/dl (32.0-35.9) 10/04/17 06:05 RDW 17.4 % (11.9-15.9) H 10/04/17 06:05 Plt Count 176 K/MM3 (134-434) 10/04/17 06:05 MPV 7.2 fl (7.5-11.1) L 10/04/17 06:05 CMP Sodium 148 mmol/L (136-145) H 10/05/17 05:45 Potassium 3.4 mmol/L (3.5-5.1) L 10/05/17 05:45 Chloride 116 mmol/L (98-107) H 10/05/17 05:45 Carbon Dioxide 18 mmol/L (21-32) L 10/05/17 05:45 Anion Gap 14 (8-16) 10/05/17 05:45 BUN 97 mg/dL (7-18) H 10/05/17 05:45 Creatinine 4.3 mg/dL (0.7-1.3) H 10/05/17 05:45 Creat Clearance w eGFR 13.80 (>60) 10/05/17 05:45 Calcium 8.2 mg/dL (8.5-10.1) L 10/05/17 05:45 Total Bilirubin 0.6 mg/dL (0.2-1.0) 10/05/17 05:45 AST 26 U/L (15-37) 10/05/17 05:45 ALT 7 U/L (12-78) L 10/05/17 05:45 Alkaline Phosphatase 130 U/L (45-117) H 10/05/17 05:45 Total Protein 7.2 g/dl (6.4-8.2) 10/05/17 05:45 Albumin 2.0 g/dl (3.4-5.0) L 10/05/17 05:45 ASSESSMENT/PLAN: Acute Hypoxic Respiratory Failure Pneumonia MSSA Bacteremia Loculated Pleural Effusions LV Diastolic Dysfunction Paroxysmal Atrial Fibrillation Acute Kidney Injury GI Bleed likely from rectal tube/ulcer Acute Blood Loss Anemia AFib Ammendable for trach, agreed to procedure this am, will try to book for early next week ABX per ID VTE prophylaxis IVF PPI Rate control with metoprolol VTE prophylaxis S/p PEG --enteral feeds Shun Silav ACNP 0466 35min CCT
[2017-10-05] MEDS: FERROUS SO4 325 MG TABLET (FP) PO SCH (09:34)
[2017-10-05] MEDS: THIAMINE HCL 100 MG TABLET (FP) PO SCH (09:36)
[2017-10-05] MEDS: SEVELAMER CARBONATE 0.8 GM POWDER PACKET PEG SCH ×2 (12:36→17:05)
[2017-10-05] MEDS: CHLORHEXIDINE GLUCONATE 0.12% 15ML CUP MM SCH ×2 (13:00→21:30)
[2017-10-05] MEDS: MUPIROCIN CA 2% TOPICAL CREAM 15 GM TUBE TP SCH ×2 (15:01→21:31)
[2017-10-05] MEDS: PROPOFOL 1,000,000 MCG/100 ML VIAL IVPB SCH (15:01)
[2017-10-05 16:51] LABS: MCH 28.6 pg (25.7-33.7); MCHC 32.7 g/dl (32.0-35.9); MEAN CELL VOLUME 87.4 fl (80-96); MEAN PLT VOLUME 7.1 fl (7.5-11.1); PLATELET COUNT 170 K/MM3 (134-434); RDW 18.1 % (11.9-15.9); WHITE BLOOD COUNT 12.6 K/mm3 (4.0-10.0)
--- NOTE | 2017-10-05 17:02 | PN ---
Progress Note (short form) - Note Progress Note: nephrology f/u for dr david in icu situation reviewed Problems 1. ALEXANDRA 2. fluid overload 3. hypoalbuminemia 4. respiratory failure requiring intubation 5. anemia 6. etoh abuse 7. fevers 8. hypernatremia improving Active Medications Acetaminophen (Tylenol -) 650 mg NR Q6H PRN PRN Reason: FEVER OR PAIN Last Admin: 09/16/17 18:27 Dose: 650 mg Amiodarone HCl (Cordarone -) 200 mg PEG DAILY [facility] Last Admin: 10/05/17 09:31 Dose: 200 mg Chlorhexidine Gluconate (Peridex -) 15 ml MM BID [facility] Last Admin: 10/05/17 13:00 Dose: 15 ml Ferrous Sulfate (Feosol -) 325 mg PO DAILY [facility] Last Admin: 10/05/17 09:34 Dose: 325 mg Folic Acid (Folic Acid -) 1 mg PO DAILY [facility] Last Admin: 10/05/17 09:30 Dose: 1 mg Heparin Sodium (Porcine) (Heparin -) 5,000 unit SQ BID [facility] Last Admin: 10/05/17 09:30 Dose: 5,000 unit Famotidine/Sodium Chloride (Pepcid 20 Mg Premixed Ivpb -) 20 mg in 50 mls @ 100 mls/hr IVPB BID [facility] Last Admin: 10/05/17 09:31 Dose: 100 mls/hr Propofol (Diprivan -) 1,000,000 mcg in 100 mls @ 2.493 mls/hr IVPB TITR [facility]; 5 MCG/KG/MIN PRN Reason: Protocol Last Admin: 10/05/17 15:01 Dose: 20 mcg/kg/min, 9.972 mls/hr Dextrose (D5w -) 1,000 mls @ 83 mls/hr IV ASDIR [facility] Last Admin: 10/04/17 19:00 Dose: 83 mls/hr Metoprolol Tartrate (Lopressor Injection -) 5 mg IVPUSH Q6H PRN PRN Reason: HYPERTENSION Last Admin: 10/05/17 02:00 Dose: 5 mg Metoprolol Tartrate (Lopressor -) 25 mg PEG BID [facility] Last Admin: 10/05/17 09:31 Dose: 25 mg Multivitamins/Minerals (Theragran-M) 1 each PO DAILY [facility] Last Admin: 10/05/17 09:31 Dose: 1 each Mupirocin (Bactroban 2% Cream -) 1 applic TP BID [facility] Last Admin: 10/05/17 15:01 Dose: 1 applic Sevelamer Carbonate (Renvela Powder Packet -) 0.8 gm PEG TIDCM [facility] Last Admin: 10/05/17 12:36 Dose: 0.8 gm Thiamine HCl (Vitamin B1 -) 100 mg PO DAILY [facility] Last Admin: 10/05/17 09:36 Dose: 100 mg Last Vital Signs Temp Pulse Resp BP Pulse Ox 98.4 F 90 18 156/84 100 10/05/17 14:00 10/05/17 16:00 10/05/17 16:23 10/05/17 16:00 10/05/17 12:00 unresponsive on vent sedated with propofol Lungs clear vented sounds, Heart soft sounds Abd soft, no guarding ext edema 10/04/17 10/05/17 06:05 05:45 Sodium 152 H 148 H Potassium 3.5 3.4 L Chloride 119 H 116 H Carbon Dioxide 19 L 18 L Anion Gap 14 14 BUN 112 H* 97 H Creatinine 4.6 H 4.3 H Creat Clearance w eGFR 12.77 13.80 Calcium 7.7 L 8.2 L Magnesium 1.7 L ALT 7 L Alkaline Phosphatase 130 H Albumin 1.9 L 2.0 L renal function relatively same non oliguric being diuresed severe anemia s/p prbc s/p hypokalemia resolved consider transfusion prbc
[2017-10-05] MEDS: DEXTROSE 5%-WATER - 1,000 ML IV SCH (17:05)
[2017-10-05 17:17] LABS: ANION GAP 11 (8-16); CO2 19 mmol/L (21-32)
[2017-10-05 17:19] LABS: GLUCOSE,RANDOM 517 mg/dL (74-106)
[2017-10-05] MEDS ORDERED: DEXTROSE 5%-WATER - 1,000 ML IV SCH (19:00)
[2017-10-06 06:14] LABS: BASOPHIL 0.8 % (0-2.0); EOSINOPHIL 12.6 % (0-4.5); MCH 28.8 pg (25.7-33.7); MCHC 33.3 g/dl (32.0-35.9); MEAN CELL VOLUME 86.3 fl (80-96); MEAN PLT VOLUME 7.2 fl (7.5-11.1); NEUTROPHILS 69.2 % (42.8-82.8); PLATELET COUNT 193 K/MM3 (134-434); RDW 17.9 % (11.9-15.9); WHITE BLOOD COUNT 12.3 K/mm3 (4.0-10.0)
[2017-10-06 06:33] LABS: ANION GAP 12 (8-16); CALCIUM 7.8 mg/dL (8.5-10.1); CO2 19 mmol/L (21-32); GLUCOSE,RANDOM 127 mg/dL (74-106); MAGNESIUM 1.9 mg/dL (1.8-2.4); PHOSPHOROUS 4.3 mg/dL (2.5-4.9); SGOT/AST 23 U/L (15-37); SGPT/ALT 7 U/L (12-78)
[2017-10-06 06:36] LABS: ALK PHOS 125 U/L (45-117); BILIRUBIN,TOTAL 0.5 mg/dL (0.2-1.0); TOT PROT 7.1 g/dl (6.4-8.2)
--- NOTE | 2017-10-06 08:05 | PN ---
Physical Exam: 24H Events: yesterday -pt agreed to trach SUBJECTIVE: Patient seen and examined in ICU. Ventilated AC mode, FiO2 40%, mild sedation on propofol gtt OBJECTIVE: Vital Signs Period Temp Pulse Resp BP Sys/Jeff Pulse Ox Last 24 Hr 98.4 F-99.8 F 80-93 18-24 120-173/68-97 100-100 Intake & Output 10/03/17 10/04/17 10/05/17 10/06/17 23:59 23:59 23:59 23:59 Intake Total 1448.0 2500.8 2745 1880 Output Total 2120 1900 3100 300 Balance -672.0 600.8 -355 1580 Weight 84.414 kg 83.007 kg 82.5 kg 84.277 kg GENERAL: Intubated, awake, following verbal commands EYES: PERRL, extraocular movements intact, sclera anicteric, conjunctiva clear. No ptosis. ENT: ETT, OGT, nares patent without signs of bleeding LUNGS: mechanical breath sounds, b/l rhonchi HEART: rrr, normal s1/s2 ABDOMEN: Soft, ntnd EXTREMITIES: 2+ pulses, wwp, 1+ pitting edema Lower>Upper SKIN: confluent hive-like rash on anterior chest and R/L UE, improving CBC, BMP 10/06/17 05:50 10/06/17 05:50 Hepatic Panel Direct Bilirubin 1.8 mg/dL (0.0-0.2) H D 09/09/17 05:00 Total Bilirubin 0.5 mg/dL (0.2-1.0) 10/06/17 05:50 AST 23 U/L (15-37) 10/06/17 05:50 ALT 7 U/L (12-78) L 10/06/17 05:50 Alkaline Phosphatase 125 U/L (45-117) H 10/06/17 05:50 Albumin 2.0 g/dl (3.4-5.0) L 10/06/17 05:50 Ca - 7.8 Phos - 4.3 Mg - 1.9 Random Vancomycin 10/06: 14.491 IMAGING: CXR 10/04/17: bilateral consolidations and pleural effusions R>L, no significant change from prior Active Medications Acetaminophen (Tylenol -) 650 mg NR Q6H PRN PRN Reason: FEVER OR PAIN Last Admin: 09/16/17 18:27 Dose: 650 mg Amiodarone HCl (Cordarone -) 200 mg PEG DAILY [facility] Last Admin: 10/05/17 09:31 Dose: 200 mg Chlorhexidine Gluconate (Peridex -) 15 ml MM BID [facility] Last Admin: 10/05/17 21:30 Dose: 15 ml Ferrous Sulfate (Feosol -) 325 mg PO DAILY [facility] Last Admin: 10/05/17 09:34 Dose: 325 mg Folic Acid (Folic Acid -) 1 mg PO DAILY [facility] Last Admin: 10/05/17 09:30 Dose: 1 mg Heparin Sodium (Porcine) (Heparin -) 5,000 unit SQ BID [facility] Last Admin: 10/05/17 21:30 Dose: 5,000 unit Famotidine/Sodium Chloride (Pepcid 20 Mg Premixed Ivpb -) 20 mg in 50 mls @ 100 mls/hr IVPB BID [facility] Last Admin: 10/05/17 21:30 Dose: 100 mls/hr Propofol (Diprivan -) 1,000,000 mcg in 100 mls @ 2.493 mls/hr IVPB TITR [facility]; 5 MCG/KG/MIN PRN Reason: Protocol Last Admin: 10/05/17 15:01 Dose: 20 mcg/kg/min, 9.972 mls/hr Dextrose (D5w -) 1,000 mls @ 42 mls/hr IV ASDIR [facility] Last Admin: 10/05/17 19:00 Dose: 42 mls/hr Metoprolol Tartrate (Lopressor Injection -) 5 mg IVPUSH Q6H PRN PRN Reason: HYPERTENSION Last Admin: 10/05/17 22:00 Dose: 5 mg Metoprolol Tartrate (Lopressor -) 25 mg PEG BID [facility] Last Admin: 10/05/17 21:30 Dose: 25 mg Multivitamins/Minerals (Theragran-M) 1 each PO DAILY [facility] Last Admin: 10/05/17 09:31 Dose: 1 each Mupirocin (Bactroban 2% Cream -) 1 applic TP BID [facility] Last Admin: 10/05/17 21:31 Dose: 1 applic Sevelamer Carbonate (Renvela Powder Packet -) 0.8 gm PEG TIDCM [facility] Last Admin: 10/05/17 17:05 Dose: 0.8 gm Thiamine HCl (Vitamin B1 -) 100 mg PO DAILY [facility] Last Admin: 10/05/17 09:36 Dose: 100 mg ASSESSMENT/PLAN: 66yo man with PMH of EtOH abuse and HTN who is admitted (08/31) for acute hypoxic respiratory failure requiring mechanical ventilation (09/02-09/19, 09/24- , 10/01-). Continues to have cavitary PNA with loculated effusions bilaterally and acute thoracic osteomyletitis (T9-T10), currently on Vancomycin (renally dosed). Renal function improving, and maintaining UOP. ICU team discussing with patient need for tracheostomy as this is 3rd intubation. s/p PEG , which GI has cleared for use today. #sepsis 2/2 cavitary PNA, acute osteomyelitis, s/p MSSA bacteremia -ID following, long-term abx needed for acute osteomyelitis (6-8 wks), antibiotics day#30 -Vancomycin 500mg IV (dosed renally); check Random Vanc level daily #acute hypoxic respiratory failure -Vent mgmt per ICU team, planning for tracheostomy #ARF, Renal following, still considering HD, renal function slight improvement today -Ferrous Sulfate 325 mg PEG DAILY and Sevelamer Carbonate (Renvela) 800 mg PEG TID -Strict I&Os, hines, Renal dose for meds #Acute blood loss anemia, s/p 7Ux PRBCs, Hgb stable, no further bleeds -Trend H&H, transfuse Hgb<7 #Afib - recurrent episode last night, started on amio gtt -Cardiology following -Amiodarone 200mg PEG qd for rate control -hold AC now given co-morbidities (CHADVASC 2) #suspected chronic diastolic heart failure - ECHO 09/02/2017 probable preserved LV function, but can't R/O regional wall motion abnormality -Metoprolol 25mg PEG BID and 5mg IV Q6H PRN -consider hydralazine prn #EtOH abuse -Monitor for signs of EtOH withdrawal -MVI, thiamine 100mg PEG qd, folic acid 1mg PEG daily #FEN -D5W -hyperPhos noted, continue Sevelamer TID -Enteral feeds via PEG with free water flushes #PPX -Heparin 5000U SQ TID -GI - pepcid 20mg IV BID #Dispo: continue ICU monitoring FULL code d/w Dr. Zakia Salter MD PGY-1 - Internal Medicine Visit type - Emergency Visit Emergency Visit: No - New Patient This patient is new to me today: No - Critical Care Critical Care patient: Yes Total Critical Care Time (in minutes): 35 Critical Care Statement: The care of this patient involved high complexity decision making to prevent further life threatening deterioration of the patient 's condition and/or to evaluate & treat vital organ system(s) failure or risk of failure.
--- NOTE | 2017-10-06 08:29 | PN ---
Teaching Attending Note Name of Resident: Lydia Salter ATTENDING PHYSICIAN STATEMENT I saw and evaluated the patient. I reviewed the resident's note and discussed the case with the resident. I agree with the resident's findings and plan as documented. SUBJECTIVE:resting comfortable. shakes head no to pain or difficulty breathing OBJECTIVE: Last Vital Signs Temp Pulse Resp BP Pulse Ox 99 F 93 H 23 154/95 100 10/06/17 06:00 10/06/17 06:00 10/06/17 07:56 10/06/17 06:00 10/06/17 07:56 Intake & Output 10/03/17 10/04/17 10/05/17 10/06/17 23:59 23:59 23:59 23:59 Intake Total 1448.0 2500.8 2745 1880 Output Total 2120 1900 3100 300 Balance -672.0 600.8 -355 1580 Weight 186 lb 1.6 oz 183 lb 181 lb 14.102 oz 185 lb 12.8 oz General intubated, resting comfortable CV S1 S2 RRR no murmur/rub/gallop Lungs coarse breath sounds anteriorly no crackles Abdomen soft NT/ND Extremities no pedal edema ASSESSMENT AND PLAN: 66 yo M with PMH alcohol abuse, HTN who presented to the ER after being found on the floor. 1. Acute hypoxic respiratory failure- likely due to cavitary PNA. s/p extubated 09/19 and re-intubated and extubated 09/27. re-intubated 10/01. due to tacypnea and hypoxia. full vent support. will likely require trach at this time, crit care on board. 2. Sepsis secondary to cavitary healthcare-associated pneumonia, MSSA bacteremia and vertebral OM- with complicated loculated effusion. s/p chest tube removed. on vanco by level. will need 6-8w abx for OM. CT surgery and ID on board 3. New onset afib-rate controlled. on amio po. anticoagulation on hold due to medical problems. should ideally be on coumadin once improved. 4. Acute kidney injury with hyperphosphatemia-stabilizing. no indication for emergent HD, may require if does not improve. on renelva. Nephrology on board. 5. Anemia- s/p 3 units PRBC this admission. Hgb overall stable. no indication for txn. on iron supplementations. 6. Hypernatremia- dehydration. resolved. will decrease free water flushes to 20cc/H. cont D5w 7. Hypokalemia-Kcl peg 8. Hypomagnesemia- resolved 9. Hepatic transaminitis- stable. US shows hepatosplenomegaly and fatty infiltration of liver 10. Thrombocytopenia- Secondary to alcohol, splenomegaly. now stable 11. HTN- initially hypotensive. now off pressors. cont medications 12. Continue alcohol dependence- Continue thiamine, folic acid, multivitamin 13. Chronic right subdural hematoma 14. DVT prophylaxis- heparin sq 15. Dysphagia-likely due to weakness. s/p PEG placement 10/03. tolerating feeds. GI on board 16. MICU monitoring. poor overall prognosis. will need trach placement. HCP ( daughter) has been unreachable. will see if pt is able to make his own decisions as he is more alert The care of this patient involved high complexity decision making to prevent further life threatening deterioration of the patient's condition and/or to evaluate & treat vital organ system(s) failure or risk of failure. 35 mins
--- NOTE | 2017-10-06 08:33 | PN ---
Progress Note (short form) - Note Progress Note: intubated NAD awake this am Vital Signs Period Temp Pulse Resp BP Sys/Jeff Pulse Ox Last 24 Hr 98.4 F-99.8 F 80-93 18-24 120-173/68-95 100-100 cor-rrr lungs decreased bs at bases abd soft,nt +gt ext no edema CBC, BMP 10/06/17 05:50 10/06/17 05:50 a/p MSSA sepsis-day #30, now on vanco by levels ?interstitial nephritis, plan 6 to 8 weeks of treatment T9/10 discitis respiratory failure ARF anemia- gi bleed ALISA negative f/u vancomycin trough, redose less than 15
[2017-10-06] MEDS ORDERED: PT OWN MED DRAWER 7, Y5N ONE ×2 (08:40→20:32)
[2017-10-06] MEDS: SEVELAMER CARBONATE 0.8 GM POWDER PACKET PEG SCH ×3 (09:00→17:25)
[2017-10-06] MEDS: FERROUS SO4 325 MG TABLET (FP) PO SCH (09:06)
[2017-10-06] MEDS: MULTIVITAMINS THER W-MINERALS COMBO TABLET (FP) PO SCH (09:06)
[2017-10-06] MEDS: THIAMINE HCL 100 MG TABLET (FP) PO SCH (09:06)
[2017-10-06] MEDS: FOLIC ACID 1 MG TABLET (FP) PO SCH (09:06)
[2017-10-06] MEDS: AMIODARONE HCL 200 MG TABLET (FP) PEG SCH (09:06)
[2017-10-06] MEDS: METOPROLOL TARTRATE 25 MG TABLET (FP) PEG SCH ×2 (09:07→21:02)
[2017-10-06] MEDS: HEPARIN NA (PORCINE) 5,000 UNITS/ML 1ML VIAL SQ SCH ×2 (09:07→21:01)
[2017-10-06] MEDS: MUPIROCIN CA 2% TOPICAL CREAM 15 GM TUBE TP SCH ×2 (09:09→21:01)
[2017-10-06] MEDS: CHLORHEXIDINE GLUCONATE 0.12% 15ML CUP MM SCH ×2 (09:10→21:02)
[2017-10-06] MEDS: FAMOTIDINE 20 MG/50 ML IVPB 20 MG/50 ML MG IVPB SCH ×2 (09:10→21:00)
--- NOTE | 2017-10-06 09:32 | PN ---
Progress Note (short form) - Note Progress Note: Pulm/CCM SUBJECTIVE: Patient seen and examined in the ICU. -no acute events overnight -agreed to trach Vital Signs Temp 99 F 10/06/17 06:00 Pulse 93 H 10/06/17 06:00 Resp 23 10/06/17 07:56 BP 154/95 10/06/17 06:00 Pulse Ox 100 10/06/17 07:56 Intake & Output 10/05/17 10/05/17 10/06/17 11:59 23:59 11:59 Intake Total 885 1860 1880 Output Total 900 2200 300 Balance -15 -340 1580 Weight 82.5 kg 84.277 kg Intake: IV 535 950 750 D5w - 1,000 ml @ 42 mls/ 462 hr IV ASDIR [facility] Rx#: [id number] D5w - 1,000 ml @ 83 mls/ 332 830 hr IV ASDIR [facility] Rx#: [id number] DIPRIVAN - 1,000,000 mcg 203 120 288 In 100 ml @ 5 MCG/KG/MIN 2.493 mls/hr IVPB TITR [facility] Rx#:[id number] IVPB 50 50 Tube Feeding 500 600 Packed Cells 350 Tube Irrigant 360 480 Output: Urine 900 2200 300 Freeman 900 2200 300 Other: Voiding Method Indwelling Catheter Indwelling Catheter Indwelling Catheter Bowel Movement No No Weight Measurement Method Built in Bedscale Built in Bedscale Active Medications Acetaminophen (Tylenol -) 650 mg NR Q6H PRN PRN Reason: FEVER OR PAIN Last Admin: 09/16/17 18:27 Dose: 650 mg Amiodarone HCl (Cordarone -) 200 mg PEG DAILY [facility] Last Admin: 10/06/17 09:06 Dose: 200 mg Chlorhexidine Gluconate (Peridex -) 15 ml MM BID [facility] Last Admin: 10/06/17 09:10 Dose: 15 ml Ferrous Sulfate (Feosol -) 325 mg PO DAILY [facility] Last Admin: 10/06/17 09:06 Dose: 325 mg Folic Acid (Folic Acid -) 1 mg PO DAILY [facility] Last Admin: 10/06/17 09:06 Dose: 1 mg Heparin Sodium (Porcine) (Heparin -) 5,000 unit SQ BID [facility] Last Admin: 10/06/17 09:07 Dose: 5,000 unit Famotidine/Sodium Chloride (Pepcid 20 Mg Premixed Ivpb -) 20 mg in 50 mls @ 100 mls/hr IVPB BID [facility] Last Admin: 10/06/17 09:10 Dose: 100 mls/hr Propofol (Diprivan -) 1,000,000 mcg in 100 mls @ 2.493 mls/hr IVPB TITR [facility]; 5 MCG/KG/MIN PRN Reason: Protocol Last Admin: 10/05/17 15:01 Dose: 20 mcg/kg/min, 9.972 mls/hr Dextrose (D5w -) 1,000 mls @ 42 mls/hr IV [facility] Last Admin: 10/05/17 19:00 Dose: 42 mls/hr Metoprolol Tartrate (Lopressor Injection -) 5 mg IVPUSH Q6H PRN PRN Reason: HYPERTENSION Last Admin: 10/05/17 22:00 Dose: 5 mg Metoprolol Tartrate (Lopressor -) 25 mg PEG BID [facility] Last Admin: 10/06/17 09:07 Dose: 25 mg Multivitamins/Minerals (Theragran-M) 1 each PO DAILY [facility] Last Admin: 10/06/17 09:06 Dose: 1 each Mupirocin (Bactroban 2% Cream -) 1 applic TP BID [facility] Last Admin: 10/06/17 09:09 Dose: 1 applic Sevelamer Carbonate (Renvela Powder Packet -) 0.8 gm PEG TIDCM [facility] Last Admin: 10/06/17 09:00 Dose: 0.8 gm Thiamine HCl (Vitamin B1 -) 100 mg PO DAILY [facility] Last Admin: 10/06/17 09:06 Dose: 100 mg GENERAL: Intubated and awake. HEAD: Normal with no signs of trauma. EYES: (-) Pallor ENT: Ears normal, nares patent, moist mucous membranes. NECK: Trachea midline, LUNGS: Bilateral coarse rhonchi, No wheeze, minimal thick yellow secretions HEART: s1s2 chris.. ABDOMEN:PEG CDI EXTREMITIES: edema++ SKIN: Warm, dry, CBCD WBC 12.3 K/mm3 (4.0-10.0) H 10/06/17 05:50 RBC 2.67 M/mm3 (4.00-5.60) L 10/06/17 05:50 Hgb 7.7 GM/dL (11.7-16.9) L 10/06/17 05:50 Hct 23.0 % (35.4-49) L 10/06/17 05:50 MCV 86.3 fl (80-96) 10/06/17 05:50 MCHC 33.3 g/dl (32.0-35.9) 10/06/17 05:50 RDW 17.9 % (11.9-15.9) H 10/06/17 05:50 Plt Count 193 K/MM3 (134-434) 10/06/17 05:50 MPV 7.2 fl (7.5-11.1) L 10/06/17 05:50 CMP Sodium 144 mmol/L (136-145) 10/06/17 05:50 Potassium 3.6 mmol/L (3.5-5.1) 10/06/17 05:50 Chloride 113 mmol/L (98-107) H 10/06/17 05:50 Carbon Dioxide 19 mmol/L (21-32) L 10/06/17 05:50 Anion Gap 12 (8-16) 10/06/17 05:50 BUN 91 mg/dL (7-18) H 10/06/17 05:50 Creatinine 4.0 mg/dL (0.7-1.3) H 10/06/17 05:50 Creat Clearance w eGFR 15.01 (>60) 10/06/17 05:50 Calcium 7.8 mg/dL (8.5-10.1) L 10/06/17 05:50 Total Bilirubin 0.5 mg/dL (0.2-1.0) 10/06/17 05:50 AST 23 U/L (15-37) 10/06/17 05:50 ALT 7 U/L (12-78) L 10/06/17 05:50 Alkaline Phosphatase 125 U/L (45-117) H 10/06/17 05:50 Total Protein 7.1 g/dl (6.4-8.2) 10/06/17 05:50 Albumin 2.0 g/dl (3.4-5.0) L 10/06/17 05:50 ASSESSMENT/PLAN: Acute Hypoxic Respiratory Failure Pneumonia MSSA Bacteremia Loculated Pleural Effusions LV Diastolic Dysfunction Paroxysmal Atrial Fibrillation Acute Kidney Injury GI Bleed likely from rectal tube/ulcer Acute Blood Loss Anemia AFib Ammendable for trach, agreed to procedure this am, will try to book for early next week ABX per ID VTE prophylaxis IVF PPI Rate control with metoprolol VTE prophylaxis S/p PEG --enteral feeds Shun Silva ACNP 3949 35min CCT
[2017-10-06] MEDS ORDERED: VANCOMYCIN 500 MG/100 ML PRE-DOCKED IVPB ONE (10:53)
[2017-10-06] MEDS ORDERED: VANCOMYCIN 500 MG in DEXTROSE 5%-WATER - 100 ML IVPB ONE (11:00)
[2017-10-06] MEDS: PROPOFOL 1,000,000 MCG/100 ML VIAL IVPB SCH (11:30)
--- NOTE | 2017-10-06 16:55 | PN ---
Progress Note (short form) - Note Progress Note: nephrology f/u for dr david in icu situation reviewed Problems 1. ALEXANDRA- renal function improving 2. fluid overload 3. hypoalbuminemia 4. respiratory failure requiring intubation 5. anemia 6. etoh abuse 7. fevers 8. hypernatremia resolved Active Medications Acetaminophen (Tylenol -) 650 mg NR Q6H PRN PRN Reason: FEVER OR PAIN Last Admin: 09/16/17 18:27 Dose: 650 mg Amiodarone HCl (Cordarone -) 200 mg PEG DAILY [facility] Last Admin: 10/06/17 09:06 Dose: 200 mg Chlorhexidine Gluconate (Peridex -) 15 ml MM BID [facility] Last Admin: 10/06/17 09:10 Dose: 15 ml Ferrous Sulfate (Feosol -) 325 mg PO DAILY [facility] Last Admin: 10/06/17 09:06 Dose: 325 mg Folic Acid (Folic Acid -) 1 mg PO DAILY [facility] Last Admin: 10/06/17 09:06 Dose: 1 mg Heparin Sodium (Porcine) (Heparin -) 5,000 unit SQ BID [facility] Last Admin: 10/06/17 09:07 Dose: 5,000 unit Famotidine/Sodium Chloride (Pepcid 20 Mg Premixed Ivpb -) 20 mg in 50 mls @ 100 mls/hr IVPB BID [facility] Last Admin: 10/06/17 09:10 Dose: 100 mls/hr Propofol (Diprivan -) 1,000,000 mcg in 100 mls @ 2.493 mls/hr IVPB TITR [facility]; 5 MCG/KG/MIN PRN Reason: Protocol Last Admin: 10/05/17 15:01 Dose: 20 mcg/kg/min, 9.972 mls/hr Dextrose (D5w -) 1,000 mls @ 42 mls/hr IV ASDIR [facility] Last Admin: 10/05/17 19:00 Dose: 42 mls/hr Metoprolol Tartrate (Lopressor Injection -) 5 mg IVPUSH Q6H PRN PRN Reason: HYPERTENSION Last Admin: 10/05/17 22:00 Dose: 5 mg Metoprolol Tartrate (Lopressor -) 25 mg PEG BID [facility] Last Admin: 10/06/17 09:07 Dose: 25 mg Multivitamins/Minerals (Theragran-M) 1 each PO DAILY [facility] Last Admin: 10/06/17 09:06 Dose: 1 each Mupirocin (Bactroban 2% Cream -) 1 applic TP BID [facility] Last Admin: 10/06/17 09:09 Dose: 1 applic Sevelamer Carbonate (Renvela Powder Packet -) 0.8 gm PEG TIDCM [facility] Last Admin: 10/06/17 11:55 Dose: 0.8 gm Thiamine HCl (Vitamin B1 -) 100 mg PO DAILY [facility] Last Admin: 10/06/17 09:06 Dose: 100 mg Last Vital Signs Temp Pulse Resp BP Pulse Ox 99 F 95 H 15 118/67 100 10/06/17 06:00 10/06/17 14:00 10/06/17 14:00 10/06/17 14:00 10/06/17 10:19 unresponsive on vent sedated with propofol Lungs clear vented sounds, Heart soft sounds Abd soft, no guarding ext edema CBC, BMP 10/06/17 05:50 10/06/17 05:50 renal function improving along with serum sodium severe anemia s/p prbc s/p hypokalemia resolving consider transfusion prbc
--- NOTE | 2017-10-06 18:00 | PN ---
Progress Note, Physician History of Present Illness: Reintubated for recurrent respiratory failure, post PEG placement, sleeping on vent. - Current Medication List Current Medications: Active Medications Acetaminophen (Tylenol -) 650 mg NR Q6H PRN PRN Reason: FEVER OR PAIN Last Admin: 09/16/17 18:27 Dose: 650 mg Amiodarone HCl (Cordarone -) 200 mg PEG DAILY [facility] Last Admin: 10/06/17 09:06 Dose: 200 mg Chlorhexidine Gluconate (Peridex -) 15 ml MM BID [facility] Last Admin: 10/06/17 09:10 Dose: 15 ml Ferrous Sulfate (Feosol -) 325 mg PO DAILY [facility] Last Admin: 10/06/17 09:06 Dose: 325 mg Folic Acid (Folic Acid -) 1 mg PO DAILY [facility] Last Admin: 10/06/17 09:06 Dose: 1 mg Heparin Sodium (Porcine) (Heparin -) 5,000 unit SQ BID [facility] Last Admin: 10/06/17 09:07 Dose: 5,000 unit Famotidine/Sodium Chloride (Pepcid 20 Mg Premixed Ivpb -) 20 mg in 50 mls @ 100 mls/hr IVPB BID [facility] Last Admin: 10/06/17 09:10 Dose: 100 mls/hr Propofol (Diprivan -) 1,000,000 mcg in 100 mls @ 2.493 mls/hr IVPB TITR [facility]; 5 MCG/KG/MIN PRN Reason: Protocol Last Admin: 10/06/17 11:30 Dose: 24.8 mcg/kg/min, 12.365 mls/hr Dextrose (D5w -) 1,000 mls @ 42 mls/hr IV ASDIR [facility] Last Admin: 10/05/17 19:00 Dose: 42 mls/hr Metoprolol Tartrate (Lopressor Injection -) 5 mg IVPUSH Q6H PRN PRN Reason: HYPERTENSION Last Admin: 10/05/17 22:00 Dose: 5 mg Metoprolol Tartrate (Lopressor -) 25 mg PEG BID [facility] Last Admin: 10/06/17 09:07 Dose: 25 mg Multivitamins/Minerals (Theragran-M) 1 each PO DAILY [facility] Last Admin: 10/06/17 09:06 Dose: 1 each Mupirocin (Bactroban 2% Cream -) 1 applic TP BID [facility] Last Admin: 10/06/17 09:09 Dose: 1 applic Sevelamer Carbonate (Renvela Powder Packet -) 0.8 gm PEG TIDCM [facility] Last Admin: 10/06/17 17:25 Dose: 0.8 gm Thiamine HCl (Vitamin B1 -) 100 mg PO DAILY [facility] Last Admin: 10/06/17 09:06 Dose: 100 mg - Objective Vital Signs: Vital Signs Temperature 99 F 10/06/17 06:00 Pulse Rate 95 H 10/06/17 14:00 Respiratory Rate 22 10/06/17 16:50 Blood Pressure 118/67 10/06/17 14:00 O2 Sat by Pulse Oximetry (%) 100 10/06/17 10:19 Constitutional: Yes: No Distress, Calm Neck: Yes: Supple Cardiovascular: Yes: Regular Rate and Rhythm Respiratory: Yes: Intubated, Mechanically Ventilated, Rhonchi Gastrointestinal: Yes: Normal Bowel Sounds, Soft Edema: No Labs: CBC, BMP 10/06/17 05:50 10/06/17 05:50 INR, PTT INR 1.14 (0.82-1.09) D 10/03/17 05:22 Problem List - Problems (1) Respiratory failure with hypoxia Code(s): J96.91 - RESPIRATORY FAILURE, UNSPECIFIED WITH HYPOXIA Qualifiers: Chronicity: acute Qualified Code(s): J96.01 - Acute respiratory failure with hypoxia (2) Pneumonia Code(s): J18.9 - PNEUMONIA, UNSPECIFIED ORGANISM Qualifiers: Pneumonia type: aspiration pneumonia (3) Staphylococcus aureus bacteremia Code(s): R78.81 - BACTEREMIA (5) History of alcohol abuse Code(s): Z87.898 - PERSONAL HISTORY OF OTHER SPECIFIED CONDITIONS (6) Acute kidney injury Code(s): N17.9 - ACUTE KIDNEY FAILURE, UNSPECIFIED (7) Acute diastolic heart failure Code(s): I50.31 - ACUTE DIASTOLIC (CONGESTIVE) HEART FAILURE (8) Anemia Code(s): D64.9 - ANEMIA, UNSPECIFIED Qualifiers: Anemia type: unspecified type Qualified Code(s): D64.9 - Anemia, unspecified (9) Discitis of cervicothoracic region Code(s): M46.43 - DISCITIS, UNSPECIFIED, CERVICOTHORACIC REGION (10) Paroxysmal atrial fibrillation Code(s): I48.0 - PAROXYSMAL ATRIAL FIBRILLATION (11) Rectal ulcer Code(s): K62.6 - ULCER OF ANUS AND RECTUM (12) Status post insertion of percutaneous endoscopic gastrostomy (PEG) tube Code(s): Z93.1 - GASTROSTOMY STATUS Assessment/Plan 1. Paroxysmal atrial fibrillation [id number] score of 2, currently in sinus rhythm not on Eliquis in view of above noted renal insufficiency 2. Acute hypoxic respiratory failure, post re-intubation, pulmonary infiltrates/ pulmonary edema improved 3. Cavitating pneumonia, MSSA bacteremia, post septic shock no evidence of endocarditis by ALISA criteria 4. Diastolic LV dysfunction with class I-II NYHA congestive heart failure, volume overload, resolved 5. 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 Loculated effusion post chest tube insertion 7. History of alcohol dependence 8. Acute renal insufficiency 9. Hypernatremia 10. Anemia 11. GI Bleed likely from rectal tube/ulcer PLAN: 1. Vent support, post PEG, enteral feeds with free water repletion, agreed for trach 2. Continue Lopressor 25 bid with IV Lopressor as needed 3. Amiodarone 200 qd 4. Antibiotic recs per ID service 5. DVT and GI prophylaxis
[2017-10-07] MEDS ORDERED: HEMOQUE TEST 1 EACH EACH ONE (06:14)
[2017-10-07 06:28] LABS: MCH 30.1 pg (25.7-33.7); MCHC 34.7 g/dl (32.0-35.9); MEAN CELL VOLUME 86.6 fl (80-96); MEAN PLT VOLUME 7.1 fl (7.5-11.1); PLATELET COUNT 203 K/MM3 (134-434); WHITE BLOOD COUNT 12.1 K/mm3 (4.0-10.0)
[2017-10-07 07:03] LABS: ANION GAP 11 (8-16); CALCIUM 8.3 mg/dL (8.5-10.1); CO2 19 mmol/L (21-32); GLUCOSE,RANDOM 110 mg/dL (74-106)
[2017-10-07 07:09] LABS: ALK PHOS 120 U/L (45-117); BILIRUBIN,TOTAL 0.6 mg/dL (0.2-1.0); CREATININE 3.8 mg/dL (0.7-1.3); SGOT/AST 25 U/L (15-37); SGPT/ALT 11 U/L (12-78); TOT PROT 6.9 g/dl (6.4-8.2)
--- NOTE | 2017-10-07 07:42 | PN ---
Progress Note, Physician Chief Complaint: ID Intubated Vancomycin day 31 therapy for Staphylococcal bacteremia sepsis MSSA and vertebral osteomyelitis - Current Medication List Current Medications: Active Medications Acetaminophen (Tylenol -) 650 mg NR Q6H PRN PRN Reason: FEVER OR PAIN Last Admin: 09/16/17 18:27 Dose: 650 mg Amiodarone HCl (Cordarone -) 200 mg PEG DAILY [facility] Last Admin: 10/06/17 09:06 Dose: 200 mg Chlorhexidine Gluconate (Peridex -) 15 ml MM BID [facility] Last Admin: 10/06/17 21:02 Dose: 15 ml Ferrous Sulfate (Feosol -) 325 mg PO DAILY [facility] Last Admin: 10/06/17 09:06 Dose: 325 mg Folic Acid (Folic Acid -) 1 mg PO DAILY [facility] Last Admin: 10/06/17 09:06 Dose: 1 mg Heparin Sodium (Porcine) (Heparin -) 5,000 unit SQ BID [facility] Last Admin: 10/06/17 21:01 Dose: 5,000 unit Famotidine/Sodium Chloride (Pepcid 20 Mg Premixed Ivpb -) 20 mg in 50 mls @ 100 mls/hr IVPB BID [facility] Last Admin: 10/06/17 21:00 Dose: 100 mls/hr Propofol (Diprivan -) 1,000,000 mcg in 100 mls @ 2.493 mls/hr IVPB TITR [facility]; 5 MCG/KG/MIN PRN Reason: Protocol Last Titration: 10/07/17 06:00 Dose: 34.89 mcg/kg/min, 17.4 mls/hr Metoprolol Tartrate (Lopressor Injection -) 5 mg IVPUSH Q6H PRN PRN Reason: HYPERTENSION Last Admin: 10/05/17 22:00 Dose: 5 mg Metoprolol Tartrate (Lopressor -) 25 mg PEG BID [facility] Last Admin: 10/06/17 21:02 Dose: 25 mg Multivitamins/Minerals (Theragran-M) 1 each PO DAILY [facility] Last Admin: 10/06/17 09:06 Dose: 1 each Mupirocin (Bactroban 2% Cream -) 1 applic TP BID [facility] Last Admin: 10/06/17 21:01 Dose: 1 applic Sevelamer Carbonate (Renvela Powder Packet -) 0.8 gm PEG TIDCM [facility] Last Admin: 10/06/17 17:25 Dose: 0.8 gm Thiamine HCl (Vitamin B1 -) 100 mg PO DAILY [facility] Last Admin: 10/06/17 09:06 Dose: 100 mg - Objective Vital Signs: Vital Signs Temperature 99.5 F 10/07/17 06:00 Pulse Rate 82 10/07/17 06:00 Respiratory Rate 24 10/07/17 06:00 Blood Pressure 121/92 10/07/17 06:00 O2 Sat by Pulse Oximetry (%) 97 10/06/17 23:38 Neck: Yes: WNL, Supple Cardiovascular: Yes: Regular Rate and Rhythm, S1, S2. No: Murmur Respiratory: Yes: WNL, Regular, CTA Bilaterally Gastrointestinal: Yes: WNL, Normal Bowel Sounds, Soft. No: Tenderness Edema: No Labs: CBC, BMP 10/07/17 05:25 10/07/17 05:25 INR, PTT INR 1.14 (0.82-1.09) D 10/03/17 05:22 Problem List - Problems (1) Respiratory failure with hypoxia Code(s): J96.91 - RESPIRATORY FAILURE, UNSPECIFIED WITH HYPOXIA Qualifiers: Chronicity: acute Qualified Code(s): J96.01 - Acute respiratory failure with hypoxia (2) Pneumonia Code(s): J18.9 - PNEUMONIA, UNSPECIFIED ORGANISM Qualifiers: Pneumonia type: aspiration pneumonia (3) Staphylococcus aureus bacteremia Code(s): R78.81 - BACTEREMIA (5) Endocarditis due to Staphylococcus Code(s): I33.0 - ACUTE AND SUBACUTE INFECTIVE ENDOCARDITIS; B95.8 - UNSP STAPHYLOCOCCUS THE CAUSE OF DISEASES CLASSD ELSWHR (6) Discitis of cervicothoracic region Code(s): M46.43 - DISCITIS, UNSPECIFIED, CERVICOTHORACIC REGION Assessment/Plan Laboratory Tests 10/07/17 10/07/17 10/07/17 05:25 05:25 05:25 WBC 12.1 H Hgb 7.9 L Hct 22.8 L Plt Count 203 BUN 87 H Creatinine 3.8 H Creat Clearance w eGFR 15.92 Total Bilirubin 0.6 AST 25 ALT 11 L D Alkaline Phosphatase 120 H Random Vancomycin 17.173 Assessment Respiratory failure MSSA bacteremia Vertebral osteomyelitis secondary MSSA Acute renal failure Rash ? beta lactam related ? Interstitial nephritis considered Plan Check Vanco level and give standing dose of vancomycin Consideration of tracheostomy per PMD CRP and ESR sEau EMERY 35 minute providing critical care time Esau EMERY
[2017-10-07] MEDS ORDERED: PT OWN MED DRAWER 7, Y5N ONE ×2 (07:52→21:28)
--- NOTE | 2017-10-07 08:24 | PN ---
Physical Exam: SUBJECTIVE: Patient seen and examined at bedside. Patient is intubated and sedated on propofol. As per nurse, patient sedation was reduced this am. Plans for tracheostomy were discussed with patient over the weekend. From previous notes, patient is agreeable for procedure. OBJECTIVE: Vital Signs Period Temp Pulse Resp BP Sys/Jeff Pulse Ox Last 24 Hr 98.9 F-99.5 F 77-99 13-27 107-156/67-95 97-100 GENERAL: Intubated, sedated ENT: nares patent without signs of bleeding LUNGS: mechanical breath sounds, b/l rhonchi noted HEART: Irregularly irregular rate, normal S1/S2 ABDOMEN: Soft, ntnd EXTREMITIES: 2+ pulses, 1+ pitting edema Lower>Upper SKIN: hive like rash has improved since previous examination Laboratory Results - last 24 hr 10/06/17 10/07/17 10/07/17 08:15 05:25 05:25 WBC 12.1 H RBC 2.64 L Hgb 7.9 L Hct 22.8 L MCV 86.6 MCH 30.1 MCHC 34.7 RDW 18.0 H Plt Count 203 MPV 7.1 L Sodium Potassium Chloride Carbon Dioxide Anion Gap BUN Creatinine Creat Clearance w eGFR Random Glucose Calcium Total Bilirubin AST ALT Alkaline Phosphatase C-Reactive Protein Total Protein Albumin Random Vancomycin 14.491 17.173 10/07/17 10/07/17 05:25 05:25 WBC RBC Hgb Hct MCV MCH MCHC RDW Plt Count MPV Sodium 140 Potassium 3.9 Chloride 110 H Carbon Dioxide 19 L Anion Gap 11 BUN 87 H Creatinine 3.8 H Creat Clearance w eGFR 15.92 Random Glucose 110 H Calcium 8.3 L Total Bilirubin 0.6 AST 25 ALT 11 L D Alkaline Phosphatase 120 H C-Reactive Protein Cancelled Total Protein 6.9 Albumin 2.0 L Random Vancomycin Active Medications Generic Name Dose Route Start Last Admin Trade Name Freq PRN Reason Stop Dose Admin Acetaminophen 650 mg 09/07/17 05:53 09/16/17 18:27 Tylenol - NR 650 mg Q6H PRN Administration FEVER OR PAIN Amiodarone HCl 200 mg 10/04/17 16:45 10/06/17 09:06 Cordarone - PEG 200 mg DAILY [facility] Administration Chlorhexidine Gluconate 15 ml 09/08/17 12:30 10/06/17 21:02 Peridex - MM 15 ml BID [facility] Administration Ferrous Sulfate 325 mg 09/05/17 12:00 10/06/17 09:06 Feosol - PO 325 mg DAILY [facility] Administration Folic Acid 1 mg 09/02/17 10:00 10/06/17 09:06 Folic Acid - PO 1 mg DAILY [facility] Administration Heparin Sodium (Porcine) 5,000 unit 10/04/17 22:00 10/06/17 21:01 Heparin - SQ 5,000 unit BID [facility] Administration Famotidine/Sodium Chloride 20 mg in 50 mls @ 100 mls/hr 09/28/17 10:00 21:00 Pepcid 20 Mg Premixed Ivpb - IVPB 100 mls/hr BID [facility] Administration Propofol 1,000,000 mcg in 100 mls @ 2.493 mls/hr 10/01/17 12:30 10/07/17 06: 00 Diprivan - IVPB 34.89 mcg/kg/min TITR [facility] 17.4 mls/hr Protocol Titration 5 MCG/KG/MIN Metoprolol Tartrate 5 mg 10/02/17 16:47 10/05/17 22:00 Lopressor Injection - IVPUSH 5 mg Q6H PRN Administration HYPERTENSION Metoprolol Tartrate 25 mg 10/05/17 08:14 10/06/17 21:02 Lopressor - PEG 25 mg BID [facility] Administration Multivitamins/Minerals 1 each 09/02/17 10:00 10/06/17 09:06 Theragran-M PO 1 each DAILY [facility] Administration Mupirocin 1 applic 09/23/17 10:00 10/06/17 21:01 Bactroban 2% Cream - TP 1 applic BID [facility] Administration Sevelamer Carbonate 0.8 gm 10/05/17 08:16 10/06/17 17:25 Renvela Powder Packet - PEG 0.8 gm TIDCM [facility] Administration Thiamine HCl 100 mg 09/02/17 10:00 10/06/17 09:06 Vitamin B1 - PO 100 mg DAILY [facility] Administration CXR 10/07: previously noted bilateral pulmonary and pleural changes persist on the left and have diminished slightly on the right. Remainder of study is unchanged since 10/06. ASSESSMENT/PLAN: 66yo man with PMH of EtOH abuse and HTN who is admitted (08/31) for acute hypoxic respiratory failure requiring mechanical ventilation (09/02-09/19, 09/24- , 10/01-). Continues to have cavitary PNA with loculated effusions bilaterally and acute thoracic osteomyletitis (T9-T10), currently on Vancomycin (renally dosed). Renal function improving, and maintaining UOP. ICU team discussing with patient need for tracheostomy as this is 3rd intubation. s/p PEG , which GI has cleared for use today. #sepsis 2/2 cavitary PNA, acute osteomyelitis, s/p MSSA bacteremia -ID following, long-term abx needed for acute osteomyelitis (6-8 wks), antibiotics day#31 -Vancomycin 500mg IV (dosed renally); check Random Vanc level daily #acute hypoxic respiratory failure -Vent mgmt per ICU team -Dr. Earl planning trach on Saturday #ARF, Renal following, still considering HD, renal function slight improvement today -Ferrous Sulfate 325 mg PEG DAILY and Sevelamer Carbonate (Renvela) 800 mg PEG TID -Strict I&Os, hines, Renal dose for meds #Acute blood loss anemia -s/p 7Ux PRBCs, Hgb stable at 7.9 today, no further bleeds -Trend H&H, transfuse Hgb<7 #Atrial fibrillation - recurrent episode last night, started on amio gtt -Cardiology following -continue Amiodarone 200mg PEG qd for rate control -hold AC now given co-morbidities (CHADVASC 2) #Chronic Diastolic heart failure -ECHO 09/02/2017 probable preserved LV function, but can't R/O regional wall motion abnormality -Metoprolol 25mg PEG BID and 5mg IV Q6H PRN -consider hydralazine prn #EtOH abuse -Monitor for signs of EtOH withdrawal, unlikely at this point in hospitalization -MVI, thiamine 100mg PEG qd, folic acid 1mg PEG daily #FEN -No current standing fluids -hyperPhos noted, continue Sevelamer TID -Enteral feeds via PEG with free water flushes #PPX -Heparin 5000U SQ TID -GI - pepcid 20mg IV BID #Dispo: continue ICU monitoring FULL code If discharged on trach, try to attain [facility] Visit type - Emergency Visit Emergency Visit: No - New Patient This patient is new to me today: Yes Date on this admission: 10/07/17 - Critical Care Critical Care patient: Yes Total Critical Care Time (in minutes): 30 Critical Care Statement: The care of this patient involved high complexity decision making to prevent further life threatening deterioration of the patient 's condition and/or to evaluate & treat vital organ system(s) failure or risk of failure.
[2017-10-07 08:26] LABS: C-REACTIVE PROTEIN 2.7 MG/DL (0.00-0.3)
[2017-10-07 08:40] LABS: MAGNESIUM 1.8 mg/dL (1.8-2.4)
[2017-10-07] MEDS: SEVELAMER CARBONATE 0.8 GM POWDER PACKET PEG SCH ×3 (09:00→18:10)
[2017-10-07] MEDS: AMIODARONE HCL 200 MG TABLET (FP) PEG SCH (09:17)
[2017-10-07] MEDS: FAMOTIDINE 20 MG/50 ML IVPB 20 MG/50 ML MG IVPB SCH ×2 (09:17→21:33)
[2017-10-07] MEDS: FOLIC ACID 1 MG TABLET (FP) PO SCH (09:18)
[2017-10-07] MEDS: FERROUS SO4 325 MG TABLET (FP) PO SCH (09:18)
[2017-10-07] MEDS: THIAMINE HCL 100 MG TABLET (FP) PO SCH (09:18)
[2017-10-07] MEDS: METOPROLOL TARTRATE 25 MG TABLET (FP) PEG SCH ×2 (09:18→21:34)
[2017-10-07] MEDS: HEPARIN NA (PORCINE) 5,000 UNITS/ML 1ML VIAL SQ SCH ×2 (09:18→21:34)
[2017-10-07] MEDS: CHLORHEXIDINE GLUCONATE 0.12% 15ML CUP MM SCH ×2 (09:19→21:34)
[2017-10-07] MEDS: MULTIVITAMINS THER W-MINERALS COMBO TABLET (FP) PO SCH (09:22)
[2017-10-07] MEDS: MUPIROCIN CA 2% TOPICAL CREAM 15 GM TUBE TP SCH ×2 (09:23→21:34)
--- NOTE | 2017-10-07 10:34 | PN ---
Progress Note, Physician History of Present Illness: WBC 12 afebrile. tmax 99.8. No events. PEG intact, no bleeding. Tolerating tube feeding - Current Medication List Current Medications: Active Medications Acetaminophen (Tylenol -) 650 mg NR Q6H PRN PRN Reason: FEVER OR PAIN Last Admin: 09/16/17 18:27 Dose: 650 mg Amiodarone HCl (Cordarone -) 200 mg PEG DAILY [facility] Last Admin: 10/07/17 09:17 Dose: 200 mg Chlorhexidine Gluconate (Peridex -) 15 ml MM BID [facility] Last Admin: 10/07/17 09:19 Dose: 15 ml Ferrous Sulfate (Feosol -) 325 mg PO DAILY [facility] Last Admin: 10/07/17 09:18 Dose: 325 mg Folic Acid (Folic Acid -) 1 mg PO DAILY [facility] Last Admin: 10/07/17 09:18 Dose: 1 mg Heparin Sodium (Porcine) (Heparin -) 5,000 unit SQ BID [facility] Last Admin: 10/07/17 09:18 Dose: 5,000 unit Famotidine/Sodium Chloride (Pepcid 20 Mg Premixed Ivpb -) 20 mg in 50 mls @ 100 mls/hr IVPB BID [facility] Last Admin: 10/07/17 09:17 Dose: 100 mls/hr Propofol (Diprivan -) 1,000,000 mcg in 100 mls @ 2.493 mls/hr IVPB TITR [facility]; 5 MCG/KG/MIN PRN Reason: Protocol Last Titration: 10/07/17 06:00 Dose: 34.89 mcg/kg/min, 17.4 mls/hr Metoprolol Tartrate (Lopressor Injection -) 5 mg IVPUSH Q6H PRN PRN Reason: HYPERTENSION Last Admin: 10/05/17 22:00 Dose: 5 mg Metoprolol Tartrate (Lopressor -) 25 mg PEG BID [facility] Last Admin: 10/07/17 09:18 Dose: 25 mg Multivitamins/Minerals (Theragran-M) 1 each PO DAILY [facility] Last Admin: 10/07/17 09:22 Dose: 1 each Mupirocin (Bactroban 2% Cream -) 1 applic TP BID [facility] Last Admin: 10/07/17 09:23 Dose: 1 applic Sevelamer Carbonate (Renvela Powder Packet -) 0.8 gm PEG TIDCM [facility] Last Admin: 11/20/17 09:00 Dose: 0.8 gm Thiamine HCl (Vitamin B1 -) 100 mg PO DAILY [facility] Last Admin: 10/07/17 09:18 Dose: 100 mg - Objective Vital Signs: Vital Signs Temperature 99.5 F 10/07/17 06:00 Pulse Rate 81 10/07/17 09:38 Respiratory Rate 36 H 10/07/17 09:39 Blood Pressure 146/98 10/07/17 08:00 O2 Sat by Pulse Oximetry (%) 100 10/07/17 09:39 Gastrointestinal: Yes: Normal Bowel Sounds, Soft. No: Melena, Rectal Bleeding, Tenderness, Vomiting Neurological: Yes: Lethargy Labs: CBC, BMP 10/07/17 05:25 10/07/17 05:25 INR, PTT INR 1.14 (0.82-1.09) D 10/03/17 05:22 Laboratory Results - last 24 hr 10/07/17 10/07/17 10/07/17 05:25 05:25 05:25 WBC 12.1 H RBC 2.64 L Hgb 7.9 L Hct 22.8 L MCV 86.6 MCH 30.1 MCHC 34.7 RDW 18.0 H Plt Count 203 MPV 7.1 L Sodium 140 Potassium 3.9 Chloride 110 H Carbon Dioxide 19 L Anion Gap 11 BUN 87 H Creatinine 3.8 H Creat Clearance w eGFR 15.92 Random Glucose 110 H Calcium 8.3 L Phosphorus 5.0 H Magnesium 1.8 Total Bilirubin 0.6 AST 25 ALT 11 L D Alkaline Phosphatase 120 H C-Reactive Protein 2.7 H D Total Protein 6.9 Albumin 2.0 L Random Vancomycin 17.173 10/07/17 05:25 WBC RBC Hgb Hct MCV MCH MCHC RDW Plt Count MPV Sodium Potassium Chloride Carbon Dioxide Anion Gap BUN Creatinine Creat Clearance w eGFR Random Glucose Calcium Phosphorus Magnesium Total Bilirubin AST ALT Alkaline Phosphatase C-Reactive Protein Cancelled Total Protein Albumin Random Vancomycin Problem List - Problems (1) Failure to thrive in adult Code(s): R62.7 - ADULT FAILURE TO THRIVE (2) Respiratory failure with hypoxia Code(s): J96.91 - RESPIRATORY FAILURE, UNSPECIFIED WITH HYPOXIA Qualifiers: Chronicity: acute Qualified Code(s): J96.01 - Acute respiratory failure with hypoxia (3) Staphylococcus aureus bacteremia Code(s): R78.81 - BACTEREMIA (4) History of alcohol abuse Code(s): Z87.898 - PERSONAL HISTORY OF OTHER SPECIFIED CONDITIONS (5) Gastric ulcer Code(s): K25.9 - GASTRIC ULCER, UNSP ACUTE OR CHRONIC, W/O HEMOR OR PERF (6) Rectal bleeding Code(s): K62.5 - HEMORRHAGE OF ANUS AND RECTUM Assessment/Plan PEG care as per protocol will sign off. Please recall if needed.
--- NOTE | 2017-10-07 11:43 | PN ---
Progress Note, Physician History of Present Illness: Remains sedated on vent for recurrent respiratory failure, post PEG placement, planned for trach, awaiting informed consent from daughter. - Current Medication List Current Medications: Active Medications Acetaminophen (Tylenol -) 650 mg NR Q6H PRN PRN Reason: FEVER OR PAIN Last Admin: 09/16/17 18:27 Dose: 650 mg Amiodarone HCl (Cordarone -) 200 mg PEG DAILY [facility] Last Admin: 10/07/17 09:17 Dose: 200 mg Chlorhexidine Gluconate (Peridex -) 15 ml MM BID [facility] Last Admin: 10/07/17 09:19 Dose: 15 ml Ferrous Sulfate (Feosol -) 325 mg PO DAILY [facility] Last Admin: 10/07/17 09:18 Dose: 325 mg Folic Acid (Folic Acid -) 1 mg PO DAILY [facility] Last Admin: 10/07/17 09:18 Dose: 1 mg Heparin Sodium (Porcine) (Heparin -) 5,000 unit SQ BID [facility] Last Admin: 10/07/17 09:18 Dose: 5,000 unit Famotidine/Sodium Chloride (Pepcid 20 Mg Premixed Ivpb -) 20 mg in 50 mls @ 100 mls/hr IVPB BID [facility] Last Admin: 10/07/17 09:17 Dose: 100 mls/hr Propofol (Diprivan -) 1,000,000 mcg in 100 mls @ 2.493 mls/hr IVPB TITR [facility]; 5 MCG/KG/MIN PRN Reason: Protocol Last Titration: 10/07/17 06:00 Dose: 34.89 mcg/kg/min, 17.4 mls/hr Metoprolol Tartrate (Lopressor Injection -) 5 mg IVPUSH Q6H PRN PRN Reason: HYPERTENSION Last Admin: 10/05/17 22:00 Dose: 5 mg Metoprolol Tartrate (Lopressor -) 25 mg PEG BID [facility] Last Admin: 10/07/17 09:18 Dose: 25 mg Multivitamins/Minerals (Theragran-M) 1 each PO DAILY [facility] Last Admin: 10/07/17 09:22 Dose: 1 each Mupirocin (Bactroban 2% Cream -) 1 applic TP BID [facility] Last Admin: 10/07/17 09:23 Dose: 1 applic Sevelamer Carbonate (Renvela Powder Packet -) 0.8 gm PEG TIDCM [facility] Last Admin: 11/20/17 09:00 Dose: 0.8 gm Thiamine HCl (Vitamin B1 -) 100 mg PO DAILY [facility] Last Admin: 10/07/17 09:18 Dose: 100 mg - Objective Vital Signs: Vital Signs Temperature 99.5 F 10/07/17 06:00 Pulse Rate 81 10/07/17 09:38 Respiratory Rate 23 10/07/17 11:23 Blood Pressure 146/98 10/07/17 08:00 O2 Sat by Pulse Oximetry (%) 100 10/07/17 09:39 Constitutional: Yes: No Distress, Calm Neck: Yes: Supple Cardiovascular: Yes: Regular Rate and Rhythm Respiratory: Yes: Diminished, Intubated, Mechanically Ventilated, Rhonchi Gastrointestinal: Yes: Normal Bowel Sounds, Soft Edema: No Labs: CBC, BMP 10/07/17 05:25 10/07/17 05:25 INR, PTT INR 1.14 (0.82-1.09) D 10/03/17 05:22 - ....Imaging EKG: Report Reviewed (Tele: NSR with [facility] PAC) Problem List - Problems (1) Respiratory failure with hypoxia Code(s): J96.91 - RESPIRATORY FAILURE, UNSPECIFIED WITH HYPOXIA Qualifiers: Chronicity: acute Qualified Code(s): J96.01 - Acute respiratory failure with hypoxia (2) Pneumonia Code(s): J18.9 - PNEUMONIA, UNSPECIFIED ORGANISM Qualifiers: Pneumonia type: aspiration pneumonia (3) Staphylococcus aureus bacteremia Code(s): R78.81 - BACTEREMIA (5) History of alcohol abuse Code(s): Z87.898 - PERSONAL HISTORY OF OTHER SPECIFIED CONDITIONS (6) Acute kidney injury Code(s): N17.9 - ACUTE KIDNEY FAILURE, UNSPECIFIED (7) Acute diastolic heart failure Code(s): I50.31 - ACUTE DIASTOLIC (CONGESTIVE) HEART FAILURE (8) Anemia Code(s): D64.9 - ANEMIA, UNSPECIFIED Qualifiers: Anemia type: unspecified type Qualified Code(s): D64.9 - Anemia, unspecified (9) Discitis of cervicothoracic region Code(s): M46.43 - DISCITIS, UNSPECIFIED, CERVICOTHORACIC REGION (10) Paroxysmal atrial fibrillation Code(s): I48.0 - PAROXYSMAL ATRIAL FIBRILLATION (11) Rectal ulcer Code(s): K62.6 - ULCER OF ANUS AND RECTUM (12) Status post insertion of percutaneous endoscopic gastrostomy (PEG) tube Code(s): Z93.1 - GASTROSTOMY STATUS Assessment/Plan 1. Paroxysmal atrial fibrillation [id number] score of 2, currently in sinus rhythm not on Eliquis in view of above noted renal insufficiency 2. Acute hypoxic respiratory failure, post re-intubation, pulmonary infiltrates/ pulmonary edema improved 3. Cavitating pneumonia, MSSA bacteremia, post septic shock no evidence of endocarditis by ALISA criteria 4. Diastolic LV dysfunction with class I-II NYHA congestive heart failure, volume overload, resolved 5. 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 Loculated effusion post chest tube insertion 7. History of alcohol dependence 8. Acute renal insufficiency improving 9. Hypernatremia resolved 10. Anemia 11. GI Bleed likely from rectal tube/ulcer PLAN: 1. Vent support, post PEG, enteral feeds with free water repletion, agreed for trach 2. Continue Lopressor 25 bid with IV Lopressor as needed and Amiodarone 200 qd 3. Antibiotic recs per ID service 4. DVT and GI prophylaxis
--- NOTE | 2017-10-07 12:16 | PN ---
Teaching Attending Note Name of Resident: Bel Pelayo ATTENDING PHYSICIAN STATEMENT I saw and evaluated the patient. I reviewed the resident's note and discussed the case with the resident. I agree with the resident's findings and plan as documented. SUBJECTIVE: Pt seen and examined in the ICU. Remains intubated, sedated. No fevers recorded. Vented on volume assist control with 40% FiO2. OBJECTIVE: Last Vital Signs Temp Pulse Resp BP Pulse Ox 99.5 F 81 23 146/98 100 10/07/17 06:00 10/07/17 09:38 10/07/17 11:23 10/07/17 08:00 10/07/17 09:39 Intake & Output 10/04/17 10/05/17 10/06/17 10/07/17 23:59 23:59 23:59 23:59 Intake Total 2500.8 2745 2263 1368 Output Total 1900 3100 1600 500 Balance 600.8 -355 663 868 Weight 183 lb 181 lb 14.102 oz 185 lb 12.8 oz 187 lb 11.2 oz Gen: intubated, sedated Heart: RRR Lung: decreased breath sounds at the bases Abd: soft, nontender Ext: + edema CBC, BMP 10/07/17 05:25 10/07/17 05:25 Active Medications Acetaminophen (Tylenol -) 650 mg NR Q6H PRN PRN Reason: FEVER OR PAIN Last Admin: 09/16/17 18:27 Dose: 650 mg Amiodarone HCl (Cordarone -) 200 mg PEG DAILY [facility] Last Admin: 10/07/17 09:17 Dose: 200 mg Chlorhexidine Gluconate (Peridex -) 15 ml MM BID [facility] Last Admin: 10/07/17 09:19 Dose: 15 ml Ferrous Sulfate (Feosol -) 325 mg PO DAILY [facility] Last Admin: 10/07/17 09:18 Dose: 325 mg Folic Acid (Folic Acid -) 1 mg PO DAILY [facility] Last Admin: 10/07/17 09:18 Dose: 1 mg Heparin Sodium (Porcine) (Heparin -) 5,000 unit SQ BID [facility] Last Admin: 10/07/17 09:18 Dose: 5,000 unit Famotidine/Sodium Chloride (Pepcid 20 Mg Premixed Ivpb -) 20 mg in 50 mls @ 100 mls/hr IVPB BID [facility] Last Admin: 10/07/17 09:17 Dose: 100 mls/hr Propofol (Diprivan -) 1,000,000 mcg in 100 mls @ 2.493 mls/hr IVPB TITR [facility]; 5 MCG/KG/MIN PRN Reason: Protocol Last Titration: 10/07/17 06:00 Dose: 34.89 mcg/kg/min, 17.4 mls/hr Metoprolol Tartrate (Lopressor Injection -) 5 mg IVPUSH Q6H PRN PRN Reason: HYPERTENSION Last Admin: 10/05/17 22:00 Dose: 5 mg Metoprolol Tartrate (Lopressor -) 25 mg PEG BID [facility] Last Admin: 10/07/17 09:18 Dose: 25 mg Multivitamins/Minerals (Theragran-M) 1 each PO DAILY [facility] Last Admin: 10/07/17 09:22 Dose: 1 each Mupirocin (Bactroban 2% Cream -) 1 applic TP BID [facility] Last Admin: 10/07/17 09:23 Dose: 1 applic Sevelamer Carbonate (Renvela Powder Packet -) 0.8 gm PEG TIDCM [facility] Last Admin: 10/07/17 09:00 Dose: 0.8 gm Thiamine HCl (Vitamin B1 -) 100 mg PO DAILY [facility] Last Admin: 10/07/17 09:18 Dose: 100 mg ASSESSMENT AND PLAN: Acute Hypoxic Respiratory Failure Pneumonia MSSA Bacteremia Loculated Pleural Effusions LV Diastolic Dysfunction Paroxysmal Atrial Fibrillation Acute Kidney Injury GI Bleed Acute Blood Loss Anemia - monitor H/H, coags - monitor urine output, creatinine - completed antibiotics - holding heparin gtt - protonix - O2 to keep SpO2 >90% - will need tracheostomy as this is his 3rd intubation this admission likely from aspiration - DVT prophylaxis - continue ICU monitoring - continue discussions regarding goals of care and advanced directives critical care time spent in reviewing chart, evaluating patient and formulating plan 35 min
--- NOTE | 2017-10-07 12:32 | PN ---
Progress Note, Physician History of Present Illness: Pt seen and examined at bedside. He is awake. Pt remains intubated. He is tolerating tube feeds. - Current Medication List Current Medications: Active Medications Acetaminophen (Tylenol -) 650 mg NR Q6H PRN PRN Reason: FEVER OR PAIN Last Admin: 09/16/17 18:27 Dose: 650 mg Amiodarone HCl (Cordarone -) 200 mg PEG DAILY [facility] Last Admin: 10/07/17 09:17 Dose: 200 mg Chlorhexidine Gluconate (Peridex -) 15 ml MM BID [facility] Last Admin: 10/07/17 09:19 Dose: 15 ml Ferrous Sulfate (Feosol -) 325 mg PO DAILY [facility] Last Admin: 10/07/17 09:18 Dose: 325 mg Folic Acid (Folic Acid -) 1 mg PO DAILY [facility] Last Admin: 10/07/17 09:18 Dose: 1 mg Heparin Sodium (Porcine) (Heparin -) 5,000 unit SQ BID [facility] Last Admin: 10/07/17 09:18 Dose: 5,000 unit Famotidine/Sodium Chloride (Pepcid 20 Mg Premixed Ivpb -) 20 mg in 50 mls @ 100 mls/hr IVPB BID [facility] Last Admin: 10/07/17 09:17 Dose: 100 mls/hr Propofol (Diprivan -) 1,000,000 mcg in 100 mls @ 2.493 mls/hr IVPB TITR [facility]; 5 MCG/KG/MIN PRN Reason: Protocol Last Titration: 10/07/17 06:00 Dose: 34.89 mcg/kg/min, 17.4 mls/hr Metoprolol Tartrate (Lopressor Injection -) 5 mg IVPUSH Q6H PRN PRN Reason: HYPERTENSION Last Admin: 10/05/17 22:00 Dose: 5 mg Metoprolol Tartrate (Lopressor -) 25 mg PEG BID [facility] Last Admin: 10/07/17 09:18 Dose: 25 mg Multivitamins/Minerals (Theragran-M) 1 each PO DAILY [facility] Last Admin: 10/07/17 09:22 Dose: 1 each Mupirocin (Bactroban 2% Cream -) 1 applic TP BID [facility] Last Admin: 10/07/17 09:23 Dose: 1 applic Sevelamer Carbonate (Renvela Powder Packet -) 0.8 gm PEG TIDCM [facility] Last Admin: 10/07/17 09:00 Dose: 0.8 gm Thiamine HCl (Vitamin B1 -) 100 mg PO DAILY [facility] Last Admin: 10/07/17 09:18 Dose: 100 mg - Objective Vital Signs: Vital Signs Temperature 99.5 F 10/07/17 06:00 Pulse Rate 81 10/07/17 09:38 Respiratory Rate 23 10/07/17 11:23 Blood Pressure 146/98 10/07/17 08:00 O2 Sat by Pulse Oximetry (%) 100 10/07/17 09:39 Constitutional: Yes: Calm Eyes: Yes: Conjunctiva Clear HENT: Yes: Atraumatic Cardiovascular: Yes: S1, S2 Respiratory: Yes: Mechanically Ventilated Gastrointestinal: Yes: Other (peg) Genitourinary: Yes: Freeman Present Musculoskeletal: Yes: Muscle Weakness Edema: Yes Edema: LUE: 1+, RUE: 1+, LLE: Trace, RLE: Trace Wound/Incision: Yes: Dressing Dry and Intact Neurological: Yes: Other (awake) Labs: CBC, BMP 10/07/17 05:25 10/07/17 05:25 INR, PTT INR 1.14 (0.82-1.09) D 10/03/17 05:22 - ....Imaging Chest X-ray: Report Reviewed Problem List - Problems (1) Abuse, drug or alcohol Code(s): F19.10 - OTHER PSYCHOACTIVE SUBSTANCE ABUSE, UNCOMPLICATED (2) Withdrawal symptoms, alcohol Code(s): F10.239 - ALCOHOL DEPENDENCE WITH WITHDRAWAL, UNSPECIFIED Qualifiers: Complication of substance-induced condition: uncomplicated Qualified Code(s ): F10.230 - Alcohol dependence with withdrawal, uncomplicated (3) Hyponatremia Code(s): E87.1 - HYPO-OSMOLALITY AND HYPONATREMIA (4) Respiratory failure with hypoxia Code(s): J96.91 - RESPIRATORY FAILURE, UNSPECIFIED WITH HYPOXIA Qualifiers: Chronicity: acute Qualified Code(s): J96.01 - Acute respiratory failure with hypoxia (5) Staphylococcus aureus bacteremia Code(s): R78.81 - BACTEREMIA (6) Acute kidney injury Code(s): N17.9 - ACUTE KIDNEY FAILURE, UNSPECIFIED (7) Anemia Code(s): D64.9 - ANEMIA, UNSPECIFIED Qualifiers: Anemia type: unspecified type Qualified Code(s): D64.9 - Anemia, unspecified Assessment/Plan Current Medications Generic Name Dose Route Start Last Admin Trade Name Freq PRN Reason Stop Dose Admin Acetaminophen 650 mg 09/07/17 05:53 09/16/17 18:27 Tylenol - NR 650 mg Q6H PRN Administration FEVER OR PAIN Amiodarone HCl 200 mg 10/04/17 16:45 10/07/17 09:17 Cordarone - PEG 200 mg DAILY [facility] Administration Chlorhexidine Gluconate 15 ml 09/08/17 12:30 10/07/17 09:19 Peridex - MM 15 ml BID [facility] Administration Ferrous Sulfate 325 mg 09/05/17 12:00 10/07/17 09:18 Feosol - PO 325 mg DAILY [facility] Administration Folic Acid 1 mg 09/02/17 10:00 10/07/17 09:18 Folic Acid - PO 1 mg DAILY [facility] Administration Heparin Sodium (Porcine) 5,000 unit 10/04/17 22:00 10/07/17 09:18 Heparin - SQ 5,000 unit BID [facility] Administration Famotidine/Sodium Chloride 20 mg in 50 mls @ 100 mls/hr 09/28/17 10:00 09:17 Pepcid 20 Mg Premixed Ivpb - IVPB 100 mls/hr BID [facility] Administration Propofol 1,000,000 mcg in 100 mls @ 2.493 mls/hr 10/01/17 12:30 10/07/17 06: 00 Diprivan - IVPB 34.89 mcg/kg/min TITR [facility] 17.4 mls/hr Protocol Titration 5 MCG/KG/MIN Metoprolol Tartrate 5 mg 10/02/17 16:47 10/05/17 22:00 Lopressor Injection - IVPUSH 5 mg Q6H PRN Administration HYPERTENSION Metoprolol Tartrate 25 mg 10/05/17 08:14 10/07/17 09:18 Lopressor - PEG 25 mg BID [facility] Administration Multivitamins/Minerals 1 each 09/02/17 10:00 10/07/17 09:22 Theragran-M PO 1 each DAILY [facility] Administration Mupirocin 1 applic 09/23/17 10:00 10/07/17 09:23 Bactroban 2% Cream - TP 1 applic BID [facility] Administration Sevelamer Carbonate 0.8 gm 10/05/17 08:16 10/07/17 09:00 Renvela Powder Packet - PEG 0.8 gm TIDCM [facility] Administration Thiamine HCl 100 mg 09/02/17 10:00 10/07/17 09:18 Vitamin B1 - PO 100 mg DAILY [facility] Administration Impression 1. ALEXANDRA 2. fluid overload 3. hypoalbuminemia 4. respiratory failure requiring intubation 5. anemia 6. etoh abuse 7. fevers 8. hypokalemia 9. pleural effusion 10. hypernatremia 11. GI bleed 12. rash Plan - renal function has been improving - sodium level is stable - pt is tolerating feeds - pending trache - cont to monitor renal function - cont to monitor sodium - may have to adjust free water with feeds, will follow - cont vent support - awaiting renal recovery - daughter's number: Emelina [phone]. - ALEXANDRA is multifactorial - monitor pulse ox - keep pt in ICU - will follow Dr Peres
[2017-10-07] MEDS: PROPOFOL 1,000,000 MCG/100 ML VIAL IVPB SCH (12:45)
--- NOTE | 2017-10-07 13:44 | CONS ---
DATE OF CONSULTATION: 10/04/2017 REFERRING PHYSICIAN: Rickey Griffin MD HISTORY OF PRESENT ILLNESS: The patient is a 67-year-old man who was seen in rehabilitation evaluation with chief complaint of weakness and deficits in mobility. The patient had been admitted on August 31, 2017 and has had an extremely abimael hospital course including respiratory failure and intubation. The patient recently was able to be taken off the ventilator, but other diagnoses include pneumonia, MSSA bacteremia, loculated pleural effusion, left ventricular diastolic dysfunction, paroxysmal atrial fibrillation, acute kidney injury, GI bleed, and acute blood loss anemia. The patient currently remains in the ICU and is noted to be extremely weak. He is not on any steroids. He is able to converse. He is maintained on subcutaneous heparin for deep vein thrombosis prophylaxis. His most recent blood work as of October 04, WBC is elevated at 13.5, hemoglobin low at 7.1, platelet count 176. Chemistry as of October 04 patient had elevated sodium of 152, elevated BUN 112, creatinine 4.6 but improved somewhat over previous studies. He also has other electrolyte abnormalities. Albumin is low at 2.2. The patient apparently was premorbidly completely independent, ambulatory with possibly assistive device such as a straight cane but very functional. PAST MEDICAL AND SURGICAL HISTORY: Please refer to medical record for details but most of this was taken from his medical record including pneumothorax with multiple rib fractures, alcohol abuse, hypertension. SOCIAL HISTORY: Lives in an apartment. Again, premorbidly was able to function but currently functioning is totally dependent. He has a prior history of alcohol abuse. Former tobacco user. REVIEW OF SYSTEMS: Mainly significant for weakness but no complaints of lightheadedness or dizziness. No blurry vision or double vision. No nausea or vomiting, difficulty swallowing, difficulty chewing. No chest pain, shortness of breath. No fever, chills. No numbness or tingling in the upper or lower extremities. Per his medical record, he has a few steps to get to a room that he rents and premorbidly used a straight cane. PHYSICAL EXAMINATION: General: The patient is an overweight man seen lying in bed. He is awake and cooperative but extremely weak. HEENT: Normocephalic and atraumatic. His extraocular muscles appear intact. He can answer questions yes and no but has difficulty speaking due to respiratory failure. He mouths words. Extremities: Without any calf tenderness. Skin: Without any rash or breakdown. Neuromuscular: Awake and alert. He seems oriented x3. His cranial nerves appear grossly intact. He has got better distal strength than proximal ribbon hand at least 4/5 dorsiflexion, at least 3+/5 to 4-/5 but proximally he has got extreme weakness 0-1 in the shoulder girdle and hip flexors. Knee extensors 1/5-2/5 as are elbow flexors 2/5-3/5. He has normal sensation to pinprick. Light touch depressed but symmetric reflexes. Toes equivocal. OVERALL IMPRESSION: 1. Deficits in mobility and activities of daily living, which are multifactorial. 2. Severe weakness most likely due to deconditioning in discussion with Dr. Griffin but cannot rule out critical illness, myopathy contributing, or disuse. 3. History of alcohol abuse. 4. Respiratory failure.5. Pneumonia. 6. Methicillin-susceptible Staphylococcus aureus bacteremia. 7. Diastolic dysfunction. 8. Paroxysmal atrial fibrillation. 9. Anemia. 10. Kidney injury. 11. Increased body mass index. 12. History of hypertension. PLAN/SUGGEST: 1. Bedside physical therapy for range of motion, isometric strengthening progressing to PREs. When able, bed mobility, transfers, and gait if appropriate. 2. Discussed with nursing who continues to provide range of motion daily. 3. Skin precautions. 4. Subcutaneous heparin for DVT prophylaxis. 5. Monitor hemoglobin. 6. Consider nutritional support if not already addressed. 7. Monitor bowels. 8. Patient will most likely need extensive inpatient rehabilitation prior to returning home. Consider short-term rehabilitation in a intermediate facility. MARLENE NICHOLAS M.D. [id number]
--- NOTE | 2017-10-07 14:06 | PN ---
Progress Note, CLIENT ACCOUNT MANAGER - Note Progress Note: New communication board constructed and goals reviewed with staff regarding maximizing communication when pt is alert.
--- NOTE | 2017-10-07 14:11 | PN ---
Physical Exam: SUBJECTIVE: The patient is a 67M with a PMH of EtOH abuse and HTN. The patient has had multiple intubations during his ICU stay and is currently on his third intubation, being sedated with propofol. The patient is currently intubated. However, we have spoken with his daughter who agrees for a tracheostomy. OBJECTIVE: Vital Signs Period Temp Pulse Resp BP Sys/Jeff Pulse Ox Last 24 Hr 98.9 F-99.5 F 77-99 14-36 107-156/67-98 97-100 GENERAL: The patient is awake, alert, and fully oriented, in no acute distress. HEAD: Normal with no signs of trauma. EYES: PERRL, extraocular movements intact, sclera anicteric, conjunctiva clear. No ptosis. ENT: Ears normal, nares patent, oropharynx clear without exudates, moist mucous membranes. NECK: Trachea midline, full range of motion, supple. LUNGS: Breath sounds equal, clear to auscultation bilaterally, no wheezes, no crackles, no accessory muscle use. HEART: Regular rate and rhythm, S1, S2 without murmur, rub or gallop. ABDOMEN: Soft, nontender, nondistended, normoactive bowel sounds, no guarding, no rebound, no hepatosplenomegaly, no masses. EXTREMITIES: 2+ pulses, warm, well-perfused, no edema. NEUROLOGICAL: Cranial nerves II through XII grossly intact. Normal speech, gait not observed. PSYCH: Normal mood, normal affect. SKIN: Warm, dry, normal turgor, no rashes or lesions noted Laboratory Results - last 24 hr 10/04/17 10/04/17 10/04/17 05:44 11:31 23:07 WBC RBC Hgb Hct MCV MCH MCHC RDW Plt Count MPV Sodium Potassium Chloride Carbon Dioxide Anion Gap BUN Creatinine Creat Clearance w eGFR POC Glucometer 125.57068 122.94924 119.93399 Random Glucose Calcium Phosphorus Magnesium Total Bilirubin AST ALT Alkaline Phosphatase C-Reactive Protein Total Protein Albumin Random Vancomycin 10/05/17 10/05/17 10/05/17 05:31 17:50 21:10 WBC RBC Hgb Hct MCV MCH MCHC RDW Plt Count MPV Sodium Potassium Chloride Carbon Dioxide Anion Gap BUN Creatinine Creat Clearance w eGFR POC Glucometer 124.52513 133.51399 123.08057 Random Glucose Calcium Phosphorus Magnesium Total Bilirubin AST ALT Alkaline Phosphatase C-Reactive Protein Total Protein Albumin Random Vancomycin 10/06/17 10/06/17 10/07/17 05:39 19:04 05:25 WBC RBC Hgb Hct MCV MCH MCHC RDW Plt Count MPV Sodium Potassium Chloride Carbon Dioxide Anion Gap BUN Creatinine Creat Clearance w eGFR POC Glucometer 132.18969 120.78130 Random Glucose Calcium Phosphorus Magnesium Total Bilirubin AST ALT Alkaline Phosphatase C-Reactive Protein Total Protein Albumin Random Vancomycin 17.173 10/07/17 10/07/17 10/07/17 05:25 05:25 05:25 WBC 12.1 H RBC 2.64 L Hgb 7.9 L Hct 22.8 L MCV 86.6 MCH 30.1 MCHC 34.7 RDW 18.0 H Plt Count 203 MPV 7.1 L Sodium 140 Potassium 3.9 Chloride 110 H Carbon Dioxide 19 L Anion Gap 11 BUN 87 H Creatinine 3.8 H Creat Clearance w eGFR 15.92 POC Glucometer Random Glucose 110 H Calcium 8.3 L Phosphorus 5.0 H Magnesium 1.8 Total Bilirubin 0.6 AST 25 ALT 11 L D Alkaline Phosphatase 120 H C-Reactive Protein 2.7 H D Cancelled Total Protein 6.9 Albumin 2.0 L Random Vancomycin Active Medications Generic Name Dose Route Start Last Admin Trade Name Freq PRN Reason Stop Dose Admin Acetaminophen 650 mg 09/07/17 05:53 09/16/17 18:27 Tylenol - NR 650 mg Q6H PRN Administration FEVER OR PAIN Amiodarone HCl 200 mg 10/04/17 16:45 10/07/17 09:17 Cordarone - PEG 200 mg DAILY [facility] Administration Chlorhexidine Gluconate 15 ml 09/08/17 12:30 10/07/17 09:19 Peridex - MM 15 ml BID [facility] Administration Ferrous Sulfate 325 mg 09/05/17 12:00 10/07/17 09:18 Feosol - PO 325 mg DAILY [facility] Administration Folic Acid 1 mg 09/02/17 10:00 10/07/17 09:18 Folic Acid - PO 1 mg DAILY [facility] Administration Heparin Sodium (Porcine) 5,000 unit 10/04/17 22:00 10/07/17 09:18 Heparin - SQ 5,000 unit BID [facility] Administration Famotidine/Sodium Chloride 20 mg in 50 mls @ 100 mls/hr 09/28/17 10:00 09:17 Pepcid 20 Mg Premixed Ivpb - IVPB 100 mls/hr BID [facility] Administration Propofol 1,000,000 mcg in 100 mls @ 2.493 mls/hr 10/01/17 12:30 10/07/17 12: 45 Diprivan - IVPB 34.89 mcg/kg/min TITR [facility] 17.4 mls/hr Protocol Administration 5 MCG/KG/MIN Metoprolol Tartrate 5 mg 10/02/17 16:47 10/05/17 22:00 Lopressor Injection - IVPUSH 5 mg Q6H PRN Administration HYPERTENSION Metoprolol Tartrate 25 mg 10/05/17 08:14 10/07/17 09:18 Lopressor - PEG 25 mg BID [facility] Administration Multivitamins/Minerals 1 each 09/02/17 10:00 10/07/17 09:22 Theragran-M PO 1 each DAILY [facility] Administration Mupirocin 1 applic 09/23/17 10:00 10/07/17 09:23 Bactroban 2% Cream - TP 1 applic BID [facility] Administration Sevelamer Carbonate 0.8 gm 10/05/17 08:16 10/07/17 12:45 Renvela Powder Packet - PEG 0.8 gm TIDCM [facility] Administration Thiamine HCl 100 mg 09/02/17 10:00 10/07/17 09:18 Vitamin B1 - PO 100 mg DAILY [facility] Administration ASSESSMENT/PLAN: Neuro: - Sedated CV: - Recurrent a-fib - Amio 200mg via PEG Pulm: - Acute hypoxic respiratory failure - Intubated - Vent settings: - Assist control - RR: 14 - TV: 450 - FiO2: 40% - PEEP: 5 - Plan for tracheostomy - Sepsis 2/2 cavitary PNA Renal: - ARF - Strict I's and O's - Freeman in place - Renal dose meds : - None GI: - None ID: - PNA - Acute osteomyelitis - Vanc w/ renal dosing Hem/Onc: - Hgb 7.9 from 7.7 - Trend Hgb and transfuse as needed Endocrine: - None PPX: - Heparin GGT FEN (Fluids, electrolytes, nutrition): - PEG tube feeding - NPO midnight on Saturday, Oct 08 Dispo: - Daughter agrees for tracheostomy; will be placed Saturday - Full Code Visit type - Emergency Visit Emergency Visit: Yes ED Registration Date: 08/31/17 Care time: The patient presented to the Emergency Department on the above date and was hospitalized for further evaluation of their emergent condition. - New Patient This patient is new to me today: No - Critical Care Critical Care patient: Yes Total Critical Care Time (in minutes): 50 Critical Care Statement: The care of this patient involved high complexity decision making to prevent further life threatening deterioration of the patient 's condition and/or to evaluate & treat vital organ system(s) failure or risk of failure.
--- NOTE | 2017-10-07 15:42 | PN ---
Teaching Attending Note Name of Resident: Blair White ATTENDING PHYSICIAN STATEMENT I saw and evaluated the patient. I reviewed the resident's note and discussed the case with the resident. I agree with the resident's findings and plan as documented. SUBJECTIVE:intubated/sedated OBJECTIVE: Last Vital Signs Temp Pulse Resp BP Pulse Ox 98.9 F 89 31 H 115/72 100 10/07/17 14:00 10/07/17 14:00 10/07/17 14:00 10/07/17 14:00 10/07/17 09:39 Intake & Output 10/04/17 10/05/17 10/06/17 10/07/17 23:59 23:59 23:59 23:59 Intake Total 2500.8 2745 2263 1368 Output Total 1900 3100 1600 1200 Balance 600.8 -355 663 168 Weight 183 lb 181 lb 14.102 oz 185 lb 12.8 oz 187 lb 11.2 oz General intubated, CV S1 S2 RRR no murmur/rub/gallop Lungs coarse breath sounds anteriorly no crackles Abdomen soft NT/ND Extremities no pedal edema ASSESSMENT AND PLAN: 66 yo M with PMH alcohol abuse, HTN who presented to the ER after being found on the floor. 1. Acute hypoxic respiratory failure- likely due to cavitary PNA. s/p extubated 09/19 and re-intubated and extubated 09/27. re-intubated 10/01. due to tacypnea and hypoxia. full vent support. NPO tomorrow night for trach on sat. crit care on board. 2. Sepsis secondary to cavitary healthcare-associated pneumonia, MSSA bacteremia and vertebral OM- with complicated loculated effusion. s/p chest tube removed. on vanco by level. will need 6-8w abx for OM. CT surgery and ID on board 3. New onset afib-rate controlled. on amio po. anticoagulation on hold due to medical problems. should ideally be on coumadin once improved. 4. Acute kidney injury with hyperphosphatemia-stabilizing. no indication for emergent HD, may require if does not improve. on renelva. Nephrology on board. 5. Anemia- s/p 8 units PRBC this admission. Hgb overall stable. no indication for txn. on iron supplementations. 6. Hypernatremia- dehydration. resolved. cont free water flushes. d/c d5w 7. Hypokalemia-Kcl peg 8. Hypomagnesemia- resolved 9. Hepatic transaminitis- stable. US shows hepatosplenomegaly and fatty infiltration of liver 10. Thrombocytopenia- Secondary to alcohol, splenomegaly. now stable 11. HTN- initially hypotensive. now off pressors. cont medications 12. Continue alcohol dependence- Continue thiamine, folic acid, multivitamin 13. Chronic right subdural hematoma 14. DVT prophylaxis- heparin sq 15. Dysphagia-likely due to weakness. s/p PEG placement 10/03. tolerating feeds. GI on board 16. MICU monitoring. poor overall prognosis. plan for trach on saturday. pt will likely benefit from LTAC facility. The care of this patient involved high complexity decision making to prevent further life threatening deterioration of the patient's condition and/or to evaluate & treat vital organ system(s) failure or risk of failure. 38 mins
--- NOTE | 2017-10-07 16:20 | PN ---
Physical Exam: SUBJECTIVE: Patient seen and examined OBJECTIVE: Vital Signs Period Temp Pulse Resp BP Sys/Jeff Pulse Ox Last 24 Hr 98.9 F-99.5 F 77-99 14-36 107-156/67-98 97-100 GENERAL: The patient is awake, alert, and fully oriented, in no acute distress. HEAD: Normal with no signs of trauma. EYES: PERRL, extraocular movements intact, sclera anicteric, conjunctiva clear. No ptosis. ENT: Ears normal, nares patent, oropharynx clear without exudates, moist mucous membranes. NECK: Trachea midline, full range of motion, supple. LUNGS: Breath sounds equal, clear to auscultation bilaterally, no wheezes, no crackles, no accessory muscle use. HEART: Regular rate and rhythm, S1, S2 without murmur, rub or gallop. ABDOMEN: Soft, nontender, nondistended, normoactive bowel sounds, no guarding, no rebound, no hepatosplenomegaly, no masses. EXTREMITIES: 2+ pulses, warm, well-perfused, no edema. NEUROLOGICAL: Cranial nerves II through XII grossly intact. Normal speech, gait not observed. PSYCH: Normal mood, normal affect. SKIN: Warm, dry, normal turgor, no rashes or lesions noted Laboratory Results - last 24 hr 10/04/17 10/04/17 10/04/17 05:44 11:31 23:07 WBC RBC Hgb Hct MCV MCH MCHC RDW Plt Count MPV Sodium Potassium Chloride Carbon Dioxide Anion Gap BUN Creatinine Creat Clearance w eGFR POC Glucometer 125.09063 122.63739 119.41708 Random Glucose Calcium Phosphorus Magnesium Total Bilirubin AST ALT Alkaline Phosphatase C-Reactive Protein Total Protein Albumin Random Vancomycin 10/05/17 10/05/17 10/05/17 05:31 17:50 21:10 WBC RBC Hgb Hct MCV MCH MCHC RDW Plt Count MPV Sodium Potassium Chloride Carbon Dioxide Anion Gap BUN Creatinine Creat Clearance w eGFR POC Glucometer 124.05865 133.06075 123.46280 Random Glucose Calcium Phosphorus Magnesium Total Bilirubin AST ALT Alkaline Phosphatase C-Reactive Protein Total Protein Albumin Random Vancomycin 10/06/17 10/06/17 10/07/17 05:39 19:04 05:25 WBC RBC Hgb Hct MCV MCH MCHC RDW Plt Count MPV Sodium Potassium Chloride Carbon Dioxide Anion Gap BUN Creatinine Creat Clearance w eGFR POC Glucometer 132.90690 120.59548 Random Glucose Calcium Phosphorus Magnesium Total Bilirubin AST ALT Alkaline Phosphatase C-Reactive Protein Total Protein Albumin Random Vancomycin 17.173 10/07/17 10/07/17 10/07/17 05:25 05:25 05:25 WBC 12.1 H RBC 2.64 L Hgb 7.9 L Hct 22.8 L MCV 86.6 MCH 30.1 MCHC 34.7 RDW 18.0 H Plt Count 203 MPV 7.1 L Sodium 140 Potassium 3.9 Chloride 110 H Carbon Dioxide 19 L Anion Gap 11 BUN 87 H Creatinine 3.8 H Creat Clearance w eGFR 15.92 POC Glucometer Random Glucose 110 H Calcium 8.3 L Phosphorus 5.0 H Magnesium 1.8 Total Bilirubin 0.6 AST 25 ALT 11 L D Alkaline Phosphatase 120 H C-Reactive Protein 2.7 H D Cancelled Total Protein 6.9 Albumin 2.0 L Random Vancomycin Active Medications Generic Name Dose Route Start Last Admin Trade Name Freq PRN Reason Stop Dose Admin Acetaminophen 650 mg 09/07/17 05:53 09/16/17 18:27 Tylenol - NR 650 mg Q6H PRN Administration FEVER OR PAIN Amiodarone HCl 200 mg 10/04/17 16:45 10/07/17 09:17 Cordarone - PEG 200 mg DAILY [facility] Administration Chlorhexidine Gluconate 15 ml 09/08/17 12:30 10/07/17 09:19 Peridex - MM 15 ml BID [facility] Administration Ferrous Sulfate 325 mg 09/05/17 12:00 10/07/17 09:18 Feosol - PO 325 mg DAILY [facility] Administration Folic Acid 1 mg 09/02/17 10:00 10/07/17 09:18 Folic Acid - PO 1 mg DAILY [facility] Administration Heparin Sodium (Porcine) 5,000 unit 10/04/17 22:00 10/07/17 09:18 Heparin - SQ 5,000 unit BID [facility] Administration Famotidine/Sodium Chloride 20 mg in 50 mls @ 100 mls/hr 09/28/17 10:00 09:17 Pepcid 20 Mg Premixed Ivpb - IVPB 100 mls/hr BID [facility] Administration Propofol 1,000,000 mcg in 100 mls @ 2.493 mls/hr 10/01/17 12:30 10/07/17 12: 45 Diprivan - IVPB 34.89 mcg/kg/min TITR [facility] 17.4 mls/hr Protocol Administration 5 MCG/KG/MIN Metoprolol Tartrate 5 mg 10/02/17 16:47 10/05/17 22:00 Lopressor Injection - IVPUSH 5 mg Q6H PRN Administration HYPERTENSION Metoprolol Tartrate 25 mg 10/05/17 08:14 10/07/17 09:18 Lopressor - PEG 25 mg BID [facility] Administration Multivitamins/Minerals 1 each 09/02/17 10:00 10/07/17 09:22 Theragran-M PO 1 each DAILY [facility] Administration Mupirocin 1 applic 09/23/17 10:00 10/07/17 09:23 Bactroban 2% Cream - TP 1 applic BID [facility] Administration Sevelamer Carbonate 0.8 gm 10/05/17 08:16 10/07/17 12:45 Renvela Powder Packet - PEG 0.8 gm TIDCM [facility] Administration Thiamine HCl 100 mg 09/02/17 10:00 10/07/17 09:18 Vitamin B1 - PO 100 mg DAILY [facility] Administration ASSESSMENT/PLAN: Visit type - Emergency Visit Emergency Visit: No - New Patient This patient is new to me today: No - Critical Care Critical Care patient: Yes Total Critical Care Time (in minutes): 30 Critical Care Statement: The care of this patient involved high complexity decision making to prevent further life threatening deterioration of the patient 's condition and/or to evaluate & treat vital organ system(s) failure or risk of failure.
--- NOTE | 2017-10-07 19:52 | PN ---
Progress Note (short form) - Note Progress Note: Was called to see pt because of swollen right arm with redness and dense tissue at Right AC not present previously. Pt has been afebrile. WBC stable over the last several days. Pt denies itching or pain. U/S ordered to r/o cellulitis/phlebitis. Will monitor. If pt develops fever or new increase in WBC, will consider Cx, Abx.
[2017-10-08] MEDS: PROPOFOL 1,000,000 MCG/100 ML VIAL IVPB SCH ×5 (02:05→22:46)
[2017-10-08] MEDS: ACETAMINOPHEN 325 MG TABLET (FP) NR PRN ×2 (06:17→17:16)
--- NOTE | 2017-10-08 06:26 | PN ---
Progress Note (short form) - Note Progress Note: Chief Compliant: Events noted, notes reviewed, remains intubated and sedated, currently in sinus rhythm with APC's History of Present Illness: Seen and examined in the ICU. Events noted, notes reviewed, remains intubated and sedated, currently in sinus rhythm with APC's Remains on Lopressor and Amiodarone As outlined in prior notes Eliquis was D/C and ideally Coumadin is the drug of choice but considering his clinical presentation and co-morbidities including history of alcoholism I do not feel the patient is an appropriate candidate for [place] [facility] A/C Echocardiography dated 09/02/2017 revealed probable preserved LV function, but can't R/O regional wall motion abnormality - Current Medication List Current Medications Acetaminophen (Tylenol -) 650 mg NR Q6H PRN PRN Reason: FEVER OR PAIN Last Admin: 10/08/17 06:17 Dose: 650 mg Amiodarone HCl (Cordarone -) 200 mg PEG DAILY [facility] Last Admin: 10/07/17 09:17 Dose: 200 mg Chlorhexidine Gluconate (Peridex -) 15 ml MM BID [facility] Last Admin: 10/07/17 21:34 Dose: 15 ml Ferrous Sulfate (Feosol -) 325 mg PO DAILY [facility] Last Admin: 10/07/17 09:18 Dose: 325 mg Folic Acid (Folic Acid -) 1 mg PO DAILY [facility] Last Admin: 10/07/17 09:18 Dose: 1 mg Heparin Sodium (Porcine) (Heparin -) 5,000 unit SQ BID [facility] Last Admin: 10/07/17 21:34 Dose: 5,000 unit Famotidine/Sodium Chloride (Pepcid 20 Mg Premixed Ivpb -) 20 mg in 50 mls @ 100 mls/hr IVPB BID [facility] Last Admin: 10/07/17 21:33 Dose: 100 mls/hr Propofol (Diprivan -) 1,000,000 mcg in 100 mls @ 2.493 mls/hr IVPB TITR [facility]; 5 MCG/KG/MIN PRN Reason: Protocol Last Admin: 10/08/17 02:05 Dose: 50 mcg/kg/min, 24.93 mls/hr Metoprolol Tartrate (Lopressor Injection -) 5 mg IVPUSH Q6H PRN PRN Reason: HYPERTENSION Last Admin: 10/05/17 22:00 Dose: 5 mg Metoprolol Tartrate (Lopressor -) 25 mg PEG BID [facility] Last Admin: 10/07/17 21:34 Dose: 25 mg Multivitamins/Minerals (Theragran-M) 1 each PO DAILY [facility] Last Admin: 10/07/17 09:22 Dose: 1 each Mupirocin (Bactroban 2% Cream -) 1 applic TP BID [facility] Last Admin: 10/07/17 21:34 Dose: 1 applic Sevelamer Carbonate (Renvela Powder Packet -) 0.8 gm PEG TIDCM [facility] Last Admin: 10/07/17 18:10 Dose: 0.8 gm Thiamine HCl (Vitamin B1 -) 100 mg PO DAILY [facility] Last Admin: 10/07/17 09:18 Dose: 100 mg Review of systems: Unable to obtain - Objective Vital Signs: Last Vital Signs Temp Pulse Resp BP Pulse Ox 100.3 F H 105 H 25 H 147/94 100 10/08/17 06:00 10/08/17 06:00 10/08/17 06:00 10/08/17 06:00 10/07/17 21:15 Intake & Output 10/05/17 10/06/17 10/07/17 10/08/17 23:59 23:59 23:59 23:59 Intake Total 2745 2263 1988 833 Output Total 3100 1600 1900 600 Balance -355 663 88 233 Weight 181 lb 14.102 oz 185 lb 12.8 oz 187 lb 11.2 oz 189 lb 2.506 oz Neck: Supple Negative JVD Cardiovascular: S1 S2 Regular Rate and Rhythm No Murmurs Respiratory: Bilateral Scattered Rhonchi Gastrointestinal: Soft Benign Normal Bowel Sounds Ext: Edema Labs: CBC and BMP pending from this AM Assessment/Plan ASSESSMENT: 1. Paroxysmal atrial fibrillation [id number] score of 2, currently in sinus rhythm off of Eliquis therapy as outlined above, on Amiodarone therapy 2. Acute hypoxic respiratory failure, post re-intubation, pulmonary infiltrates/ pulmonary edema 3. Cavitating pneumonia, MSSA bacteremia, post septic shock no evidence of endocarditis by ALISA criteria 4. Diastolic LV dysfunction with class I-II NYHA congestive heart failure, compensated 5. Osteomyelitis T9-T10 discitis 6. Loculated effusion post chest tube insertion 7. History of alcohol dependence 8. Acute renal insufficiency 9. Anemia PLAN: 1. Continue Lopressor via NGT, hemodynamics permitting 2. Continue Amiodarone via NGT 3. As outlined above defer [facility] [facility] A/C considering his presentation and co- morbidities, and ideal choice would be Coumadin given his renal function 4. Consider transfusion to maintain Hg equal or > 8.0 5. May require prn Lasix, pending AM blood test 6. Follow CBC and BMP from this AM 7. Ventilator management including proceeding with tracheotomy as per the ICU team Overall poor prognosis Chang Blackwell M.D.
[2017-10-08 07:04] LABS: BASOPHIL 0.3 % (0-2.0); EOSINOPHIL 11.2 % (0-4.5); MCH 29.1 pg (25.7-33.7); MCHC 33.9 g/dl (32.0-35.9); MEAN PLT VOLUME 7.5 fl (7.5-11.1); NEUTROPHILS 76.9 % (42.8-82.8); PLATELET COUNT 212 K/MM3 (134-434); RDW 17.9 % (11.9-15.9); WHITE BLOOD COUNT 15.6 K/mm3 (4.0-10.0)
[2017-10-08 07:35] LABS: ALBUMIN 1.9 g/dl (3.4-5.0); ANION GAP 13 (8-16); BILIRUBIN,TOTAL 0.6 mg/dL (0.2-1.0); CALCIUM 7.7 mg/dL (8.5-10.1); CO2 17 mmol/L (21-32); CREATININE 3.6 mg/dL (0.7-1.3); GLUCOSE,RANDOM 125 mg/dL (74-106); PHOSPHOROUS 4.5 mg/dL (2.5-4.9); SGPT/ALT 13 U/L (12-78)
[2017-10-08 07:36] LABS: ALK PHOS 139 U/L (45-117)
[2017-10-08 07:37] LABS: MAGNESIUM 1.8 mg/dL (1.8-2.4)
[2017-10-08 07:38] LABS: SGOT/AST 24 U/L (15-37)
[2017-10-08] MEDS: SEVELAMER CARBONATE 0.8 GM POWDER PACKET PEG SCH ×3 (08:58→17:16)
[2017-10-08] MEDS: AMIODARONE HCL 200 MG TABLET (FP) PEG SCH (09:06)
[2017-10-08] MEDS: FERROUS SO4 325 MG TABLET (FP) PO SCH (09:06)
[2017-10-08] MEDS: HEPARIN NA (PORCINE) 5,000 UNITS/ML 1ML VIAL SQ SCH ×2 (09:06→21:03)
[2017-10-08] MEDS: FOLIC ACID 1 MG TABLET (FP) PO SCH (09:06)
[2017-10-08] MEDS: METOPROLOL TARTRATE 25 MG TABLET (FP) PEG SCH ×2 (09:06→21:03)
[2017-10-08] MEDS: MULTIVITAMINS THER W-MINERALS COMBO TABLET (FP) PO SCH (09:07)
[2017-10-08] MEDS: THIAMINE HCL 100 MG TABLET (FP) PO SCH (09:07)
[2017-10-08] MEDS: FAMOTIDINE 20 MG/50 ML IVPB 20 MG/50 ML MG IVPB SCH ×2 (09:07→21:03)
[2017-10-08] MEDS: CHLORHEXIDINE GLUCONATE 0.12% 15ML CUP MM SCH ×2 (09:07→21:04)
[2017-10-08 09:10] LABS: URINE APPEARANCE SLCLOUDY; URINE BILIRUBIN NEGATIVE (NEGATIVE); URINE BLOOD 1+ (NEGATIVE); URINE COLOR YELLOW; URINE GLUCOSE (UA) NEGATIVE (NEGATIVE); URINE KETONE NEGATIVE (NEGATIVE); URINE NITRITE NEGATIVE (NEGATIVE); URINE UROBILINOGEN NEGATIVE mg/dL (0.2-1.0)
[2017-10-08 09:29] LABS: URINE PROTEIN 1+ (NEGATIVE)
--- NOTE | 2017-10-08 09:37 | PN ---
Progress Note (short form) - Note Progress Note: NAD sedated low grade temp Vital Signs Period Temp Pulse Resp BP Sys/Jeff Pulse Ox Last 24 Hr 98.8 F-100.5 F 81-106 20-36 107-154/72-97 97-100 remains intubated cor-rrr lungs decreased bs at bases abd soft,nt ext trace edema +hines no central lines diffuse erythema of the arms CBC, BMP 10/08/17 06:00 10/08/17 06:00 11% eos vanco trough 17 yesterday a/p MSSA sepsis-day #32, now on vanco by levels ?interstitial nephritis, plan 6 to 8 weeks of treatment T9/10 discitis persistent eosinophilia- vanco trough ordered today respiratory failure-for trach in am ARF anemia- gi bleed ALISA negative f/u vancomycin trough, redose less than 15
[2017-10-08] MEDS: MUPIROCIN CA 2% TOPICAL CREAM 15 GM TUBE TP SCH ×2 (10:50→21:03)
[2017-10-08 11:28] LABS: URINE BACTERIA FEW /hpf (NONE SEEN); URINE MUCUS RARE; URINE RBC 6 /hpf (0-3); URINE WBC 8 /hpf (3-5); YEAST FEW
--- NOTE | 2017-10-08 12:25 | PN ---
Teaching Attending Note Name of Resident: Vipul Rice ATTENDING PHYSICIAN STATEMENT I saw and evaluated the patient. I reviewed the resident's note and discussed the case with the resident. I agree with the resident's findings and plan as documented. SUBJECTIVE: Pt seen and examined in the ICU. Remains intubated, sedated. Did not tolerate CPAP/PS trial yesterday. Low grade fevers this AM. OBJECTIVE: Last Vital Signs Temp Pulse Resp BP Pulse Ox 100.5 F H 90 32 H 129/88 97 10/08/17 08:34 10/08/17 10:00 10/08/17 12:22 10/08/17 10:00 10/08/17 09:00 Intake & Output 10/05/17 10/06/17 10/07/17 10/08/17 23:59 23:59 23:59 23:59 Intake Total 2745 2263 1988 833 Output Total 3100 1600 1900 600 Balance -355 663 88 233 Weight 181 lb 14.102 oz 185 lb 12.8 oz 187 lb 11.2 oz 189 lb 2.506 oz Gen: intubated, sedated Heart: RRR Lung: scattered rhonchi Abd: soft, nontender Ext: no edema CBC, BMP 10/08/17 06:00 10/08/17 06:00 Active Medications Acetaminophen (Tylenol -) 650 mg NR Q6H PRN PRN Reason: FEVER OR PAIN Last Admin: 10/08/17 06:17 Dose: 650 mg Amiodarone HCl (Cordarone -) 200 mg PEG DAILY [facility] Last Admin: 10/08/17 09:06 Dose: 200 mg Chlorhexidine Gluconate (Peridex -) 15 ml MM BID [facility] Last Admin: 10/08/17 09:07 Dose: 15 ml Ferrous Sulfate (Feosol -) 325 mg PO DAILY [facility] Last Admin: 10/08/17 09:06 Dose: 325 mg Folic Acid (Folic Acid -) 1 mg PO DAILY [facility] Last Admin: 10/08/17 09:06 Dose: 1 mg Heparin Sodium (Porcine) (Heparin -) 5,000 unit SQ BID [facility] Last Admin: 10/08/17 09:06 Dose: 5,000 unit Famotidine/Sodium Chloride (Pepcid 20 Mg Premixed Ivpb -) 20 mg in 50 mls @ 100 mls/hr IVPB BID [facility] Last Admin: 10/08/17 09:07 Dose: 100 mls/hr Propofol (Diprivan -) 1,000,000 mcg in 100 mls @ 2.493 mls/hr IVPB TITR [facility]; 5 MCG/KG/MIN PRN Reason: Protocol Last Admin: 10/08/17 09:04 Dose: 50 mcg/kg/min, 24.93 mls/hr Metoprolol Tartrate (Lopressor Injection -) 5 mg IVPUSH Q6H PRN PRN Reason: HYPERTENSION Last Admin: 10/05/17 22:00 Dose: 5 mg Metoprolol Tartrate (Lopressor -) 25 mg PEG BID [facility] Last Admin: 10/08/17 09:06 Dose: 25 mg Multivitamins/Minerals (Theragran-M) 1 each PO DAILY [facility] Last Admin: 10/08/17 09:07 Dose: 1 each Mupirocin (Bactroban 2% Cream -) 1 applic TP BID [facility] Last Admin: 10/08/17 10:50 Dose: 1 applic Sevelamer Carbonate (Renvela Powder Packet -) 0.8 gm PEG TIDCM [facility] Last Admin: 10/08/17 11:00 Dose: 0.8 gm Thiamine HCl (Vitamin B1 -) 100 mg PO DAILY [facility] Last Admin: 10/08/17 09:07 Dose: 100 mg ASSESSMENT AND PLAN: Acute Hypoxic Respiratory Failure Pneumonia MSSA Bacteremia Loculated Pleural Effusions LV Diastolic Dysfunction Paroxysmal Atrial Fibrillation Acute Kidney Injury GI Bleed Acute Blood Loss Anemia - monitor H/H, coags - monitor urine output, creatinine - completed antibiotics - holding heparin gtt - protonix - O2 to keep SpO2 >90% - for tracheostomy tomorrow as this is his 3rd intubation this admission likely from aspiration - enteral feeds - resume spontaneous breathing trials after tracheostomy - DVT/GI prophylaxis - continue ICU monitoring - continue discussions regarding goals of care and advanced directives - consider LTAC placement critical care time spent in reviewing chart, evaluating patient and formulating plan 35 min
--- NOTE | 2017-10-08 13:31 | PN ---
Progress Note, Physician History of Present Illness: Pt seen and examined at bedside. He remains in the ICU. Pt remains intubated. - Current Medication List Current Medications: Active Medications Acetaminophen (Tylenol -) 650 mg NR Q6H PRN PRN Reason: FEVER OR PAIN Last Admin: 10/08/17 06:17 Dose: 650 mg Amiodarone HCl (Cordarone -) 200 mg PEG DAILY [facility] Last Admin: 10/08/17 09:06 Dose: 200 mg Chlorhexidine Gluconate (Peridex -) 15 ml MM BID [facility] Last Admin: 10/08/17 09:07 Dose: 15 ml Ferrous Sulfate (Feosol -) 325 mg PO DAILY [facility] Last Admin: 10/08/17 09:06 Dose: 325 mg Folic Acid (Folic Acid -) 1 mg PO DAILY [facility] Last Admin: 10/08/17 09:06 Dose: 1 mg Heparin Sodium (Porcine) (Heparin -) 5,000 unit SQ BID [facility] Last Admin: 10/08/17 09:06 Dose: 5,000 unit Famotidine/Sodium Chloride (Pepcid 20 Mg Premixed Ivpb -) 20 mg in 50 mls @ 100 mls/hr IVPB BID [facility] Last Admin: 10/08/17 09:07 Dose: 100 mls/hr Propofol (Diprivan -) 1,000,000 mcg in 100 mls @ 2.493 mls/hr IVPB TITR [facility]; 5 MCG/KG/MIN PRN Reason: Protocol Last Admin: 10/08/17 13:06 Dose: 50 mcg/kg/min, 24.93 mls/hr Metoprolol Tartrate (Lopressor Injection -) 5 mg IVPUSH Q6H PRN PRN Reason: HYPERTENSION Last Admin: 10/05/17 22:00 Dose: 5 mg Metoprolol Tartrate (Lopressor -) 25 mg PEG BID [facility] Last Admin: 10/08/17 09:06 Dose: 25 mg Multivitamins/Minerals (Theragran-M) 1 each PO DAILY [facility] Last Admin: 10/08/17 09:07 Dose: 1 each Mupirocin (Bactroban 2% Cream -) 1 applic TP BID [facility] Last Admin: 10/08/17 10:50 Dose: 1 applic Sevelamer Carbonate (Renvela Powder Packet -) 0.8 gm PEG TIDCM [facility] Last Admin: 10/08/17 11:00 Dose: 0.8 gm Thiamine HCl (Vitamin B1 -) 100 mg PO DAILY [facility] Last Admin: 10/08/17 09:07 Dose: 100 mg - Objective Vital Signs: Vital Signs Temperature 99.1 F 10/08/17 13:16 Pulse Rate 88 10/08/17 13:18 Respiratory Rate 30 H 10/08/17 13:18 Blood Pressure 125/80 10/08/17 13:18 O2 Sat by Pulse Oximetry (%) 97 10/08/17 09:00 Constitutional: Yes: Calm Eyes: Yes: Conjunctiva Clear HENT: Yes: Atraumatic Neck: Yes: Supple Cardiovascular: Yes: S1, S2 Respiratory: Yes: CTA Bilaterally Gastrointestinal: Yes: Soft Genitourinary: Yes: Freeman Present Musculoskeletal: Yes: Muscle Weakness Edema: Yes Edema: LUE: 2+, RUE: 2+ Neurological: Yes: Lethargy Labs: CBC, BMP 10/08/17 06:00 10/08/17 06:00 INR, PTT INR 1.14 (0.82-1.09) D 10/03/17 05:22 - ....Imaging Chest X-ray: Report Reviewed Problem List - Problems (1) Abuse, drug or alcohol Code(s): F19.10 - OTHER PSYCHOACTIVE SUBSTANCE ABUSE, UNCOMPLICATED (2) Withdrawal symptoms, alcohol Code(s): F10.239 - ALCOHOL DEPENDENCE WITH WITHDRAWAL, UNSPECIFIED Qualifiers: Complication of substance-induced condition: uncomplicated Qualified Code(s ): F10.230 - Alcohol dependence with withdrawal, uncomplicated (3) Hyponatremia Code(s): E87.1 - HYPO-OSMOLALITY AND HYPONATREMIA (4) Respiratory failure with hypoxia Code(s): J96.91 - RESPIRATORY FAILURE, UNSPECIFIED WITH HYPOXIA Qualifiers: Chronicity: acute Qualified Code(s): J96.01 - Acute respiratory failure with hypoxia (5) Staphylococcus aureus bacteremia Code(s): R78.81 - BACTEREMIA (6) Acute kidney injury Code(s): N17.9 - ACUTE KIDNEY FAILURE, UNSPECIFIED (7) Anemia Code(s): D64.9 - ANEMIA, UNSPECIFIED Qualifiers: Anemia type: unspecified type Qualified Code(s): D64.9 - Anemia, unspecified Assessment/Plan Current Medications Generic Name Dose Route Start Last Admin Trade Name Freq PRN Reason Stop Dose Admin Acetaminophen 650 mg 09/07/17 05:53 10/08/17 06:17 Tylenol - NR 650 mg Q6H PRN Administration FEVER OR PAIN Amiodarone HCl 200 mg 10/04/17 16:45 10/08/17 09:06 Cordarone - PEG 200 mg DAILY [facility] Administration Chlorhexidine Gluconate 15 ml 09/08/17 12:30 10/08/17 09:07 Peridex - MM 15 ml BID [facility] Administration Ferrous Sulfate 325 mg 09/05/17 12:00 10/08/17 09:06 Feosol - PO 325 mg DAILY [facility] Administration Folic Acid 1 mg 09/02/17 10:00 10/08/17 09:06 Folic Acid - PO 1 mg DAILY [facility] Administration Heparin Sodium (Porcine) 5,000 unit 10/04/17 22:00 10/08/17 09:06 Heparin - SQ 5,000 unit BID [facility] Administration Famotidine/Sodium Chloride 20 mg in 50 mls @ 100 mls/hr 09/28/17 10:00 09:07 Pepcid 20 Mg Premixed Ivpb - IVPB 100 mls/hr BID [facility] Administration Propofol 1,000,000 mcg in 100 mls @ 2.493 mls/hr 10/01/17 12:30 10/08/17 13: 06 Diprivan - IVPB 50 mcg/kg/min TITR [facility] 24.93 mls/hr Protocol Administration 5 MCG/KG/MIN Metoprolol Tartrate 5 mg 10/02/17 16:47 10/05/17 22:00 Lopressor Injection - IVPUSH 5 mg Q6H PRN Administration HYPERTENSION Metoprolol Tartrate 25 mg 10/05/17 08:14 10/08/17 09:06 Lopressor - PEG 25 mg BID [facility] Administration Multivitamins/Minerals 1 each 09/02/17 10:00 10/08/17 09:07 Theragran-M PO 1 each DAILY [facility] Administration Mupirocin 1 applic 09/23/17 10:00 10/08/17 10:50 Bactroban 2% Cream - TP 1 applic BID [facility] Administration Sevelamer Carbonate 0.8 gm 10/05/17 08:16 10/08/17 11:00 Renvela Powder Packet - PEG 0.8 gm TIDCM [facility] Administration Thiamine HCl 100 mg 09/02/17 10:00 10/08/17 09:07 Vitamin B1 - PO 100 mg DAILY [facility] Administration Impression 1. ALEXANDRA 2. fluid overload 3. hypoalbuminemia 4. respiratory failure requiring intubation 5. anemia 6. etoh abuse 7. fevers 8. hypokalemia 9. pleural effusion 10. hypernatremia 11. GI bleed 12. rash Plan - creatinine continues to improve - pt going for trache tomorrow - repeat labs in am - cont feeds for now, NPO past midnight - cont vent support - awaiting renal recovery - daughter's number: Emelina [phone]. - ALEXANDRA is multifactorial - monitor pulse ox - keep pt in ICU - will follow Dr Peres
[2017-10-08 13:43] LABS: URINE LEUK ESTERASE TRACE (NEGATIVE)
--- NOTE | 2017-10-08 14:07 | EKG ---
Test Reason : Blood Pressure : / mmHG Vent. Rate : 089 BPM Atrial Rate : 089 BPM P-R Int : 180 ms QRS Dur : 086 ms QT Int : 364 ms P-R-T Axes : 051 -02 047 degrees QTc Int : 442 ms NORMAL SINUS RHYTHM RSR' V1 NONSPECIFIC T WAVE ABNORMALITY ABNORMAL ECG WHEN COMPARED WITH ECG OF 01-OCT-2017 09:52, PREMATURE VENTRICULAR COMPLEXES ARE NO LONGER PRESENT NONSPECIFIC T WAVE ABNORMALITY, WORSE IN LATERAL LEADS Confirmed by CONNIE REEVES MD ([id number]) on 10/08/2017 2:06:40 PM Referred By: Jayna BARNEY Confirmed By:CONNIE REEVES MD
--- NOTE | 2017-10-08 15:50 | PN ---
Physical Exam: SUBJECTIVE: The patient is a 67M with a PMH of EtOH abuse and HTN. The patient has had multiple intubations during his ICU stay and is currently on his third intubation, being sedated with propofol. The patient is currently intubated. Tracheostomy planned for 10/09/17 at 1300. Patient has no acute complaints. The patient has been spiking a low grade fever. He did not tolerate CPAP mode yesterday and was switched back to AC mode. OBJECTIVE: Vital Signs Period Temp Pulse Resp BP Sys/Jeff Pulse Ox Last 24 Hr 98.8 F-100.5 F 84-106 22-32 107-155/72-97 97-100 GENERAL: The patient is awake, alert, and fully oriented, in no acute distress. HEAD: Normal with no signs of trauma. EYES: PERRL, extraocular movements intact, sclera anicteric, conjunctiva clear. No ptosis. NECK: Trachea midline, full range of motion, supple. LUNGS: Breath sounds equal, clear to auscultation bilaterally, no wheezes, no crackles, no accessory muscle use. HEART: Regular rate and rhythm, S1, S2 without murmur, rub or gallop. ABDOMEN: Soft, nontender, nondistended, normoactive bowel sounds, no guarding, no rebound, no hepatosplenomegaly, no masses. EXTREMITIES: 2+ pulses, warm, well-perfused, no edema. NEUROLOGICAL: Cranial nerves II through XII grossly intact. Gait not observed. PSYCH: Normal mood, normal affect. SKIN: Warm, dry, normal turgor, no rashes or lesions noted Laboratory Results - last 24 hr 10/04/17 10/08/17 10/08/17 22:15 06:00 06:00 WBC 15.6 H RBC 2.55 L Hgb 7.4 L Hct 21.9 L MCV 86.0 MCH 29.1 MCHC 33.9 RDW 17.9 H Plt Count 212 MPV 7.5 Neutrophils % 76.9 Lymphocytes % 5.8 L D Monocytes % 5.8 Eosinophils % 11.2 H Basophils % 0.3 ESR > 130 H Sodium Potassium Chloride Carbon Dioxide Anion Gap BUN Creatinine Creat Clearance w eGFR Random Glucose Lactic Acid Calcium Phosphorus Magnesium Total Bilirubin AST ALT Alkaline Phosphatase Total Protein Albumin Urine Color Urine Appearance Urine pH Ur Specific [place] Urine Protein Urine Glucose (UA) Urine Ketones Urine Blood Urine Nitrite Urine Bilirubin Urine Urobilinogen Ur Leukocyte Esterase Urine RBC Urine Bacteria Urine Mucus Urine Yeast Random Vancomycin Blood Type O NEGATIVE Antibody Screen Negative Crossmatch See Detail 10/08/17 10/08/17 10/08/17 06:00 08:00 09:10 WBC RBC Hgb Hct MCV MCH MCHC RDW Plt Count MPV Neutrophils % Lymphocytes % Monocytes % Eosinophils % Basophils % ESR Sodium 138 Potassium 4.0 Chloride 108 H Carbon Dioxide 17 L Anion Gap 13 BUN 87 H Creatinine 3.6 H Creat Clearance w eGFR 16.95 Random Glucose 125 H Lactic Acid Calcium 7.7 L Phosphorus 4.5 Magnesium 1.8 Total Bilirubin 0.6 AST 24 ALT 13 Alkaline Phosphatase 139 H Total Protein 7.0 Albumin 1.9 L Urine Color Yellow Urine Appearance Slcloudy Urine pH 5.0 Ur Specific [place] 1.012 Urine Protein 1+ H Urine Glucose (UA) Negative Urine Ketones Negative Urine Blood 1+ H Urine Nitrite Negative Urine Bilirubin Negative Urine Urobilinogen Negative Ur Leukocyte Esterase Trace H Urine RBC No Result Required. Urine Bacteria Few Urine Mucus Rare Urine Yeast Few Random Vancomycin 16.277 Blood Type Antibody Screen Crossmatch 10/08/17 09:15 WBC RBC Hgb Hct MCV MCH MCHC RDW Plt Count MPV Neutrophils % Lymphocytes % Monocytes % Eosinophils % Basophils % ESR Sodium Potassium Chloride Carbon Dioxide Anion Gap BUN Creatinine Creat Clearance w eGFR Random Glucose Lactic Acid 0.7 Calcium Phosphorus Magnesium Total Bilirubin AST ALT Alkaline Phosphatase Total Protein Albumin Urine Color Urine Appearance Urine pH Ur Specific [place] Urine Protein Urine Glucose (UA) Urine Ketones Urine Blood Urine Nitrite Urine Bilirubin Urine Urobilinogen Ur Leukocyte Esterase Urine RBC Urine Bacteria Urine Mucus Urine Yeast Random Vancomycin Blood Type Antibody Screen Crossmatch Active Medications Generic Name Dose Route Start Last Admin Trade Name Freq PRN Reason Stop Dose Admin Acetaminophen 650 mg 09/07/17 05:53 10/08/17 06:17 Tylenol - NR 650 mg Q6H PRN Administration FEVER OR PAIN Amiodarone HCl 200 mg 10/04/17 16:45 10/08/17 09:06 Cordarone - PEG 200 mg DAILY [facility] Administration Chlorhexidine Gluconate 15 ml 09/08/17 12:30 10/08/17 09:07 Peridex - MM 15 ml BID [facility] Administration Ferrous Sulfate 325 mg 09/05/17 12:00 10/08/17 09:06 Feosol - PO 325 mg DAILY [facility] Administration Folic Acid 1 mg 09/02/17 10:00 10/08/17 09:06 Folic Acid - PO 1 mg DAILY [facility] Administration Heparin Sodium (Porcine) 5,000 unit 10/04/17 22:00 10/08/17 09:06 Heparin - SQ 5,000 unit BID [facility] Administration Famotidine/Sodium Chloride 20 mg in 50 mls @ 100 mls/hr 09/28/17 10:00 09:07 Pepcid 20 Mg Premixed Ivpb - IVPB 100 mls/hr BID [facility] Administration Propofol 1,000,000 mcg in 100 mls @ 2.493 mls/hr 10/01/17 12:30 10/08/17 13: 06 Diprivan - IVPB 50 mcg/kg/min TITR [facility] 24.93 mls/hr Protocol Administration 5 MCG/KG/MIN Metoprolol Tartrate 5 mg 10/02/17 16:47 10/05/17 22:00 Lopressor Injection - IVPUSH 5 mg Q6H PRN Administration HYPERTENSION Metoprolol Tartrate 25 mg 10/05/17 08:14 10/08/17 09:06 Lopressor - PEG 25 mg BID [facility] Administration Multivitamins/Minerals 1 each 09/02/17 10:00 10/08/17 09:07 Theragran-M PO 1 each DAILY [facility] Administration Mupirocin 1 applic 09/23/17 10:00 10/08/17 10:50 Bactroban 2% Cream - TP 1 applic BID [facility] Administration Sevelamer Carbonate 0.8 gm 10/05/17 08:16 10/08/17 11:00 Renvela Powder Packet - PEG 0.8 gm TIDCM [facility] Administration Thiamine HCl 100 mg 09/02/17 10:00 10/08/17 09:07 Vitamin B1 - PO 100 mg DAILY [facility] Administration ASSESSMENT/PLAN: Neuro: - Mild sedation with propofol, will react to questioning CV: - Recurrent a-fib - Amio 200mg via PEG Pulm: - Acute hypoxic respiratory failure - Intubated - Vent settings: - Assist control - RR: 14 - TV: 450 - FiO2: 40% - PEEP: 5 - Plan for tracheostomy - Sepsis 2/2 cavitary PNA Renal: - ARF - Strict I's and O's - Freeman in place - Renal dose meds : - None GI: - None ID: - PNA, likely secondary to aspiration; loculated effusions seen on CT - Acute osteomyelitis - Low grade fever, will observe and then culture if continues Hem/Onc: - Hgb 7.9 from 7.7 - Trend Hgb and transfuse as needed Endocrine: - None MSK: - U/S of upper extremity shows no DVT PPX: - Heparin GGT FEN (Fluids, electrolytes, nutrition): - PEG tube feeding - NPO midnight on Saturday, Oct 08 Dispo: - Daughter agrees for tracheostomy; will be placed Saturday - Full Code Visit type - Emergency Visit Emergency Visit: Yes ED Registration Date: 08/31/17 Care time: The patient presented to the Emergency Department on the above date and was hospitalized for further evaluation of their emergent condition. - New Patient This patient is new to me today: No - Critical Care Critical Care patient: Yes Total Critical Care Time (in minutes): 45 Critical Care Statement: The care of this patient involved high complexity decision making to prevent further life threatening deterioration of the patient 's condition and/or to evaluate & treat vital organ system(s) failure or risk of failure.
--- NOTE | 2017-10-08 16:02 | PN ---
Teaching Attending Note Name of Resident: Blair White ATTENDING PHYSICIAN STATEMENT Time of evaluation: 9:15 AM I saw and evaluated the patient. I reviewed the resident's note and discussed the case with the resident. I agree with the resident's findings and plan as documented. SUBJECTIVE: Patient seen and examined. intubated, sedated, unable to do ROS. OBJECTIVE: Vital Signs Period Temp Pulse Resp BP Sys/Jeff Pulse Ox Last 24 Hr 98.8 F-100.5 F 84-106 22-32 107-155/72-97 97-100 Intake & Output 10/05/17 10/06/17 10/07/17 10/08/17 23:59 23:59 23:59 23:59 Intake Total 2745 2263 1988 2243 Output Total 3100 1600 1900 1200 Balance -355 039 33 5615 Weight 181 lb 14.102 oz 185 lb 12.8 oz 187 lb 11.2 oz 189 lb 2.506 oz General: intubated, sedated in bed, in no acute distress CVS:S1S2 irregular Chest: poor exam, occasional scattered rales abdomen: soft, obese, NT, positive bowel sounds, PEG in place Extremities: anasarca Skin: generaliezd blanching rash on trunk/extremities Home Medication List Medication Instructions Recorded Confirmed Type Unobtainable [Unobtainable] 08/31/17 08/31/17 History Active Medications Generic Name Dose Route Start Last Admin Trade Name Freq PRN Reason Stop Dose Admin Acetaminophen 650 mg 09/07/17 05:53 10/08/17 06:17 Tylenol - NR 650 mg Q6H PRN Administration FEVER OR PAIN Amiodarone HCl 200 mg 10/04/17 16:45 10/08/17 09:06 Cordarone - PEG 200 mg DAILY [facility] Administration Chlorhexidine Gluconate 15 ml 09/08/17 12:30 10/08/17 09:07 Peridex - MM 15 ml BID [facility] Administration Ferrous Sulfate 325 mg 09/05/17 12:00 10/08/17 09:06 Feosol - PO 325 mg DAILY [facility] Administration Folic Acid 1 mg 09/02/17 10:00 10/08/17 09:06 Folic Acid - PO 1 mg DAILY [facility] Administration Heparin Sodium (Porcine) 5,000 unit 10/04/17 22:00 10/08/17 09:06 Heparin - SQ 5,000 unit BID [facility] Administration Famotidine/Sodium Chloride 20 mg in 50 mls @ 100 mls/hr 09/28/17 10:00 09:07 Pepcid 20 Mg Premixed Ivpb - IVPB 100 mls/hr BID [facility] Administration Propofol 1,000,000 mcg in 100 mls @ 2.493 mls/hr 10/01/17 12:30 10/08/17 13: 06 Diprivan - IVPB 50 mcg/kg/min TITR [facility] 24.93 mls/hr Protocol Administration 5 MCG/KG/MIN Metoprolol Tartrate 5 mg 10/02/17 16:47 10/05/17 22:00 Lopressor Injection - IVPUSH 5 mg Q6H PRN Administration HYPERTENSION Metoprolol Tartrate 25 mg 10/05/17 08:14 10/08/17 09:06 Lopressor - PEG 25 mg BID [facility] Administration Multivitamins/Minerals 1 each 09/02/17 10:00 10/08/17 09:07 Theragran-M PO 1 each DAILY [facility] Administration Mupirocin 1 applic 09/23/17 10:00 10/08/17 10:50 Bactroban 2% Cream - TP 1 applic BID [facility] Administration Sevelamer Carbonate 0.8 gm 10/05/17 08:16 10/08/17 11:00 Renvela Powder Packet - PEG 0.8 gm TIDCM [facility] Administration Thiamine HCl 100 mg 09/02/17 10:00 10/08/17 09:07 Vitamin B1 - PO 100 mg DAILY [facility] Administration Lab Results WBC 15.6 K/mm3 (4.0-10.0) H 10/08/17 06:00 RBC 2.55 M/mm3 (4.00-5.60) L 10/08/17 06:00 Hgb 7.4 GM/dL (11.7-16.9) L 10/08/17 06:00 Hct 21.9 % (35.4-49) L 10/08/17 06:00 MCV 86.0 fl (80-96) 10/08/17 06:00 MCHC 33.9 g/dl (32.0-35.9) 10/08/17 06:00 RDW 17.9 % (11.9-15.9) H 10/08/17 06:00 Plt Count 212 K/MM3 (134-434) 10/08/17 06:00 Sodium 138 mmol/L (136-145) 10/08/17 06:00 Potassium 4.0 mmol/L (3.5-5.1) 10/08/17 06:00 Chloride 108 mmol/L (98-107) H 10/08/17 06:00 Carbon Dioxide 17 mmol/L (21-32) L 10/08/17 06:00 Anion Gap 13 (8-16) 10/08/17 06:00 BUN 87 mg/dL (7-18) H 10/08/17 06:00 Creatinine 3.6 mg/dL (0.7-1.3) H 10/08/17 06:00 Random Glucose 125 mg/dL (74-106) H 10/08/17 06:00 Calcium 7.7 mg/dL (8.5-10.1) L 10/08/17 06:00 Blood Type O NEGATIVE 10/04/17 22:15 Antibody Screen Negative 10/04/17 22:15 INR 1.14 (0.82-1.09) D 10/03/17 05:22 Microbiology 09/22/17 13:45 Blood - Peripheral Venous Blood Culture - Final NO GROWTH AFTER 5 DAYS INCUBATION 09/22/17 13:45 Blood - Peripheral Venous Blood Culture - Final NO GROWTH AFTER 5 DAYS INCUBATION 09/17/17 16:14 Pleural Fluid AFB Smear Concentration - Final 09/17/17 16:14 Pleural Fluid Mycobacterial Culture - Preliminary 09/19/17 10:23 Blood - Peripheral Venous Blood Culture - Final NO GROWTH AFTER 5 DAYS INCUBATION 09/19/17 10:23 Blood - Peripheral Venous Blood Culture - Final NO GROWTH AFTER 5 DAYS INCUBATION 09/19/17 10:00 Leg - Right Lower Gram Stain - Final 09/19/17 10:00 Leg - Right Lower Wound Culture - Final Diphtheroid/Corynebacterium Staphylococcus Coagulase Neg 09/17/17 16:14 Pleural Fluid Gram Stain - Final 09/17/17 16:14 Pleural Fluid Body Fluid Culture - Final NO GROWTH OF AEROBIC ORGANISMS AFTER 48 HOURS INCUBATION 09/17/17 16:14 Pleural Fluid Anaerobic Culture - Final NO ANAEROBES WERE ISOLATED 09/17/17 16:14 Pleural Fluid MAGI Preparation - Preliminary 09/17/17 16:14 Pleural Fluid Fungal Culture - Preliminary 09/12/17 09:20 Blood - Peripheral Venous Blood Culture - Final NO GROWTH AFTER 5 DAYS INCUBATION 09/12/17 09:15 Blood - Peripheral Venous Blood Culture - Final NO GROWTH AFTER 5 DAYS INCUBATION 09/10/17 10:00 Blood - Peripheral Venous Blood Culture - Final NO GROWTH AFTER 5 DAYS INCUBATION 09/10/17 10:00 Blood - Peripheral Venous Blood Culture - Final NO GROWTH AFTER 5 DAYS INCUBATION 09/08/17 05:45 Blood - Peripheral Venous Blood Culture - Final NO GROWTH AFTER 5 DAYS INCUBATION 09/08/17 05:45 Blood - Peripheral Venous Blood Culture - Final NO GROWTH AFTER 5 DAYS INCUBATION 09/10/17 09:35 Sputum - Endotrachea Suction/Ventilator Gram Stain - Final 09/10/17 09:35 Sputum - Endotrachea Suction/Ventilator Sputum Culture - Final Yeast Like Organism 09/08/17 18:07 Pleural Fluid Gram Stain - Final 09/08/17 18:07 Pleural Fluid Body Fluid Culture - Final NO GROWTH OF AEROBIC ORGANISMS AFTER 48 HOURS INCUBATION 09/08/17 18:07 Pleural Fluid Anaerobic Culture - Final NO ANAEROBES WERE ISOLATED 09/10/17 09:35 Urine - Urine Freeman Urine Culture - Final NO GROWTH OBTAINED 09/06/17 11:02 Blood - Peripheral Venous Blood Culture - Final NO GROWTH AFTER 5 DAYS INCUBATION 09/10/17 09:05 Stool Clostridium difficile Antigen (KHRIS) - Final 09/10/17 09:05 Stool Clostridium difficile Toxin Assay - Final 09/08/17 18:00 Pleural Fluid AFB Smear Concentration - Final 09/08/17 18:00 Pleural Fluid Mycobacterial Culture - Preliminary 09/06/17 11:02 Blood - Peripheral Venous Blood Culture - Final Staphylococcus Aureus 09/08/17 18:00 Pleural Fluid MAGI Preparation - Preliminary 09/08/17 18:00 Pleural Fluid Fungal Culture - Preliminary 09/04/17 08:15 Blood - Peripheral Venous Blood Culture - Final NO GROWTH AFTER 5 DAYS INCUBATION 09/04/17 08:00 Blood - Peripheral Venous Blood Culture - Final NO GROWTH AFTER 5 DAYS INCUBATION 09/05/17 21:00 Sputum - Endotrachea Suction/Ventilator Gram Stain - Final 09/05/17 21:00 Sputum - Endotrachea Suction/Ventilator Sputum Culture - Final Yeast Like Organism 09/06/17 10:20 Stool Clostridium difficile Antigen (KHRIS) - Final 09/06/17 10:20 Stool Clostridium difficile Toxin Assay - Final 09/02/17 00:00 Sputum - Endotracheal Suction W/O Vent Gram Stain - Final 09/02/17 00:00 Sputum - Endotracheal Suction W/O Vent Sputum Culture - Final Yeast Like Organism 09/03/17 12:15 Urine - Urine - Catheterized Urine Culture - Final NO GROWTH OBTAINED 09/01/17 05:00 Blood - Peripheral Venous Blood Culture - Final Staphylococcus Aureus 09/01/17 00:01 Blood - Peripheral Venous Blood Culture - Final Staphylococcus Aureus 09/01/17 15:50 Blood - Peripheral Venous Blood Culture - Final Staphylococcus Aureus 09/01/17 15:55 Blood - Peripheral Venous Blood Culture - Final Staphylococcus Aureus 08/31/17 23:22 Urine - Urine Clean Catch Urine Culture - Final Contaminated: Please Repeat RUE US - neg for DVT ASSESSMENT AND PLAN: -Acute hypoxic respiratory failure -Severe sepsis due to cavitary PNA, MSSA bacteremia, ALISA neg for vegetation -Large right loculated pleural effusion, s/p chest tube -Aspiration risk -Acute T9-T10 discitis/osteomyelitis -Hematochezia -ARF, from sepsis related ATN vs medication related, ?AIN -Acute on chronic anemia, suspect from renal dysfunction, episode of hematochezia suspected from rectal tube/heparin, resolved -AFib with RVR recurrent -Rash, ?medication induced , monitor for now. -Hypokalemia/hypomagnesemia -Hyperphosphatemia -Hypovolumic hypernatremia -Alcohol abuse -Normocytic anemia -Acute transaminitis -Chronic right subdural hematoma -Thrombocytopenia Secondary to alcohol, splenomegaly. now stable -Chronic right subdural hematoma Plan: s/p extubated 09/19 and re-intubated and extubated 09/27. re-intubated 10/01. due to tacypnea and hypoxia. full vent support. Plan for trach tomorrow. Low grade fevers with worsening leucocytosis today, repeat cultures, u/a, CXR, follow up with ID. Chest tube removed. on vanco by level. will need 6-8w abx for OM. CT surgery and ID on board On amio po. anticoagulation on hold due to medical problems. should ideally be on coumadin once improved. Renal function slowly improving, ?Diuretic phase of ATN, continue to monitor, renal dosing of meds. s/p 8 units PRBC this admission. Hgb overall stable. no indication for txn. on iron supplementations. Free water flushes and follow up Na level. s/p PEG placement, continue feeds, hold after midnight for trach tomorrow. US shows hepatosplenomegaly and fatty infiltration of liver Continue thiamine, folic acid, multivitamin DVT prophylaxis- heparin sq MICU monitoring. poor overall prognosis. plan for trach tomorrow. pt will likely benefit from LTAC facility. The care of this patient involved high complexity decision making to prevent further life threatening deterioration of the patient's condition and/or to evaluate & treat vital organ system(s) failure or risk of failure. 35 mins
--- NOTE | 2017-10-08 16:09 | PN ---
Physical Exam: SUBJECTIVE: Patient seen and examined at bedside. Overnight patient had acute low-grade fever, leukocytosis and tachydardia. Blood cultures, UA, and chest xray were performed. Patient is vented and sedated and cannot communicate for a thorough history. OBJECTIVE: Vital Signs Period Temp Pulse Resp BP Sys/Jeff Pulse Ox Last 24 Hr 98.8 F-100.5 F 84-106 22-36 107-155/72-97 97-100 GENERAL: Intubated, sedated ENT: nares patent without signs of bleeding LUNGS: mechanical breath sounds, b/l rhonchi noted HEART: Irregularly irregular rate, normal S1/S2 ABDOMEN: Soft, ntnd EXTREMITIES: 2+ pulses, 1+ pitting edema Lower>Upper SKIN: diffuse, erythematous, blanching rash noted on upper extremities and chest Laboratory Results - last 24 hr 10/04/17 10/08/17 10/08/17 22:15 06:00 06:00 WBC 15.6 H RBC 2.55 L Hgb 7.4 L Hct 21.9 L MCV 86.0 MCH 29.1 MCHC 33.9 RDW 17.9 H Plt Count 212 MPV 7.5 Neutrophils % 76.9 Lymphocytes % 5.8 L D Monocytes % 5.8 Eosinophils % 11.2 H Basophils % 0.3 ESR > 130 H Sodium Potassium Chloride Carbon Dioxide Anion Gap BUN Creatinine Creat Clearance w eGFR Random Glucose Lactic Acid Calcium Phosphorus Magnesium Total Bilirubin AST ALT Alkaline Phosphatase Total Protein Albumin Urine Color Urine Appearance Urine pH Ur Specific Gooding Urine Protein Urine Glucose (UA) Urine Ketones Urine Blood Urine Nitrite Urine Bilirubin Urine Urobilinogen Ur Leukocyte Esterase Urine RBC Urine Bacteria Urine Mucus Urine Yeast Random Vancomycin Blood Type O NEGATIVE Antibody Screen Negative Crossmatch See Detail 10/08/17 10/08/17 10/08/17 06:00 08:00 09:10 WBC RBC Hgb Hct MCV MCH MCHC RDW Plt Count MPV Neutrophils % Lymphocytes % Monocytes % Eosinophils % Basophils % ESR Sodium 138 Potassium 4.0 Chloride 108 H Carbon Dioxide 17 L Anion Gap 13 BUN 87 H Creatinine 3.6 H Creat Clearance w eGFR 16.95 Random Glucose 125 H Lactic Acid Calcium 7.7 L Phosphorus 4.5 Magnesium 1.8 Total Bilirubin 0.6 AST 24 ALT 13 Alkaline Phosphatase 139 H Total Protein 7.0 Albumin 1.9 L Urine Color Yellow Urine Appearance Slcloudy Urine pH 5.0 Ur Specific Gooding 1.012 Urine Protein 1+ H Urine Glucose (UA) Negative Urine Ketones Negative Urine Blood 1+ H Urine Nitrite Negative Urine Bilirubin Negative Urine Urobilinogen Negative Ur Leukocyte Esterase Trace H Urine RBC No Result Required. Urine Bacteria Few Urine Mucus Rare Urine Yeast Few Random Vancomycin 16.277 Blood Type Antibody Screen Crossmatch 10/08/17 09:15 WBC RBC Hgb Hct MCV MCH MCHC RDW Plt Count MPV Neutrophils % Lymphocytes % Monocytes % Eosinophils % Basophils % ESR Sodium Potassium Chloride Carbon Dioxide Anion Gap BUN Creatinine Creat Clearance w eGFR Random Glucose Lactic Acid 0.7 Calcium Phosphorus Magnesium Total Bilirubin AST ALT Alkaline Phosphatase Total Protein Albumin Urine Color Urine Appearance Urine pH Ur Specific Gooding Urine Protein Urine Glucose (UA) Urine Ketones Urine Blood Urine Nitrite Urine Bilirubin Urine Urobilinogen Ur Leukocyte Esterase Urine RBC Urine Bacteria Urine Mucus Urine Yeast Random Vancomycin Blood Type Antibody Screen Crossmatch Active Medications Generic Name Dose Route Start Last Admin Trade Name Freq PRN Reason Stop Dose Admin Acetaminophen 650 mg 09/07/17 05:53 10/08/17 06:17 Tylenol - NR 650 mg Q6H PRN Administration FEVER OR PAIN Amiodarone HCl 200 mg 10/04/17 16:45 10/08/17 09:06 Cordarone - PEG 200 mg DAILY [facility] Administration Chlorhexidine Gluconate 15 ml 09/08/17 12:30 10/08/17 09:07 Peridex - MM 15 ml BID [facility] Administration Ferrous Sulfate 325 mg 09/05/17 12:00 10/08/17 09:06 Feosol - PO 325 mg DAILY [facility] Administration Folic Acid 1 mg 09/02/17 10:00 10/08/17 09:06 Folic Acid - PO 1 mg DAILY [facility] Administration Heparin Sodium (Porcine) 5,000 unit 10/04/17 22:00 10/08/17 09:06 Heparin - SQ 5,000 unit BID [facility] Administration Famotidine/Sodium Chloride 20 mg in 50 mls @ 100 mls/hr 09/28/17 10:00 09:07 Pepcid 20 Mg Premixed Ivpb - IVPB 100 mls/hr BID [facility] Administration Propofol 1,000,000 mcg in 100 mls @ 2.493 mls/hr 10/01/17 12:30 10/08/17 16: 05 Diprivan - IVPB 50 mcg/kg/min TITR [facility] 24.93 mls/hr Protocol Administration 5 MCG/KG/MIN Metoprolol Tartrate 5 mg 10/02/17 16:47 10/05/17 22:00 Lopressor Injection - IVPUSH 5 mg Q6H PRN Administration HYPERTENSION Metoprolol Tartrate 25 mg 10/05/17 08:14 10/08/17 09:06 Lopressor - PEG 25 mg BID [facility] Administration Multivitamins/Minerals 1 each 09/02/17 10:00 10/08/17 09:07 Theragran-M PO 1 each DAILY [facility] Administration Mupirocin 1 applic 09/23/17 10:00 10/08/17 10:50 Bactroban 2% Cream - TP 1 applic BID [facility] Administration Sevelamer Carbonate 0.8 gm 10/05/17 08:16 10/08/17 11:00 Renvela Powder Packet - PEG 0.8 gm TIDCM [facility] Administration Thiamine HCl 100 mg 09/02/17 10:00 10/08/17 09:07 Vitamin B1 - PO 100 mg DAILY [facility] Administration ASSESSMENT/PLAN: 66yo man with PMH of EtOH abuse and HTN who is admitted (08/31) for acute hypoxic respiratory failure requiring mechanical ventilation (09/02-09/19, 09/24- , 10/01-). Continues to have cavitary PNA with loculated effusions bilaterally and acute thoracic osteomyletitis (T9-T10), currently on Vancomycin (renally dosed). Renal function improving, and maintaining UOP. ICU team discussing with patient need for tracheostomy as this is 3rd intubation. s/p PEG and getting tube feeds #sepsis 2/2 cavitary PNA, acute osteomyelitis, s/p MSSA bacteremia -ID following, long-term abx needed for acute osteomyelitis (6-8 wks), antibiotics day#32 -Vancomycin 500mg IV (dosed renally); check Random Vanc level daily (16.277 today) -patient going for trach tomorrow #acute hypoxic respiratory failure -Vent mgmt per ICU team -Dr. Earl planning trach on Saturday #ARF, Renal following, still considering HD, renal function slight improvement today -Ferrous Sulfate 325 mg PEG DAILY and Sevelamer Carbonate (Renvela) 800 mg PEG TID -Strict I&Os, hines, Renal dose for meds #Acute blood loss anemia -s/p 7Ux PRBCs, Hgb stable at 7.9 today, no further bleeds -Trend H&H, transfuse Hgb<7 #Atrial fibrillation - recurrent episode last night, started on amio gtt -Cardiology following -continue Amiodarone 200mg PEG qd for rate control -hold AC now given co-morbidities (CHADVASC 2) #Chronic Diastolic heart failure -ECHO 09/02/2017 probable preserved LV function, but can't R/O regional wall motion abnormality -Metoprolol 25mg PEG BID and 5mg IV Q6H PRN -consider hydralazine prn #EtOH abuse -Monitor for signs of EtOH withdrawal, unlikely at this point in hospitalization -MVI, thiamine 100mg PEG qd, folic acid 1mg PEG daily #FEN -No current standing fluids -hyperPhos noted previously, continue Sevelamer TID -Enteral feeds via PEG with free water flushes #PPX -Heparin 5000U SQ BID -GI - pepcid 20mg IV BID #Dispo: continue ICU monitoring FULL code If discharged on trach, try to attain [place] Facility Visit type - Emergency Visit Emergency Visit: No - New Patient This patient is new to me today: No - Critical Care Critical Care patient: Yes Total Critical Care Time (in minutes): 55 Critical Care Statement: The care of this patient involved high complexity decision making to prevent further life threatening deterioration of the patient 's condition and/or to evaluate & treat vital organ system(s) failure or risk of failure.
[2017-10-08] MEDS ORDERED: fentaNYL CITRATE 250 MCG/5 ML VIAL ONE (21:23)
[2017-10-08] MEDS ORDERED: FENTANYL INJECTION 500 MCG in DEXTROSE 5%-WATER - 90 ML IVPB SCH ×2 (21:30→22:00)
[2017-10-08] MEDS: FENTANYL INJECTION 500 MCG in DEXTROSE 5%-WATER - 90 ML IVPB SCH (22:18)
[2017-10-09] MEDS ORDERED: ACETAMINOPHEN 1000 MG/100 ML VIAL (NON FORMULARY) IVPB ONE (03:30)
[2017-10-09] MEDS ORDERED: fentaNYL CITRATE 250 MCG/5 ML VIAL ONE ×2 (04:13→20:18)
[2017-10-09] MEDS: FENTANYL INJECTION 500 MCG in DEXTROSE 5%-WATER - 90 ML IVPB SCH ×2 (04:18→22:15)
[2017-10-09] MEDS: PROPOFOL 1,000,000 MCG/100 ML VIAL IVPB SCH ×2 (04:18→13:15)
[2017-10-09] MEDS: METOPROLOL TARTRATE 5 MG/5 ML VIAL IVPUSH PRN (04:20)
[2017-10-09] MEDS ORDERED: SODIUM CHLORIDE 1,000 ML IV STA (05:13)
[2017-10-09] MEDS ORDERED: AMIODARONE HCL INJECTION 150 MG in DEXTROSE 5%-WATER - 97 ML IVPB ONE (05:31)
[2017-10-09] MEDS ORDERED: AMIODARONE HCL 150 MG/3 ML VIAL ONE (05:43)
[2017-10-09] MEDS ORDERED: AMIODARONE HCL INJECTION 450 MG in DEXTROSE 5%-WATER - 241 ML IVPB SCH (06:00)
[2017-10-09 06:53] LABS: BASOPHIL 0.4 % (0-2.0); EOSINOPHIL 4.1 % (0-4.5); MCH 29.3 pg (25.7-33.7); MCHC 33.4 g/dl (32.0-35.9); MEAN CELL VOLUME 87.7 fl (80-96); MEAN PLT VOLUME 7.9 fl (7.5-11.1); NEUTROPHILS 85.3 % (42.8-82.8); PLATELET COUNT 198 K/MM3 (134-434); WHITE BLOOD COUNT 21.2 K/mm3 (4.0-10.0)
[2017-10-09 07:07] LABS: ALBUMIN 1.9 g/dl (3.4-5.0); ALK PHOS 135 U/L (45-117); ANION GAP 13 (8-16); BILIRUBIN,TOTAL 0.6 mg/dL (0.2-1.0); CO2 18 mmol/L (21-32); CREATININE 3.6 mg/dL (0.7-1.3); GLUCOSE,RANDOM 101 mg/dL (74-106); MAGNESIUM 1.5 mg/dL (1.8-2.4); PHOSPHOROUS 5.2 mg/dL (2.5-4.9); SGOT/AST 19 U/L (15-37); SGPT/ALT 7 U/L (12-78); TOT PROT 6.9 g/dl (6.4-8.2)
--- NOTE | 2017-10-09 08:58 | PN ---
Progress Note (short form) - Note Progress Note: sedated intubated no diarrhea Vital Signs Period Temp Pulse Resp BP Sys/Jeff Pulse Ox Last 24 Hr 99.1 F-100.9 F 88-144 24-36 84-155/58-95 97-100 cor-rrr lungs decreased bs at bases abd soft,nt ext no edema skin unchanged with diffuse erythema hines intact no central lines CBC, BMP 10/09/17 05:10 10/09/17 05:10 Laboratory Tests 09/14/17 09/15/17 10/09/17 05:40 05:05 05:10 Random Vancomycin 19.384 16.479 12.872 cultures pending cxray unchanged a/p MSSA sepsis-day #33, now on vanco by levels ?interstitial nephritis, plan 6 to 8 weeks of treatment T9/10 discitis redose vancomycin today will add azactam for empiric gram negative coverage while awaiting cultures respiratory failure-for trach in am ARF anemia- gi bleed ALISA negative
[2017-10-09] MEDS ORDERED: AZTREONAM 1 GM in DEXTROSE 5%-WATER - 50 ML IVPB SCH (09:15)
[2017-10-09] MEDS: SEVELAMER CARBONATE 0.8 GM POWDER PACKET PEG SCH ×3 (09:39→19:07)
[2017-10-09] MEDS: FERROUS SO4 325 MG TABLET (FP) PO SCH (09:40)
[2017-10-09] MEDS: HEPARIN NA (PORCINE) 5,000 UNITS/ML 1ML VIAL SQ SCH ×2 (09:41→21:07)
[2017-10-09] MEDS: FAMOTIDINE 20 MG/50 ML IVPB 20 MG/50 ML MG IVPB SCH ×2 (10:34→21:06)
[2017-10-09] MEDS: AZTREONAM 1 GRAM SYRINGE 1 GM/10 ML DISP.SYRIN IVPUSH SCH ×2 (10:35→21:06)
[2017-10-09] MEDS: FOLIC ACID 1 MG TABLET (FP) PO SCH (10:50)
[2017-10-09] MEDS: AMIODARONE HCL 200 MG TABLET (FP) PEG SCH (10:50)
[2017-10-09] MEDS: METOPROLOL TARTRATE 25 MG TABLET (FP) PEG SCH ×2 (10:51→21:07)
[2017-10-09] MEDS: MULTIVITAMINS THER W-MINERALS COMBO TABLET (FP) PO SCH (10:51)
[2017-10-09] MEDS: THIAMINE HCL 100 MG TABLET (FP) PO SCH (10:52)
[2017-10-09] MEDS: CHLORHEXIDINE GLUCONATE 0.12% 15ML CUP MM SCH ×2 (11:06→21:07)
[2017-10-09] MEDS: MUPIROCIN CA 2% TOPICAL CREAM 15 GM TUBE TP SCH ×2 (11:06→23:26)
--- NOTE | 2017-10-09 12:10 | PN ---
Progress Note, Physician History of Present Illness: Awake on vent for recurrent respiratory failure, post PEG placement, flexible bronch and tracheostomy. - Current Medication List Current Medications: Active Medications Acetaminophen (Tylenol -) 650 mg PO Q6H PRN PRN Reason: FEVER OR PAIN Amiodarone HCl (Cordarone -) 200 mg PEG DAILY [facility] Last Admin: 10/09/17 10:50 Dose: Not Given Chlorhexidine Gluconate (Peridex -) 15 ml MM BID [facility] Last Admin: 10/09/17 11:06 Dose: 10 ml Ferrous Sulfate (Feosol -) 325 mg PO DAILY [facility] Last Admin: 10/09/17 09:40 Dose: Not Given Folic Acid (Folic Acid -) 1 mg PO DAILY [facility] Last Admin: 10/09/17 10:50 Dose: Not Given Heparin Sodium (Porcine) (Heparin -) 5,000 unit SQ BID [facility] Last Admin: 10/09/17 09:41 Dose: Not Given Famotidine/Sodium Chloride (Pepcid 20 Mg Premixed Ivpb -) 20 mg in 50 mls @ 100 mls/hr IVPB BID [facility] Last Admin: 10/09/17 10:34 Dose: 100 mls/hr Propofol (Diprivan -) 1,000,000 mcg in 100 mls @ 2.493 mls/hr IVPB TITR [facility]; 5 MCG/KG/MIN PRN Reason: Protocol Last Titration: 10/09/17 07:58 Dose: 60.16 mcg/kg/min, 30 mls/hr Fentanyl 500 mcg/ Dextrose 100 mls @ 5 mls/hr IVPB TITR [facility]; 25 MCG/HR PRN Reason: Protocol Last Titration: 10/09/17 06:03 Dose: 25 mcg/hr, 5 mls/hr Amiodarone HCl 450 mg/ (Dextrose) 250 mls @ 16.66 mls/hr IVPB TITR [facility]; 0.5 MG/ MIN PRN Reason: Protocol Last Admin: 10/09/17 06:16 Dose: 1 mg/min, 33.33 mls/hr Aztreonam (Azactam (Restricted To Id) -) 1 gm in 10 mls @ 120 mls/hr IVPUSH BID [facility] Last Admin: 10/09/17 10:35 Dose: 120 mls/hr Metoprolol Tartrate (Lopressor Injection -) 5 mg IVPUSH Q6H PRN PRN Reason: HYPERTENSION Last Admin: 10/09/17 04:20 Dose: 5 mg Metoprolol Tartrate (Lopressor -) 25 mg PEG BID [facility] Last Admin: 10/09/17 10:51 Dose: Not Given Multivitamins/Minerals (Theragran-M) 1 each PO DAILY [facility] Last Admin: 10/09/17 10:51 Dose: Not Given Mupirocin (Bactroban 2% Cream -) 1 applic TP BID [facility] Last Admin: 10/09/17 11:06 Dose: 1 applic Sevelamer Carbonate (Renvela Powder Packet -) 0.8 gm PEG TIDCM [facility] Last Admin: 10/09/17 09:39 Dose: Not Given Thiamine HCl (Vitamin B1 -) 100 mg PO DAILY [facility] Last Admin: 10/09/17 10:52 Dose: Not Given - Objective Vital Signs: Vital Signs Temperature 99.5 F 10/09/17 06:00 Pulse Rate 92 H 10/09/17 10:00 Respiratory Rate 24 10/09/17 10:00 Blood Pressure 104/68 10/09/17 10:00 O2 Sat by Pulse Oximetry (%) 99 10/08/17 21:00 Constitutional: Yes: No Distress, Calm Neck: Yes: Supple, Tenderness, Other (Tracheostomy) Respiratory: Yes: Diminished, Mechanically Ventilated, Rhonchi Gastrointestinal: Yes: Normal Bowel Sounds, Soft Edema: Yes Labs: CBC, BMP 10/09/17 05:10 10/09/17 05:10 INR, PTT INR 1.14 (0.82-1.09) D 10/03/17 05:22 - ....Imaging EKG: Report Reviewed (Tele: ) Problem List - Problems (1) Respiratory failure with hypoxia Code(s): J96.91 - RESPIRATORY FAILURE, UNSPECIFIED WITH HYPOXIA Qualifiers: Chronicity: acute Qualified Code(s): J96.01 - Acute respiratory failure with hypoxia (2) Pneumonia Code(s): J18.9 - PNEUMONIA, UNSPECIFIED ORGANISM Qualifiers: Pneumonia type: aspiration pneumonia (3) Staphylococcus aureus bacteremia Code(s): R78.81 - BACTEREMIA (5) History of alcohol abuse Code(s): Z87.898 - PERSONAL HISTORY OF OTHER SPECIFIED CONDITIONS (6) Acute kidney injury Code(s): N17.9 - ACUTE KIDNEY FAILURE, UNSPECIFIED (7) Acute diastolic heart failure Code(s): I50.31 - ACUTE DIASTOLIC (CONGESTIVE) HEART FAILURE (8) Anemia Code(s): D64.9 - ANEMIA, UNSPECIFIED Qualifiers: Anemia type: unspecified type Qualified Code(s): D64.9 - Anemia, unspecified (9) Discitis of cervicothoracic region Code(s): M46.43 - DISCITIS, UNSPECIFIED, CERVICOTHORACIC REGION (10) Paroxysmal atrial fibrillation Code(s): I48.0 - PAROXYSMAL ATRIAL FIBRILLATION (11) Rectal ulcer Code(s): K62.6 - ULCER OF ANUS AND RECTUM (12) Status post insertion of percutaneous endoscopic gastrostomy (PEG) tube Code(s): Z93.1 - GASTROSTOMY STATUS (13) Status post tracheostomy Code(s): Z93.0 - TRACHEOSTOMY STATUS Assessment/Plan 1. Paroxysmal atrial fibrillation [id number] score of 2, currently in sinus rhythm off of Eliquis therapy as outlined above, on Amiodarone therapy 2. Chronic hypoxic respiratory failure s/p trach and PEG 3. Cavitating pneumonia, MSSA bacteremia, post septic shock no evidence of endocarditis by ALISA criteria 4. Diastolic LV dysfunction with class I-II NYHA congestive heart failure, compensated 5. Osteomyelitis T9-T10 discitis 6. Loculated effusion post chest tube insertion 7. History of alcohol dependence 8. Acute renal insufficiency 9. Anemia - GI bleed PLAN: 1. Vent support via tracheostomy, post PEG, enteral feeds with free water repletion 2. Continue Lopressor 25 bid with IV Lopressor as needed and Amiodarone 200 qd 3. Antibiotic recs per ID service 4. DVT and GI prophylaxis
--- NOTE | 2017-10-09 12:51 | PN ---
Teaching Attending Note Name of Resident: Vipul Rice ATTENDING PHYSICIAN STATEMENT I saw and evaluated the patient. I reviewed the resident's note and discussed the case with the resident. I agree with the resident's findings and plan as documented. SUBJECTIVE: Pt seen and examined in the ICU. Remains intubated, sedated. Febrile overnight with episodes of hypotension. OBJECTIVE: Last Vital Signs Temp Pulse Resp BP Pulse Ox 99.5 F 90 24 124/76 99 10/09/17 06:00 10/09/17 12:00 10/09/17 12:00 10/09/17 12:00 10/08/17 21:00 Intake & Output 10/06/17 10/07/17 10/08/17 10/09/17 23:59 23:59 23:59 23:59 Intake Total 2263 1988 2853 1370 Output Total 1600 1900 2200 400 Balance 663 88 653 970 Weight 185 lb 12.8 oz 187 lb 11.2 oz 189 lb 2.506 oz 191 lb 2.252 oz Gen: intubated, sedated Heart: RRR Lung: scattered rhonchi Abd: soft, nontender Ext: + edema, RUE blanching erythema, warm to touch CBC, BMP 10/09/17 05:10 10/09/17 05:10 Active Medications Acetaminophen (Tylenol -) 650 mg PO Q6H PRN PRN Reason: FEVER OR PAIN Amiodarone HCl (Cordarone -) 200 mg PEG DAILY [facility] Last Admin: 10/09/17 10:50 Dose: Not Given Chlorhexidine Gluconate (Peridex -) 15 ml MM BID [facility] Last Admin: 10/09/17 11:06 Dose: 10 ml Ferrous Sulfate (Feosol -) 325 mg PO DAILY [facility] Last Admin: 10/09/17 09:40 Dose: Not Given Folic Acid (Folic Acid -) 1 mg PO DAILY [facility] Last Admin: 10/09/17 10:50 Dose: Not Given Heparin Sodium (Porcine) (Heparin -) 5,000 unit SQ BID [facility] Last Admin: 10/09/17 09:41 Dose: Not Given Famotidine/Sodium Chloride (Pepcid 20 Mg Premixed Ivpb -) 20 mg in 50 mls @ 100 mls/hr IVPB BID [facility] Last Admin: 10/09/17 10:34 Dose: 100 mls/hr Propofol (Diprivan -) 1,000,000 mcg in 100 mls @ 2.493 mls/hr IVPB TITR [facility]; 5 MCG/KG/MIN PRN Reason: Protocol Last Titration: 10/09/17 07:58 Dose: 60.16 mcg/kg/min, 30 mls/hr Fentanyl 500 mcg/ Dextrose 100 mls @ 5 mls/hr IVPB TITR [facility]; 25 MCG/HR PRN Reason: Protocol Last Titration: 10/09/17 06:03 Dose: 25 mcg/hr, 5 mls/hr Amiodarone HCl 450 mg/ (Dextrose) 250 mls @ 16.66 mls/hr IVPB TITR [facility]; 0.5 MG/ MIN PRN Reason: Protocol Last Admin: 10/09/17 06:16 Dose: 1 mg/min, 33.33 mls/hr Aztreonam (Azactam (Restricted To Id) -) 1 gm in 10 mls @ 120 mls/hr IVPUSH BID [facility] Last Admin: 10/09/17 10:35 Dose: 120 mls/hr Metoprolol Tartrate (Lopressor Injection -) 5 mg IVPUSH Q6H PRN PRN Reason: HYPERTENSION Last Admin: 10/09/17 04:20 Dose: 5 mg Metoprolol Tartrate (Lopressor -) 25 mg PEG BID [facility] Last Admin: 10/09/17 10:51 Dose: Not Given Multivitamins/Minerals (Theragran-M) 1 each PO DAILY [facility] Last Admin: 10/09/17 10:51 Dose: Not Given Mupirocin (Bactroban 2% Cream -) 1 applic TP BID [facility] Last Admin: 10/09/17 11:06 Dose: 1 applic Sevelamer Carbonate (Renvela Powder Packet -) 0.8 gm PEG TIDCM [facility] Last Admin: 10/09/17 09:39 Dose: Not Given Thiamine HCl (Vitamin B1 -) 100 mg PO DAILY [facility] Last Admin: 10/09/17 10:52 Dose: Not Given ASSESSMENT AND PLAN: Acute Hypoxic Respiratory Failure Pneumonia MSSA Bacteremia Loculated Pleural Effusions LV Diastolic Dysfunction Paroxysmal Atrial Fibrillation Acute Kidney Injury GI Bleed Acute Blood Loss Anemia Cellulitis - antibiotics per ID - f/u pending cultures - holding heparin gtt - monitor H/H - transfuse as needed - protonix - O2 to keep SpO2 >90% - for tracheostomy today as this is his 3rd intubation this admission likely from aspiration - enteral feeds - resume spontaneous breathing trials after tracheostomy - DVT/GI prophylaxis - continue ICU monitoring - continue discussions regarding goals of care and advanced directives - consider LTAC placement critical care time spent in reviewing chart, evaluating patient and formulating plan 35 min
--- NOTE | 2017-10-09 12:59 | PN ---
Progress Note, Physician History of Present Illness: Pt seen and examined at bedside. He is going for a trache today. He remain in the ICU. - Current Medication List Current Medications: Active Medications Acetaminophen (Tylenol -) 650 mg PO Q6H PRN PRN Reason: FEVER OR PAIN Amiodarone HCl (Cordarone -) 200 mg PEG DAILY [facility] Last Admin: 10/09/17 10:50 Dose: Not Given Chlorhexidine Gluconate (Peridex -) 15 ml MM BID [facility] Last Admin: 10/09/17 11:06 Dose: 10 ml Ferrous Sulfate (Feosol -) 325 mg PO DAILY [facility] Last Admin: 10/09/17 09:40 Dose: Not Given Folic Acid (Folic Acid -) 1 mg PO DAILY [facility] Last Admin: 10/09/17 10:50 Dose: Not Given Heparin Sodium (Porcine) (Heparin -) 5,000 unit SQ BID [facility] Last Admin: 10/09/17 09:41 Dose: Not Given Famotidine/Sodium Chloride (Pepcid 20 Mg Premixed Ivpb -) 20 mg in 50 mls @ 100 mls/hr IVPB BID [facility] Last Admin: 10/09/17 10:34 Dose: 100 mls/hr Propofol (Diprivan -) 1,000,000 mcg in 100 mls @ 2.493 mls/hr IVPB TITR [facility]; 5 MCG/KG/MIN PRN Reason: Protocol Last Titration: 10/09/17 07:58 Dose: 60.16 mcg/kg/min, 30 mls/hr Fentanyl 500 mcg/ Dextrose 100 mls @ 5 mls/hr IVPB TITR [facility]; 25 MCG/HR PRN Reason: Protocol Last Titration: 10/09/17 06:03 Dose: 25 mcg/hr, 5 mls/hr Amiodarone HCl 450 mg/ (Dextrose) 250 mls @ 16.66 mls/hr IVPB TITR [facility]; 0.5 MG/ MIN PRN Reason: Protocol Last Admin: 10/09/17 06:16 Dose: 1 mg/min, 33.33 mls/hr Aztreonam (Azactam (Restricted To Id) -) 1 gm in 10 mls @ 120 mls/hr IVPUSH BID [facility] Last Admin: 10/09/17 10:35 Dose: 120 mls/hr Metoprolol Tartrate (Lopressor Injection -) 5 mg IVPUSH Q6H PRN PRN Reason: HYPERTENSION Last Admin: 10/09/17 04:20 Dose: 5 mg Metoprolol Tartrate (Lopressor -) 25 mg PEG BID [facility] Last Admin: 10/09/17 10:51 Dose: Not Given Multivitamins/Minerals (Theragran-M) 1 each PO DAILY [facility] Last Admin: 10/09/17 10:51 Dose: Not Given Mupirocin (Bactroban 2% Cream -) 1 applic TP BID [facility] Last Admin: 10/09/17 11:06 Dose: 1 applic Sevelamer Carbonate (Renvela Powder Packet -) 0.8 gm PEG TIDCM [facility] Last Admin: 10/09/17 09:39 Dose: Not Given Thiamine HCl (Vitamin B1 -) 100 mg PO DAILY [facility] Last Admin: 10/09/17 10:52 Dose: Not Given - Objective Vital Signs: Vital Signs Temperature 99.5 F 10/09/17 06:00 Pulse Rate 90 10/09/17 12:00 Respiratory Rate 24 10/09/17 12:00 Blood Pressure 124/76 10/09/17 12:00 O2 Sat by Pulse Oximetry (%) 99 10/08/17 21:00 Constitutional: Yes: Calm Eyes: Yes: Conjunctiva Clear HENT: Yes: Atraumatic Neck: Yes: Supple Cardiovascular: Yes: S1, S2 Respiratory: Yes: Mechanically Ventilated Gastrointestinal: Yes: Soft, Other (peg) Genitourinary: Yes: Freeman Present Edema: Yes Edema: LUE: 1+, RUE: 1+ Neurological: Yes: Lethargy Labs: CBC, BMP 10/09/17 05:10 10/09/17 05:10 INR, PTT INR 1.14 (0.82-1.09) D 10/03/17 05:22 - ....Imaging Chest X-ray: Report Reviewed Problem List - Problems (1) Abuse, drug or alcohol Code(s): F19.10 - OTHER PSYCHOACTIVE SUBSTANCE ABUSE, UNCOMPLICATED (2) Withdrawal symptoms, alcohol Code(s): F10.239 - ALCOHOL DEPENDENCE WITH WITHDRAWAL, UNSPECIFIED Qualifiers: Complication of substance-induced condition: uncomplicated Qualified Code(s ): F10.230 - Alcohol dependence with withdrawal, uncomplicated (3) Hyponatremia Code(s): E87.1 - HYPO-OSMOLALITY AND HYPONATREMIA (4) Respiratory failure with hypoxia Code(s): J96.91 - RESPIRATORY FAILURE, UNSPECIFIED WITH HYPOXIA Qualifiers: Chronicity: acute Qualified Code(s): J96.01 - Acute respiratory failure with hypoxia (5) Staphylococcus aureus bacteremia Code(s): R78.81 - BACTEREMIA (6) Acute kidney injury Code(s): N17.9 - ACUTE KIDNEY FAILURE, UNSPECIFIED (7) Anemia Code(s): D64.9 - ANEMIA, UNSPECIFIED Qualifiers: Anemia type: unspecified type Qualified Code(s): D64.9 - Anemia, unspecified Assessment/Plan Current Medications Generic Name Dose Route Start Last Admin Trade Name Freq PRN Reason Stop Dose Admin Acetaminophen 650 mg 10/09/17 05:31 Tylenol - PO Q6H PRN FEVER OR PAIN Amiodarone HCl 200 mg 10/04/17 16:45 10/09/17 10:50 Cordarone - PEG Not Given DAILY [facility] Chlorhexidine Gluconate 15 ml 09/08/17 12:30 10/09/17 11:06 Peridex - MM 10 ml BID [facility] Administration Ferrous Sulfate 325 mg 09/05/17 12:00 10/09/17 09:40 Feosol - PO Not Given DAILY [facility] Folic Acid 1 mg 09/02/17 10:00 10/09/17 10:50 Folic Acid - PO Not Given DAILY [facility] Heparin Sodium (Porcine) 5,000 unit 10/04/17 22:00 10/09/17 09:41 Heparin - SQ Not Given BID [facility] Famotidine/Sodium Chloride 20 mg in 50 mls @ 100 mls/hr 09/28/17 10:00 10:34 Pepcid 20 Mg Premixed Ivpb - IVPB 100 mls/hr BID [facility] Administration Propofol 1,000,000 mcg in 100 mls @ 2.493 mls/hr 10/01/17 12:30 10/09/17 07: 58 Diprivan - IVPB 60.16 mcg/kg/min TITR [facility] 30 mls/hr Protocol Titration 5 MCG/KG/MIN Fentanyl 500 mcg/ Dextrose 100 mls @ 5 mls/hr 10/08/17 22:15 10/09/17 06:03 IVPB 25 mcg/hr TITR [facility] 5 mls/hr Protocol Titration 25 MCG/HR Amiodarone HCl 450 mg/ 250 mls @ 16.66 mls/hr 10/09/17 06:00 10/09/17 06:16 Dextrose IVPB 1 mg/min TITR [facility] 33.33 mls/hr Protocol Administration 0.5 MG/MIN Aztreonam 1 gm in 10 mls @ 120 mls/hr 10/09/17 10:00 10/09/17 10:35 Azactam (Restricted To Id) - IVPUSH 120 mls/hr BID [facility] Administration Metoprolol Tartrate 5 mg 10/02/17 16:47 10/09/17 04:20 Lopressor Injection - IVPUSH 5 mg Q6H PRN Administration HYPERTENSION Metoprolol Tartrate 25 mg 10/05/17 08:14 10/09/17 10:51 Lopressor - PEG Not Given BID [facility] Multivitamins/Minerals 1 each 09/02/17 10:00 10/09/17 10:51 Theragran-M PO Not Given DAILY [facility] Mupirocin 1 applic 09/23/17 10:00 10/09/17 11:06 Bactroban 2% Cream - TP 1 applic BID [facility] Administration Sevelamer Carbonate 0.8 gm 10/05/17 08:16 10/09/17 09:39 Renvela Powder Packet - PEG Not Given TIDCM [facility] Thiamine HCl 100 mg 09/02/17 10:00 10/09/17 10:52 Vitamin B1 - PO Not Given DAILY [facility] Impression 1. ALEXANDRA 2. fluid overload 3. hypoalbuminemia 4. respiratory failure requiring intubation 5. anemia 6. etoh abuse 7. fevers 8. hypokalemia 9. pleural effusion 10. hypernatremia 11. GI bleed 12. rash Plan - pt npo for trache - cont feeds after trache - repeat labs in am - renal function has been improving - evaluate volume status for diuretics daily - cont vent support - daughter's number: Emelina [phone]. - ALEXANDRA is multifactorial - keep pt in ICU - discussed with ICU team - will follow Dr Peres
[2017-10-09] MEDS ORDERED: VECURONIUM BROMIDE 50 MG VIAL IVPUSH ONE (13:15)
[2017-10-09] MEDS ORDERED: VECURONIUM BROMIDE 10 MG VIAL ONE (13:16)
[2017-10-09] MEDS ORDERED: PROPOFOL 200 MG/20 ML VIAL IVPUSH ONE (13:16)
--- NOTE | 2017-10-09 13:42 | PN ---
Teaching Attending Note Name of Resident: Blair White ATTENDING PHYSICIAN STATEMENT Time of evaluation: 9:15 AM I saw and evaluated the patient. I reviewed the resident's note and discussed the case with the resident. I agree with the resident's findings and plan as documented. SUBJECTIVE: Patient seen and examined. intubated and sedated, unable to do ROS. OBJECTIVE: Vital Signs Period Temp Pulse Resp BP Sys/Jeff Pulse Ox Last 24 Hr 99.2 F-100.9 F 90-144 24-36 84-155/58-95 99-100 Intake & Output 10/06/17 10/07/17 10/08/17 10/09/17 23:59 23:59 23:59 23:59 Intake Total 2263 1988 2853 1370 Output Total 1600 1900 2200 400 Balance 663 88 653 970 Weight 185 lb 12.8 oz 187 lb 11.2 oz 189 lb 2.506 oz 191 lb 2.252 oz GEneral: sedated, intubated, in no acute distress CVS: S1S2 irregular Chest: occasional scattered rales Abdomen: soft, obese, positive bowel sounds, PEG in place Extremities anasarca Home Medication List Medication Instructions Recorded Confirmed Type Unobtainable [Unobtainable] 08/31/17 08/31/17 History Active Medications Generic Name Dose Route Start Last Admin Trade Name Ramo PRN Reason Stop Dose Admin Acetaminophen 650 mg 10/09/17 05:31 Tylenol - PO Q6H PRN FEVER OR PAIN Amiodarone HCl 200 mg 10/04/17 16:45 10/09/17 10:50 Cordarone - PEG Not Given DAILY [facility] Chlorhexidine Gluconate 15 ml 09/08/17 12:30 10/09/17 11:06 Peridex - MM 10 ml BID [facility] Administration Ferrous Sulfate 325 mg 09/05/17 12:00 10/09/17 09:40 Feosol - PO Not Given DAILY [facility] Folic Acid 1 mg 09/02/17 10:00 10/09/17 10:50 Folic Acid - PO Not Given DAILY [facility] Heparin Sodium (Porcine) 5,000 unit 10/04/17 22:00 10/09/17 09:41 Heparin - SQ Not Given BID [facility] Famotidine/Sodium Chloride 20 mg in 50 mls @ 100 mls/hr 09/28/17 10:00 10:34 Pepcid 20 Mg Premixed Ivpb - IVPB 100 mls/hr BID [facility] Administration Propofol 1,000,000 mcg in 100 mls @ 2.493 mls/hr 10/01/17 12:30 10/09/17 13: 05 Diprivan - IVPB 80.22 mcg/kg/min TITR [facility] 40 mls/hr Protocol Titration 5 MCG/KG/MIN Fentanyl 500 mcg/ Dextrose 100 mls @ 5 mls/hr 10/08/17 22:15 10/09/17 06:03 IVPB 25 mcg/hr TITR [facility] 5 mls/hr Protocol Titration 25 MCG/HR Amiodarone HCl 450 mg/ 250 mls @ 16.66 mls/hr 10/09/17 06:00 10/09/17 12:01 Dextrose IVPB 0.5 mg/min TITR [facility] 16.66 mls/hr Protocol Titration 0.5 MG/MIN Aztreonam 1 gm in 10 mls @ 120 mls/hr 10/09/17 10:00 10/09/17 10:35 Azactam (Restricted To Id) - IVPUSH 120 mls/hr BID [facility] Administration Metoprolol Tartrate 5 mg 10/02/17 16:47 10/09/17 04:20 Lopressor Injection - IVPUSH 5 mg Q6H PRN Administration HYPERTENSION Metoprolol Tartrate 25 mg 10/05/17 08:14 10/09/17 10:51 Lopressor - PEG Not Given BID [facility] Multivitamins/Minerals 1 each 09/02/17 10:00 10/09/17 10:51 Theragran-M PO Not Given DAILY [facility] Mupirocin 1 applic 09/23/17 10:00 10/09/17 11:06 Bactroban 2% Cream - TP 1 applic BID [facility] Administration Sevelamer Carbonate 0.8 gm 10/05/17 08:16 10/09/17 13:01 Renvela Powder Packet - PEG Not Given TIDCM [facility] Thiamine HCl 100 mg 09/02/17 10:00 10/09/17 10:52 Vitamin B1 - PO Not Given DAILY [facility] Vecuronium [place] 6 mg 10/09/17 13:15 Vecuronium [place] IVPUSH 10/09/17 13:16 ONCE ONE Laboratory Results - last 24 hr 10/07/17 10/07/17 10/08/17 06:11 18:04 06:11 WBC RBC Hgb Hct MCV MCH MCHC RDW Plt Count MPV Neutrophils % Lymphocytes % Monocytes % Eosinophils % Basophils % Sodium Potassium Chloride Carbon Dioxide Anion Gap BUN Creatinine Creat Clearance w eGFR POC Glucometer 127.81824 138.62902 162.38009 Random Glucose Calcium Phosphorus Magnesium Total Bilirubin AST ALT Alkaline Phosphatase Total Protein Albumin Urine Color Urine Appearance Urine pH Ur Specific [place] Urine Protein Urine Glucose (UA) Urine Ketones Urine Blood Urine Nitrite Urine Bilirubin Urine Urobilinogen Ur Leukocyte Esterase Urine RBC Urine Bacteria Urine Mucus Urine Yeast Random Vancomycin 10/08/17 10/09/17 10/09/17 08:00 05:10 05:10 WBC 21.2 H D RBC 2.51 L Hgb 7.4 L Hct 22.0 L MCV 87.7 MCH 29.3 MCHC 33.4 RDW 18.0 H Plt Count 198 MPV 7.9 Neutrophils % 85.3 H Lymphocytes % 3.9 L D Monocytes % 6.3 Eosinophils % 4.1 Basophils % 0.4 Sodium Potassium Chloride Carbon Dioxide Anion Gap BUN Creatinine Creat Clearance w eGFR POC Glucometer Random Glucose Calcium Phosphorus Magnesium Total Bilirubin AST ALT Alkaline Phosphatase Total Protein Albumin Urine Color Yellow Urine Appearance Slcloudy Urine pH 5.0 Ur Specific [place] 1.012 Urine Protein 1+ H Urine Glucose (UA) Negative Urine Ketones Negative Urine Blood 1+ H Urine Nitrite Negative Urine Bilirubin Negative Urine Urobilinogen Negative Ur Leukocyte Esterase Trace H Urine RBC No Result Required. Urine Bacteria Few Urine Mucus Rare Urine Yeast Few Random Vancomycin 12.872 10/09/17 10/09/17 05:10 05:58 WBC RBC Hgb Hct MCV MCH MCHC RDW Plt Count MPV Neutrophils % Lymphocytes % Monocytes % Eosinophils % Basophils % Sodium 138 Potassium 4.2 Chloride 107 Carbon Dioxide 18 L Anion Gap 13 BUN 85 H Creatinine 3.6 H Creat Clearance w eGFR 16.95 POC Glucometer 115.46578 Random Glucose 101 Calcium 8.0 L Phosphorus 5.2 H Magnesium 1.5 L Total Bilirubin 0.6 AST 19 D ALT 7 L D Alkaline Phosphatase 135 H Total Protein 6.9 Albumin 1.9 L Urine Color Urine Appearance Urine pH Ur Specific [place] Urine Protein Urine Glucose (UA) Urine Ketones Urine Blood Urine Nitrite Urine Bilirubin Urine Urobilinogen Ur Leukocyte Esterase Urine RBC Urine Bacteria Urine Mucus Urine Yeast Random Vancomycin Microbiology 10/08/17 09:10 Blood - Peripheral Venous Blood Culture - Preliminary NO GROWTH OBTAINED AFTER 24 HOURS, INCUBATION TO CONTINUE FOR 4 DAYS. 10/08/17 09:15 Blood - Peripheral Venous Blood Culture - Preliminary NO GROWTH OBTAINED AFTER 24 HOURS, INCUBATION TO CONTINUE FOR 4 DAYS. 09/22/17 13:45 Blood - Peripheral Venous Blood Culture - Final NO GROWTH AFTER 5 DAYS INCUBATION 09/22/17 13:45 Blood - Peripheral Venous Blood Culture - Final NO GROWTH AFTER 5 DAYS INCUBATION 09/17/17 16:14 Pleural Fluid AFB Smear Concentration - Final 09/17/17 16:14 Pleural Fluid Mycobacterial Culture - Preliminary 09/19/17 10:23 Blood - Peripheral Venous Blood Culture - Final NO GROWTH AFTER 5 DAYS INCUBATION 09/19/17 10:23 Blood - Peripheral Venous Blood Culture - Final NO GROWTH AFTER 5 DAYS INCUBATION 09/19/17 10:00 Leg - Right Lower Gram Stain - Final 09/19/17 10:00 Leg - Right Lower Wound Culture - Final Diphtheroid/Corynebacterium Staphylococcus Coagulase Neg 09/17/17 16:14 Pleural Fluid Gram Stain - Final 09/17/17 16:14 Pleural Fluid Body Fluid Culture - Final NO GROWTH OF AEROBIC ORGANISMS AFTER 48 HOURS INCUBATION 09/17/17 16:14 Pleural Fluid Anaerobic Culture - Final NO ANAEROBES WERE ISOLATED 09/17/17 16:14 Pleural Fluid MAGI Preparation - Preliminary 09/17/17 16:14 Pleural Fluid Fungal Culture - Preliminary 09/12/17 09:20 Blood - Peripheral Venous Blood Culture - Final NO GROWTH AFTER 5 DAYS INCUBATION 09/12/17 09:15 Blood - Peripheral Venous Blood Culture - Final NO GROWTH AFTER 5 DAYS INCUBATION 09/10/17 10:00 Blood - Peripheral Venous Blood Culture - Final NO GROWTH AFTER 5 DAYS INCUBATION 09/10/17 10:00 Blood - Peripheral Venous Blood Culture - Final NO GROWTH AFTER 5 DAYS INCUBATION 09/08/17 05:45 Blood - Peripheral Venous Blood Culture - Final NO GROWTH AFTER 5 DAYS INCUBATION 09/08/17 05:45 Blood - Peripheral Venous Blood Culture - Final NO GROWTH AFTER 5 DAYS INCUBATION 09/10/17 09:35 Sputum - Endotrachea Suction/Ventilator Gram Stain - Final 09/10/17 09:35 Sputum - Endotrachea Suction/Ventilator Sputum Culture - Final Yeast Like Organism 09/08/17 18:07 Pleural Fluid Gram Stain - Final 09/08/17 18:07 Pleural Fluid Body Fluid Culture - Final NO GROWTH OF AEROBIC ORGANISMS AFTER 48 HOURS INCUBATION 09/08/17 18:07 Pleural Fluid Anaerobic Culture - Final NO ANAEROBES WERE ISOLATED 09/10/17 09:35 Urine - Urine [place] Urine Culture - Final NO GROWTH OBTAINED 09/06/17 11:02 Blood - Peripheral Venous Blood Culture - Final NO GROWTH AFTER 5 DAYS INCUBATION 09/10/17 09:05 Stool Clostridium difficile Antigen (KHRIS) - Final 09/10/17 09:05 Stool Clostridium difficile Toxin Assay - Final 09/08/17 18:00 Pleural Fluid AFB Smear Concentration - Final 09/08/17 18:00 Pleural Fluid Mycobacterial Culture - Preliminary 09/06/17 11:02 Blood - Peripheral Venous Blood Culture - Final Staphylococcus Aureus 09/08/17 18:00 Pleural Fluid MAGI Preparation - Preliminary 09/08/17 18:00 Pleural Fluid Fungal Culture - Preliminary 09/04/17 08:15 Blood - Peripheral Venous Blood Culture - Final NO GROWTH AFTER 5 DAYS INCUBATION 09/04/17 08:00 Blood - Peripheral Venous Blood Culture - Final NO GROWTH AFTER 5 DAYS INCUBATION 09/05/17 21:00 Sputum - Endotrachea Suction/Ventilator Gram Stain - Final 09/05/17 21:00 Sputum - Endotrachea Suction/Ventilator Sputum Culture - Final Yeast Like Organism 09/06/17 10:20 Stool Clostridium difficile Antigen (KHRIS) - Final 09/06/17 10:20 Stool Clostridium difficile Toxin Assay - Final 09/02/17 00:00 Sputum - Endotracheal Suction W/O Vent Gram Stain - Final 09/02/17 00:00 Sputum - Endotracheal Suction W/O Vent Sputum Culture - Final Yeast Like Organism 09/03/17 12:15 Urine - Urine - Catheterized Urine Culture - Final NO GROWTH OBTAINED 09/01/17 05:00 Blood - Peripheral Venous Blood Culture - Final Staphylococcus Aureus 09/01/17 00:01 Blood - Peripheral Venous Blood Culture - Final Staphylococcus Aureus 09/01/17 15:50 Blood - Peripheral Venous Blood Culture - Final Staphylococcus Aureus 09/01/17 15:55 Blood - Peripheral Venous Blood Culture - Final Staphylococcus Aureus 08/31/17 23:22 Urine - Urine Clean Catch Urine Culture - Final Contaminated: Please Repeat ASSESSMENT AND PLAN: -Acute hypoxic respiratory failure -Severe sepsis due to cavitary PNA, MSSA bacteremia, ALISA neg for vegetation -Large right loculated pleural effusion, s/p chest tube -Aspiration risk -Acute T9-T10 discitis/osteomyelitis -Hematochezia -ARF, from sepsis related ATN vs medication related, ?AIN -Acute on chronic anemia, suspect from renal dysfunction, episode of hematochezia suspected from rectal tube/heparin, resolved -AFib with RVR recurrent -Rash, ?medication induced , monitor for now. -Hypokalemia/hypomagnesemia -Hyperphosphatemia -Hypovolumic hypernatremia -Alcohol abuse -Normocytic anemia -Acute transaminitis -Chronic right subdural hematoma -Thrombocytopenia Secondary to alcohol, splenomegaly. now stable -Chronic right subdural hematoma Plan: s/p extubated 09/19 and re-intubated and extubated 09/27. re-intubated 10/01. due to tachypnea and hypoxia. full vent support. Plan for trach today. Low grade fevers with worsening leucocytosis today, repeat cultures sent, u/a, CXR noted, ID input appreciated, Aztreonam added for gm neg coverage, if fails to improve post trach, will need repeat CT Chest/A/P. Chest tube removed. on vanco by level. will need 6-8w abx for OM. CT surgery and ID on board Recurrent afib with RVR overnight, started on amiodarone drip, follow up. should ideally be on coumadin once improved. Renal function slowly improving, ?Diuretic phase of ATN, continue to monitor, renal dosing of meds. s/p 8 units PRBC this admission. Hgb overall stable. no indication for txn. on iron supplementations. Free water flushes and follow up Na level. s/p PEG placement, continue feeds, hold after midnight for trach tomorrow. US shows hepatosplenomegaly and fatty infiltration of liver Continue thiamine, folic acid, multivitamin DVT prophylaxis- heparin sq MICU monitoring. poor overall prognosis. plan for trach tomorrow. pt will likely benefit from LTAC facility. The care of this patient involved high complexity decision making to prevent further life threatening deterioration of the patient's condition and/or to evaluate & treat vital organ system(s) failure or risk of failure. 35 mins
--- NOTE | 2017-10-09 13:50 | PROC ---
Procedure Note Procedure: BRONCHOSCOPY NOTE After discussing risks and benefits with daughter, informed consent was obtained. Storz video bronchoscope was passed via the ETT and the airways were examined down to the subsegental level. There was a large purulent mucous plug at the tapan which was easily lavaged away. There were 3 subcentimeter mucosal lesions in the bronchus intermedius just proximal to the right middle lobe take off. Biopsies were not taken as pt was not consented for biopsy. Trachea was visualized as the surgeon placed a percutaneous tracheostomy. Bronchoscope then passed via the new tracheostomy confirming placement. No active bleeding noted. Bronchoscope withdrawn and procedure terminated. Mariano Mims MD
[2017-10-09] MEDS ORDERED: MAGNESIUM SULF 50% (8.12 MEQ/2 ML-1 GM VIAL) IVPB ONE (14:12)
--- NOTE | 2017-10-09 14:12 | PN ---
Physical Exam: SUBJECTIVE: The patient is a 67M with a PMH of EtOH abuse and HTN. The patient has had multiple intubations during his ICU stay and is currently on his third intubation, being sedated with propofol. Patient began to get agitated last night and was sedated with propofol push, fentanyl push, and then a fentanyl drip. Around 0400 he had a drop in BP and his HR was 140. In addition, he was febrile to 100.9 and was given IV lopressor and IV tylenol. His only acute complaint is R arm pain. Trach scheduled for 1300. OBJECTIVE: Vital Signs Period Temp Pulse Resp BP Sys/Jeff Pulse Ox Last 24 Hr 99.2 F-100.9 F 90-144 22-36 84-147/58-92 99-100 GENERAL: The patient is awake, alert, and fully oriented, in no acute distress. HEAD: Normal with no signs of trauma. EYES: PERRL, extraocular movements intact, sclera anicteric, conjunctiva clear. No ptosis. ENT: Ears normal, nares patent, oropharynx clear without exudates, moist mucous membranes. NECK: Trachea midline, full range of motion, supple. LUNGS: Breath sounds equal, clear to auscultation bilaterally, no wheezes, no crackles, no accessory muscle use. HEART: Regular rate and rhythm, S1, S2 without murmur, rub or gallop. ABDOMEN: Soft, nontender, nondistended, normoactive bowel sounds, no guarding, no rebound, no hepatosplenomegaly, no masses. EXTREMITIES: 2+ pulses, warm, well-perfused, no edema. NEUROLOGICAL: Cranial nerves II through XII grossly intact. Normal speech, gait not observed. PSYCH: Normal mood, normal affect. SKIN: Warm, dry, normal turgor, no rashes or lesions noted Laboratory Results - last 24 hr 10/07/17 10/07/17 10/08/17 06:11 18:04 06:11 WBC RBC Hgb Hct MCV MCH MCHC RDW Plt Count MPV Neutrophils % Lymphocytes % Monocytes % Eosinophils % Basophils % Sodium Potassium Chloride Carbon Dioxide Anion Gap BUN Creatinine Creat Clearance w eGFR POC Glucometer 127.32164 138.71478 162.46011 Random Glucose Calcium Phosphorus Magnesium Total Bilirubin AST ALT Alkaline Phosphatase Total Protein Albumin Random Vancomycin 10/09/17 10/09/17 10/09/17 05:10 05:10 05:10 WBC 21.2 H D RBC 2.51 L Hgb 7.4 L Hct 22.0 L MCV 87.7 MCH 29.3 MCHC 33.4 RDW 18.0 H Plt Count 198 MPV 7.9 Neutrophils % 85.3 H Lymphocytes % 3.9 L D Monocytes % 6.3 Eosinophils % 4.1 Basophils % 0.4 Sodium 138 Potassium 4.2 Chloride 107 Carbon Dioxide 18 L Anion Gap 13 BUN 85 H Creatinine 3.6 H Creat Clearance w eGFR 16.95 POC Glucometer Random Glucose 101 Calcium 8.0 L Phosphorus 5.2 H Magnesium 1.5 L Total Bilirubin 0.6 AST 19 D ALT 7 L D Alkaline Phosphatase 135 H Total Protein 6.9 Albumin 1.9 L Random Vancomycin 12.872 10/09/17 05:58 WBC RBC Hgb Hct MCV MCH MCHC RDW Plt Count MPV Neutrophils % Lymphocytes % Monocytes % Eosinophils % Basophils % Sodium Potassium Chloride Carbon Dioxide Anion Gap BUN Creatinine Creat Clearance w eGFR POC Glucometer 115.93841 Random Glucose Calcium Phosphorus Magnesium Total Bilirubin AST ALT Alkaline Phosphatase Total Protein Albumin Random Vancomycin Active Medications Generic Name Dose Route Start Last Admin Trade Name Freq PRN Reason Stop Dose Admin Acetaminophen 650 mg 10/09/17 05:31 Tylenol - PO Q6H PRN FEVER OR PAIN Amiodarone HCl 200 mg 10/04/17 16:45 10/09/17 10:50 Cordarone - PEG Not Given DAILY [facility] Chlorhexidine Gluconate 15 ml 09/08/17 12:30 10/09/17 11:06 Peridex - MM 10 ml BID [facility] Administration Ferrous Sulfate 325 mg 09/05/17 12:00 10/09/17 09:40 Feosol - PO Not Given DAILY [facility] Folic Acid 1 mg 09/02/17 10:00 10/09/17 10:50 Folic Acid - PO Not Given DAILY [facility] Heparin Sodium (Porcine) 5,000 unit 10/04/17 22:00 10/09/17 09:41 Heparin - SQ Not Given BID [facility] Famotidine/Sodium Chloride 20 mg in 50 mls @ 100 mls/hr 09/28/17 10:00 10:34 Pepcid 20 Mg Premixed Ivpb - IVPB 100 mls/hr BID [facility] Administration Propofol 1,000,000 mcg in 100 mls @ 2.493 mls/hr 10/01/17 12:30 10/09/17 13: 05 Diprivan - IVPB 80.22 mcg/kg/min TITR [facility] 40 mls/hr Protocol Titration 5 MCG/KG/MIN Fentanyl 500 mcg/ Dextrose 100 mls @ 5 mls/hr 10/08/17 22:15 10/09/17 06:03 IVPB 25 mcg/hr TITR [facility] 5 mls/hr Protocol Titration 25 MCG/HR Amiodarone HCl 450 mg/ 250 mls @ 16.66 mls/hr 10/09/17 06:00 10/09/17 12:01 Dextrose IVPB 0.5 mg/min TITR [facility] 16.66 mls/hr Protocol Titration 0.5 MG/MIN Aztreonam 1 gm in 10 mls @ 120 mls/hr 10/09/17 10:00 10/09/17 10:35 Azactam (Restricted To Id) - IVPUSH 120 mls/hr BID [facility] Administration Metoprolol Tartrate 5 mg 10/02/17 16:47 10/09/17 04:20 Lopressor Injection - IVPUSH 5 mg Q6H PRN Administration HYPERTENSION Metoprolol Tartrate 25 mg 10/05/17 08:14 10/09/17 10:51 Lopressor - PEG Not Given BID [facility] Multivitamins/Minerals 1 each 09/02/17 10:00 10/09/17 10:51 Theragran-M PO Not Given DAILY [facility] Mupirocin 1 applic 09/23/17 10:00 10/09/17 11:06 Bactroban 2% Cream - TP 1 applic BID [facility] Administration Sevelamer Carbonate 0.8 gm 10/05/17 08:16 10/09/17 13:01 Renvela Powder Packet - PEG Not Given TIDCM [facility] Thiamine HCl 100 mg 09/02/17 10:00 10/09/17 10:52 Vitamin B1 - PO Not Given DAILY [facility] ASSESSMENT/PLAN: Neuro: - Mild sedation with propofol, will react to questioning CV: - Recurrent a-fib - Amio 200mg via PEG - Lopressor no longer required as BP as return to normal Pulm: - Acute hypoxic respiratory failure - Intubated - Vent settings: - Assist control - RR: 14 - TV: 450 - FiO2: 40% - PEEP: 5 - Plan for tracheostomy - Sepsis 2/2 cavitary PNA - Trach scheduled for 1300 Renal: - ARF; BUN/Cr 85/3.6. Slightly improved - Strict I's and O's - Freeman in place - Renal dose meds : - None GI: - None ID: - Spiked repeat low grade fever, cultures sent yesterday - Redose vancomycin for renal function - Begin Aztreonam for G- coverage - Source is unclear, likely cellulitis of RUE - CXR clear, UA does not indicate UTI Hem/Onc: - Hgb 7.4, stable - Trend Hgb and transfuse as needed Endocrine: - None MSK: - U/S of upper extremity shows no DVT PPX: - Heparin GGT FEN (Fluids, electrolytes, nutrition): - Replenish Mg with 2g MgSO4 - PEG tube feeding Dispo: - Trach at 1300 - Deflate cuff to normal pressure at 1545 Visit type - Emergency Visit Emergency Visit: Yes ED Registration Date: 08/31/17 Care time: The patient presented to the Emergency Department on the above date and was hospitalized for further evaluation of their emergent condition. - New Patient This patient is new to me today: No - Critical Care Critical Care patient: Yes Total Critical Care Time (in minutes): 45 Critical Care Statement: The care of this patient involved high complexity decision making to prevent further life threatening deterioration of the patient 's condition and/or to evaluate & treat vital organ system(s) failure or risk of failure.
--- NOTE | 2017-10-09 16:10 | OPR ---
Patient Name: Darin Smith MR#: [id number] Procedure Date: 10/09/17 Preoperative Diagnosis: Respiratory failure. Postoperative Diagnosis: same. Procedure: 1. Flexible Bronchoscopy (performed by Dr. Mims) 2. Percutaneous tracheostomy with #8 [place]; Indication: Respiratory failure; Surgeon(s): Yousuf Earl MD Cosurgeon: silvio Alpine Guide Surgeon: silvio. Anesthesia: General endotracheal; Findings: Abundant secretions. Specimens Sent: 1. na; Complications: none Drains / Tubes / Catheters: na Hardware / Implants: na Blood / Fluid Losses: minimal Post-Operative Condition: Stable. Indications: This patient is a 67 year-old male with a history of EtOH abuse, rib fractures complicated by pneumonia and inability to clear secretions leading to respiratory failure. We were consulted for placement of tracheostomy due to his respiratory failure. We discussed the tracheostomy with the patient s family. Risks, benefits, and alternatives of the procedure were explained. All questions were addressed and answered and his family agreed. Details of Procedure: The procedure was done at the bedside. We began with bronchoscopy to clear the airway for the procedure. After this, the neck was prepared and draped in standard fashion. We then made a transverse incision below the cricoid cartilage. We withdrew the endotracheal airway until we were at the level of the vocal cords. We inserted the needle from the percutaneous bronchoscopy kit under direct bronchoscopic vision identifying approximately the 2nd to 3rd ring. We then passed a wire under vision. We then dilated up and inserted the tracheostomy. We put the cuff up and connected the ventilator. We placed the bronchoscope through the tracheostomy and then above. There was no significant bleeding and placement was good.
--- NOTE | 2017-10-09 16:13 | PN ---
Physical Exam: SUBJECTIVE: Patient seen and examined at bedside. Patient is s/p tracheostomy procedure today. OBJECTIVE: Vital Signs Period Temp Pulse Resp BP Sys/Jeff Pulse Ox Last 24 Hr 99.2 F-100.9 F 90-144 20-34 84-147/58-96 99-100 GENERAL: Intubated, sedated ENT: nares patent without signs of bleeding LUNGS: patient is trached, mechanical breath sounds, b/l rhonchi noted HEART: regular rate/rhythm, normal S1/S2 ABDOMEN: Soft, ntnd EXTREMITIES: 2+ pulses, 1+ pitting edema Lower>Upper SKIN: diffuse, erythematous, blanching rash noted on upper extremities and chest Laboratory Results - last 24 hr 10/07/17 10/07/17 10/08/17 06:11 18:04 06:11 WBC RBC Hgb Hct MCV MCH MCHC RDW Plt Count MPV Neutrophils % Lymphocytes % Monocytes % Eosinophils % Basophils % Sodium Potassium Chloride Carbon Dioxide Anion Gap BUN Creatinine Creat Clearance w eGFR POC Glucometer 127.11320 138.62995 [phone] Random Glucose Calcium Phosphorus Magnesium Total Bilirubin AST ALT Alkaline Phosphatase Total Protein Albumin Random Vancomycin 10/09/17 10/09/17 10/09/17 05:10 05:10 05:10 WBC 21.2 H D RBC 2.51 L Hgb 7.4 L Hct 22.0 L MCV 87.7 MCH 29.3 MCHC 33.4 RDW 18.0 H Plt Count 198 MPV 7.9 Neutrophils % 85.3 H Lymphocytes % 3.9 L D Monocytes % 6.3 Eosinophils % 4.1 Basophils % 0.4 Sodium 138 Potassium 4.2 Chloride 107 Carbon Dioxide 18 L Anion Gap 13 BUN 85 H Creatinine 3.6 H Creat Clearance w eGFR 16.95 POC Glucometer Random Glucose 101 Calcium 8.0 L Phosphorus 5.2 H Magnesium 1.5 L Total Bilirubin 0.6 AST 19 D ALT 7 L D Alkaline Phosphatase 135 H Total Protein 6.9 Albumin 1.9 L Random Vancomycin 12.872 10/09/17 05:58 WBC RBC Hgb Hct MCV MCH MCHC RDW Plt Count MPV Neutrophils % Lymphocytes % Monocytes % Eosinophils % Basophils % Sodium Potassium Chloride Carbon Dioxide Anion Gap BUN Creatinine Creat Clearance w eGFR POC Glucometer 115.22426 Random Glucose Calcium Phosphorus Magnesium Total Bilirubin AST ALT Alkaline Phosphatase Total Protein Albumin Random Vancomycin Active Medications Generic Name Dose Route Start Last Admin Trade Name Freq PRN Reason Stop Dose Admin Acetaminophen 650 mg 10/09/17 05:31 Tylenol - PO Q6H PRN FEVER OR PAIN Amiodarone HCl 200 mg 10/04/17 16:45 10/09/17 10:50 Cordarone - PEG Not Given DAILY [facility] Chlorhexidine Gluconate 15 ml 09/08/17 12:30 10/09/17 11:06 Peridex - MM 10 ml BID [facility] Administration Ferrous Sulfate 325 mg 09/05/17 12:00 10/09/17 09:40 Feosol - PO Not Given DAILY [facility] Folic Acid 1 mg 09/02/17 10:00 10/09/17 10:50 Folic Acid - PO Not Given DAILY [facility] Heparin Sodium (Porcine) 5,000 unit 10/04/17 22:00 10/09/17 09:41 Heparin - SQ Not Given BID [facility] Famotidine/Sodium Chloride 20 mg in 50 mls @ 100 mls/hr 09/28/17 10:00 10:34 Pepcid 20 Mg Premixed Ivpb - IVPB 100 mls/hr BID [facility] Administration Propofol 1,000,000 mcg in 100 mls @ 2.493 mls/hr 10/01/17 12:30 10/09/17 13: 15 Diprivan - IVPB 80.22 mcg/kg/min TITR [facility] 40 mls/hr Protocol Administration 5 MCG/KG/MIN Fentanyl 500 mcg/ Dextrose 100 mls @ 5 mls/hr 10/08/17 22:15 10/09/17 14:00 IVPB 12.5 mcg/hr TITR [facility] 2.5 mls/hr Protocol Titration 25 MCG/HR Aztreonam 1 gm in 10 mls @ 120 mls/hr 10/09/17 10:00 10/09/17 10:35 Azactam (Restricted To Id) - IVPUSH 120 mls/hr BID [facility] Administration Metoprolol Tartrate 5 mg 10/02/17 16:47 10/09/17 04:20 Lopressor Injection - IVPUSH 5 mg Q6H PRN Administration HYPERTENSION Metoprolol Tartrate 25 mg 10/05/17 08:14 10/09/17 10:51 Lopressor - PEG Not Given BID [facility] Multivitamins/Minerals 1 each 09/02/17 10:00 10/09/17 10:51 Theragran-M PO Not Given DAILY [facility] Mupirocin 1 applic 09/23/17 10:00 10/09/17 11:06 Bactroban 2% Cream - TP 1 applic BID [facility] Administration Sevelamer Carbonate 0.8 gm 10/05/17 08:16 10/09/17 13:01 Renvela Powder Packet - PEG Not Given TIDCM [facility] Thiamine HCl 100 mg 09/02/17 10:00 10/09/17 10:52 Vitamin B1 - PO Not Given DAILY [facility] ASSESSMENT/PLAN: 66yo man with PMH of EtOH abuse and HTN who is admitted (08/31) for acute hypoxic respiratory failure requiring mechanical ventilation (09/02-09/19, 09/24- , 10/01-). Continues to have cavitary PNA with loculated effusions bilaterally and acute thoracic osteomyletitis (T9-T10), currently on Vancomycin (renally dosed). Renal function improving, and maintaining UOP. ICU team discussing with patient need for tracheostomy as this is 3rd intubation. s/p PEG and getting tube feeds #sepsis 2/2 cavitary PNA, acute osteomyelitis, s/p MSSA bacteremia -ID following, long-term abx needed for acute osteomyelitis (6-8 wks), antibiotics day#33 -Vancomycin 500mg IV (dosed renally); check Random Vanc level daily (~12 today) -ID started aztreonam -patient is s/p tracheostomy #acute hypoxic respiratory failure -Vent mgmt per ICU team -s/p trach #ARF, Renal following, still considering HD, renal function slight improvement today -Ferrous Sulfate 325 mg PEG DAILY and Sevelamer Carbonate (Renvela) 800 mg PEG TID -Strict I&Os, hines, Renal dose for meds #Acute blood loss anemia -s/p 7Ux PRBCs, Hgb stable at 7.9 today, no further bleeds -Trend H&H, transfuse Hgb<7 #Atrial fibrillation - recurrent episode last night, started on amio gtt -Cardiology following -continue Amiodarone 200mg PEG qd for rate control -hold AC now given co-morbidities (CHADVASC 2) #Chronic Diastolic heart failure -ECHO 09/02/2017 probable preserved LV function, but can't R/O regional wall motion abnormality -Metoprolol 25mg PEG BID and 5mg IV Q6H PRN -consider hydralazine prn #EtOH abuse -Monitor for signs of EtOH withdrawal, unlikely at this point in hospitalization -MVI, thiamine 100mg PEG qd, folic acid 1mg PEG daily #FEN -No current standing fluids -hyperPhos noted previously, continue Sevelamer TID -Enteral feeds via PEG with free water flushes #PPX -Heparin 5000U SQ BID -GI - pepcid 20mg IV BID #Dispo: continue ICU monitoring FULL code -Try to attain [facility] when discharged Visit type - Emergency Visit Emergency Visit: No - New Patient This patient is new to me today: No - Critical Care Critical Care patient: Yes Total Critical Care Time (in minutes): 50 Critical Care Statement: The care of this patient involved high complexity decision making to prevent further life threatening deterioration of the patient 's condition and/or to evaluate & treat vital organ system(s) failure or risk of failure.
--- NOTE | 2017-10-09 19:41 | PN ---
Progress Note (short form) - Note Progress Note: Was called to see pt because of labored tachypnea. Pt denies pain but admits to SOB. Pt breathing at 35 with accessory muscle use. O2 sats 98% on FiO2 40%. Pt is s/p tracheostomy today. Propofol and Fentanyl were d/c'ed around 4PM. Fentanyl was restarted. Peripheral CO2 monitor was placed and revealed CO2 of 30. CXR ordered. BP 166/92, HR 115.
[2017-10-09] MEDS ORDERED: PT OWN MED DRAWER 7, Y5N ONE ×2 (21:04→22:43)
[2017-10-10] MEDS ORDERED: fentaNYL CITRATE 250 MCG/5 ML VIAL ONE ×3 (00:42→19:25)
[2017-10-10 07:10] LABS: BASOPHIL 0.5 % (0-2.0); EOSINOPHIL 4.3 % (0-4.5); MCH 29.1 pg (25.7-33.7); MCHC 33.2 g/dl (32.0-35.9); MEAN CELL VOLUME 87.6 fl (80-96); MEAN PLT VOLUME 7.6 fl (7.5-11.1); NEUTROPHILS 83.8 % (42.8-82.8); PLATELET COUNT 192 K/MM3 (134-434); RDW 18.1 % (11.9-15.9); WHITE BLOOD COUNT 18.4 K/mm3 (4.0-10.0)
[2017-10-10 07:12] LABS: ALBUMIN 1.8 g/dl (3.4-5.0); ANION GAP 13 (8-16); CALCIUM 8.3 mg/dL (8.5-10.1); CO2 18 mmol/L (21-32); GLUCOSE,RANDOM 101 mg/dL (74-106)
[2017-10-10 07:14] LABS: ALK PHOS 137 U/L (45-117); BILIRUBIN,TOTAL 0.6 mg/dL (0.2-1.0); CREATININE 3.8 mg/dL (0.7-1.3); PHOSPHOROUS 6.7 mg/dL (2.5-4.9); SGOT/AST 17 U/L (15-37); SGPT/ALT < 6 U/L (12-78)
--- NOTE | 2017-10-10 07:20 | PN ---
Progress Note, Physician Chief Complaint: ID Alert on the ventilator Vancomycin continues day 34 of planned 8 weeks of therapy MSSA bacteremia disciitis - Current Medication List Current Medications: Active Medications Acetaminophen (Tylenol -) 650 mg PO Q6H PRN PRN Reason: FEVER OR PAIN Amiodarone HCl (Cordarone -) 200 mg PEG DAILY [facility] Last Admin: 10/09/17 10:50 Dose: Not Given Chlorhexidine Gluconate (Peridex -) 15 ml MM BID [facility] Last Admin: 10/09/17 21:07 Dose: 15 ml Ferrous Sulfate (Feosol -) 325 mg PO DAILY [facility] Last Admin: 10/09/17 09:40 Dose: Not Given Folic Acid (Folic Acid -) 1 mg PO DAILY [facility] Last Admin: 10/09/17 10:50 Dose: Not Given Heparin Sodium (Porcine) (Heparin -) 5,000 unit SQ BID [facility] Last Admin: 10/09/17 21:07 Dose: 5,000 unit Famotidine/Sodium Chloride (Pepcid 20 Mg Premixed Ivpb -) 20 mg in 50 mls @ 100 mls/hr IVPB BID [facility] Last Admin: 10/09/17 21:06 Dose: 100 mls/hr Propofol (Diprivan -) 1,000,000 mcg in 100 mls @ 2.493 mls/hr IVPB TITR [facility]; 5 MCG/KG/MIN PRN Reason: Protocol Last Titration: 10/09/17 16:00 Dose: 0 mcg/kg/min, 0 mls/hr Fentanyl 500 mcg/ Dextrose 100 mls @ 5 mls/hr IVPB TITR [facility]; 25 MCG/HR PRN Reason: Protocol Last Admin: 10/09/17 22:15 Dose: 100 mcg/hr, 20 mls/hr Aztreonam (Azactam (Restricted To Id) -) 1 gm in 10 mls @ 120 mls/hr IVPUSH BID [facility] Last Admin: 10/09/17 21:06 Dose: 120 mls/hr Metoprolol Tartrate (Lopressor Injection -) 5 mg IVPUSH Q6H PRN PRN Reason: HYPERTENSION Last Admin: 10/09/17 04:20 Dose: 5 mg Metoprolol Tartrate (Lopressor -) 25 mg PEG BID [facility] Last Admin: 10/09/17 21:07 Dose: Not Given Multivitamins/Minerals (Theragran-M) 1 each PO DAILY [facility] Last Admin: 10/09/17 10:51 Dose: Not Given Mupirocin (Bactroban 2% Cream -) 1 applic TP BID [facility] Last Admin: 10/09/17 23:26 Dose: 1 applic Sevelamer Carbonate (Renvela Powder Packet -) 0.8 gm PEG TIDCM [facility] Last Admin: 10/09/17 19:07 Dose: Not Given Thiamine HCl (Vitamin B1 -) 100 mg PO DAILY [facility] Last Admin: 10/09/17 10:52 Dose: Not Given - Objective Vital Signs: Vital Signs Temperature 98.9 F 10/10/17 06:00 Pulse Rate 106 H 10/10/17 06:00 Respiratory Rate 27 H 10/10/17 06:00 Blood Pressure 110/67 10/10/17 06:00 O2 Sat by Pulse Oximetry (%) 99 10/09/17 20:42 Constitutional: Yes: Well Nourished, No Distress Neck: Yes: Other (Tracheostomy (new)) Cardiovascular: Yes: Regular Rate and Rhythm, S1, S2. No: Murmur Respiratory: Yes: WNL, Regular, CTA Bilaterally. No: Rhonchi Gastrointestinal: Yes: WNL, Normal Bowel Sounds, Soft. No: Tenderness Integumentary: Yes: Rash Labs: INR, PTT INR 1.14 (0.82-1.09) D 10/03/17 05:22 Problem List - Problems (1) Respiratory failure with hypoxia Code(s): J96.91 - RESPIRATORY FAILURE, UNSPECIFIED WITH HYPOXIA Qualifiers: Chronicity: acute Qualified Code(s): J96.01 - Acute respiratory failure with hypoxia (2) Pneumonia Code(s): J18.9 - PNEUMONIA, UNSPECIFIED ORGANISM Qualifiers: Pneumonia type: aspiration pneumonia (3) Staphylococcus aureus bacteremia Code(s): R78.81 - BACTEREMIA (5) Endocarditis due to Staphylococcus Code(s): I33.0 - ACUTE AND SUBACUTE INFECTIVE ENDOCARDITIS; B95.8 - UNSP STAPHYLOCOCCUS THE CAUSE OF DISEASES CLASSD ELSWHR (6) Discitis of cervicothoracic region Code(s): M46.43 - DISCITIS, UNSPECIFIED, CERVICOTHORACIC REGION Assessment/Plan Laboratory Tests 10/08/17 10/08/17 10/09/17 06:00 08:00 05:10 WBC 21.2 H D Hgb 7.4 L Hct 22.0 L Plt Count 198 Neutrophils % 85.3 H Monocytes % 6.3 ESR > 130 H BUN Creatinine Creat Clearance w eGFR Total Bilirubin AST ALT Alkaline Phosphatase Ur Leukocyte Esterase Trace H Urine Eosinophils 10/09/17 10/09/17 10/10/17 05:10 15:15 05:35 WBC Pending Hgb Pending Hct Pending Plt Count Pending Neutrophils % Monocytes % ESR BUN 85 H Creatinine 3.6 H Creat Clearance w eGFR 16.95 Total Bilirubin 0.6 AST 19 D ALT 7 L D Alkaline Phosphatase 135 H Ur Leukocyte Esterase Urine Eosinophils Pending Assessment MSSA bacteremia with sepsis Vertebral osteomyelitis MSSA Post chest tube drainage of pleural effusions Acute renal failure on basis of sepsis and possible component interstitial nephritis Beta lactam rash thus Vancomycin Fever ?? so empiric addition of gram neg coverage per Dr Mendoza Tracheostomy Plan Order sputum culture to see if we can stop Aztreonam U/A urine culture Redose Vancomycin today 1.25 grs Esau EMERY Critical care time spent 35minutes
[2017-10-10] MEDS ORDERED: VANCOMYCIN 1,250 MG in DEXTROSE 5%-WATER - 250 ML IVPB ONE (07:23)
[2017-10-10] MEDS: SEVELAMER CARBONATE 0.8 GM POWDER PACKET PEG SCH ×3 (08:00→18:04)
--- NOTE | 2017-10-10 09:11 | PN ---
Progress Note, Physician Chief Complaint: Remains in ICU and remains intubated. Awake Sinus tachycardia History of Present Illness: Patient was seen and examined in ICU. Remains on mechanical ventilation. Chart was reviewed On Fentanyl - Current Medication List Current Medications: Active Medications Acetaminophen (Tylenol -) 650 mg PO Q6H PRN PRN Reason: FEVER OR PAIN Amiodarone HCl (Cordarone -) 200 mg PEG DAILY [facility] Last Admin: 10/09/17 10:50 Dose: Not Given Chlorhexidine Gluconate (Peridex -) 15 ml MM BID [facility] Last Admin: 10/09/17 21:07 Dose: 15 ml Ferrous Sulfate (Feosol -) 325 mg PO DAILY [facility] Last Admin: 10/09/17 09:40 Dose: Not Given Folic Acid (Folic Acid -) 1 mg PO DAILY [facility] Last Admin: 10/09/17 10:50 Dose: Not Given Famotidine/Sodium Chloride (Pepcid 20 Mg Premixed Ivpb -) 20 mg in 50 mls @ 100 mls/hr IVPB BID [facility] Last Admin: 10/09/17 21:06 Dose: 100 mls/hr Propofol (Diprivan -) 1,000,000 mcg in 100 mls @ 2.493 mls/hr IVPB TITR [facility]; 5 MCG/KG/MIN PRN Reason: Protocol Last Titration: 10/09/17 16:00 Dose: 0 mcg/kg/min, 0 mls/hr Fentanyl 500 mcg/ Dextrose 100 mls @ 5 mls/hr IVPB TITR [facility]; 25 MCG/HR PRN Reason: Protocol Last Admin: 10/09/17 22:15 Dose: 100 mcg/hr, 20 mls/hr Aztreonam (Azactam (Restricted To Id) -) 1 gm in 10 mls @ 120 mls/hr IVPUSH BID [facility] Last Admin: 10/09/17 21:06 Dose: 120 mls/hr Metoprolol Tartrate (Lopressor Injection -) 5 mg IVPUSH Q6H PRN PRN Reason: HYPERTENSION Last Admin: 10/09/17 04:20 Dose: 5 mg Metoprolol Tartrate (Lopressor -) 25 mg PEG BID [facility] Last Admin: 10/09/17 21:07 Dose: Not Given Multivitamins/Minerals (Theragran-M) 1 each PO DAILY [facility] Last Admin: 10/09/17 10:51 Dose: Not Given Mupirocin (Bactroban 2% Cream -) 1 applic TP BID [facility] Last Admin: 10/09/17 23:26 Dose: 1 applic Sevelamer Carbonate (Renvela Powder Packet -) 0.8 gm PEG TIDCM [facility] Last Admin: 10/09/17 19:07 Dose: Not Given Thiamine HCl (Vitamin B1 -) 100 mg PO DAILY [facility] Last Admin: 10/09/17 10:52 Dose: Not Given - Objective Vital Signs: Vital Signs Temperature 97.8 F 10/10/17 08:00 Pulse Rate 107 H 10/10/17 08:00 Respiratory Rate 28 H 10/10/17 08:00 Blood Pressure 134/71 10/10/17 08:00 O2 Sat by Pulse Oximetry (%) 96 10/10/17 08:00 Cardiovascular: Yes: Regular Rate and Rhythm, Tachycardia, S1, S2 Respiratory: Yes: Diminished, Mechanically Ventilated Gastrointestinal: Yes: Normal Bowel Sounds, Soft. No: Tenderness Edema: Yes Edema: LLE: 1+, RLE: 1+ Labs: CBC, BMP 10/10/17 05:35 10/10/17 05:35 Problem List - Problems (1) Abuse, drug or alcohol Code(s): F19.10 - OTHER PSYCHOACTIVE SUBSTANCE ABUSE, UNCOMPLICATED (2) Respiratory failure with hypoxia Code(s): J96.91 - RESPIRATORY FAILURE, UNSPECIFIED WITH HYPOXIA Qualifiers: Chronicity: acute Qualified Code(s): J96.01 - Acute respiratory failure with hypoxia (3) Pneumonia Code(s): J18.9 - PNEUMONIA, UNSPECIFIED ORGANISM Qualifiers: Pneumonia type: aspiration pneumonia (5) History of alcohol abuse Code(s): Z87.898 - PERSONAL HISTORY OF OTHER SPECIFIED CONDITIONS (6) Acute diastolic heart failure Code(s): I50.31 - ACUTE DIASTOLIC (CONGESTIVE) HEART FAILURE (7) Anemia Code(s): D64.9 - ANEMIA, UNSPECIFIED Qualifiers: Anemia type: unspecified type Qualified Code(s): D64.9 - Anemia, unspecified Assessment/Plan 1. Paroxysmal atrial fibrillation [id number] score of 2 - off Eliquis 2. Acute hypoxic respiratory failure, post re-intubated, pulmonary infiltrates/ pulmonary edema improving 3. Cavitating pneumonia, MSSA bacteremia, post septic shock no evidence of endocarditis by ALISA criteria 4. Diastolic LV dysfunction with class I-II NYHA congestive heart failure, volume overload, resolved 5. 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 Loculated effusion post chest tube insertion 7. History of alcohol dependence 8. Acute renal insufficiency 9. Hypernatremia 10. Anemia PLAN: 1. Vent support 2. Continue beta amairani - resume Lopressor via PEG 3. Resume Amiodarone via PEG 4. Antibiotics as per ID service - elevated WBC 5. Currently not getting any anticoagulation in view of current clinical status , but will reassess whether it is appropriate and not contraindicated Further plans are to follow Jordon Gtz MD
[2017-10-10] MEDS ORDERED: PT OWN MED DRAWER 7, Y5N ONE ×3 (09:16→21:23)
[2017-10-10] MEDS: AZTREONAM 1 GRAM SYRINGE 1 GM/10 ML DISP.SYRIN IVPUSH SCH ×2 (09:18→21:27)
[2017-10-10] MEDS: FERROUS SO4 325 MG TABLET (FP) PO SCH (09:19)
[2017-10-10] MEDS: CHLORHEXIDINE GLUCONATE 0.12% 15ML CUP MM SCH ×2 (09:19→21:28)
[2017-10-10] MEDS: MUPIROCIN CA 2% TOPICAL CREAM 15 GM TUBE TP SCH ×2 (09:19→21:27)
[2017-10-10] MEDS: METOPROLOL TARTRATE 25 MG TABLET (FP) PEG SCH ×2 (09:19→21:27)
[2017-10-10] MEDS: FOLIC ACID 1 MG TABLET (FP) PO SCH (09:19)
[2017-10-10] MEDS: FAMOTIDINE 20 MG/50 ML IVPB 20 MG/50 ML MG IVPB SCH ×2 (09:19→21:27)
[2017-10-10] MEDS: AMIODARONE HCL 200 MG TABLET (FP) PEG SCH (09:19)
[2017-10-10] MEDS: THIAMINE HCL 100 MG TABLET (FP) PO SCH (09:20)
[2017-10-10] MEDS: MULTIVITAMINS THER W-MINERALS COMBO TABLET (FP) PO SCH (09:20)
--- NOTE | 2017-10-10 11:12 | PN ---
Physical Exam: SUBJECTIVE: Patient seen and examined, s/p tracheostomy yesterday. After procedure patient did have significant amount of bloody secretion. Was tachypniec overnight, propofol, low dose restarted. Repeat CXR last night s/p trach showing atelectasis. This am he still was shot of breath, coughing. Currently sating high 90s FIO2 40%. Denies chest pain, other body pain. With PEG tube; feeds re started today. Heme and hematocrit dropped this am, PRBC ordered. OBJECTIVE: Vital Signs Period Temp Pulse Resp BP Sys/Jeff Pulse Ox Last 24 Hr 97.8 F-99.8 F 87-114 20-39 110-143/59-96 96-99 GENERAL: The patient is awake, alert, with tracheostomy, LUNGS: scattered rhonchi, crackles; b/l HEART: Regular rate and rhythm, S1, S2 without murmur, rub or gallop. ABDOMEN: Soft, nontender, nondistended, normoactive bowel sounds, no guarding, no rebound, no hepatosplenomegaly, no masses. PEG tube EXTREMITIES: 2+ pulses, warm, well-perfused,UE and LE edema, improved Laboratory Results - last 24 hr 10/10/17 10/10/17 10/10/17 05:35 05:35 08:25 WBC 18.4 H RBC 2.27 L Hgb 6.6 L* D Hct 19.9 L MCV 87.6 MCH 29.1 MCHC 33.2 RDW 18.1 H Plt Count 192 MPV 7.6 Neutrophils % 83.8 H Lymphocytes % 4.5 L Monocytes % 6.9 Eosinophils % 4.3 Basophils % 0.5 Sodium 140 Potassium 4.6 Chloride 109 H Carbon Dioxide 18 L Anion Gap 13 BUN 88 H Creatinine 3.8 H Creat Clearance w eGFR 15.92 Random Glucose 101 Calcium 8.3 L Phosphorus 6.7 H D Magnesium 2.0 D Total Bilirubin 0.6 AST 17 ALT < 6 L Alkaline Phosphatase 137 H Total Protein 7.0 Albumin 1.8 L Blood Type O NEGATIVE Antibody Screen Negative Crossmatch See Detail Active Medications Generic Name Dose Route Start Last Admin Trade Name Freq PRN Reason Stop Dose Admin Acetaminophen 650 mg 10/09/17 05:31 Tylenol - PO Q6H PRN FEVER OR PAIN Amiodarone HCl 200 mg 10/04/17 16:45 11/23/17 09:19 Cordarone - PEG 200 mg DAILY [facility] Administration Chlorhexidine Gluconate 15 ml 09/08/17 12:30 10/10/17 09:19 Peridex - MM 15 ml BID [facility] Administration Ferrous Sulfate 325 mg 09/05/17 12:00 10/10/17 09:19 Feosol - PO 325 mg DAILY [facility] Administration Folic Acid 1 mg 09/02/17 10:00 10/10/17 09:19 Folic Acid - PO 1 mg DAILY [facility] Administration Famotidine/Sodium Chloride 20 mg in 50 mls @ 100 mls/hr 09/28/17 10:00 09:19 Pepcid 20 Mg Premixed Ivpb - IVPB 100 mls/hr BID [facility] Administration Fentanyl 500 mcg/ Dextrose 100 mls @ 5 mls/hr 10/08/17 22:15 10/09/17 22:15 IVPB 100 mcg/hr TITR [facility] 20 mls/hr Protocol Administration 25 MCG/HR Aztreonam 1 gm in 10 mls @ 120 mls/hr 10/09/17 10:00 10/10/17 09:18 Azactam (Restricted To Id) - IVPUSH 120 mls/hr BID [facility] Administration Metoprolol Tartrate 5 mg 10/02/17 16:47 10/09/17 04:20 Lopressor Injection - IVPUSH 5 mg Q6H PRN Administration HYPERTENSION Metoprolol Tartrate 25 mg 10/05/17 08:14 10/10/17 09:19 Lopressor - PEG 25 mg BID [facility] Administration Multivitamins/Minerals 1 each 09/02/17 10:00 10/10/17 09:20 Theragran-M PO 1 each DAILY [facility] Administration Mupirocin 1 applic 09/23/17 10:00 10/10/17 09:19 Bactroban 2% Cream - TP 1 applic BID [facility] Administration Sevelamer Carbonate 0.8 gm 10/05/17 08:16 10/10/17 08:00 Renvela Powder Packet - PEG 0.8 gm TIDCM [facility] Administration Thiamine HCl 100 mg 09/02/17 10:00 10/10/17 09:20 Vitamin B1 - PO 100 mg DAILY [facility] Administration ASSESSMENT/PLAN: 67 year old male admitted with acute hypoxic respiratory failure secondary sepsis from loculated pneumonia with to sepsis bacteremia with multiple intubations, now s/p tracheostomy. #sepsis secondary to cavitary pneumonia with mssa bacteremia -last blood culture negative form 10/08 -sputum culture pending -cont IV aztreoman and vancomycin (daily dose) #acute respiratory failure secondary to PNA -s/p tracheostomy on 10/09 -oral bloody secretion; improved -sating well on 40FiO2 #acute renal failure: stable -Cr 3.6 today -multifactorial etiology -Ferrous Sulfate 325 mg PEG DAILY -Sevelamer [id number] mg PEG TID -renal appreciated #anemia secondary to blood loss following tracheostomy" -heme 6.6 today -transfuse 2U PRBC; repeat cbc afternoon #atrial fibrillation: -amiodarone 200mg PEG tube qd -metoprolol 5mg IVP prn for rate control with parameters; if HR >120 -appreciate cardio #diastolic CHF: -echo appreciated -cont metoprolol 25 mg peg bid Holding parameteres; hold ig HR <60 and BP <80 systolic #alcohol abuse: -folic acid; thiamine; Diet: tube feeds: nepro HOld AC for now due to bleed GI proph; pepcid Disposition: plan for LTAC; challenge Problem List - Problems (1) Hyponatremia Code(s): E87.1 - HYPO-OSMOLALITY AND HYPONATREMIA (2) Hypokalemia Code(s): E87.6 - HYPOKALEMIA (3) Respiratory failure with hypoxia Code(s): J96.91 - RESPIRATORY FAILURE, UNSPECIFIED WITH HYPOXIA Qualifiers: Chronicity: acute Qualified Code(s): J96.01 - Acute respiratory failure with hypoxia (4) Pneumonia Code(s): J18.9 - PNEUMONIA, UNSPECIFIED ORGANISM Qualifiers: Pneumonia type: aspiration pneumonia (5) Staphylococcus aureus bacteremia Code(s): R78.81 - BACTEREMIA (7) History of alcohol abuse Code(s): Z87.898 - PERSONAL HISTORY OF OTHER SPECIFIED CONDITIONS (8) Acute diastolic heart failure Code(s): I50.31 - ACUTE DIASTOLIC (CONGESTIVE) HEART FAILURE (9) Acute kidney injury Code(s): N17.9 - ACUTE KIDNEY FAILURE, UNSPECIFIED (10) Hypernatremia Code(s): E87.0 - HYPEROSMOLALITY AND HYPERNATREMIA (11) Paroxysmal atrial fibrillation Code(s): I48.0 - PAROXYSMAL ATRIAL FIBRILLATION Visit type - Emergency Visit Emergency Visit: Yes ED Registration Date: 08/31/17 Care time: The patient presented to the Emergency Department on the above date and was hospitalized for further evaluation of their emergent condition. - New Patient This patient is new to me today: No - Critical Care Critical Care patient: Yes Total Critical Care Time (in minutes): 35 Critical Care Statement: The care of this patient involved high complexity decision making to prevent further life threatening deterioration of the patient 's condition and/or to evaluate & treat vital organ system(s) failure or risk of failure.
--- NOTE | 2017-10-10 11:36 | PN ---
Teaching Attending Note Name of Resident: Tejal Ortiz ATTENDING PHYSICIAN STATEMENT Time of evaluation: 8:25 AM I saw and evaluated the patient. I reviewed the resident's note and discussed the case with the resident. I agree with the resident's findings and plan as documented. SUBJECTIVE: Patient seen and examined. Tracheostomy in place, tachypneic, but awake, able to nod, denies any pain. further exam limited. OBJECTIVE: Vital Signs Period Temp Pulse Resp BP Sys/Jeff Pulse Ox Last 24 Hr 97.8 F-99.8 F 87-114 20-39 110-143/59-96 96-99 Intake & Output 10/07/17 10/08/17 10/09/17 10/10/17 23:59 23:59 23:59 23:59 Intake Total 1987 2853 1460 80 Output Total 1900 2200 1500 Balance 88 653 -40 80 Weight 187 lb 11.2 oz 189 lb 2.506 oz 191 lb 2.252 oz 186 lb 3.2 oz GEneral: trach in place, tachypneic in bed, awake CVS: S1S2 regular Chest: scattered rales Abdomen: soft, obese, NT Extremities RLE lesions improving, no active discharge, anasarca Home Medication List Medication Instructions Recorded Confirmed Type Unobtainable [Unobtainable] 08/31/17 08/31/17 History Active Medications Generic Name Dose Route Start Last Admin Trade Name Freq PRN Reason Stop Dose Admin Acetaminophen 650 mg 10/09/17 05:31 Tylenol - PO Q6H PRN FEVER OR PAIN Amiodarone HCl 200 mg 10/04/17 16:45 10/10/17 09:19 Cordarone - PEG 200 mg DAILY [facility] Administration Chlorhexidine Gluconate 15 ml 09/08/17 12:30 10/10/17 09:19 Peridex - MM 15 ml BID [facility] Administration Ferrous Sulfate 325 mg 09/05/17 12:00 10/10/17 09:19 Feosol - PO 325 mg DAILY [facility] Administration Folic Acid 1 mg 09/02/17 10:00 10/10/17 09:19 Folic Acid - PO 1 mg DAILY [facility] Administration Famotidine/Sodium Chloride 20 mg in 50 mls @ 100 mls/hr 09/28/17 10:00 09:19 Pepcid 20 Mg Premixed Ivpb - IVPB 100 mls/hr BID [facility] Administration Fentanyl 500 mcg/ Dextrose 100 mls @ 5 mls/hr 10/08/17 22:15 10/09/17 22:15 IVPB 100 mcg/hr TITR [facility] 20 mls/hr Protocol Administration 25 MCG/HR Aztreonam 1 gm in 10 mls @ 120 mls/hr 10/09/17 10:00 10/10/17 09:18 Azactam (Restricted To Id) - IVPUSH 120 mls/hr BID [facility] Administration Metoprolol Tartrate 5 mg 10/02/17 16:47 10/09/17 04:20 Lopressor Injection - IVPUSH 5 mg Q6H PRN Administration HYPERTENSION Metoprolol Tartrate 25 mg 10/05/17 08:14 10/10/17 09:19 Lopressor - PEG 25 mg BID [facility] Administration Multivitamins/Minerals 1 each 09/02/17 10:00 10/10/17 09:20 Theragran-M PO 1 each DAILY [facility] Administration Mupirocin 1 applic 09/23/17 10:00 10/10/17 09:19 Bactroban 2% Cream - TP 1 applic BID [facility] Administration Sevelamer Carbonate 0.8 gm 10/05/17 08:16 10/10/17 08:00 Renvela Powder Packet - PEG 0.8 gm TIDCM [facility] Administration Thiamine HCl 100 mg 09/02/17 10:00 10/10/17 09:20 Vitamin B1 - PO 100 mg DAILY [facility] Administration Microbiology 10/08/17 09:10 Blood - Peripheral Venous Blood Culture - Preliminary NO GROWTH OBTAINED AFTER 48 HOURS, INCUBATION TO CONTINUE FOR 3 DAYS. 10/08/17 09:15 Blood - Peripheral Venous Blood Culture - Preliminary NO GROWTH OBTAINED AFTER 48 HOURS, INCUBATION TO CONTINUE FOR 3 DAYS. 09/08/17 18:00 Pleural Fluid MAGI Preparation - Final 09/08/17 18:00 Pleural Fluid Fungal Culture - Final CXR- with some improvement in aeration, tracheostomy in place ASSESSMENT AND PLAN: -Acute hypoxic respiratory failure -Severe sepsis due to cavitary PNA, MSSA bacteremia, ALISA neg for vegetation -Large right loculated pleural effusion, s/p chest tube -Aspiration risk -Acute T9-T10 discitis/osteomyelitis -Hematochezia -ARF, from sepsis related ATN vs medication related, ?AIN -Acute on chronic anemia, suspect from renal dysfunction, episode of hematochezia suspected from rectal tube/heparin, resolved -AFib with RVR recurrent -Rash, ?medication induced , monitor for now. -Hypokalemia/hypomagnesemia -Hyperphosphatemia -Hypovolumic hypernatremia -Alcohol abuse -Normocytic anemia, now acute blood loss anemia from trach (suctioned blood and clots from trach 10/09) -Acute transaminitis -Chronic right subdural hematoma -Thrombocytopenia Secondary to alcohol, splenomegaly. now stable -Chronic right subdural hematoma Plan: s/p extubated 09/19 and re-intubated and extubated 09/27. re-intubated 10/01. due to tachypnea and hypoxia. full vent support. s/p trach 10/09. No further fevers, improved WBC, continue trach suction, sputum cultures, repeat cultures sent, u/a, CXR noted, ID input appreciated, Aztreonam added for gm neg coverage, if fails to improve post trach, will need repeat CT Chest/A/P. Chest tube removed. on vanco by level. will need 6-8w abx for OM. CT surgery and ID on board back in sinus rhythm, Amiodarin and lopressor via PEG. should ideally be on coumadin once improved. Renal function slowly improving, ?Diuretic phase of ATN, continue to monitor, renal dosing of meds. s/p 8 units PRBC this admission. Recurrent anemia from blood loss as above from trach site with suctioning of clots. Transfuse 1unit PRBC Free water flushes prn and follow up Na level. s/p PEG placement, continue feeds US shows hepatosplenomegaly and fatty infiltration of liver Continue thiamine, folic acid, multivitamin DVT prophylaxis- heparin sq MICU monitoring. poor overall prognosis. pt will likely benefit from LTAC facility. The care of this patient involved high complexity decision making to prevent further life threatening deterioration of the patient's condition and/or to evaluate & treat vital organ system(s) failure or risk of failure. 35 mins
[2017-10-10] MEDS: FENTANYL INJECTION 500 MCG in DEXTROSE 5%-WATER - 90 ML IVPB SCH ×3 (12:23→22:15)
--- NOTE | 2017-10-10 13:04 | PN ---
Physical Exam: SUBJECTIVE: Patient seen and examined at bedside. No new complaints. NO overnight events. POD#1 s/p tracheostomy tolereated procedure well. Denies CP,MOTTA , SOB,abdominal pain. N/V. OBJECTIVE: Vital Signs Period Temp Pulse Resp BP Sys/Jeff Pulse Ox Last 24 Hr 97.8 F-99.8 F 87-114 20-39 110-143/59-96 96-99 GENERAL: awake and alert. HEAD: NC/AT EYES: PERRL, EOMI, sclera anicteric, conjunctiva clear. No ptosis. ENT: moist mucous membranes. NECK: tracheostomy in place , clean , dry and intact. LUNGS: CTAB, no wheezes, no crackles, no accessory muscle use. HEART:RRR S1, S2 without murmur, rub or gallop. ABDOMEN: Soft, nontender, nondistended, normoactive bowel sounds, no guarding, no rebound, no hepatosplenomegaly, no masses. EXTREMITIES: 2+ pulses, warm, well-perfused, no edema. NEUROLOGICAL: Cranial nerves II through XII grossly intact. Normal speech, gait not observed. PSYCH: Normal mood, normal affect. SKIN: Warm, dry, normal turgor, no rashes or lesions noted Laboratory Results - last 24 hr 10/10/17 10/10/17 10/10/17 05:35 05:35 08:25 WBC 18.4 H RBC 2.27 L Hgb 6.6 L* D Hct 19.9 L MCV 87.6 MCH 29.1 MCHC 33.2 RDW 18.1 H Plt Count 192 MPV 7.6 Neutrophils % 83.8 H Lymphocytes % 4.5 L Monocytes % 6.9 Eosinophils % 4.3 Basophils % 0.5 Sodium 140 Potassium 4.6 Chloride 109 H Carbon Dioxide 18 L Anion Gap 13 BUN 88 H Creatinine 3.8 H Creat Clearance w eGFR 15.92 Random Glucose 101 Calcium 8.3 L Phosphorus 6.7 H D Magnesium 2.0 D Total Bilirubin 0.6 AST 17 ALT < 6 L Alkaline Phosphatase 137 H Total Protein 7.0 Albumin 1.8 L Blood Type O NEGATIVE Antibody Screen Negative Crossmatch See Detail Active Medications Generic Name Dose Route Start Last Admin Trade Name Freq PRN Reason Stop Dose Admin Acetaminophen 650 mg 10/09/17 05:31 Tylenol - PO Q6H PRN FEVER OR PAIN Amiodarone HCl 200 mg 10/04/17 16:45 10/10/17 09:19 Cordarone - PEG 200 mg DAILY [facility] Administration Chlorhexidine Gluconate 15 ml 09/08/17 12:30 10/10/17 09:19 Peridex - MM 15 ml BID [facility] Administration Ferrous Sulfate 325 mg 09/05/17 12:00 10/10/17 09:19 Feosol - PO 325 mg DAILY [facility] Administration Folic Acid 1 mg 09/02/17 10:00 10/10/17 09:19 Folic Acid - PO 1 mg DAILY [facility] Administration Famotidine/Sodium Chloride 20 mg in 50 mls @ 100 mls/hr 09/28/17 10:00 09:19 Pepcid 20 Mg Premixed Ivpb - IVPB 100 mls/hr BID [facility] Administration Fentanyl 500 mcg/ Dextrose 100 mls @ 5 mls/hr 10/08/17 22:15 10/10/17 12:23 IVPB 50 mcg/hr TITR [facility] 10 mls/hr Protocol Administration 25 MCG/HR Aztreonam 1 gm in 10 mls @ 120 mls/hr 10/09/17 10:00 10/10/17 09:18 Azactam (Restricted To Id) - IVPUSH 120 mls/hr BID [facility] Administration Metoprolol Tartrate 5 mg 10/02/17 16:47 10/09/17 04:20 Lopressor Injection - IVPUSH 5 mg Q6H PRN Administration HYPERTENSION Metoprolol Tartrate 25 mg 10/05/17 08:14 10/10/17 09:19 Lopressor - PEG 25 mg BID [facility] Administration Multivitamins/Minerals 1 each 09/02/17 10:00 10/10/17 09:20 Theragran-M PO 1 each DAILY [facility] Administration Mupirocin 1 applic 09/23/17 10:00 10/10/17 09:19 Bactroban 2% Cream - TP 1 applic BID [facility] Administration Sevelamer Carbonate 0.8 gm 10/05/17 08:16 10/10/17 12:24 Renvela Powder Packet - PEG 0.8 gm TIDCM [facility] Administration Thiamine HCl 100 mg 09/02/17 10:00 10/10/17 09:20 Vitamin B1 - PO 100 mg DAILY [facility] Administration ASSESSMENT/PLAN: Neuro: - awake and alert. CV: - Recurrent a-fib - Amio 200mg via PEG - Lopressor no longer required as BP as return to normal Pulm: - trach yesterday - Vent settings: - Assist control - RR: 14 - TV: 450 - FiO2: 40% - PEEP: 5 Renal: - ARF; BUN/Cr 85/3.6. Slightly improved - Freeman in removed. - Renal dose meds : - None GI: - None ID: - Continue vancomycin for renal function and Aztreonam for G- coverage - Source is unclear, likely cellulitis of RUE - CXR clear, UA does not indicate UTI Hem/Onc: - Hgb 6.6 today will transfuse 2 units. - repeat CBC after second unit. Endocrine: - None PPX: - Heparin GGT FEN (Fluids, electrolytes, nutrition): - Replenish Mg with 2g MgSO4 - PEG tube feeding Dispo: - Continue to monitor in ICU -Up for VTAC at [place].. Visit type - Emergency Visit Emergency Visit: Yes ED Registration Date: 08/31/17 Care time: The patient presented to the Emergency Department on the above date and was hospitalized for further evaluation of their emergent condition. - New Patient This patient is new to me today: Yes Date on this admission: 10/11/17 - Critical Care Critical Care patient: Yes Total Critical Care Time (in minutes): 32 Critical Care Statement: The care of this patient involved high complexity decision making to prevent further life threatening deterioration of the patient 's condition and/or to evaluate & treat vital organ system(s) failure or risk of failure.
--- NOTE | 2017-10-10 13:28 | PN ---
Teaching Attending Note Name of Resident: Carlos Leone ATTENDING PHYSICIAN STATEMENT I saw and evaluated the patient. I reviewed the resident's note and discussed the case with the resident. I agree with the resident's findings and plan as documented. SUBJECTIVE: Patient seen and examined in the ICU. Awake on AC Mode of vent. Interactive. No pressors. OBJECTIVE: Intake & Output 10/07/17 10/08/17 10/09/17 10/10/17 23:59 23:59 23:59 23:59 Intake Total 1988 2853 1460 80 Output Total 1900 2200 1500 Balance 88 653 -40 80 Weight 187 lb 11.2 oz 189 lb 2.506 oz 191 lb 2.252 oz 186 lb 3.2 oz Last Vital Signs Temp Pulse Resp BP Pulse Ox 98.8 F 91 H 24 118/76 96 10/10/17 12:00 10/10/17 12:00 10/10/17 12:00 10/10/17 12:00 10/10/17 08:00 Active Medications Acetaminophen (Tylenol -) 650 mg PO Q6H PRN PRN Reason: FEVER OR PAIN Amiodarone HCl (Cordarone -) 200 mg PEG DAILY [facility] Last Admin: 10/10/17 09:19 Dose: 200 mg Chlorhexidine Gluconate (Peridex -) 15 ml MM BID [facility] Last Admin: 10/10/17 09:19 Dose: 15 ml Ferrous Sulfate (Feosol -) 325 mg PO DAILY [facility] Last Admin: 10/10/17 09:19 Dose: 325 mg Folic Acid (Folic Acid -) 1 mg PO DAILY [facility] Last Admin: 10/10/17 09:19 Dose: 1 mg Famotidine/Sodium Chloride (Pepcid 20 Mg Premixed Ivpb -) 20 mg in 50 mls @ 100 mls/hr IVPB BID [facility] Last Admin: 10/10/17 09:19 Dose: 100 mls/hr Fentanyl 500 mcg/ Dextrose 100 mls @ 5 mls/hr IVPB TITR [facility]; 25 MCG/HR PRN Reason: Protocol Last Admin: 10/10/17 12:23 Dose: 50 mcg/hr, 10 mls/hr Aztreonam (Azactam (Restricted To Id) -) 1 gm in 10 mls @ 120 mls/hr IVPUSH BID [facility] Last Admin: 10/10/17 09:18 Dose: 120 mls/hr Metoprolol Tartrate (Lopressor Injection -) 5 mg IVPUSH Q6H PRN PRN Reason: HYPERTENSION Last Admin: 10/09/17 04:20 Dose: 5 mg Metoprolol Tartrate (Lopressor -) 25 mg PEG BID [facility] Last Admin: 10/10/17 09:19 Dose: 25 mg Multivitamins/Minerals (Theragran-M) 1 each PO DAILY [facility] Last Admin: 10/10/17 09:20 Dose: 1 each Mupirocin (Bactroban 2% Cream -) 1 applic TP BID [facility] Last Admin: 10/10/17 09:19 Dose: 1 applic Sevelamer Carbonate (Renvela Powder Packet -) 0.8 gm PEG TIDCM [facility] Last Admin: 10/10/17 12:24 Dose: 0.8 gm Thiamine HCl (Vitamin B1 -) 100 mg PO DAILY [facility] Last Admin: 10/10/17 09:20 Dose: 100 mg Gen: Trached, awake and interactive Heart: RRR Lung: scattered rhonchi Abd: soft, nontender Ext: + edema Laboratory Results - last 24 hr 10/10/17 10/10/17 10/10/17 05:35 05:35 08:25 WBC 18.4 H RBC 2.27 L Hgb 6.6 L* D Hct 19.9 L MCV 87.6 MCH 29.1 MCHC 33.2 RDW 18.1 H Plt Count 192 MPV 7.6 Neutrophils % 83.8 H Lymphocytes % 4.5 L Monocytes % 6.9 Eosinophils % 4.3 Basophils % 0.5 Sodium 140 Potassium 4.6 Chloride 109 H Carbon Dioxide 18 L Anion Gap 13 BUN 88 H Creatinine 3.8 H Creat Clearance w eGFR 15.92 Random Glucose 101 Calcium 8.3 L Phosphorus 6.7 H D Magnesium 2.0 D Total Bilirubin 0.6 AST 17 ALT < 6 L Alkaline Phosphatase 137 H Total Protein 7.0 Albumin 1.8 L Blood Type O NEGATIVE Antibody Screen Negative Crossmatch See Detail ASSESSMENT AND PLAN: Acute Hypoxic Respiratory Failure Pneumonia MSSA Bacteremia Loculated Pleural Effusions LV Diastolic Dysfunction Paroxysmal Atrial Fibrillation Acute Kidney Injury GI Bleed Acute Blood Loss Anemia Cellulitis - antibiotics per ID - Follow H&H - Normal transfusion thresholds - PPI - Enteral feeds - Spontaneous breathing trials as tolerated - DVT/GI prophylaxis - continue ICU monitoring - consider LTAC placement Dr Griffin Critical care time spent in reviewing chart, evaluating patient and formulating plan 40 min
--- NOTE | 2017-10-10 14:12 | PN ---
Progress Note, Physician History of Present Illness: Pt seen and examined at bedside. He is awake. He had the trache placed. Pt was found to be anemic and is getting PRBC transfusions. - Current Medication List Current Medications: Active Medications Acetaminophen (Tylenol -) 650 mg PO Q6H PRN PRN Reason: FEVER OR PAIN Amiodarone HCl (Cordarone -) 200 mg PEG DAILY [facility] Last Admin: 10/10/17 09:19 Dose: 200 mg Chlorhexidine Gluconate (Peridex -) 15 ml MM BID [facility] Last Admin: 10/10/17 09:19 Dose: 15 ml Ferrous Sulfate (Feosol -) 325 mg PO DAILY [facility] Last Admin: 10/10/17 09:19 Dose: 325 mg Folic Acid (Folic Acid -) 1 mg PO DAILY [facility] Last Admin: 10/10/17 09:19 Dose: 1 mg Famotidine/Sodium Chloride (Pepcid 20 Mg Premixed Ivpb -) 20 mg in 50 mls @ 100 mls/hr IVPB BID [facility] Last Admin: 10/10/17 09:19 Dose: 100 mls/hr Fentanyl 500 mcg/ Dextrose 100 mls @ 5 mls/hr IVPB TITR [facility]; 25 MCG/HR PRN Reason: Protocol Last Admin: 10/10/17 12:23 Dose: 50 mcg/hr, 10 mls/hr Aztreonam (Azactam (Restricted To Id) -) 1 gm in 10 mls @ 120 mls/hr IVPUSH BID [facility] Last Admin: 10/10/17 09:18 Dose: 120 mls/hr Metoprolol Tartrate (Lopressor Injection -) 5 mg IVPUSH Q6H PRN PRN Reason: HYPERTENSION Last Admin: 10/09/17 04:20 Dose: 5 mg Metoprolol Tartrate (Lopressor -) 25 mg PEG BID [facility] Last Admin: 10/10/17 09:19 Dose: 25 mg Multivitamins/Minerals (Theragran-M) 1 each PO DAILY [facility] Last Admin: 10/10/17 09:20 Dose: 1 each Mupirocin (Bactroban 2% Cream -) 1 applic TP BID [facility] Last Admin: 10/10/17 09:19 Dose: 1 applic Sevelamer Carbonate (Renvela Powder Packet -) 0.8 gm PEG TIDCM [facility] Last Admin: 10/10/17 12:24 Dose: 0.8 gm Thiamine HCl (Vitamin B1 -) 100 mg PO DAILY [facility] Last Admin: 10/10/17 09:20 Dose: 100 mg - Objective Vital Signs: Vital Signs Temperature 98.8 F 10/10/17 12:00 Pulse Rate 90 10/10/17 14:00 Respiratory Rate 24 10/10/17 14:00 Blood Pressure 158/53 10/10/17 14:00 O2 Sat by Pulse Oximetry (%) 96 10/10/17 08:00 Constitutional: Yes: Calm HENT: Yes: Other (trache) Cardiovascular: Yes: S1, S2 Respiratory: Yes: Mechanically Ventilated Gastrointestinal: Yes: Normal Bowel Sounds, Soft, Other (peg) Genitourinary: Yes: Incontinence Musculoskeletal: Yes: Muscle Weakness Edema: Yes Wound/Incision: Yes: Dressing Dry and Intact Neurological: Yes: Other (awake) Labs: CBC, BMP 10/10/17 05:35 10/10/17 05:35 INR, PTT INR 1.14 (0.82-1.09) D 10/03/17 05:22 - ....Imaging Chest X-ray: Report Reviewed Problem List - Problems (1) Abuse, drug or alcohol Code(s): F19.10 - OTHER PSYCHOACTIVE SUBSTANCE ABUSE, UNCOMPLICATED (2) Withdrawal symptoms, alcohol Code(s): F10.239 - ALCOHOL DEPENDENCE WITH WITHDRAWAL, UNSPECIFIED Qualifiers: Complication of substance-induced condition: uncomplicated Qualified Code(s ): F10.230 - Alcohol dependence with withdrawal, uncomplicated (3) Hyponatremia Code(s): E87.1 - HYPO-OSMOLALITY AND HYPONATREMIA (4) Respiratory failure with hypoxia Code(s): J96.91 - RESPIRATORY FAILURE, UNSPECIFIED WITH HYPOXIA Qualifiers: Chronicity: acute Qualified Code(s): J96.01 - Acute respiratory failure with hypoxia (5) Staphylococcus aureus bacteremia Code(s): R78.81 - BACTEREMIA (6) Acute kidney injury Code(s): N17.9 - ACUTE KIDNEY FAILURE, UNSPECIFIED (7) Anemia Code(s): D64.9 - ANEMIA, UNSPECIFIED Qualifiers: Anemia type: unspecified type Qualified Code(s): D64.9 - Anemia, unspecified Assessment/Plan Current Medications Generic Name Dose Route Start Last Admin Trade Name Freq PRN Reason Stop Dose Admin Acetaminophen 650 mg 10/09/17 05:31 Tylenol - PO Q6H PRN FEVER OR PAIN Amiodarone HCl 200 mg 10/04/17 16:45 10/10/17 09:19 Cordarone - PEG 200 mg DAILY [facility] Administration Chlorhexidine Gluconate 15 ml 09/08/17 12:30 10/10/17 09:19 Peridex - MM 15 ml BID [facility] Administration Ferrous Sulfate 325 mg 09/05/17 12:00 10/10/17 09:19 Feosol - PO 325 mg DAILY [facility] Administration Folic Acid 1 mg 09/02/17 10:00 10/10/17 09:19 Folic Acid - PO 1 mg DAILY [facility] Administration Famotidine/Sodium Chloride 20 mg in 50 mls @ 100 mls/hr 09/28/17 10:00 09:19 Pepcid 20 Mg Premixed Ivpb - IVPB 100 mls/hr BID [facility] Administration Fentanyl 500 mcg/ Dextrose 100 mls @ 5 mls/hr 10/08/17 22:15 10/10/17 12:23 IVPB 50 mcg/hr TITR [facility] 10 mls/hr Protocol Administration 25 MCG/HR Aztreonam 1 gm in 10 mls @ 120 mls/hr 10/09/17 10:00 10/10/17 09:18 Azactam (Restricted To Id) - IVPUSH 120 mls/hr BID [facility] Administration Metoprolol Tartrate 5 mg 10/02/17 16:47 10/09/17 04:20 Lopressor Injection - IVPUSH 5 mg Q6H PRN Administration HYPERTENSION Metoprolol Tartrate 25 mg 10/05/17 08:14 10/10/17 09:19 Lopressor - PEG 25 mg BID [facility] Administration Multivitamins/Minerals 1 each 09/02/17 10:00 10/10/17 09:20 Theragran-M PO 1 each DAILY [facility] Administration Mupirocin 1 applic 09/23/17 10:00 10/10/17 09:19 Bactroban 2% Cream - TP 1 applic BID [facility] Administration Sevelamer Carbonate 0.8 gm 10/05/17 08:16 10/10/17 12:24 Renvela Powder Packet - PEG 0.8 gm TIDCM [facility] Administration Thiamine HCl 100 mg 09/02/17 10:00 10/10/17 09:20 Vitamin B1 - PO 100 mg DAILY [facility] Administration Impression 1. ALEXANDRA 2. fluid overload 3. hypoalbuminemia 4. respiratory failure requiring intubation 5. anemia 6. etoh abuse 7. fevers 8. hypokalemia 9. pleural effusion 10. hypernatremia 11. GI bleed 12. rash Plan - agree with prbc transfusion - lasix as needed - feeds restarted - repeat labs in am - vent support - daughter's number: Emelina [phone]. - ALEXANDRA is multifactorial - discussed with ICU team - will follow Dr Peres
[2017-10-10 18:23] LABS: MCH 28.7 pg (25.7-33.7); MCHC 33.2 g/dl (32.0-35.9); MEAN CELL VOLUME 86.4 fl (80-96); MEAN PLT VOLUME 7.4 fl (7.5-11.1); PLATELET COUNT 221 K/MM3 (134-434); RDW 17.1 % (11.9-15.9)
[2017-10-11] MEDS ORDERED: fentaNYL CITRATE 250 MCG/5 ML VIAL ONE ×3 (01:33→19:20)
[2017-10-11 06:58] LABS: BASOPHIL 0.4 % (0-2.0); EOSINOPHIL 7.5 % (0-4.5); MCH 28.9 pg (25.7-33.7); MCHC 33.5 g/dl (32.0-35.9); MEAN CELL VOLUME 86.3 fl (80-96); MEAN PLT VOLUME 7.5 fl (7.5-11.1); NEUTROPHILS 76.8 % (42.8-82.8); PLATELET COUNT 249 K/MM3 (134-434); RDW 17.9 % (11.9-15.9); WHITE BLOOD COUNT 15.8 K/mm3 (4.0-10.0)
[2017-10-11 07:31] LABS: ALBUMIN 1.9 g/dl (3.4-5.0); ALK PHOS 132 U/L (45-117); ANION GAP 13 (8-16); BILIRUBIN,TOTAL 0.6 mg/dL (0.2-1.0); CALCIUM 8.3 mg/dL (8.5-10.1); CO2 17 mmol/L (21-32); CREATININE 3.6 mg/dL (0.7-1.3); GLUCOSE,RANDOM 116 mg/dL (74-106); SGOT/AST 16 U/L (15-37); SGPT/ALT 6 U/L (12-78); TOT PROT 7.2 g/dl (6.4-8.2)
[2017-10-11] MEDS: SEVELAMER CARBONATE 0.8 GM POWDER PACKET PEG SCH ×3 (09:09→22:28)
[2017-10-11] MEDS: AZTREONAM 1 GRAM SYRINGE 1 GM/10 ML DISP.SYRIN IVPUSH SCH ×2 (09:10→21:40)
[2017-10-11] MEDS: AMIODARONE HCL 200 MG TABLET (FP) PEG SCH (09:11)
[2017-10-11] MEDS: FOLIC ACID 1 MG TABLET (FP) PO SCH (09:11)
[2017-10-11] MEDS: METOPROLOL TARTRATE 25 MG TABLET (FP) PEG SCH (09:11)
[2017-10-11] MEDS: FERROUS SO4 325 MG TABLET (FP) PO SCH (09:11)
[2017-10-11] MEDS: CHLORHEXIDINE GLUCONATE 0.12% 15ML CUP MM SCH ×2 (09:12→21:41)
[2017-10-11] MEDS: MULTIVITAMINS THER W-MINERALS COMBO TABLET (FP) PO SCH (09:12)
[2017-10-11] MEDS: FAMOTIDINE 20 MG/50 ML IVPB 20 MG/50 ML MG IVPB SCH ×2 (09:12→21:41)
[2017-10-11] MEDS: THIAMINE HCL 100 MG TABLET (FP) PO SCH (09:17)
[2017-10-11] MEDS: FENTANYL INJECTION 500 MCG in DEXTROSE 5%-WATER - 90 ML IVPB SCH ×3 (09:20→22:28)
--- NOTE | 2017-10-11 09:32 | PN ---
Progress Note, Physician Chief Complaint: Remains in ICU and remains on mechanical ventilator via trache. Awake Sinus tachycardia History of Present Illness: Patient was seen and examined in ICU. Remains on mechanical ventilation. Chart was reviewed On Fentanyl Sinus tachycardia Fever - Current Medication List Current Medications: Active Medications Acetaminophen (Tylenol -) 650 mg PO Q6H PRN PRN Reason: FEVER OR PAIN Amiodarone HCl (Cordarone -) 200 mg PEG DAILY [facility] Last Admin: 10/11/17 09:11 Dose: 200 mg Chlorhexidine Gluconate (Peridex -) 15 ml MM BID [facility] Last Admin: 10/11/17 09:12 Dose: 15 ml Ferrous Sulfate (Feosol -) 325 mg PO DAILY [facility] Last Admin: 10/11/17 09:11 Dose: 325 mg Folic Acid (Folic Acid -) 1 mg PO DAILY [facility] Last Admin: 10/11/17 09:11 Dose: 1 mg Famotidine/Sodium Chloride (Pepcid 20 Mg Premixed Ivpb -) 20 mg in 50 mls @ 100 mls/hr IVPB BID [facility] Last Admin: 10/11/17 09:12 Dose: 100 mls/hr Fentanyl 500 mcg/ Dextrose 100 mls @ 5 mls/hr IVPB TITR [facility]; 25 MCG/HR PRN Reason: Protocol Last Admin: 10/10/17 22:15 Dose: 50 mcg/hr, 10 mls/hr Aztreonam (Azactam (Restricted To Id) -) 1 gm in 10 mls @ 120 mls/hr IVPUSH BID [facility] Last Admin: 10/11/17 09:10 Dose: 120 mls/hr Metoprolol Tartrate (Lopressor Injection -) 5 mg IVPUSH Q6H PRN PRN Reason: HYPERTENSION Last Admin: 10/09/17 04:20 Dose: 5 mg Metoprolol Tartrate (Lopressor -) 25 mg PEG BID [facility] Last Admin: 10/11/17 09:11 Dose: 25 mg Multivitamins/Minerals (Theragran-M) 1 each PO DAILY [facility] Last Admin: 10/11/17 09:12 Dose: 1 each Mupirocin (Bactroban 2% Cream -) 1 applic TP BID [facility] Last Admin: 10/10/17 21:27 Dose: 1 applic Sevelamer Carbonate (Renvela Powder Packet -) 0.8 gm PEG TIDCM [facility] Last Admin: 10/11/17 09:09 Dose: 0.8 gm Thiamine HCl (Vitamin B1 -) 100 mg PO DAILY [facility] Last Admin: 10/11/17 09:17 Dose: 100 mg - Objective Vital Signs: Vital Signs Temperature 99.2 F 10/11/17 06:00 Pulse Rate 98 H 10/11/17 06:00 Respiratory Rate 23 10/11/17 06:48 Blood Pressure 146/88 10/11/17 06:00 O2 Sat by Pulse Oximetry (%) 100 10/10/17 22:30 Neck: Yes: Supple Cardiovascular: Yes: Regular Rate and Rhythm, Tachycardia, S1, S2 Respiratory: Yes: Diminished, Mechanically Ventilated Gastrointestinal: Yes: Normal Bowel Sounds, Soft. No: Tenderness Edema: No Labs: CBC, BMP 10/11/17 05:10 10/11/17 05:10 Problem List - Problems (1) Abuse, drug or alcohol Code(s): F19.10 - OTHER PSYCHOACTIVE SUBSTANCE ABUSE, UNCOMPLICATED (2) Respiratory failure with hypoxia Code(s): J96.91 - RESPIRATORY FAILURE, UNSPECIFIED WITH HYPOXIA Qualifiers: Chronicity: acute Qualified Code(s): J96.01 - Acute respiratory failure with hypoxia (3) Pneumonia Code(s): J18.9 - PNEUMONIA, UNSPECIFIED ORGANISM Qualifiers: Pneumonia type: aspiration pneumonia (5) History of alcohol abuse Code(s): Z87.898 - PERSONAL HISTORY OF OTHER SPECIFIED CONDITIONS (6) Acute diastolic heart failure Code(s): I50.31 - ACUTE DIASTOLIC (CONGESTIVE) HEART FAILURE (7) Anemia Code(s): D64.9 - ANEMIA, UNSPECIFIED Qualifiers: Anemia type: unspecified type Qualified Code(s): D64.9 - Anemia, unspecified Assessment/Plan 1. Paroxysmal atrial fibrillation [id number] score of 2 - off Eliquis 2. Acute hypoxic respiratory failure, post re-intubated, pulmonary infiltrates/ pulmonary edema improving - remains of mechanical ventilation via trache 3. Cavitating pneumonia, MSSA bacteremia, post septic shock no evidence of endocarditis by ALISA criteria 4. Diastolic LV dysfunction with class I-II NYHA congestive heart failure, volume overload, resolved 5. 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 Loculated effusion post chest tube insertion 7. History of alcohol dependence 8. Acute renal insufficiency 9. Hypernatremia 10. Anemia PLAN: 1. Vent support 2. Continue beta amairani - increase Lopressor via PEG 3. Continue Amiodarone via PEG 4. Antibiotics as per ID service - elevated WBC 5. Ideally needs to be on anticoagulation if not contraindicated Further plans are to follow Jordon Gtz MD
[2017-10-11] MEDS: MUPIROCIN CA 2% TOPICAL CREAM 15 GM TUBE TP SCH ×2 (10:30→21:40)
--- NOTE | 2017-10-11 12:55 | PN ---
Teaching Attending Note Name of Resident: Vipul Rice ATTENDING PHYSICIAN STATEMENT I saw and evaluated the patient. I reviewed the resident's note and discussed the case with the resident. I agree with the resident's findings and plan as documented. SUBJECTIVE: Pt seen and examined in the ICU. Vented on volume assist control. Awake on fentanyl gtt. OBJECTIVE: Last Vital Signs Temp Pulse Resp BP Pulse Ox 99.8 F H 112 H 23 144/84 98 10/11/17 10:00 10/11/17 10:07 10/11/17 11:45 10/11/17 10:00 10/11/17 10:07 Intake & Output 10/08/17 10/09/17 10/10/17 10/11/17 23:59 23:59 23:59 23:59 Intake Total 2853 1460 1050 840 Output Total 2200 1500 Balance 653 -40 1050 840 Weight 189 lb 2.506 oz 191 lb 2.252 oz 186 lb 3.2 oz 186 lb 12.8 oz Gen: awake, vented Heart: tachycardic, irregular Lung: scattered rhonchi Abd: soft, nontender Ext: no edema CBC, BMP 10/11/17 05:10 10/11/17 05:10 Active Medications Acetaminophen (Tylenol -) 650 mg PO Q6H PRN PRN Reason: FEVER OR PAIN Amiodarone HCl (Cordarone -) 200 mg PEG DAILY [facility] Last Admin: 10/11/17 09:11 Dose: 200 mg Chlorhexidine Gluconate (Peridex -) 15 ml MM BID [facility] Last Admin: 10/11/17 09:12 Dose: 15 ml Ferrous Sulfate (Feosol -) 325 mg PO DAILY [facility] Last Admin: 10/11/17 09:11 Dose: 325 mg Folic Acid (Folic Acid -) 1 mg PO DAILY [facility] Last Admin: 10/11/17 09:11 Dose: 1 mg Famotidine/Sodium Chloride (Pepcid 20 Mg Premixed Ivpb -) 20 mg in 50 mls @ 100 mls/hr IVPB BID [facility] Last Admin: 10/11/17 09:12 Dose: 100 mls/hr Fentanyl 500 mcg/ Dextrose 100 mls @ 5 mls/hr IVPB TITR [facility]; 25 MCG/HR PRN Reason: Protocol Last Admin: 10/11/17 09:20 Dose: 50 mcg/hr, 10 mls/hr Aztreonam (Azactam (Restricted To Id) -) 1 gm in 10 mls @ 120 mls/hr IVPUSH BID [facility] Last Admin: 10/11/17 09:10 Dose: 120 mls/hr Metoprolol Tartrate (Lopressor Injection -) 5 mg IVPUSH Q6H PRN PRN Reason: HYPERTENSION Last Admin: 10/09/17 04:20 Dose: 5 mg Metoprolol Tartrate (Lopressor -) 25 mg PEG BID [facility] Last Admin: 10/11/17 09:11 Dose: 25 mg Multivitamins/Minerals (Theragran-M) 1 each PO DAILY [facility] Last Admin: 10/11/17 09:12 Dose: 1 each Mupirocin (Bactroban 2% Cream -) 1 applic TP BID [facility] Last Admin: 10/11/17 10:30 Dose: 1 applic Quetiapine Fumarate (Seroquel -) 25 mg PO DAILY [facility] Sevelamer Carbonate (Renvela Powder Packet -) 0.8 gm PEG TIDCM [facility] Last Admin: 10/11/17 12:00 Dose: 0.8 gm Thiamine HCl (Vitamin B1 -) 100 mg PO DAILY [facility] Last Admin: 10/11/17 09:17 Dose: 100 mg ASSESSMENT AND PLAN: Acute Hypoxic Respiratory Failure Pneumonia MSSA Bacteremia Loculated Pleural Effusions LV Diastolic Dysfunction Paroxysmal Atrial Fibrillation Acute Kidney Injury GI Bleed Acute Blood Loss Anemia Cellulitis - antibiotics per ID - f/u pending cultures - holding heparin gtt - monitor H/H - transfuse as needed - protonix - O2 to keep SpO2 >90% - enteral feeds - spontaneous breathing trials as tolerated - DVT/GI prophylaxis - continue ICU monitoring - continue discussions regarding goals of care and advanced directives - consider LTAC placement critical care time spent in reviewing chart, evaluating patient and formulating plan 35 min
[2017-10-11] MEDS: METOPROLOL TARTRATE 5 MG/5 ML VIAL IVPUSH PRN ×2 (13:03→13:51)
[2017-10-11] MEDS: QUEtiapine FUMARATE 25 MG TABLET (FP) PO SCH (13:04)
[2017-10-11] MEDS ORDERED: METOPROLOL TARTRATE 5 MG/5 ML VIAL IVPUSH ONE ×2 (14:00→16:38)
--- NOTE | 2017-10-11 14:00 | PN ---
Progress Note, Physician History of Present Illness: Pt seen and examined at bedside. He is awake. Pt does appears to be in distress. - Current Medication List Current Medications: Active Medications Acetaminophen (Tylenol -) 650 mg PO Q6H PRN PRN Reason: FEVER OR PAIN Amiodarone HCl (Cordarone -) 200 mg PEG DAILY [facility] Last Admin: 10/11/17 09:11 Dose: 200 mg Chlorhexidine Gluconate (Peridex -) 15 ml MM BID [facility] Last Admin: 10/11/17 09:12 Dose: 15 ml Ferrous Sulfate (Feosol -) 325 mg PO DAILY [facility] Last Admin: 10/11/17 09:11 Dose: 325 mg Folic Acid (Folic Acid -) 1 mg PO DAILY [facility] Last Admin: 10/11/17 09:11 Dose: 1 mg Famotidine/Sodium Chloride (Pepcid 20 Mg Premixed Ivpb -) 20 mg in 50 mls @ 100 mls/hr IVPB BID [facility] Last Admin: 10/11/17 09:12 Dose: 100 mls/hr Fentanyl 500 mcg/ Dextrose 100 mls @ 5 mls/hr IVPB TITR [facility]; 25 MCG/HR PRN Reason: Protocol Last Admin: 10/11/17 09:20 Dose: 50 mcg/hr, 10 mls/hr Aztreonam (Azactam (Restricted To Id) -) 1 gm in 10 mls @ 120 mls/hr IVPUSH BID [facility] Last Admin: 10/11/17 09:10 Dose: 120 mls/hr Metoprolol Tartrate (Lopressor Injection -) 5 mg IVPUSH Q6H PRN PRN Reason: HYPERTENSION Last Admin: 10/11/17 13:51 Dose: 5 mg Metoprolol Tartrate (Lopressor -) 25 mg PEG BID [facility] Last Admin: 10/11/17 09:11 Dose: 25 mg Metoprolol Tartrate (Lopressor Injection -) 5 mg IVPUSH ONCE ONE Stop: 10/11/17 14:01 Multivitamins/Minerals (Theragran-M) 1 each PO DAILY [facility] Last Admin: 10/11/17 09:12 Dose: 1 each Mupirocin (Bactroban 2% Cream -) 1 applic TP BID [facility] Last Admin: 10/11/17 10:30 Dose: 1 applic Quetiapine Fumarate (Seroquel -) 25 mg PO DAILY [facility] Last Admin: 10/11/17 13:04 Dose: 25 mg Sevelamer Carbonate (Renvela Powder Packet -) 0.8 gm PEG TIDCM [facility] Last Admin: 10/11/17 12:00 Dose: 0.8 gm Thiamine HCl (Vitamin B1 -) 100 mg PO DAILY [facility] Last Admin: 10/11/17 09:17 Dose: 100 mg - Objective Vital Signs: Vital Signs Temperature 98.9 F 10/11/17 13:10 Pulse Rate 147 H 10/11/17 13:53 Respiratory Rate 19 10/11/17 13:29 Blood Pressure 143/94 10/11/17 13:51 O2 Sat by Pulse Oximetry (%) 98 10/11/17 10:07 Constitutional: Yes: Calm Eyes: Yes: Conjunctiva Clear Neck: Yes: Other (trache) Cardiovascular: Yes: S1, S2 Respiratory: Yes: Mechanically Ventilated Gastrointestinal: Yes: Soft, Other (peg) Genitourinary: Yes: Incontinence Musculoskeletal: Yes: Muscle Weakness Edema: Yes Edema: LUE: 1+, RUE: 1+ Neurological: Yes: Other (responds to commands) Labs: CBC, BMP 10/11/17 05:10 10/11/17 05:10 INR, PTT INR 1.14 (0.82-1.09) D 10/03/17 05:22 Problem List - Problems (1) Abuse, drug or alcohol Code(s): F19.10 - OTHER PSYCHOACTIVE SUBSTANCE ABUSE, UNCOMPLICATED (2) Withdrawal symptoms, alcohol Code(s): F10.239 - ALCOHOL DEPENDENCE WITH WITHDRAWAL, UNSPECIFIED Qualifiers: Complication of substance-induced condition: uncomplicated Qualified Code(s ): F10.230 - Alcohol dependence with withdrawal, uncomplicated (3) Hyponatremia Code(s): E87.1 - HYPO-OSMOLALITY AND HYPONATREMIA (4) Respiratory failure with hypoxia Code(s): J96.91 - RESPIRATORY FAILURE, UNSPECIFIED WITH HYPOXIA Qualifiers: Chronicity: acute Qualified Code(s): J96.01 - Acute respiratory failure with hypoxia (5) Staphylococcus aureus bacteremia Code(s): R78.81 - BACTEREMIA (6) Acute kidney injury Code(s): N17.9 - ACUTE KIDNEY FAILURE, UNSPECIFIED (7) Anemia Code(s): D64.9 - ANEMIA, UNSPECIFIED Qualifiers: Anemia type: unspecified type Qualified Code(s): D64.9 - Anemia, unspecified Assessment/Plan Current Medications Generic Name Dose Route Start Last Admin Trade Name Freq PRN Reason Stop Dose Admin Acetaminophen 650 mg 10/09/17 05:31 Tylenol - PO Q6H PRN FEVER OR PAIN Amiodarone HCl 200 mg 10/04/17 16:45 10/11/17 09:11 Cordarone - PEG 200 mg DAILY [facility] Administration Chlorhexidine Gluconate 15 ml 09/08/17 12:30 10/11/17 09:12 Peridex - MM 15 ml BID [facility] Administration Ferrous Sulfate 325 mg 09/05/17 12:00 10/11/17 09:11 Feosol - PO 325 mg DAILY [facility] Administration Folic Acid 1 mg 09/02/17 10:00 10/11/17 09:11 Folic Acid - PO 1 mg DAILY [facility] Administration Famotidine/Sodium Chloride 20 mg in 50 mls @ 100 mls/hr 09/28/17 10:00 09:12 Pepcid 20 Mg Premixed Ivpb - IVPB 100 mls/hr BID [facility] Administration Fentanyl 500 mcg/ Dextrose 100 mls @ 5 mls/hr 10/08/17 22:15 10/11/17 09:20 IVPB 50 mcg/hr TITR [facility] 10 mls/hr Protocol Administration 25 MCG/HR Aztreonam 1 gm in 10 mls @ 120 mls/hr 10/09/17 10:00 10/11/17 09:10 Azactam (Restricted To Id) - IVPUSH 120 mls/hr BID [facility] Administration Metoprolol Tartrate 5 mg 10/02/17 16:47 10/11/17 13:51 Lopressor Injection - IVPUSH 5 mg Q6H PRN Administration HYPERTENSION Metoprolol Tartrate 25 mg 10/05/17 08:14 10/11/17 09:11 Lopressor - PEG 25 mg BID [facility] Administration Metoprolol Tartrate 5 mg 10/11/17 14:00 Lopressor Injection - IVPUSH 10/11/17 14:01 ONCE ONE Multivitamins/Minerals 1 each 09/02/17 10:00 10/11/17 09:12 Theragran-M PO 1 each DAILY [facility] Administration Mupirocin 1 applic 09/23/17 10:00 10/11/17 10:30 Bactroban 2% Cream - TP 1 applic BID [facility] Administration Quetiapine Fumarate 25 mg 10/11/17 13:00 10/11/17 13:04 Seroquel - PO 25 mg DAILY [facility] Administration Sevelamer Carbonate 0.8 gm 10/05/17 08:16 10/11/17 12:00 Renvela Powder Packet - PEG 0.8 gm TIDCM [facility] Administration Thiamine HCl 100 mg 09/02/17 10:00 10/11/17 09:17 Vitamin B1 - PO 100 mg DAILY [facility] Administration Impression 1. ALEXANDRA 2. fluid overload 3. hypoalbuminemia 4. respiratory failure requiring intubation 5. anemia 6. etoh abuse 7. fevers 8. hypokalemia 9. pleural effusion 10. hypernatremia 11. GI bleed 12. rash Plan - renal function is improving - cont current meds - can give lasix prn - repeat labs in am - hg is improved - vent support - ALEXANDRA is multifactorial - will follow Dr Peres
[2017-10-11] MEDS: ACETAMINOPHEN 325 MG TABLET (FP) PO PRN (14:09)
--- NOTE | 2017-10-11 14:16 | PN ---
Teaching Attending Note Name of Resident: Blair White ATTENDING PHYSICIAN STATEMENT time of evaluation: 9:30 AM I saw and evaluated the patient. I reviewed the resident's note and discussed the case with the resident. I agree with the resident's findings and plan as documented. SUBJECTIVE: Patient seen and examined. awake, restless with trach, denies pain, but unable to do ROS. OBJECTIVE: Vital Signs Period Temp Pulse Resp BP Sys/Jeff Pulse Ox Last 24 Hr 98.7 F-100.2 F 90-147 12-26 96-162/61-99 98-100 Intake & Output 10/08/17 10/09/17 10/10/17 10/11/17 23:59 23:59 23:59 23:59 Intake Total 2853 1460 1050 840 Output Total 2200 1500 Balance 653 -40 1050 840 Weight 189 lb 2.506 oz 191 lb 2.252 oz 186 lb 3.2 oz 186 lb 12.8 oz General: lying in bed, restless CVS: S1S2 regular, rapid Chest: occasional rales, limited exam Neck: trach with mild dried blood around Abdomen: soft, obese, PEG in place Extremities: anasarca, resolving RLE lesions Home Medication List Medication Instructions Recorded Confirmed Type Unobtainable [Unobtainable] 08/31/17 08/31/17 History Active Medications Generic Name Dose Route Start Last Admin Trade Name Freq PRN Reason Stop Dose Admin Acetaminophen 650 mg 10/09/17 05:31 10/11/17 14:09 Tylenol - PO 650 mg Q6H PRN Administration FEVER OR PAIN Amiodarone HCl 200 mg 10/04/17 16:45 10/11/17 09:11 Cordarone - PEG 200 mg DAILY [facility] Administration Chlorhexidine Gluconate 15 ml 09/08/17 12:30 10/11/17 09:12 Peridex - MM 15 ml BID [facility] Administration Ferrous Sulfate 325 mg 09/05/17 12:00 10/11/17 09:11 Feosol - PO 325 mg DAILY [facility] Administration Folic Acid 1 mg 09/02/17 10:00 10/11/17 09:11 Folic Acid - PO 1 mg DAILY [facility] Administration Famotidine/Sodium Chloride 20 mg in 50 mls @ 100 mls/hr 09/28/17 10:00 09:12 Pepcid 20 Mg Premixed Ivpb - IVPB 100 mls/hr BID [facility] Administration Fentanyl 500 mcg/ Dextrose 100 mls @ 5 mls/hr 10/08/17 22:15 10/11/17 09:20 IVPB 50 mcg/hr TITR [facility] 10 mls/hr Protocol Administration 25 MCG/HR Aztreonam 1 gm in 10 mls @ 120 mls/hr 10/09/17 10:00 10/11/17 09:10 Azactam (Restricted To Id) - IVPUSH 120 mls/hr BID [facility] Administration Metoprolol Tartrate 5 mg 10/02/17 16:47 10/11/17 13:51 Lopressor Injection - IVPUSH 5 mg Q6H PRN Administration HYPERTENSION Metoprolol Tartrate 25 mg 10/05/17 08:14 10/11/17 09:11 Lopressor - PEG 25 mg BID [facility] Administration Multivitamins/Minerals 1 each 09/02/17 10:00 10/11/17 09:12 Theragran-M PO 1 each DAILY [facility] Administration Mupirocin 1 applic 09/23/17 10:00 10/11/17 10:30 Bactroban 2% Cream - TP 1 applic BID [facility] Administration Quetiapine Fumarate 25 mg 10/11/17 13:00 10/11/17 13:04 Seroquel - PO 25 mg DAILY [facility] Administration Sevelamer Carbonate 0.8 gm 10/05/17 08:16 10/11/17 12:00 Renvela Powder Packet - PEG 0.8 gm TIDCM [facility] Administration Thiamine HCl 100 mg 09/02/17 10:00 10/11/17 09:17 Vitamin B1 - PO 100 mg DAILY [facility] Administration Laboratory Results - last 24 hr 10/10/17 10/11/17 10/11/17 18:00 05:10 05:10 WBC 16.0 H 15.8 H RBC 2.65 L 2.68 L Hgb 7.6 L D 7.7 L Hct 22.9 L D 23.1 L MCV 86.4 86.3 MCH 28.7 28.9 MCHC 33.2 33.5 RDW 17.1 H 17.9 H Plt Count 221 249 MPV 7.4 L 7.5 Neutrophils % 76.8 Lymphocytes % 5.8 L D Monocytes % 9.5 Eosinophils % 7.5 H Basophils % 0.4 Sodium 140 Potassium 3.8 Chloride 110 H Carbon Dioxide 17 L Anion Gap 13 BUN 81 H Creatinine 3.6 H Creat Clearance w eGFR 16.95 Random Glucose 116 H Calcium 8.3 L Total Bilirubin 0.6 AST 16 ALT 6 L Alkaline Phosphatase 132 H Total Protein 7.2 Albumin 1.9 L Microbiology 10/09/17 04:30 Sputum - Endotrachea Suction/Ventilator Gram Stain - Final 10/09/17 04:30 Sputum - Endotrachea Suction/Ventilator Sputum Culture - Preliminary NORMAL RESPIRATORY HERBER 10/08/17 09:10 Blood - Peripheral Venous Blood Culture - Preliminary NO GROWTH OBTAINED AFTER 72 HOURS, INCUBATION TO CONTINUE FOR 2 DAYS. 10/08/17 09:15 Blood - Peripheral Venous Blood Culture - Preliminary NO GROWTH OBTAINED AFTER 72 HOURS, INCUBATION TO CONTINUE FOR 2 DAYS. ASSESSMENT AND PLAN: -Acute hypoxic respiratory failure -Severe sepsis due to cavitary PNA, MSSA bacteremia, ALISA neg for vegetation -Large right loculated pleural effusion, s/p chest tube, removed now -Aspiration risk -Acute T9-T10 discitis/osteomyelitis -Hematochezia, resolved -ARF, from sepsis related ATN vs medication related, ?AIN -Acute on chronic anemia, suspect from renal dysfunction, compounded by blood loss earlier from hematochezia -AFib with RVR recurrent -Rash, ?medication induced , monitor for now. -Hypokalemia/hypomagnesemia -Hyperphosphatemia -Hypovolumic hypernatremia -Alcohol abuse -Normocytic anemia, now acute blood loss anemia from trach (suctioned blood and clots from trach 10/09) -Acute transaminitis -Chronic right subdural hematoma -Thrombocytopenia Secondary to alcohol, splenomegaly. now stable -Chronic right subdural hematoma Plan: s/p extubated 09/19 and re-intubated and extubated 09/27. re-intubated 10/01. due to tachypnea and hypoxia. full vent support. s/p trach 10/09. No further fevers, improved WBC, continue trach suction, sputum cultures, repeat cultures sent, u/a, CXR noted, ID input appreciated, Aztreonam added for gm neg coverage. Chest tube removed. on vanco by level. will need 6-8w abx for OM. CT surgery and ID on board back in sinus rhythm, Amiodarine and lopressor via PEG. should ideally be on coumadin once improved. Increase lopressor. Renal function slowly improving, ?Diuretic phase of ATN, continue to monitor, renal dosing of meds. s/p 9 units PRBC this admission. Recurrent anemia from blood loss as above from trach site with suctioning of clots, stable post transfusion. Free water flushes prn and follow up Na level. s/p PEG placement, continue feeds US shows hepatosplenomegaly and fatty infiltration of liver Continue thiamine, folic acid, multivitamin DVT prophylaxis- heparin sq MICU monitoring. poor overall prognosis. pt will likely benefit from LTAC facility. The care of this patient involved high complexity decision making to prevent further life threatening deterioration of the patient's condition and/or to evaluate & treat vital organ system(s) failure or risk of failure. 35 mins
--- NOTE | 2017-10-11 14:50 | PN ---
Physical Exam: SUBJECTIVE: The patient is a 67M with a PMH of EtOH abuse and HTN. The patient has had multiple intubations during his ICU stay and is currently on his third intubation, being sedated with propofol. Patient seen and examined at bedside. No new complaints. No overnight events. POD#2 s/p tracheostomy procedure which he tolerated well. OBJECTIVE: Vital Signs Period Temp Pulse Resp BP Sys/Jeff Pulse Ox Last 24 Hr 98.7 F-100.2 F 90-147 12-26 96-162/61-99 98-100 GENERAL: The patient is awake, alert, oriented, in no acute distress. Tracheostomy tube in place. HEAD: Normal with no signs of trauma. EYES: PERRL, extraocular movements intact, sclera anicteric, conjunctiva clear. No ptosis. NECK: Trachea midline, full range of motion, supple. LUNGS: Breath sounds equal, clear to auscultation bilaterally, no wheezes, no crackles, no accessory muscle use. HEART: Regular rate and rhythm, S1, S2 without murmur, rub or gallop. ABDOMEN: Soft, nontender, nondistended, normoactive bowel sounds, no guarding, no rebound, no hepatosplenomegaly, no masses. EXTREMITIES: 2+ pulses, warm, well-perfused, no edema. NEUROLOGICAL: Cranial nerves II through XII grossly intact. Normal speech, gait not observed. PSYCH: Normal mood, normal affect. SKIN: Warm, dry, normal turgor, no rashes or lesions noted Laboratory Results - last 24 hr 10/10/17 10/11/17 10/11/17 18:00 05:10 05:10 WBC 16.0 H 15.8 H RBC 2.65 L 2.68 L Hgb 7.6 L D 7.7 L Hct 22.9 L D 23.1 L MCV 86.4 86.3 MCH 28.7 28.9 MCHC 33.2 33.5 RDW 17.1 H 17.9 H Plt Count 221 249 MPV 7.4 L 7.5 Neutrophils % 76.8 Lymphocytes % 5.8 L D Monocytes % 9.5 Eosinophils % 7.5 H Basophils % 0.4 Sodium 140 Potassium 3.8 Chloride 110 H Carbon Dioxide 17 L Anion Gap 13 BUN 81 H Creatinine 3.6 H Creat Clearance w eGFR 16.95 Random Glucose 116 H Calcium 8.3 L Total Bilirubin 0.6 AST 16 ALT 6 L Alkaline Phosphatase 132 H Total Protein 7.2 Albumin 1.9 L Active Medications Generic Name Dose Route Start Last Admin Trade Name Ramo PRN Reason Stop Dose Admin Acetaminophen 650 mg 10/09/17 05:31 10/11/17 14:09 Tylenol - PO 650 mg Q6H PRN Administration FEVER OR PAIN Amiodarone HCl 200 mg 10/04/17 16:45 10/11/17 09:11 Cordarone - PEG 200 mg DAILY [facility] Administration Chlorhexidine Gluconate 15 ml 09/08/17 12:30 10/11/17 09:12 Peridex - MM 15 ml BID [facility] Administration Ferrous Sulfate 325 mg 09/05/17 12:00 10/11/17 09:11 Feosol - PO 325 mg DAILY [facility] Administration Folic Acid 1 mg 09/02/17 10:00 10/11/17 09:11 Folic Acid - PO 1 mg DAILY [facility] Administration Famotidine/Sodium Chloride 20 mg in 50 mls @ 100 mls/hr 09/28/17 10:00 09:12 Pepcid 20 Mg Premixed Ivpb - IVPB 100 mls/hr BID [facility] Administration Fentanyl 500 mcg/ Dextrose 100 mls @ 5 mls/hr 10/08/17 22:15 10/11/17 09:20 IVPB 50 mcg/hr TITR [facility] 10 mls/hr Protocol Administration 25 MCG/HR Aztreonam 1 gm in 10 mls @ 120 mls/hr 10/09/17 10:00 10/11/17 09:10 Azactam (Restricted To Id) - IVPUSH 120 mls/hr BID [facility] Administration Metoprolol Tartrate 5 mg 10/02/17 16:47 10/11/17 13:51 Lopressor Injection - IVPUSH 5 mg Q6H PRN Administration HYPERTENSION Metoprolol Tartrate 25 mg 10/05/17 08:14 10/11/17 09:11 Lopressor - PEG 25 mg BID [facility] Administration Multivitamins/Minerals 1 each 09/02/17 10:00 10/11/17 09:12 Theragran-M PO 1 each DAILY [facility] Administration Mupirocin 1 applic 09/23/17 10:00 10/11/17 10:30 Bactroban 2% Cream - TP 1 applic BID [facility] Administration Quetiapine Fumarate 25 mg 10/11/17 13:00 10/11/17 13:04 Seroquel - PO 25 mg DAILY [facility] Administration Sevelamer Carbonate 0.8 gm 10/05/17 08:16 10/11/17 12:00 Renvela Powder Packet - PEG 0.8 gm TIDCM [facility] Administration Thiamine HCl 100 mg 09/02/17 10:00 10/11/17 09:17 Vitamin B1 - PO 100 mg DAILY [facility] Administration ASSESSMENT/PLAN: Neuro: - Awake and alert; agitated - Will prescribe 25mg of seroquel once/day for agitation - Nurse is requesting wrist restraints 2/2 attempt at removal of vent tubing CV: - Recurrent a-fib - Amio 200mg via PEG - Patient tachy into the 130's, 10 of lopressor given; BP is 103/74. Will advise night team to watch closely Pulm: - Trach 2 days ago; tolerating well - Vent settings: - Assist control - RR: 14 - TV: 450 - FiO2: 40% - PEEP: 5 Renal: - ARF; BUN/Cr 85/3.6. Slightly improved - Freeman in removed. - Renal dose meds : - None GI: - None ID: - Continue vancomycin for renal function and Aztreonam for G- coverage - Source is unclear, likely cellulitis of RUE - CXR clear, UA does not indicate UTI Hem/Onc: - Hgb 6.6 today will transfuse 2 units. - repeat CBC after second unit. Endocrine: - None PPX: - Heparin GGT FEN (Fluids, electrolytes, nutrition): - Mg replenished - PEG tube feeding resumed today per carpenter inspector recs Dispo: - Continue to monitor in ICU - Consider transfer to LTAC tomorrow Visit type - Emergency Visit Emergency Visit: Yes ED Registration Date: 08/31/17 Care time: The patient presented to the Emergency Department on the above date and was hospitalized for further evaluation of their emergent condition. - New Patient This patient is new to me today: No - Critical Care Critical Care patient: Yes Total Critical Care Time (in minutes): 43 Critical Care Statement: The care of this patient involved high complexity decision making to prevent further life threatening deterioration of the patient 's condition and/or to evaluate & treat vital organ system(s) failure or risk of failure.
--- NOTE | 2017-10-11 15:21 | PN ---
Physical Exam: SUBJECTIVE: Patient seen and examined at bedside. Patient is trached, is awake and alert. Patient nods his head yes when asked if he would like water. OBJECTIVE: Vital Signs Period Temp Pulse Resp BP Sys/Jeff Pulse Ox Last 24 Hr 98.7 F-100.2 F 90-147 12-26 96-162/61-99 98-100 GENERAL: off sedation, awake and alert and responding to commands ENT: nares patent without signs of bleeding LUNGS: patient is trached, mechanical breath sounds, b/l rhonchi noted HEART: regular rate/rhythm, normal S1/S2 ABDOMEN: Soft, ntnd EXTREMITIES: 2+ pulses, 1+ pitting edema Lower>Upper SKIN: diffuse, erythematous, blanching rash noted on upper extremities and chest Laboratory Results - last 24 hr 10/10/17 10/11/17 10/11/17 18:00 05:10 05:10 WBC 16.0 H 15.8 H RBC 2.65 L 2.68 L Hgb 7.6 L D 7.7 L Hct 22.9 L D 23.1 L MCV 86.4 86.3 MCH 28.7 28.9 MCHC 33.2 33.5 RDW 17.1 H 17.9 H Plt Count 221 249 MPV 7.4 L 7.5 Neutrophils % 76.8 Lymphocytes % 5.8 L D Monocytes % 9.5 Eosinophils % 7.5 H Basophils % 0.4 Sodium 140 Potassium 3.8 Chloride 110 H Carbon Dioxide 17 L Anion Gap 13 BUN 81 H Creatinine 3.6 H Creat Clearance w eGFR 16.95 Random Glucose 116 H Calcium 8.3 L Total Bilirubin 0.6 AST 16 ALT 6 L Alkaline Phosphatase 132 H Total Protein 7.2 Albumin 1.9 L Active Medications Generic Name Dose Route Start Last Admin Trade Name Freq PRN Reason Stop Dose Admin Acetaminophen 650 mg 10/09/17 05:31 10/11/17 14:09 Tylenol - PO 650 mg Q6H PRN Administration FEVER OR PAIN Amiodarone HCl 200 mg 10/04/17 16:45 10/11/17 09:11 Cordarone - PEG 200 mg DAILY [facility] Administration Chlorhexidine Gluconate 15 ml 09/08/17 12:30 10/11/17 09:12 Peridex - MM 15 ml BID [facility] Administration Ferrous Sulfate 325 mg 09/05/17 12:00 10/11/17 09:11 Feosol - PO 325 mg DAILY [facility] Administration Folic Acid 1 mg 09/02/17 10:00 10/11/17 09:11 Folic Acid - PO 1 mg DAILY [facility] Administration Famotidine/Sodium Chloride 20 mg in 50 mls @ 100 mls/hr 09/28/17 10:00 09:12 Pepcid 20 Mg Premixed Ivpb - IVPB 100 mls/hr BID [facility] Administration Fentanyl 500 mcg/ Dextrose 100 mls @ 5 mls/hr 10/08/17 22:15 10/11/17 09:20 IVPB 50 mcg/hr TITR KINGS 10 mls/hr Protocol Administration 25 MCG/HR Aztreonam 1 gm in 10 mls @ 120 mls/hr 10/09/17 10:00 10/11/17 09:10 Azactam (Restricted To Id) - IVPUSH 120 mls/hr BID [facility] Administration Metoprolol Tartrate 5 mg 10/02/17 16:47 10/11/17 13:51 Lopressor Injection - IVPUSH 5 mg Q6H PRN Administration HYPERTENSION Metoprolol Tartrate 25 mg 10/05/17 08:14 10/11/17 09:11 Lopressor - PEG 25 mg BID [facility] Administration Multivitamins/Minerals 1 each 09/02/17 10:00 10/11/17 09:12 Theragran-M PO 1 each DAILY [facility] Administration Mupirocin 1 applic 09/23/17 10:00 10/11/17 10:30 Bactroban 2% Cream - TP 1 applic BID [facility] Administration Quetiapine Fumarate 25 mg 10/11/17 13:00 10/11/17 13:04 Seroquel - PO 25 mg DAILY [facility] Administration Sevelamer Carbonate 0.8 gm 10/05/17 08:16 10/11/17 12:00 Renvela Powder Packet - PEG 0.8 gm TIDCM [facility] Administration Thiamine HCl 100 mg 09/02/17 10:00 10/11/17 09:17 Vitamin B1 - PO 100 mg DAILY [facility] Administration CBC, BMP 10/11/17 05:10 10/11/17 05:10 ASSESSMENT/PLAN: 66yo man with PMH of EtOH abuse and HTN who is admitted (08/31) for acute hypoxic respiratory failure requiring mechanical ventilation (09/02-09/19, 09/24- , 10/01-). Continues to have cavitary PNA with loculated effusions bilaterally and acute thoracic osteomyletitis (T9-T10), currently on Vancomycin (renally dosed). Renal function improving, and maintaining UOP. s/p PEG and getting tube feeds. Patient is s/p tracheostomy on 10/09 #sepsis 2/2 cavitary PNA, acute osteomyelitis, s/p MSSA bacteremia -ID following, long-term abx needed for acute osteomyelitis (6-8 wks), antibiotics day#35 -Vancomycin 500mg IV (dosed renally); check Random Vanc level daily (~12 today) -Continue Aztreonam, day #3 -patient is s/p tracheostomy with vent management per ICU team #acute hypoxic respiratory failure -Vent mgmt per ICU team -s/p trach #ARF, Renal following -Ferrous Sulfate 325 mg PEG DAILY and Sevelamer Carbonate (Renvela) 800 mg PEG TID -Strict I&Os, hines, Renal dose for meds -renal function improving #Acute blood loss anemia -s/p 8Ux PRBCs, Hgb stable at 7.9 today -Trend H&H, transfuse Hgb<7 #Atrial fibrillation - recurrent episode last night, started on amio gtt -Cardiology following -continue Amiodarone 200mg PEG qd for rate control -hold AC now given co-morbidities (CHADVASC 2) #Chronic Diastolic heart failure -ECHO 09/02/2017 probable preserved LV function, but can't R/O regional wall motion abnormality -increase metoprolol 50mg PEG BID and 5mg IV Q6H PRN -consider hydralazine prn #EtOH abuse -Monitor for signs of EtOH withdrawal, unlikely at this point in hospitalization -MVI, thiamine 100mg PEG qd, folic acid 1mg PEG daily #FEN -No current standing fluids -replete electrolytes as necessary -Enteral feeds via PEG with free water flushes #PPX -Heparin 5000U SQ BID -GI - pepcid 20mg IV BID #Dispo: continue ICU monitoring FULL code -Try to attain [facility] when discharged Visit type - Emergency Visit Emergency Visit: No - New Patient This patient is new to me today: No - Critical Care Critical Care patient: Yes Total Critical Care Time (in minutes): 35 Critical Care Statement: The care of this patient involved high complexity decision making to prevent further life threatening deterioration of the patient 's condition and/or to evaluate & treat vital organ system(s) failure or risk of failure.
[2017-10-11] MEDS ORDERED: dilTIAZem HCL 50 MG/10 ML - 10 ML VIAL IVPUSH ONE (17:51)
[2017-10-11] MEDS ORDERED: dilTIAZem HCL 125 MG/25 ML - 25 ML VIAL ONE (17:53)
[2017-10-11] MEDS ORDERED: SODIUM CHLORIDE 500 ML IV STA (18:24)
[2017-10-11 21:17] LABS: MCH 29.1 pg (25.7-33.7); MCHC 33.8 g/dl (32.0-35.9); MEAN CELL VOLUME 86.1 fl (80-96); MEAN PLT VOLUME 7.3 fl (7.5-11.1); PLATELET COUNT 258 K/MM3 (134-434); RDW 17.3 % (11.9-15.9); WHITE BLOOD COUNT 15.2 K/mm3 (4.0-10.0)
[2017-10-11] MEDS: METOPROLOL TARTRATE 50 MG TABLET (FP) PEG SCH (21:41)
[2017-10-11] MEDS ORDERED: METOPROLOL TARTRATE 50 MG TABLET (FP) PEG SCH (22:00)
[2017-10-12] MEDS ORDERED: fentaNYL CITRATE 250 MCG/5 ML VIAL ONE ×3 (00:24→13:03)
[2017-10-12 06:35] LABS: BASOPHIL 0.8 % (0-2.0); EOSINOPHIL 9.2 % (0-4.5); MCH 29.1 pg (25.7-33.7); MCHC 33.7 g/dl (32.0-35.9); MEAN CELL VOLUME 86.3 fl (80-96); MEAN PLT VOLUME 7.1 fl (7.5-11.1); NEUTROPHILS 71.2 % (42.8-82.8); PLATELET COUNT 299 K/MM3 (134-434); RDW 17.2 % (11.9-15.9); WHITE BLOOD COUNT 14.5 K/mm3 (4.0-10.0)
[2017-10-12] MEDS: METOPROLOL TARTRATE 50 MG TABLET (FP) PEG SCH ×3 (06:45→21:29)
[2017-10-12 06:48] LABS: ALBUMIN 1.8 g/dl (3.4-5.0); ANION GAP 10 (8-16); CALCIUM 8.2 mg/dL (8.5-10.1); CO2 20 mmol/L (21-32); GLUCOSE,RANDOM 128 mg/dL (74-106)
[2017-10-12 06:50] LABS: ALK PHOS 140 U/L (45-117); BILIRUBIN,TOTAL 0.8 mg/dL (0.2-1.0); CREATININE 3.4 mg/dL (0.7-1.3); SGOT/AST 16 U/L (15-37); SGPT/ALT 8 U/L (12-78); TOT PROT 7.1 g/dl (6.4-8.2)
[2017-10-12] MEDS: FENTANYL INJECTION 500 MCG in DEXTROSE 5%-WATER - 90 ML IVPB SCH ×3 (07:04→23:00)
--- NOTE | 2017-10-12 07:46 | PN ---
Progress Note, Physician Chief Complaint: ID Vent depenedent Agitated - Current Medication List Current Medications: Active Medications Acetaminophen (Tylenol -) 650 mg PO Q6H PRN PRN Reason: FEVER OR PAIN Last Admin: 10/11/17 14:09 Dose: 650 mg Amiodarone HCl (Cordarone -) 200 mg PEG DAILY [facility] Last Admin: 10/11/17 09:11 Dose: 200 mg Chlorhexidine Gluconate (Peridex -) 15 ml MM BID [facility] [place] Last Admin: 10/11/17 21:41 Dose: 15 ml Ferrous Sulfate (Feosol -) 325 mg PO DAILY [facility] [place] Last Admin: 10/11/17 09:11 Dose: 325 mg Folic Acid (Folic Acid -) 1 mg PO DAILY [facility] [place] Last Admin: 10/11/17 09:11 Dose: 1 mg Famotidine/Sodium Chloride (Pepcid 20 Mg Premixed Ivpb -) 20 mg in 50 mls @ 100 mls/hr IVPB BID [facility] [place] Last Admin: 10/11/17 21:41 Dose: 100 mls/hr Fentanyl 500 mcg/ Dextrose 100 mls @ 5 mls/hr IVPB TITR KINGS; 25 MCG/HR PRN Reason: Protocol Last Admin: 10/12/17 07:04 Dose: 100 mcg/hr, 20 mls/hr Aztreonam (Azactam (Restricted To Id) -) 1 gm in 10 mls @ 120 mls/hr IVPUSH BID [facility] [place] Last Admin: 10/11/17 21:40 Dose: 120 mls/hr Metoprolol Tartrate (Lopressor Injection -) 5 mg IVPUSH Q6H PRN PRN Reason: HYPERTENSION Last Admin: 10/11/17 13:03 Dose: 5 mg Metoprolol Tartrate (Lopressor -) 50 mg PEG TID [facility] [place] Last Admin: 10/12/17 06:45 Dose: 50 mg Multivitamins/Minerals (Theragran-M) 1 each PO DAILY [facility] [place] Last Admin: 10/11/17 09:12 Dose: 1 each Mupirocin (Bactroban 2% Cream -) 1 applic TP BID [facility] Last Admin: 10/11/17 21:40 Dose: 1 applic Quetiapine Fumarate (Seroquel -) 25 mg PO DAILY [facility] [place] Last Admin: 10/11/17 13:04 Dose: 25 mg Sevelamer Carbonate (Renvela Powder Packet -) 0.8 gm PEG TIDCM [facility] [place] Last Admin: 10/11/17 22:28 Dose: 0.8 gm Thiamine HCl (Vitamin B1 -) 100 mg PO DAILY [facility] [place] Last Admin: 10/11/17 09:17 Dose: 100 mg - Objective Vital Signs: Vital Signs Temperature 99.6 F 10/12/17 06:00 Pulse Rate 88 10/12/17 06:00 Respiratory Rate 22 10/12/17 07:05 Blood Pressure 151/80 10/12/17 06:00 O2 Sat by Pulse Oximetry (%) 99 10/11/17 20:32 Constitutional: Yes: Well Nourished Neck: Yes: WNL, Supple Cardiovascular: Yes: Regular Rate and Rhythm, S1, S2. No: Murmur Respiratory: Yes: WNL, Regular, CTA Bilaterally Gastrointestinal: Yes: WNL, Normal Bowel Sounds, Soft. No: Tenderness Extremities: Yes: Other (Extremity of right arm No tenderness No redness) Labs: CBC, BMP 10/12/17 05:05 10/12/17 05:05 INR, PTT INR 1.14 (0.82-1.09) D 10/03/17 05:22 Problem List - Problems (1) Respiratory failure with hypoxia Code(s): J96.91 - RESPIRATORY FAILURE, UNSPECIFIED WITH HYPOXIA Qualifiers: Chronicity: acute Qualified Code(s): J96.01 - Acute respiratory failure with hypoxia (2) Pneumonia Code(s): J18.9 - PNEUMONIA, UNSPECIFIED ORGANISM Qualifiers: Pneumonia type: aspiration pneumonia (3) Staphylococcus aureus bacteremia Code(s): R78.81 - BACTEREMIA (5) Endocarditis due to Staphylococcus Code(s): I33.0 - ACUTE AND SUBACUTE INFECTIVE ENDOCARDITIS; B95.8 - UNSP STAPHYLOCOCCUS THE CAUSE OF DISEASES CLASSD ELSWHR (6) Discitis of cervicothoracic region Code(s): M46.43 - DISCITIS, UNSPECIFIED, CERVICOTHORACIC REGION Assessment/Plan Microbiology 10/10/17 08:45 Sputum - Endotrachea Suction/Ventilator Gram Stain - Final 10/09/17 04:30 Sputum - Endotrachea Suction/Ventilator Gram Stain - Final 10/09/17 04:30 Sputum - Endotrachea Suction/Ventilator Sputum Culture - Preliminary NORMAL RESPIRATORY HERBER 10/08/17 09:15 Blood - Peripheral Venous Blood Culture - Preliminary NO GROWTH OBTAINED AFTER 72 HOURS, INCUBATION TO CONTINUE FOR 2 DAYS. 10/08/17 09:10 Blood - Peripheral Venous Blood Culture - Preliminary NO GROWTH OBTAINED AFTER 72 HOURS, INCUBATION TO CONTINUE FOR 2 DAYS. Laboratory Tests 10/12/17 10/12/17 05:05 05:05 WBC 14.5 H RBC 2.69 L Hgb 7.8 L Plt Count 299 Neutrophils % 71.2 Lymphocytes % 8.3 D Monocytes % 10.5 H Eosinophils % 9.2 H BUN 79 H Creatinine 3.4 H Creat Clearance w eGFR 18.10 Assessment MSSA bacteremia Vertebral osteomyelitis MSSA related Respiratory failure Pleural effusions with congestive changes on chest xray (Chronic) alcoholism Swelling of the right arm but not cellulitis Eosinophilia Drug reaction beta lactam Plan Redose vancomcyin now day 36 of planned 8 weeks Note that the CRP is coming down nicely Stop Aztreonam No indication for this Esau EMERY
[2017-10-12] MEDS: SEVELAMER CARBONATE 0.8 GM POWDER PACKET PEG SCH ×3 (07:50→17:23)
[2017-10-12] MEDS ORDERED: VANCOMYCIN 1,250 MG in DEXTROSE 5%-WATER - 250 ML IVPB ONE (07:59)
[2017-10-12] MEDS: MUPIROCIN CA 2% TOPICAL CREAM 15 GM TUBE TP SCH ×2 (09:05→21:30)
[2017-10-12] MEDS: FAMOTIDINE 20 MG/50 ML IVPB 20 MG/50 ML MG IVPB SCH ×2 (09:09→21:29)
[2017-10-12] MEDS: FERROUS SO4 325 MG TABLET (FP) PO SCH (09:12)
[2017-10-12] MEDS: QUEtiapine FUMARATE 25 MG TABLET (FP) PO SCH (09:12)
[2017-10-12] MEDS: AMIODARONE HCL 200 MG TABLET (FP) PEG SCH (09:12)
[2017-10-12] MEDS: MULTIVITAMINS THER W-MINERALS COMBO TABLET (FP) PO SCH (09:12)
[2017-10-12] MEDS: THIAMINE HCL 100 MG TABLET (FP) PO SCH (09:13)
[2017-10-12] MEDS: FOLIC ACID 1 MG TABLET (FP) PO SCH (09:13)
[2017-10-12] MEDS: CHLORHEXIDINE GLUCONATE 0.12% 15ML CUP MM SCH (09:14)
--- NOTE | 2017-10-12 10:07 | PN ---
Progress Note (short form) - Note Progress Note: Patient seen and examined in the ICU. Vented on volume assist control. Awake on fentanyl gtt. No pressors. OBJECTIVE: Intake & Output 10/09/17 10/10/17 10/11/17 10/12/17 23:59 23:59 23:59 23:59 Intake Total 1460 1050 2040 840 Output Total 1500 Balance -40 1050 2040 840 Weight 191 lb 2.252 oz 186 lb 3.2 oz 186 lb 12.8 oz 188 lb 2 oz Last Vital Signs Temp Pulse Resp BP Pulse Ox 99.5 F 95 H 20 152/88 99 10/12/17 08:00 10/12/17 08:00 10/12/17 09:35 10/12/17 08:00 10/11/17 20:32 Active Medications Acetaminophen (Tylenol -) 650 mg PO Q6H PRN PRN Reason: FEVER OR PAIN Last Admin: 10/11/17 14:09 Dose: 650 mg Amiodarone HCl (Cordarone -) 200 mg PEG DAILY [facility] Last Admin: 10/12/17 09:12 Dose: 200 mg Chlorhexidine Gluconate (Peridex -) 15 ml MM BID [facility] Last Admin: 10/12/17 09:14 Dose: 15 ml Ferrous Sulfate (Feosol -) 325 mg PO DAILY [facility] Last Admin: 10/12/17 09:12 Dose: 325 mg Folic Acid (Folic Acid -) 1 mg PO DAILY [facility] Last Admin: 10/12/17 09:13 Dose: 1 mg Famotidine/Sodium Chloride (Pepcid 20 Mg Premixed Ivpb -) 20 mg in 50 mls @ 100 mls/hr IVPB BID [facility] Last Admin: 10/12/17 09:09 Dose: 100 mls/hr Fentanyl 500 mcg/ Dextrose 100 mls @ 5 mls/hr IVPB TITR KINGS; 25 MCG/HR PRN Reason: Protocol Last Titration: 10/12/17 09:35 Dose: 75 mcg/hr, 15 mls/hr Metoprolol Tartrate (Lopressor Injection -) 5 mg IVPUSH Q6H PRN PRN Reason: HYPERTENSION Last Admin: 10/11/17 13:03 Dose: 5 mg Metoprolol Tartrate (Lopressor -) 50 mg PEG TID [facility] Last Admin: 10/12/17 06:45 Dose: 50 mg Multivitamins/Minerals (Theragran-M) 1 each PO DAILY [facility] Last Admin: 10/12/17 09:12 Dose: 1 each Mupirocin (Bactroban 2% Cream -) 1 applic TP BID [facility] Last Admin: 10/12/17 09:05 Dose: 1 applic Quetiapine Fumarate (Seroquel -) 25 mg PO DAILY [facility] Last Admin: 10/12/17 09:12 Dose: 25 mg Sevelamer Carbonate (Renvela Powder Packet -) 0.8 gm PEG TIDCM [facility] Last Admin: 10/12/17 07:50 Dose: 0.8 gm Thiamine HCl (Vitamin B1 -) 100 mg PO DAILY [facility] Last Admin: 10/12/17 09:13 Dose: 100 mg Gen: awake, vented Heart: tachycardic, irregular Lung: scattered rhonchi Abd: soft, nontender Ext: no edema Laboratory Results - last 24 hr 10/09/17 10/11/17 10/12/17 15:15 20:35 05:05 WBC 15.2 H 14.5 H RBC 2.56 L 2.69 L Hgb 7.4 L 7.8 L Hct 22.0 L 23.2 L MCV 86.1 86.3 MCH 29.1 29.1 MCHC 33.8 33.7 RDW 17.3 H 17.2 H Plt Count 258 299 MPV 7.3 L 7.1 L Neutrophils % 71.2 Lymphocytes % 8.3 D Monocytes % 10.5 H Eosinophils % 9.2 H Basophils % 0.8 Manual Slide Review No Result Required. Sodium Potassium Chloride Carbon Dioxide Anion Gap BUN Creatinine Creat Clearance w eGFR Random Glucose Calcium Phosphorus Magnesium Total Bilirubin AST ALT Alkaline Phosphatase Total Protein Albumin Urine Eosinophils None seen 10/12/17 05:05 WBC RBC Hgb Hct MCV MCH MCHC RDW Plt Count MPV Neutrophils % Lymphocytes % Monocytes % Eosinophils % Basophils % Manual Slide Review Sodium 140 Potassium 3.4 L Chloride 110 H Carbon Dioxide 20 L Anion Gap 10 BUN 79 H Creatinine 3.4 H Creat Clearance w eGFR 18.10 Random Glucose 128 H Calcium 8.2 L Phosphorus 5.0 H D Magnesium 2.0 Total Bilirubin 0.8 D AST 16 ALT 8 L D Alkaline Phosphatase 140 H Total Protein 7.1 Albumin 1.8 L Urine Eosinophils ASSESSMENT AND PLAN: Acute Hypoxic Respiratory Failure Pneumonia MSSA Bacteremia Loculated Pleural Effusions LV Diastolic Dysfunction Paroxysmal Atrial Fibrillation Acute Kidney Injury GI Bleed Acute Blood Loss Anemia Cellulitis - ABX per ID - Holding heparin gtt - Monitor H/H - Transfuse as needed - protonix - O2 to keep SpO2 >90% - enteral feeds - spontaneous breathing trials as tolerated - DVT/GI prophylaxis - continue ICU monitoring - consider LTAC placement Dr Griffin critical care time spent in reviewing chart, evaluating patient and formulating plan 35 min
--- NOTE | 2017-10-12 10:23 | PN ---
Physical Exam: SUBJECTIVE: Patient seen and examined at bedside. Patient is awake and alert. Patient mouths that he is thirsty. Denies any pain or any other complaints. Last night patient went tachycardic and 5mg lopressor was given. OBJECTIVE: Vital Signs Period Temp Pulse Resp BP Sys/Jeff Pulse Ox Last 24 Hr 98.9 F-100.9 F 81-147 16-30 96-157/56-99 98-99 GENERAL: off sedation, awake and alert and responding to commands ENT: nares patent without signs of bleeding LUNGS: patient is trached, mechanical breath sounds, b/l rhonchi noted HEART: regular rate/rhythm, normal S1/S2 ABDOMEN: Soft, ntnd EXTREMITIES: 2+ pulses, 1+ pitting edema Lower>Upper SKIN: diffuse, erythematous, blanching rash noted on upper extremities and chest Laboratory Results - last 24 hr 10/09/17 10/11/17 10/12/17 15:15 20:35 05:05 WBC 15.2 H 14.5 H RBC 2.56 L 2.69 L Hgb 7.4 L 7.8 L Hct 22.0 L 23.2 L MCV 86.1 86.3 MCH 29.1 29.1 MCHC 33.8 33.7 RDW 17.3 H 17.2 H Plt Count 258 299 MPV 7.3 L 7.1 L Neutrophils % 71.2 Lymphocytes % 8.3 D Monocytes % 10.5 H Eosinophils % 9.2 H Basophils % 0.8 Manual Slide Review No Result Required. Sodium Potassium Chloride Carbon Dioxide Anion Gap BUN Creatinine Creat Clearance w eGFR Random Glucose Calcium Phosphorus Magnesium Total Bilirubin AST ALT Alkaline Phosphatase Total Protein Albumin Urine Eosinophils None seen 10/12/17 05:05 WBC RBC Hgb Hct MCV MCH MCHC RDW Plt Count MPV Neutrophils % Lymphocytes % Monocytes % Eosinophils % Basophils % Manual Slide Review Sodium 140 Potassium 3.4 L Chloride 110 H Carbon Dioxide 20 L Anion Gap 10 BUN 79 H Creatinine 3.4 H Creat Clearance w eGFR 18.10 Random Glucose 128 H Calcium 8.2 L Phosphorus 5.0 H D Magnesium 2.0 Total Bilirubin 0.8 D AST 16 ALT 8 L D Alkaline Phosphatase 140 H Total Protein 7.1 Albumin 1.8 L Urine Eosinophils Active Medications Generic Name Dose Route Start Last Admin Trade Name Freq PRN Reason Stop Dose Admin Acetaminophen 650 mg 10/09/17 05:31 10/11/17 14:09 Tylenol - PO 650 mg Q6H PRN Administration FEVER OR PAIN Amiodarone HCl 200 mg 10/04/17 16:45 10/12/17 09:12 Cordarone - PEG 200 mg DAILY [facility] Administration Chlorhexidine Gluconate 15 ml 09/08/17 12:30 10/12/17 09:14 Peridex - MM 15 ml BID [facility] Administration Ferrous Sulfate 325 mg 09/05/17 12:00 10/12/17 09:12 Feosol - PO 325 mg DAILY [facility] Administration Folic Acid 1 mg 09/02/17 10:00 10/12/17 09:13 Folic Acid - PO 1 mg DAILY [facility] Administration Hydromorphone HCl 1 mg 10/12/17 10:08 Dilaudid Injection - IVPUSH Q4H PRN PAIN Famotidine/Sodium Chloride 20 mg in 50 mls @ 100 mls/hr 09/28/17 10:00 09:09 Pepcid 20 Mg Premixed Ivpb - IVPB 100 mls/hr BID [facility] Administration Fentanyl 500 mcg/ Dextrose 100 mls @ 5 mls/hr 10/08/17 22:15 10/12/17 09:35 IVPB 75 mcg/hr TITR KINGS 15 mls/hr Protocol Titration 25 MCG/HR Metoprolol Tartrate 5 mg 10/02/17 16:47 10/11/17 13:03 Lopressor Injection - IVPUSH 5 mg Q6H PRN Administration HYPERTENSION Metoprolol Tartrate 50 mg 10/11/17 22:00 10/12/17 06:45 Lopressor - PEG 50 mg TID [facility] Administration Multivitamins/Minerals 1 each 09/02/17 10:00 10/12/17 09:12 Theragran-M PO 1 each DAILY [facility] Administration Mupirocin 1 applic 09/23/17 10:00 10/12/17 09:05 Bactroban 2% Cream - TP 1 applic BID [facility] Administration Quetiapine Fumarate 25 mg 10/11/17 13:00 10/12/17 09:12 Seroquel - PO 25 mg DAILY [facility] Administration Sevelamer Carbonate 0.8 gm 10/05/17 08:16 10/12/17 07:50 Renvela Powder Packet - PEG 0.8 gm TIDCM [facility] Administration Thiamine HCl 100 mg 10/16/17 10:00 10/12/17 09:13 Vitamin B1 - PO 100 mg DAILY [facility] Administration ASSESSMENT/PLAN: 66yo man with PMH of EtOH abuse and HTN who is admitted (08/31) for acute hypoxic respiratory failure requiring mechanical ventilation (09/02-09/19, 09/24- , 10/01-). Continues to have cavitary PNA with loculated effusions bilaterally and acute thoracic osteomyletitis (T9-T10), currently on Vancomycin (renally dosed). Renal function improving, and maintaining UOP. s/p PEG and getting tube feeds. Patient is s/p tracheostomy on 10/09. #sepsis 2/2 cavitary PNA, acute osteomyelitis, s/p MSSA bacteremia -ID following, long-term abx needed for acute osteomyelitis (6-8 wks), antibiotics day#35 -Vancomycin 500mg IV (dosed renally), redosed today -d/c aztreonam based on ID recommendations -patient is s/p tracheostomy with vent management per ICU team #acute hypoxic respiratory failure -Vent mgmt per ICU team -s/p trach #ARF, Renal following -Ferrous Sulfate 325 mg PEG DAILY and Sevelamer Carbonate (Renvela) 800 mg PEG TID -Strict I&Os, hines, Renal dose for meds -renal function improving #Acute blood loss anemia -s/p 8Ux PRBCs, Hgb stable at 7.9 today -Trend H&H, transfuse Hgb<7 #Atrial fibrillation - controlled, patient was tachycardic last night -Cardiology following -metoprolol given -continue Amiodarone 200mg PEG qd for rate control -hold AC now given co-morbidities (CHADVASC 2) #Chronic Diastolic heart failure -ECHO 09/02/2017 probable preserved LV function, but can't R/O regional wall motion abnormality -increase metoprolol 50mg PEG BID and 5mg IV Q6H PRN -consider hydralazine prn #EtOH abuse -Monitor for signs of EtOH withdrawal, unlikely at this point in hospitalization -MVI, thiamine 100mg PEG qd, folic acid 1mg PEG daily #FEN -No current standing fluids -replete electrolytes as necessary -Enteral feeds via PEG with free water flushes #PPX -Heparin 5000U SQ BID -GI - pepcid 20mg IV BID #Dispo: continue ICU monitoring FULL code -Try to attain [facility] when discharged Visit type - Emergency Visit Emergency Visit: No - New Patient This patient is new to me today: No - Critical Care Critical Care patient: Yes Total Critical Care Time (in minutes): 35 Critical Care Statement: The care of this patient involved high complexity decision making to prevent further life threatening deterioration of the patient 's condition and/or to evaluate & treat vital organ system(s) failure or risk of failure.
[2017-10-12] MEDS: NYSTATIN 100,000 UNIT/GM TOPICAL CREAM 15 GM TUBE TP SCH ×3 (11:30→19:10)
[2017-10-12] MEDS ORDERED: POTASSIUM CHLORIDE ORAL LIQUID 20 MEQ/15 ML PEG ONE (11:39)
--- NOTE | 2017-10-12 11:39 | PN ---
Progress Note, Physician History of Present Illness: Pt seen and examined at bedside. He is awake and appears comfortable. He remains in the ICU vented. - Current Medication List Current Medications: Active Medications Acetaminophen (Tylenol -) 650 mg PO Q6H PRN PRN Reason: FEVER OR PAIN Last Admin: 10/11/17 14:09 Dose: 650 mg Amiodarone HCl (Cordarone -) 200 mg PEG DAILY [facility] Last Admin: 10/12/17 09:12 Dose: 200 mg Chlorhexidine Gluconate (Peridex -) 15 ml MM BID [facility] Last Admin: 10/12/17 09:14 Dose: 15 ml Ferrous Sulfate (Feosol -) 325 mg PO DAILY [facility] Last Admin: 10/12/17 09:12 Dose: 325 mg Folic Acid (Folic Acid -) 1 mg PO DAILY [facility] Last Admin: 10/12/17 09:13 Dose: 1 mg Hydromorphone HCl (Dilaudid Injection -) 1 mg IVPUSH Q4H PRN PRN Reason: PAIN Famotidine/Sodium Chloride (Pepcid 20 Mg Premixed Ivpb -) 20 mg in 50 mls @ 100 mls/hr IVPB BID [facility] Last Admin: 10/12/17 09:09 Dose: 100 mls/hr Fentanyl 500 mcg/ Dextrose 100 mls @ 5 mls/hr IVPB TITR [facility]; 25 MCG/HR PRN Reason: Protocol Last Titration: 10/12/17 09:35 Dose: 75 mcg/hr, 15 mls/hr Metoprolol Tartrate (Lopressor Injection -) 5 mg IVPUSH Q6H PRN PRN Reason: HYPERTENSION Last Admin: 10/11/17 13:03 Dose: 5 mg Metoprolol Tartrate (Lopressor -) 50 mg PEG TID [facility] Last Admin: 10/12/17 06:45 Dose: 50 mg Multivitamins/Minerals (Theragran-M) 1 each PO DAILY [facility] Last Admin: 10/12/17 09:12 Dose: 1 each Mupirocin (Bactroban 2% Cream -) 1 applic TP BID [facility] Last Admin: 10/12/17 09:05 Dose: 1 applic Nystatin (Mycostatin Cream -) 1 applic TP Q6HPO [facility] Quetiapine Fumarate (Seroquel -) 25 mg PO DAILY [facility] Last Admin: 10/12/17 09:12 Dose: 25 mg Sevelamer Carbonate (Renvela Powder Packet -) 0.8 gm PEG TIDCM [facility] Last Admin: 10/12/17 07:50 Dose: 0.8 gm Thiamine HCl (Vitamin B1 -) 100 mg PO DAILY [facility] Last Admin: 10/12/17 09:13 Dose: 100 mg - Objective Vital Signs: Vital Signs Temperature 99.9 F H 10/12/17 10:00 Pulse Rate 89 10/12/17 10:00 Respiratory Rate 20 10/12/17 10:00 Blood Pressure 123/70 10/12/17 10:00 O2 Sat by Pulse Oximetry (%) 99 10/12/17 10:00 Constitutional: Yes: Calm Eyes: Yes: Conjunctiva Clear Neck: Yes: Other (trache) Cardiovascular: Yes: S1, S2 Respiratory: Yes: Mechanically Ventilated Gastrointestinal: Yes: Soft, Other (peg) Genitourinary: Yes: Incontinence Musculoskeletal: Yes: Muscle Weakness Edema: Yes Edema: LUE: 1+, RUE: 1+ Neurological: Yes: Other (awake) Labs: CBC, BMP 10/12/17 05:05 10/12/17 05:05 INR, PTT INR 1.14 (0.82-1.09) D 10/03/17 05:22 Problem List - Problems (1) Abuse, drug or alcohol Code(s): F19.10 - OTHER PSYCHOACTIVE SUBSTANCE ABUSE, UNCOMPLICATED (2) Withdrawal symptoms, alcohol Code(s): F10.239 - ALCOHOL DEPENDENCE WITH WITHDRAWAL, UNSPECIFIED Qualifiers: Complication of substance-induced condition: uncomplicated Qualified Code(s ): F10.230 - Alcohol dependence with withdrawal, uncomplicated (3) Hyponatremia Code(s): E87.1 - HYPO-OSMOLALITY AND HYPONATREMIA (4) Respiratory failure with hypoxia Code(s): J96.91 - RESPIRATORY FAILURE, UNSPECIFIED WITH HYPOXIA Qualifiers: Chronicity: acute Qualified Code(s): J96.01 - Acute respiratory failure with hypoxia (5) Staphylococcus aureus bacteremia Code(s): R78.81 - BACTEREMIA (6) Acute kidney injury Code(s): N17.9 - ACUTE KIDNEY FAILURE, UNSPECIFIED (7) Anemia Code(s): D64.9 - ANEMIA, UNSPECIFIED Qualifiers: Anemia type: unspecified type Qualified Code(s): D64.9 - Anemia, unspecified Assessment/Plan Current Medications Generic Name Dose Route Start Last Admin Trade Name Freq PRN Reason Stop Dose Admin Acetaminophen 650 mg 10/09/17 05:31 10/11/17 14:09 Tylenol - PO 650 mg Q6H PRN Administration FEVER OR PAIN Amiodarone HCl 200 mg 10/04/17 16:45 10/12/17 09:12 Cordarone - PEG 200 mg DAILY [facility] Administration Chlorhexidine Gluconate 15 ml 09/08/17 12:30 10/12/17 09:14 Peridex - MM 15 ml BID [facility] Administration Ferrous Sulfate 325 mg 09/05/17 12:00 10/12/17 09:12 Feosol - PO 325 mg DAILY [facility] Administration Folic Acid 1 mg 09/02/17 10:00 10/12/17 09:13 Folic Acid - PO 1 mg DAILY [facility] Administration Hydromorphone HCl 1 mg 10/12/17 10:08 Dilaudid Injection - IVPUSH Q4H PRN PAIN Famotidine/Sodium Chloride 20 mg in 50 mls @ 100 mls/hr 09/28/17 10:00 09:09 Pepcid 20 Mg Premixed Ivpb - IVPB 100 mls/hr BID [facility] Administration Fentanyl 500 mcg/ Dextrose 100 mls @ 5 mls/hr 10/08/17 22:15 10/12/17 09:35 IVPB 75 mcg/hr TITR [facility] 15 mls/hr Protocol Titration 25 MCG/HR Metoprolol Tartrate 5 mg 10/02/17 16:47 10/11/17 13:03 Lopressor Injection - IVPUSH 5 mg Q6H PRN Administration HYPERTENSION Metoprolol Tartrate 50 mg 10/11/17 22:00 10/12/17 06:45 Lopressor - PEG 50 mg TID [facility] Administration Multivitamins/Minerals 1 each 09/02/17 10:00 10/12/17 09:12 Theragran-M PO 1 each DAILY [facility] Administration Mupirocin 1 applic 09/23/17 10:00 10/12/17 09:05 Bactroban 2% Cream - TP 1 applic BID [facility] Administration Nystatin 1 applic 10/12/17 11:30 Mycostatin Cream - TP Q6HPO [facility] Quetiapine Fumarate 25 mg 10/11/17 13:00 10/12/17 09:12 Seroquel - PO 25 mg DAILY [facility] Administration Sevelamer Carbonate 0.8 gm 10/05/17 08:16 10/12/17 07:50 Renvela Powder Packet - PEG 0.8 gm TIDCM [facility] Administration Thiamine HCl 100 mg 09/02/17 10:00 10/12/17 09:13 Vitamin B1 - PO 100 mg DAILY [facility] Administration Impression 1. ALEXANDRA 2. fluid overload 3. hypoalbuminemia 4. respiratory failure requiring intubation 5. anemia 6. etoh abuse 7. fevers 8. hypokalemia 9. pleural effusion 10. hypernatremia 11. GI bleed 12. rash Plan - renal function continues to improve - replace potassium - check mag level - vent support - monitor hg - can give lasix prn - ALEXANDRA is multifactorial - will follow Dr Peres
--- NOTE | 2017-10-12 12:34 | PN ---
Progress Note, Physician Chief Complaint: Remains in ICU and remains on mechanical ventilator via trache. Awake Heart rate improved History of Present Illness: Patient was seen and examined in ICU. Remains on mechanical ventilation. Chart was reviewed On Fentanyl Heart rate improved - Current Medication List Current Medications: Active Medications Acetaminophen (Tylenol -) 650 mg PO Q6H PRN PRN Reason: FEVER OR PAIN Last Admin: 10/11/17 14:09 Dose: 650 mg Amiodarone HCl (Cordarone -) 200 mg PEG DAILY [facility] Last Admin: 10/12/17 09:12 Dose: 200 mg Chlorhexidine Gluconate (Peridex -) 15 ml MM BID [facility] Last Admin: 10/12/17 09:14 Dose: 15 ml Ferrous Sulfate (Feosol -) 325 mg PO DAILY [facility] Last Admin: 10/12/17 09:12 Dose: 325 mg Folic Acid (Folic Acid -) 1 mg PO DAILY [facility] Last Admin: 10/12/17 09:13 Dose: 1 mg Hydromorphone HCl (Dilaudid Injection -) 1 mg IVPUSH Q4H PRN PRN Reason: PAIN Famotidine/Sodium Chloride (Pepcid 20 Mg Premixed Ivpb -) 20 mg in 50 mls @ 100 mls/hr IVPB BID [facility] Last Admin: 10/12/17 09:09 Dose: 100 mls/hr Fentanyl 500 mcg/ Dextrose 100 mls @ 5 mls/hr IVPB TITR [facility]; 25 MCG/HR PRN Reason: Protocol Last Titration: 10/12/17 12:02 Dose: 50 mcg/hr, 10 mls/hr Metoprolol Tartrate (Lopressor Injection -) 5 mg IVPUSH Q6H PRN PRN Reason: HYPERTENSION Last Admin: 10/11/17 13:03 Dose: 5 mg Metoprolol Tartrate (Lopressor -) 50 mg PEG TID [facility] Last Admin: 10/12/17 06:45 Dose: 50 mg Multivitamins/Minerals (Theragran-M) 1 each PO DAILY [facility] Last Admin: 10/12/17 09:12 Dose: 1 each Mupirocin (Bactroban 2% Cream -) 1 applic TP BID [facility] Last Admin: 10/12/17 09:05 Dose: 1 applic Nystatin (Mycostatin Cream -) 1 applic TP Q6HPO [facility] Quetiapine Fumarate (Seroquel -) 25 mg PO DAILY [facility] Last Admin: 10/12/17 09:12 Dose: 25 mg Sevelamer Carbonate (Renvela Powder Packet -) 0.8 gm PEG TIDCM [facility] Last Admin: 10/12/17 12:01 Dose: 0.8 gm Thiamine HCl (Vitamin B1 -) 100 mg PO DAILY [facility] Last Admin: 10/12/17 09:13 Dose: 100 mg - Objective Vital Signs: Vital Signs Temperature 6 F L 10/12/17 12:00 Pulse Rate 86 10/12/17 12:00 Respiratory Rate 20 10/12/17 12:00 Blood Pressure 134/79 10/12/17 12:00 O2 Sat by Pulse Oximetry (%) 99 10/12/17 10:00 Cardiovascular: Yes: Regular Rate and Rhythm, Murmur (Soft SM), S1, S2 Respiratory: Yes: Diminished, Mechanically Ventilated Gastrointestinal: Yes: Normal Bowel Sounds, Soft Edema: Yes Edema: LLE: 1+, RLE: 1+ Labs: CBC, BMP 10/12/17 05:05 10/12/17 05:05 Problem List - Problems (1) Abuse, drug or alcohol Code(s): F19.10 - OTHER PSYCHOACTIVE SUBSTANCE ABUSE, UNCOMPLICATED (2) Respiratory failure with hypoxia Code(s): J96.91 - RESPIRATORY FAILURE, UNSPECIFIED WITH HYPOXIA Qualifiers: Chronicity: acute Qualified Code(s): J96.01 - Acute respiratory failure with hypoxia (3) Pneumonia Code(s): J18.9 - PNEUMONIA, UNSPECIFIED ORGANISM Qualifiers: Pneumonia type: aspiration pneumonia (5) History of alcohol abuse Code(s): Z87.898 - PERSONAL HISTORY OF OTHER SPECIFIED CONDITIONS (6) Acute diastolic heart failure Code(s): I50.31 - ACUTE DIASTOLIC (CONGESTIVE) HEART FAILURE (7) Anemia Code(s): D64.9 - ANEMIA, UNSPECIFIED Qualifiers: Anemia type: unspecified type Qualified Code(s): D64.9 - Anemia, unspecified Assessment/Plan 1. Paroxysmal atrial fibrillation [id number] score of 2 - off Eliquis 2. Acute hypoxic respiratory failure, post re-intubated, pulmonary infiltrates/ pulmonary edema improving - remains of mechanical ventilation via trache 3. Cavitating pneumonia, MSSA bacteremia, post septic shock no evidence of endocarditis by ALISA criteria 4. Diastolic LV dysfunction with class I-II NYHA congestive heart failure, volume overload, resolved 5. 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 Loculated effusion post chest tube insertion 7. History of alcohol dependence 8. Acute renal insufficiency 9. Hypernatremia 10. Anemia PLAN: 1. Vent support 2. Continue beta amairani - increased Lopressor dose via PEG - heart rate improved 3. Continue Amiodarone via PEG 4. Antibiotics as per ID service - elevated WBC 5. Ideally needs to be on anticoagulation if not contraindicated Further plans are to follow Jordon Gtz MD
--- NOTE | 2017-10-12 13:18 | PN ---
Teaching Attending Note Name of Resident: Blair White ATTENDING PHYSICIAN STATEMENT Time of evaluation: 8:45 AM I saw and evaluated the patient. I reviewed the resident's note and discussed the case with the resident. I agree with the resident's findings and plan as documented. SUBJECTIVE: Patient seen and examined. Less restless today, further ROS limited, denies any pain. OBJECTIVE: Vital Signs Period Temp Pulse Resp BP Sys/Jeff Pulse Ox Last 24 Hr 6 F-100.9 F 81-147 16-30 96-153/56-94 98-99 Intake & Output 10/09/17 10/10/17 10/11/17 10/12/17 23:59 23:59 23:59 23:59 Intake Total 1460 1050 2040 840 Output Total 1500 Balance -40 1050 2040 840 Weight 191 lb 2.252 oz 186 lb 3.2 oz 186 lb 12.8 oz 188 lb 2 oz General: lying in bed, less restless today CVS: S1S2 irregular Chest: occasional rales, limited exam Neck: trach with mild dried blood around Abdomen: soft, obese, PEG in place Extremities: anasarca, resolving RLE lesions Home Medication List Medication Instructions Recorded Confirmed Type Unobtainable [Unobtainable] 08/31/17 08/31/17 History Active Medications Generic Name Dose Route Start Last Admin Trade Name Freq PRN Reason Stop Dose Admin Acetaminophen 650 mg 10/09/17 05:31 10/11/17 14:09 Tylenol - PO 650 mg Q6H PRN Administration FEVER OR PAIN Amiodarone HCl 200 mg 10/04/17 16:45 10/12/17 09:12 Cordarone - PEG 200 mg DAILY [facility] Administration Chlorhexidine Gluconate 15 ml 09/08/17 12:30 10/12/17 09:14 Peridex - MM 15 ml BID [facility] Administration Ferrous Sulfate 325 mg 09/05/17 12:00 10/12/17 09:12 Feosol - PO 325 mg DAILY [facility] Administration Folic Acid 1 mg 09/02/17 10:00 10/12/17 09:13 Folic Acid - PO 1 mg DAILY [facility] Administration Hydromorphone HCl 1 mg 10/12/17 10:08 Dilaudid Injection - IVPUSH Q4H PRN PAIN Famotidine/Sodium Chloride 20 mg in 50 mls @ 100 mls/hr 09/28/17 10:00 09:09 Pepcid 20 Mg Premixed Ivpb - IVPB 100 mls/hr BID [facility] Administration Fentanyl 500 mcg/ Dextrose 100 mls @ 5 mls/hr 10/08/17 22:15 10/12/17 13:07 IVPB 50 mcg/hr TITR [facility] 10 mls/hr Protocol Administration 25 MCG/HR Metoprolol Tartrate 5 mg 10/02/17 16:47 10/11/17 13:03 Lopressor Injection - IVPUSH 5 mg Q6H PRN Administration HYPERTENSION Metoprolol Tartrate 50 mg 10/11/17 22:00 10/12/17 06:45 Lopressor - PEG 50 mg TID [facility] Administration Multivitamins/Minerals 1 each 09/02/17 10:00 10/12/17 09:12 Theragran-M PO 1 each DAILY [facility] Administration Mupirocin 1 applic 09/23/17 10:00 10/12/17 09:05 Bactroban 2% Cream - TP 1 applic BID [facility] Administration Nystatin 1 applic 10/12/17 11:30 Mycostatin Cream - TP Q6HPO [facility] Quetiapine Fumarate 25 mg 10/11/17 13:00 10/12/17 09:12 Seroquel - PO 25 mg DAILY [facility] Administration Sevelamer Carbonate 0.8 gm 10/05/17 08:16 10/12/17 12:01 Renvela Powder Packet - PEG 0.8 gm TIDCM [facility] Administration Thiamine HCl 100 mg 09/02/17 10:00 10/12/17 09:13 Vitamin B1 - PO 100 mg DAILY [facility] Administration Laboratory Results - last 24 hr 10/09/17 10/11/17 10/12/17 15:15 20:35 05:05 WBC 15.2 H 14.5 H RBC 2.56 L 2.69 L Hgb 7.4 L 7.8 L Hct 22.0 L 23.2 L MCV 86.1 86.3 MCH 29.1 29.1 MCHC 33.8 33.7 RDW 17.3 H 17.2 H Plt Count 258 299 MPV 7.3 L 7.1 L Neutrophils % 71.2 Lymphocytes % 8.3 D Monocytes % 10.5 H Eosinophils % 9.2 H Basophils % 0.8 Manual Slide Review No Result Required. Sodium Potassium Chloride Carbon Dioxide Anion Gap BUN Creatinine Creat Clearance w eGFR Random Glucose Calcium Phosphorus Magnesium Total Bilirubin AST ALT Alkaline Phosphatase Total Protein Albumin Urine Eosinophils None seen 10/12/17 05:05 WBC RBC Hgb Hct MCV MCH MCHC RDW Plt Count MPV Neutrophils % Lymphocytes % Monocytes % Eosinophils % Basophils % Manual Slide Review Sodium 140 Potassium 3.4 L Chloride 110 H Carbon Dioxide 20 L Anion Gap 10 BUN 79 H Creatinine 3.4 H Creat Clearance w eGFR 18.10 Random Glucose 128 H Calcium 8.2 L Phosphorus 5.0 H D Magnesium 2.0 Total Bilirubin 0.8 D AST 16 ALT 8 L D Alkaline Phosphatase 140 H Total Protein 7.1 Albumin 1.8 L Urine Eosinophils Microbiology 10/09/17 04:30 Sputum - Endotrachea Suction/Ventilator Gram Stain - Final 10/09/17 04:30 Sputum - Endotrachea Suction/Ventilator Sputum Culture - Final NORMAL RESPIRATORY HERBER 10/10/17 08:45 Sputum - Endotrachea Suction/Ventilator Gram Stain - Final 10/10/17 08:45 Sputum - Endotrachea Suction/Ventilator Sputum Culture - Preliminary NORMAL RESPIRATORY HERBER 10/08/17 09:10 Blood - Peripheral Venous Blood Culture - Preliminary NO GROWTH OBTAINED AFTER 96 HOURS, INCUBATION TO CONTINUE FOR 1 DAYS. 10/08/17 09:15 Blood - Peripheral Venous Blood Culture - Preliminary NO GROWTH OBTAINED AFTER 96 HOURS, INCUBATION TO CONTINUE FOR 1 DAYS. 09/08/17 18:00 Pleural Fluid MAGI Preparation - Final 09/08/17 18:00 Pleural Fluid Fungal Culture - Final 09/22/17 13:45 Blood - Peripheral Venous Blood Culture - Final NO GROWTH AFTER 5 DAYS INCUBATION 09/22/17 13:45 Blood - Peripheral Venous Blood Culture - Final NO GROWTH AFTER 5 DAYS INCUBATION 09/17/17 16:14 Pleural Fluid AFB Smear Concentration - Final 09/17/17 16:14 Pleural Fluid Mycobacterial Culture - Preliminary 09/19/17 10:23 Blood - Peripheral Venous Blood Culture - Final NO GROWTH AFTER 5 DAYS INCUBATION 09/19/17 10:23 Blood - Peripheral Venous Blood Culture - Final NO GROWTH AFTER 5 DAYS INCUBATION 09/19/17 10:00 Leg - Right Lower Gram Stain - Final 09/19/17 10:00 Leg - Right Lower Wound Culture - Final Diphtheroid/Corynebacterium Staphylococcus Coagulase Neg 09/17/17 16:14 Pleural Fluid Gram Stain - Final 09/17/17 16:14 Pleural Fluid Body Fluid Culture - Final NO GROWTH OF AEROBIC ORGANISMS AFTER 48 HOURS INCUBATION 09/17/17 16:14 Pleural Fluid Anaerobic Culture - Final NO ANAEROBES WERE ISOLATED 09/17/17 16:14 Pleural Fluid MAGI Preparation - Preliminary 09/17/17 16:14 Pleural Fluid Fungal Culture - Preliminary 09/12/17 09:20 Blood - Peripheral Venous Blood Culture - Final NO GROWTH AFTER 5 DAYS INCUBATION 09/12/17 09:15 Blood - Peripheral Venous Blood Culture - Final NO GROWTH AFTER 5 DAYS INCUBATION 09/10/17 10:00 Blood - Peripheral Venous Blood Culture - Final NO GROWTH AFTER 5 DAYS INCUBATION 09/10/17 10:00 Blood - Peripheral Venous Blood Culture - Final NO GROWTH AFTER 5 DAYS INCUBATION 09/08/17 05:45 Blood - Peripheral Venous Blood Culture - Final NO GROWTH AFTER 5 DAYS INCUBATION 09/08/17 05:45 Blood - Peripheral Venous Blood Culture - Final NO GROWTH AFTER 5 DAYS INCUBATION 09/10/17 09:35 Sputum - Endotrachea Suction/Ventilator Gram Stain - Final 09/10/17 09:35 Sputum - Endotrachea Suction/Ventilator Sputum Culture - Final Yeast Like Organism 09/08/17 18:07 Pleural Fluid Gram Stain - Final 09/08/17 18:07 Pleural Fluid Body Fluid Culture - Final NO GROWTH OF AEROBIC ORGANISMS AFTER 48 HOURS INCUBATION 09/08/17 18:07 Pleural Fluid Anaerobic Culture - Final NO ANAEROBES WERE ISOLATED 09/10/17 09:35 Urine - Urine Freeman Urine Culture - Final NO GROWTH OBTAINED 09/06/17 11:02 Blood - Peripheral Venous Blood Culture - Final NO GROWTH AFTER 5 DAYS INCUBATION 09/10/17 09:05 Stool Clostridium difficile Antigen (KHRIS) - Final 09/10/17 09:05 Stool Clostridium difficile Toxin Assay - Final 09/08/17 18:00 Pleural Fluid AFB Smear Concentration - Final 09/08/17 18:00 Pleural Fluid Mycobacterial Culture - Preliminary 09/06/17 11:02 Blood - Peripheral Venous Blood Culture - Final Staphylococcus Aureus 09/04/17 08:15 Blood - Peripheral Venous Blood Culture - Final NO GROWTH AFTER 5 DAYS INCUBATION 09/04/17 08:00 Blood - Peripheral Venous Blood Culture - Final NO GROWTH AFTER 5 DAYS INCUBATION 09/05/17 21:00 Sputum - Endotrachea Suction/Ventilator Gram Stain - Final 09/05/17 21:00 Sputum - Endotrachea Suction/Ventilator Sputum Culture - Final Yeast Like Organism 09/06/17 10:20 Stool Clostridium difficile Antigen (KHRIS) - Final 09/06/17 10:20 Stool Clostridium difficile Toxin Assay - Final 09/02/17 00:00 Sputum - Endotracheal Suction W/O Vent Gram Stain - Final 09/02/17 00:00 Sputum - Endotracheal Suction W/O Vent Sputum Culture - Final Yeast Like Organism 09/03/17 12:15 Urine - Urine - Catheterized Urine Culture - Final NO GROWTH OBTAINED 09/01/17 05:00 Blood - Peripheral Venous Blood Culture - Final Staphylococcus Aureus 09/01/17 00:01 Blood - Peripheral Venous Blood Culture - Final Staphylococcus Aureus 09/01/17 15:50 Blood - Peripheral Venous Blood Culture - Final Staphylococcus Aureus 09/01/17 15:55 Blood - Peripheral Venous Blood Culture - Final Staphylococcus Aureus 08/31/17 23:22 Urine - Urine Clean Catch Urine Culture - Final Contaminated: Please Repeat ASSESSMENT AND PLAN: -Acute hypoxic respiratory failure -Severe sepsis due to cavitary PNA, MSSA bacteremia, ALISA neg for vegetation -Large right loculated pleural effusion, s/p chest tube, removed now -Aspiration risk -Acute T9-T10 discitis/osteomyelitis -Hematochezia, resolved -ARF, from sepsis related ATN vs medication related, ?AIN -Acute on chronic anemia, suspect from renal dysfunction, compounded by blood loss earlier from hematochezia -AFib with RVR recurrent -Rash, ?medication induced , monitor for now. -Hypokalemia/hypomagnesemia -Hyperphosphatemia -Hypovolumic hypernatremia -Alcohol abuse -Normocytic anemia, now acute blood loss anemia from trach (suctioned blood and clots from trach 10/09) -Acute transaminitis -Chronic right subdural hematoma -Thrombocytopenia Secondary to alcohol, splenomegaly. now stable -Chronic right subdural hematoma Plan: s/p extubated 09/19 and re-intubated and extubated 09/27. re-intubated 10/01. due to tachypnea and hypoxia. full vent support. s/p trach 10/09. Tapering off fentanyl as tolerated. No further fevers, improved WBC, continue trach suction, sputum cultures, repeat cultures sent, u/a, CXR noted, ID input appreciated, WBC trending down, Aztreonam d/diandra today. Chest tube removed. on vanco by level. will need 6-8w abx for OM. CT surgery and ID on board back in sinus rhythm, Amiodarine and lopressor via PEG. should ideally be on coumadin once improved. Increased lopressor, received cardizem overnight. Renal function slowly improving, ?Diuretic phase of ATN, continue to monitor, renal dosing of meds. s/p 9 units PRBC this admission. Recurrent anemia from blood loss as above from trach site with suctioning of clots, stable post transfusion. Free water flushes prn and follow up Na level. s/p PEG placement, continue feeds US shows hepatosplenomegaly and fatty infiltration of liver Continue thiamine, folic acid, multivitamin DVT prophylaxis- heparin sq MICU monitoring. poor overall prognosis. pt will likely benefit from LTAC facility. The care of this patient involved high complexity decision making to prevent further life threatening deterioration of the patient's condition and/or to evaluate & treat vital organ system(s) failure or risk of failure. 35 mins
[2017-10-12] MEDS: ACETAMINOPHEN 325 MG TABLET (FP) PO PRN ×2 (16:18→21:29)
[2017-10-12] MEDS ORDERED: PT OWN MED DRAWER 7, Y5N ONE (17:22)
[2017-10-12] MEDS: HYDROmorphone HCL CARPU-JECT 2 MG/1 ML DISP.SYRIN IVPUSH PRN ×2 (18:33→21:29)
[2017-10-12] MEDS ORDERED: QUEtiapine FUMARATE 25 MG TABLET (FP) PEG STA (23:57)
[2017-10-13] MEDS: NYSTATIN 100,000 UNIT/GM TOPICAL CREAM 15 GM TUBE TP SCH ×4 (00:07→18:09)
[2017-10-13] MEDS: QUEtiapine FUMARATE 25 MG TABLET (FP) PEG SCH ×2 (00:08→10:14)
[2017-10-13] MEDS: HYDROmorphone HCL CARPU-JECT 2 MG/1 ML DISP.SYRIN IVPUSH PRN ×2 (03:04→19:38)
[2017-10-13] MEDS: METOPROLOL TARTRATE 50 MG TABLET (FP) PEG SCH ×3 (06:12→21:23)
[2017-10-13 06:43] LABS: MCH 28.7 pg (25.7-33.7); MCHC 33.5 g/dl (32.0-35.9); MEAN CELL VOLUME 85.7 fl (80-96); MEAN PLT VOLUME 6.6 fl (7.5-11.1); PLATELET COUNT 296 K/MM3 (134-434); RDW 16.9 % (11.9-15.9); WHITE BLOOD COUNT 12.3 K/mm3 (4.0-10.0)
[2017-10-13] MEDS ORDERED: fentaNYL CITRATE 250 MCG/5 ML VIAL ONE (07:26)
[2017-10-13] MEDS: FENTANYL INJECTION 500 MCG in DEXTROSE 5%-WATER - 90 ML IVPB SCH (07:36)
[2017-10-13 07:42] LABS: CALCIUM 8.1 mg/dL (8.5-10.1)
[2017-10-13] MEDS: SEVELAMER CARBONATE 0.8 GM POWDER PACKET PEG SCH ×3 (07:42→17:11)
[2017-10-13 07:48] LABS: ALBUMIN 1.7 g/dl (3.4-5.0); ALK PHOS 735 U/L (45-117); ANION GAP 11 (8-16); BILIRUBIN,TOTAL 1.4 mg/dL (0.2-1.0); CO2 19 mmol/L (21-32); CREATININE 3.2 mg/dL (0.7-1.3); GLUCOSE,RANDOM 108 mg/dL (74-106); SGOT/AST 69 U/L (15-37); SGPT/ALT 26 U/L (12-78); TOT PROT 7.3 g/dl (6.4-8.2)
--- NOTE | 2017-10-13 09:49 | PN ---
Progress Note (short form) - Note Progress Note: Patient seen and examined in the ICU. Vented on volume assist control. Awake and interactive. Still reporting pleuritic type CP and discomfort at the Trach site. No pressors. OBJECTIVE: Intake & Output 10/10/17 10/11/17 10/12/17 10/13/17 23:59 23:59 23:59 23:59 Intake Total 1050 2040 2600 630 Balance 1050 2040 2600 630 Weight 186 lb 3.2 oz 186 lb 12.8 oz 188 lb 2 oz 186 lb 4.65 oz Last Vital Signs Temp Pulse Resp BP Pulse Ox 99.6 F 91 H 18 140/81 90 L 10/13/17 06:00 10/13/17 06:00 10/13/17 08:51 10/13/17 06:00 10/13/17 08:51 Active Medications Acetaminophen (Tylenol -) 650 mg PO Q6H PRN PRN Reason: FEVER OR PAIN Last Admin: 10/12/17 21:29 Dose: 650 mg Amiodarone HCl (Cordarone -) 200 mg PEG DAILY [facility] Last Admin: 10/12/17 09:12 Dose: 200 mg Ferrous Sulfate (Feosol -) 325 mg PO DAILY [facility] Last Admin: 10/12/17 09:12 Dose: 325 mg Folic Acid (Folic Acid -) 1 mg PO DAILY [facility] Last Admin: 10/12/17 09:13 Dose: 1 mg Hydromorphone HCl (Dilaudid Injection -) 1 mg IVPUSH Q4H PRN PRN Reason: PAIN Last Admin: 10/13/17 03:04 Dose: 1 mg Famotidine/Sodium Chloride (Pepcid 20 Mg Premixed Ivpb -) 20 mg in 50 mls @ 100 mls/hr IVPB BID [facility] Last Admin: 10/12/17 21:29 Dose: 100 mls/hr Fentanyl 500 mcg/ Dextrose 100 mls @ 5 mls/hr IVPB TITR [facility]; 25 MCG/HR PRN Reason: Protocol Last Admin: 10/13/17 07:36 Dose: 25 mcg/hr, 5 mls/hr Metoprolol Tartrate (Lopressor Injection -) 5 mg IVPUSH Q6H PRN PRN Reason: HYPERTENSION Last Admin: 10/11/17 13:03 Dose: 5 mg Metoprolol Tartrate (Lopressor -) 50 mg PEG TID [facility] Last Admin: 10/13/17 06:12 Dose: 50 mg Multivitamins/Minerals (Theragran-M) 1 each PO DAILY [facility] Last Admin: 10/12/17 09:12 Dose: 1 each Mupirocin (Bactroban 2% Cream -) 1 applic TP BID [facility] Last Admin: 10/12/17 21:30 Dose: 1 applic Nystatin (Mycostatin Cream -) 1 applic TP Q6HPO [facility] Last Admin: 10/13/17 06:12 Dose: 1 applic Quetiapine Fumarate (Seroquel -) 25 mg PEG DAILY [facility] Last Admin: 10/13/17 00:08 Dose: Not Given Sevelamer Carbonate (Renvela Powder Packet -) 0.8 gm PEG TIDCM [facility] Last Admin: 10/13/17 07:42 Dose: 0.8 gm Thiamine HCl (Vitamin B1 -) 100 mg PO DAILY [facility] Last Admin: 10/12/17 09:13 Dose: 100 mg Gen: awake, vented Heart: tachycardic, irregular Lung: scattered rhonchi Abd: soft, nontender Ext: no edema Laboratory Results - last 24 hr 10/09/17 10/10/17 10/11/17 19:03 06:12 06:09 WBC RBC Hgb Hct MCV MCH MCHC RDW Plt Count MPV Manual Slide Review Sodium Potassium Chloride Carbon Dioxide Anion Gap BUN Creatinine Creat Clearance w eGFR POC Glucometer 103.09695 95.34088 129.77821 Random Glucose Calcium Magnesium Total Bilirubin AST ALT Alkaline Phosphatase Total Protein Albumin Random Vancomycin 10/11/17 10/12/17 10/13/17 17:41 17:06 05:20 WBC RBC Hgb Hct MCV MCH MCHC RDW Plt Count MPV Manual Slide Review Sodium Potassium Chloride Carbon Dioxide Anion Gap BUN Creatinine Creat Clearance w eGFR POC Glucometer 118.13153 137.14631 Random Glucose Calcium Magnesium Total Bilirubin AST ALT Alkaline Phosphatase Total Protein Albumin Random Vancomycin 24.766 10/13/17 10/13/17 10/13/17 05:20 05:20 07:22 WBC 12.3 H RBC 2.53 L Hgb 7.3 L Hct 21.7 L MCV 85.7 MCH 28.7 MCHC 33.5 RDW 16.9 H Plt Count 296 MPV 6.6 L Manual Slide Review No Result Required. Sodium 140 Potassium 3.6 Chloride 110 H Carbon Dioxide 19 L Anion Gap 11 BUN 73 H Creatinine 3.2 H Creat Clearance w eGFR 19.41 POC Glucometer 129.31908 Random Glucose 108 H Calcium 8.1 L Magnesium 2.0 Total Bilirubin 1.4 H D AST 69 H D ALT 26 D Alkaline Phosphatase 735 H D Total Protein 7.3 Albumin 1.7 L Random Vancomycin ASSESSMENT AND PLAN: Acute Hypoxic Respiratory Failure Pneumonia MSSA Bacteremia Loculated Pleural Effusions LV Diastolic Dysfunction Paroxysmal Atrial Fibrillation Acute Kidney Injury GI Bleed Acute Blood Loss Anemia Cellulitis - ABX per ID - Monitor H/H - Transfuse as needed - protonix - O2 to keep SpO2 >90% - enteral feeds - spontaneous breathing trials as tolerated - DVT/GI prophylaxis - continue ICU monitoring - consider LTAC placement Dr Griffin critical care time spent in reviewing chart, evaluating patient and formulating plan 35 min
[2017-10-13] MEDS: THIAMINE HCL 100 MG TABLET (FP) PO SCH (10:13)
[2017-10-13] MEDS: AMIODARONE HCL 200 MG TABLET (FP) PEG SCH (10:13)
[2017-10-13] MEDS: MULTIVITAMINS THER W-MINERALS COMBO TABLET (FP) PO SCH (10:13)
[2017-10-13] MEDS: FAMOTIDINE 20 MG/50 ML IVPB 20 MG/50 ML MG IVPB SCH ×2 (10:14→21:23)
[2017-10-13] MEDS: FERROUS SO4 325 MG TABLET (FP) PO SCH (10:14)
[2017-10-13] MEDS: FOLIC ACID 1 MG TABLET (FP) PO SCH (10:17)
[2017-10-13] MEDS: MUPIROCIN CA 2% TOPICAL CREAM 15 GM TUBE TP SCH (10:18)
--- NOTE | 2017-10-13 10:26 | PN ---
Progress Note, Physician Chief Complaint: Remains in ICU and remains on mechanical ventilator via trache. Awake Heart rate improved History of Present Illness: Patient was seen and examined in ICU. Remains on mechanical ventilation. Chart was reviewed On Fentanyl Heart rate improved and rate controlled - Current Medication List Current Medications: Active Medications Acetaminophen (Tylenol -) 650 mg PO Q6H PRN PRN Reason: FEVER OR PAIN Last Admin: 10/12/17 21:29 Dose: 650 mg Amiodarone HCl (Cordarone -) 200 mg PEG DAILY [facility] Last Admin: 10/13/17 10:13 Dose: 200 mg Ferrous Sulfate (Feosol -) 325 mg PO DAILY [facility] Last Admin: 10/13/17 10:14 Dose: 325 mg Folic Acid (Folic Acid -) 1 mg PO DAILY [facility] Last Admin: 10/13/17 10:17 Dose: 1 mg Hydromorphone HCl (Dilaudid Injection -) 1 mg IVPUSH Q4H PRN PRN Reason: PAIN Last Admin: 10/13/17 03:04 Dose: 1 mg Famotidine/Sodium Chloride (Pepcid 20 Mg Premixed Ivpb -) 20 mg in 50 mls @ 100 mls/hr IVPB BID [facility] Last Admin: 10/13/17 10:14 Dose: 100 mls/hr Fentanyl 500 mcg/ Dextrose 100 mls @ 5 mls/hr IVPB TITR [facility]; 25 MCG/HR PRN Reason: Protocol Last Admin: 10/13/17 07:36 Dose: 25 mcg/hr, 5 mls/hr Metoprolol Tartrate (Lopressor Injection -) 5 mg IVPUSH Q6H PRN PRN Reason: HYPERTENSION Last Admin: 10/11/17 13:03 Dose: 5 mg Metoprolol Tartrate (Lopressor -) 50 mg PEG TID [facility] Last Admin: 10/13/17 06:12 Dose: 50 mg Multivitamins/Minerals (Theragran-M) 1 each PO DAILY [facility] Last Admin: 10/13/17 10:13 Dose: 1 each Mupirocin (Bactroban 2% Cream -) 1 applic TP BID [facility] Last Admin: 10/13/17 10:18 Dose: 1 applic Nystatin (Mycostatin Cream -) 1 applic TP Q6HPO [facility] Last Admin: 10/13/17 06:12 Dose: 1 applic Quetiapine Fumarate (Seroquel -) 25 mg PEG DAILY [facility] Last Admin: 10/13/17 10:14 Dose: 25 mg Sevelamer Carbonate (Renvela Powder Packet -) 0.8 gm PEG TIDCM [facility] Last Admin: 10/13/17 07:42 Dose: 0.8 gm Thiamine HCl (Vitamin B1 -) 100 mg PO DAILY [facility] Last Admin: 10/13/17 10:13 Dose: 100 mg - Objective Vital Signs: Vital Signs Temperature 99.6 F 10/13/17 06:00 Pulse Rate 91 H 10/13/17 06:00 Respiratory Rate 18 10/13/17 09:30 Blood Pressure 140/81 10/13/17 06:00 O2 Sat by Pulse Oximetry (%) 90 L 10/13/17 08:51 HENT: Yes: Atraumatic Neck: Yes: Supple Cardiovascular: Yes: Regular Rate and Rhythm, Murmur (Soft SM), S1, S2 Respiratory: Yes: Diminished, Mechanically Ventilated, Rhonchi Gastrointestinal: Yes: Normal Bowel Sounds, Soft. No: Tenderness Edema: Yes Edema: LLE: Trace, RLE: Trace Labs: CBC, BMP 10/13/17 05:20 10/13/17 05:20 Problem List - Problems (1) Abuse, drug or alcohol Code(s): F19.10 - OTHER PSYCHOACTIVE SUBSTANCE ABUSE, UNCOMPLICATED (2) Respiratory failure with hypoxia Code(s): J96.91 - RESPIRATORY FAILURE, UNSPECIFIED WITH HYPOXIA Qualifiers: Chronicity: acute Qualified Code(s): J96.01 - Acute respiratory failure with hypoxia (3) Pneumonia Code(s): J18.9 - PNEUMONIA, UNSPECIFIED ORGANISM Qualifiers: Pneumonia type: aspiration pneumonia (5) History of alcohol abuse Code(s): Z87.898 - PERSONAL HISTORY OF OTHER SPECIFIED CONDITIONS (6) Acute diastolic heart failure Code(s): I50.31 - ACUTE DIASTOLIC (CONGESTIVE) HEART FAILURE (7) Anemia Code(s): D64.9 - ANEMIA, UNSPECIFIED Qualifiers: Anemia type: unspecified type Qualified Code(s): D64.9 - Anemia, unspecified Assessment/Plan 1. Paroxysmal atrial fibrillation [id number] score of 2 - off Eliquis 2. Acute hypoxic respiratory failure, post re-intubated, pulmonary infiltrates/ pulmonary edema improving - remains of mechanical ventilation via trache 3. Cavitating pneumonia, MSSA bacteremia, post septic shock no evidence of endocarditis by ALISA criteria 4. Diastolic LV dysfunction with class I-II NYHA congestive heart failure, volume overload, resolved 5. 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 Loculated effusion post chest tube insertion 7. History of alcohol dependence 8. Acute renal insufficiency 9. Hypernatremia 10. Anemia 11. Abnormal LFT due to above history of ETOH PLAN: 1. Vent support 2. Continue beta amairani - increased Lopressor dose via PEG - heart rate improved 3. Continue Amiodarone via PEG 4. Antibiotics as per ID service 5. Ideally needs to be on anticoagulation if not contraindicated 6. Monitor renal function and LFT Further plans are to follow Jordon Gtz MD
--- NOTE | 2017-10-13 11:45 | PN ---
Progress Note, Physician History of Present Illness: Awake, alert on vent S/P tracheostomy Low grade temp WBC improved Vancomycin T 24 - Current Medication List Current Medications: Active Medications Acetaminophen (Tylenol -) 650 mg PO Q6H PRN PRN Reason: FEVER OR PAIN Last Admin: 10/12/17 21:29 Dose: 650 mg Amiodarone HCl (Cordarone -) 200 mg PEG DAILY [facility] Last Admin: 10/13/17 10:13 Dose: 200 mg Ferrous Sulfate (Feosol -) 325 mg PO DAILY [facility] Last Admin: 10/13/17 10:14 Dose: 325 mg Folic Acid (Folic Acid -) 1 mg PO DAILY [facility] Last Admin: 10/13/17 10:17 Dose: 1 mg Hydromorphone HCl (Dilaudid Injection -) 1 mg IVPUSH Q4H PRN PRN Reason: PAIN Last Admin: 10/13/17 03:04 Dose: 1 mg Famotidine/Sodium Chloride (Pepcid 20 Mg Premixed Ivpb -) 20 mg in 50 mls @ 100 mls/hr IVPB BID [facility] Last Admin: 10/13/17 10:14 Dose: 100 mls/hr Fentanyl 500 mcg/ Dextrose 100 mls @ 5 mls/hr IVPB TITR [facility]; 25 MCG/HR PRN Reason: Protocol Last Admin: 10/13/17 07:36 Dose: 25 mcg/hr, 5 mls/hr Metoprolol Tartrate (Lopressor Injection -) 5 mg IVPUSH Q6H PRN PRN Reason: HYPERTENSION Last Admin: 10/11/17 13:03 Dose: 5 mg Metoprolol Tartrate (Lopressor -) 50 mg PEG TID [facility] Last Admin: 10/13/17 06:12 Dose: 50 mg Multivitamins/Minerals (Theragran-M) 1 each PO DAILY [facility] Last Admin: 10/13/17 10:13 Dose: 1 each Mupirocin (Bactroban 2% Cream -) 1 applic TP BID [facility] Last Admin: 10/13/17 10:18 Dose: 1 applic Nystatin (Mycostatin Cream -) 1 applic TP Q6HPO [facility] Last Admin: 10/13/17 06:12 Dose: 1 applic Quetiapine Fumarate (Seroquel -) 25 mg PEG DAILY [facility] Last Admin: 10/13/17 10:14 Dose: 25 mg Sevelamer Carbonate (Renvela Powder Packet -) 0.8 gm PEG TIDCM [facility] Last Admin: 10/13/17 07:42 Dose: 0.8 gm Thiamine HCl (Vitamin B1 -) 100 mg PO DAILY [facility] Last Admin: 10/13/17 10:13 Dose: 100 mg - Objective Vital Signs: Vital Signs Temperature 98.5 F 10/13/17 10:57 Pulse Rate 87 10/13/17 10:57 Respiratory Rate 16 10/13/17 10:57 Blood Pressure 145/93 10/13/17 10:57 O2 Sat by Pulse Oximetry (%) 90 L 10/13/17 08:51 Constitutional: Yes: No Distress Cardiovascular: Yes: Regular Rate and Rhythm, S1, S2 Respiratory: Yes: Mechanically Ventilated Gastrointestinal: Yes: Normal Bowel Sounds, Soft. No: Tenderness Edema: Yes Labs: CBC, BMP 10/13/17 05:20 10/13/17 05:20 INR, PTT INR 1.14 (0.82-1.09) D 10/03/17 05:22 Assessment/Plan MSSA bacteremia Vertebral osteo T9T10 Resp failure S/P trach Possible aspiration pneumonia Hx ETOH abuse Azotemia ? AIN secondary to B-lactam Continue vancomycin for now, adjusted for renal failure No dose today. Check trough am
[2017-10-13] MEDS ORDERED: PT OWN MED DRAWER 7, Y5N ONE ×2 (12:10→17:08)
--- NOTE | 2017-10-13 14:12 | PN ---
Progress Note, Physician History of Present Illness: Pt seen and examined at bedside. He is awake. He remains in ICU. - Current Medication List Current Medications: Active Medications Acetaminophen (Tylenol -) 650 mg PO Q6H PRN PRN Reason: FEVER OR PAIN Last Admin: 10/12/17 21:29 Dose: 650 mg Amiodarone HCl (Cordarone -) 200 mg PEG DAILY [facility] Last Admin: 10/13/17 10:13 Dose: 200 mg Ferrous Sulfate (Feosol -) 325 mg PO DAILY [facility] Last Admin: 10/13/17 10:14 Dose: 325 mg Folic Acid (Folic Acid -) 1 mg PO DAILY [facility] Last Admin: 10/13/17 10:17 Dose: 1 mg Hydromorphone HCl (Dilaudid Injection -) 1 mg IVPUSH Q4H PRN PRN Reason: PAIN Last Admin: 10/13/17 03:04 Dose: 1 mg Famotidine/Sodium Chloride (Pepcid 20 Mg Premixed Ivpb -) 20 mg in 50 mls @ 100 mls/hr IVPB BID [facility] Last Admin: 10/13/17 10:14 Dose: 100 mls/hr Fentanyl 500 mcg/ Dextrose 100 mls @ 5 mls/hr IVPB TITR [facility]; 25 MCG/HR PRN Reason: Protocol Last Admin: 10/13/17 07:36 Dose: 25 mcg/hr, 5 mls/hr Metoprolol Tartrate (Lopressor Injection -) 5 mg IVPUSH Q6H PRN PRN Reason: HYPERTENSION Last Admin: 10/11/17 13:03 Dose: 5 mg Metoprolol Tartrate (Lopressor -) 50 mg PEG TID [facility] Last Admin: 10/13/17 06:12 Dose: 50 mg Multivitamins/Minerals (Theragran-M) 1 each PO DAILY [facility] Last Admin: 10/13/17 10:13 Dose: 1 each Mupirocin (Bactroban 2% Cream -) 1 applic TP BID [facility] Last Admin: 10/13/17 10:18 Dose: 1 applic Nystatin (Mycostatin Cream -) 1 applic TP Q6HPO [facility] Last Admin: 10/13/17 12:12 Dose: 1 applic Quetiapine Fumarate (Seroquel -) 25 mg PEG DAILY [facility] Last Admin: 10/13/17 10:14 Dose: 25 mg Sevelamer Carbonate (Renvela Powder Packet -) 0.8 gm PEG TIDCM [facility] Last Admin: 10/13/17 12:12 Dose: 0.8 gm Thiamine HCl (Vitamin B1 -) 100 mg PO DAILY [facility] Last Admin: 10/13/17 10:13 Dose: 100 mg - Objective Vital Signs: Vital Signs Temperature 99.6 F 10/13/17 14:04 Pulse Rate 95 H 10/13/17 14:04 Respiratory Rate 16 10/13/17 14:04 Blood Pressure 156/91 10/13/17 14:04 O2 Sat by Pulse Oximetry (%) 99 10/13/17 09:00 Constitutional: Yes: Calm Eyes: Yes: Conjunctiva Clear HENT: Yes: Atraumatic Neck: Yes: Other (trache) Cardiovascular: Yes: S1, S2 Respiratory: Yes: Mechanically Ventilated Gastrointestinal: Yes: Soft, Other (peg) Genitourinary: Yes: Incontinence Musculoskeletal: Yes: Muscle Weakness Edema: Yes Edema: LUE: Trace, RUE: Trace, LLE: Trace, RLE: Trace Neurological: Yes: Other (awake) Labs: CBC, BMP 10/13/17 05:20 10/13/17 05:20 INR, PTT INR 1.14 (0.82-1.09) D 10/03/17 05:22 Problem List - Problems (1) Abuse, drug or alcohol Code(s): F19.10 - OTHER PSYCHOACTIVE SUBSTANCE ABUSE, UNCOMPLICATED (2) Withdrawal symptoms, alcohol Code(s): F10.239 - ALCOHOL DEPENDENCE WITH WITHDRAWAL, UNSPECIFIED Qualifiers: Complication of substance-induced condition: uncomplicated Qualified Code(s ): F10.230 - Alcohol dependence with withdrawal, uncomplicated (3) Hyponatremia Code(s): E87.1 - HYPO-OSMOLALITY AND HYPONATREMIA (4) Respiratory failure with hypoxia Code(s): J96.91 - RESPIRATORY FAILURE, UNSPECIFIED WITH HYPOXIA Qualifiers: Chronicity: acute Qualified Code(s): J96.01 - Acute respiratory failure with hypoxia (5) Staphylococcus aureus bacteremia Code(s): R78.81 - BACTEREMIA (6) Acute kidney injury Code(s): N17.9 - ACUTE KIDNEY FAILURE, UNSPECIFIED (7) Anemia Code(s): D64.9 - ANEMIA, UNSPECIFIED Qualifiers: Anemia type: unspecified type Qualified Code(s): D64.9 - Anemia, unspecified Assessment/Plan Current Medications Generic Name Dose Route Start Last Admin Trade Name Freq PRN Reason Stop Dose Admin Acetaminophen 650 mg 10/09/17 05:31 10/12/17 21:29 Tylenol - PO 650 mg Q6H PRN Administration FEVER OR PAIN Amiodarone HCl 200 mg 10/04/17 16:45 10/13/17 10:13 Cordarone - PEG 200 mg DAILY [facility] Administration Ferrous Sulfate 325 mg 09/05/17 12:00 10/13/17 10:14 Feosol - PO 325 mg DAILY [facility] Administration Folic Acid 1 mg 09/02/17 10:00 10/13/17 10:17 Folic Acid - PO 1 mg DAILY [facility] Administration Hydromorphone HCl 1 mg 10/12/17 10:08 10/13/17 03:04 Dilaudid Injection - IVPUSH 1 mg Q4H PRN Administration PAIN Famotidine/Sodium Chloride 20 mg in 50 mls @ 100 mls/hr 09/28/17 10:00 10:14 Pepcid 20 Mg Premixed Ivpb - IVPB 100 mls/hr BID [facility] Administration Fentanyl 500 mcg/ Dextrose 100 mls @ 5 mls/hr 10/08/17 22:15 10/13/17 07:36 IVPB 25 mcg/hr TITR [facility] 5 mls/hr Protocol Administration 25 MCG/HR Metoprolol Tartrate 5 mg 10/02/17 16:47 10/11/17 13:03 Lopressor Injection - IVPUSH 5 mg Q6H PRN Administration HYPERTENSION Metoprolol Tartrate 50 mg 10/11/17 22:00 10/13/17 06:12 Lopressor - PEG 50 mg TID [facility] Administration Multivitamins/Minerals 1 each 09/02/17 10:00 10/13/17 10:13 Theragran-M PO 1 each DAILY [facility] Administration Mupirocin 1 applic 09/23/17 10:00 10/13/17 10:18 Bactroban 2% Cream - TP 1 applic BID [facility] Administration Nystatin 1 applic 10/12/17 11:30 10/13/17 12:12 Mycostatin Cream - TP 1 applic Q6HPO [facility] Administration Quetiapine Fumarate 25 mg 10/13/17 00:15 10/13/17 10:14 Seroquel - PEG 25 mg DAILY [facility] Administration Sevelamer Carbonate 0.8 gm 10/05/17 08:16 10/13/17 12:12 Renvela Powder Packet - PEG 0.8 gm TIDCM [facility] Administration Thiamine HCl 100 mg 09/02/17 10:00 10/13/17 10:13 Vitamin B1 - PO 100 mg DAILY [facility] Administration Laboratory Tests 09/13/17 10/08/17 10/13/17 11:39 06:00 05:20 Creatinine 3.6 H Magnesium 2.0 Urine Eosinophils None seen Impression 1. ALEXANDRA 2. fluid overload 3. hypoalbuminemia 4. respiratory failure requiring intubation 5. anemia 6. etoh abuse 7. fevers 8. hypokalemia 9. pleural effusion 10. hypernatremia 11. GI bleed 12. rash Plan - creatinine is improving - repeat labs in am - upper ext edema is improved - will evaluate for lasix in am - get cxr in am - vent support/pulmonary rehab - ALEXANDRA is multifactorial - will follow Dr Peres
--- NOTE | 2017-10-13 16:38 | PN ---
Teaching Attending Note Name of Resident: . Time of evaluation: 9:10 AM SUBJECTIVE: patient seen and examined, awake, comprehends conversation, able to follow simple commands. Denies pain. otherwise limited ROS. OBJECTIVE: Vital Signs Period Temp Pulse Resp BP Sys/Jeff Pulse Ox Last 24 Hr 98.5 F-100.4 F 14-95 16-24 115-159/71-93 90-99 Intake & Output 10/10/17 10/11/17 10/12/17 10/13/17 23:59 23:59 23:59 23:59 Intake Total 1050 2040 2600 1130 Balance 1050 2040 2600 1130 Weight 186 lb 3.2 oz 186 lb 12.8 oz 188 lb 2 oz 186 lb 4.65 oz General; Lying in bed, trach.PEG, mittens, calmer than yesterday but still restless CVS:S1S2 regular Chest: occasional rhonchi Abdomen: soft, obese, NT extremitie; improving edema and RLE lesions Home Medication List Medication Instructions Recorded Confirmed Type Unobtainable [Unobtainable] 08/31/17 08/31/17 History Active Medications Generic Name Dose Route Start Last Admin Trade Name Freq PRN Reason Stop Dose Admin Acetaminophen 650 mg 10/09/17 05:31 10/12/17 21:29 Tylenol - PO 650 mg Q6H PRN Administration FEVER OR PAIN Amiodarone HCl 200 mg 10/04/17 16:45 10/13/17 10:13 Cordarone - PEG 200 mg DAILY KINGS Administration Ferrous Sulfate 325 mg 09/05/17 12:00 10/13/17 10:14 Feosol - PO 325 mg DAILY KINGS Administration Folic Acid 1 mg 09/02/17 10:00 10/13/17 10:17 Folic Acid - PO 1 mg DAILY KINGS Administration Hydromorphone HCl 1 mg 10/12/17 10:08 10/13/17 03:04 Dilaudid Injection - IVPUSH 1 mg Q4H PRN Administration PAIN Famotidine/Sodium Chloride 20 mg in 50 mls @ 100 mls/hr 09/28/17 10:00 10:14 Pepcid 20 Mg Premixed Ivpb - IVPB 100 mls/hr BID KINGS Administration Fentanyl 500 mcg/ Dextrose 100 mls @ 5 mls/hr 10/08/17 22:15 10/13/17 07:36 IVPB 25 mcg/hr TITR KINGS 5 mls/hr Protocol Administration 25 MCG/HR Metoprolol Tartrate 5 mg 10/02/17 16:47 10/11/17 13:03 Lopressor Injection - IVPUSH 5 mg Q6H PRN Administration HYPERTENSION Metoprolol Tartrate 50 mg 10/11/17 22:00 10/13/17 15:13 Lopressor - PEG 50 mg TID KINGS Administration Multivitamins/Minerals 1 each 09/02/17 10:00 10/13/17 10:13 Theragran-M PO 1 each DAILY KINGS Administration Mupirocin 1 applic 09/23/17 10:00 10/13/17 10:18 Bactroban 2% Cream - TP 1 applic BID KINGS Administration Nystatin 1 applic 10/12/17 11:30 10/13/17 12:12 Mycostatin Cream - TP 1 applic Q6HPO KINGS Administration Quetiapine Fumarate 25 mg 10/13/17 00:15 10/13/17 10:14 Seroquel - PEG 25 mg DAILY KINGS Administration Sevelamer Carbonate 0.8 gm 10/05/17 08:16 10/13/17 12:12 Renvela Powder Packet - PEG 0.8 gm TIDCM KINGS Administration Thiamine HCl 100 mg 09/02/17 10:00 10/13/17 10:13 Vitamin B1 - PO 100 mg DAILY KINGS Administration Laboratory Results - last 24 hr 10/09/17 10/10/17 10/10/17 19:03 06:12 08:25 WBC RBC Hgb Hct MCV MCH MCHC RDW Plt Count MPV Manual Slide Review Sodium Potassium Chloride Carbon Dioxide Anion Gap BUN Creatinine Creat Clearance w eGFR POC Glucometer 103.55618 95.71702 Random Glucose Calcium Magnesium Total Bilirubin AST ALT Alkaline Phosphatase Total Protein Albumin Random Vancomycin Blood Type O NEGATIVE Antibody Screen Negative Crossmatch See Detail 10/11/17 10/11/17 10/12/17 06:09 17:41 17:06 WBC RBC Hgb Hct MCV MCH MCHC RDW Plt Count MPV Manual Slide Review Sodium Potassium Chloride Carbon Dioxide Anion Gap BUN Creatinine Creat Clearance w eGFR POC Glucometer 129.49301 118.13889 137.08459 Random Glucose Calcium Magnesium Total Bilirubin AST ALT Alkaline Phosphatase Total Protein Albumin Random Vancomycin Blood Type Antibody Screen Crossmatch 10/13/17 10/13/17 10/13/17 05:20 05:20 05:20 WBC 12.3 H RBC 2.53 L Hgb 7.3 L Hct 21.7 L MCV 85.7 MCH 28.7 MCHC 33.5 RDW 16.9 H Plt Count 296 MPV 6.6 L Manual Slide Review No Result Required. Sodium 140 Potassium 3.6 Chloride 110 H Carbon Dioxide 19 L Anion Gap 11 BUN 73 H Creatinine 3.2 H Creat Clearance w eGFR 19.41 POC Glucometer Random Glucose 108 H Calcium 8.1 L Magnesium 2.0 Total Bilirubin 1.4 H D AST 69 H D ALT 26 D Alkaline Phosphatase 735 H D Total Protein 7.3 Albumin 1.7 L Random Vancomycin 24.766 Blood Type Antibody Screen Crossmatch 10/13/17 07:22 WBC RBC Hgb Hct MCV MCH MCHC RDW Plt Count MPV Manual Slide Review Sodium Potassium Chloride Carbon Dioxide Anion Gap BUN Creatinine Creat Clearance w eGFR POC Glucometer 129.98946 Random Glucose Calcium Magnesium Total Bilirubin AST ALT Alkaline Phosphatase Total Protein Albumin Random Vancomycin Blood Type Antibody Screen Crossmatch Microbiology 10/10/17 08:45 Sputum - Endotrachea Suction/Ventilator Gram Stain - Final 10/10/17 08:45 Sputum - Endotrachea Suction/Ventilator Sputum Culture - Final NORMAL RESPIRATORY HERBER 10/08/17 09:10 Blood - Peripheral Venous Blood Culture - Final NO GROWTH AFTER 5 DAYS INCUBATION 10/08/17 09:15 Blood - Peripheral Venous Blood Culture - Final NO GROWTH AFTER 5 DAYS INCUBATION ASSESSMENT AND PLAN: -Acute hypoxic respiratory failure -Severe sepsis due to cavitary PNA, MSSA bacteremia, ALISA neg for vegetation -Large right loculated pleural effusion, s/p chest tube, removed now -Aspiration risk -Acute T9-T10 discitis/osteomyelitis -Hematochezia, resolved -ARF, from sepsis related ATN vs medication related, ?AIN -Acute on chronic anemia, suspect from renal dysfunction, compounded by blood loss earlier from hematochezia -AFib with RVR recurrent -Rash, ?medication induced , monitor for now. -Hypokalemia/hypomagnesemia -Hyperphosphatemia -Hypovolumic hypernatremia -Alcohol abuse -Normocytic anemia, now acute blood loss anemia from trach (suctioned blood and clots from trach 10/09) -Acute transaminitis -Chronic right subdural hematoma -Thrombocytopenia Secondary to alcohol, splenomegaly. now stable -Chronic right subdural hematoma Plan: s/p extubated 09/19 and re-intubated and extubated 09/27. re-intubated 10/01. due to tachypnea and hypoxia. full vent support. s/p trach 10/09. Tapering off fentanyl as tolerated. No further fevers, improved WBC, continue trach suction, sputum cultures, repeat cultures sent, u/a, CXR noted, ID input appreciated, WBC trending down, Aztreonam d/diandra today. Chest tube removed. on vanco by level. will need 6-8w abx for OM. CT surgery and ID on board back in sinus rhythm, Amiodarine and lopressor via PEG. should ideally be on coumadin once improved. Increased lopressor, received cardizem overnight. Renal function slowly improving, ?Diuretic phase of ATN, continue to monitor, renal dosing of meds. s/p 9 units PRBC this admission. Recurrent anemia from blood loss as above from trach site with suctioning of clots, stable post transfusion. Free water flushes prn and follow up Na level. s/p PEG placement, continue feeds US shows hepatosplenomegaly and fatty infiltration of liver Continue thiamine, folic acid, multivitamin DVT prophylaxis- heparin sq MICU monitoring. poor overall prognosis. pt will likely benefit from LTAC facility. The care of this patient involved high complexity decision making to prevent further life threatening deterioration of the patient's condition and/or to evaluate & treat vital organ system(s) failure or risk of failure. 35 mins
[2017-10-13] MEDS: METOPROLOL TARTRATE 5 MG/5 ML VIAL IVPUSH PRN (18:19)
[2017-10-13] MEDS: ACETAMINOPHEN 325 MG TABLET (FP) PO PRN (20:11)
[2017-10-13] MEDS ORDERED: QUEtiapine FUMARATE 25 MG TABLET (FP) PO ONE (20:45)
[2017-10-14] MEDS: HYDROmorphone HCL CARPU-JECT 2 MG/1 ML DISP.SYRIN IVPUSH PRN ×5 (00:02→21:41)
[2017-10-14] MEDS: NYSTATIN 100,000 UNIT/GM TOPICAL CREAM 15 GM TUBE TP SCH ×4 (00:03→17:37)
[2017-10-14] MEDS: FENTANYL INJECTION 500 MCG in DEXTROSE 5%-WATER - 90 ML IVPB SCH ×2 (00:03→08:00)
[2017-10-14] MEDS ORDERED: fentaNYL CITRATE 250 MCG/5 ML VIAL ONE (04:14)
[2017-10-14] MEDS: METOPROLOL TARTRATE 50 MG TABLET (FP) PEG SCH ×3 (05:11→21:39)
[2017-10-14 06:33] LABS: MCHC 33.7 g/dl (32.0-35.9); MEAN CELL VOLUME 86.2 fl (80-96); MEAN PLT VOLUME 6.6 fl (7.5-11.1); PLATELET COUNT 303 K/MM3 (134-434); RDW 17.1 % (11.9-15.9); WHITE BLOOD COUNT 11.7 K/mm3 (4.0-10.0)
[2017-10-14 06:52] LABS: ALBUMIN 1.8 g/dl (3.4-5.0); ANION GAP 13 (8-16); CALCIUM 8.5 mg/dL (8.5-10.1); CO2 21 mmol/L (21-32); GLUCOSE,RANDOM 108 mg/dL (74-106); SGOT/AST 62 U/L (15-37); SGPT/ALT 30 U/L (12-78)
[2017-10-14 06:55] LABS: ALK PHOS 880 U/L (45-117); BILIRUBIN,TOTAL 0.6 mg/dL (0.2-1.0); TOT PROT 7.2 g/dl (6.4-8.2)
[2017-10-14] MEDS ORDERED: PT OWN MED DRAWER 7, Y5N ONE ×2 (07:55→16:18)
[2017-10-14] MEDS ORDERED: KCL 10 MEQ IVPB 10 MEQ/100 ML INFUS.BAG IVPB SCH ×2 (08:00→16:00)
[2017-10-14] MEDS: SEVELAMER CARBONATE 0.8 GM POWDER PACKET PEG SCH ×3 (08:02→17:02)
[2017-10-14] MEDS ORDERED: POTASSIUM CHLORIDE 20 MEQ in SODIUM CHLORIDE 250 ML IVPB SCH (08:30)
--- NOTE | 2017-10-14 08:35 | PN ---
Physical Exam: SUBJECTIVE: Patient seen and examined at bedside. Patient is much more awake than when examined previously. He is unable to speak, but mouths words and can understand conversation. He states that he is thirsty but otherwise denies any current complaints. OBJECTIVE: Vital Signs Period Temp Pulse Resp BP Sys/Jeff Pulse Ox Last 24 Hr 98.2 F-100.3 F 14-98 14-28 112-167/69-102 90-99 GENERAL: off sedation, awake and alert and responding to commands ENT: nares patent without signs of bleeding from nose or trach tube LUNGS: patient is trached, mechanical breath sounds, b/l rhonchi noted HEART: regular rate/rhythm, normal S1/S2 ABDOMEN: Soft, ntnd EXTREMITIES: 2+ pulses, 1+ pitting edema Lower>Upper SKIN: No acute abnormalities Laboratory Results - last 24 hr 10/10/17 10/14/17 10/14/17 08:25 05:00 05:00 WBC 11.7 H RBC 2.58 L Hgb 7.5 L Hct 22.3 L MCV 86.2 MCH 29.0 MCHC 33.7 RDW 17.1 H Plt Count 303 MPV 6.6 L Sodium Potassium Chloride Carbon Dioxide Anion Gap BUN Creatinine Creat Clearance w eGFR Random Glucose Calcium Total Bilirubin AST ALT Alkaline Phosphatase Total Protein Albumin Random Vancomycin 19.311 Blood Type O NEGATIVE Antibody Screen Negative Crossmatch See Detail 10/14/17 05:00 WBC RBC Hgb Hct MCV MCH MCHC RDW Plt Count MPV Sodium 143 Potassium 3.2 L Chloride 109 H Carbon Dioxide 21 Anion Gap 13 BUN 68 H Creatinine 3.0 H Creat Clearance w eGFR 20.91 Random Glucose 108 H Calcium 8.5 Total Bilirubin 0.6 D AST 62 H ALT 30 Alkaline Phosphatase 880 H Total Protein 7.2 Albumin 1.8 L Random Vancomycin Blood Type Antibody Screen Crossmatch Active Medications Generic Name Dose Route Start Last Admin Trade Name Freq PRN Reason Stop Dose Admin Acetaminophen 650 mg 10/09/17 05:31 10/13/17 20:11 Tylenol - PO 650 mg Q6H PRN Administration FEVER OR PAIN Amiodarone HCl 200 mg 10/04/17 16:45 10/13/17 10:13 Cordarone - PEG 200 mg DAILY [facility]INGS Administration Ferrous Sulfate 325 mg 09/05/17 12:00 10/13/17 10:14 Feosol - PO 325 mg DAILY KINGS Administration Folic Acid 1 mg 09/02/17 10:00 10/13/17 10:17 Folic Acid - PO 1 mg DAILY KINGS Administration Hydromorphone HCl 1 mg 10/12/17 10:08 10/14/17 04:19 Dilaudid Injection - IVPUSH 1 mg Q4H PRN Administration PAIN Famotidine/Sodium Chloride 20 mg in 50 mls @ 100 mls/hr 09/28/17 10:00 21:23 Pepcid 20 Mg Premixed Ivpb - IVPB 100 mls/hr BID [facility]INGS Administration Fentanyl 500 mcg/ Dextrose 100 mls @ 5 mls/hr 10/08/17 22:15 10/14/17 00:03 IVPB 25 mcg/hr TITR KINGS 5 mls/hr Protocol Administration 25 MCG/HR Potassium Chloride 20 meq/ 260 mls @ 130 mls/hr 10/14/17 08:30 Sodium Chloride IVPB 10/14/17 10:29 ASDIR KINGS Metoprolol Tartrate 5 mg 10/02/17 16:47 10/13/17 18:19 Lopressor Injection - IVPUSH 5 mg Q6H PRN Administration HYPERTENSION Metoprolol Tartrate 50 mg 10/11/17 22:00 10/14/17 05:11 Lopressor - PEG 50 mg TID KINGS Administration Multivitamins/Minerals 1 each 09/02/17 10:00 10/13/17 10:13 Theragran-M PO 1 each DAILY [facility]INGS Administration Nystatin 1 applic 10/12/17 11:30 10/14/17 05:12 Mycostatin Cream - TP 1 applic Q6HPO KINGS Administration Quetiapine Fumarate 25 mg 10/13/17 00:15 10/13/17 10:14 Seroquel - PEG 25 mg DAILY KINGS Administration Sevelamer Carbonate 0.8 gm 10/05/17 08:16 10/14/17 08:02 Renvela Powder Packet - PEG 0.8 gm TIDCM KINGS Administration Thiamine HCl 100 mg 09/02/17 10:00 10/13/17 10:13 Vitamin B1 - PO 100 mg DAILY KINGS Administration ASSESSMENT/PLAN: 66yo man with PMH of EtOH abuse and HTN who is admitted (08/31) for acute hypoxic respiratory failure requiring mechanical ventilation (09/02-09/19, 09/24- , 10/01-). Continues to have cavitary PNA with loculated effusions bilaterally and acute thoracic osteomyletitis (T9-T10), currently on Vancomycin (renally dosed). Renal function improving, and maintaining UOP. s/p PEG and getting tube feeds. Patient is s/p tracheostomy on 10/09. #sepsis 2/2 cavitary PNA, acute osteomyelitis, s/p MSSA bacteremia -ID following, long-term abx needed for acute osteomyelitis (6-8 wks), antibiotics day#37 -Vancomycin 500mg IV will need outpatient every day -patient is s/p tracheostomy with vent management per ICU team -fentanyl sedation tapered to 25mcgs @ 5cc/hr, take off fentanyl and monitor. Take off mittens -s/p 9 transfusions #acute hypoxic respiratory failure -Vent mgmt per ICU team -s/p trach #ARF, Renal following -Ferrous Sulfate 325 mg PEG DAILY and Sevelamer Carbonate (Renvela) 800 mg PEG TID -Strict I&Os, hines, Renal dose for meds -renal function improving #Elevated Alkaline Phosphatase -f/u RUQ ultrasound #Acute blood loss anemia -s/p 8Ux PRBCs, Hgb stable at 7.9 today -Trend H&H, transfuse Hgb<7 #Atrial fibrillation - controlled, patient was tachycardic last night -Cardiology following -metoprolol for control -continue Amiodarone 200mg PEG qd for rate control -hold AC now given co-morbidities (CHADVASC 2) #Chronic Diastolic heart failure -ECHO 09/02/2017 probable preserved LV function, but can't R/O regional wall motion abnormality -increase metoprolol 50mg PEG BID and 5mg IV Q6H PRN #EtOH abuse -No signs of withdrawal -MVI, thiamine 100mg PEG qd, folic acid 1mg PEG daily #FEN -No current standing fluids -Low potassium today, replete electrolytes as necessary -Enteral feeds via PEG with free water flushes #PPX -Heparin 5000U SQ BID -GI - pepcid 20mg IV BID #Dispo: -continue ICU monitoring -FULL code -Still searching for long-term acute rehab Visit type - Emergency Visit Emergency Visit: No - New Patient This patient is new to me today: No - Critical Care Critical Care patient: Yes Total Critical Care Time (in minutes): 30 Critical Care Statement: The care of this patient involved high complexity decision making to prevent further life threatening deterioration of the patient 's condition and/or to evaluate & treat vital organ system(s) failure or risk of failure.
[2017-10-14] MEDS: FOLIC ACID 1 MG TABLET (FP) PO SCH (09:04)
[2017-10-14] MEDS: MULTIVITAMINS THER W-MINERALS COMBO TABLET (FP) PO SCH (09:04)
[2017-10-14] MEDS: THIAMINE HCL 100 MG TABLET (FP) PO SCH (09:04)
[2017-10-14] MEDS: AMIODARONE HCL 200 MG TABLET (FP) PEG SCH (09:05)
[2017-10-14] MEDS: FERROUS SO4 325 MG TABLET (FP) PO SCH (09:05)
[2017-10-14] MEDS: QUEtiapine FUMARATE 25 MG TABLET (FP) PEG SCH ×3 (09:05→21:42)
[2017-10-14] MEDS: FAMOTIDINE 20 MG/50 ML IVPB 20 MG/50 ML MG IVPB SCH ×2 (09:05→21:38)
--- NOTE | 2017-10-14 09:29 | PN ---
Progress Note (short form) - Note Progress Note: ID Day 38 of planned 8 week treatment MSSA bacteremia vertebral osteomyelitis Vent dependent Selected Entries 10/14/17 08:00 Temperature 99.3 F Respiratory 16 Rate Blood Pressure 136/80 O2 Sat by Pulse 100 Oximetry (%) Laboratory Tests 10/14/17 10/14/17 10/14/17 05:00 05:00 05:00 WBC 11.7 H Hgb 7.5 L Hct 22.3 L Plt Count 303 BUN 68 H Creatinine 3.0 H Creat Clearance w eGFR 20.91 Total Bilirubin 0.6 D AST 62 H Alkaline Phosphatase 880 H Random Vancomycin 19.311 Assessment MSSA bacteremia vetebral osteo why the alk phos of 9oo ?? Plan Tomorrow start Vancom 500mg daily This will be easier to dose outpatient [facility] Sonogram liver !! Esau EMERY Problem List - Problems (1) Respiratory failure with hypoxia Code(s): J96.91 - RESPIRATORY FAILURE, UNSPECIFIED WITH HYPOXIA Qualifiers: Chronicity: acute Qualified Code(s): J96.01 - Acute respiratory failure with hypoxia (2) Pneumonia Code(s): J18.9 - PNEUMONIA, UNSPECIFIED ORGANISM Qualifiers: Pneumonia type: aspiration pneumonia (3) Staphylococcus aureus bacteremia Code(s): R78.81 - BACTEREMIA (5) Endocarditis due to Staphylococcus Code(s): I33.0 - ACUTE AND SUBACUTE INFECTIVE ENDOCARDITIS; B95.8 - UNSP STAPHYLOCOCCUS THE CAUSE OF DISEASES CLASSD ELSWHR (6) Discitis of cervicothoracic region Code(s): M46.43 - DISCITIS, UNSPECIFIED, CERVICOTHORACIC REGION
[2017-10-14] MEDS: ACETAMINOPHEN 325 MG TABLET (FP) PO PRN ×2 (12:27→20:35)
--- NOTE | 2017-10-14 12:28 | PN ---
Teaching Attending Note Name of Resident: Vipul Rice ATTENDING PHYSICIAN STATEMENT I saw and evaluated the patient. I reviewed the resident's note and discussed the case with the resident. I agree with the resident's findings and plan as documented. SUBJECTIVE: Patient seen and examined in the ICU. Vented on volume assist control. Awake and interactive. Reports that his pleuritic type CP and discomfort at the Trach site is better. No pressors. OBJECTIVE: Intake & Output 10/11/17 10/12/17 10/13/17 10/14/17 23:59 23:59 23:59 23:59 Intake Total 2040 2600 1630 958 Balance 2040 2600 1630 958 Weight 186 lb 12.8 oz 188 lb 2 oz 186 lb 4.65 oz 182 lb Last Vital Signs Temp Pulse Resp BP Pulse Ox 99.8 F H 94 H 23 157/95 100 10/14/17 12:00 10/14/17 12:00 10/14/17 12:00 10/14/17 12:00 10/14/17 10:10 Active Medications Acetaminophen (Tylenol -) 650 mg PO Q6H PRN PRN Reason: FEVER OR PAIN Last Admin: 10/14/17 12:27 Dose: 650 mg Amiodarone HCl (Cordarone -) 200 mg PEG DAILY COUNT INCLUDES THE [facility] Last Admin: 10/14/17 09:05 Dose: 200 mg Ferrous Sulfate (Feosol -) 325 mg PO DAILY COUNT INCLUDES THE [facility] Last Admin: 10/14/17 09:05 Dose: 325 mg Folic Acid (Folic Acid -) 1 mg PO DAILY COUNT INCLUDES THE [facility] Last Admin: 10/14/17 09:04 Dose: 1 mg Hydromorphone HCl (Dilaudid Injection -) 1 mg IVPUSH Q4H PRN PRN Reason: PAIN Last Admin: 10/14/17 12:26 Dose: 1 mg Famotidine/Sodium Chloride (Pepcid 20 Mg Premixed Ivpb -) 20 mg in 50 mls @ 100 mls/hr IVPB BID KINGS Last Admin: 10/14/17 09:05 Dose: 100 mls/hr Fentanyl 500 mcg/ Dextrose 100 mls @ 5 mls/hr IVPB TITR KINGS; 25 MCG/HR PRN Reason: Protocol Last Admin: 10/14/17 08:00 Dose: 25 mcg/hr, 5 mls/hr Metoprolol Tartrate (Lopressor Injection -) 5 mg IVPUSH Q6H PRN PRN Reason: HYPERTENSION Last Admin: 10/13/17 18:19 Dose: 5 mg Metoprolol Tartrate (Lopressor -) 50 mg PEG TID COUNT INCLUDES THE [facility] Last Admin: 10/14/17 05:11 Dose: 50 mg Multivitamins/Minerals (Theragran-M) 1 each PO DAILY COUNT INCLUDES THE [facility] Last Admin: 10/14/17 09:04 Dose: 1 each Nystatin (Mycostatin Cream -) 1 applic TP Q6HPO COUNT INCLUDES THE [facility] Last Admin: 10/14/17 12:21 Dose: 1 applic Quetiapine Fumarate (Seroquel -) 25 mg PEG DAILY COUNT INCLUDES THE [facility] Last Admin: 10/14/17 09:05 Dose: 25 mg Sevelamer Carbonate (Renvela Powder Packet -) 0.8 gm PEG TIDCM COUNT INCLUDES THE [facility] Last Admin: 10/14/17 12:21 Dose: 0.8 gm Thiamine HCl (Vitamin B1 -) 100 mg PO DAILY COUNT INCLUDES THE [facility] Last Admin: 10/14/17 09:04 Dose: 100 mg Gen: awake, Trach, vented Heart: S1S2, irregular Lung: scattered rhonchi Abd: soft, nontender Ext: no edema Laboratory Results - last 24 hr 10/10/17 10/13/17 10/14/17 08:25 19:06 05:00 WBC RBC Hgb Hct MCV MCH MCHC RDW Plt Count MPV Manual Slide Review Sodium Potassium Chloride Carbon Dioxide Anion Gap BUN Creatinine Creat Clearance w eGFR POC Glucometer 155.32574 Random Glucose Calcium Total Bilirubin AST ALT Alkaline Phosphatase Total Protein Albumin Random Vancomycin 19.311 Blood Type O NEGATIVE Antibody Screen Negative Crossmatch See Detail 10/14/17 10/14/17 05:00 05:00 WBC 11.7 H RBC 2.58 L Hgb 7.5 L Hct 22.3 L MCV 86.2 MCH 29.0 MCHC 33.7 RDW 17.1 H Plt Count 303 MPV 6.6 L Manual Slide Review No Result Required. Sodium 143 Potassium 3.2 L Chloride 109 H Carbon Dioxide 21 Anion Gap 13 BUN 68 H Creatinine 3.0 H Creat Clearance w eGFR 20.91 POC Glucometer Random Glucose 108 H Calcium 8.5 Total Bilirubin 0.6 D AST 62 H ALT 30 Alkaline Phosphatase 880 H Total Protein 7.2 Albumin 1.8 L Random Vancomycin Blood Type Antibody Screen Crossmatch ASSESSMENT AND PLAN: Acute Hypoxic Respiratory Failure Pneumonia MSSA Bacteremia Loculated Pleural Effusions LV Diastolic Dysfunction Paroxysmal Atrial Fibrillation Acute Kidney Injury GI Bleed Acute Blood Loss Anemia Cellulitis - ABX per ID - Normal transfusion thresholds - protonix - O2 to keep SpO2 >90% - enteral feeds - Spontaneous breathing trials as tolerated - DVT/GI prophylaxis - placement Dr Griffin Critical care time spent in reviewing chart, evaluating patient and formulating plan 35 min
--- NOTE | 2017-10-14 12:52 | PN ---
Progress Note, Physician History of Present Illness: Awake on vent for recurrent respiratory failure, post PEG placement, flexible bronch and tracheostomy. - Current Medication List Current Medications: Active Medications Acetaminophen (Tylenol -) 650 mg PO Q6H PRN PRN Reason: FEVER OR PAIN Last Admin: 10/14/17 12:27 Dose: 650 mg Amiodarone HCl (Cordarone -) 200 mg PEG DAILY [facility] Last Admin: 10/14/17 09:05 Dose: 200 mg Ferrous Sulfate (Feosol -) 325 mg PO DAILY [facility] Last Admin: 10/14/17 09:05 Dose: 325 mg Folic Acid (Folic Acid -) 1 mg PO DAILY [facility] Last Admin: 10/14/17 09:04 Dose: 1 mg Hydromorphone HCl (Dilaudid Injection -) 1 mg IVPUSH Q4H PRN PRN Reason: PAIN Last Admin: 10/14/17 12:26 Dose: 1 mg Famotidine/Sodium Chloride (Pepcid 20 Mg Premixed Ivpb -) 20 mg in 50 mls @ 100 mls/hr IVPB BID [facility] Last Admin: 10/14/17 09:05 Dose: 100 mls/hr Fentanyl 500 mcg/ Dextrose 100 mls @ 5 mls/hr IVPB TITR KINGS; 25 MCG/HR PRN Reason: Protocol Last Admin: 10/14/17 08:00 Dose: 25 mcg/hr, 5 mls/hr Metoprolol Tartrate (Lopressor Injection -) 5 mg IVPUSH Q6H PRN PRN Reason: HYPERTENSION Last Admin: 10/13/17 18:19 Dose: 5 mg Metoprolol Tartrate (Lopressor -) 50 mg PEG TID [facility] Last Admin: 10/14/17 05:11 Dose: 50 mg Multivitamins/Minerals (Theragran-M) 1 each PO DAILY [facility] Last Admin: 10/14/17 09:04 Dose: 1 each Nystatin (Mycostatin Cream -) 1 applic TP Q6HPO [facility] Last Admin: 10/14/17 12:21 Dose: 1 applic Quetiapine Fumarate (Seroquel -) 25 mg PEG DAILY [facility] Last Admin: 10/14/17 09:05 Dose: 25 mg Sevelamer Carbonate (Renvela Powder Packet -) 0.8 gm PEG TIDCM [facility] Last Admin: 10/14/17 12:21 Dose: 0.8 gm Thiamine HCl (Vitamin B1 -) 100 mg PO DAILY [facility] Last Admin: 10/14/17 09:04 Dose: 100 mg - Objective Vital Signs: Vital Signs Temperature 99.8 F H 10/14/17 12:00 Pulse Rate 94 H 10/14/17 12:00 Respiratory Rate 23 10/14/17 12:00 Blood Pressure 157/95 10/14/17 12:00 O2 Sat by Pulse Oximetry (%) 100 10/14/17 10:10 Constitutional: Yes: No Distress, Calm Neck: Yes: Supple, Other (Trach) Cardiovascular: Yes: Regular Rate and Rhythm Respiratory: Yes: Diminished, Mechanically Ventilated, Rhonchi Gastrointestinal: Yes: Normal Bowel Sounds, Soft, Other (Peg in place) Edema: No Labs: CBC, BMP 10/14/17 05:00 10/14/17 05:00 INR, PTT INR 1.14 (0.82-1.09) D 10/03/17 05:22 - ....Imaging EKG: Report Reviewed (Tele: SR) Problem List - Problems (1) Respiratory failure with hypoxia Code(s): J96.91 - RESPIRATORY FAILURE, UNSPECIFIED WITH HYPOXIA Qualifiers: Chronicity: acute Qualified Code(s): J96.01 - Acute respiratory failure with hypoxia (2) Pneumonia Code(s): J18.9 - PNEUMONIA, UNSPECIFIED ORGANISM Qualifiers: Pneumonia type: aspiration pneumonia (3) Staphylococcus aureus bacteremia Code(s): R78.81 - BACTEREMIA (5) History of alcohol abuse Code(s): Z87.898 - PERSONAL HISTORY OF OTHER SPECIFIED CONDITIONS (6) Acute kidney injury Code(s): N17.9 - ACUTE KIDNEY FAILURE, UNSPECIFIED (7) Acute diastolic heart failure Code(s): I50.31 - ACUTE DIASTOLIC (CONGESTIVE) HEART FAILURE (8) Anemia Code(s): D64.9 - ANEMIA, UNSPECIFIED Qualifiers: Anemia type: unspecified type Qualified Code(s): D64.9 - Anemia, unspecified (9) Discitis of cervicothoracic region Code(s): M46.43 - DISCITIS, UNSPECIFIED, CERVICOTHORACIC REGION (10) Paroxysmal atrial fibrillation Code(s): I48.0 - PAROXYSMAL ATRIAL FIBRILLATION (11) Rectal ulcer Code(s): K62.6 - ULCER OF ANUS AND RECTUM (12) Status post insertion of percutaneous endoscopic gastrostomy (PEG) tube Code(s): Z93.1 - GASTROSTOMY STATUS (13) Status post tracheostomy Code(s): Z93.0 - TRACHEOSTOMY STATUS (14) Alkaline phosphatase elevation Code(s): R74.8 - ABNORMAL LEVELS OF OTHER SERUM ENZYMES Assessment/Plan 1. Paroxysmal atrial fibrillation [id number] score of 2, currently in sinus rhythm off of Eliquis therapy as outlined above, on Amiodarone therapy 2. Chronic hypoxic respiratory failure s/p trach and PEG 3. Cavitating pneumonia, MSSA bacteremia, post septic shock no evidence of endocarditis by ALISA criteria 4. Diastolic LV dysfunction with class I-II NYHA congestive heart failure, compensated 5. Osteomyelitis T9-T10 discitis 6. Loculated effusion post chest tube insertion 7. History of alcohol dependence 8. Acute renal insufficiency improving 9. Anemia - GI bleed 10. Abnl LFTs - elevated alk phos PLAN: 1. Vent support via tracheostomy, post PEG, enteral feeds with free water repletion, spontaneous breathing trials and PMV as tolerated 2. Continue Lopressor 50 tid with IV Lopressor as needed and Amiodarone 200 qd 3. Antibiotic recs per ID service 4. DVT and GI prophylaxis 5. Transfuse to achieve Hgb>8.0 6. F/U RUQ U/S, replete K, GI f[facility]
--- NOTE | 2017-10-14 13:02 | CONSULT ---
[place] Valve Eval - Assessment Prior to PMV Placement Patient and/or family educated re PMV: Yes Mental Status: Awake, Attempting to Communicate Respiratory Rate: 14 O2 Sat by Pulse Oximetry (%): 100 Secretions: Moderate Amount Patient on Ventilator: Yes Patient on Trach Collar: No Suctioned: Yes Inner Cannula Removed: No Cuff Status: Inflated [place] Valve in Place - Speech Characteristics Able to Phonate with PMV in place: Yes Voice Loudness: Mildly Soft/Quiet Voice Pitch: Normal Voice Phonatory-based Quality: Dysphonia (fair) Speech Clarity: < 50% Nasal Resonance: Normal Articulation: Precise - Assessment with PMV in Place Respiratory Rate: 22 O2 Sat by Pulse Oximetry (%): 100 Change in Mental Status with PMV in Place: No Able to Manage Secretions: Yes Pt's subjective response to PMV: Yes: Restlessness (confused. Impaired insight.) Length of time with PMV in place: 15 min - Recommendations Recommendations: PMV as tolerated, Remove PMV while sleeping, Monitor Pulse Ox PMV on, Supervision while PMV on, Other (Use during patient care for psycho- social purposes, to allow pt to communicate wants and needs, to expedite weaning from ventilator.)
--- NOTE | 2017-10-14 13:52 | PN ---
Physical Exam: SUBJECTIVE: The patient is a 67M with a PMH of EtOH abuse and HTN. The patient has had multiple intubations during his ICU stay and no longer requiring sedation, and is comfortable and trached. The patient has no acute complaints. He is more interactive and responsive. OBJECTIVE: Vital Signs Period Temp Pulse Resp BP Sys/Jeff Pulse Ox Last 24 Hr 98.2 F-100.3 F 69-98 14-28 112-167/69-102 99-100 GENERAL: The patient is awake, alert, and fully oriented, in no acute distress. HEAD: Normal with no signs of trauma. EYES: PERRL, extraocular movements intact, sclera anicteric, conjunctiva clear. No ptosis. NECK: Trachea midline, full range of motion, supple. LUNGS: Breath sounds equal, clear to auscultation bilaterally, no wheezes, no crackles, no accessory muscle use. HEART: Regular rate and rhythm, S1, S2 without murmur, rub or gallop. ABDOMEN: Soft, nontender, nondistended, normoactive bowel sounds, no guarding, no rebound, no hepatosplenomegaly, no masses. EXTREMITIES: 2+ pulses, warm, well-perfused, no edema. NEUROLOGICAL: Cranial nerves II through XII grossly intact. Normal speech, gait not observed. PSYCH: Normal mood, normal affect. SKIN: Warm, dry, normal turgor, no rashes or lesions noted Laboratory Results - last 24 hr 10/13/17 10/14/17 10/14/17 19:06 05:00 05:00 WBC 11.7 H RBC 2.58 L Hgb 7.5 L Hct 22.3 L MCV 86.2 MCH 29.0 MCHC 33.7 RDW 17.1 H Plt Count 303 MPV 6.6 L Manual Slide Review No Result Required. Sodium Potassium Chloride Carbon Dioxide Anion Gap BUN Creatinine Creat Clearance w eGFR POC Glucometer [id number] Random Glucose Calcium Total Bilirubin AST ALT Alkaline Phosphatase Total Protein Albumin Random Vancomycin 19.311 10/14/17 05:00 WBC RBC Hgb Hct MCV MCH MCHC RDW Plt Count MPV Manual Slide Review Sodium 143 Potassium 3.2 L Chloride 109 H Carbon Dioxide 21 Anion Gap 13 BUN 68 H Creatinine 3.0 H Creat Clearance w eGFR 20.91 POC Glucometer Random Glucose 108 H Calcium 8.5 Total Bilirubin 0.6 D AST 62 H ALT 30 Alkaline Phosphatase 880 H Total Protein 7.2 Albumin 1.8 L Random Vancomycin Active Medications Generic Name Dose Route Start Last Admin Trade Name Freq PRN Reason Stop Dose Admin Acetaminophen 650 mg 10/09/17 05:31 10/14/17 12:27 Tylenol - PO 650 mg Q6H PRN Administration FEVER OR PAIN Amiodarone HCl 200 mg 10/04/17 16:45 10/14/17 09:05 Cordarone - PEG 200 mg DAILY [facility] Administration Ferrous Sulfate 325 mg 09/05/17 12:00 10/14/17 09:05 Feosol - PO 325 mg DAILY [facility] Administration Folic Acid 1 mg 09/02/17 10:00 10/14/17 09:04 Folic Acid - PO 1 mg DAILY [facility] Administration Hydromorphone HCl 1 mg 10/12/17 10:08 10/14/17 12:26 Dilaudid Injection - IVPUSH 1 mg Q4H PRN Administration PAIN Famotidine/Sodium Chloride 20 mg in 50 mls @ 100 mls/hr 09/28/17 10:00 09:05 Pepcid 20 Mg Premixed Ivpb - IVPB 100 mls/hr BID [facility] Administration Metoprolol Tartrate 5 mg 10/02/17 16:47 10/13/17 18:19 Lopressor Injection - IVPUSH 5 mg Q6H PRN Administration HYPERTENSION Metoprolol Tartrate 50 mg 10/11/17 22:00 10/14/17 13:32 Lopressor - PEG 50 mg TID [facility] Administration Multivitamins/Minerals 1 each 09/02/17 10:00 10/14/17 09:04 Theragran-M PO 1 each DAILY [facility] Administration Nystatin 1 applic 10/12/17 11:30 10/14/17 12:21 Mycostatin Cream - TP 1 applic Q6HPO [facility] Administration Quetiapine Fumarate 25 mg 10/13/17 00:15 10/14/17 09:05 Seroquel - PEG 25 mg DAILY [facility] Administration Sevelamer Carbonate 0.8 gm 10/05/17 08:16 10/14/17 12:21 Renvela Powder Packet - PEG 0.8 gm TIDCM [facility] Administration Thiamine HCl 100 mg 09/02/17 10:00 10/14/17 09:04 Vitamin B1 - PO 100 mg DAILY [facility] Administration ASSESSMENT/PLAN: Neuro: - Awake and alert; interactive - Continue 25mg of seroquel once/day for agitation - Currently using wrist/glove restraints CV: Recurrent a-fib - Amio 200mg via PEG - BP and HR stable Pulm: Hypoxic respiratory failure s/p tracheostomy - Trach 5 days ago; tolerating well - Vent settings: - Assist control - RR: 14 - TV: 450 - FiO2: 40% - PEEP: 5 - CXR showing improvement from yesterday Renal: ARF; BUN/Cr 68/3.0 - Slightly improved - Freeman in removed - Renal dose meds (vancomycin) : - None GI: - None ID: Osteomyelitis: - Continue vancomycin and dose for renal function - D/c aztreonam - White count trending downwards Hem/Onc: - Hgb 7.5 today will continue to trend daily Endocrine: - None PPX: - Heparin GGT FEN (Fluids, electrolytes, nutrition): - PEG tube feeding per [employer] consultant recs Dispo: - Continue to monitor in ICU - Consider transfer to LTAC within 24-48 hours Visit type - Emergency Visit Emergency Visit: Yes ED Registration Date: 08/31/17 Care time: The patient presented to the Emergency Department on the above date and was hospitalized for further evaluation of their emergent condition. - New Patient This patient is new to me today: No - Critical Care Critical Care patient: Yes Total Critical Care Time (in minutes): 50 Critical Care Statement: The care of this patient involved high complexity decision making to prevent further life threatening deterioration of the patient 's condition and/or to evaluate & treat vital organ system(s) failure or risk of failure.
--- NOTE | 2017-10-14 16:01 | PN ---
Progress Note, Physician History of Present Illness: Pt seen and examined at bedside. He is awake and appears comfortable. - Current Medication List Current Medications: Active Medications Acetaminophen (Tylenol -) 650 mg PO Q6H PRN PRN Reason: FEVER OR PAIN Last Admin: 10/14/17 12:27 Dose: 650 mg Amiodarone HCl (Cordarone -) 200 mg PEG DAILY [facility] Last Admin: 10/14/17 09:05 Dose: 200 mg Ferrous Sulfate (Feosol -) 325 mg PO DAILY [facility] Last Admin: 10/14/17 09:05 Dose: 325 mg Folic Acid (Folic Acid -) 1 mg PO DAILY [facility] Last Admin: 10/14/17 09:04 Dose: 1 mg Hydromorphone HCl (Dilaudid Injection -) 1 mg IVPUSH Q4H PRN PRN Reason: PAIN Last Admin: 10/14/17 12:26 Dose: 1 mg Famotidine/Sodium Chloride (Pepcid 20 Mg Premixed Ivpb -) 20 mg in 50 mls @ 100 mls/hr IVPB BID [facility] Last Admin: 10/14/17 09:05 Dose: 100 mls/hr Potassium Chloride (Potassium Chloride 10 Meq Premix Ivpb -) 10 meq in 100 mls @ 100 mls/hr IVPB Q60M [facility] Stop: 10/14/17 16:59 Metoprolol Tartrate (Lopressor Injection -) 5 mg IVPUSH Q6H PRN PRN Reason: HYPERTENSION Last Admin: 10/13/17 18:19 Dose: 5 mg Metoprolol Tartrate (Lopressor -) 50 mg PEG TID [facility] Last Admin: 10/14/17 13:32 Dose: 50 mg Multivitamins/Minerals (Theragran-M) 1 each PO DAILY [facility] Last Admin: 10/14/17 09:04 Dose: 1 each Nystatin (Mycostatin Cream -) 1 applic TP Q6HPO [facility] Last Admin: 10/14/17 12:21 Dose: 1 applic Quetiapine Fumarate (Seroquel -) 25 mg PEG DAILY [facility] Last Admin: 10/14/17 09:05 Dose: 25 mg Sevelamer Carbonate (Renvela Powder Packet -) 0.8 gm PEG TIDCM [facility] Last Admin: 10/14/17 12:21 Dose: 0.8 gm Thiamine HCl (Vitamin B1 -) 100 mg PO DAILY [facility] Last Admin: 10/14/17 09:04 Dose: 100 mg - Objective Vital Signs: Vital Signs Temperature 99.6 F 10/14/17 14:00 Pulse Rate 73 10/14/17 14:00 Respiratory Rate 18 10/14/17 14:22 Blood Pressure 125/77 10/14/17 14:00 O2 Sat by Pulse Oximetry (%) 100 10/14/17 13:01 Constitutional: Yes: Calm Eyes: Yes: Conjunctiva Clear HENT: Yes: Atraumatic Neck: Yes: Supple Cardiovascular: Yes: S1, S2 Respiratory: Yes: Mechanically Ventilated Gastrointestinal: Yes: Soft, Other (peg) Genitourinary: Yes: Incontinence Musculoskeletal: Yes: Muscle Weakness Edema: Yes Edema: LUE: Trace, RUE: Trace, LLE: Trace, RLE: Trace Neurological: Yes: Other (responds to commands) Labs: CBC, BMP 10/14/17 05:00 10/14/17 05:00 INR, PTT INR 1.14 (0.82-1.09) D 10/03/17 05:22 - ....Imaging Chest X-ray: Report Reviewed Problem List - Problems (1) Abuse, drug or alcohol Code(s): F19.10 - OTHER PSYCHOACTIVE SUBSTANCE ABUSE, UNCOMPLICATED (2) Withdrawal symptoms, alcohol Code(s): F10.239 - ALCOHOL DEPENDENCE WITH WITHDRAWAL, UNSPECIFIED Qualifiers: Complication of substance-induced condition: uncomplicated Qualified Code(s ): F10.230 - Alcohol dependence with withdrawal, uncomplicated (3) Hyponatremia Code(s): E87.1 - HYPO-OSMOLALITY AND HYPONATREMIA (4) Respiratory failure with hypoxia Code(s): J96.91 - RESPIRATORY FAILURE, UNSPECIFIED WITH HYPOXIA Qualifiers: Chronicity: acute Qualified Code(s): J96.01 - Acute respiratory failure with hypoxia (5) Staphylococcus aureus bacteremia Code(s): R78.81 - BACTEREMIA (6) Acute kidney injury Code(s): N17.9 - ACUTE KIDNEY FAILURE, UNSPECIFIED (7) Anemia Code(s): D64.9 - ANEMIA, UNSPECIFIED Qualifiers: Anemia type: unspecified type Qualified Code(s): D64.9 - Anemia, unspecified Assessment/Plan Current Medications Generic Name Dose Route Start Last Admin Trade Name Freq PRN Reason Stop Dose Admin Acetaminophen 650 mg 10/09/17 05:31 10/14/17 12:27 Tylenol - PO 650 mg Q6H PRN Administration FEVER OR PAIN Amiodarone HCl 200 mg 10/04/17 16:45 10/14/17 09:05 Cordarone - PEG 200 mg DAILY [facility] Administration Ferrous Sulfate 325 mg 09/05/17 12:00 10/14/17 09:05 Feosol - PO 325 mg DAILY [facility] Administration Folic Acid 1 mg 09/02/17 10:00 10/14/17 09:04 Folic Acid - PO 1 mg DAILY [facility] Administration Hydromorphone HCl 1 mg 10/12/17 10:08 10/14/17 12:26 Dilaudid Injection - IVPUSH 1 mg Q4H PRN Administration PAIN Famotidine/Sodium Chloride 20 mg in 50 mls @ 100 mls/hr 09/28/17 10:00 09:05 Pepcid 20 Mg Premixed Ivpb - IVPB 100 mls/hr BID [facility] Administration Potassium Chloride 10 meq in 100 mls @ 100 mls/hr 10/14/17 16:00 Potassium Chloride 10 Meq Premix Ivpb - IVPB 10/14/17 16:59 Q60M [facility] Metoprolol Tartrate 5 mg 10/02/17 16:47 10/13/17 18:19 Lopressor Injection - IVPUSH 5 mg Q6H PRN Administration HYPERTENSION Metoprolol Tartrate 50 mg 10/11/17 22:00 10/14/17 13:32 Lopressor - PEG 50 mg TID [facility] Administration Multivitamins/Minerals 1 each 09/02/17 10:00 10/14/17 09:04 Theragran-M PO 1 each DAILY [facility] Administration Nystatin 1 applic 10/12/17 11:30 10/14/17 12:21 Mycostatin Cream - TP 1 applic Q6HPO [facility] Administration Quetiapine Fumarate 25 mg 10/13/17 00:15 10/14/17 09:05 Seroquel - PEG 25 mg DAILY [facility] Administration Sevelamer Carbonate 0.8 gm 10/05/17 08:16 10/14/17 12:21 Renvela Powder Packet - PEG 0.8 gm TIDCM [facility] Administration Thiamine HCl 100 mg 09/02/17 10:00 10/14/17 09:04 Vitamin B1 - PO 100 mg DAILY [facility] Administration Impression 1. ALEXANDRA 2. fluid overload 3. hypoalbuminemia 4. respiratory failure requiring intubation 5. anemia 6. etoh abuse 7. fevers 8. hypokalemia 9. pleural effusion 10. hypernatremia 11. GI bleed 12. rash Plan - replace potassium - repeat bmp in am - vent support - lasix prn - cxr reviewed - ALEXANDRA is multifactorial - will follow Dr Peres
--- NOTE | 2017-10-14 17:06 | PN ---
Teaching Attending Note Name of Resident: Blair White ATTENDING PHYSICIAN STATEMENT Time of evaluation: 9:15 AM I saw and evaluated the patient. I reviewed the resident's note and discussed the case with the resident. I agree with the resident's findings and plan as documented. SUBJECTIVE: Patient seen and examined. Awake, appropriate, communicates with gestures, No pain or complaints currently. Calmer today. OBJECTIVE: Vital Signs Period Temp Pulse Resp BP Sys/Jeff Pulse Ox Last 24 Hr 99.0 F-100.3 F 69-98 14-28 112-167/69-102 99-100 Intake & Output 10/11/17 10/12/17 10/13/17 10/14/17 23:59 23:59 23:59 23:59 Intake Total 0 2600 1630 1646 Balance 2039 2600 1630 1646 Weight 186 lb 12.8 oz 188 lb 2 oz 186 lb 4.65 oz 182 lb General; lying in bed, calmer, CVS:S1S2 regular Chest: scattered rhonchi Neck: trach in place Abdomen: soft, NT, positive PEG Extremities: improving edema and RLE lesions. Home Medication List Medication Instructions Recorded Confirmed Type Unobtainable [Unobtainable] 08/31/17 08/31/17 History Active Medications Generic Name Dose Route Start Last Admin Trade Name Freq PRN Reason Stop Dose Admin Acetaminophen 650 mg 10/09/17 05:31 10/14/17 12:27 Tylenol - PO 650 mg Q6H PRN Administration FEVER OR PAIN Amiodarone HCl 200 mg 10/04/17 16:45 10/14/17 09:05 Cordarone - PEG 200 mg DAILY [facility] Administration Ferrous Sulfate 325 mg 09/05/17 12:00 10/14/17 09:05 Feosol - PO 325 mg DAILY [facility] Administration Folic Acid 1 mg 09/02/17 10:00 10/14/17 09:04 Folic Acid - PO 1 mg DAILY [facility] Administration Hydromorphone HCl 1 mg 10/12/17 10:08 10/14/17 16:45 Dilaudid Injection - IVPUSH 1 mg Q4H PRN Administration PAIN Famotidine/Sodium Chloride 20 mg in 50 mls @ 100 mls/hr 09/28/17 10:00 09:05 Pepcid 20 Mg Premixed Ivpb - IVPB 100 mls/hr BID [facility] Administration Metoprolol Tartrate 5 mg 10/02/17 16:47 10/13/17 18:19 Lopressor Injection - IVPUSH 5 mg Q6H PRN Administration HYPERTENSION Metoprolol Tartrate 50 mg 10/11/17 22:00 10/14/17 13:32 Lopressor - PEG 50 mg TID [facility] Administration Multivitamins/Minerals 1 each 09/02/17 10:00 10/14/17 09:04 Theragran-M PO 1 each DAILY [facility] Administration Nystatin 1 applic 10/12/17 11:30 10/14/17 12:21 Mycostatin Cream - TP 1 applic Q6HPO [facility] Administration Quetiapine Fumarate 25 mg 10/13/17 00:15 10/14/17 09:05 Seroquel - PEG 25 mg DAILY [facility] Administration Sevelamer Carbonate 0.8 gm 10/05/17 08:16 10/14/17 17:02 Renvela Powder Packet - PEG 0.8 gm TIDCM [facility] Administration Thiamine HCl 100 mg 09/02/17 10:00 10/14/17 09:04 Vitamin B1 - PO 100 mg DAILY [facility] Administration Laboratory Results - last 24 hr 10/13/17 10/14/17 10/14/17 19:06 05:00 05:00 WBC 11.7 H RBC 2.58 L Hgb 7.5 L Hct 22.3 L MCV 86.2 MCH 29.0 MCHC 33.7 RDW 17.1 H Plt Count 303 MPV 6.6 L Manual Slide Review No Result Required. Sodium Potassium Chloride Carbon Dioxide Anion Gap BUN Creatinine Creat Clearance w eGFR POC Glucometer 155.62080 Random Glucose Calcium Total Bilirubin AST ALT Alkaline Phosphatase Total Protein Albumin Random Vancomycin 19.311 10/14/17 05:00 WBC RBC Hgb Hct MCV MCH MCHC RDW Plt Count MPV Manual Slide Review Sodium 143 Potassium 3.2 L Chloride 109 H Carbon Dioxide 21 Anion Gap 13 BUN 68 H Creatinine 3.0 H Creat Clearance w eGFR 20.91 POC Glucometer Random Glucose 108 H Calcium 8.5 Total Bilirubin 0.6 D AST 62 H ALT 30 Alkaline Phosphatase 880 H Total Protein 7.2 Albumin 1.8 L Random Vancomycin Microbiology 10/10/17 08:45 Sputum - Endotrachea Suction/Ventilator Gram Stain - Final 10/10/17 08:45 Sputum - Endotrachea Suction/Ventilator Sputum Culture - Final NORMAL RESPIRATORY HERBER ASSESSMENT AND PLAN: -Acute hypoxic respiratory failure -Severe sepsis due to cavitary PNA, MSSA bacteremia, ALISA neg for vegetation -Large right loculated pleural effusion, s/p chest tube, removed now -Aspiration risk -Acute T9-T10 discitis/osteomyelitis -Hematochezia, resolved -ARF, from sepsis related ATN vs medication related, ?AIN -Acute on chronic anemia, suspect from renal dysfunction, compounded by blood loss earlier from hematochezia -AFib with RVR recurrent -Rash, ?medication induced , monitor for now. -Hypokalemia/hypomagnesemia -Hyperphosphatemia -Hypovolumic hypernatremia -Alcohol abuse -Normocytic anemia, now acute blood loss anemia from trach (suctioned blood and clots from trach 10/09) -Acute transaminitis, resolved, now with elevated alkaline phosphatase -Chronic right subdural hematoma -Thrombocytopenia Secondary to alcohol, splenomegaly. now stable -Chronic right subdural hematoma Plan: s/p extubated 09/19 and re-intubated and extubated 09/27. re-intubated 10/01. due to tachypnea and hypoxia. full vent support. s/p trach 10/09. Tapering off fentanyl as tolerated. No further fevers, improved WBC, continue trach suction, sputum cultures, repeat cultures sent, u/a, CXR noted, ID input appreciated, WBC trending down, Aztreonam d/diandra. Chest tube removed. on vanco by level, placed on 500 mg daily to assist in administration at LTACH. will need 6-8w abx for OM. CT surgery and ID on board back in sinus rhythm, Amiodarine and lopressor via PEG. should ideally be on coumadin once improved. Increased lopressor, received cardizem overnight. Renal function slowly improving, ?Diuretic phase of ATN, continue to monitor, renal dosing of meds. s/p 9 units PRBC this admission. Recurrent anemia from blood loss as above from trach site with suctioning of clots, stable post transfusion. Free water flushes prn and follow up Na level. s/p PEG placement, continue feeds US shows hepatosplenomegaly and fatty infiltration of liver Rising alkaline phosphatase, check abdominal ultrasound. Continue thiamine, folic acid, multivitamin DVT prophylaxis- heparin sq MICU monitoring. poor overall prognosis. pt will likely benefit from LTAC facility. Discussed with case management, will taper off fentanyl and attempt to get off mittens with scheduled vanco dosing to assist in transfer to LTACH, hopefully in 48 hours if disposition arranged. The care of this patient involved high complexity decision making to prevent further life threatening deterioration of the patient's condition and/or to evaluate & treat vital organ system(s) failure or risk of failure. 35 mins
[2017-10-14] MEDS ORDERED: ALPRAZolam 0.25 MG TABLET PEG ONE (20:25)
[2017-10-15] MEDS: NYSTATIN 100,000 UNIT/GM TOPICAL CREAM 15 GM TUBE TP SCH ×3 (00:05→12:34)
[2017-10-15] MEDS: HYDROmorphone HCL CARPU-JECT 2 MG/1 ML DISP.SYRIN IVPUSH PRN ×2 (02:25→06:28)
[2017-10-15] MEDS ORDERED: DOCUSATE NA 100 MG/10 ML UNIT-DOSE CUPS PEG PRN (05:36)
[2017-10-15] MEDS ORDERED: SENNOSIDES 8.8 MG/5 ML BULK BOTTLE PEG SCH (05:45)
--- NOTE | 2017-10-15 06:21 | PN ---
Progress Note (short form) - Note Progress Note: Chief Compliant: Events noted, notes reviewed, remains on the ventilator via tracheotomy, currently in sinus rhythm with APC's History of Present Illness: Seen and examined in the ICU. Events noted, notes reviewed, remains on the ventilator via tracheotomy, currently in sinus rhythm with APC's Remains on Lopressor and Amiodarone therapies As outlined in prior notes Elvieis was D/C and ideally Coumadin is the drug of choice but considering his clinical presentation and co-morbidities including history of alcoholism I do not feel the patient is an appropriate candidate for care home A/C Echocardiography dated 09/02/2017 revealed probable preserved LV function, but can't R/O regional wall motion abnormality - Current Medication List Current Medications Acetaminophen (Tylenol -) 650 mg PO Q6H PRN PRN Reason: FEVER OR PAIN Last Admin: 10/14/17 20:35 Dose: 650 mg Amiodarone HCl (Cordarone -) 200 mg PEG DAILY [facility] Last Admin: 10/14/17 09:05 Dose: 200 mg Docusate Sodium (Colace Liquid -) 300 mg PEG DAILY PRN PRN Reason: CONSTIPATION Ferrous Sulfate (Feosol -) 325 mg PO DAILY [facility] Last Admin: 10/14/17 09:05 Dose: 325 mg Folic Acid (Folic Acid -) 1 mg PO DAILY [facility] Last Admin: 10/14/17 09:04 Dose: 1 mg Hydromorphone HCl (Dilaudid Injection -) 1 mg IVPUSH Q4H PRN PRN Reason: PAIN Last Admin: 10/15/17 06:28 Dose: 1 mg Famotidine/Sodium Chloride (Pepcid 20 Mg Premixed Ivpb -) 20 mg in 50 mls @ 100 mls/hr IVPB BID [facility] Last Admin: 10/14/17 21:38 Dose: 100 mls/hr Metoprolol Tartrate (Lopressor Injection -) 5 mg IVPUSH Q6H PRN PRN Reason: HYPERTENSION Last Admin: 10/13/17 18:19 Dose: 5 mg Metoprolol Tartrate (Lopressor -) 50 mg PEG TID [facility] Last Admin: 10/15/17 06:27 Dose: 50 mg Multivitamins/Minerals (Theragran-M) 1 each PO DAILY [facility] Last Admin: 10/14/17 09:04 Dose: 1 each Nystatin (Mycostatin Cream -) 1 applic TP Q6HPO [facility] Last Admin: 10/15/17 06:27 Dose: 1 applic Quetiapine Fumarate (Seroquel -) 25 mg PEG DAILY [facility] Last Admin: 10/14/17 09:05 Dose: 25 mg Quetiapine Fumarate (Seroquel -) 25 mg PEG HS [facility] Last Admin: 10/14/17 21:42 Dose: Not Given Senna (Senna Oral Solution -) 8.8 mg PEG HS [facility] Last Admin: 10/15/17 06:27 Dose: 8.8 mg Sevelamer Carbonate (Renvela Powder Packet -) 0.8 gm PEG TIDCM [facility] Last Admin: 10/14/17 17:02 Dose: 0.8 gm Thiamine HCl (Vitamin B1 -) 100 mg PO DAILY [facility] Last Admin: 10/14/17 09:04 Dose: 100 mg Review of systems: Unable to obtain - Objective Vital Signs: Last Vital Signs Temp Pulse Resp BP Pulse Ox 98.8 F 87 24 169/103 98 10/15/17 06:00 10/15/17 06:00 10/15/17 06:35 10/15/17 06:00 10/14/17 21:28 Intake & Output 10/12/17 10/13/17 10/14/17 10/15/17 23:59 23:59 23:59 23:59 Intake Total 2600 1630 1646 550 Balance 2600 1630 1646 550 Weight 188 lb 2 oz 186 lb 4.65 oz 182 lb 185 lb 8 oz Neck: Supple Negative JVD Cardiovascular: S1 S2 Regular Rate and Rhythm No Murmurs Respiratory: Bilateral Scattered Rhonchi Gastrointestinal: Soft Benign Normal Bowel Sounds Ext: Edema Labs: CBC, BMP 10/15/17 05:00 10/15/17 05:00 Assessment/Plan ASSESSMENT: 1. Paroxysmal atrial fibrillation [id number] score of 2, currently in sinus rhythm off of A/C/Eliquis therapy as outlined above, on Amiodarone therapy 2. Acute hypoxic respiratory failure, post tracheotomy 3. Cavitating pneumonia, MSSA bacteremia, post septic shock no evidence of endocarditis by ALISA criteria 4. Diastolic LV dysfunction with class I-II NYHA congestive heart failure, compensated 5. Osteomyelitis T9-T10 discitis 6. Loculated effusion post chest tube insertion 7. History of alcohol dependence 8. Acute renal insufficiency, resolving 9. Anemia 10. Hypokalemia PLAN: 1. Continue Lopressor via PEG, hemodynamics permitting 2. Continue Amiodarone via PEG 3. Add Norvasc if BP remains elevated 4. 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 Consider transfusion to maintain Hg equal or > 8.0 6. Correction of Hypokalemia 7. Ventilator management as per the ICU team Overall poor prognosis Chang Blackwell M.D.
[2017-10-15 06:27] LABS: BASOPHIL 1.3 % (0-2.0); EOSINOPHIL 10.5 % (0-4.5); MCH 29.5 pg (25.7-33.7); MCHC 34.4 g/dl (32.0-35.9); MEAN CELL VOLUME 85.9 fl (80-96); MEAN PLT VOLUME 6.2 fl (7.5-11.1); NEUTROPHILS 66.4 % (42.8-82.8); PLATELET COUNT 303 K/MM3 (134-434); RDW 17.1 % (11.9-15.9); WHITE BLOOD COUNT 10.5 K/mm3 (4.0-10.0)
[2017-10-15] MEDS: METOPROLOL TARTRATE 50 MG TABLET (FP) PEG SCH ×2 (06:27→13:16)
[2017-10-15 06:53] LABS: ALBUMIN 1.9 g/dl (3.4-5.0); ALK PHOS 959 U/L (45-117); ANION GAP 11 (8-16); BILIRUBIN,TOTAL 0.7 mg/dL (0.2-1.0); CALCIUM 8.2 mg/dL (8.5-10.1); CO2 21 mmol/L (21-32); CREATININE 2.8 mg/dL (0.7-1.3); GLUCOSE,RANDOM 97 mg/dL (74-106); MAGNESIUM 1.8 mg/dL (1.8-2.4); SGOT/AST 61 U/L (15-37); SGPT/ALT 35 U/L (12-78); TOT PROT 7.5 g/dl (6.4-8.2)
[2017-10-15] MEDS ORDERED: POLYETHYLENE GLYCOL 3350 119 GM BTL PO ONE ×2 (08:05→13:19)
[2017-10-15] MEDS ORDERED: POTASSIUM CHLORIDE ORAL LIQUID 20 MEQ/15 ML PEG ONE (08:07)
[2017-10-15] MEDS: SEVELAMER CARBONATE 0.8 GM POWDER PACKET PEG SCH ×2 (08:07→13:00)
[2017-10-15] MEDS: MULTIVITAMINS THER W-MINERALS COMBO TABLET (FP) PO SCH (09:09)
[2017-10-15] MEDS: QUEtiapine FUMARATE 25 MG TABLET (FP) PEG SCH (09:09)
[2017-10-15] MEDS: FAMOTIDINE 20 MG/50 ML IVPB 20 MG/50 ML MG IVPB SCH (09:09)
[2017-10-15] MEDS: FOLIC ACID 1 MG TABLET (FP) PO SCH (09:09)
[2017-10-15] MEDS: AMIODARONE HCL 200 MG TABLET (FP) PEG SCH (09:09)
[2017-10-15] MEDS: FERROUS SO4 325 MG TABLET (FP) PO SCH (09:09)
[2017-10-15] MEDS: THIAMINE HCL 100 MG TABLET (FP) PO SCH (09:10)
[2017-10-15] MEDS ORDERED: HYDROmorphone HCL CARPU-JECT 1 MG/1 ML DISP.SYRIN IVPUSH PRN (12:01)
[2017-10-15] MEDS ORDERED: HYDROmorphone HCL CARPU-JECT 2 MG/1 ML DISP.SYRIN ONE (12:09)
--- NOTE | 2017-10-15 12:51 | PN ---
Progress Note, Physician History of Present Illness: Acute ALP elevation noted on (8-9x normal). Normal CBD size, negative for cholelithiasis, choledocolithiasis, or biliary ducts lesions US. Positive Mccarthy 's was reported by US tech, per report. No documented, significant hemodynamic events. No cholestatic, or otherwise known hepatotoxic medications recently started. - Current Medication List Current Medications: Active Medications Acetaminophen (Tylenol -) 650 mg PO Q6H PRN PRN Reason: FEVER OR PAIN Last Admin: 10/14/17 20:35 Dose: 650 mg Amiodarone HCl (Cordarone -) 200 mg PEG DAILY [facility] Last Admin: 10/15/17 09:09 Dose: 200 mg Docusate Sodium (Colace Liquid -) 300 mg PEG DAILY PRN PRN Reason: CONSTIPATION Last Admin: 10/15/17 10:18 Dose: 300 mg Ferrous Sulfate (Feosol -) 325 mg PO DAILY [facility] Last Admin: 10/15/17 09:09 Dose: 325 mg Folic Acid (Folic Acid -) 1 mg PO DAILY [facility] Last Admin: 10/15/17 09:09 Dose: 1 mg Hydromorphone HCl (Dilaudid Injection -) 1 mg IVPUSH Q4H PRN PRN Reason: PAIN Famotidine/Sodium Chloride (Pepcid 20 Mg Premixed Ivpb -) 20 mg in 50 mls @ 100 mls/hr IVPB BID [facility] Last Admin: 10/15/17 09:09 Dose: 100 mls/hr Metoprolol Tartrate (Lopressor Injection -) 5 mg IVPUSH Q6H PRN PRN Reason: HYPERTENSION Last Admin: 10/13/17 18:19 Dose: 5 mg Metoprolol Tartrate (Lopressor -) 50 mg PEG TID [facility] Last Admin: 10/15/17 06:27 Dose: 50 mg Multivitamins/Minerals (Theragran-M) 1 each PO DAILY [facility] Last Admin: 10/15/17 09:09 Dose: 1 each Nystatin (Mycostatin Cream -) 1 applic TP Q6HPO [facility] Last Admin: 10/15/17 12:34 Dose: 1 applic Quetiapine Fumarate (Seroquel -) 25 mg PEG DAILY [facility] Last Admin: 10/15/17 09:09 Dose: 25 mg Quetiapine Fumarate (Seroquel -) 25 mg PEG HS [facility] Last Admin: 10/14/17 21:42 Dose: Not Given Senna (Senna Oral Solution -) 8.8 mg PEG HS [facility] Last Admin: 10/15/17 06:27 Dose: 8.8 mg Sevelamer Carbonate (Renvela Powder Packet -) 0.8 gm PEG TIDCM [facility] Last Admin: 10/15/17 08:07 Dose: 0.8 gm Thiamine HCl (Vitamin B1 -) 100 mg PO DAILY [facility] Last Admin: 10/15/17 09:10 Dose: 100 mg - Objective Vital Signs: Vital Signs Temperature 98.5 F 10/15/17 12:00 Pulse Rate 97 H 10/15/17 12:00 Respiratory Rate 17 10/15/17 12:00 Blood Pressure 168/96 10/15/17 12:00 O2 Sat by Pulse Oximetry (%) 99 10/15/17 10:21 Labs: CBC, BMP 10/15/17 05:00 10/15/17 05:00 INR, PTT INR 1.14 (0.82-1.09) D 10/03/17 05:22 CBCD WBC 10.5 K/mm3 (4.0-10.0) H 10/15/17 05:00 RBC 2.56 M/mm3 (4.00-5.60) L 10/15/17 05:00 Hgb 7.5 GM/dL (11.7-16.9) L 10/15/17 05:00 Hct 22.0 % (35.4-49) L 10/15/17 05:00 MCV 85.9 fl (80-96) 10/15/17 05:00 MCHC 34.4 g/dl (32.0-35.9) 10/15/17 05:00 RDW 17.1 % (11.9-15.9) H 10/15/17 05:00 Plt Count 303 K/MM3 (134-434) 10/15/17 05:00 MPV 6.2 fl (7.5-11.1) L 10/15/17 05:00 CMP Sodium 141 mmol/L (136-145) 10/15/17 05:00 Potassium 3.4 mmol/L (3.5-5.1) L 10/15/17 05:00 Chloride 109 mmol/L (98-107) H 10/15/17 05:00 Carbon Dioxide 21 mmol/L (21-32) 10/15/17 05:00 Anion Gap 11 (8-16) 10/15/17 05:00 BUN 65 mg/dL (7-18) H 10/15/17 05:00 Creatinine 2.8 mg/dL (0.7-1.3) H 10/15/17 05:00 Creat Clearance w eGFR 22.65 (>60) 10/15/17 05:00 Calcium 8.2 mg/dL (8.5-10.1) L 10/15/17 05:00 Total Bilirubin 0.7 mg/dL (0.2-1.0) 10/15/17 05:00 AST 61 U/L (15-37) H 10/15/17 05:00 ALT 35 U/L (12-78) 10/15/17 05:00 Alkaline Phosphatase 959 U/L (45-117) H 10/15/17 05:00 Total Protein 7.5 g/dl (6.4-8.2) 10/15/17 05:00 Albumin 1.9 g/dl (3.4-5.0) L 10/15/17 05:00 Active Medications Acetaminophen (Tylenol -) 650 mg PO Q6H PRN PRN Reason: FEVER OR PAIN Last Admin: 10/14/17 20:35 Dose: 650 mg Amiodarone HCl (Cordarone -) 200 mg PEG DAILY [facility] Last Admin: 10/15/17 09:09 Dose: 200 mg Docusate Sodium (Colace Liquid -) 300 mg PEG DAILY PRN PRN Reason: CONSTIPATION Last Admin: 10/15/17 10:18 Dose: 300 mg Ferrous Sulfate (Feosol -) 325 mg PO DAILY [facility] Last Admin: 10/15/17 09:09 Dose: 325 mg Folic Acid (Folic Acid -) 1 mg PO DAILY [facility] Last Admin: 10/15/17 09:09 Dose: 1 mg Hydromorphone HCl (Dilaudid Injection -) 1 mg IVPUSH Q4H PRN PRN Reason: PAIN Last Admin: 10/15/17 12:51 Dose: 1 mg Famotidine/Sodium Chloride (Pepcid 20 Mg Premixed Ivpb -) 20 mg in 50 mls @ 100 mls/hr IVPB BID [facility] Last Admin: 10/15/17 09:09 Dose: 100 mls/hr Metoprolol Tartrate (Lopressor Injection -) 5 mg IVPUSH Q6H PRN PRN Reason: HYPERTENSION Last Admin: 10/13/17 18:19 Dose: 5 mg Metoprolol Tartrate (Lopressor -) 50 mg PEG TID [facility] Last Admin: 10/15/17 06:27 Dose: 50 mg Multivitamins/Minerals (Theragran-M) 1 each PO DAILY [facility] Last Admin: 10/15/17 09:09 Dose: 1 each Nystatin (Mycostatin Cream -) 1 applic TP Q6HPO [facility] Last Admin: 10/15/17 12:34 Dose: 1 applic Quetiapine Fumarate (Seroquel -) 25 mg PEG DAILY [facility] Last Admin: 10/15/17 09:09 Dose: 25 mg Quetiapine Fumarate (Seroquel -) 25 mg PEG HS [facility] Last Admin: 10/14/17 21:42 Dose: Not Given Senna (Senna Oral Solution -) 8.8 mg PEG HS [facility] Last Admin: 10/15/17 06:27 Dose: 8.8 mg Sevelamer Carbonate (Renvela Powder Packet -) 0.8 gm PEG TIDCM [facility] Last Admin: 10/15/17 08:07 Dose: 0.8 gm Thiamine HCl (Vitamin B1 -) 100 mg PO DAILY [facility] Last Admin: 10/15/17 09:10 Dose: 100 mg Problem List - Problems (1) Failure to thrive in adult Code(s): R62.7 - ADULT FAILURE TO THRIVE (2) Respiratory failure with hypoxia Code(s): J96.91 - RESPIRATORY FAILURE, UNSPECIFIED WITH HYPOXIA Qualifiers: Chronicity: acute Qualified Code(s): J96.01 - Acute respiratory failure with hypoxia (3) Staphylococcus aureus bacteremia Code(s): R78.81 - BACTEREMIA (4) History of alcohol abuse Code(s): Z87.898 - PERSONAL HISTORY OF OTHER SPECIFIED CONDITIONS (5) Gastric ulcer Code(s): K25.9 - GASTRIC ULCER, UNSP ACUTE OR CHRONIC, W/O HEMOR OR PERF (6) Rectal bleeding Code(s): K62.5 - HEMORRHAGE OF ANUS AND RECTUM Assessment/Plan Ready to be transferred to rehabilitation center. Noted to have acute cholestasis, 8-9 x normal elevated ALP. US negative for obvious pathology however there is a question of positive mccarthy's during the exam. No obvious hemodynamic issues in the last few days. Amiodarone was started on . Seroquel on . Asked pharmacy to review all recent medications. No obvious, other, hepatotoxic medications noted. Surgical eval noted. Consider stopping seroquel and amiodarone. Monitor liver enzymes, ALP and bili daily
--- NOTE | 2017-10-15 12:57 | PN ---
Physical Exam: SUBJECTIVE: The patient is a 67M with a PMH of EtOH abuse and HTN. The patient has had multiple intubations during his ICU stay and no longer requiring sedation, and is comfortable and trached. The patient is now able to talk and states that he feels like he is not getting oxygen (O2 sat 98-100%). He is more interactive and responsive. No events overnight, although he did become slightly agitated. OBJECTIVE: Vital Signs Period Temp Pulse Resp BP Sys/Jeff Pulse Ox Last 24 Hr 98.1 F-99.8 F 73-97 16-24 118-169/72-104 98-100 GENERAL: The patient is awake, alert, and fully oriented, in no acute distress. HEAD: Normal with no signs of trauma. EYES: PERRL, extraocular movements intact, sclera anicteric, conjunctiva clear. No ptosis. NECK: Trachea midline, full range of motion, supple. LUNGS: Breath sounds equal, clear to auscultation bilaterally, no wheezes, no crackles, no accessory muscle use. HEART: Regular rate and rhythm, S1, S2 without murmur, rub or gallop. ABDOMEN: Soft, nontender, nondistended, normoactive bowel sounds, no guarding, no rebound, no hepatosplenomegaly, no masses. EXTREMITIES: 2+ pulses, warm, well-perfused, no edema. NEUROLOGICAL: Cranial nerves II through XII grossly intact. Normal speech, gait not observed. PSYCH: Normal mood, normal affect. SKIN: Warm, dry, normal turgor, no rashes or lesions noted Laboratory Results - last 24 hr 10/15/17 10/15/17 10/15/17 05:00 05:00 05:00 WBC 10.5 H RBC 2.56 L Hgb 7.5 L Hct 22.0 L MCV 85.9 MCH 29.5 MCHC 34.4 RDW 17.1 H Plt Count 303 MPV 6.2 L Neutrophils % 66.4 Lymphocytes % 11.4 D Monocytes % 10.4 H Eosinophils % 10.5 H Basophils % 1.3 Sodium 141 Potassium 3.4 L Chloride 109 H Carbon Dioxide 21 Anion Gap 11 BUN 65 H Creatinine 2.8 H Creat Clearance w eGFR 22.65 Random Glucose 97 Calcium 8.2 L Magnesium 1.8 Total Bilirubin 0.7 GGT 761 H Cancelled AST 61 H ALT 35 Alkaline Phosphatase 959 H Total Protein 7.5 Albumin 1.9 L Lipase 166 Vancomycin Pre-Dose 10/15/17 06:00 WBC RBC Hgb Hct MCV MCH MCHC RDW Plt Count MPV Neutrophils % Lymphocytes % Monocytes % Eosinophils % Basophils % Sodium Potassium Chloride Carbon Dioxide Anion Gap BUN Creatinine Creat Clearance w eGFR Random Glucose Calcium Magnesium Total Bilirubin GGT AST ALT Alkaline Phosphatase Total Protein Albumin Lipase Vancomycin Pre-Dose 16.032 H* D Active Medications Generic Name Dose Route Start Last Admin Trade Name Freq PRN Reason Stop Dose Admin Acetaminophen 650 mg 10/09/17 05:31 10/14/17 20:35 Tylenol - PO 650 mg Q6H PRN Administration FEVER OR PAIN Amiodarone HCl 200 mg 10/04/17 16:45 10/15/17 09:09 Cordarone - PEG 200 mg DAILY [facility] Administration Docusate Sodium 300 mg 10/15/17 05:36 10/15/17 10:18 Colace Liquid - PEG 300 mg DAILY PRN Administration CONSTIPATION Ferrous Sulfate 325 mg 09/05/17 12:00 10/15/17 09:09 Feosol - PO 325 mg DAILY [facility] Administration Folic Acid 1 mg 09/02/17 10:00 10/15/17 09:09 Folic Acid - PO 1 mg DAILY [facility] Administration Hydromorphone HCl 1 mg 10/15/17 12:01 Dilaudid Injection - IVPUSH Q4H PRN PAIN Famotidine/Sodium Chloride 20 mg in 50 mls @ 100 mls/hr 09/28/17 10:00 09:09 Pepcid 20 Mg Premixed Ivpb - IVPB 100 mls/hr BID [facility] Administration Metoprolol Tartrate 5 mg 10/02/17 16:47 10/13/17 18:19 Lopressor Injection - IVPUSH 5 mg Q6H PRN Administration HYPERTENSION Metoprolol Tartrate 50 mg 10/11/17 22:00 10/15/17 06:27 Lopressor - PEG 50 mg TID [facility] Administration Multivitamins/Minerals 1 each 09/02/17 10:00 10/15/17 09:09 Theragran-M PO 1 each DAILY [facility] Administration Nystatin 1 applic 10/12/17 11:30 10/15/17 12:34 Mycostatin Cream - TP 1 applic Q6HPO [facility] Administration Quetiapine Fumarate 25 mg 10/13/17 00:15 10/15/17 09:09 Seroquel - PEG 25 mg DAILY [facility] Administration Quetiapine Fumarate 25 mg 10/14/17 20:30 10/14/17 21:42 Seroquel - PEG Not Given HS [facility] Senna 8.8 mg 10/15/17 05:45 10/15/17 06:27 Senna Oral Solution - PEG 8.8 mg HS [facility] Administration Sevelamer Carbonate 0.8 gm 10/05/17 08:16 10/15/17 08:07 Renvela Powder Packet - PEG 0.8 gm TIDCM [facility] Administration Thiamine HCl 100 mg 09/02/17 10:00 10/15/17 09:10 Vitamin B1 - PO 100 mg DAILY [facility] Administration ASSESSMENT/PLAN: Neuro: - Awake and alert; interactive - Continue 25mg of seroquel once/day for agitation - No restraints being used CV: Recurrent a-fib - Amio 200mg via PEG - BP and HR stable Pulm: Hypoxic respiratory failure s/p tracheostomy - Trach 6 days ago; tolerating well; now talking with [place] valve - Vent settings: - Assist control - RR: 14 - TV: 450 - FiO2: 40% - PEEP: 5 - CXR showing improvement from yesterday Renal: ARF; BUN/Cr 65/2.8 - Slightly improved - Freeman in removed - Renal dose meds (vancomycin) : - None GI: - None ID: Osteomyelitis: - Continue vancomycin and dose for renal function - D/c aztreonam - White count trending downwards - Alk phos increasing, might be 2/2 to worsening osteo and/or hepatobiliary stasis Hem/Onc: - Hgb 7.5 today will continue to trend daily, unchanged Endocrine: - None PPX: - Heparin GGT FEN (Fluids, electrolytes, nutrition): - PEG tube feeding per quality compliance coordinator recs - Tube feeding stopped yesterday for RUQ U/S, when restarted, the patient was complaining of abdominal pain - Would appreciate recs from GI, Dr. Pablo, on restarting tube feed diet Dispo: - Order for transfer to [facility] Visit type - Emergency Visit Emergency Visit: Yes ED Registration Date: 08/31/17 Care time: The patient presented to the Emergency Department on the above date and was hospitalized for further evaluation of their emergent condition. - New Patient This patient is new to me today: No - Critical Care Critical Care patient: Yes Total Critical Care Time (in minutes): 46 Critical Care Statement: The care of this patient involved high complexity decision making to prevent further life threatening deterioration of the patient 's condition and/or to evaluate & treat vital organ system(s) failure or risk of failure.
[2017-10-15] MEDS ORDERED: PT OWN MED DRAWER 7, Y5N ONE (12:59)
--- NOTE | 2017-10-15 13:07 | CONSULT ---
- Consultation REQUESTING PROVIDER: Zakia EMERY CONSULT REQUEST: We have been asked to surgically evaluate this patient for ( specify). PCP:Angela Koehler HISTORY OF PRESENT ILLNESS: CTSP who is a 67 y/o white male admitted 08/31/17; entire chart reviewed; now asked to see patient with rising alk phos of ?? significance; patient has a PEG through which he has been fed; he ?? had RUQ pain last evening and the TF was held; he has no c/o n/v and ? no pain ? today. PMHx: hypertension; ETOH abuse PSHx: none Home Medications Medication Instructions Recorded Amiodarone HCl [Cordarone -] 200 mg PEG DAILY tablet 10/15/17 Folic Acid - 1 mg PO DAILY tablet 10/15/17 Hydromorphone Injection [Dilaudid 1 mg IVPUSH Q4H PRN disp.syrin 10/15/17 Injection -] MDD 6 Metoprolol Tartrate [Lopressor -] 50 mg PEG TID tablet 10/15/17 Mupirocin Cream [Bactroban 2% 1 applic TP BID tube 10/15/17 Cream -] Quetiapine Fumarate [Seroquel -] 25 mg PEG HS tablet 10/15/17 Thiamine HCl [Vitamin B1 -] 100 mg PO DAILY tablet 10/15/17 Allergies Allergy/AdvReac Type Severity Reaction Status Date / Time No Known Allergies Allergy Verified 07/16/17 15:34 PHYSICAL EXAM: GENERAL: Awake, alert, and fully oriented, in no acute distress; on trach collar HEAD: Normal with no signs of trauma. EYES: PERRL, sclera anicteric, conjunctiva clear. NECK: Normal ROM, supple without lymphadenopathy, JVD, or masses. ABDOMEN: Soft, nontender, not distended, normoactive bowel sounds, no guarding, no rebound, no masses. No organomegaly. No hernias; PEG in place UPPER EXTREMITIES: 2+ pulses, warm, well-perfused. No cyanosis. Cap refill <2 seconds. No peripheral edema. LOWER EXTREMITIES: 2+ pulses, warm, well-perfused. No calf tenderness. No peripheral edema. NEUROLOGICAL: Normal speech, gait not observed. PSYCH: Cooperative. Good eye contact. Appropriate mood and affect. SKIN: Warm, dry, normal turgor, no rashes or lesions noted. Vital Signs Temperature 98.5 F 10/15/17 12:00 Pulse Rate 97 H 10/15/17 12:00 Respiratory Rate 17 10/15/17 12:00 Blood Pressure 168/96 10/15/17 12:00 O2 Sat by Pulse Oximetry (%) 100 10/15/17 12:54 Lab Results WBC 10.5 K/mm3 (4.0-10.0) H 10/15/17 05:00 RBC 2.56 M/mm3 (4.00-5.60) L 10/15/17 05:00 Hgb 7.5 GM/dL (11.7-16.9) L 10/15/17 05:00 Hct 22.0 % (35.4-49) L 10/15/17 05:00 MCV 85.9 fl (80-96) 10/15/17 05:00 MCHC 34.4 g/dl (32.0-35.9) 10/15/17 05:00 RDW 17.1 % (11.9-15.9) H 10/15/17 05:00 Plt Count 303 K/MM3 (134-434) 10/15/17 05:00 Sodium 141 mmol/L (136-145) 10/15/17 05:00 Potassium 3.4 mmol/L (3.5-5.1) L 10/15/17 05:00 Chloride 109 mmol/L (98-107) H 10/15/17 05:00 Carbon Dioxide 21 mmol/L (21-32) 10/15/17 05:00 Anion Gap 11 (8-16) 10/15/17 05:00 BUN 65 mg/dL (7-18) H 10/15/17 05:00 Creatinine 2.8 mg/dL (0.7-1.3) H 10/15/17 05:00 Random Glucose 97 mg/dL (74-106) 10/15/17 05:00 Calcium 8.2 mg/dL (8.5-10.1) L 10/15/17 05:00 Blood Type O NEGATIVE 10/10/17 08:25 Antibody Screen Negative 10/10/17 08:25 INR 1.14 (0.82-1.09) D 10/03/17 05:22 US reviewed; labs reviewed IMP: abdominal pain ? resolved of ? origin PLAN: Doubt rising alk phos is secondary to GB disease in absence of cholelithiasis and/or acute cholecystitis; no intra/extrahepatic dilated ducts and doubt acalculous cholecystitis in this patient w/o elevated temp and WBC and w/o critical illness at this time awaiting xfer to a LTCF; would restart feeds and observe; no indication for surgical intervention or further w/u. Deejay Carrizales MD FACS Visit type - Case Type Case Type: ED Admission - Emergency Emergency Visit: Yes ED Registration Date: 08/31/17 Care time: The patient presented to the Emergency Department on the above date and was hospitalized for further evaluation of their emergent condition. - New patient This patient is new to me today: Yes Date on this admission: 10/15/17 - Critical Care Total Critical Care Time: 25
--- NOTE | 2017-10-15 13:10 | DS ---
Physical Exam: SUBJECTIVE: The patient is a 67M with a PMH of EtOH abuse and HTN. The patient has had multiple intubations during his ICU stay and no longer requiring sedation, and is comfortable and trached. The patient is now able to talk and states that he feels like he is not getting oxygen (O2 sat 98-100%). He is more interactive and responsive. No events overnight, although he did become slightly agitated. OBJECTIVE: Vital Signs Period Temp Pulse Resp BP Sys/Jeff Pulse Ox Last 24 Hr 98.1 F-99.8 F 73-97 16-24 118-169/72-104 98-100 PHYSICAL EXAM GENERAL: The patient is awake, alert, and fully oriented, in no acute distress. HEAD: Normal with no signs of trauma. EYES: PERRL, extraocular movements intact, sclera anicteric, conjunctiva clear. ENT: Ears normal, nares patent, oropharynx clear without exudates, moist mucous membranes. NECK: Trachea midline, full range of motion, supple. LUNGS: Breath sounds equal, clear to auscultation bilaterally, no wheezes, no crackles, no accessory muscle use. HEART: Regular rate and rhythm, S1, S2 without murmur, rub or gallop. ABDOMEN: Soft, nontender, nondistended, normoactive bowel sounds, no guarding, no rebound, no hepatosplenomegaly, no masses. EXTREMITIES: 2+ pulses, warm, well-perfused, no edema. NEUROLOGICAL: Cranial nerves II through XII grossly intact. Normal speech, gait not observed. PSYCH: Normal mood, normal affect. SKIN: Warm, dry, normal turgor, no rashes or lesions noted. LABS Laboratory Results - last 24 hr 10/15/17 10/15/17 10/15/17 05:00 05:00 05:00 WBC 10.5 H RBC 2.56 L Hgb 7.5 L Hct 22.0 L MCV 85.9 MCH 29.5 MCHC 34.4 RDW 17.1 H Plt Count 303 MPV 6.2 L Neutrophils % 66.4 Lymphocytes % 11.4 D Monocytes % 10.4 H Eosinophils % 10.5 H Basophils % 1.3 Sodium 141 Potassium 3.4 L Chloride 109 H Carbon Dioxide 21 Anion Gap 11 BUN 65 H Creatinine 2.8 H Creat Clearance w eGFR 22.65 Random Glucose 97 Calcium 8.2 L Magnesium 1.8 Total Bilirubin 0.7 GGT 761 H Cancelled AST 61 H ALT 35 Alkaline Phosphatase 959 H Total Protein 7.5 Albumin 1.9 L Lipase 166 Vancomycin Pre-Dose 10/15/17 06:00 WBC RBC Hgb Hct MCV MCH MCHC RDW Plt Count MPV Neutrophils % Lymphocytes % Monocytes % Eosinophils % Basophils % Sodium Potassium Chloride Carbon Dioxide Anion Gap BUN Creatinine Creat Clearance w eGFR Random Glucose Calcium Magnesium Total Bilirubin GGT AST ALT Alkaline Phosphatase Total Protein Albumin Lipase Vancomycin Pre-Dose 16.032 H* D HOSPITAL COURSE: Date of Admission:08/31/17 Date of Discharge: 10/15/17 The patient is a 67M with a PMH of EtOH abuse who presented to the ED in respiratory distress and questionable aspiration PNA. The patient was intubated for airway protection. He was extubated on 09/19, then reintubated and extubated on 09/27, then reintubated on 10/01. He tolerated a tracheostomy procedure on . His medical course is significant for pneumonia and osteomyelitis. He is currently receiving vancomycin for his osteo and was receiving aztreonam for PNA. His renal function has slowly been improving over the course of his ICU stay. He also had a rising alk phos, with a negative RUQ for acute cholecystitis. He is able to talk today with a valve. His only acute complaint is feeling like he is not getting oxygen. However, his O2 saturation is between 98-100%. He receives PEG tube feeding per dietetics. Overnight, he complained of abdominal pain when his tube feed was restarted, could be secondary to constipation. I have discontinued his iron and added miralax for relief. Discharge Summary Reason For Visit: ALCOHOL WITHDRAWAL SYSDRONE, HYPONATREMIA Current Active Problems Acute diastolic heart failure (Acute) Acute kidney injury (Acute) Alkaline phosphatase elevation (Acute) Anemia (Acute) Discitis of cervicothoracic region (Acute) Failure to thrive in adult (Acute) Gastric ulcer (Acute) History of alcohol abuse (Acute) Hypernatremia (Acute) Hypokalemia (Acute) Hyponatremia (Acute) Oral bleeding (Acute) Paroxysmal atrial fibrillation (Acute) Pneumonia (Acute) Rectal bleeding (Acute) Rectal ulcer (Acute) Respiratory failure with hypoxia (Acute) Staphylococcal pneumonia (Acute) Staphylococcus aureus bacteremia (Acute) Status post insertion of percutaneous endoscopic gastrostomy (PEG) tube (Acute) Status post tracheostomy (Acute) Withdrawal symptoms, alcohol (Acute) Condition: Guarded - Instructions Diet, Activity, Other Instructions: RECOMMENDATIONS: The patient is a 67M with a PMH of EtOH abuse and HTN who presented with aspiration PNA and concern for osteo. He was getting aztreonam for PNA and vancomycin (renally dosed) for osteo/HCAP. Aztreonam d/c. Pt has MRSA bacteremia. Notable course: he had worsening respiratory failure requiring 3 intubations, then a tracheostomy. Please continue to wean off the vent. Follow up with alk. phos, as there is a concern for worsening osteo vs hepatic biliary stasis. U/S on 10/14/17 negative for acute cholecystitis. NEW MEDICATIONS: Continue to renally dose vancomycin. Dilauded 1mg q4 PRN for pain control. Continue laxatives for constipation. Seroquel for agitation. FOLLOW-UPS: - Please see your Check Services Clerk in 1-2 weeks for your ulcer biopsies results (biopsy 09/10/[address] Archie Pablo) - Please follow up with your manager deli, Dr. Griffin. - Please follow up with your infectious disease specialist, Dr. Cifuentes, for treatment of osteomyelitis. Referrals: Remi Cifuentes MD [Staff Physician] - Archie Pablo MD [Staff Physician] - Rickey Griffin MD [Staff Physician] - Sadaf Webber MD [Staff Physician] - Disposition: LONGTERM FACILITY - Home Medications Comprehensive Discharge Medication List: Ambulatory Orders Amiodarone HCl [Cordarone -] 200 mg PEG DAILY tablet 10/15/17 Folic Acid - 1 mg PO DAILY tablet 10/15/17 Hydromorphone Injection [Dilaudid Injection -] 1 mg IVPUSH Q4H PRN disp.syrin MDD 6 10/15/17 Metoprolol Tartrate [Lopressor -] 50 mg PEG TID tablet 10/15/17 Mupirocin Cream [Bactroban 2% Cream -] 1 applic TP BID tube 10/15/17 Quetiapine Fumarate [Seroquel -] 25 mg PEG HS tablet 10/15/17 Thiamine HCl [Vitamin B1 -] 100 mg PO DAILY tablet 10/15/17 This patient is new to me today: No Emergency Visit: Yes ED Registration Date: 08/31/17 Care time: The patient presented to the Emergency Department on the above date and was hospitalized for further evaluation of their emergent condition. Critical Care patient: Yes Total Critical Care Time (in minutes): 55 Critical Care Statement: The care of this patient involved high complexity decision making to prevent further life threatening deterioration of the patient 's condition and/or to evaluate & treat vital organ system(s) failure or risk of failure. - Discharge Referral Referred to [facility] No
--- NOTE | 2017-10-15 13:54 | PN ---
Progress Note, Physician History of Present Illness: Awake, alert Afebrile Surgical evaluation for abdominal pain/ elevated AP noted - Current Medication List Current Medications: Active Medications Acetaminophen (Tylenol -) 650 mg PO Q6H PRN PRN Reason: FEVER OR PAIN Last Admin: 10/14/17 20:35 Dose: 650 mg Amiodarone HCl (Cordarone -) 200 mg PEG DAILY [facility] Last Admin: 10/15/17 09:09 Dose: 200 mg Docusate Sodium (Colace Liquid -) 300 mg PEG DAILY PRN PRN Reason: CONSTIPATION Last Admin: 10/15/17 10:18 Dose: 300 mg Folic Acid (Folic Acid -) 1 mg PO DAILY [facility] Last Admin: 10/15/17 09:09 Dose: 1 mg Hydromorphone HCl (Dilaudid Injection -) 1 mg IVPUSH Q4H PRN PRN Reason: PAIN Last Admin: 10/15/17 12:51 Dose: 1 mg Famotidine/Sodium Chloride (Pepcid 20 Mg Premixed Ivpb -) 20 mg in 50 mls @ 100 mls/hr IVPB BID [facility] Last Admin: 10/15/17 09:09 Dose: 100 mls/hr Metoprolol Tartrate (Lopressor Injection -) 5 mg IVPUSH Q6H PRN PRN Reason: HYPERTENSION Last Admin: 10/13/17 18:19 Dose: 5 mg Metoprolol Tartrate (Lopressor -) 50 mg PEG TID [facility] Last Admin: 10/15/17 13:16 Dose: 50 mg Multivitamins/Minerals (Theragran-M) 1 each PO DAILY [facility] Last Admin: 10/15/17 09:09 Dose: 1 each Nystatin (Mycostatin Cream -) 1 applic TP Q6HPO [facility] Last Admin: 10/15/17 12:34 Dose: 1 applic Quetiapine Fumarate (Seroquel -) 25 mg PEG DAILY [facility] Last Admin: 10/15/17 09:09 Dose: 25 mg Quetiapine Fumarate (Seroquel -) 25 mg PEG HS [facility] Last Admin: 10/14/17 21:42 Dose: Not Given Senna (Senna Oral Solution -) 8.8 mg PEG HS [facility] Last Admin: 10/15/17 06:27 Dose: 8.8 mg Sevelamer Carbonate (Renvela Powder Packet -) 0.8 gm PEG TIDCM [facility] Last Admin: 10/15/17 13:00 Dose: 0.8 gm Thiamine HCl (Vitamin B1 -) 100 mg PO DAILY [facility] Last Admin: 10/15/17 09:10 Dose: 100 mg - Objective Vital Signs: Vital Signs Temperature 98.5 F 10/15/17 12:00 Pulse Rate 97 H 10/15/17 12:00 Respiratory Rate 17 10/15/17 12:00 Blood Pressure 168/96 10/15/17 12:00 O2 Sat by Pulse Oximetry (%) 100 10/15/17 12:54 Constitutional: Yes: No Distress Cardiovascular: Yes: Regular Rate and Rhythm, S1, S2 Respiratory: Yes: Mechanically Ventilated Gastrointestinal: Yes: Normal Bowel Sounds, Soft. No: Tenderness Labs: CBC, BMP 10/15/17 05:00 10/15/17 05:00 INR, PTT INR 1.14 (0.82-1.09) D 10/03/17 05:22 Assessment/Plan MSSA bacteremia Vertebral osteo T9T10 Resp failure S/P trach Possible aspiration pneumonia Hx ETOH abuse Azotemia ? AIN secondary to B-lactam Continue vancomycin. Day #39/56 antistaph treatment for MSSA bacteremia/ vertebral osteomyelitis
--- NOTE | 2017-10-15 14:23 | PN ---
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 Voice quality much improved. Pennding transfer to [facility]. If still at [facility] tomorrow, suggest MBS to assess swallowing function, for possible PO trials. If discharged, recommend MBS as out pt to initiate PO trials with safety. Sp/sw f/u at [place].
--- NOTE | 2017-10-15 14:32 | PN ---
Teaching Attending Note Name of Resident: Vipul Rice ATTENDING PHYSICIAN STATEMENT I saw and evaluated the patient. I reviewed the resident's note and discussed the case with the resident. I agree with the resident's findings and plan as documented. SUBJECTIVE: Patient seen and examined in the ICU. Vented on volume assist control. Awake and interactive. Pleuritic type CP and discomfort at the Trach site is better. No pressors. Noted elevated Alk Phos. OBJECTIVE: Intake & Output 10/12/17 10/13/17 10/14/17 10/15/17 23:59 23:59 23:59 23:59 Intake Total 2600 1630 1646 600 Balance 2600 1630 1646 600 Weight 188 lb 2 oz 186 lb 4.65 oz 182 lb 185 lb 8 oz Last Vital Signs Temp Pulse Resp BP Pulse Ox 98.0 F 76 16 134/94 100 10/15/17 14:00 10/15/17 14:00 10/15/17 14:00 10/15/17 14:00 10/15/17 12:54 Active Medications Acetaminophen (Tylenol -) 650 mg PO Q6H PRN PRN Reason: FEVER OR PAIN Last Admin: 10/14/17 20:35 Dose: 650 mg Amiodarone HCl (Cordarone -) 200 mg PEG DAILY [facility] Last Admin: 10/15/17 09:09 Dose: 200 mg Docusate Sodium (Colace Liquid -) 300 mg PEG DAILY PRN PRN Reason: CONSTIPATION Last Admin: 10/15/17 10:18 Dose: 300 mg Folic Acid (Folic Acid -) 1 mg PO DAILY [facility] Last Admin: 10/15/17 09:09 Dose: 1 mg Hydromorphone HCl (Dilaudid Injection -) 1 mg IVPUSH Q4H PRN PRN Reason: PAIN Last Admin: 10/15/17 12:51 Dose: 1 mg Famotidine/Sodium Chloride (Pepcid 20 Mg Premixed Ivpb -) 20 mg in 50 mls @ 100 mls/hr IVPB BID [facility] Last Admin: 10/15/17 09:09 Dose: 100 mls/hr Metoprolol Tartrate (Lopressor Injection -) 5 mg IVPUSH Q6H PRN PRN Reason: HYPERTENSION Last Admin: 10/13/17 18:19 Dose: 5 mg Metoprolol Tartrate (Lopressor -) 50 mg PEG TID [facility] Last Admin: 10/15/17 13:16 Dose: 50 mg Multivitamins/Minerals (Theragran-M) 1 each PO DAILY [facility] Last Admin: 10/15/17 09:09 Dose: 1 each Nystatin (Mycostatin Cream -) 1 applic TP Q6HPO [facility] Last Admin: 10/15/17 12:34 Dose: 1 applic Quetiapine Fumarate (Seroquel -) 25 mg PEG DAILY [facility] Last Admin: 10/15/17 09:09 Dose: 25 mg Quetiapine Fumarate (Seroquel -) 25 mg PEG HS [facility] Last Admin: 10/14/17 21:42 Dose: Not Given Senna (Senna Oral Solution -) 8.8 mg PEG HS [facility] Last Admin: 10/15/17 06:27 Dose: 8.8 mg Sevelamer Carbonate (Renvela Powder Packet -) 0.8 gm PEG TIDCM [facility] Last Admin: 10/15/17 13:00 Dose: 0.8 gm Thiamine HCl (Vitamin B1 -) 100 mg PO DAILY [facility] Last Admin: 10/15/17 09:10 Dose: 100 mg Gen: awake, Trach, vented Heart: S1S2, irregular Lung: scattered rhonchi Abd: soft, nontender Ext: no edema Laboratory Results - last 24 hr 10/15/17 10/15/17 10/15/17 05:00 05:00 05:00 WBC 10.5 H RBC 2.56 L Hgb 7.5 L Hct 22.0 L MCV 85.9 MCH 29.5 MCHC 34.4 RDW 17.1 H Plt Count 303 MPV 6.2 L Neutrophils % 66.4 Lymphocytes % 11.4 D Monocytes % 10.4 H Eosinophils % 10.5 H Basophils % 1.3 Sodium 141 Potassium 3.4 L Chloride 109 H Carbon Dioxide 21 Anion Gap 11 BUN 65 H Creatinine 2.8 H Creat Clearance w eGFR 22.65 Random Glucose 97 Calcium 8.2 L Magnesium 1.8 Total Bilirubin 0.7 GGT 761 H Cancelled AST 61 H ALT 35 Alkaline Phosphatase 959 H Total Protein 7.5 Albumin 1.9 L Lipase 166 Vancomycin Pre-Dose 10/15/17 06:00 WBC RBC Hgb Hct MCV MCH MCHC RDW Plt Count MPV Neutrophils % Lymphocytes % Monocytes % Eosinophils % Basophils % Sodium Potassium Chloride Carbon Dioxide Anion Gap BUN Creatinine Creat Clearance w eGFR Random Glucose Calcium Magnesium Total Bilirubin GGT AST ALT Alkaline Phosphatase Total Protein Albumin Lipase Vancomycin Pre-Dose 16.032 H* D ASSESSMENT AND PLAN: Acute Hypoxic Respiratory Failure Pneumonia MSSA Bacteremia Loculated Pleural Effusions LV Diastolic Dysfunction Paroxysmal Atrial Fibrillation Acute Kidney Injury GI Bleed Acute Blood Loss Anemia Cellulitis - ABX per ID - Normal transfusion thresholds - protonix - O2 to keep SpO2 >90% - enteral feeds - Spontaneous breathing trials as tolerated - DVT/GI prophylaxis - Workup of elevated Alk Phos ongoing - D/C planning Dr Griffin Critical care time spent in reviewing chart, evaluating patient and formulating plan 35 min
--- NOTE | 2017-10-15 15:43 | PN ---
Physical Exam: SUBJECTIVE: Patient seen and examined at bedside. Patient is still awake and responsive. He is unable to speak due to trach and being ventilated, but mouths words and can understand conversation. He states that he is thirsty and has mild abdominal pain. Patient points to right side of abdomen. OBJECTIVE: Vital Signs Period Temp Pulse Resp BP Sys/Jeff Pulse Ox Last 24 Hr 98.0 F-99.5 F 76-97 16-24 118-169/72-104 98-100 GENERAL: off sedation, awake and alert and responding to commands ENT: nares patent without signs of bleeding from nose or trach tube LUNGS: patient is trached, mechanical breath sounds, b/l rhonchi noted HEART: regular rate/rhythm, normal S1/S2 ABDOMEN: Soft, tender to palpation in the RUQ EXTREMITIES: 2+ pulses, 1+ pitting edema Lower>Upper SKIN: No acute abnormalities Laboratory Results - last 24 hr 10/15/17 10/15/17 10/15/17 05:00 05:00 05:00 WBC 10.5 H RBC 2.56 L Hgb 7.5 L Hct 22.0 L MCV 85.9 MCH 29.5 MCHC 34.4 RDW 17.1 H Plt Count 303 MPV 6.2 L Neutrophils % 66.4 Lymphocytes % 11.4 D Monocytes % 10.4 H Eosinophils % 10.5 H Basophils % 1.3 Sodium 141 Potassium 3.4 L Chloride 109 H Carbon Dioxide 21 Anion Gap 11 BUN 65 H Creatinine 2.8 H Creat Clearance w eGFR 22.65 Random Glucose 97 Calcium 8.2 L Magnesium 1.8 Total Bilirubin 0.7 GGT 761 H Cancelled AST 61 H ALT 35 Alkaline Phosphatase 959 H Total Protein 7.5 Albumin 1.9 L Lipase 166 Vancomycin Pre-Dose 10/15/17 06:00 WBC RBC Hgb Hct MCV MCH MCHC RDW Plt Count MPV Neutrophils % Lymphocytes % Monocytes % Eosinophils % Basophils % Sodium Potassium Chloride Carbon Dioxide Anion Gap BUN Creatinine Creat Clearance w eGFR Random Glucose Calcium Magnesium Total Bilirubin GGT AST ALT Alkaline Phosphatase Total Protein Albumin Lipase Vancomycin Pre-Dose 16.032 H* D Active Medications Generic Name Dose Route Start Last Admin Trade Name Freq PRN Reason Stop Dose Admin Acetaminophen 650 mg 10/09/17 05:31 10/14/17 20:35 Tylenol - PO 650 mg Q6H PRN Administration FEVER OR PAIN Amiodarone HCl 200 mg 10/04/17 16:45 10/15/17 09:09 Cordarone - PEG 200 mg DAILY [facility] Administration Docusate Sodium 300 mg 10/15/17 05:36 10/15/17 10:18 Colace Liquid - PEG 300 mg DAILY PRN Administration CONSTIPATION Folic Acid 1 mg 09/02/17 10:00 10/15/17 09:09 Folic Acid - PO 1 mg DAILY [facility] Administration Hydromorphone HCl 1 mg 10/15/17 12:01 10/15/17 12:51 Dilaudid Injection - IVPUSH 1 mg Q4H PRN Administration PAIN Famotidine/Sodium Chloride 20 mg in 50 mls @ 100 mls/hr 09/28/17 10:00 09:09 Pepcid 20 Mg Premixed Ivpb - IVPB 100 mls/hr BID [facility] Administration Metoprolol Tartrate 5 mg 10/02/17 16:47 10/13/17 18:19 Lopressor Injection - IVPUSH 5 mg Q6H PRN Administration HYPERTENSION Metoprolol Tartrate 50 mg 10/11/17 22:00 10/15/17 13:16 Lopressor - PEG 50 mg TID [facility] Administration Multivitamins/Minerals 1 each 09/02/17 10:00 10/15/17 09:09 Theragran-M PO 1 each DAILY [facility] Administration Nystatin 1 applic 10/12/17 11:30 10/15/17 12:34 Mycostatin Cream - TP 1 applic Q6HPO [facility] Administration Quetiapine Fumarate 25 mg 10/13/17 00:15 10/15/17 09:09 Seroquel - PEG 25 mg DAILY [facility] Administration Quetiapine Fumarate 25 mg 10/14/17 20:30 10/14/17 21:42 Seroquel - PEG Not Given HS [facility] Senna 8.8 mg 10/15/17 05:45 10/15/17 06:27 Senna Oral Solution - PEG 8.8 mg HS [facility] Administration Sevelamer Carbonate 0.8 gm 10/05/17 08:16 10/15/17 13:00 Renvela Powder Packet - PEG 0.8 gm TIDCM [facility] Administration Thiamine HCl 100 mg 09/02/17 10:00 10/15/17 09:10 Vitamin B1 - PO 100 mg DAILY [facility] Administration ASSESSMENT/PLAN: 66yo man with PMH of EtOH abuse and HTN who is admitted (08/31) for acute hypoxic respiratory failure requiring mechanical ventilation (09/02-09/19, 09/24- , 10/01-). Continues to have cavitary PNA with loculated effusions bilaterally and acute thoracic osteomyletitis (T9-T10), currently on Vancomycin (renally dosed). Renal function improving, and maintaining UOP. s/p PEG and getting tube feeds. Patient is s/p tracheostomy on 10/09. #sepsis 2/2 cavitary PNA, acute osteomyelitis, s/p MSSA bacteremia -ID following, long-term abx needed for acute osteomyelitis (6-8 wks), antibiotics day#38 -Vancomycin 500mg IV will need outpatient every day -patient is s/p tracheostomy with vent management per ICU team -fentanyl sedation tapered to 25mcgs @ 5cc/hr, take off fentanyl and monitor. Take off mittens -s/p 9 transfusions #acute hypoxic respiratory failure -Vent mgmt per ICU team -s/p trach #ARF, Renal following -Ferrous Sulfate 325 mg PEG DAILY and Sevelamer Carbonate (Renvela) 800 mg PEG TID -Strict I&Os, hines, Renal dose for meds -renal function improving #Elevated Alkaline Phosphatase -RUQ ultrasound suspicious for hydrops gallbladder but no evidence of acute gallbladder dz -GGT also elevated -surgery consult Dr. Carrizales appreciated, surgery does not recommend any acute intervention at this time -outpatient surgical followup is recommended #Acute blood loss anemia -s/p 8Ux PRBCs, Hgb stable at 7.9 today -Trend H&H, transfuse Hgb<7 #Atrial fibrillation - controlled, patient was tachycardic last night -Cardiology following -metoprolol for control -continue Amiodarone 200mg PEG qd for rate control -hold AC now given co-morbidities (CHADVASC 2) #Chronic Diastolic heart failure -ECHO 09/02/2017 probable preserved LV function, but can't R/O regional wall motion abnormality -increase metoprolol 50mg PEG BID and 5mg IV Q6H PRN #EtOH abuse -No signs of withdrawal -MVI, thiamine 100mg PEG qd, folic acid 1mg PEG daily #FEN -No current standing fluids -Low potassium today, replete electrolytes as necessary -Enteral feeds via PEG with free water flushes #PPX -Heparin 5000U SQ BID -GI - pepcid 20mg IV BID #Dispo: -patient was discharged by ICU team to [facility] care facility today Visit type - Emergency Visit Emergency Visit: No - New Patient This patient is new to me today: No - Critical Care Critical Care patient: Yes Total Critical Care Time (in minutes): 35 Critical Care Statement: The care of this patient involved high complexity decision making to prevent further life threatening deterioration of the patient 's condition and/or to evaluate & treat vital organ system(s) failure or risk of failure.
[2017-10-15 16:24] VITALS: BP 141/90; PULSE 89; TEMP 97.8
--- NOTE | 2017-10-15 16:39 | PN ---
Progress Note, Physician History of Present Illness: Pt seen and examined at bedside. He is awake and alert. He has the speaking valve on and is able to converse. He remains in the ICU and remains on vent. - Current Medication List Current Medications: Active Medications Acetaminophen (Tylenol -) 650 mg PO Q6H PRN PRN Reason: FEVER OR PAIN Last Admin: 10/14/17 20:35 Dose: 650 mg Amiodarone HCl (Cordarone -) 200 mg PEG DAILY [facility] Last Admin: 10/15/17 09:09 Dose: 200 mg Docusate Sodium (Colace Liquid -) 300 mg PEG DAILY PRN PRN Reason: CONSTIPATION Last Admin: 10/15/17 10:18 Dose: 300 mg Folic Acid (Folic Acid -) 1 mg PO DAILY [facility] Last Admin: 10/15/17 09:09 Dose: 1 mg Hydromorphone HCl (Dilaudid Injection -) 1 mg IVPUSH Q4H PRN PRN Reason: PAIN Last Admin: 10/15/17 12:51 Dose: 1 mg Famotidine/Sodium Chloride (Pepcid 20 Mg Premixed Ivpb -) 20 mg in 50 mls @ 100 mls/hr IVPB BID [facility] Last Admin: 10/15/17 09:09 Dose: 100 mls/hr Metoprolol Tartrate (Lopressor Injection -) 5 mg IVPUSH Q6H PRN PRN Reason: HYPERTENSION Last Admin: 10/13/17 18:19 Dose: 5 mg Metoprolol Tartrate (Lopressor -) 50 mg PEG TID [facility] Last Admin: 10/15/17 13:16 Dose: 50 mg Multivitamins/Minerals (Theragran-M) 1 each PO DAILY [facility] Last Admin: 10/15/17 09:09 Dose: 1 each Nystatin (Mycostatin Cream -) 1 applic TP Q6HPO [facility] Last Admin: 10/15/17 12:34 Dose: 1 applic Quetiapine Fumarate (Seroquel -) 25 mg PEG DAILY [facility] Last Admin: 10/15/17 09:09 Dose: 25 mg Quetiapine Fumarate (Seroquel -) 25 mg PEG HS [facility] Last Admin: 10/14/17 21:42 Dose: Not Given Senna (Senna Oral Solution -) 8.8 mg PEG HS [facility] Last Admin: 10/15/17 06:27 Dose: 8.8 mg Sevelamer Carbonate (Renvela Powder Packet -) 0.8 gm PEG TIDCM [facility] Last Admin: 10/15/17 13:00 Dose: 0.8 gm Thiamine HCl (Vitamin B1 -) 100 mg PO DAILY [facility] Last Admin: 10/15/17 09:10 Dose: 100 mg - Objective Vital Signs: Vital Signs Temperature 97.8 F 10/15/17 16:00 Pulse Rate 89 10/15/17 16:00 Respiratory Rate 16 10/15/17 16:00 Blood Pressure 141/90 10/15/17 16:00 O2 Sat by Pulse Oximetry (%) 100 10/15/17 12:54 Constitutional: Yes: Calm Eyes: Yes: Conjunctiva Clear HENT: Yes: Atraumatic Neck: Yes: Other (trache) Cardiovascular: Yes: S1, S2 Respiratory: Yes: Mechanically Ventilated Gastrointestinal: Yes: Normal Bowel Sounds, Soft Genitourinary: Yes: Incontinence Musculoskeletal: Yes: Muscle Weakness Edema: Yes Edema: LUE: Trace, RUE: Trace, LLE: Trace, RLE: Trace Neurological: Yes: Oriented Psychiatric: Yes: Oriented Labs: CBC, BMP 10/15/17 05:00 10/15/17 05:00 INR, PTT INR 1.14 (0.82-1.09) D 10/03/17 05:22 Problem List - Problems (1) Abuse, drug or alcohol Code(s): F19.10 - OTHER PSYCHOACTIVE SUBSTANCE ABUSE, UNCOMPLICATED (2) Withdrawal symptoms, alcohol Code(s): F10.239 - ALCOHOL DEPENDENCE WITH WITHDRAWAL, UNSPECIFIED Qualifiers: Complication of substance-induced condition: uncomplicated Qualified Code(s ): F10.230 - Alcohol dependence with withdrawal, uncomplicated (3) Hyponatremia Code(s): E87.1 - HYPO-OSMOLALITY AND HYPONATREMIA (4) Respiratory failure with hypoxia Code(s): J96.91 - RESPIRATORY FAILURE, UNSPECIFIED WITH HYPOXIA Qualifiers: Chronicity: acute Qualified Code(s): J96.01 - Acute respiratory failure with hypoxia (5) Staphylococcus aureus bacteremia Code(s): R78.81 - BACTEREMIA (6) Acute kidney injury Code(s): N17.9 - ACUTE KIDNEY FAILURE, UNSPECIFIED (7) Anemia Code(s): D64.9 - ANEMIA, UNSPECIFIED Qualifiers: Anemia type: unspecified type Qualified Code(s): D64.9 - Anemia, unspecified Assessment/Plan Current Medications Generic Name Dose Route Start Last Admin Trade Name Freq PRN Reason Stop Dose Admin Acetaminophen 650 mg 10/09/17 05:31 10/14/17 20:35 Tylenol - PO 650 mg Q6H PRN Administration FEVER OR PAIN Amiodarone HCl 200 mg 10/04/17 16:45 10/15/17 09:09 Cordarone - PEG 200 mg DAILY [facility] Administration Docusate Sodium 300 mg 10/15/17 05:36 10/15/17 10:18 Colace Liquid - PEG 300 mg DAILY [facility]N Administration CONSTIPATION Folic Acid 1 mg 09/02/17 10:00 10/15/17 09:09 Folic Acid - PO 1 mg DAILY [facility] Administration Hydromorphone HCl 1 mg 10/15/17 12:01 10/15/17 12:51 Dilaudid Injection - IVPUSH 1 mg Q4H PRN Administration PAIN Famotidine/Sodium Chloride 20 mg in 50 mls @ 100 mls/hr 09/28/17 10:00 09:09 Pepcid 20 Mg Premixed Ivpb - IVPB 100 mls/hr BID [facility] Administration Metoprolol Tartrate 5 mg 10/02/17 16:47 10/13/17 18:19 Lopressor Injection - IVPUSH 5 mg Q6H PRN Administration HYPERTENSION Metoprolol Tartrate 50 mg 10/11/17 22:00 10/15/17 13:16 Lopressor - PEG 50 mg TID [facility] Administration Multivitamins/Minerals 1 each 09/02/17 10:00 10/15/17 09:09 Theragran-M PO 1 each DAILY [facility] Administration Nystatin 1 applic 10/12/17 11:30 10/15/17 12:34 Mycostatin Cream - TP 1 applic Q6HPO [facility] Administration Quetiapine Fumarate 25 mg 10/13/17 00:15 10/15/17 09:09 Seroquel - PEG 25 mg DAILY [facility] Administration Quetiapine Fumarate 25 mg 10/14/17 20:30 10/14/17 21:42 Seroquel - PEG Not Given HS [facility] Senna 8.8 mg 10/15/17 05:45 10/15/17 06:27 Senna Oral Solution - PEG 8.8 mg HS [facility] Administration Sevelamer Carbonate 0.8 gm 10/05/17 08:16 10/15/17 13:00 Renvela Powder Packet - PEG 0.8 gm TIDCM [facility] Administration Thiamine HCl 100 mg 09/02/17 10:00 10/15/17 09:10 Vitamin B1 - PO 100 mg DAILY [facility] Administration Impression 1. ALEXANDRA 2. fluid overload 3. hypoalbuminemia 4. respiratory failure requiring intubation 5. anemia 6. etoh abuse 7. fevers 8. hypokalemia 9. pleural effusion 10. hypernatremia 11. GI bleed 12. rash Plan - renal function is stabilizing - cont with feeds - check mag - replace potassium - vent support - lasix prn - will follow Dr Peres
--- NOTE | 2017-10-15 18:09 | PN ---
Teaching Attending Note Name of Resident: Blair White ATTENDING PHYSICIAN STATEMENT I saw and evaluated the patient. I reviewed the resident's note and discussed the case with the resident. I agree with the resident's findings and plan as documented. pt was evaluated at 0900 this Am SUBJECTIVE:c/o RUQ pain this AM. denies Cp or SOB OBJECTIVE: Last Vital Signs Temp Pulse Resp BP Pulse Ox 97.8 F 89 16 141/90 100 10/15/17 16:00 10/15/17 16:00 10/15/17 16:00 10/15/17 16:00 10/15/17 12:54 General NAD CV S1 S2 RRR no murmur/rub/gallop Lungs CTA B/L anteriorly Abdomen +RUQ tenderness no rebound or guarding ASSESSMENT AND PLAN: 66 yo M with PMH alcohol abuse, HTN who presented to the ER after being found on the floor. 1. Acute hypoxic respiratory failure- likely due to cavitary PNA. s/p extubated 09/19 and re-intubated and extubated 09/27. re-intubated 10/01. s/p trach on . cont to titrate down requirements as tolerated. 2. Sepsis secondary to cavitary healthcare-associated pneumonia, MSSA bacteremia and vertebral OM- with complicated loculated effusion. s/p chest tube removed. on vanco by level. will need 6-8w abx for OM. CT surgery and ID on board 3. New onset afib-rate controlled. on amio po. anticoagulation on hold due to medical problems. should ideally be on coumadin once improved. 4. Acute kidney injury with hyperphosphatemia-stabilizing. no indication for emergent HD, may require if does not improve. on renelva. Nephrology on board. 5. Anemia- s/p 8 units PRBC this admission. Hgb overall stable. no indication for txn. on iron supplementations. 6. RUQ tenderness- in setting of sudden increase in alk phos. U/s showing hydrops of the gallbladder which can be physiologic however can be concerning for acaclylous cholecystitis. however clinically pt appears non-toxic and afebrile. check GGT. 7. Hypokalemia-Kcl peg 8. Hypomagnesemia- resolved 9. Thrombocytopenia- Secondary to alcohol, splenomegaly. now stable 10. HTN- initially hypotensive. now off pressors. cont medications 11. Continue alcohol dependence- Continue thiamine, folic acid, multivitamin 12. Chronic right subdural hematoma 13. DVT prophylaxis- heparin sq 14. Dysphagia-likely due to weakness. s/p PEG placement 10/03. tolerating feeds. GI on board 15.was denied by LTAC facility due to being homeless. possible transfer to SNF. can go to PCU The care of this patient involved high complexity decision making to prevent further life threatening deterioration of the patient's condition and/or to evaluate & treat vital organ system(s) failure or risk of failure. 38 mins
== END 2017-10-15 16:44 | DRG 4 ==
LOC: JER 12:35 → JERBED 18:36 → J2W 09-01 04:55 → JICU 09-02 01:51
PROVIDERS: ADMIT Internal Medicine; ATTEND Internal Medicine
PROC: 5A1955Z Respiratory Ventilation, Greater than 96 Consecutive Hours (ICD-10-PCS; 2017-09-02)
PROC: 0BH17EZ Insertion of Endotracheal Airway into Trachea, Via Natural or Artificial Opening (ICD-10-PCS; 2017-09-02)
PROC: 0W993ZX Drainage of Right Pleural Cavity, Percutaneous Approach, Diagnostic (ICD-10-PCS; 2017-09-08)
PROC: 30233N1 Transfusion of Nonautologous Red Blood Cells into Peripheral Vein, Percutaneous Approach (ICD-10-PCS; 2017-09-10)
PROC: 0DD68ZX Extraction of Stomach, Via Natural or Artificial Opening Endoscopic, Diagnostic (ICD-10-PCS; 2017-09-11)
PROC: B246ZZ4 Ultrasonography of Right and Left Heart, Transesophageal (ICD-10-PCS; 2017-09-17)
PROC: 30233R1 Transfusion of Nonautologous Platelets into Peripheral Vein, Percutaneous Approach (ICD-10-PCS; 2017-10-01)
PROC: 0DH63UZ Insertion of Feeding Device into Stomach, Percutaneous Approach (ICD-10-PCS; 2017-10-03)
PROC: 0BJ08ZZ Inspection of Tracheobronchial Tree, Via Natural or Artificial Opening Endoscopic (ICD-10-PCS; 2017-10-09)
PROC: 0B113F4 Bypass Trachea to Cutaneous with Tracheostomy Device, Percutaneous Approach (ICD-10-PCS; principal; 2017-10-09 13:13)
DX: J96.01 Acute respiratory failure with hypoxia (principal); A41.9 Sepsis, unspecified organism; J18.9 Pneumonia, unspecified organism; I50.33 Acute on chronic diastolic (congestive) heart failure; R65.21 Severe sepsis with septic shock; J69.0 Pneumonitis due to inhalation of food and vomit; N17.9 Acute kidney failure, unspecified; F10.239 Alcohol dependence with withdrawal, unspecified; E87.1 Hypo-osmolality and hyponatremia; J90 Pleural effusion, not elsewhere classified; E87.0 Hyperosmolality and hypernatremia; M46.24 Osteomyelitis of vertebra, thoracic region; D62 Acute posthemorrhagic anemia; K92.2 Gastrointestinal hemorrhage, unspecified; E87.6 Hypokalemia; D69.6 Thrombocytopenia, unspecified; R74.0 Nonspecific elevation of levels of transaminase and lactic acid dehydrogenase [LDH]; D72.829 Elevated white blood cell count, unspecified; E83.39 Other disorders of phosphorus metabolism; D64.9 Anemia, unspecified; E83.42 Hypomagnesemia; E87.70 Fluid overload, unspecified; E88.09 Other disorders of plasma-protein metabolism, not elsewhere classified; I48.0 Paroxysmal atrial fibrillation; I11.0 Hypertensive heart disease with heart failure; R62.7 Adult failure to thrive; R21 Rash and other nonspecific skin eruption; R00.1 Bradycardia, unspecified; M46.43 Discitis, unspecified, cervicothoracic region; R13.10 Dysphagia, unspecified; K76.0 Fatty (change of) liver, not elsewhere classified; K25.9 Gastric ulcer, unspecified as acute or chronic, without hemorrhage or perforation
CPT/HCPCS: 31500; 32557; 36415; 36430; 36600; 71010-TC; 71250-TC; 72131-TC; 74176-TC; 76098-TC; 76700-TC; 76705-TC; 76775-TC; 76998-TC; 80048; 80053; 80061; 80074; 80076; 80307; 81003; 81015; 82042; 82150; 82272; 82436; 82550; 82553; 82570; 82803; 82945; 82977; 83516; 83520; 83605; 83615; 83690; 83721; 83735; 83930; 83935; 84100; 84133; 84156; 84157; 84300; 84478; 84484; 85025; 85027; 85610; 85651; 85730; 86038; 86140; 86160; 86225; 86256; 86480; 86850; 86900; 86901; 86922; 87040; 87070; 87075; 87077; 87086; 87102; 87116; 87186; 87205; 87206; 87210; 87324; 87389; 87449; 87899; 88108; 88305-TC; 89051; 93005; 93010; 93306-TC; 93312; 93325; 93971; 94002; 94640; 94660; 99285-25; C1729; C1769; G0480; J1644; J2597; P9034; P9038; P9047; P9058

== ENCOUNTER 2017-10-15 20:17 | Inpatient (IN) | payer BC, OTHER ==
--- NOTE | 2017-10-15 20:42 | PDOC ---
History of Present Illness - General Chief Complaint: Psychiatric Stated Complaint: DIFF BREATHING/FALL Time Seen by Provider: 10/15/17 20:42 - History of Present Illness Initial Comments: 10/15/17 22:17 67yo man with over 1 month stay in ICU who was discharged today to [facility] and [facility] after he fell out of bed (unwitnessed) and was found supine on the floor. While at [facility] he was agitated and pulling at ventilator tubing. He was given haldol and Ativan 2mg en route. Briefly, he has PMH of EtOH abuse, severe sepsis 2/2 R cavitary PNA s/p chest tube, MSSA bacteremia, vertebral osteomyelitis, recurrent Afib, and chronic vent dependence. Past History - Past Medical History Allergies/Adverse Reactions: Allergies Allergy/AdvReac Type Severity Reaction Status Date / Time No Known Allergies Allergy Verified 10/15/17 20:38 Home Medications: Ambulatory Orders Amiodarone HCl [Cordarone -] 200 mg PEG DAILY tablet 10/15/17 Folic Acid - 1 mg GT DAILY 10/15/17 Metoprolol Tartrate [Lopressor -] 50 mg PEG TID tablet 10/15/17 Mupirocin Cream [Bactroban 2% Cream -] 1 applic TP BID tube 10/15/17 Quetiapine Fumarate [Seroquel -] 25 mg PEG HS tablet 10/15/17 Thiamine HCl [Vitamin B1 -] 100 mg GT DAILY 10/15/17 Cardiac Disorders: Yes (cardiomegaly) COPD: No HTN: Yes Other medical history: PNA, Sepsis, multiple rib tx, ETOH abuse,ARF - Suicide/Smoking/Psychosocial Hx Smoking History: Former smoker Have you smoked in the past 12 months: No If you are a former smoker, when did you quit?: 42 years ago Cigars Per Day: 0 Information on smoking cessation initiated: No Hx Alcohol Use: Yes Drug/Substance Use Hx: Yes (2 cans of beer daily) Substance Use Type: Alcohol Hx Substance Use Treatment: Yes ([facility]) *Physical Exam - Vital Signs Last Vital Signs Temp Pulse Resp BP Pulse Ox 100.4 F H 96 H 20 160/101 100 10/15/17 20:23 10/15/17 20:23 10/15/17 20:23 10/15/17 20:23 10/15/17 20:23 - Physical Exam General Appearance: Yes: Moderate Distress HEENT: positive: Other (L subconjunctiva hemorrhage) Respiratory/Chest: positive: Decreased Breath Sounds, Rhonchi Cardiovascular: positive: Regular Rhythm, Regular Rate, S1, S2 Gastrointestinal/Abdominal: positive: Soft. negative: Distended, Tenderness Integumentary: positive: Other Neurologic: positive: Alert, Other (Ox2, agitated) ED Treatment Course - LABORATORY CBC & Chemistry Diagram: 10/15/17 21:16 10/15/17 21:16 Medical Decision Making - Medical Decision Making 10/15/17 22:42 67yo man with multiple active medical issues who presents with back to [facility] after being discharged earlier today. -Non con Head CT to r/o intracranial hemorrhage -CBC, CMP, coags Will admit under Dr. Boss's service. Pulmonology consulted. *DC/Admit/Observation/Transfer Diagnosis at time of Disposition: Agitation, Respiratory distress - Discharge Dispostion Condition at time of disposition: Stable Admit: Yes Decision to Admit order Date/Time: 10/15/17 21:[address] Hung and Dr. Boss. We will admit patient under Dr. Boss' s service, and consult Dr. Hung for Pulmonology. - Referrals - Patient Instructions - Post Discharge Activity
[2017-10-15 21:24] LABS: ARTERIAL BLD GAS O2 SATURATION 97.7 % (90-98.9); ARTERIAL BLOOD GAS BASE EXCESS -6.7 meq/l (-2-2); ARTERIAL BLOOD GAS HCO3 17.7 meq/L (22-26); ARTERIAL BLOOD GAS PO2 95.5 mmHg (80-100); ARTERIAL BLOOD GAS pH 7.35 (7.35-7.45)
[2017-10-15 21:28] LABS: ALLENS TEST POSITIVE; ART PUNCT SITE RIGHT RADIAL; LPM/O2% 40%; MECH. VENT. YES; METHEMOGLOBIN 0.6 % (0.4-1.5); PT. ON O2? YES; TYPE OF O2 MECH VENT; VENT RATE 14; VT/PRESS 450
[2017-10-15 21:41] LABS: BASO % 0.8 % (0-2.0); EOS % 1.6 % (0-4.5); MCH 28.5 pg (25.7-33.7); MCHC 33.2 g/dl (32.0-35.9); MEAN CELL VOLUME 85.9 fl (80-96); MEAN PLT VOLUME 6.5 fl (7.5-11.1); PLATELET COUNT 374 K/MM3 (134-434); WHITE BLOOD COUNT 16.4 K/mm3 (4.0-10.0)
[2017-10-15 21:56] LABS: INR 1.11 (0.82-1.09); PROTHROMBIN TIME (PATIENT) 12.5 SEC (9.98-11.88)
[2017-10-15 22:08] LABS: ALBUMIN 2.1 g/dl (3.4-5.0); ALK PHOS 924 U/L (45-117); ANION GAP 13 (8-16); BILIRUBIN,TOTAL 0.6 mg/dL (0.2-1.0); CALCIUM 8.2 mg/dL (8.5-10.1); CO2 16 mmol/L (21-32); CREATININE 2.8 mg/dL (0.7-1.3); GLUCOSE,RANDOM 147 mg/dL (74-106); SGOT/AST 47 U/L (15-37); SGPT/ALT 32 U/L (12-78); TOT PROT 8.1 g/dl (6.4-8.2)
[2017-10-15] MEDS ORDERED: CEFTRIAXONE 1 G/50 ML PREMIX 50 ML IVPB SCH (22:30)
[2017-10-15] MEDS ORDERED: CEFTRIAXONE 1 GM in DEXTROSE 5%-WATER - 50 ML IVPB SCH (22:30)
[2017-10-15 23:10] LABS: PH,URINE 5.5 (5.0-8.0); URINE APPEARANCE CLEAR; URINE BILIRUBIN NEGATIVE (NEGATIVE); URINE BLOOD 3+ (NEGATIVE); URINE COLOR LT. YELLOW; URINE GLUCOSE (UA) NEGATIVE (NEGATIVE); URINE KETONE NEGATIVE (NEGATIVE); URINE NITRITE NEGATIVE (NEGATIVE); URINE PROTEIN TRACE (NEGATIVE); URINE UROBILINOGEN 0.2 mg/dL (0.2-1.0)
[2017-10-15] MEDS: ALBUTEROL SO4 2.5/IPRATROPIUM 0.5 INH SOL 3 ML VIAL.NEB. NEB SCH (23:21)
[2017-10-16] MEDS ORDERED: LORazepam 2 MG/ML SDV VIAL ONE (01:56)
--- NOTE | 2017-10-16 02:24 | PDOC ---
Attending Attestation - Resident Resident Name: Lydia Salter - ED Attending Attestation I have performed the following: I have examined & evaluated the patient, The case was reviewed & discussed with the resident, I agree w/resident's findings & plan, Exceptions are as noted - HPI HPI: 10/16/17 02:21 67 yo male BIBA from assisted after being found on the floor pt ws just d/c from our hospital after a prolonged stay pt had pneumonia and could not be weaned from vent and had to have trach placed -also had been treated for ostemylitis socail history alcoholism, no family support ,has estranged daughter in [place] Dr Salter discussed case w Dr Hung and pt admitted - Physicial Exam PE: 10/16/17 02:30 67 yo male ,mildly agitated head no scalp laceration neck trach intact lungs cta b/l cvs [id number] abd nontender ext moving all extremities neuro alert but agitated - Medical Decision Making 10/16/17 02:32 IMP chronic vent pt/ head trauma/pt admitted, awaiting ct scan head
[2017-10-16 04:46] VITALS: BMI 28.1
[2017-10-16] MEDS: ALBUTEROL SO4 2.5/IPRATROPIUM 0.5 INH SOL 3 ML VIAL.NEB. NEB SCH ×4 (06:28→18:15)
[2017-10-16] MEDS: METOPROLOL TARTRATE 50 MG TABLET (FP) PEG SCH ×3 (06:30→22:53)
[2017-10-16] MEDS: MUPIROCIN CA 2% TOPICAL CREAM 15 GM TUBE TP SCH ×2 (10:00→22:52)
[2017-10-16 10:22] LABS: BASO % 0.8 % (0-2.0); EOS % 2.4 % (0-4.5); MCH 28.7 pg (25.7-33.7); MCHC 33.5 g/dl (32.0-35.9); MEAN CELL VOLUME 85.8 fl (80-96); MEAN PLT VOLUME 6.2 fl (7.5-11.1); NEUT % 80.8 % (42.8-82.8); PLATELET COUNT 322 K/MM3 (134-434); RDW 16.8 % (11.9-15.9)
[2017-10-16 10:46] LABS: URINE LEUK ESTERASE Negative (NEGATIVE)
[2017-10-16 10:56] LABS: ALK PHOS 719 U/L (45-117); ANION GAP 12 (8-16); BILIRUBIN,TOTAL 0.6 mg/dL (0.2-1.0); CALCIUM 8.4 mg/dL (8.5-10.1); CO2 19 mmol/L (21-32); CREATININE 2.7 mg/dL (0.7-1.3); GLUCOSE,RANDOM 100 mg/dL (74-106); MAGNESIUM 1.9 mg/dL (1.8-2.4); SGOT/AST 32 U/L (15-37); SGPT/ALT 25 U/L (12-78); TOT PROT 7.7 g/dl (6.4-8.2); TROPONIN I 0.03 ng/ml (0.00-0.05)
[2017-10-16] MEDS ORDERED: PT OWN MED DRAWER 7, Y5N ONE (10:59)
[2017-10-16] MEDS: FOLIC ACID 1 MG TABLET (FP) GT SCH (11:38)
[2017-10-16] MEDS: HEPARIN NA (PORCINE) 5,000 UNITS/ML 1ML VIAL SQ SCH ×2 (11:38→22:52)
[2017-10-16] MEDS: AMIODARONE HCL 200 MG TABLET (FP) PEG SCH (11:38)
--- NOTE | 2017-10-16 12:54 | EKG ---
Test Reason : Blood Pressure : / mmHG Vent. Rate : 101 BPM Atrial Rate : 101 BPM P-R Int : 180 ms QRS Dur : 088 ms QT Int : 364 ms P-R-T Axes : 049 006 032 degrees QTc Int : 471 ms SINUS TACHYCARDIA OTHERWISE NORMAL ECG WHEN COMPARED WITH ECG OF 16-OCT-2017 02:10, NO SIGNIFICANT CHANGE WAS FOUND Confirmed by LAISHA SALAS MD ([id number]) on 10/16/2017 12:54:23 PM Referred By: Jarrell EVANS Confirmed By:LAISHA SALAS MD
[2017-10-16] MEDS ORDERED: ACETAMINOPHEN 650 MG/20.3 ML ORAL SOLUTION (CUPS) PO PRN (12:59)
[2017-10-16] MEDS: ACETAMINOPHEN 650 MG/20.3 ML ORAL SOLUTION (CUPS) GT PRN ×2 (13:00→18:49)
--- NOTE | 2017-10-16 13:04 | CON.PSY ---
Psychiatry Consult Chief Complaint: Patient with poor impulse control, pulling out feeding tunes. Had been in ICU for amonth. Symptoms: reports: Aggressivity, Impulsivity - Previous Psychiatric Treatment Outpatient: None Inpatient: None - Previous Substance Abuse Treatment Outpatient: None, More than 6 mos ago - Reason for Previous Treatment Reason for Previous Treatment: Alcohol Abuse - Current Medications Current Medications: Active Medications Acetaminophen (Tylenol Oral Solution -) 650 mg PO Q6H PRN PRN Reason: FEVER OR PAIN Albuterol/Ipratropium (Duoneb -) 1 amp NEB QIDR [facility] Last Admin: 10/16/17 12:10 Dose: 1 amp Amiodarone HCl (Cordarone -) 200 mg PEG DAILY [facility] Last Admin: 10/16/17 11:38 Dose: 200 mg Folic Acid (Folic Acid -) 1 mg GT DAILY [facility] Last Admin: 10/16/17 11:38 Dose: 1 mg Furosemide (Lasix Injection -) 40 mg IVPUSH DAILY [facility] Heparin Sodium (Porcine) (Heparin -) 5,000 unit SQ BID [facility] Last Admin: 10/16/17 11:38 Dose: 5,000 unit CEFTRIAXONE 1 G/50 ML PREMIX (Ceftriaxone 1 Gm-D5w Bag) 50 mls @ 100 mls/hr IVPB DAILY [facility] Last Admin: 10/16/17 11:38 Dose: 100 mls/hr Metoprolol Tartrate (Lopressor -) 50 mg PEG TID [facility] Last Admin: 10/16/17 06:30 Dose: 50 mg Mupirocin (Bactroban 2% Cream -) 1 applic TP BID [facility] Olanzapine (Zyprexa -) 2.5 mg PO BID [facility] - Allergies Allergies: Allergies Allergy/AdvReac Type Severity Reaction Status Date / Time No Known Allergies Allergy Verified 10/15/17 20:38 - Current Living Status Usual Living Arrangement: Half-Way - Current Mental Status Evaluation Appearance: Disheveled Attitude: Guarded - Mood Mood: Irritable - Speech/Language Expressive: Coherent - Psychomotor Activity Psychomotor Activity: Hyperactive - Thought Process Thought Process: Circumstantial - Thought Content Hallucinations: Absent Delusions: Absent - Self Perception Self Perception: No Impairment - Cognition Attention: Diminished Orientation: Time Memory, Immediate Recall: Intact - Concentration Serial Sevens Intact: No Simple Calculations Intact: No - Abstraction Proverb Interpretation: Intact Judgement: Moderately Impaired - Insight Insight: Impaired - Impulse Control Impulse Control: Moderately Impaired - Suicidal Ideation Suicidal Ideation: No - Homicidal Ideation Homicidal Ideation: No Assessment/Plan 1) d/c Seroquel 2) Zyprexa 2.5mg po bid.
--- NOTE | 2017-10-16 13:53 | PN ---
Progress Note, Physician History of Present Illness: Transferred back from [place] after becoming agitated, climbed out of bed and fell. Awake on vent. - Current Medication List Current Medications: Active Medications Acetaminophen (Tylenol Oral Solution -) 650 mg GT Q6H PRN PRN Reason: FEVER OR PAIN Albuterol/Ipratropium (Duoneb -) 1 amp NEB QIDR [facility] Last Admin: 10/16/17 12:10 Dose: 1 amp Amiodarone HCl (Cordarone -) 200 mg PEG DAILY [facility] Last Admin: 10/16/17 11:38 Dose: 200 mg Folic Acid (Folic Acid -) 1 mg GT DAILY [facility] Last Admin: 10/16/17 11:38 Dose: 1 mg Furosemide (Lasix Injection -) 40 mg IVPUSH DAILY [facility] Heparin Sodium (Porcine) (Heparin -) 5,000 unit SQ BID [facility] Last Admin: 10/16/17 11:38 Dose: 5,000 unit CEFTRIAXONE 1 G/50 ML PREMIX (Ceftriaxone 1 Gm-D5w Bag) 50 mls @ 100 mls/hr IVPB DAILY [facility] Last Admin: 10/16/17 11:38 Dose: 100 mls/hr Metoprolol Tartrate (Lopressor -) 50 mg PEG TID [facility] Last Admin: 10/16/17 06:30 Dose: 50 mg Mupirocin (Bactroban 2% Cream -) 1 applic TP BID [facility] Olanzapine (Zyprexa -) 2.5 mg PO BID [facility] - Objective Vital Signs: Vital Signs Temperature 100.2 F H 10/16/17 11:54 Pulse Rate 105 H 10/16/17 11:54 Respiratory Rate 22 10/16/17 11:54 Blood Pressure 157/91 10/16/17 11:54 O2 Sat by Pulse Oximetry (%) 97 10/16/17 04:56 Constitutional: Yes: No Distress, Calm HENT: Yes: Other (Trach) Neck: Yes: Supple Cardiovascular: Yes: Regular Rate and Rhythm Respiratory: Yes: Regular, Diminished, Rhonchi Gastrointestinal: Yes: Normal Bowel Sounds, Soft Edema: No Labs: CBC, BMP 10/16/17 09:20 10/16/17 09:20 INR, PTT INR 1.11 (0.82-1.09) 10/15/17 21:16 - ....Imaging Chest X-ray: Report Reviewed (Congestion) Cat Scan: Report Reviewed (HCT: No acute changes) EKG: Report Reviewed (ST @ 101) Problem List - Problems (1) Acute and chronic respiratory failure Code(s): J96.20 - ACUTE AND CHR RESP FAILURE, UNSP W HYPOXIA OR HYPERCAPNIA Qualifiers: Respiratory failure complication: hypoxia and hypercapnia Qualified Code(s) : J96.21 - Acute and chronic respiratory failure with hypoxia; J96.22 - Acute and chronic respiratory failure with hypercapnia; J96.22 - Acute and chronic respiratory failure with hypercapnia; J96.22 - Acute and chronic respiratory failure with hypercapnia (2) Agitation Code(s): R45.1 - RESTLESSNESS AND AGITATION (3) Acute kidney injury Code(s): N17.9 - ACUTE KIDNEY FAILURE, UNSPECIFIED (4) Alkaline phosphatase elevation Code(s): R74.8 - ABNORMAL LEVELS OF OTHER SERUM ENZYMES (5) Anemia Code(s): D64.9 - ANEMIA, UNSPECIFIED Qualifiers: Anemia type: unspecified type Qualified Code(s): D64.9 - Anemia, unspecified (6) Paroxysmal atrial fibrillation Code(s): I48.0 - PAROXYSMAL ATRIAL FIBRILLATION (7) Status post insertion of percutaneous endoscopic gastrostomy (PEG) tube Code(s): Z93.1 - GASTROSTOMY STATUS (8) Status post tracheostomy Code(s): Z93.0 - TRACHEOSTOMY STATUS (9) Acute diastolic heart failure Code(s): I50.31 - ACUTE DIASTOLIC (CONGESTIVE) HEART FAILURE Assessment/Plan 1. Paroxysmal atrial fibrillation [id number] score of 2, currently in sinus rhythm off of A/C/Eliquis therapy as outlined above, on Amiodarone therapy 2. Acute hypoxic respiratory failure, post tracheotomy 3. Cavitating pneumonia, MSSA bacteremia, post septic shock no evidence of endocarditis by ALISA criteria 4. Acute on chronic diastolic failure 5. Osteomyelitis T9-T10 discitis 6. Loculated effusion post chest tube drainage 7. History of alcohol dependence 8. Acute renal insufficiency, resolving 9. Anemia 10. Hypokalemia PLAN: 1. Continue Lopressor 50 tid via PEG, hemodynamics permitting, Lasix 40 IV qd with monitor diuretic response, renal fxn and electrolytes 2. Continue Amiodarone 200 qd via PEG 3. As outlined above defer rn long term care A/C considering his presentation and co- morbidities, and ideal choice would be Coumadin given his renal function 4. Consider transfusion to maintain Hg equal or > 8.0 5. Ventilator management as per the ICU team, empiric abx course
[2017-10-16] MEDS: FUROSEMIDE 40 MG/4 ML INJECTABLE VIAL IVPUSH SCH (13:59)
--- NOTE | 2017-10-16 14:24 | PN ---
Progress Note (short form) - Note Progress Note: PULMONARY CONSULTATION DICTATED 10/16/17 IMP ACUTE ON CHRONIC RESPIRATORY FAILURE SEPSIS ? PNEUMONIA ,? INTRA-ABDOMINAL S/P TRACH AGITATION ACUTE ON CHRONIC RENAL FAILURE ANEMIA RECENT MSSA SEPSIS RECENT PLEURAL EFFUSION S/P CHEST TUBE PAF ELEVATED ALK PHOS PLAN VENTILATOR SUPPORT ANTIBIOTICS TRANSFUSE CULTURES MONITOR LYTES,H+H DR SANTAMARIA Problem List - Problems (1) Acute and chronic respiratory failure Code(s): J96.20 - ACUTE AND CHR RESP FAILURE, UNSP W HYPOXIA OR HYPERCAPNIA (2) Agitation Code(s): R45.1 - RESTLESSNESS AND AGITATION (3) Respiratory distress Code(s): R06.03 - ACUTE RESPIRATORY DISTRESS (4) Alkaline phosphatase elevation Code(s): R74.8 - ABNORMAL LEVELS OF OTHER SERUM ENZYMES (5) Anemia Code(s): D64.9 - ANEMIA, UNSPECIFIED Qualifiers: Anemia type: unspecified type Qualified Code(s): D64.9 - Anemia, unspecified (6) History of alcohol abuse Code(s): Z87.898 - PERSONAL HISTORY OF OTHER SPECIFIED CONDITIONS (7) Paroxysmal atrial fibrillation Code(s): I48.0 - PAROXYSMAL ATRIAL FIBRILLATION (8) Pneumonia Code(s): J18.9 - PNEUMONIA, UNSPECIFIED ORGANISM Qualifiers: Pneumonia type: aspiration pneumonia (9) Respiratory failure with hypoxia Code(s): J96.91 - RESPIRATORY FAILURE, UNSPECIFIED WITH HYPOXIA Qualifiers: Chronicity: acute Qualified Code(s): J96.01 - Acute respiratory failure with hypoxia (10) Status post tracheostomy Code(s): Z93.0 - TRACHEOSTOMY STATUS
--- NOTE | 2017-10-16 14:58 | PN ---
Progress Note (short form) - Note Progress Note: Just discharged yesterday am to [place]- returned yesterday evening after becoming agitated at [place] apparently pulling on trach became very agitated and was given ativen and haldol he was found on the floor per ED note low grade temp after arrival to the hospital he is alert recent prolonged admission for MSSA bacteremia/pneumonia T9/10 vertebral osteomyelitis prolonged resp failure requiring peg and trach renal failure- ?AIN- switched to vancomycin from cefazolin Vital Signs Period Temp Pulse Resp BP Sys/Jeff Pulse Ox Last 24 Hr 99.2 F-100.4 F 20-105 16-33 126-160/71-103 97-100 trach to vent cor-rrr lungs decreased bs at bases abd soft,nt +GT, mild RUQ pain to palpation, no rebound or guarding ext some abrasions left Lower leg, no ulcers CBC, BMP 10/16/17 09:20 10/16/17 09:20 cultures pending cxray- congestive changes a/p low grade fever anemia-?why- has had multiple MSSA bacteremia/vertebral osteo T9/T10 day #40 of 56 d/c ceftriaxone switch to vancomycin based on levels possible AIN to cefazolin add azactam for possible pneumonia (GNR) recent sputum cultures 10/10, 10/09 normal north transfuse chronic respiratory failure elevated alk phos was just seen by GI and Surgery- appears to be improving, would trend
[2017-10-16] MEDS ORDERED: VANCOMYCIN 500 MG/100 ML PRE-DOCKED IVPB ONE (15:15)
[2017-10-16] MEDS ORDERED: AZTREONAM 1 GM in DEXTROSE 5%-WATER - 50 ML IVPB SCH (15:15)
--- NOTE | 2017-10-16 15:19 | CON.PULM ---
Consult Consult Specialty:: Pulmonary Reason for Consultation:: We were called to evaluate this patient as he is trach dependent and recently attempted to pull the trach out. - History of Present Illness Chief Complaint: agitation History of Present Illness: The patient is a 67 yo m w/ PMH ETOH abuse, cavitary pneumonia, osteomyelitis and a-fib who was recently discharged from [facility] after a prolonged ICU stay resulting in the patient becoming chronically ventilator dependent. Patient was brought back to the ED this AM as he became agitated, pulled on his trach and was found on the floor in the [place] [facility]. Patient is s/p PEG placement. In the ED, patient was found to have a low grade fever and tachypnea as well as a worsening chest xray. Today, patient states he feels well. He complains of weakness in his legs and expresses that this is the reason why he fell. Patient denies shortness of breath, chest pain or chills. - History Source History Provided By: Medical Record Limitations to Obtaining History: Other (patient with trach and chronically venilator dependent) - Past Medical History Cardio/Vascular: Yes: HTN Pulmonary: Yes: Pneumonia Musculoskeletal: Yes: Other (left rib pain ) Additional Medical History: chronic alcoholism with multiple detox and rehabs in the past.most recent at [facility] x 12 months - states he began drinking immediately after d/c . - Alcohol/Substance Use Hx Alcohol Use: Yes Number of Drinks Daily: 8 (He states he drinks about 8 16oz drinks per day) - Smoking History Smoking history: Former smoker Have you smoked in the past 12 months: No If you are a former smoker, when did you quit?: 42 years ago - Social History Usual Living Arrangement: Halfway ADL: Independent Home Medications - Allergies Allergies/Adverse Reactions: Allergies Allergy/AdvReac Type Severity Reaction Status Date / Time No Known Allergies Allergy Verified 10/15/17 20:38 - Home Medications Home Medications: Ambulatory Orders Amiodarone HCl [Cordarone -] 200 mg PEG DAILY tablet 10/15/17 Folic Acid - 1 mg GT DAILY 10/15/17 Metoprolol Tartrate [Lopressor -] 50 mg PEG TID tablet 10/15/17 Mupirocin Cream [Bactroban 2% Cream -] 1 applic TP BID tube 10/15/17 Quetiapine Fumarate [Seroquel -] 25 mg PEG HS tablet 10/15/17 Thiamine HCl [Vitamin B1 -] 100 mg GT DAILY 10/15/17 Review of Systems - Review of Systems Constitutional: reports: Fever. denies: Chills Cardiovascular: denies: Chest Pain, Palpitations, Shortness of Breath Respiratory: denies: Cough, SOB, SOB on Exertion Physical Exam Vital Sings: Vital Signs Temperature 100.2 F H 10/16/17 11:54 Pulse Rate 105 H 10/16/17 11:54 Respiratory Rate 22 10/16/17 11:54 Blood Pressure 157/91 10/16/17 11:54 O2 Sat by Pulse Oximetry (%) 97 10/16/17 04:56 Constitutional: Yes: Well Nourished, No Distress, Calm HENT: Yes: Atraumatic, Normocephalic Cardiovascular: Yes: Regular Rate and Rhythm, S1, S2. No: Bruit, JVD, Gallop, Murmur, Rub, S3, S4 Respiratory: Yes: Regular, Mechanically Ventilated, Wheezes (expiratory wheezes heard in all lung merchant) ...Breath Sounds: ANTOINETTE Wheezes, LLL Wheezes, RUL Wheezes, RML Wheezes, RLL Wheezes ...Clubbing: No Edema: No Labs: CBC, BMP 10/16/17 09:20 10/16/17 09:20 ABG Results ABG pH 7.35 (7.35-7.45) 10/15/17 21:16 ABG pCO2 at Pt Temp 33.3 mmHg (35-45) L 10/15/17 21:16 ABG pO2 at Pt Temp 95.5 mmHg (80-100) D 10/15/17 21:16 ABG HCO3 17.7 meq/L (22-26) L 10/15/17 21:16 ABG O2 Sat (Measured) 97.7 % (90-98.9) 10/15/17 21:16 ABG O2 Content 18.1 % vol (15-22) 10/15/17 21:16 ABG Base Excess -6.7 meq/l (-2-2) L 10/15/17 21:16 Assessment/Plan The patient is a 67 YO M w/ PMH ETOH abuse, cavitary PNA, vertebral osteomyelitis and a-fib brought to the ED for agitation, unwitnessed fall and for pulling at his tracheostomy site. The patient was admitted for low grade fevers and worsening chest xray. He was tachypnic with a WBC count of 16.4 in the ED which has since decreased. Patient also is noted to be anemic to 6.8 today. Patient states his breathing is at his baseline since discharge. #SIRS 2/2 pneumonia vs respiratory failure -BCX, UCX pending -ABX as per ID -Patient does not appear SOB on exam -obtain sputum culture if possible #Anemia -Hb 7.6 on admission, is 6.8 today -advise transfusion -monitor Hb
[2017-10-16] MEDS ORDERED: VANCOMYCIN 500 MG in DEXTROSE 5%-WATER - 100 ML IVPB ONE (15:45)
[2017-10-16] MEDS: OLANZapine 2.5 MG TABLET PO SCH ×2 (15:52→22:53)
[2017-10-16] MEDS ORDERED: FLU VACCINE QUAD 60 MCG/0.5 ML (MDV 17-18) IM ONE (16:15)
[2017-10-16] MEDS ORDERED: PNEUMOC 13-VAL CONJ-DIP CRM/PF 0.5 ML DISP.SYRIN IM ONE (16:15)
[2017-10-16] MEDS: AZTREONAM 1 GRAM SYRINGE 1 GM/10 ML DISP.SYRIN IVPUSH SCH ×2 (16:22→22:46)
--- NOTE | 2017-10-16 16:53 | CONS ---
DATE OF CONSULTATION: 10/16/2017 PULMONARY CONSULTATION REFERRING PHYSICIAN: Carmelita Boss MD HISTORY OF PRESENT ILLNESS: The patient is a 66-year-old white male recently discharged from [facility] after prolonged hospitalization secondary to hypoxemic respiratory failure secondary to cavitary pneumonia status post failed extubations, status post trach, sepsis secondary to MRSA and MSSA bacteremia, vertebral osteomyelitis complicated by loculating pleural effusions status post chest tube insertion, atrial fibrillation, acute kidney injury, aphasia, chronic right subdural, EtOH dependence, hypertension, thrombocytopenia, hypomagnesemia, right upper lobe lucency, noted to have elevated alkaline phosphatase on previous hospitalization who was transferred to [facility] on October 15. The patient was readmitted last night after he fell out of bed unwitnessed and found on the floor. He was also noted to be very agitated at the senior care and pulling in the ventilator tubing. He apparently was given Haldol without improvement and the patient was transferred to [facility] ER for the above. In the ER he was subsequently transferred to the pulmonary unit for further therapy. Of note, is the patient was evaluated by psychiatry. He was also noted to be very agitated and tachypneic. He was also febrile. The patient is complaining of some right upper quadrant abdominal discomfort. PAST MEDICAL HISTORY: Again includes recent sepsis, status post pleural effusion, status post chest tube and bacteremia and MSSA bacteremia, vertebral osteomyelitis, history of EtOH, current atrial fibrillation, chronic ventilator dependence. CURRENT MEDICATIONS: Include Tylenol, Cordarone, Bactroban, heparin, Zyprexa, DuoNeb, Lopressor, ceftriaxone, Lasix, folic acid. REVIEW OF SYSTEMS: Unable to be obtained. PHYSICAL EXAMINATION: General: The patient is a well-developed, well-nourished male, agitated on ventilatory support and tachypneic. Vitals: The patient is currently febrile at 100.2, heart rate 105, blood pressure is 157/91, respiratory rate 44, O2 saturation is 97%. HEENT: Examination is normocephalic and atraumatic. Neck: Supple. Heart: Tachycardic irregularly irregular, normal S1, S2. Lungs: Bilateral rhonchi. Abdomen: Soft and tender in the right upper quadrant. Extremities: No cyanosis or edema. LABORATORY DATA: WBC is 11.0, hemoglobin 6.8, hematocrit 20.3, platelet count 322,000. INR is 1.1. Blood gas pH 7.35, pCO2 33, pO2 95, bicarb 17, saturation 97.7. AC 14, tidal volume 450 and PEEP of 5. BUN is 60, creatinine 2.7. BNP is 34,000. Alkaline phosphatase is 719. On admission it was 924. Chest x-ray progressive pulmonary vascular changes. IMPRESSION: 1. Acute on chronic respiratory failure. 2. Sepsis, possible pneumonia, possible intraabdominal. 3. Congestive heart failure. 4. Atrial fibrillation. 5. Agitation. 6. Anemia. 7. History of EtOH. 8. Right upper quadrant pain. 9. Chronic kidney disease. PLAN: IV antibiotics as per infectious disease, panculture, transfuse, sedation as per psychiatry, monitor electrolytes, monitor CBC, rate control. As per cardiology continue amiodarone, Lopressor. Thank you. We will follow closely with you. JULIANNE SANTAMARIA M.D. RAMESH/[id number]
[2017-10-16] MEDS ORDERED: methylPREDNISolone NA SUCC 125 MG/2 ML VIAL IVPUSH ONE (19:01)
[2017-10-16] MEDS ORDERED: morphine SULFATE 4 MG/ML VIAL IVPUSH ONE (19:03)
[2017-10-16] MEDS ORDERED: FUROSEMIDE 40 MG/4 ML INJECTABLE VIAL IVPUSH ONE (19:05)
--- NOTE | 2017-10-16 19:21 | HP ---
Admitting History and Physical - Primary Care Physician PCP: Chava Hung ([place]) - Admission Chief Complaint: Fall, Sepsis, Fever, Anemia, respiratory distress History of Present Illness: 67yo man with over 1 month stay in ICU who was discharged yesterday to [facility] and [facility] after he fell out of bed (unwitnessed) and was found supine on the floor. While at [facility] he was agitated and pulling at ventilator tubing. He was given haldol and Ativan 2mg en route. Briefly, he has PMH of EtOH abuse, severe sepsis 2/2 R cavitary PNA s/p chest tube, MSSA bacteremia, vertebral osteomyelitis, recurrent Afib, and chronic vent dependence. History Source: Medical Record Limitations to Obtaining History: Clinical Condition, Dementia, Intubated - Past Medical History Cardiovascular: Yes: HTN Pulmonary: Yes: Pneumonia Musculoskeletal: Yes: Other (left rib pain ) - Smoking History Smoking history: Former smoker Have you smoked in the past 12 months: No If you are a former smoker, when did you quit?: 42 years ago - Alcohol/Substance Use Hx Alcohol Use: Yes Number of Drinks Daily: 8 (He states he drinks about 8 16oz drinks per day) - Social History ADL: Independent Home Medications - Allergies Allergies/Adverse Reactions: Allergies Allergy/AdvReac Type Severity Reaction Status Date / Time No Known Allergies Allergy Verified 10/15/17 20:38 - Home Medications Home Medications: Ambulatory Orders Amiodarone HCl [Cordarone -] 200 mg PEG DAILY tablet 10/15/17 Folic Acid - 1 mg GT DAILY 10/15/17 Metoprolol Tartrate [Lopressor -] 50 mg PEG TID tablet 10/15/17 Mupirocin Cream [Bactroban 2% Cream -] 1 applic TP BID tube 10/15/17 Quetiapine Fumarate [Seroquel -] 25 mg PEG HS tablet 10/15/17 Thiamine HCl [Vitamin B1 -] 100 mg GT DAILY 10/15/17 Review of Systems Findings/Remarks: Patient in respiratory distress right now tachycardiac diaphoretic febrile hypertensive seen by ID,cardiology,psychiatry and pulmonary - Review of Systems Constitutional: reports: Weakness Physical Examination Vital Signs: Vital Signs Temperature 101.3 F H 10/16/17 13:45 Pulse Rate 115 H 10/16/17 13:45 Respiratory Rate 32 H 10/16/17 18:15 Blood Pressure 172/116 10/16/17 13:45 O2 Sat by Pulse Oximetry (%) 99 10/16/17 10:00 Constitutional: Yes: Moderate Distress Cardiovascular: Yes: Tachycardia Respiratory: Yes: Diminished, Mechanically Ventilated, Wheezes Neurological: Yes: Alert, Pre-Existing Deficit Psychiatric: Yes: Alert Labs: CBC, BMP 10/16/17 09:20 10/16/17 09:20 Imaging - Results Chest X-ray: Report Reviewed (Pulmonary congestion) Cat Scan: Report Reviewed Problem List - Problems (1) Acute and chronic respiratory failure Assessment/Plan: -on mechanical went -neb tx -prone to mucous plugs Patient in respiratory distress right now tachycardiac diaphoretic febrile -ventillated via ambu bag and suctioned -morphine 2 mg stat given -solumedrol 125 mg IVP stat given -Stat neb tx -clinical condition improved -may need ICU transfer, spoke to Dr Leone-covering ICU tonight Code(s): J96.20 - ACUTE AND CHR RESP FAILURE, UNSP W HYPOXIA OR HYPERCAPNIA Qualifiers: Respiratory failure complication: hypoxia and hypercapnia Qualified Code(s) : J96.21 - Acute and chronic respiratory failure with hypoxia; J96.22 - Acute and chronic respiratory failure with hypercapnia; J96.22 - Acute and chronic respiratory failure with hypercapnia; J96.22 - Acute and chronic respiratory failure with hypercapnia (2) Abuse, drug or alcohol Code(s): F19.10 - OTHER PSYCHOACTIVE SUBSTANCE ABUSE, UNCOMPLICATED (3) Anemia Assessment/Plan: -recieved PRBC -source unknown -seen by GI previously -Last stool Ob was negative -Nursing to [place] all stools -hematology consult -check iron b 12 and FA -monitor labs Code(s): D64.9 - ANEMIA, UNSPECIFIED Qualifiers: Anemia type: unspecified type Qualified Code(s): D64.9 - Anemia, unspecified (4) Paroxysmal atrial fibrillation Code(s): I48.0 - PAROXYSMAL ATRIAL FIBRILLATION (5) Urinary retention Assessment/Plan: -bladder scan -urology consult -tamsulosin Code(s): R33.9 - RETENTION OF URINE, UNSPECIFIED Assessment/Plan see problem list
[2017-10-16 19:28] LABS: ALLENS TEST POSITIVE; ART PUNCT SITE LEFT RADIAL; ARTERIAL BLD GAS O2 SATURATION 97.9 % (90-98.9); ARTERIAL BLOOD GAS BASE EXCESS -4.3 meq/l (-2-2); ARTERIAL BLOOD GAS HCO3 18.2 meq/L (22-26); ARTERIAL BLOOD GAS pH 7.42 (7.35-7.45); PT. ON O2? YES; TYPE OF O2 MECH VENT
[2017-10-16 19:29] LABS: LPM/O2% 30%+ TX 5L; MECH. VENT. YES; PT'S TEMP 102.9; VENT RATE 14; VT/PRESS 450
[2017-10-16] MEDS ORDERED: QUEtiapine FUMARATE 25 MG TABLET (FP) PEG SCH (22:00)
[2017-10-16] MEDS ORDERED: OLANZapine 2.5 MG TABLET PO SCH (22:00)
[2017-10-17] MEDS: ALBUTEROL SO4 2.5/IPRATROPIUM 0.5 INH SOL 3 ML VIAL.NEB. NEB SCH ×2 (00:18→06:30)
[2017-10-17] MEDS: ACETAMINOPHEN 650 MG/20.3 ML ORAL SOLUTION (CUPS) GT PRN ×3 (00:47→20:59)
[2017-10-17] MEDS: METOPROLOL TARTRATE 50 MG TABLET (FP) PEG SCH ×3 (07:01→20:59)
--- NOTE | 2017-10-17 08:19 | CON.GU ---
Consult Consult Specialty:: urology Referred by:: Karyn Reason for Consultation:: urinary retention - History of Present Illness Chief Complaint: urinary retention History of Present Illness: Patient is an unfortunate gentleman in repiratory failure and history of alcohol abuse and dementia. Patient is unable to give a proper history. The patient is currently without a hines. Chart and nursing consulted. - History Source History Provided By: Patient, Medical Record, Caregiver Limitations to Obtaining History: Dementia - Past Medical History Cardio/Vascular: Yes: HTN Pulmonary: Yes: Pneumonia Musculoskeletal: Yes: Other (left rib pain ) Additional Medical History: chronic alcoholism with multiple detox and rehabs in the past.most recent at [facility] x 12 months - states he began drinking immediately after d/c . - Alcohol/Substance Use Hx Alcohol Use: Yes Number of Drinks Daily: 8 (He states he drinks about 8 16oz drinks per day) - Smoking History Smoking history: Former smoker Have you smoked in the past 12 months: No If you are a former smoker, when did you quit?: 42 years ago - Social History Usual Living Arrangement: Shelter ADL: Independent Home Medications - Allergies Allergies/Adverse Reactions: Allergies Allergy/AdvReac Type Severity Reaction Status Date / Time No Known Allergies Allergy Verified 10/15/17 20:38 - Home Medications Home Medications: Ambulatory Orders Amiodarone HCl [Cordarone -] 200 mg PEG DAILY tablet 10/15/17 Folic Acid - 1 mg GT DAILY 10/15/17 Metoprolol Tartrate [Lopressor -] 50 mg PEG TID tablet 10/15/17 Mupirocin Cream [Bactroban 2% Cream -] 1 applic TP BID tube 10/15/17 Quetiapine Fumarate [Seroquel -] 25 mg PEG HS tablet 10/15/17 Thiamine HCl [Vitamin B1 -] 100 mg GT DAILY 10/15/17 Physical Exam- Vital Signs: Vital Signs Temperature 99.5 F 10/17/17 06:00 Pulse Rate 141 H 10/17/17 06:00 Respiratory Rate 28 H 10/17/17 06:32 Blood Pressure 127/88 10/17/17 06:00 O2 Sat by Pulse Oximetry (%) 99 10/16/17 10:00 Constitutional: Yes: Calm, Poor Hygeine, Thin Eyes: Yes: WNL, Conjunctiva Clear, EOM Intact HENT: Yes: WNL, Atraumatic Neck: Yes: Supple, Trachea Midline Gastrointestinal: Yes: WNL, Normal Bowel Sounds, Soft Renal/: Yes: WNL Kidneys: Yes: WNL Pelvis: Yes: WNL, Bladder Non Palpable Testicles: Yes: WNL Scrotum: Yes: WNL Penis: Yes: WNL Prostate Exam: Yes: Swollen Labs: CBC, BMP 10/16/17 09:20 10/16/17 09:20 Assessment/Plan imp urinary retention respiratory failure s/p fall in [facility] chronic renal insufficiency plan patient is comfortable without a palpable bladder. renal sono and CT scan showed no evidence of hydronephrosis. Patient had a hines catheter while in the ICU. Would recommend following bladder scans to evaluate levels of urinary retention.
[2017-10-17] MEDS: FUROSEMIDE 40 MG/4 ML INJECTABLE VIAL IVPUSH SCH (09:57)
--- NOTE | 2017-10-17 10:05 | RAPID ---
Physical Examination Vital Signs: Vital Signs Temp 100.3, BP 136/95, HR 145, sat 100% Vent settings RR 35/30%/ PI 32.8 Findings/Remarks: Pt lying in bed in NAD, on trach. Constitutional: Yes: Calm, Anxious Eyes: Yes: WNL HENT: Yes: WNL Neck: Yes: WNL, Supple Cardiovascular: Yes: Tachycardia Respiratory: Yes: CTA Bilaterally Gastrointestinal: Yes: Normal Bowel Sounds, Other (tender to palpation in LLQ) Neurological: Yes: WNL, Other (Non-verbal. Able to mouth responses.) Labs: CBC, BMP 10/16/17 09:20 10/16/17 09:20 Troponin, BNP 10/17/17 10:45 Troponin I 0.04 D Rapid Response - Rapid Response Assessment: Patient w/ trach, vented, tachy to 145. Resting in bed, appears slight anxious. Per note, similar episode overnight of tachpnea, tachycardia due to presumed mucous plug. EKG, CBC w/ diff, CMP, lactate, cardiac profile ordered. Pt assessed and was not acutely decompensating. PA responsible for care arrived during assessment and assumed management of patient. Pt stable when left. F/u EKG notable notable for SVT. Pt on amio gtt, BB currently. Per PA plan: Defer to primary team for management give morphine 2mg IVP, metoprolol 2.5 mg IVP, neb tx and ambu bag f/u all pending labs Cardiac monitoring Cardiology already following
[2017-10-17] MEDS ORDERED: morphine SULFATE 4 MG/ML VIAL ONE ×2 (10:13→23:38)
[2017-10-17] MEDS ORDERED: DIGOXIN 0.5 MG/2 ML AMPUL IVPUSH ONE (10:15)
[2017-10-17] MEDS ORDERED: morphine CARPU-JECT 2 MG/1 ML DISP.SYRIN IVPUSH PRN (10:16)
[2017-10-17] MEDS ORDERED: PT OWN MED DRAWER 7, Y5N ONE (10:20)
[2017-10-17] MEDS: MUPIROCIN CA 2% TOPICAL CREAM 15 GM TUBE TP SCH ×2 (10:23→22:00)
[2017-10-17] MEDS: AZTREONAM 1 GRAM SYRINGE 1 GM/10 ML DISP.SYRIN IVPUSH SCH ×2 (10:23→21:00)
[2017-10-17] MEDS: OLANZapine 2.5 MG TABLET PO SCH ×2 (10:24→23:00)
[2017-10-17] MEDS: FOLIC ACID 1 MG TABLET (FP) GT SCH (10:24)
[2017-10-17] MEDS: HEPARIN NA (PORCINE) 5,000 UNITS/ML 1ML VIAL SQ SCH ×2 (10:24→21:00)
[2017-10-17] MEDS: AMIODARONE HCL 200 MG TABLET (FP) PEG SCH (10:27)
--- NOTE | 2017-10-17 10:29 | PN ---
Progress Note, Physician Chief Complaint: Anemia, Respiratory failure, s/p Fall History of Present Illness: Walked in the room during Rapid Response. Similar episode as last evening, tachypnea, tachycardia, respiratory distress, which was thought to be due to a mucous plug. Was given morphine 2 mg and solumedrol 125 mg once. Today, current EKG shows A-flutter change from previous EKG that showed ST- has had similar episodes in the past. On Amiodarone GT already. Seen by cardiology yesterday. intervention: Morphine 2 mg IVP, metoprolol 2.5 mg IVP neb tx ambu bag- likely a mucous plug - Current Medication List Current Medications: Active Medications Acetaminophen (Tylenol Oral Solution -) 650 mg GT Q6H PRN PRN Reason: FEVER OR PAIN Last Admin: 10/17/17 00:47 Dose: 650 mg Acetylcysteine (Mucomyst 20 Oral / Inh Use Only*) 2 mg NEB BID [facility] Albuterol Sulfate (Ventolin 0.083% Nebulizer Soln -) 1 amp NEB Q4H [facility] Amiodarone HCl (Cordarone -) 200 mg PEG DAILY [facility] Last Admin: 10/16/17 11:38 Dose: 200 mg Digoxin (Lanoxin Injection -) 0.25 mg IVPUSH ONCE ONE Stop: 10/17/17 10:16 Folic Acid (Folic Acid -) 1 mg GT DAILY [facility] Last Admin: 10/16/17 11:38 Dose: 1 mg Furosemide (Lasix Injection -) 40 mg IVPUSH DAILY [facility] Last Admin: 10/17/17 09:57 Dose: 40 mg Heparin Sodium (Porcine) (Heparin -) 5,000 unit SQ BID [facility] Last Admin: 10/16/17 22:52 Dose: 5,000 unit Aztreonam (Azactam (Restricted To Id) -) 1 gm in 10 mls @ 100 mls/hr IVPUSH BID [facility] PRN Reason: Protocol Last Admin: 10/16/17 22:46 Dose: 100 mls/hr Metoprolol Tartrate (Lopressor -) 50 mg PEG TID [facility] Last Admin: 10/17/17 07:01 Dose: 50 mg Morphine Sulfate (Morphine Injection -) 2 mg IVPUSH Q8H PRN PRN Reason: PAIN Mupirocin (Bactroban 2% Cream -) 1 applic TP BID [facility] Last Admin: 10/16/17 22:52 Dose: 1 applic Olanzapine (Zyprexa -) 2.5 mg PO BID [facility] Last Admin: 10/16/17 22:53 Dose: 2.5 mg - Objective Vital Signs: Vital Signs Temperature 99.5 F 10/17/17 06:00 Pulse Rate 141 H 10/17/17 06:00 Respiratory Rate 25 H 10/17/17 09:20 Blood Pressure 127/88 10/17/17 06:00 O2 Sat by Pulse Oximetry (%) 99 10/16/17 10:00 Constitutional: Yes: Moderate Distress Cardiovascular: Yes: Tachycardia Respiratory: Yes: Mechanically Ventilated, Poor Air Entry, Wheezes Gastrointestinal: Yes: Soft Musculoskeletal: Yes: WNL Extremities: Yes: WNL Edema: No Peripheral Pulses WNL: Yes Neurological: Yes: Alert Psychiatric: Yes: Alert Labs: CBC, BMP 10/16/17 09:20 10/16/17 09:20 INR, PTT INR 1.11 (0.82-1.09) 10/15/17 21:16 Problem List - Problems (1) Acute and chronic respiratory failure Code(s): J96.20 - ACUTE AND CHR RESP FAILURE, UNSP W HYPOXIA OR HYPERCAPNIA Qualifiers: Respiratory failure complication: hypoxia and hypercapnia Qualified Code(s) : J96.21 - Acute and chronic respiratory failure with hypoxia; J96.22 - Acute and chronic respiratory failure with hypercapnia; J96.22 - Acute and chronic respiratory failure with hypercapnia; J96.22 - Acute and chronic respiratory failure with hypercapnia (2) Atrial flutter by electrocardiogram Code(s): I48.92 - UNSPECIFIED ATRIAL FLUTTER (3) Respiratory distress Code(s): R06.03 - ACUTE RESPIRATORY DISTRESS (4) Anemia Code(s): D64.9 - ANEMIA, UNSPECIFIED Qualifiers: Anemia type: unspecified type Qualified Code(s): D64.9 - Anemia, unspecified (5) History of alcohol abuse Code(s): Z87.898 - PERSONAL HISTORY OF OTHER SPECIFIED CONDITIONS Assessment/Plan see problem list
[2017-10-17] MEDS ORDERED: METOPROLOL TARTRATE 5 MG/5 ML VIAL ONE ×2 (10:48→13:08)
[2017-10-17] MEDS ORDERED: METOPROLOL TARTRATE 5 MG/5 ML VIAL IVPUSH ONE ×2 (10:54→20:46)
[2017-10-17 10:57] LABS: BASO % 0.2 % (0-2.0); MCHC 34.5 g/dl (32.0-35.9); WHITE BLOOD COUNT 7.2 K/mm3 (4.0-10.0)
[2017-10-17 10:59] LABS: MCH 29.8 pg (25.7-33.7); MEAN CELL VOLUME 86.4 fl (80-96); MEAN PLT VOLUME 6.3 fl (7.5-11.1); NEUT % 84.4 % (42.8-82.8); PLATELET COUNT 247 K/MM3 (134-434); RDW 15.9 % (11.9-15.9)
--- NOTE | 2017-10-17 11:05 | CON.GI ---
Consult Consult Specialty:: GI - History of Present Illness History of Present Illness: The patient is known to us from recent hospitalization. The patient was transferred to a NH/rehab 2 days ago after a prolonged, complicated by multiple , significant, acute events hospitalization. The patient was transferred back to yesterday after he was found on the floor, agitated. GI was called for anemia. No documented reports of susan GI bleeding, hematemeisis, hematochezia, melena while in AL. Hgb level on this admission was close to that on discharge. Pt received 2 units of PRBC. - History Source History Provided By: Medical Record, Transfer Record Limitations to Obtaining History: Clinical Condition - Past Medical History Cardio/Vascular: Yes: HTN Pulmonary: Yes: Pneumonia Musculoskeletal: Yes: Other (left rib pain ) Additional Medical History: chronic alcoholism with multiple detox and rehabs in the past.most recent at [facility] x 12 months - states he began drinking immediately after d/c . - Alcohol/Substance Use Hx Alcohol Use: Yes Number of Drinks Daily: 8 (He states he drinks about 8 16oz drinks per day) - Smoking History Smoking history: Former smoker Have you smoked in the past 12 months: No If you are a former smoker, when did you quit?: 42 years ago - Social History Usual Living Arrangement: [facility] Home Medications - Allergies Allergies/Adverse Reactions: Allergies Allergy/AdvReac Type Severity Reaction Status Date / Time No Known Allergies Allergy Verified 10/15/17 20:38 - Home Medications Home Medications: Ambulatory Orders Amiodarone HCl [Cordarone -] 200 mg PEG DAILY tablet 10/15/17 Folic Acid - 1 mg GT DAILY 10/15/17 Metoprolol Tartrate [Lopressor -] 50 mg PEG TID tablet 10/15/17 Mupirocin Cream [Bactroban 2% Cream -] 1 applic TP BID tube 10/15/17 Quetiapine Fumarate [Seroquel -] 25 mg PEG HS tablet 10/15/17 Thiamine HCl [Vitamin B1 -] 100 mg GT DAILY 10/15/17 Family Disease History - Family Disease History Family History: Unremarkable (non-contributory) Review of Systems Findings/Remarks: please see H&P, ED and NH records Physical Exam-GI Vital Signs: Vital Signs Temperature 99.5 F 10/17/17 06:00 Pulse Rate 141 H 10/17/17 06:00 Respiratory Rate 25 H 10/17/17 09:20 Blood Pressure 127/88 10/17/17 06:00 O2 Sat by Pulse Oximetry (%) 99 10/16/17 10:00 Constitutional: Yes: No Distress, Calm Eyes: Yes: Conjunctiva Clear HENT: Yes: Atraumatic Neck: Yes: Supple Cardiovascular: Yes: Tachycardia, Pulse Irregular Respiratory: Yes: Other (on vent support) ...Palpate: Yes: Soft, Other (PEG intact. No leak, or bleeding at the skin). No : Tenderness Neurological: Yes: Alert Labs: CBC, BMP 10/16/17 09:20 10/16/17 09:20 INR, PTT INR 1.11 (0.82-1.09) 10/15/17 21:16 Laboratory Results - last 24 hr 10/16/17 10/16/17 10/17/17 14:00 19:20 08:00 WBC RBC Hgb Hct MCV MCH MCHC RDW Plt Count MPV Neutrophils % Lymphocytes % Monocytes % Eosinophils % Basophils % Puncture Site Left radial Patient Temperature 102.9 ABG pH 7.42 ABG pCO2 at Pt Temp 29.3 L ABG pO2 at Pt Temp 101.0 H ABG HCO3 18.2 L ABG O2 Sat (Measured) 97.9 ABG O2 Content 12.5 L ABG Base Excess -4.3 L Anoop Test Positive O2 Delivery Device Mech vent Oxygen Flow Rate 30%+ tx 5l Vent Mode A/c Vent Rate 14 Mechanical Rate Yes PEEP 5.0 Pressure Support Vent 450 Sodium Potassium Chloride Carbon Dioxide Anion Gap BUN Creatinine Creat Clearance w eGFR Random Glucose Lactic Acid Calcium Ferritin Total Bilirubin AST ALT Alkaline Phosphatase Creatine Kinase Troponin I Total Protein Albumin Vitamin B12 Serum Folate Random Vancomycin 17.237 Blood Type O NEGATIVE Antibody Screen Negative Crossmatch See Detail 10/17/17 10/17/17 10/17/17 10:45 10:45 10:45 WBC 7.2 D RBC 3.06 L D Hgb 9.1 L D Hct 26.4 L D MCV 86.4 MCH 29.8 MCHC 34.5 RDW 15.9 Plt Count 247 D MPV 6.3 L Neutrophils % 84.4 H Lymphocytes % 6.0 L D Monocytes % 9.4 Eosinophils % 0.0 D Basophils % 0.2 Puncture Site Patient Temperature ABG pH ABG pCO2 at Pt Temp ABG pO2 at Pt Temp ABG HCO3 ABG O2 Sat (Measured) ABG O2 Content ABG Base Excess Anoop Test O2 Delivery Device Oxygen Flow Rate Vent Mode Vent Rate Mechanical Rate PEEP Pressure Support Vent Sodium 140 Potassium 3.9 Chloride 109 H Carbon Dioxide 21 Anion Gap 10 BUN 64 H Creatinine 2.8 H Creat Clearance w eGFR 22.65 Random Glucose 167 H D Lactic Acid 1.2 Calcium 8.3 L Ferritin 2966.304 H Total Bilirubin 0.8 D AST 24 D ALT 23 Alkaline Phosphatase 588 H Creatine Kinase 41 Troponin I 0.04 D Total Protein 8.7 H Albumin 2.4 L Vitamin B12 841 D Serum Folate 41 H Random Vancomycin Blood Type Antibody Screen Crossmatch 10/17/17 10:45 WBC RBC Hgb Hct MCV MCH MCHC RDW Plt Count MPV Neutrophils % Lymphocytes % Monocytes % Eosinophils % Basophils % Puncture Site Patient Temperature ABG pH ABG pCO2 at Pt Temp ABG pO2 at Pt Temp ABG HCO3 ABG O2 Sat (Measured) ABG O2 Content ABG Base Excess Anoop Test O2 Delivery Device Oxygen Flow Rate Vent Mode Vent Rate Mechanical Rate PEEP Pressure Support Vent Sodium Potassium Chloride Carbon Dioxide Anion Gap BUN Creatinine Creat Clearance w eGFR Random Glucose Lactic Acid Calcium Ferritin Cancelled Total Bilirubin AST ALT Alkaline Phosphatase Creatine Kinase Troponin I Total Protein Albumin Vitamin B12 Cancelled Serum Folate Cancelled Random Vancomycin Blood Type Antibody Screen Crossmatch Problem List - Problems (1) Acute and chronic respiratory failure Code(s): J96.20 - ACUTE AND CHR RESP FAILURE, UNSP W HYPOXIA OR HYPERCAPNIA Qualifiers: Respiratory failure complication: hypoxia and hypercapnia Qualified Code(s) : J96.21 - Acute and chronic respiratory failure with hypoxia; J96.22 - Acute and chronic respiratory failure with hypercapnia; J96.22 - Acute and chronic respiratory failure with hypercapnia; J96.22 - Acute and chronic respiratory failure with hypercapnia (2) Abuse, drug or alcohol Code(s): F19.10 - OTHER PSYCHOACTIVE SUBSTANCE ABUSE, UNCOMPLICATED (3) Acute diastolic heart failure Code(s): I50.31 - ACUTE DIASTOLIC (CONGESTIVE) HEART FAILURE (4) Alkaline phosphatase elevation Code(s): R74.8 - ABNORMAL LEVELS OF OTHER SERUM ENZYMES (5) Anemia Code(s): D64.9 - ANEMIA, UNSPECIFIED Qualifiers: Anemia type: unspecified type Qualified Code(s): D64.9 - Anemia, unspecified (6) Rectal ulcer Code(s): K62.6 - ULCER OF ANUS AND RECTUM Assessment/Plan A 67 yom with recent, prolonged, complicated hospitalization readmitted s/p fall and agitation. Anemia and elevated ALP were followed up until he was transferred to a AL 2 days ago. No changes in Hgb. The patient had EGD with PEG placement ~ 1.5 weeks ago. No abnormalities were noted in the duodenum, stomach, or esophagus. Pt had rectal bleed due to rectal tube irritation about 3 weeks ago. The bleeding stopped after the tube was removed. The anemia is likely multifactorial. A full colonoscopy is warranted and will be done on this admission once acute issues have been addressed Acute elevation in ALP was noted earlier this week. Medications (seroquel and amiodarone were suspected). Not on seroquel now. ALP is trending down now. Will continue to monitor closely continue gastrostomy feeds with PEG care protocol and aspiration precautions daily cbc, hepatic profile. avoid NSAIDs and anticoagulation if possible
[2017-10-17 11:25] LABS: ALBUMIN 2.4 g/dl (3.4-5.0); ANION GAP 10 (8-16); CALCIUM 8.3 mg/dL (8.5-10.1); CO2 21 mmol/L (21-32); GLUCOSE,RANDOM 167 mg/dL (74-106)
[2017-10-17 11:30] LABS: ALK PHOS 588 U/L (45-117); BILIRUBIN,TOTAL 0.8 mg/dL (0.2-1.0); CPK 41 IU/L (39-308); CREATININE 2.8 mg/dL (0.7-1.3); SGOT/AST 24 U/L (15-37); SGPT/ALT 23 U/L (12-78); TOT PROT 8.7 g/dl (6.4-8.2); TROPONIN I 0.04 ng/ml (0.00-0.05)
[2017-10-17 12:05] LABS: FERRITIN 2966.304 ng/ml (16.4-293.9)
--- NOTE | 2017-10-17 12:51 | EKG ---
Test Reason : Blood Pressure : / mmHG Vent. Rate : 147 BPM Atrial Rate : 294 BPM P-R Int : 000 ms QRS Dur : 078 ms QT Int : 294 ms P-R-T Axes : 000 000 -20 degrees QTc Int : 460 ms ATRIAL FLUTTER WITH 2:1 A-V CONDUCTION MINIMAL VOLTAGE CRITERIA FOR LVH, MAY BE NORMAL VARIANT ABNORMAL ECG WHEN COMPARED WITH ECG OF 16-OCT-2017 11:06, ATRIAL FLUTTER HAS REPLACED SINUS RHYTHM Confirmed by LEXIE ALVARES MD ([id number]) on 10/17/2017 12:51:00 PM Referred By: Confirmed By:LEXIE ALVARES MD
[2017-10-17] MEDS ORDERED: METOPROLOL TARTRATE 5 MG/5 ML VIAL IVPB ONE (13:14)
--- NOTE | 2017-10-17 13:14 | PN ---
Progress Note (short form) - Note Progress Note: PULMONARY Vented, awake. Rapid atrial fibrillation this AM. Last Vital Signs Temp Pulse Resp BP Pulse Ox 99.5 F 141 H 25 H 127/88 99 10/17/17 06:00 10/17/17 06:00 10/17/17 09:20 10/17/17 06:00 10/16/17 10:00 Gen: vented, awake Heart: tachycardic, irregular Lung: decreased breath sounds at the bases Abd: soft, nontender Ext: no edema CBC, BMP 10/17/17 10:45 10/17/17 10:45 Active Medications Acetaminophen (Tylenol Oral Solution -) 650 mg GT Q6H PRN PRN Reason: FEVER OR PAIN Last Admin: 10/17/17 10:39 Dose: 650 mg Acetylcysteine (Mucomyst 20 Oral / Inh Use Only*) 400 mg NEB BID [facility] Albuterol Sulfate (Ventolin 0.083% Nebulizer Soln -) 1 amp NEB Q4H PRN Amiodarone HCl (Cordarone -) 200 mg PEG DAILY [facility] Last Admin: 10/17/17 10:27 Dose: 200 mg Folic Acid (Folic Acid -) 1 mg GT DAILY [facility] Last Admin: 10/17/17 10:24 Dose: 1 mg Furosemide (Lasix Injection -) 40 mg IVPUSH DAILY [facility] Last Admin: 10/17/17 09:57 Dose: 40 mg Heparin Sodium (Porcine) (Heparin -) 5,000 unit SQ BID [facility] Last Admin: 10/17/17 10:24 Dose: 5,000 unit Aztreonam (Azactam (Restricted To Id) -) 1 gm in 10 mls @ 100 mls/hr IVPUSH BID [facility] PRN Reason: Protocol Last Admin: 10/17/17 10:23 Dose: 100 mls/hr Metoprolol Tartrate (Lopressor -) 50 mg PEG TID [facility] Last Admin: 10/17/17 07:01 Dose: 50 mg Morphine Sulfate (Morphine Injection -) 2 mg IVPUSH Q8H PRN PRN Reason: PAIN Mupirocin (Bactroban 2% Cream -) 1 applic TP BID [facility] Last Admin: 10/17/17 10:23 Dose: 1 applic Olanzapine (Zyprexa -) 2.5 mg PO BID [facility] Last Admin: 10/17/17 10:24 Dose: 2.5 mg A/P Vent Dependent Chronic Respiratory Failure r/o Pneumonia Atrial Fibrillation with RVR Acute on Chronic Renal Failure Loculated Pleural Effusions Anemia - lopressor IV - if unable to rate control with IV boluses, may need transfer to ICU for drip - antibiotics per ID - if fevers persist, may need to re-image chest as he had loculated effusions last admission - speaking valve - spontaneous breathing trials as tolerated - enteral feeds - DVT/GI prophylaxis
--- NOTE | 2017-10-17 14:30 | PN ---
Progress Note, Physician Chief Complaint: ID Vancocyicin and Aztreonam - Current Medication List Current Medications: Active Medications Acetaminophen (Tylenol Oral Solution -) 650 mg GT Q6H PRN PRN Reason: FEVER OR PAIN Last Admin: 10/17/17 10:39 Dose: 650 mg Acetylcysteine (Mucomyst 20 Oral / Inh Use Only*) 400 mg NEB BID [facility] Albuterol Sulfate (Ventolin 0.083% Nebulizer Soln -) 1 amp NEB Q4H PRN Amiodarone HCl (Cordarone -) 200 mg PEG DAILY [facility] Last Admin: 10/17/17 10:27 Dose: 200 mg Folic Acid (Folic Acid -) 1 mg GT DAILY [facility] Last Admin: 10/17/17 10:24 Dose: 1 mg Furosemide (Lasix Injection -) 40 mg IVPUSH DAILY [facility] Last Admin: 10/17/17 09:57 Dose: 40 mg Heparin Sodium (Porcine) (Heparin -) 5,000 unit SQ BID [facility] Last Admin: 10/17/17 10:24 Dose: 5,000 unit Aztreonam (Azactam (Restricted To Id) -) 1 gm in 10 mls @ 100 mls/hr IVPUSH BID [facility] PRN Reason: Protocol Last Admin: 10/17/17 10:23 Dose: 100 mls/hr Metoprolol Tartrate (Lopressor -) 50 mg PEG TID [facility] Last Admin: 10/17/17 13:56 Dose: 50 mg Morphine Sulfate (Morphine Injection -) 2 mg IVPUSH Q8H PRN PRN Reason: PAIN Mupirocin (Bactroban 2% Cream -) 1 applic TP BID [facility] Last Admin: 10/17/17 10:23 Dose: 1 applic Olanzapine (Zyprexa -) 2.5 mg PO BID [facility] Last Admin: 10/17/17 10:24 Dose: 2.5 mg - Objective Vital Signs: Vital Signs Temperature 99.6 F 10/17/17 13:00 Pulse Rate 147 H 10/17/17 10:59 Respiratory Rate 27 H 10/17/17 13:45 Blood Pressure 136/95 10/17/17 10:59 O2 Sat by Pulse Oximetry (%) 99 10/16/17 10:00 Neck: Yes: Other (trach) Cardiovascular: Yes: S1, S2 Respiratory: Yes: WNL, Regular, CTA Bilaterally, Diminished Gastrointestinal: Yes: Soft. No: Tenderness Labs: CBC, BMP 10/17/17 10:45 10/17/17 10:45 INR, PTT INR 1.11 (0.82-1.09) 10/15/17 21:16 Assessment/Plan Microbiology 10/15/17 22:45 Urine - Urine Freeman Urine Culture - Final NO GROWTH OBTAINED 10/16/17 02:35 Blood - Peripheral Venous Blood Culture - Preliminary NO GROWTH OBTAINED AFTER 24 HOURS, INCUBATION TO CONTINUE FOR 4 DAYS. 10/16/17 02:30 Blood - Peripheral Venous Blood Culture - Preliminary NO GROWTH OBTAINED AFTER 24 HOURS, INCUBATION TO CONTINUE FOR 4 DAYS. Laboratory Tests 10/17/17 10/17/17 10/17/17 08:00 10:45 10:45 WBC 7.2 D Hgb 9.1 L D Hct 26.4 L D Plt Count 247 D BUN 64 H Creatinine 2.8 H Creat Clearance w eGFR 22.65 Total Bilirubin 0.8 D AST 24 D ALT 23 Alkaline Phosphatase 588 H Random Vancomycin 17.237 Assessment Fever and tachycardia MRSA bacteremia with osteomyelitis Secondary infection ? PNEUMONIA considered Plan Vanco 500mg daily Aztreonam Send sputum and urine culture Esau EMERY
[2017-10-17] MEDS ORDERED: VANCOMYCIN 500 MG in DEXTROSE 5%-WATER - 250 ML IVPB SCH (15:00)
[2017-10-17] MEDS: VANCOMYCIN 500 MG in DEXTROSE 5%-WATER - 100 ML IVPB SCH (15:52)
--- NOTE | 2017-10-17 16:39 | CONSULT ---
Consult Consult Specialty:: hematology - History of Present Illness History of Present Illness: 67yo man with over 1 month stay in ICU who was discharged a day prior to [facility] and [facility] after he fell out of bed (unwitnessed) and was found supine on the floor. While at [facility] he was agitated and pulling at ventilator tubing. Briefly, he has PMH of EtOH abuse, severe sepsis 2/2 R cavitary PNA s/p chest tube, MSSA bacteremia, vertebral osteomyelitis, recurrent Afib, and chronic vent dependence. Hematology consulted for anemia - Past Medical History Cardio/Vascular: Yes: HTN Pulmonary: Yes: Pneumonia Musculoskeletal: Yes: Other (left rib pain ) Additional Medical History: chronic alcoholism with multiple detox and rehabs in the past.most recent at [facility] x 12 months - states he began drinking immediately after d/c . - Alcohol/Substance Use Hx Alcohol Use: Yes Number of Drinks Daily: 8 (He states he drinks about 8 16oz drinks per day) - Smoking History Smoking history: Former smoker Have you smoked in the past 12 months: No If you are a former smoker, when did you quit?: 42 years ago - Social History Usual Living Arrangement: Correction ADL: Independent Home Medications - Allergies Allergies/Adverse Reactions: Allergies Allergy/AdvReac Type Severity Reaction Status Date / Time No Known Allergies Allergy Verified 10/15/17 20:38 - Home Medications Home Medications: Ambulatory Orders Amiodarone HCl [Cordarone -] 200 mg PEG DAILY tablet 10/15/17 Folic Acid - 1 mg GT DAILY 10/15/17 Metoprolol Tartrate [Lopressor -] 50 mg PEG TID tablet 10/15/17 Mupirocin Cream [Bactroban 2% Cream -] 1 applic TP BID tube 10/15/17 Quetiapine Fumarate [Seroquel -] 25 mg PEG HS tablet 10/15/17 Thiamine HCl [Vitamin B1 -] 100 mg GT DAILY 10/15/17 Review of Systems Findings/Remarks: Unable to obtain ROS due to pts clinical condition Physical Exam Vital Signs: Vital Signs Temperature 99.5 F 10/17/17 14:54 Pulse Rate 152 H 10/17/17 14:54 Respiratory Rate 20 10/17/17 14:54 Blood Pressure 142/89 10/17/17 14:54 O2 Sat by Pulse Oximetry (%) 90 L 10/17/17 08:00 Constitutional: Yes: Mild Distress, Poor Hygeine HENT: Yes: Atraumatic, Normocephalic Neck: Yes: Other (trach to vent) Respiratory: Yes: Mechanically Ventilated, Rhonchi Extremities: Yes: Erythema, Other (on the norris) Edema: Yes Psychiatric: Yes: Alert Labs: CBC, BMP 10/17/17 10:45 10/17/17 10:45 Imaging - Results X-ray: Report Reviewed Problem List - Problems (1) Anemia Code(s): D64.9 - ANEMIA, UNSPECIFIED Qualifiers: Anemia type: unspecified type Qualified Code(s): D64.9 - Anemia, unspecified (2) Agitation Code(s): R45.1 - RESTLESSNESS AND AGITATION (3) Failure to thrive in adult Code(s): R62.7 - ADULT FAILURE TO THRIVE (4) Paroxysmal atrial fibrillation Code(s): I48.0 - PAROXYSMAL ATRIAL FIBRILLATION (5) Respiratory failure with hypoxia Code(s): J96.91 - RESPIRATORY FAILURE, UNSPECIFIED WITH HYPOXIA Qualifiers: Chronicity: acute Qualified Code(s): J96.01 - Acute respiratory failure with hypoxia (6) Gastric ulcer Code(s): K25.9 - GASTRIC ULCER, UNSP ACUTE OR CHRONIC, W/O HEMOR OR PERF Assessment/Plan multifactorial anemia fu on screening tests. egd negative when stable, for colonoscopy. transfusion support as needed.
--- NOTE | 2017-10-17 17:03 | CONSULT ---
Consult Consult Specialty:: Nephrology Reason for Consultation:: ALEXANDRA resolving - History of Present Illness Chief Complaint: s/p fall History of Present Illness: Pt is a 67 year old male with pmhx of ALEXANDRA which is resolving, anemia, pleural effusions, and resp failure requiring trache. He was discharged from the hospital a few days ago to rehab. Pt suffered a fall and was sent back to the hospital. He is awake and his mental status appears preserved. Hi renal function today is worse than yesterday. He remain on the vent. - History Source History Provided By: Medical Record - Past Medical History Cardio/Vascular: Yes: HTN Pulmonary: Yes: Pneumonia, Other (resp failure with tracke) Renal/: Yes: Renal Failure, Renal Inusuff Heme/Onc: Yes: Anemia Musculoskeletal: Yes: Other (left rib pain ) Additional Medical History: chronic alcoholism with multiple detox and rehabs in the past.most recent at [facility] x 12 months - states he began drinking immediately after d/c . - Past Surgical History Additional Surgical History: trache, peg, chest tube - Alcohol/Substance Use Hx Alcohol Use: Yes Number of Drinks Daily: 8 (He states he drinks about 8 16oz drinks per day) - Smoking History Smoking history: Former smoker Have you smoked in the past 12 months: No If you are a former smoker, when did you quit?: 42 years ago - Social History Usual Living Arrangement: Senior Living ADL: Independent Home Medications - Allergies Allergies/Adverse Reactions: Allergies Allergy/AdvReac Type Severity Reaction Status Date / Time No Known Allergies Allergy Verified 10/15/17 20:38 - Home Medications Home Medications: Ambulatory Orders Amiodarone HCl [Cordarone -] 200 mg PEG DAILY tablet 10/15/17 Folic Acid - 1 mg GT DAILY 10/15/17 Metoprolol Tartrate [Lopressor -] 50 mg PEG TID tablet 10/15/17 Mupirocin Cream [Bactroban 2% Cream -] 1 applic TP BID tube 10/15/17 Quetiapine Fumarate [Seroquel -] 25 mg PEG HS tablet 10/15/17 Thiamine HCl [Vitamin B1 -] 100 mg GT DAILY 10/15/17 Family Disease History - Family Disease History Family History: Unable to Obtain Review of Systems Unable to obtain ROS, reason: pt trached and not verbal Physical Exam Vital Signs: Vital Signs Temperature 99.5 F 10/17/17 14:54 Pulse Rate 152 H 10/17/17 14:54 Respiratory Rate 20 10/17/17 14:54 Blood Pressure 142/89 10/17/17 14:54 O2 Sat by Pulse Oximetry (%) 90 L 10/17/17 08:00 Constitutional: Yes: Calm Eyes: Yes: Conjunctiva Clear HENT: Yes: Other (trache) Cardiovascular: Yes: S1, S2 Respiratory: Yes: Mechanically Ventilated Gastrointestinal: Yes: Soft, Other (peg) Renal/: Yes: Incontinence Musculoskeletal: Yes: Muscle Weakness Edema: LUE: Trace, RUE: Trace, LLE: Trace, RLE: Trace Neurological: Yes: Oriented Labs: CBC, BMP 10/17/17 10:45 10/17/17 10:45 Laboratory Tests 10/12/17 10/14/17 10/15/17 05:05 05:00 05:00 Hgb Sodium Potassium Chloride Carbon Dioxide Anion Gap BUN Creatinine 3.4 H 3.0 H 2.8 H 10/15/17 10/15/17 10/16/17 21:16 21:16 09:20 Hgb 7.6 L 6.8 L* D Sodium Potassium Chloride Carbon Dioxide Anion Gap BUN Creatinine 2.8 H 10/16/17 10/17/17 10/17/17 09:20 10:45 10:45 Hgb 9.1 L D Sodium 140 Potassium 3.9 Chloride 109 H Carbon Dioxide 21 Anion Gap 10 BUN 64 H Creatinine 2.7 H 2.8 H Imaging - Results Chest X-ray: Report Reviewed Problem List - Problems (1) Acute and chronic respiratory failure Code(s): J96.20 - ACUTE AND CHR RESP FAILURE, UNSP W HYPOXIA OR HYPERCAPNIA Qualifiers: Respiratory failure complication: hypoxia and hypercapnia Qualified Code(s) : J96.21 - Acute and chronic respiratory failure with hypoxia; J96.22 - Acute and chronic respiratory failure with hypercapnia; J96.22 - Acute and chronic respiratory failure with hypercapnia; J96.22 - Acute and chronic respiratory failure with hypercapnia (2) Agitation Code(s): R45.1 - RESTLESSNESS AND AGITATION (3) Atrial flutter by electrocardiogram Code(s): I48.92 - UNSPECIFIED ATRIAL FLUTTER (4) Respiratory distress Code(s): R06.03 - ACUTE RESPIRATORY DISTRESS (5) Acute kidney injury Code(s): N17.9 - ACUTE KIDNEY FAILURE, UNSPECIFIED (6) Anemia Code(s): D64.9 - ANEMIA, UNSPECIFIED Qualifiers: Anemia type: unspecified type Qualified Code(s): D64.9 - Anemia, unspecified Assessment/Plan Current Medications Generic Name Dose Route Start Last Admin Trade Name Freq PRN Reason Stop Dose Admin Acetaminophen 650 mg 10/16/17 13:06 10/17/17 10:39 Tylenol Oral Solution - GT 650 mg Q6H PRN Administration FEVER OR PAIN Acetylcysteine 400 mg 10/17/17 22:00 Mucomyst 20 Oral / Inh Use Only* NEB BID [facility] Albuterol Sulfate 1 amp 10/17/17 10:30 Ventolin 0.083% Nebulizer Soln - [facility] Q4H PRN Amiodarone HCl 200 mg 10/16/17 10:00 10/17/17 10:27 Cordarone - PEG 200 mg DAILY [facility] Administration Chlorhexidine Gluconate 1 applic 10/17/17 22:00 Hibiclens For Decolonization - TP HS [facility] Folic Acid 1 mg 10/16/17 10:00 10/17/17 10:24 Folic Acid - GT 1 mg DAILY [facility] Administration Furosemide 40 mg 10/16/17 13:00 10/17/17 09:57 Lasix Injection - IVPUSH 40 mg DAILY [facility] Administration Heparin Sodium (Porcine) 5,000 unit 10/16/17 10:00 10/17/17 10:24 Heparin - SQ 5,000 unit BID [facility] Administration Aztreonam 1 gm in 10 mls @ 100 mls/hr 10/16/17 16:15 10/17/17 10:23 Azactam (Restricted To Id) - IVPUSH 100 mls/hr BID [facility] Administration Protocol Vancomycin HCl 500 mg/ 100 mls @ 100 mls/hr 10/17/17 15:00 10/17/17 15:52 Dextrose IVPB 100 mls/hr DAILY@1500 [facility] Administration Protocol Metoprolol Tartrate 50 mg 10/16/17 06:00 10/17/17 13:56 Lopressor - PEG 50 mg TID [facility] Administration Morphine Sulfate 2 mg 10/17/17 10:16 Morphine Injection - IVPUSH Q8H PRN PAIN Mupirocin 1 applic 10/16/17 10:00 10/17/17 10:23 Bactroban 2% Cream - TP 1 applic BID [facility] Administration Mupirocin 1 applic 10/17/17 22:00 Bactroban Ointment (For Decolonization) - NS 10/22/17 21:59 BID [facility] Olanzapine 2.5 mg 10/16/17 15:00 10/17/17 10:24 Zyprexa - PO 2.5 mg BID [facility] Administration Impression 1. ALEXANDRA 2. fluid overload 3. hypoalbuminemia 4. respiratory failure requiring intubation 5. anemia 6. etoh abuse 7. fevers 8. hypokalemia 9. pleural effusion 10. hypernatremia 11. GI bleed 12. rash 13. a flutter Plan - agree with lasix - repeat labs in am - vent support - urology input appreciated - monitor pita
[2017-10-17] MEDS ORDERED: QUEtiapine FUMARATE 25 MG TABLET (FP) PO ONE (20:42)
--- NOTE | 2017-10-17 20:54 | CONSULT ---
Consult Consult Specialty:: Pulmonary and critical care Reason for Consultation:: Rapid atrial fibrillation - History of Present Illness History of Present Illness: This is a 67 year old man with a pmhx of ETOH abuse, infections (klebsiella in urine, MRSA in sputum), osteomyelitis, and chronic atrial fibrillation who was recently hospitalized here for a prolonged time period now ventilator dependent. Patient returned s/p fall found to have low grade fever, tachypnea, and worsening chest imaging concerning for pneumonia. He was doing well on the floor though today developed sudden onset rapid atrial fibrillation. Received a total of 7.5mg of Lopressor and was admitted to the ICU. HR and rhythm has returned to baseline. - Past Medical History Cardio/Vascular: Yes: HTN Pulmonary: Yes: Pneumonia, Other (resp failure with tracke) Renal/: Yes: Renal Failure, Renal Inusuff Musculoskeletal: Yes: Other (left rib pain ) Additional Medical History: chronic alcoholism with multiple detox and rehabs in the past.most recent at [facility] x 12 months - states he began drinking immediately after d/c . - Past Surgical History Additional Surgical History: trache, peg, chest tube - Alcohol/Substance Use Hx Alcohol Use: Yes Number of Drinks Daily: 8 (He states he drinks about 8 16oz drinks per day) - Smoking History Smoking history: Former smoker Have you smoked in the past 12 months: No If you are a former smoker, when did you quit?: 42 years ago - Social History Usual Living Arrangement: Correction ADL: Independent Home Medications - Allergies Allergies/Adverse Reactions: Allergies Allergy/AdvReac Type Severity Reaction Status Date / Time No Known Allergies Allergy Verified 10/15/17 20:38 - Home Medications Home Medications: Ambulatory Orders Amiodarone HCl [Cordarone -] 200 mg PEG DAILY tablet 10/15/17 Folic Acid - 1 mg GT DAILY 10/15/17 Metoprolol Tartrate [Lopressor -] 50 mg PEG TID tablet 10/15/17 Mupirocin Cream [Bactroban 2% Cream -] 1 applic TP BID tube 10/15/17 Quetiapine Fumarate [Seroquel -] 25 mg PEG HS tablet 10/15/17 Thiamine HCl [Vitamin B1 -] 100 mg GT DAILY 10/15/17 Physical Exam Vital Signs: Vital Signs Temperature 99.4 F 10/17/17 19:00 Pulse Rate 142 H 10/17/17 19:00 Respiratory Rate 25 H 10/17/17 20:36 Blood Pressure 136/84 10/17/17 19:00 O2 Sat by Pulse Oximetry (%) 90 L 10/17/17 08:00 Constitutional: Yes: Anxious Eyes: Yes: WNL HENT: Yes: WNL Neck: Yes: WNL Cardiovascular: Yes: Regular Rate and Rhythm Gastrointestinal: Yes: Hyperactive Bowel Sounds Extremities: Yes: Erythema Edema: No Edema: LUE: Trace, RUE: Trace, LLE: Trace, RLE: Trace Peripheral Pulses WNL: Yes Neurological: Yes: Confusion Labs: CBC, BMP 10/17/17 10:45 10/17/17 10:45 Assessment/Plan This is a 67 year old man with multiple medical problems now ventilator dependent, presents to the ICU s/p sudden onset of rapid atrial fibrillation now resolved. #Lopressor IV standing and PRN #Antibiotics per ID #Consider repeat chest imaging #Continue ventilator weaning #Enteral feedings #Bowel regimen #Electrolyte control #Dose of Seroquel given for delirium and agitation #DVT/GI ppx 35' CCT
[2017-10-17] MEDS: CHLORHEXIDINE GLUCONATE 4% CLEANSER FOR DECOLONIZATION TP SCH (21:01)
[2017-10-17] MEDS ORDERED: ACETYLCYSTEINE 20% 200MG/ML 30 ML VIAL *FOR ORAL / INH USE ONLY NEB SCH (22:00)
[2017-10-17] MEDS: ACETYLCYSTEINE 20% 200MG/ML 30 ML VIAL *FOR ORAL / INH USE ONLY NEB SCH (22:47)
[2017-10-17] MEDS: ALBUTEROL SO4 0.083% IH SOL 2.5 MG/3 ML VIAL.NEB. NEB PRN (23:48)
[2017-10-18 06:08] LABS: SERUM IRON 116 ug/dL (38-169); TOTAL IRON BINDING CAPACITY 211 ug/dL (250-450); UIBC 95 ug/dL (111-343)
[2017-10-18 06:23] LABS: BASO % 0.7 % (0-2.0); EOS % 2.7 % (0-4.5); MCH 30.7 pg (25.7-33.7); MCHC 35.1 g/dl (32.0-35.9); MEAN CELL VOLUME 87.5 fl (80-96); MEAN PLT VOLUME 6.8 fl (7.5-11.1); NEUT % 67.6 % (42.8-82.8); PLATELET COUNT 274 K/MM3 (134-434); RDW 16.5 % (11.9-15.9); WHITE BLOOD COUNT 7.2 K/mm3 (4.0-10.0)
[2017-10-18] MEDS: METOPROLOL TARTRATE 50 MG TABLET (FP) PEG SCH ×3 (06:37→21:10)
[2017-10-18] MEDS ORDERED: PT OWN MED DRAWER 7, Y5N ONE ×8 (06:41→21:10)
[2017-10-18] MEDS ORDERED: INSULIN (NOVOLOG) ASPART 100 UNITS/ML 10ML VIAL ONE (06:41)
[2017-10-18 06:50] LABS: ALBUMIN 2.3 g/dl (3.4-5.0); ANION GAP 11 (8-16); CALCIUM 8.1 mg/dL (8.5-10.1); CO2 23 mmol/L (21-32); GLUCOSE,RANDOM 132 mg/dL (74-106)
[2017-10-18 07:08] LABS: ALK PHOS 448 U/L (45-117); BILIRUBIN,TOTAL 0.9 mg/dL (0.2-1.0); LDH 237 U/L (87-241); SGOT/AST 25 U/L (15-37); SGPT/ALT 21 U/L (12-78); TOT PROT 7.8 g/dl (6.4-8.2)
[2017-10-18] MEDS: AZTREONAM 1 GRAM SYRINGE 1 GM/10 ML DISP.SYRIN IVPUSH SCH (09:03)
[2017-10-18] MEDS: HEPARIN NA (PORCINE) 5,000 UNITS/ML 1ML VIAL SQ SCH ×2 (09:04→21:10)
[2017-10-18] MEDS: AMIODARONE HCL 200 MG TABLET (FP) PEG SCH (09:04)
[2017-10-18] MEDS: FOLIC ACID 1 MG TABLET (FP) GT SCH (09:04)
[2017-10-18] MEDS: FUROSEMIDE 40 MG/4 ML INJECTABLE VIAL IVPUSH SCH (09:05)
[2017-10-18] MEDS: MUPIROCIN CA 2% TOPICAL CREAM 15 GM TUBE TP SCH ×2 (09:06→21:12)
--- NOTE | 2017-10-18 09:31 | PN ---
Progress Note (short form) - Note Progress Note: awake and alert transferred to ICU for afib now hemodynamically stable trach to vent following commands wants to eat no visual complaints- denies vision loss Vital Signs Period Temp Pulse Resp BP Sys/Jeff Pulse Ox Last 24 Hr 97.5 F-100.3 F 77-152 16-222 105-169/59-102 100-100 left eye with conjunctival hemorrhage? cor-rrr lungs decreased bs at bases abd soft, nt +GT no abd pain ext no edema no rash skin abrasions on the legs, no sacral skin breakdown CBC, BMP 10/18/17 05:00 10/18/17 05:00 Microbiology 10/16/17 02:35 Blood - Peripheral Venous Yeast/Fungus Identification - Preliminary 10/16/17 02:30 Blood - Peripheral Venous Blood Culture - Preliminary Yeast Like Organism 10/16/17 02:35 Blood - Peripheral Venous Blood Culture - Preliminary NO GROWTH OBTAINED AFTER 48 HOURS, INCUBATION TO CONTINUE FOR 3 DAYS. 10/15/17 22:45 Urine - Urine Freeman Urine Culture - Final NO GROWTH OBTAINED cxray improved congestion Current Medications Acetaminophen (Tylenol Oral Solution -) 650 mg GT Q6H PRN PRN Reason: FEVER OR PAIN Last Admin: 10/17/17 20:59 Dose: 650 mg Acetylcysteine (Mucomyst 20 Oral / Inh Use Only*) 400 mg NEB BID [facility] Last Admin: 10/17/17 22:47 Dose: 400 mg Albuterol Sulfate (Ventolin 0.083% Nebulizer Soln -) 1 amp NEB Q4H PRN Last Admin: 10/17/17 23:48 Dose: 1 amp Amiodarone HCl (Cordarone -) 200 mg PEG DAILY [facility] Last Admin: 10/18/17 09:04 Dose: 200 mg Chlorhexidine Gluconate (Hibiclens For Decolonization -) 1 applic TP HS [facility] Last Admin: 10/17/17 21:01 Dose: 1 applic Folic Acid (Folic Acid -) 1 mg GT DAILY [facility] Last Admin: 10/18/17 09:04 Dose: 1 mg Furosemide (Lasix Injection -) 40 mg IVPUSH DAILY [facility] Last Admin: 10/18/17 09:05 Dose: 40 mg Heparin Sodium (Porcine) (Heparin -) 5,000 unit SQ BID [facility] Last Admin: 10/18/17 09:04 Dose: 5,000 unit Aztreonam (Azactam (Restricted To Id) -) 1 gm in 10 mls @ 100 mls/hr IVPUSH BID [facility] PRN Reason: Protocol Last Admin: 10/18/17 09:03 Dose: 100 mls/hr Vancomycin HCl 500 mg/ (Dextrose) 100 mls @ 100 mls/hr IVPB DAILY@1500 [facility] PRN Reason: Protocol Last Admin: 10/17/17 15:52 Dose: 100 mls/hr Caspofungin 70 mg/ Sodium (Chloride) 250 mls @ 250 mls/hr IV ONCE ONE Stop: 10/18/17 10:21 Caspofungin 50 mg/ Sodium (Chloride) 250 mls @ 250 mls/hr IV DAILY [facility] Metoprolol Tartrate (Lopressor -) 50 mg PEG TID [facility] Last Admin: 10/18/17 06:37 Dose: 50 mg Metoprolol Tartrate (Lopressor Injection -) 5 mg IVPUSH ONCE PRN PRN Reason: HYPERTENSION Morphine Sulfate (Morphine Injection -) 2 mg IVPUSH Q8H PRN PRN Reason: PAIN Last Admin: 10/17/17 22:40 Dose: 2 mg Mupirocin (Bactroban 2% Cream -) 1 applic TP BID [facility] Last Admin: 10/18/17 09:06 Dose: 1 applic Mupirocin (Bactroban Ointment (For Decolonization) -) 1 applic NS BID [facility] Stop: 10/22/17 21:59 Olanzapine (Zyprexa -) 2.5 mg PO BID [facility] Last Admin: 10/17/17 23:00 Dose: 2.5 mg a/p fungemia- repeat blood cultures sent optho evaluation echo cancidas alk phos trending down- cannot do ct scan with contrast with elevated alk phos-? hepatosplenic candidiasis- do not think imaging would change our present management-recent sonogram 10/14 with distended gallbladder but no signs of stone disease crp MSSA bacteremia/vertebral osteo T9/T10 day #42 of 56 order vanco trough worsening renal function-suspect secondary to diuresis, cxray has improved history of possible AIN chronic resp failure d/c azactam- doubt pneumonia over 35 minutes spent in the care of this critically ill ICU patient d/w ICU resident who will order opthomology evaluation
--- NOTE | 2017-10-18 10:05 | PN ---
Teaching Attending Note Name of Resident: Vipul Rice ATTENDING PHYSICIAN STATEMENT I saw and evaluated the patient. I reviewed the resident's note and discussed the case with the resident. I agree with the resident's findings and plan as documented. SUBJECTIVE: Vented, awake. HR better controlled. AC Mode of vent. Intake & Output 10/15/17 10/16/17 10/17/17 10/18/17 23:59 23:59 23:59 23:59 Intake Total 605 1150 525 Output Total 2 Balance 605 1148 525 Weight 170 lb 185 lb 6.4 oz Last Vital Signs Temp Pulse Resp BP Pulse Ox 97.9 F 75 20 139/84 100 10/18/17 12:00 10/18/17 12:00 10/18/17 12:00 10/18/17 12:00 10/18/17 11:50 Active Medications Acetaminophen (Tylenol Oral Solution -) 650 mg GT Q6H PRN PRN Reason: FEVER OR PAIN Last Admin: 10/17/17 20:59 Dose: 650 mg Acetylcysteine (Mucomyst 20 Oral / Inh Use Only*) 400 mg NEB BID [facility] Last Admin: 10/18/17 10:30 Dose: 400 mg Albuterol Sulfate (Ventolin 0.083% Nebulizer Soln -) 1 amp NEB Q4H PRN Last Admin: 10/18/17 10:30 Dose: 1 amp Amiodarone HCl (Cordarone -) 200 mg PEG DAILY [facility] Last Admin: 10/18/17 09:04 Dose: 200 mg Chlorhexidine Gluconate (Hibiclens For Decolonization -) 1 applic TP HS [facility] Last Admin: 10/17/17 21:01 Dose: 1 applic Folic Acid (Folic Acid -) 1 mg GT DAILY [facility] Last Admin: 10/18/17 09:04 Dose: 1 mg Furosemide (Lasix Injection -) 40 mg IVPUSH DAILY [facility] Last Admin: 10/18/17 09:05 Dose: 40 mg Heparin Sodium (Porcine) (Heparin -) 5,000 unit SQ BID [facility] Last Admin: 10/18/17 09:04 Dose: 5,000 unit Vancomycin HCl 500 mg/ (Dextrose) 100 mls @ 100 mls/hr IVPB DAILY@1500 [facility] PRN Reason: Protocol Last Admin: 10/17/17 15:52 Dose: 100 mls/hr Caspofungin 70 mg/ Sodium (Chloride) 250 mls @ 250 mls/hr IV ONCE ONE Stop: 10/18/17 12:59 Caspofungin 50 mg/ Sodium (Chloride) 250 mls @ 250 mls/hr IV DAILY [facility] Metoprolol Tartrate (Lopressor -) 50 mg PEG TID [facility] Last Admin: 10/18/17 06:37 Dose: 50 mg Morphine Sulfate (Morphine Injection -) 2 mg IVPUSH Q8H PRN PRN Reason: PAIN Last Admin: 10/17/17 22:40 Dose: 2 mg Mupirocin (Bactroban 2% Cream -) 1 applic TP BID [facility] Last Admin: 10/18/17 09:06 Dose: 1 applic Mupirocin (Bactroban Ointment (For Decolonization) -) 1 applic NS BID [facility] Stop: 10/22/17 21:59 Olanzapine (Zyprexa -) 2.5 mg PO BID [facility] Last Admin: 10/18/17 12:06 Dose: 2.5 mg Gen: vented, awake Heart: tachycardic, irregular Lung: decreased breath sounds at the bases Abd: soft, nontender Ext: no edema Laboratory Results - last 24 hr 10/17/17 10/17/17 10/18/17 10:45 11:35 05:00 WBC 7.2 RBC 2.89 L Hgb 8.8 L Hct 25.2 L MCV 87.5 MCH 30.7 MCHC 35.1 RDW 16.5 H Plt Count 274 MPV 6.8 L Neutrophils % 67.6 Lymphocytes % 14.8 D Monocytes % 14.2 H Eosinophils % 2.7 D Basophils % 0.7 D Retic Count Sodium Potassium Chloride Carbon Dioxide Anion Gap BUN Creatinine Creat Clearance w eGFR Random Glucose Lactic Acid Calcium Iron 116 TIBC 211 L Iron Saturation 55 Total Bilirubin AST ALT Alkaline Phosphatase LD Total B-Natriuretic Peptide Total Protein Albumin Vitamin B12 841 D Serum Folate 41 H 10/18/17 10/18/17 10/18/17 05:00 05:00 05:00 WBC RBC Hgb Hct MCV MCH MCHC RDW Plt Count MPV Neutrophils % Lymphocytes % Monocytes % Eosinophils % Basophils % Retic Count 0.97 Sodium 144 Potassium 3.1 L D Chloride 110 H Carbon Dioxide 23 Anion Gap 11 BUN 72 H Creatinine 3.0 H Creat Clearance w eGFR 20.91 Random Glucose 132 H D Lactic Acid 1.0 Calcium 8.1 L Iron TIBC Iron Saturation Total Bilirubin 0.9 AST 25 ALT 21 Alkaline Phosphatase 448 H D LD Total 237 D B-Natriuretic Peptide 20292.15 H Total Protein 7.8 Albumin 2.3 L Vitamin B12 Serum Folate A/P Vent Dependent Chronic Respiratory Failure r/o Pneumonia Atrial Fibrillation with RVR Acute on Chronic Renal Failure Loculated Pleural Effusions Anemia - Rate control - antibiotics per ID - Wean trials as tolerated - enteral feeds - DVT/GI prophylaxis - Vent floor monitoring Dr Griffin Critical care time spent in reviewing chart, evaluating patient and formulating plan - 36 minutes.
[2017-10-18] MEDS: ACETYLCYSTEINE 20% 200MG/ML 30 ML VIAL *FOR ORAL / INH USE ONLY NEB SCH ×2 (10:30→22:39)
[2017-10-18] MEDS: ALBUTEROL SO4 0.083% IH SOL 2.5 MG/3 ML VIAL.NEB. NEB PRN ×2 (10:30→22:39)
[2017-10-18] MEDS ORDERED: CASPOFUNGIN ACETATE 70 MG in SODIUM CHLORIDE 250 ML IV ONE (12:00)
[2017-10-18] MEDS: OLANZapine 2.5 MG TABLET PO SCH ×2 (12:06→21:11)
--- NOTE | 2017-10-18 12:42 | PN ---
Progress Note, Physician History of Present Illness: Transferred to monitored bed for rapid aflutter, currently back in sinus rhythm. - Current Medication List Current Medications: Active Medications Acetaminophen (Tylenol Oral Solution -) 650 mg GT Q6H PRN PRN Reason: FEVER OR PAIN Last Admin: 10/17/17 20:59 Dose: 650 mg Acetylcysteine (Mucomyst 20 Oral / Inh Use Only*) 400 mg NEB BID [facility] Last Admin: 10/18/17 10:30 Dose: 400 mg Albuterol Sulfate (Ventolin 0.083% Nebulizer Soln -) 1 amp NEB Q4H PRN Last Admin: 10/18/17 10:30 Dose: 1 amp Amiodarone HCl (Cordarone -) 200 mg PEG DAILY [facility] Last Admin: 10/18/17 09:04 Dose: 200 mg Chlorhexidine Gluconate (Hibiclens For Decolonization -) 1 applic TP HS [facility] Last Admin: 10/17/17 21:01 Dose: 1 applic Folic Acid (Folic Acid -) 1 mg GT DAILY [facility] Last Admin: 10/18/17 09:04 Dose: 1 mg Furosemide (Lasix Injection -) 40 mg IVPUSH DAILY [facility] Last Admin: 10/18/17 09:05 Dose: 40 mg Heparin Sodium (Porcine) (Heparin -) 5,000 unit SQ BID [facility] Last Admin: 10/18/17 09:04 Dose: 5,000 unit Vancomycin HCl 500 mg/ (Dextrose) 100 mls @ 100 mls/hr IVPB DAILY@1500 [facility] PRN Reason: Protocol Last Admin: 10/17/17 15:52 Dose: 100 mls/hr Caspofungin 70 mg/ Sodium (Chloride) 250 mls @ 250 mls/hr IV ONCE ONE Stop: 10/18/17 12:59 Caspofungin 50 mg/ Sodium (Chloride) 250 mls @ 250 mls/hr IV DAILY [facility] Metoprolol Tartrate (Lopressor -) 50 mg PEG TID [facility] Last Admin: 10/18/17 06:37 Dose: 50 mg Morphine Sulfate (Morphine Injection -) 2 mg IVPUSH Q8H PRN PRN Reason: PAIN Last Admin: 10/17/17 22:40 Dose: 2 mg Mupirocin (Bactroban 2% Cream -) 1 applic TP BID [facility] Last Admin: 10/18/17 09:06 Dose: 1 applic Mupirocin (Bactroban Ointment (For Decolonization) -) 1 applic NS BID [facility] Stop: 10/22/17 21:59 Olanzapine (Zyprexa -) 2.5 mg PO BID [facility] Last Admin: 10/18/17 12:06 Dose: 2.5 mg - Objective Vital Signs: Vital Signs Temperature 97.9 F 10/18/17 12:00 Pulse Rate 75 10/18/17 12:00 Respiratory Rate 20 10/18/17 12:00 Blood Pressure 139/84 10/18/17 12:00 O2 Sat by Pulse Oximetry (%) 100 10/18/17 11:50 Constitutional: Yes: No Distress, Calm Neck: Yes: Supple Cardiovascular: Yes: Regular Rate and Rhythm Respiratory: Yes: Regular, Diminished Gastrointestinal: Yes: Normal Bowel Sounds, Soft Edema: No Labs: CBC, BMP 10/18/17 05:00 10/18/17 05:00 INR, PTT INR 1.11 (0.82-1.09) 10/15/17 21:16 - ....Imaging Chest X-ray: Report Reviewed (Improving bilateral congestion) Problem List - Problems (1) Acute and chronic respiratory failure Code(s): J96.20 - ACUTE AND CHR RESP FAILURE, UNSP W HYPOXIA OR HYPERCAPNIA Qualifiers: Respiratory failure complication: hypoxia and hypercapnia Qualified Code(s) : J96.21 - Acute and chronic respiratory failure with hypoxia; J96.22 - Acute and chronic respiratory failure with hypercapnia; J96.22 - Acute and chronic respiratory failure with hypercapnia; J96.22 - Acute and chronic respiratory failure with hypercapnia (2) Agitation Code(s): R45.1 - RESTLESSNESS AND AGITATION (3) Acute kidney injury Code(s): N17.9 - ACUTE KIDNEY FAILURE, UNSPECIFIED (4) Alkaline phosphatase elevation Code(s): R74.8 - ABNORMAL LEVELS OF OTHER SERUM ENZYMES (5) Anemia Code(s): D64.9 - ANEMIA, UNSPECIFIED Qualifiers: Anemia type: unspecified type Qualified Code(s): D64.9 - Anemia, unspecified (6) Paroxysmal atrial fibrillation Code(s): I48.0 - PAROXYSMAL ATRIAL FIBRILLATION (7) Status post insertion of percutaneous endoscopic gastrostomy (PEG) tube Code(s): Z93.1 - GASTROSTOMY STATUS (8) Status post tracheostomy Code(s): Z93.0 - TRACHEOSTOMY STATUS (9) Acute diastolic heart failure Code(s): I50.31 - ACUTE DIASTOLIC (CONGESTIVE) HEART FAILURE Assessment/Plan 10/18/2017 Normal LV size and fxn, mild LAE, mild MR, TR 1. Fungemia Paroxysmal atrial fibrillation/flutter [id number] score of 2, currently in sinus rhythm off of A/C/Eliquis therapy as outlined above, on Amiodarone therapy 2. Acute hypoxic respiratory failure, post tracheotomy r/o PNA 3. Cavitating pneumonia, MSSA bacteremia, post septic shock no evidence of endocarditis by ALISA criteria 4. Acute on chronic diastolic failure improving 5. Osteomyelitis T9-T10 discitis 6. Loculated effusion post chest tube drainage 7. History of alcohol dependence 8. Acute on chronic renal insufficiency, resolving 9. Anemia 10. Hypokalemia PLAN: 1. Ophtho eval, monitor surveillance cx, cancidas course 2. Continue Lopressor 50 tid via PEG, hemodynamics permitting, decrease Demadex 20 PEG qd with monitor diuretic response, renal fxn and electrolytes with replete K 2. Continue Amiodarone 200 qd via PEG 3. 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 Consider transfusion to maintain Hg equal or > 8.0 5. Ventilator management as per the ICU team, enteral feeds
--- NOTE | 2017-10-18 12:48 | PN ---
Progress Note, Physician History of Present Illness: No events. No BMs. Awake, alert. Wants to eat. - Current Medication List Current Medications: Active Medications Acetaminophen (Tylenol Oral Solution -) 650 mg GT Q6H PRN PRN Reason: FEVER OR PAIN Last Admin: 10/17/17 20:59 Dose: 650 mg Acetylcysteine (Mucomyst 20 Oral / Inh Use Only*) [address] [facility] Last Admin: 10/18/17 10:30 Dose: 400 mg Albuterol Sulfate (Ventolin 0.083% Nebulizer Soln -) 1 amp NEB Q4H PRN Last Admin: 10/18/17 10:30 Dose: 1 amp Amiodarone HCl (Cordarone -) [address] [facility] Last Admin: 10/18/17 09:04 Dose: 200 mg Chlorhexidine Gluconate (Hibiclens For Decolonization -) [address] [facility] Last Admin: 10/17/17 21:01 Dose: 1 applic Folic Acid (Folic Acid -) [address] [facility] Last Admin: 10/18/17 09:04 Dose: 1 mg Furosemide (Lasix Injection -) [address] [facility] Last Admin: 10/18/17 09:05 Dose: 40 mg Heparin Sodium (Porcine) (Heparin -) 5,[address] [facility] Last Admin: 10/18/17 09:04 Dose: 5,000 unit Vancomycin HCl 500 mg/ (Dextrose) 100 mls @ 100 mls/hr IVPB DAILY@1500 [facility] PRN Reason: Protocol Last Admin: 10/17/17 15:52 Dose: 100 mls/hr Caspofungin 70 mg/ Sodium (Chloride) 250 mls @ 250 mls/hr IV ONCE ONE Stop: 10/18/17 12:59 Last Admin: 10/18/17 12:44 Dose: 250 mls/hr Caspofungin 50 mg/ Sodium (Chloride) 250 mls @ 250 mls/hr IV DAILY [facility] Metoprolol Tartrate (Lopressor -) [address] [facility] Last Admin: 10/18/17 06:37 Dose: 50 mg Morphine Sulfate (Morphine Injection -) 2 mg IVPUSH Q8H PRN PRN Reason: PAIN Last Admin: 10/17/17 22:40 Dose: 2 mg Mupirocin (Bactroban 2% Cream -) [address] [facility] Last Admin: 10/18/17 09:06 Dose: 1 applic Mupirocin (Bactroban Ointment (For Decolonization) -) [address] [facility] Stop: 10/22/17 21:59 Olanzapine (Zyprexa -) 2.[address] [facility] Last Admin: 10/18/17 12:06 Dose: 2.5 mg - Objective Vital Signs: Vital Signs Temperature 97.9 F 10/18/17 12:00 Pulse Rate 75 10/18/17 12:00 Respiratory Rate 20 10/18/17 12:00 Blood Pressure 139/84 10/18/17 12:00 O2 Sat by Pulse Oximetry (%) 100 10/18/17 11:50 Constitutional: Yes: No Distress, Calm Neck: Yes: Other (tracheostomy) Respiratory: Yes: Regular Gastrointestinal: Yes: Soft, Tenderness (@PEG site), Other (PEG intact). No: Melena, Rectal Bleeding Neurological: Yes: Alert Labs: CBC, BMP 10/18/17 05:00 10/18/17 05:00 INR, PTT INR 1.11 (0.82-1.09) 10/15/17 21:16 Laboratory Results - last 24 hr 10/17/17 10/18/17 10/18/17 11:35 05:00 05:00 WBC 7.2 RBC 2.89 L Hgb 8.8 L Hct 25.2 L MCV 87.5 MCH 30.7 MCHC 35.1 RDW 16.5 H Plt Count 274 MPV 6.8 L Neutrophils % 67.6 Lymphocytes % 14.8 D Monocytes % 14.2 H Eosinophils % 2.7 D Basophils % 0.7 D Retic Count Sodium 144 Potassium 3.1 L D Chloride 110 H Carbon Dioxide 23 Anion Gap 11 BUN 72 H Creatinine 3.0 H Creat Clearance w eGFR 20.91 Random Glucose 132 H D Lactic Acid Calcium 8.1 L Iron 116 TIBC 211 L Iron Saturation 55 Total Bilirubin 0.9 AST 25 ALT 21 Alkaline Phosphatase 448 H D LD Total 237 D B-Natriuretic Peptide 93556.15 H Total Protein 7.8 Albumin 2.3 L 10/18/17 10/18/17 05:00 05:00 WBC RBC Hgb Hct MCV MCH MCHC RDW Plt Count MPV Neutrophils % Lymphocytes % Monocytes % Eosinophils % Basophils % Retic Count 0.97 Sodium Potassium Chloride Carbon Dioxide Anion Gap BUN Creatinine Creat Clearance w eGFR Random Glucose Lactic Acid 1.0 Calcium Iron TIBC Iron Saturation Total Bilirubin AST ALT Alkaline Phosphatase LD Total B-Natriuretic Peptide Total Protein Albumin Problem List - Problems (1) Acute and chronic respiratory failure Code(s): J96.20 - ACUTE AND CHR RESP FAILURE, UNSP W HYPOXIA OR HYPERCAPNIA Qualifiers: Qualified Code(s): J96.21 - Acute and chronic respiratory failure with hypoxia; J96.22 - Acute and chronic respiratory failure with hypercapnia; J96.22 - Acute and chronic respiratory failure with hypercapnia; J96.22 - Acute and chronic respiratory failure with hypercapnia (2) Abuse, drug or alcohol Code(s): F19.10 - OTHER PSYCHOACTIVE SUBSTANCE ABUSE, UNCOMPLICATED (3) Acute diastolic heart failure Code(s): I50.31 - ACUTE DIASTOLIC (CONGESTIVE) HEART FAILURE (4) Alkaline phosphatase elevation Code(s): R74.8 - ABNORMAL LEVELS OF OTHER SERUM ENZYMES (5) Anemia Code(s): D64.9 - ANEMIA, UNSPECIFIED Qualifiers: Qualified Code(s): D64.9 - Anemia, unspecified (6) Rectal ulcer Code(s): K62.6 - ULCER OF ANUS AND RECTUM Assessment/Plan Will continue to monitor closely Continue gastrostomy feeds with PEG care protocol and aspiration precautions Daily cbc, hepatic profile.
--- NOTE | 2017-10-18 12:51 | PN ---
Progress Note, Physician Chief Complaint: patient seen and examined in bed awake aert was transferred to icu for rapid afib - Current Medication List Current Medications: Active Medications Acetaminophen (Tylenol Oral Solution -) 650 mg GT Q6H PRN PRN Reason: FEVER OR PAIN Last Admin: 10/17/17 20:59 Dose: 650 mg Acetylcysteine (Mucomyst 20 Oral / Inh Use Only*) 400 mg NEB BID [facility] Last Admin: 10/18/17 10:30 Dose: 400 mg Albuterol Sulfate (Ventolin 0.083% Nebulizer Soln -) 1 amp NEB Q4H PRN Last Admin: 10/18/17 10:30 Dose: 1 amp Amiodarone HCl (Cordarone -) 200 mg PEG DAILY [facility] Last Admin: 10/18/17 09:04 Dose: 200 mg Chlorhexidine Gluconate (Hibiclens For Decolonization -) 1 applic TP HS [facility] Last Admin: 10/17/17 21:01 Dose: 1 applic Folic Acid (Folic Acid -) 1 mg GT DAILY [facility] Last Admin: 10/18/17 09:04 Dose: 1 mg Furosemide (Lasix Injection -) 40 mg IVPUSH DAILY [facility] Last Admin: 10/18/17 09:05 Dose: 40 mg Heparin Sodium (Porcine) (Heparin -) 5,000 unit SQ BID [facility] Last Admin: 10/18/17 09:04 Dose: 5,000 unit Vancomycin HCl 500 mg/ (Dextrose) 100 mls @ 100 mls/hr IVPB DAILY@1500 [facility] PRN Reason: Protocol Last Admin: 10/17/17 15:52 Dose: 100 mls/hr Caspofungin 70 mg/ Sodium (Chloride) 250 mls @ 250 mls/hr IV ONCE ONE Stop: 10/18/17 12:59 Last Admin: 10/18/17 12:44 Dose: 250 mls/hr Caspofungin 50 mg/ Sodium (Chloride) 250 mls @ 250 mls/hr IV DAILY [facility] Metoprolol Tartrate (Lopressor -) 50 mg PEG TID [facility] Last Admin: 10/18/17 06:37 Dose: 50 mg Morphine Sulfate (Morphine Injection -) 2 mg IVPUSH Q8H PRN PRN Reason: PAIN Last Admin: 10/17/17 22:40 Dose: 2 mg Mupirocin (Bactroban 2% Cream -) 1 applic TP BID [facility] Last Admin: 10/18/17 09:06 Dose: 1 applic Mupirocin (Bactroban Ointment (For Decolonization) -) 1 applic NS BID [facility] Stop: 10/22/17 21:59 Olanzapine (Zyprexa -) 2.5 mg PO BID [facility] Last Admin: 10/18/17 12:06 Dose: 2.5 mg - Objective Vital Signs: Vital Signs Temperature 97.9 F 10/18/17 12:00 Pulse Rate 75 10/18/17 12:00 Respiratory Rate 20 10/18/17 12:00 Blood Pressure 139/84 10/18/17 12:00 O2 Sat by Pulse Oximetry (%) 100 10/18/17 11:50 Constitutional: Yes: Calm Neck: Yes: Trachea Midline, Other (tracheostomy) Cardiovascular: Yes: S1, S2 Respiratory: Yes: CTA Bilaterally Gastrointestinal: Yes: Normal Bowel Sounds, Soft, Other (g tube) Extremities: Yes: Other (skin abrasion noted on LE) Edema: No Neurological: Yes: Alert, Oriented (to name) Labs: CBC, BMP 10/18/17 05:00 10/18/17 05:00 INR, PTT INR 1.11 (0.82-1.09) 10/15/17 21:16 Problem List - Problems (1) Acute and chronic respiratory failure Assessment/Plan: vent managment Code(s): J96.20 - ACUTE AND CHR RESP FAILURE, UNSP W HYPOXIA OR HYPERCAPNIA Qualifiers: Respiratory failure complication: hypoxia and hypercapnia Qualified Code(s) : J96.21 - Acute and chronic respiratory failure with hypoxia; J96.22 - Acute and chronic respiratory failure with hypercapnia; J96.22 - Acute and chronic respiratory failure with hypercapnia; J96.22 - Acute and chronic respiratory failure with hypercapnia (2) Paroxysmal atrial fibrillation Assessment/Plan: now rate better controlled transfer to med/surg floor continue amiodarone Code(s): I48.0 - PAROXYSMAL ATRIAL FIBRILLATION (3) Staphylococcus aureus bacteremia Assessment/Plan: on iv vancomycin for bacteremia with osteomylitis day 42 of 56 Code(s): R78.81 - BACTEREMIA (4) Fungemia Assessment/Plan: caspofungin optho eval echo Code(s): B49 - UNSPECIFIED MYCOSIS (5) Acute kidney injury Assessment/Plan: renal is on board on lasix Code(s): N17.9 - ACUTE KIDNEY FAILURE, UNSPECIFIED (6) Anemia Assessment/Plan: monitor h/h off AC given anemia transfuse if Hgb<8 Code(s): D64.9 - ANEMIA, UNSPECIFIED Qualifiers: Anemia type: unspecified type Qualified Code(s): D64.9 - Anemia, unspecified
[2017-10-18] MEDS ORDERED: POTASSIUM CHLORIDE ORAL LIQUID 20 MEQ/15 ML PEG ONE (13:32)
[2017-10-18 13:55] LABS: BASO % 0.8 % (0-2.0); EOS % 3.9 % (0-4.5); MCH 30.4 pg (25.7-33.7); MCHC 34.4 g/dl (32.0-35.9); MEAN CELL VOLUME 88.5 fl (80-96); MEAN PLT VOLUME 6.3 fl (7.5-11.1); NEUT % 68.5 % (42.8-82.8); PLATELET COUNT 250 K/MM3 (134-434); RDW 16.6 % (11.9-15.9); WHITE BLOOD COUNT 8.4 K/mm3 (4.0-10.0)
[2017-10-18 14:18] LABS: ALBUMIN 2.2 g/dl (3.4-5.0); BILIRUBIN,DIRECT 0.2 mg/dL (0.0-0.2); BILIRUBIN,TOTAL 0.5 mg/dL (0.2-1.0); TOT PROT 7.7 g/dl (6.4-8.2)
[2017-10-18] MEDS: VANCOMYCIN 500 MG in DEXTROSE 5%-WATER - 100 ML IVPB SCH (14:36)
--- NOTE | 2017-10-18 14:42 | PN ---
Physical Exam: SUBJECTIVE: The patient is a 67M with a PMH of EtOH abuse, osteo, chronic a-fib , infections (kelbsiella UTI, MRSA in sputum) who was recently hospitalized and is now trached and ventilator dependent who was recently readmitted for a fall at his rehab facility, who went into rapid a-fib and came to the ICU for further management. His only complaints are a dry mouth and a continuing cough. No events overnight. The patient still becomes agitated. Denies fever/chills, nausea, vomiting, CP, SOB. Hemodynamically stable. OBJECTIVE: Vital Signs Period Temp Pulse Resp BP Sys/Jeff Pulse Ox Last 24 Hr 97.5 F-100.2 F 70-152 16-222 105-169/59-90 100-100 GENERAL: The patient is awake, alert, and fully oriented, trached and in no acute distress. HEAD: Normal with no signs of trauma. EYES: PERRL, extraocular movements intact, sclera anicteric, conjunctiva clear. No ptosis. ENT: Ears normal, nares patent, oropharynx clear without exudates, moist mucous membranes. NECK: Trachea midline, full range of motion, supple. LUNGS: Breath sounds equal, clear to auscultation bilaterally, no wheezes, no crackles, no accessory muscle use. HEART: Regular rate and rhythm, S1, S2 without murmur, rub or gallop. ABDOMEN: Soft, nontender, nondistended, normoactive bowel sounds, no guarding, no rebound, no hepatosplenomegaly, no masses. EXTREMITIES: 2+ pulses, warm, well-perfused, no edema. NEUROLOGICAL: Cranial nerves II through XII grossly intact. Normal speech, gait not observed. PSYCH: Normal mood, normal affect. SKIN: Warm, dry, normal turgor, no rashes or lesions noted Laboratory Results - last 24 hr 10/17/17 10/18/17 10/18/17 11:35 05:00 05:00 WBC 7.2 RBC 2.89 L Hgb 8.8 L Hct 25.2 L MCV 87.5 MCH 30.7 MCHC 35.1 RDW 16.5 H Plt Count 274 MPV 6.8 L Neutrophils % 67.6 Lymphocytes % 14.8 D Monocytes % 14.2 H Eosinophils % 2.7 D Basophils % 0.7 D Retic Count Sodium 144 Potassium 3.1 L D Chloride 110 H Carbon Dioxide 23 Anion Gap 11 BUN 72 H Creatinine 3.0 H Creat Clearance w eGFR 20.91 Random Glucose 132 H D Lactic Acid Calcium 8.1 L Iron 116 TIBC 211 L Iron Saturation 55 Total Bilirubin 0.9 Direct Bilirubin AST 25 ALT 21 Alkaline Phosphatase 448 H D LD Total 237 D B-Natriuretic Peptide 20643.15 H Total Protein 7.8 Albumin 2.3 L 10/18/17 10/18/17 10/18/17 05:00 05:00 13:15 WBC 8.4 RBC 2.71 L Hgb 8.2 L Hct 24.0 L MCV 88.5 MCH 30.4 MCHC 34.4 RDW 16.6 H Plt Count 250 MPV 6.3 L Neutrophils % 68.5 Lymphocytes % 12.9 Monocytes % 13.9 H Eosinophils % 3.9 Basophils % 0.8 Retic Count 0.97 Sodium Potassium Chloride Carbon Dioxide Anion Gap BUN Creatinine Creat Clearance w eGFR Random Glucose Lactic Acid 1.0 Calcium Iron TIBC Iron Saturation Total Bilirubin Direct Bilirubin AST ALT Alkaline Phosphatase LD Total B-Natriuretic Peptide Total Protein Albumin 10/18/17 13:15 WBC RBC Hgb Hct MCV MCH MCHC RDW Plt Count MPV Neutrophils % Lymphocytes % Monocytes % Eosinophils % Basophils % Retic Count Sodium Potassium Chloride Carbon Dioxide Anion Gap BUN Creatinine Creat Clearance w eGFR Random Glucose Lactic Acid Calcium Iron TIBC Iron Saturation Total Bilirubin 0.5 D Direct Bilirubin 0.2 D AST 31 D ALT 24 Alkaline Phosphatase 410 H LD Total B-Natriuretic Peptide Total Protein 7.7 Albumin 2.2 L Active Medications Generic Name Dose Route Start Last Admin Trade Name Freq PRN Reason Stop Dose Admin Acetaminophen 650 mg 10/16/17 13:06 10/17/17 20:59 Tylenol Oral Solution - GT 650 mg Q6H PRN Administration FEVER OR PAIN Acetylcysteine 400 mg 10/17/17 22:00 10/18/17 10:30 Mucomyst 20 Oral / Inh Use Only* NEB 400 mg BID [facility] Administration Albuterol Sulfate 1 amp 10/17/17 10:30 10/18/17 10:30 Ventolin 0.083% Nebulizer Soln - NEB 1 amp Q4H PRN Administration Amiodarone HCl 200 mg 10/16/17 10:00 10/18/17 09:04 Cordarone - PEG 200 mg DAILY [facility] Administration Chlorhexidine Gluconate 1 applic 10/17/17 22:00 10/17/17 21:01 Hibiclens For Decolonization - TP 1 applic HS [facility] Administration Folic Acid 1 mg 10/16/17 10:00 10/18/17 09:04 Folic Acid - GT 1 mg DAILY [facility] Administration Heparin Sodium (Porcine) 5,000 unit 10/16/17 10:00 10/18/17 09:04 Heparin - SQ 5,000 unit BID [facility] Administration Vancomycin HCl 500 mg/ 100 mls @ 100 mls/hr 10/17/17 15:00 10/18/17 14:36 Dextrose IVPB 100 mls/hr DAILY@1500 [facility] Administration Protocol Caspofungin 50 mg/ Sodium 250 mls @ 250 mls/hr 10/19/17 10:00 Chloride IV DAILY [facility] Metoprolol Tartrate 50 mg 10/16/17 06:00 10/18/17 14:33 Lopressor - PEG 50 mg TID [facility] Administration Morphine Sulfate 2 mg 10/17/17 10:16 10/17/17 22:40 Morphine Injection - IVPUSH 2 mg Q8H PRN Administration PAIN Mupirocin 1 applic 10/16/17 10:00 10/18/17 09:06 Bactroban 2% Cream - TP 1 applic BID [facility] Administration Mupirocin 1 applic 10/17/17 22:00 Bactroban Ointment (For Decolonization) - NS 10/22/17 21:59 BID [facility] Olanzapine 2.5 mg 10/16/17 15:00 10/18/17 12:06 Zyprexa - PO 2.5 mg BID [facility] Administration Torsemide 20 mg 10/19/17 10:00 Demadex - PO DAILY [facility] ASSESSMENT/PLAN: The patient is a 67M with a PMH of EtOH abuse s/p tracheostomy, and infections including osteo, MRSA sputum, and klebsiella UTI, who was brought to the ICU after having an episode of rapid a-fib. Neuro: - A&Ox3 - At baseline CV: HTN and paroxysmal a-fib - Continue home meds - Amio 200 - Heparin 5000 sq - Metoprolol 50 mg TID and 5mg IV PRN Pulm: - Questionable PNA - CXR showing blunted L junction - Continue Aztreonam Renal: ALEXANDRA - BUN/Cr: 72/3.0, worsening - Spoke with tire balancer about adding more free water to his diet - Monitor BUN/Cr : - None - No hines GI: - Alk phos downtrending, 448 from 588 ID: - Blood cultures showing anaerobic yeast-like organism (budding yeast) - ID on board and will prescribe abx, order echo, and consult optho - Question if we should do abd CT scan to look for hepatospleno involvement/ seeding of yeast Hem/Onc: - None Endocrine: - None MSK: - Frequent turning PPX: - Heparin sq FEN (Fluids, electrolytes, nutrition): - Per dietetics, continue to follow recs Dispo: - Transfer to [address] [place] [address] Visit type - Emergency Visit Emergency Visit: Yes ED Registration Date: 10/15/17 Care time: The patient presented to the Emergency Department on the above date and was hospitalized for further evaluation of their emergent condition. - New Patient This patient is new to me today: Yes Date on this admission: 10/18/17 - Critical Care Critical Care patient: Yes Total Critical Care Time (in minutes): 45 Critical Care Statement: The care of this patient involved high complexity decision making to prevent further life threatening deterioration of the patient 's condition and/or to evaluate & treat vital organ system(s) failure or risk of failure.
--- NOTE | 2017-10-18 15:09 | PN ---
Progress Note (short form) - Note Progress Note: Patient seen and examined On trach collar Breathing improved Last Vital Signs Temp Pulse Resp BP Pulse Ox 98.0 F 70 20 139/85 100 10/18/17 14:00 10/18/17 14:33 10/18/17 14:00 10/18/17 14:00 10/18/17 14:33 No icterus Diminished breath sounds bilaterally Cor-RSR Abd- distended Exat- no significant edema CBC, BMP 10/18/17 13:15 10/18/17 05:00 Current Medications Generic Name Dose Route Start Last Admin Trade Name Freq PRN Reason Stop Dose Admin Acetaminophen 650 mg 10/16/17 13:06 10/17/17 20:59 Tylenol Oral Solution - GT 650 mg Q6H PRN Administration FEVER OR PAIN Acetylcysteine 400 mg 10/17/17 22:00 10/18/17 10:30 Mucomyst 20 Oral / Inh Use Only* NEB 400 mg BID [facility] Administration Albuterol Sulfate 1 amp 10/17/17 10:30 10/18/17 10:30 Ventolin 0.083% Nebulizer Soln - NEB 1 amp Q4H PRN Administration Amiodarone HCl 200 mg 10/16/17 10:00 10/18/17 09:04 Cordarone - PEG 200 mg DAILY [facility] Administration Chlorhexidine Gluconate 1 applic 10/17/17 22:00 10/17/17 21:01 Hibiclens For Decolonization - TP 1 applic HS [facility] Administration Folic Acid 1 mg 10/16/17 10:00 10/18/17 09:04 Folic Acid - GT 1 mg DAILY [facility] Administration Heparin Sodium (Porcine) 5,000 unit 10/16/17 10:00 10/18/17 09:04 Heparin - SQ 5,000 unit BID [facility] Administration Vancomycin HCl 500 mg/ 100 mls @ 100 mls/hr 10/17/17 15:00 10/18/17 14:36 Dextrose IVPB 100 mls/hr DAILY@1500 [facility] Administration Protocol Caspofungin 50 mg/ Sodium 250 mls @ 250 mls/hr 10/19/17 10:00 Chloride IV DAILY [facility] Metoprolol Tartrate 50 mg 10/16/17 06:00 10/18/17 14:33 Lopressor - PEG 50 mg TID [facility] Administration Morphine Sulfate 2 mg 10/17/17 10:16 10/17/17 22:40 Morphine Injection - IVPUSH 2 mg Q8H PRN Administration PAIN Mupirocin 1 applic 10/16/17 10:00 10/18/17 09:06 Bactroban 2% Cream - TP 1 applic BID [facility] Administration Mupirocin 1 applic 10/17/17 22:00 Bactroban Ointment (For Decolonization) - NS 10/22/17 21:59 BID [facility] Olanzapine 2.5 mg 10/16/17 15:00 10/18/17 12:06 Zyprexa - PO 2.5 mg BID [facility] Administration Torsemide 20 mg 10/19/17 10:00 Demadex - PO DAILY [facility] Impression: Fungemia MSSA Osteomyelitis Respiratory Failure ALEXANDRA Anemia Anemia - multifactorial- ineffective erythropoiesis, blood letting , infection, renal disease Monitor,CBC
--- NOTE | 2017-10-18 17:58 | PN ---
Progress Note, Physician History of Present Illness: Pt seen and examined at bedside. He is awake and appears comfortable. He is now in the ICU. He is off of the vent. - Current Medication List Current Medications: Active Medications Acetaminophen (Tylenol Oral Solution -) 650 mg GT Q6H PRN PRN Reason: FEVER OR PAIN Last Admin: 10/17/17 20:59 Dose: 650 mg Acetylcysteine (Mucomyst 20 Oral / Inh Use Only*) 400 mg NEB BID [facility] Last Admin: 10/18/17 10:30 Dose: 400 mg Albuterol Sulfate (Ventolin 0.083% Nebulizer Soln -) 1 amp NEB Q4H PRN Last Admin: 10/18/17 10:30 Dose: 1 amp Amiodarone HCl (Cordarone -) 200 mg PEG DAILY [facility] Last Admin: 10/18/17 09:04 Dose: 200 mg Chlorhexidine Gluconate (Hibiclens For Decolonization -) 1 applic TP HS [facility] Last Admin: 10/17/17 21:01 Dose: 1 applic Folic Acid (Folic Acid -) 1 mg GT DAILY [facility] Last Admin: 10/18/17 09:04 Dose: 1 mg Heparin Sodium (Porcine) (Heparin -) 5,000 unit SQ BID [facility] Last Admin: 10/18/17 09:04 Dose: 5,000 unit Vancomycin HCl 500 mg/ (Dextrose) 100 mls @ 100 mls/hr IVPB DAILY@1500 [facility] PRN Reason: Protocol Last Admin: 10/18/17 14:36 Dose: 100 mls/hr Caspofungin 50 mg/ Sodium (Chloride) 250 mls @ 250 mls/hr IV DAILY [facility] Metoprolol Tartrate (Lopressor -) 50 mg PEG TID [facility] Last Admin: 10/18/17 14:33 Dose: 50 mg Morphine Sulfate (Morphine Injection -) 2 mg IVPUSH Q8H PRN PRN Reason: PAIN Last Admin: 10/17/17 22:40 Dose: 2 mg Mupirocin (Bactroban 2% Cream -) 1 applic TP BID [facility] Last Admin: 10/18/17 09:06 Dose: 1 applic Mupirocin (Bactroban Ointment (For Decolonization) -) 1 applic NS BID [facility] Stop: 10/23/17 21:59 Olanzapine (Zyprexa -) 2.5 mg PO BID [facility] Last Admin: 10/18/17 12:06 Dose: 2.5 mg Torsemide (Demadex -) 20 mg PO DAILY [facility] - Objective Vital Signs: Vital Signs Temperature 97.8 F 10/18/17 16:00 Pulse Rate 66 10/18/17 17:16 Respiratory Rate 21 10/18/17 16:00 Blood Pressure 146/82 10/18/17 16:00 O2 Sat by Pulse Oximetry (%) 100 10/18/17 17:16 Constitutional: Yes: Calm Eyes: Yes: Conjunctiva Clear HENT: Yes: Atraumatic Neck: Yes: Other (trache) Cardiovascular: Yes: S1, S2 Gastrointestinal: Yes: Normal Bowel Sounds, Other (peg) Genitourinary: Yes: Incontinence Musculoskeletal: Yes: Muscle Weakness Edema: Yes Edema: LUE: Trace, RUE: Trace Neurological: Yes: Oriented Psychiatric: Yes: Oriented Labs: CBC, BMP 10/18/17 13:15 10/18/17 05:00 INR, PTT INR 1.11 (0.82-1.09) 10/15/17 21:16 - ....Imaging Chest X-ray: Report Reviewed Problem List - Problems (1) Acute and chronic respiratory failure Code(s): J96.20 - ACUTE AND CHR RESP FAILURE, UNSP W HYPOXIA OR HYPERCAPNIA Qualifiers: Respiratory failure complication: hypoxia and hypercapnia Qualified Code(s) : J96.21 - Acute and chronic respiratory failure with hypoxia; J96.22 - Acute and chronic respiratory failure with hypercapnia; J96.22 - Acute and chronic respiratory failure with hypercapnia; J96.22 - Acute and chronic respiratory failure with hypercapnia (2) Agitation Code(s): R45.1 - RESTLESSNESS AND AGITATION (3) Atrial flutter by electrocardiogram Code(s): I48.92 - UNSPECIFIED ATRIAL FLUTTER (4) Respiratory distress Code(s): R06.03 - ACUTE RESPIRATORY DISTRESS (5) Acute kidney injury Code(s): N17.9 - ACUTE KIDNEY FAILURE, UNSPECIFIED (6) Anemia Code(s): D64.9 - ANEMIA, UNSPECIFIED Qualifiers: Anemia type: unspecified type Qualified Code(s): D64.9 - Anemia, unspecified Assessment/Plan Current Medications Generic Name Dose Route Start Last Admin Trade Name Freq PRN Reason Stop Dose Admin Acetaminophen 650 mg 10/16/17 13:06 10/17/17 20:59 Tylenol Oral Solution - GT 650 mg Q6H PRN Administration FEVER OR PAIN Acetylcysteine 400 mg 10/17/17 22:00 10/18/17 10:30 Mucomyst 20 Oral / Inh Use Only* NEB 400 mg BID [facility] Administration Albuterol Sulfate 1 amp 10/17/17 10:30 10/18/17 10:30 Ventolin 0.083% Nebulizer Soln - NEB 1 amp Q4H PRN Administration Amiodarone HCl 200 mg 10/16/17 10:00 10/18/17 09:04 Cordarone - PEG 200 mg DAILY [facility] Administration Chlorhexidine Gluconate 1 applic 10/17/17 22:00 10/17/17 21:01 Hibiclens For Decolonization - TP 1 applic HS [facility] Administration Folic Acid 1 mg 10/16/17 10:00 10/18/17 09:04 Folic Acid - GT 1 mg DAILY [facility] Administration Heparin Sodium (Porcine) 5,000 unit 10/16/17 10:00 10/18/17 09:04 Heparin - SQ 5,000 unit BID [facility] Administration Vancomycin HCl 500 mg/ 100 mls @ 100 mls/hr 10/17/17 15:00 10/18/17 14:36 Dextrose IVPB 100 mls/hr DAILY@1500 [facility] Administration Protocol Caspofungin 50 mg/ Sodium 250 mls @ 250 mls/hr 10/19/17 10:00 Chloride IV DAILY [facility] Metoprolol Tartrate 50 mg 10/16/17 06:00 10/18/17 14:33 Lopressor - PEG 50 mg TID [facility] Administration Morphine Sulfate 2 mg 10/17/17 10:16 10/17/17 22:40 Morphine Injection - IVPUSH 2 mg Q8H PRN Administration PAIN Mupirocin 1 applic 10/16/17 10:00 10/18/17 09:06 Bactroban 2% Cream - TP 1 applic BID [facility] Administration Mupirocin 1 applic 10/18/17 22:00 Bactroban Ointment (For Decolonization) - NS 10/23/17 21:59 BID [facility] Olanzapine 2.5 mg 10/16/17 15:00 10/18/17 12:06 Zyprexa - PO 2.5 mg BID [facility] Administration Torsemide 20 mg 10/19/17 10:00 Demadex - PO DAILY [facility] Impression 1. ALEXANDRA 2. fluid overload 3. hypoalbuminemia 4. respiratory failure requiring intubation 5. anemia 6. etoh abuse 7. fevers 8. hypokalemia 9. pleural effusion 10. hypernatremia 11. GI bleed 12. rash 13. a flutter Plan - renal function is mildly worse today - agree with changing diuretics to PO - replace potassium - repeat labs in am - check mag level - monitor hg - monitor pulse ox Dr Peres
[2017-10-18] MEDS: CHLORHEXIDINE GLUCONATE 4% CLEANSER FOR DECOLONIZATION TP SCH (21:12)
[2017-10-18] MEDS ORDERED: MUPIROCIN 2% TOPICAL OINTMENT FOR DECOLONIZATION NS SCH (22:00)
[2017-10-18] MEDS ORDERED: ACETYLCYSTEINE 20% 200MG/ML 4 ML VIAL *FOR ORAL / INH USE ONLY ONE (22:17)
[2017-10-18 22:45] LABS: ANION GAP 13 (8-16); CALCIUM 8.7 mg/dL (8.5-10.1); CO2 23 mmol/L (21-32); CREATININE 2.9 mg/dL (0.7-1.3); GLUCOSE,RANDOM 120 mg/dL (74-106)
[2017-10-19] MEDS ORDERED: morphine SULFATE 4 MG/ML VIAL IVPUSH PRN (03:41)
[2017-10-19] MEDS: METOPROLOL TARTRATE 50 MG TABLET (FP) PEG SCH ×3 (06:02→22:17)
[2017-10-19 07:28] LABS: BASO % 0.7 % (0-2.0); EOS % 3.7 % (0-4.5); MCH 30.1 pg (25.7-33.7); MCHC 34.3 g/dl (32.0-35.9); MEAN CELL VOLUME 87.8 fl (80-96); MEAN PLT VOLUME 6.5 fl (7.5-11.1); NEUT % 71.2 % (42.8-82.8); PLATELET COUNT 288 K/MM3 (134-434); RDW 16.1 % (11.9-15.9); WHITE BLOOD COUNT 8.7 K/mm3 (4.0-10.0)
[2017-10-19 07:37] LABS: ALBUMIN 2.4 g/dl (3.4-5.0); ANION GAP 10 (8-16); CALCIUM 8.8 mg/dL (8.5-10.1); CO2 25 mmol/L (21-32); GLUCOSE,RANDOM 124 mg/dL (74-106); MAGNESIUM 1.5 mg/dL (1.8-2.4); SGOT/AST 38 U/L (15-37)
[2017-10-19 07:40] LABS: ALK PHOS 376 U/L (45-117); BILIRUBIN,TOTAL 0.6 mg/dL (0.2-1.0); C-REACTIVE PROTEIN 3.3 MG/DL (0.00-0.3); CREATININE 2.6 mg/dL (0.7-1.3); PHOSPHOROUS 3.2 mg/dL (2.5-4.9); SGPT/ALT 29 U/L (12-78)
--- NOTE | 2017-10-19 08:34 | PN ---
Progress Note, Physician Chief Complaint: ID Vancomycin and Caspofungin day 2 - Current Medication List Current Medications: Active Medications Acetaminophen (Tylenol Oral Solution -) 650 mg GT Q6H PRN PRN Reason: FEVER OR PAIN Acetylcysteine (Mucomyst 20 Oral / Inh Use Only*) 400 mg NEB BID [facility] Albuterol Sulfate (Ventolin 0.083% Nebulizer Soln -) 1 amp NEB Q4H PRN PRN Reason: SHORT OF BREATH/WHEEZING Amiodarone HCl (Cordarone -) 200 mg PEG DAILY [facility] Chlorhexidine Gluconate (Hibiclens For Decolonization -) 1 applic TP HS [facility] Folic Acid (Folic Acid -) 1 mg GT DAILY [facility] Heparin Sodium (Porcine) (Heparin -) 5,000 unit SQ BID [facility] Caspofungin 50 mg/ Sodium (Chloride) 250 mls @ 250 mls/hr IV DAILY [facility] Vancomycin HCl 500 mg/ (Dextrose) 100 mls @ 100 mls/hr IVPB DAILY@1500 [facility] PRN Reason: Protocol Metoprolol Tartrate (Lopressor -) 50 mg PEG TID [facility] Last Admin: 10/19/17 06:02 Dose: 50 mg Morphine Sulfate (Morphine Sulfate) 2 mg IVPUSH Q8H PRN PRN Reason: PAIN Mupirocin (Bactroban Ointment (For Decolonization) -) 1 applic NS BID [facility] Stop: 10/22/17 21:59 Olanzapine (Zyprexa -) 2.5 mg PO BID [facility] Torsemide (Demadex -) 20 mg PO DAILY [facility] - Objective Vital Signs: Vital Signs Temperature 98.4 F 10/19/17 06:00 Pulse Rate 78 10/19/17 07:29 Respiratory Rate 18 10/19/17 06:00 Blood Pressure 156/98 10/19/17 06:00 O2 Sat by Pulse Oximetry (%) 99 10/19/17 07:29 Neck: Yes: WNL, Supple Cardiovascular: Yes: Regular Rate and Rhythm, S1, S2. No: Gallop Respiratory: Yes: WNL, Regular, CTA Bilaterally Gastrointestinal: Yes: Soft. No: Tenderness, Tenderness, Epigastrium Extremities: Yes: Other (Dry wounds RLE few bleeding) Labs: CBC, BMP 10/19/17 06:45 10/19/17 06:45 INR, PTT INR 1.11 (0.82-1.09) 10/15/17 21:16 Assessment/Plan Microbiology 10/17/17 10:05 Blood - Peripheral Venous Blood Culture - Preliminary NO GROWTH OBTAINED AFTER 24 HOURS, INCUBATION TO CONTINUE FOR 4 DAYS. 10/17/17 10:05 Blood - Peripheral Venous Blood Culture - Preliminary NO GROWTH OBTAINED AFTER 24 HOURS, INCUBATION TO CONTINUE FOR 4 DAYS. 10/16/17 02:35 Blood - Peripheral Venous Blood Culture - Preliminary NO GROWTH OBTAINED AFTER 72 HOURS, INCUBATION TO CONTINUE FOR 2 DAYS. 10/16/17 02:30 Blood - Peripheral Venous Blood Culture - Preliminary Yeast Like Organism Laboratory Tests 10/19/17 10/19/17 06:45 06:45 WBC 8.7 Hct 26.5 L Plt Count 288 BUN 73 H Creatinine 2.6 H AST 38 H D ALT 29 D Alkaline Phosphatase 376 H C-Reactive Protein 3.3 H D Assessment MSSA bacteremia with vertebral osteomyelitis Fungemia vs colonization ( 1 bottle) Plan Continue Vancomycin ECHO doubt endocarditis Reapt blood cultures Vanco trough Caspofungn Esau EMERY
[2017-10-19] MEDS ORDERED: ACETYLCYSTEINE 20% 200MG/ML 4 ML VIAL *FOR ORAL / INH USE ONLY ONE ×2 (09:46→21:50)
[2017-10-19] MEDS ORDERED: ALBUTEROL SO4 0.5 % INH SOLN 2.5 MG/0.5 ML VIAL.NEB. NEB ONE (09:48)
[2017-10-19] MEDS ORDERED: CASPOFUNGIN ACETATE 50 MG in SODIUM CHLORIDE 250 ML IV SCH (10:00)
[2017-10-19] MEDS ORDERED: MUPIROCIN 2% TOPICAL OINTMENT FOR DECOLONIZATION NS SCH (10:00)
[2017-10-19] MEDS ORDERED: MUPIROCIN CA 2% TOPICAL CREAM 15 GM TUBE TP SCH (10:00)
[2017-10-19] MEDS: ALBUTEROL SO4 0.083% IH SOL 2.5 MG/3 ML VIAL.NEB. NEB PRN ×2 (10:54→22:08)
[2017-10-19] MEDS: ACETYLCYSTEINE 20% 200MG/ML 30 ML VIAL *FOR ORAL / INH USE ONLY NEB SCH ×2 (10:54→22:07)
[2017-10-19] MEDS: FOLIC ACID 1 MG TABLET (FP) GT SCH (11:30)
[2017-10-19] MEDS: AMIODARONE HCL 200 MG TABLET (FP) PEG SCH (11:30)
[2017-10-19] MEDS: OLANZapine 2.5 MG TABLET PO SCH ×2 (11:30→22:18)
[2017-10-19] MEDS: HEPARIN NA (PORCINE) 5,000 UNITS/ML 1ML VIAL SQ SCH ×2 (11:30→22:17)
[2017-10-19] MEDS: TORSEMIDE 20 MG TABLET (FP) PO SCH (11:30)
[2017-10-19] MEDS ORDERED: PT OWN MED DRAWER 7, Y5N ONE (11:50)
[2017-10-19] MEDS: CASPOFUNGIN ACETATE 50 MG in SODIUM CHLORIDE 250 ML IV SCH (12:25)
--- NOTE | 2017-10-19 12:40 | PN ---
Progress Note (short form) - Note Progress Note: RENAL Pt is awake and alert says he is tired no other complaints Last Vital Signs Temp Pulse Resp BP Pulse Ox 98.6 F 73 20 151/78 97 10/19/17 08:00 10/19/17 10:55 10/19/17 08:00 10/19/17 08:00 10/19/17 10:55 poor dentition trach noted, has collar lungs clear cvs s1s2 rr abd soft ext no edema neuro a+ox3 CBC, BMP 10/19/17 06:45 10/19/17 06:45 Current Medications Generic Name Dose Route Start Last Admin Trade Name Freq PRN Reason Stop Dose Admin Acetaminophen 650 mg 10/19/17 03:41 Tylenol Oral Solution - GT Q6H PRN FEVER OR PAIN Acetylcysteine 400 mg 10/19/17 10:00 10/19/17 10:54 Mucomyst 20 Oral / Inh Use Only* NEB 400 mg BID [facility] Administration Albuterol Sulfate 1 amp 10/19/17 03:41 10/19/17 10:54 Ventolin 0.083% Nebulizer Soln - NEB 1 amp Q4H PRN Administration SHORT OF BREATH/WHEEZING Amiodarone HCl 200 mg 10/19/17 10:00 10/19/17 11:30 Cordarone - PEG 200 mg DAILY [facility] Administration Folic Acid 1 mg 10/19/17 10:00 10/19/17 11:30 Folic Acid - GT 1 mg DAILY [facility] Administration Heparin Sodium (Porcine) 5,000 unit 10/19/17 10:00 10/19/17 11:30 Heparin - SQ 5,000 unit BID [facility] Administration Caspofungin 50 mg/ Sodium 250 mls @ 250 mls/hr 10/19/17 10:00 10/19/17 12:25 Chloride IV 250 mls/hr DAILY [facility] Administration Metoprolol Tartrate 50 mg 10/19/17 06:00 10/19/17 06:02 Lopressor - PEG 50 mg TID [facility] Administration Morphine Sulfate 2 mg 10/19/17 03:41 Morphine Sulfate IVPUSH Q8H PRN PAIN Olanzapine 2.5 mg 10/19/17 10:00 10/19/17 11:30 Zyprexa - PO 2.5 mg BID [facility] Administration Torsemide 20 mg 10/19/17 10:00 10/19/17 11:30 Demadex - PO 20 mg DAILY [facility] Administration Impression 1. ALEXANDRA improved 2. fluid overload 3. hypoalbuminemia 4. respiratory failure requiring intubation 5. anemia 6. etoh abuse 7. fevers 8. hypokalemia probably from diuresis, hypomagnesemia and decreased intake 9. pleural effusion 10. hypernatremia 11. GI bleed 12. rash 13. a flutter PLAN replace amg and k monitor on current dose of diuretics but consider reducing torsemide tomorrow since he is looking "dry" pt will likely need some degree of azotemia to be out of fluid overload MV
[2017-10-19] MEDS ORDERED: MAGNESIUM SULF 50% (8.12 MEQ/2 ML-1 GM VIAL) IVPB ONE (12:45)
[2017-10-19] MEDS ORDERED: POTASSIUM CHLORIDE ORAL LIQUID 20 MEQ/15 ML PEG ONE (12:48)
--- NOTE | 2017-10-19 13:07 | PN ---
Progress Note, Physician History of Present Illness: PULMONARY ALERT,NAD,-TACHYPNEA - Current Medication List Current Medications: Active Medications Acetaminophen (Tylenol Oral Solution -) 650 mg GT Q6H PRN PRN Reason: FEVER OR PAIN Acetylcysteine (Mucomyst 20 Oral / Inh Use Only*) 400 mg NEB BID [facility] Last Admin: 10/19/17 10:54 Dose: 400 mg Albuterol Sulfate (Ventolin 0.083% Nebulizer Soln -) 1 amp NEB Q4H PRN PRN Reason: SHORT OF BREATH/WHEEZING Last Admin: 10/19/17 10:54 Dose: 1 amp Amiodarone HCl (Cordarone -) 200 mg PEG DAILY [facility] Last Admin: 10/19/17 11:30 Dose: 200 mg Folic Acid (Folic Acid -) 1 mg GT DAILY [facility] Last Admin: 10/19/17 11:30 Dose: 1 mg Heparin Sodium (Porcine) (Heparin -) 5,000 unit SQ BID [facility] Last Admin: 10/19/17 11:30 Dose: 5,000 unit Caspofungin 50 mg/ Sodium (Chloride) 250 mls @ 250 mls/hr IV DAILY [facility] Last Admin: 10/19/17 12:25 Dose: 250 mls/hr Metoprolol Tartrate (Lopressor -) 50 mg PEG TID [facility] Last Admin: 10/19/17 06:02 Dose: 50 mg Morphine Sulfate (Morphine Sulfate) 2 mg IVPUSH Q8H PRN PRN Reason: PAIN Olanzapine (Zyprexa -) 2.5 mg PO BID [facility] Last Admin: 10/19/17 11:30 Dose: 2.5 mg Torsemide (Demadex -) 20 mg PO DAILY [facility] Last Admin: 10/19/17 11:30 Dose: 20 mg - Objective Vital Signs: Vital Signs Temperature 98.6 F 10/19/17 08:00 Pulse Rate 73 10/19/17 10:55 Respiratory Rate 20 10/19/17 08:00 Blood Pressure 151/78 10/19/17 08:00 O2 Sat by Pulse Oximetry (%) 97 10/19/17 10:55 Constitutional: Yes: Well Nourished, Calm Eyes: Yes: WNL HENT: Yes: WNL Neck: Yes: Supple (TRACH) Cardiovascular: Yes: Pulse Irregular, S1, S2 Respiratory: Yes: Rhonchi (SCATTERED RHONCHI) Gastrointestinal: Yes: Normal Bowel Sounds, Soft Extremities: Yes: WNL Edema: No Labs: CBC, BMP 10/19/17 06:45 INR, PTT INR 1.11 (0.82-1.09) 10/15/17 21:16 - ....Imaging Chest X-ray: Report Reviewed, Image Reviewed Problem List - Problems (1) Acute and chronic respiratory failure Code(s): J96.20 - ACUTE AND CHR RESP FAILURE, UNSP W HYPOXIA OR HYPERCAPNIA Qualifiers: Respiratory failure complication: hypoxia and hypercapnia Qualified Code(s) : J96.21 - Acute and chronic respiratory failure with hypoxia; J96.22 - Acute and chronic respiratory failure with hypercapnia; J96.22 - Acute and chronic respiratory failure with hypercapnia; J96.22 - Acute and chronic respiratory failure with hypercapnia (2) Agitation Code(s): R45.1 - RESTLESSNESS AND AGITATION (3) Respiratory distress Code(s): R06.03 - ACUTE RESPIRATORY DISTRESS (4) Alkaline phosphatase elevation Code(s): R74.8 - ABNORMAL LEVELS OF OTHER SERUM ENZYMES (5) Anemia Code(s): D64.9 - ANEMIA, UNSPECIFIED Qualifiers: Anemia type: unspecified type Qualified Code(s): D64.9 - Anemia, unspecified (6) History of alcohol abuse Code(s): Z87.898 - PERSONAL HISTORY OF OTHER SPECIFIED CONDITIONS (7) Paroxysmal atrial fibrillation Code(s): I48.0 - PAROXYSMAL ATRIAL FIBRILLATION (8) Pneumonia Code(s): J18.9 - PNEUMONIA, UNSPECIFIED ORGANISM Qualifiers: Pneumonia type: aspiration pneumonia (9) Respiratory failure with hypoxia Code(s): J96.91 - RESPIRATORY FAILURE, UNSPECIFIED WITH HYPOXIA Qualifiers: Chronicity: acute Qualified Code(s): J96.01 - Acute respiratory failure with hypoxia (10) Status post tracheostomy Code(s): Z93.0 - TRACHEOSTOMY STATUS Assessment/Plan A/P Vent Dependent Chronic Respiratory Failure r/o Pneumonia Atrial Fibrillation with RVR Acute on Chronic Renal Failure Loculated Pleural Effusions Anemia - antibiotics per ID - speaking valve - spontaneous breathing trials as tolerated - enteral feeds - DVT/GI prophylaxis - rate controlled - f/u chest x-rays DR SANTAMARIA
[2017-10-19 13:09] LABS: BASO % 0.6 % (0-2.0); EOS % 3.8 % (0-4.5); MCH 29.8 pg (25.7-33.7); MCHC 34.1 g/dl (32.0-35.9); MEAN CELL VOLUME 87.2 fl (80-96); MEAN PLT VOLUME 6.4 fl (7.5-11.1); PLATELET COUNT 295 K/MM3 (134-434); RDW 16.1 % (11.9-15.9); WHITE BLOOD COUNT 9.1 K/mm3 (4.0-10.0)
--- NOTE | 2017-10-19 13:13 | PN ---
Progress Note, Physician History of Present Illness: On reg. floor now. No events. No BMs. Awake, alert. - Current Medication List Current Medications: Active Medications Acetaminophen (Tylenol Oral Solution -) 650 mg GT Q6H PRN PRN Reason: FEVER OR PAIN Acetylcysteine (Mucomyst 20 Oral / Inh Use Only*) 400 mg NEB BID [facility] Last Admin: 10/19/17 10:54 Dose: 400 mg Albuterol Sulfate (Ventolin 0.083% Nebulizer Soln -) 1 amp NEB Q4H PRN PRN Reason: SHORT OF BREATH/WHEEZING Last Admin: 10/19/17 10:54 Dose: 1 amp Amiodarone HCl (Cordarone -) 200 mg PEG DAILY [facility] Last Admin: 10/19/17 11:30 Dose: 200 mg Folic Acid (Folic Acid -) 1 mg GT DAILY [facility] Last Admin: 10/19/17 11:30 Dose: 1 mg Heparin Sodium (Porcine) (Heparin -) 5,000 unit SQ BID [facility] Last Admin: 10/19/17 11:30 Dose: 5,000 unit Caspofungin 50 mg/ Sodium (Chloride) 250 mls @ 250 mls/hr IV DAILY [facility] Last Admin: 10/19/17 12:25 Dose: 250 mls/hr Metoprolol Tartrate (Lopressor -) 50 mg PEG TID [facility] Last Admin: 10/19/17 06:02 Dose: 50 mg Morphine Sulfate (Morphine Sulfate) 2 mg IVPUSH Q8H PRN PRN Reason: PAIN Olanzapine (Zyprexa -) 2.5 mg PO BID [facility] Last Admin: 10/19/17 11:30 Dose: 2.5 mg Torsemide (Demadex -) 20 mg PO DAILY [facility] Last Admin: 10/19/17 11:30 Dose: 20 mg - Objective Vital Signs: Vital Signs Temperature 98.6 F 10/19/17 08:00 Pulse Rate 73 10/19/17 10:55 Respiratory Rate 20 10/19/17 08:00 Blood Pressure 151/78 10/19/17 08:00 O2 Sat by Pulse Oximetry (%) 97 10/19/17 10:55 Constitutional: Yes: No Distress, Calm Gastrointestinal: Yes: Normal Bowel Sounds, Soft. No: Melena, Rectal Bleeding, Tenderness Neurological: Yes: Alert, Oriented Labs: CBC, BMP 10/19/17 06:45 INR, PTT INR 1.11 (0.82-1.09) 10/15/17 21:16 Laboratory Results - last 24 hr 10/18/17 10/18/17 10/18/17 13:15 13:15 14:55 WBC 8.4 RBC 2.71 L Hgb 8.2 L Hct 24.0 L MCV 88.5 MCH 30.4 MCHC 34.4 RDW 16.6 H Plt Count 250 MPV 6.3 L Neutrophils % 68.5 Lymphocytes % 12.9 Monocytes % 13.9 H Eosinophils % 3.9 Basophils % 0.8 Sodium Potassium Chloride Carbon Dioxide Anion Gap BUN Creatinine Creat Clearance w eGFR Random Glucose Calcium Phosphorus Magnesium Total Bilirubin 0.5 D Direct Bilirubin 0.2 D AST 31 D ALT 24 Alkaline Phosphatase 410 H C-Reactive Protein Total Protein 7.7 Albumin 2.2 L Stool Occult Blood Negative Vancomycin Pre-Dose 10/18/17 10/18/17 10/19/17 15:00 21:30 06:45 WBC RBC Hgb Hct MCV MCH MCHC RDW Plt Count MPV Neutrophils % Lymphocytes % Monocytes % Eosinophils % Basophils % Sodium 145 Potassium 3.5 Chloride 109 H Carbon Dioxide 23 Anion Gap 13 BUN 76 H Creatinine 2.9 H Creat Clearance w eGFR Random Glucose 120 H Calcium 8.7 Phosphorus Magnesium Total Bilirubin Direct Bilirubin AST ALT Alkaline Phosphatase C-Reactive Protein Total Protein Albumin Stool Occult Blood Vancomycin Pre-Dose 28.683 H* D 19.729 H* D 10/19/17 10/19/17 06:45 06:45 WBC 8.7 RBC 3.02 L Hgb 9.1 L D Hct 26.5 L MCV 87.8 MCH 30.1 MCHC 34.3 RDW 16.1 H Plt Count 288 MPV 6.5 L Neutrophils % 71.2 Lymphocytes % 12.9 Monocytes % 11.5 H Eosinophils % 3.7 Basophils % 0.7 Sodium 145 Potassium 3.3 L Chloride 110 H Carbon Dioxide 25 Anion Gap 10 BUN 73 H Creatinine 2.6 H Creat Clearance w eGFR 24.67 Random Glucose 124 H Calcium 8.8 Phosphorus 3.2 D Magnesium 1.5 L D Total Bilirubin 0.6 Direct Bilirubin AST 38 H D ALT 29 D Alkaline Phosphatase 376 H C-Reactive Protein 3.3 H D Total Protein 8.0 Albumin 2.4 L Stool Occult Blood Vancomycin Pre-Dose Problem List - Problems (1) Acute and chronic respiratory failure Code(s): J96.20 - ACUTE AND CHR RESP FAILURE, UNSP W HYPOXIA OR HYPERCAPNIA Qualifiers: Respiratory failure complication: hypoxia and hypercapnia Qualified Code(s) : J96.21 - Acute and chronic respiratory failure with hypoxia; J96.22 - Acute and chronic respiratory failure with hypercapnia; J96.22 - Acute and chronic respiratory failure with hypercapnia; J96.22 - Acute and chronic respiratory failure with hypercapnia (2) Abuse, drug or alcohol Code(s): F19.10 - OTHER PSYCHOACTIVE SUBSTANCE ABUSE, UNCOMPLICATED (3) Acute diastolic heart failure Code(s): I50.31 - ACUTE DIASTOLIC (CONGESTIVE) HEART FAILURE (4) Alkaline phosphatase elevation Code(s): R74.8 - ABNORMAL LEVELS OF OTHER SERUM ENZYMES (5) Anemia Code(s): D64.9 - ANEMIA, UNSPECIFIED Qualifiers: Anemia type: unspecified type Qualified Code(s): D64.9 - Anemia, unspecified (6) Rectal ulcer Code(s): K62.6 - ULCER OF ANUS AND RECTUM Assessment/Plan Will continue to monitor closely Continue gastrostomy feeds with PEG care protocol and aspiration precautions colonoscopy before d/c
[2017-10-19 13:22] LABS: ALBUMIN 2.3 g/dl (3.4-5.0)
[2017-10-19 13:26] LABS: BILIRUBIN,DIRECT 0.2 mg/dL (0.0-0.2); BILIRUBIN,TOTAL 0.5 mg/dL (0.2-1.0); TOT PROT 8.1 g/dl (6.4-8.2)
[2017-10-19] MEDS ORDERED: POTASSIUM CHLORIDE ORAL LIQUID 20 MEQ/15 ML PO ONE (14:11)
--- NOTE | 2017-10-19 14:13 | PN ---
Progress Note, Physician Chief Complaint: AWAKE NAD THIS IS MY FIRST ENCOUNTER WITH THIS PATIENT NOTES AND RECORDS REVIEWED - Current Medication List Current Medications: Active Medications Acetaminophen (Tylenol Oral Solution -) 650 mg GT Q6H PRN PRN Reason: FEVER OR PAIN Acetylcysteine (Mucomyst 20 Oral / Inh Use Only*) 400 mg NEB BID [facility] Last Admin: 10/19/17 10:54 Dose: 400 mg Albuterol Sulfate (Ventolin 0.083% Nebulizer Soln -) 1 amp NEB Q4H PRN PRN Reason: SHORT OF BREATH/WHEEZING Last Admin: 10/19/17 10:54 Dose: 1 amp Amiodarone HCl (Cordarone -) 200 mg PEG DAILY [facility] Last Admin: 10/19/17 11:30 Dose: 200 mg Folic Acid (Folic Acid -) 1 mg GT DAILY [facility] Last Admin: 10/19/17 11:30 Dose: 1 mg Heparin Sodium (Porcine) (Heparin -) 5,000 unit SQ BID [facility] Last Admin: 10/19/17 11:30 Dose: 5,000 unit Caspofungin 50 mg/ Sodium (Chloride) 250 mls @ 250 mls/hr IV DAILY [facility] Last Admin: 10/19/17 12:25 Dose: 250 mls/hr Magnesium Oxide (Mag-Ox -) 400 mg PO BID [facility] Metoprolol Tartrate (Lopressor -) 50 mg PEG TID [facility] Last Admin: 10/19/17 06:02 Dose: 50 mg Morphine Sulfate (Morphine Sulfate) 2 mg IVPUSH Q8H PRN PRN Reason: PAIN Olanzapine (Zyprexa -) 2.5 mg PO BID [facility] Last Admin: 10/19/17 11:30 Dose: 2.5 mg Potassium Chloride (Potassium Chloride Oral Liquid) 40 meq PO ONCE ONE Stop: 10/19/17 14:12 Torsemide (Demadex -) 20 mg PO DAILY [facility] Last Admin: 10/19/17 11:30 Dose: 20 mg - Objective Vital Signs: Vital Signs Temperature 98.6 F 10/19/17 08:00 Pulse Rate 73 10/19/17 10:55 Respiratory Rate 20 10/19/17 08:00 Blood Pressure 151/78 10/19/17 08:00 O2 Sat by Pulse Oximetry (%) 97 10/19/17 10:55 Constitutional: Yes: Mild Distress Eyes: Yes: WNL HENT: Yes: WNL Neck: Yes: WNL Cardiovascular: Yes: WNL Respiratory: Yes: WNL Gastrointestinal: Yes: Other (GTUBE) Genitourinary: Yes: WNL, Incontinence Musculoskeletal: Yes: Muscle Weakness Extremities: Yes: Other Edema: No Peripheral Pulses WNL: Yes Integumentary: Yes: WNL Wound/Incision: Yes: Clean/Dry Neurological: Yes: Pre-Existing Deficit ...Motor Strength: LLE, RLE Psychiatric: Yes: Agitated Labs: CBC, BMP 10/19/17 12:40 10/19/17 06:45 INR, PTT INR 1.11 (0.82-1.09) 10/15/17 21:16 Problem List - Problems (1) Acute and chronic respiratory failure Code(s): J96.20 - ACUTE AND CHR RESP FAILURE, UNSP W HYPOXIA OR HYPERCAPNIA Qualifiers: Respiratory failure complication: hypoxia and hypercapnia Qualified Code(s) : J96.21 - Acute and chronic respiratory failure with hypoxia; J96.22 - Acute and chronic respiratory failure with hypercapnia; J96.22 - Acute and chronic respiratory failure with hypercapnia; J96.22 - Acute and chronic respiratory failure with hypercapnia (2) Agitation Code(s): R45.1 - RESTLESSNESS AND AGITATION (3) Atrial flutter by electrocardiogram Code(s): I48.92 - UNSPECIFIED ATRIAL FLUTTER (4) Respiratory distress Code(s): R06.03 - ACUTE RESPIRATORY DISTRESS Assessment/Plan POTASSIUM REPLETED CARDIOLOGY MARISA ZAPATA FOR RESTRAINTS TO AVOID PATIENT FROM REMOVING TRACHEOSTOMY DVT PROPHYLAXIS
[2017-10-19] MEDS ORDERED: MAGNESIUM OXIDE 400 MG TABLET (FP) PO SCH (14:15)
--- NOTE | 2017-10-19 14:38 | PN ---
Progress Note (short form) - Note Progress Note: Chief Compliant: Events noted, notes reviewed, remains off of the ventilator via trach collar mask, lethargic History of Present Illness: Seen and examined. Events noted, notes reviewed, remains off of the ventilator via trach collar mask, lethargic As outlined in prior admission notes Eliquis was D/C and ideally Coumadin is the drug of choice but considering his clinical presentation and co-morbidities including history of alcoholism I do not feel the patient is an appropriate candidate for [facility] A/C Echocardiography dated 09/02/2017 revealed probable preserved LV function, but can't R/O regional wall motion abnormality - Current Medication List Current Medications Acetaminophen (Tylenol Oral Solution -) 650 mg GT Q6H PRN PRN Reason: FEVER OR PAIN Acetylcysteine (Mucomyst 20 Oral / Inh Use Only*) 400 mg NEB BID [facility] Last Admin: 10/19/17 10:54 Dose: 400 mg Albuterol Sulfate (Ventolin 0.083% Nebulizer Soln -) 1 amp NEB Q4H PRN PRN Reason: SHORT OF BREATH/WHEEZING Last Admin: 10/19/17 10:54 Dose: 1 amp Amiodarone HCl (Cordarone -) 200 mg PEG DAILY [facility] Last Admin: 10/19/17 11:30 Dose: 200 mg Folic Acid (Folic Acid -) 1 mg GT DAILY [facility] Last Admin: 10/19/17 11:30 Dose: 1 mg Heparin Sodium (Porcine) (Heparin -) 5,000 unit SQ BID [facility] Last Admin: 10/19/17 11:30 Dose: 5,000 unit Caspofungin 50 mg/ Sodium (Chloride) 250 mls @ 250 mls/hr IV DAILY [facility] Last Admin: 10/19/17 12:25 Dose: 250 mls/hr Metoprolol Tartrate (Lopressor -) 50 mg PEG TID [facility] Last Admin: 10/19/17 14:27 Dose: 50 mg Morphine Sulfate (Morphine Sulfate) 2 mg IVPUSH Q8H PRN PRN Reason: PAIN Olanzapine (Zyprexa -) 2.5 mg PO BID [facility] Last Admin: 10/19/17 11:30 Dose: 2.5 mg Torsemide (Demadex -) 20 mg PO DAILY [facility] Last Admin: 10/19/17 11:30 Dose: 20 mg - Objective Vital Signs: Last Vital Signs Temp Pulse Resp BP Pulse Ox 98.6 F 73 20 151/78 97 10/19/17 08:00 10/19/17 10:55 10/19/17 08:00 10/19/17 08:00 10/19/17 10:55 Intake & Output 10/16/17 10/17/17 10/18/17 10/19/17 23:59 23:59 23:59 23:59 Intake Total 605 1150 1775 700 Output Total 2 Balance 605 1148 1775 700 Weight 185 lb 6.4 oz 173 lb 12.8 oz Neck: Supple Negative JVD Cardiovascular: S1 S2 Regular Rate and Rhythm No Murmurs Respiratory: Bilateral Scattered Rhonchi Gastrointestinal: Soft Benign Normal Bowel Sounds Ext: Edema Labs: CBC, BMP 10/19/17 12:40 10/19/17 06:45 Hepatic Panel Total Bilirubin 0.5 mg/dL (0.2-1.0) 10/19/17 12:40 Direct Bilirubin 0.2 mg/dL (0.0-0.2) 10/19/17 12:40 AST 37 U/L (15-37) 10/19/17 12:40 ALT 30 U/L (12-78) 10/19/17 12:40 Alkaline Phosphatase 387 U/L (45-117) H 10/19/17 12:40 Albumin 2.3 g/dl (3.4-5.0) L 10/19/17 12:40 Assessment/Plan ASSESSMENT: 1. Fungemia vs. colonization 2. Paroxysmal atrial fibrillation [id number] score of 2, off of A/C therapy as outlined above, on Amiodarone therapy 3. History of acute hypoxic respiratory failure, post tracheotomy 4. History of cavitating pneumonia, MSSA bacteremia, post septic shock no evidence of endocarditis by ALISA criteria 5. History of diastolic LV dysfunction with class I-II NYHA congestive heart failure, compensated/Euvolemic 6. History of osteomyelitis T9-T10 discitis 7. History of loculated pleural effusion post chest tube insertion 8. History of alcohol dependence 9. Acute renal insufficiency 10. Anemia 11. Hypokalemia PLAN: 1. Continue Lopressor via PEG, hemodynamics permitting 2. Continue Amiodarone via PEG 3. Add Norvasc if BP remains elevated 4. As outlined above defer [facility] A/C considering his presentation and co- morbidities, and ideal choice would be Coumadin given his renal function 5. Consider transfusion to maintain Hg equal or > 8.0 6. Correction of Hypokalemia 7. Antibiotics and antifungal therapies as per ID service Chang Blackwell M.D.
[2017-10-19] MEDS ORDERED: VANCOMYCIN 500 MG in DEXTROSE 5%-WATER - 100 ML IVPB SCH (15:00)
[2017-10-19] MEDS ORDERED: CHLORHEXIDINE GLUCONATE 4% CLEANSER FOR DECOLONIZATION TP SCH ×2 (22:00)
[2017-10-20] MEDS: METOPROLOL TARTRATE 50 MG TABLET (FP) PEG SCH ×3 (06:22→21:30)
[2017-10-20 06:54] LABS: MCH 29.6 pg (25.7-33.7); MEAN CELL VOLUME 87.1 fl (80-96); MEAN PLT VOLUME 6.6 fl (7.5-11.1); PLATELET COUNT 299 K/MM3 (134-434); RDW 16.2 % (11.9-15.9); WHITE BLOOD COUNT 9.1 K/mm3 (4.0-10.0)
[2017-10-20 07:22] LABS: ANION GAP 11 (8-16); CALCIUM 9.1 mg/dL (8.5-10.1); CO2 25 mmol/L (21-32); GLUCOSE,RANDOM 124 mg/dL (74-106); MAGNESIUM 2.1 mg/dL (1.8-2.4)
[2017-10-20 07:25] LABS: CREATININE 2.3 mg/dL (0.7-1.3)
[2017-10-20] MEDS ORDERED: PT OWN MED DRAWER 7, Y5N ONE (09:39)
[2017-10-20] MEDS: AMIODARONE HCL 200 MG TABLET (FP) PEG SCH (09:41)
[2017-10-20] MEDS: FOLIC ACID 1 MG TABLET (FP) GT SCH (09:41)
[2017-10-20] MEDS: OLANZapine 2.5 MG TABLET PO SCH ×2 (09:41→21:30)
[2017-10-20] MEDS: CASPOFUNGIN ACETATE 50 MG in SODIUM CHLORIDE 250 ML IV SCH (09:42)
[2017-10-20] MEDS: HEPARIN NA (PORCINE) 5,000 UNITS/ML 1ML VIAL SQ SCH ×2 (10:00→21:28)
[2017-10-20] MEDS: ACETYLCYSTEINE 20% 200MG/ML 30 ML VIAL *FOR ORAL / INH USE ONLY NEB SCH ×2 (10:30→22:05)
[2017-10-20] MEDS: ALBUTEROL SO4 0.083% IH SOL 2.5 MG/3 ML VIAL.NEB. NEB PRN ×2 (10:30→22:05)
--- NOTE | 2017-10-20 10:45 | PN ---
Progress Note (short form) - Note Progress Note: Chief Compliant: Events noted, notes reviewed, remains off of the ventilator via trach collar mask, denies any chest pain History of Present Illness: Seen and examined. Events noted, notes reviewed, remains off of the ventilator via trach collar mask, denies any chest pain As outlined in prior admission notes Shanellquis was D/C and ideally Coumadin is the drug of choice but considering his clinical presentation and co-morbidities including history of alcoholism I do not feel the patient is an appropriate candidate for [facility] A/C Echocardiography dated 09/02/2017 revealed probable preserved LV function, but can't R/O regional wall motion abnormality - Current Medication List Current Medications Acetaminophen (Tylenol Oral Solution -) 650 mg GT Q6H PRN PRN Reason: FEVER OR PAIN Acetylcysteine (Mucomyst 20 Oral / Inh Use Only*) 400 mg NEB BID [facility] Last Admin: 10/19/17 22:07 Dose: 400 mg Albuterol Sulfate (Ventolin 0.083% Nebulizer Soln -) 1 amp NEB Q4H PRN PRN Reason: SHORT OF BREATH/WHEEZING Last Admin: 10/19/17 22:08 Dose: 1 amp Amiodarone HCl (Cordarone -) 200 mg PEG DAILY [facility] Last Admin: 10/20/17 09:41 Dose: 200 mg Folic Acid (Folic Acid -) 1 mg GT DAILY [facility] Last Admin: 10/20/17 09:41 Dose: 1 mg Heparin Sodium (Porcine) (Heparin -) 5,000 unit SQ BID [facility] Last Admin: 10/20/17 10:00 Dose: 5,000 unit Caspofungin 50 mg/ Sodium (Chloride) 250 mls @ 250 mls/hr IV DAILY [facility] Last Admin: 10/20/17 09:42 Dose: 250 mls/hr Metoprolol Tartrate (Lopressor -) 50 mg PEG TID [facility] Last Admin: 10/20/17 06:22 Dose: 50 mg Morphine Sulfate (Morphine Sulfate) 2 mg IVPUSH Q8H PRN PRN Reason: PAIN Olanzapine (Zyprexa -) 2.5 mg PO BID [facility] Last Admin: 10/20/17 09:41 Dose: 2.5 mg Torsemide (Demadex -) 20 mg PO DAILY [facility] Last Admin: 10/19/17 11:30 Dose: 20 mg - Objective Vital Signs: Last Vital Signs Temp Pulse Resp BP Pulse Ox 97.6 F 76 19 149/90 97 10/20/17 09:00 10/20/17 09:00 10/20/17 09:00 10/20/17 09:00 10/20/17 09:00 Intake & Output 10/17/17 10/18/17 10/19/17 10/20/17 23:59 23:59 23:59 23:59 Intake Total 1150 1775 2100 1080 Output Total 2 Balance 1148 1775 2100 1080 Weight 173 lb 12.8 oz Neck: Supple Negative JVD Cardiovascular: S1 S2 Regular Rate and Rhythm No Murmurs Respiratory: Bilateral Scattered Rhonchi Gastrointestinal: Soft Benign Normal Bowel Sounds Ext: Edema Labs: CBC, BMP 10/20/17 06:37 10/20/17 06:37 Hepatic Panel Total Bilirubin 0.5 mg/dL (0.2-1.0) 10/19/17 12:40 Direct Bilirubin 0.2 mg/dL (0.0-0.2) 10/19/17 12:40 AST 37 U/L (15-37) 10/19/17 12:40 ALT 30 U/L (12-78) 10/19/17 12:40 Alkaline Phosphatase 387 U/L (45-117) H 10/19/17 12:40 Albumin 2.3 g/dl (3.4-5.0) L 10/19/17 12:40 INR, PTT INR 1.11 (0.82-1.09) 10/15/17 21:16 Assessment/Plan ASSESSMENT: 1. Fungemia vs. colonization 2. Paroxysmal atrial fibrillation [id number] score of 2, off of A/C therapy as outlined above, on Amiodarone therapy 3. History of acute hypoxic respiratory failure, post tracheotomy 4. History of cavitating pneumonia, MSSA bacteremia, post septic shock no evidence of endocarditis by ALISA criteria 5. History of diastolic LV dysfunction with class I-II NYHA congestive heart failure, compensated/Euvolemic 6. History of osteomyelitis T9-T10 discitis 7. History of loculated pleural effusion post chest tube insertion 8. History of alcohol dependence 9. Acute renal insufficiency 10. Anemia 11. Hypokalemia 12. Hypernatremia PLAN: 1. Continue Lopressor via PEG, hemodynamics permitting 2. Continue Amiodarone via PEG 3. Add Norvasc 4. As outlined above defer buttermaker continuous churn A/C considering his presentation and co- morbidities, and ideal choice would be Coumadin given his renal function 5. Consider transfusion to maintain Hg equal or > 8.0 6. Correction of Hypokalemia and Hypernatremia 7. Antifungal as per ID service Chang Blackwell M.D.
[2017-10-20] MEDS ORDERED: POTASSIUM CHLORIDE ORAL LIQUID 20 MEQ/15 ML PEG ONE (11:35)
--- NOTE | 2017-10-20 11:35 | PN ---
Progress Note (short form) - Note Progress Note: RENAL Pt is awake and alert comfortable trying to get out of bed Last Vital Signs Temp Pulse Resp BP Pulse Ox 97.6 F 76 19 149/90 97 10/20/17 09:00 10/20/17 09:00 10/20/17 09:00 10/20/17 09:00 10/20/17 09:00 poor dentition trach noted, no collar lungs clear cvs s1s2 rr abd soft ext no edema neuro a+ox3 CBC, BMP 10/20/17 06:37 10/20/17 06:37 Current Medications Generic Name Dose Route Start Last Admin Trade Name Freq PRN Reason Stop Dose Admin Acetaminophen 650 mg 10/19/17 03:41 Tylenol Oral Solution - GT Q6H PRN FEVER OR PAIN Acetylcysteine 400 mg 10/19/17 10:00 10/19/17 22:07 Mucomyst 20 Oral / Inh Use Only* NEB 400 mg BID [facility] Administration Albuterol Sulfate 1 amp 10/19/17 03:41 10/19/17 22:08 Ventolin 0.083% Nebulizer Soln - NEB 1 amp Q4H PRN Administration SHORT OF BREATH/WHEEZING Amiodarone HCl 200 mg 10/19/17 10:00 10/20/17 09:41 Cordarone - PEG 200 mg DAILY [facility] Administration Amlodipine Besylate 2.5 mg 10/20/17 11:15 Norvasc - PEG DAILY [facility] Folic Acid 1 mg 10/19/17 10:00 10/20/17 09:41 Folic Acid - GT 1 mg DAILY [facility] Administration Heparin Sodium (Porcine) 5,000 unit 10/19/17 10:00 10/20/17 10:00 Heparin - SQ 5,000 unit BID [facility] Administration Caspofungin 50 mg/ Sodium 250 mls @ 250 mls/hr 10/19/17 10:00 10/20/17 09:42 Chloride IV 250 mls/hr DAILY [facility] Administration Metoprolol Tartrate 50 mg 10/19/17 06:00 10/20/17 06:22 Lopressor - PEG 50 mg TID [facility] Administration Morphine Sulfate 2 mg 10/19/17 03:41 Morphine Sulfate IVPUSH Q8H PRN PAIN Olanzapine 2.5 mg 10/19/17 10:00 10/20/17 09:41 Zyprexa - PO 2.5 mg BID [facility] Administration Torsemide 20 mg 10/19/17 10:00 10/19/17 11:30 Demadex - PO 20 mg DAILY [facility] Administration Impression 1. ALEXANDRA improved 2. fluid overload 3. hypoalbuminemia 4. respiratory failure requiring intubation 5. anemia 6. etoh abuse 7. fevers 8. hypokalemia probably from diuresis, hypomagnesemia and decreased intake 9. pleural effusion 10. hypernatremia 11. GI bleed 12. rash 13. a flutter PLAN replace k, mag is normal today pt will likely need some degree of azotemia to be out of fluid overload oob to chair MV
[2017-10-20] MEDS: TORSEMIDE 20 MG TABLET (FP) PO SCH (11:38)
[2017-10-20] MEDS: amLODIPine BESYLATE 2.5 MG TABLET (FP) PEG SCH (11:38)
--- NOTE | 2017-10-20 12:45 | PN ---
Progress Note, Physician Chief Complaint: AWAKE ALERT NAD - Current Medication List Current Medications: Active Medications Acetaminophen (Tylenol Oral Solution -) 650 mg GT Q6H PRN PRN Reason: FEVER OR PAIN Acetylcysteine (Mucomyst 20 Oral / Inh Use Only*) 400 mg NEB BID [facility] Last Admin: 10/20/17 10:30 Dose: 400 mg Albuterol Sulfate (Ventolin 0.083% Nebulizer Soln -) 1 amp NEB Q4H PRN PRN Reason: SHORT OF BREATH/WHEEZING Last Admin: 10/20/17 10:30 Dose: 1 amp Amiodarone HCl (Cordarone -) 200 mg PEG DAILY [facility] Last Admin: 10/20/17 09:41 Dose: 200 mg Amlodipine Besylate (Norvasc -) 2.5 mg PEG DAILY [facility] Last Admin: 10/20/17 11:38 Dose: 2.5 mg Folic Acid (Folic Acid -) 1 mg GT DAILY [facility] Last Admin: 10/20/17 09:41 Dose: 1 mg Heparin Sodium (Porcine) (Heparin -) 5,000 unit SQ BID [facility] Last Admin: 10/20/17 10:00 Dose: 5,000 unit Caspofungin 50 mg/ Sodium (Chloride) 250 mls @ 250 mls/hr IV DAILY [facility] Last Admin: 10/20/17 09:42 Dose: 250 mls/hr Metoprolol Tartrate (Lopressor -) 50 mg PEG TID [facility] Last Admin: 10/20/17 06:22 Dose: 50 mg Morphine Sulfate (Morphine Sulfate) 2 mg IVPUSH Q8H PRN PRN Reason: PAIN Olanzapine (Zyprexa -) 2.5 mg PO BID [facility] Last Admin: 10/20/17 09:41 Dose: 2.5 mg Torsemide (Demadex -) 20 mg PO DAILY [facility] Last Admin: 10/20/17 11:38 Dose: 20 mg - Objective Vital Signs: Vital Signs Temperature 97.6 F 10/20/17 09:00 Pulse Rate 76 10/20/17 09:00 Respiratory Rate 19 10/20/17 09:00 Blood Pressure 149/90 10/20/17 09:00 O2 Sat by Pulse Oximetry (%) 97 10/20/17 09:00 Constitutional: Yes: Mild Distress Eyes: Yes: WNL, Occular Prosthesis HENT: Yes: Tonsillar Exudate Cardiovascular: Yes: WNL Respiratory: Yes: Other (TRACH COLLAR) Gastrointestinal: Yes: WNL Genitourinary: Yes: Incontinence, Other Musculoskeletal: Yes: Muscle Weakness Edema: No Peripheral Pulses WNL: Yes Integumentary: Yes: WNL Wound/Incision: Yes: Clean/Dry Neurological: Yes: Pre-Existing Deficit ...Motor Strength: LLE, RLE Psychiatric: Yes: Agitated Labs: CBC, BMP 10/20/17 06:37 10/20/17 06:37 INR, PTT INR 1.11 (0.82-1.09) 10/15/17 21:16 Problem List - Problems (1) Acute and chronic respiratory failure Code(s): J96.20 - ACUTE AND CHR RESP FAILURE, UNSP W HYPOXIA OR HYPERCAPNIA Qualifiers: Respiratory failure complication: hypoxia and hypercapnia Qualified Code(s) : J96.21 - Acute and chronic respiratory failure with hypoxia; J96.22 - Acute and chronic respiratory failure with hypercapnia; J96.22 - Acute and chronic respiratory failure with hypercapnia; J96.22 - Acute and chronic respiratory failure with hypercapnia (2) Agitation Code(s): R45.1 - RESTLESSNESS AND AGITATION (3) Atrial flutter by electrocardiogram Code(s): I48.92 - UNSPECIFIED ATRIAL FLUTTER (4) Respiratory distress Code(s): R06.03 - ACUTE RESPIRATORY DISTRESS Assessment/Plan PATIENT WANTS TO WALK AND GET OUT OF BED PT EVAL ORDERED NO NEED FOR RESTRAINTS PATIENT CALM RESP SUPPORT DC PLANNING K+ REPLETED
[2017-10-20 13:08] LABS: BASO % 0.7 % (0-2.0); EOS % 3.7 % (0-4.5); MCH 29.6 pg (25.7-33.7); MCHC 34.2 g/dl (32.0-35.9); MEAN CELL VOLUME 86.7 fl (80-96); MEAN PLT VOLUME 6.7 fl (7.5-11.1); NEUT % 72.1 % (42.8-82.8); PLATELET COUNT 300 K/MM3 (134-434); RDW 16.4 % (11.9-15.9); WHITE BLOOD COUNT 10.8 K/mm3 (4.0-10.0)
[2017-10-20 13:31] LABS: ALBUMIN 2.6 g/dl (3.4-5.0); BILIRUBIN,DIRECT 0.2 mg/dL (0.0-0.2); BILIRUBIN,TOTAL 0.6 mg/dL (0.2-1.0); TOT PROT 8.6 g/dl (6.4-8.2)
--- NOTE | 2017-10-20 14:30 | PN ---
Progress Note, Physician History of Present Illness: On reg. floor now. No events. Awake, alert. Hgb stable. No gross bleeding - Current Medication List Current Medications: Active Medications Acetaminophen (Tylenol Oral Solution -) 650 mg GT Q6H PRN PRN Reason: FEVER OR PAIN Acetylcysteine (Mucomyst 20 Oral / Inh Use Only*) 400 mg NEB BID [facility] Last Admin: 10/20/17 10:30 Dose: 400 mg Albuterol Sulfate (Ventolin 0.083% Nebulizer Soln -) 1 amp NEB Q4H PRN PRN Reason: SHORT OF BREATH/WHEEZING Last Admin: 10/20/17 10:30 Dose: 1 amp Amiodarone HCl (Cordarone -) 200 mg PEG DAILY [facility] Last Admin: 10/20/17 09:41 Dose: 200 mg Amlodipine Besylate (Norvasc -) 2.5 mg PEG DAILY [facility] Last Admin: 10/20/17 11:38 Dose: 2.5 mg Folic Acid (Folic Acid -) 1 mg GT DAILY [facility] Last Admin: 10/20/17 09:41 Dose: 1 mg Heparin Sodium (Porcine) (Heparin -) 5,000 unit SQ BID [facility] Last Admin: 10/20/17 10:00 Dose: 5,000 unit Caspofungin 50 mg/ Sodium (Chloride) 250 mls @ 250 mls/hr IV DAILY [facility] Last Admin: 10/20/17 09:42 Dose: 250 mls/hr Metoprolol Tartrate (Lopressor -) 50 mg PEG TID [facility] Last Admin: 10/20/17 14:05 Dose: 50 mg Morphine Sulfate (Morphine Sulfate) 2 mg IVPUSH Q8H PRN PRN Reason: PAIN Olanzapine (Zyprexa -) 2.5 mg PO BID [facility] Last Admin: 10/20/17 09:41 Dose: 2.5 mg Torsemide (Demadex -) 20 mg PO DAILY [facility] Last Admin: 10/20/17 11:38 Dose: 20 mg - Objective Vital Signs: Vital Signs Temperature 97.8 F 10/20/17 14:04 Pulse Rate 88 10/20/17 14:04 Respiratory Rate 20 10/20/17 14:04 Blood Pressure 149/98 10/20/17 14:04 O2 Sat by Pulse Oximetry (%) 97 10/20/17 09:00 Constitutional: Yes: No Distress, Calm Gastrointestinal: Yes: Soft. No: Melena, Rectal Bleeding, Tenderness Labs: CBC, BMP 10/20/17 12:40 10/20/17 06:37 INR, PTT INR 1.11 (0.82-1.09) 10/15/17 21:16 Problem List - Problems (1) Acute and chronic respiratory failure Code(s): J96.20 - ACUTE AND CHR RESP FAILURE, UNSP W HYPOXIA OR HYPERCAPNIA Qualifiers: Respiratory failure complication: hypoxia and hypercapnia Qualified Code(s) : J96.21 - Acute and chronic respiratory failure with hypoxia; J96.22 - Acute and chronic respiratory failure with hypercapnia; J96.22 - Acute and chronic respiratory failure with hypercapnia; J96.22 - Acute and chronic respiratory failure with hypercapnia (2) Abuse, drug or alcohol Code(s): F19.10 - OTHER PSYCHOACTIVE SUBSTANCE ABUSE, UNCOMPLICATED (3) Acute diastolic heart failure Code(s): I50.31 - ACUTE DIASTOLIC (CONGESTIVE) HEART FAILURE (4) Alkaline phosphatase elevation Code(s): R74.8 - ABNORMAL LEVELS OF OTHER SERUM ENZYMES (5) Anemia Code(s): D64.9 - ANEMIA, UNSPECIFIED Qualifiers: Anemia type: unspecified type Qualified Code(s): D64.9 - Anemia, unspecified (6) Rectal ulcer Code(s): K62.6 - ULCER OF ANUS AND RECTUM Assessment/Plan Will continue to monitor closely Continue gastrostomy feeds with PEG care protocol and aspiration precautions Colonoscopy before d/c
--- NOTE | 2017-10-20 14:47 | PN ---
Progress Note, Physician History of Present Illness: pulmonary awake,-resp distress - Current Medication List Current Medications: Active Medications Acetaminophen (Tylenol Oral Solution -) 650 mg GT Q6H PRN PRN Reason: FEVER OR PAIN Acetylcysteine (Mucomyst 20 Oral / Inh Use Only*) 400 mg NEB BID [facility] Last Admin: 10/20/17 10:30 Dose: 400 mg Albuterol Sulfate (Ventolin 0.083% Nebulizer Soln -) 1 amp NEB Q4H PRN PRN Reason: SHORT OF BREATH/WHEEZING Last Admin: 10/20/17 10:30 Dose: 1 amp Amiodarone HCl (Cordarone -) 200 mg PEG DAILY [facility] Last Admin: 10/20/17 09:41 Dose: 200 mg Amlodipine Besylate (Norvasc -) 2.5 mg PEG DAILY [facility] Last Admin: 10/20/17 11:38 Dose: 2.5 mg Folic Acid (Folic Acid -) 1 mg GT DAILY [facility] Last Admin: 10/20/17 09:41 Dose: 1 mg Heparin Sodium (Porcine) (Heparin -) 5,000 unit SQ BID [facility] Last Admin: 10/20/17 10:00 Dose: 5,000 unit Caspofungin 50 mg/ Sodium (Chloride) 250 mls @ 250 mls/hr IV DAILY [facility] Last Admin: 10/20/17 09:42 Dose: 250 mls/hr Metoprolol Tartrate (Lopressor -) 50 mg PEG TID [facility] Last Admin: 10/20/17 14:05 Dose: 50 mg Morphine Sulfate (Morphine Sulfate) 2 mg IVPUSH Q8H PRN PRN Reason: PAIN Olanzapine (Zyprexa -) 2.5 mg PO BID [facility] Last Admin: 10/20/17 09:41 Dose: 2.5 mg Torsemide (Demadex -) 20 mg PO DAILY [facility] Last Admin: 10/20/17 11:38 Dose: 20 mg - Objective Vital Signs: Vital Signs Temperature 97.8 F 10/20/17 14:04 Pulse Rate 88 10/20/17 14:04 Respiratory Rate 20 10/20/17 14:04 Blood Pressure 149/98 10/20/17 14:04 O2 Sat by Pulse Oximetry (%) 97 10/20/17 09:00 Constitutional: Yes: Calm, Thin Eyes: Yes: WNL HENT: Yes: WNL Neck: Yes: Supple (trach) Cardiovascular: Yes: Pulse Irregular, S1 Respiratory: Yes: Rhonchi (scattered rhonchi) Gastrointestinal: Yes: Normal Bowel Sounds, Soft Extremities: Yes: WNL Edema: No Labs: CBC, BMP 10/20/17 12:40 10/20/17 06:37 INR, PTT INR 1.11 (0.82-1.09) 10/15/17 21:16 Problem List - Problems (1) Acute and chronic respiratory failure Code(s): J96.20 - ACUTE AND CHR RESP FAILURE, UNSP W HYPOXIA OR HYPERCAPNIA Qualifiers: Respiratory failure complication: hypoxia and hypercapnia Qualified Code(s) : J96.21 - Acute and chronic respiratory failure with hypoxia; J96.22 - Acute and chronic respiratory failure with hypercapnia; J96.22 - Acute and chronic respiratory failure with hypercapnia; J96.22 - Acute and chronic respiratory failure with hypercapnia (2) Agitation Code(s): R45.1 - RESTLESSNESS AND AGITATION (3) Respiratory distress Code(s): R06.03 - ACUTE RESPIRATORY DISTRESS (4) Alkaline phosphatase elevation Code(s): R74.8 - ABNORMAL LEVELS OF OTHER SERUM ENZYMES (5) Anemia Code(s): D64.9 - ANEMIA, UNSPECIFIED Qualifiers: Anemia type: unspecified type Qualified Code(s): D64.9 - Anemia, unspecified (6) History of alcohol abuse Code(s): Z87.898 - PERSONAL HISTORY OF OTHER SPECIFIED CONDITIONS (7) Paroxysmal atrial fibrillation Code(s): I48.0 - PAROXYSMAL ATRIAL FIBRILLATION (8) Pneumonia Code(s): J18.9 - PNEUMONIA, UNSPECIFIED ORGANISM Qualifiers: Pneumonia type: aspiration pneumonia (9) Respiratory failure with hypoxia Code(s): J96.91 - RESPIRATORY FAILURE, UNSPECIFIED WITH HYPOXIA Qualifiers: Chronicity: acute Qualified Code(s): J96.01 - Acute respiratory failure with hypoxia (10) Status post tracheostomy Code(s): Z93.0 - TRACHEOSTOMY STATUS Assessment/Plan A/P Vent Dependent Chronic Respiratory Failure Atrial Fibrillation with RVR Acute on Chronic Renal Failure Loculated Pleural Effusions Anemia - speaking valve - spontaneous breathing trials as tolerated - enteral feeds - DVT/GI prophylaxis - rate controlled - f/u chest x-rays DR SANTAMARIA
[2017-10-20] MEDS ORDERED: HALOPERIDOL LACTATE 5 MG/ML IM ONE (17:40)
[2017-10-20] MEDS ORDERED: ACETYLCYSTEINE 20% 200MG/ML 4 ML VIAL *FOR ORAL / INH USE ONLY ONE (21:36)
[2017-10-21] MEDS: METOPROLOL TARTRATE 50 MG TABLET (FP) PEG SCH ×3 (06:25→22:27)
[2017-10-21] MEDS ORDERED: ACETYLCYSTEINE 20% 200MG/ML 4 ML VIAL *FOR ORAL / INH USE ONLY ONE (09:51)
[2017-10-21] MEDS ORDERED: PT OWN MED DRAWER 7, Y5N ONE (09:52)
--- NOTE | 2017-10-21 10:10 | PN ---
Progress Note, Physician Chief Complaint: Anemia, Respiratory failure, s/p Fall History of Present Illness: patient uncooperative this AM pulling on his PEG and trach collar wants to drink and eat refused PT - Current Medication List Current Medications: Active Medications Acetaminophen (Tylenol Oral Solution -) 650 mg GT Q6H PRN PRN Reason: FEVER OR PAIN Acetylcysteine (Mucomyst 20 Oral / Inh Use Only*) 400 mg NEB BID [facility] Last Admin: 10/20/17 22:05 Dose: 400 mg Albuterol Sulfate (Ventolin 0.083% Nebulizer Soln -) 1 amp NEB Q4H PRN PRN Reason: SHORT OF BREATH/WHEEZING Last Admin: 10/20/17 22:05 Dose: 1 amp Amiodarone HCl (Cordarone -) 200 mg PEG DAILY [facility] Last Admin: 10/20/17 09:41 Dose: 200 mg Amlodipine Besylate (Norvasc -) 2.5 mg PEG DAILY [facility] Last Admin: 10/20/17 11:38 Dose: 2.5 mg Folic Acid (Folic Acid -) 1 mg GT DAILY [facility] Last Admin: 10/20/17 09:41 Dose: 1 mg Heparin Sodium (Porcine) (Heparin -) 5,000 unit SQ BID [facility] Last Admin: 10/20/17 21:28 Dose: 5,000 unit Caspofungin 50 mg/ Sodium (Chloride) 250 mls @ 250 mls/hr IV DAILY [facility] Last Admin: 10/20/17 09:42 Dose: 250 mls/hr Metoprolol Tartrate (Lopressor -) 50 mg PEG TID [facility] Last Admin: 10/21/17 06:25 Dose: 50 mg Morphine Sulfate (Morphine Sulfate) 2 mg IVPUSH Q8H PRN PRN Reason: PAIN Olanzapine (Zyprexa -) 2.5 mg PO BID [facility] Last Admin: 10/20/17 21:30 Dose: 2.5 mg Torsemide (Demadex -) 20 mg PO DAILY [facility] Last Admin: 10/20/17 11:38 Dose: 20 mg - Objective Vital Signs: Vital Signs Temperature 97.4 F L 10/21/17 07:04 Pulse Rate 91 H 10/21/17 07:04 Respiratory Rate 18 10/21/17 07:04 Blood Pressure 163/93 10/21/17 07:04 O2 Sat by Pulse Oximetry (%) 98 10/20/17 22:05 Constitutional: Yes: Well Nourished, No Distress, Calm Cardiovascular: Yes: Regular Rate and Rhythm Respiratory: Yes: Regular Gastrointestinal: Yes: Normal Bowel Sounds Musculoskeletal: Yes: WNL Extremities: Yes: WNL Edema: No Peripheral Pulses WNL: Yes Neurological: Yes: Alert Psychiatric: Yes: Alert Labs: CBC, BMP 10/20/17 12:40 10/20/17 06:37 INR, PTT INR 1.11 (0.82-1.09) 10/15/17 21:16 Problem List - Problems (1) Acute and chronic respiratory failure Assessment/Plan: -doing well on trach collar, although keep removing the collar -95% on room air, encouraged to keep it on for humidification- purposes Code(s): J96.20 - ACUTE AND CHR RESP FAILURE, UNSP W HYPOXIA OR HYPERCAPNIA Qualifiers: Respiratory failure complication: hypoxia and hypercapnia Qualified Code(s) : J96.21 - Acute and chronic respiratory failure with hypoxia; J96.22 - Acute and chronic respiratory failure with hypercapnia; J96.22 - Acute and chronic respiratory failure with hypercapnia; J96.22 - Acute and chronic respiratory failure with hypercapnia (2) Abuse, drug or alcohol Code(s): F19.10 - OTHER PSYCHOACTIVE SUBSTANCE ABUSE, UNCOMPLICATED (3) Anemia Assessment/Plan: -seen by Hematology -Guaiac stool x 1 negative, please guaiac all stools -repeat labs today Code(s): D64.9 - ANEMIA, UNSPECIFIED Qualifiers: Anemia type: unspecified type Qualified Code(s): D64.9 - Anemia, unspecified (4) Paroxysmal atrial fibrillation Code(s): I48.0 - PAROXYSMAL ATRIAL FIBRILLATION (5) Fungemia Assessment/Plan: -on IV antifungal -ID on board Code(s): B49 - UNSPECIFIED MYCOSIS (6) History of alcohol abuse Code(s): Z87.898 - PERSONAL HISTORY OF OTHER SPECIFIED CONDITIONS Assessment/Plan see problem list -Swallow eval -augusta mittens for safety -4 rails of the bed up
[2017-10-21] MEDS: AMIODARONE HCL 200 MG TABLET (FP) PEG SCH (10:12)
[2017-10-21] MEDS: OLANZapine 2.5 MG TABLET PO SCH ×2 (10:12→22:27)
[2017-10-21] MEDS: FOLIC ACID 1 MG TABLET (FP) GT SCH (10:12)
[2017-10-21] MEDS: TORSEMIDE 20 MG TABLET (FP) PO SCH (10:12)
[2017-10-21] MEDS: amLODIPine BESYLATE 2.5 MG TABLET (FP) PEG SCH (10:12)
[2017-10-21] MEDS: HEPARIN NA (PORCINE) 5,000 UNITS/ML 1ML VIAL SQ SCH ×2 (10:13→22:27)
[2017-10-21] MEDS: CASPOFUNGIN ACETATE 50 MG in SODIUM CHLORIDE 250 ML IV SCH (10:13)
[2017-10-21] MEDS: ACETYLCYSTEINE 20% 200MG/ML 30 ML VIAL *FOR ORAL / INH USE ONLY NEB SCH ×2 (10:27→22:01)
[2017-10-21] MEDS ORDERED: POTASSIUM CHLORIDE 20 MEQ PREMIX IVPB 100 ML IVPB SCH (12:00)
--- NOTE | 2017-10-21 12:12 | PN ---
Progress Note, Physician Chief Complaint: Currently on trache collar Awake and responsive History of Present Illness: Patient was seen and examined. Awake. Chart was reviewed Denies chest pain or palpitations - Current Medication List Current Medications: Active Medications Acetaminophen (Tylenol Oral Solution -) 650 mg GT Q6H PRN PRN Reason: FEVER OR PAIN Acetylcysteine (Mucomyst 20 Oral / Inh Use Only*) 400 mg NEB BID [facility] Last Admin: 10/21/17 10:27 Dose: 400 mg Albuterol Sulfate (Ventolin 0.083% Nebulizer Soln -) 1 amp NEB Q4H PRN PRN Reason: SHORT OF BREATH/WHEEZING Last Admin: 10/20/17 22:05 Dose: 1 amp Amiodarone HCl (Cordarone -) 200 mg PEG DAILY [facility] Last Admin: 10/21/17 10:12 Dose: 200 mg Amlodipine Besylate (Norvasc -) 2.5 mg PEG DAILY [facility] Last Admin: 10/21/17 10:12 Dose: 2.5 mg Folic Acid (Folic Acid -) 1 mg GT DAILY [facility] Last Admin: 10/21/17 10:12 Dose: 1 mg Heparin Sodium (Porcine) (Heparin -) 5,000 unit SQ BID [facility] Last Admin: 10/21/17 10:13 Dose: 5,000 unit Caspofungin 50 mg/ Sodium (Chloride) 250 mls @ 250 mls/hr IV DAILY [facility] Last Admin: 10/21/17 10:13 Dose: 250 mls/hr Potassium Chloride 30 meq/ (Sodium Chloride) 315 mls @ 88.333 mls/hr IVPB ONCE ONE Stop: 10/21/17 15:48 Metoprolol Tartrate (Lopressor -) 50 mg PEG TID [facility] Last Admin: 10/21/17 06:25 Dose: 50 mg Morphine Sulfate (Morphine Sulfate) 2 mg IVPUSH Q8H PRN PRN Reason: PAIN Olanzapine (Zyprexa -) 2.5 mg PO BID [facility] Last Admin: 10/21/17 10:12 Dose: 2.5 mg Potassium Chloride (Potassium Chloride Oral Liquid) 40 meq PO DAILY [facility] Torsemide (Demadex -) 20 mg PO DAILY [facility] Last Admin: 10/21/17 10:12 Dose: 20 mg - Objective Vital Signs: Vital Signs Temperature 98.4 F 10/21/17 10:09 Pulse Rate 85 10/21/17 10:27 Respiratory Rate 19 10/21/17 10:09 Blood Pressure 153/91 10/21/17 10:09 O2 Sat by Pulse Oximetry (%) 95 10/21/17 10:27 HENT: Yes: Hoarseness Cardiovascular: Yes: Regular Rate and Rhythm, S1, S2 Respiratory: Yes: Diminished, Other (Trache collar) Gastrointestinal: Yes: Normal Bowel Sounds, Soft. No: Tenderness Edema: No Labs: CBC, BMP 10/20/17 12:40 10/20/17 06:37 Problem List - Problems (1) Acute and chronic respiratory failure Code(s): J96.20 - ACUTE AND CHR RESP FAILURE, UNSP W HYPOXIA OR HYPERCAPNIA Qualifiers: Respiratory failure complication: hypoxia and hypercapnia Qualified Code(s) : J96.21 - Acute and chronic respiratory failure with hypoxia; J96.22 - Acute and chronic respiratory failure with hypercapnia; J96.22 - Acute and chronic respiratory failure with hypercapnia; J96.22 - Acute and chronic respiratory failure with hypercapnia (2) Fungemia Code(s): B49 - UNSPECIFIED MYCOSIS (3) Abuse, drug or alcohol Code(s): F19.10 - OTHER PSYCHOACTIVE SUBSTANCE ABUSE, UNCOMPLICATED (4) Acute diastolic heart failure Code(s): I50.31 - ACUTE DIASTOLIC (CONGESTIVE) HEART FAILURE (5) Acute kidney injury Code(s): N17.9 - ACUTE KIDNEY FAILURE, UNSPECIFIED (6) Anemia Code(s): D64.9 - ANEMIA, UNSPECIFIED Qualifiers: Anemia type: unspecified type Qualified Code(s): D64.9 - Anemia, unspecified (7) History of alcohol abuse Code(s): Z87.898 - PERSONAL HISTORY OF OTHER SPECIFIED CONDITIONS (8) Hypernatremia Code(s): E87.0 - HYPEROSMOLALITY AND HYPERNATREMIA (9) Hypokalemia Code(s): E87.6 - HYPOKALEMIA (10) Paroxysmal atrial fibrillation Code(s): I48.0 - PAROXYSMAL ATRIAL FIBRILLATION (11) Pneumonia Code(s): J18.9 - PNEUMONIA, UNSPECIFIED ORGANISM Qualifiers: Pneumonia type: aspiration pneumonia (12) Respiratory failure with hypoxia Code(s): J96.91 - RESPIRATORY FAILURE, UNSPECIFIED WITH HYPOXIA Qualifiers: Chronicity: acute Qualified Code(s): J96.01 - Acute respiratory failure with hypoxia (13) Status post tracheostomy Code(s): Z93.0 - TRACHEOSTOMY STATUS (14) Thrombocytopenia Code(s): D69.6 - THROMBOCYTOPENIA, UNSPECIFIED (15) Withdrawal symptoms, alcohol Code(s): F10.239 - ALCOHOL DEPENDENCE WITH WITHDRAWAL, UNSPECIFIED Qualifiers: Complication of substance-induced condition: uncomplicated Qualified Code(s ): F10.230 - Alcohol dependence with withdrawal, uncomplicated Assessment/Plan 1. Fungemia vs. colonization 2. Paroxysmal atrial fibrillation [id number] score of 2, likely not an ideal candidate for fpc anticoagulation with explanation by Dr. Blackwell. 3. History of acute hypoxic respiratory failure, post tracheotomy 4. History of cavitating pneumonia, MSSA bacteremia, post septic shock no evidence of endocarditis by ALISA criteria 5. History of diastolic LV dysfunction with class I-II NYHA congestive heart failure, compensated/euvolemic 6. History of osteomyelitis T9-T10 discitis 7. History of loculated pleural effusion post chest tube insertion 8. History of alcohol dependence 9. Acute renal insufficiency 10. Anemia 11. Hypokalemia 12. Hypernatremia PLAN: 1. Continue Lopressor via PEG 2. Continue Amiodarone via PEG 3. Continue Norvasc 4. Defer fpc A/C considering his presentation and co-morbidities 5. Consider transfusion to maintain Hgb equal or > 8.0 6. Monitor electrolytes 7. Antifungal as per ID service Further plans are to follow Jordon Gtz MD
[2017-10-21] MEDS ORDERED: POTASSIUM CHLORIDE 30 MEQ in SODIUM CHLORIDE 300 ML IVPB ONE (12:15)
[2017-10-21 12:30] LABS: BASO % 0.8 % (0-2.0); EOS % 4.1 % (0-4.5); MCH 29.3 pg (25.7-33.7); MCHC 33.7 g/dl (32.0-35.9); MEAN PLT VOLUME 6.8 fl (7.5-11.1); NEUT % 67.6 % (42.8-82.8); PLATELET COUNT 311 K/MM3 (134-434); RDW 16.8 % (11.9-15.9); WHITE BLOOD COUNT 11.7 K/mm3 (4.0-10.0)
[2017-10-21 12:55] LABS: ALBUMIN 2.8 g/dl (3.4-5.0); BILIRUBIN,DIRECT 0.2 mg/dL (0.0-0.2)
[2017-10-21 12:57] LABS: BILIRUBIN,TOTAL 0.6 mg/dL (0.2-1.0); TOT PROT 8.4 g/dl (6.4-8.2)
--- NOTE | 2017-10-21 13:00 | CONSULT ---
Admitting History and Physical - Primary Care Physician PCP: Carmelita Boss - Admission History of Present Illness: Awake and alert. Comfortable on Trach collar. Patient reported to be uncooperative this AM pulling on his PEG and trach collar wants to drink and eat History Source: Patient, Medical Record Limitations to Obtaining History: Clinical Condition - Past Medical History Cardiovascular: Yes: HTN Pulmonary: Yes: Pneumonia Renal/: Yes: Renal Failure, Renal Inusuff Heme/Onc: Yes: Anemia Musculoskeletal: Yes: Other (left rib pain ) - Smoking History Smoking history: Former smoker Have you smoked in the past 12 months: No If you are a former smoker, when did you quit?: 42 years ago - Alcohol/Substance Use Hx Alcohol Use: Yes Number of Drinks Daily: 8 (He states he drinks about 8 16oz drinks per day) - Social History ADL: Independent History - Admission Reason For Visit: DEPENDENT ON VENTILATOR,AGITATION - Diagnostics X-ray: Report Reviewed - General Mental Status: Awake and Alert, Forgetful, Intermittently Confused Attention: Distractible - Hearing Hearing: Impaired, Both Speech Evaluation - Communication Primary Language: [place] Communication: Yes: Simple Responses (speaking. audble intermittently with trach collar.) - Speech Characteristics Voice Loudness: Excessive Variation Articulation: Yes: Precise - Language/Auditory Comprehension Follows: Yes: 1 Stage Simple Commands - Swallow Evaluation/Bedside Assessment Current Nutritional Intake: NPO, G Tube Dentition: Yes: Edentulous Facial Symmetry at Rest: Symmetrical Lingual Movement: Symmetric Lingual Speed of Movement: Normal Lingual Movement Strgth Against Opposition: Normal Lingual Movement Characteristics: Normal Laryngeal Movement: Able to Palpate A-P Transit: Impaired Recommendations - Speech Evaluation, Impression/Plan Impression: Trach collar. PEG. Tolerated PMV on last admission. Swallow is overtly improved. - Disposition Discharge to: Assisted Facility - Dysphagia Impressions/Plan Dysphagia Impressions: Ongoing Evaluation *Silent aspiration: cannot be R/O at bedside Recommendations: Modified Barium Swallow, Passy [place] Valve
--- NOTE | 2017-10-21 13:01 | PN ---
Progress Note (short form) - Note Progress Note: Awake and alert. Comfortable on Trach collar. No acute events overnight. Intake & Output 10/18/17 10/19/17 10/20/17 10/21/17 23:59 23:59 23:59 23:59 Intake Total 1775 2100 2470 1080 Balance [id number] 247 1080 Weight 173 lb 12.8 oz Last Vital Signs Temp Pulse Resp BP Pulse Ox 98.4 F 85 19 153/91 95 10/21/17 10:09 10/21/17 10:27 10/21/17 10:09 10/21/17 10:09 10/21/17 10:27 Active Medications Acetaminophen (Tylenol Oral Solution -) 650 mg GT Q6H PRN PRN Reason: FEVER OR PAIN Acetylcysteine (Mucomyst 20 Oral / Inh Use Only*) 400 mg NEB BID [facility] Last Admin: 10/21/17 10:27 Dose: 400 mg Albuterol Sulfate (Ventolin 0.083% Nebulizer Soln -) 1 amp NEB Q4H PRN PRN Reason: SHORT OF BREATH/WHEEZING Last Admin: 10/20/17 22:05 Dose: 1 amp Amiodarone HCl (Cordarone -) 200 mg PEG DAILY [facility] Last Admin: 10/21/17 10:12 Dose: 200 mg Amlodipine Besylate (Norvasc -) 2.5 mg PEG DAILY [facility] Last Admin: 10/21/17 10:12 Dose: 2.5 mg Folic Acid (Folic Acid -) 1 mg GT DAILY [facility] Last Admin: 10/21/17 10:12 Dose: 1 mg Heparin Sodium (Porcine) (Heparin -) 5,000 unit SQ BID [facility] Last Admin: 10/21/17 10:13 Dose: 5,000 unit Caspofungin 50 mg/ Sodium (Chloride) 250 mls @ 250 mls/hr IV DAILY [facility] Last Admin: 10/21/17 10:13 Dose: 250 mls/hr Potassium Chloride 30 meq/ (Sodium Chloride) 315 mls @ 88.333 mls/hr IVPB ONCE ONE Stop: 10/21/17 15:48 Metoprolol Tartrate (Lopressor -) 50 mg PEG TID [facility] Last Admin: 10/21/17 06:25 Dose: 50 mg Morphine Sulfate (Morphine Sulfate) 2 mg IVPUSH Q8H PRN PRN Reason: PAIN Olanzapine (Zyprexa -) 2.5 mg PO BID [facility] Last Admin: 10/21/17 10:12 Dose: 2.5 mg Potassium Chloride (Potassium Chloride Oral Liquid) 40 meq PO DAILY [facility] Torsemide (Demadex -) 20 mg PO DAILY [facility] Last Admin: 10/21/17 10:12 Dose: 20 mg Constitutional: Yes: NAD Eyes: Yes: WNL HENT: Yes: WNL Neck: Yes: Supple (trach) Cardiovascular: Yes: Pulse Irregular, S1 Respiratory: Yes: Few scattered Rhonchi Gastrointestinal: Yes: Normal Bowel Sounds, Soft Extremities: Yes: WNL Edema: No Labs: Laboratory Results - last 24 hr 10/16/17 10/20/17 10/20/17 14:00 12:40 12:40 WBC 10.8 H RBC 3.32 L Hgb 9.9 L Hct 28.8 L MCV 86.7 MCH 29.6 MCHC 34.2 RDW 16.4 H Plt Count 300 MPV 6.7 L Neutrophils % 72.1 Lymphocytes % 14.7 Monocytes % 8.8 Eosinophils % 3.7 Basophils % 0.7 Total Bilirubin 0.6 Direct Bilirubin 0.2 AST 43 H ALT 35 Alkaline Phosphatase 340 H Total Protein 8.6 H Albumin 2.6 L Crossmatch See Detail 10/21/17 10/21/17 11:55 11:55 WBC 11.7 H RBC 3.32 L Hgb 9.7 L Hct 28.9 L MCV 87.0 MCH 29.3 MCHC 33.7 RDW 16.8 H Plt Count 311 MPV 6.8 L Neutrophils % 67.6 Lymphocytes % 15.7 Monocytes % 11.8 H Eosinophils % 4.1 Basophils % 0.8 Total Bilirubin 0.6 Direct Bilirubin 0.2 AST 40 H ALT 36 Alkaline Phosphatase 287 H Total Protein 8.4 H Albumin 2.8 L Crossmatch Problem List - Problems (1) Acute and chronic respiratory failure Code(s): J96.20 - ACUTE AND CHR RESP FAILURE, UNSP W HYPOXIA OR HYPERCAPNIA Qualifiers: Respiratory failure complication: hypoxia and hypercapnia Qualified Code(s) : J96.21 - Acute and chronic respiratory failure with hypoxia; J96.22 - Acute and chronic respiratory failure with hypercapnia; J96.22 - Acute and chronic respiratory failure with hypercapnia; J96.22 - Acute and chronic respiratory failure with hypercapnia (2) Agitation Code(s): R45.1 - RESTLESSNESS AND AGITATION (3) Respiratory distress Code(s): R06.03 - ACUTE RESPIRATORY DISTRESS (4) Alkaline phosphatase elevation Code(s): R74.8 - ABNORMAL LEVELS OF OTHER SERUM ENZYMES (5) Anemia Code(s): D64.9 - ANEMIA, UNSPECIFIED Qualifiers: Anemia type: unspecified type Qualified Code(s): D64.9 - Anemia, unspecified (6) History of alcohol abuse Code(s): Z87.898 - PERSONAL HISTORY OF OTHER SPECIFIED CONDITIONS (7) Paroxysmal atrial fibrillation Code(s): I48.0 - PAROXYSMAL ATRIAL FIBRILLATION (8) Pneumonia Code(s): J18.9 - PNEUMONIA, UNSPECIFIED ORGANISM Qualifiers: Pneumonia type: aspiration pneumonia (9) Respiratory failure with hypoxia Code(s): J96.91 - RESPIRATORY FAILURE, UNSPECIFIED WITH HYPOXIA Qualifiers: Chronicity: acute Qualified Code(s): J96.01 - Acute respiratory failure with hypoxia (10) Status post tracheostomy Code(s): Z93.0 - TRACHEOSTOMY STATUS Assessment/Plan A/P Vent Dependent Chronic Respiratory Failure Atrial Fibrillation with RVR Acute on Chronic Renal Failure Loculated Pleural Effusions Anemia - PMV as tolerated - Trach collar O2 - DVT prophylaxis - D/C planning ' Dr Griffin
[2017-10-21 13:02] LABS: BASO % 0.9 % (0-2.0); EOS % 4.3 % (0-4.5); MCH 29.4 pg (25.7-33.7); MCHC 33.5 g/dl (32.0-35.9); MEAN CELL VOLUME 87.6 fl (80-96); MEAN PLT VOLUME 6.7 fl (7.5-11.1); NEUT % 68.2 % (42.8-82.8); PLATELET COUNT 300 K/MM3 (134-434); RDW 16.4 % (11.9-15.9); WHITE BLOOD COUNT 10.4 K/mm3 (4.0-10.0)
--- NOTE | 2017-10-21 13:07 | PN ---
Progress Note, Physician History of Present Illness: Pt seen and examined at bedside. He is awake and appears comfortable. He says he is thirsty. - Current Medication List Current Medications: Active Medications Acetaminophen (Tylenol Oral Solution -) 650 mg GT Q6H PRN PRN Reason: FEVER OR PAIN Acetylcysteine (Mucomyst 20 Oral / Inh Use Only*) 400 mg NEB BID [facility] Last Admin: 10/21/17 10:27 Dose: 400 mg Albuterol Sulfate (Ventolin 0.083% Nebulizer Soln -) 1 amp NEB Q4H PRN PRN Reason: SHORT OF BREATH/WHEEZING Last Admin: 10/20/17 22:05 Dose: 1 amp Amiodarone HCl (Cordarone -) 200 mg PEG DAILY [facility] Last Admin: 10/21/17 10:12 Dose: 200 mg Amlodipine Besylate (Norvasc -) 2.5 mg PEG DAILY [facility] Last Admin: 10/21/17 10:12 Dose: 2.5 mg Folic Acid (Folic Acid -) 1 mg GT DAILY [facility] Last Admin: 10/21/17 10:12 Dose: 1 mg Heparin Sodium (Porcine) (Heparin -) 5,000 unit SQ BID [facility] Last Admin: 10/21/17 10:13 Dose: 5,000 unit Caspofungin 50 mg/ Sodium (Chloride) 250 mls @ 250 mls/hr IV DAILY [facility] Last Admin: 10/21/17 10:13 Dose: 250 mls/hr Potassium Chloride 30 meq/ (Sodium Chloride) 315 mls @ 88.333 mls/hr IVPB ONCE ONE Stop: 10/21/17 15:48 Metoprolol Tartrate (Lopressor -) 50 mg PEG TID [facility] Last Admin: 10/21/17 06:25 Dose: 50 mg Morphine Sulfate (Morphine Sulfate) 2 mg IVPUSH Q8H PRN PRN Reason: PAIN Olanzapine (Zyprexa -) 2.5 mg PO BID [facility] Last Admin: 10/21/17 10:12 Dose: 2.5 mg Potassium Chloride (Potassium Chloride Oral Liquid) 40 meq PO DAILY [facility] Torsemide (Demadex -) 20 mg PO DAILY [facility] Last Admin: 10/21/17 10:12 Dose: 20 mg - Objective Vital Signs: Vital Signs Temperature 98.4 F 10/21/17 10:09 Pulse Rate 85 10/21/17 10:27 Respiratory Rate 19 10/21/17 10:09 Blood Pressure 153/91 10/21/17 10:09 O2 Sat by Pulse Oximetry (%) 95 10/21/17 10:27 Constitutional: Yes: Anxious Eyes: Yes: Conjunctiva Clear Cardiovascular: Yes: S1, S2 Respiratory: Yes: Other (has trache) Gastrointestinal: Yes: Soft, Other (peg) Genitourinary: Yes: Incontinence Musculoskeletal: Yes: Muscle Weakness Edema: Yes Edema: LUE: Trace, RUE: Trace Neurological: Yes: Oriented Labs: INR, PTT INR 1.11 (0.82-1.09) 10/15/17 21:16 - ....Imaging Chest X-ray: Report Reviewed Problem List - Problems (1) Acute and chronic respiratory failure Code(s): J96.20 - ACUTE AND CHR RESP FAILURE, UNSP W HYPOXIA OR HYPERCAPNIA Qualifiers: Respiratory failure complication: hypoxia and hypercapnia Qualified Code(s) : J96.21 - Acute and chronic respiratory failure with hypoxia; J96.22 - Acute and chronic respiratory failure with hypercapnia; J96.22 - Acute and chronic respiratory failure with hypercapnia; J96.22 - Acute and chronic respiratory failure with hypercapnia (2) Agitation Code(s): R45.1 - RESTLESSNESS AND AGITATION (3) Atrial flutter by electrocardiogram Code(s): I48.92 - UNSPECIFIED ATRIAL FLUTTER (4) Respiratory distress Code(s): R06.03 - ACUTE RESPIRATORY DISTRESS (5) Acute kidney injury Code(s): N17.9 - ACUTE KIDNEY FAILURE, UNSPECIFIED (6) Anemia Code(s): D64.9 - ANEMIA, UNSPECIFIED Qualifiers: Anemia type: unspecified type Qualified Code(s): D64.9 - Anemia, unspecified Assessment/Plan Current Medications Generic Name Dose Route Start Last Admin Trade Name Freq PRN Reason Stop Dose Admin Acetaminophen 650 mg 10/19/17 03:41 Tylenol Oral Solution - GT Q6H PRN FEVER OR PAIN Acetylcysteine 400 mg 10/19/17 10:00 10/21/17 10:27 Mucomyst 20 Oral / Inh Use Only* NEB 400 mg BID [facility] Administration Albuterol Sulfate 1 amp 10/19/17 03:41 10/20/17 22:05 Ventolin 0.083% Nebulizer Soln - NEB 1 amp Q4H PRN Administration SHORT OF BREATH/WHEEZING Amiodarone HCl 200 mg 10/19/17 10:00 10/21/17 10:12 Cordarone - PEG 200 mg DAILY [facility] Administration Amlodipine Besylate 2.5 mg 10/20/17 11:15 10/21/17 10:12 Norvasc - PEG 2.5 mg DAILY [facility] Administration Folic Acid 1 mg 10/19/17 10:00 10/21/17 10:12 Folic Acid - GT 1 mg DAILY [facility] Administration Heparin Sodium (Porcine) 5,000 unit 10/19/17 10:00 10/21/17 10:13 Heparin - SQ 5,000 unit BID [facility] Administration Caspofungin 50 mg/ Sodium 250 mls @ 250 mls/hr 10/19/17 10:00 10/21/17 10:13 Chloride IV 250 mls/hr DAILY [facility] Administration Potassium Chloride 30 meq/ 315 mls @ 88.333 mls/hr 10/21/17 12:15 Sodium Chloride IVPB 10/21/17 15:48 ONCE ONE Metoprolol Tartrate 50 mg 10/19/17 06:00 10/21/17 06:25 Lopressor - PEG 50 mg TID [facility] Administration Morphine Sulfate 2 mg 10/19/17 03:41 Morphine Sulfate IVPUSH Q8H PRN PAIN Olanzapine 2.5 mg 10/19/17 10:00 10/21/17 10:12 Zyprexa - PO 2.5 mg BID [facility] Administration Potassium Chloride 40 meq 10/22/17 10:00 Potassium Chloride Oral Liquid PO DAILY [facility] Torsemide 20 mg 10/19/17 10:00 10/21/17 10:12 Demadex - PO 20 mg DAILY [facility] Administration Impression 1. ALEXANDRA 2. fluid overload 3. hypoalbuminemia 4. respiratory failure requiring intubation 5. anemia 6. etoh abuse 7. fevers 8. hypokalemia 9. pleural effusion 10. hypernatremia 11. GI bleed 12. rash 13. a flutter Plan - follow up bloodwork - resume feeds and free water - will decrease dose of demedex to 10 mg - will follow - trache care - monitor hg - monitor pulse ox Dr Peres
[2017-10-21 13:33] LABS: ALBUMIN 2.7 g/dl (3.4-5.0); ANION GAP 10 (8-16); BILIRUBIN,TOTAL 0.5 mg/dL (0.2-1.0); CALCIUM 8.7 mg/dL (8.5-10.1); CO2 25 mmol/L (21-32); CREATININE 2.1 mg/dL (0.7-1.3); GLUCOSE,RANDOM 112 mg/dL (74-106); SGOT/AST 38 U/L (15-37); SGPT/ALT 34 U/L (12-78); TOT PROT 8.4 g/dl (6.4-8.2)
[2017-10-21 13:34] LABS: ALK PHOS 288 U/L (45-117)
--- NOTE | 2017-10-21 14:50 | PN ---
Progress Note, BANKING MANAGEMENT CONSULTING MANAGER - Note Progress Note: MBS-with PMV in place. Hang up/stasis with puree in pharynx, with improved clearance with effortful swallow technique. Single sips of nectar thick liquid tolerated. Penetration into laryngeal vestibule with sips of thin liquid. However, impulsive intake with silent aspiration on thin and nectar thick liquid with no responsive cough. When pt encouraged to cough to clear his airway , he refused to attempt to cough. Poor insight/cooperation. IMP: Silent aspiration on liquids intermittently. Pt lacks self-control/cognitive capacity at this time to safely use swallowing strategies to protect the airway. Rec: Daily use of PMV to improve sensation/swallowing function. Once stronger, will try try pleasure feedings with PMV in place with Ensure pudding. Avoid PO liquids. Tell pt to swallow HARD, twice, per 1/2 tspn. Monitor for congestion,fever, signs of aspiration.
--- NOTE | 2017-10-21 15:00 | PN ---
Progress Note (short form) - Note Progress Note: awake and alert talking no longer on the vent! Vital Signs Period Temp Pulse Resp BP Sys/Jeff Pulse Ox Last 24 Hr 97.4 F-98.5 F 78-91 18-20 140-163/84-106 95-98 left eye unchanged cor-rrr lungs decreased bs at bases abd soft, +GT ext no edema skin abrasions on the legs, no sacral skin breakdown Microbiology 10/17/17 10:05 Blood - Peripheral Venous Blood Culture - Preliminary NO GROWTH OBTAINED AFTER 96 HOURS, INCUBATION TO CONTINUE FOR 1 DAYS. 10/16/17 02:35 Blood - Peripheral Venous Blood Culture - Final NO GROWTH AFTER 5 DAYS INCUBATION 10/17/17 10:05 Blood - Peripheral Venous Blood Culture - Preliminary Pending Organism 10/17/17 06:00 Sputum - Endotrachea Suction/Ventilator Gram Stain - Final 10/17/17 06:00 Sputum - Endotrachea Suction/Ventilator Sputum Culture - Final NORMAL RESPIRATORY HERBER 10/16/17 02:30 Blood - Peripheral Venous Blood Culture - Preliminary Yeast Like Organism 10/16/17 02:35 Blood - Peripheral Venous Yeast/Fungus Identification - Preliminary 10/15/17 22:45 Urine - Urine Freeman Urine Culture - Final NO GROWTH OBTAINED CBC, BMP 10/21/17 12:46 10/21/17 12:46 Current Medications Acetaminophen (Tylenol Oral Solution -) 650 mg GT Q6H PRN PRN Reason: FEVER OR PAIN Acetylcysteine (Mucomyst 20 Oral / Inh Use Only*) 400 mg NEB BID [facility] Last Admin: 10/21/17 10:27 Dose: 400 mg Albuterol Sulfate (Ventolin 0.083% Nebulizer Soln -) 1 amp NEB Q4H PRN PRN Reason: SHORT OF BREATH/WHEEZING Last Admin: 10/20/17 22:05 Dose: 1 amp Amiodarone HCl (Cordarone -) 200 mg PEG DAILY [facility] Last Admin: 10/21/17 10:12 Dose: 200 mg Amlodipine Besylate (Norvasc -) 2.5 mg PEG DAILY [facility] Last Admin: 10/21/17 10:12 Dose: 2.5 mg Folic Acid (Folic Acid -) 1 mg GT DAILY [facility] Last Admin: 10/21/17 10:12 Dose: 1 mg Heparin Sodium (Porcine) (Heparin -) 5,000 unit SQ BID [facility] Last Admin: 12/04/17 10:13 Dose: 5,000 unit Caspofungin 50 mg/ Sodium (Chloride) 250 mls @ 250 mls/hr IV DAILY [facility] Last Admin: 10/21/17 10:13 Dose: 250 mls/hr Potassium Chloride 30 meq/ (Sodium Chloride) 315 mls @ 88.333 mls/hr IVPB ONCE ONE Stop: 10/21/17 15:48 Metoprolol Tartrate (Lopressor -) 50 mg PEG TID [facility] Last Admin: 10/21/17 06:25 Dose: 50 mg Morphine Sulfate (Morphine Sulfate) 2 mg IVPUSH Q8H PRN PRN Reason: PAIN Olanzapine (Zyprexa -) 2.5 mg PO BID [facility] Last Admin: 10/21/17 10:12 Dose: 2.5 mg Potassium Chloride (Potassium Chloride Oral Liquid) 40 meq PO DAILY [facility] Torsemide (Demadex -) 10 mg PO DAILY [facility] a/p fungemia- repeat blood cultures positive optho evaluation pending echo cancidas day #4 alk phos continues to trend down MSSA bacteremia/vertebral osteo T9/T10 day #45 of 56 order vanco level resume if less then 15 worsening renal function-suspect secondary to diuresis, cxray has improved history of possible AIN chronic respiratory failure
--- NOTE | 2017-10-21 16:23 | CONSULT ---
[place] Valve Eval - Assessment Prior to PMV Placement Patient and/or family educated re PMV: Yes Mental Status: Awake, Alert, Attempting to Communicate Secretions: Small Amount Patient on Trach Collar: Yes Cuff Status: Deflated Passy-[place] Valve in Place - Speech Characteristics Able to Phonate with PMV in place: Yes Voice Loudness: Mildly Soft/Quiet Voice Pitch: Normal Voice Phonatory-based Quality: Hoarse, Dysphonia Speech Clarity: < 50% Nasal Resonance: Normal Articulation: Precise Rate of Speech: Intact - Assessment with PMV in Place Change in Mental Status with PMV in Place: Yes Able to Manage Secretions: Yes Length of time with PMV in place: 20 min - Recommendations Recommendations: PMV as tolerated, Remove PMV while sleeping, Monitor Pulse Ox PMV on
[2017-10-21] MEDS: ALBUTEROL SO4 0.083% IH SOL 2.5 MG/3 ML VIAL.NEB. NEB PRN (22:01)
[2017-10-22] MEDS: METOPROLOL TARTRATE 50 MG TABLET (FP) PEG SCH ×3 (06:49→23:38)
[2017-10-22 08:50] LABS: ALBUMIN 2.8 g/dl (3.4-5.0); ANION GAP 14 (8-16); CALCIUM 9.5 mg/dL (8.5-10.1); CO2 23 mmol/L (21-32); CREATININE 2.2 mg/dL (0.7-1.3); GLUCOSE,RANDOM 119 mg/dL (74-106); SGOT/AST 36 U/L (15-37); SGPT/ALT 35 U/L (12-78)
[2017-10-22 08:52] LABS: ALK PHOS 270 U/L (45-117); BILIRUBIN,TOTAL 0.6 mg/dL (0.2-1.0); TOT PROT 8.6 g/dl (6.4-8.2)
[2017-10-22] MEDS: ALBUTEROL SO4 0.083% IH SOL 2.5 MG/3 ML VIAL.NEB. NEB PRN ×2 (10:22→22:30)
[2017-10-22] MEDS: ACETYLCYSTEINE 20% 200MG/ML 4 ML VIAL *FOR ORAL / INH USE ONLY NEB SCH ×2 (10:22→22:30)
--- NOTE | 2017-10-22 10:25 | PN ---
Progress Note, Physician Chief Complaint: Anemia, Respiratory failure, s/p Fall History of Present Illness: patient uncooperative at times pulling on his PEG and trach collar seen by Speech and swallow at risk for aspiration at this time PMV encouraged - Current Medication List Current Medications: Active Medications Acetaminophen (Tylenol Oral Solution -) 650 mg GT Q6H PRN PRN Reason: FEVER OR PAIN Acetylcysteine (Mucomyst 20 Oral / Inh Use Only*) 400 mg NEB BID [facility] Albuterol Sulfate (Ventolin 0.083% Nebulizer Soln -) 1 amp NEB Q4H PRN PRN Reason: SHORT OF BREATH/WHEEZING Last Admin: 10/21/17 22:01 Dose: 1 amp Amiodarone HCl (Cordarone -) 200 mg PEG DAILY [facility] Last Admin: 10/21/17 10:12 Dose: 200 mg Amlodipine Besylate (Norvasc -) 2.5 mg PEG DAILY [facility] Last Admin: 10/21/17 10:12 Dose: 2.5 mg Folic Acid (Folic Acid -) 1 mg GT DAILY [facility] Last Admin: 10/21/17 10:12 Dose: 1 mg Heparin Sodium (Porcine) (Heparin -) 5,000 unit SQ BID [facility] Last Admin: 10/21/17 22:27 Dose: 5,000 unit Caspofungin 50 mg/ Sodium (Chloride) 250 mls @ 250 mls/hr IV DAILY [facility] Last Admin: 10/21/17 10:13 Dose: 250 mls/hr Metoprolol Tartrate (Lopressor -) 50 mg PEG TID [facility] Last Admin: 10/22/17 06:49 Dose: 50 mg Morphine Sulfate (Morphine Sulfate) 2 mg IVPUSH Q8H PRN PRN Reason: PAIN Olanzapine (Zyprexa -) 2.5 mg PO BID [facility] Last Admin: 10/21/17 22:27 Dose: 2.5 mg Potassium Chloride (Potassium Chloride Oral Liquid) 40 meq PO DAILY [facility] Torsemide (Demadex -) 10 mg PO DAILY [facility] - Objective Vital Signs: Vital Signs Temperature 97.8 F 10/22/17 06:00 Pulse Rate 79 10/22/17 09:33 Respiratory Rate 18 10/22/17 06:00 Blood Pressure 152/94 10/22/17 06:00 O2 Sat by Pulse Oximetry (%) 98 10/22/17 09:33 Constitutional: Yes: Well Nourished, No Distress, Calm Cardiovascular: Yes: Regular Rate and Rhythm Respiratory: Yes: Rhonchi (diffuse, with trach) Musculoskeletal: Yes: WNL Extremities: Yes: WNL Edema: No Peripheral Pulses WNL: Yes Neurological: Yes: Alert, Oriented Psychiatric: Yes: Alert, Oriented Labs: CBC, BMP 10/21/17 12:46 10/22/17 08:10 INR, PTT INR 1.11 (0.82-1.09) 10/15/17 21:16 Problem List - Problems (1) Acute and chronic respiratory failure Assessment/Plan: -doing well on trach collar, although keep removing the collar -95% on room air, encouraged to keep it on for humidification- purposes Code(s): J96.20 - ACUTE AND CHR RESP FAILURE, UNSP W HYPOXIA OR HYPERCAPNIA Qualifiers: Respiratory failure complication: hypoxia and hypercapnia Qualified Code(s) : J96.21 - Acute and chronic respiratory failure with hypoxia; J96.22 - Acute and chronic respiratory failure with hypercapnia; J96.22 - Acute and chronic respiratory failure with hypercapnia; J96.22 - Acute and chronic respiratory failure with hypercapnia (2) Abuse, drug or alcohol Code(s): F19.10 - OTHER PSYCHOACTIVE SUBSTANCE ABUSE, UNCOMPLICATED (3) Anemia Assessment/Plan: -seen by Hematology -Guaiac stool x 1 negative, please guaiac all stools Code(s): D64.9 - ANEMIA, UNSPECIFIED Qualifiers: Anemia type: unspecified type Qualified Code(s): D64.9 - Anemia, unspecified (4) Paroxysmal atrial fibrillation Code(s): I48.0 - PAROXYSMAL ATRIAL FIBRILLATION (5) Fungemia Assessment/Plan: -on IV antifungal -ID on board Code(s): B49 - UNSPECIFIED MYCOSIS (6) History of alcohol abuse Code(s): Z87.898 - PERSONAL HISTORY OF OTHER SPECIFIED CONDITIONS (7) Hypernatremia Assessment/Plan: -nephrology on board Code(s): E87.0 - HYPEROSMOLALITY AND HYPERNATREMIA (8) Hypokalemia Assessment/Plan: -improved -potassium chloride daily Code(s): E87.6 - HYPOKALEMIA Assessment/Plan see problem list encouraged Physical therapy and PMV use
[2017-10-22] MEDS ORDERED: PT OWN MED DRAWER 7, Y5N ONE (10:40)
[2017-10-22] MEDS: CASPOFUNGIN ACETATE 50 MG in SODIUM CHLORIDE 250 ML IV SCH (10:44)
[2017-10-22] MEDS: POTASSIUM CHLORIDE ORAL LIQUID 20 MEQ/15 ML PO SCH (10:45)
[2017-10-22] MEDS: HEPARIN NA (PORCINE) 5,000 UNITS/ML 1ML VIAL SQ SCH ×2 (10:45→23:38)
[2017-10-22] MEDS: FOLIC ACID 1 MG TABLET (FP) GT SCH (10:45)
[2017-10-22] MEDS: OLANZapine 2.5 MG TABLET PO SCH ×2 (10:45→23:38)
[2017-10-22] MEDS: AMIODARONE HCL 200 MG TABLET (FP) PEG SCH (10:45)
[2017-10-22] MEDS: amLODIPine BESYLATE 2.5 MG TABLET (FP) PEG SCH (10:45)
[2017-10-22] MEDS: TORSEMIDE 10 MG TABLET PO SCH (10:46)
--- NOTE | 2017-10-22 11:43 | PN ---
Progress Note, Physician History of Present Illness: PULMONARY ALERT,ON TRACH COLLAR,-RESP DISTRESS - Current Medication List Current Medications: Active Medications Acetaminophen (Tylenol Oral Solution -) 650 mg GT Q6H PRN PRN Reason: FEVER OR PAIN Acetylcysteine (Mucomyst 20 Oral / Inh Use Only*) 400 mg NEB BID [facility] Last Admin: 10/22/17 10:22 Dose: 400 mg Albuterol Sulfate (Ventolin 0.083% Nebulizer Soln -) 1 amp NEB Q4H PRN PRN Reason: SHORT OF BREATH/WHEEZING Last Admin: 10/22/17 10:22 Dose: 1 amp Amiodarone HCl (Cordarone -) 200 mg PEG DAILY [facility] Last Admin: 10/22/17 10:45 Dose: 200 mg Amlodipine Besylate (Norvasc -) 2.5 mg PEG DAILY [facility] Last Admin: 10/22/17 10:45 Dose: 2.5 mg Folic Acid (Folic Acid -) 1 mg GT DAILY [facility] Last Admin: 10/22/17 10:45 Dose: 1 mg Heparin Sodium (Porcine) (Heparin -) 5,000 unit SQ BID [facility] Last Admin: 10/22/17 10:45 Dose: 5,000 unit Caspofungin 50 mg/ Sodium (Chloride) 250 mls @ 250 mls/hr IV DAILY [facility] Last Admin: 10/22/17 10:44 Dose: 250 mls/hr Metoprolol Tartrate (Lopressor -) 50 mg PEG TID [facility] Last Admin: 10/22/17 06:49 Dose: 50 mg Morphine Sulfate (Morphine Sulfate) 2 mg IVPUSH Q8H PRN PRN Reason: PAIN Olanzapine (Zyprexa -) 2.5 mg PO BID [facility] Last Admin: 10/22/17 10:45 Dose: 2.5 mg Potassium Chloride (Potassium Chloride Oral Liquid) 40 meq PO DAILY [facility] Last Admin: 10/22/17 10:45 Dose: 40 meq Torsemide (Demadex -) 10 mg PO DAILY [facility] Last Admin: 10/22/17 10:46 Dose: 10 mg - Objective Vital Signs: Vital Signs Temperature 97.8 F 10/22/17 06:00 Pulse Rate 79 10/22/17 09:33 Respiratory Rate 18 10/22/17 06:00 Blood Pressure 152/94 10/22/17 06:00 O2 Sat by Pulse Oximetry (%) 98 10/22/17 09:33 Constitutional: Yes: Well Nourished Eyes: Yes: WNL HENT: Yes: WNL Neck: Yes: Supple (TRACH) Cardiovascular: Yes: Pulse Irregular, S1, S2 Respiratory: Yes: Rhonchi (FEW RHONCHI) Gastrointestinal: Yes: Normal Bowel Sounds, Soft Extremities: Yes: WNL Edema: No Labs: CBC, BMP 10/21/17 12:46 10/22/17 08:10 INR, PTT INR 1.11 (0.82-1.09) 10/15/17 21:16 Problem List - Problems (1) Acute and chronic respiratory failure Code(s): J96.20 - ACUTE AND CHR RESP FAILURE, UNSP W HYPOXIA OR HYPERCAPNIA Qualifiers: Respiratory failure complication: hypoxia and hypercapnia Qualified Code(s) : J96.21 - Acute and chronic respiratory failure with hypoxia; J96.22 - Acute and chronic respiratory failure with hypercapnia; J96.22 - Acute and chronic respiratory failure with hypercapnia; J96.22 - Acute and chronic respiratory failure with hypercapnia (2) Agitation Code(s): R45.1 - RESTLESSNESS AND AGITATION (3) Respiratory distress Code(s): R06.03 - ACUTE RESPIRATORY DISTRESS (4) Alkaline phosphatase elevation Code(s): R74.8 - ABNORMAL LEVELS OF OTHER SERUM ENZYMES (5) Anemia Code(s): D64.9 - ANEMIA, UNSPECIFIED Qualifiers: Anemia type: unspecified type Qualified Code(s): D64.9 - Anemia, unspecified (6) History of alcohol abuse Code(s): Z87.898 - PERSONAL HISTORY OF OTHER SPECIFIED CONDITIONS (7) Paroxysmal atrial fibrillation Code(s): I48.0 - PAROXYSMAL ATRIAL FIBRILLATION (8) Pneumonia Code(s): J18.9 - PNEUMONIA, UNSPECIFIED ORGANISM Qualifiers: Pneumonia type: aspiration pneumonia (9) Respiratory failure with hypoxia Code(s): J96.91 - RESPIRATORY FAILURE, UNSPECIFIED WITH HYPOXIA Qualifiers: Chronicity: acute Qualified Code(s): J96.01 - Acute respiratory failure with hypoxia (10) Status post tracheostomy Code(s): Z93.0 - TRACHEOSTOMY STATUS Assessment/Plan A/P Vent Dependent Chronic Respiratory Failure Atrial Fibrillation with RVR Acute on Chronic Renal Failure Loculated Pleural Effusions Anemia - speaking valve - spontaneous breathing trials as tolerated - enteral feeds - DVT/GI prophylaxis - rate controlled - f/u chest x-rays DR SANTAMARIA
--- NOTE | 2017-10-22 12:29 | PN ---
Progress Note, WATER RESOURCE SPECIALIST - Note Progress Note: Undressed in bed. MBS results reviewed with staff. Continue NPO for now.
[2017-10-22 13:25] LABS: ALBUMIN 2.9 g/dl (3.4-5.0); BILIRUBIN,DIRECT 0.2 mg/dL (0.0-0.2); BILIRUBIN,TOTAL 0.5 mg/dL (0.2-1.0); TOT PROT 8.9 g/dl (6.4-8.2)
[2017-10-22] MEDS ORDERED: VANCOMYCIN 500 MG/100 ML PRE-DOCKED IVPB SCH (15:15)
--- NOTE | 2017-10-22 15:16 | PN ---
Progress Note (short form) - Note Progress Note: awake and alert talking no longer on the vent! no complaints Vital Signs Period Temp Pulse Resp BP Sys/Jeff Pulse Ox Last 24 Hr 97.4 F-98.4 F 65-92 18-18 137-152/81-98 96-98 cor-rrr lungs scattered rhonchi abd soft,nt+GT ext no edema CBC, BMP 10/21/17 12:46 10/22/17 08:10 Microbiology 10/17/17 10:05 Blood - Peripheral Venous Blood Culture - Final NO GROWTH AFTER 5 DAYS INCUBATION 10/17/17 10:05 Blood - Peripheral Venous Blood Culture - Final Yeast Like Organism 10/16/17 02:35 Blood - Peripheral Venous Blood Culture - Final NO GROWTH AFTER 5 DAYS INCUBATION 10/17/17 06:00 Sputum - Endotrachea Suction/Ventilator Gram Stain - Final 10/17/17 06:00 Sputum - Endotrachea Suction/Ventilator Sputum Culture - Final NORMAL RESPIRATORY HERBER 10/16/17 02:30 Blood - Peripheral Venous Blood Culture - Preliminary Yeast Like Organism 10/16/17 02:35 Blood - Peripheral Venous Yeast/Fungus Identification - Preliminary 10/15/17 22:45 Urine - Urine Freeman Urine Culture - Final NO GROWTH OBTAINED a/p fungemia- repeat blood cultures sent optho evaluation pending echo noted cancidas day #5 alk phos continues to trend down MSSA bacteremia/vertebral osteo T9/T10 day #46 of 56 vanco level 10.7, resume vancomycin improving renal function ?ain chronic respiratory failure-now off vent
--- NOTE | 2017-10-22 15:46 | PN ---
Progress Note, Physician History of Present Illness: Pt seen and examined at bedside. He is awake and appears comfortable. - Current Medication List Current Medications: Active Medications Acetaminophen (Tylenol Oral Solution -) 650 mg GT Q6H PRN PRN Reason: FEVER OR PAIN Acetylcysteine (Mucomyst 20 Oral / Inh Use Only*) 400 mg NEB BID [facility] Last Admin: 10/22/17 10:22 Dose: 400 mg Albuterol Sulfate (Ventolin 0.083% Nebulizer Soln -) 1 amp NEB Q4H PRN PRN Reason: SHORT OF BREATH/WHEEZING Last Admin: 10/22/17 10:22 Dose: 1 amp Amiodarone HCl (Cordarone -) 200 mg PEG DAILY [facility] Last Admin: 10/22/17 10:45 Dose: 200 mg Amlodipine Besylate (Norvasc -) 2.5 mg PEG DAILY [facility] Last Admin: 10/22/17 10:45 Dose: 2.5 mg Folic Acid (Folic Acid -) 1 mg GT DAILY [facility] Last Admin: 10/22/17 10:45 Dose: 1 mg Heparin Sodium (Porcine) (Heparin -) 5,000 unit SQ BID [facility] Last Admin: 10/22/17 10:45 Dose: 5,000 unit Caspofungin 50 mg/ Sodium (Chloride) 250 mls @ 250 mls/hr IV DAILY [facility] Last Admin: 10/22/17 10:44 Dose: 250 mls/hr Vancomycin HCl 500 mg/ (Dextrose) 100 mls @ 100 mls/hr IVPB DAILY@1600 [facility] Metoprolol Tartrate (Lopressor -) 50 mg PEG TID [facility] Last Admin: 10/22/17 14:46 Dose: 50 mg Morphine Sulfate (Morphine Sulfate) 2 mg IVPUSH Q8H PRN PRN Reason: PAIN Olanzapine (Zyprexa -) 2.5 mg PO BID [facility] Last Admin: 10/22/17 10:45 Dose: 2.5 mg Potassium Chloride (Potassium Chloride Oral Liquid) 40 meq PO DAILY [facility] Last Admin: 10/22/17 10:45 Dose: 40 meq Torsemide (Demadex -) 10 mg PO DAILY [facility] Last Admin: 10/22/17 10:46 Dose: 10 mg - Objective Vital Signs: Vital Signs Temperature 98.2 F 10/22/17 13:51 Pulse Rate 86 10/22/17 13:51 Respiratory Rate 18 10/22/17 13:51 Blood Pressure 137/88 10/22/17 13:51 O2 Sat by Pulse Oximetry (%) 98 10/22/17 09:33 Constitutional: Yes: Calm Eyes: Yes: Conjunctiva Clear HENT: Yes: Atraumatic Cardiovascular: Yes: S1, S2 Respiratory: Yes: Other (has trache) Gastrointestinal: Yes: Soft, Other (peg) Genitourinary: Yes: Incontinence Musculoskeletal: Yes: Muscle Weakness Edema: Yes Edema: LUE: Trace, RUE: Trace, LLE: Trace, RLE: Trace Neurological: Yes: Oriented Labs: CBC, BMP 10/21/17 12:46 10/22/17 08:10 INR, PTT INR 1.11 (0.82-1.09) 10/15/17 21:16 Problem List - Problems (1) Acute and chronic respiratory failure Code(s): J96.20 - ACUTE AND CHR RESP FAILURE, UNSP W HYPOXIA OR HYPERCAPNIA Qualifiers: Respiratory failure complication: hypoxia and hypercapnia Qualified Code(s) : J96.21 - Acute and chronic respiratory failure with hypoxia; J96.22 - Acute and chronic respiratory failure with hypercapnia; J96.22 - Acute and chronic respiratory failure with hypercapnia; J96.22 - Acute and chronic respiratory failure with hypercapnia (2) Agitation Code(s): R45.1 - RESTLESSNESS AND AGITATION (3) Atrial flutter by electrocardiogram Code(s): I48.92 - UNSPECIFIED ATRIAL FLUTTER (4) Respiratory distress Code(s): R06.03 - ACUTE RESPIRATORY DISTRESS (5) Acute kidney injury Code(s): N17.9 - ACUTE KIDNEY FAILURE, UNSPECIFIED (6) Anemia Code(s): D64.9 - ANEMIA, UNSPECIFIED Qualifiers: Anemia type: unspecified type Qualified Code(s): D64.9 - Anemia, unspecified Assessment/Plan Current Medications Generic Name Dose Route Start Last Admin Trade Name Freq PRN Reason Stop Dose Admin Acetaminophen 650 mg 10/19/17 03:41 Tylenol Oral Solution - GT Q6H PRN FEVER OR PAIN Acetylcysteine 400 mg 10/22/17 10:00 10/22/17 10:22 Mucomyst 20 Oral / Inh Use Only* NEB 400 mg BID [facility] Administration Albuterol Sulfate 1 amp 10/19/17 03:41 10/22/17 10:22 Ventolin 0.083% Nebulizer Soln - NEB 1 amp Q4H PRN Administration SHORT OF BREATH/WHEEZING Amiodarone HCl 200 mg 10/19/17 10:00 10/22/17 10:45 Cordarone - PEG 200 mg DAILY [facility] Administration Amlodipine Besylate 2.5 mg 10/20/17 11:15 10/22/17 10:45 Norvasc - PEG 2.5 mg DAILY [facility] Administration Folic Acid 1 mg 10/19/17 10:00 10/22/17 10:45 Folic Acid - GT 1 mg DAILY [facility] Administration Heparin Sodium (Porcine) 5,000 unit 10/19/17 10:00 10/22/17 10:45 Heparin - SQ 5,000 unit BID [facility] Administration Caspofungin 50 mg/ Sodium 250 mls @ 250 mls/hr 10/19/17 10:00 10/22/17 10:44 Chloride IV 250 mls/hr DAILY [facility] Administration Vancomycin HCl 500 mg/ 100 mls @ 100 mls/hr 10/22/17 16:00 Dextrose IVPB DAILY@1600 [facility] Metoprolol Tartrate 50 mg 10/19/17 06:00 10/22/17 14:46 Lopressor - PEG 50 mg TID [facility] Administration Morphine Sulfate 2 mg 10/19/17 03:41 Morphine Sulfate IVPUSH Q8H PRN PAIN Olanzapine 2.5 mg 10/19/17 10:00 10/22/17 10:45 Zyprexa - PO 2.5 mg BID [facility] Administration Potassium Chloride 40 meq 10/22/17 10:00 10/22/17 10:45 Potassium Chloride Oral Liquid PO 40 meq DAILY [facility] Administration Torsemide 10 mg 10/21/17 13:07 10/22/17 10:46 Demadex - PO 10 mg DAILY [facility] Administration Impression 1. ALEXANDRA 2. fluid overload 3. hypoalbuminemia 4. respiratory failure requiring intubation 5. anemia 6. etoh abuse 7. fevers 8. hypokalemia 9. pleural effusion 10. hypernatremia 11. GI bleed 12. rash 13. a flutter Plan - will increase free water with feeds - repeat labs in am - cont torsemide - trache care - monitor hg - monitor pulse ox Dr Peres
[2017-10-22] MEDS: VANCOMYCIN 500 MG in DEXTROSE 5%-WATER - 100 ML IVPB SCH (17:48)
--- NOTE | 2017-10-22 21:30 | PN ---
Progress Note, Physician Chief Complaint: Currently on trache collar Awake and responsive History of Present Illness: Patient was seen and examined. Awake. Chart was reviewed Denies chest pain or palpitations - Current Medication List Current Medications: Active Medications Acetaminophen (Tylenol Oral Solution -) 650 mg GT Q6H PRN PRN Reason: FEVER OR PAIN Acetylcysteine (Mucomyst 20 Oral / Inh Use Only*) 400 mg NEB BID [facility] Last Admin: 10/22/17 10:22 Dose: 400 mg Albuterol Sulfate (Ventolin 0.083% Nebulizer Soln -) 1 amp NEB Q4H PRN PRN Reason: SHORT OF BREATH/WHEEZING Last Admin: 10/22/17 10:22 Dose: 1 amp Amiodarone HCl (Cordarone -) 200 mg PEG DAILY [facility] Last Admin: 10/22/17 10:45 Dose: 200 mg Amlodipine Besylate (Norvasc -) 2.5 mg PEG DAILY [facility] Last Admin: 10/22/17 10:45 Dose: 2.5 mg Folic Acid (Folic Acid -) 1 mg GT DAILY [facility] Last Admin: 10/22/17 10:45 Dose: 1 mg Heparin Sodium (Porcine) (Heparin -) 5,000 unit SQ BID [facility] Last Admin: 10/22/17 10:45 Dose: 5,000 unit Caspofungin 50 mg/ Sodium (Chloride) 250 mls @ 250 mls/hr IV DAILY [facility] Last Admin: 10/22/17 10:44 Dose: 250 mls/hr Vancomycin HCl 500 mg/ (Dextrose) 100 mls @ 100 mls/hr IVPB DAILY@1600 [facility] Last Admin: 10/22/17 17:48 Dose: 100 mls/hr Metoprolol Tartrate (Lopressor -) 50 mg PEG TID [facility] Last Admin: 10/22/17 14:46 Dose: 50 mg Morphine Sulfate (Morphine Sulfate) 2 mg IVPUSH Q8H PRN PRN Reason: PAIN Olanzapine (Zyprexa -) 2.5 mg PO BID [facility] Last Admin: 10/22/17 10:45 Dose: 2.5 mg Potassium Chloride (Potassium Chloride Oral Liquid) 40 meq PO DAILY [facility] Last Admin: 10/22/17 10:45 Dose: 40 meq Torsemide (Demadex -) 10 mg PO DAILY [facility] Last Admin: 10/22/17 10:46 Dose: 10 mg - Objective Vital Signs: Vital Signs Temperature 97.3 F L 10/22/17 19:00 Pulse Rate 81 10/22/17 19:00 Respiratory Rate 18 10/22/17 19:00 Blood Pressure 143/88 10/22/17 19:00 O2 Sat by Pulse Oximetry (%) 98 10/22/17 09:33 Eyes: Yes: PERRL Neck: Yes: Supple Cardiovascular: Yes: Regular Rate and Rhythm, S1, S2 Respiratory: Yes: Diminished, Other (Trache collar) Gastrointestinal: Yes: Normal Bowel Sounds, Soft, Other (PEG) Edema: No Labs: CBC, BMP 10/21/17 12:46 10/22/17 08:10 Problem List - Problems (1) Acute and chronic respiratory failure Code(s): J96.20 - ACUTE AND CHR RESP FAILURE, UNSP W HYPOXIA OR HYPERCAPNIA Qualifiers: Respiratory failure complication: hypoxia and hypercapnia Qualified Code(s) : J96.21 - Acute and chronic respiratory failure with hypoxia; J96.22 - Acute and chronic respiratory failure with hypercapnia; J96.22 - Acute and chronic respiratory failure with hypercapnia; J96.22 - Acute and chronic respiratory failure with hypercapnia (2) Atrial flutter by electrocardiogram Code(s): I48.92 - UNSPECIFIED ATRIAL FLUTTER (3) Fungemia Code(s): B49 - UNSPECIFIED MYCOSIS (4) Respiratory distress Code(s): R06.03 - ACUTE RESPIRATORY DISTRESS (5) Anemia Code(s): D64.9 - ANEMIA, UNSPECIFIED Qualifiers: Anemia type: unspecified type Qualified Code(s): D64.9 - Anemia, unspecified (6) Discitis of cervicothoracic region Code(s): M46.43 - DISCITIS, UNSPECIFIED, CERVICOTHORACIC REGION (7) History of alcohol abuse Code(s): Z87.898 - PERSONAL HISTORY OF OTHER SPECIFIED CONDITIONS (8) Status post insertion of percutaneous endoscopic gastrostomy (PEG) tube Code(s): Z93.1 - GASTROSTOMY STATUS (9) Status post tracheostomy Code(s): Z93.0 - TRACHEOSTOMY STATUS (10) Withdrawal symptoms, alcohol Code(s): F10.239 - ALCOHOL DEPENDENCE WITH WITHDRAWAL, UNSPECIFIED Qualifiers: Complication of substance-induced condition: uncomplicated Qualified Code(s ): F10.230 - Alcohol dependence with withdrawal, uncomplicated Assessment/Plan 1. Fungemia vs. colonization 2. 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 Blackwell. 3. History of acute hypoxic respiratory failure, post tracheotomy 4. History of cavitating pneumonia, MSSA bacteremia, post septic shock no evidence of endocarditis by ALISA criteria 5. History of diastolic LV dysfunction with class I-II NYHA congestive heart failure, compensated/euvolemic 6. History of osteomyelitis T9-T10 discitis 7. History of loculated pleural effusion post chest tube insertion 8. History of alcohol dependence 9. Acute renal insufficiency 10. Anemia 11. Hypokalemia 12. Hypernatremia PLAN: 1. Continue Lopressor via PEG 2. Continue Amiodarone via PEG 3. Continue Norvasc 4. Defer longterm A/C considering his presentation and co-morbidities 5. Consider transfusion to maintain Hgb equal or > 8.0 6. Monitor electrolytes 7. Antifungal as per ID service Further plans are to follow Jordon Gtz MD
[2017-10-23 00:08] LABS: A/G RATIO 0.6 (0.7-1.7); ALBUMIN 2.8 g/dL (2.9-4.4); ALPHA-1-GLOBULIN 0.5 g/dL (0.0-0.4); BETA GLOBULIN 1.3 g/dL (0.7-1.3); GAMMA GLOBULIN 2.1 g/dL (0.4-1.8); GLOBULIN, TOTAL 5.2 g/dL (2.2-3.9); M-SPIKE Not Observed g/dL (Not Observed)
[2017-10-23] MEDS: METOPROLOL TARTRATE 50 MG TABLET (FP) PEG SCH ×3 (07:02→22:53)
[2017-10-23] MEDS: ACETYLCYSTEINE 20% 200MG/ML 4 ML VIAL *FOR ORAL / INH USE ONLY NEB SCH ×2 (10:35→22:45)
[2017-10-23] MEDS: ALBUTEROL SO4 0.083% IH SOL 2.5 MG/3 ML VIAL.NEB. NEB PRN (10:35)
[2017-10-23] MEDS ORDERED: PT OWN MED DRAWER 7, Y5N ONE (11:28)
[2017-10-23] MEDS: POTASSIUM CHLORIDE ORAL LIQUID 20 MEQ/15 ML PO SCH (11:32)
[2017-10-23] MEDS: amLODIPine BESYLATE 2.5 MG TABLET (FP) PEG SCH (11:33)
[2017-10-23] MEDS: TORSEMIDE 10 MG TABLET PO SCH (11:33)
[2017-10-23] MEDS: OLANZapine 2.5 MG TABLET PO SCH ×2 (11:33→22:53)
[2017-10-23] MEDS: AMIODARONE HCL 200 MG TABLET (FP) PEG SCH (11:33)
[2017-10-23] MEDS: FOLIC ACID 1 MG TABLET (FP) GT SCH (11:33)
[2017-10-23] MEDS: HEPARIN NA (PORCINE) 5,000 UNITS/ML 1ML VIAL SQ SCH ×2 (11:34→22:53)
[2017-10-23] MEDS: CASPOFUNGIN ACETATE 50 MG in SODIUM CHLORIDE 250 ML IV SCH (11:34)
--- NOTE | 2017-10-23 12:13 | PN ---
Progress Note, Physician History of Present Illness: PULMONARY ALERT,NO DISTRESS,-TACHYPNEA - Current Medication List Current Medications: Active Medications Acetaminophen (Tylenol Oral Solution -) 650 mg GT Q6H PRN PRN Reason: FEVER OR PAIN Acetylcysteine (Mucomyst 20 Oral / Inh Use Only*) 400 mg NEB BID [facility] Last Admin: 10/23/17 10:35 Dose: 400 mg Albuterol Sulfate (Ventolin 0.083% Nebulizer Soln -) 1 amp NEB Q4H PRN PRN Reason: SHORT OF BREATH/WHEEZING Last Admin: 10/23/17 10:35 Dose: 1 amp Amiodarone HCl (Cordarone -) 200 mg PEG DAILY [facility] Last Admin: 10/23/17 11:33 Dose: 200 mg Amlodipine Besylate (Norvasc -) 2.5 mg PEG DAILY [facility] Last Admin: 10/23/17 11:33 Dose: 2.5 mg Folic Acid (Folic Acid -) 1 mg GT DAILY [facility] Last Admin: 10/23/17 11:33 Dose: 1 mg Heparin Sodium (Porcine) (Heparin -) 5,000 unit SQ BID [facility] Last Admin: 10/23/17 11:34 Dose: 5,000 unit Caspofungin 50 mg/ Sodium (Chloride) 250 mls @ 250 mls/hr IV DAILY [facility] Last Admin: 10/23/17 11:34 Dose: 250 mls/hr Vancomycin HCl 500 mg/ (Dextrose) 100 mls @ 100 mls/hr IVPB DAILY@1600 [facility] Last Admin: 10/22/17 17:48 Dose: 100 mls/hr Metoprolol Tartrate (Lopressor -) 50 mg PEG TID [facility] Last Admin: 10/23/17 07:02 Dose: 50 mg Morphine Sulfate (Morphine Sulfate) 2 mg IVPUSH Q8H PRN PRN Reason: PAIN Olanzapine (Zyprexa -) 2.5 mg PO BID [facility] Last Admin: 10/23/17 11:33 Dose: 2.5 mg Potassium Chloride (Potassium Chloride Oral Liquid) 40 meq PO DAILY [facility] Last Admin: 10/23/17 11:32 Dose: 40 meq Torsemide (Demadex -) 10 mg PO DAILY [facility] Last Admin: 10/23/17 11:33 Dose: 10 mg - Objective Vital Signs: Vital Signs Temperature 98.3 F 10/23/17 10:00 Pulse Rate 83 10/23/17 10:54 Respiratory Rate 18 10/23/17 10:00 Blood Pressure 148/86 10/23/17 10:00 O2 Sat by Pulse Oximetry (%) 98 10/23/17 10:54 Constitutional: Yes: Well Nourished, Calm Eyes: Yes: WNL HENT: Yes: WNL Neck: Yes: Supple (TRACH) Cardiovascular: Yes: Pulse Irregular, S1, S2 Respiratory: Yes: Diminished, Rhonchi (FEW RHONCHI) Gastrointestinal: Yes: Normal Bowel Sounds, Soft, Other (+GT) Extremities: Yes: WNL Edema: No Labs: CBC, BMP Problem List - Problems (1) Acute and chronic respiratory failure Code(s): J96.20 - ACUTE AND CHR RESP FAILURE, UNSP W HYPOXIA OR HYPERCAPNIA Qualifiers: Respiratory failure complication: hypoxia and hypercapnia Qualified Code(s) : J96.21 - Acute and chronic respiratory failure with hypoxia; J96.22 - Acute and chronic respiratory failure with hypercapnia; J96.22 - Acute and chronic respiratory failure with hypercapnia; J96.22 - Acute and chronic respiratory failure with hypercapnia (2) Agitation Code(s): R45.1 - RESTLESSNESS AND AGITATION (3) Respiratory distress Code(s): R06.03 - ACUTE RESPIRATORY DISTRESS (4) Alkaline phosphatase elevation Code(s): R74.8 - ABNORMAL LEVELS OF OTHER SERUM ENZYMES (5) Anemia Code(s): D64.9 - ANEMIA, UNSPECIFIED Qualifiers: Anemia type: unspecified type Qualified Code(s): D64.9 - Anemia, unspecified (6) History of alcohol abuse Code(s): Z87.898 - PERSONAL HISTORY OF OTHER SPECIFIED CONDITIONS (7) Paroxysmal atrial fibrillation Code(s): I48.0 - PAROXYSMAL ATRIAL FIBRILLATION (8) Pneumonia Code(s): J18.9 - PNEUMONIA, UNSPECIFIED ORGANISM Qualifiers: Pneumonia type: aspiration pneumonia (9) Respiratory failure with hypoxia Code(s): J96.91 - RESPIRATORY FAILURE, UNSPECIFIED WITH HYPOXIA Qualifiers: Chronicity: acute Qualified Code(s): J96.01 - Acute respiratory failure with hypoxia (10) Status post tracheostomy Code(s): Z93.0 - TRACHEOSTOMY STATUS Assessment/Plan A/P Vent Dependent Chronic Respiratory Failure Atrial Fibrillation with RVR Acute on Chronic Renal Failure Loculated Pleural Effusions Anemia - speaking valve - spontaneous breathing trials as tolerated - enteral feeds - DVT/GI prophylaxis - rate controlled - f/u chest x-rays DR SANTAMARIA
--- NOTE | 2017-10-23 12:36 | PN ---
Progress Note, DIRECTOR OF SCOUT WORK - Note Progress Note: Alert, confused. Respiration is comfortable. Suggest daily PMV with oxymeter to monitor o2 saturation to enable pt to communicate, improve upper airway function, sensation, swallowing function. Selected Entries 10/22/17 10/22/17 10/22/17 00:00 06:00 12:00 Breakfast Temperature 98.2 F 97.8 F 98.4 F 10/22/17 10/22/17 10/22/17 13:51 19:00 22:00 Breakfast Temperature 98.2 F 97.3 F L 98.0 F 10/23/17 10/23/17 10/23/17 02:00 06:00 10:00 Breakfast NPO Temperature 97.8 F 97.4 F L 98.3 F Laboratory Tests 10/20/17 10/21/17 06:37 11:55 WBC 9.1 11.7 H
--- NOTE | 2017-10-23 13:44 | PN ---
Progress Note, Physician History of Present Illness: Pt seen and examined at bedside. He appears comfortable. - Current Medication List Current Medications: Active Medications Acetaminophen (Tylenol Oral Solution -) 650 mg GT Q6H PRN PRN Reason: FEVER OR PAIN Acetylcysteine (Mucomyst 20 Oral / Inh Use Only*) 400 mg NEB BID [facility] Last Admin: 10/23/17 10:35 Dose: 400 mg Albuterol Sulfate (Ventolin 0.083% Nebulizer Soln -) 1 amp NEB Q4H PRN PRN Reason: SHORT OF BREATH/WHEEZING Last Admin: 10/23/17 10:35 Dose: 1 amp Amiodarone HCl (Cordarone -) 200 mg PEG DAILY [facility] Last Admin: 10/23/17 11:33 Dose: 200 mg Amlodipine Besylate (Norvasc -) 2.5 mg PEG DAILY [facility] Last Admin: 10/23/17 11:33 Dose: 2.5 mg Folic Acid (Folic Acid -) 1 mg GT DAILY [facility] Last Admin: 10/23/17 11:33 Dose: 1 mg Heparin Sodium (Porcine) (Heparin -) 5,000 unit SQ BID [facility] Last Admin: 10/23/17 11:34 Dose: 5,000 unit Caspofungin 50 mg/ Sodium (Chloride) 250 mls @ 250 mls/hr IV DAILY [facility] Last Admin: 10/23/17 11:34 Dose: 250 mls/hr Vancomycin HCl 500 mg/ (Dextrose) 100 mls @ 100 mls/hr IVPB DAILY@1600 [facility] Last Admin: 10/22/17 17:48 Dose: 100 mls/hr Metoprolol Tartrate (Lopressor -) 50 mg PEG TID [facility] Last Admin: 10/23/17 07:02 Dose: 50 mg Morphine Sulfate (Morphine Sulfate) 2 mg IVPUSH Q8H PRN PRN Reason: PAIN Olanzapine (Zyprexa -) 2.5 mg PO BID [facility] Last Admin: 10/23/17 11:33 Dose: 2.5 mg Potassium Chloride (Potassium Chloride Oral Liquid) 40 meq PO DAILY [facility] Last Admin: 10/23/17 11:32 Dose: 40 meq Torsemide (Demadex -) 10 mg PO DAILY [facility] Last Admin: 10/23/17 11:33 Dose: 10 mg - Objective Vital Signs: Vital Signs Temperature 98.3 F 10/23/17 10:00 Pulse Rate 83 10/23/17 10:54 Respiratory Rate 18 10/23/17 10:00 Blood Pressure 148/86 10/23/17 10:00 O2 Sat by Pulse Oximetry (%) 98 10/23/17 10:54 Constitutional: Yes: Calm Eyes: Yes: Conjunctiva Clear Neck: Yes: Other (trache) Cardiovascular: Yes: S1, S2 Respiratory: Yes: Other (has trache) Gastrointestinal: Yes: Soft, Other (peg) Genitourinary: Yes: Incontinence Edema: No Neurological: Yes: Oriented Labs: CBC, BMP 10/21/17 12:46 10/22/17 08:10 INR, PTT INR 1.11 (0.82-1.09) 10/15/17 21:16 Problem List - Problems (1) Acute and chronic respiratory failure Code(s): J96.20 - ACUTE AND CHR RESP FAILURE, UNSP W HYPOXIA OR HYPERCAPNIA Qualifiers: Respiratory failure complication: hypoxia and hypercapnia Qualified Code(s) : J96.21 - Acute and chronic respiratory failure with hypoxia; J96.22 - Acute and chronic respiratory failure with hypercapnia; J96.22 - Acute and chronic respiratory failure with hypercapnia; J96.22 - Acute and chronic respiratory failure with hypercapnia (2) Agitation Code(s): R45.1 - RESTLESSNESS AND AGITATION (3) Atrial flutter by electrocardiogram Code(s): I48.92 - UNSPECIFIED ATRIAL FLUTTER (4) Respiratory distress Code(s): R06.03 - ACUTE RESPIRATORY DISTRESS (5) Acute kidney injury Code(s): N17.9 - ACUTE KIDNEY FAILURE, UNSPECIFIED (6) Anemia Code(s): D64.9 - ANEMIA, UNSPECIFIED Qualifiers: Anemia type: unspecified type Qualified Code(s): D64.9 - Anemia, unspecified Assessment/Plan Current Medications Generic Name Dose Route Start Last Admin Trade Name Freq PRN Reason Stop Dose Admin Acetaminophen 650 mg 10/19/17 03:41 Tylenol Oral Solution - GT Q6H PRN FEVER OR PAIN Acetylcysteine 400 mg 10/22/17 10:00 10/23/17 10:35 Mucomyst 20 Oral / Inh Use Only* NEB 400 mg BID [facility] Administration Albuterol Sulfate 1 amp 10/19/17 03:41 10/23/17 10:35 Ventolin 0.083% Nebulizer Soln - NEB 1 amp Q4H PRN Administration SHORT OF BREATH/WHEEZING Amiodarone HCl 200 mg 10/19/17 10:00 10/23/17 11:33 Cordarone - PEG 200 mg DAILY [facility] Administration Amlodipine Besylate 2.5 mg 10/20/17 11:15 10/23/17 11:33 Norvasc - PEG 2.5 mg DAILY [facility] Administration Folic Acid 1 mg 10/19/17 10:00 10/23/17 11:33 Folic Acid - GT 1 mg DAILY [facility] Administration Heparin Sodium (Porcine) 5,000 unit 10/19/17 10:00 10/23/17 11:34 Heparin - SQ 5,000 unit BID [facility] Administration Caspofungin 50 mg/ Sodium 250 mls @ 250 mls/hr 10/19/17 10:00 10/23/17 11:34 Chloride IV 250 mls/hr DAILY [facility] Administration Vancomycin HCl 500 mg/ 100 mls @ 100 mls/hr 10/22/17 16:00 10/22/17 17:48 Dextrose IVPB 100 mls/hr DAILY@1600 [facility] Administration Metoprolol Tartrate 50 mg 10/19/17 06:00 10/23/17 07:02 Lopressor - PEG 50 mg TID [facility] Administration Morphine Sulfate 2 mg 10/19/17 03:41 Morphine Sulfate IVPUSH Q8H PRN PAIN Olanzapine 2.5 mg 10/19/17 10:00 10/23/17 11:33 Zyprexa - PO 2.5 mg BID [facility] Administration Potassium Chloride 40 meq 10/22/17 10:00 10/23/17 11:32 Potassium Chloride Oral Liquid PO 40 meq DAILY [facility] Administration Torsemide 10 mg 10/21/17 13:07 10/23/17 11:33 Demadex - PO 10 mg DAILY [facility] Administration Impression 1. ALEXANDRA 2. fluid overload 3. hypoalbuminemia 4. respiratory failure requiring intubation 5. anemia 6. etoh abuse 7. fevers 8. hypokalemia 9. pleural effusion 10. hypernatremia 11. GI bleed 12. rash 13. a flutter Plan - cont with feeds - check bmp - cont current meds for now - will adjust torsemide tomorrow if needed - trache care - monitor hg - monitor pulse ox Dr Peres
--- NOTE | 2017-10-23 15:18 | PN ---
Progress Note, Physician History of Present Illness: Comfortable off vent on trach collar. - Current Medication List Current Medications: Active Medications Acetaminophen (Tylenol Oral Solution -) 650 mg GT Q6H PRN PRN Reason: FEVER OR PAIN Acetylcysteine (Mucomyst 20 Oral / Inh Use Only*) 400 mg NEB BID [facility] Last Admin: 10/23/17 10:35 Dose: 400 mg Albuterol Sulfate (Ventolin 0.083% Nebulizer Soln -) 1 amp NEB Q4H PRN PRN Reason: SHORT OF BREATH/WHEEZING Last Admin: 10/23/17 10:35 Dose: 1 amp Amiodarone HCl (Cordarone -) 200 mg PEG DAILY [facility] Last Admin: 10/23/17 11:33 Dose: 200 mg Amlodipine Besylate (Norvasc -) 2.5 mg PEG DAILY [facility] Last Admin: 10/23/17 11:33 Dose: 2.5 mg Folic Acid (Folic Acid -) 1 mg GT DAILY [facility] Last Admin: 10/23/17 11:33 Dose: 1 mg Heparin Sodium (Porcine) (Heparin -) 5,000 unit SQ BID [facility] Last Admin: 10/23/17 11:34 Dose: 5,000 unit Caspofungin 50 mg/ Sodium (Chloride) 250 mls @ 250 mls/hr IV DAILY [facility] Last Admin: 10/23/17 11:34 Dose: 250 mls/hr Vancomycin HCl 500 mg/ (Dextrose) 100 mls @ 100 mls/hr IVPB DAILY@1600 [facility] Last Admin: 10/22/17 17:48 Dose: 100 mls/hr Metoprolol Tartrate (Lopressor -) 50 mg PEG TID [facility] Last Admin: 10/23/17 13:52 Dose: 50 mg Morphine Sulfate (Morphine Sulfate) 2 mg IVPUSH Q8H PRN PRN Reason: PAIN Olanzapine (Zyprexa -) 2.5 mg PO BID [facility] Last Admin: 10/23/17 11:33 Dose: 2.5 mg Potassium Chloride (Potassium Chloride Oral Liquid) 40 meq PO DAILY [facility] Last Admin: 10/23/17 11:32 Dose: 40 meq Torsemide (Demadex -) 10 mg PO DAILY [facility] Last Admin: 10/23/17 11:33 Dose: 10 mg - Objective Vital Signs: Vital Signs Temperature 97.9 F 10/23/17 13:56 Pulse Rate 87 10/23/17 13:56 Respiratory Rate 18 10/23/17 10:00 Blood Pressure 126/80 10/23/17 13:56 O2 Sat by Pulse Oximetry (%) 98 10/23/17 10:54 Constitutional: Yes: No Distress, Calm HENT: Yes: Other (Trach) Neck: Yes: Supple Cardiovascular: Yes: Regular Rate and Rhythm Respiratory: Yes: Regular, Diminished Gastrointestinal: Yes: Normal Bowel Sounds, Soft, Other (PEG) Edema: No Labs: CBC, BMP 10/21/17 12:46 10/22/17 08:10 INR, PTT INR 1.11 (0.82-1.09) 10/15/17 21:16 Problem List - Problems (1) Acute and chronic respiratory failure Code(s): J96.20 - ACUTE AND CHR RESP FAILURE, UNSP W HYPOXIA OR HYPERCAPNIA Qualifiers: Respiratory failure complication: hypoxia and hypercapnia Qualified Code(s) : J96.21 - Acute and chronic respiratory failure with hypoxia; J96.22 - Acute and chronic respiratory failure with hypercapnia; J96.22 - Acute and chronic respiratory failure with hypercapnia; J96.22 - Acute and chronic respiratory failure with hypercapnia (2) Agitation Code(s): R45.1 - RESTLESSNESS AND AGITATION (3) Acute kidney injury Code(s): N17.9 - ACUTE KIDNEY FAILURE, UNSPECIFIED (4) Alkaline phosphatase elevation Code(s): R74.8 - ABNORMAL LEVELS OF OTHER SERUM ENZYMES (5) Anemia Code(s): D64.9 - ANEMIA, UNSPECIFIED Qualifiers: Anemia type: unspecified type Qualified Code(s): D64.9 - Anemia, unspecified (6) Paroxysmal atrial fibrillation Code(s): I48.0 - PAROXYSMAL ATRIAL FIBRILLATION (7) Status post insertion of percutaneous endoscopic gastrostomy (PEG) tube Code(s): Z93.1 - GASTROSTOMY STATUS (8) Status post tracheostomy Code(s): Z93.0 - TRACHEOSTOMY STATUS (9) Acute diastolic heart failure Code(s): I50.31 - ACUTE DIASTOLIC (CONGESTIVE) HEART FAILURE (10) Fungemia Code(s): B49 - UNSPECIFIED MYCOSIS Assessment/Plan 1. Fungemia 2. Paroxysmal atrial fibrillation [id number] score of 2, likely not an ideal candidate for [facility] anticoagulation with explanation by Dr. Blackwell. 3. Chronic respiratory failure, post tracheotomy 4. History of cavitating pneumonia, MSSA bacteremia, post septic shock no evidence of endocarditis by ALISA criteria 5. History of diastolic LV dysfunction with class I-II NYHA congestive heart failure, compensated/euvolemic 6. History of osteomyelitis T9-T10 discitis 7. History of loculated pleural effusion post chest tube insertion 8. History of alcohol dependence 9. Acute renal insufficiency 10. Anemia 11. Hypokalemia 12. Hypernatremia PLAN: 1. Continue Lopressor 50 tid via PEG 2. Continue Amiodarone 200 qd via PEG 3. Continue Norvasc 2.5 qd and Demadex 10 qd 4. 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 Consider transfusion to maintain Hgb equal or > 8.0 6. Monitor electrolytes, PMV as tolerated, enteral feeds, DVT and GI prophylaxis 7. Antifungal and abx course as per ID service with monitor surveillance cx
--- NOTE | 2017-10-23 15:33 | PN ---
Progress Note, Physician Chief Complaint: Anemia, Respiratory failure, s/p Fall History of Present Illness: patient uncooperative at times pulling on his PEG and trach collar seen by Speech and swallow at risk for aspiration at this time asking for something to drink PMV encouraged -seen by ID -on IV abx and antifungal -awaiting ophthalmology consult by Dr Friedman - Current Medication List Current Medications: Active Medications Acetaminophen (Tylenol Oral Solution -) 650 mg GT Q6H PRN PRN Reason: FEVER OR PAIN Acetylcysteine (Mucomyst 20 Oral / Inh Use Only*) 400 mg NEB BID [facility] Last Admin: 10/23/17 10:35 Dose: 400 mg Albuterol Sulfate (Ventolin 0.083% Nebulizer Soln -) 1 amp NEB Q4H PRN PRN Reason: SHORT OF BREATH/WHEEZING Last Admin: 10/23/17 10:35 Dose: 1 amp Amiodarone HCl (Cordarone -) 200 mg PEG DAILY [facility] Last Admin: 10/23/17 11:33 Dose: 200 mg Amlodipine Besylate (Norvasc -) 2.5 mg PEG DAILY [facility] Last Admin: 10/23/17 11:33 Dose: 2.5 mg Folic Acid (Folic Acid -) 1 mg GT DAILY [facility] Last Admin: 10/23/17 11:33 Dose: 1 mg Heparin Sodium (Porcine) (Heparin -) 5,000 unit SQ BID [facility] Last Admin: 10/23/17 11:34 Dose: 5,000 unit Caspofungin 50 mg/ Sodium (Chloride) 250 mls @ 250 mls/hr IV DAILY [facility] Last Admin: 10/23/17 11:34 Dose: 250 mls/hr Vancomycin HCl 500 mg/ (Dextrose) 100 mls @ 100 mls/hr IVPB DAILY@1600 [facility] Last Admin: 10/22/17 17:48 Dose: 100 mls/hr Metoprolol Tartrate (Lopressor -) 50 mg PEG TID [facility] Last Admin: 10/23/17 13:52 Dose: 50 mg Morphine Sulfate (Morphine Sulfate) 2 mg IVPUSH Q8H PRN PRN Reason: PAIN Olanzapine (Zyprexa -) 2.5 mg PO BID [facility] Last Admin: 10/23/17 11:33 Dose: 2.5 mg Potassium Chloride (Potassium Chloride Oral Liquid) 40 meq PO DAILY [facility] Last Admin: 10/23/17 11:32 Dose: 40 meq Torsemide (Demadex -) 10 mg PO DAILY [facility] Last Admin: 10/23/17 11:33 Dose: 10 mg - Objective Vital Signs: Vital Signs Temperature 97.9 F 10/23/17 13:56 Pulse Rate 87 10/23/17 13:56 Respiratory Rate 18 10/23/17 10:00 Blood Pressure 126/80 10/23/17 13:56 O2 Sat by Pulse Oximetry (%) 98 10/23/17 10:54 Constitutional: Yes: Well Nourished, No Distress, Calm Cardiovascular: Yes: Regular Rate and Rhythm Respiratory: Yes: Regular, Rhonchi Gastrointestinal: Yes: Normal Bowel Sounds Musculoskeletal: Yes: WNL Extremities: Yes: WNL Edema: No Peripheral Pulses WNL: Yes Neurological: Yes: Alert Psychiatric: Yes: Alert Labs: CBC, BMP 10/21/17 12:46 10/22/17 08:10 INR, PTT INR 1.11 (0.82-1.09) 10/15/17 21:16 Problem List - Problems (1) Acute and chronic respiratory failure Assessment/Plan: -doing well on trach collar, although keep removing the collar -95% on room air, encouraged to keep it on for humidification- purposes Code(s): J96.20 - ACUTE AND CHR RESP FAILURE, UNSP W HYPOXIA OR HYPERCAPNIA Qualifiers: Respiratory failure complication: hypoxia and hypercapnia Qualified Code(s) : J96.21 - Acute and chronic respiratory failure with hypoxia; J96.22 - Acute and chronic respiratory failure with hypercapnia; J96.22 - Acute and chronic respiratory failure with hypercapnia; J96.22 - Acute and chronic respiratory failure with hypercapnia (2) Abuse, drug or alcohol Code(s): F19.10 - OTHER PSYCHOACTIVE SUBSTANCE ABUSE, UNCOMPLICATED (3) Anemia Assessment/Plan: -seen by Hematology -Guaiac stool x 1 negative, please guaiac all stools -h/h stable -repeat labs in AM Code(s): D64.9 - ANEMIA, UNSPECIFIED Qualifiers: Anemia type: unspecified type Qualified Code(s): D64.9 - Anemia, unspecified (4) Paroxysmal atrial fibrillation Code(s): I48.0 - PAROXYSMAL ATRIAL FIBRILLATION (5) Fungemia Assessment/Plan: -on IV antifungal -ID on board Code(s): B49 - UNSPECIFIED MYCOSIS (6) History of alcohol abuse Code(s): Z87.898 - PERSONAL HISTORY OF OTHER SPECIFIED CONDITIONS (7) Hypernatremia Assessment/Plan: -nephrology on board Code(s): E87.0 - HYPEROSMOLALITY AND HYPERNATREMIA (8) Hypokalemia Assessment/Plan: -improved -potassium chloride daily Code(s): E87.6 - HYPOKALEMIA Assessment/Plan see problem list encouraged Physical therapy and PMV use
--- NOTE | 2017-10-23 15:53 | PN ---
Progress Note (short form) - Note Progress Note: awake and alert talking moist cough NPO Vital Signs Period Temp Pulse Resp BP Sys/Jeff Pulse Ox Last 24 Hr 97.3 F-98.3 F 78-94 18-18 126-159/80-97 98-98 cor-rrr lungs bilateral rhonchi abd- soft,+GT ext no edema CBC, BMP 10/21/17 12:46 10/22/17 08:10 Microbiology 10/16/17 02:35 Blood - Peripheral Venous Yeast/Fungus Identification - Final Mary Glabrata 10/21/17 18:00 Blood - Peripheral Venous Blood Culture - Preliminary NO GROWTH OBTAINED AFTER 24 HOURS, INCUBATION TO CONTINUE FOR 4 DAYS. 10/21/17 18:00 Blood - Peripheral Venous Blood Culture - Preliminary NO GROWTH OBTAINED AFTER 24 HOURS, INCUBATION TO CONTINUE FOR 4 DAYS. 10/17/17 10:05 Blood - Peripheral Venous Blood Culture - Final NO GROWTH AFTER 5 DAYS INCUBATION 10/17/17 10:05 Blood - Peripheral Venous Blood Culture - Final Yeast Like Organism 10/16/17 02:35 Blood - Peripheral Venous Blood Culture - Final NO GROWTH AFTER 5 DAYS INCUBATION 10/17/17 06:00 Sputum - Endotrachea Suction/Ventilator Gram Stain - Final 10/17/17 06:00 Sputum - Endotrachea Suction/Ventilator Sputum Culture - Final NORMAL RESPIRATORY HERBER 10/16/17 02:30 Blood - Peripheral Venous Blood Culture - Preliminary Yeast Like Organism 10/15/17 22:45 Urine - Urine Freeman Urine Culture - Final NO GROWTH OBTAINED a/p fungemia- repeat blood cultures pending optho evaluation pending echo noted cancidas day #6 alk phos continues to trend down MSSA bacteremia/vertebral osteo T9/T10 day #47 of 56 vanco level before dose tomorrow improving renal function ?ain chronic respiratory failure-now off vent
[2017-10-23] MEDS: VANCOMYCIN 500 MG in DEXTROSE 5%-WATER - 100 ML IVPB SCH (16:43)
[2017-10-24] MEDS: METOPROLOL TARTRATE 50 MG TABLET (FP) PEG SCH ×3 (07:13→22:38)
[2017-10-24 07:41] LABS: BASO % 0.8 % (0-2.0); EOS % 3.6 % (0-4.5); MCH 29.5 pg (25.7-33.7); MCHC 33.2 g/dl (32.0-35.9); MEAN CELL VOLUME 88.7 fl (80-96); MEAN PLT VOLUME 7.2 fl (7.5-11.1); PLATELET COUNT 339 K/MM3 (134-434); RDW 17.6 % (11.9-15.9); WHITE BLOOD COUNT 11.7 K/mm3 (4.0-10.0)
[2017-10-24 07:59] LABS: ALBUMIN 3.1 g/dl (3.4-5.0); ANION GAP 12 (8-16); CALCIUM 9.7 mg/dL (8.5-10.1); CO2 26 mmol/L (21-32); GLUCOSE,RANDOM 107 mg/dL (74-106)
[2017-10-24 08:03] LABS: ALK PHOS 217 U/L (45-117); BILIRUBIN,TOTAL 0.5 mg/dL (0.2-1.0); CREATININE 2.3 mg/dL (0.7-1.3); SGOT/AST 32 U/L (15-37); SGPT/ALT 32 U/L (12-78); TOT PROT 9.1 g/dl (6.4-8.2)
[2017-10-24] MEDS ORDERED: ALBUTEROL SO4 0.083% IH SOL 2.5 MG/3 ML VIAL.NEB. NEB ONE (09:10)
[2017-10-24] MEDS: ALBUTEROL SO4 0.083% IH SOL 2.5 MG/3 ML VIAL.NEB. NEB PRN ×2 (09:33→21:20)
[2017-10-24] MEDS: ACETYLCYSTEINE 20% 200MG/ML 4 ML VIAL *FOR ORAL / INH USE ONLY NEB SCH ×2 (09:33→21:20)
[2017-10-24] MEDS ORDERED: PT OWN MED DRAWER 7, Y5N ONE (10:38)
--- NOTE | 2017-10-24 11:20 | PN ---
Progress Note (short form) - Note Progress Note: Awake and alert. Comfortable on Trach collar. Voice is strong. No CP or SOB. No acute events overnight. Intake & Output 10/21/17 10/22/17 10/23/17 10/24/17 23:59 23:59 23:59 23:59 Intake Total 2590 250 2600 1200 Output Total 600 300 Balance 2590 -350 2300 1200 Last Vital Signs Temp Pulse Resp BP Pulse Ox 98.6 F 80 18 155/86 96 10/24/17 10:04 10/24/17 10:04 10/24/17 10:04 10/24/17 10:04 10/24/17 07:53 Active Medications Acetaminophen (Tylenol Oral Solution -) 650 mg GT Q6H PRN PRN Reason: FEVER OR PAIN Acetylcysteine (Mucomyst 20 Oral / Inh Use Only*) 400 mg NEB BID [facility] Last Admin: 10/24/17 09:33 Dose: 400 mg Albuterol Sulfate (Ventolin 0.083% Nebulizer Soln -) 1 amp NEB Q4H PRN PRN Reason: SHORT OF BREATH/WHEEZING Last Admin: 10/24/17 09:33 Dose: 1 amp Amiodarone HCl (Cordarone -) 200 mg PEG DAILY [facility] Last Admin: 10/23/17 11:33 Dose: 200 mg Amlodipine Besylate (Norvasc -) 2.5 mg PEG DAILY [facility] Last Admin: 10/23/17 11:33 Dose: 2.5 mg Folic Acid (Folic Acid -) 1 mg GT DAILY [facility] Last Admin: 10/23/17 11:33 Dose: 1 mg Heparin Sodium (Porcine) (Heparin -) 5,000 unit SQ BID [facility] Last Admin: 10/23/17 22:53 Dose: 5,000 unit Caspofungin 50 mg/ Sodium (Chloride) 250 mls @ 250 mls/hr IV DAILY [facility] Last Admin: 10/23/17 11:34 Dose: 250 mls/hr Vancomycin HCl 500 mg/ (Dextrose) 100 mls @ 100 mls/hr IVPB DAILY@1600 [facility] Last Admin: 10/23/17 16:43 Dose: 100 mls/hr Metoprolol Tartrate (Lopressor -) 50 mg PEG TID [facility] Last Admin: 10/24/17 07:13 Dose: 50 mg Morphine Sulfate (Morphine Sulfate) 2 mg IVPUSH Q8H PRN PRN Reason: PAIN Last Admin: 10/23/17 22:53 Dose: 2 mg Olanzapine (Zyprexa -) 2.5 mg PO BID [facility] Last Admin: 10/23/17 22:53 Dose: 2.5 mg Potassium Chloride (Potassium Chloride Oral Liquid) 40 meq PO DAILY [facility] Last Admin: 10/23/17 11:32 Dose: 40 meq Torsemide (Demadex -) 10 mg PO DAILY [facility] Last Admin: 10/23/17 11:33 Dose: 10 mg Constitutional: Yes: NAD Eyes: Yes: WNL HENT: Yes: WNL Neck: Yes: Supple (trach) Cardiovascular: Yes: Pulse Irregular, S1 Respiratory: Yes: Few scattered Rhonchi Gastrointestinal: Yes: Normal Bowel Sounds, Soft Extremities: Yes: WNL Edema: No Labs: Laboratory Results - last 24 hr 10/24/17 10/24/17 07:05 07:05 WBC 11.7 H RBC 3.38 L Hgb 10.0 L Hct 30.0 L MCV 88.7 MCH 29.5 MCHC 33.2 RDW 17.6 H Plt Count 339 MPV 7.2 L Neutrophils % 73.0 Lymphocytes % 14.1 Monocytes % 8.5 Eosinophils % 3.6 Basophils % 0.8 Sodium 147 H Potassium 4.0 Chloride 109 H Carbon Dioxide 26 Anion Gap 12 BUN 75 H Creatinine 2.3 H Creat Clearance w eGFR 28.42 Random Glucose 107 H Calcium 9.7 Total Bilirubin 0.5 AST 32 ALT 32 Alkaline Phosphatase 217 H Total Protein 9.1 H Albumin 3.1 L Problem List - Problems (1) Acute and chronic respiratory failure Code(s): J96.20 - ACUTE AND CHR RESP FAILURE, UNSP W HYPOXIA OR HYPERCAPNIA Qualifiers: Respiratory failure complication: hypoxia and hypercapnia Qualified Code(s) : J96.21 - Acute and chronic respiratory failure with hypoxia; J96.22 - Acute and chronic respiratory failure with hypercapnia; J96.22 - Acute and chronic respiratory failure with hypercapnia; J96.22 - Acute and chronic respiratory failure with hypercapnia (2) Agitation Code(s): R45.1 - RESTLESSNESS AND AGITATION (3) Respiratory distress Code(s): R06.03 - ACUTE RESPIRATORY DISTRESS (4) Alkaline phosphatase elevation Code(s): R74.8 - ABNORMAL LEVELS OF OTHER SERUM ENZYMES (5) Anemia Code(s): D64.9 - ANEMIA, UNSPECIFIED Qualifiers: Anemia type: unspecified type Qualified Code(s): D64.9 - Anemia, unspecified (6) History of alcohol abuse Code(s): Z87.898 - PERSONAL HISTORY OF OTHER SPECIFIED CONDITIONS (7) Paroxysmal atrial fibrillation Code(s): I48.0 - PAROXYSMAL ATRIAL FIBRILLATION (8) Pneumonia Code(s): J18.9 - PNEUMONIA, UNSPECIFIED ORGANISM Qualifiers: Pneumonia type: aspiration pneumonia (9) Respiratory failure with hypoxia Code(s): J96.91 - RESPIRATORY FAILURE, UNSPECIFIED WITH HYPOXIA Qualifiers: Chronicity: acute Qualified Code(s): J96.01 - Acute respiratory failure with hypoxia (10) Status post tracheostomy Code(s): Z93.0 - TRACHEOSTOMY STATUS Assessment/Plan A/P Vent Dependent Chronic Respiratory Failure Atrial Fibrillation with RVR Acute on Chronic Renal Failure Loculated Pleural Effusions Anemia - PMV as tolerated - Trach collar O2 - DVT prophylaxis - D/C planning Dr Griffin
--- NOTE | 2017-10-24 11:24 | PN ---
Progress Note, Physician Chief Complaint: Currently on trache collar Awake History of Present Illness: Patient was seen and examined. Awake. Chart was reviewed Denies chest pain or palpitations - Current Medication List Current Medications: Active Medications Acetaminophen (Tylenol Oral Solution -) 650 mg GT Q6H PRN PRN Reason: FEVER OR PAIN Acetylcysteine (Mucomyst 20 Oral / Inh Use Only*) 400 mg NEB BID [facility] Last Admin: 10/24/17 09:33 Dose: 400 mg Albuterol Sulfate (Ventolin 0.083% Nebulizer Soln -) 1 amp NEB Q4H PRN PRN Reason: SHORT OF BREATH/WHEEZING Last Admin: 10/24/17 09:33 Dose: 1 amp Amiodarone HCl (Cordarone -) 200 mg PEG DAILY [facility] Last Admin: 10/23/17 11:33 Dose: 200 mg Amlodipine Besylate (Norvasc -) 2.5 mg PEG DAILY [facility] Last Admin: 10/23/17 11:33 Dose: 2.5 mg Folic Acid (Folic Acid -) 1 mg GT DAILY [facility] Last Admin: 10/23/17 11:33 Dose: 1 mg Heparin Sodium (Porcine) (Heparin -) 5,000 unit SQ BID [facility] Last Admin: 10/23/17 22:53 Dose: 5,000 unit Caspofungin 50 mg/ Sodium (Chloride) 250 mls @ 250 mls/hr IV DAILY [facility] Last Admin: 10/23/17 11:34 Dose: 250 mls/hr Vancomycin HCl 500 mg/ (Dextrose) 100 mls @ 100 mls/hr IVPB DAILY@1600 [facility] Last Admin: 10/23/17 16:43 Dose: 100 mls/hr Metoprolol Tartrate (Lopressor -) 50 mg PEG TID [facility] Last Admin: 10/24/17 07:13 Dose: 50 mg Morphine Sulfate (Morphine Sulfate) 2 mg IVPUSH Q8H PRN PRN Reason: PAIN Last Admin: 10/23/17 22:53 Dose: 2 mg Olanzapine (Zyprexa -) 2.5 mg PO BID [facility] Last Admin: 10/23/17 22:53 Dose: 2.5 mg Potassium Chloride (Potassium Chloride Oral Liquid) 40 meq PO DAILY [facility] Last Admin: 10/23/17 11:32 Dose: 40 meq Torsemide (Demadex -) 10 mg PO DAILY [facility] Last Admin: 10/23/17 11:33 Dose: 10 mg - Objective Vital Signs: Vital Signs Temperature 98.6 F 10/24/17 10:04 Pulse Rate 80 10/24/17 10:04 Respiratory Rate 18 10/24/17 10:04 Blood Pressure 155/86 10/24/17 10:04 O2 Sat by Pulse Oximetry (%) 96 10/24/17 07:53 Eyes: Yes: PERRL Neck: Yes: Supple Cardiovascular: Yes: Regular Rate and Rhythm, S1, S2 Respiratory: Yes: Diminished Gastrointestinal: Yes: Normal Bowel Sounds, Soft. No: Tenderness Edema: No Labs: CBC, BMP 10/24/17 07:05 10/24/17 07:05 Problem List - Problems (1) Acute and chronic respiratory failure Code(s): J96.20 - ACUTE AND CHR RESP FAILURE, UNSP W HYPOXIA OR HYPERCAPNIA Qualifiers: Respiratory failure complication: hypoxia and hypercapnia Qualified Code(s) : J96.21 - Acute and chronic respiratory failure with hypoxia; J96.22 - Acute and chronic respiratory failure with hypercapnia; J96.22 - Acute and chronic respiratory failure with hypercapnia; J96.22 - Acute and chronic respiratory failure with hypercapnia (2) Fungemia Code(s): B49 - UNSPECIFIED MYCOSIS (3) Abuse, drug or alcohol Code(s): F19.10 - OTHER PSYCHOACTIVE SUBSTANCE ABUSE, UNCOMPLICATED (4) Acute diastolic heart failure Code(s): I50.31 - ACUTE DIASTOLIC (CONGESTIVE) HEART FAILURE (5) Acute kidney injury Code(s): N17.9 - ACUTE KIDNEY FAILURE, UNSPECIFIED (6) Anemia Code(s): D64.9 - ANEMIA, UNSPECIFIED Qualifiers: Anemia type: unspecified type Qualified Code(s): D64.9 - Anemia, unspecified (7) History of alcohol abuse Code(s): Z87.898 - PERSONAL HISTORY OF OTHER SPECIFIED CONDITIONS (8) Hypernatremia Code(s): E87.0 - HYPEROSMOLALITY AND HYPERNATREMIA (9) Hypokalemia Code(s): E87.6 - HYPOKALEMIA (10) Paroxysmal atrial fibrillation Code(s): I48.0 - PAROXYSMAL ATRIAL FIBRILLATION (11) Pneumonia Code(s): J18.9 - PNEUMONIA, UNSPECIFIED ORGANISM Qualifiers: Pneumonia type: aspiration pneumonia (12) Respiratory failure with hypoxia Code(s): J96.91 - RESPIRATORY FAILURE, UNSPECIFIED WITH HYPOXIA Qualifiers: Chronicity: acute Qualified Code(s): J96.01 - Acute respiratory failure with hypoxia (13) Status post tracheostomy Code(s): Z93.0 - TRACHEOSTOMY STATUS (14) Thrombocytopenia Code(s): D69.6 - THROMBOCYTOPENIA, UNSPECIFIED (15) Withdrawal symptoms, alcohol Code(s): F10.239 - ALCOHOL DEPENDENCE WITH WITHDRAWAL, UNSPECIFIED Qualifiers: Complication of substance-induced condition: uncomplicated Qualified Code(s ): F10.230 - Alcohol dependence with withdrawal, uncomplicated Assessment/Plan 1. Fungemia vs. colonization 2. Paroxysmal atrial fibrillation [id number] score of 2, likely not an ideal candidate for prison anticoagulation with explanation by Dr. Blackwell. 3. History of acute hypoxic respiratory failure, post tracheotomy 4. History of cavitating pneumonia, MSSA bacteremia, post septic shock no evidence of endocarditis by ALISA criteria 5. History of diastolic LV dysfunction with class I-II NYHA congestive heart failure, compensated/euvolemic 6. History of osteomyelitis T9-T10 discitis 7. History of loculated pleural effusion post chest tube insertion 8. History of alcohol dependence 9. Acute renal insufficiency 10. Anemia 11. Hypokalemia 12. Hypernatremia PLAN: 1. Continue Lopressor via PEG 2. Continue Amiodarone via PEG 3. Continue Norvasc 4. Defer prison A/C considering his presentation and co-morbidities 5. Consider transfusion to maintain Hgb equal or > 8.0 6. Monitor electrolytes and renal function 7. Antifungal and antibiotic as per ID service Further plans are to follow Jordon Gtz MD
--- NOTE | 2017-10-24 11:42 | EKG ---
Test Reason : Blood Pressure : / mmHG Vent. Rate : 097 BPM Atrial Rate : 097 BPM P-R Int : 176 ms QRS Dur : 084 ms QT Int : 374 ms P-R-T Axes : 059 002 037 degrees QTc Int : 474 ms NORMAL SINUS RHYTHM WITH SINUS ARRHYTHMIA NORMAL ECG WHEN COMPARED WITH ECG OF 08-OCT-2017 11:35, NONSPECIFIC T WAVE ABNORMALITY, IMPROVED IN LATERAL LEADS Confirmed by DIA EMERY, LEXIE ([id number]) on 10/24/2017 11:42:08 AM Referred By: Confirmed By:LEXIE ALVARES MD
[2017-10-24] MEDS: CASPOFUNGIN ACETATE 50 MG in SODIUM CHLORIDE 250 ML IV SCH (11:46)
[2017-10-24] MEDS: HEPARIN NA (PORCINE) 5,000 UNITS/ML 1ML VIAL SQ SCH ×2 (11:47→22:38)
[2017-10-24] MEDS: AMIODARONE HCL 200 MG TABLET (FP) PEG SCH (11:47)
[2017-10-24] MEDS: FOLIC ACID 1 MG TABLET (FP) GT SCH (11:47)
[2017-10-24] MEDS: amLODIPine BESYLATE 2.5 MG TABLET (FP) PEG SCH (11:47)
[2017-10-24] MEDS: POTASSIUM CHLORIDE ORAL LIQUID 20 MEQ/15 ML PO SCH (11:47)
[2017-10-24] MEDS: OLANZapine 2.5 MG TABLET PO SCH ×2 (11:48→22:38)
[2017-10-24] MEDS: TORSEMIDE 10 MG TABLET PO SCH (11:48)
--- NOTE | 2017-10-24 12:28 | PN ---
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 Respiration is comfortable. Suggest daily PMV with oxymeter to monitor o2 saturation to enable pt to communicate, improve upper airway function, sensation, swallowing function. Pending discharge to alf. Continue speech/swallowing tx to improve upper airway function. Repeat MBS once PMV used consistently to r/o silent aspiration and initiate PO trials, if indicated.
--- NOTE | 2017-10-24 13:17 | PN ---
Progress Note, Physician Chief Complaint: ID Nearing completion of his Vanco treatment Cancidas for yeast in the blood culture - Current Medication List Current Medications: Active Medications Acetaminophen (Tylenol Oral Solution -) 650 mg GT Q6H PRN PRN Reason: FEVER OR PAIN Acetylcysteine (Mucomyst 20 Oral / Inh Use Only*) 400 mg NEB BID [facility] Last Admin: 10/24/17 09:33 Dose: 400 mg Albuterol Sulfate (Ventolin 0.083% Nebulizer Soln -) 1 amp NEB Q4H PRN PRN Reason: SHORT OF BREATH/WHEEZING Last Admin: 10/24/17 09:33 Dose: 1 amp Amiodarone HCl (Cordarone -) 200 mg PEG DAILY [facility] Last Admin: 10/24/17 11:47 Dose: 200 mg Amlodipine Besylate (Norvasc -) 2.5 mg PEG DAILY [facility] Last Admin: 10/24/17 11:47 Dose: 2.5 mg Folic Acid (Folic Acid -) 1 mg GT DAILY [facility] Last Admin: 10/24/17 11:47 Dose: 1 mg Heparin Sodium (Porcine) (Heparin -) 5,000 unit SQ BID [facility] Last Admin: 10/24/17 11:47 Dose: 5,000 unit Caspofungin 50 mg/ Sodium (Chloride) 250 mls @ 250 mls/hr IV DAILY [facility] Last Admin: 10/24/17 11:46 Dose: 250 mls/hr Vancomycin HCl 500 mg/ (Dextrose) 100 mls @ 100 mls/hr IVPB DAILY@1600 [facility] Last Admin: 10/23/17 16:43 Dose: 100 mls/hr Metoprolol Tartrate (Lopressor -) 50 mg PEG TID [facility] Last Admin: 10/24/17 07:13 Dose: 50 mg Olanzapine (Zyprexa -) 2.5 mg PO BID [facility] Last Admin: 10/24/17 11:48 Dose: 2.5 mg Potassium Chloride (Potassium Chloride Oral Liquid) 40 meq PO DAILY [facility] Last Admin: 10/24/17 11:47 Dose: 40 meq Torsemide (Demadex -) 10 mg PO DAILY [facility] Last Admin: 10/24/17 11:48 Dose: 10 mg - Objective Vital Signs: Vital Signs Temperature 98.6 F 10/24/17 10:04 Pulse Rate 80 10/24/17 10:04 Respiratory Rate 18 10/24/17 10:04 Blood Pressure 155/86 10/24/17 10:04 O2 Sat by Pulse Oximetry (%) 96 10/24/17 07:53 HENT: Yes: Other (Trach) Cardiovascular: Yes: S1, S2. No: Murmur Respiratory: Yes: WNL, Regular, CTA Bilaterally, Rhonchi Gastrointestinal: Yes: Soft, Other (GT). No: Tenderness Edema: No Labs: CBC, BMP 10/24/17 07:05 10/24/17 07:05 INR, PTT INR 1.11 (0.82-1.09) 10/15/17 21:16 Assessment/Plan Laboratory Tests 10/21/17 10/24/17 10/24/17 18:00 07:05 07:05 WBC 11.7 H Hgb 10.0 L Hct 30.0 L Plt Count 339 BUN 75 H Creatinine 2.3 H Creat Clearance w eGFR 28.42 Random Vancomycin 10.778 Microbiology 10/17/17 10:05 Blood - Peripheral Venous Blood Culture - Final Yeast Like Organism 10/17/17 10:05 Blood - Peripheral Venous Blood Culture - Final NO GROWTH AFTER 5 DAYS INCUBATION 10/16/17 02:35 Blood - Peripheral Venous Yeast/Fungus Identification - Final Mary Glabrata 10/21/17 18:00 Blood - Peripheral Venous Blood Culture - Preliminary NO GROWTH OBTAINED AFTER 48 HOURS, INCUBATION TO CONTINUE FOR 3 DAYS. 10/21/17 18:00 Blood - Peripheral Venous Blood Culture - Preliminary NO GROWTH OBTAINED AFTER 48 HOURS, INCUBATION TO CONTINUE FOR 3 DAYS. 10/16/17 02:30 Blood - Peripheral Venous Blood Culture - Preliminary Yeast Like Organism Assessment 1.Mary Glabrata in the blood cultures 10/16 & This is real and possibly fluconazole resistant so good that on Caspofungin NO vegetations on the valve seen Day 7 of therapy 2. MRSA bacteremia on Vanomcyin nearing end of cource day 48 of planned 56 3. Respiratory failure 4. Alcohol history 5. Vertebral osteomyelitis CRP way down now Plan 1. Complete caspofungin another 7 days 2. vanco will soon end 3. Check Vanco level 4. Optho previously advised Esau EMERY
[2017-10-24] MEDS ORDERED: FLU VACCINE QUAD 60 MCG/0.5 ML (MDV 17-18) IM ONE ×2 (13:18→14:45)
--- NOTE | 2017-10-24 13:53 | PN ---
Progress Note, Physician History of Present Illness: Pt seen and examined at bedside. He is awake and appears comfortable. - Current Medication List Current Medications: Active Medications Acetaminophen (Tylenol Oral Solution -) 650 mg GT Q6H PRN PRN Reason: FEVER OR PAIN Acetylcysteine (Mucomyst 20 Oral / Inh Use Only*) 400 mg NEB BID [facility] Last Admin: 10/24/17 09:33 Dose: 400 mg Albuterol Sulfate (Ventolin 0.083% Nebulizer Soln -) 1 amp NEB Q4H PRN PRN Reason: SHORT OF BREATH/WHEEZING Last Admin: 10/24/17 09:33 Dose: 1 amp Amiodarone HCl (Cordarone -) 200 mg PEG DAILY [facility] Last Admin: 10/24/17 11:47 Dose: 200 mg Amlodipine Besylate (Norvasc -) 2.5 mg PEG DAILY [facility] Last Admin: 10/24/17 11:47 Dose: 2.5 mg Folic Acid (Folic Acid -) 1 mg GT DAILY [facility] Last Admin: 10/24/17 11:47 Dose: 1 mg Heparin Sodium (Porcine) (Heparin -) 5,000 unit SQ BID [facility] Last Admin: 10/24/17 11:47 Dose: 5,000 unit Caspofungin 50 mg/ Sodium (Chloride) 250 mls @ 250 mls/hr IV DAILY [facility] Last Admin: 10/24/17 11:46 Dose: 250 mls/hr Vancomycin HCl 500 mg/ (Dextrose) 100 mls @ 100 mls/hr IVPB DAILY@1600 [facility] Last Admin: 10/23/17 16:43 Dose: 100 mls/hr Influenza Virus Vaccine Quadrival (Flulaval Quad [id number]) 60 mcg IM .ONCE ONE Stop: 10/24/17 13:19 Metoprolol Tartrate (Lopressor -) 50 mg PEG TID [facility] Last Admin: 10/24/17 07:13 Dose: 50 mg Olanzapine (Zyprexa -) 2.5 mg PO BID [facility] Last Admin: 10/24/17 11:48 Dose: 2.5 mg Pneumococcal 13-Valent Conj Vacc (Prevnar 13 Syringe -) 0.5 ml IM .ONCE ONE Stop: 10/24/17 13:19 Potassium Chloride (Potassium Chloride Oral Liquid) 40 meq PO DAILY [facility] Last Admin: 10/24/17 11:47 Dose: 40 meq Torsemide (Demadex -) 10 mg PO DAILY [facility] Last Admin: 10/24/17 11:48 Dose: 10 mg - Objective Vital Signs: Vital Signs Temperature 98.6 F 10/24/17 10:04 Pulse Rate 80 10/24/17 10:04 Respiratory Rate 18 10/24/17 10:04 Blood Pressure 155/86 10/24/17 10:04 O2 Sat by Pulse Oximetry (%) 96 10/24/17 07:53 Constitutional: Yes: Calm Eyes: Yes: Conjunctiva Clear HENT: Yes: Atraumatic Neck: Yes: Supple Cardiovascular: Yes: S1, S2 Respiratory: Yes: Other (trache) Gastrointestinal: Yes: Soft, Other (peg) Musculoskeletal: Yes: Muscle Weakness Edema: No Neurological: Yes: Oriented Labs: CBC, BMP 10/24/17 07:05 10/24/17 07:05 INR, PTT INR 1.11 (0.82-1.09) 10/15/17 21:16 Problem List - Problems (1) Acute and chronic respiratory failure Code(s): J96.20 - ACUTE AND CHR RESP FAILURE, UNSP W HYPOXIA OR HYPERCAPNIA Qualifiers: Respiratory failure complication: hypoxia and hypercapnia Qualified Code(s) : J96.21 - Acute and chronic respiratory failure with hypoxia; J96.22 - Acute and chronic respiratory failure with hypercapnia; J96.22 - Acute and chronic respiratory failure with hypercapnia; J96.22 - Acute and chronic respiratory failure with hypercapnia (2) Agitation Code(s): R45.1 - RESTLESSNESS AND AGITATION (3) Atrial flutter by electrocardiogram Code(s): I48.92 - UNSPECIFIED ATRIAL FLUTTER (4) Respiratory distress Code(s): R06.03 - ACUTE RESPIRATORY DISTRESS (5) Acute kidney injury Code(s): N17.9 - ACUTE KIDNEY FAILURE, UNSPECIFIED (6) Anemia Code(s): D64.9 - ANEMIA, UNSPECIFIED Qualifiers: Anemia type: unspecified type Qualified Code(s): D64.9 - Anemia, unspecified Assessment/Plan Current Medications Generic Name Dose Route Start Last Admin Trade Name Freq PRN Reason Stop Dose Admin Acetaminophen 650 mg 10/19/17 03:41 Tylenol Oral Solution - GT Q6H PRN FEVER OR PAIN Acetylcysteine 400 mg 10/22/17 10:00 10/24/17 09:33 Mucomyst 20 Oral / Inh Use Only* NEB 400 mg BID [facility] Administration Albuterol Sulfate 1 amp 10/24/17 09:32 10/24/17 09:33 Ventolin 0.083% Nebulizer Soln - NEB 1 amp Q4H PRN Administration SHORT OF BREATH/WHEEZING Amiodarone HCl 200 mg 10/19/17 10:00 10/24/17 11:47 Cordarone - PEG 200 mg DAILY [facility] Administration Amlodipine Besylate 2.5 mg 10/20/17 11:15 10/24/17 11:47 Norvasc - PEG 2.5 mg DAILY [facility] Administration Folic Acid 1 mg 10/19/17 10:00 10/24/17 11:47 Folic Acid - GT 1 mg DAILY [facility] Administration Heparin Sodium (Porcine) 5,000 unit 10/19/17 10:00 10/24/17 11:47 Heparin - SQ 5,000 unit BID [facility] Administration Caspofungin 50 mg/ Sodium 250 mls @ 250 mls/hr 10/19/17 10:00 10/24/17 11:46 Chloride IV 250 mls/hr DAILY [facility] Administration Vancomycin HCl 500 mg/ 100 mls @ 100 mls/hr 10/22/17 16:00 10/23/17 16:43 Dextrose IVPB 100 mls/hr DAILY@1600 [facility] Administration Influenza Virus Vaccine Quadrival 60 mcg 10/24/17 13:18 Flulaval Quad [id number] IM 10/24/17 13:19 .ONCE ONE Metoprolol Tartrate 50 mg 10/19/17 06:00 10/24/17 07:13 Lopressor - PEG 50 mg TID [facility] Administration Olanzapine 2.5 mg 10/19/17 10:00 10/24/17 11:48 Zyprexa - PO 2.5 mg BID [facility] Administration Pneumococcal 13-Valent Conj Vacc 0.5 ml 10/24/17 13:18 Prevnar 13 Syringe - IM 10/24/17 13:19 .ONCE ONE Potassium Chloride 40 meq 10/22/17 10:00 10/24/17 11:47 Potassium Chloride Oral Liquid PO 40 meq DAILY [facility] Administration Torsemide 10 mg 10/21/17 13:07 10/24/17 11:48 Demadex - PO 10 mg DAILY [facility] Administration Impression 1. ALEXANDRA 2. fluid overload 3. hypoalbuminemia 4. respiratory failure requiring intubation 5. anemia 6. etoh abuse 7. fevers 8. hypokalemia 9. pleural effusion 10. hypernatremia 11. GI bleed 12. rash 13. a flutter Plan - will increase free water further - cont torsemide at 10 - check cxr - check bmp in am - cont current meds for now - trache care - monitor hg - monitor pulse ox Dr Peres
--- NOTE | 2017-10-24 14:33 | PN ---
Progress Note, Physician Chief Complaint: patient seen and examined awake alert on the med/surg floor on trach collar talking - Current Medication List Current Medications: Active Medications Acetaminophen (Tylenol Oral Solution -) 650 mg GT Q6H PRN PRN Reason: FEVER OR PAIN Acetylcysteine (Mucomyst 20 Oral / Inh Use Only*) 400 mg NEB BID [facility] Last Admin: 10/24/17 09:33 Dose: 400 mg Albuterol Sulfate (Ventolin 0.083% Nebulizer Soln -) 1 amp NEB Q4H PRN PRN Reason: SHORT OF BREATH/WHEEZING Last Admin: 10/24/17 09:33 Dose: 1 amp Amiodarone HCl (Cordarone -) 200 mg PEG DAILY [facility] Last Admin: 10/24/17 11:47 Dose: 200 mg Amlodipine Besylate (Norvasc -) 2.5 mg PEG DAILY [facility] Last Admin: 10/24/17 11:47 Dose: 2.5 mg Folic Acid (Folic Acid -) 1 mg GT DAILY [facility] Last Admin: 10/24/17 11:47 Dose: 1 mg Heparin Sodium (Porcine) (Heparin -) 5,000 unit SQ BID [facility] Last Admin: 10/24/17 11:47 Dose: 5,000 unit Caspofungin 50 mg/ Sodium (Chloride) 250 mls @ 250 mls/hr IV DAILY [facility] Last Admin: 10/24/17 11:46 Dose: 250 mls/hr Vancomycin HCl 500 mg/ (Dextrose) 100 mls @ 100 mls/hr IVPB DAILY@1600 [facility] Last Admin: 10/23/17 16:43 Dose: 100 mls/hr Influenza Virus Vaccine Quadrival (Flulaval Quad [id number]) 60 mcg IM .ONCE ONE Stop: 10/24/17 13:19 Metoprolol Tartrate (Lopressor -) 50 mg PEG TID [facility] Last Admin: 10/24/17 07:13 Dose: 50 mg Olanzapine (Zyprexa -) 2.5 mg PO BID [facility] Last Admin: 10/24/17 11:48 Dose: 2.5 mg Pneumococcal 13-Valent Conj Vacc (Prevnar 13 Syringe -) 0.5 ml IM .ONCE ONE Stop: 10/24/17 13:19 Potassium Chloride (Potassium Chloride Oral Liquid) 40 meq PO DAILY [facility] Last Admin: 10/24/17 11:47 Dose: 40 meq Torsemide (Demadex -) 10 mg PO DAILY [facility] Last Admin: 10/24/17 11:48 Dose: 10 mg - Objective Vital Signs: Vital Signs Temperature 98.6 F 10/24/17 10:04 Pulse Rate 80 10/24/17 10:04 Respiratory Rate 18 10/24/17 10:04 Blood Pressure 155/86 10/24/17 10:04 O2 Sat by Pulse Oximetry (%) 96 10/24/17 07:53 Constitutional: Yes: Calm HENT: Yes: Other (trach collar) Cardiovascular: Yes: Pulse Irregular, S1, S2 Respiratory: Yes: CTA Bilaterally, Other (trach collar) Gastrointestinal: Yes: Normal Bowel Sounds, Soft, Other (peg) Edema: No Neurological: Yes: Alert, Oriented Labs: CBC, BMP 10/24/17 07:05 10/24/17 07:05 INR, PTT INR 1.11 (0.82-1.09) 10/15/17 21:16 Problem List - Problems (1) Acute and chronic respiratory failure Assessment/Plan: on med surg floor on trach collar bronchodilator as needed rafa rolf on the base paussy holly valve as tolerated repeat MBS swallow test once patient consistently uses PMV Code(s): J96.20 - ACUTE AND CHR RESP FAILURE, UNSP W HYPOXIA OR HYPERCAPNIA Qualifiers: Respiratory failure complication: hypoxia and hypercapnia Qualified Code(s) : J96.21 - Acute and chronic respiratory failure with hypoxia; J96.22 - Acute and chronic respiratory failure with hypercapnia; J96.22 - Acute and chronic respiratory failure with hypercapnia; J96.22 - Acute and chronic respiratory failure with hypercapnia (2) Paroxysmal atrial fibrillation Assessment/Plan: continue amiodarone and metoprolol Code(s): I48.0 - PAROXYSMAL ATRIAL FIBRILLATION (3) Staphylococcus aureus bacteremia Assessment/Plan: on iv vancomycin for bacteremia with osteomylitis day 48 of 56 Code(s): R78.81 - BACTEREMIA (4) Fungemia Assessment/Plan: caspofungin optho eval pending- viviane call again echo Code(s): B49 - UNSPECIFIED MYCOSIS (5) Acute kidney injury Assessment/Plan: renal is on board on torsemide renal is on board Code(s): N17.9 - ACUTE KIDNEY FAILURE, UNSPECIFIED (6) Anemia Assessment/Plan: monitor h/h off AC given anemia transfuse if Hgb<8 Code(s): D64.9 - ANEMIA, UNSPECIFIED Qualifiers: Anemia type: unspecified type Qualified Code(s): D64.9 - Anemia, unspecified
[2017-10-24] MEDS ORDERED: PNEUMOC 13-VAL CONJ-DIP CRM/PF 0.5 ML DISP.SYRIN IM ONE (14:45)
--- NOTE | 2017-10-24 15:02 | CONS ---
DATE OF CONSULTATION: 10/23/[address] Meza, regarding this patient who has a diagnosis of fungal septicemia. Patient has an ocular history of bilateral corneal abrasions from a cat injury. He is, however, a poor historian and is currently the [facility]. After reviewing the chart completely, the following are significant findings. Visual acuity appears good at approximately 20/70 in both eyes at near without correction. Patient states he does have correction at home. External exam was within normal limits. Intraocular pressure is finger tension normal in both eyes. Patient would not allow for measurement. Ductions and versions are full. He is orthophoric. Cranial nerves 3, 5, and 7 are intact. Anterior segment reveals conjunctiva clear. Anterior chamber deep, clear, well formed. Pupils round and reactive, equal in both eyes without afferent pupillary defect. Media is clear. Funduscopic exam shows a clear retina exam without evidence of fungal infection or hemorrhages or exudates throughout the fundus. The optic nerve does not show papilledema or papillitis, and there is no vitreous hemorrhage or vitreous debris. The assessment of this patient is for no evidence of acute ocular disease or acute vitreous infection. No evidence of endophthalmitis in either eye at this time and no evidence that his current condition is affecting his eyes in any way. If his condition deteriorates during his hospital stay or he complains of visual acuity changes, please feel free to contact me for a re-consult at your convenience. Best regards, KAYLAH LERMA M.D. [id number]
[2017-10-24] MEDS: VANCOMYCIN 500 MG in DEXTROSE 5%-WATER - 100 ML IVPB SCH (20:45)
[2017-10-25] MEDS: ALBUTEROL SO4 0.083% IH SOL 2.5 MG/3 ML VIAL.NEB. NEB PRN ×4 (03:00→22:50)
[2017-10-25] MEDS: METOPROLOL TARTRATE 50 MG TABLET (FP) PEG SCH ×3 (06:31→23:01)
[2017-10-25 08:49] LABS: ANION GAP 12 (8-16); CALCIUM 9.2 mg/dL (8.5-10.1); CO2 24 mmol/L (21-32); CREATININE 2.1 mg/dL (0.7-1.3); GLUCOSE,RANDOM 116 mg/dL (74-106)
--- NOTE | 2017-10-25 08:58 | PN ---
Progress Note, Physician - Current Medication List Current Medications: Active Medications Acetaminophen (Tylenol Oral Solution -) 650 mg GT Q6H PRN PRN Reason: FEVER OR PAIN Acetylcysteine (Mucomyst 20 Oral / Inh Use Only*) 400 mg NEB BID [facility] Last Admin: 10/24/17 21:20 Dose: 400 mg Albuterol Sulfate (Ventolin 0.083% Nebulizer Soln -) 1 amp NEB Q4H PRN PRN Reason: SHORT OF BREATH/WHEEZING Last Admin: 10/25/17 06:30 Dose: 1 amp Amiodarone HCl (Cordarone -) 200 mg PEG DAILY [facility] Last Admin: 10/24/17 11:47 Dose: 200 mg Amlodipine Besylate (Norvasc -) 2.5 mg PEG DAILY [facility] Last Admin: 10/24/17 11:47 Dose: 2.5 mg Folic Acid (Folic Acid -) 1 mg GT DAILY [facility] Last Admin: 10/24/17 11:47 Dose: 1 mg Heparin Sodium (Porcine) (Heparin -) 5,000 unit SQ BID [facility] Last Admin: 10/24/17 22:38 Dose: 5,000 unit Caspofungin 50 mg/ Sodium (Chloride) 250 mls @ 250 mls/hr IV DAILY [facility] Last Admin: 10/24/17 11:46 Dose: 250 mls/hr Vancomycin HCl 500 mg/ (Dextrose) 100 mls @ 100 mls/hr IVPB DAILY@1600 [facility] Last Admin: 10/24/17 20:45 Dose: 100 mls/hr Metoprolol Tartrate (Lopressor -) 50 mg PEG TID [facility] Last Admin: 10/25/17 06:31 Dose: 50 mg Olanzapine (Zyprexa -) 2.5 mg PO BID [facility] Last Admin: 10/24/17 22:38 Dose: 2.5 mg Potassium Chloride (Potassium Chloride Oral Liquid) 40 meq PO DAILY [facility] Last Admin: 10/24/17 11:47 Dose: 40 meq Torsemide (Demadex -) 10 mg PO DAILY [facility] Last Admin: 10/24/17 11:48 Dose: 10 mg - Objective Vital Signs: Vital Signs Temperature 99 F 10/25/17 06:00 Pulse Rate 94 H 10/25/17 06:00 Respiratory Rate 20 10/25/17 06:00 Blood Pressure 115/63 10/25/17 06:00 O2 Sat by Pulse Oximetry (%) 96 12/07/17 22:20 Cardiovascular: Yes: S1, S2 Respiratory: Yes: Diminished, Rhonchi Gastrointestinal: Yes: Normal Bowel Sounds, Soft Labs: CBC, BMP 10/24/17 07:05 10/25/17 07:35 INR, PTT INR 1.11 (0.82-1.09) 10/15/17 21:16 Assessment/Plan - Problems (1) Acute and chronic respiratory failure Assessment/Plan: on med surg floor on trach collar bronchodilators qid rafa rolf on the base passy holly valve as tolerated repeat MBS swallow test once patient consistently uses PMV Code(s): J96.20 - ACUTE AND CHR RESP FAILURE, UNSP W HYPOXIA OR HYPERCAPNIA Qualifiers: Respiratory failure complication: hypoxia and hypercapnia Qualified Code(s) : J96.21 - Acute and chronic respiratory failure with hypoxia; J96.22 - Acute and chronic respiratory failure with hypercapnia; J96.22 - Acute and chronic respiratory failure with hypercapnia; J96.22 - Acute and chronic respiratory failure with hypercapnia (2) Paroxysmal atrial fibrillation Assessment/Plan: continue amiodarone and metoprolol Code(s): I48.0 - PAROXYSMAL ATRIAL FIBRILLATION (3) Staphylococcus aureus bacteremia Assessment/Plan: on iv vancomycin for bacteremia with osteomylitis day 48 of 56 Code(s): R78.81 - BACTEREMIA (4) Fungemia Assessment/Plan: caspofungin optho eval pending- viviane call again echo Code(s): B49 - UNSPECIFIED MYCOSIS (5) Acute kidney injury Assessment/Plan: renal is on board on torsemide renal is on board Code(s): N17.9 - ACUTE KIDNEY FAILURE, UNSPECIFIED (6) Anemia Assessment/Plan: monitor h/h off AC given anemia transfuse if Hgb<8 gi Code(s): D64.9 - ANEMIA, UNSPECIFIED Qualifiers: Anemia type: unspecified type Qualified Code(s): D64.9 - Anemia, unspecified
[2017-10-25] MEDS ORDERED: PT OWN MED DRAWER 7, Y5N ONE ×2 (09:05→11:47)
[2017-10-25] MEDS: AMIODARONE HCL 200 MG TABLET (FP) PEG SCH (09:08)
[2017-10-25] MEDS: HEPARIN NA (PORCINE) 5,000 UNITS/ML 1ML VIAL SQ SCH ×2 (09:08→23:00)
[2017-10-25] MEDS: POTASSIUM CHLORIDE ORAL LIQUID 20 MEQ/15 ML PO SCH (09:08)
[2017-10-25] MEDS: amLODIPine BESYLATE 2.5 MG TABLET (FP) PEG SCH (09:08)
[2017-10-25] MEDS: FOLIC ACID 1 MG TABLET (FP) GT SCH (09:08)
[2017-10-25] MEDS: OLANZapine 2.5 MG TABLET PO SCH ×2 (09:08→23:01)
[2017-10-25] MEDS: ACETAMINOPHEN 650 MG/20.3 ML ORAL SOLUTION (CUPS) GT PRN (09:08)
[2017-10-25] MEDS: TORSEMIDE 10 MG TABLET PO SCH (09:09)
[2017-10-25] MEDS: ACETYLCYSTEINE 20% 200MG/ML 4 ML VIAL *FOR ORAL / INH USE ONLY NEB SCH ×2 (09:20→22:50)
[2017-10-25] MEDS ORDERED: CEFTRIAXONE 1 G/50 ML PREMIX 50 ML IVPB SCH (10:00)
[2017-10-25] MEDS: CASPOFUNGIN ACETATE 50 MG in SODIUM CHLORIDE 250 ML IV SCH (11:13)
[2017-10-25] MEDS: ALBUTEROL SO4 2.5/IPRATROPIUM 0.5 INH SOL 3 ML VIAL.NEB. NEB SCH ×2 (11:40→17:10)
--- NOTE | 2017-10-25 12:51 | PN ---
Progress Note (short form) - Note Progress Note: awake and alert talking wants a cram soda! moist cough unchanged NAD Vital Signs Period Temp Pulse Resp BP Sys/Jeff Pulse Ox Last 24 Hr 97.3 F-100.2 F 80-97 18-22 115-159/54-92 91-96 cor-rrr lungs scattered rhonchi abd soft,nt ext no edema CBC, BMP 10/24/17 07:05 10/25/17 07:35 Microbiology 10/21/17 18:00 Blood - Peripheral Venous Blood Culture - Preliminary NO GROWTH OBTAINED AFTER 72 HOURS, INCUBATION TO CONTINUE FOR 2 DAYS. 10/21/17 18:00 Blood - Peripheral Venous Blood Culture - Preliminary NO GROWTH OBTAINED AFTER 72 HOURS, INCUBATION TO CONTINUE FOR 2 DAYS. 10/16/17 02:35 Blood - Peripheral Venous Yeast/Fungus Identification - Final Mary Glabrata 10/17/17 10:05 Blood - Peripheral Venous Blood Culture - Final NO GROWTH AFTER 5 DAYS INCUBATION 10/17/17 10:05 Blood - Peripheral Venous Blood Culture - Final Yeast Like Organism 10/16/17 02:35 Blood - Peripheral Venous Blood Culture - Final NO GROWTH AFTER 5 DAYS INCUBATION 10/17/17 06:00 Sputum - Endotrachea Suction/Ventilator Gram Stain - Final 10/17/17 06:00 Sputum - Endotrachea Suction/Ventilator Sputum Culture - Final NORMAL RESPIRATORY HERBER 10/16/17 02:30 Blood - Peripheral Venous Blood Culture - Preliminary Yeast Like Organism 10/15/17 22:45 Urine - Urine Freeman Urine Culture - Final NO GROWTH OBTAINED cxray (my read) no change a/p fungemia- mary glabrata optho evaluation unremarkable echo noted-negative for vegetation cancidas day #8 repeat blood cultures, low grade temp noted alk phos continues to trend down MSSA bacteremia/vertebral osteo T9/T10 day #49 of 56 vanco 14, continue same dose ALEXANDRA ?ain-will d/w renal chronic respiratory failure-now off vent
--- NOTE | 2017-10-25 13:55 | PN ---
Progress Note, Physician History of Present Illness: pulmonary alert,nad,-resp distress - Current Medication List Current Medications: Active Medications Acetaminophen (Tylenol Oral Solution -) 650 mg GT Q6H PRN PRN Reason: FEVER OR PAIN Last Admin: 10/25/17 09:08 Dose: 650 mg Acetylcysteine (Mucomyst 20 Oral / Inh Use Only*) 400 mg NEB BID [facility] Last Admin: 10/25/17 09:20 Dose: 400 mg Albuterol Sulfate (Ventolin 0.083% Nebulizer Soln -) 1 amp NEB Q4H PRN PRN Reason: SHORT OF BREATH/WHEEZING Last Admin: 10/25/17 09:20 Dose: 1 amp Albuterol/Ipratropium (Duoneb -) 1 amp NEB QIDR [facility] Last Admin: 10/25/17 11:40 Dose: 1 amp Amiodarone HCl (Cordarone -) 200 mg PEG DAILY [facility] Last Admin: 10/25/17 09:08 Dose: 200 mg Amlodipine Besylate (Norvasc -) 2.5 mg PEG DAILY [facility] Last Admin: 10/25/17 09:08 Dose: 2.5 mg Folic Acid (Folic Acid -) 1 mg GT DAILY [facility] Last Admin: 10/25/17 09:08 Dose: 1 mg Heparin Sodium (Porcine) (Heparin -) 5,000 unit SQ BID [facility] Last Admin: 10/25/17 09:08 Dose: 5,000 unit Caspofungin 50 mg/ Sodium (Chloride) 250 mls @ 250 mls/hr IV DAILY [facility] Last Admin: 10/25/17 11:13 Dose: 250 mls/hr Vancomycin HCl 500 mg/ (Dextrose) 100 mls @ 100 mls/hr IVPB DAILY@1600 [facility] Last Admin: 10/24/17 20:45 Dose: 100 mls/hr Metoprolol Tartrate (Lopressor -) 50 mg PEG TID [facility] Last Admin: 10/25/17 06:31 Dose: 50 mg Olanzapine (Zyprexa -) 2.5 mg PO BID [facility] Last Admin: 10/25/17 09:08 Dose: 2.5 mg Potassium Chloride (Potassium Chloride Oral Liquid) 40 meq PO DAILY [facility] Last Admin: 10/25/17 09:08 Dose: 40 meq Torsemide (Demadex -) 10 mg PO DAILY [facility] Last Admin: 12/08/17 09:09 Dose: 10 mg - Objective Vital Signs: Vital Signs Temperature 98.3 F 10/25/17 10:00 Pulse Rate 97 H 10/25/17 09:20 Respiratory Rate 22 10/25/17 09:01 Blood Pressure 159/92 10/25/17 09:01 O2 Sat by Pulse Oximetry (%) 91 L 10/25/17 09:20 Constitutional: Yes: Well Nourished, Calm Eyes: Yes: WNL HENT: Yes: WNL Neck: Yes: Supple (trach) Cardiovascular: Yes: Pulse Irregular, S1, S2 Respiratory: Yes: Rhonchi (suzy rhonchi) Gastrointestinal: Yes: Normal Bowel Sounds, Soft Extremities: Yes: WNL Edema: No Labs: CBC, BMP 10/25/17 07:35 INR, PTT INR 1.11 (0.82-1.09) 10/15/17 21:16 Problem List - Problems (1) Acute and chronic respiratory failure Code(s): J96.20 - ACUTE AND CHR RESP FAILURE, UNSP W HYPOXIA OR HYPERCAPNIA Qualifiers: Respiratory failure complication: hypoxia and hypercapnia Qualified Code(s) : J96.21 - Acute and chronic respiratory failure with hypoxia; J96.22 - Acute and chronic respiratory failure with hypercapnia; J96.22 - Acute and chronic respiratory failure with hypercapnia; J96.22 - Acute and chronic respiratory failure with hypercapnia (2) Agitation Code(s): R45.1 - RESTLESSNESS AND AGITATION (3) Respiratory distress Code(s): R06.03 - ACUTE RESPIRATORY DISTRESS (4) Alkaline phosphatase elevation Code(s): R74.8 - ABNORMAL LEVELS OF OTHER SERUM ENZYMES (5) Anemia Code(s): D64.9 - ANEMIA, UNSPECIFIED Qualifiers: Anemia type: unspecified type Qualified Code(s): D64.9 - Anemia, unspecified (6) History of alcohol abuse Code(s): Z87.898 - PERSONAL HISTORY OF OTHER SPECIFIED CONDITIONS (7) Paroxysmal atrial fibrillation Code(s): I48.0 - PAROXYSMAL ATRIAL FIBRILLATION (8) Pneumonia Code(s): J18.9 - PNEUMONIA, UNSPECIFIED ORGANISM Qualifiers: Pneumonia type: aspiration pneumonia (9) Respiratory failure with hypoxia Code(s): J96.91 - RESPIRATORY FAILURE, UNSPECIFIED WITH HYPOXIA Qualifiers: Chronicity: acute Qualified Code(s): J96.01 - Acute respiratory failure with hypoxia (10) Status post tracheostomy Code(s): Z93.0 - TRACHEOSTOMY STATUS Assessment/Plan A/P Vent Dependent Chronic Respiratory Failure Atrial Fibrillation with RVR Acute on Chronic Renal Failure Loculated Pleural Effusions Anemia - speaking valve - spontaneous breathing trials as tolerated - enteral feeds - DVT/GI prophylaxis - rate controlled - f/u chest x-rays DR SANTAMARIA
--- NOTE | 2017-10-25 15:00 | PN ---
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 Respiration is comfortable. Suggest daily PMV with oxymeter to monitor o2 saturation to enable pt to communicate, improve upper airway function, sensation, swallowing function. Per EMR, PMV used on 10/21. Pending discharge to assisted. Continue speech/swallowing tx to improve upper airway function. Repeat MBS once PMV used consistently to r/o silent aspiration and initiate PO trials, if indicated.
[2017-10-25] MEDS: VANCOMYCIN 500 MG in DEXTROSE 5%-WATER - 100 ML IVPB SCH (15:08)
--- NOTE | 2017-10-25 15:52 | PN ---
Progress Note, Physician History of Present Illness: Pt seen and examined at bedside. He is awake and appears comfortable. - Current Medication List Current Medications: Active Medications Acetaminophen (Tylenol Oral Solution -) 650 mg GT Q6H PRN PRN Reason: FEVER OR PAIN Last Admin: 10/25/17 09:08 Dose: 650 mg Acetylcysteine (Mucomyst 20 Oral / Inh Use Only*) 400 mg NEB BID [facility] Last Admin: 10/25/17 09:20 Dose: 400 mg Albuterol Sulfate (Ventolin 0.083% Nebulizer Soln -) 1 amp NEB Q4H PRN PRN Reason: SHORT OF BREATH/WHEEZING Last Admin: 10/25/17 09:20 Dose: 1 amp Albuterol/Ipratropium (Duoneb -) 1 amp NEB QIDR [facility] Last Admin: 10/25/17 11:40 Dose: 1 amp Amiodarone HCl (Cordarone -) 200 mg PEG DAILY [facility] Last Admin: 10/25/17 09:08 Dose: 200 mg Amlodipine Besylate (Norvasc -) 2.5 mg PEG DAILY [facility] Last Admin: 10/25/17 09:08 Dose: 2.5 mg Folic Acid (Folic Acid -) 1 mg GT DAILY [facility] Last Admin: 10/25/17 09:08 Dose: 1 mg Heparin Sodium (Porcine) (Heparin -) 5,000 unit SQ BID [facility] Last Admin: 10/25/17 09:08 Dose: 5,000 unit Caspofungin 50 mg/ Sodium (Chloride) 250 mls @ 250 mls/hr IV DAILY [facility] Last Admin: 10/25/17 11:13 Dose: 250 mls/hr Vancomycin HCl 500 mg/ (Dextrose) 100 mls @ 100 mls/hr IVPB DAILY@1600 [facility] Last Admin: 10/25/17 15:08 Dose: 100 mls/hr Metoprolol Tartrate (Lopressor -) 50 mg PEG TID [facility] Last Admin: 10/25/17 15:08 Dose: 50 mg Olanzapine (Zyprexa -) 2.5 mg PO BID [facility] Last Admin: 10/25/17 09:08 Dose: 2.5 mg Potassium Chloride (Potassium Chloride Oral Liquid) 40 meq PO DAILY [facility] Last Admin: 10/25/17 09:08 Dose: 40 meq Torsemide (Demadex -) 10 mg PO DAILY [facility] Last Admin: 10/25/17 09:09 Dose: 10 mg - Objective Vital Signs: Vital Signs Temperature 98.6 F 10/25/17 14:27 Pulse Rate 95 H 10/25/17 14:27 Respiratory Rate 22 10/25/17 14:27 Blood Pressure 136/73 10/25/17 14:27 O2 Sat by Pulse Oximetry (%) 91 L 10/25/17 09:20 Constitutional: Yes: Calm Eyes: Yes: Conjunctiva Clear Neck: Yes: Other (trache) Cardiovascular: Yes: S1, S2 Respiratory: Yes: Other (trache) Gastrointestinal: Yes: Soft, Other (peg) Musculoskeletal: Yes: WNL Edema: No Neurological: Yes: Oriented Psychiatric: Yes: Oriented Labs: CBC, BMP 10/24/17 07:05 10/25/17 07:35 INR, PTT INR 1.11 (0.82-1.09) 10/15/17 21:16 Problem List - Problems (1) Acute and chronic respiratory failure Code(s): J96.20 - ACUTE AND CHR RESP FAILURE, UNSP W HYPOXIA OR HYPERCAPNIA Qualifiers: Respiratory failure complication: hypoxia and hypercapnia Qualified Code(s) : J96.21 - Acute and chronic respiratory failure with hypoxia; J96.22 - Acute and chronic respiratory failure with hypercapnia; J96.22 - Acute and chronic respiratory failure with hypercapnia; J96.22 - Acute and chronic respiratory failure with hypercapnia (2) Agitation Code(s): R45.1 - RESTLESSNESS AND AGITATION (3) Atrial flutter by electrocardiogram Code(s): I48.92 - UNSPECIFIED ATRIAL FLUTTER (4) Respiratory distress Code(s): R06.03 - ACUTE RESPIRATORY DISTRESS (5) Acute kidney injury Code(s): N17.9 - ACUTE KIDNEY FAILURE, UNSPECIFIED (6) Anemia Code(s): D64.9 - ANEMIA, UNSPECIFIED Qualifiers: Anemia type: unspecified type Qualified Code(s): D64.9 - Anemia, unspecified Assessment/Plan Current Medications Generic Name Dose Route Start Last Admin Trade Name Freq PRN Reason Stop Dose Admin Acetaminophen 650 mg 10/19/17 03:41 10/25/17 09:08 Tylenol Oral Solution - GT 650 mg Q6H PRN Administration FEVER OR PAIN Acetylcysteine 400 mg 10/22/17 10:00 10/25/17 09:20 Mucomyst 20 Oral / Inh Use Only* NEB 400 mg BID [facility] Administration Albuterol Sulfate 1 amp 10/24/17 09:32 10/25/17 09:20 Ventolin 0.083% Nebulizer Soln - NEB 1 amp Q4H PRN Administration SHORT OF BREATH/WHEEZING Albuterol/Ipratropium 1 amp 10/25/17 12:00 10/25/17 11:40 Duoneb - NEB 1 amp QIDR [facility] Administration Amiodarone HCl 200 mg 10/19/17 10:00 10/25/17 09:08 Cordarone - PEG 200 mg DAILY [facility] Administration Amlodipine Besylate 2.5 mg 10/20/17 11:15 10/25/17 09:08 Norvasc - PEG 2.5 mg DAILY [facility] Administration Folic Acid 1 mg 10/19/17 10:00 10/25/17 09:08 Folic Acid - GT 1 mg DAILY [facility] Administration Heparin Sodium (Porcine) 5,000 unit 10/19/17 10:00 10/25/17 09:08 Heparin - SQ 5,000 unit BID [facility] Administration Caspofungin 50 mg/ Sodium 250 mls @ 250 mls/hr 10/19/17 10:00 10/25/17 11:13 Chloride IV 250 mls/hr DAILY [facility] Administration Vancomycin HCl 500 mg/ 100 mls @ 100 mls/hr 10/22/17 16:00 10/25/17 15:08 Dextrose IVPB 100 mls/hr DAILY@1600 [facility] Administration Metoprolol Tartrate 50 mg 10/19/17 06:00 10/25/17 15:08 Lopressor - PEG 50 mg TID [facility] Administration Olanzapine 2.5 mg 10/19/17 10:00 10/25/17 09:08 Zyprexa - PO 2.5 mg BID [facility] Administration Potassium Chloride 40 meq 10/22/17 10:00 10/25/17 09:08 Potassium Chloride Oral Liquid PO 40 meq DAILY [facility] Administration Torsemide 10 mg 10/21/17 13:07 10/25/17 09:09 Demadex - PO 10 mg DAILY [facility] Administration Impression 1. ALEXANDRA 2. fluid overload 3. hypoalbuminemia 4. respiratory failure requiring intubation 5. anemia 6. etoh abuse 7. fevers 8. hypokalemia 9. pleural effusion 10. hypernatremia 11. GI bleed 12. rash 13. a flutter Plan - sodium is improved - renal function is improved - cont feeds - cxr reviewed - cont torsemide - trache care Dr Peres
--- NOTE | 2017-10-25 16:32 | PN ---
Progress Note, Physician History of Present Illness: Comfortable off vent on trach collar. - Current Medication List Current Medications: Active Medications Acetaminophen (Tylenol Oral Solution -) 650 mg GT Q6H PRN PRN Reason: FEVER OR PAIN Last Admin: 10/25/17 09:08 Dose: 650 mg Acetylcysteine (Mucomyst 20 Oral / Inh Use Only*) 400 mg NEB BID [facility] Last Admin: 10/25/17 09:20 Dose: 400 mg Albuterol Sulfate (Ventolin 0.083% Nebulizer Soln -) 1 amp NEB Q4H PRN PRN Reason: SHORT OF BREATH/WHEEZING Last Admin: 10/25/17 09:20 Dose: 1 amp Albuterol/Ipratropium (Duoneb -) 1 amp NEB QIDR [facility] Last Admin: 10/25/17 11:40 Dose: 1 amp Amiodarone HCl (Cordarone -) 200 mg PEG DAILY [facility] Last Admin: 10/25/17 09:08 Dose: 200 mg Amlodipine Besylate (Norvasc -) 2.5 mg PEG DAILY [facility] Last Admin: 10/25/17 09:08 Dose: 2.5 mg Folic Acid (Folic Acid -) 1 mg GT DAILY [facility] Last Admin: 10/25/17 09:08 Dose: 1 mg Heparin Sodium (Porcine) (Heparin -) 5,000 unit SQ BID [facility] Last Admin: 10/25/17 09:08 Dose: 5,000 unit Caspofungin 50 mg/ Sodium (Chloride) 250 mls @ 250 mls/hr IV DAILY [facility] Last Admin: 10/25/17 11:13 Dose: 250 mls/hr Vancomycin HCl 500 mg/ (Dextrose) 100 mls @ 100 mls/hr IVPB DAILY@1600 [facility] Last Admin: 10/25/17 15:08 Dose: 100 mls/hr Metoprolol Tartrate (Lopressor -) 50 mg PEG TID [facility] Last Admin: 10/25/17 15:08 Dose: 50 mg Olanzapine (Zyprexa -) 2.5 mg PO BID [facility] Last Admin: 10/25/17 09:08 Dose: 2.5 mg Potassium Chloride (Potassium Chloride Oral Liquid) 40 meq PO DAILY [facility] Last Admin: 10/25/17 09:08 Dose: 40 meq Torsemide (Demadex -) 10 mg PO DAILY [facility] Last Admin: 10/25/17 09:09 Dose: 10 mg - Objective Vital Signs: Vital Signs Temperature 98.6 F 10/25/17 14:27 Pulse Rate 95 H 10/25/17 14:27 Respiratory Rate 22 10/25/17 14:27 Blood Pressure 136/73 10/25/17 14:27 O2 Sat by Pulse Oximetry (%) 91 L 10/25/17 09:20 Constitutional: Yes: No Distress, Calm HENT: Yes: Other (Trach collar) Neck: Yes: Supple Cardiovascular: Yes: Regular Rate and Rhythm Respiratory: Yes: Regular, Diminished Gastrointestinal: Yes: Normal Bowel Sounds, Soft Edema: No Labs: CBC, BMP 10/24/17 07:05 10/25/17 07:35 INR, PTT INR 1.11 (0.82-1.09) 10/15/17 21:16 Problem List - Problems (1) Acute and chronic respiratory failure Code(s): J96.20 - ACUTE AND CHR RESP FAILURE, UNSP W HYPOXIA OR HYPERCAPNIA Qualifiers: Respiratory failure complication: hypoxia and hypercapnia Qualified Code(s) : J96.21 - Acute and chronic respiratory failure with hypoxia; J96.22 - Acute and chronic respiratory failure with hypercapnia; J96.22 - Acute and chronic respiratory failure with hypercapnia; J96.22 - Acute and chronic respiratory failure with hypercapnia (2) Agitation Code(s): R45.1 - RESTLESSNESS AND AGITATION (3) Acute kidney injury Code(s): N17.9 - ACUTE KIDNEY FAILURE, UNSPECIFIED (4) Alkaline phosphatase elevation Code(s): R74.8 - ABNORMAL LEVELS OF OTHER SERUM ENZYMES (5) Anemia Code(s): D64.9 - ANEMIA, UNSPECIFIED Qualifiers: Anemia type: unspecified type Qualified Code(s): D64.9 - Anemia, unspecified (6) Paroxysmal atrial fibrillation Code(s): I48.0 - PAROXYSMAL ATRIAL FIBRILLATION (7) Status post insertion of percutaneous endoscopic gastrostomy (PEG) tube Code(s): Z93.1 - GASTROSTOMY STATUS (8) Status post tracheostomy Code(s): Z93.0 - TRACHEOSTOMY STATUS (9) Acute diastolic heart failure Code(s): I50.31 - ACUTE DIASTOLIC (CONGESTIVE) HEART FAILURE (10) Fungemia Code(s): B49 - UNSPECIFIED MYCOSIS Assessment/Plan 1. Fungemia vs colonization 2. 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 Blackwell. 3. Chronic respiratory failure, post tracheotomy 4. History of cavitating pneumonia, MSSA bacteremia, post septic shock no evidence of endocarditis by ALISA criteria 5. History of diastolic LV dysfunction with class I-II NYHA congestive heart failure, compensated/euvolemic 6. History of osteomyelitis T9-T10 discitis 7. History of loculated pleural effusion post chest tube insertion 8. History of alcohol dependence 9. Acute renal insufficiency 10. Anemia 11. Hypokalemia 12. Hypernatremia PLAN: 1. Continue Lopressor 50 tid via PEG 2. Continue Amiodarone 200 qd via PEG 3. Continue Norvasc 2.5 qd and Demadex 10 qd 4. 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 Consider transfusion to maintain Hgb equal or > 8.0 6. Monitor electrolytes, PMV as tolerated, enteral feeds, DVT and GI prophylaxis 7. Antifungal and abx course as per ID service with monitor surveillance cx
--- NOTE | 2017-10-25 19:16 | CON.ENT ---
Consult Consult Specialty:: ENT Referred by:: Dr. Boss Reason for Consultation:: Trach - History of Present Illness Chief Complaint: tracheotomy - problems passing suction History of Present Illness: 67 yo M with numerous medical problems had admission August 2017. respiratory failure with prolonged ventilation, had percutaneous tracheotomy by DR. Klein on 10-09-17 Readmitted to [facility], on [facility] on ventilator recently difficulty passing suction catheter via tracheotomy tube noted by report CXR showed trach in place also an episode of oxygen desaturation to 80's, supplemented by nasal O2, improved - History Source History Provided By: Medical Record - Past Medical History Cardio/Vascular: Yes: HTN Pulmonary: Yes: Pneumonia Renal/: Yes: Renal Failure, Renal Inusuff Musculoskeletal: Yes: Other (left rib pain ) Additional Medical History: chronic alcoholism with multiple detox and rehabs in the past.most recent at [facility] x 12 months - states he began drinking immediately after d/c . - Past Surgical History Additional Surgical History: trache, peg, chest tube - Alcohol/Substance Use Hx Alcohol Use: Yes Number of Drinks Daily: 8 (He states he drinks about 8 16oz drinks per day) - Smoking History Smoking history: Former smoker Have you smoked in the past 12 months: No If you are a former smoker, when did you quit?: 42 years ago - Social History Usual Living Arrangement: [facility] ADL: Independent Home Medications - Allergies Allergies/Adverse Reactions: Allergies Allergy/AdvReac Type Severity Reaction Status Date / Time No Known Allergies Allergy Verified 10/15/17 20:38 - Home Medications Home Medications: Ambulatory Orders Amiodarone HCl [Cordarone -] 200 mg PEG DAILY tablet 10/15/17 Folic Acid - 1 mg GT DAILY 10/15/17 Metoprolol Tartrate [Lopressor -] 50 mg PEG TID tablet 10/15/17 Mupirocin Cream [Bactroban 2% Cream -] 1 applic TP BID tube 10/15/17 Quetiapine Fumarate [Seroquel -] 25 mg PEG HS tablet 10/15/17 Thiamine HCl [Vitamin B1 -] 100 mg GT DAILY 10/15/17 Physical Exam-ENT Vital Signs: Vital Signs Temperature 98.6 F 10/25/17 14:27 Pulse Rate 95 H 10/25/17 14:27 Respiratory Rate 22 10/25/17 14:27 Blood Pressure 136/73 10/25/17 14:27 O2 Sat by Pulse Oximetry (%) 91 L 10/25/17 09:20 Constitutional: Yes: No Distress, Other ( SaO2 92%, HR 92, BP 152/92) Head: Yes: WNL Eyes: Yes: WNL (eye opening on awakening), Other Outer Ear: Yes: WNL Neck: Yes: Other (#8 Shiley percutaneous tracheotomy tube present, flange is sutured to skin, velcro strap present. Inner cannula in place. Flexible endoscopy performed via tracheotomy tube: tube lumen is patent. At end of tracheotomy tube, yellow-herrera soft tissue is present. No tracheal lumen or other air containing space visible. Could not advance flexible endoscope past this soft tissue.) Imaging - Results Chest X-ray: Report Reviewed, Image Reviewed (rotated, mass right lower lobe, tracheotomy tube in place, pleural effusion) Problem List - Problems (1) Tracheostomy malfunction Assessment/Plan: pt is s/p percutaneous tracheotomy tube placement by Dr. Klein on 10-09-2017. recent trouble with tube - suction catheter would not pass. also episode of hypoxemia, treated with nasal O2 then improved Examination shows tracheotomy tube is present and secure. However, endoscopic examination of tracheotomy shows that, while the tube lumen is patent, the tube tip is not in the trachea. It does not connect to the airway. The yellow-herrera soft tissue seen at the tracheotomy tube tip is likely adipose tissue in the neck anterior to the trachea. On further discussion, nurse states that several days ago the tracheotomy tube was observed to have been partially pulled out. Recommend: contact patient's surgeon, Dr. Klein, and advise him of the tracheotomy tube problem This is the original tube from the primary procedure, does not appear to have been changed yet since skin sutures are still in place. Patient's present respiratory status is stable. Thank you for consultation, Blair Watson MD FACS Code(s): J95.03 - MALFUNCTION OF TRACHEOSTOMY STOMA
[2017-10-26] MEDS: ALBUTEROL SO4 2.5/IPRATROPIUM 0.5 INH SOL 3 ML VIAL.NEB. NEB SCH ×4 (00:02→18:20)
[2017-10-26] MEDS: METOPROLOL TARTRATE 50 MG TABLET (FP) PEG SCH ×3 (06:34→22:53)
[2017-10-26 07:53] LABS: ANION GAP 10 (8-16); CALCIUM 9.3 mg/dL (8.5-10.1); CO2 26 mmol/L (21-32); CREATININE 2.5 mg/dL (0.7-1.3); GLUCOSE,RANDOM 116 mg/dL (74-106)
[2017-10-26] MEDS: ACETYLCYSTEINE 20% 200MG/ML 4 ML VIAL *FOR ORAL / INH USE ONLY NEB SCH ×2 (10:00→22:13)
[2017-10-26] MEDS: ALBUTEROL SO4 0.083% IH SOL 2.5 MG/3 ML VIAL.NEB. NEB PRN ×2 (10:00→22:14)
[2017-10-26] MEDS ORDERED: PT OWN MED DRAWER 7, Y5N ONE (10:57)
[2017-10-26] MEDS: POTASSIUM CHLORIDE ORAL LIQUID 20 MEQ/15 ML PO SCH (10:59)
[2017-10-26] MEDS: FOLIC ACID 1 MG TABLET (FP) GT SCH (11:00)
[2017-10-26] MEDS: TORSEMIDE 10 MG TABLET PO SCH (11:00)
[2017-10-26] MEDS: AMIODARONE HCL 200 MG TABLET (FP) PEG SCH (11:00)
[2017-10-26] MEDS: amLODIPine BESYLATE 2.5 MG TABLET (FP) PEG SCH (11:00)
[2017-10-26] MEDS: OLANZapine 2.5 MG TABLET PO SCH ×2 (11:00→22:53)
--- NOTE | 2017-10-26 11:02 | PN ---
Progress Note, Physician History of Present Illness: Comfortable off vent on trach collar, input notes dislocated tracheostomy tube. - Current Medication List Current Medications: Active Medications Acetaminophen (Tylenol Oral Solution -) 650 mg GT Q6H PRN PRN Reason: FEVER OR PAIN Last Admin: 10/25/17 09:08 Dose: 650 mg Acetylcysteine (Mucomyst 20 Oral / Inh Use Only*) 400 mg NEB BID [facility] Last Admin: 10/25/17 22:50 Dose: 400 mg Albuterol Sulfate (Ventolin 0.083% Nebulizer Soln -) 1 amp NEB Q4H PRN PRN Reason: SHORT OF BREATH/WHEEZING Last Admin: 10/25/17 22:50 Dose: 1 amp Albuterol/Ipratropium (Duoneb -) 1 amp NEB QIDR [facility] Last Admin: 10/26/17 06:48 Dose: 1 amp Amiodarone HCl (Cordarone -) 200 mg PEG DAILY [facility] Last Admin: 10/25/17 09:08 Dose: 200 mg Amlodipine Besylate (Norvasc -) 2.5 mg PEG DAILY [facility] Last Admin: 10/25/17 09:08 Dose: 2.5 mg Folic Acid (Folic Acid -) 1 mg GT DAILY [facility] Last Admin: 10/25/17 09:08 Dose: 1 mg Caspofungin 50 mg/ Sodium (Chloride) 250 mls @ 250 mls/hr IV DAILY [facility] Last Admin: 10/25/17 11:13 Dose: 250 mls/hr Vancomycin HCl 500 mg/ (Dextrose) 100 mls @ 100 mls/hr IVPB DAILY@1600 [facility] Last Admin: 10/25/17 15:08 Dose: 100 mls/hr Metoprolol Tartrate (Lopressor -) 50 mg PEG TID [facility] Last Admin: 10/26/17 06:34 Dose: 50 mg Nystatin (Mycolog -) 500,000 unit PO TID [facility] Olanzapine (Zyprexa -) 2.5 mg PO BID [facility] Last Admin: 10/25/17 23:01 Dose: 2.5 mg Potassium Chloride (Potassium Chloride Oral Liquid) 40 meq PO DAILY [facility] Last Admin: 10/25/17 09:08 Dose: 40 meq Torsemide (Demadex -) 10 mg PO DAILY [facility] Last Admin: 10/25/17 09:09 Dose: 10 mg - Objective Vital Signs: Vital Signs Temperature 100.2 F H 10/26/17 06:14 Pulse Rate 80 10/26/17 10:00 Respiratory Rate 20 10/26/17 10:00 Blood Pressure 128/84 10/26/17 10:00 O2 Sat by Pulse Oximetry (%) 95 10/25/17 10:00 Constitutional: Yes: No Distress, Calm, Thin HENT: Yes: Other (Trach malpositioned) Neck: Yes: Supple Cardiovascular: Yes: Regular Rate and Rhythm Respiratory: Yes: Regular, Diminished, Rhonchi Gastrointestinal: Yes: Normal Bowel Sounds, Soft, Other (Peg in place) Edema: No Labs: CBC, BMP 10/24/17 07:05 10/26/17 06:40 INR, PTT INR 1.11 (0.82-1.09) 10/15/17 21:16 - ....Imaging Chest X-ray: Report Reviewed (Stable) Problem List - Problems (1) Acute and chronic respiratory failure Code(s): J96.20 - ACUTE AND CHR RESP FAILURE, UNSP W HYPOXIA OR HYPERCAPNIA Qualifiers: Respiratory failure complication: hypoxia and hypercapnia Qualified Code(s) : J96.21 - Acute and chronic respiratory failure with hypoxia; J96.22 - Acute and chronic respiratory failure with hypercapnia; J96.22 - Acute and chronic respiratory failure with hypercapnia; J96.22 - Acute and chronic respiratory failure with hypercapnia (2) Agitation Code(s): R45.1 - RESTLESSNESS AND AGITATION (3) Acute kidney injury Code(s): N17.9 - ACUTE KIDNEY FAILURE, UNSPECIFIED (4) Alkaline phosphatase elevation Code(s): R74.8 - ABNORMAL LEVELS OF OTHER SERUM ENZYMES (5) Anemia Code(s): D64.9 - ANEMIA, UNSPECIFIED Qualifiers: Anemia type: unspecified type Qualified Code(s): D64.9 - Anemia, unspecified (6) Paroxysmal atrial fibrillation Code(s): I48.0 - PAROXYSMAL ATRIAL FIBRILLATION (7) Status post insertion of percutaneous endoscopic gastrostomy (PEG) tube Code(s): Z93.1 - GASTROSTOMY STATUS (8) Status post tracheostomy Code(s): Z93.0 - TRACHEOSTOMY STATUS (9) Acute diastolic heart failure Code(s): I50.31 - ACUTE DIASTOLIC (CONGESTIVE) HEART FAILURE (10) Fungemia Code(s): B49 - UNSPECIFIED MYCOSIS (11) Tracheostomy malfunction Code(s): J95.03 - MALFUNCTION OF TRACHEOSTOMY STOMA Assessment/Plan 1. Fungemia vs colonization 2. 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 Blackwell. 3. Chronic respiratory failure, post tracheotomy with dislocation 4. History of cavitating pneumonia, MSSA bacteremia, post septic shock no evidence of endocarditis by ALISA criteria 5. History of diastolic LV dysfunction with class I-II NYHA congestive heart failure, compensated/euvolemic 6. History of osteomyelitis T9-T10 discitis 7. History of loculated pleural effusion post chest tube insertion 8. History of alcohol dependence 9. Acute renal insufficiency 10. Anemia 11. Hypokalemia 12. Hypernatremia PLAN: 1. Continue Lopressor 50 tid via PEG 2. Continue Amiodarone 200 qd via PEG 3. Continue Norvasc 2.5 qd and Demadex 10 qd 4. 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 Consider transfusion to maintain Hgb equal or > 8.0 6. Monitor electrolytes, PMV as tolerated, enteral feeds, DVT and GI prophylaxis 7. Antifungal and abx course as per ID service with monitor surveillance cx 8. Dr. Earl to revisit malfunctioning tracheostomy
[2017-10-26] MEDS: CASPOFUNGIN ACETATE 50 MG in SODIUM CHLORIDE 250 ML IV SCH (12:18)
--- NOTE | 2017-10-26 12:20 | PN ---
Progress Note, Physician - Current Medication List Current Medications: Active Medications Acetaminophen (Tylenol Oral Solution -) 650 mg GT Q6H PRN PRN Reason: FEVER OR PAIN Last Admin: 10/25/17 09:08 Dose: 650 mg Acetylcysteine (Mucomyst 20 Oral / Inh Use Only*) 400 mg NEB BID [facility] Last Admin: 10/25/17 22:50 Dose: 400 mg Albuterol Sulfate (Ventolin 0.083% Nebulizer Soln -) 1 amp NEB Q4H PRN PRN Reason: SHORT OF BREATH/WHEEZING Last Admin: 10/25/17 22:50 Dose: 1 amp Albuterol/Ipratropium (Duoneb -) 1 amp NEB QIDR [facility] Last Admin: 10/26/17 06:48 Dose: 1 amp Amiodarone HCl (Cordarone -) 200 mg PEG DAILY [facility] Last Admin: 10/26/17 11:00 Dose: 200 mg Amlodipine Besylate (Norvasc -) 2.5 mg PEG DAILY [facility] Last Admin: 10/26/17 11:00 Dose: 2.5 mg Folic Acid (Folic Acid -) 1 mg GT DAILY [facility] Last Admin: 10/26/17 11:00 Dose: 1 mg Heparin Sodium (Porcine) (Heparin -) 5,000 unit SQ BID [facility] Caspofungin 50 mg/ Sodium (Chloride) 250 mls @ 250 mls/hr IV DAILY [facility] Last Admin: 10/25/17 11:13 Dose: 250 mls/hr Vancomycin HCl 500 mg/ (Dextrose) 100 mls @ 100 mls/hr IVPB DAILY@1600 [facility] Last Admin: 10/25/17 15:08 Dose: 100 mls/hr Metoprolol Tartrate (Lopressor -) 50 mg PEG TID [facility] Last Admin: 10/26/17 06:34 Dose: 50 mg Nystatin (Mycolog -) 500,000 unit PO TID [facility] Olanzapine (Zyprexa -) 2.5 mg PO BID [facility] Last Admin: 10/26/17 11:00 Dose: 2.5 mg Potassium Chloride (Potassium Chloride Oral Liquid) 40 meq PO DAILY [facility] Last Admin: 10/26/17 10:59 Dose: 40 meq Torsemide (Demadex -) 10 mg PO DAILY [facility] Last Admin: 10/26/17 11:00 Dose: 10 mg - Objective Vital Signs: Vital Signs Temperature 100.2 F H 10/26/17 06:14 Pulse Rate 80 10/26/17 10:00 Respiratory Rate 20 10/26/17 10:00 Blood Pressure 128/84 10/26/17 10:00 O2 Sat by Pulse Oximetry (%) 95 10/25/17 10:00 Cardiovascular: Yes: S1, S2 Respiratory: Yes: Diminished, Rhonchi Gastrointestinal: Yes: Normal Bowel Sounds, Soft Labs: CBC, BMP 10/24/17 07:05 10/26/17 06:40 INR, PTT INR 1.11 (0.82-1.09) 10/15/17 21:16 Assessment/Plan - Problems (1) Acute and chronic respiratory failure Assessment/Plan: on med surg floor on trach collar bronchodilators qid rafa rolf on the base passy holly valve as tolerated repeat MBS swallow test once patient consistently uses PMV Code(s): J96.20 - ACUTE AND CHR RESP FAILURE, UNSP W HYPOXIA OR HYPERCAPNIA Qualifiers: Respiratory failure complication: hypoxia and hypercapnia Qualified Code(s) : J96.21 - Acute and chronic respiratory failure with hypoxia; J96.22 - Acute and chronic respiratory failure with hypercapnia; J96.22 - Acute and chronic respiratory failure with hypercapnia; J96.22 - Acute and chronic respiratory failure with hypercapnia (2) Paroxysmal atrial fibrillation Assessment/Plan: continue amiodarone and metoprolol Code(s): I48.0 - PAROXYSMAL ATRIAL FIBRILLATION (3) Staphylococcus aureus bacteremia Assessment/Plan: on iv vancomycin for bacteremia with osteomylitis day 48 of 56 Code(s): R78.81 - BACTEREMIA (4) Fungemia Assessment/Plan: caspofungin optho eval pending- viviane call again echo Code(s): B49 - UNSPECIFIED MYCOSIS (5) Acute kidney injury Assessment/Plan: renal is on board on torsemide renal is on board Code(s): N17.9 - ACUTE KIDNEY FAILURE, UNSPECIFIED (6) Anemia Assessment/Plan: monitor h/h off AC given anemia transfuse if Hgb<8 gi Code(s): D64.9 - ANEMIA, UNSPECIFIED Qualifiers: Anemia type: unspecified type Qualified Code(s): D64.9 - Anemia, unspecified (7) Oral Thrush Assessment/Plan: [place]
[2017-10-26] MEDS: HEPARIN NA (PORCINE) 5,000 UNITS/ML 1ML VIAL SQ SCH ×2 (13:12→22:52)
[2017-10-26] MEDS: NYSTATIN 500,000 UNITS TABLET PO SCH ×2 (13:19→22:54)
--- NOTE | 2017-10-26 15:47 | PN ---
Progress Note (short form) - Note Progress Note: PULMONARY ENT evaluation appreciated, trach has been dislodged. Saturating well essentially on room air. Last Vital Signs Temp Pulse Resp BP Pulse Ox 97.6 F 81 20 127/83 98 10/26/17 13:50 10/26/17 13:50 10/26/17 10:00 10/26/17 13:50 10/26/17 13:05 Gen: on trach collar, awake Heart: irregular Lung: decreased breath sounds at the bases Abd: soft, nontender Ext: no edema CBC, BMP 10/24/17 07:05 10/26/17 06:40 Active Medications Acetaminophen (Tylenol Oral Solution -) 650 mg GT Q6H PRN PRN Reason: FEVER OR PAIN Last Admin: 10/25/17 09:08 Dose: 650 mg Acetylcysteine (Mucomyst 20 Oral / Inh Use Only*) 400 mg NEB BID [facility] Last Admin: 10/26/17 10:00 Dose: 400 mg Albuterol Sulfate (Ventolin 0.083% Nebulizer Soln -) 1 amp NEB Q4H PRN PRN Reason: SHORT OF BREATH/WHEEZING Last Admin: 10/26/17 10:00 Dose: 1 amp Albuterol/Ipratropium (Duoneb -) 1 amp NEB QIDR [facility] Last Admin: 10/26/17 14:00 Dose: 1 amp Amiodarone HCl (Cordarone -) 200 mg PEG DAILY [facility] Last Admin: 10/26/17 11:00 Dose: 200 mg Amlodipine Besylate (Norvasc -) 2.5 mg PEG DAILY [facility] Last Admin: 10/26/17 11:00 Dose: 2.5 mg Folic Acid (Folic Acid -) 1 mg GT DAILY [facility] Last Admin: 10/26/17 11:00 Dose: 1 mg Heparin Sodium (Porcine) (Heparin -) 5,000 unit SQ BID [facility] Last Admin: 10/26/17 13:12 Dose: 5,000 unit Caspofungin 50 mg/ Sodium (Chloride) 250 mls @ 250 mls/hr IV DAILY [facility] Last Admin: 10/26/17 12:18 Dose: 250 mls/hr Vancomycin HCl 500 mg/ (Dextrose) 100 mls @ 100 mls/hr IVPB DAILY@1600 [facility] Last Admin: 10/25/17 15:08 Dose: 100 mls/hr Metoprolol Tartrate (Lopressor -) 50 mg PEG TID [facility] Last Admin: 10/26/17 13:20 Dose: 50 mg Nystatin (Mycolog -) 500,000 unit PO TID [facility] Last Admin: 10/26/17 13:19 Dose: Not Given Olanzapine (Zyprexa -) 2.5 mg PO BID [facility] Last Admin: 10/26/17 11:00 Dose: 2.5 mg Potassium Chloride (Potassium Chloride Oral Liquid) 40 meq PO DAILY [facility] Last Admin: 10/26/17 10:59 Dose: 40 meq Torsemide (Demadex -) 10 mg PO DAILY [facility] Last Admin: 10/26/17 11:00 Dose: 10 mg A/P Vent Dependent Chronic Respiratory Failure Fungemia Atrial Fibrillation with RVR Acute on Chronic Renal Failure Loculated Pleural Effusions Anemia - antibiotics/antifungals per ID - would leave trach as is since he is stable and has a strong voice - will consider decannulation when surgery around - PO as tolerated - DVT/GI prophylaxis
[2017-10-26] MEDS: VANCOMYCIN 500 MG in DEXTROSE 5%-WATER - 100 ML IVPB SCH (16:37)
--- NOTE | 2017-10-26 23:18 | PN ---
Progress Note (short form) - Note Progress Note: Impression 1. ALEXANDRA 2. fluid overload 3. hypoalbuminemia 4. respiratory failure requiring intubation 5. anemia 6. etoh abuse 7. fevers 8. hypokalemia 9. pleural effusion 10. hypernatremia 11. GI bleed 12. rash 13. a flutter Current Medications Acetaminophen (Tylenol Oral Solution -) 650 mg GT Q6H PRN PRN Reason: FEVER OR PAIN Last Admin: 10/25/17 09:08 Dose: 650 mg Acetylcysteine (Mucomyst 20 Oral / Inh Use Only*) 400 mg NEB BID [facility] Last Admin: 10/26/17 22:13 Dose: 400 mg Albuterol Sulfate (Ventolin 0.083% Nebulizer Soln -) 1 amp NEB Q4H PRN PRN Reason: SHORT OF BREATH/WHEEZING Last Admin: 10/26/17 22:14 Dose: 1 amp Albuterol/Ipratropium (Duoneb -) 1 amp NEB QIDR [facility] Last Admin: 10/26/17 18:20 Dose: 1 amp Amiodarone HCl (Cordarone -) 200 mg PEG DAILY [facility] Last Admin: 10/26/17 11:00 Dose: 200 mg Amlodipine Besylate (Norvasc -) 2.5 mg PEG DAILY [facility] Last Admin: 10/26/17 11:00 Dose: 2.5 mg Folic Acid (Folic Acid -) 1 mg GT DAILY [facility] Last Admin: 10/26/17 11:00 Dose: 1 mg Heparin Sodium (Porcine) (Heparin -) 5,000 unit SQ BID [facility] Last Admin: 10/26/17 22:52 Dose: 5,000 unit Caspofungin 50 mg/ Sodium (Chloride) 250 mls @ 250 mls/hr IV DAILY [facility] Last Admin: 10/26/17 12:18 Dose: 250 mls/hr Vancomycin HCl 500 mg/ (Dextrose) 100 mls @ 100 mls/hr IVPB DAILY@1600 [facility] Last Admin: 10/26/17 16:37 Dose: 100 mls/hr Metoprolol Tartrate (Lopressor -) 50 mg PEG TID [facility] Last Admin: 10/26/17 22:53 Dose: 50 mg Nystatin (Mycolog -) 500,000 unit PO TID [facility] Last Admin: 10/26/17 22:54 Dose: Not Given Olanzapine (Zyprexa -) 2.5 mg PO BID [facility] Last Admin: 10/26/17 22:53 Dose: 2.5 mg Potassium Chloride (Potassium Chloride Oral Liquid) 40 meq PO DAILY [facility] Last Admin: 10/26/17 10:59 Dose: 40 meq Torsemide (Demadex -) 10 mg PO DAILY [facility] Last Admin: 10/26/17 11:00 Dose: 10 mg Last Vital Signs Temp Pulse Resp BP Pulse Ox 97.6 F 80 18 125/81 98 10/26/17 18:34 10/26/17 18:34 10/26/17 18:34 10/26/17 18:34 10/26/17 13:05 CBC, BMP 10/24/17 07:05 10/26/17 06:40 Plan - sodium is improved - renal function is improved - cont feeds - cxr reviewed - cont torsemide - trache care
[2017-10-27] MEDS: ALBUTEROL SO4 2.5/IPRATROPIUM 0.5 INH SOL 3 ML VIAL.NEB. NEB SCH ×5 (00:15→23:00)
[2017-10-27] MEDS: METOPROLOL TARTRATE 50 MG TABLET (FP) PEG SCH ×3 (06:44→22:52)
[2017-10-27] MEDS: NYSTATIN 500,000 UNITS TABLET PO SCH ×3 (06:44→22:52)
[2017-10-27 08:51] LABS: ALBUMIN 2.5 g/dl (3.4-5.0); ANION GAP 9 (8-16); CALCIUM 8.7 mg/dL (8.5-10.1); CO2 24 mmol/L (21-32); CREATININE 2.2 mg/dL (0.7-1.3); GLUCOSE,RANDOM 105 mg/dL (74-106); SGOT/AST 34 U/L (15-37); SGPT/ALT 35 U/L (12-78)
[2017-10-27 08:52] LABS: ALK PHOS 154 U/L (45-117); BILIRUBIN,TOTAL 0.4 mg/dL (0.2-1.0); TOT PROT 7.8 g/dl (6.4-8.2)
[2017-10-27 08:56] LABS: BASO % 0.8 % (0-2.0); EOS % 2.5 % (0-4.5); MCHC 33.9 g/dl (32.0-35.9); MEAN CELL VOLUME 88.3 fl (80-96); MEAN PLT VOLUME 7.8 fl (7.5-11.1); NEUT % 71.6 % (42.8-82.8); PLATELET COUNT 269 K/MM3 (134-434); RDW 16.5 % (11.9-15.9)
[2017-10-27] MEDS: amLODIPine BESYLATE 2.5 MG TABLET (FP) PEG SCH (10:38)
[2017-10-27] MEDS: POTASSIUM CHLORIDE ORAL LIQUID 20 MEQ/15 ML PO SCH (10:38)
[2017-10-27] MEDS: HEPARIN NA (PORCINE) 5,000 UNITS/ML 1ML VIAL SQ SCH ×2 (10:39→22:52)
[2017-10-27] MEDS: FOLIC ACID 1 MG TABLET (FP) GT SCH (10:39)
[2017-10-27] MEDS: AMIODARONE HCL 200 MG TABLET (FP) PEG SCH (10:39)
[2017-10-27] MEDS: OLANZapine 2.5 MG TABLET PO SCH ×2 (10:39→22:52)
[2017-10-27] MEDS: TORSEMIDE 10 MG TABLET PO SCH (10:42)
[2017-10-27] MEDS: ACETYLCYSTEINE 20% 200MG/ML 4 ML VIAL *FOR ORAL / INH USE ONLY NEB SCH ×2 (11:13→23:00)
[2017-10-27] MEDS: ALBUTEROL SO4 0.083% IH SOL 2.5 MG/3 ML VIAL.NEB. NEB PRN (11:13)
--- NOTE | 2017-10-27 11:26 | PN ---
Progress Note (short form) - Note Progress Note: awake and alert talking less agitated Vital Signs Period Temp Pulse Resp BP Sys/Jeff Pulse Ox Last 24 Hr 97.6 F-98.3 F 74-85 16-18 122-147/80-84 97-98 cor-rrr lungs bilateral rhonchi abd soft,nt +GT ext trace edema CBC, BMP 10/27/17 07:30 10/27/17 07:30 Microbiology 10/21/17 18:00 Blood - Peripheral Venous Blood Culture - Final NO GROWTH AFTER 5 DAYS INCUBATION 10/21/17 18:00 Blood - Peripheral Venous Blood Culture - Final NO GROWTH AFTER 5 DAYS INCUBATION 10/25/17 13:40 Blood - Peripheral Venous Blood Culture - Preliminary NO GROWTH OBTAINED AFTER 24 HOURS, INCUBATION TO CONTINUE FOR 4 DAYS. 10/25/17 13:40 Blood - Peripheral Venous Blood Culture - Preliminary NO GROWTH OBTAINED AFTER 24 HOURS, INCUBATION TO CONTINUE FOR 4 DAYS. 10/16/17 02:35 Blood - Peripheral Venous Yeast/Fungus Identification - Final Mary Glabrata 10/17/17 10:05 Blood - Peripheral Venous Blood Culture - Final NO GROWTH AFTER 5 DAYS INCUBATION 10/17/17 10:05 Blood - Peripheral Venous Blood Culture - Final Yeast Like Organism 10/16/17 02:35 Blood - Peripheral Venous Blood Culture - Final NO GROWTH AFTER 5 DAYS INCUBATION 10/17/17 06:00 Sputum - Endotrachea Suction/Ventilator Gram Stain - Final 10/17/17 06:00 Sputum - Endotrachea Suction/Ventilator Sputum Culture - Final NORMAL RESPIRATORY HERBER 10/16/17 02:30 Blood - Peripheral Venous Blood Culture - Preliminary Yeast Like Organism 10/15/17 22:45 Urine - Urine Freeman Urine Culture - Final NO GROWTH OBTAINED cxray - no change a/p fungemia- mary glabrata optho evaluation unremarkable echo noted-negative for vegetation cancidas day #10 alk phos continues to trend down MSSA bacteremia/vertebral osteo T9/T10 day #51 of 56 vanco trough in am ALEXANDRA ?ain-will d/w renal chronic respiratory failure-now off vent trach management per pulmonary
[2017-10-27] MEDS: CASPOFUNGIN ACETATE 50 MG in SODIUM CHLORIDE 250 ML IV SCH (12:33)
--- NOTE | 2017-10-27 13:13 | PN ---
Progress Note (short form) - Note Progress Note: PULMONARY Denies shortness of breath, voice strong. Last Vital Signs Temp Pulse Resp BP Pulse Ox 98.3 F 74 16 140/84 94 L 10/27/17 06:00 10/27/17 11:30 10/27/17 10:00 10/27/17 10:00 10/27/17 11:30 Gen: on trach collar, awake Heart: irregular Lung: decreased breath sounds at the bases Abd: soft, nontender Ext: no edema CBC, BMP 10/27/17 07:30 10/27/17 07:30 Active Medications Acetaminophen (Tylenol Oral Solution -) 650 mg GT Q6H PRN PRN Reason: FEVER OR PAIN Last Admin: 10/25/17 09:08 Dose: 650 mg Acetylcysteine (Mucomyst 20 Oral / Inh Use Only*) 400 mg NEB BID [facility] Last Admin: 10/27/17 11:13 Dose: 400 mg Albuterol Sulfate (Ventolin 0.083% Nebulizer Soln -) 1 amp NEB Q4H PRN PRN Reason: SHORT OF BREATH/WHEEZING Last Admin: 10/27/17 11:13 Dose: 1 amp Albuterol/Ipratropium (Duoneb -) 1 amp NEB QIDR [facility] Last Admin: 10/27/17 06:00 Dose: 1 amp Amiodarone HCl (Cordarone -) 200 mg PEG DAILY [facility] Last Admin: 10/27/17 10:39 Dose: 200 mg Amlodipine Besylate (Norvasc -) 2.5 mg PEG DAILY [facility] Last Admin: 10/27/17 10:38 Dose: 2.5 mg Folic Acid (Folic Acid -) 1 mg GT DAILY [facility] Last Admin: 10/27/17 10:39 Dose: 1 mg Heparin Sodium (Porcine) (Heparin -) 5,000 unit SQ BID [facility] Last Admin: 10/27/17 10:39 Dose: 5,000 unit Caspofungin 50 mg/ Sodium (Chloride) 250 mls @ 250 mls/hr IV DAILY [facility] Last Admin: 10/27/17 12:33 Dose: 250 mls/hr Vancomycin HCl 500 mg/ (Dextrose) 100 mls @ 100 mls/hr IVPB DAILY@1600 [facility] Last Admin: 10/26/17 16:37 Dose: 100 mls/hr Metoprolol Tartrate (Lopressor -) 50 mg PEG TID [facility] Last Admin: 10/27/17 06:44 Dose: 50 mg Nystatin (Mycolog -) 500,000 unit PO TID [facility] Last Admin: 10/27/17 06:44 Dose: Not Given Olanzapine (Zyprexa -) 2.5 mg PO BID [facility] Last Admin: 10/27/17 10:39 Dose: 2.5 mg Potassium Chloride (Potassium Chloride Oral Liquid) 40 meq PO DAILY [facility] Last Admin: 10/27/17 10:38 Dose: 40 meq Torsemide (Demadex -) 10 mg PO DAILY [facility] Last Admin: 10/27/17 10:42 Dose: 10 mg A/P Dislodged Tracheostomy Vent Dependent Chronic Respiratory Failure Fungemia Atrial Fibrillation with RVR Acute on Chronic Renal Failure Loculated Pleural Effusions Anemia - antibiotics/antifungals per ID - would leave trach as is since he is stable and has a strong voice - will consider decannulation tomorrow - PO as tolerated - DVT/GI prophylaxis
--- NOTE | 2017-10-27 14:25 | PN ---
Progress Note, Physician - Current Medication List Current Medications: Active Medications Acetaminophen (Tylenol Oral Solution -) 650 mg GT Q6H PRN PRN Reason: FEVER OR PAIN Last Admin: 10/25/17 09:08 Dose: 650 mg Acetylcysteine (Mucomyst 20 Oral / Inh Use Only*) 400 mg NEB BID [facility] Last Admin: 10/27/17 11:13 Dose: 400 mg Albuterol Sulfate (Ventolin 0.083% Nebulizer Soln -) 1 amp NEB Q4H PRN PRN Reason: SHORT OF BREATH/WHEEZING Last Admin: 10/27/17 11:13 Dose: 1 amp Albuterol/Ipratropium (Duoneb -) 1 amp NEB QIDR [facility] Last Admin: 10/27/17 06:00 Dose: 1 amp Amiodarone HCl (Cordarone -) 200 mg PEG DAILY [facility] Last Admin: 10/27/17 10:39 Dose: 200 mg Amlodipine Besylate (Norvasc -) 2.5 mg PEG DAILY [facility] Last Admin: 10/27/17 10:38 Dose: 2.5 mg Folic Acid (Folic Acid -) 1 mg GT DAILY [facility] Last Admin: 10/27/17 10:39 Dose: 1 mg Heparin Sodium (Porcine) (Heparin -) 5,000 unit SQ BID [facility] Last Admin: 10/27/17 10:39 Dose: 5,000 unit Caspofungin 50 mg/ Sodium (Chloride) 250 mls @ 250 mls/hr IV DAILY [facility] Last Admin: 10/27/17 12:33 Dose: 250 mls/hr Vancomycin HCl 500 mg/ (Dextrose) 100 mls @ 100 mls/hr IVPB DAILY@1600 [facility] Last Admin: 10/26/17 16:37 Dose: 100 mls/hr Metoprolol Tartrate (Lopressor -) 50 mg PEG TID [facility] Last Admin: 10/27/17 06:44 Dose: 50 mg Nystatin (Mycolog -) 500,000 unit PO TID [facility] Last Admin: 10/27/17 06:44 Dose: Not Given Olanzapine (Zyprexa -) 2.5 mg PO BID [facility] Last Admin: 10/27/17 10:39 Dose: 2.5 mg Potassium Chloride (Potassium Chloride Oral Liquid) 40 meq PO DAILY [facility] Last Admin: 10/27/17 10:38 Dose: 40 meq Torsemide (Demadex -) 10 mg PO DAILY [facility] Last Admin: 10/27/17 10:42 Dose: 10 mg - Objective Vital Signs: Vital Signs Temperature 98.3 F 10/27/17 06:00 Pulse Rate 74 10/27/17 11:30 Respiratory Rate 16 10/27/17 10:00 Blood Pressure 140/84 10/27/17 10:00 O2 Sat by Pulse Oximetry (%) 94 L 10/27/17 11:30 Cardiovascular: Yes: S1, S2 Respiratory: Yes: Regular, CTA Bilaterally, Other (TRACH) Gastrointestinal: Yes: Normal Bowel Sounds, Soft Labs: CBC, BMP 10/27/17 07:30 10/27/17 07:30 INR, PTT INR 1.11 (0.82-1.09) 10/15/17 21:16 Assessment/Plan - Problems (1) Acute and chronic respiratory failure Assessment/Plan: on med surg floor on trach collar---TRACH MALFUNCTION--SURGICAL CONSULT bronchodilators qid rafa rolf on the base passy holly valve as tolerated repeat MBS swallow test once patient consistently uses PMV Code(s): J96.20 - ACUTE AND CHR RESP FAILURE, UNSP W HYPOXIA OR HYPERCAPNIA Qualifiers: Respiratory failure complication: hypoxia and hypercapnia Qualified Code(s) : J96.21 - Acute and chronic respiratory failure with hypoxia; J96.22 - Acute and chronic respiratory failure with hypercapnia; J96.22 - Acute and chronic respiratory failure with hypercapnia; J96.22 - Acute and chronic respiratory failure with hypercapnia (2) Paroxysmal atrial fibrillation Assessment/Plan: continue amiodarone and metoprolol Code(s): I48.0 - PAROXYSMAL ATRIAL FIBRILLATION (3) Staphylococcus aureus bacteremia Assessment/Plan: on iv vancomycin for bacteremia with osteomylitis day 48 of 56 Code(s): R78.81 - BACTEREMIA (4) Fungemia Assessment/Plan: caspofungin optho eval pending- viviane call again echo Code(s): B49 - UNSPECIFIED MYCOSIS (5) Acute kidney injury Assessment/Plan: renal is on board on torsemide renal is on board Code(s): N17.9 - ACUTE KIDNEY FAILURE, UNSPECIFIED (6) Anemia Assessment/Plan: monitor h/h off AC given anemia transfuse if Hgb<8 gi Code(s): D64.9 - ANEMIA, UNSPECIFIED Qualifiers: Anemia type: unspecified type Qualified Code(s): D64.9 - Anemia, unspecified (7) Oral Thrush Assessment/Plan: [place]
[2017-10-27] MEDS: VANCOMYCIN 500 MG in DEXTROSE 5%-WATER - 100 ML IVPB SCH (15:48)
--- NOTE | 2017-10-27 17:53 | PN ---
Progress Note (short form) - Note Progress Note: 1. ALEXANDRA 2. fluid overload 3. hypoalbuminemia 4. respiratory failure requiring intubation 5. anemia 6. etoh abuse 7. fevers 8. hypokalemia 9. pleural effusion 10. hypernatremia 11. GI bleed 12. rash 13. a flutter Current Medications Acetaminophen (Tylenol Oral Solution -) 650 mg GT Q6H PRN PRN Reason: FEVER OR PAIN Last Admin: 10/25/17 09:08 Dose: 650 mg Acetylcysteine (Mucomyst 20 Oral / Inh Use Only*) 400 mg NEB BID [facility] Last Admin: 10/27/17 11:13 Dose: 400 mg Albuterol Sulfate (Ventolin 0.083% Nebulizer Soln -) 1 amp NEB Q4H PRN PRN Reason: SHORT OF BREATH/WHEEZING Last Admin: 10/27/17 11:13 Dose: 1 amp Albuterol/Ipratropium (Duoneb -) 1 amp NEB QIDR [facility] Last Admin: 10/27/17 13:00 Dose: 1 amp Amiodarone HCl (Cordarone -) 200 mg PEG DAILY [facility] Last Admin: 10/27/17 10:39 Dose: 200 mg Amlodipine Besylate (Norvasc -) 2.5 mg PEG DAILY [facility] Last Admin: 10/27/17 10:38 Dose: 2.5 mg Folic Acid (Folic Acid -) 1 mg GT DAILY [facility] Last Admin: 10/27/17 10:39 Dose: 1 mg Heparin Sodium (Porcine) (Heparin -) 5,000 unit SQ BID [facility] Last Admin: 10/27/17 10:39 Dose: 5,000 unit Caspofungin 50 mg/ Sodium (Chloride) 250 mls @ 250 mls/hr IV DAILY [facility] Last Admin: 10/27/17 12:33 Dose: 250 mls/hr Vancomycin HCl 500 mg/ (Dextrose) 100 mls @ 100 mls/hr IVPB DAILY@1600 [facility] Last Admin: 10/27/17 15:48 Dose: 100 mls/hr Metoprolol Tartrate (Lopressor -) 50 mg PEG TID [facility] Last Admin: 10/27/17 14:54 Dose: 50 mg Nystatin (Mycolog -) 500,000 unit PO TID [facility] Last Admin: 10/27/17 14:55 Dose: Not Given Olanzapine (Zyprexa -) 2.5 mg PO BID [facility] Last Admin: 10/27/17 10:39 Dose: 2.5 mg Potassium Chloride (Potassium Chloride Oral Liquid) 40 meq PO DAILY [facility] Last Admin: 10/27/17 10:38 Dose: 40 meq Torsemide (Demadex -) 10 mg PO DAILY [facility] Last Admin: 10/27/17 10:42 Dose: 10 mg Last Vital Signs Temp Pulse Resp BP Pulse Ox 98.4 F 77 16 122/68 94 L 10/27/17 14:31 10/27/17 14:31 10/27/17 10:00 10/27/17 14:31 10/27/17 11:30 poorly lungs clear heart reg abd soft ext CBC, BMP 10/27/17 07:30 10/27/17 07:30 IMP s/p hypernatremia improving will decrease free water via ngt Plan decrease free water via gt - sodium is improved - renal function is improved - cont feeds - cxr reviewed - cont torsemide - trache care
[2017-10-28] MEDS: NYSTATIN 500,000 UNITS TABLET PO SCH ×3 (06:10→21:54)
[2017-10-28] MEDS: METOPROLOL TARTRATE 50 MG TABLET (FP) PEG SCH ×3 (06:10→21:54)
[2017-10-28] MEDS: ALBUTEROL SO4 2.5/IPRATROPIUM 0.5 INH SOL 3 ML VIAL.NEB. NEB SCH ×3 (06:29→18:16)
[2017-10-28] MEDS ORDERED: PT OWN MED DRAWER 7, Y5N ONE ×2 (08:44→16:34)
[2017-10-28] MEDS: ACETYLCYSTEINE 20% 200MG/ML 4 ML VIAL *FOR ORAL / INH USE ONLY NEB SCH (10:05)
[2017-10-28] MEDS: ALBUTEROL SO4 0.083% IH SOL 2.5 MG/3 ML VIAL.NEB. NEB PRN (10:05)
[2017-10-28] MEDS: CASPOFUNGIN ACETATE 50 MG in SODIUM CHLORIDE 250 ML IV SCH (10:47)
--- NOTE | 2017-10-28 10:49 | PN ---
Progress Note, Physician Chief Complaint: awake in bed talking awaiting for dr bryant to come and address the trach issue - Current Medication List Current Medications: Active Medications Acetaminophen (Tylenol Oral Solution -) 650 mg GT Q6H PRN PRN Reason: FEVER OR PAIN Last Admin: 10/25/17 09:08 Dose: 650 mg Acetylcysteine (Mucomyst 20 Oral / Inh Use Only*) 400 mg NEB BID [facility] Last Admin: 10/27/17 23:00 Dose: 400 mg Albuterol Sulfate (Ventolin 0.083% Nebulizer Soln -) 1 amp NEB Q4H PRN PRN Reason: SHORT OF BREATH/WHEEZING Last Admin: 10/27/17 11:13 Dose: 1 amp Albuterol/Ipratropium (Duoneb -) 1 amp NEB QIDR [facility] Last Admin: 10/28/17 06:29 Dose: 1 amp Amiodarone HCl (Cordarone -) 200 mg PEG DAILY [facility] Last Admin: 10/27/17 10:39 Dose: 200 mg Amlodipine Besylate (Norvasc -) 2.5 mg PEG DAILY [facility] Last Admin: 10/27/17 10:38 Dose: 2.5 mg Folic Acid (Folic Acid -) 1 mg GT DAILY [facility] Last Admin: 10/27/17 10:39 Dose: 1 mg Heparin Sodium (Porcine) (Heparin -) 5,000 unit SQ BID [facility] Last Admin: 10/27/17 22:52 Dose: 5,000 unit Caspofungin 50 mg/ Sodium (Chloride) 250 mls @ 250 mls/hr IV DAILY [facility] Last Admin: 10/27/17 12:33 Dose: 250 mls/hr Vancomycin HCl 500 mg/ (Dextrose) 100 mls @ 100 mls/hr IVPB DAILY@1600 [facility] Last Admin: 10/27/17 15:48 Dose: 100 mls/hr Metoprolol Tartrate (Lopressor -) 50 mg PEG TID [facility] Last Admin: 10/28/17 06:10 Dose: 50 mg Nystatin (Mycolog -) 500,000 unit PO TID [facility] Last Admin: 10/28/17 06:10 Dose: Not Given Olanzapine (Zyprexa -) 2.5 mg PO BID [facility] Last Admin: 10/27/17 22:52 Dose: 2.5 mg Potassium Chloride (Potassium Chloride Oral Liquid) 40 meq PO DAILY [facility] Last Admin: 10/27/17 10:38 Dose: 40 meq Torsemide (Demadex -) 10 mg PO DAILY [facility] Last Admin: 10/27/17 10:42 Dose: 10 mg - Objective Vital Signs: Vital Signs Temperature 97.9 F 10/28/17 06:00 Pulse Rate 75 10/28/17 06:00 Respiratory Rate 18 10/28/17 06:00 Blood Pressure 129/62 10/28/17 06:00 O2 Sat by Pulse Oximetry (%) 97 10/27/17 21:00 Constitutional: Yes: Calm Neck: Yes: Other (trach) Cardiovascular: Yes: Regular Rate and Rhythm, S1, S2 Respiratory: Yes: CTA Bilaterally Gastrointestinal: Yes: Normal Bowel Sounds, Soft Edema: No Labs: CBC, BMP 10/27/17 07:30 10/27/17 07:30 INR, PTT INR 1.11 (0.82-1.09) 10/15/17 21:16 Problem List - Problems (1) Acute and chronic respiratory failure Assessment/Plan: on med surg floor on trach collar- dr bryant to come today to address problem with dislocated trach tube bronchodilator as needed paussy holly valve as tolerated repeat MBS swallow test once patient consistently uses PMV Code(s): J96.20 - ACUTE AND CHR RESP FAILURE, UNSP W HYPOXIA OR HYPERCAPNIA Qualifiers: Respiratory failure complication: hypoxia and hypercapnia Qualified Code(s) : J96.21 - Acute and chronic respiratory failure with hypoxia; J96.22 - Acute and chronic respiratory failure with hypercapnia; J96.22 - Acute and chronic respiratory failure with hypercapnia; J96.22 - Acute and chronic respiratory failure with hypercapnia (2) Paroxysmal atrial fibrillation Assessment/Plan: continue amiodarone and metoprolol Code(s): I48.0 - PAROXYSMAL ATRIAL FIBRILLATION (3) Staphylococcus aureus bacteremia Assessment/Plan: on iv vancomycin for bacteremia with osteomylitis day 52 of 56 Code(s): R78.81 - BACTEREMIA (4) Fungemia Assessment/Plan: pungemia day 11 of abx optho consult noted echo no vegetations Microbiology 10/16/17 02:35 Blood - Peripheral Venous Yeast/Fungus Identification - Final Mary Glabrata Code(s): B49 - UNSPECIFIED MYCOSIS (5) Acute kidney injury Assessment/Plan: renal is on board on torsemide renal is on board Code(s): N17.9 - ACUTE KIDNEY FAILURE, UNSPECIFIED (6) Anemia Assessment/Plan: repeat h/h today- pending off AC given anemia transfuse if Hgb<8 Code(s): D64.9 - ANEMIA, UNSPECIFIED Qualifiers: Anemia type: unspecified type Qualified Code(s): D64.9 - Anemia, unspecified
[2017-10-28] MEDS: FOLIC ACID 1 MG TABLET (FP) GT SCH (10:51)
[2017-10-28] MEDS: AMIODARONE HCL 200 MG TABLET (FP) PEG SCH (10:51)
[2017-10-28] MEDS: amLODIPine BESYLATE 2.5 MG TABLET (FP) PEG SCH (10:51)
[2017-10-28] MEDS: OLANZapine 2.5 MG TABLET PO SCH ×2 (10:51→21:54)
[2017-10-28] MEDS: TORSEMIDE 10 MG TABLET PO SCH (10:52)
[2017-10-28] MEDS: POTASSIUM CHLORIDE ORAL LIQUID 20 MEQ/15 ML PO SCH (10:54)
--- NOTE | 2017-10-28 11:45 | PN ---
Progress Note, Physician History of Present Illness: No events. Awake, alert. Hgb 8. No gross bleeding, melena - Current Medication List Current Medications: Active Medications Acetaminophen (Tylenol Oral Solution -) 650 mg GT Q6H PRN PRN Reason: FEVER OR PAIN Last Admin: 10/25/17 09:08 Dose: 650 mg Acetylcysteine (Mucomyst 20 Oral / Inh Use Only*) 400 mg NEB BID [facility] Last Admin: 10/27/17 23:00 Dose: 400 mg Albuterol Sulfate (Ventolin 0.083% Nebulizer Soln -) 1 amp NEB Q4H PRN PRN Reason: SHORT OF BREATH/WHEEZING Last Admin: 10/27/17 11:13 Dose: 1 amp Albuterol/Ipratropium (Duoneb -) 1 amp NEB QIDR [facility] Last Admin: 10/28/17 06:29 Dose: 1 amp Amiodarone HCl (Cordarone -) 200 mg PEG DAILY [facility] Last Admin: 10/28/17 10:51 Dose: 200 mg Amlodipine Besylate (Norvasc -) 2.5 mg PEG DAILY [facility] Last Admin: 10/28/17 10:51 Dose: 2.5 mg Folic Acid (Folic Acid -) 1 mg GT DAILY [facility] Last Admin: 10/28/17 10:51 Dose: 1 mg Heparin Sodium (Porcine) (Heparin -) 5,000 unit SQ BID [facility] Last Admin: 10/27/17 22:52 Dose: 5,000 unit Caspofungin 50 mg/ Sodium (Chloride) 250 mls @ 250 mls/hr IV DAILY [facility] Last Admin: 10/28/17 10:47 Dose: 250 mls/hr Vancomycin HCl 500 mg/ (Dextrose) 100 mls @ 100 mls/hr IVPB DAILY@1600 [facility] Last Admin: 10/27/17 15:48 Dose: 100 mls/hr Metoprolol Tartrate (Lopressor -) 50 mg PEG TID [facility] Last Admin: 10/28/17 06:10 Dose: 50 mg Nystatin (Mycolog -) 500,000 unit PO TID [facility] Last Admin: 10/28/17 06:10 Dose: Not Given Olanzapine (Zyprexa -) 2.5 mg PO BID [facility] Last Admin: 10/28/17 10:51 Dose: 2.5 mg Potassium Chloride (Potassium Chloride Oral Liquid) 40 meq PO DAILY [facility] Last Admin: 10/28/17 10:54 Dose: 40 meq Torsemide (Demadex -) 10 mg PO DAILY [facility] Last Admin: 10/28/17 10:52 Dose: 10 mg - Objective Vital Signs: Vital Signs Temperature 97.9 F 10/28/17 06:00 Pulse Rate 75 10/28/17 06:00 Respiratory Rate 18 10/28/17 06:00 Blood Pressure 129/62 10/28/17 06:00 O2 Sat by Pulse Oximetry (%) 97 10/27/17 21:00 Constitutional: Yes: No Distress, Calm Eyes: Yes: Conjunctiva Clear HENT: Yes: Atraumatic Neck: Yes: Supple Gastrointestinal: Yes: Soft. No: Melena, Rectal Bleeding, Tenderness Neurological: Yes: Alert Labs: CBC, BMP 10/27/17 07:30 10/27/17 07:30 INR, PTT INR 1.11 (0.82-1.09) 10/15/17 21:16 Problem List - Problems (1) Acute and chronic respiratory failure Code(s): J96.20 - ACUTE AND CHR RESP FAILURE, UNSP W HYPOXIA OR HYPERCAPNIA Qualifiers: Respiratory failure complication: hypoxia and hypercapnia Qualified Code(s) : J96.21 - Acute and chronic respiratory failure with hypoxia; J96.22 - Acute and chronic respiratory failure with hypercapnia; J96.22 - Acute and chronic respiratory failure with hypercapnia; J96.22 - Acute and chronic respiratory failure with hypercapnia (2) Abuse, drug or alcohol Code(s): F19.10 - OTHER PSYCHOACTIVE SUBSTANCE ABUSE, UNCOMPLICATED (3) Acute diastolic heart failure Code(s): I50.31 - ACUTE DIASTOLIC (CONGESTIVE) HEART FAILURE (4) Alkaline phosphatase elevation Code(s): R74.8 - ABNORMAL LEVELS OF OTHER SERUM ENZYMES (5) Anemia Code(s): D64.9 - ANEMIA, UNSPECIFIED Qualifiers: Anemia type: unspecified type Qualified Code(s): D64.9 - Anemia, unspecified (6) Rectal ulcer Code(s): K62.6 - ULCER OF ANUS AND RECTUM Assessment/Plan Discussed with pt's nurse. No signs of GI bleeding Will continue to monitor closely Colonoscopy before d/c
[2017-10-28 12:07] LABS: BASO % 0.8 % (0-2.0); EOS % 2.2 % (0-4.5); MCH 29.7 pg (25.7-33.7); MCHC 33.6 g/dl (32.0-35.9); MEAN CELL VOLUME 88.5 fl (80-96); MEAN PLT VOLUME 7.6 fl (7.5-11.1); NEUT % 71.3 % (42.8-82.8); PLATELET COUNT 293 K/MM3 (134-434); RDW 16.1 % (11.9-15.9); WHITE BLOOD COUNT 8.7 K/mm3 (4.0-10.0)
--- NOTE | 2017-10-28 12:07 | PN ---
Progress Note (short form) - Note Progress Note: PULMONARY Denies shortness of breath, voice strong, has good cough. Last Vital Signs Temp Pulse Resp BP Pulse Ox 97.9 F 75 18 129/62 97 10/28/17 06:00 10/28/17 06:00 10/28/17 06:00 10/28/17 06:00 10/27/17 21:00 Gen: on trach collar, awake Heart: irregular Lung: decreased breath sounds at the bases Abd: soft, nontender Ext: no edema CBC, BMP 10/27/17 07:30 Active Medications Acetaminophen (Tylenol Oral Solution -) 650 mg GT Q6H PRN PRN Reason: FEVER OR PAIN Last Admin: 10/25/17 09:08 Dose: 650 mg Acetylcysteine (Mucomyst 20 Oral / Inh Use Only*) 400 mg NEB BID [facility] Last Admin: 10/27/17 23:00 Dose: 400 mg Albuterol Sulfate (Ventolin 0.083% Nebulizer Soln -) 1 amp NEB Q4H PRN PRN Reason: SHORT OF BREATH/WHEEZING Last Admin: 10/27/17 11:13 Dose: 1 amp Albuterol/Ipratropium (Duoneb -) 1 amp NEB QIDR [facility] Last Admin: 10/28/17 06:29 Dose: 1 amp Amiodarone HCl (Cordarone -) 200 mg PEG DAILY [facility] Last Admin: 10/28/17 10:51 Dose: 200 mg Amlodipine Besylate (Norvasc -) 2.5 mg PEG DAILY [facility] Last Admin: 10/28/17 10:51 Dose: 2.5 mg Folic Acid (Folic Acid -) 1 mg GT DAILY [facility] Last Admin: 10/28/17 10:51 Dose: 1 mg Heparin Sodium (Porcine) (Heparin -) 5,000 unit SQ BID [facility] Last Admin: 10/27/17 22:52 Dose: 5,000 unit Caspofungin 50 mg/ Sodium (Chloride) 250 mls @ 250 mls/hr IV DAILY [facility] Last Admin: 10/28/17 10:47 Dose: 250 mls/hr Vancomycin HCl 500 mg/ (Dextrose) 100 mls @ 100 mls/hr IVPB DAILY@1600 [facility] Last Admin: 10/27/17 15:48 Dose: 100 mls/hr Metoprolol Tartrate (Lopressor -) 50 mg PEG TID [facility] Last Admin: 10/28/17 06:10 Dose: 50 mg Nystatin (Mycolog -) 500,000 unit PO TID [facility] Last Admin: 10/28/17 06:10 Dose: Not Given Olanzapine (Zyprexa -) 2.5 mg PO BID [facility] Last Admin: 10/28/17 10:51 Dose: 2.5 mg Potassium Chloride (Potassium Chloride Oral Liquid) 40 meq PO DAILY [facility] Last Admin: 10/28/17 10:54 Dose: 40 meq Torsemide (Demadex -) 10 mg PO DAILY [facility] Last Admin: 10/28/17 10:52 Dose: 10 mg A/P Dislodged Tracheostomy Vent Dependent Chronic Respiratory Failure improving Fungemia Atrial Fibrillation with RVR Acute on Chronic Renal Failure Loculated Pleural Effusions Anemia - antibiotics/antifungals per ID - discussed with surgery, will either decannulate or downsize - size 6.0 trach to bedside - PO as tolerated - DVT/GI prophylaxis
--- NOTE | 2017-10-28 12:20 | PN ---
Progress Note, Physician History of Present Illness: Pt seen and examined at bedside. He is awake and appears comfortable. - Current Medication List Current Medications: Active Medications Acetaminophen (Tylenol Oral Solution -) 650 mg GT Q6H PRN PRN Reason: FEVER OR PAIN Last Admin: 10/25/17 09:08 Dose: 650 mg Albuterol Sulfate (Ventolin 0.083% Nebulizer Soln -) 1 amp NEB Q4H PRN PRN Reason: SHORT OF BREATH/WHEEZING Last Admin: 10/27/17 11:13 Dose: 1 amp Albuterol/Ipratropium (Duoneb -) 1 amp NEB QIDR [facility] Last Admin: 10/28/17 06:29 Dose: 1 amp Amiodarone HCl (Cordarone -) 200 mg PEG DAILY [facility] Last Admin: 10/28/17 10:51 Dose: 200 mg Amlodipine Besylate (Norvasc -) 2.5 mg PEG DAILY [facility] Last Admin: 10/28/17 10:51 Dose: 2.5 mg Folic Acid (Folic Acid -) 1 mg GT DAILY [facility] Last Admin: 10/28/17 10:51 Dose: 1 mg Heparin Sodium (Porcine) (Heparin -) 5,000 unit SQ BID [facility] Last Admin: 10/27/17 22:52 Dose: 5,000 unit Caspofungin 50 mg/ Sodium (Chloride) 250 mls @ 250 mls/hr IV DAILY [facility] Last Admin: 10/28/17 10:47 Dose: 250 mls/hr Vancomycin HCl 500 mg/ (Dextrose) 100 mls @ 100 mls/hr IVPB DAILY@1600 [facility] Last Admin: 10/27/17 15:48 Dose: 100 mls/hr Metoprolol Tartrate (Lopressor -) 50 mg PEG TID [facility] Last Admin: 10/28/17 06:10 Dose: 50 mg Nystatin (Mycolog -) 500,000 unit PO TID [facility] Last Admin: 10/28/17 06:10 Dose: Not Given Olanzapine (Zyprexa -) 2.5 mg PO BID [facility] Last Admin: 10/28/17 10:51 Dose: 2.5 mg Potassium Chloride (Potassium Chloride Oral Liquid) 40 meq PO DAILY [facility] Last Admin: 10/28/17 10:54 Dose: 40 meq Torsemide (Demadex -) 10 mg PO DAILY [facility] Last Admin: 10/28/17 10:52 Dose: 10 mg - Objective Vital Signs: Vital Signs Temperature 97.9 F 10/28/17 06:00 Pulse Rate 75 10/28/17 06:00 Respiratory Rate 18 10/28/17 06:00 Blood Pressure 129/62 10/28/17 06:00 O2 Sat by Pulse Oximetry (%) 97 10/27/17 21:00 Constitutional: Yes: Calm Eyes: Yes: Conjunctiva Clear HENT: Yes: Atraumatic Cardiovascular: Yes: S1, S2 Respiratory: Yes: Other (trache) Gastrointestinal: Yes: Soft, Other (peg) Genitourinary: Yes: Incontinence Musculoskeletal: Yes: WNL Extremities: Yes: WNL Edema: No Neurological: Yes: Oriented Psychiatric: Yes: Oriented Labs: CBC, BMP 10/28/17 12:00 10/27/17 07:30 INR, PTT INR 1.11 (0.82-1.09) 10/15/17 21:16 Problem List - Problems (1) Acute and chronic respiratory failure Code(s): J96.20 - ACUTE AND CHR RESP FAILURE, UNSP W HYPOXIA OR HYPERCAPNIA Qualifiers: Respiratory failure complication: hypoxia and hypercapnia Qualified Code(s) : J96.21 - Acute and chronic respiratory failure with hypoxia; J96.22 - Acute and chronic respiratory failure with hypercapnia; J96.22 - Acute and chronic respiratory failure with hypercapnia; J96.22 - Acute and chronic respiratory failure with hypercapnia (2) Agitation Code(s): R45.1 - RESTLESSNESS AND AGITATION (3) Atrial flutter by electrocardiogram Code(s): I48.92 - UNSPECIFIED ATRIAL FLUTTER (4) Respiratory distress Code(s): R06.03 - ACUTE RESPIRATORY DISTRESS (5) Acute kidney injury Code(s): N17.9 - ACUTE KIDNEY FAILURE, UNSPECIFIED (6) Anemia Code(s): D64.9 - ANEMIA, UNSPECIFIED Qualifiers: Anemia type: unspecified type Qualified Code(s): D64.9 - Anemia, unspecified Assessment/Plan Current Medications Generic Name Dose Route Start Last Admin Trade Name Freq PRN Reason Stop Dose Admin Acetaminophen 650 mg 10/19/17 03:41 10/25/17 09:08 Tylenol Oral Solution - GT 650 mg Q6H PRN Administration FEVER OR PAIN Albuterol Sulfate 1 amp 10/24/17 09:32 12/10/17 11:13 Ventolin 0.083% Nebulizer Soln - NEB 1 amp Q4H PRN Administration SHORT OF BREATH/WHEEZING Albuterol/Ipratropium 1 amp 10/25/17 12:00 10/28/17 06:29 Duoneb - NEB 1 amp QIDR [facility] Administration Amiodarone HCl 200 mg 10/19/17 10:00 10/28/17 10:51 Cordarone - PEG 200 mg DAILY [facility] Administration Amlodipine Besylate 2.5 mg 10/20/17 11:15 10/28/17 10:51 Norvasc - PEG 2.5 mg DAILY [facility] Administration Folic Acid 1 mg 10/19/17 10:00 10/28/17 10:51 Folic Acid - GT 1 mg DAILY [facility] Administration Heparin Sodium (Porcine) 5,000 unit 10/26/17 12:30 10/27/17 22:52 Heparin - SQ 5,000 unit BID [facility] Administration Caspofungin 50 mg/ Sodium 250 mls @ 250 mls/hr 10/19/17 10:00 10/28/17 10:47 Chloride IV 250 mls/hr DAILY [facility] Administration Vancomycin HCl 500 mg/ 100 mls @ 100 mls/hr 10/22/17 16:00 10/27/17 15:48 Dextrose IVPB 100 mls/hr DAILY@1600 [facility] Administration Metoprolol Tartrate 50 mg 10/19/17 06:00 10/28/17 06:10 Lopressor - PEG 50 mg TID [facility] Administration Nystatin 500,000 unit 10/26/17 14:00 10/28/17 06:10 Mycolog - PO Not Given TID [facility] Olanzapine 2.5 mg 10/19/17 10:00 10/28/17 10:51 Zyprexa - PO 2.5 mg BID [facility] Administration Potassium Chloride 40 meq 10/22/17 10:00 10/28/17 10:54 Potassium Chloride Oral Liquid PO 40 meq DAILY [facility] Administration Torsemide 10 mg 10/21/17 13:07 10/28/17 10:52 Demadex - PO 10 mg DAILY [facility] Administration Impression 1. ALEXANDRA 2. fluid overload 3. hypoalbuminemia 4. respiratory failure requiring intubation 5. anemia 6. etoh abuse 7. fevers 8. hypokalemia 9. pleural effusion 10. hypernatremia 11. GI bleed 12. rash 13. a flutter 14. fungemia Plan - labs reviewed from yesterday - sodium stable - renal function has also stabilized - cont torsemide - ALEXANDRA likely from ATN that is slowly resolving - check bmp in am - trache care Dr Peres
--- NOTE | 2017-10-28 12:58 | PN ---
Progress Note, Physician History of Present Illness: Comfortable off vent on trach collar, denies dyspnea. - Current Medication List Current Medications: Active Medications Acetaminophen (Tylenol Oral Solution -) 650 mg GT Q6H PRN PRN Reason: FEVER OR PAIN Last Admin: 10/25/17 09:08 Dose: 650 mg Albuterol Sulfate (Ventolin 0.083% Nebulizer Soln -) 1 amp NEB Q4H PRN PRN Reason: SHORT OF BREATH/WHEEZING Last Admin: 10/28/17 10:05 Dose: 1 amp Albuterol/Ipratropium (Duoneb -) 1 amp NEB QIDR [facility] Last Admin: 10/28/17 11:45 Dose: 1 amp Amiodarone HCl (Cordarone -) 200 mg PEG DAILY [facility] Last Admin: 10/28/17 10:51 Dose: 200 mg Amlodipine Besylate (Norvasc -) 2.5 mg PEG DAILY [facility] Last Admin: 10/28/17 10:51 Dose: 2.5 mg Folic Acid (Folic Acid -) 1 mg GT DAILY [facility] Last Admin: 10/28/17 10:51 Dose: 1 mg Heparin Sodium (Porcine) (Heparin -) 5,000 unit SQ BID [facility] Last Admin: 10/27/17 22:52 Dose: 5,000 unit Caspofungin 50 mg/ Sodium (Chloride) 250 mls @ 250 mls/hr IV DAILY [facility] Last Admin: 10/28/17 10:47 Dose: 250 mls/hr Vancomycin HCl 500 mg/ (Dextrose) 100 mls @ 100 mls/hr IVPB DAILY@1600 [facility] Last Admin: 10/27/17 15:48 Dose: 100 mls/hr Metoprolol Tartrate (Lopressor -) 50 mg PEG TID [facility] Last Admin: 10/28/17 06:10 Dose: 50 mg Nystatin (Mycolog -) 500,000 unit PO TID [facility] Last Admin: 10/28/17 06:10 Dose: Not Given Olanzapine (Zyprexa -) 2.5 mg PO BID [facility] Last Admin: 10/28/17 10:51 Dose: 2.5 mg Potassium Chloride (Potassium Chloride Oral Liquid) 40 meq PO DAILY [facility] Last Admin: 10/28/17 10:54 Dose: 40 meq Torsemide (Demadex -) 10 mg PO DAILY [facility] Last Admin: 10/28/17 10:52 Dose: 10 mg - Objective Vital Signs: Vital Signs Temperature 97.9 F 10/28/17 06:00 Pulse Rate 71 10/28/17 10:10 Respiratory Rate 18 10/28/17 06:00 Blood Pressure 129/62 10/28/17 06:00 O2 Sat by Pulse Oximetry (%) 100 10/28/17 10:10 Constitutional: Yes: No Distress, Calm HENT: Yes: Other (Tracheostomy) Neck: Yes: Supple Cardiovascular: Yes: Regular Rate and Rhythm Respiratory: Yes: Regular, Diminished Gastrointestinal: Yes: Normal Bowel Sounds, Soft Edema: No Labs: CBC, BMP 10/28/17 12:00 10/27/17 07:30 INR, PTT INR 1.11 (0.82-1.09) 10/15/17 21:16 Problem List - Problems (1) Acute and chronic respiratory failure Code(s): J96.20 - ACUTE AND CHR RESP FAILURE, UNSP W HYPOXIA OR HYPERCAPNIA Qualifiers: Qualified Code(s): J96.21 - Acute and chronic respiratory failure with hypoxia; J96.22 - Acute and chronic respiratory failure with hypercapnia; J96.22 - Acute and chronic respiratory failure with hypercapnia; J96.22 - Acute and chronic respiratory failure with hypercapnia (2) Agitation Code(s): R45.1 - RESTLESSNESS AND AGITATION (3) Acute kidney injury Code(s): N17.9 - ACUTE KIDNEY FAILURE, UNSPECIFIED (4) Alkaline phosphatase elevation Code(s): R74.8 - ABNORMAL LEVELS OF OTHER SERUM ENZYMES (5) Anemia Code(s): D64.9 - ANEMIA, UNSPECIFIED Qualifiers: Qualified Code(s): D64.9 - Anemia, unspecified (6) Paroxysmal atrial fibrillation Code(s): I48.0 - PAROXYSMAL ATRIAL FIBRILLATION (7) Status post insertion of percutaneous endoscopic gastrostomy (PEG) tube Code(s): Z93.1 - GASTROSTOMY STATUS (8) Status post tracheostomy Code(s): Z93.0 - TRACHEOSTOMY STATUS (9) Acute diastolic heart failure Code(s): I50.31 - ACUTE DIASTOLIC (CONGESTIVE) HEART FAILURE (10) Fungemia Code(s): B49 - UNSPECIFIED MYCOSIS (11) Tracheostomy malfunction Code(s): J95.03 - MALFUNCTION OF TRACHEOSTOMY STOMA Assessment/Plan 1. Fungemia vs colonization 2. 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 Blackwell. 3. Chronic respiratory failure, with dislodged tracheotomy 4. History of cavitating pneumonia, MSSA bacteremia, post septic shock no evidence of endocarditis by ALISA criteria 5. History of diastolic LV dysfunction with class I-II NYHA congestive heart failure, compensated/euvolemic 6. History of osteomyelitis T9-T10 discitis 7. History of loculated pleural effusion post chest tube insertion 8. History of alcohol dependence 9. Acute on chronic renal insufficiency 10. Anemia 11. Hypokalemia 12. Hypernatremia PLAN: 1. Continue Lopressor 50 tid via PEG 2. Continue Amiodarone 200 qd via PEG 3. Continue Norvasc 2.5 qd and Demadex 10 qd 4. Defer assisted A/C considering his presentation and co-morbidities 5. Consider transfusion to maintain Hgb equal or > 8.0 6. Monitor electrolytes, PMV as tolerated, enteral feeds, DVT and GI prophylaxis 7. Antifungal and abx course as per ID service with monitor surveillance cx 8. Plan for decannulate or downsize tracheostomy
--- NOTE | 2017-10-28 12:59 | PN ---
Progress Note (short form) - Note Progress Note: awake and alert watching tv wants to eat Vital Signs Period Temp Pulse Resp BP Sys/Jeff Pulse Ox Last 24 Hr 97.9 F-98.4 F 71-77 18-20 116-130/62-83 97-100 cor-rrr lungs decreased bs at bases abd soft, nt +gt ext no edema CBC, BMP 10/28/17 12:00 10/27/17 07:30 cxray - no change a/p fungemia- pilar glabrata optho evaluation unremarkable echo noted-negative for vegetation cancidas day #10/01 alk phos continues to trend down MSSA bacteremia/vertebral osteo T9/T10 day #52 of 56 vanco trough in am ALEXANDRA ?ain-will d/w renal chronic respiratory failure-now off vent trach management per pulmonary
--- NOTE | 2017-10-28 15:53 | CONSULT ---
Consult - text type - Consultation Consultation Note: Thoracic Surgery: Pt seen/examined. Much stronger. Strong voice, good cough. PE: trach partially out. Discussed with patient. Removed/decannulated. Pt tolerated well. Strong voice and cough after.
[2017-10-28] MEDS: VANCOMYCIN 500 MG in DEXTROSE 5%-WATER - 100 ML IVPB SCH (18:10)
--- NOTE | 2017-10-28 18:49 | PN ---
Progress Note, NEWSPAPER COPY EDITOR - Note Progress Note: Decannulated with strong euphonic voice!! Selected Entries 10/28/17 10/28/17 10/28/17 06:00 09:00 11:26 Breakfast NPO Temperature 97.9 F 97.7 F 10/28/17 14:42 Breakfast Temperature 97.8 F Laboratory Tests 10/28/17 12:00 WBC 8.7 Repeat MBS ordered to assess present swallowing function.
[2017-10-28] MEDS: HEPARIN NA (PORCINE) 5,000 UNITS/ML 1ML VIAL SQ SCH (23:20)
[2017-10-29] MEDS: ALBUTEROL SO4 2.5/IPRATROPIUM 0.5 INH SOL 3 ML VIAL.NEB. NEB SCH ×4 (06:00→18:51)
[2017-10-29] MEDS: METOPROLOL TARTRATE 50 MG TABLET (FP) PEG SCH ×3 (06:29→23:34)
[2017-10-29] MEDS: NYSTATIN 500,000 UNITS TABLET PO SCH ×3 (06:29→23:34)
[2017-10-29 08:02] LABS: ANION GAP 11 (8-16); CALCIUM 9.2 mg/dL (8.5-10.1); CO2 25 mmol/L (21-32); GLUCOSE,RANDOM 105 mg/dL (74-106)
--- NOTE | 2017-10-29 10:00 | PN ---
Progress Note, Physician Chief Complaint: Anemia, Respiratory failure, s/p Fall History of Present Illness: NAD, tracheotomy stoma covered breathing and talking well with mouth seen by Speech therapy Barium swallow pending - Current Medication List Current Medications: Active Medications Acetaminophen (Tylenol Oral Solution -) 650 mg GT Q6H PRN PRN Reason: FEVER OR PAIN Last Admin: 10/25/17 09:08 Dose: 650 mg Albuterol Sulfate (Ventolin 0.083% Nebulizer Soln -) 1 amp NEB Q4H PRN PRN Reason: SHORT OF BREATH/WHEEZING Last Admin: 10/28/17 10:05 Dose: 1 amp Albuterol/Ipratropium (Duoneb -) 1 amp NEB QIDR [facility] Last Admin: 10/29/17 06:00 Dose: 1 amp Amiodarone HCl (Cordarone -) 200 mg PEG DAILY [facility] Last Admin: 10/28/17 10:51 Dose: 200 mg Amlodipine Besylate (Norvasc -) 2.5 mg PEG DAILY [facility] Last Admin: 10/28/17 10:51 Dose: 2.5 mg Folic Acid (Folic Acid -) 1 mg GT DAILY [facility] Last Admin: 10/28/17 10:51 Dose: 1 mg Heparin Sodium (Porcine) (Heparin -) 5,000 unit SQ BID [facility] Last Admin: 10/28/17 23:20 Dose: 5,000 unit Caspofungin 50 mg/ Sodium (Chloride) 250 mls @ 250 mls/hr IV DAILY [facility] Last Admin: 10/28/17 10:47 Dose: 250 mls/hr Vancomycin HCl 500 mg/ (Dextrose) 100 mls @ 100 mls/hr IVPB DAILY@1600 [facility] Last Admin: 10/28/17 18:10 Dose: 100 mls/hr Metoprolol Tartrate (Lopressor -) 50 mg PEG TID [facility] Last Admin: 10/29/17 06:29 Dose: 50 mg Nystatin (Mycolog -) 500,000 unit PO TID [facility] Last Admin: 10/29/17 06:29 Dose: Not Given Olanzapine (Zyprexa -) 2.5 mg PO BID [facility] Last Admin: 10/28/17 21:54 Dose: 2.5 mg Potassium Chloride (Potassium Chloride Oral Liquid) 40 meq PO DAILY [facility] Last Admin: 10/28/17 10:54 Dose: 40 meq Torsemide (Demadex -) 10 mg PO DAILY [facility] Last Admin: 10/28/17 10:52 Dose: 10 mg - Objective Vital Signs: Vital Signs Temperature 97.9 F 10/29/17 09:00 Pulse Rate 72 10/29/17 09:33 Respiratory Rate 18 10/29/17 09:00 Blood Pressure 110/68 10/29/17 09:00 O2 Sat by Pulse Oximetry (%) 95 10/29/17 09:33 Constitutional: Yes: Well Nourished, No Distress, Calm Cardiovascular: Yes: Regular Rate and Rhythm Respiratory: Yes: Regular Musculoskeletal: Yes: WNL Extremities: Yes: WNL Edema: No Peripheral Pulses WNL: Yes Neurological: Yes: Alert, Oriented Psychiatric: Yes: Alert, Oriented Labs: CBC, BMP 10/28/17 12:00 10/29/17 07:10 INR, PTT INR 1.11 (0.82-1.09) 10/15/17 21:16 Problem List - Problems (1) Acute and chronic respiratory failure Assessment/Plan: -Stoma site covered -breathing spontaneously from mouth Code(s): J96.20 - ACUTE AND CHR RESP FAILURE, UNSP W HYPOXIA OR HYPERCAPNIA Qualifiers: Respiratory failure complication: hypoxia and hypercapnia Qualified Code(s) : J96.21 - Acute and chronic respiratory failure with hypoxia; J96.22 - Acute and chronic respiratory failure with hypercapnia; J96.22 - Acute and chronic respiratory failure with hypercapnia; J96.22 - Acute and chronic respiratory failure with hypercapnia (2) Abuse, drug or alcohol Code(s): F19.10 - OTHER PSYCHOACTIVE SUBSTANCE ABUSE, UNCOMPLICATED (3) Anemia Assessment/Plan: -seen by Hematology -Guaiac stool x 2 negative -h/h stable -repeat labs in AM Code(s): D64.9 - ANEMIA, UNSPECIFIED Qualifiers: Anemia type: unspecified type Qualified Code(s): D64.9 - Anemia, unspecified (4) Paroxysmal atrial fibrillation Code(s): I48.0 - PAROXYSMAL ATRIAL FIBRILLATION (5) Fungemia Assessment/Plan: -on IV antifungal -ID on board Code(s): B49 - UNSPECIFIED MYCOSIS (6) History of alcohol abuse Code(s): Z87.898 - PERSONAL HISTORY OF OTHER SPECIFIED CONDITIONS (7) Hypernatremia Assessment/Plan: -resolved -nephrology on board Code(s): E87.0 - HYPEROSMOLALITY AND HYPERNATREMIA (8) Hypokalemia Assessment/Plan: -improved -potassium chloride daily Code(s): E87.6 - HYPOKALEMIA Assessment/Plan see problem list
[2017-10-29] MEDS: CASPOFUNGIN ACETATE 50 MG in SODIUM CHLORIDE 250 ML IV SCH (10:22)
[2017-10-29] MEDS: HEPARIN NA (PORCINE) 5,000 UNITS/ML 1ML VIAL SQ SCH ×2 (10:29→23:34)
[2017-10-29] MEDS: POTASSIUM CHLORIDE ORAL LIQUID 20 MEQ/15 ML PO SCH (10:29)
[2017-10-29] MEDS: FOLIC ACID 1 MG TABLET (FP) GT SCH (10:30)
[2017-10-29] MEDS: AMIODARONE HCL 200 MG TABLET (FP) PEG SCH (10:30)
[2017-10-29] MEDS: amLODIPine BESYLATE 2.5 MG TABLET (FP) PEG SCH (10:30)
[2017-10-29] MEDS: OLANZapine 2.5 MG TABLET PO SCH ×2 (10:30→23:34)
--- NOTE | 2017-10-29 10:50 | PN ---
Progress Note, Physician Chief Complaint: Currently trache decannulated Awake History of Present Illness: Patient was seen and examined. Awake. Chart was reviewed Denies chest pain or palpitations - Current Medication List Current Medications: Active Medications Acetaminophen (Tylenol Oral Solution -) 650 mg GT Q6H PRN PRN Reason: FEVER OR PAIN Last Admin: 10/25/17 09:08 Dose: 650 mg Albuterol Sulfate (Ventolin 0.083% Nebulizer Soln -) 1 amp NEB Q4H PRN PRN Reason: SHORT OF BREATH/WHEEZING Last Admin: 10/28/17 10:05 Dose: 1 amp Albuterol/Ipratropium (Duoneb -) 1 amp NEB QIDR [facility] Last Admin: 10/29/17 06:00 Dose: 1 amp Amiodarone HCl (Cordarone -) 200 mg PEG DAILY [facility] Last Admin: 10/29/17 10:30 Dose: 200 mg Amlodipine Besylate (Norvasc -) 2.5 mg PEG DAILY [facility] Last Admin: 10/29/17 10:30 Dose: 2.5 mg Folic Acid (Folic Acid -) 1 mg GT DAILY [facility] Last Admin: 10/29/17 10:30 Dose: 1 mg Heparin Sodium (Porcine) (Heparin -) 5,000 unit SQ BID [facility] Last Admin: 10/29/17 10:29 Dose: 5,000 unit Caspofungin 50 mg/ Sodium (Chloride) 250 mls @ 250 mls/hr IV DAILY [facility] Last Admin: 10/29/17 10:22 Dose: 250 mls/hr Vancomycin HCl 500 mg/ (Dextrose) 100 mls @ 100 mls/hr IVPB DAILY@1600 [facility] Last Admin: 10/28/17 18:10 Dose: 100 mls/hr Metoprolol Tartrate (Lopressor -) 50 mg PEG TID [facility] Last Admin: 10/29/17 06:29 Dose: 50 mg Nystatin (Mycolog -) 500,000 unit PO TID [facility] Last Admin: 10/29/17 06:29 Dose: Not Given Olanzapine (Zyprexa -) 2.5 mg PO BID [facility] Last Admin: 10/29/17 10:30 Dose: 2.5 mg Potassium Chloride (Potassium Chloride Oral Liquid) 40 meq PO DAILY [facility] Last Admin: 10/29/17 10:29 Dose: 40 meq Torsemide (Demadex -) 10 mg PO DAILY [facility] Last Admin: 10/28/17 10:52 Dose: 10 mg - Objective Vital Signs: Vital Signs Temperature 97.9 F 10/29/17 09:00 Pulse Rate 72 10/29/17 09:33 Respiratory Rate 18 10/29/17 09:00 Blood Pressure 110/68 10/29/17 09:00 O2 Sat by Pulse Oximetry (%) 95 10/29/17 09:33 Eyes: Yes: PERRL HENT: Yes: Atraumatic Neck: Yes: Supple Cardiovascular: Yes: Regular Rate and Rhythm, S1, S2 Respiratory: Yes: Diminished Gastrointestinal: Yes: Normal Bowel Sounds, Soft. No: Tenderness Edema: No Labs: CBC, BMP 10/28/17 12:00 10/29/17 07:10 Problem List - Problems (1) Acute and chronic respiratory failure Code(s): J96.20 - ACUTE AND CHR RESP FAILURE, UNSP W HYPOXIA OR HYPERCAPNIA Qualifiers: Respiratory failure complication: hypoxia and hypercapnia Qualified Code(s) : J96.21 - Acute and chronic respiratory failure with hypoxia; J96.22 - Acute and chronic respiratory failure with hypercapnia; J96.22 - Acute and chronic respiratory failure with hypercapnia; J96.22 - Acute and chronic respiratory failure with hypercapnia (2) Fungemia Code(s): B49 - UNSPECIFIED MYCOSIS (3) Abuse, drug or alcohol Code(s): F19.10 - OTHER PSYCHOACTIVE SUBSTANCE ABUSE, UNCOMPLICATED (4) Acute diastolic heart failure Code(s): I50.31 - ACUTE DIASTOLIC (CONGESTIVE) HEART FAILURE (5) Acute kidney injury Code(s): N17.9 - ACUTE KIDNEY FAILURE, UNSPECIFIED (6) Anemia Code(s): D64.9 - ANEMIA, UNSPECIFIED Qualifiers: Anemia type: unspecified type Qualified Code(s): D64.9 - Anemia, unspecified (7) History of alcohol abuse Code(s): Z87.898 - PERSONAL HISTORY OF OTHER SPECIFIED CONDITIONS (8) Hypernatremia Code(s): E87.0 - HYPEROSMOLALITY AND HYPERNATREMIA (9) Hypokalemia Code(s): E87.6 - HYPOKALEMIA (10) Paroxysmal atrial fibrillation Code(s): I48.0 - PAROXYSMAL ATRIAL FIBRILLATION (11) Pneumonia Code(s): J18.9 - PNEUMONIA, UNSPECIFIED ORGANISM Qualifiers: Pneumonia type: aspiration pneumonia (12) Respiratory failure with hypoxia Code(s): J96.91 - RESPIRATORY FAILURE, UNSPECIFIED WITH HYPOXIA Qualifiers: Chronicity: acute Qualified Code(s): J96.01 - Acute respiratory failure with hypoxia (13) Status post tracheostomy Code(s): Z93.0 - TRACHEOSTOMY STATUS (14) Thrombocytopenia Code(s): D69.6 - THROMBOCYTOPENIA, UNSPECIFIED (15) Withdrawal symptoms, alcohol Code(s): F10.239 - ALCOHOL DEPENDENCE WITH WITHDRAWAL, UNSPECIFIED Qualifiers: Complication of substance-induced condition: uncomplicated Qualified Code(s ): F10.230 - Alcohol dependence with withdrawal, uncomplicated Assessment/Plan 1. Fungemia vs. colonization 2. 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 History of acute hypoxic respiratory failure, post tracheotomy 4. History of cavitating pneumonia, MSSA bacteremia, post septic shock no evidence of endocarditis by ALISA criteria 5. History of diastolic LV dysfunction with class I-II NYHA congestive heart failure, compensated/euvolemic 6. History of osteomyelitis T9-T10 discitis 7. History of loculated pleural effusion post chest tube insertion 8. History of alcohol dependence 9. Acute renal insufficiency 10. Anemia 11. Hypokalemia 12. Hypernatremia PLAN: 1. Continue Lopressor 2. Continue Amiodarone 3. Continue Norvasc 4. 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 Consider transfusion to maintain Hgb equal or > 8.0 6. Monitor electrolytes and renal function 7. Antifungal and antibiotic as per ID service 8. Trache was decannulated and patient appears comfortable Further plans are to follow Jordon Gtz MD
--- NOTE | 2017-10-29 13:53 | PN ---
Progress Note (short form) - Note Progress Note: awake and alert trach out yesterday just [place] [facility] [place] Vital Signs Period Temp Pulse Resp BP Sys/Jeff Pulse Ox Last 24 Hr 97.5 F-97.9 F 69-89 18-20 110-138/59-82 95-97 cor-rrr lungs clear abd soft,nt ext no edema CBC, BMP 10/28/17 12:00 10/29/17 07:10 Microbiology 10/25/17 13:40 Blood Culture - Preliminary Blood - Peripheral Venous NO GROWTH OBTAINED AFTER 72 HOURS, INCUBATION TO CONTINUE FOR 2 DAYS. 10/25/17 13:40 Blood Culture - Preliminary Blood - Peripheral Venous NO GROWTH OBTAINED AFTER 72 HOURS, INCUBATION TO CONTINUE FOR 2 DAYS. cxray - no change a/p fungemia- pilar glabrata optho evaluation unremarkable echo noted-negative for vegetation cancidas day #12/14 alk phos continues to trend down MSSA bacteremia/vertebral osteo T9/T10 day #53 of 56 ALEXANDRA ATN no documented AIN chronic respiratory failure-now off vent
[2017-10-29] MEDS: TORSEMIDE 10 MG TABLET PO SCH (14:51)
[2017-10-29] MEDS ORDERED: PT OWN MED DRAWER 7, Y5N ONE (14:53)
--- NOTE | 2017-10-29 15:29 | PN ---
Progress Note (short form) - Note Progress Note: PULMONARY Decannulated yesterday by surgery. Denies shortness of breath, voice strong, has good cough. Last Vital Signs Temp Pulse Resp BP Pulse Ox 97.6 F 80 18 109/64 95 10/29/17 14:47 10/29/17 14:47 10/29/17 14:47 10/29/17 14:47 10/29/17 09:33 Gen: on trach collar, awake Heart: irregular Lung: decreased breath sounds at the bases Abd: soft, nontender Ext: no edema CBC, BMP 10/28/17 12:00 10/29/17 07:10 Active Medications Acetaminophen (Tylenol Oral Solution -) 650 mg GT Q6H PRN PRN Reason: FEVER OR PAIN Last Admin: 10/25/17 09:08 Dose: 650 mg Albuterol Sulfate (Ventolin 0.083% Nebulizer Soln -) 1 amp NEB Q4H PRN PRN Reason: SHORT OF BREATH/WHEEZING Last Admin: 10/28/17 10:05 Dose: 1 amp Albuterol/Ipratropium (Duoneb -) 1 amp NEB QIDR [facility] Last Admin: 10/29/17 11:13 Dose: Not Given Amiodarone HCl (Cordarone -) 200 mg PEG DAILY [facility] Last Admin: 10/29/17 10:30 Dose: 200 mg Amlodipine Besylate (Norvasc -) 2.5 mg PEG DAILY [facility] Last Admin: 10/29/17 10:30 Dose: 2.5 mg Folic Acid (Folic Acid -) 1 mg GT DAILY [facility] Last Admin: 10/29/17 10:30 Dose: 1 mg Heparin Sodium (Porcine) (Heparin -) 5,000 unit SQ BID [facility] Last Admin: 10/29/17 10:29 Dose: 5,000 unit Caspofungin 50 mg/ Sodium (Chloride) 250 mls @ 250 mls/hr IV DAILY [facility] Last Admin: 10/29/17 10:22 Dose: 250 mls/hr Vancomycin HCl 500 mg/ (Dextrose) 100 mls @ 100 mls/hr IVPB DAILY@1600 [facility] Last Admin: 10/28/17 18:10 Dose: 100 mls/hr Metoprolol Tartrate (Lopressor -) 50 mg PEG TID [facility] Last Admin: 10/29/17 14:51 Dose: 50 mg Nystatin (Mycolog -) 500,000 unit PO TID [facility] Last Admin: 10/29/17 14:54 Dose: 500,000 unit Olanzapine (Zyprexa -) 2.5 mg PO BID [facility] Last Admin: 10/29/17 10:30 Dose: 2.5 mg Potassium Chloride (Potassium Chloride Oral Liquid) 40 meq PO DAILY [facility] Last Admin: 10/29/17 10:29 Dose: 40 meq Torsemide (Demadex -) 10 mg PO DAILY [facility] Last Admin: 10/29/17 14:51 Dose: 10 mg A/P Dislodged Tracheostomy now decannulated Vent Dependent Chronic Respiratory Failure improving Fungemia Atrial Fibrillation with RVR Acute on Chronic Renal Failure Loculated Pleural Effusions Anemia - antibiotics/antifungals per ID - pt decannulated - PO as tolerated - DVT/GI prophylaxis
[2017-10-29] MEDS: VANCOMYCIN 500 MG in DEXTROSE 5%-WATER - 100 ML IVPB SCH (16:07)
--- NOTE | 2017-10-29 17:34 | PN ---
Progress Note, Physician History of Present Illness: Pt seen and examined at bedside. He is awake and appears comfortable. - Current Medication List Current Medications: Active Medications Acetaminophen (Tylenol Oral Solution -) 650 mg GT Q6H PRN PRN Reason: FEVER OR PAIN Last Admin: 10/25/17 09:08 Dose: 650 mg Albuterol Sulfate (Ventolin 0.083% Nebulizer Soln -) 1 amp NEB Q4H PRN PRN Reason: SHORT OF BREATH/WHEEZING Last Admin: 10/28/17 10:05 Dose: 1 amp Albuterol/Ipratropium (Duoneb -) 1 amp NEB QIDR [facility] Last Admin: 10/29/17 11:13 Dose: Not Given Amiodarone HCl (Cordarone -) 200 mg PEG DAILY [facility] Last Admin: 10/29/17 10:30 Dose: 200 mg Amlodipine Besylate (Norvasc -) 2.5 mg PEG DAILY [facility] Last Admin: 10/29/17 10:30 Dose: 2.5 mg Folic Acid (Folic Acid -) 1 mg GT DAILY [facility] Last Admin: 10/29/17 10:30 Dose: 1 mg Heparin Sodium (Porcine) (Heparin -) 5,000 unit SQ BID [facility] Last Admin: 10/29/17 10:29 Dose: 5,000 unit Caspofungin 50 mg/ Sodium (Chloride) 250 mls @ 250 mls/hr IV DAILY [facility] Last Admin: 10/29/17 10:22 Dose: 250 mls/hr Vancomycin HCl 500 mg/ (Dextrose) 100 mls @ 100 mls/hr IVPB DAILY@1600 [facility] Last Admin: 10/29/17 16:07 Dose: 100 mls/hr Metoprolol Tartrate (Lopressor -) 50 mg PEG TID [facility] Last Admin: 10/29/17 14:51 Dose: 50 mg Nystatin (Mycolog -) 500,000 unit PO TID [facility] Last Admin: 10/29/17 14:54 Dose: 500,000 unit Olanzapine (Zyprexa -) 2.5 mg PO BID [facility] Last Admin: 10/29/17 10:30 Dose: 2.5 mg Potassium Chloride (Potassium Chloride Oral Liquid) 40 meq PO DAILY [facility] Last Admin: 10/29/17 10:29 Dose: 40 meq Torsemide (Demadex -) 10 mg PO DAILY [facility] Last Admin: 10/29/17 14:51 Dose: 10 mg - Objective Vital Signs: Vital Signs Temperature 97.6 F 10/29/17 14:47 Pulse Rate 80 10/29/17 14:47 Respiratory Rate 18 10/29/17 14:47 Blood Pressure 109/64 10/29/17 14:47 O2 Sat by Pulse Oximetry (%) 95 10/29/17 09:33 Constitutional: Yes: Calm Eyes: Yes: Conjunctiva Clear Neck: Yes: Other (trache) Cardiovascular: Yes: S1, S2 Respiratory: Yes: Rhonchi Gastrointestinal: Yes: Soft, Other (peg) Genitourinary: Yes: Incontinence Musculoskeletal: Yes: Muscle Weakness Edema: No Neurological: Yes: Oriented Psychiatric: Yes: Oriented Labs: CBC, BMP 10/28/17 12:00 10/29/17 07:10 INR, PTT INR 1.11 (0.82-1.09) 10/15/17 21:16 Problem List - Problems (1) Acute and chronic respiratory failure Code(s): J96.20 - ACUTE AND CHR RESP FAILURE, UNSP W HYPOXIA OR HYPERCAPNIA Qualifiers: Respiratory failure complication: hypoxia and hypercapnia Qualified Code(s) : J96.21 - Acute and chronic respiratory failure with hypoxia; J96.22 - Acute and chronic respiratory failure with hypercapnia; J96.22 - Acute and chronic respiratory failure with hypercapnia; J96.22 - Acute and chronic respiratory failure with hypercapnia (2) Agitation Code(s): R45.1 - RESTLESSNESS AND AGITATION (3) Atrial flutter by electrocardiogram Code(s): I48.92 - UNSPECIFIED ATRIAL FLUTTER (4) Respiratory distress Code(s): R06.03 - ACUTE RESPIRATORY DISTRESS (5) Acute kidney injury Code(s): N17.9 - ACUTE KIDNEY FAILURE, UNSPECIFIED (6) Anemia Code(s): D64.9 - ANEMIA, UNSPECIFIED Qualifiers: Anemia type: unspecified type Qualified Code(s): D64.9 - Anemia, unspecified Assessment/Plan Current Medications Generic Name Dose Route Start Last Admin Trade Name Freq PRN Reason Stop Dose Admin Acetaminophen 650 mg 10/19/17 03:41 10/25/17 09:08 Tylenol Oral Solution - GT 650 mg Q6H PRN Administration FEVER OR PAIN Albuterol Sulfate 1 amp 10/24/17 09:32 10/28/17 10:05 Ventolin 0.083% Nebulizer Soln - NEB 1 amp Q4H PRN Administration SHORT OF BREATH/WHEEZING Albuterol/Ipratropium 1 amp 10/25/17 12:00 10/29/17 11:13 Duoneb - NEB Not Given QIDR [facility] Amiodarone HCl 200 mg 10/19/17 10:00 10/29/17 10:30 Cordarone - PEG 200 mg DAILY [facility] Administration Amlodipine Besylate 2.5 mg 10/20/17 11:15 10/29/17 10:30 Norvasc - PEG 2.5 mg DAILY [facility] Administration Folic Acid 1 mg 10/19/17 10:00 10/29/17 10:30 Folic Acid - GT 1 mg DAILY [facility] Administration Heparin Sodium (Porcine) 5,000 unit 10/26/17 12:30 10/29/17 10:29 Heparin - SQ 5,000 unit BID [facility] Administration Caspofungin 50 mg/ Sodium 250 mls @ 250 mls/hr 10/19/17 10:00 10/29/17 10:22 Chloride IV 250 mls/hr DAILY [facility] Administration Vancomycin HCl 500 mg/ 100 mls @ 100 mls/hr 10/22/17 16:00 10/29/17 16:07 Dextrose IVPB 100 mls/hr DAILY@1600 [facility] Administration Metoprolol Tartrate 50 mg 10/19/17 06:00 10/29/17 14:51 Lopressor - PEG 50 mg TID [facility] Administration Nystatin 500,000 unit 10/26/17 14:00 10/29/17 14:54 Mycolog - PO 500,000 unit TID [facility] Administration Olanzapine 2.5 mg 10/19/17 10:00 10/29/17 10:30 Zyprexa - PO 2.5 mg BID [facility] Administration Potassium Chloride 40 meq 10/22/17 10:00 10/29/17 10:29 Potassium Chloride Oral Liquid PO 40 meq DAILY [facility] Administration Torsemide 10 mg 10/21/17 13:07 10/29/17 14:51 Demadex - PO 10 mg DAILY [facility] Administration Impression 1. ALEXANDRA 2. fluid overload 3. hypoalbuminemia 4. respiratory failure requiring intubation 5. anemia 6. etoh abuse 7. fevers 8. hypokalemia 9. pleural effusion 10. hypernatremia 11. GI bleed 12. rash 13. a flutter 14. fungemia Plan - will decrease free water with feeds - repeat labs in am - follow barrium swallow - cont torsemide - ALEXANDRA likely from ATN that is slowly resolving - check bmp in am - trache care Dr Peres
[2017-10-30] MEDS: ALBUTEROL SO4 2.5/IPRATROPIUM 0.5 INH SOL 3 ML VIAL.NEB. NEB SCH ×4 (06:31→18:40)
[2017-10-30] MEDS: METOPROLOL TARTRATE 50 MG TABLET (FP) PEG SCH ×3 (06:49→22:59)
[2017-10-30] MEDS: NYSTATIN 500,000 UNITS TABLET PO SCH ×2 (06:50→14:20)
[2017-10-30 07:28] LABS: BASO % 0.8 % (0-2.0); EOS % 1.9 % (0-4.5); MCH 29.5 pg (25.7-33.7); MCHC 33.7 g/dl (32.0-35.9); MEAN CELL VOLUME 87.5 fl (80-96); MEAN PLT VOLUME 7.3 fl (7.5-11.1); NEUT % 69.9 % (42.8-82.8); PLATELET COUNT 292 K/MM3 (134-434); RDW 15.6 % (11.9-15.9); WHITE BLOOD COUNT 9.3 K/mm3 (4.0-10.0)
[2017-10-30 08:02] LABS: ALBUMIN 2.7 g/dl (3.4-5.0); ALK PHOS 136 U/L (45-117); ANION GAP 10 (8-16); BILIRUBIN,TOTAL 0.4 mg/dL (0.2-1.0); CALCIUM 8.9 mg/dL (8.5-10.1); CO2 25 mmol/L (21-32); GLUCOSE,RANDOM 100 mg/dL (74-106); SGOT/AST 25 U/L (15-37); SGPT/ALT 36 U/L (12-78); TOT PROT 8.2 g/dl (6.4-8.2)
--- NOTE | 2017-10-30 10:03 | PN ---
Progress Note, PROCUREMENT INTERNSHIP - Note Progress Note: Pureed diet /thin liquid initiated. Selected Entries 10/29/17 10/29/17 10/29/17 06:00 09:00 14:47 Supper Temperature 97.5 F L 97.9 F 97.6 F 10/29/17 10/29/17 10/29/17 18:00 18:25 22:00 Supper 100% Temperature 97.9 F 98.2 F 10/30/17 06:00 Supper Temperature 98.0 F Laboratory Tests 10/30/17 07:15 WBC 9.3 Pt resistent today, refused most of breakfast and PT today. Calorie count initiated, with goal to wean from GT. TF order ispresently 8-8 am. Consider nocturnal feedings, reducing time and amount, if possible to allow for increasing appetite and PO intake. Consider providing PO supplements b/n meals, added to calorie count and decreasing PEG feedings further. RD to follow.
[2017-10-30] MEDS ORDERED: PT OWN MED DRAWER 7, Y5N ONE ×2 (10:43→17:36)
[2017-10-30] MEDS: FOLIC ACID 1 MG TABLET (FP) GT SCH (10:47)
[2017-10-30] MEDS: OLANZapine 2.5 MG TABLET PO SCH ×2 (10:47→22:59)
[2017-10-30] MEDS: AMIODARONE HCL 200 MG TABLET (FP) PEG SCH (10:47)
[2017-10-30] MEDS: amLODIPine BESYLATE 2.5 MG TABLET (FP) PEG SCH (10:47)
[2017-10-30] MEDS: POTASSIUM CHLORIDE ORAL LIQUID 20 MEQ/15 ML PO SCH (10:47)
[2017-10-30] MEDS: HEPARIN NA (PORCINE) 5,000 UNITS/ML 1ML VIAL SQ SCH ×2 (10:47→22:59)
[2017-10-30] MEDS: TORSEMIDE 10 MG TABLET PO SCH (10:47)
[2017-10-30] MEDS: CASPOFUNGIN ACETATE 50 MG in SODIUM CHLORIDE 250 ML IV SCH (13:06)
--- NOTE | 2017-10-30 13:23 | PN ---
Progress Note (short form) - Note Progress Note: awake and alert Vital Signs Period Temp Pulse Resp BP Sys/Jeff Pulse Ox Last 24 Hr 97.6 F-98.2 F 68-80 18-20 104-114/58-68 97-97 cor-rrr lungs clear abd soft,nt +GT ext no edema CBC, BMP 10/30/17 07:15 10/30/17 07:15 Microbiology 10/25/17 13:40 Blood Culture - Preliminary Blood - Peripheral Venous NO GROWTH OBTAINED AFTER 96 HOURS, INCUBATION TO CONTINUE FOR 1 DAYS. 10/25/17 13:40 Blood Culture - Preliminary Blood - Peripheral Venous NO GROWTH OBTAINED AFTER 96 HOURS, INCUBATION TO CONTINUE FOR 1 DAYS. a/p fungemia- pilar glabrata optho evaluation unremarkable echo noted-negative for vegetation cancidas day #13/14 alk phos continues to trend down MSSA bacteremia/vertebral osteo T9/T10 day #54 of 56 ALEXANDRA ATN no documented AIN chronic respiratory failure-now off vent
--- NOTE | 2017-10-30 14:37 | PN ---
Progress Note, Physician Chief Complaint: Anemia, Respiratory failure, s/p Fall History of Present Illness: NAD, tracheotomy stoma covered breathing and talking well with mouth seen by Speech therapy Barium swallow pending -IV antifungals -seen by ID -ophthalmology consult appreciated, exam unremarkable -h/h stable -hyponatremic now - Current Medication List Current Medications: Active Medications Acetaminophen (Tylenol Oral Solution -) 650 mg GT Q6H PRN PRN Reason: FEVER OR PAIN Last Admin: 10/25/17 09:08 Dose: 650 mg Albuterol Sulfate (Ventolin 0.083% Nebulizer Soln -) 1 amp NEB Q4H PRN PRN Reason: SHORT OF BREATH/WHEEZING Last Admin: 10/28/17 10:05 Dose: 1 amp Albuterol/Ipratropium (Duoneb -) 1 amp NEB QIDR [facility] Last Admin: 10/30/17 11:02 Dose: 1 amp Amiodarone HCl (Cordarone -) 200 mg PEG DAILY [facility] Last Admin: 10/30/17 10:47 Dose: 200 mg Amlodipine Besylate (Norvasc -) 2.5 mg PEG DAILY [facility] Last Admin: 10/30/17 10:47 Dose: 2.5 mg Folic Acid (Folic Acid -) 1 mg GT DAILY [facility] Last Admin: 10/30/17 10:47 Dose: 1 mg Heparin Sodium (Porcine) (Heparin -) 5,000 unit SQ BID [facility] Last Admin: 10/30/17 10:47 Dose: 5,000 unit Caspofungin 50 mg/ Sodium (Chloride) 250 mls @ 250 mls/hr IV DAILY [facility] Last Admin: 10/30/17 13:06 Dose: 250 mls/hr Vancomycin HCl 500 mg/ (Dextrose) 100 mls @ 100 mls/hr IVPB DAILY@1600 [facility] Last Admin: 10/29/17 16:07 Dose: 100 mls/hr Metoprolol Tartrate (Lopressor -) 50 mg PEG TID [facility] Last Admin: 10/30/17 14:19 Dose: 50 mg Nystatin (Mycolog -) 500,000 unit PO TID [facility] Last Admin: 10/30/17 14:20 Dose: Not Given Olanzapine (Zyprexa -) 2.5 mg PO BID [facility] Last Admin: 10/30/17 10:47 Dose: 2.5 mg Potassium Chloride (Potassium Chloride Oral Liquid) 40 meq PO DAILY [facility] Last Admin: 10/30/17 10:47 Dose: 40 meq Torsemide (Demadex -) 10 mg PO DAILY [facility] Last Admin: 10/30/17 10:47 Dose: 10 mg - Objective Vital Signs: Vital Signs Temperature 98.0 F 10/30/17 06:00 Pulse Rate 76 10/30/17 11:01 Respiratory Rate 18 10/30/17 06:00 Blood Pressure 106/66 10/30/17 06:00 O2 Sat by Pulse Oximetry (%) 97 10/30/17 11:01 Constitutional: Yes: Well Nourished, No Distress, Calm Cardiovascular: Yes: Regular Rate and Rhythm Respiratory: Yes: Regular Musculoskeletal: Yes: WNL Extremities: Yes: WNL Edema: No Peripheral Pulses WNL: Yes Neurological: Yes: Alert, Confusion Psychiatric: Yes: Alert Labs: CBC, BMP 10/30/17 07:15 10/30/17 07:15 INR, PTT INR 1.11 (0.82-1.09) 10/15/17 21:16 Problem List - Problems (1) Acute and chronic respiratory failure Assessment/Plan: -Stoma site covered -breathing spontaneously from mouth Code(s): J96.20 - ACUTE AND CHR RESP FAILURE, UNSP W HYPOXIA OR HYPERCAPNIA Qualifiers: Respiratory failure complication: hypoxia and hypercapnia Qualified Code(s) : J96.21 - Acute and chronic respiratory failure with hypoxia; J96.22 - Acute and chronic respiratory failure with hypercapnia; J96.22 - Acute and chronic respiratory failure with hypercapnia; J96.22 - Acute and chronic respiratory failure with hypercapnia (2) Abuse, drug or alcohol Code(s): F19.10 - OTHER PSYCHOACTIVE SUBSTANCE ABUSE, UNCOMPLICATED (3) Anemia Assessment/Plan: -seen by Hematology -Guaiac stool x 2 negative -h/h stable -repeat labs in AM Code(s): D64.9 - ANEMIA, UNSPECIFIED Qualifiers: Anemia type: unspecified type Qualified Code(s): D64.9 - Anemia, unspecified (4) Paroxysmal atrial fibrillation Code(s): I48.0 - PAROXYSMAL ATRIAL FIBRILLATION (5) Fungemia Assessment/Plan: -on IV antifungal -ID on board Code(s): B49 - UNSPECIFIED MYCOSIS (6) History of alcohol abuse Code(s): Z87.898 - PERSONAL HISTORY OF OTHER SPECIFIED CONDITIONS (7) Hyponatremia Assessment/Plan: -nephrology on board -hold torsemide -repeat labs in AM Code(s): E87.1 - HYPO-OSMOLALITY AND HYPONATREMIA (8) Oral thrush Assessment/Plan: Nystatin swish and spit Code(s): B37.0 - CANDIDAL STOMATITIS Assessment/Plan see problem list patient has been refusing physical therapy
--- NOTE | 2017-10-30 15:50 | PN ---
Progress Note, Physician History of Present Illness: Comfortable trach decannulated, denies dyspnea. - Current Medication List Current Medications: Active Medications Acetaminophen (Tylenol Oral Solution -) 650 mg GT Q6H PRN PRN Reason: FEVER OR PAIN Last Admin: 10/25/17 09:08 Dose: 650 mg Albuterol Sulfate (Ventolin 0.083% Nebulizer Soln -) 1 amp NEB Q4H PRN PRN Reason: SHORT OF BREATH/WHEEZING Last Admin: 10/28/17 10:05 Dose: 1 amp Albuterol/Ipratropium (Duoneb -) 1 amp NEB QIDR [facility] Last Admin: 10/30/17 11:02 Dose: 1 amp Amiodarone HCl (Cordarone -) 200 mg PEG DAILY [facility] Last Admin: 10/30/17 10:47 Dose: 200 mg Amlodipine Besylate (Norvasc -) 2.5 mg PEG DAILY [facility] Last Admin: 10/30/17 10:47 Dose: 2.5 mg Folic Acid (Folic Acid -) 1 mg GT DAILY [facility] Last Admin: 10/30/17 10:47 Dose: 1 mg Heparin Sodium (Porcine) (Heparin -) 5,000 unit SQ BID [facility] Last Admin: 10/30/17 10:47 Dose: 5,000 unit Caspofungin 50 mg/ Sodium (Chloride) 250 mls @ 250 mls/hr IV DAILY [facility] Last Admin: 10/30/17 13:06 Dose: 250 mls/hr Vancomycin HCl 500 mg/ (Dextrose) 100 mls @ 100 mls/hr IVPB DAILY@1600 [facility] Last Admin: 10/29/17 16:07 Dose: 100 mls/hr Metoprolol Tartrate (Lopressor -) 50 mg PEG TID [facility] Last Admin: 10/30/17 14:19 Dose: 50 mg Nystatin (Mycolog -) 500,000 unit PO TID [facility] Last Admin: 10/30/17 14:20 Dose: Not Given Olanzapine (Zyprexa -) 2.5 mg PO BID [facility] Last Admin: 10/30/17 10:47 Dose: 2.5 mg Potassium Chloride (Potassium Chloride Oral Liquid) 40 meq PO DAILY [facility] Last Admin: 10/30/17 10:47 Dose: 40 meq Torsemide (Demadex -) 10 mg PO DAILY [facility] Last Admin: 10/30/17 10:47 Dose: 10 mg - Objective Vital Signs: Vital Signs Temperature 97.4 F L 10/30/17 14:47 Pulse Rate 83 10/30/17 14:47 Respiratory Rate 18 10/30/17 14:47 Blood Pressure 124/84 10/30/17 14:47 O2 Sat by Pulse Oximetry (%) 97 10/30/17 11:01 Constitutional: Yes: No Distress, Calm Neck: Yes: Supple Cardiovascular: Yes: Regular Rate and Rhythm Respiratory: Yes: Regular, Diminished Gastrointestinal: Yes: Normal Bowel Sounds, Soft Edema: No Labs: CBC, BMP 10/30/17 07:15 10/30/17 07:15 INR, PTT INR 1.11 (0.82-1.09) 10/15/17 21:16 Problem List - Problems (1) Acute and chronic respiratory failure Code(s): J96.20 - ACUTE AND CHR RESP FAILURE, UNSP W HYPOXIA OR HYPERCAPNIA Qualifiers: Respiratory failure complication: hypoxia and hypercapnia Qualified Code(s) : J96.21 - Acute and chronic respiratory failure with hypoxia; J96.22 - Acute and chronic respiratory failure with hypercapnia; J96.22 - Acute and chronic respiratory failure with hypercapnia; J96.22 - Acute and chronic respiratory failure with hypercapnia (2) Agitation Code(s): R45.1 - RESTLESSNESS AND AGITATION (3) Acute kidney injury Code(s): N17.9 - ACUTE KIDNEY FAILURE, UNSPECIFIED (4) Alkaline phosphatase elevation Code(s): R74.8 - ABNORMAL LEVELS OF OTHER SERUM ENZYMES (5) Anemia Code(s): D64.9 - ANEMIA, UNSPECIFIED Qualifiers: Anemia type: unspecified type Qualified Code(s): D64.9 - Anemia, unspecified (6) Paroxysmal atrial fibrillation Code(s): I48.0 - PAROXYSMAL ATRIAL FIBRILLATION (7) Status post insertion of percutaneous endoscopic gastrostomy (PEG) tube Code(s): Z93.1 - GASTROSTOMY STATUS (8) Status post tracheostomy Code(s): Z93.0 - TRACHEOSTOMY STATUS (9) Acute diastolic heart failure Code(s): I50.31 - ACUTE DIASTOLIC (CONGESTIVE) HEART FAILURE (10) Fungemia Code(s): B49 - UNSPECIFIED MYCOSIS Assessment/Plan 1. Fungemia vs. colonization 2. Paroxysmal atrial fibrillation [id number] score of 2, likely not an ideal candidate for manager long term care anticoagulation 3. History of acute hypoxic respiratory failure, post tracheotomy since decannulated 4. History of cavitating pneumonia, MSSA bacteremia, post septic shock no evidence of endocarditis by ALISA criteria 5. History of diastolic LV dysfunction with class I-II NYHA congestive heart failure, compensated/euvolemic 6. History of osteomyelitis T9-T10 discitis 7. History of loculated pleural effusion post chest tube insertion 8. History of alcohol dependence 9. Acute on chronic renal insufficiency referable to ATN 10. Anemia 11. Hypokalemia 12. Hypernatremia PLAN: 1. Continue Lopressor 50 tid 2. Continue Amiodarone 200 qd 3. Continue Norvasc 2.5 qd 4. Defer manager long term care A/C considering his presentation and co-morbidities 5. Consider transfusion to maintain Hgb equal or > 8.0 6. Demadex 10 qd with monitor electrolytes and renal function 7. Antifungal and antibiotic as per ID service 8. Tracheostomy was decannulated and patient appears comfortable, enteral feeds 9. DVT prophylaxis
--- NOTE | 2017-10-30 16:19 | PN ---
Progress Note (short form) - Note Progress Note: PULMONARY OFFERS NO COMPLAINTS VSS/AFEBRILE ANICTERIC DISTANT BUT CLEAR B/L BREATH SOUNDS [id number] BS+ NO EDEMA LABS/MEDS/NOTES/IMAGES REVIEWED HGB 8.5 BUN 52 CR 2.0 Dislodged Tracheostomy now decannulated Vent Dependent Chronic Respiratory Failure improving Fungemia Atrial Fibrillation with RVR Acute on Chronic Renal Failure Loculated Pleural Effusions Anemia - antibiotics/antifungals per ID - pt decannulated - PO as tolerated - DVT/GI prophylaxis Kun PIZANO MD
--- NOTE | 2017-10-30 16:30 | PN ---
Progress Note, Physician History of Present Illness: Pt seen and examined at bedside. He is awake and alert. He is tolerating diet. - Current Medication List Current Medications: Active Medications Acetaminophen (Tylenol Oral Solution -) 650 mg GT Q6H PRN PRN Reason: FEVER OR PAIN Last Admin: 10/25/17 09:08 Dose: 650 mg Albuterol Sulfate (Ventolin 0.083% Nebulizer Soln -) 1 amp NEB Q4H PRN PRN Reason: SHORT OF BREATH/WHEEZING Last Admin: 10/28/17 10:05 Dose: 1 amp Albuterol/Ipratropium (Duoneb -) 1 amp NEB QIDR [facility] Last Admin: 10/30/17 11:02 Dose: 1 amp Amiodarone HCl (Cordarone -) 200 mg PEG DAILY [facility] Last Admin: 10/30/17 10:47 Dose: 200 mg Amlodipine Besylate (Norvasc -) 2.5 mg PEG DAILY [facility] Last Admin: 10/30/17 10:47 Dose: 2.5 mg Folic Acid (Folic Acid -) 1 mg GT DAILY [facility] Last Admin: 10/30/17 10:47 Dose: 1 mg Heparin Sodium (Porcine) (Heparin -) 5,000 unit SQ BID [facility] Last Admin: 10/30/17 10:47 Dose: 5,000 unit Caspofungin 50 mg/ Sodium (Chloride) 250 mls @ 250 mls/hr IV DAILY [facility] Last Admin: 10/30/17 13:06 Dose: 250 mls/hr Vancomycin HCl 500 mg/ (Dextrose) 100 mls @ 100 mls/hr IVPB DAILY@1600 [facility] Last Admin: 10/29/17 16:07 Dose: 100 mls/hr Metoprolol Tartrate (Lopressor -) 50 mg PEG TID [facility] Last Admin: 10/30/17 14:19 Dose: 50 mg Nystatin (Mycolog -) 500,000 unit PO TID [facility] Last Admin: 10/30/17 14:20 Dose: Not Given Olanzapine (Zyprexa -) 2.5 mg PO BID [facility] Last Admin: 10/30/17 10:47 Dose: 2.5 mg Potassium Chloride (Potassium Chloride Oral Liquid) 40 meq PO DAILY [facility] Last Admin: 10/30/17 10:47 Dose: 40 meq Torsemide (Demadex -) 10 mg PO DAILY [facility] Last Admin: 10/30/17 10:47 Dose: 10 mg - Objective Vital Signs: Vital Signs Temperature 97.4 F L 10/30/17 14:47 Pulse Rate 83 10/30/17 14:47 Respiratory Rate 18 10/30/17 14:47 Blood Pressure 124/84 10/30/17 14:47 O2 Sat by Pulse Oximetry (%) 97 10/30/17 11:01 Constitutional: Yes: Calm Eyes: Yes: Conjunctiva Clear HENT: Yes: Atraumatic Cardiovascular: Yes: S1, S2 Respiratory: Yes: Rhonchi Gastrointestinal: Yes: Soft, Other (peg) Genitourinary: Yes: WNL Musculoskeletal: Yes: WNL Edema: No Neurological: Yes: Oriented Psychiatric: Yes: Oriented Labs: CBC, BMP 10/30/17 07:15 10/30/17 07:15 INR, PTT INR 1.11 (0.82-1.09) 10/15/17 21:16 Problem List - Problems (1) Acute and chronic respiratory failure Code(s): J96.20 - ACUTE AND CHR RESP FAILURE, UNSP W HYPOXIA OR HYPERCAPNIA Qualifiers: Respiratory failure complication: hypoxia and hypercapnia Qualified Code(s) : J96.21 - Acute and chronic respiratory failure with hypoxia; J96.22 - Acute and chronic respiratory failure with hypercapnia; J96.22 - Acute and chronic respiratory failure with hypercapnia; J96.22 - Acute and chronic respiratory failure with hypercapnia (2) Agitation Code(s): R45.1 - RESTLESSNESS AND AGITATION (3) Atrial flutter by electrocardiogram Code(s): I48.92 - UNSPECIFIED ATRIAL FLUTTER (4) Respiratory distress Code(s): R06.03 - ACUTE RESPIRATORY DISTRESS (5) Acute kidney injury Code(s): N17.9 - ACUTE KIDNEY FAILURE, UNSPECIFIED (6) Anemia Code(s): D64.9 - ANEMIA, UNSPECIFIED Qualifiers: Anemia type: unspecified type Qualified Code(s): D64.9 - Anemia, unspecified Assessment/Plan Current Medications Generic Name Dose Route Start Last Admin Trade Name Freq PRN Reason Stop Dose Admin Acetaminophen 650 mg 10/19/17 03:41 10/25/17 09:08 Tylenol Oral Solution - GT 650 mg Q6H PRN Administration FEVER OR PAIN Albuterol Sulfate 1 amp 10/24/17 09:32 12/11/17 10:05 Ventolin 0.083% Nebulizer Soln - NEB 1 amp Q4H PRN Administration SHORT OF BREATH/WHEEZING Albuterol/Ipratropium 1 amp 10/25/17 12:00 10/30/17 11:02 Duoneb - NEB 1 amp QIDR [facility] Administration Amiodarone HCl 200 mg 10/19/17 10:00 10/30/17 10:47 Cordarone - PEG 200 mg DAILY [facility] Administration Amlodipine Besylate 2.5 mg 10/20/17 11:15 10/30/17 10:47 Norvasc - PEG 2.5 mg DAILY [facility] Administration Folic Acid 1 mg 10/19/17 10:00 10/30/17 10:47 Folic Acid - GT 1 mg DAILY [facility] Administration Heparin Sodium (Porcine) 5,000 unit 10/26/17 12:30 10/30/17 10:47 Heparin - SQ 5,000 unit BID [facility] Administration Caspofungin 50 mg/ Sodium 250 mls @ 250 mls/hr 10/19/17 10:00 10/30/17 13:06 Chloride IV 250 mls/hr DAILY [facility] Administration Vancomycin HCl 500 mg/ 100 mls @ 100 mls/hr 10/22/17 16:00 10/29/17 16:07 Dextrose IVPB 100 mls/hr DAILY@1600 [facility] Administration Metoprolol Tartrate 50 mg 10/19/17 06:00 10/30/17 14:19 Lopressor - PEG 50 mg TID [facility] Administration Nystatin 500,000 unit 10/26/17 14:00 10/30/17 14:20 Mycolog - PO Not Given TID [facility] Olanzapine 2.5 mg 10/19/17 10:00 10/30/17 10:47 Zyprexa - PO 2.5 mg BID [facility] Administration Potassium Chloride 40 meq 10/22/17 10:00 10/30/17 10:47 Potassium Chloride Oral Liquid PO 40 meq DAILY [facility] Administration Torsemide 10 mg 10/21/17 13:07 10/30/17 10:47 Demadex - PO 10 mg DAILY [facility] Administration Impression 1. ALEXANDRA 2. fluid overload 3. hypoalbuminemia 4. respiratory failure requiring intubation 5. anemia 6. etoh abuse 7. fevers 8. hypokalemia 9. pleural effusion 10. hypernatremia 11. GI bleed 12. rash 13. a flutter 14. fungemia Plan - repeat labs in am - pt now is off of feeds - can hold torsemide, discussed with primary team - ALEXANDRA likely from [facility] that is slowly resolving - trache care Dr Peres
[2017-10-30] MEDS: VANCOMYCIN 500 MG in DEXTROSE 5%-WATER - 100 ML IVPB SCH (17:56)
[2017-10-30] MEDS: NYSTATIN 500,000 UNITS/5 ML SUSPENSION PO SCH ×2 (17:57→18:07)
[2017-10-30] MEDS: ACETAMINOPHEN 650 MG/20.3 ML ORAL SOLUTION (CUPS) GT PRN (23:15)
[2017-10-31] MEDS: NYSTATIN 500,000 UNITS/5 ML SUSPENSION PO SCH ×4 (06:01→17:35)
[2017-10-31] MEDS: METOPROLOL TARTRATE 50 MG TABLET (FP) PEG SCH ×3 (06:18→21:12)
[2017-10-31] MEDS: ALBUTEROL SO4 2.5/IPRATROPIUM 0.5 INH SOL 3 ML VIAL.NEB. NEB SCH ×5 (06:30→23:30)
[2017-10-31 09:07] LABS: ANION GAP 11 (8-16); CALCIUM 9.1 mg/dL (8.5-10.1); CO2 24 mmol/L (21-32); CREATININE 2.1 mg/dL (0.7-1.3); GLUCOSE,RANDOM 106 mg/dL (74-106)
[2017-10-31 09:10] LABS: C-REACTIVE PROTEIN 1.9 MG/DL (0.00-0.3)
[2017-10-31] MEDS: CASPOFUNGIN ACETATE 50 MG in SODIUM CHLORIDE 250 ML IV SCH (09:25)
[2017-10-31] MEDS: amLODIPine BESYLATE 2.5 MG TABLET (FP) PEG SCH (09:26)
[2017-10-31] MEDS: POTASSIUM CHLORIDE ORAL LIQUID 20 MEQ/15 ML PO SCH ×2 (09:26→14:49)
[2017-10-31] MEDS: OLANZapine 2.5 MG TABLET PO SCH ×2 (09:26→21:12)
[2017-10-31] MEDS: AMIODARONE HCL 200 MG TABLET (FP) PEG SCH (09:26)
[2017-10-31] MEDS: FOLIC ACID 1 MG TABLET (FP) GT SCH (09:27)
[2017-10-31] MEDS: HEPARIN NA (PORCINE) 5,000 UNITS/ML 1ML VIAL SQ SCH ×2 (09:27→21:12)
--- NOTE | 2017-10-31 12:40 | PN ---
Progress Note, Physician Chief Complaint: Currently trache decannulated History of Present Illness: Patient was seen and examined. Awake. Chart was reviewed Denies chest pain or palpitations - Current Medication List Current Medications: Active Medications Acetaminophen (Tylenol Oral Solution -) 650 mg GT Q6H PRN PRN Reason: FEVER OR PAIN Last Admin: 10/30/17 23:15 Dose: 650 mg Albuterol Sulfate (Ventolin 0.083% Nebulizer Soln -) 1 amp NEB Q4H PRN PRN Reason: SHORT OF BREATH/WHEEZING Last Admin: 10/28/17 10:05 Dose: 1 amp Albuterol/Ipratropium (Duoneb -) 1 amp NEB QIDR [facility] Last Admin: 10/31/17 11:30 Dose: 1 amp Amiodarone HCl (Cordarone -) 200 mg PEG DAILY [facility] Last Admin: 10/31/17 09:26 Dose: 200 mg Amlodipine Besylate (Norvasc -) 2.5 mg PEG DAILY [facility] Last Admin: 10/31/17 09:26 Dose: 2.5 mg Folic Acid (Folic Acid -) 1 mg GT DAILY [facility] Last Admin: 10/31/17 09:27 Dose: 1 mg Heparin Sodium (Porcine) (Heparin -) 5,000 unit SQ BID [facility] Last Admin: 10/31/17 09:27 Dose: 5,000 unit Caspofungin 50 mg/ Sodium (Chloride) 250 mls @ 250 mls/hr IV DAILY [facility] Last Admin: 10/31/17 09:25 Dose: 250 mls/hr Vancomycin HCl 500 mg/ (Dextrose) 100 mls @ 100 mls/hr IVPB DAILY@1600 [facility] Last Admin: 10/30/17 17:56 Dose: 100 mls/hr Metoprolol Tartrate (Lopressor -) 50 mg PEG TID [facility] Last Admin: 10/31/17 06:18 Dose: 50 mg Nystatin (Nystatin Oral Suspension -) 500,000 units PO Q6HPO [facility] Last Admin: 10/31/17 12:38 Dose: Not Given Olanzapine (Zyprexa -) 2.5 mg PO BID [facility] Last Admin: 10/31/17 09:26 Dose: 2.5 mg Potassium Chloride (Potassium Chloride Oral Liquid) 40 meq PO DAILY [facility] Last Admin: 10/31/17 09:26 Dose: 40 meq - Objective Vital Signs: Vital Signs Temperature 97.8 F 10/31/17 06:00 Pulse Rate 75 10/31/17 11:30 Respiratory Rate 20 10/31/17 06:00 Blood Pressure 118/71 10/31/17 06:00 O2 Sat by Pulse Oximetry (%) 95 10/31/17 11:30 Eyes: Yes: PERRL HENT: Yes: Atraumatic Neck: Yes: Supple Cardiovascular: Yes: Regular Rate and Rhythm, S1, S2 Respiratory: Yes: Diminished Gastrointestinal: Yes: Normal Bowel Sounds. No: Tenderness Edema: No Labs: CBC, BMP 10/30/17 07:15 10/31/17 07:40 Problem List - Problems (1) Acute and chronic respiratory failure Code(s): J96.20 - ACUTE AND CHR RESP FAILURE, UNSP W HYPOXIA OR HYPERCAPNIA Qualifiers: Respiratory failure complication: hypoxia and hypercapnia Qualified Code(s) : J96.21 - Acute and chronic respiratory failure with hypoxia; J96.22 - Acute and chronic respiratory failure with hypercapnia; J96.22 - Acute and chronic respiratory failure with hypercapnia; J96.22 - Acute and chronic respiratory failure with hypercapnia (2) Fungemia Code(s): B49 - UNSPECIFIED MYCOSIS (3) Abuse, drug or alcohol Code(s): F19.10 - OTHER PSYCHOACTIVE SUBSTANCE ABUSE, UNCOMPLICATED (4) Acute diastolic heart failure Code(s): I50.31 - ACUTE DIASTOLIC (CONGESTIVE) HEART FAILURE (5) Acute kidney injury Code(s): N17.9 - ACUTE KIDNEY FAILURE, UNSPECIFIED (6) Anemia Code(s): D64.9 - ANEMIA, UNSPECIFIED Qualifiers: Anemia type: unspecified type Qualified Code(s): D64.9 - Anemia, unspecified (7) History of alcohol abuse Code(s): Z87.898 - PERSONAL HISTORY OF OTHER SPECIFIED CONDITIONS (8) Hypernatremia Code(s): E87.0 - HYPEROSMOLALITY AND HYPERNATREMIA (9) Hypokalemia Code(s): E87.6 - HYPOKALEMIA (10) Paroxysmal atrial fibrillation Code(s): I48.0 - PAROXYSMAL ATRIAL FIBRILLATION (11) Pneumonia Code(s): J18.9 - PNEUMONIA, UNSPECIFIED ORGANISM Qualifiers: Pneumonia type: aspiration pneumonia (12) Respiratory failure with hypoxia Code(s): J96.91 - RESPIRATORY FAILURE, UNSPECIFIED WITH HYPOXIA Qualifiers: Chronicity: acute Qualified Code(s): J96.01 - Acute respiratory failure with hypoxia (13) Status post tracheostomy Code(s): Z93.0 - TRACHEOSTOMY STATUS (14) Thrombocytopenia Code(s): D69.6 - THROMBOCYTOPENIA, UNSPECIFIED (15) Withdrawal symptoms, alcohol Code(s): F10.239 - ALCOHOL DEPENDENCE WITH WITHDRAWAL, UNSPECIFIED Qualifiers: Complication of substance-induced condition: uncomplicated Qualified Code(s ): F10.230 - Alcohol dependence with withdrawal, uncomplicated Assessment/Plan 1. Fungemia vs. colonization 2. Paroxysmal atrial fibrillation [id number] score of 2, likely not an ideal candidate for intermediate card tender anticoagulation 3. History of acute hypoxic respiratory failure, post tracheotomy 4. History of cavitating pneumonia, MSSA bacteremia, post septic shock no evidence of endocarditis by ALISA criteria 5. History of diastolic LV dysfunction with class I-II NYHA congestive heart failure, compensated/euvolemic 6. History of osteomyelitis T9-T10 discitis 7. History of loculated pleural effusion post chest tube insertion 8. History of alcohol dependence 9. Acute renal insufficiency 10. Anemia 11. Hypokalemia 12. Hypernatremia PLAN: 1. Continue Lopressor 2. Continue Amiodarone 3. Continue Norvasc 4. Defer intermediate card tender A/C considering his presentation and co-morbidities 5. Consider transfusion to maintain Hgb equal or > 8.0. 6. Monitor electrolytes and renal function 7. Antifungal and antibiotic as per ID service Further plans are to follow Jordon Gtz MD
--- NOTE | 2017-10-31 13:50 | PN ---
Progress Note (short form) - Note Progress Note: PULMONARY OFFERS NO COMPLAINTS VSS/AFEBRILE ANICTERIC DISTANT BUT CLEAR B/L BREATH SOUNDS S1WS2 BS+ NO EDEMA LABS/MEDS/NOTES/IMAGES REVIEWED BUN CR 2.1 Dislodged Tracheostomy now decannulated Vent Dependent Chronic Respiratory Failure improving Fungemia Atrial Fibrillation with RVR Acute on Chronic Renal Failure Loculated Pleural Effusions Anemia - antibiotics/antifungals per ID - pt decannulated - PO as tolerated - DVT/GI prophylaxis Kun PIZANO MD
--- NOTE | 2017-10-31 14:06 | PN ---
Progress Note, Physician Chief Complaint: decannulated yesterday trach stoma covered awake alert good strong voice no fever,WBC normal today last day of iv caspofingin and day iv for osteomyelitis patient gets tube feed from 8:pm to 8 am he is on pureed food - Current Medication List Current Medications: Active Medications Acetaminophen (Tylenol Oral Solution -) 650 mg GT Q6H PRN PRN Reason: FEVER OR PAIN Last Admin: 10/30/17 23:15 Dose: 650 mg Albuterol Sulfate (Ventolin 0.083% Nebulizer Soln -) 1 amp NEB Q4H PRN PRN Reason: SHORT OF BREATH/WHEEZING Last Admin: 10/28/17 10:05 Dose: 1 amp Albuterol/Ipratropium (Duoneb -) 1 amp NEB QIDR [facility] Last Admin: 10/31/17 11:30 Dose: 1 amp Amiodarone HCl (Cordarone -) 200 mg PEG DAILY [facility] Last Admin: 10/31/17 09:26 Dose: 200 mg Amlodipine Besylate (Norvasc -) 2.5 mg PEG DAILY [facility] Last Admin: 10/31/17 09:26 Dose: 2.5 mg Folic Acid (Folic Acid -) 1 mg GT DAILY [facility] Last Admin: 10/31/17 09:27 Dose: 1 mg Heparin Sodium (Porcine) (Heparin -) 5,000 unit SQ BID [facility] Last Admin: 10/31/17 09:27 Dose: 5,000 unit Caspofungin 50 mg/ Sodium (Chloride) 250 mls @ 250 mls/hr IV DAILY [facility] Last Admin: 10/31/17 09:25 Dose: 250 mls/hr Vancomycin HCl 500 mg/ (Dextrose) 100 mls @ 100 mls/hr IVPB DAILY@1600 [facility] Last Admin: 10/30/17 17:56 Dose: 100 mls/hr Metoprolol Tartrate (Lopressor -) 50 mg PEG TID [facility] Last Admin: 10/31/17 06:18 Dose: 50 mg Nystatin (Nystatin Oral Suspension -) 500,000 units PO Q6HPO [facility] Last Admin: 10/31/17 12:38 Dose: Not Given Olanzapine (Zyprexa -) 2.5 mg PO BID [facility] Last Admin: 10/31/17 09:26 Dose: 2.5 mg Potassium Chloride (Potassium Chloride Oral Liquid) 40 meq PO DAILY [facility] Last Admin: 10/30/17 10:47 Dose: 40 meq - Objective Vital Signs: Vital Signs Temperature 97.8 F 10/31/17 06:00 Pulse Rate 75 10/31/17 11:30 Respiratory Rate 20 10/31/17 06:00 Blood Pressure 118/71 10/31/17 06:00 O2 Sat by Pulse Oximetry (%) 95 10/31/17 11:30 Constitutional: Yes: Calm Neck: Yes: Other (trach stoma covered) Cardiovascular: Yes: Regular Rate and Rhythm, S1, S2 Respiratory: Yes: CTA Bilaterally Gastrointestinal: Yes: Normal Bowel Sounds, Soft, Other (peg) Edema: No Neurological: Yes: Alert, Oriented Labs: CBC, BMP 10/30/17 07:15 10/31/17 07:40 INR, PTT INR 1.11 (0.82-1.09) 10/15/17 21:16 Problem List - Problems (1) Acute and chronic respiratory failure Assessment/Plan: decanulated trach stoma covered Code(s): J96.20 - ACUTE AND CHR RESP FAILURE, UNSP W HYPOXIA OR HYPERCAPNIA Qualifiers: Respiratory failure complication: hypoxia and hypercapnia Qualified Code(s) : J96.21 - Acute and chronic respiratory failure with hypoxia; J96.22 - Acute and chronic respiratory failure with hypercapnia; J96.22 - Acute and chronic respiratory failure with hypercapnia; J96.22 - Acute and chronic respiratory failure with hypercapnia (2) Paroxysmal atrial fibrillation Assessment/Plan: continue amiodarone and metoprolol Code(s): I48.0 - PAROXYSMAL ATRIAL FIBRILLATION (3) Staphylococcus aureus bacteremia Assessment/Plan: on iv vancomycin for bacteremia with osteomylitis day 55 of 56 Code(s): R78.81 - BACTEREMIA (4) Fungemia Assessment/Plan: pungemia day 14 of abx optho consult noted echo no vegetations Microbiology 10/16/17 02:35 Blood - Peripheral Venous Yeast/Fungus Identification - Final Mary Glabrata Code(s): B49 - UNSPECIFIED MYCOSIS (5) Acute kidney injury Assessment/Plan: stop torsemide Code(s): N17.9 - ACUTE KIDNEY FAILURE, UNSPECIFIED (6) Anemia Assessment/Plan: off AC given anemia transfuse if Hgb<8 Code(s): D64.9 - ANEMIA, UNSPECIFIED Qualifiers: Anemia type: unspecified type Qualified Code(s): D64.9 - Anemia, unspecified
--- NOTE | 2017-10-31 14:59 | PN ---
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 He would like a diet upgrade. - Per RD: continue calorie count 2 more days continue TF Nepro x 12 hrs overnight at 50 ml/hr for now. REC: trial of dys chopped including chopped egg, etc and one soft to chew item per tray eg pancake with syrup, fish, quiche, Monitor tolerance Goal to wean from GT.
[2017-10-31] MEDS ORDERED: PT OWN MED DRAWER 7, Y5N ONE (15:03)
[2017-10-31] MEDS: VANCOMYCIN 500 MG in DEXTROSE 5%-WATER - 100 ML IVPB SCH (15:21)
--- NOTE | 2017-10-31 16:05 | PN ---
Progress Note, Physician History of Present Illness: Pt seen and examined at bedside. He is awake and alert. He is tolerating diet. - Current Medication List Current Medications: Active Medications Acetaminophen (Tylenol Oral Solution -) 650 mg GT Q6H PRN PRN Reason: FEVER OR PAIN Last Admin: 10/30/17 23:15 Dose: 650 mg Albuterol Sulfate (Ventolin 0.083% Nebulizer Soln -) 1 amp NEB Q4H PRN PRN Reason: SHORT OF BREATH/WHEEZING Last Admin: 10/28/17 10:05 Dose: 1 amp Albuterol/Ipratropium (Duoneb -) 1 amp NEB QIDR [facility] Last Admin: 10/31/17 11:30 Dose: 1 amp Amiodarone HCl (Cordarone -) 200 mg PEG DAILY [facility] Last Admin: 10/31/17 09:26 Dose: 200 mg Amlodipine Besylate (Norvasc -) 2.5 mg PEG DAILY [facility] Last Admin: 10/31/17 09:26 Dose: 2.5 mg Folic Acid (Folic Acid -) 1 mg GT DAILY [facility] Last Admin: 10/31/17 09:27 Dose: 1 mg Heparin Sodium (Porcine) (Heparin -) 5,000 unit SQ BID [facility] Last Admin: 10/31/17 09:27 Dose: 5,000 unit Caspofungin 50 mg/ Sodium (Chloride) 250 mls @ 250 mls/hr IV DAILY [facility] Last Admin: 10/31/17 09:25 Dose: 250 mls/hr Vancomycin HCl 500 mg/ (Dextrose) 100 mls @ 100 mls/hr IVPB DAILY@1600 [facility] Last Admin: 10/31/17 15:21 Dose: 100 mls/hr Metoprolol Tartrate (Lopressor -) 50 mg PEG TID [facility] Last Admin: 10/31/17 15:01 Dose: 50 mg Nystatin (Nystatin Oral Suspension -) 500,000 units PO Q6HPO [facility] Last Admin: 10/31/17 12:38 Dose: Not Given Olanzapine (Zyprexa -) 2.5 mg PO BID [facility] Last Admin: 10/31/17 09:26 Dose: 2.5 mg - Objective Vital Signs: Vital Signs Temperature 98.2 F 10/31/17 14:40 Pulse Rate 92 H 10/31/17 14:40 Respiratory Rate 18 10/31/17 14:40 Blood Pressure 123/74 10/31/17 14:40 O2 Sat by Pulse Oximetry (%) 95 10/31/17 11:30 Constitutional: Yes: Calm Eyes: Yes: Conjunctiva Clear Cardiovascular: Yes: S1, S2 Respiratory: Yes: CTA Bilaterally Gastrointestinal: Yes: Soft, Other (peg) Genitourinary: Yes: WNL Musculoskeletal: Yes: WNL Extremities: Yes: WNL Edema: No Neurological: Yes: Oriented Psychiatric: Yes: Oriented Labs: CBC, BMP 10/30/17 07:15 10/31/17 07:40 INR, PTT INR 1.11 (0.82-1.09) 10/15/17 21:16 Problem List - Problems (1) Acute and chronic respiratory failure Code(s): J96.20 - ACUTE AND CHR RESP FAILURE, UNSP W HYPOXIA OR HYPERCAPNIA Qualifiers: Respiratory failure complication: hypoxia and hypercapnia Qualified Code(s) : J96.21 - Acute and chronic respiratory failure with hypoxia; J96.22 - Acute and chronic respiratory failure with hypercapnia; J96.22 - Acute and chronic respiratory failure with hypercapnia; J96.22 - Acute and chronic respiratory failure with hypercapnia (2) Agitation Code(s): R45.1 - RESTLESSNESS AND AGITATION (3) Atrial flutter by electrocardiogram Code(s): I48.92 - UNSPECIFIED ATRIAL FLUTTER (4) Respiratory distress Code(s): R06.03 - ACUTE RESPIRATORY DISTRESS (5) Acute kidney injury Code(s): N17.9 - ACUTE KIDNEY FAILURE, UNSPECIFIED (6) Anemia Code(s): D64.9 - ANEMIA, UNSPECIFIED Qualifiers: Anemia type: unspecified type Qualified Code(s): D64.9 - Anemia, unspecified Assessment/Plan Current Medications Generic Name Dose Route Start Last Admin Trade Name Freq PRN Reason Stop Dose Admin Acetaminophen 650 mg 10/19/17 03:41 10/30/17 23:15 Tylenol Oral Solution - GT 650 mg Q6H PRN Administration FEVER OR PAIN Albuterol Sulfate 1 amp 10/24/17 09:32 10/28/17 10:05 Ventolin 0.083% Nebulizer Soln - NEB 1 amp Q4H PRN Administration SHORT OF BREATH/WHEEZING Albuterol/Ipratropium 1 amp 10/25/17 12:00 10/31/17 11:30 Duoneb - NEB 1 amp QIDR [facility] Administration Amiodarone HCl 200 mg 10/19/17 10:00 10/31/17 09:26 Cordarone - PEG 200 mg DAILY [facility] Administration Amlodipine Besylate 2.5 mg 10/20/17 11:15 10/31/17 09:26 Norvasc - PEG 2.5 mg DAILY [facility] Administration Folic Acid 1 mg 10/19/17 10:00 10/31/17 09:27 Folic Acid - GT 1 mg DAILY [facility] Administration Heparin Sodium (Porcine) 5,000 unit 10/26/17 12:30 10/31/17 09:27 Heparin - SQ 5,000 unit BID [facility] Administration Caspofungin 50 mg/ Sodium 250 mls @ 250 mls/hr 10/19/17 10:00 10/31/17 09:25 Chloride IV 250 mls/hr DAILY [facility] Administration Vancomycin HCl 500 mg/ 100 mls @ 100 mls/hr 10/22/17 16:00 10/31/17 15:21 Dextrose IVPB 100 mls/hr DAILY@1600 [facility] Administration Metoprolol Tartrate 50 mg 10/19/17 06:00 10/31/17 15:01 Lopressor - PEG 50 mg TID [facility] Administration Nystatin 500,000 units 10/30/17 18:00 10/31/17 12:38 Nystatin Oral Suspension - PO Not Given Q6HPO [facility] Olanzapine 2.5 mg 10/19/17 10:00 10/31/17 09:26 Zyprexa - PO 2.5 mg BID [facility] Administration Impression 1. ALEXANDRA 2. fluid overload 3. hypoalbuminemia 4. respiratory failure requiring intubation 5. anemia 6. etoh abuse 7. fevers 8. hypokalemia 9. pleural effusion 10. hypernatremia 11. GI bleed 12. rash 13. a flutter 14. fungemia Plan - encourage PO intake - repeat labs in am - torsemide on hold for now - will evaluate volume status daily - ALEXANDRA likely from [facility] that is slowly resolving Dr Peres
--- NOTE | 2017-10-31 16:20 | PN ---
Progress Note (short form) - Note Progress Note: awake and alert Vital Signs Period Temp Pulse Resp BP Sys/Jeff Pulse Ox Last 24 Hr 97.8 F-98.5 F 75-92 18-20 117-130/68-76 95-97 cor-rrr lungs clear abd soft,nt ext no edema CBC, BMP 10/30/17 07:15 10/31/17 07:40 a/p fungemia- pilar glabrata optho evaluation unremarkable echo noted-negative for vegetation cancidas day #14/ alk phos continues to trend down MSSA bacteremia/vertebral osteo T9/T10 day #55 of 56 vancomycin ALEXANDRA [facility] no documented AIN chronic respiratory failure-now off vent doing well last day vancomycin tomorrow will sign off please call back if needed
[2017-10-31] MEDS ORDERED: diphenhydrAMINE HCL 25 MG CAPSULE (FP) PO ONE (20:57)
[2017-11-01] MEDS: NYSTATIN 500,000 UNITS/5 ML SUSPENSION PO SCH ×6 (00:19→23:10)
[2017-11-01] MEDS: METOPROLOL TARTRATE 50 MG TABLET (FP) PEG SCH ×3 (05:35→22:35)
[2017-11-01] MEDS: ALBUTEROL SO4 2.5/IPRATROPIUM 0.5 INH SOL 3 ML VIAL.NEB. NEB SCH ×3 (06:50→18:55)
[2017-11-01 08:09] LABS: ANION GAP 12 (8-16); CALCIUM 8.9 mg/dL (8.5-10.1); CO2 22 mmol/L (21-32); CREATININE 2.1 mg/dL (0.7-1.3); GLUCOSE,RANDOM 119 mg/dL (74-106)
--- NOTE | 2017-11-01 10:14 | DS ---
Physical Examination Vital Signs: Vital Signs Temperature 97.8 F 11/01/17 06:00 Pulse Rate 77 11/01/17 06:00 Respiratory Rate 18 11/01/17 06:00 Blood Pressure 106/70 11/01/17 06:00 O2 Sat by Pulse Oximetry (%) 97 10/31/17 21:00 Constitutional: Yes: Calm Neck: Yes: Other (trach stoma covered) Cardiovascular: Yes: Regular Rate and Rhythm, S1, S2 Respiratory: Yes: CTA Bilaterally Gastrointestinal: Yes: Normal Bowel Sounds, Soft, Other (g tube) Edema: No Neurological: Yes: Alert, Oriented Labs: CBC, BMP 10/30/17 07:15 11/01/17 07:15 Discharge Summary Reason For Visit: DEPENDENT ON VENTILATOR,AGITATION Current Active Problems Acute and chronic respiratory failure (Acute) Agitation (Acute) Atrial flutter by electrocardiogram (Acute) Fungemia (Acute) Oral thrush (Acute) Respiratory distress (Acute) Tracheostomy malfunction (Acute) Urinary retention (Acute) Hospital Course: - Primary Care Physician PCP: Chava Hung (Carmelita Boss) - Admission Chief Complaint: Fall, Sepsis, Fever, Anemia, respiratory distress History of Present Illness: 67yo man with over 1 month stay in ICU who was discharged yesterday to [facility] after he fell out of bed (unwitnessed) and was found supine on the floor. While at [facility] he was agitated and pulling at ventilator tubing. He was given haldol and Ativan 2mg en route. Briefly, he has PMH of EtOH abuse, severe sepsis 2/2 R cavitary PNA s/p chest tube, MSSA bacteremia, vertebral osteomyelitis, recurrent Afib, and chronic vent dependence. 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 now on med surg floor ALEXANDRA : followed by renal, diuretic stopped for fever tachycardia : fungemia on caspofungin completed 14 days abx course seen by optho as well unremarkable exam seen by ID MSSGeorge bacteremia vertebral osteo: finished abx course got 56 days of abx patient decanulated, stoma covered off the vent patient is now on chopped diet gets tube feeds at night plan to wean off the g tube gi saw patient regarding anemia as well Condition: Stable - Instructions Diet, Activity, Other Instructions: renal chopped diet nepro tube feeding from 8:00pm to 8:00am at 50ml /hr with 65ml/hr water flushes PT/OT weekly BMP Disposition: [facility]ENT[facility] FACILITY - Home Medications Comprehensive Discharge Medication List: Ambulatory Orders Amiodarone HCl [Cordarone -] 200 mg PEG DAILY tablet 10/15/17 Folic Acid - 1 mg GT DAILY 10/15/17 Metoprolol Tartrate [Lopressor -] 50 mg PEG TID tablet 10/15/17 Mupirocin Cream [Bactroban 2% Cream -] 1 applic TP BID tube 10/15/17 Quetiapine Fumarate [Seroquel -] 25 mg PEG HS tablet 10/15/17 Thiamine HCl [Vitamin B1 -] 100 mg GT DAILY 10/15/17
--- NOTE | 2017-11-01 10:34 | PN ---
Progress Note (short form) - Note Progress Note: last dose of vancomycin is tmw discharge back to [facility] once cleared by renal Problem List - Problems (1) Acute and chronic respiratory failure Code(s): J96.20 - ACUTE AND CHR RESP FAILURE, UNSP W HYPOXIA OR HYPERCAPNIA Qualifiers: Respiratory failure complication: hypoxia and hypercapnia Qualified Code(s) : J96.21 - Acute and chronic respiratory failure with hypoxia; J96.22 - Acute and chronic respiratory failure with hypercapnia; J96.22 - Acute and chronic respiratory failure with hypercapnia; J96.22 - Acute and chronic respiratory failure with hypercapnia (2) Paroxysmal atrial fibrillation Code(s): I48.0 - PAROXYSMAL ATRIAL FIBRILLATION (3) Staphylococcus aureus bacteremia Code(s): R78.81 - BACTEREMIA (4) Fungemia Code(s): B49 - UNSPECIFIED MYCOSIS (5) Acute kidney injury Code(s): N17.9 - ACUTE KIDNEY FAILURE, UNSPECIFIED (6) Anemia Code(s): D64.9 - ANEMIA, UNSPECIFIED Qualifiers: Anemia type: unspecified type Qualified Code(s): D64.9 - Anemia, unspecified
[2017-11-01] MEDS ORDERED: PT OWN MED DRAWER 7, Y5N ONE ×2 (10:59→23:15)
[2017-11-01] MEDS: AMIODARONE HCL 200 MG TABLET (FP) PEG SCH (11:04)
[2017-11-01] MEDS: amLODIPine BESYLATE 2.5 MG TABLET (FP) PEG SCH (11:04)
[2017-11-01] MEDS: HEPARIN NA (PORCINE) 5,000 UNITS/ML 1ML VIAL SQ SCH ×2 (11:05→22:35)
[2017-11-01] MEDS: OLANZapine 2.5 MG TABLET PO SCH ×2 (11:05→22:35)
[2017-11-01] MEDS: FOLIC ACID 1 MG TABLET (FP) GT SCH (11:05)
--- NOTE | 2017-11-01 11:19 | PN ---
Progress Note, Physician History of Present Illness: No events. Awake, alert. - Current Medication List Current Medications: Active Medications Acetaminophen (Tylenol Oral Solution -) 650 mg GT Q6H PRN PRN Reason: FEVER OR PAIN Last Admin: 10/30/17 23:15 Dose: 650 mg Albuterol Sulfate (Ventolin 0.083% Nebulizer Soln -) 1 amp NEB Q4H PRN PRN Reason: SHORT OF BREATH/WHEEZING Last Admin: 10/28/17 10:05 Dose: 1 amp Albuterol/Ipratropium (Duoneb -) 1 amp NEB QIDR [facility] Last Admin: 11/01/17 06:50 Dose: Not Given Amiodarone HCl (Cordarone -) 200 mg PEG DAILY [facility] Last Admin: 11/01/17 11:04 Dose: 200 mg Amlodipine Besylate (Norvasc -) 2.5 mg PEG DAILY [facility] Last Admin: 11/01/17 11:04 Dose: 2.5 mg Folic Acid (Folic Acid -) 1 mg GT DAILY [facility] Last Admin: 11/01/17 11:05 Dose: 1 mg Heparin Sodium (Porcine) (Heparin -) 5,000 unit SQ BID [facility] Last Admin: 11/01/17 11:05 Dose: 5,000 unit Vancomycin HCl 500 mg/ (Dextrose) 100 mls @ 100 mls/hr IVPB DAILY@1600 [facility] Last Admin: 10/31/17 15:21 Dose: 100 mls/hr Metoprolol Tartrate (Lopressor -) 50 mg PEG TID [facility] Last Admin: 11/01/17 05:35 Dose: 50 mg Nystatin (Nystatin Oral Suspension -) 500,000 units PO Q6HPO [facility] Last Admin: 11/01/17 05:35 Dose: 500,000 units Olanzapine (Zyprexa -) 2.5 mg PO BID [facility] Last Admin: 11/01/17 11:05 Dose: 2.5 mg - Objective Vital Signs: Vital Signs Temperature 97.8 F 11/01/17 10:30 Pulse Rate 74 11/01/17 10:30 Respiratory Rate 18 11/01/17 10:30 Blood Pressure 128/82 11/01/17 10:30 O2 Sat by Pulse Oximetry (%) 97 10/31/17 21:00 Constitutional: Yes: No Distress, Calm Eyes: Yes: Conjunctiva Clear HENT: Yes: Atraumatic Respiratory: Yes: Regular Gastrointestinal: Yes: Normal Bowel Sounds, Soft. No: Rectal Bleeding, Tenderness, Tenderness, Rebound, Vomiting Neurological: Yes: Alert Labs: CBC, BMP 10/30/17 07:15 11/01/17 07:15 INR, PTT INR 1.11 (0.82-1.09) 10/15/17 21:16 Laboratory Results - last 24 hr 11/01/17 07:15 Sodium 130 L Potassium 4.5 Chloride 96 L Carbon Dioxide 22 Anion Gap 12 BUN 48 H Creatinine 2.1 H Random Glucose 119 H Calcium 8.9 Laboratory Results - last 24 hr 11/01/17 07:15 Sodium 130 L Potassium 4.5 Chloride 96 L Carbon Dioxide 22 Anion Gap 12 BUN 48 H Creatinine 2.1 H Random Glucose 119 H Calcium 8.9 CBCD WBC 9.3 K/mm3 (4.0-10.0) 10/30/17 07:15 RBC 2.88 M/mm3 (4.00-5.60) L 10/30/17 07:15 Hgb 8.5 GM/dL (11.7-16.9) L 10/30/17 07:15 Hct 25.2 % (35.4-49) L 10/30/17 07:15 MCV 87.5 fl (80-96) 10/30/17 07:15 MCHC 33.7 g/dl (32.0-35.9) 10/30/17 07:15 RDW 15.6 % (11.9-15.9) 10/30/17 07:15 Plt Count 292 K/MM3 (134-434) 10/30/17 07:15 MPV 7.3 fl (7.5-11.1) L 10/30/17 07:15 CMP Sodium 130 mmol/L (136-145) L 11/01/17 07:15 Potassium 4.5 mmol/L (3.5-5.1) 11/01/17 07:15 Chloride 96 mmol/L (98-107) L 11/01/17 07:15 Carbon Dioxide 22 mmol/L (21-32) 11/01/17 07:15 Anion Gap 12 (8-16) 11/01/17 07:15 BUN 48 mg/dL (7-18) H 11/01/17 07:15 Creatinine 2.1 mg/dL (0.7-1.3) H 11/01/17 07:15 Creat Clearance w eGFR 33.39 (>60) 10/30/17 07:15 Calcium 8.9 mg/dL (8.5-10.1) 11/01/17 07:15 Total Bilirubin 0.4 mg/dL (0.2-1.0) 10/30/17 07:15 AST 25 U/L (15-37) D 10/30/17 07:15 ALT 36 U/L (12-78) 10/30/17 07:15 Alkaline Phosphatase 136 U/L (45-117) H 10/30/17 07:15 Total Protein 8.2 g/dl (6.4-8.2) 10/30/17 07:15 Albumin 2.7 g/dl (3.4-5.0) L 10/30/17 07:15 Problem List - Problems (1) Acute and chronic respiratory failure Code(s): J96.20 - ACUTE AND CHR RESP FAILURE, UNSP W HYPOXIA OR HYPERCAPNIA Qualifiers: Respiratory failure complication: hypoxia and hypercapnia Qualified Code(s) : J96.21 - Acute and chronic respiratory failure with hypoxia; J96.22 - Acute and chronic respiratory failure with hypercapnia; J96.22 - Acute and chronic respiratory failure with hypercapnia; J96.22 - Acute and chronic respiratory failure with hypercapnia (2) Abuse, drug or alcohol Code(s): F19.10 - OTHER PSYCHOACTIVE SUBSTANCE ABUSE, UNCOMPLICATED (3) Acute diastolic heart failure Code(s): I50.31 - ACUTE DIASTOLIC (CONGESTIVE) HEART FAILURE (4) Alkaline phosphatase elevation Code(s): R74.8 - ABNORMAL LEVELS OF OTHER SERUM ENZYMES (5) Anemia Code(s): D64.9 - ANEMIA, UNSPECIFIED Qualifiers: Anemia type: unspecified type Qualified Code(s): D64.9 - Anemia, unspecified (6) Rectal ulcer Code(s): K62.6 - ULCER OF ANUS AND RECTUM Assessment/Plan Hematochezia on admission, anemia. Colonoscopy on Saturday will follow
--- NOTE | 2017-11-01 13:49 | PN ---
Progress Note (short form) - Note Progress Note: PULMONARY OFFERS NO COMPLAINTS WANTS TO EAT "REAL FOOD" VSS/AFEBRILE ANICTERIC DISTANT BUT CLEAR B/L BREATH SOUNDS S1WS2 BS+ NO EDEMA LABS/MEDS/NOTES/IMAGES REVIEWED Dislodged Tracheostomy now decannulated Vent Dependent Chronic Respiratory Failure improving Fungemia Atrial Fibrillation with RVR Acute on Chronic Renal Failure Loculated Pleural Effusions Anemia - antibiotics/antifungals per ID - pt decannulated - PO as tolerated - DVT/GI prophylaxis - Colonoscopy on Saturday Kun PIZANO MD
--- NOTE | 2017-11-01 14:14 | PN ---
Progress Note (short form) - Note Progress Note: patient to stay in hospital for completion of abx and colonscopy on saturday NPO saturday midnight Problem List - Problems (1) Acute and chronic respiratory failure Code(s): J96.20 - ACUTE AND CHR RESP FAILURE, UNSP W HYPOXIA OR HYPERCAPNIA Qualifiers: Respiratory failure complication: hypoxia and hypercapnia Qualified Code(s) : J96.21 - Acute and chronic respiratory failure with hypoxia; J96.22 - Acute and chronic respiratory failure with hypercapnia; J96.22 - Acute and chronic respiratory failure with hypercapnia; J96.22 - Acute and chronic respiratory failure with hypercapnia (2) Paroxysmal atrial fibrillation Code(s): I48.0 - PAROXYSMAL ATRIAL FIBRILLATION (3) Staphylococcus aureus bacteremia Code(s): R78.81 - BACTEREMIA (4) Fungemia Code(s): B49 - UNSPECIFIED MYCOSIS (5) Acute kidney injury Code(s): N17.9 - ACUTE KIDNEY FAILURE, UNSPECIFIED (6) Anemia Code(s): D64.9 - ANEMIA, UNSPECIFIED Qualifiers: Anemia type: unspecified type Qualified Code(s): D64.9 - Anemia, unspecified
--- NOTE | 2017-11-01 14:50 | PN ---
Progress Note, Physician History of Present Illness: Pt seen and examined at bedside. He is awake and alert. He denies shortness of breath. - Current Medication List Current Medications: Active Medications Acetaminophen (Tylenol Oral Solution -) 650 mg GT Q6H PRN PRN Reason: FEVER OR PAIN Last Admin: 10/30/17 23:15 Dose: 650 mg Albuterol Sulfate (Ventolin 0.083% Nebulizer Soln -) 1 amp NEB Q4H PRN PRN Reason: SHORT OF BREATH/WHEEZING Last Admin: 10/28/17 10:05 Dose: 1 amp Albuterol/Ipratropium (Duoneb -) 1 amp NEB QIDR [facility] Last Admin: 11/01/17 11:41 Dose: 1 amp Amiodarone HCl (Cordarone -) 200 mg PEG DAILY [facility] Last Admin: 11/01/17 11:04 Dose: 200 mg Amlodipine Besylate (Norvasc -) 2.5 mg PEG DAILY [facility] Last Admin: 11/01/17 11:04 Dose: 2.5 mg Bisacodyl (Dulcolax -) 20 mg PO ONCE ONE Stop: 11/03/17 15:01 Folic Acid (Folic Acid -) 1 mg GT DAILY [facility] Last Admin: 11/01/17 11:05 Dose: 1 mg Heparin Sodium (Porcine) (Heparin -) 5,000 unit SQ BID [facility] Last Admin: 11/01/17 11:05 Dose: 5,000 unit Vancomycin HCl 500 mg/ (Dextrose) 100 mls @ 100 mls/hr IVPB DAILY@1600 [facility] Last Admin: 10/31/17 15:21 Dose: 100 mls/hr Metoprolol Tartrate (Lopressor -) 50 mg PEG TID [facility] Last Admin: 11/01/17 14:09 Dose: Not Given Nystatin (Nystatin Oral Suspension -) 500,000 units PO Q6HPO [facility] Last Admin: 11/01/17 14:23 Dose: 500,000 units Olanzapine (Zyprexa -) 2.5 mg PO BID [facility] Last Admin: 11/01/17 11:05 Dose: 2.5 mg Polyethylene Glycol/Electrolytes (Golytely Solution -) 4,000 ml PO ONCE ONE Stop: 11/03/17 17:01 - Objective Vital Signs: Vital Signs Temperature 98.8 F 11/01/17 14:23 Pulse Rate 77 11/01/17 14:23 Respiratory Rate 18 11/01/17 14:23 Blood Pressure 101/63 11/01/17 14:23 O2 Sat by Pulse Oximetry (%) 96 11/01/17 09:00 Constitutional: Yes: Calm Eyes: Yes: Conjunctiva Clear HENT: Yes: Atraumatic Cardiovascular: Yes: S1, S2 Respiratory: Yes: CTA Bilaterally Gastrointestinal: Yes: Soft Genitourinary: Yes: WNL Edema: No Neurological: Yes: Oriented Psychiatric: Yes: Oriented Labs: CBC, BMP 10/30/17 07:15 11/01/17 07:15 INR, PTT INR 1.11 (0.82-1.09) 10/15/17 21:16 Problem List - Problems (1) Acute and chronic respiratory failure Code(s): J96.20 - ACUTE AND CHR RESP FAILURE, UNSP W HYPOXIA OR HYPERCAPNIA Qualifiers: Respiratory failure complication: hypoxia and hypercapnia Qualified Code(s) : J96.21 - Acute and chronic respiratory failure with hypoxia; J96.22 - Acute and chronic respiratory failure with hypercapnia; J96.22 - Acute and chronic respiratory failure with hypercapnia; J96.22 - Acute and chronic respiratory failure with hypercapnia (2) Agitation Code(s): R45.1 - RESTLESSNESS AND AGITATION (3) Atrial flutter by electrocardiogram Code(s): I48.92 - UNSPECIFIED ATRIAL FLUTTER (4) Respiratory distress Code(s): R06.03 - ACUTE RESPIRATORY DISTRESS (5) Acute kidney injury Code(s): N17.9 - ACUTE KIDNEY FAILURE, UNSPECIFIED (6) Anemia Code(s): D64.9 - ANEMIA, UNSPECIFIED Qualifiers: Anemia type: unspecified type Qualified Code(s): D64.9 - Anemia, unspecified Assessment/Plan Current Medications Generic Name Dose Route Start Last Admin Trade Name Freq PRN Reason Stop Dose Admin Acetaminophen 650 mg 10/19/17 03:41 10/30/17 23:15 Tylenol Oral Solution - GT 650 mg Q6H PRN Administration FEVER OR PAIN Albuterol Sulfate 1 amp 10/24/17 09:32 10/28/17 10:05 Ventolin 0.083% Nebulizer Soln - NEB 1 amp Q4H PRN Administration SHORT OF BREATH/WHEEZING Albuterol/Ipratropium 1 amp 10/25/17 12:00 11/01/17 11:41 Duoneb - NEB 1 amp QIDR [facility] Administration Amiodarone HCl 200 mg 10/19/17 10:00 11/01/17 11:04 Cordarone - PEG 200 mg DAILY [facility] Administration Amlodipine Besylate 2.5 mg 10/20/17 11:15 11/01/17 11:04 Norvasc - PEG 2.5 mg DAILY [facility] Administration Bisacodyl 20 mg 11/03/17 15:00 Dulcolax - PO 11/03/17 15:01 ONCE ONE Folic Acid 1 mg 10/19/17 10:00 11/01/17 11:05 Folic Acid - GT 1 mg DAILY [facility] Administration Heparin Sodium (Porcine) 5,000 unit 10/26/17 12:30 11/01/17 11:05 Heparin - SQ 5,000 unit BID [facility] Administration Vancomycin HCl 500 mg/ 100 mls @ 100 mls/hr 10/22/17 16:00 10/31/17 15:21 Dextrose IVPB 100 mls/hr DAILY@1600 [facility] Administration Metoprolol Tartrate 50 mg 10/19/17 06:00 11/01/17 14:09 Lopressor - PEG Not Given TID [facility] Nystatin 500,000 units 10/30/17 18:00 11/01/17 14:23 Nystatin Oral Suspension - PO 500,000 units Q6HPO [facility] Administration Olanzapine 2.5 mg 10/19/17 10:00 11/01/17 11:05 Zyprexa - PO 2.5 mg BID [facility] Administration Polyethylene Glycol/Electrolytes 4,000 ml 11/03/17 17:00 Golytely Solution - PO 11/03/17 17:01 ONCE ONE Impression 1. ALEXANDRA 2. fluid overload 3. hypoalbuminemia 4. respiratory failure requiring intubation 5. anemia 6. etoh abuse 7. fevers 8. hypokalemia 9. pleural effusion 10. hypernatremia resolved 11. GI bleed 12. rash 13. a flutter 14. fungemia 15. hyponatremia Plan - restrict free water - will give a salt tab - repeat labs in am - torsemide on hold for now - ALEXANDRA likely from [facility]N that is slowly resolving Dr Peres
[2017-11-01] MEDS ORDERED: SODIUM CHLORIDE 1 GM TABLET PO ONE (15:20)
--- NOTE | 2017-11-01 15:20 | PN ---
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 Selected Entries 10/31/17 10/31/17 10/31/17 06:00 09:00 14:40 Breakfast 50% Lunch 50% Temperature 97.8 F 98.2 F 10/31/17 10/31/17 11/01/17 19:08 20:46 02:00 Breakfast Lunch Temperature 98.1 F 98.7 F 97.9 F 11/01/17 11/01/17 11/01/17 06:00 10:00 10:30 Breakfast 75% Lunch Temperature 97.8 F 97.8 F 11/01/17 14:23 Breakfast Lunch 75% Temperature 98.8 F Laboratory Tests 10/30/17 07:15 WBC 9.3 Suggest Chopped and one soft to chew item per tray eg pancake with syrup, fish, quiche, and thin liquid Monitor tolerance Goal to wean from GT.
[2017-11-01] MEDS: VANCOMYCIN 500 MG in DEXTROSE 5%-WATER - 100 ML IVPB SCH (16:28)
--- NOTE | 2017-11-01 16:56 | PN ---
Progress Note, Physician History of Present Illness: Comfortable trach decannulated, denies dyspnea, anxious to have diet upgraded. - Current Medication List Current Medications: Active Medications Acetaminophen (Tylenol Oral Solution -) 650 mg GT Q6H PRN PRN Reason: FEVER OR PAIN Last Admin: 10/30/17 23:15 Dose: 650 mg Albuterol Sulfate (Ventolin 0.083% Nebulizer Soln -) 1 amp NEB Q4H PRN PRN Reason: SHORT OF BREATH/WHEEZING Last Admin: 10/28/17 10:05 Dose: 1 amp Albuterol/Ipratropium (Duoneb -) 1 amp NEB QIDR [facility] Last Admin: 11/01/17 11:41 Dose: 1 amp Amiodarone HCl (Cordarone -) 200 mg PEG DAILY [facility] Last Admin: 11/01/17 11:04 Dose: 200 mg Amlodipine Besylate (Norvasc -) 2.5 mg PEG DAILY [facility] Last Admin: 11/01/17 11:04 Dose: 2.5 mg Bisacodyl (Dulcolax -) 20 mg PO ONCE ONE Stop: 11/03/17 15:01 Folic Acid (Folic Acid -) 1 mg GT DAILY [facility] Last Admin: 11/01/17 11:05 Dose: 1 mg Heparin Sodium (Porcine) (Heparin -) 5,000 unit SQ BID [facility] Last Admin: 11/01/17 11:05 Dose: 5,000 unit Vancomycin HCl 500 mg/ (Dextrose) 100 mls @ 100 mls/hr IVPB DAILY@1600 [facility] Last Admin: 11/01/17 16:28 Dose: 100 mls/hr Metoprolol Tartrate (Lopressor -) 50 mg PEG TID [facility] Last Admin: 11/01/17 14:09 Dose: Not Given Nystatin (Nystatin Oral Suspension -) 500,000 units PO Q6HPO [facility] Last Admin: 11/01/17 14:23 Dose: 500,000 units Olanzapine (Zyprexa -) 2.5 mg PO BID [facility] Last Admin: 11/01/17 11:05 Dose: 2.5 mg Polyethylene Glycol/Electrolytes (Golytely Solution -) 4,000 ml PO ONCE ONE Stop: 11/03/17 17:01 - Objective Vital Signs: Vital Signs Temperature 98.8 F 11/01/17 14:23 Pulse Rate 77 11/01/17 14:23 Respiratory Rate 18 11/01/17 14:23 Blood Pressure 101/63 11/01/17 14:23 O2 Sat by Pulse Oximetry (%) 96 11/01/17 09:00 Constitutional: Yes: No Distress, Calm Neck: Yes: Supple Cardiovascular: Yes: Regular Rate and Rhythm Respiratory: Yes: Regular, Diminished, On Nasal O2 Gastrointestinal: Yes: Soft, Hypoactive Bowel Sounds Edema: Yes Labs: CBC, BMP 10/30/17 07:15 11/01/17 07:15 INR, PTT INR 1.11 (0.82-1.09) 10/15/17 21:16 Problem List - Problems (1) Acute and chronic respiratory failure Code(s): J96.20 - ACUTE AND CHR RESP FAILURE, UNSP W HYPOXIA OR HYPERCAPNIA Qualifiers: Respiratory failure complication: hypoxia and hypercapnia Qualified Code(s) : J96.21 - Acute and chronic respiratory failure with hypoxia; J96.22 - Acute and chronic respiratory failure with hypercapnia; J96.22 - Acute and chronic respiratory failure with hypercapnia; J96.22 - Acute and chronic respiratory failure with hypercapnia (2) Agitation Code(s): R45.1 - RESTLESSNESS AND AGITATION (3) Acute kidney injury Code(s): N17.9 - ACUTE KIDNEY FAILURE, UNSPECIFIED (4) Alkaline phosphatase elevation Code(s): R74.8 - ABNORMAL LEVELS OF OTHER SERUM ENZYMES (5) Anemia Code(s): D64.9 - ANEMIA, UNSPECIFIED Qualifiers: Anemia type: unspecified type Qualified Code(s): D64.9 - Anemia, unspecified (6) Paroxysmal atrial fibrillation Code(s): I48.0 - PAROXYSMAL ATRIAL FIBRILLATION (7) Status post insertion of percutaneous endoscopic gastrostomy (PEG) tube Code(s): Z93.1 - GASTROSTOMY STATUS (8) Status post tracheostomy Code(s): Z93.0 - TRACHEOSTOMY STATUS (9) Acute diastolic heart failure Code(s): I50.31 - ACUTE DIASTOLIC (CONGESTIVE) HEART FAILURE (10) Fungemia Code(s): B49 - UNSPECIFIED MYCOSIS Assessment/Plan 1. Fungemia vs. colonization 2. Paroxysmal atrial fibrillation [id number] score of 2, likely not an ideal candidate for custodial anticoagulation 3. History of acute hypoxic respiratory failure, post tracheotomy since decannulated 4. History of cavitating pneumonia, MSSA bacteremia, post septic shock no evidence of endocarditis by ALISA criteria 5. History of diastolic LV dysfunction with class I-II NYHA congestive heart failure, compensated/euvolemic 6. History of osteomyelitis T9-T10 discitis 7. History of loculated pleural effusion post chest tube insertion 8. History of alcohol dependence 9. Acute on chronic renal insufficiency referable to ATN 10. Anemia 11. Hypokalemia 12. Hypernatremia PLAN: 1. Continue Lopressor 50 tid 2. Continue Amiodarone 200 qd 3. Continue Norvasc 2.5 qd 4. Defer custodial A/C considering his presentation and co-morbidities 5. Consider transfusion to maintain Hgb equal or > 8.0 6. Demadex 10 qd with monitor electrolytes and renal function 7. Antifungal and antibiotic course as per ID service 8. Tracheostomy was decannulated and patient appears comfortable, enteral feeds 9. DVT and GI prophylaxis 10. Colonoscopy Saturday 11. Diet advanced as tolerated for evental wean off PEG
[2017-11-02] MEDS: ALBUTEROL SO4 2.5/IPRATROPIUM 0.5 INH SOL 3 ML VIAL.NEB. NEB SCH ×3 (00:05→11:11)
[2017-11-02] MEDS: NYSTATIN 500,000 UNITS/5 ML SUSPENSION PO SCH ×3 (06:45→17:45)
[2017-11-02] MEDS: METOPROLOL TARTRATE 50 MG TABLET (FP) PEG SCH ×3 (06:45→22:04)
[2017-11-02 08:30] LABS: CALCIUM 9.2 mg/dL (8.5-10.1)
[2017-11-02 08:36] LABS: ALBUMIN 2.8 g/dl (3.4-5.0); ALK PHOS 118 U/L (45-117); ANION GAP 11 (8-16); BILIRUBIN,TOTAL 0.6 mg/dL (0.2-1.0); CO2 24 mmol/L (21-32); CREATININE 2.2 mg/dL (0.7-1.3); GLUCOSE,RANDOM 104 mg/dL (74-106); SGOT/AST 20 U/L (15-37); SGPT/ALT 30 U/L (12-78); TOT PROT 8.1 g/dl (6.4-8.2)
[2017-11-02] MEDS ORDERED: PT OWN MED DRAWER 7, Y5N ONE ×2 (10:08→16:57)
[2017-11-02] MEDS: HEPARIN NA (PORCINE) 5,000 UNITS/ML 1ML VIAL SQ SCH ×2 (10:15→22:04)
[2017-11-02] MEDS: FOLIC ACID 1 MG TABLET (FP) GT SCH (10:16)
[2017-11-02] MEDS: AMIODARONE HCL 200 MG TABLET (FP) PEG SCH (10:16)
[2017-11-02] MEDS: amLODIPine BESYLATE 2.5 MG TABLET (FP) PEG SCH (10:16)
[2017-11-02] MEDS: OLANZapine 2.5 MG TABLET PO SCH ×2 (10:16→22:04)
--- NOTE | 2017-11-02 13:40 | PN ---
Progress Note, Physician - Current Medication List Current Medications: Active Medications Acetaminophen (Tylenol Oral Solution -) 650 mg GT Q6H PRN PRN Reason: FEVER OR PAIN Last Admin: 10/30/17 23:15 Dose: 650 mg Amiodarone HCl (Cordarone -) 200 mg PEG DAILY [facility] Last Admin: 11/02/17 10:16 Dose: 200 mg Amlodipine Besylate (Norvasc -) 2.5 mg PEG DAILY [facility] Last Admin: 11/02/17 10:16 Dose: 2.5 mg Bisacodyl (Dulcolax -) 20 mg PO ONCE ONE Stop: 11/03/17 15:01 Folic Acid (Folic Acid -) 1 mg GT DAILY [facility] Last Admin: 11/02/17 10:16 Dose: 1 mg Heparin Sodium (Porcine) (Heparin -) 5,000 unit SQ BID [facility] Last Admin: 11/02/17 10:15 Dose: 5,000 unit Vancomycin HCl 500 mg/ (Dextrose) 100 mls @ 100 mls/hr IVPB DAILY@1600 [facility] Last Admin: 11/01/17 16:28 Dose: 100 mls/hr Metoprolol Tartrate (Lopressor -) 50 mg PEG TID [facility] Last Admin: 11/02/17 13:04 Dose: 50 mg Nystatin (Nystatin Oral Suspension -) 500,000 units PO Q6HPO [facility] Last Admin: 11/02/17 13:03 Dose: 500,000 units Olanzapine (Zyprexa -) 2.5 mg PO BID [facility] Last Admin: 11/02/17 10:16 Dose: 2.5 mg Polyethylene Glycol/Electrolytes (Golytely Solution -) 4,000 ml PO ONCE ONE Stop: 11/03/17 17:01 - Objective Vital Signs: Vital Signs Temperature 97.3 F L 11/02/17 10:25 Pulse Rate 92 H 11/02/17 10:25 Respiratory Rate 18 11/02/17 10:25 Blood Pressure 121/71 11/02/17 10:25 O2 Sat by Pulse Oximetry (%) 95 11/02/17 09:35 Cardiovascular: Yes: S1, S2 Respiratory: Yes: Regular, CTA Bilaterally Gastrointestinal: Yes: Normal Bowel Sounds, Soft. No: Tenderness Labs: CBC, BMP 10/30/17 07:15 11/02/17 07:25 INR, PTT INR 1.11 (0.82-1.09) 11/28/17 21:16 Assessment/Plan Problems (1) Acute and chronic respiratory failure Assessment/Plan: decanulated trach stoma covered Code(s): J96.20 - ACUTE AND CHR RESP FAILURE, UNSP W HYPOXIA OR HYPERCAPNIA Qualifiers: Respiratory failure complication: hypoxia and hypercapnia Qualified Code(s) : J96.21 - Acute and chronic respiratory failure with hypoxia; J96.22 - Acute and chronic respiratory failure with hypercapnia; J96.22 - Acute and chronic respiratory failure with hypercapnia; J96.22 - Acute and chronic respiratory failure with hypercapnia (2) Paroxysmal atrial fibrillation Assessment/Plan: continue amiodarone and metoprolol Code(s): I48.0 - PAROXYSMAL ATRIAL FIBRILLATION (3) Staphylococcus aureus bacteremia Assessment/Plan: on iv vancomycin for bacteremia with osteomylitis day 55 Code(s): R78.81 - BACTEREMIA (4) Fungemia Assessment/Plan: Fungemia --COMPLETED abx optho consult noted echo no vegetations Microbiology 10/16/17 02:35 Blood - Peripheral Venous Yeast/Fungus Identification - Final Mary Glabrata Code(s): B49 - UNSPECIFIED MYCOSIS (5) Acute kidney injury Assessment/Plan: stop torsemide Code(s): N17.9 - ACUTE KIDNEY FAILURE, UNSPECIFIED (6) Anemia Assessment/Plan: FOR COLONOSCOPY off AC given anemia transfuse if Hgb<8 Code(s): D64.9 - ANEMIA, UNSPECIFIED Qualifiers: Anemia type: unspecified type Qualified Code(s): D64.9 - Anemia, unspecified
--- NOTE | 2017-11-02 14:18 | PN ---
Progress Note (short form) - Note Progress Note: PULMONARY RESTING COMFORTABLY VSS/AFEBRILE ANICTERIC DISTANT BUT CLEAR B/L BREATH SOUNDS S1WS2 BS+ NO EDEMA LABS/MEDS/NOTES/IMAGES REVIEWED Dislodged Tracheostomy now decannulated Vent Dependent Chronic Respiratory Failure improving Fungemia Atrial Fibrillation with RVR Acute on Chronic Renal Failure Loculated Pleural Effusions Anemia - antibiotics/antifungals per ID - pt decannulated - PO as tolerated - DVT/GI prophylaxis - Colonoscopy on Saturday Kun PIZANO MD
--- NOTE | 2017-11-02 15:53 | PN ---
Progress Note, Physician History of Present Illness: Pt seen and examined at bedside. He is awake and appears comfortable. - Current Medication List Current Medications: Active Medications Acetaminophen (Tylenol Oral Solution -) 650 mg GT Q6H PRN PRN Reason: FEVER OR PAIN Last Admin: 10/30/17 23:15 Dose: 650 mg Amiodarone HCl (Cordarone -) 200 mg PEG DAILY [facility] Last Admin: 11/02/17 10:16 Dose: 200 mg Amlodipine Besylate (Norvasc -) 2.5 mg PEG DAILY [facility] Last Admin: 11/02/17 10:16 Dose: 2.5 mg Bisacodyl (Dulcolax -) 20 mg PO ONCE ONE Stop: 11/03/17 15:01 Folic Acid (Folic Acid -) 1 mg GT DAILY [facility] Last Admin: 11/02/17 10:16 Dose: 1 mg Heparin Sodium (Porcine) (Heparin -) 5,000 unit SQ BID [facility] Last Admin: 11/02/17 10:15 Dose: 5,000 unit Vancomycin HCl 500 mg/ (Dextrose) 100 mls @ 100 mls/hr IVPB DAILY@1600 [facility] Last Admin: 11/01/17 16:28 Dose: 100 mls/hr Metoprolol Tartrate (Lopressor -) 50 mg PEG TID [facility] Last Admin: 11/02/17 13:04 Dose: 50 mg Nystatin (Nystatin Oral Suspension -) 500,000 units PO Q6HPO [facility] Last Admin: 11/02/17 13:03 Dose: 500,000 units Olanzapine (Zyprexa -) 2.5 mg PO BID [facility] Last Admin: 11/02/17 10:16 Dose: 2.5 mg Polyethylene Glycol/Electrolytes (Golytely Solution -) 4,000 ml PO ONCE ONE Stop: 11/03/17 17:01 - Objective Vital Signs: Vital Signs Temperature 98.4 F 11/02/17 14:45 Pulse Rate 73 11/02/17 14:45 Respiratory Rate 20 11/02/17 14:45 Blood Pressure 109/74 11/02/17 14:45 O2 Sat by Pulse Oximetry (%) 95 11/02/17 09:35 Constitutional: Yes: Calm Eyes: Yes: Conjunctiva Clear HENT: Yes: Atraumatic Cardiovascular: Yes: S1, S2 Respiratory: Yes: CTA Bilaterally Gastrointestinal: Yes: Soft Genitourinary: Yes: WNL Musculoskeletal: Yes: WNL Edema: Yes Edema: LLE: Trace, RLE: Trace Neurological: Yes: Oriented Psychiatric: Yes: Oriented Labs: CBC, BMP 10/30/17 07:15 11/02/17 07:25 INR, PTT INR 1.11 (0.82-1.09) 10/15/17 21:16 Problem List - Problems (1) Acute and chronic respiratory failure Code(s): J96.20 - ACUTE AND CHR RESP FAILURE, UNSP W HYPOXIA OR HYPERCAPNIA Qualifiers: Respiratory failure complication: hypoxia and hypercapnia Qualified Code(s) : J96.21 - Acute and chronic respiratory failure with hypoxia; J96.22 - Acute and chronic respiratory failure with hypercapnia; J96.22 - Acute and chronic respiratory failure with hypercapnia; J96.22 - Acute and chronic respiratory failure with hypercapnia (2) Agitation Code(s): R45.1 - RESTLESSNESS AND AGITATION (3) Atrial flutter by electrocardiogram Code(s): I48.92 - UNSPECIFIED ATRIAL FLUTTER (4) Respiratory distress Code(s): R06.03 - ACUTE RESPIRATORY DISTRESS (5) Acute kidney injury Code(s): N17.9 - ACUTE KIDNEY FAILURE, UNSPECIFIED (6) Anemia Code(s): D64.9 - ANEMIA, UNSPECIFIED Qualifiers: Anemia type: unspecified type Qualified Code(s): D64.9 - Anemia, unspecified Assessment/Plan Current Medications Generic Name Dose Route Start Last Admin Trade Name Freq PRN Reason Stop Dose Admin Acetaminophen 650 mg 10/19/17 03:41 10/30/17 23:15 Tylenol Oral Solution - GT 650 mg Q6H PRN Administration FEVER OR PAIN Amiodarone HCl 200 mg 10/19/17 10:00 11/02/17 10:16 Cordarone - PEG 200 mg DAILY [facility] Administration Amlodipine Besylate 2.5 mg 10/20/17 11:15 11/02/17 10:16 Norvasc - PEG 2.5 mg DAILY [facility] Administration Bisacodyl 20 mg 11/03/17 15:00 Dulcolax - PO 11/03/17 15:01 ONCE ONE Folic Acid 1 mg 10/19/17 10:00 11/02/17 10:16 Folic Acid - GT 1 mg DAILY [facility] Administration Heparin Sodium (Porcine) 5,000 unit 10/26/17 12:30 11/02/17 10:15 Heparin - SQ 5,000 unit BID [facility] Administration Vancomycin HCl 500 mg/ 100 mls @ 100 mls/hr 10/22/17 16:00 11/01/17 16:28 Dextrose IVPB 100 mls/hr DAILY@1600 [facility] Administration Metoprolol Tartrate 50 mg 10/19/17 06:00 11/02/17 13:04 Lopressor - PEG 50 mg TID [facility] Administration Nystatin 500,000 units 10/30/17 18:00 11/02/17 13:03 Nystatin Oral Suspension - PO 500,000 units Q6HPO [facility] Administration Olanzapine 2.5 mg 10/19/17 10:00 11/02/17 10:16 Zyprexa - PO 2.5 mg BID [facility] Administration Polyethylene Glycol/Electrolytes 4,000 ml 11/03/17 17:00 Golytely Solution - PO 11/03/17 17:01 ONCE ONE Impression 1. ALEXANDRA 2. fluid overload 3. hypoalbuminemia 4. respiratory failure requiring intubation 5. anemia 6. etoh abuse 7. fevers 8. hypokalemia 9. pleural effusion 10. hypernatremia resolved 11. GI bleed 12. rash 13. a flutter 14. fungemia 15. hyponatremia Plan - sodium is improving - discussed with nursing team - will decrease free water with evening feeds - speech/swallow follow up - restrict free water - ALEXANDRA likely from [facility] that is slowly resolving Dr Peres
[2017-11-02] MEDS: VANCOMYCIN 500 MG in DEXTROSE 5%-WATER - 100 ML IVPB SCH (17:30)
[2017-11-02] MEDS ORDERED: clonazePAM 0.5 MG TABLET PO ONE (21:15)
[2017-11-03] MEDS: NYSTATIN 500,000 UNITS/5 ML SUSPENSION PO SCH ×4 (05:03→17:28)
[2017-11-03] MEDS: METOPROLOL TARTRATE 50 MG TABLET (FP) PEG SCH ×3 (06:09→21:41)
[2017-11-03] MEDS ORDERED: PT OWN MED DRAWER 7, Y5N ONE ×2 (09:54→15:45)
[2017-11-03] MEDS: AMIODARONE HCL 200 MG TABLET (FP) PEG SCH (09:55)
[2017-11-03] MEDS: FOLIC ACID 1 MG TABLET (FP) GT SCH (09:55)
[2017-11-03] MEDS: OLANZapine 2.5 MG TABLET PO SCH ×2 (09:56→21:41)
[2017-11-03] MEDS: HEPARIN NA (PORCINE) 5,000 UNITS/ML 1ML VIAL SQ SCH ×2 (09:56→21:41)
[2017-11-03] MEDS: amLODIPine BESYLATE 2.5 MG TABLET (FP) PEG SCH (09:56)
--- NOTE | 2017-11-03 13:35 | PN ---
Progress Note, Physician - Current Medication List Current Medications: Active Medications Acetaminophen (Tylenol Oral Solution -) 650 mg GT Q6H PRN PRN Reason: FEVER OR PAIN Last Admin: 10/30/17 23:15 Dose: 650 mg Amiodarone HCl (Cordarone -) 200 mg PEG DAILY [facility] Last Admin: 11/03/17 09:55 Dose: 200 mg Amlodipine Besylate (Norvasc -) 2.5 mg PEG DAILY [facility] Last Admin: 11/03/17 09:56 Dose: 2.5 mg Bisacodyl (Dulcolax -) 20 mg PO ONCE ONE Stop: 11/03/17 15:01 Folic Acid (Folic Acid -) 1 mg GT DAILY [facility] Last Admin: 11/03/17 09:55 Dose: 1 mg Heparin Sodium (Porcine) (Heparin -) 5,000 unit SQ BID [facility] Last Admin: 11/03/17 09:56 Dose: 5,000 unit Vancomycin HCl 500 mg/ (Dextrose) 100 mls @ 100 mls/hr IVPB DAILY@1600 [facility] Last Admin: 11/02/17 17:30 Dose: 100 mls/hr Metoprolol Tartrate (Lopressor -) 50 mg PEG TID [facility] Last Admin: 11/03/17 13:26 Dose: 50 mg Nystatin (Nystatin Oral Suspension -) 500,000 units PO Q6HPO [facility] Last Admin: 11/03/17 13:26 Dose: 500,000 units Olanzapine (Zyprexa -) 2.5 mg PO BID [facility] Last Admin: 11/03/17 09:56 Dose: 2.5 mg Polyethylene Glycol/Electrolytes (Golytely Solution -) 4,000 ml PO ONCE ONE Stop: 11/03/17 17:01 - Objective Vital Signs: Vital Signs Temperature 97.5 F L 11/03/17 06:00 Pulse Rate 81 11/03/17 10:42 Respiratory Rate 20 11/03/17 06:00 Blood Pressure 136/68 11/03/17 06:00 O2 Sat by Pulse Oximetry (%) 96 11/03/17 10:42 Cardiovascular: Yes: S1, S2 Respiratory: Yes: Regular, CTA Bilaterally Gastrointestinal: Yes: Normal Bowel Sounds, Soft Labs: CBC, BMP 10/30/17 07:15 11/02/17 07:25 INR, PTT INR 1.11 (0.82-1.09) 10/15/17 21:16 Assessment/Plan Problems (1) Acute and chronic respiratory failure Assessment/Plan: decanulated trach stoma covered Code(s): J96.20 - ACUTE AND CHR RESP FAILURE, UNSP W HYPOXIA OR HYPERCAPNIA Qualifiers: Respiratory failure complication: hypoxia and hypercapnia Qualified Code(s) : J96.21 - Acute and chronic respiratory failure with hypoxia; J96.22 - Acute and chronic respiratory failure with hypercapnia; J96.22 - Acute and chronic respiratory failure with hypercapnia; J96.22 - Acute and chronic respiratory failure with hypercapnia (2) Paroxysmal atrial fibrillation Assessment/Plan: continue amiodarone and metoprolol Code(s): I48.0 - PAROXYSMAL ATRIAL FIBRILLATION (3) Staphylococcus aureus bacteremia Assessment/Plan: off iv vancomycin for bacteremia with osteomylitis Code(s): R78.81 - BACTEREMIA (4) Fungemia Assessment/Plan: Fungemia --COMPLETED abx optho consult noted echo no vegetations Microbiology 10/16/17 02:35 Blood - Peripheral Venous Yeast/Fungus Identification - Final Mary Glabrata Code(s): B49 - UNSPECIFIED MYCOSIS (5) Acute kidney injury Assessment/Plan: stop torsemide Code(s): N17.9 - ACUTE KIDNEY FAILURE, UNSPECIFIED (6) Anemia Assessment/Plan: FOR COLONOSCOPY off AC given anemia transfuse if Hgb<8 Code(s): D64.9 - ANEMIA, UNSPECIFIED Qualifiers: Anemia type: unspecified type Qualified Code(s): D64.9 - Anemia, unspecified
--- NOTE | 2017-11-03 14:23 | PN ---
Progress Note, Physician History of Present Illness: Pt seen and examined at bedside. He is awake and alert. He denies shortness of breath. - Current Medication List Current Medications: Active Medications Acetaminophen (Tylenol Oral Solution -) 650 mg GT Q6H PRN PRN Reason: FEVER OR PAIN Last Admin: 10/30/17 23:15 Dose: 650 mg Amiodarone HCl (Cordarone -) 200 mg PEG DAILY [facility] Last Admin: 11/03/17 09:55 Dose: 200 mg Amlodipine Besylate (Norvasc -) 2.5 mg PEG DAILY [facility] Last Admin: 11/03/17 09:56 Dose: 2.5 mg Bisacodyl (Dulcolax -) 20 mg PO ONCE ONE Stop: 11/03/17 15:01 Folic Acid (Folic Acid -) 1 mg GT DAILY [facility] Last Admin: 11/03/17 09:55 Dose: 1 mg Heparin Sodium (Porcine) (Heparin -) 5,000 unit SQ BID [facility] Last Admin: 11/03/17 09:56 Dose: 5,000 unit Vancomycin HCl 500 mg/ (Dextrose) 100 mls @ 100 mls/hr IVPB DAILY@1600 [facility] Last Admin: 11/02/17 17:30 Dose: 100 mls/hr Metoprolol Tartrate (Lopressor -) 50 mg PEG TID [facility] Last Admin: 11/03/17 13:26 Dose: 50 mg Nystatin (Nystatin Oral Suspension -) 500,000 units PO Q6HPO [facility] Last Admin: 11/03/17 13:26 Dose: 500,000 units Olanzapine (Zyprexa -) 2.5 mg PO BID [facility] Last Admin: 11/03/17 09:56 Dose: 2.5 mg Polyethylene Glycol/Electrolytes (Golytely Solution -) 4,000 ml PO ONCE ONE Stop: 11/03/17 17:01 - Objective Vital Signs: Vital Signs Temperature 97.5 F L 11/03/17 06:00 Pulse Rate 81 11/03/17 10:42 Respiratory Rate 20 11/03/17 06:00 Blood Pressure 136/68 11/03/17 06:00 O2 Sat by Pulse Oximetry (%) 96 11/03/17 10:42 Constitutional: Yes: Calm Eyes: Yes: Conjunctiva Clear Cardiovascular: Yes: S1, S2 Respiratory: Yes: CTA Bilaterally Gastrointestinal: Yes: Normal Bowel Sounds, Soft, Other (peg) Genitourinary: Yes: WNL Musculoskeletal: Yes: WNL Edema: No Neurological: Yes: Oriented Psychiatric: Yes: Oriented Labs: CBC, BMP 10/30/17 07:15 11/02/17 07:25 INR, PTT INR 1.11 (0.82-1.09) 10/15/17 21:16 Problem List - Problems (1) Acute and chronic respiratory failure Code(s): J96.20 - ACUTE AND CHR RESP FAILURE, UNSP W HYPOXIA OR HYPERCAPNIA Qualifiers: Respiratory failure complication: hypoxia and hypercapnia Qualified Code(s) : J96.21 - Acute and chronic respiratory failure with hypoxia; J96.22 - Acute and chronic respiratory failure with hypercapnia; J96.22 - Acute and chronic respiratory failure with hypercapnia; J96.22 - Acute and chronic respiratory failure with hypercapnia (2) Agitation Code(s): R45.1 - RESTLESSNESS AND AGITATION (3) Atrial flutter by electrocardiogram Code(s): I48.92 - UNSPECIFIED ATRIAL FLUTTER (4) Respiratory distress Code(s): R06.03 - ACUTE RESPIRATORY DISTRESS (5) Acute kidney injury Code(s): N17.9 - ACUTE KIDNEY FAILURE, UNSPECIFIED (6) Anemia Code(s): D64.9 - ANEMIA, UNSPECIFIED Qualifiers: Anemia type: unspecified type Qualified Code(s): D64.9 - Anemia, unspecified Assessment/Plan Current Medications Generic Name Dose Route Start Last Admin Trade Name Freq PRN Reason Stop Dose Admin Acetaminophen 650 mg 10/19/17 03:41 10/30/17 23:15 Tylenol Oral Solution - GT 650 mg Q6H PRN Administration FEVER OR PAIN Amiodarone HCl 200 mg 10/19/17 10:00 11/03/17 09:55 Cordarone - PEG 200 mg DAILY [facility] Administration Amlodipine Besylate 2.5 mg 10/20/17 11:15 11/03/17 09:56 Norvasc - PEG 2.5 mg DAILY [facility] Administration Bisacodyl 20 mg 11/03/17 15:00 Dulcolax - PO 11/03/17 15:01 ONCE ONE Folic Acid 1 mg 10/19/17 10:00 11/03/17 09:55 Folic Acid - GT 1 mg DAILY [facility] Administration Heparin Sodium (Porcine) 5,000 unit 10/26/17 12:30 11/03/17 09:56 Heparin - SQ 5,000 unit BID [facility] Administration Vancomycin HCl 500 mg/ 100 mls @ 100 mls/hr 10/22/17 16:00 11/02/17 17:30 Dextrose IVPB 100 mls/hr DAILY@1600 [facility] Administration Metoprolol Tartrate 50 mg 10/19/17 06:00 11/03/17 13:26 Lopressor - PEG 50 mg TID [facility] Administration Nystatin 500,000 units 10/30/17 18:00 11/03/17 13:26 Nystatin Oral Suspension - PO 500,000 units Q6HPO [facility] Administration Olanzapine 2.5 mg 10/19/17 10:00 11/03/17 09:56 Zyprexa - PO 2.5 mg BID [facility] Administration Polyethylene Glycol/Electrolytes 4,000 ml 11/03/17 17:00 Golytely Solution - PO 11/03/17 17:01 ONCE ONE Impression 1. ALEXANDRA 2. fluid overload 3. hypoalbuminemia 4. respiratory failure requiring intubation 5. anemia 6. etoh abuse 7. fevers 8. hypokalemia 9. pleural effusion 10. hypernatremia resolved 11. GI bleed 12. rash 13. a flutter 14. fungemia 15. hyponatremia Plan - repeat labs in am - cont current diet - speech/swallow follow up - restrict free water - ALEXANDRA likely from [facility] that is slowly resolving Dr Peres
[2017-11-03] MEDS ORDERED: BISACODYL 5 MG TABLET.DR (FP) PO ONE (15:00)
[2017-11-03] MEDS: VANCOMYCIN 500 MG in DEXTROSE 5%-WATER - 100 ML IVPB SCH (15:50)
[2017-11-03] MEDS ORDERED: PEG 3350/NA SULF BICARB CL/KCL 4000 ML SOLN.RECON PO ONE (17:00)
--- NOTE | 2017-11-03 20:48 | PN ---
Progress Note, Physician Chief Complaint: Currently trache decannulated Awake and await colonoscopy tomorrow History of Present Illness: Patient was seen and examined. Awake. Chart was reviewed Denies chest pain or palpitations - Current Medication List Current Medications: Active Medications Acetaminophen (Tylenol Oral Solution -) 650 mg GT Q6H PRN PRN Reason: FEVER OR PAIN Last Admin: 10/30/17 23:15 Dose: 650 mg Amiodarone HCl (Cordarone -) 200 mg PEG DAILY [facility] Last Admin: 11/03/17 09:55 Dose: 200 mg Amlodipine Besylate (Norvasc -) 2.5 mg PEG DAILY [facility] Last Admin: 11/03/17 09:56 Dose: 2.5 mg Folic Acid (Folic Acid -) 1 mg GT DAILY [facility] Last Admin: 11/03/17 09:55 Dose: 1 mg Heparin Sodium (Porcine) (Heparin -) 5,000 unit SQ BID [facility] Last Admin: 11/03/17 09:56 Dose: 5,000 unit Vancomycin HCl 500 mg/ (Dextrose) 100 mls @ 100 mls/hr IVPB DAILY@1600 [facility] Last Admin: 11/03/17 15:50 Dose: 100 mls/hr Metoprolol Tartrate (Lopressor -) 50 mg PEG TID [facility] Last Admin: 11/03/17 13:26 Dose: 50 mg Nystatin (Nystatin Oral Suspension -) 500,000 units PO Q6HPO [facility] Last Admin: 11/03/17 17:28 Dose: 500,000 units Olanzapine (Zyprexa -) 2.5 mg PO BID [facility] Last Admin: 11/03/17 09:56 Dose: 2.5 mg - Objective Vital Signs: Vital Signs Temperature 97.5 F L 11/03/17 14:41 Pulse Rate 70 11/03/17 14:41 Respiratory Rate 18 11/03/17 14:41 Blood Pressure 105/65 11/03/17 14:41 O2 Sat by Pulse Oximetry (%) 96 11/03/17 10:42 Eyes: Yes: PERRL HENT: Yes: Atraumatic Neck: Yes: Supple Cardiovascular: Yes: Regular Rate and Rhythm, S1, S2 Respiratory: Yes: CTA Bilaterally Gastrointestinal: Yes: Normal Bowel Sounds, Soft. No: Tenderness Edema: No Labs: 11/02/17 07:25 Problem List - Problems (1) Acute and chronic respiratory failure Code(s): J96.20 - ACUTE AND CHR RESP FAILURE, UNSP W HYPOXIA OR HYPERCAPNIA Qualifiers: Respiratory failure complication: hypoxia and hypercapnia Qualified Code(s) : J96.21 - Acute and chronic respiratory failure with hypoxia; J96.22 - Acute and chronic respiratory failure with hypercapnia; J96.22 - Acute and chronic respiratory failure with hypercapnia; J96.22 - Acute and chronic respiratory failure with hypercapnia (2) Fungemia Code(s): B49 - UNSPECIFIED MYCOSIS (3) Abuse, drug or alcohol Code(s): F19.10 - OTHER PSYCHOACTIVE SUBSTANCE ABUSE, UNCOMPLICATED (4) Acute diastolic heart failure Code(s): I50.31 - ACUTE DIASTOLIC (CONGESTIVE) HEART FAILURE (5) Acute kidney injury Code(s): N17.9 - ACUTE KIDNEY FAILURE, UNSPECIFIED (6) Anemia Code(s): D64.9 - ANEMIA, UNSPECIFIED Qualifiers: Anemia type: unspecified type Qualified Code(s): D64.9 - Anemia, unspecified (7) History of alcohol abuse Code(s): Z87.898 - PERSONAL HISTORY OF OTHER SPECIFIED CONDITIONS (8) Hypernatremia Code(s): E87.0 - HYPEROSMOLALITY AND HYPERNATREMIA (9) Hypokalemia Code(s): E87.6 - HYPOKALEMIA (10) Paroxysmal atrial fibrillation Code(s): I48.0 - PAROXYSMAL ATRIAL FIBRILLATION (11) Pneumonia Code(s): J18.9 - PNEUMONIA, UNSPECIFIED ORGANISM Qualifiers: Pneumonia type: aspiration pneumonia (12) Respiratory failure with hypoxia Code(s): J96.91 - RESPIRATORY FAILURE, UNSPECIFIED WITH HYPOXIA Qualifiers: Chronicity: acute Qualified Code(s): J96.01 - Acute respiratory failure with hypoxia (13) Status post tracheostomy Code(s): Z93.0 - TRACHEOSTOMY STATUS (14) Thrombocytopenia Code(s): D69.6 - THROMBOCYTOPENIA, UNSPECIFIED (15) Withdrawal symptoms, alcohol Code(s): F10.239 - ALCOHOL DEPENDENCE WITH WITHDRAWAL, UNSPECIFIED Qualifiers: Complication of substance-induced condition: uncomplicated Qualified Code(s ): F10.230 - Alcohol dependence with withdrawal, uncomplicated Assessment/Plan 1. Fungemia vs. colonization 2. 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 History of acute hypoxic respiratory failure, post tracheotomy 4. History of cavitating pneumonia, MSSA bacteremia, post septic shock no evidence of endocarditis by ALISA criteria 5. History of diastolic LV dysfunction with class I-II NYHA congestive heart failure, compensated/euvolemic 6. History of osteomyelitis T9-T10 discitis 7. History of loculated pleural effusion post chest tube insertion 8. History of alcohol dependence 9. Acute renal insufficiency 10. Anemia 11. Hypokalemia 12. Hypernatremia PLAN: 1. Continue Lopressor 2. Continue Amiodarone 3. Continue Norvasc 4. 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 Consider transfusion to maintain Hgb equal or > 8.0. Await colonoscopy tomorrow. No absolute contraindication cardiac standpoint 6. Monitor electrolytes and renal function 7. Antifungal and antibiotic as per ID service Further plans are to follow Jordon Gtz MD
[2017-11-04] MEDS: NYSTATIN 500,000 UNITS/5 ML SUSPENSION PO SCH ×4 (01:36→18:16)
[2017-11-04] MEDS: METOPROLOL TARTRATE 50 MG TABLET (FP) PEG SCH ×2 (05:09→22:57)
[2017-11-04] MEDS ORDERED: LIDOCAINE HCL 2% (20ML MULTI-DOSE VIAL) NR ONE (07:50)
[2017-11-04] MEDS ORDERED: PROPOFOL 20 ML ONE ×3 (07:59)
[2017-11-04 08:06] LABS: ALBUMIN 2.9 g/dl (3.4-5.0); ANION GAP 12 (8-16); CALCIUM 9.7 mg/dL (8.5-10.1); CO2 27 mmol/L (21-32); GLUCOSE,RANDOM 93 mg/dL (74-106); SGOT/AST 12 U/L (15-37); SGPT/ALT 25 U/L (12-78)
[2017-11-04 08:07] LABS: ALK PHOS 109 U/L (45-117); BILIRUBIN,TOTAL 0.4 mg/dL (0.2-1.0)
--- NOTE | 2017-11-04 08:55 | PROC ---
Endoscopy Procedure Endoscopy procedure completed. Please see scanned procedure report. sigmoid diverticulosis, otherwise normal colonoscopy. Resume previous diet
[2017-11-04 09:52] LABS: BASO % 1.1 % (0-2.0); EOS % 2.6 % (0-4.5); MCH 29.2 pg (25.7-33.7); MCHC 33.2 g/dl (32.0-35.9); MEAN CELL VOLUME 87.9 fl (80-96); MEAN PLT VOLUME 7.1 fl (7.5-11.1); NEUT % 63.2 % (42.8-82.8); PLATELET COUNT 338 K/MM3 (134-434); RDW 15.6 % (11.9-15.9); WHITE BLOOD COUNT 6.6 K/mm3 (4.0-10.0)
[2017-11-04] MEDS: OLANZapine 2.5 MG TABLET PO SCH ×2 (10:30→22:57)
[2017-11-04] MEDS: FOLIC ACID 1 MG TABLET (FP) GT SCH (10:30)
[2017-11-04] MEDS: amLODIPine BESYLATE 2.5 MG TABLET (FP) PEG SCH (10:30)
[2017-11-04] MEDS: AMIODARONE HCL 200 MG TABLET (FP) PEG SCH (10:30)
[2017-11-04] MEDS: HEPARIN NA (PORCINE) 5,000 UNITS/ML 1ML VIAL SQ SCH ×2 (10:30→22:57)
--- NOTE | 2017-11-04 11:27 | PN ---
Progress Note, Physician History of Present Illness: Underwent colonoscopy showing sigmoid diverticulosis, tolerated diet, no complaints. - Current Medication List Current Medications: Active Medications Acetaminophen (Tylenol Oral Solution -) 650 mg GT Q6H PRN PRN Reason: FEVER OR PAIN Last Admin: 10/30/17 23:15 Dose: 650 mg Amiodarone HCl (Cordarone -) 200 mg PEG DAILY [facility] Last Admin: 11/04/17 10:30 Dose: 200 mg Amlodipine Besylate (Norvasc -) 2.5 mg PEG DAILY [facility] Last Admin: 11/04/17 10:30 Dose: 2.5 mg Folic Acid (Folic Acid -) 1 mg GT DAILY [facility] Last Admin: 11/04/17 10:30 Dose: 1 mg Heparin Sodium (Porcine) (Heparin -) 5,000 unit SQ BID [facility] Last Admin: 11/04/17 10:30 Dose: 5,000 unit Metoprolol Tartrate (Lopressor -) 50 mg PEG TID [facility] Last Admin: 11/04/17 05:09 Dose: Not Given Nystatin (Nystatin Oral Suspension -) 500,000 units PO Q6HPO [facility] Last Admin: 11/04/17 05:09 Dose: Not Given Olanzapine (Zyprexa -) 2.5 mg PO BID [facility] Last Admin: 11/04/17 10:30 Dose: 2.5 mg - Objective Vital Signs: Vital Signs Temperature 97.7 F 11/04/17 10:23 Pulse Rate 70 11/04/17 10:23 Respiratory Rate 18 11/04/17 10:23 Blood Pressure 128/87 11/04/17 10:23 O2 Sat by Pulse Oximetry (%) 100 11/04/17 09:13 Constitutional: Yes: No Distress, Calm Neck: Yes: Supple Cardiovascular: Yes: Regular Rate and Rhythm Respiratory: Yes: Regular, Diminished Gastrointestinal: Yes: Normal Bowel Sounds, Soft Edema: No Labs: CBC, BMP 11/04/17 08:30 11/04/17 07:15 INR, PTT INR 1.11 (0.82-1.09) 10/15/17 21:16 Problem List - Problems (1) Acute and chronic respiratory failure Code(s): J96.20 - ACUTE AND CHR RESP FAILURE, UNSP W HYPOXIA OR HYPERCAPNIA Qualifiers: Respiratory failure complication: hypoxia and hypercapnia Qualified Code(s) : J96.21 - Acute and chronic respiratory failure with hypoxia; J96.22 - Acute and chronic respiratory failure with hypercapnia; J96.22 - Acute and chronic respiratory failure with hypercapnia; J96.22 - Acute and chronic respiratory failure with hypercapnia (2) Agitation Code(s): R45.1 - RESTLESSNESS AND AGITATION (3) Acute kidney injury Code(s): N17.9 - ACUTE KIDNEY FAILURE, UNSPECIFIED (4) Alkaline phosphatase elevation Code(s): R74.8 - ABNORMAL LEVELS OF OTHER SERUM ENZYMES (5) Anemia Code(s): D64.9 - ANEMIA, UNSPECIFIED Qualifiers: Anemia type: unspecified type Qualified Code(s): D64.9 - Anemia, unspecified (6) Paroxysmal atrial fibrillation Code(s): I48.0 - PAROXYSMAL ATRIAL FIBRILLATION (7) Status post insertion of percutaneous endoscopic gastrostomy (PEG) tube Code(s): Z93.1 - GASTROSTOMY STATUS (8) Acute diastolic heart failure Code(s): I50.31 - ACUTE DIASTOLIC (CONGESTIVE) HEART FAILURE (9) Fungemia Code(s): B49 - UNSPECIFIED MYCOSIS Assessment/Plan 1. Fungemia vs. colonization 2. Paroxysmal atrial fibrillation [id number] score of 2, likely not an ideal candidate for senior care anticoagulation 3. History of acute hypoxic respiratory failure, post tracheotomy since decannulated 4. History of cavitating pneumonia, MSSA bacteremia, post septic shock no evidence of endocarditis by ALISA criteria 5. History of diastolic LV dysfunction with class I-II NYHA congestive heart failure, compensated/euvolemic 6. History of osteomyelitis T9-T10 discitis 7. History of loculated pleural effusion post chest tube insertion 8. History of alcohol dependence 9. Acute on chronic renal insufficiency referable to [facility] 10. Anemia 11. Sigmoid diverticulosis PLAN: 1. Decrease Lopressor 50 bid 2. Continue Amiodarone 200 qd 3. Continue Norvasc 2.5 qd 4. Defer senior care A/C considering his presentation and co-morbidities 5. Consider transfusion to maintain Hgb equal or > 8.0 6. Completed antifungal and antibiotic course as per ID service 7. Tracheostomy was decannulated and patient is comfortable, enteral feeds 8. DVT and GI prophylaxis 9. Diet advanced as tolerated for evental wean off PEG
--- NOTE | 2017-11-04 11:52 | PN ---
Progress Note, HAND OR MACHINE PASTER - Note Progress Note: Selected Entries 11/01/17 11/01/17 11/02/17 10:00 14:23 14:45 Breakfast 75% 25% Lunch 75% 50% Supper Temperature 11/03/17 11/03/17 11/03/17 06:00 10:00 12:10 Breakfast 100% Lunch Supper Temperature 97.5 F L 97.9 F 11/03/17 11/03/17 11/03/17 14:41 18:00 22:00 Breakfast Lunch 100% Supper 100% Temperature 97.5 F L 98.1 F 97.4 F L Pt reported to be eating 100% of tray. Suggest: Chopped and one to two soft to chew item per tray eg pancake with syrup , fish, quiche, and thin liquid Supplement b/n meals eg magic cup Consider holding GT feedings, flush GT to keep functioning Monitor tolerance/sufficient nutritional intake Goal to wean from GT.
--- NOTE | 2017-11-04 13:49 | PN ---
Progress Note, Physician Chief Complaint: patient seen and examined in bed after endoscopy h/h slightly lower will repeat cbc if better will dc back to [facility] - Current Medication List Current Medications: Active Medications Acetaminophen (Tylenol Oral Solution -) 650 mg GT Q6H PRN PRN Reason: FEVER OR PAIN Last Admin: 10/30/17 23:15 Dose: 650 mg Amiodarone HCl (Cordarone -) 200 mg PEG DAILY [facility] Last Admin: 11/04/17 10:30 Dose: 200 mg Amlodipine Besylate (Norvasc -) 2.5 mg PEG DAILY [facility] Last Admin: 11/04/17 10:30 Dose: 2.5 mg Folic Acid (Folic Acid -) 1 mg GT DAILY [facility] Last Admin: 11/04/17 10:30 Dose: 1 mg Heparin Sodium (Porcine) (Heparin -) 5,000 unit SQ BID [facility] Last Admin: 11/04/17 10:30 Dose: 5,000 unit Metoprolol Tartrate (Lopressor -) 50 mg PEG BID [facility] Nystatin (Nystatin Oral Suspension -) 500,000 units PO Q6HPO [facility] Last Admin: 11/04/17 05:09 Dose: Not Given Olanzapine (Zyprexa -) 2.5 mg PO BID [facility] Last Admin: 11/04/17 10:30 Dose: 2.5 mg - Objective Vital Signs: Vital Signs Temperature 97.7 F 11/04/17 10:23 Pulse Rate 70 11/04/17 10:23 Respiratory Rate 18 11/04/17 10:23 Blood Pressure 128/87 11/04/17 10:23 O2 Sat by Pulse Oximetry (%) 100 11/04/17 09:13 Constitutional: Yes: Calm Neck: Yes: Other (trach stoma) Cardiovascular: Yes: Regular Rate and Rhythm, S1, S2 Respiratory: Yes: CTA Bilaterally Gastrointestinal: Yes: Normal Bowel Sounds, Soft Edema: No Neurological: Yes: Alert, Oriented Labs: CBC, BMP 11/04/17 08:30 11/04/17 07:15 INR, PTT INR 1.11 (0.82-1.09) 10/15/17 21:16 Problem List - Problems (1) Acute and chronic respiratory failure Assessment/Plan: decanulated trach stoma covered Code(s): J96.20 - ACUTE AND CHR RESP FAILURE, UNSP W HYPOXIA OR HYPERCAPNIA Qualifiers: Respiratory failure complication: hypoxia and hypercapnia Qualified Code(s) : J96.21 - Acute and chronic respiratory failure with hypoxia; J96.22 - Acute and chronic respiratory failure with hypercapnia; J96.22 - Acute and chronic respiratory failure with hypercapnia; J96.22 - Acute and chronic respiratory failure with hypercapnia (2) Paroxysmal atrial fibrillation Assessment/Plan: continue amiodarone and metoprolol now bid dosing Code(s): I48.0 - PAROXYSMAL ATRIAL FIBRILLATION (3) Staphylococcus aureus bacteremia Assessment/Plan: on iv vancomycin for bacteremia with osteomylitis completed abx Code(s): R78.81 - BACTEREMIA (4) Fungemia Assessment/Plan: fungemia day 14 of abx- course completed optho consult noted echo no vegetations Microbiology 10/16/17 02:35 Blood - Peripheral Venous Yeast/Fungus Identification - Final Mary Glabrata Code(s): B49 - UNSPECIFIED MYCOSIS (5) Acute kidney injury Assessment/Plan: stop torsemide Code(s): N17.9 - ACUTE KIDNEY FAILURE, UNSPECIFIED (6) Anemia Assessment/Plan: off AC given anemia s/p colonscopy no divrticulosis h/h slightly lower will recheck if h/h > 8 then discharge back to [facility] Code(s): D64.9 - ANEMIA, UNSPECIFIED Qualifiers: Anemia type: unspecified type Qualified Code(s): D64.9 - Anemia, unspecified (7) Feeding by G-tube Assessment/Plan: patient eating choped soft diet thin liquids hold night time tube feeds plan to wean off the GT feeds flush the GT with saline to keep it functioning Code(s): Z93.1 - GASTROSTOMY STATUS
--- NOTE | 2017-11-04 13:59 | PN ---
Progress Note, Physician History of Present Illness: Pt seen and examined at bedside. He is awake and alert. - Current Medication List Current Medications: Active Medications Acetaminophen (Tylenol Oral Solution -) 650 mg GT Q6H PRN PRN Reason: FEVER OR PAIN Last Admin: 10/30/17 23:15 Dose: 650 mg Amiodarone HCl (Cordarone -) 200 mg PEG DAILY [facility] Last Admin: 11/04/17 10:30 Dose: 200 mg Amlodipine Besylate (Norvasc -) 2.5 mg PEG DAILY [facility] Last Admin: 11/04/17 10:30 Dose: 2.5 mg Folic Acid (Folic Acid -) 1 mg GT DAILY [facility] Last Admin: 11/04/17 10:30 Dose: 1 mg Heparin Sodium (Porcine) (Heparin -) 5,000 unit SQ BID [facility] Last Admin: 11/04/17 10:30 Dose: 5,000 unit Metoprolol Tartrate (Lopressor -) 50 mg PEG BID [facility] Nystatin (Nystatin Oral Suspension -) 500,000 units PO Q6HPO [facility] Last Admin: 11/04/17 05:09 Dose: Not Given Olanzapine (Zyprexa -) 2.5 mg PO BID [facility] Last Admin: 11/04/17 10:30 Dose: 2.5 mg - Objective Vital Signs: Vital Signs Temperature 97.7 F 11/04/17 10:23 Pulse Rate 70 11/04/17 10:23 Respiratory Rate 18 11/04/17 10:23 Blood Pressure 128/87 11/04/17 10:23 O2 Sat by Pulse Oximetry (%) 100 11/04/17 09:13 Constitutional: Yes: Calm Eyes: Yes: Conjunctiva Clear HENT: Yes: Atraumatic Cardiovascular: Yes: S1, S2 Respiratory: Yes: Rhonchi Gastrointestinal: Yes: Soft Genitourinary: Yes: WNL Musculoskeletal: Yes: WNL Edema: No Neurological: Yes: Oriented Psychiatric: Yes: Oriented Labs: CBC, BMP 11/04/17 08:30 11/04/17 07:15 INR, PTT INR 1.11 (0.82-1.09) 10/15/17 21:16 Problem List - Problems (1) Acute and chronic respiratory failure Code(s): J96.20 - ACUTE AND CHR RESP FAILURE, UNSP W HYPOXIA OR HYPERCAPNIA Qualifiers: Respiratory failure complication: hypoxia and hypercapnia Qualified Code(s) : J96.21 - Acute and chronic respiratory failure with hypoxia; J96.22 - Acute and chronic respiratory failure with hypercapnia; J96.22 - Acute and chronic respiratory failure with hypercapnia; J96.22 - Acute and chronic respiratory failure with hypercapnia (2) Agitation Code(s): R45.1 - RESTLESSNESS AND AGITATION (3) Atrial flutter by electrocardiogram Code(s): I48.92 - UNSPECIFIED ATRIAL FLUTTER (4) Respiratory distress Code(s): R06.03 - ACUTE RESPIRATORY DISTRESS (5) Acute kidney injury Code(s): N17.9 - ACUTE KIDNEY FAILURE, UNSPECIFIED (6) Anemia Code(s): D64.9 - ANEMIA, UNSPECIFIED Qualifiers: Anemia type: unspecified type Qualified Code(s): D64.9 - Anemia, unspecified Assessment/Plan Current Medications Generic Name Dose Route Start Last Admin Trade Name Freq PRN Reason Stop Dose Admin Acetaminophen 650 mg 10/19/17 03:41 10/30/17 23:15 Tylenol Oral Solution - GT 650 mg Q6H PRN Administration FEVER OR PAIN Amiodarone HCl 200 mg 10/19/17 10:00 11/04/17 10:30 Cordarone - PEG 200 mg DAILY [facility] Administration Amlodipine Besylate 2.5 mg 10/20/17 11:15 11/04/17 10:30 Norvasc - PEG 2.5 mg DAILY [facility] Administration Folic Acid 1 mg 10/19/17 10:00 11/04/17 10:30 Folic Acid - GT 1 mg DAILY [facility] Administration Heparin Sodium (Porcine) 5,000 unit 10/26/17 12:30 11/04/17 10:30 Heparin - SQ 5,000 unit BID [facility] Administration Metoprolol Tartrate 50 mg 11/04/17 22:00 Lopressor - PEG BID [facility] Nystatin 500,000 units 10/30/17 18:00 11/04/17 05:09 Nystatin Oral Suspension - PO Not Given Q6HPO [facility] Olanzapine 2.5 mg 10/19/17 10:00 11/04/17 10:30 Zyprexa - PO 2.5 mg BID [facility] Administration Impression 1. ALEXANDRA 2. fluid overload 3. hypoalbuminemia 4. respiratory failure requiring intubation 5. anemia 6. etoh abuse 7. fevers 8. hypokalemia 9. pleural effusion 10. hypernatremia resolved 11. GI bleed 12. rash 13. a flutter 14. fungemia 15. hyponatremia Plan - will give a dose of torsemide - repeat labs in am - pt does not like the food - restrict free water - ALEXANDRA likely from [facility] that is slowly resolving Dr Peres
[2017-11-04] MEDS ORDERED: TORSEMIDE 10 MG TABLET PO ONE (14:15)
--- NOTE | 2017-11-04 14:29 | PN ---
Progress Note, Physician History of Present Illness: pulmonary alert,no distress,-tachypnea - Current Medication List Current Medications: Active Medications Acetaminophen (Tylenol Oral Solution -) 650 mg GT Q6H PRN PRN Reason: FEVER OR PAIN Last Admin: 10/30/17 23:15 Dose: 650 mg Amiodarone HCl (Cordarone -) 200 mg PEG DAILY [facility] Last Admin: 11/04/17 10:30 Dose: 200 mg Amlodipine Besylate (Norvasc -) 2.5 mg PEG DAILY [facility] Last Admin: 11/04/17 10:30 Dose: 2.5 mg Folic Acid (Folic Acid -) 1 mg GT DAILY [facility] Last Admin: 11/04/17 10:30 Dose: 1 mg Heparin Sodium (Porcine) (Heparin -) 5,000 unit SQ BID [facility] Last Admin: 11/04/17 10:30 Dose: 5,000 unit Metoprolol Tartrate (Lopressor -) 50 mg PEG BID [facility] Nystatin (Nystatin Oral Suspension -) 500,000 units PO Q6HPO [facility] Last Admin: 11/04/17 05:09 Dose: Not Given Olanzapine (Zyprexa -) 2.5 mg PO BID [facility] Last Admin: 11/04/17 10:30 Dose: 2.5 mg - Objective Vital Signs: Vital Signs Temperature 97.7 F 11/04/17 10:23 Pulse Rate 70 11/04/17 10:23 Respiratory Rate 18 11/04/17 10:23 Blood Pressure 128/87 11/04/17 10:23 O2 Sat by Pulse Oximetry (%) 100 11/04/17 09:13 Constitutional: Yes: Well Nourished, Calm Eyes: Yes: WNL HENT: Yes: WNL Neck: Yes: Supple Cardiovascular: Yes: Pulse Irregular, S1, S2 Respiratory: Yes: Diminished Gastrointestinal: Yes: Normal Bowel Sounds, Soft Extremities: Yes: WNL Edema: No Labs: CBC, BMP 11/04/17 08:30 11/04/17 07:15 INR, PTT INR 1.11 (0.82-1.09) 10/15/17 21:16 Problem List - Problems (1) Acute and chronic respiratory failure Code(s): J96.20 - ACUTE AND CHR RESP FAILURE, UNSP W HYPOXIA OR HYPERCAPNIA Qualifiers: Respiratory failure complication: hypoxia and hypercapnia Qualified Code(s) : J96.21 - Acute and chronic respiratory failure with hypoxia; J96.22 - Acute and chronic respiratory failure with hypercapnia; J96.22 - Acute and chronic respiratory failure with hypercapnia; J96.22 - Acute and chronic respiratory failure with hypercapnia (2) Agitation Code(s): R45.1 - RESTLESSNESS AND AGITATION (3) Respiratory distress Code(s): R06.03 - ACUTE RESPIRATORY DISTRESS (4) Alkaline phosphatase elevation Code(s): R74.8 - ABNORMAL LEVELS OF OTHER SERUM ENZYMES (5) Anemia Code(s): D64.9 - ANEMIA, UNSPECIFIED Qualifiers: Anemia type: unspecified type Qualified Code(s): D64.9 - Anemia, unspecified (6) History of alcohol abuse Code(s): Z87.898 - PERSONAL HISTORY OF OTHER SPECIFIED CONDITIONS (7) Paroxysmal atrial fibrillation Code(s): I48.0 - PAROXYSMAL ATRIAL FIBRILLATION (8) Pneumonia Code(s): J18.9 - PNEUMONIA, UNSPECIFIED ORGANISM Qualifiers: Pneumonia type: aspiration pneumonia (9) Respiratory failure with hypoxia Code(s): J96.91 - RESPIRATORY FAILURE, UNSPECIFIED WITH HYPOXIA Qualifiers: Chronicity: acute Qualified Code(s): J96.01 - Acute respiratory failure with hypoxia (10) Status post tracheostomy Code(s): Z93.0 - TRACHEOSTOMY STATUS Assessment/Plan A/P Vent Dependent Chronic Respiratory Failure Atrial Fibrillation with RVR Acute on Chronic Renal Failure Loculated Pleural Effusions Anemia - enteral feeds - DVT/GI prophylaxis - rate controlled - f/u chest x-rays DR SANTAMARIA
[2017-11-04] MEDS ORDERED: PT OWN MED DRAWER 7, Y5N ONE (14:38)
[2017-11-04 16:08] LABS: BASO % 0.9 % (0-2.0); EOS % 2.1 % (0-4.5); MCH 29.7 pg (25.7-33.7); MCHC 33.9 g/dl (32.0-35.9); MEAN CELL VOLUME 87.4 fl (80-96); MEAN PLT VOLUME 7.1 fl (7.5-11.1); NEUT % 68.4 % (42.8-82.8); PLATELET COUNT 381 K/MM3 (134-434); RDW 15.9 % (11.9-15.9); WHITE BLOOD COUNT 7.7 K/mm3 (4.0-10.0)
[2017-11-04] MEDS ORDERED: FUROSEMIDE 40 MG/4 ML INJECTABLE VIAL IVPUSH ONE ×2 (16:30→23:00)
--- NOTE | 2017-11-04 23:14 | PN ---
Progress Note (short form) - Note Progress Note: PAtient seen and examined No specific complaints AFVSS Cor: RSR, No murmurs, No gallops Lungs: Clear to P&A Abd: Soft, Normal bowel sounds, No organomegaly Ext:No significant edema Abnormal Lab Results 11/04/17 11/04/17 11/04/17 07:15 08:30 14:40 RBC 2.73 L 2.62 L Hgb 7.9 L 7.8 L Hct 24.0 L 22.9 L MPV 7.1 L 7.1 L Monocytes % 11.0 H 11.5 H Sodium 135 L Chloride 96 L BUN 37 H Creatinine 2.0 H AST 12 L D Albumin 2.9 L Crossmatch 11/04/17 16:30 RBC Hgb Hct MPV Monocytes % Sodium Chloride BUN Creatinine AST Albumin Crossmatch See Detail Home Medication List Medication Instructions Recorded Confirmed Type Folic Acid - 1 mg GT DAILY 10/15/17 10/15/17 History Thiamine HCl [Vitamin B1 -] 100 mg GT DAILY 10/15/17 10/15/17 History Active Medications Generic Name Dose Route Start Last Admin Trade Name Freq PRN Reason Stop Dose Admin Acetaminophen 650 mg 10/19/17 03:41 10/30/17 23:15 Tylenol Oral Solution - GT 650 mg Q6H PRN Administration FEVER OR PAIN Amiodarone HCl 200 mg 10/19/17 10:00 11/04/17 10:30 Cordarone - PEG 200 mg DAILY [facility] Administration Amlodipine Besylate 2.5 mg 10/20/17 11:15 11/04/17 10:30 Norvasc - PEG 2.5 mg DAILY [facility] Administration Folic Acid 1 mg 10/19/17 10:00 11/04/17 10:30 Folic Acid - GT 1 mg DAILY [facility] Administration Metoprolol Tartrate 50 mg 11/04/17 22:00 11/04/17 22:57 Lopressor - PEG 50 mg BID [facility] Administration Nystatin 500,000 units 10/30/17 18:00 11/05/17 06:47 Nystatin Oral Suspension - PO 500,000 units Q6HPO [facility] Administration Olanzapine 2.5 mg 10/19/17 10:00 11/04/17 22:57 Zyprexa - PO 2.5 mg BID [facility] Administration A/P 67 y/o patient with multifactorial anemia egd negative colonoscopy --diverticulosis anemia of CKD a/c on hold being transfused PRBCS for HGb 7 B12/folate--nl
[2017-11-05] MEDS: NYSTATIN 500,000 UNITS/5 ML SUSPENSION PO SCH ×4 (00:52→17:32)
[2017-11-05 09:19] LABS: ALBUMIN 3.5 g/dl (3.4-5.0); ALK PHOS 46 U/L (45-117); ANION GAP 11 (8-16); BILIRUBIN,TOTAL 0.5 mg/dL (0.2-1.0); CALCIUM 8.9 mg/dL (8.5-10.1); CO2 26 mmol/L (21-32); GLUCOSE,RANDOM 100 mg/dL (74-106); SGOT/AST 23 U/L (15-37); SGPT/ALT 43 U/L (12-78); TOT PROT 7.3 g/dl (6.4-8.2)
--- NOTE | 2017-11-05 10:16 | PN ---
Progress Note, Physician Chief Complaint: Anemia, Respiratory failure, s/p Fall History of Present Illness: NAD, tolerating PO intake, still on PEG feeding calorie count - Current Medication List Current Medications: Active Medications Acetaminophen (Tylenol Oral Solution -) 650 mg GT Q6H PRN PRN Reason: FEVER OR PAIN Last Admin: 10/30/17 23:15 Dose: 650 mg Amiodarone HCl (Cordarone -) 200 mg PEG DAILY [facility] Last Admin: 11/04/17 10:30 Dose: 200 mg Amlodipine Besylate (Norvasc -) 2.5 mg PEG DAILY [facility] Last Admin: 11/04/17 10:30 Dose: 2.5 mg Folic Acid (Folic Acid -) 1 mg GT DAILY [facility] Last Admin: 11/04/17 10:30 Dose: 1 mg Metoprolol Tartrate (Lopressor -) 50 mg PEG BID [facility] Last Admin: 11/04/17 22:57 Dose: 50 mg Nystatin (Nystatin Oral Suspension -) 500,000 units PO Q6HPO [facility] Last Admin: 11/05/17 06:47 Dose: 500,000 units Olanzapine (Zyprexa -) 2.5 mg PO BID [facility] Last Admin: 11/04/17 22:57 Dose: 2.5 mg - Objective Vital Signs: Vital Signs Temperature 98.3 F 11/05/17 05:53 Pulse Rate 72 11/05/17 05:53 Respiratory Rate 20 11/05/17 05:53 Blood Pressure 121/68 11/05/17 05:53 O2 Sat by Pulse Oximetry (%) 100 11/04/17 21:00 Constitutional: Yes: Well Nourished, No Distress, Calm Cardiovascular: Yes: Regular Rate and Rhythm Respiratory: Yes: Regular Labs: CBC, BMP 11/04/17 14:40 11/05/17 07:34 INR, PTT INR 1.11 (0.82-1.09) 10/15/17 21:16 Problem List - Problems (1) Acute and chronic respiratory failure Assessment/Plan: -Stoma site covered -breathing spontaneously from mouth Code(s): J96.20 - ACUTE AND CHR RESP FAILURE, UNSP W HYPOXIA OR HYPERCAPNIA Qualifiers: Respiratory failure complication: hypoxia and hypercapnia Qualified Code(s) : J96.21 - Acute and chronic respiratory failure with hypoxia; J96.22 - Acute and chronic respiratory failure with hypercapnia; J96.22 - Acute and chronic respiratory failure with hypercapnia; J96.22 - Acute and chronic respiratory failure with hypercapnia (2) Abuse, drug or alcohol Code(s): F19.10 - OTHER PSYCHOACTIVE SUBSTANCE ABUSE, UNCOMPLICATED (3) Anemia Assessment/Plan: -seen by Hematology -Guaiac stool x 2 negative -h/h stable Code(s): D64.9 - ANEMIA, UNSPECIFIED Qualifiers: Anemia type: unspecified type Qualified Code(s): D64.9 - Anemia, unspecified (4) Paroxysmal atrial fibrillation Code(s): I48.0 - PAROXYSMAL ATRIAL FIBRILLATION (5) Fungemia Code(s): B49 - UNSPECIFIED MYCOSIS (6) History of alcohol abuse Code(s): Z87.898 - PERSONAL HISTORY OF OTHER SPECIFIED CONDITIONS (7) Hyponatremia Code(s): E87.1 - HYPO-OSMOLALITY AND HYPONATREMIA (8) Oral thrush Code(s): B37.0 - CANDIDAL STOMATITIS Assessment/Plan see problem list patient has been refusing physical therapy
[2017-11-05 10:35] LABS: EOS % 1.9 % (0-4.5); MCH 29.4 pg (25.7-33.7); MCHC 33.7 g/dl (32.0-35.9); MEAN CELL VOLUME 87.4 fl (80-96); NEUT % 70.8 % (42.8-82.8); PLATELET COUNT 369 K/MM3 (134-434); RDW 15.4 % (11.9-15.9); WHITE BLOOD COUNT 8.9 K/mm3 (4.0-10.0)
[2017-11-05] MEDS: FOLIC ACID 1 MG TABLET (FP) GT SCH (10:50)
[2017-11-05] MEDS: OLANZapine 2.5 MG TABLET PO SCH ×2 (10:50→21:20)
[2017-11-05] MEDS: METOPROLOL TARTRATE 50 MG TABLET (FP) PEG SCH ×2 (10:50→21:20)
[2017-11-05] MEDS: amLODIPine BESYLATE 2.5 MG TABLET (FP) PEG SCH (10:50)
[2017-11-05] MEDS: AMIODARONE HCL 200 MG TABLET (FP) PEG SCH (10:50)
--- NOTE | 2017-11-05 12:33 | PN ---
Progress Note, PROCEDURES NURSE - Note Progress Note: Selected Entries 11/04/17 11/04/17 11/04/17 02:00 06:00 08:40 Breakfast Lunch Supper Temperature 97.9 F 97.8 F 98.0 F 11/04/17 11/04/17 11/04/17 09:13 10:23 14:32 Breakfast Lunch 50% Supper Temperature 98.0 F 97.7 F 97.9 F 11/04/17 11/04/17 11/05/17 18:00 19:00 01:00 Breakfast Lunch Supper 75% Temperature 97.7 F 97.5 F L 98.2 F 11/05/17 11/05/17 05:53 11:41 Breakfast 75% Lunch Supper Temperature 98.3 F Chopped and one to two soft to chew item per tray eg pancake with syrup, fish, quiche, and thin liquid Supplement b/n meals eg magic cup Now holding GT feedings, flush GT to keep functioning Tolerating diet thus far. Monitor tolerance/sufficient nutritional intake Goal to wean from GT.
--- NOTE | 2017-11-05 13:46 | PN ---
Progress Note, Physician History of Present Illness: Pt seen and examined at bedside. He is awake and alert. He denies shortness of breath. - Current Medication List Current Medications: Active Medications Acetaminophen (Tylenol Oral Solution -) 650 mg GT Q6H PRN PRN Reason: FEVER OR PAIN Last Admin: 10/30/17 23:15 Dose: 650 mg Amiodarone HCl (Cordarone -) 200 mg PEG DAILY [facility] Last Admin: 11/05/17 10:50 Dose: 200 mg Amlodipine Besylate (Norvasc -) 2.5 mg PEG DAILY [facility] Last Admin: 11/05/17 10:50 Dose: 2.5 mg Folic Acid (Folic Acid -) 1 mg GT DAILY [facility] Last Admin: 11/05/17 10:50 Dose: 1 mg Metoprolol Tartrate (Lopressor -) 50 mg PEG BID [facility] Last Admin: 11/05/17 10:50 Dose: 50 mg Nystatin (Nystatin Oral Suspension -) 500,000 units PO Q6HPO [facility] Last Admin: 11/05/17 13:20 Dose: Not Given Olanzapine (Zyprexa -) 2.5 mg PO BID [facility] Last Admin: 11/05/17 10:50 Dose: 2.5 mg - Objective Vital Signs: Vital Signs Temperature 98.3 F 11/05/17 05:53 Pulse Rate 72 11/05/17 05:53 Respiratory Rate 20 11/05/17 05:53 Blood Pressure 121/68 11/05/17 05:53 O2 Sat by Pulse Oximetry (%) 100 11/04/17 21:00 Constitutional: Yes: Calm Eyes: Yes: Conjunctiva Clear Cardiovascular: Yes: S1, S2 Respiratory: Yes: CTA Bilaterally Gastrointestinal: Yes: Soft Genitourinary: Yes: WNL Musculoskeletal: Yes: WNL Edema: No Neurological: Yes: Oriented Psychiatric: Yes: Oriented Labs: CBC, BMP 11/05/17 08:00 11/05/17 07:34 INR, PTT INR 1.11 (0.82-1.09) 10/15/17 21:16 Problem List - Problems (1) Acute and chronic respiratory failure Code(s): J96.20 - ACUTE AND CHR RESP FAILURE, UNSP W HYPOXIA OR HYPERCAPNIA Qualifiers: Respiratory failure complication: hypoxia and hypercapnia Qualified Code(s) : J96.21 - Acute and chronic respiratory failure with hypoxia; J96.22 - Acute and chronic respiratory failure with hypercapnia; J96.22 - Acute and chronic respiratory failure with hypercapnia; J96.22 - Acute and chronic respiratory failure with hypercapnia (2) Agitation Code(s): R45.1 - RESTLESSNESS AND AGITATION (3) Atrial flutter by electrocardiogram Code(s): I48.92 - UNSPECIFIED ATRIAL FLUTTER (4) Respiratory distress Code(s): R06.03 - ACUTE RESPIRATORY DISTRESS (5) Acute kidney injury Code(s): N17.9 - ACUTE KIDNEY FAILURE, UNSPECIFIED (6) Anemia Code(s): D64.9 - ANEMIA, UNSPECIFIED Qualifiers: Anemia type: unspecified type Qualified Code(s): D64.9 - Anemia, unspecified Assessment/Plan Current Medications Generic Name Dose Route Start Last Admin Trade Name Freq PRN Reason Stop Dose Admin Acetaminophen 650 mg 10/19/17 03:41 10/30/17 23:15 Tylenol Oral Solution - GT 650 mg Q6H PRN Administration FEVER OR PAIN Amiodarone HCl 200 mg 10/19/17 10:00 11/05/17 10:50 Cordarone - PEG 200 mg DAILY [facility] Administration Amlodipine Besylate 2.5 mg 10/20/17 11:15 11/05/17 10:50 Norvasc - PEG 2.5 mg DAILY [facility] Administration Folic Acid 1 mg 10/19/17 10:00 11/05/17 10:50 Folic Acid - GT 1 mg DAILY [facility] Administration Metoprolol Tartrate 50 mg 11/04/17 22:00 11/05/17 10:50 Lopressor - PEG 50 mg BID [facility] Administration Nystatin 500,000 units 10/30/17 18:00 11/05/17 13:20 Nystatin Oral Suspension - PO Not Given Q6HPO [facility] Olanzapine 2.5 mg 10/19/17 10:00 11/05/17 10:50 Zyprexa - PO 2.5 mg BID [facility] Administration Impression 1. ALEXANDRA 2. fluid overload 3. hypoalbuminemia 4. respiratory failure requiring intubation 5. anemia 6. etoh abuse 7. fevers 8. hypokalemia 9. pleural effusion 10. hypernatremia resolved 11. GI bleed 12. rash 13. a flutter 14. fungemia 15. hyponatremia Plan - repeat labs, likely lab error - cont current meds - discussed with cardio - will asses for diuretics in am - restrict free water - ALEXANDRA likely from ATN that is slowly resolving Dr Peres
--- NOTE | 2017-11-05 13:53 | PN ---
Progress Note, Physician Chief Complaint: Not in distress History of Present Illness: Patient was seen and examined. Awake. Chart was reviewed Denies chest pain or palpitations - Current Medication List Current Medications: Active Medications Acetaminophen (Tylenol Oral Solution -) 650 mg GT Q6H PRN PRN Reason: FEVER OR PAIN Last Admin: 10/30/17 23:15 Dose: 650 mg Amiodarone HCl (Cordarone -) 200 mg PEG DAILY [facility] Last Admin: 11/05/17 10:50 Dose: 200 mg Amlodipine Besylate (Norvasc -) 2.5 mg PEG DAILY [facility] Last Admin: 11/05/17 10:50 Dose: 2.5 mg Folic Acid (Folic Acid -) 1 mg GT DAILY [facility] Last Admin: 11/05/17 10:50 Dose: 1 mg Metoprolol Tartrate (Lopressor -) 50 mg PEG BID [facility] Last Admin: 11/05/17 10:50 Dose: 50 mg Nystatin (Nystatin Oral Suspension -) 500,000 units PO Q6HPO [facility] Last Admin: 11/05/17 13:20 Dose: Not Given Olanzapine (Zyprexa -) 2.5 mg PO BID [facility] Last Admin: 11/05/17 10:50 Dose: 2.5 mg - Objective Vital Signs: Vital Signs Temperature 98.3 F 11/05/17 05:53 Pulse Rate 72 11/05/17 05:53 Respiratory Rate 20 11/05/17 05:53 Blood Pressure 121/68 11/05/17 05:53 O2 Sat by Pulse Oximetry (%) 100 11/04/17 21:00 Eyes: Yes: PERRL HENT: Yes: Atraumatic Neck: Yes: Supple Cardiovascular: Yes: Regular Rate and Rhythm, S1, S2 Respiratory: Yes: CTA Bilaterally Gastrointestinal: Yes: Normal Bowel Sounds. No: Tenderness Edema: No Labs: CBC, BMP 11/05/17 08:00 11/05/17 07:34 Problem List - Problems (1) Acute and chronic respiratory failure Code(s): J96.20 - ACUTE AND CHR RESP FAILURE, UNSP W HYPOXIA OR HYPERCAPNIA Qualifiers: Respiratory failure complication: hypoxia and hypercapnia Qualified Code(s) : J96.21 - Acute and chronic respiratory failure with hypoxia; J96.22 - Acute and chronic respiratory failure with hypercapnia; J96.22 - Acute and chronic respiratory failure with hypercapnia; J96.22 - Acute and chronic respiratory failure with hypercapnia (2) Fungemia Code(s): B49 - UNSPECIFIED MYCOSIS (3) Abuse, drug or alcohol Code(s): F19.10 - OTHER PSYCHOACTIVE SUBSTANCE ABUSE, UNCOMPLICATED (4) Acute diastolic heart failure Code(s): I50.31 - ACUTE DIASTOLIC (CONGESTIVE) HEART FAILURE (5) Acute kidney injury Code(s): N17.9 - ACUTE KIDNEY FAILURE, UNSPECIFIED (6) Anemia Code(s): D64.9 - ANEMIA, UNSPECIFIED Qualifiers: Anemia type: unspecified type Qualified Code(s): D64.9 - Anemia, unspecified (7) History of alcohol abuse Code(s): Z87.898 - PERSONAL HISTORY OF OTHER SPECIFIED CONDITIONS (8) Hypernatremia Code(s): E87.0 - HYPEROSMOLALITY AND HYPERNATREMIA (9) Hypokalemia Code(s): E87.6 - HYPOKALEMIA (10) Paroxysmal atrial fibrillation Code(s): I48.0 - PAROXYSMAL ATRIAL FIBRILLATION (11) Pneumonia Code(s): J18.9 - PNEUMONIA, UNSPECIFIED ORGANISM Qualifiers: Pneumonia type: aspiration pneumonia (12) Respiratory failure with hypoxia Code(s): J96.91 - RESPIRATORY FAILURE, UNSPECIFIED WITH HYPOXIA Qualifiers: Chronicity: acute Qualified Code(s): J96.01 - Acute respiratory failure with hypoxia (13) Status post tracheostomy Code(s): Z93.0 - TRACHEOSTOMY STATUS (14) Thrombocytopenia Code(s): D69.6 - THROMBOCYTOPENIA, UNSPECIFIED (15) Withdrawal symptoms, alcohol Code(s): F10.239 - ALCOHOL DEPENDENCE WITH WITHDRAWAL, UNSPECIFIED Qualifiers: Complication of substance-induced condition: uncomplicated Qualified Code(s ): F10.230 - Alcohol dependence with withdrawal, uncomplicated Assessment/Plan 1. Fungemia vs. colonization 2. 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 History of acute hypoxic respiratory failure, post tracheotomy 4. History of cavitating pneumonia, MSSA bacteremia, post septic shock no evidence of endocarditis by ALISA criteria 5. History of diastolic LV dysfunction with class I-II NYHA congestive heart failure, compensated/euvolemic 6. History of osteomyelitis T9-T10 discitis 7. History of loculated pleural effusion post chest tube insertion 8. History of alcohol dependence 9. Acute renal insufficiency 10. Anemia post colonoscopy - diverticulosis 11. Hypokalemia 12. Hypernatremia PLAN: 1. Continue Lopressor 2. Continue Amiodarone 3. Continue Norvasc 4. Defer correction A/C considering his presentation and co-morbidities 5. Consider transfusion to maintain Hgb equal or > 8.0. 6. Repeat electrolytes and renal function - discrepancy noted Further plans are to follow Jordon Gtz MD
--- NOTE | 2017-11-05 14:00 | PN ---
Progress Note (short form) - Note Progress Note: Awake and alert. NAD. Tolerating PO intake. No acute events overnight. Intake & Output 11/02/17 11/03/17 11/04/17 11/05/17 23:59 23:59 23:59 23:59 Intake Total 1450 2250 1550 400 Output Total 200 1700 2000 1000 Balance 1250 550 -450 -600 Weight 167 lb 3.2 oz Last Vital Signs Temp Pulse Resp BP Pulse Ox 98.3 F 72 20 121/68 100 11/05/17 05:53 11/05/17 05:53 11/05/17 05:53 11/05/17 05:53 11/04/17 21:00 Active Medications Acetaminophen (Tylenol Oral Solution -) 650 mg GT Q6H PRN PRN Reason: FEVER OR PAIN Last Admin: 10/30/17 23:15 Dose: 650 mg Amiodarone HCl (Cordarone -) 200 mg PEG DAILY [facility] Last Admin: 11/05/17 10:50 Dose: 200 mg Amlodipine Besylate (Norvasc -) 2.5 mg PEG DAILY [facility] Last Admin: 11/05/17 10:50 Dose: 2.5 mg Folic Acid (Folic Acid -) 1 mg GT DAILY [facility] Last Admin: 11/05/17 10:50 Dose: 1 mg Metoprolol Tartrate (Lopressor -) 50 mg PEG BID [facility] Last Admin: 11/05/17 10:50 Dose: 50 mg Nystatin (Nystatin Oral Suspension -) 500,000 units PO Q6HPO [facility] Last Admin: 11/05/17 13:20 Dose: Not Given Olanzapine (Zyprexa -) 2.5 mg PO BID [facility] Last Admin: 11/05/17 10:50 Dose: 2.5 mg Constitutional: Yes: Awake and alert, NAD Eyes: Yes: WNL HENT: Yes: WNL Neck: Yes: Supple Cardiovascular: Yes: Pulse Irregular, S1, S2 Respiratory: Yes: Diminished at the bases Gastrointestinal: Yes: Normal Bowel Sounds, Soft Extremities: Yes: WNL Edema: No Labs: Laboratory Results - last 24 hr 11/04/17 11/04/17 11/05/17 14:40 16:30 07:34 WBC 7.7 RBC 2.62 L Hgb 7.8 L Hct 22.9 L MCV 87.4 MCH 29.7 MCHC 33.9 RDW 15.9 Plt Count 381 MPV 7.1 L Neutrophils % 68.4 Lymphocytes % 17.1 D Monocytes % 11.5 H Eosinophils % 2.1 Basophils % 0.9 Sodium 142 Potassium 3.7 Chloride 105 Carbon Dioxide 26 Anion Gap 11 BUN 8 D Creatinine 1.0 D Creat Clearance w eGFR > 60 Random Glucose 100 Calcium 8.9 Total Bilirubin 0.5 D AST 23 D ALT 43 D Alkaline Phosphatase 46 D Total Protein 7.3 Albumin 3.5 D Blood Type O NEGATIVE Antibody Screen Negative Crossmatch See Detail 11/05/17 08:00 WBC 8.9 RBC 3.42 L D Hgb 10.1 L D Hct 29.9 L D MCV 87.4 MCH 29.4 MCHC 33.7 RDW 15.4 Plt Count 369 MPV 7.0 L Neutrophils % 70.8 Lymphocytes % 16.0 Monocytes % 10.3 H Eosinophils % 1.9 Basophils % 1.0 Sodium Potassium Chloride Carbon Dioxide Anion Gap BUN Creatinine Creat Clearance w eGFR Random Glucose Calcium Total Bilirubin AST ALT Alkaline Phosphatase Total Protein Albumin Blood Type Antibody Screen Crossmatch Problem List - Problems (1) Acute and chronic respiratory failure Code(s): J96.20 - ACUTE AND CHR RESP FAILURE, UNSP W HYPOXIA OR HYPERCAPNIA Qualifiers: Respiratory failure complication: hypoxia and hypercapnia Qualified Code(s) : J96.21 - Acute and chronic respiratory failure with hypoxia; J96.22 - Acute and chronic respiratory failure with hypercapnia; J96.22 - Acute and chronic respiratory failure with hypercapnia; J96.22 - Acute and chronic respiratory failure with hypercapnia (2) Agitation Code(s): R45.1 - RESTLESSNESS AND AGITATION (3) Respiratory distress Code(s): R06.03 - ACUTE RESPIRATORY DISTRESS (4) Alkaline phosphatase elevation Code(s): R74.8 - ABNORMAL LEVELS OF OTHER SERUM ENZYMES (5) Anemia Code(s): D64.9 - ANEMIA, UNSPECIFIED Qualifiers: Anemia type: unspecified type Qualified Code(s): D64.9 - Anemia, unspecified (6) History of alcohol abuse Code(s): Z87.898 - PERSONAL HISTORY OF OTHER SPECIFIED CONDITIONS (7) Paroxysmal atrial fibrillation Code(s): I48.0 - PAROXYSMAL ATRIAL FIBRILLATION (8) Pneumonia Code(s): J18.9 - PNEUMONIA, UNSPECIFIED ORGANISM Qualifiers: Pneumonia type: aspiration pneumonia (9) Respiratory failure with hypoxia Code(s): J96.91 - RESPIRATORY FAILURE, UNSPECIFIED WITH HYPOXIA Qualifiers: Chronicity: acute Qualified Code(s): J96.01 - Acute respiratory failure with hypoxia (10) Status post tracheostomy Code(s): Z93.0 - TRACHEOSTOMY STATUS Assessment/Plan S/P Acute on Chronic Respiratory Failure Atrial Fibrillation with RVR Acute on Chronic Renal Failure Loculated Pleural Effusions Anemia PO as tolerated Aspiration precautions O2 as needed VTE prophylaxis PT D/C planning Dr Griffin
[2017-11-05 16:27] LABS: ANION GAP 11 (8-16); CALCIUM 9.1 mg/dL (8.5-10.1); CO2 26 mmol/L (21-32); GLUCOSE,RANDOM 110 mg/dL (74-106)
[2017-11-06] MEDS: NYSTATIN 500,000 UNITS/5 ML SUSPENSION PO SCH ×4 (01:39→17:31)
[2017-11-06 07:30] LABS: MCH 29.3 pg (25.7-33.7); MCHC 33.6 g/dl (32.0-35.9); MEAN PLT VOLUME 6.7 fl (7.5-11.1); PLATELET COUNT 332 K/MM3 (134-434); WHITE BLOOD COUNT 9.5 K/mm3 (4.0-10.0)
[2017-11-06 08:05] LABS: ALBUMIN 2.9 g/dl (3.4-5.0); ANION GAP 12 (8-16); CALCIUM 9.5 mg/dL (8.5-10.1); CO2 27 mmol/L (21-32); GLUCOSE,RANDOM 96 mg/dL (74-106)
[2017-11-06 08:11] LABS: ALK PHOS 107 U/L (45-117); BILIRUBIN,TOTAL 0.5 mg/dL (0.2-1.0); CREATININE 2.1 mg/dL (0.7-1.3); SGOT/AST 12 U/L (15-37); SGPT/ALT 18 U/L (12-78); TOT PROT 7.8 g/dl (6.4-8.2)
[2017-11-06] MEDS: OLANZapine 2.5 MG TABLET PO SCH ×2 (09:58→22:26)
[2017-11-06] MEDS: FOLIC ACID 1 MG TABLET (FP) GT SCH (09:58)
[2017-11-06] MEDS: amLODIPine BESYLATE 2.5 MG TABLET (FP) PEG SCH (09:58)
[2017-11-06] MEDS: AMIODARONE HCL 200 MG TABLET (FP) PEG SCH (09:58)
[2017-11-06] MEDS: METOPROLOL TARTRATE 50 MG TABLET (FP) PEG SCH ×2 (10:03→22:26)
--- NOTE | 2017-11-06 10:23 | PN ---
Progress Note, Physician Chief Complaint: Anemia, Respiratory failure, s/p Fall History of Present Illness: NAD, tolerating PO intake, still on PEG feeding on calorie count - Current Medication List Current Medications: Active Medications Acetaminophen (Tylenol Oral Solution -) 650 mg GT Q6H PRN PRN Reason: FEVER OR PAIN Last Admin: 10/30/17 23:15 Dose: 650 mg Amiodarone HCl (Cordarone -) 200 mg PEG DAILY [facility] Last Admin: 11/06/17 09:58 Dose: 200 mg Amlodipine Besylate (Norvasc -) 2.5 mg PEG DAILY [facility] Last Admin: 11/06/17 09:58 Dose: 2.5 mg Folic Acid (Folic Acid -) 1 mg GT DAILY [facility] Last Admin: 11/06/17 09:58 Dose: 1 mg Metoprolol Tartrate (Lopressor -) 50 mg PEG BID [facility] Last Admin: 11/06/17 10:03 Dose: 50 mg Nystatin (Nystatin Oral Suspension -) 500,000 units PO Q6HPO [facility] Last Admin: 11/06/17 06:12 Dose: 500,000 units Olanzapine (Zyprexa -) 2.5 mg PO BID [facility] Last Admin: 11/06/17 09:58 Dose: 2.5 mg - Objective Vital Signs: Vital Signs Temperature 98.3 F 11/06/17 06:00 Pulse Rate 67 11/06/17 06:00 Respiratory Rate 20 11/06/17 06:00 Blood Pressure 110/69 11/06/17 06:00 O2 Sat by Pulse Oximetry (%) 95 11/05/17 09:00 Cardiovascular: Yes: Regular Rate and Rhythm Respiratory: Yes: Regular Gastrointestinal: Yes: Normal Bowel Sounds Musculoskeletal: Yes: WNL Extremities: Yes: WNL Edema: No Peripheral Pulses WNL: Yes Neurological: Yes: Alert, Confusion Psychiatric: Yes: Alert Labs: CBC, BMP 11/06/17 07:15 11/06/17 07:15 INR, PTT INR 1.11 (0.82-1.09) 10/15/17 21:16 Problem List - Problems (1) Acute and chronic respiratory failure Assessment/Plan: -Stoma site covered -breathing spontaneously from mouth Code(s): J96.20 - ACUTE AND CHR RESP FAILURE, UNSP W HYPOXIA OR HYPERCAPNIA Qualifiers: Respiratory failure complication: hypoxia and hypercapnia Qualified Code(s) : J96.21 - Acute and chronic respiratory failure with hypoxia; J96.22 - Acute and chronic respiratory failure with hypercapnia; J96.22 - Acute and chronic respiratory failure with hypercapnia; J96.22 - Acute and chronic respiratory failure with hypercapnia (2) Abuse, drug or alcohol Code(s): F19.10 - OTHER PSYCHOACTIVE SUBSTANCE ABUSE, UNCOMPLICATED (3) Anemia Assessment/Plan: -seen by Hematology -Guaiac stool x 2 negative -h/h stable Code(s): D64.9 - ANEMIA, UNSPECIFIED Qualifiers: Anemia type: unspecified type Qualified Code(s): D64.9 - Anemia, unspecified (4) Paroxysmal atrial fibrillation Code(s): I48.0 - PAROXYSMAL ATRIAL FIBRILLATION (5) Fungemia Assessment/Plan: -finished IV antifungal Code(s): B49 - UNSPECIFIED MYCOSIS (6) History of alcohol abuse Code(s): Z87.898 - PERSONAL HISTORY OF OTHER SPECIFIED CONDITIONS (7) Hyponatremia Assessment/Plan: -borderline -nephrology on board -torsemide still on hold Code(s): E87.1 - HYPO-OSMOLALITY AND HYPONATREMIA (8) Oral thrush Assessment/Plan: resolved Code(s): B37.0 - CANDIDAL STOMATITIS Assessment/Plan see problem list walked with Physical Therapy 7 feet with maximal assistance of 2 restart DVT prophylaxis awaiting to complete calorie count to be discharged to rehab
[2017-11-06] MEDS: HEPARIN NA (PORCINE) 5,000 UNITS/ML 1ML VIAL SQ SCH ×2 (11:34→22:25)
--- NOTE | 2017-11-06 12:20 | PN ---
Progress Note, Physician History of Present Illness: No complaints. - Current Medication List Current Medications: Active Medications Acetaminophen (Tylenol Oral Solution -) 650 mg GT Q6H PRN PRN Reason: FEVER OR PAIN Last Admin: 10/30/17 23:15 Dose: 650 mg Amiodarone HCl (Cordarone -) 200 mg PEG DAILY [facility] Last Admin: 11/06/17 09:58 Dose: 200 mg Amlodipine Besylate (Norvasc -) 2.5 mg PEG DAILY [facility] Last Admin: 11/06/17 09:58 Dose: 2.5 mg Folic Acid (Folic Acid -) 1 mg GT DAILY [facility] Last Admin: 11/06/17 09:58 Dose: 1 mg Heparin Sodium (Porcine) (Heparin -) 5,000 unit SQ BID [facility] Last Admin: 11/06/17 11:34 Dose: 5,000 unit Metoprolol Tartrate (Lopressor -) 50 mg PEG BID [facility] Last Admin: 11/06/17 10:03 Dose: 50 mg Nystatin (Nystatin Oral Suspension -) 500,000 units PO Q6HPO [facility] Last Admin: 11/06/17 11:55 Dose: Not Given Olanzapine (Zyprexa -) 2.5 mg PO BID [facility] Last Admin: 11/06/17 09:58 Dose: 2.5 mg - Objective Vital Signs: Vital Signs Temperature 98.3 F 11/06/17 06:00 Pulse Rate 67 11/06/17 06:00 Respiratory Rate 20 11/06/17 06:00 Blood Pressure 110/69 11/06/17 06:00 O2 Sat by Pulse Oximetry (%) 95 11/05/17 09:00 Constitutional: Yes: No Distress, Calm Neck: Yes: Supple Cardiovascular: Yes: Regular Rate and Rhythm Respiratory: Yes: Regular, Diminished Gastrointestinal: Yes: Normal Bowel Sounds, Soft Edema: No Labs: CBC, BMP 11/06/17 07:15 11/06/17 07:15 INR, PTT INR 1.11 (0.82-1.09) 10/15/17 21:16 Problem List - Problems (1) Acute and chronic respiratory failure Code(s): J96.20 - ACUTE AND CHR RESP FAILURE, UNSP W HYPOXIA OR HYPERCAPNIA Qualifiers: Respiratory failure complication: hypoxia and hypercapnia Qualified Code(s) : J96.21 - Acute and chronic respiratory failure with hypoxia; J96.22 - Acute and chronic respiratory failure with hypercapnia; J96.22 - Acute and chronic respiratory failure with hypercapnia; J96.22 - Acute and chronic respiratory failure with hypercapnia (2) Agitation Code(s): R45.1 - RESTLESSNESS AND AGITATION (3) Acute kidney injury Code(s): N17.9 - ACUTE KIDNEY FAILURE, UNSPECIFIED (4) Alkaline phosphatase elevation Code(s): R74.8 - ABNORMAL LEVELS OF OTHER SERUM ENZYMES (5) Anemia Code(s): D64.9 - ANEMIA, UNSPECIFIED Qualifiers: Anemia type: unspecified type Qualified Code(s): D64.9 - Anemia, unspecified (6) Paroxysmal atrial fibrillation Code(s): I48.0 - PAROXYSMAL ATRIAL FIBRILLATION (7) Status post insertion of percutaneous endoscopic gastrostomy (PEG) tube Code(s): Z93.1 - GASTROSTOMY STATUS (8) Acute diastolic heart failure Code(s): I50.31 - ACUTE DIASTOLIC (CONGESTIVE) HEART FAILURE (9) Fungemia Code(s): B49 - UNSPECIFIED MYCOSIS Assessment/Plan 1. Fungemia 2. Paroxysmal atrial fibrillation [id number] score of 2, likely not an ideal candidate for buttermaker anticoagulation 3. History of acute hypoxic respiratory failure, post tracheotomy since decannulated 4. History of cavitating pneumonia, MSSA bacteremia, post septic shock no evidence of endocarditis by ALISA criteria 5. History of diastolic LV dysfunction with class I-II NYHA congestive heart failure, compensated/euvolemic 6. History of osteomyelitis T9-T10 discitis 7. History of loculated pleural effusion post chest tube insertion 8. History of alcohol dependence 9. Acute on chronic kidney insufficiency referable to ATN improved 10. Anemia 11. Sigmoid diverticulosis PLAN: 1. Continue Lopressor 50 bid 2. Continue Amiodarone 200 qd 3. Continue Norvasc 2.5 qd 4. Defer retirement A/C considering his presentation and co-morbidities 5. Consider transfusion to maintain Hgb equal or > 8.0 6. Completed antifungal and antibiotic course as per ID service 7. Tracheostomy was decannulated and patient is comfortable, enteral feeds 8. DVT and GI prophylaxis 9. Diet advanced as tolerated for evental wean off PEG \
--- NOTE | 2017-11-06 13:38 | PN ---
Progress Note, Physician History of Present Illness: PULMONARY ALERT,NAD,-SOB - Current Medication List Current Medications: Active Medications Acetaminophen (Tylenol Oral Solution -) 650 mg GT Q6H PRN PRN Reason: FEVER OR PAIN Last Admin: 10/30/17 23:15 Dose: 650 mg Amiodarone HCl (Cordarone -) 200 mg PEG DAILY [facility] Last Admin: 11/06/17 09:58 Dose: 200 mg Amlodipine Besylate (Norvasc -) 2.5 mg PEG DAILY [facility] Last Admin: 11/06/17 09:58 Dose: 2.5 mg Folic Acid (Folic Acid -) 1 mg GT DAILY [facility] Last Admin: 11/06/17 09:58 Dose: 1 mg Heparin Sodium (Porcine) (Heparin -) 5,000 unit SQ BID [facility] Last Admin: 11/06/17 11:34 Dose: 5,000 unit Metoprolol Tartrate (Lopressor -) 50 mg PEG BID [facility] Last Admin: 11/06/17 10:03 Dose: 50 mg Nystatin (Nystatin Oral Suspension -) 500,000 units PO Q6HPO [facility] Last Admin: 11/06/17 11:55 Dose: Not Given Olanzapine (Zyprexa -) 2.5 mg PO BID [facility] Last Admin: 11/06/17 09:58 Dose: 2.5 mg - Objective Vital Signs: Vital Signs Temperature 98.3 F 11/06/17 06:00 Pulse Rate 67 11/06/17 06:00 Respiratory Rate 20 11/06/17 06:00 Blood Pressure 110/69 11/06/17 06:00 O2 Sat by Pulse Oximetry (%) 95 11/05/17 09:00 Constitutional: Yes: Well Nourished, Calm Eyes: Yes: WNL HENT: Yes: WNL Neck: Yes: WNL Cardiovascular: Yes: Regular Rate and Rhythm, S1, S2 Respiratory: Yes: Diminished Gastrointestinal: Yes: Normal Bowel Sounds, Soft Extremities: Yes: WNL Edema: No Labs: CBC, BMP 11/06/17 07:15 11/06/17 07:15 INR, PTT INR 1.11 (0.82-1.09) 10/15/17 21:16 Problem List - Problems (1) Acute and chronic respiratory failure Code(s): J96.20 - ACUTE AND CHR RESP FAILURE, UNSP W HYPOXIA OR HYPERCAPNIA Qualifiers: Respiratory failure complication: hypoxia and hypercapnia Qualified Code(s) : J96.21 - Acute and chronic respiratory failure with hypoxia; J96.22 - Acute and chronic respiratory failure with hypercapnia; J96.22 - Acute and chronic respiratory failure with hypercapnia; J96.22 - Acute and chronic respiratory failure with hypercapnia (2) Agitation Code(s): R45.1 - RESTLESSNESS AND AGITATION (3) Respiratory distress Code(s): R06.03 - ACUTE RESPIRATORY DISTRESS (4) Alkaline phosphatase elevation Code(s): R74.8 - ABNORMAL LEVELS OF OTHER SERUM ENZYMES (5) Anemia Code(s): D64.9 - ANEMIA, UNSPECIFIED Qualifiers: Anemia type: unspecified type Qualified Code(s): D64.9 - Anemia, unspecified (6) History of alcohol abuse Code(s): Z87.898 - PERSONAL HISTORY OF OTHER SPECIFIED CONDITIONS (7) Paroxysmal atrial fibrillation Code(s): I48.0 - PAROXYSMAL ATRIAL FIBRILLATION (8) Pneumonia Code(s): J18.9 - PNEUMONIA, UNSPECIFIED ORGANISM Qualifiers: Pneumonia type: aspiration pneumonia (9) Respiratory failure with hypoxia Code(s): J96.91 - RESPIRATORY FAILURE, UNSPECIFIED WITH HYPOXIA Qualifiers: Chronicity: acute Qualified Code(s): J96.01 - Acute respiratory failure with hypoxia (10) Status post tracheostomy Code(s): Z93.0 - TRACHEOSTOMY STATUS Assessment/Plan A/P Vent Dependent Chronic Respiratory Failure Atrial Fibrillation with RVR Acute on Chronic Renal Failure Loculated Pleural Effusions Anemia - enteral feeds - DVT/GI prophylaxis - rate controlled - f/u chest x-rays - monitor H+H - monitor lytes,renal function DR SANTAMARIA
--- NOTE | 2017-11-06 13:41 | PN ---
Progress Note, Physician History of Present Illness: Pt seen and examined at bedside. He is awake and alert. - Current Medication List Current Medications: Active Medications Acetaminophen (Tylenol Oral Solution -) 650 mg GT Q6H PRN PRN Reason: FEVER OR PAIN Last Admin: 10/30/17 23:15 Dose: 650 mg Amiodarone HCl (Cordarone -) 200 mg PEG DAILY [facility] Last Admin: 11/06/17 09:58 Dose: 200 mg Amlodipine Besylate (Norvasc -) 2.5 mg PEG DAILY [facility] Last Admin: 11/06/17 09:58 Dose: 2.5 mg Folic Acid (Folic Acid -) 1 mg GT DAILY [facility] Last Admin: 11/06/17 09:58 Dose: 1 mg Heparin Sodium (Porcine) (Heparin -) 5,000 unit SQ BID [facility] Last Admin: 11/06/17 11:34 Dose: 5,000 unit Metoprolol Tartrate (Lopressor -) 50 mg PEG BID [facility] Last Admin: 11/06/17 10:03 Dose: 50 mg Nystatin (Nystatin Oral Suspension -) 500,000 units PO Q6HPO [facility] Last Admin: 11/06/17 11:55 Dose: Not Given Olanzapine (Zyprexa -) 2.5 mg PO BID [facility] Last Admin: 11/06/17 09:58 Dose: 2.5 mg - Objective Vital Signs: Vital Signs Temperature 98.3 F 11/06/17 06:00 Pulse Rate 67 11/06/17 06:00 Respiratory Rate 20 11/06/17 06:00 Blood Pressure 110/69 11/06/17 06:00 O2 Sat by Pulse Oximetry (%) 95 11/05/17 09:00 Constitutional: Yes: Calm Eyes: Yes: Conjunctiva Clear HENT: Yes: Atraumatic Cardiovascular: Yes: S1, S2 Respiratory: Yes: CTA Bilaterally Gastrointestinal: Yes: Soft Genitourinary: Yes: WNL Musculoskeletal: Yes: WNL Edema: No Neurological: Yes: Oriented Psychiatric: Yes: Oriented Labs: CBC, BMP 11/06/17 07:15 11/06/17 07:15 INR, PTT INR 1.11 (0.82-1.09) 10/15/17 21:16 Problem List - Problems (1) Acute and chronic respiratory failure Code(s): J96.20 - ACUTE AND CHR RESP FAILURE, UNSP W HYPOXIA OR HYPERCAPNIA Qualifiers: Respiratory failure complication: hypoxia and hypercapnia Qualified Code(s) : J96.21 - Acute and chronic respiratory failure with hypoxia; J96.22 - Acute and chronic respiratory failure with hypercapnia; J96.22 - Acute and chronic respiratory failure with hypercapnia; J96.22 - Acute and chronic respiratory failure with hypercapnia (2) Agitation Code(s): R45.1 - RESTLESSNESS AND AGITATION (3) Atrial flutter by electrocardiogram Code(s): I48.92 - UNSPECIFIED ATRIAL FLUTTER (4) Respiratory distress Code(s): R06.03 - ACUTE RESPIRATORY DISTRESS (5) Acute kidney injury Code(s): N17.9 - ACUTE KIDNEY FAILURE, UNSPECIFIED (6) Anemia Code(s): D64.9 - ANEMIA, UNSPECIFIED Qualifiers: Anemia type: unspecified type Qualified Code(s): D64.9 - Anemia, unspecified Assessment/Plan Current Medications Generic Name Dose Route Start Last Admin Trade Name Freq PRN Reason Stop Dose Admin Acetaminophen 650 mg 10/19/17 03:41 10/30/17 23:15 Tylenol Oral Solution - GT 650 mg Q6H PRN Administration FEVER OR PAIN Amiodarone HCl 200 mg 10/19/17 10:00 11/06/17 09:58 Cordarone - PEG 200 mg DAILY [facility] Administration Amlodipine Besylate 2.5 mg 10/20/17 11:15 11/06/17 09:58 Norvasc - PEG 2.5 mg DAILY [facility] Administration Folic Acid 1 mg 10/19/17 10:00 11/06/17 09:58 Folic Acid - GT 1 mg DAILY [facility] Administration Heparin Sodium (Porcine) 5,000 unit 11/06/17 10:30 11/06/17 11:34 Heparin - SQ 5,000 unit BID [facility] Administration Metoprolol Tartrate 50 mg 11/04/17 22:00 11/06/17 10:03 Lopressor - PEG 50 mg BID [facility] Administration Nystatin 500,000 units 10/30/17 18:00 11/06/17 11:55 Nystatin Oral Suspension - PO Not Given Q6HPO [facility] Olanzapine 2.5 mg 10/19/17 10:00 11/06/17 09:58 Zyprexa - PO 2.5 mg BID [facility] Administration Impression 1. ALEXANDRA 2. fluid overload 3. hypoalbuminemia 4. respiratory failure requiring intubation 5. anemia 6. etoh abuse 7. fevers 8. hypokalemia 9. pleural effusion 10. hypernatremia resolved 11. GI bleed 12. rash 13. a flutter 14. fungemia 15. hyponatremia Plan - labs reviewed - restart low dose torsemide - will monitor lytes and renal function - cont with calorie count - ALEXANDRA likely from [facility] that is slowly resolving Dr Peres
--- NOTE | 2017-11-06 15:00 | PN ---
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 Supplements b/n meals, as indicated.
[2017-11-07] MEDS: NYSTATIN 500,000 UNITS/5 ML SUSPENSION PO SCH ×4 (01:20→19:00)
--- NOTE | 2017-11-07 10:55 | PN ---
Progress Note, Physician Chief Complaint: Anemia, Respiratory failure, s/p Fall History of Present Illness: NAD, tolerating PO intake 75% seen by Nephrology torsemide restarted - Current Medication List Current Medications: Active Medications Acetaminophen (Tylenol Oral Solution -) 650 mg GT Q6H PRN PRN Reason: FEVER OR PAIN Last Admin: 10/30/17 23:15 Dose: 650 mg Amiodarone HCl (Cordarone -) 200 mg PEG [facility]ILY [facility] Last Admin: 11/06/17 09:58 Dose: 200 mg Amlodipine Besylate (Norvasc -) 2.5 mg PEG DAILY [facility] Last Admin: 11/06/17 09:58 Dose: 2.5 mg Folic Acid (Folic Acid -) 1 mg GT DAILY [facility] Last Admin: 11/06/17 09:58 Dose: 1 mg Heparin Sodium (Porcine) (Heparin -) 5,000 unit SQ BID [facility] Last Admin: 11/06/17 22:25 Dose: 5,000 unit Metoprolol Tartrate (Lopressor -) 50 mg PEG BID [facility] Last Admin: 11/06/17 22:26 Dose: 50 mg Nystatin (Nystatin Oral Suspension -) 500,000 units PO Q6HPO [facility] Last Admin: 11/07/17 06:31 Dose: 500,000 units Olanzapine (Zyprexa -) 2.5 mg PO BID [facility] Last Admin: 11/06/17 22:26 Dose: 2.5 mg Torsemide (Demadex -) 10 mg PO DAILY [facility] - Objective Vital Signs: Vital Signs Temperature 98.6 F 11/07/17 06:00 Pulse Rate 67 11/07/17 06:00 Respiratory Rate 20 11/07/17 06:00 Blood Pressure 115/75 11/07/17 06:00 O2 Sat by Pulse Oximetry (%) 97 11/06/17 21:00 Constitutional: Yes: Well Nourished, No Distress, Calm Cardiovascular: Yes: Regular Rate and Rhythm Respiratory: Yes: Regular Gastrointestinal: Yes: Normal Bowel Sounds Musculoskeletal: Yes: WNL Extremities: Yes: WNL Edema: No Peripheral Pulses WNL: Yes Neurological: Yes: Alert, Pre-Existing Deficit Psychiatric: Yes: Alert Labs: CBC, BMP 11/06/17 07:15 11/06/17 07:15 INR, PTT INR 1.11 (0.82-1.09) 10/15/17 21:16 Problem List - Problems (1) Acute and chronic respiratory failure Assessment/Plan: -Stoma site covered -breathing spontaneously from mouth Code(s): J96.20 - ACUTE AND CHR RESP FAILURE, UNSP W HYPOXIA OR HYPERCAPNIA Qualifiers: Respiratory failure complication: hypoxia and hypercapnia Qualified Code(s) : J96.21 - Acute and chronic respiratory failure with hypoxia; J96.22 - Acute and chronic respiratory failure with hypercapnia; J96.22 - Acute and chronic respiratory failure with hypercapnia; J96.22 - Acute and chronic respiratory failure with hypercapnia (2) Abuse, drug or alcohol Code(s): F19.10 - OTHER PSYCHOACTIVE SUBSTANCE ABUSE, UNCOMPLICATED (3) Anemia Assessment/Plan: -seen by Hematology -Guaiac stool x 2 negative -h/h stable Code(s): D64.9 - ANEMIA, UNSPECIFIED Qualifiers: Anemia type: unspecified type Qualified Code(s): D64.9 - Anemia, unspecified (4) Paroxysmal atrial fibrillation Code(s): I48.0 - PAROXYSMAL ATRIAL FIBRILLATION (5) History of alcohol abuse Code(s): Z87.898 - PERSONAL HISTORY OF OTHER SPECIFIED CONDITIONS (6) Hyponatremia Assessment/Plan: -borderline -nephrology on board -torsemide restarted Code(s): E87.1 - HYPO-OSMOLALITY AND HYPONATREMIA (7) Oral thrush Assessment/Plan: resolved Code(s): B37.0 - CANDIDAL STOMATITIS Assessment/Plan see problem list okay to go to [facility], cleared by nephrology
--- NOTE | 2017-11-07 11:02 | DS ---
Physical Examination Vital Signs: Vital Signs Temperature 98.6 F 11/07/17 06:00 Pulse Rate 67 11/07/17 06:00 Respiratory Rate 20 11/07/17 06:00 Blood Pressure 115/75 11/07/17 06:00 O2 Sat by Pulse Oximetry (%) 97 11/06/17 21:00 Constitutional: Yes: Well Nourished, No Distress, Calm Cardiovascular: Yes: Regular Rate and Rhythm Respiratory: Yes: Regular Gastrointestinal: Yes: Normal Bowel Sounds Musculoskeletal: Yes: WNL Extremities: Yes: WNL Edema: No Peripheral Pulses WNL: Yes Neurological: Yes: Alert, Pre-Existing Deficit Psychiatric: Yes: Alert Labs: CBC, BMP 11/06/17 07:15 11/06/17 07:15 Discharge Summary Reason For Visit: DEPENDENT ON VENTILATOR,AGITATION Current Active Problems Acute and chronic respiratory failure (Acute) Agitation (Acute) Atrial flutter by electrocardiogram (Acute) Feeding by G-tube (Acute) Fungemia (Acute) Oral thrush (Acute) Respiratory distress (Acute) Tracheostomy malfunction (Acute) Urinary retention (Acute) Hospital Course: 67yo man with over 1 month stay in ICU who was discharged yesterday to [facility] and [facility] after he fell out of bed (unwitnessed) and was found supine on the floor. While at [facility] he was agitated and pulling at ventilator tubing. He was given haldol and Ativan 2mg en route. Briefly, he has PMH of EtOH abuse, severe sepsis 2/2 R cavitary PNA s/p chest tube, MSSA bacteremia, vertebral osteomyelitis, recurrent Afib, and chronic vent dependence. During his stay he was seen by ID, Pulmonary, hospice registered nurse and speech and swallow, weaned off the ventilator and trach collar. Tracheostomy was removed. His PO intake improved, although he still has PEG, which is not being used at this time. PEG can evantually be taken out by GI He was restarted on torsemide after a brief hold. Patient would need nephrology, GI and pulmonary follow up within 2 weeks repeat CBC/CMP in 1 week and as indicated thereafter Condition: Stable - Instructions Diet, Activity, Other Instructions: renal chopped diet soft food like fish or quiche,thin liquids stop the tube feeds , flush the tube feeds with saline flush to keep it functioning plan to wean off the GT feeds weekly BMP Disposition: [facility] - Home Medications Comprehensive Discharge Medication List: Ambulatory Orders Amiodarone HCl [Cordarone -] 200 mg PEG DAILY tablet 10/15/17 Folic Acid - 1 mg GT DAILY 10/15/17 Metoprolol Tartrate [Lopressor -] 50 mg PEG TID tablet 10/15/17 Mupirocin Cream [Bactroban 2% Cream -] 1 applic TP BID tube 10/15/17 Quetiapine Fumarate [Seroquel -] 25 mg PEG HS tablet 10/15/17 Thiamine HCl [Vitamin B1 -] 100 mg GT DAILY 10/15/17
[2017-11-07] MEDS ORDERED: PT OWN MED DRAWER 7, Y5N ONE (11:13)
[2017-11-07] MEDS: amLODIPine BESYLATE 2.5 MG TABLET (FP) PEG SCH (11:20)
[2017-11-07] MEDS: OLANZapine 2.5 MG TABLET PO SCH ×2 (11:20→21:34)
[2017-11-07] MEDS: AMIODARONE HCL 200 MG TABLET (FP) PEG SCH (11:20)
[2017-11-07] MEDS: HEPARIN NA (PORCINE) 5,000 UNITS/ML 1ML VIAL SQ SCH ×2 (11:20→21:34)
[2017-11-07] MEDS: METOPROLOL TARTRATE 50 MG TABLET (FP) PEG SCH ×2 (11:20→21:35)
[2017-11-07] MEDS: FOLIC ACID 1 MG TABLET (FP) GT SCH (11:20)
[2017-11-07] MEDS: TORSEMIDE 10 MG TABLET PO SCH (11:21)
--- NOTE | 2017-11-07 12:18 | PN ---
Progress Note (short form) - Note Progress Note: Awake and alert. NAD. No acute events overnight. Intake & Output 11/04/17 11/05/17 11/06/17 11/07/17 23:59 23:59 23:59 23:59 Intake Total 1550 1330 1600 410 Output Total 1999 2100 2600 920 Balance -450 -770 -1000 -510 Weight 167 lb 3.2 oz Last Vital Signs Temp Pulse Resp BP Pulse Ox 98.6 F 67 20 115/75 97 11/07/17 06:00 11/07/17 06:00 11/07/17 06:00 11/07/17 06:00 11/06/17 21:00 Active Medications Acetaminophen (Tylenol Oral Solution -) 650 mg GT Q6H PRN PRN Reason: FEVER OR PAIN Last Admin: 10/30/17 23:15 Dose: 650 mg Amiodarone HCl (Cordarone -) 200 mg PEG DAILY [facility] Last Admin: 11/07/17 11:20 Dose: 200 mg Amlodipine Besylate (Norvasc -) 2.5 mg PEG DAILY [facility] Last Admin: 11/07/17 11:20 Dose: 2.5 mg Folic Acid (Folic Acid -) 1 mg GT DAILY [facility] Last Admin: 11/07/17 11:20 Dose: 1 mg Heparin Sodium (Porcine) (Heparin -) 5,000 unit SQ BID [facility] Last Admin: 11/07/17 11:20 Dose: 5,000 unit Metoprolol Tartrate (Lopressor -) 50 mg PEG BID [facility] Last Admin: 11/07/17 11:20 Dose: 50 mg Nystatin (Nystatin Oral Suspension -) 500,000 units PO Q6HPO [facility] Last Admin: 11/07/17 11:19 Dose: 500,000 units Olanzapine (Zyprexa -) 2.5 mg PO BID [facility] Last Admin: 11/07/17 11:20 Dose: 2.5 mg Torsemide (Demadex -) 10 mg PO DAILY [facility] Last Admin: 11/07/17 11:21 Dose: 10 mg Constitutional: Yes: Awake and alert, NAD Eyes: Yes: WNL HENT: Yes: WNL Neck: Yes: Supple Cardiovascular: Yes: Pulse Irregular, S1, S2 Respiratory: Yes: Diminished at the bases Gastrointestinal: Yes: Normal Bowel Sounds, Soft Extremities: Yes: WNL Edema: No Labs: Problem List - Problems (1) Acute and chronic respiratory failure Code(s): J96.20 - ACUTE AND CHR RESP FAILURE, UNSP W HYPOXIA OR HYPERCAPNIA Qualifiers: Respiratory failure complication: hypoxia and hypercapnia Qualified Code(s) : J96.21 - Acute and chronic respiratory failure with hypoxia; J96.22 - Acute and chronic respiratory failure with hypercapnia; J96.22 - Acute and chronic respiratory failure with hypercapnia; J96.22 - Acute and chronic respiratory failure with hypercapnia (2) Agitation Code(s): R45.1 - RESTLESSNESS AND AGITATION (3) Respiratory distress Code(s): R06.03 - ACUTE RESPIRATORY DISTRESS (4) Alkaline phosphatase elevation Code(s): R74.8 - ABNORMAL LEVELS OF OTHER SERUM ENZYMES (5) Anemia Code(s): D64.9 - ANEMIA, UNSPECIFIED Qualifiers: Anemia type: unspecified type Qualified Code(s): D64.9 - Anemia, unspecified (6) History of alcohol abuse Code(s): Z87.898 - PERSONAL HISTORY OF OTHER SPECIFIED CONDITIONS (7) Paroxysmal atrial fibrillation Code(s): I48.0 - PAROXYSMAL ATRIAL FIBRILLATION (8) Pneumonia Code(s): J18.9 - PNEUMONIA, UNSPECIFIED ORGANISM Qualifiers: Pneumonia type: aspiration pneumonia (9) Respiratory failure with hypoxia Code(s): J96.91 - RESPIRATORY FAILURE, UNSPECIFIED WITH HYPOXIA Qualifiers: Chronicity: acute Qualified Code(s): J96.01 - Acute respiratory failure with hypoxia (10) Status post tracheostomy Code(s): Z93.0 - TRACHEOSTOMY STATUS Assessment/Plan S/P Acute on Chronic Respiratory Failure Atrial Fibrillation with RVR Acute on Chronic Renal Failure Loculated Pleural Effusions Anemia PO as tolerated Aspiration precautions O2 as needed VTE prophylaxis PT D/C today : Due to overall complicated medical history and prolonged hospital course, it would be safest to transfer the patient with available emergency supplemental O2 therapy Dr Griffin
--- NOTE | 2017-11-07 13:07 | PN ---
Progress Note, Physician Chief Complaint: Not in distress Back pain History of Present Illness: Patient was seen and examined. Awake. Chart was reviewed Denies chest pain or palpitations - Current Medication List Current Medications: Active Medications Acetaminophen (Tylenol Oral Solution -) 650 mg GT Q6H PRN PRN Reason: FEVER OR PAIN Last Admin: 10/30/17 23:15 Dose: 650 mg Amiodarone HCl (Cordarone -) 200 mg PEG DAILY [facility] Last Admin: 11/07/17 11:20 Dose: 200 mg Amlodipine Besylate (Norvasc -) 2.5 mg PEG DAILY [facility] Last Admin: 11/07/17 11:20 Dose: 2.5 mg Folic Acid (Folic Acid -) 1 mg GT DAILY [facility] Last Admin: 11/07/17 11:20 Dose: 1 mg Heparin Sodium (Porcine) (Heparin -) 5,000 unit SQ BID [facility] Last Admin: 11/07/17 11:20 Dose: 5,000 unit Metoprolol Tartrate (Lopressor -) 50 mg PEG BID [facility] Last Admin: 11/07/17 11:20 Dose: 50 mg Nystatin (Nystatin Oral Suspension -) 500,000 units PO Q6HPO [facility] Last Admin: 11/07/17 11:19 Dose: 500,000 units Olanzapine (Zyprexa -) 2.5 mg PO BID [facility] Last Admin: 11/07/17 11:20 Dose: 2.5 mg Torsemide (Demadex -) 10 mg PO DAILY [facility] Last Admin: 11/07/17 11:21 Dose: 10 mg - Objective Vital Signs: Vital Signs Temperature 98.5 F 11/07/17 11:00 Pulse Rate 82 11/07/17 11:00 Respiratory Rate 19 11/07/17 11:00 Blood Pressure 120/91 11/07/17 11:00 O2 Sat by Pulse Oximetry (%) 97 11/06/17 21:00 Neck: Yes: Supple Cardiovascular: Yes: Regular Rate and Rhythm, S1, S2 Respiratory: Yes: CTA Bilaterally Gastrointestinal: Yes: Normal Bowel Sounds, Soft. No: Tenderness Edema: No Labs: CBC, BMP 11/06/17 07:15 11/06/17 07:15 Problem List - Problems (1) Acute and chronic respiratory failure Code(s): J96.20 - ACUTE AND CHR RESP FAILURE, UNSP W HYPOXIA OR HYPERCAPNIA Qualifiers: Respiratory failure complication: hypoxia and hypercapnia Qualified Code(s) : J96.21 - Acute and chronic respiratory failure with hypoxia; J96.22 - Acute and chronic respiratory failure with hypercapnia; J96.22 - Acute and chronic respiratory failure with hypercapnia; J96.22 - Acute and chronic respiratory failure with hypercapnia (2) Fungemia Code(s): B49 - UNSPECIFIED MYCOSIS (3) Abuse, drug or alcohol Code(s): F19.10 - OTHER PSYCHOACTIVE SUBSTANCE ABUSE, UNCOMPLICATED (4) Acute diastolic heart failure Code(s): I50.31 - ACUTE DIASTOLIC (CONGESTIVE) HEART FAILURE (5) Acute kidney injury Code(s): N17.9 - ACUTE KIDNEY FAILURE, UNSPECIFIED (6) Anemia Code(s): D64.9 - ANEMIA, UNSPECIFIED Qualifiers: Anemia type: unspecified type Qualified Code(s): D64.9 - Anemia, unspecified (7) History of alcohol abuse Code(s): Z87.898 - PERSONAL HISTORY OF OTHER SPECIFIED CONDITIONS (8) Hypernatremia Code(s): E87.0 - HYPEROSMOLALITY AND HYPERNATREMIA (9) Hypokalemia Code(s): E87.6 - HYPOKALEMIA (10) Paroxysmal atrial fibrillation Code(s): I48.0 - PAROXYSMAL ATRIAL FIBRILLATION (11) Pneumonia Code(s): J18.9 - PNEUMONIA, UNSPECIFIED ORGANISM Qualifiers: Pneumonia type: aspiration pneumonia (12) Respiratory failure with hypoxia Code(s): J96.91 - RESPIRATORY FAILURE, UNSPECIFIED WITH HYPOXIA Qualifiers: Chronicity: acute Qualified Code(s): J96.01 - Acute respiratory failure with hypoxia (13) Status post tracheostomy Code(s): Z93.0 - TRACHEOSTOMY STATUS (14) Thrombocytopenia Code(s): D69.6 - THROMBOCYTOPENIA, UNSPECIFIED (15) Withdrawal symptoms, alcohol Code(s): F10.239 - ALCOHOL DEPENDENCE WITH WITHDRAWAL, UNSPECIFIED Qualifiers: Complication of substance-induced condition: uncomplicated Qualified Code(s ): F10.230 - Alcohol dependence with withdrawal, uncomplicated Assessment/Plan 1. Fungemia vs. colonization 2. Paroxysmal atrial fibrillation [id number] score of 2, likely not an ideal candidate for long term care phlebotomist anticoagulation 3. History of acute hypoxic respiratory failure, post tracheotomy 4. History of cavitating pneumonia, MSSA bacteremia, post septic shock no evidence of endocarditis by ALISA criteria 5. History of diastolic LV dysfunction with class I-II NYHA congestive heart failure, compensated/euvolemic 6. History of osteomyelitis T9-T10 discitis 7. History of loculated pleural effusion post chest tube insertion 8. History of alcohol dependence 9. Acute renal insufficiency 10. Anemia post colonoscopy - diverticulosis 11. Hypokalemia 12. Hypernatremia PLAN: 1. Continue Lopressor 2. Continue Amiodarone 3. Continue Norvasc 4. Defer care home A/C considering his presentation and co-morbidities 5. Aspiration precaution Discharge planning Further plans are to follow Jordon Gtz MD
--- NOTE | 2017-11-07 13:16 | PN ---
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 Pending d/c to NH. Monitor for sufficient po intake, indication for po supplements b/n meals.
--- NOTE | 2017-11-07 14:53 | PN ---
Progress Note, Physician History of Present Illness: Pt seen and examined at bedside. He is awake and alert. He denies shortness of breath. - Current Medication List Current Medications: Active Medications Acetaminophen (Tylenol Oral Solution -) 650 mg GT Q6H PRN PRN Reason: FEVER OR PAIN Last Admin: 10/30/17 23:15 Dose: 650 mg Amiodarone HCl (Cordarone -) 200 mg PEG DAILY [facility] Last Admin: 11/07/17 11:20 Dose: 200 mg Amlodipine Besylate (Norvasc -) 2.5 mg PEG DAILY [facility] Last Admin: 11/07/17 11:20 Dose: 2.5 mg Folic Acid (Folic Acid -) 1 mg GT DAILY [facility] Last Admin: 11/07/17 11:20 Dose: 1 mg Heparin Sodium (Porcine) (Heparin -) 5,000 unit SQ BID [facility] Last Admin: 11/07/17 11:20 Dose: 5,000 unit Metoprolol Tartrate (Lopressor -) 50 mg PEG BID [facility] Last Admin: 11/07/17 11:20 Dose: 50 mg Nystatin (Nystatin Oral Suspension -) 500,000 units PO Q6HPO [facility] Last Admin: 11/07/17 11:19 Dose: 500,000 units Olanzapine (Zyprexa -) 2.5 mg PO BID [facility] Last Admin: 11/07/17 11:20 Dose: 2.5 mg Torsemide (Demadex -) 10 mg PO DAILY [facility] Last Admin: 11/07/17 11:21 Dose: 10 mg - Objective Vital Signs: Vital Signs Temperature 98.5 F 11/07/17 11:00 Pulse Rate 82 11/07/17 11:00 Respiratory Rate 19 11/07/17 11:00 Blood Pressure 120/91 11/07/17 11:00 O2 Sat by Pulse Oximetry (%) 98 11/07/17 09:00 Constitutional: Yes: Calm Eyes: Yes: Conjunctiva Clear Neck: Yes: Supple Cardiovascular: Yes: S1, S2 Respiratory: Yes: CTA Bilaterally Gastrointestinal: Yes: Soft Genitourinary: Yes: WNL Musculoskeletal: Yes: WNL Edema: LLE: Trace, RLE: Trace Neurological: Yes: Oriented Psychiatric: Yes: Oriented Labs: CBC, BMP 11/06/17 07:15 11/06/17 07:15 INR, PTT INR 1.11 (0.82-1.09) 10/15/17 21:16 Problem List - Problems (1) Acute and chronic respiratory failure Code(s): J96.20 - ACUTE AND CHR RESP FAILURE, UNSP W HYPOXIA OR HYPERCAPNIA Qualifiers: Respiratory failure complication: hypoxia and hypercapnia Qualified Code(s) : J96.21 - Acute and chronic respiratory failure with hypoxia; J96.22 - Acute and chronic respiratory failure with hypercapnia; J96.22 - Acute and chronic respiratory failure with hypercapnia; J96.22 - Acute and chronic respiratory failure with hypercapnia (2) Agitation Code(s): R45.1 - RESTLESSNESS AND AGITATION (3) Atrial flutter by electrocardiogram Code(s): I48.92 - UNSPECIFIED ATRIAL FLUTTER (4) Respiratory distress Code(s): R06.03 - ACUTE RESPIRATORY DISTRESS (5) Acute kidney injury Code(s): N17.9 - ACUTE KIDNEY FAILURE, UNSPECIFIED (6) Anemia Code(s): D64.9 - ANEMIA, UNSPECIFIED Qualifiers: Anemia type: unspecified type Qualified Code(s): D64.9 - Anemia, unspecified Assessment/Plan Current Medications Generic Name Dose Route Start Last Admin Trade Name Freq PRN Reason Stop Dose Admin Acetaminophen 650 mg 10/19/17 03:41 10/30/17 23:15 Tylenol Oral Solution - GT 650 mg Q6H PRN Administration FEVER OR PAIN Amiodarone HCl 200 mg 10/19/17 10:00 11/07/17 11:20 Cordarone - PEG 200 mg DAILY [facility] Administration Amlodipine Besylate 2.5 mg 10/20/17 11:15 11/07/17 11:20 Norvasc - PEG 2.5 mg DAILY [facility] Administration Folic Acid 1 mg 10/19/17 10:00 11/07/17 11:20 Folic Acid - GT 1 mg DAILY [facility] Administration Heparin Sodium (Porcine) 5,000 unit 11/06/17 10:30 11/07/17 11:20 Heparin - SQ 5,000 unit BID [facility] Administration Metoprolol Tartrate 50 mg 11/04/17 22:00 11/07/17 11:20 Lopressor - PEG 50 mg BID [facility] Administration Nystatin 500,000 units 10/30/17 18:00 11/07/17 11:19 Nystatin Oral Suspension - PO 500,000 units Q6HPO [facility] Administration Olanzapine 2.5 mg 10/19/17 10:00 11/07/17 11:20 Zyprexa - PO 2.5 mg BID [facility] Administration Torsemide 10 mg 11/07/17 10:00 11/07/17 11:21 Demadex - PO 10 mg DAILY [facility] Administration Impression 1. ALEXANDRA 2. fluid overload 3. hypoalbuminemia 4. respiratory failure requiring intubation 5. anemia 6. etoh abuse 7. fevers 8. hypokalemia 9. pleural effusion 10. hypernatremia resolved 11. GI bleed 12. rash 13. a flutter 14. fungemia 15. hyponatremia Plan - cont torsemide - discussed with medical team - will need to evaluate volume status and renal function as outpt - cont with calorie count - ALEXANDRA likely from [facility] that is slowly resolving Dr Peres
--- NOTE | 2017-11-07 20:32 | PN ---
Mental Health Exam - Mental Status Exam Alert and Oriented to: Time Cognitive Function: Impaired Patient Appearance: Unkempt (hair long, unshaven) Mood: Angry ("where is my mising property". ), Suspicious, Anxious, Irritable Affect: Appropriate Patient Behavior: Aggressive, Suspicious, Talkative, Cooperative Speech Pattern: Perseverating Voice Loudness: Moderately Loud Thought Process: Tangential, Disorganized, Disoriented Thought Disorder: Not Present Hallucinations: None, Denies Suicidal Ideation: None, Denies, No Plan Homicidal Ideation: Denies, No Plan Insight/Judgement: Impaired Sleep: Poorly Appetite: Good Muscle strength/Tone: Mild Hypertonicity Gait/Station: Deferred
--- NOTE | 2017-11-07 20:39 | PN ---
Progress Note, Physician Chief Complaint: client last seen by Dr Martinez for consult on 10-16-17 for impulsive and aggressiveness in ICU. Improvement noted on zyprexia 2.5mg po bid. - Current Medication List Current Medications: Active Medications Acetaminophen (Tylenol Oral Solution -) 650 mg GT Q6H PRN PRN Reason: FEVER OR PAIN Last Admin: 10/30/17 23:15 Dose: 650 mg Amiodarone HCl (Cordarone -) 200 mg PEG DAILY [facility] Last Admin: 11/07/17 11:20 Dose: 200 mg Amlodipine Besylate (Norvasc -) 2.5 mg PEG DAILY [facility] Last Admin: 11/07/17 11:20 Dose: 2.5 mg Folic Acid (Folic Acid -) 1 mg GT DAILY [facility] Last Admin: 11/07/17 11:20 Dose: 1 mg Heparin Sodium (Porcine) (Heparin -) 5,000 unit SQ BID [facility] Last Admin: 11/07/17 11:20 Dose: 5,000 unit Metoprolol Tartrate (Lopressor -) 50 mg PEG BID [facility] Last Admin: 11/07/17 11:20 Dose: 50 mg Nystatin (Nystatin Oral Suspension -) 500,000 units PO Q6HPO [facility] Last Admin: 11/07/17 19:00 Dose: 500,000 units Olanzapine (Zyprexa -) 2.5 mg PO BID [facility] Last Admin: 11/07/17 11:20 Dose: 2.5 mg Torsemide (Demadex -) 10 mg PO DAILY [facility] Last Admin: 11/07/17 11:21 Dose: 10 mg - Objective Vital Signs: Vital Signs Temperature 98.0 F 11/07/17 19:00 Pulse Rate 71 11/07/17 19:00 Respiratory Rate 18 11/07/17 19:00 Blood Pressure 127/76 11/07/17 19:00 O2 Sat by Pulse Oximetry (%) 98 11/07/17 09:00 Psychiatric: Yes: Other (SEE MENTAL STATUS EXAM>) Labs: CBC, BMP 11/06/17 07:15 11/06/17 07:15 INR, PTT INR 1.11 (0.82-1.09) 10/15/17 21:16 Problem List - Problems (1) Agitation Code(s): R45.1 - RESTLESSNESS AND AGITATION Assessment/Plan Client endorsed poor sleep and has diurnal rythm of mood. Recommends 1. discontinue olanzapine 2.5mg po bid 2. titrate olanzapine to 2.5 mg in the am and Olanzapine 5mg at night for sleep and nighttime restlessness. 3. 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 4. Social service evaluation for housing disposition, stated "i was evicted from my [place], [place] home".
[2017-11-08] MEDS: NYSTATIN 500,000 UNITS/5 ML SUSPENSION PO SCH ×3 (00:15→12:08)
[2017-11-08] MEDS ORDERED: PT OWN MED DRAWER 7, Y5N ONE (09:46)
[2017-11-08] MEDS: OLANZapine 2.5 MG TABLET PO SCH (09:48)
[2017-11-08] MEDS: FOLIC ACID 1 MG TABLET (FP) GT SCH (09:48)
[2017-11-08] MEDS: AMIODARONE HCL 200 MG TABLET (FP) PEG SCH (09:48)
[2017-11-08] MEDS: amLODIPine BESYLATE 2.5 MG TABLET (FP) PEG SCH (09:48)
[2017-11-08] MEDS: METOPROLOL TARTRATE 50 MG TABLET (FP) PEG SCH (09:48)
[2017-11-08] MEDS: TORSEMIDE 10 MG TABLET PO SCH (09:48)
[2017-11-08] MEDS: HEPARIN NA (PORCINE) 5,000 UNITS/ML 1ML VIAL SQ SCH (09:48)
--- NOTE | 2017-11-08 11:59 | PN ---
Progress Note, Physician History of Present Illness: No complaints. - Current Medication List Current Medications: Active Medications Acetaminophen (Tylenol Oral Solution -) 650 mg GT Q6H PRN PRN Reason: FEVER OR PAIN Last Admin: 10/30/17 23:15 Dose: 650 mg Amiodarone HCl (Cordarone -) 200 mg PEG DAILY [facility] Last Admin: 11/08/17 09:48 Dose: 200 mg Amlodipine Besylate (Norvasc -) 2.5 mg PEG DAILY [facility] Last Admin: 11/08/17 09:48 Dose: 2.5 mg Folic Acid (Folic Acid -) 1 mg GT DAILY [facility] Last Admin: 11/08/17 09:48 Dose: 1 mg Heparin Sodium (Porcine) (Heparin -) 5,000 unit SQ BID [facility] Last Admin: 11/08/17 09:48 Dose: 5,000 unit Metoprolol Tartrate (Lopressor -) 50 mg PEG BID [facility] Last Admin: 11/08/17 09:48 Dose: 50 mg Nystatin (Nystatin Oral Suspension -) 500,000 units PO Q6HPO [facility] Last Admin: 11/08/17 06:05 Dose: 500,000 units Olanzapine (Zyprexa -) 2.5 mg PO BID [facility] Last Admin: 11/08/17 09:48 Dose: 2.5 mg Torsemide (Demadex -) 10 mg PO DAILY [facility] Last Admin: 11/08/17 09:48 Dose: 10 mg - Objective Vital Signs: Vital Signs Temperature 97.5 F L 11/08/17 07:00 Pulse Rate 91 H 11/08/17 07:00 Respiratory Rate 18 11/08/17 07:00 Blood Pressure 135/86 11/08/17 07:00 O2 Sat by Pulse Oximetry (%) 98 11/07/17 21:00 Constitutional: Yes: No Distress, Calm Neck: Yes: Supple Cardiovascular: Yes: Regular Rate and Rhythm Respiratory: Yes: Regular, Diminished Gastrointestinal: Yes: Normal Bowel Sounds, Soft Edema: No Labs: CBC, BMP 11/06/17 07:15 11/06/17 07:15 INR, PTT INR 1.11 (0.82-1.09) 10/15/17 21:16 Problem List - Problems (1) Acute and chronic respiratory failure Code(s): J96.20 - ACUTE AND CHR RESP FAILURE, UNSP W HYPOXIA OR HYPERCAPNIA Qualifiers: Respiratory failure complication: hypoxia and hypercapnia Qualified Code(s) : J96.21 - Acute and chronic respiratory failure with hypoxia; J96.22 - Acute and chronic respiratory failure with hypercapnia; J96.22 - Acute and chronic respiratory failure with hypercapnia; J96.22 - Acute and chronic respiratory failure with hypercapnia (2) Agitation Code(s): R45.1 - RESTLESSNESS AND AGITATION (3) Acute kidney injury Code(s): N17.9 - ACUTE KIDNEY FAILURE, UNSPECIFIED (4) Alkaline phosphatase elevation Code(s): R74.8 - ABNORMAL LEVELS OF OTHER SERUM ENZYMES (5) Anemia Code(s): D64.9 - ANEMIA, UNSPECIFIED Qualifiers: Anemia type: unspecified type Qualified Code(s): D64.9 - Anemia, unspecified (6) Paroxysmal atrial fibrillation Code(s): I48.0 - PAROXYSMAL ATRIAL FIBRILLATION (7) Status post insertion of percutaneous endoscopic gastrostomy (PEG) tube Code(s): Z93.1 - GASTROSTOMY STATUS (8) Acute diastolic heart failure Code(s): I50.31 - ACUTE DIASTOLIC (CONGESTIVE) HEART FAILURE (9) Fungemia Code(s): B49 - UNSPECIFIED MYCOSIS Assessment/Plan 1. Fungemia 2. Paroxysmal atrial fibrillation [id number] score of 2, likely not an ideal candidate for emt intermediate anticoagulation 3. History of acute hypoxic respiratory failure, post tracheotomy since decannulated 4. History of cavitating pneumonia, MSSA bacteremia, post septic shock no evidence of endocarditis by ALISA criteria 5. History of diastolic LV dysfunction with class I-II NYHA congestive heart failure, compensated/euvolemic 6. History of osteomyelitis T9-T10 discitis 7. History of loculated pleural effusion post chest tube insertion 8. History of alcohol dependence 9. Acute on chronic kidney insufficiency referable to [facility] improved 10. Anemia 11. Sigmoid diverticulosis PLAN: 1. Continue Lopressor 50 bid 2. Continue Amiodarone 200 qd 3. Continue Norvasc 2.5 qd 4. Defer emt intermediate A/C considering his presentation and co-morbidities 5. Consider transfusion to maintain Hgb equal or > 8.0 6. Completed antifungal and antibiotic course as per ID service 7. Tracheostomy was decannulated and patient is comfortable, no longer on enteral feeds 8. DVT and GI prophylaxis 9. Diet advanced as tolerated and now off PEG, will require removal 10. Discharge planning in progress
[2017-11-08 15:34] VITALS: BP 132/79; PULSE 67; TEMP 98.2
--- NOTE | 2017-11-08 15:52 | PN ---
Progress Note, Physician History of Present Illness: Pt seen and examined at bedside. He is awake and alert. He denies shortness of breath. - Objective Vital Signs: Vital Signs Temperature 98.2 F 11/08/17 13:00 Pulse Rate 67 11/08/17 13:00 Respiratory Rate 20 11/08/17 13:00 Blood Pressure 132/79 11/08/17 13:00 O2 Sat by Pulse Oximetry (%) 98 11/08/17 09:00 Constitutional: Yes: Calm Eyes: Yes: Conjunctiva Clear HENT: Yes: Atraumatic Cardiovascular: Yes: S1, S2 Respiratory: Yes: CTA Bilaterally Gastrointestinal: Yes: Normal Bowel Sounds, Soft Genitourinary: Yes: WNL Edema: No Neurological: Yes: Oriented Psychiatric: Yes: Oriented Labs: CBC, BMP 11/06/17 07:15 11/06/17 07:15 INR, PTT INR 1.11 (0.82-1.09) 10/15/17 21:16 Problem List - Problems (1) Acute and chronic respiratory failure Code(s): J96.20 - ACUTE AND CHR RESP FAILURE, UNSP W HYPOXIA OR HYPERCAPNIA Qualifiers: Respiratory failure complication: hypoxia and hypercapnia Qualified Code(s) : J96.21 - Acute and chronic respiratory failure with hypoxia; J96.22 - Acute and chronic respiratory failure with hypercapnia; J96.22 - Acute and chronic respiratory failure with hypercapnia; J96.22 - Acute and chronic respiratory failure with hypercapnia (2) Agitation Code(s): R45.1 - RESTLESSNESS AND AGITATION (3) Atrial flutter by electrocardiogram Code(s): I48.92 - UNSPECIFIED ATRIAL FLUTTER (4) Respiratory distress Code(s): R06.03 - ACUTE RESPIRATORY DISTRESS (5) Acute kidney injury Code(s): N17.9 - ACUTE KIDNEY FAILURE, UNSPECIFIED (6) Anemia Code(s): D64.9 - ANEMIA, UNSPECIFIED Qualifiers: Anemia type: unspecified type Qualified Code(s): D64.9 - Anemia, unspecified Assessment/Plan Impression 1. ALEXANDRA 2. fluid overload 3. hypoalbuminemia 4. respiratory failure requiring intubation 5. anemia 6. etoh abuse 7. fevers 8. hypokalemia 9. pleural effusion 10. hypernatremia resolved 11. GI bleed 12. rash 13. a flutter 14. fungemia 15. hyponatremia Plan - cont current meds - avoid nsaids - will see in office - ALEXANDRA likely from [facility] that is slowly resolving Dr Peres
== END 2017-11-08 15:04 | DRG 208 ==
LOC: JER 20:17 → JERBED 22:04 → J5S 10-16 04:32 → JICU 10-17 20:35 → J5S 10-18 21:39
PROVIDERS: ADMIT Family Medicine; ATTEND Family Medicine
PROC: 5A1945Z Respiratory Ventilation, 24-96 Consecutive Hours (ICD-10-PCS; principal; 2017-10-15)
PROC: 30233H1 Transfusion of Nonautologous Whole Blood into Peripheral Vein, Percutaneous Approach (ICD-10-PCS; 2017-10-16)
PROC: 0BP1XFZ Removal of Tracheostomy Device from Trachea, External Approach (ICD-10-PCS; 2017-10-28)
PROC: 0DJD8ZZ Inspection of Lower Intestinal Tract, Via Natural or Artificial Opening Endoscopic (ICD-10-PCS; 2017-11-04)
PROC: 30233H1 Transfusion of Nonautologous Whole Blood into Peripheral Vein, Percutaneous Approach (ICD-10-PCS; 2017-11-04)
DX: J96.21 Acute and chronic respiratory failure with hypoxia (principal); I50.33 Acute on chronic diastolic (congestive) heart failure; N17.0 Acute kidney failure with tubular necrosis; E87.0 Hyperosmolality and hypernatremia; M46.24 Osteomyelitis of vertebra, thoracic region; J95.03 Malfunction of tracheostomy stoma; E87.1 Hypo-osmolality and hyponatremia; Z99.11 Dependence on respirator [ventilator] status; I13.0 Hypertensive heart and chronic kidney disease with heart failure and stage 1 through stage 4 chronic kidney disease, or unspecified chronic kidney disease; B37.89 Other sites of candidiasis; R78.81 Bacteremia; B37.0 Candidal stomatitis; I48.92 Unspecified atrial flutter; J95.09 Other tracheostomy complication; N18.9 Chronic kidney disease, unspecified; D63.1 Anemia in chronic kidney disease; E87.70 Fluid overload, unspecified; E87.6 Hypokalemia; I48.0 Paroxysmal atrial fibrillation; E83.42 Hypomagnesemia; Z93.1 Gastrostomy status; A49.01 Methicillin susceptible Staphylococcus aureus infection, unspecified site; Z87.891 Personal history of nicotine dependence; H11.32 Conjunctival hemorrhage, left eye; R45.1 Restlessness and agitation; S80.812A Abrasion, left lower leg, initial encounter; W06.XXXA Fall from bed, initial encounter; Y93.89 Activity, other specified; Y92.122 Bedroom in nursing home as the place of occurrence of the external cause; Y99.8 Other external cause status; R33.9 Retention of urine, unspecified; K25.9 Gastric ulcer, unspecified as acute or chronic, without hemorrhage or perforation; R32 Unspecified urinary incontinence; E88.09 Other disorders of plasma-protein metabolism, not elsewhere classified; R21 Rash and other nonspecific skin eruption; F10.20 Alcohol dependence, uncomplicated; K57.30 Diverticulosis of large intestine without perforation or abscess without bleeding; Y83.8 Other surgical procedures as the cause of abnormal reaction of the patient, or of later complication, without mention of misadventure at the time of the procedure; K64.8 Other hemorrhoids
CPT/HCPCS: 36415; 36430; 36511; 36600; 70450-TC; 71010-TC; 74230-TC; 80048; 80053; 80076; 81003; 81015; 82272; 82375; 82436; 82550; 82607; 82728; 82746; 82784; 82803; 83050; 83540; 83550; 83605; 83615; 83735; 83880; 84100; 84133; 84155; 84165; 84300; 84484; 85025; 85027; 85044; 85610; 86140; 86334; 86850; 86900; 86901; 86922; 87040; 87070; 87086; 87106; 87205; 90670; 90688; 92611-GN; 93005; 93010; 93306-TC; 94002; 94640; 97116-GP; 97161-GP; 99285-25; G0480; J0637; J1644; P9038; P9058

== ENCOUNTER 2017-12-05 07:34 | Day surgery (SDC) | payer OTHER ==
[2017-12-05 08:18] VITALS: BMI 24.9
[2017-12-05] MEDS ORDERED: PROPOFOL 20 ML ONE ×2 (08:37)
--- NOTE | 2017-12-05 08:57 | PROC ---
Endoscopy Procedure Endoscopy procedure completed. Please see scanned procedure report.
[2017-12-05 09:13] VITALS: TEMP 97.9
[2017-12-05 10:34] VITALS: BP 137/84; PULSE 77
== END 2017-12-05 10:35 ==
LOC: JASU-ENDO 07:34
PROVIDERS: ATTEND Internal Medicine Gastroenterology
PROC: 0DP64UZ Removal of Feeding Device from Stomach, Percutaneous Endoscopic Approach (ICD-10-PCS; principal; 2017-12-05 09:00)
DX: Z45.89 Encounter for adjustment and management of other implanted devices (principal)